=== PATIENT | female | born 1960 | race African-American/Black ===

== ENCOUNTER → 2016-06-22 | Day surgery (SDC) | payer MEDICARE, OTHER ==
[~2016-06-22] MED LIST: AMLO5TAB4 PO; ASPI-482 PO; ATOR40TA59 PO; CALC667C6 PO; CARV25TA PO; ESMOLOL 100 MG/10 ML VIAL. IV ONE; FURO-68 PO; HYDR-2868 PO; INSU100V13 SQ; IV NORMAL SALINE 1000ML BAG 1,000 ML IV ONE; IV RINGERS,LACTATED 1000ML 1,000 ML IV ONE; LOSA100T6 PO; METO10TA81 PO; OXYC5CAP3 PO; PANT40TA5 PO; PREG150C PO; PROPOFOL 20 ML IV ONE; SERT100T8 PO; hydrALAZINE 20 MG/ML VIAL. ONE
--- NOTE | 2016-06-22 10:18 | PDOC1 ---
HISTORY & PHYSICAL H&P Raven Ruiz [id number] 1960 06/19/2016 12:10 PM 06/07 [facility], [facility] OUR PATIENTS COM[facility] FIRST [address] [place], [place] [id number] Ph. [phone] Patient: Raven Ruiz Date of : 1960 Date: 06/19/2016 12:10 PM Historian: daughter Visit Type: Consult This 55 year old female presents for Abdominal pain, vomiting, diarrhea and other. History of Present Illness: 1. Abdominal pain Duration is 4 Months. Location is epigastric. The patient describes it as bloating, gnawing and sharp. Context: no pattern noted. Denies aggravating factors. Denies relieving factors. Additional information: Patient had abd pain since January. Was admitted to [facility] had abd sono, Hida scan and had very ejection fraction. Also had cholecystectomy and normal operative cholangiogram. 2. vomiting The patient's daughter describes it as clear fluid and mucus. Associated symptoms include abdominal pain and bloating. Pertinent negatives include blood in stool, vomiting and weight loss. Additional information: Has frequent episodes of vomiting. Has diabetes and has been on dialysis.. 3. diarrhea The patient's daughter describes it as loose and watery. It occurs randomly. Associated symptoms include abdominal pain, bloating and change in appetite. Pertinent negatives include blood in stool, vomiting and weight loss. Additional information: Has episodes of diarrhea periodically. 4. other Was in [facility] ER for abdominal pain and had unremarkable lab work and was advised to follow up with PCP and to see a pharmacy technician inpatient. No ct or sonogram done at [facility]. INTAKE COMMENTS: Intake Comments: Nurses Notes: Pt states she is here today with complaints of abdominal pains pt says she has had this issue now since after Thanksgiving, pt goes on to say she has vomiting/ diarrhea symptoms as well pt says the symptoms all started around the same time pt has had a Colonoscopy procedure Performed pt is uncertain of the date and year. 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, with long-term current use of insulin 02/17/2016 Essential hypertension 02/17/2016 Hypertensive kidney disease, stage 5 chronic kidney disease or end stage renal disease 02/17/2016 PAST MEDICAL/SURGICAL HISTORY (Detailed) Disease/disorder Onset Date Management Date Comments Cholecystectomy Asthma, mild persistent Cataract removal 2012 (both eyes) Coronary artery disease Diabetes type 2 with ESRD on insulin Due to ESRD/Fe deficency ESRD fistula LUE September 2015 GERD Hyperlipidemia Hypertension hypertensive renal disease with ESRD Dialysis since October 2015 partial hyst with ovaries remaining Stroke L sided weakness at 53 yo Medications (Active): Started Medication Directions Instruction Stopped 02/19/2016 Aspir-81 81 mg tablet,delayed release take 1 tablet by oral route every day 02/19/2016 atorvastatin 40 mg tablet take 1 tablet by oral route every day 05/14/2016 Coreg 25 mg tablet take 1 tablet by oral route 2 times every day with food 05/18/2016 hydralazine 50 mg tablet take 1 tablet by oral route 2 times every day with food 05/18/2016 Levemir FlexTouch 100 unit/mL (3 mL) subcutaneous insulin pen inject 10 by subcutaneous route at HS 05/14/2016 losartan 100 mg tablet take 1 tablet by oral route every day 06/12/2016 Lyrica 50 mg capsule take 1 capsule by oral route 2 times every day 02/19/2016 Nitrostat 0.[address] 1 tablet by sublingual route at the 1st sign of attack; may repeat every 5 min until relief; if pain persists after 3 tablets in 15 min, prompt medical attention is recommended 02/19/2016 Norvasc 5 mg tablet take 1 tablet by oral route every day 02/19/2016 Novolog Flexpen 100 unit/mL subcutaneous inject 10 by subcutaneous route as per insulin sliding scale protocol 06/19/2016 oxycodone 5 mg tablet take 1 tablet by oral route every 4 - 6 hours as needed 02/19/2016 pantoprazole 40 mg tablet,delayed release take 1 tablet by oral route every day 02/19/2016 sertraline 100 mg tablet take 1 tablet by oral route every day Allergies: Ingredient Reaction Medication Name Comment METFORMIN LISINOPRIL HYDROMORPHONE HCL Dilaudid AMITRIPTYLINE REVIEW OF SYSTEMS System Neg/Pos Details Constitutional Negative Chills, fever, malaise and weight loss. ENMT Negative Sore throat. Eyes Negative Double vision. Respiratory Negative Dyspnea and wheezing. Cardio Negative Chest pain and irregular heartbeat/palpitations. GI Positive Abdominal pain, Bloating, Change in appetite, See HPI. GI Negative Blood in stool, see HPI and vomiting. Negative Dysuria and hematuria. Endocrine Negative Cold intolerance and heat intolerance. Psych Negative Anxiety. Integumentary Negative Hives and rash. MS Negative Joint pain. Ced/Lymph Negative Easy bleeding and easy bruising. Allergic/Immuno Negative Food allergies. VITAL SIGNS Time BP mm/Hg Pulse /min Resp /min Temp F Ht ft Ht in Ht cm Wt lb Wt kg BMI kg/ m2 BSA m2 O2 Sat% 12:11 PM 82 16 5.0 2.50 158.75 176.40 80.014 31.75 98 MEASURED BY Time Measured by 12:11 PM Deloris Pierceman PHYSICAL EXAM: Exam Findings Details Constitutional Normal Well developed. Eyes Normal Conjunctiva - Right: Normal, Left: Normal. Sclera - Right: Normal, Left: Normal. Nasopharynx Normal Lips/teeth/gums - Normal. Neck Exam Normal Inspection - Normal. Thyroid gland - Normal. Respiratory Normal Inspection - Normal. Auscultation - Normal. Cardiovascular Normal Regular rate and rhythm. No murmurs, gallops, or rubs. Vascular Normal Pulses - Carotids: Normal, Femoral: Normal, Dorsalis pedis: Normal. Abdomen Normal Inspection - Normal. Anterior palpation - No guarding. No abdominal tenderness. No hepatic enlargement. No splenic enlargement. No hernia. No Ascites. Skin Normal Inspection - Normal. Extremity Normal No edema. Psychiatric Normal Oriented to time, place, person, and situation. Appropriate mood and effect. Assessment/Plan # Detail Type Description 1. Assessment Pain of upper abdomen (R10.10). Impression Possible causes includes PUD, Gastroparesis or CBD stone.. Patient Plan schedule EGD at [facility]. If not conclusive will give a trial of prokinetics. Plan Orders Further diagnostic evaluations ordered today include(s) EGD to be performed today. She is to schedule a follow-up visit with Ulises Ng MD upon completion of work-up 2. Assessment Common bile duct stone (K80.50). Patient Plan Schedule MRCP Plan Orders Further diagnostic evaluations ordered today include(s) Magnetic resonance cholangiopancreatography (MRCP) to be performed today. Electronically signed by: Ulises Ng MD 06/19/2016 01:21 PM Document generated by: Ulises Ng 06/19/2016 01:21 PM Yazmin Man MD, Family Practice; Margarito Arthur MD Internal Medicine; Ibis Lynn MD, Internal Medicine; Saravanan Ng MD Internal Medicine; Ulises Ng MD, Gastroenterology; Amilcar Perea MD, Rheumatology, S. Trae Brunner, Physical Medicine/[place] Audrey Damon APRN ------ 06/22/2016 Patient seen and examined. No change in history and physical. ULISES NG MD Jun 22, 2016 10:18
--- NOTE | 2016-06-22 10:46 | PDOC4 ---
GI OP Report - Dr. Dang Date/Time DATE: 06/22/16 TIME: 10:45 Attending Physician Ulises Dang MD Referring Physician Indications Epigastric abdominal pain Pre-Op See the Anesthesia note for documentation of the administered medications Procedures Upper GI endoscopy Findings - Normal esophagus. - Normal stomach. - Normal examined duodenum. - No specimens collected Plan - Discharge patient to home. - Patient has a contact number available for emergencies. The signs and symptoms of potential delayed complications were discussed with the patient. Return to normal activities tomorrow. Written discharge instructions were provided to the patient. - Resume regular diet. - Continue present medications. - Use metoclopramide 5 mg PO TID; 30 min AC. - Return to my office after studies are complete. ULISES DANG MD Jun 22, 2016 10:46
[2016-06-22 11:20] VITALS: BP 175/82
== END | disposition home or self-care (01) ==
LOC: SURG 09:11
PROVIDERS: ATTEND Internal Medicine Gastroenterology
DX: R10.13 Epigastric pain (principal); I63.9 Cerebral infarction, unspecified; G45.9 Transient cerebral ischemic attack, unspecified; I50.9 Heart failure, unspecified; I25.10 Atherosclerotic heart disease of native coronary artery without angina pectoris; I10 Essential (primary) hypertension; J45.909 Unspecified asthma, uncomplicated; Z90.49 Acquired absence of other specified parts of digestive tract; K21.9 Gastro-esophageal reflux disease without esophagitis; E11.9 Type 2 diabetes mellitus without complications; F41.9 Anxiety disorder, unspecified; F32.9 Major depressive disorder, single episode, unspecified; F10.99 Alcohol use, unspecified with unspecified alcohol-induced disorder; D64.9 Anemia, unspecified; R34 Anuria and oliguria; Z99.2 Dependence on renal dialysis; N28.9 Disorder of kidney and ureter, unspecified
CPT/HCPCS: 43235; J0360; J2704; J3490

== ENCOUNTER → 2016-06-23 | Outpatient (CLI) | payer MEDICARE, OTHER ==
[2016-06-22 11:20] VITALS: BP 175/82
[~2016-06-23] MED LIST changes: -ESMOLOL 100 MG/10 ML VIAL. IV ONE; -IV NORMAL SALINE 1000ML BAG 1,000 ML IV ONE; -IV RINGERS,LACTATED 1000ML 1,000 ML IV ONE; -PROPOFOL 20 ML IV ONE; -hydrALAZINE 20 MG/ML VIAL. ONE
--- NOTE | 2016-06-23 13:49 | RAD ---
MRCP, 06/23/2016: History: Abdominal pain, prior cholecystectomy Imaging was performed in axial and coronal planes arising a variety of imaging sequences including T2 weighted, fat-suppressed T2 weighted and opposed phase gradient echo sequences. 2-D and 3-D MRCP sequences were performed with and without respiratory gating with 3-D reconstructions produced. Many of the MRCP sequences are compromised due to patient motion artifact. The patient was unable to tolerate repeat scanning due to nausea and claustrophobia. The bile ducts are not dilated. No biliary ductal filling defect is seen. The pancreatic duct is of normal caliber. No abnormal perihepatic fluid collection is seen. The visualized portions of the liver, spleen, pancreas and both kidneys are unremarkable. IMPRESSION: 1. Status post cholecystectomy. 2. Suboptimal exam revealing no biliary tract abnormality.
== END | disposition home or self-care (01) ==
LOC: MRI 15:35
PROVIDERS: ATTEND Internal Medicine Gastroenterology
DX: R10.9 Unspecified abdominal pain (principal); Z90.49 Acquired absence of other specified parts of digestive tract
CPT/HCPCS: 74181

== ENCOUNTER 2016-07-16 15:43 | Inpatient (IN) | payer MEDICARE, OTHER ==
[~2016-07-16] VITALS: Ht 157.5 cm; Wt 84.0 kg
[~2016-07-16 15:43] MED LIST changes: +AMLO10TA2 PO; +CLON0.2T PO; +DIPH25CA58 PO; +FOLI0.8T3 PO; +HYDR100T24 PO; +ONDA4TAB12 PO; +POLY17PO5 PO; +SERT100T PO
--- NOTE | 2016-07-16 18:48 | EKG ---
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
[2016-07-16 18:57] LABS: BASO # 0.1 x10^3/uL (0.0-0.2); BASO % 1 % (0-3); EOS % 2 % (0-3); HEMATOCRIT 32.1 % (36.0-47.0); HEMOGLOBIN 10.7 g/dL (12.0-15.5); LYMPH # 1.1 x10^3/uL (1.0-4.8); LYMPH % 22 % (24-48); MEAN CORPUSCULAR HEMOGLOBIN 29 pg (25-35); MEAN CORPUSCULAR HGB CONC 33 g/dL (31-37); MEAN CORPUSCULAR VOLUME 88 fL (79-100); MONO % 8 % (0-9); NEUT % 67 % (31-73); PLATELET COUNT 304 x10^3/uL (140-400); RED BLOOD COUNT 3.65 x10^6/uL (3.50-5.40)
[2016-07-16] MEDS ORDERED: FENTANYL PF 100 MCG/2 ML VIAL. IV ONE (19:00)
[2016-07-16] MEDS ORDERED: ONDANSETRON PF 4 MG/2 ML VIAL. IV ONE (19:00)
[2016-07-16] MEDS ORDERED: IV NORMAL SALINE 500ML BAG 250 ML IV ONE (19:00)
[2016-07-16] MEDS ORDERED: IV NORMAL SALINE 250ML 250 ML IV ONE (19:00)
[2016-07-16 19:12] LABS: ALBUMIN 3.4 g/dL (3.4-5.0); ALBUMIN/GLOBULIN RATIO 1.1 (1.0-1.7); CALCIUM 9.3 mg/dL (8.5-10.1); GFR 31.4; TOTAL BILIRUBIN 0.4 mg/dL (0.2-1.0); TOTAL PROTEIN 6.5 g/dL (6.4-8.2)
[2016-07-16] MEDS ORDERED: ONDANSETRON PF 4 MG/2 ML VIAL. IV PRN (21:15)
[2016-07-16] MEDS ORDERED: IV NORMAL SALINE 1000ML BAG 1,000 ML IV SCH (21:15)
[2016-07-16] MEDS ORDERED: FENTANYL PF 100 MCG/2 ML VIAL. IV PRN (21:15)
--- NOTE | 2016-07-16 21:18 | PHYS DOC ---
Past Medical History Past Medical History: Alcoholism, Anemia, Asthma, CHF, Diabetes-Type II, High Cholesterol, Renal Disease Additional Past Medical Histor: HEPATITIS C Past Surgical History: Hysterectomy, Other Additional Past Surgical Histo: LEFT ARM A/V FISTULA Alcohol Use: None Drug Use: None Adult General Chief Complaint Chief Complaint: ABDOMINAL PAIN HPI HPI This is a 56-year-old female who presents with ongoing right upper quadrant pain that she has had before. Patient had her gallbladder removed back in January but is still having persisting pain since that time. Patient was recently admitted for malignant hypertension and right upper quadrant abdominal pain. Today her blood pressure is again elevated at 220/90 and she is still having continued right upper quadrant pain despite taking her pain medications at home. Patient has been told to follow-up with a pain specialist for her symptoms but has yet to do this. She has also had a full GI workup. She reports her pain right now is localized to her right upper quadrant primarily and rated an 8 out of 10. She reports her last bowel movement was yesterday and essentially normal. Review of Systems Review of Systems Constitutional: Denies fever or chills [] Eyes: Denies change in visual acuity, redness, or eye pain [] HENT: Denies nasal congestion or sore throat [] Respiratory: Denies cough or shortness of breath [] Cardiovascular: No additional information not addressed in HPI [] GI: Has abdominal pain, has nausea, denies vomiting, denies bloody stools or diarrhea [] : Denies dysuria or hematuria [] Musculoskeletal: Denies back pain or joint pain [] Integument: Denies rash or skin lesions [] Neurologic: Denies headache, focal weakness or sensory changes [] Endocrine: Denies polyuria or polydipsia [] Current Medications Current Medications Current Medications Medications (Trade) Dose Ordered Sig/Srinath Start Time Stop Time Status Last Admin Dose Admin Fentanyl Citrate 50 mcg 50 mcg 1X ONCE 07/16/16 19:00 07/16/16 19:01 DC 07/16/16 19:16 50 MCG Ondansetron HCl 4 mg 4 mg 1X ONCE 07/16/16 19:00 07/16/16 19:01 DC 07/16/16 19:09 4 MG Sodium Chloride (Iv Sodium Chloride 0.9% 250ml) 250 ml @ 250 mls/hr 1X ONCE 07/16/16 19:00 07/16/16 19:00 DC Sodium Chloride (Iv Sodium Chloride 0.9% 500ml Bag) 250 ml @ 250 mls/hr 1X ONCE 07/16/16 19:00 07/16/16 19:59 DC 07/16/16 19:08 250 MLS/HR Allergies Allergies Allergies Coded Allergies Type Severity Reaction Last Updated Verified amitriptyline Allergy Intermediate 06/22/16 Yes hydromorphone Allergy Intermediate 06/22/16 Yes lisinopril Allergy Intermediate 06/22/16 Yes metformin Allergy Intermediate 06/22/16 Yes I S O L A T I O N *CONTACT* Allergy Unknown 07/03/16 Yes Physical Exam Physical Exam Constitutional: Well developed, well nourished, no acute distress, non-toxic appearance. [] HENT: Normocephalic, atraumatic, bilateral external ears normal, oropharynx moist, no oral exudates, nose normal. [] Eyes: PERRLA, EOMI, conjunctiva normal, no discharge. [] Neck: Normal range of motion, no tenderness, supple, no stridor. [] Cardiovascular:Heart rate regular rhythm, no murmur [] Lungs & Thorax: Bilateral breath sounds clear to auscultation [] Abdomen: Bowel sounds normal, soft, moderate tenderness to the RUQ but also generalized, no masses, no pulsatile masses. [] Skin: Warm, dry, no erythema, no rash. [] Back: No tenderness, no CVA tenderness. [] Extremities: No tenderness, no cyanosis, no clubbing, ROM intact, no edema. [] Neurologic: Alert and oriented X 3, normal motor function, normal sensory function, no focal deficits noted. [] Psychologic: Affect normal, judgement normal, mood normal. [] Current Patient Data Vital Signs Vital Signs Date Time Temp Pulse Resp B/P Pulse Ox O2 Delivery O2 Flow Rate FiO2 07/16/16 19:16 18 99 Room Air 07/16/16 17:09 98.6 64 218/94 98.6 Lab Values Laboratory Tests Test 07/16/16 18:45 White Blood Count 5.0x10^3/uL (4.0-11.0) Red Blood Count 3.65x10^6/uL (3.50-5.40) Hemoglobin 10.7g/dL (12.0-15.5) L Hematocrit 32.1% (36.0-47.0) L Mean Corpuscular Volume 88fL (79-100) Mean Corpuscular Hemoglobin 29pg (25-35) Mean Corpuscular Hemoglobin Concent 33g/dL (31-37) Red Cell Distribution Width 15.0% (11.5-14.5) H Platelet Count 304x10^3/uL (140-400) Neutrophils (%) (Auto) 67% (31-73) Lymphocytes (%) (Auto) 22% (24-48) L Monocytes (%) (Auto) 8% (0-9) Eosinophils (%) (Auto) 2% (0-3) Basophils (%) (Auto) 1% (0-3) Neutrophils # (Auto) 3.4x10^3uL (1.8-7.7) Lymphocytes # (Auto) 1.1x10^3/uL (1.0-4.8) Monocytes # (Auto) 0.4x10^3/uL (0.0-1.1) Eosinophils # (Auto) 0.1x10^3/uL (0.0-0.7) Basophils # (Auto) 0.1x10^3/uL (0.0-0.2) Sodium Level 138mmol/L (136-145) Potassium Level 3.0mmol/L (3.5-5.1) L Chloride Level 99mmol/L (98-107) Carbon Dioxide Level 32mmol/L (21-32) Anion Gap 7 (6-14) Blood Urea Nitrogen 13mg/dL (7-20) Creatinine 2.0mg/dL (0.6-1.0) H Estimated GFR (Cockcroft-Gault) 31.4 BUN/Creatinine Ratio 7 (6-20) Glucose Level 131mg/dL (70-99) H Calcium Level 9.3mg/dL (8.5-10.1) Total Bilirubin 0.4mg/dL (0.2-1.0) Aspartate Amino Transferase (AST) 19U/L (15-37) Alanine Aminotransferase (ALT) 16U/L (14-59) Alkaline Phosphatase 104U/L (46-116) Total Protein 6.5g/dL (6.4-8.2) Albumin 3.4g/dL (3.4-5.0) Albumin/Globulin Ratio 1.1 (1.0-1.7) Lipase 64U/L (73-393) L Laboratory Tests 07/16/16 18:45 Laboratory Tests 07/16/16 18:45 EKG EKG EKG as interpreted by me shows sinus rhythm with a rate of 62 bpm. There are no acute ischemic findings on this EKG. Radiology/Procedures Radiology/Procedures [] Course & Med Decision Making Course & Med Decision Making Pertinent Labs and Imaging studies reviewed. (See chart for details) This 66-year-old female presents with ongoing abdominal pain will be admitted to the hospital for further evaluation and treatment. Multiple attempts to place an IV were made but were unsuccessful and the patient stated she would rather have a PICC line placed. In light of the fact that she had a PICC line placed on the last hospital admission this will be ordered and she'll be admitted to the hospital for pain control and better control of her blood pressure. Her case is discussed with the hospitalist, Dr. Dang, who agreed to admit the patient with renal consult. Patient does states she finished her entire dialysis appointment earlier today prior to arrival. Her labwork is unrevealing at this time. An order for a PICC line replaced upon admission was made. Upon my final reassessment, she is in no acute distress and her evening doses of blood pressure medications were ordered. Because this pain is similar to previous right upper quadrant pain she's had I do not see an indication at this time to perform any imaging Dragon Disclaimer Dragon Disclaimer This electronic medical record was generated, in whole or in part, using a voice recognition dictation system. Departure Departure Impression: Primary Impression: Malignant hypertension Additional Impression: RUQ abdominal pain Disposition: ADMITTED INPATIENT Admitting Physician: Saravanan Dang Condition: STABLE Referrals: ZAKI DANG MD (PCP) Problem Qualifiers MARTA CORRAL DO Jul 16, 2016 21:19
[2016-07-16 23:00] VITALS: BP 200/74
[2016-07-17] VITALS (8 sets, daily range): BP systolic 136–213; BP diastolic 48–74
[2016-07-17] MEDS ORDERED: CLONIDINE HCL 0.1 MG TABLET PO ONE (01:15)
[2016-07-17] MEDS: HYDROCODONE/APAP 5/325MG TABLET. PO PRN ×3 (01:20→22:57)
[2016-07-17 05:35] LABS: BASO % 1 % (0-3); EOS % 3 % (0-3); HEMATOCRIT 29.2 % (36.0-47.0); HEMOGLOBIN 9.6 g/dL (12.0-15.5); LYMPH % 24 % (24-48); MEAN CORPUSCULAR HEMOGLOBIN 30 pg (25-35); MEAN CORPUSCULAR HGB CONC 33 g/dL (31-37); MEAN CORPUSCULAR VOLUME 90 fL (79-100); MONO % 11 % (0-9); NEUT % 62 % (31-73); PLATELET COUNT 274 x10^3/uL (140-400); RED BLOOD COUNT 3.26 x10^6/uL (3.50-5.40); WHITE BLOOD COUNT 4.4 x10^3/uL (4.0-11.0)
[2016-07-17 05:45] LABS: CALCIUM 8.9 mg/dL (8.5-10.1); CREATININE 2.8 mg/dL (0.6-1.0); GFR 21.3
[2016-07-17 05:48] LABS: POTASSIUM 2.9 mmol/L (3.5-5.1)
[2016-07-17] MEDS ORDERED: POTASSIUM CHLORIDE 20 MEQ TABLET.ER. PO ONE (06:00)
[2016-07-17] MEDS: CARVEDILOL 12.5 MG TABLET PO SCH ×2 (08:35→18:02)
[2016-07-17] MEDS: CLONIDINE HCL 0.1 MG TABLET PO PRN ×2 (08:36→21:07)
[2016-07-17] MEDS ORDERED: AMLODIPINE BESYLATE 5 MG TABLET PO SCH (09:00)
[2016-07-17] MEDS ORDERED: POLYETHYLENE GLYCOL 3350 17 GM PACKET. PO SCH (09:30)
--- NOTE | 2016-07-17 10:06 | PDOC ---
Subjective: Subjective: Known to GI w/ chronic RUQ pain, readmitted w/ same and HTN. Objective: Vital Signs: Vital Signs Date Time Temp Pulse Resp B/P Pulse Ox O2 Delivery O2 Flow Rate FiO2 07/17/16 08:36 61 206/74 07/17/16 08:35 98 Room Air 07/17/16 07:00 98.2 18 98.2 Labs: Laboratory Tests Test 07/16/16 18:45 07/17/16 04:15 07/17/16 07:17 White Blood Count 5.0x10^3/uL 4.4x10^3/uL Red Blood Count 3.65x10^6/uL 3.26x10^6/uL Hemoglobin 10.7g/dL 9.6g/dL Hematocrit 32.1% 29.2% Mean Corpuscular Volume 88fL 90fL Mean Corpuscular Hemoglobin 29pg 30pg Mean Corpuscular Hemoglobin Concent 33g/dL 33g/dL Red Cell Distribution Width 15.0% 15.0% Platelet Count 304x10^3/uL 274x10^3/uL Neutrophils (%) (Auto) 67% 62% Lymphocytes (%) (Auto) 22% 24% Monocytes (%) (Auto) 8% 11% Eosinophils (%) (Auto) 2% 3% Basophils (%) (Auto) 1% 1% Neutrophils # (Auto) 3.4x10^3uL 2.7x10^3uL Lymphocytes # (Auto) 1.1x10^3/uL 1.0x10^3/uL Monocytes # (Auto) 0.4x10^3/uL 0.5x10^3/uL Eosinophils # (Auto) 0.1x10^3/uL 0.1x10^3/uL Basophils # (Auto) 0.1x10^3/uL 0.0x10^3/uL Sodium Level 138mmol/L 139mmol/L Potassium Level 3.0mmol/L 2.9mmol/L Chloride Level 99mmol/L 101mmol/L Carbon Dioxide Level 32mmol/L 31mmol/L Anion Gap 7 7 Blood Urea Nitrogen 13mg/dL 18mg/dL Creatinine 2.0mg/dL 2.8mg/dL Estimated GFR (Cockcroft-Gault) 31.4 21.3 BUN/Creatinine Ratio 7 Glucose Level 131mg/dL 111mg/dL Calcium Level 9.3mg/dL 8.9mg/dL Total Bilirubin 0.4mg/dL Aspartate Amino Transf (AST/SGOT) 19U/L Alanine Aminotransferase (ALT/SGPT) 16U/L Alkaline Phosphatase 104U/L Total Protein 6.5g/dL Albumin 3.4g/dL Albumin/Globulin Ratio 1.1 Lipase 64U/L Glucose (Fingerstick) 110mg/dL PE: GEN: NAD LUNGS: CTAB HEART: RRR ABD: NABS, S/ND, RUQ tenderness NEURO/PSYCH: A & O 3 A/P: RUQ pain, n/v -s/p cholecystectomy 01/2016, normal EGD 06/2016, unrevealing MRCP 06/2016, reports normal colonoscopy <10 years ago -h/o gastroparesis, on Reglan -abnormal CTA 07/03 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 Discussed possibility of feeding tube if she is unable to tolerate PO - she will consider. ALL GONZALEZ Jul 17, 2016 10:05
--- NOTE | 2016-07-17 10:53 | PDOC ---
Provider Note Provider Note Patient seen. History and Physical dictated. See dictation# [id number]. GAURAV DANG MD Jul 17, 2016 10:53
[2016-07-17] MEDS: LOSARTAN POTASSIUM 50 MG TABLET. PO SCH (12:08)
[2016-07-17] MEDS: SERTRALINE 50 MG TABLET. PO SCH (12:08)
[2016-07-17] MEDS: PANTOPRAZOLE 40 MG TABLET. PO SCH (12:08)
[2016-07-17] MEDS: HYDRALAZINE 50 MG TABLET PO SCH ×3 (12:09→21:07)
[2016-07-17] MEDS: METOCLOPRAMIDE 5 MG TABLET PO SCH ×2 (12:09→18:02)
[2016-07-17] MEDS: ASPIRIN ENTERIC COATED 81 MG TABLET.DR. PO SCH (12:09)
[2016-07-17] MEDS: CALCIUM ACETATE 667 MG CAPSULE PO SCH ×2 (12:09→18:01)
[2016-07-17] MEDS: OXYCODONE IR 5 MG TABLET. PO PRN ×3 (12:09→21:20)
[2016-07-17] MEDS: FOLIC/VIT B COMP W-C (RENAL) TABLET. PO SCH (12:09)
[2016-07-17] MEDS: LIDOCAINE (700MG/PATCH) PATCH. TD SCH (12:10)
--- NOTE | 2016-07-17 12:57 | RAD ---
3 views of the thoracic spine without comparison for pain in the lower back on and off for the past 2 years. Findings: There is no fracture or acute osseous or alignment abnormality of the thoracic spine. Mild degenerative changes are seen at T11-12. Intervertebral disc spaces appear well-maintained at all levels. Anterior osteophytes and posterior osteophytes are seen at the cervicothoracic junction. Impression: 1. No fracture or acute osseous or alignment abnormality of the thoracic spine. Mild degenerative changes are seen in the cervical thoracic junction as well as at T11-12.
--- NOTE | 2016-07-17 13:00 | RAD ---
3 views lumbar spine without comparison for low back pain on and off for 2 years. Findings: There are postsurgical changes of cholecystectomy. There is straightening of the normal lumbar lordosis. No fracture or acute osseous or alignment abnormality is identified. There is mild degenerative disc disease at T11-12, with anterior osteophytes and endplate sclerosis at T11. There is also mild narrowing of the L5-S1 intervertebral disc space, and there is likely moderate facet arthrosis at this level. Remaining intervertebral disc spaces appear well-maintained. Impression: 1. No fracture or acute osseous or alignment abnormality lumbar spine. 2. Multilevel degenerative changes as described. 3. Straightening of the normal lordosis.
--- NOTE | 2016-07-17 14:25 | PDOC2 ---
CONSULT Date of Consult Date of Consult DATE: 07/17/16 TIME: 14:21 Reason for Consult Reason for Consult: Renal Fialure Referring Physician Referring Physician: Dr Ng Identification/Chief Complaint Chief Complaint Abd Pain and malignant HTN Problems: Source Source: Chart review, Patient History of Present Illness Reason for Visit: as dictated Past Medical History Cardiovascular: CAD, CHF, HTN, Hyperlipidemia Pulmonary: Asthma CENTRAL NERVOUS SYSTEM: CVA GI: GERD, Other Heme/Onc: Anemia NOS Hepatobiliary: Hep A/B/C Psych: Anxiety, Depression Musculoskeletal: Osteoarthritis Renal/: Chronic renal failure Endocrine: Diabetes, Hyperparathyroidism Past Surgical History Past Surgical History: Cholecystectomy, Cataract Removal, Hysterectomy Family History Family History: Alcohol Abuse, Diabetes Social History ALCOHOL: none Drugs: None Lives: with Family Current Problem List Problem List Problems Medical Problems: (1) Hypertensive urgency Status: Acute (2) Malignant hypertension Status: Acute (3) RUQ abdominal pain Status: Acute Current Medications Current Medications Current Medications Fentanyl Citrate 50 mcg 50 mcg 1X ONCE IV Last administered on 07/16/16 19:16 ; Start 07/16/16 at 19:00; Stop 07/16/16 at 19:01; Status DC Sodium Chloride (Iv Sodium Chloride 0.9% 250ml) 250 ml @ 250 mls/hr 1X ONCE IV ; Start 07/16/16 at 19:00; Stop 07/16/16 at 19:00; Status DC Ondansetron HCl 4 mg 4 mg 1X ONCE IV Last administered on 07/16/16 19:09; Start 07/16/16 at 19:00; Stop 07/16/16 at 19:01; Status DC Sodium Chloride (Iv Sodium Chloride 0.9% 500ml Bag) 250 ml @ 250 mls/hr 1X ONCE IV Last administered on 07/16/16 19:08; Start 07/16/16 at 19:00; Stop at 19:59; Status DC Ondansetron HCl (Zofran) 4 mg PRN Q8HRS PRN IV NAUSEA/VOMITING; Start 07/16/16 at 21:15; Stop 07/17/16 at 21:14 Fentanyl Citrate 50 mcg 50 mcg PRN Q2HR PRN IV PAIN; Start 07/16/16 at 21:15; Stop 07/17/16 at 21:14 Sodium Chloride (Iv Sodium Chloride 0.9% 1000ml Bag) 1,000 ml @ 75 mls/hr [id number] IV ; Start 07/16/16 at 21:15; Stop 07/17/16 at 09:07; Status DC Carvedilol (Coreg) 25 mg BIDWMEALS PO Last administered on 07/17/16 08:35; Start 07/17/16 at 08:00 Amlodipine Besylate (Norvasc) 5 mg DAILY PO Last administered on 07/17/16 08: 36; Start 07/17/16 at 09:00; Stop 07/17/16 at 09:14; Status DC Clonidine HCl (Catapres) 0.2 mg 1X ONCE PO Last administered on 07/17/16 01: 20; Start 07/17/16 at 01:15; Stop 07/17/16 at 01:16; Status DC Clonidine HCl (Catapres) 0.1 mg PRN Q6HRS PRN PO SEE PARAMETERS Last administered on 07/17/16 08:36; Start 07/17/16 at 01:00 Acetaminophen/ Hydrocodone Bitart (Lortab 5/325) 1 tab PRN Q6HRS PRN PO PAIN Last administered on 07/17/16 08:35; Start 07/17/16 at 01:00 Potassium Chloride (Klor-Con) 40 meq 1X ONCE PO Last administered on 06:20; Start 07/17/16 at 06:00; Stop 07/17/16 at 06:01; Status DC Amlodipine Besylate (Norvasc) 10 mg DAILY PO ; Start 07/18/16 at 09:00 Aspirin (Ecotrin) 81 mg DAILY PO Last administered on 07/17/16 12:09; Start at 09:30 Atorvastatin Calcium (Lipitor) 40 mg HS PO ; Start 07/17/16 at 21:00 Calcium Acetate (Phoslo) 1,334 mg TIDWMEALS PO Last administered on 07/17/16 12:09; Start 07/17/16 at 12:00 Clonidine HCl (Catapres) 0.2 mg Q8HRS PO ; Start 07/17/16 at 14:00 Diphenhydramine HCl (Benadryl) 25 mg PRN Q6HRS PRN PO ITCHING; Start 07/17/16 at 09:00 Folic Acid/ Multivitamins/Vit B12 (Nephro-Donny) 1 tab DAILY PO Last administered on 07/17/16 12:09; Start 07/17/16 at 09:30 Metoclopramide HCl (Reglan) 5 mg TIDAC PO Last administered on 07/17/16 12:09 ; Start 07/17/16 at 11:30 Ondansetron HCl (Zofran Odt) 4 mg PRN Q8HRS PRN PO NAUSEA/VOMITING; Start 07/17 at 09:00 Pantoprazole Sodium (Protonix) 40 mg DAILYAC PO Last administered on 07/17/16 12:08; Start 07/17/16 at 09:30 Polyethylene Glycol (miraLAX PACKET) 17 gm BID PO ; Start 07/17/16 at 09:30; Stop 07/17/16 at 10:32; Status DC Non-Formulary Medication 25 mg BIDWMEALS PO ; Start 07/17/16 at 17:00; Status UNV Hydralazine HCl (Apresoline) 100 mg TID PO Last administered on 07/17/16 12:09 ; Start 07/17/16 at 09:30 Insulin Detemir (Levemir) 10 units QHS SQ ; Start 07/17/16 at 21:00 Losartan Potassium (Cozaar) 100 mg DAILY PO Last administered on 07/17/16 12: 08; Start 07/17/16 at 09:30 Oxycodone HCl (Roxicodone) 5 mg PRN QID PRN PO PAIN Last administered on 12:09; Start 07/17/16 at 09:30 Sertraline HCl (Zoloft) 100 mg DAILY PO Last administered on 07/17/16 12:08; Start 07/17/16 at 09:30 Lidocaine (Lidoderm) 1 patch DAILY TD Last administered on 07/17/16 12:10; Start 07/17/16 at 09:30 Gabapentin (Neurontin) 100 mg QHS PO ; Start 07/17/16 at 21:00 Active Scripts Active Miralax (Polyethylene Glycol 3350) 17 Gm Powd.pack 17 Gm PO BID Ondansetron Odt (Ondansetron) 4 Mg Tab.rapdis 4 Mg PO PRN Q8HRS PRN Hydralazine Hcl 100 Mg Tablet 1 Tab PO TID Nephro-Donny Tablet (Folic Acid/Vitamin B Comp W-C) 0.8 Mg Tablet 1 Tab PO DAILY Benadryl (Diphenhydramine Hcl) 25 Mg Capsule 25 Mg PO PRN Q6HRS PRN Clonidine Hcl 0.2 Mg Tablet 0.2 Mg PO Q8HRS Amlodipine Besylate 10 Mg Tablet 10 Mg PO DAILY Reported Zoloft (Sertraline Hcl) 100 Mg Tablet 1 Tab PO DAILY Pantoprazole Sodium 40 Mg Tablet.dr 1 Tab PO DAILY Reglan (Metoclopramide Hcl) 10 Mg Tablet 5 Mg PO TIDAC Oxycodone Hcl 5 Mg Capsule 1 Cap PO QID PRN Phoslo (Calcium Acetate) 667 Mg Capsule 1,334 Mg PO TIDWMEALS Losartan Potassium 100 Mg Tablet 100 Mg PO DAILY Levemir (Insulin Detemir) 100 Unit/1 Ml Vial 10 Unit SQ HS Coreg (Carvedilol) 25 Mg Tablet 25 Mg PO BIDWMEALS Atorvastatin Calcium 40 Mg Tablet 40 Mg PO HS Aspir 81 (Aspirin) 81 Mg Tablet.dr 81 Mg PO DAILY Allergies Allergies: Coded Allergies: amitriptyline (Verified Allergy, Intermediate, 06/22/16) hydromorphone (Verified Allergy, Intermediate, 06/22/16) lisinopril (Verified Allergy, Intermediate, 06/22/16) metformin (Verified Allergy, Intermediate, 06/22/16) I S O L A T I O N *CONTACT* (Verified Allergy, Unknown, 07/03/16) mrsa ROS Review of System GEN: no Fevers no Chills EYES: no new Visual Complaints ENT: no EN Drainage no Hearing deficiets CVS: no Orthopnea no CP RESP: no SOB no DAWSON GI: min Nausea + Vomiting + Abd Pain - RUQ : no Dysuria no Urgency HEME: no easy bruising no Palp Ly Nodes NEURO no Focal Weakness no Sz PSYCH: no Suicidal Ideation no Depression SKIN: no Rashes ENDO: no Polyuria or Polydipsia no Hot/Cold Intolerance MU SK: ch Arthraigia no Myalgia Physical Exam Physical Exam General Appearance: Awake Alert Oriented x 3 In no Distress Eyes: VIsion Unchanged Conjunctiva Normal EN: No EN Drainage Mucous Memb. moist Neck: no JVD no JVP Supple no Thyromegaly CVS: S1 S2 osft Murmur No Gallop No Rub no Edema Resp: no Rales no Rhonchi no Acc. Muscle use GI: BAS +ve NO Bruit Min RUQ Tender Non Distended : no CVA tenderness; no Suprapubic Tenderness SKIN: no Rashes Breast Exam deferred Mu.Sk: Adequate ROM no Muscle Atrophy Heme: Unable to palpate Obvious LAD no palp Splenomegaly NEURO: Good Strength and Tone Cranial Nerves II - XII grossly intact Psych: not Depressed no Active hallucination Vital Signs Vital Signs Date Time Temp Pulse Resp B/P Pulse Ox O2 Delivery O2 Flow Rate FiO2 07/17/16 13:59 97 Room Air 07/17/16 12:09 60 213/48 07/17/16 11:00 98.4 18 98.4 Assessment & Plan ESRD Current FLuid and E-lyte status does not necessitate emergent need for Dialysis. Will re-evaluate for Dialysis in am and continue on TTSat schedule. Anemia: Epogen ocne BP are better controlled Transfuse with next HD as needed. Malignant HTN: Current BP meds reviewed. See orders for changes. NIKHIL/ Bone & Mineral: follow phos and reval Low K - Repalce Abd pain - RUQ Us and KUB - ? due to Hepalomegaly from Hep C vs Celiac stenosis as noted on previous Angio Discussed Plan of Care and prognosis etc. at length with pt Labs Labs Laboratory Tests Test 07/16/16 18:45 07/17/16 04:15 07/17/16 07:17 07/17/16 11:42 White Blood Count 5.0x10^3/uL (4.0-11.0) 4.4x10^3/uL (4.0-11.0) Red Blood Count 3.65x10^6/uL (3.50-5.40) 3.26x10^6/uL (3.50-5.40) Hemoglobin 10.7g/dL (12.0-15.5) 9.6g/dL (12.0-15.5) Hematocrit 32.1% (36.0-47.0) 29.2% (36.0-47.0) Mean Corpuscular Volume 88fL (79-100) 90fL (79-100) Mean Corpuscular Hemoglobin 29pg (25-35) 30pg (25-35) Mean Corpuscular Hemoglobin Concent 33g/dL (31-37) 33g/dL (31-37) Red Cell Distribution Width 15.0% (11.5-14.5) 15.0% (11.5-14.5) Platelet Count 304x10^3/uL (140-400) 274x10^3/uL (140-400) Neutrophils (%) (Auto) 67% (31-73) 62% (31-73) Lymphocytes (%) (Auto) 22% (24-48) 24% (24-48) Monocytes (%) (Auto) 8% (0-9) 11% (0-9) Eosinophils (%) (Auto) 2% (0-3) 3% (0-3) Basophils (%) (Auto) 1% (0-3) 1% (0-3) Neutrophils # (Auto) 3.4x10^3uL (1.8-7.7) 2.7x10^3uL (1.8-7.7) Lymphocytes # (Auto) 1.1x10^3/uL (1.0-4.8) 1.0x10^3/uL (1.0-4.8) Monocytes # (Auto) 0.4x10^3/uL (0.0-1.1) 0.5x10^3/uL (0.0-1.1) Eosinophils # (Auto) 0.1x10^3/uL (0.0-0.7) 0.1x10^3/uL (0.0-0.7) Basophils # (Auto) 0.1x10^3/uL (0.0-0.2) 0.0x10^3/uL (0.0-0.2) Sodium Level 138mmol/L (136-145) 139mmol/L (136-145) Potassium Level 3.0mmol/L (3.5-5.1) 2.9mmol/L (3.5-5.1) Chloride Level 99mmol/L (98-107) 101mmol/L (98-107) Carbon Dioxide Level 32mmol/L (21-32) 31mmol/L (21-32) Anion Gap 7 (6-14) 7 (6-14) Blood Urea Nitrogen 13mg/dL (7-20) 18mg/dL (7-20) Creatinine 2.0mg/dL (0.6-1.0) 2.8mg/dL (0.6-1.0) Estimated GFR (Cockcroft-Gault) 31.4 21.3 BUN/Creatinine Ratio 7 (6-20) Glucose Level 131mg/dL (70-99) 111mg/dL (70-99) Calcium Level 9.3mg/dL (8.5-10.1) 8.9mg/dL (8.5-10.1) Total Bilirubin 0.4mg/dL (0.2-1.0) Aspartate Amino Transf (AST/SGOT) 19U/L (15-37) Alanine Aminotransferase (ALT/SGPT) 16U/L (14-59) Alkaline Phosphatase 104U/L (46-116) Total Protein 6.5g/dL (6.4-8.2) Albumin 3.4g/dL (3.4-5.0) Albumin/Globulin Ratio 1.1 (1.0-1.7) Lipase 64U/L (73-393) Glucose (Fingerstick) 110mg/dL (70-99) 140mg/dL (70-99) Laboratory Tests Test 07/16/16 18:45 07/17/16 04:15 07/17/16 07:17 07/17/16 11:42 White Blood Count 5.0x10^3/uL (4.0-11.0) 4.4x10^3/uL (4.0-11.0) Red Blood Count 3.65x10^6/uL (3.50-5.40) 3.26x10^6/uL (3.50-5.40) Hemoglobin 10.7g/dL (12.0-15.5) 9.6g/dL (12.0-15.5) Hematocrit 32.1% (36.0-47.0) 29.2% (36.0-47.0) Mean Corpuscular Volume 88fL (79-100) 90fL (79-100) Mean Corpuscular Hemoglobin 29pg (25-35) 30pg (25-35) Mean Corpuscular Hemoglobin Concent 33g/dL (31-37) 33g/dL (31-37) Red Cell Distribution Width 15.0% (11.5-14.5) 15.0% (11.5-14.5) Platelet Count 304x10^3/uL (140-400) 274x10^3/uL (140-400) Neutrophils (%) (Auto) 67% (31-73) 62% (31-73) Lymphocytes (%) (Auto) 22% (24-48) 24% (24-48) Monocytes (%) (Auto) 8% (0-9) 11% (0-9) Eosinophils (%) (Auto) 2% (0-3) 3% (0-3) Basophils (%) (Auto) 1% (0-3) 1% (0-3) Neutrophils # (Auto) 3.4x10^3uL (1.8-7.7) 2.7x10^3uL (1.8-7.7) Lymphocytes # (Auto) 1.1x10^3/uL (1.0-4.8) 1.0x10^3/uL (1.0-4.8) Monocytes # (Auto) 0.4x10^3/uL (0.0-1.1) 0.5x10^3/uL (0.0-1.1) Eosinophils # (Auto) 0.1x10^3/uL (0.0-0.7) 0.1x10^3/uL (0.0-0.7) Basophils # (Auto) 0.1x10^3/uL (0.0-0.2) 0.0x10^3/uL (0.0-0.2) Sodium Level 138mmol/L (136-145) 139mmol/L (136-145) Potassium Level 3.0mmol/L (3.5-5.1) 2.9mmol/L (3.5-5.1) Chloride Level 99mmol/L (98-107) 101mmol/L (98-107) Carbon Dioxide Level 32mmol/L (21-32) 31mmol/L (21-32) Anion Gap 7 (6-14) 7 (6-14) Blood Urea Nitrogen 13mg/dL (7-20) 18mg/dL (7-20) Creatinine 2.0mg/dL (0.6-1.0) 2.8mg/dL (0.6-1.0) Estimated GFR (Cockcroft-Gault) 31.4 21.3 BUN/Creatinine Ratio 7 (6-20) Glucose Level 131mg/dL (70-99) 111mg/dL (70-99) Calcium Level 9.3mg/dL (8.5-10.1) 8.9mg/dL (8.5-10.1) Total Bilirubin 0.4mg/dL (0.2-1.0) Aspartate Amino Transf (AST/SGOT) 19U/L (15-37) Alanine Aminotransferase (ALT/SGPT) 16U/L (14-59) Alkaline Phosphatase 104U/L (46-116) Total Protein 6.5g/dL (6.4-8.2) Albumin 3.4g/dL (3.4-5.0) Albumin/Globulin Ratio 1.1 (1.0-1.7) Lipase 64U/L (73-393) Glucose (Fingerstick) 110mg/dL (70-99) 140mg/dL (70-99) Images Images Previous Visceral Angio 1. Proximal segment of celiac trunk is critically narrowed, and demonstrates a "fish-hook" configuration, raising the question of underlying median arcuate ligament syndrome. 2. Widely patent SMA provides brisk, well-developed collateral perfusion to celiac distribution, suggesting that the proximal celiac occlusive disease may well be chronic. 3. Attempted recanalization of the critically narrowed proximal celiac trunk proved unsuccessful, despite utilization of a variety of catheters, coaxial microcatheters, and microguidewires, as described. 4. If the patient's right upper quadrant abdominal pain persists, vascular surgery consultation could be considered. ELISEO BA MD Jul 17, 2016 14:25
[2016-07-17] MEDS ORDERED: MAGNESIUM SULFATE 2GM 50 ML IV PRN (14:30)
--- NOTE | 2016-07-17 14:38 | PDOC ---
SUBJECTIVE Subjective Abdominal pain OBJECTIVE Objective This is a 56-year-old female who presents with ongoing right upper quadrant pain that she has had before. Patient had her gallbladder removed back in January but is still having persisting pain since that time. Patient was recently admitted for malignant hypertension and right upper quadrant abdominal pain. She is still having continued right upper quadrant pain despite taking her pain medications at home. Vital Signs Vital Signs Date Time Temp Pulse Resp B/P Pulse Ox O2 Delivery O2 Flow Rate FiO2 07/17/16 13:59 97 Room Air 07/17/16 12:09 97 Room Air 07/17/16 12:09 60 213/48 07/17/16 12:08 60 213/48 07/17/16 11:00 98.4 60 18 213/48 97 98.4 07/17/16 08:36 61 206/74 07/17/16 08:36 61 206/74 07/17/16 08:35 98 Room Air 07/17/16 08:35 61 206/74 07/17/16 08:00 Room Air 07/17/16 07:00 98.2 61 18 206/74 98 Room Air 98.2 07/17/16 03:00 97.7 53 18 165/48 96 Room Air 97.7 07/17/16 03:00 97.7 53 18 165/48 96 Room Air 97.7 07/17/16 01:57 Room Air 07/17/16 01:20 Room Air 07/17/16 01:20 57 200/74 07/16/16 23:00 98.6 57 20 200/74 100 Room Air 98.6 07/16/16 23:00 98.6 57 20 200/74 100 Room Air 98.6 07/16/16 21:30 56 14 227/99 97 Room Air 07/16/16 21:00 60 16 222/92 98 07/16/16 20:30 58 18 222/92 99 07/16/16 20:00 56 16 211/85 99 07/16/16 19:16 18 99 Room Air 07/16/16 19:00 60 16 230/95 99 07/16/16 18:30 70 24 222/112 100 07/16/16 18:00 58 17 235/102 100 Room Air 07/16/16 17:09 98.6 64 14 218/94 100 Room Air 98.6 I & O Intake and Output 07/17/16 07:00 Intake Total 25 ml Balance 25 ml Intake IV Total 25 ml # Voids 2 ASSESSMENT/PLAN Assessment/Plan REC:GI workup in progress- Maintain p.o. oxycodone as at home. Consider addition of Duragesic patch 25mcg q 72 hrs Problems: COMMENT Lab Laboratory Tests Test 07/16/16 18:45 07/17/16 04:15 07/17/16 07:17 07/17/16 11:42 White Blood Count 5.0x10^3/uL (4.0-11.0) 4.4x10^3/uL (4.0-11.0) Red Blood Count 3.65x10^6/uL (3.50-5.40) 3.26x10^6/uL (3.50-5.40) Hemoglobin 10.7g/dL (12.0-15.5) 9.6g/dL (12.0-15.5) Hematocrit 32.1% (36.0-47.0) 29.2% (36.0-47.0) Mean Corpuscular Volume 88fL (79-100) 90fL (79-100) Mean Corpuscular Hemoglobin 29pg (25-35) 30pg (25-35) Mean Corpuscular Hemoglobin Concent 33g/dL (31-37) 33g/dL (31-37) Red Cell Distribution Width 15.0% (11.5-14.5) 15.0% (11.5-14.5) Platelet Count 304x10^3/uL (140-400) 274x10^3/uL (140-400) Neutrophils (%) (Auto) 67% (31-73) 62% (31-73) Lymphocytes (%) (Auto) 22% (24-48) 24% (24-48) Monocytes (%) (Auto) 8% (0-9) 11% (0-9) Eosinophils (%) (Auto) 2% (0-3) 3% (0-3) Basophils (%) (Auto) 1% (0-3) 1% (0-3) Neutrophils # (Auto) 3.4x10^3uL (1.8-7.7) 2.7x10^3uL (1.8-7.7) Lymphocytes # (Auto) 1.1x10^3/uL (1.0-4.8) 1.0x10^3/uL (1.0-4.8) Monocytes # (Auto) 0.4x10^3/uL (0.0-1.1) 0.5x10^3/uL (0.0-1.1) Eosinophils # (Auto) 0.1x10^3/uL (0.0-0.7) 0.1x10^3/uL (0.0-0.7) Basophils # (Auto) 0.1x10^3/uL (0.0-0.2) 0.0x10^3/uL (0.0-0.2) Sodium Level 138mmol/L (136-145) 139mmol/L (136-145) Potassium Level 3.0mmol/L (3.5-5.1) 2.9mmol/L (3.5-5.1) Chloride Level 99mmol/L (98-107) 101mmol/L (98-107) Carbon Dioxide Level 32mmol/L (21-32) 31mmol/L (21-32) Anion Gap 7 (6-14) 7 (6-14) Blood Urea Nitrogen 13mg/dL (7-20) 18mg/dL (7-20) Creatinine 2.0mg/dL (0.6-1.0) 2.8mg/dL (0.6-1.0) Estimated GFR (Cockcroft-Gault) 31.4 21.3 BUN/Creatinine Ratio 7 (6-20) Glucose Level 131mg/dL (70-99) 111mg/dL (70-99) Calcium Level 9.3mg/dL (8.5-10.1) 8.9mg/dL (8.5-10.1) Total Bilirubin 0.4mg/dL (0.2-1.0) Aspartate Amino Transf (AST/SGOT) 19U/L (15-37) Alanine Aminotransferase (ALT/SGPT) 16U/L (14-59) Alkaline Phosphatase 104U/L (46-116) Total Protein 6.5g/dL (6.4-8.2) Albumin 3.4g/dL (3.4-5.0) Albumin/Globulin Ratio 1.1 (1.0-1.7) Lipase 64U/L (73-393) Glucose (Fingerstick) 110mg/dL (70-99) 140mg/dL (70-99) QUINCY YARBROUGH MD Jul 17, 2016 14:38
[2016-07-17] MEDS: CLONIDINE HCL 0.2 MG TABLET PO SCH ×2 (15:22→21:06)
--- NOTE | 2016-07-17 16:12 | RAD ---
Indication right upper quadrant abdominal pain. A single KUB was obtained. No recent plain film imaging is available. Note is made of recent CT and MR examinations. Abdominal gas pattern is normal. No organomegaly or abnormal calculi are seen. Clips are noted in the gallbladder fossa IMPRESSION: No acute or significant finding seen on KUB
[2016-07-17] MEDS ORDERED: NON FORMULARY ITEM (Carvedilol (Coreg) 25 MG) PO SCH (17:00)
--- NOTE | 2016-07-17 17:53 | PDOC ---
Provider Note Provider Note Vascular Consult dictated Imp: Chronic abd. pain Essentially occluded celiac artery , due to median arrcuate ligament syndrome and or scar tissue within vessel from the chronic compression, definately not atherosclerosis Likely the cause of the chronic pain Plan:Discussed and recommended release of compression and or bypass to improve blood flow to stomach and liver OK to discharge , will try to schedule for PATRICIA CHAVEZ MD Jul 17, 2016 17:53
[2016-07-17] MEDS: ONDANSETRON ODT 4 MG TAB.RAPDIS PO PRN ×2 (18:02→18:12)
[2016-07-17] MEDS ORDERED: CALCIUM CARBONATE 500 MG TAB.CHEW PO PRN (18:15)
[2016-07-17] MEDS ORDERED: GABAPENTIN 100 MG CAPSULE. PO SCH (21:00)
[2016-07-17] MEDS: ATORVASTATIN CALCIUM 40 MG TABLET. PO SCH (21:06)
[2016-07-17] MEDS: INSULIN DETEMIR 300 UNITS/3 ML INSULN.PEN. SQ SCH (21:21)
[2016-07-17] MEDS: DIPHENHYDRAMINE HCL 25 MG CAPSULE PO PRN (22:56)
--- NOTE | 2016-07-18 02:56 | HP ---
ADMIT DATE: 07/16/2016 HISTORY OF PRESENT ILLNESS: This is 56 years old -[place] female with chronic right-sided upper abdominal pain who has had cholecystectomy that did not relieve her pain and who was recently admitted for malignant hypertension and abdominal pain, came back to the Emergency Room with same complaints. She was again noted to have very high blood pressure of 220/90 and because of the abdominal pain and the uncontrolled malignant hypertension, the patient was admitted for further evaluation and management. The patient has also been complaining of diarrhea for a few weeks and her potassium was noted to be 2.9 and was given potassium supplement. REVIEW OF SYSTEMS: At present time, the patient is complaining of diarrhea, continues to have chronic right-sided abdominal pain that is located in one area only and it does not radiate. During the previous admission, the patient had a prolonged gastric emptying time and the patient was given metoclopramide. The patient also had been getting MiraLax for constipation, but now she has diarrhea. She has had episodic high blood pressure. She also has some anxiety. Previously, she had a CT scan of abdomen and pelvis. She also had a CT angiogram of the abdomen and pelvis and it revealed celiac artery stenosis. However, Dr. Cole could not open the stenosis or stent it, but it was noted that she had excellent collateral circulation and it was not needed to open it and it did not appear to be the cause of her abdominal pain. I also tried a Lidoderm patch, but the patient could not get it on a regular basis because of the insurance restrictions. Because of her multiple problems, the patient has been admitted for further evaluation and management. PAST MEDICAL HISTORY: 1. As noted earlier, patient had extensive workup for the ongoing right upper quadrant pain, both inpatient as well as outpatient. 2. 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 3. Malignant hypertension. 4. Diabetes mellitus type 2, well controlled. 5. End-stage renal disease secondary to hypertensive kidney disease. 6. Asthma. 7. Coronary artery disease. 8. Hyperlipidemia. 9. Gastroesophageal reflux disease. 10. Hyperlipidemia. 11. 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 12. Moderate chronic protein-calorie malnutrition. She has a history of secondary hyperparathyroidism, end-stage renal disease, on hemodialysis, anemia due to renal insufficiency and iron deficiency, gastroesophageal reflux disease and asthma. PAST SURGICAL HISTORY: The patient had left upper extremity fistula, cataract removal, 2012, left upper extremity fistula was placed in September 2015, hysterectomy, partial, she still has ovaries. FAMILY HISTORY: Father having alcohol abuse and mother has diabetes. SOCIAL HISTORY: No history of smoking, alcoholism or drug abuse. MEDICATIONS: Reviewed. ALLERGIES: The patient is ALLERGIC TO AMITRIPTYLINE, HYDROMORPHONE, LISINOPRIL AND METFORMIN. PHYSICAL EXAMINATION: VITAL SIGNS: On admission, temperature 98.6, pulse 57 per minute, blood pressure initially was 222/92 mmHg, this morning was 206/74 mmHg. EYES: Pupils reacting to light. Conjunctivae pale. Sclerae white. GENERAL: The patient is not in any acute distress. She is somewhat anxious. HENT: Unremarkable. NECK: Supple. JVP normal. No thyromegaly. Trachea midline. LUNGS: Clear. CARDIOVASCULAR SYSTEM: S1, S2 regular. ABDOMEN: Soft. The patient has one area in the right upper quadrant, which is nontender, but she has chronic pain in this area. There is no guarding, no rigidity. Bowel sounds present. EXTREMITIES: No edema. CENTRAL NERVOUS SYSTEM: Anxious, somewhat depressed. No acute changes noted. LABORATORY FINDINGS: WBC count 5, hemoglobin 10.7. Potassium 3, BUN 13, creatinine 2. This morning, BUN is 18, creatinine 2.8, potassium was 2.9, lipase 64, albumin 3.4. IMPRESSION: 1. Malignant hypertension. Continue present treatment and p.r.n. clonidine. 2. Hypokalemia. This is due to diarrhea. Replace potassium. The patient is going to get dialysis tomorrow. 3. End-stage renal disease, on hemodialysis. 4. Right upper quadrant abdominal pain, etiology not clear. The patient had extensive workup including MRCP, CT scan of abdomen and pelvis, CT angiography, gastric emptying time, hepatobiliary scan, ultrasound, etc. There is a possibility that it could be a neuropathic pain. I have reordered a Lidoderm patch and I also started gabapentin at bedtime. 5. Diarrhea. I will discontinue MiraLax at this time and hold metoclopramide, if she continues to have persistent diarrhea. 6. Gastric motility disorder. 7. Coronary artery disease. 8. Congestive heart failure. 9. Hyperlipidemia. 10. Asthma. 11. Anxiety. 12. Cerebrovascular accident with left-sided weakness at age 53. 13. Gastroesophageal reflux disease. 14. Anemia, due to both chronic renal insufficiency and iron deficiency. 15. Depression. 16. Osteoarthritis. 17. Diabetes mellitus. 18. Secondary hyperparathyroidism. PLAN: As noted above, potassium replacements, discontinue MiraLax, hold metoclopramide if needed, start gabapentin and Lidoderm patch. Monitor blood pressure closely. Consult Dr. Hernandez for nephrology evaluation and management and Dr. Pennington for GI evaluation and management. I will also consult Dr. 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 The patient is supposed to see him as outpatient. I will try to see if he can come and see her while she is here. For details, please review the orders. GAURAV DANG MD DR: FARZAD/faraz JOB#: [id number] / [id number]
[2016-07-18 03:15] VITALS: BP 155/53
[2016-07-18 05:56] LABS: BASO % 1 % (0-3); EOS % 2 % (0-3); HEMATOCRIT 27.4 % (36.0-47.0); HEMOGLOBIN 9.2 g/dL (12.0-15.5); LYMPH # 1.4 x10^3/uL (1.0-4.8); LYMPH % 34 % (24-48); MEAN CORPUSCULAR HEMOGLOBIN 30 pg (25-35); MEAN CORPUSCULAR HGB CONC 34 g/dL (31-37); MEAN CORPUSCULAR VOLUME 89 fL (79-100); MONO % 9 % (0-9); NEUT % 54 % (31-73); PLATELET COUNT 253 x10^3/uL (140-400); RED BLOOD COUNT 3.07 x10^6/uL (3.50-5.40); RED CELL DISTRIBUTION WIDTH 14.6 % (11.5-14.5)
[2016-07-18] MEDS: OXYCODONE IR 5 MG TABLET. PO PRN ×2 (06:17→12:48)
[2016-07-18] MEDS: CLONIDINE HCL 0.2 MG TABLET PO SCH ×3 (06:18→20:46)
[2016-07-18] MEDS: CLONIDINE HCL 0.1 MG TABLET PO PRN (06:18)
[2016-07-18 06:26] LABS: ALBUMIN 2.5 g/dL (3.4-5.0); ALBUMIN/GLOBULIN RATIO 0.9 (1.0-1.7); CALCIUM 9.5 mg/dL (8.5-10.1); CREATININE 4.1 mg/dL (0.6-1.0); GFR 13.7; PHOSPHORUS 2.5 mg/dL (2.6-4.7); TOTAL BILIRUBIN 0.3 mg/dL (0.2-1.0); TOTAL PROTEIN 5.4 g/dL (6.4-8.2)
[2016-07-18 06:31] LABS: POTASSIUM 2.9 mmol/L (3.5-5.1)
[2016-07-18] MEDS ORDERED: POTASSIUM CHLORIDE 20 MEQ TABLET.ER. PO ONE ×2 (07:15→12:00)
[2016-07-18] MEDS: METOCLOPRAMIDE 5 MG TABLET PO SCH ×3 (07:30→18:40)
[2016-07-18] MEDS ORDERED: LIDOCAINE 1% PF 2 ML VIAL. ONE (07:46)
[2016-07-18] MEDS ORDERED: IV NORMAL SALINE 1000ML BAG 1,000 ML IV PRN ×2 (07:49)
[2016-07-18] MEDS ORDERED: DIPHENHYDRAMINE 50 MG/ML VIAL IV PRN ×2 (08:00)
[2016-07-18] MEDS ORDERED: LIDOCAINE 1% PF 2 ML VIAL. ID ONE (08:00)
[2016-07-18] MEDS ORDERED: CLONIDINE HCL 0.1 MG TABLET PO PRN (08:00)
[2016-07-18] MEDS ORDERED: DIALYSIS PATIENT. MC PRN (08:00)
[2016-07-18] MEDS ORDERED: LABETALOL 20 MG/4 ML DISP.SYRIN. IVP PRN (08:00)
[2016-07-18] MEDS: CARVEDILOL 12.5 MG TABLET PO SCH ×2 (08:00→18:41)
[2016-07-18] MEDS: CALCIUM ACETATE 667 MG CAPSULE PO SCH ×3 (08:00→18:40)
[2016-07-18] MEDS: HYDRALAZINE 50 MG TABLET PO SCH ×3 (09:00→20:45)
--- NOTE | 2016-07-18 09:26 | RAD ---
ABDOMEN LTD History:Right upper quadrant pain, recent gallbladder surgery, question hepatomegaly Comparison: 01/26/2016 Findings:Multiple sonographic images of the abdomen are submitted. Pancreas is not well visualized due to bowel gas, no obvious fluid collection in this area. There is segmental visualization of the inferior vena cava. Hepatic echotexture is within normal limits, no focal hepatic mass demonstrated. Right lobe of the liver is within normal limits at 12.1 cm longitudinal. Common bile duct is within normal limits 0.4 cm. There has been interval cholecystectomy. Right kidney measured 4.7 x 9.3 x 4.6 cm, no hydronephrosis, questionably slightly echogenic. No significant free fluid is demonstrated. Impression: 1.There has been cholecystectomy. Pancreas is not well visualized. Liver is not enlarged.
[2016-07-18] MEDS: FOLIC/VIT B COMP W-C (RENAL) TABLET. PO SCH (12:29)
[2016-07-18] MEDS: AMLODIPINE BESYLATE 10 MG TABLET PO SCH (12:30)
[2016-07-18] MEDS: ASPIRIN ENTERIC COATED 81 MG TABLET.DR. PO SCH (12:30)
[2016-07-18] MEDS: LOSARTAN POTASSIUM 50 MG TABLET. PO SCH (12:30)
[2016-07-18] MEDS: SERTRALINE 50 MG TABLET. PO SCH (12:32)
[2016-07-18] MEDS: PANTOPRAZOLE 40 MG TABLET. PO SCH (12:32)
[2016-07-18] MEDS: LIDOCAINE (700MG/PATCH) PATCH. TD SCH (12:49)
--- NOTE | 2016-07-18 13:13 | PDOC ---
IM PROGRESS NOTES- Subjective Subjective Has abdominal pain.Diarrhea is improving. Objective Vitals Vital Signs Date Time Temp Pulse Resp B/P Pulse Ox O2 Delivery O2 Flow Rate FiO2 07/18/16 12:48 100 Room Air 07/18/16 12:30 58 155/53 07/18/16 03:15 98.1 16 98.1 Input & Output Intake and Output 07/18/16 07:00 Intake Total 458 ml Balance 458 ml Intake Oral 458 ml # Voids 2 Physical Exam Physical Exam General appearance - alert,well appearing, and in no distress and oriented to person, place, and time Mental Status - alert, oriented to person, place, and time, affect appropriate to mood Head - normal Chest - clear to auscultation, no wheezes, rales or rhonchi, symmetric air entry Heart - S1 and S2 normal Abdomen - soft, nontender, nondistended, no masses or organomegaly Neurological - alert and oriented Musculoskeletal - no muscular tenderness noted Extremities - no pedal edema Skin - warm and dry Labs Laboratory Tests Test 07/16/16 18:45 07/16/16 22:57 07/17/16 04:15 07/17/16 07:17 White Blood Count 5.0x10^3/uL (4.0-11.0) 4.4x10^3/uL (4.0-11.0) Red Blood Count 3.65x10^6/uL (3.50-5.40) 3.26x10^6/uL (3.50-5.40) Hemoglobin 10.7g/dL (12.0-15.5) 9.6g/dL (12.0-15.5) Hematocrit 32.1% (36.0-47.0) 29.2% (36.0-47.0) Mean Corpuscular Volume 88fL (79-100) 90fL (79-100) Mean Corpuscular Hemoglobin 29pg (25-35) 30pg (25-35) Mean Corpuscular Hemoglobin Concent 33g/dL (31-37) 33g/dL (31-37) Red Cell Distribution Width 15.0% (11.5-14.5) 15.0% (11.5-14.5) Platelet Count 304x10^3/uL (140-400) 274x10^3/uL (140-400) Neutrophils (%) (Auto) 67% (31-73) 62% (31-73) Lymphocytes (%) (Auto) 22% (24-48) 24% (24-48) Monocytes (%) (Auto) 8% (0-9) 11% (0-9) Eosinophils (%) (Auto) 2% (0-3) 3% (0-3) Basophils (%) (Auto) 1% (0-3) 1% (0-3) Neutrophils # (Auto) 3.4x10^3uL (1.8-7.7) 2.7x10^3uL (1.8-7.7) Lymphocytes # (Auto) 1.1x10^3/uL (1.0-4.8) 1.0x10^3/uL (1.0-4.8) Monocytes # (Auto) 0.4x10^3/uL (0.0-1.1) 0.5x10^3/uL (0.0-1.1) Eosinophils # (Auto) 0.1x10^3/uL (0.0-0.7) 0.1x10^3/uL (0.0-0.7) Basophils # (Auto) 0.1x10^3/uL (0.0-0.2) 0.0x10^3/uL (0.0-0.2) Sodium Level 138mmol/L (136-145) 139mmol/L (136-145) Potassium Level 3.0mmol/L (3.5-5.1) 2.9mmol/L (3.5-5.1) Chloride Level 99mmol/L (98-107) 101mmol/L (98-107) Carbon Dioxide Level 32mmol/L (21-32) 31mmol/L (21-32) Anion Gap 7 (6-14) 7 (6-14) Blood Urea Nitrogen 13mg/dL (7-20) 18mg/dL (7-20) Creatinine 2.0mg/dL (0.6-1.0) 2.8mg/dL (0.6-1.0) Estimated GFR (Cockcroft-Gault) 31.4 21.3 BUN/Creatinine Ratio 7 (6-20) Glucose Level 131mg/dL (70-99) 111mg/dL (70-99) Calcium Level 9.3mg/dL (8.5-10.1) 8.9mg/dL (8.5-10.1) Total Bilirubin 0.4mg/dL (0.2-1.0) Aspartate Amino Transf (AST/SGOT) 19U/L (15-37) Alanine Aminotransferase (ALT/SGPT) 16U/L (14-59) Alkaline Phosphatase 104U/L (46-116) Total Protein 6.5g/dL (6.4-8.2) Albumin 3.4g/dL (3.4-5.0) Albumin/Globulin Ratio 1.1 (1.0-1.7) Lipase 64U/L (73-393) Nasal Screen MRSA (PCR) Positive (Negative) Glucose (Fingerstick) 110mg/dL (70-99) Test 07/17/16 11:42 07/17/16 16:52 07/17/16 20:35 07/18/16 04:32 Glucose (Fingerstick) 140mg/dL (70-99) 152mg/dL (70-99) 156mg/dL (70-99) White Blood Count 4.0x10^3/uL (4.0-11.0) Red Blood Count 3.07x10^6/uL (3.50-5.40) Hemoglobin 9.2g/dL (12.0-15.5) Hematocrit 27.4% (36.0-47.0) Mean Corpuscular Volume 89fL (79-100) Mean Corpuscular Hemoglobin 30pg (25-35) Mean Corpuscular Hemoglobin Concent 34g/dL (31-37) Red Cell Distribution Width 14.6% (11.5-14.5) Platelet Count 253x10^3/uL (140-400) Neutrophils (%) (Auto) 54% (31-73) Lymphocytes (%) (Auto) 34% (24-48) Monocytes (%) (Auto) 9% (0-9) Eosinophils (%) (Auto) 2% (0-3) Basophils (%) (Auto) 1% (0-3) Neutrophils # (Auto) 2.2x10^3uL (1.8-7.7) Lymphocytes # (Auto) 1.4x10^3/uL (1.0-4.8) Monocytes # (Auto) 0.3x10^3/uL (0.0-1.1) Eosinophils # (Auto) 0.1x10^3/uL (0.0-0.7) Basophils # (Auto) 0.0x10^3/uL (0.0-0.2) Test 07/18/16 05:30 Sodium Level 136mmol/L (136-145) Potassium Level 2.9mmol/L (3.5-5.1) Chloride Level 101mmol/L (98-107) Carbon Dioxide Level 32mmol/L (21-32) Anion Gap 3 (6-14) Blood Urea Nitrogen 30mg/dL (7-20) Creatinine 4.1mg/dL (0.6-1.0) Estimated GFR (Cockcroft-Gault) 13.7 BUN/Creatinine Ratio 7 (6-20) Glucose Level 48mg/dL (70-99) Calcium Level 9.5mg/dL (8.5-10.1) Phosphorus Level 2.5mg/dL (2.6-4.7) Magnesium Level 2.0mg/dL (1.8-2.4) Total Bilirubin 0.3mg/dL (0.2-1.0) Aspartate Amino Transf (AST/SGOT) 16U/L (15-37) Alanine Aminotransferase (ALT/SGPT) 14U/L (14-59) Alkaline Phosphatase 78U/L (46-116) Total Protein 5.4g/dL (6.4-8.2) Albumin 2.5g/dL (3.4-5.0) Albumin/Globulin Ratio 0.9 (1.0-1.7) Laboratory Tests Test 07/17/16 16:52 07/17/16 20:35 07/18/16 04:32 07/18/16 05:30 Glucose (Fingerstick) 152mg/dL (70-99) 156mg/dL (70-99) White Blood Count 4.0x10^3/uL (4.0-11.0) Red Blood Count 3.07x10^6/uL (3.50-5.40) Hemoglobin 9.2g/dL (12.0-15.5) Hematocrit 27.4% (36.0-47.0) Mean Corpuscular Volume 89fL (79-100) Mean Corpuscular Hemoglobin 30pg (25-35) Mean Corpuscular Hemoglobin Concent 34g/dL (31-37) Red Cell Distribution Width 14.6% (11.5-14.5) Platelet Count 253x10^3/uL (140-400) Neutrophils (%) (Auto) 54% (31-73) Lymphocytes (%) (Auto) 34% (24-48) Monocytes (%) (Auto) 9% (0-9) Eosinophils (%) (Auto) 2% (0-3) Basophils (%) (Auto) 1% (0-3) Neutrophils # (Auto) 2.2x10^3uL (1.8-7.7) Lymphocytes # (Auto) 1.4x10^3/uL (1.0-4.8) Monocytes # (Auto) 0.3x10^3/uL (0.0-1.1) Eosinophils # (Auto) 0.1x10^3/uL (0.0-0.7) Basophils # (Auto) 0.0x10^3/uL (0.0-0.2) Sodium Level 136mmol/L (136-145) Potassium Level 2.9mmol/L (3.5-5.1) Chloride Level 101mmol/L (98-107) Carbon Dioxide Level 32mmol/L (21-32) Anion Gap 3 (6-14) Blood Urea Nitrogen 30mg/dL (7-20) Creatinine 4.1mg/dL (0.6-1.0) Estimated GFR (Cockcroft-Gault) 13.7 BUN/Creatinine Ratio 7 (6-20) Glucose Level 48mg/dL (70-99) Calcium Level 9.5mg/dL (8.5-10.1) Phosphorus Level 2.5mg/dL (2.6-4.7) Magnesium Level 2.0mg/dL (1.8-2.4) Total Bilirubin 0.3mg/dL (0.2-1.0) Aspartate Amino Transf (AST/SGOT) 16U/L (15-37) Alanine Aminotransferase (ALT/SGPT) 14U/L (14-59) Alkaline Phosphatase 78U/L (46-116) Total Protein 5.4g/dL (6.4-8.2) Albumin 2.5g/dL (3.4-5.0) Albumin/Globulin Ratio 0.9 (1.0-1.7) Meds Current Medications Amlodipine Besylate (Norvasc) 10 mg DAILY PO Last administered on 07/18/16 12: 30; Start 07/18/16 at 09:00 Atorvastatin Calcium (Lipitor) 40 mg HS PO Last administered on 07/17/16 21:06 ; Start 07/17/16 at 21:00 Calcium Carbonate/ Glycine (Tums) 1,000 mg PRN AFTMEALHC PRN PO INDIGESTION Last administered on 07/17/16 18:11; Start 07/17/16 at 18:15 Clonidine HCl (Catapres) 0.2 mg Q8HRS PO Last administered on 07/18/16 06:18; Start 07/17/16 at 14:00 Clonidine HCl 0.1 mg 0.1 mg 1X PRN PRN PO SBP > 180; Start 07/18/16 at 08:00; Stop 07/19/16 at 07:59 Diphenhydramine HCl (Benadryl) 25 mg 1X PRN PRN IV ITCHING; Start 07/18/16 at 08:00; Stop 07/19/16 at 07:59 Diphenhydramine HCl (Benadryl) 25 mg 1X PRN PRN IV ITCHING; Start 07/18/16 at 08:00; Stop 07/19/16 at 07:59 Gabapentin 100 mg 100 mg QHS PO Last administered on 07/17/16 21:06; Start 03/23 at 21:00 Info (PHARMACY MONITORING -- do not chart) 1 each PRN DAILY PRN MC SEE COMMENTS ; Start 07/18/16 at 08:00 Insulin Detemir (Levemir) 10 units QHS SQ Last administered on 07/17/16 21:21 ; Start 07/17/16 at 21:00 Labetalol HCl (Normodyne) 10 mg PRN Q1HR PRN IVP SBP > 180; Start 07/18/16 at 08:00; Stop 07/19/16 at 07:59 Lidocaine HCl (Xylocaine-Mpf 1% Vial) 2 ml 1X ONCE ID Last administered on 07:50; Start 07/18/16 at 08:00; Stop 07/18/16 at 08:01; Status DC Lidocaine HCl 2 ml 2 ml STK-MED ONCE .ROUTE ; Start 07/18/16 at 07:46; Stop 04/23 at 07:47; Status DC Magnesium Sulfate/ Dextrose (Magnesium Sulfate PREMIX 2GM) 50 ml @ 25 mls/hr PRN DAILY PRN IV for Mag < 1.7 on am labs; Start 07/17/16 at 14:30 Non-Formulary Medication 25 mg BIDWMEALS PO ; Start 07/17/16 at 17:00; Status UNV Potassium Chloride (Klor-Con) 40 meq 1X ONCE PO Last administered on 12:32; Start 07/18/16 at 07:15; Stop 07/18/16 at 07:16; Status DC Potassium Chloride (Klor-Con) 40 meq 1X ONCE PO Last administered on 12:49; Start 07/18/16 at 12:00; Stop 07/18/16 at 12:01; Status DC Sodium Chloride (Iv Sodium Chloride 0.9% 1000ml Bag) 1,000 ml @ 400 mls/hr Q2H30M PRN IV PATENCY; Start 07/18/16 at 07:49; Stop 07/18/16 at 19:48 Sodium Chloride (Iv Sodium Chloride 0.9% 1000ml Bag) 1,000 ml @ 1,000 mls/hr Q1H PRN IV hypotension; Start 07/18/16 at 07:49; Stop 07/18/16 at 13:48 Assessment Assessment 1. Malignant hypertension. Continue present treatment and p.r.n. clonidine. 2. Hypokalemia. This is due to diarrhea. Replace potassium. The patient is going to get dialysis tomorrow. 3. End-stage renal disease, on hemodialysis. 4. Right upper quadrant abdominal pain, etiology not clear. The patient had extensive workup including MRCP, CT scan of abdomen and pelvis, CT angiography, gastric emptying time, hepatobiliary scan, ultrasound, etc. There is a possibility that it could be a neuropathic pain. I have reordered a Lidoderm patch and I also started gabapentin at bedtime. 5. Diarrhea. I will discontinue MiraLax at this time and hold metoclopramide, if she continues to have persistent diarrhea. 6. Gastric motility disorder. 7. Coronary artery disease. 8. Congestive heart failure. 9. Hyperlipidemia. 10. Asthma. 11. Anxiety. 12. Cerebrovascular accident with left-sided weakness at age 53. 13. Gastroesophageal reflux disease. 14. Anemia, due to both chronic renal insufficiency and iron deficiency. 15. Depression. 16. Osteoarthritis. 17. Diabetes mellitus. 18. Secondary hyperparathyroidism. PLAN: As noted above, potassium replacements, discontinue MiraLax, hold metoclopramide if needed, start gabapentin and Lidoderm patch. Monitor blood pressure closely. Consult Dr. Hernandez for nephrology evaluation and management and Dr. Pennington for GI evaluation and management. Duragesic patch for pain per . Per - Essentially occluded celiac artery , due to median arrcuate ligament syndrome and or scar tissue within vessel from the chronic compression , definately not atherosclerosis Likely the cause of the chronic pain. Surgery planned for Wednesday. Severe hypokalemia- diarrhea improving. Replace K. HD with 4 K. Discharge tomorrow. Plan Plan For more details regarding further plans, please refer to the orders. GAURAV DANG MD Jul 18, 2016 13:13
--- NOTE | 2016-07-18 13:38 | PDOC ---
G I PROGRESS NOTE Reason for Follow-up abd pain Subjective no new complaints Physical Exam Lungs clear CV S1 S2 ABD +BS, soft, nontender Review of Relevant I have reviewed the following items richard (where applicable) has been applied. Labs Laboratory Tests Test 07/16/16 18:45 07/16/16 22:57 07/17/16 04:15 07/17/16 07:17 White Blood Count 5.0x10^3/uL (4.0-11.0) 4.4x10^3/uL (4.0-11.0) Red Blood Count 3.65x10^6/uL (3.50-5.40) 3.26x10^6/uL (3.50-5.40) Hemoglobin 10.7g/dL (12.0-15.5) 9.6g/dL (12.0-15.5) Hematocrit 32.1% (36.0-47.0) 29.2% (36.0-47.0) Mean Corpuscular Volume 88fL (79-100) 90fL (79-100) Mean Corpuscular Hemoglobin 29pg (25-35) 30pg (25-35) Mean Corpuscular Hemoglobin Concent 33g/dL (31-37) 33g/dL (31-37) Red Cell Distribution Width 15.0% (11.5-14.5) 15.0% (11.5-14.5) Platelet Count 304x10^3/uL (140-400) 274x10^3/uL (140-400) Neutrophils (%) (Auto) 67% (31-73) 62% (31-73) Lymphocytes (%) (Auto) 22% (24-48) 24% (24-48) Monocytes (%) (Auto) 8% (0-9) 11% (0-9) Eosinophils (%) (Auto) 2% (0-3) 3% (0-3) Basophils (%) (Auto) 1% (0-3) 1% (0-3) Neutrophils # (Auto) 3.4x10^3uL (1.8-7.7) 2.7x10^3uL (1.8-7.7) Lymphocytes # (Auto) 1.1x10^3/uL (1.0-4.8) 1.0x10^3/uL (1.0-4.8) Monocytes # (Auto) 0.4x10^3/uL (0.0-1.1) 0.5x10^3/uL (0.0-1.1) Eosinophils # (Auto) 0.1x10^3/uL (0.0-0.7) 0.1x10^3/uL (0.0-0.7) Basophils # (Auto) 0.1x10^3/uL (0.0-0.2) 0.0x10^3/uL (0.0-0.2) Sodium Level 138mmol/L (136-145) 139mmol/L (136-145) Potassium Level 3.0mmol/L (3.5-5.1) 2.9mmol/L (3.5-5.1) Chloride Level 99mmol/L (98-107) 101mmol/L (98-107) Carbon Dioxide Level 32mmol/L (21-32) 31mmol/L (21-32) Anion Gap 7 (6-14) 7 (6-14) Blood Urea Nitrogen 13mg/dL (7-20) 18mg/dL (7-20) Creatinine 2.0mg/dL (0.6-1.0) 2.8mg/dL (0.6-1.0) Estimated GFR (Cockcroft-Gault) 31.4 21.3 BUN/Creatinine Ratio 7 (6-20) Glucose Level 131mg/dL (70-99) 111mg/dL (70-99) Calcium Level 9.3mg/dL (8.5-10.1) 8.9mg/dL (8.5-10.1) Total Bilirubin 0.4mg/dL (0.2-1.0) Aspartate Amino Transf (AST/SGOT) 19U/L (15-37) Alanine Aminotransferase (ALT/SGPT) 16U/L (14-59) Alkaline Phosphatase 104U/L (46-116) Total Protein 6.5g/dL (6.4-8.2) Albumin 3.4g/dL (3.4-5.0) Albumin/Globulin Ratio 1.1 (1.0-1.7) Lipase 64U/L (73-393) Nasal Screen MRSA (PCR) Positive (Negative) Glucose (Fingerstick) 110mg/dL (70-99) Test 07/17/16 11:42 07/17/16 16:52 07/17/16 20:35 07/18/16 04:32 Glucose (Fingerstick) 140mg/dL (70-99) 152mg/dL (70-99) 156mg/dL (70-99) White Blood Count 4.0x10^3/uL (4.0-11.0) Red Blood Count 3.07x10^6/uL (3.50-5.40) Hemoglobin 9.2g/dL (12.0-15.5) Hematocrit 27.4% (36.0-47.0) Mean Corpuscular Volume 89fL (79-100) Mean Corpuscular Hemoglobin 30pg (25-35) Mean Corpuscular Hemoglobin Concent 34g/dL (31-37) Red Cell Distribution Width 14.6% (11.5-14.5) Platelet Count 253x10^3/uL (140-400) Neutrophils (%) (Auto) 54% (31-73) Lymphocytes (%) (Auto) 34% (24-48) Monocytes (%) (Auto) 9% (0-9) Eosinophils (%) (Auto) 2% (0-3) Basophils (%) (Auto) 1% (0-3) Neutrophils # (Auto) 2.2x10^3uL (1.8-7.7) Lymphocytes # (Auto) 1.4x10^3/uL (1.0-4.8) Monocytes # (Auto) 0.3x10^3/uL (0.0-1.1) Eosinophils # (Auto) 0.1x10^3/uL (0.0-0.7) Basophils # (Auto) 0.0x10^3/uL (0.0-0.2) Test 07/18/16 05:30 Sodium Level 136mmol/L (136-145) Potassium Level 2.9mmol/L (3.5-5.1) Chloride Level 101mmol/L (98-107) Carbon Dioxide Level 32mmol/L (21-32) Anion Gap 3 (6-14) Blood Urea Nitrogen 30mg/dL (7-20) Creatinine 4.1mg/dL (0.6-1.0) Estimated GFR (Cockcroft-Gault) 13.7 BUN/Creatinine Ratio 7 (6-20) Glucose Level 48mg/dL (70-99) Calcium Level 9.5mg/dL (8.5-10.1) Phosphorus Level 2.5mg/dL (2.6-4.7) Magnesium Level 2.0mg/dL (1.8-2.4) Total Bilirubin 0.3mg/dL (0.2-1.0) Aspartate Amino Transf (AST/SGOT) 16U/L (15-37) Alanine Aminotransferase (ALT/SGPT) 14U/L (14-59) Alkaline Phosphatase 78U/L (46-116) Total Protein 5.4g/dL (6.4-8.2) Albumin 2.5g/dL (3.4-5.0) Albumin/Globulin Ratio 0.9 (1.0-1.7) Laboratory Tests Test 07/17/16 16:52 07/17/16 20:35 07/18/16 04:32 07/18/16 05:30 Glucose (Fingerstick) 152mg/dL (70-99) 156mg/dL (70-99) White Blood Count 4.0x10^3/uL (4.0-11.0) Red Blood Count 3.07x10^6/uL (3.50-5.40) Hemoglobin 9.2g/dL (12.0-15.5) Hematocrit 27.4% (36.0-47.0) Mean Corpuscular Volume 89fL (79-100) Mean Corpuscular Hemoglobin 30pg (25-35) Mean Corpuscular Hemoglobin Concent 34g/dL (31-37) Red Cell Distribution Width 14.6% (11.5-14.5) Platelet Count 253x10^3/uL (140-400) Neutrophils (%) (Auto) 54% (31-73) Lymphocytes (%) (Auto) 34% (24-48) Monocytes (%) (Auto) 9% (0-9) Eosinophils (%) (Auto) 2% (0-3) Basophils (%) (Auto) 1% (0-3) Neutrophils # (Auto) 2.2x10^3uL (1.8-7.7) Lymphocytes # (Auto) 1.4x10^3/uL (1.0-4.8) Monocytes # (Auto) 0.3x10^3/uL (0.0-1.1) Eosinophils # (Auto) 0.1x10^3/uL (0.0-0.7) Basophils # (Auto) 0.0x10^3/uL (0.0-0.2) Sodium Level 136mmol/L (136-145) Potassium Level 2.9mmol/L (3.5-5.1) Chloride Level 101mmol/L (98-107) Carbon Dioxide Level 32mmol/L (21-32) Anion Gap 3 (6-14) Blood Urea Nitrogen 30mg/dL (7-20) Creatinine 4.1mg/dL (0.6-1.0) Estimated GFR (Cockcroft-Gault) 13.7 BUN/Creatinine Ratio 7 (6-20) Glucose Level 48mg/dL (70-99) Calcium Level 9.5mg/dL (8.5-10.1) Phosphorus Level 2.5mg/dL (2.6-4.7) Magnesium Level 2.0mg/dL (1.8-2.4) Total Bilirubin 0.3mg/dL (0.2-1.0) Aspartate Amino Transf (AST/SGOT) 16U/L (15-37) Alanine Aminotransferase (ALT/SGPT) 14U/L (14-59) Alkaline Phosphatase 78U/L (46-116) Total Protein 5.4g/dL (6.4-8.2) Albumin 2.5g/dL (3.4-5.0) Albumin/Globulin Ratio 0.9 (1.0-1.7) Medications Current Medications Fentanyl Citrate 50 mcg 50 mcg 1X ONCE IV Last administered on 07/16/16t 19:16 ; Start 07/16/16 at 19:00; Stop 07/16/16 at 19:01; Status DC Sodium Chloride (Iv Sodium Chloride 0.9% 250ml) 250 ml @ 250 mls/hr 1X ONCE IV ; Start 07/16/16 at 19:00; Stop 07/16/16 at 19:00; Status DC Ondansetron HCl 4 mg 4 mg 1X ONCE IV Last administered on 07/16/16 19:09; Start 07/16/16 at 19:00; Stop 07/16/16 at 19:01; Status DC Sodium Chloride (Iv Sodium Chloride 0.9% 500ml Bag) 250 ml @ 250 mls/hr 1X ONCE IV Last administered on 07/16/16 19:08; Start 07/16/16 at 19:00; Stop at 19:59; Status DC Ondansetron HCl (Zofran) 4 mg PRN Q8HRS PRN IV NAUSEA/VOMITING; Start 07/16/16 at 21:15; Stop 07/17/16 at 21:14; Status DC Fentanyl Citrate 50 mcg 50 mcg PRN Q2HR PRN IV PAIN; Start 07/16/16 at 21:15; Stop 07/17/16 at 21:14; Status DC Sodium Chloride (Iv Sodium Chloride 0.9% 1000ml Bag) 1,000 ml @ 75 mls/hr [id number] IV ; Start 07/16/16 at 21:15; Stop 07/17/16 at 09:07; Status DC Carvedilol (Coreg) 25 mg BIDWMEALS PO Last administered on 07/17/16 18:02; Start 07/17/16 at 08:00 Amlodipine Besylate (Norvasc) 5 mg DAILY PO Last administered on 07/17/16 08: 36; Start 07/17/16 at 09:00; Stop 07/17/16 at 09:14; Status DC Clonidine HCl (Catapres) 0.2 mg 1X ONCE PO Last administered on 07/17/16 01: 20; Start 07/17/16 at 01:15; Stop 07/17/16 at 01:16; Status DC Clonidine HCl (Catapres) 0.1 mg PRN Q6HRS PRN PO SEE PARAMETERS Last administered on 07/18/16 06:18; Start 07/17/16 at 01:00 Acetaminophen/ Hydrocodone Bitart (Lortab 5/325) 1 tab PRN Q6HRS PRN PO PAIN Last administered on 07/17/16 22:57; Start 07/17/16 at 01:00 Potassium Chloride (Klor-Con) 40 meq 1X ONCE PO Last administered on 06:20; Start 07/17/16 at 06:00; Stop 07/17/16 at 06:01; Status DC Amlodipine Besylate (Norvasc) 10 mg DAILY PO Last administered on 07/18/16 12: 30; Start 07/18/16 at 09:00 Aspirin (Ecotrin) 81 mg DAILY PO Last administered on 07/18/16 12:30; Start at 09:30 Atorvastatin Calcium (Lipitor) 40 mg HS PO Last administered on 07/17/16 21:06 ; Start 07/17/16 at 21:00 Calcium Acetate (Phoslo) 1,334 mg TIDWMEALS PO Last administered on 07/18/16 12:32; Start 07/17/16 at 12:00 Clonidine HCl (Catapres) 0.2 mg Q8HRS PO Last administered on 07/18/16 06:18; Start 07/17/16 at 14:00 Diphenhydramine HCl (Benadryl) 25 mg PRN Q6HRS PRN PO ITCHING Last administered on 07/17/16 22:56; Start 07/17/16 at 09:00 Folic Acid/ Multivitamins/Vit B12 (Nephro-Donny) 1 tab DAILY PO Last administered on 07/18/16 12:29; Start 07/17/16 at 09:30 Metoclopramide HCl (Reglan) 5 mg TIDAC PO Last administered on 07/18/16 12:29 ; Start 07/17/16 at 11:30 Ondansetron HCl (Zofran Odt) 4 mg PRN Q8HRS PRN PO NAUSEA/VOMITING Last administered on 07/17/16 18:12; Start 07/17/16 at 09:00 Pantoprazole Sodium (Protonix) 40 mg DAILYAC PO Last administered on 07/18/16 12:32; Start 07/17/16 at 09:30 Polyethylene Glycol (miraLAX PACKET) 17 gm BID PO ; Start 07/17/16 at 09:30; Stop 07/17/16 at 10:32; Status DC Non-Formulary Medication 25 mg BIDWMEALS PO ; Start 07/17/16 at 17:00; Status UNV Hydralazine HCl (Apresoline) 100 mg TID PO Last administered on 07/17/16 21:07 ; Start 07/17/16 at 09:30 Insulin Detemir (Levemir) 10 units QHS SQ Last administered on 07/17/16 21:21 ; Start 07/17/16 at 21:00 Losartan Potassium (Cozaar) 100 mg DAILY PO Last administered on 07/18/16 12: 30; Start 07/17/16 at 09:30 Oxycodone HCl (Roxicodone) 5 mg PRN QID PRN PO PAIN Last administered on 12:48; Start 07/17/16 at 09:30 Sertraline HCl (Zoloft) 100 mg DAILY PO Last administered on 07/18/16 12:32; Start 07/17/16 at 09:30 Lidocaine (Lidoderm) 1 patch DAILY TD Last administered on 07/18/16 12:49; Start 07/17/16 at 09:30 Gabapentin 100 mg 100 mg QHS PO Last administered on 07/17/16 21:06; Start 03/23 at 21:00; Stop 07/18/16 at 13:14; Status DC Magnesium Sulfate/ Dextrose (Magnesium Sulfate PREMIX 2GM) 50 ml @ 25 mls/hr PRN DAILY PRN IV for Mag < 1.7 on am labs; Start 07/17/16 at 14:30 Calcium Carbonate/ Glycine (Tums) 1,000 mg PRN AFTMEALHC PRN PO INDIGESTION Last administered on 07/17/16 18:11; Start 07/17/16 at 18:15 Potassium Chloride (Klor-Con) 40 meq 1X ONCE PO Last administered on 12:32; Start 07/18/16 at 07:15; Stop 07/18/16 at 07:16; Status DC Potassium Chloride (Klor-Con) 40 meq 1X ONCE PO Last administered on 12:49; Start 07/18/16 at 12:00; Stop 07/18/16 at 12:01; Status DC Lidocaine HCl 2 ml 2 ml STK-MED ONCE .ROUTE ; Start 07/18/16 at 07:46; Stop 04/23 at 07:47; Status DC Sodium Chloride (Iv Sodium Chloride 0.9% 1000ml Bag) 1,000 ml @ 1,000 mls/hr Q1H PRN IV hypotension; Start 07/18/16 at 07:49; Stop 07/18/16 at 13:48 Diphenhydramine HCl (Benadryl) 25 mg 1X PRN PRN IV ITCHING; Start 07/18/16 at 08:00; Stop 07/19/16 at 07:59 Diphenhydramine HCl (Benadryl) 25 mg 1X PRN PRN IV ITCHING; Start 07/18/16 at 08:00; Stop 07/19/16 at 07:59 Labetalol HCl (Normodyne) 10 mg PRN Q1HR PRN IVP SBP > 180; Start 07/18/16 at 08:00; Stop 07/19/16 at 07:59 Clonidine HCl 0.1 mg 0.1 mg 1X PRN PRN PO SBP > 180; Start 07/18/16 at 08:00; Stop 07/19/16 at 07:59 Sodium Chloride (Iv Sodium Chloride 0.9% 1000ml Bag) 1,000 ml @ 400 mls/hr Q2H30M PRN IV PATENCY; Start 07/18/16 at 07:49; Stop 07/18/16 at 19:48 Info (PHARMACY MONITORING -- do not chart) 1 each PRN DAILY PRN MC SEE COMMENTS ; Start 07/18/16 at 08:00 Lidocaine HCl (Xylocaine-Mpf 1% Vial) 2 ml 1X ONCE ID Last administered on t 07:50; Start 07/18/16 at 08:00; Stop 07/18/16 at 08:01; Status DC Fentanyl (Duragesic 25mcg/ Hr Patch) 1 patch Q3DAYS TD ; Start 07/18/16 at 14:00 Active Scripts Active Miralax (Polyethylene Glycol 3350) 17 Gm Powd.pack 17 Gm PO BID Ondansetron Odt (Ondansetron) 4 Mg Tab.rapdis 4 Mg PO PRN Q8HRS PRN Hydralazine Hcl 100 Mg Tablet 1 Tab PO TID Nephro-Donny Tablet (Folic Acid/Vitamin B Comp W-C) 0.8 Mg Tablet 1 Tab PO DAILY Benadryl (Diphenhydramine Hcl) 25 Mg Capsule 25 Mg PO PRN Q6HRS PRN Clonidine Hcl 0.2 Mg Tablet 0.2 Mg PO Q8HRS Amlodipine Besylate 10 Mg Tablet 10 Mg PO DAILY Reported Zoloft (Sertraline Hcl) 100 Mg Tablet 1 Tab PO DAILY Pantoprazole Sodium 40 Mg Tablet. 1 Tab PO DAILY Reglan (Metoclopramide Hcl) 10 Mg Tablet 5 Mg PO TIDAC Oxycodone Hcl 5 Mg Capsule 1 Cap PO QID PRN Phoslo (Calcium Acetate) 667 Mg Capsule 1,334 Mg PO TIDWMEALS Losartan Potassium 100 Mg Tablet 100 Mg PO DAILY Levemir (Insulin Detemir) 100 Unit/1 Ml Vial 10 Unit SQ HS Coreg (Carvedilol) 25 Mg Tablet 25 Mg PO BIDWMEALS Atorvastatin Calcium 40 Mg Tablet 40 Mg PO HS Aspir 81 (Aspirin) 81 Mg Tablet.dr 81 Mg PO DAILY Vitals/I & O Vital Sign - Last 24 Hours 07/17/16 07/17/16 07/17/16 07/17/16 13:59 14:59 15:22 15:23 Temp 98.4 98.4 Pulse 58 58 58 Resp 18 B/P 201/63 201/63 201/63 Pulse Ox 97 97 07/17/16 07/17/16 07/17/16 07/17/16 15:50 15:51 18:02 18:02 Pulse 70 61 61 B/P 136/65 191/68 191/68 Pulse Ox 97 O2 Delivery Room Air 07/17/16 07/17/16 07/17/16 07/17/16 19:10 20:00 21:06 21:07 Temp 97.7 97.7 Pulse 57 57 57 Resp 16 B/P 203/62 203/62 203/62 Pulse Ox 98 O2 Delivery Room Air Room Air 07/17/16 07/17/16 07/17/16 07/17/16 21:07 21:20 22:57 23:12 Temp 98.4 98.4 Pulse 57 63 Resp 16 B/P 203/62 185/69 Pulse Ox 98 O2 Delivery Room Air Room Air Room Air 07/18/16 07/18/16 07/18/16 07/18/16 01:11 03:15 06:17 06:18 Temp 98.1 98.1 Pulse 58 58 Resp 16 B/P 155/53 155/53 Pulse Ox 100 O2 Delivery Room Air Room Air Room Air 2/04/2307/18/16 07/18/16 07/18/16 06:18 07:30 08:00 12:30 Pulse 58 58 B/P 155/53 155/53 O2 Delivery Room Air Room Air 07/18/16 07/18/16 12:30 12:48 Pulse 58 B/P 155/53 Pulse Ox 100 O2 Delivery Room Air Intake and Output 07/17/16 07/17/16 07/18/16 15:00 23:00 07:00 Intake Total 118 ml 340 ml Balance 118 ml 340 ml Problem List Problems Medical Problems: (1) Hypertensive urgency Status: Acute (2) Malignant hypertension Status: Acute (3) RUQ abdominal pain Status: Acute Assessment 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
[2016-07-18] MEDS ORDERED: FENTANYL 25MCG/HR PATCH. TD SCH (14:00)
--- NOTE | 2016-07-18 14:39 | PDOC ---
PROGRESS NOTES Subjective Subjective SEEN IN FOLLOW UP OF ESRD Objective Objective Vital Signs Date Time Temp Pulse Resp B/P Pulse Ox O2 Delivery O2 Flow Rate FiO2 07/18/16 12:48 100 Room Air 07/18/16 12:30 58 155/53 07/18/16 03:15 98.1 16 98.1 Intake and Output 07/18/16 07:00 Intake Total 458 ml Balance 458 ml Intake Oral 458 ml # Voids 2 Physical Exam Abdomen: Normal bowel sounds, Soft, No tenderness, No hepatosplenomegaly, No masses Heart: Regular rate, Normal S1, Normal S2, No murmurs, Gallops Extremities: No clubbing, No cyanosis, No edema, Normal pulses, No tenderness/ swelling General: Alert Lungs: Clear to auscultation, Normal air movement Diagnosis RENAL FAILURE: ESRD Assessment Assessment Problems Medical Problems: (1) Hypertensive urgency Status: Acute (2) Malignant hypertension Status: Acute (3) RUQ abdominal pain Status: Acute Plan Plan of Care DIALYSIS TODAY AND TOLERATED WELL Comment Review of Relevant I have reviewed the following items richard (where applicable) has been applied. Labs Laboratory Tests Test 07/16/16 18:45 07/16/16 22:57 07/17/16 04:15 07/17/16 07:17 White Blood Count 5.0x10^3/uL (4.0-11.0) 4.4x10^3/uL (4.0-11.0) Red Blood Count 3.65x10^6/uL (3.50-5.40) 3.26x10^6/uL (3.50-5.40) Hemoglobin 10.7g/dL (12.0-15.5) 9.6g/dL (12.0-15.5) Hematocrit 32.1% (36.0-47.0) 29.2% (36.0-47.0) Mean Corpuscular Volume 88fL (79-100) 90fL (79-100) Mean Corpuscular Hemoglobin 29pg (25-35) 30pg (25-35) Mean Corpuscular Hemoglobin Concent 33g/dL (31-37) 33g/dL (31-37) Red Cell Distribution Width 15.0% (11.5-14.5) 15.0% (11.5-14.5) Platelet Count 304x10^3/uL (140-400) 274x10^3/uL (140-400) Neutrophils (%) (Auto) 67% (31-73) 62% (31-73) Lymphocytes (%) (Auto) 22% (24-48) 24% (24-48) Monocytes (%) (Auto) 8% (0-9) 11% (0-9) Eosinophils (%) (Auto) 2% (0-3) 3% (0-3) Basophils (%) (Auto) 1% (0-3) 1% (0-3) Neutrophils # (Auto) 3.4x10^3uL (1.8-7.7) 2.7x10^3uL (1.8-7.7) Lymphocytes # (Auto) 1.1x10^3/uL (1.0-4.8) 1.0x10^3/uL (1.0-4.8) Monocytes # (Auto) 0.4x10^3/uL (0.0-1.1) 0.5x10^3/uL (0.0-1.1) Eosinophils # (Auto) 0.1x10^3/uL (0.0-0.7) 0.1x10^3/uL (0.0-0.7) Basophils # (Auto) 0.1x10^3/uL (0.0-0.2) 0.0x10^3/uL (0.0-0.2) Sodium Level 138mmol/L (136-145) 139mmol/L (136-145) Potassium Level 3.0mmol/L (3.5-5.1) 2.9mmol/L (3.5-5.1) Chloride Level 99mmol/L (98-107) 101mmol/L (98-107) Carbon Dioxide Level 32mmol/L (21-32) 31mmol/L (21-32) Anion Gap 7 (6-14) 7 (6-14) Blood Urea Nitrogen 13mg/dL (7-20) 18mg/dL (7-20) Creatinine 2.0mg/dL (0.6-1.0) 2.8mg/dL (0.6-1.0) Estimated GFR (Cockcroft-Gault) 31.4 21.3 BUN/Creatinine Ratio 7 (6-20) Glucose Level 131mg/dL (70-99) 111mg/dL (70-99) Calcium Level 9.3mg/dL (8.5-10.1) 8.9mg/dL (8.5-10.1) Total Bilirubin 0.4mg/dL (0.2-1.0) Aspartate Amino Transf (AST/SGOT) 19U/L (15-37) Alanine Aminotransferase (ALT/SGPT) 16U/L (14-59) Alkaline Phosphatase 104U/L (46-116) Total Protein 6.5g/dL (6.4-8.2) Albumin 3.4g/dL (3.4-5.0) Albumin/Globulin Ratio 1.1 (1.0-1.7) Lipase 64U/L (73-393) Nasal Screen MRSA (PCR) Positive (Negative) Glucose (Fingerstick) 110mg/dL (70-99) Test 07/17/16 11:42 07/17/16 16:52 07/17/16 20:35 07/18/16 04:32 Glucose (Fingerstick) 140mg/dL (70-99) 152mg/dL (70-99) 156mg/dL (70-99) White Blood Count 4.0x10^3/uL (4.0-11.0) Red Blood Count 3.07x10^6/uL (3.50-5.40) Hemoglobin 9.2g/dL (12.0-15.5) Hematocrit 27.4% (36.0-47.0) Mean Corpuscular Volume 89fL (79-100) Mean Corpuscular Hemoglobin 30pg (25-35) Mean Corpuscular Hemoglobin Concent 34g/dL (31-37) Red Cell Distribution Width 14.6% (11.5-14.5) Platelet Count 253x10^3/uL (140-400) Neutrophils (%) (Auto) 54% (31-73) Lymphocytes (%) (Auto) 34% (24-48) Monocytes (%) (Auto) 9% (0-9) Eosinophils (%) (Auto) 2% (0-3) Basophils (%) (Auto) 1% (0-3) Neutrophils # (Auto) 2.2x10^3uL (1.8-7.7) Lymphocytes # (Auto) 1.4x10^3/uL (1.0-4.8) Monocytes # (Auto) 0.3x10^3/uL (0.0-1.1) Eosinophils # (Auto) 0.1x10^3/uL (0.0-0.7) Basophils # (Auto) 0.0x10^3/uL (0.0-0.2) Test 07/18/16 05:30 Sodium Level 136mmol/L (136-145) Potassium Level 2.9mmol/L (3.5-5.1) Chloride Level 101mmol/L (98-107) Carbon Dioxide Level 32mmol/L (21-32) Anion Gap 3 (6-14) Blood Urea Nitrogen 30mg/dL (7-20) Creatinine 4.1mg/dL (0.6-1.0) Estimated GFR (Cockcroft-Gault) 13.7 BUN/Creatinine Ratio 7 (6-20) Glucose Level 48mg/dL (70-99) Calcium Level 9.5mg/dL (8.5-10.1) Phosphorus Level 2.5mg/dL (2.6-4.7) Magnesium Level 2.0mg/dL (1.8-2.4) Total Bilirubin 0.3mg/dL (0.2-1.0) Aspartate Amino Transf (AST/SGOT) 16U/L (15-37) Alanine Aminotransferase (ALT/SGPT) 14U/L (14-59) Alkaline Phosphatase 78U/L (46-116) Total Protein 5.4g/dL (6.4-8.2) Albumin 2.5g/dL (3.4-5.0) Albumin/Globulin Ratio 0.9 (1.0-1.7) Laboratory Tests Test 07/17/16 16:52 07/17/16 20:35 07/18/16 04:32 07/18/16 05:30 Glucose (Fingerstick) 152mg/dL (70-99) 156mg/dL (70-99) White Blood Count 4.0x10^3/uL (4.0-11.0) Red Blood Count 3.07x10^6/uL (3.50-5.40) Hemoglobin 9.2g/dL (12.0-15.5) Hematocrit 27.4% (36.0-47.0) Mean Corpuscular Volume 89fL (79-100) Mean Corpuscular Hemoglobin 30pg (25-35) Mean Corpuscular Hemoglobin Concent 34g/dL (31-37) Red Cell Distribution Width 14.6% (11.5-14.5) Platelet Count 253x10^3/uL (140-400) Neutrophils (%) (Auto) 54% (31-73) Lymphocytes (%) (Auto) 34% (24-48) Monocytes (%) (Auto) 9% (0-9) Eosinophils (%) (Auto) 2% (0-3) Basophils (%) (Auto) 1% (0-3) Neutrophils # (Auto) 2.2x10^3uL (1.8-7.7) Lymphocytes # (Auto) 1.4x10^3/uL (1.0-4.8) Monocytes # (Auto) 0.3x10^3/uL (0.0-1.1) Eosinophils # (Auto) 0.1x10^3/uL (0.0-0.7) Basophils # (Auto) 0.0x10^3/uL (0.0-0.2) Sodium Level 136mmol/L (136-145) Potassium Level 2.9mmol/L (3.5-5.1) Chloride Level 101mmol/L (98-107) Carbon Dioxide Level 32mmol/L (21-32) Anion Gap 3 (6-14) Blood Urea Nitrogen 30mg/dL (7-20) Creatinine 4.1mg/dL (0.6-1.0) Estimated GFR (Cockcroft-Gault) 13.7 BUN/Creatinine Ratio 7 (6-20) Glucose Level 48mg/dL (70-99) Calcium Level 9.5mg/dL (8.5-10.1) Phosphorus Level 2.5mg/dL (2.6-4.7) Magnesium Level 2.0mg/dL (1.8-2.4) Total Bilirubin 0.3mg/dL (0.2-1.0) Aspartate Amino Transf (AST/SGOT) 16U/L (15-37) Alanine Aminotransferase (ALT/SGPT) 14U/L (14-59) Alkaline Phosphatase 78U/L (46-116) Total Protein 5.4g/dL (6.4-8.2) Albumin 2.5g/dL (3.4-5.0) Albumin/Globulin Ratio 0.9 (1.0-1.7) Medications Current Medications Fentanyl Citrate 50 mcg 50 mcg 1X ONCE IV Last administered on 07/16/16 19:16 ; Start 07/16/16 at 19:00; Stop 07/16/16 at 19:01; Status DC Sodium Chloride (Iv Sodium Chloride 0.9% 250ml) 250 ml @ 250 mls/hr 1X ONCE IV ; Start 07/16/16 at 19:00; Stop 07/16/16 at 19:00; Status DC Ondansetron HCl 4 mg 4 mg 1X ONCE IV Last administered on 07/16/16 19:09; Start 07/16/16 at 19:00; Stop 07/16/16 at 19:01; Status DC Sodium Chloride (Iv Sodium Chloride 0.9% 500ml Bag) 250 ml @ 250 mls/hr 1X ONCE IV Last administered on 07/16/16 19:08; Start 07/16/16 at 19:00; Stop at 19:59; Status DC Ondansetron HCl (Zofran) 4 mg PRN Q8HRS PRN IV NAUSEA/VOMITING; Start 07/16/16 at 21:15; Stop 07/17/16 at 21:14; Status DC Fentanyl Citrate 50 mcg 50 mcg PRN Q2HR PRN IV PAIN; Start 07/16/16 at 21:15; Stop 07/17/16 at 21:14; Status DC Sodium Chloride (Iv Sodium Chloride 0.9% 1000ml Bag) 1,000 ml @ 75 mls/hr [id number] IV ; Start 07/16/16 at 21:15; Stop 07/17/16 at 09:07; Status DC Carvedilol (Coreg) 25 mg BIDWMEALS PO Last administered on 07/17/16 18:02; Start 07/17/16 at 08:00 Amlodipine Besylate (Norvasc) 5 mg DAILY PO Last administered on 07/17/16 08: 36; Start 07/17/16 at 09:00; Stop 07/17/16 at 09:14; Status DC Clonidine HCl (Catapres) 0.2 mg 1X ONCE PO Last administered on 07/17/16 01: 20; Start 07/17/16 at 01:15; Stop 07/17/16 at 01:16; Status DC Clonidine HCl (Catapres) 0.1 mg PRN Q6HRS PRN PO SEE PARAMETERS Last administered on 07/18/16 06:18; Start 07/17/16 at 01:00 Acetaminophen/ Hydrocodone Bitart (Lortab 5/325) 1 tab PRN Q6HRS PRN PO PAIN Last administered on 07/17/16 22:57; Start 07/17/16 at 01:00 Potassium Chloride (Klor-Con) 40 meq 1X ONCE PO Last administered on 06:20; Start 07/17/16 at 06:00; Stop 07/17/16 at 06:01; Status DC Amlodipine Besylate (Norvasc) 10 mg DAILY PO Last administered on 07/18/16 12: 30; Start 07/18/16 at 09:00 Aspirin (Ecotrin) 81 mg DAILY PO Last administered on 07/18/16 12:30; Start at 09:30 Atorvastatin Calcium (Lipitor) 40 mg HS PO Last administered on 07/17/16 21:06 ; Start 07/17/16 at 21:00 Calcium Acetate (Phoslo) 1,334 mg TIDWMEALS PO Last administered on 07/18/16 12:32; Start 07/17/16 at 12:00 Clonidine HCl (Catapres) 0.2 mg Q8HRS PO Last administered on 07/18/16 06:18; Start 07/17/16 at 14:00 Diphenhydramine HCl (Benadryl) 25 mg PRN Q6HRS PRN PO ITCHING Last administered on 07/17/16 22:56; Start 07/17/16 at 09:00 Folic Acid/ Multivitamins/Vit B12 (Nephro-Donny) 1 tab DAILY PO Last administered on 07/18/16 12:29; Start 07/17/16 at 09:30 Metoclopramide HCl (Reglan) 5 mg TIDAC PO Last administered on 07/18/16 12:29 ; Start 07/17/16 at 11:30 Ondansetron HCl (Zofran Odt) 4 mg PRN Q8HRS PRN PO NAUSEA/VOMITING Last administered on 07/17/16 18:12; Start 07/17/16 at 09:00 Pantoprazole Sodium (Protonix) 40 mg DAILYAC PO Last administered on 07/18/16 12:32; Start 07/17/16 at 09:30 Polyethylene Glycol (miraLAX PACKET) 17 gm BID PO ; Start 07/17/16 at 09:30; Stop 07/17/16 at 10:32; Status DC Non-Formulary Medication 25 mg BIDWMEALS PO ; Start 07/17/16 at 17:00; Status UNV Hydralazine HCl (Apresoline) 100 mg TID PO Last administered on 07/17/16 21:07 ; Start 07/17/16 at 09:30 Insulin Detemir (Levemir) 10 units QHS SQ Last administered on 07/17/16 21:21 ; Start 07/17/16 at 21:00 Losartan Potassium (Cozaar) 100 mg DAILY PO Last administered on 07/18/16 12: 30; Start 07/17/16 at 09:30 Oxycodone HCl (Roxicodone) 5 mg PRN QID PRN PO PAIN Last administered on 12:48; Start 07/17/16 at 09:30 Sertraline HCl (Zoloft) 100 mg DAILY PO Last administered on 07/18/16 12:32; Start 07/17/16 at 09:30 Lidocaine (Lidoderm) 1 patch DAILY TD Last administered on 07/18/16 12:49; Start 07/17/16 at 09:30 Gabapentin 100 mg 100 mg QHS PO Last administered on 07/17/16 21:06; Start 03/23 at 21:00; Stop 07/18/16 at 13:14; Status DC Magnesium Sulfate/ Dextrose (Magnesium Sulfate PREMIX 2GM) 50 ml @ 25 mls/hr PRN DAILY PRN IV for Mag < 1.7 on am labs; Start 07/17/16 at 14:30 Calcium Carbonate/ Glycine (Tums) 1,000 mg PRN AFTMEALHC PRN PO INDIGESTION Last administered on 07/17/16 18:11; Start 07/17/16 at 18:15 Potassium Chloride (Klor-Con) 40 meq 1X ONCE PO Last administered on 12:32; Start 07/18/16 at 07:15; Stop 07/18/16 at 07:16; Status DC Potassium Chloride (Klor-Con) 40 meq 1X ONCE PO Last administered on 12:49; Start 07/18/16 at 12:00; Stop 07/18/16 at 12:01; Status DC Lidocaine HCl 2 ml 2 ml STK-MED ONCE .ROUTE ; Start 07/18/16 at 07:46; Stop 04/23 at 07:47; Status DC Sodium Chloride (Iv Sodium Chloride 0.9% 1000ml Bag) 1,000 ml @ 1,000 mls/hr Q1H PRN IV hypotension; Start 07/18/16 at 07:49; Stop 07/18/16 at 13:48; Status DC Diphenhydramine HCl (Benadryl) 25 mg 1X PRN PRN IV ITCHING; Start 07/18/16 at 08:00; Stop 07/19/16 at 07:59 Diphenhydramine HCl (Benadryl) 25 mg 1X PRN PRN IV ITCHING; Start 07/18/16 at 08:00; Stop 07/19/16 at 07:59 Labetalol HCl (Normodyne) 10 mg PRN Q1HR PRN IVP SBP > 180; Start 07/18/16 at 08:00; Stop 07/19/16 at 07:59 Clonidine HCl 0.1 mg 0.1 mg 1X PRN PRN PO SBP > 180; Start 07/18/16 at 08:00; Stop 07/19/16 at 07:59 Sodium Chloride (Iv Sodium Chloride 0.9% 1000ml Bag) 1,000 ml @ 400 mls/hr Q2H30M PRN IV PATENCY; Start 07/18/16 at 07:49; Stop 07/18/16 at 19:48 Info (PHARMACY MONITORING -- do not chart) 1 each PRN DAILY PRN MC SEE COMMENTS ; Start 07/18/16 at 08:00 Lidocaine HCl (Xylocaine-Mpf 1% Vial) 2 ml 1X ONCE ID Last administered on 2/ 11/17at 07:50; Start 07/18/16 at 08:00; Stop 07/18/16 at 08:01; Status DC Fentanyl (Duragesic 25mcg/ Hr Patch) 1 patch Q3DAYS TD ; Start 07/18/16 at 14:00 Active Scripts Active Miralax (Polyethylene Glycol 3350) 17 Gm Powd.pack 17 Gm PO BID Ondansetron Odt (Ondansetron) 4 Mg Tab.rapdis 4 Mg PO PRN Q8HRS PRN Hydralazine Hcl 100 Mg Tablet 1 Tab PO TID Nephro-Donny Tablet (Folic Acid/Vitamin B Comp W-C) 0.8 Mg Tablet 1 Tab PO DAILY Benadryl (Diphenhydramine Hcl) 25 Mg Capsule 25 Mg PO PRN Q6HRS PRN Clonidine Hcl 0.2 Mg Tablet 0.2 Mg PO Q8HRS Amlodipine Besylate 10 Mg Tablet 10 Mg PO DAILY Reported Zoloft (Sertraline Hcl) 100 Mg Tablet 1 Tab PO DAILY Pantoprazole Sodium 40 Mg Tablet.dr 1 Tab PO DAILY Reglan (Metoclopramide Hcl) 10 Mg Tablet 5 Mg PO TIDAC Oxycodone Hcl 5 Mg Capsule 1 Cap PO QID PRN Phoslo (Calcium Acetate) 667 Mg Capsule 1,334 Mg PO TIDWMEALS Losartan Potassium 100 Mg Tablet 100 Mg PO DAILY Levemir (Insulin Detemir) 100 Unit/1 Ml Vial 10 Unit SQ HS Coreg (Carvedilol) 25 Mg Tablet 25 Mg PO BIDWMEALS Atorvastatin Calcium 40 Mg Tablet 40 Mg PO HS Aspir 81 (Aspirin) 81 Mg Tablet.dr 81 Mg PO DAILY Vitals/I & O Vital Sign - Last 24 Hours 07/17/16 07/17/16 07/17/16 07/17/16 14:59 15:22 15:23 15:50 Temp 98.4 98.4 Pulse 58 58 58 70 Resp 18 B/P 201/63 201/63 201/63 136/65 Pulse Ox 97 07/17/16 07/17/16 07/17/16 07/17/16 15:51 18:02 18:02 19:10 Temp 97.7 97.7 Pulse 61 61 57 Resp 16 B/P 191/68 191/68 203/62 Pulse Ox 97 98 O2 Delivery Room Air Room Air 07/17/16 07/17/16 07/17/16 07/17/16 20:00 21:06 21:07 21:07 Pulse 57 57 57 B/P 203/62 203/62 203/62 O2 Delivery Room Air 07/17/16 07/17/16 07/17/16 07/18/16 21:20 22:57 23:12 01:11 Temp 98.4 98.4 Pulse 63 Resp 16 B/P 185/69 Pulse Ox 98 O2 Delivery Room Air Room Air Room Air Room Air 07/18/16 07/18/16 07/18/16 07/18/16 03:15 06:17 06:18 06:18 Temp 98.1 98.1 Pulse 58 58 58 Resp 16 B/P 155/53 155/53 155/53 Pulse Ox 100 O2 Delivery Room Air Room Air 07/18/16 07/18/16 07/18/16 07/18/16 07:30 08:00 12:30 12:30 Pulse 58 58 B/P 155/53 155/53 O2 Delivery Room Air Room Air 07/18/16 12:48 Pulse Ox 100 O2 Delivery Room Air Intake and Output 07/17/16 07/17/16 07/18/16 15:00 23:00 07:00 Intake Total 118 ml 340 ml Balance 118 ml 340 ml PATRICIA BANKS MD Jul 18, 2016 14:39
[2016-07-18 15:00] VITALS: BP 149/59
[2016-07-18] MEDS: HYDROCODONE/APAP 5/325MG TABLET. PO PRN (18:44)
[2016-07-18 19:05] VITALS: BP 140/60
--- NOTE | 2016-07-18 19:28 | CONS ---
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 HISTORY OF PRESENT ILLNESS: A 56-year-old male admitted with chronic abdominal pain. She has had gallbladder removed without relief. She has had multiple other therapies, upper endoscopies, etc., without a known cause for the pain. She had a recent arteriogram by Dr. 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 He was not able to get that vessel opened up percutaneously. PAST MEDICAL HISTORY: She has chronic diabetes, chronic and malignant hypertension, chronic renal failure on dialysis through the left upper arm fistula done by Dr. Mo at [facility]. She does also have a history of asthma. SOCIAL HISTORY: Nonsmoker, nondrinker. ALLERGIES: AMITRIPTYLINE, HYDROMORPHONE, LISINOPRIL AND METFORMIN. PAST SURGICAL HISTORY: No major vascular operations other than the left upper arm fistula, which seems to be working well. MEDICATIONS: See reconciliation list for her medications. She is on multiple medications including 81 mg of aspirin daily. REVIEW OF SYSTEMS: No history of stroke. No history of coronary artery disease. No claudication. PHYSICAL EXAMINATION: Pleasant, overweight female, in no acute distress. 2+ carotids, 2+ radial pulse on the right. She has got a functioning left upper arm fistula that is working nicely. Regular heart rate, nonlabored respirations. Abdomen is obese, is soft. She has got a pain patch in the epigastric area. She has got strong popliteal pulses and she is neurologically intact. The arteriogram was reviewed. 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 This is most likely the cause of her pain, but it is not definite for sure. PLAN: Discussed and recommended a celiac artery decompression, lysis of the muscle fibers around that vessel and if that does not open up, then a bypass to the common hepatic artery past the obstruction. The nature of that procedure and the risk of bleeding, infection, not relief of her symptoms, probably 80% chance that it would relieve her symptoms, length of stay in the hospital, time of the operation, recovery were all discussed and she is agreeable to proceed. I will try to get her scheduled for [facility] afternoon. It is okay to discharge her and we can readmit her on Wednesday if she wants to go ahead and have the surgery then and if we can get it scheduled for them. Thanks for allowing us to see her. PATRICIA CHAVEZ MD DR: KARIN/faraz JOB#: [id number] / [id number]
[2016-07-18] MEDS: ATORVASTATIN CALCIUM 40 MG TABLET. PO SCH (20:45)
[2016-07-18] MEDS: DIPHENHYDRAMINE HCL 25 MG CAPSULE PO PRN (20:46)
[2016-07-18] MEDS: INSULIN DETEMIR 300 UNITS/3 ML INSULN.PEN. SQ SCH (20:50)
[2016-07-18 23:48] VITALS: BP 163/46
[2016-07-19 05:51] LABS: ALBUMIN 2.5 g/dL (3.4-5.0); CALCIUM 9.4 mg/dL (8.5-10.1); CREATININE 3.8 mg/dL (0.6-1.0); PHOSPHORUS 1.8 mg/dL (2.6-4.7); POTASSIUM 4.7 mmol/L (3.5-5.1)
[2016-07-19] MEDS: HYDROCODONE/APAP 5/325MG TABLET. PO PRN (06:37)
[2016-07-19] MEDS: CLONIDINE HCL 0.2 MG TABLET PO SCH (06:38)
[2016-07-19] MEDS: METOCLOPRAMIDE 5 MG TABLET PO SCH (06:38)
[2016-07-19] MEDS: PANTOPRAZOLE 40 MG TABLET. PO SCH (06:38)
[2016-07-19] MEDS: DIPHENHYDRAMINE HCL 25 MG CAPSULE PO PRN (06:38)
[2016-07-19 07:00] VITALS: BP 136/50
[2016-07-19] MEDS: FOLIC/VIT B COMP W-C (RENAL) TABLET. PO SCH (08:04)
[2016-07-19] MEDS: CALCIUM ACETATE 667 MG CAPSULE PO SCH (08:04)
[2016-07-19] MEDS: HYDRALAZINE 50 MG TABLET PO SCH (08:06)
[2016-07-19] MEDS: ASPIRIN ENTERIC COATED 81 MG TABLET.DR. PO SCH (08:08)
[2016-07-19] MEDS: CARVEDILOL 12.5 MG TABLET PO SCH (08:08)
[2016-07-19] MEDS: LOSARTAN POTASSIUM 50 MG TABLET. PO SCH (08:08)
[2016-07-19] MEDS: AMLODIPINE BESYLATE 10 MG TABLET PO SCH (08:09)
[2016-07-19] MEDS: SERTRALINE 50 MG TABLET. PO SCH (08:09)
[2016-07-19] MEDS: OXYCODONE IR 5 MG TABLET. PO PRN (08:12)
[2016-07-19] MEDS: LIDOCAINE (700MG/PATCH) PATCH. TD SCH (08:15)
--- NOTE | 2016-07-19 09:55 | DISCH ---
DISCHARGE INSTRUCTIONS Condition on Discharge Condition on Discharge: Stable Activity After Discharge Activity Instructions for Disc: Activity as tolerated Diet after Discharge Diet after Discharge: Renal Dialysis, Diabetic No Calorie Level Contacting the [facility] after DC Call your doctor for: Concerns you may have Follow-Up Follow up with: Dr.Pratip Dang in 5 days GAURAV DANG MD Jul 19, 2016 09:55
[2016-07-19 11:00] VITALS: BP 133/54
--- NOTE | 2016-07-19 11:41 | PDOC ---
IM PROGRESS NOTES- Subjective Subjective Has abdominal pain.No Diarrhea. Objective Vitals Vital Signs Date Time Temp Pulse Resp B/P Pulse Ox O2 Delivery O2 Flow Rate FiO2 07/19/16 09:17 96 Room Air 07/19/16 08:09 58 163/46 07/19/16 07:00 97.7 16 97.7 Input & Output Intake and Output 07/19/16 07:00 Intake Total 540 ml Balance 540 ml Intake Oral 540 ml # Voids 2 Physical Exam Physical Exam General appearance - alert,well appearing, and in no distress and oriented to person, place, and time Mental Status - alert, oriented to person, place, and time, affect appropriate to mood Head - normal Chest - clear to auscultation, no wheezes, rales or rhonchi, symmetric air entry Heart - S1 and S2 normal Abdomen - soft, nontender, nondistended, no masses or organomegaly Neurological - alert and oriented Musculoskeletal - no muscular tenderness noted Extremities - no pedal edema Skin - warm and dry Labs Laboratory Tests Test 07/17/16 11:42 07/17/16 16:52 07/17/16 20:35 07/18/16 04:32 Glucose (Fingerstick) 140mg/dL (70-99) 152mg/dL (70-99) 156mg/dL (70-99) White Blood Count 4.0x10^3/uL (4.0-11.0) Red Blood Count 3.07x10^6/uL (3.50-5.40) Hemoglobin 9.2g/dL (12.0-15.5) Hematocrit 27.4% (36.0-47.0) Mean Corpuscular Volume 89fL (79-100) Mean Corpuscular Hemoglobin 30pg (25-35) Mean Corpuscular Hemoglobin Concent 34g/dL (31-37) Red Cell Distribution Width 14.6% (11.5-14.5) Platelet Count 253x10^3/uL (140-400) Neutrophils (%) (Auto) 54% (31-73) Lymphocytes (%) (Auto) 34% (24-48) Monocytes (%) (Auto) 9% (0-9) Eosinophils (%) (Auto) 2% (0-3) Basophils (%) (Auto) 1% (0-3) Neutrophils # (Auto) 2.2x10^3uL (1.8-7.7) Lymphocytes # (Auto) 1.4x10^3/uL (1.0-4.8) Monocytes # (Auto) 0.3x10^3/uL (0.0-1.1) Eosinophils # (Auto) 0.1x10^3/uL (0.0-0.7) Basophils # (Auto) 0.0x10^3/uL (0.0-0.2) Test 07/18/16 05:30 07/18/16 16:36 07/18/16 17:00 07/18/16 20:33 Sodium Level 136mmol/L (136-145) Potassium Level 2.9mmol/L (3.5-5.1) 4.3mmol/L (3.5-5.1) Chloride Level 101mmol/L (98-107) Carbon Dioxide Level 32mmol/L (21-32) Anion Gap 3 (6-14) Blood Urea Nitrogen 30mg/dL (7-20) Creatinine 4.1mg/dL (0.6-1.0) Estimated GFR (Cockcroft-Gault) 13.7 BUN/Creatinine Ratio 7 (6-20) Glucose Level 48mg/dL (70-99) Calcium Level 9.5mg/dL (8.5-10.1) Phosphorus Level 2.5mg/dL (2.6-4.7) Magnesium Level 2.0mg/dL (1.8-2.4) Total Bilirubin 0.3mg/dL (0.2-1.0) Aspartate Amino Transf (AST/SGOT) 16U/L (15-37) Alanine Aminotransferase (ALT/SGPT) 14U/L (14-59) Alkaline Phosphatase 78U/L (46-116) Total Protein 5.4g/dL (6.4-8.2) Albumin 2.5g/dL (3.4-5.0) Albumin/Globulin Ratio 0.9 (1.0-1.7) Glucose (Fingerstick) 153mg/dL (70-99) 190mg/dL (70-99) Test 07/19/16 04:52 Sodium Level 135mmol/L (136-145) Potassium Level 4.7mmol/L (3.5-5.1) Chloride Level 104mmol/L (98-107) Carbon Dioxide Level 29mmol/L (21-32) Anion Gap 2 (6-14) Blood Urea Nitrogen 23mg/dL (7-20) Creatinine 3.8mg/dL (0.6-1.0) Estimated GFR (Cockcroft-Gault) 15.0 Glucose Level 95mg/dL (70-99) Calcium Level 9.4mg/dL (8.5-10.1) Phosphorus Level 1.8mg/dL (2.6-4.7) Magnesium Level 1.9mg/dL (1.8-2.4) Albumin 2.5g/dL (3.4-5.0) Laboratory Tests Test 07/18/16 16:36 07/18/16 17:00 07/18/16 20:33 07/19/16 04:52 Glucose (Fingerstick) 153mg/dL (70-99) 190mg/dL (70-99) Potassium Level 4.3mmol/L (3.5-5.1) 4.7mmol/L (3.5-5.1) Sodium Level 135mmol/L (136-145) Chloride Level 104mmol/L (98-107) Carbon Dioxide Level 29mmol/L (21-32) Anion Gap 2 (6-14) Blood Urea Nitrogen 23mg/dL (7-20) Creatinine 3.8mg/dL (0.6-1.0) Estimated GFR (Cockcroft-Gault) 15.0 Glucose Level 95mg/dL (70-99) Calcium Level 9.4mg/dL (8.5-10.1) Phosphorus Level 1.8mg/dL (2.6-4.7) Magnesium Level 1.9mg/dL (1.8-2.4) Albumin 2.5g/dL (3.4-5.0) Meds Current Medications Fentanyl (Duragesic 25mcg/ Hr Patch) 1 patch Q3DAYS TD Last administered on 15:53; Start 07/18/16 at 14:00 Potassium Chloride (Klor-Con) 40 meq 1X ONCE PO Last administered on 12:49; Start 07/18/16 at 12:00; Stop 07/18/16 at 12:01; Status DC Assessment Assessment 1. Malignant hypertension. Continue present treatment and p.r.n. clonidine. 2. Hypokalemia. This is due to diarrhea. Replace potassium. The patient is going to get dialysis tomorrow. 3. End-stage renal disease, on hemodialysis. 4. Right upper quadrant abdominal pain, etiology not clear. The patient had extensive workup including MRCP, CT scan of abdomen and pelvis, CT angiography, gastric emptying time, hepatobiliary scan, ultrasound, etc. There is a possibility that it could be a neuropathic pain. I have reordered a Lidoderm patch and I also started gabapentin at bedtime. 5. Diarrhea. I will discontinue MiraLax at this time and hold metoclopramide, if she continues to have persistent diarrhea. 6. Gastric motility disorder. 7. Coronary artery disease. 8. Congestive heart failure. 9. Hyperlipidemia. 10. Asthma. 11. Anxiety. 12. Cerebrovascular accident with left-sided weakness at age 53. 13. Gastroesophageal reflux disease. 14. Anemia, due to both chronic renal insufficiency and iron deficiency. 15. Depression. 16. Osteoarthritis. 17. Diabetes mellitus. 18. Secondary hyperparathyroidism. PLAN: As noted above, potassium replacements, discontinue MiraLax, hold metoclopramide if needed, start gabapentin and Lidoderm patch. Monitor blood pressure closely. Consult Dr. Hernandez for nephrology evaluation and management and Dr. Pennington for GI evaluation and management. Duragesic patch for pain per .Continue till 07/21 AM- started yesterday- no new script. Per - Essentially occluded celiac artery , due to median arrcuate ligament syndrome and or scar tissue within vessel from the chronic compression , definately not atherosclerosis Likely the cause of the chronic pain. Surgery planned for Wednesday. Severe hypokalemia- diarrhea resolved.K 4.7. Discharge Management - 35 minutes. Readmit on 07/21 for surgery- staff,pt advised to coordinate with and as she also gets HD on 07/21. RENAL FAILURE: ESRD Plan Plan For more details regarding further plans, please refer to the orders. GAURAV DANG MD Jul 19, 2016 11:41
[2016-07-19 16:11] LABS: HEP B SURFACE ABDY Reactive (.)
[2016-07-20] MEDS ORDERED: INSU100C4 SQ (12:37)
--- NOTE | 2016-07-21 14:00 | PDOC3 ---
IM DISCHARGE SUMMARY Date of Admission Date of Admission Date of Admission: Jul 16, 2016 at 21:13 Date of Discharge Date of Discharge 07/19/16 Primary Diagnosis Primary Diagnosis 1. Malignant hypertension. 2. Hypokalemia acute secondary to diarrhea. 3. End-stage renal disease, on hemodialysis. HD 3x weekly 4. Right upper quadrant abdominal pain, etiology not clear. 5. Diarrhea. 6. Gastric motility disorder. 7. Coronary artery disease. 8. Congestive heart failure. 9. Hyperlipidemia. 10. Asthma. 11. Anxiety. 12. Cerebrovascular accident with left-sided weakness at age 53. 13. Gastroesophageal reflux disease. 14. Anemia, due to both ESRD and iron deficiency. 15. Depression. 16. Osteoarthritis. 17. Diabetes mellitus type II insulin controlled 18. Secondary hyperparathyroidism. Problems: Consults Consults Dr. Erica Youngblood Procedures Procedures None Labs Labs Laboratory Tests Test 07/18/16 16:36 07/18/16 17:00 07/18/16 20:33 07/19/16 04:52 Glucose (Fingerstick) 153mg/dL (70-99) 190mg/dL (70-99) Potassium Level 4.3mmol/L (3.5-5.1) 4.7mmol/L (3.5-5.1) Sodium Level 135mmol/L (136-145) Chloride Level 104mmol/L (98-107) Carbon Dioxide Level 29mmol/L (21-32) Anion Gap 2 (6-14) Blood Urea Nitrogen 23mg/dL (7-20) Creatinine 3.8mg/dL (0.6-1.0) Estimated GFR (Cockcroft-Gault) 15.0 Glucose Level 95mg/dL (70-99) Calcium Level 9.4mg/dL (8.5-10.1) Phosphorus Level 1.8mg/dL (2.6-4.7) Magnesium Level 1.9mg/dL (1.8-2.4) Albumin 2.5g/dL (3.4-5.0) Hepatitis B Surface Antigen Negative (Negative) Hepatitis B Surface Antibody Reactive (.) Test 07/19/16 11:34 Glucose (Fingerstick) 67mg/dL (70-99) Brief hospital course Brief hospital course This 56 year old female who presented with acute RUQ abdominal pain was admitted. She was recently discharged from [facility] after work up for the RUQ abdominal pain that is chronic daily and intractable. She was diagnosed with celiac stenosis but good collateral flow. Vascular surgery consulted this admission and now the source of the chronic pain may be the stenosed celiac vein. She is discharged home to be readmitted on Wednesday for surgery. Dr[facility] was [facility] and Raven was continued on fentanyl patch with oral med for breakthrough pain. For more details regarding the past history, family history, social history, surgical history and other details, please refer to History and Physical. Please see the discharge orders and medications reconciled at the time of discharge. Medications Medications reviewed and reconciled for discharge. Allergy Allergies Coded Allergies Type Severity Reaction Last Updated Verified amitriptyline Allergy Intermediate 07/21/16 Yes hydromorphone Allergy Intermediate 07/21/16 Yes lisinopril Allergy Intermediate 07/21/16 Yes metformin Allergy Intermediate 07/21/16 Yes I S O L A T I O N *CONTACT* Allergy Unknown 07/21/16 Yes Follow up Readmit Wednesday under Dr. Ng service. DISPOSITION: Home Comments Discharge Management - 35 minutes. For other details please refer to discharge instructions RUT EDWARDS APRN Jul 21, 2016 14:00
== END 2016-07-19 13:00 | disposition home or self-care (01) | DRG 291 ==
LOC: ER 15:43 → 6 SOUTH 21:13
PROVIDERS: ADMIT Internal Medicine; ATTEND Internal Medicine
PROC: 5A1D00Z (ICD-10-PCS; principal; 2016-07-18)
DX: I13.2 Hypertensive heart and chronic kidney disease with heart failure and with stage 5 chronic kidney disease, or end stage renal disease (principal); N18.6 End stage renal disease; I74.8 Embolism and thrombosis of other arteries; E44.0 Moderate protein-calorie malnutrition; I77.4 Celiac artery compression syndrome; N25.81 Secondary hyperparathyroidism of renal origin; I69.354 Hemiplegia and hemiparesis following cerebral infarction affecting left non-dominant side; I16.0 Hypertensive urgency; K31.84 Gastroparesis; E11.43 Type 2 diabetes mellitus with diabetic autonomic (poly)neuropathy; R10.11 Right upper quadrant pain; E11.22 Type 2 diabetes mellitus with diabetic chronic kidney disease; J45.909 Unspecified asthma, uncomplicated; I25.10 Atherosclerotic heart disease of native coronary artery without angina pectoris; E78.5 Hyperlipidemia, unspecified; I50.9 Heart failure, unspecified; K21.9 Gastro-esophageal reflux disease without esophagitis; D50.9 Iron deficiency anemia, unspecified; E78.00 Pure hypercholesterolemia, unspecified; E87.6 Hypokalemia; F32.9 Major depressive disorder, single episode, unspecified; F41.9 Anxiety disorder, unspecified; G89.29 Other chronic pain; M19.90 Unspecified osteoarthritis, unspecified site; Z68.33 Body mass index [BMI] 33.0-33.9, adult; Z88.5 Allergy status to narcotic agent; Z88.8 Allergy status to other drugs, medicaments and biological substances; Z90.710 Acquired absence of both cervix and uterus; Z83.3 Family history of diabetes mellitus; Z90.49 Acquired absence of other specified parts of digestive tract; Z99.2 Dependence on renal dialysis
CPT/HCPCS: 36415; 72072; 72100; 74000; 76705; 80048; 80053; 80069; 82947; 83690; 83735; 84100; 84132; 85027; 86706; 87340; 87341; 87641; 93005; 96374; 96375; J1815; J2405; J3010; J7040; J8597; Q0162; Q0163; 99285-25

== ENCOUNTER 2016-07-21 11:41 | Inpatient (IN) | payer MEDICARE, OTHER ==
[~2016-07-21] VITALS: Ht 157.5 cm; Wt 82.6 kg
[2016-07-21] VITALS (19 sets, daily range): BP systolic 129–241; BP diastolic 54–78
[~2016-07-21 11:41] MED LIST changes: +CEFAZOLIN 2GM PREMIX 50 ML IV ONE; +CEFAZOLIN SODIUM 1 GM in IV NORMAL SALINE 500ML BAG 500 ML IRR ONE; +FENTANYL PF 100 MCG/2 ML VIAL. IV PRN; +HEPARIN S0DIUM 5,000 UNIT in IV NORMAL SALINE 500ML BAG 500 ML IRR ONE; +INSU100C4 SQ; +IV RINGERS,LACTATED 1000ML 1,000 ML IV SCH; +LIDOCAINE 1% 1 ML SYRINGE. ID PRN; +MORPHINE SULFATE 2 MG/ML DISP.SYRIN. IV PRN; +ONDANSETRON PF 4 MG/2 ML VIAL. IV PRN; +PROCHLORPERAZINE 10 MG/2 ML VIAL. IV PRN
[2016-07-21] MEDS ORDERED: IV NORMAL SALINE 1000ML BAG 1,000 ML IV ONE (12:15)
[2016-07-21 12:37] LABS: BASO % 1 % (0-3); EOS % 2 % (0-3); HEMOGLOBIN 9.6 g/dL (12.0-15.5); LYMPH # 0.6 x10^3/uL (1.0-4.8); LYMPH % 10 % (24-48); MEAN CORPUSCULAR HEMOGLOBIN 29 pg (25-35); MEAN CORPUSCULAR HGB CONC 32 g/dL (31-37); MEAN CORPUSCULAR VOLUME 92 fL (79-100); MONO % 4 % (0-9); NEUT % 84 % (31-73); PLATELET COUNT 224 x10^3/uL (140-400); RED BLOOD COUNT 3.28 x10^6/uL (3.50-5.40); RED CELL DISTRIBUTION WIDTH 14.9 % (11.5-14.5); WHITE BLOOD COUNT 5.5 x10^3/uL (4.0-11.0)
[2016-07-21 12:43] LABS: CALCIUM 10.4 mg/dL (8.5-10.1); CREATININE 7.1 mg/dL (0.6-1.0); GFR 7.3; POTASSIUM 5.7 mmol/L (3.5-5.1)
[2016-07-21] MEDS ORDERED: HEPARIN for IV BOLUS 10,000 UNIT/10 ML VIAL. ONE (12:48)
[2016-07-21 12:50] LABS: INR 1.1 (0.8-1.1); PROTHROMBIN TIME PATIENT 13.5 SEC (11.7-14.0)
[2016-07-21] MEDS ORDERED: ROCURONIUM 50 MG/5 ML VIAL. ONE ×2 (12:51→14:36)
[2016-07-21] MEDS ORDERED: PROPOFOL 20 ML IV ONE (12:51)
[2016-07-21] MEDS ORDERED: FENTANYL PF 100 MCG/2 ML VIAL. ONE ×2 (12:51→14:09)
[2016-07-21] MEDS ORDERED: LIDOCAINE 2% 100 MG/5 ML DISP.SYRIN. ONE (12:51)
[2016-07-21] MEDS ORDERED: SURGICEL FIBRILLAR 1X2 EACH. ONE ×2 (12:54)
[2016-07-21] MEDS ORDERED: PHENYLEPHRINE 10 MG/ML VIAL. ONE (12:54)
[2016-07-21] MEDS ORDERED: DIPHENHYDRAMINE HCL 25 MG CAPSULE PO PRN (13:15)
[2016-07-21] MEDS ORDERED: CALCIUM CARBONATE 500 MG TAB.CHEW PO PRN (13:15)
[2016-07-21] MEDS ORDERED: DIPHENHYDRAMINE 50 MG/ML VIAL IV PRN (13:15)
[2016-07-21] MEDS ORDERED: MAG HYDROX/ALUMINUM HYD/SIMETH 30 ML ORAL.SUSP PO PRN (13:15)
[2016-07-21] MEDS ORDERED: PROCHLORPERAZINE 10 MG/2 ML VIAL. IV PRN (13:15)
[2016-07-21] MEDS ORDERED: ONDANSETRON PF 4 MG/2 ML VIAL. IV PRN (13:15)
[2016-07-21] MEDS ORDERED: NALOXONE 0.4 MG/ML VIAL. IV PRN (13:15)
[2016-07-21] MEDS ORDERED: 0.9 % SODIUM CHLORIDE 10 ML DISP.SYRIN. IV PRN (13:15)
[2016-07-21] MEDS ORDERED: HEPARIN 30,000 UNIT/30 ML VIAL. ONE (14:14)
[2016-07-21] MEDS ORDERED: PROTAMINE 250 MG/25 ML VIAL IV ONE (15:59)
[2016-07-21] MEDS ORDERED: NEOSTIGMINE METHYLSULFATE 5 MG/5 ML SYRINGE. ONE (16:04)
[2016-07-21] MEDS ORDERED: GLYCOPYRROLATE 1 MG/5 ML VIAL. ONE (16:04)
--- NOTE | 2016-07-21 16:12 | PDOC ---
BRIEF OPERATIVE NOTE Date: Jul 21, 2016 Pre-Op Diagnosis Celiac compression syndrome Post-Op Diagnosis same Procedure Performed Celiac artery decompression, lysis of the muscle fibers, aortic to common hepatic artery bypass with 7mm gortex graft Surgeon Dr Maldonado [place] Dr. Funmilayo Funez, SONALI Anesthesia Type: General Blood Loss 100cc Specimens Obtained none Findings celiac artery stenosis Complications none BREANNE FUNEZ APRN Jul 21, 2016 16:12
[2016-07-21] MEDS: FENTANYL PF 100 MCG/2 ML VIAL. IV PRN ×12 (16:43→23:34)
[2016-07-21] MEDS ORDERED: hydrALAZINE 20 MG/ML VIAL. ONE (17:24)
[2016-07-21] MEDS: hydrALAZINE 20 MG/ML VIAL. IVP PRN ×4 (17:31→22:34)
[2016-07-21] MEDS ORDERED: hydrALAZINE 20 MG/ML VIAL. IVP PRN (18:45)
[2016-07-21] MEDS ORDERED: METOPROLOL TARTRATE 5 MG/5 ML VIAL. IVP PRN (18:45)
[2016-07-21] MEDS ORDERED: FENTANYL PF 100 MCG/2 ML VIAL. IV PRN (18:45)
[2016-07-21] MEDS: NICARDIPINE HCL 50 MG in IV NORMAL SALINE 250ML 250 ML IV PRN (19:45)
[2016-07-21] MEDS: DOCUSATE SODIUM 100 MG CAPSULE PO SCH (20:39)
[2016-07-21] MEDS: CEFAZOLIN 2GM PREMIX 50 ML IV SCH (21:43)
[2016-07-22] VITALS (20 sets, daily range): BP systolic 121–181; BP diastolic 43–86
[2016-07-22] MEDS: NICARDIPINE HCL 50 MG in IV NORMAL SALINE 250ML 250 ML IV PRN ×3 (00:23→08:09)
[2016-07-22] MEDS: FENTANYL PF 100 MCG/2 ML VIAL. IV PRN ×3 (02:05→08:06)
[2016-07-22] MEDS: CEFAZOLIN 2GM PREMIX 50 ML IV SCH ×2 (02:14→08:17)
[2016-07-22] MEDS: hydrALAZINE 20 MG/ML VIAL. IVP PRN (02:17)
--- NOTE | 2016-07-22 06:11 | OP ---
DATE OF SURGERY: 07/21/2016 PREOPERATIVE DIAGNOSIS: Celiac compression syndrome with abdominal pain. POSTOPERATIVE DIAGNOSIS: Celiac compression syndrome with abdominal pain. PROCEDURE PERFORMED: Exploration of celiac artery, division of all the tara fibers and the scar tissue and tight fibers and muscle fibers around the celiac trunk, and a ____ celiac artery bypass using a 7 mm [place]-Brad. SURGEON: Dr. Margarito Chavez. TELEVISION NEWSCAST DIRECTOR: Dr. Mauro and Marce Kelley. ANESTHETIC: General. INDICATIONS: This is a 56-year-old female with chronic pain, gallbladder removal did no good. She had an arteriogram last week that showed essentially an occlusion of the celiac trunk. DESCRIPTION OF PROCEDURE: After general endotracheal anesthetic, prepping and draping, a midline abdominal incision was made to the umbilicus. Subcutaneous tissue divided with cautery, bleeding controlled with cautery, and the fascia was divided, retractors were placed. The space below the left lobe of the liver medial to the esophagus was opened up, and we were able to dissect down to the aorta dividing some of the tara muscles and the adventitia over the aorta. Once the aorta was clearly identified, it was nice and soft, we dissected more distally dividing all the tara muscles and eventually got to the celiac trunk which was very small. The 3 branches of the splenic artery, the mid left gastric, and the common hepatic were all dissected out and encircled with vessel loops. The celiac trunk was circumferentially dissected out. The patient was then given 7000 units of heparin IV. Because the celiac artery was occluded and terribly small, it was ligated at the aortic area with a silk tie. Vessel loops were tightened on these 3 branches and then the celiac artery was divided. It was then spatulated upon to the main confluence of those 3 vessels with Dykes scissors and an 11-blade knife. The stump of the celiac was oversewn with a 5-0 Prolene. Side biting clamps were then placed across the aorta, arteriotomy made. A 7 mm [place]-Brad graft was then anastomosed to the side of the aorta using an HS 6 Prolene stitch. The clamps were then released. There was good pulsatile flow through the graft. The graft was irrigated with heparin, clamped, the graft was then trimmed appropriately and anastomosed to the upper part of that celiac trunk onto the main body there of those 3 vessels using an HS 7 Prolene stitch. Just prior to complete closure, forward bleeding was checked, backbleeding was checked from each of the vessels, and the closure was completed. Clamps were released, and there was good pulsatile flow in all 3 of those vessels, checked with a Doppler, and it was triphasic. The patient was then given 30 mg of protamine, some Fibrillar and Surgicel packed around the suture line, and after irrigations, peritoneum was sewn over the graft with a running 2-0 Vicryl. All retractors, sponge, and instruments were removed. The omentum was then placed back over the small bowel. The incision in the abdomen closed with running #1 PDS, hafsa for the skin. Sterile dressings were applied. She tolerated the procedure well and left the operating room in stable condition. ESTIMATED BLOOD LOSS: About 150 mL. MARGARITO CHAVEZ MD DR: KARIN/faraz JOB#: [id number] / [id number]
[2016-07-22] MEDS ORDERED: MAGNESIUM SULFATE 2GM 50 ML IV PRN (07:00)
[2016-07-22 08:33] LABS: BASO % 0 % (0-3); EOS % 0 % (0-3); HEMOGLOBIN 8.1 g/dL (12.0-15.5); LYMPH # 0.5 x10^3/uL (1.0-4.8); LYMPH % 3 % (24-48); MEAN CORPUSCULAR HEMOGLOBIN 29 pg (25-35); MEAN CORPUSCULAR HGB CONC 32 g/dL (31-37); MEAN CORPUSCULAR VOLUME 90 fL (79-100); MONO % 3 % (0-9); NEUT % 94 % (31-73); PLATELET COUNT 198 x10^3/uL (140-400); RED BLOOD COUNT 2.78 x10^6/uL (3.50-5.40); RED CELL DISTRIBUTION WIDTH 15.5 % (11.5-14.5); WHITE BLOOD COUNT 16.5 x10^3/uL (4.0-11.0)
[2016-07-22 08:41] LABS: CALCIUM 9.2 mg/dL (8.5-10.1); CREATININE 7.7 mg/dL (0.6-1.0); GFR 6.6; MAGNESIUM 2.2 mg/dL (1.8-2.4)
[2016-07-22 08:44] LABS: POTASSIUM 6.2 mmol/L (3.5-5.1)
--- NOTE | 2016-07-22 08:48 | PDOC1 ---
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 She has a h/ o RUQ abdominal pain chronic since cholecystectomy January 2016. An extensive work up has been done with MRA of the abdomen revealing occluded celiac artery. IR attempted stent placement was unsuccessful. Initially it was thought the occluded celiac artery was not the source of the pain as there were adequate collaterals. After the last admission vascular surgery was consulted and it was decided surgical repair was warranted. She was admitted yesterday and underwent exploration of celiac artery, division of all the tara fibers and the scar tissue and tight fibers and muscle fibers around the celiac trunk, and a celiac artery bypass using a 7 mm [place]-Brad by Dr. Montiel. Currently she is admitted to the ICU post operatively for malignant HTN. Currently she is on Cardene infusion. Problem List Problems Medical Problems: (1) Abdominal pain Status: Acute Past Medical History Cardiovascular: CAD, CHF (diastolic, EF normal ECHO 01/2016), HTN (hypertensive heart disease ), Hyperlipidemia, Valve insufficiency (mild AR MR), Pulmonary hypertension Pulmonary: Asthma CENTRAL NERVOUS SYSTEM: CVA (old with L sided weakness persisting ) GI: GERD, Other Heme/Onc: Anemia NOS (ESRD/Fe) Psych: Anxiety, Depression Musculoskeletal: Osteoarthritis Renal/: Chronic renal failure (ESRD HD 3x weekly ) Endocrine: Diabetes (Type II ), Hyperparathyroidism (secondary ) Past Surgical History PSH Fistula LUE Sep 2015 Past Surgical History: Cholecystectomy, Cataract Removal (2012), Hysterectomy ( partial ) Past Family History Family History: Alcohol Abuse (Father ), Diabetes (Mother) Past Social History PSH no h/o tobacco, ETOH, or illicit drug Review of Symptoms Review of Symptoms A 14 point ROS was completed with the following noted as positive: anxious, surgical pain, narcotic encephalopathy Other systems reviewed and negative. Medications Medications reviewed and reconciled Allergy Allergies Coded Allergies Type Severity Reaction Last Updated Verified amitriptyline Allergy Intermediate 07/21/16 Yes hydromorphone Allergy Intermediate 07/21/16 Yes lisinopril Allergy Intermediate 07/21/16 Yes metformin Allergy Intermediate 07/21/16 Yes I S O L A T I O N *CONTACT* Allergy Unknown 07/21/16 Yes Physical Exam Physical Exam General appearance - alert, ill appearing, and in mild distress Mental Status - awake, oriented to person, place, and time, anxious, narcotic encephalopathy-poor memory recall Head - normal Chest - clear to auscultation, no wheezes, rales or rhonchi, symmetric air entry Heart - S1 and S2 normal Abdomen - soft, + tender, nondistended, NG R nare-intermittent suction light gastric green return. Neurological - no acute focal neurological deficit noted. Musculoskeletal - no muscular tenderness noted Extremities - no pedal edema Skin - warm and dry VTE Prophylaxis Ordered VTE Prophylaxis Devices: Yes VTE Pharmacological Prophylaxi: No Assessment Labs Laboratory Tests Test 07/21/16 12:20 07/21/16 16:47 07/21/16 20:36 White Blood Count 5.5x10^3/uL (4.0-11.0) Red Blood Count 3.28x10^6/uL (3.50-5.40) Hemoglobin 9.6g/dL (12.0-15.5) Hematocrit 30.0% (36.0-47.0) Mean Corpuscular Volume 92fL (79-100) Mean Corpuscular Hemoglobin 29pg (25-35) Mean Corpuscular Hemoglobin Concent 32g/dL (31-37) Red Cell Distribution Width 14.9% (11.5-14.5) Platelet Count 224x10^3/uL (140-400) Neutrophils (%) (Auto) 84% (31-73) Lymphocytes (%) (Auto) 10% (24-48) Monocytes (%) (Auto) 4% (0-9) Eosinophils (%) (Auto) 2% (0-3) Basophils (%) (Auto) 1% (0-3) Neutrophils # (Auto) 4.6x10^3uL (1.8-7.7) Lymphocytes # (Auto) 0.6x10^3/uL (1.0-4.8) Monocytes # (Auto) 0.2x10^3/uL (0.0-1.1) Eosinophils # (Auto) 0.1x10^3/uL (0.0-0.7) Basophils # (Auto) 0.0x10^3/uL (0.0-0.2) Prothrombin Time 13.5SEC (11.7-14.0) Prothromb Time International Ratio 1.1 (0.8-1.1) Activated Partial Thromboplast Time 28SEC (24-38) Sodium Level 139mmol/L (136-145) Potassium Level 5.7mmol/L (3.5-5.1) Chloride Level 104mmol/L (98-107) Carbon Dioxide Level 27mmol/L (21-32) Anion Gap 8 (6-14) Blood Urea Nitrogen 43mg/dL (7-20) Creatinine 7.1mg/dL (0.6-1.0) Estimated GFR (Cockcroft-Gault) 7.3 Glucose Level 122mg/dL (70-99) Calcium Level 10.4mg/dL (8.5-10.1) Glucose (Fingerstick) 156mg/dL (70-99) 150mg/dL (70-99) Laboratory Tests Test 07/21/16 12:20 07/21/16 16:47 07/21/16 20:36 White Blood Count 5.5x10^3/uL (4.0-11.0) Red Blood Count 3.28x10^6/uL (3.50-5.40) Hemoglobin 9.6g/dL (12.0-15.5) Hematocrit 30.0% (36.0-47.0) Mean Corpuscular Volume 92fL (79-100) Mean Corpuscular Hemoglobin 29pg (25-35) Mean Corpuscular Hemoglobin Concent 32g/dL (31-37) Red Cell Distribution Width 14.9% (11.5-14.5) Platelet Count 224x10^3/uL (140-400) Neutrophils (%) (Auto) 84% (31-73) Lymphocytes (%) (Auto) 10% (24-48) Monocytes (%) (Auto) 4% (0-9) Eosinophils (%) (Auto) 2% (0-3) Basophils (%) (Auto) 1% (0-3) Neutrophils # (Auto) 4.6x10^3uL (1.8-7.7) Lymphocytes # (Auto) 0.6x10^3/uL (1.0-4.8) Monocytes # (Auto) 0.2x10^3/uL (0.0-1.1) Eosinophils # (Auto) 0.1x10^3/uL (0.0-0.7) Basophils # (Auto) 0.0x10^3/uL (0.0-0.2) Prothrombin Time 13.5SEC (11.7-14.0) Prothromb Time International Ratio 1.1 (0.8-1.1) Activated Partial Thromboplast Time 28SEC (24-38) Sodium Level 139mmol/L (136-145) Potassium Level 5.7mmol/L (3.5-5.1) Chloride Level 104mmol/L (98-107) Carbon Dioxide Level 27mmol/L (21-32) Anion Gap 8 (6-14) Blood Urea Nitrogen 43mg/dL (7-20) Creatinine 7.1mg/dL (0.6-1.0) Estimated GFR (Cockcroft-Gault) 7.3 Glucose Level 122mg/dL (70-99) Calcium Level 10.4mg/dL (8.5-10.1) Glucose (Fingerstick) 156mg/dL (70-99) 150mg/dL (70-99) PNEUMONIA DUE TO: Anaerobic Bacteria Plan Plan 1. 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 malignant HTN 3. DM II insulin 4. ESRD secondary to hypertensive kidney disease 5. asthma 6. CAD 7. hyperlipidemia 8. GERD 9. hyperlipidemia 10. 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 severe chronic PCL malnutrition 12. pulmonary HTN 13. tr AR, MR 14. CHF diastolic normal EF not acute PLAN: abdominal pain/occluded celiac artery vascular surgery consulted s/p revascularization 07/21 ESRD renal consulted dialysis TTS malignant HTN Currently on Cardene Home meds: norvasc 10mg daily clonidine 0.2mg tid coreg 25mg bid hydralazine 100mg tid cozaar 100mg daily Begin IV: hydralazine 50mg q8h and prn 10mg IV q2h lopressor 5mg IV q6h catapress 0.2mg topical-takes 3 days to onset lisinopril allergy: pt cannot recall SE, no memory of facial or tongue swelling. May be able to start vasotec 2.5mg IV o1qm--ulyig decision to Dr. Dang. DM II FSBS/SSI Levemir 10u hs BS 122-156 DVT/GI prophylaxis SCD/JEN PPI For more details regarding further plans, please refer to the orders. GAURAV DANG MD 07/22/16 1023: HISTORY AND PHYSICAL Plan Plan Patient is confused.Acute metabolic encephalopathy. Getting dialysis. D/w .Celiac artery decompressed and bypassed. BP improving control. No need for Vasotec. The patient was seen and examined by me. Chart reviewed and plan of care formulated. Discussed with, reviewed and agree with RETREAD OPERATOR's notes, plan of care and orders with modifications as necessary. For more details regarding further plans, please refer to the orders. RUT EDWARDS APRN Jul 22, 2016 08:48 GAURAV DANG MD Jul 22, 2016 10:23
[2016-07-22] MEDS: DOCUSATE SODIUM 100 MG CAPSULE PO SCH ×2 (09:00→21:50)
[2016-07-22] MEDS ORDERED: hydrALAZINE 20 MG/ML VIAL. IVP SCH (09:00)
[2016-07-22] MEDS ORDERED: METOPROLOL TARTRATE 5 MG/5 ML VIAL. IVP SCH (09:00)
[2016-07-22] MEDS ORDERED: CLONIDINE TTS-2 PATCH TD SCH (09:00)
[2016-07-22] MEDS ORDERED: IV NORMAL SALINE 1000ML BAG 1,000 ML IV PRN ×2 (09:50)
[2016-07-22] MEDS ORDERED: DIALYSIS PATIENT. MC PRN ×2 (10:00)
--- NOTE | 2016-07-22 10:08 | PDOC ---
Provider Note Provider Note 1 Post op celiac decompression and aorto to celiac bypass with 7 mm [place] Brad graft Fairly comfortable, On Cardene drip to control BP, has not taken AM meds, On dialysis now Non labored respirations Abd. soft, non distended, dressing intact 2+ popliteal pulses, calves soft no edema Lab: H/H 8.07/01, K 6.2, Mag 2.2 Imp : Stable post op HTN High potassium Plan: DC ng, done Clear lig. diet and advance as cassie. Restart meds orally for HTN and taper off cardene Chair TID Transfer to tele SCOTT,PATRICIA Lvie MD Jul 22, 2016 10:08
[2016-07-22 10:27] LABS: PLT ESTIMATE ADEQUATE (ADEQUATE)
[2016-07-22 10:32] LABS: ANISOCYTOSIS SLIGHT; BURR CELLS FEW; HELMET CELLS OCC; OVALOCYTES FEW; POIKILOCYTOSIS PRESENT; SCHISTOCYTES OCC; TEAR DROP CELLS OCC
[2016-07-22] MEDS ORDERED: METOCLOPRAMIDE HCL 10 MG/2 ML VIAL. IV PRN (10:45)
--- NOTE | 2016-07-22 11:06 | PDOC2 ---
CONSULT Date of Consult Date of Consult DATE: 07/22/16 TIME: 11:00 Reason for Consult Reason for Consult: ESRD Referring Physician Referring Physician: ALTON Identification/Chief Complaint Chief Complaint ABD PAIN Source Source: Chart review History of Present Illness Reason for Visit: THIS IS A 56 YR OLD ADMITTED WITH ABD PAIN. SHEHAS UNDERGONE A CELIAC ARTERY BYPASS SURGERY. SHE HAS ESRD AND IS ON HD MWF. LABS ARE C/W THIS. SHE IS SLIGHTLY CONFUSED DUE TO HER ANALGESICS Past Medical History Cardiovascular: CAD, CHF (diastolic, EF normal ECHO 01/2016), HTN (hypertensive heart disease ), Hyperlipidemia, Valve insufficiency (mild AR MR), Pulmonary hypertension Pulmonary: Asthma CENTRAL NERVOUS SYSTEM: CVA (old with L sided weakness persisting ) GI: GERD, Other Heme/Onc: Anemia NOS (ESRD/Fe) Psych: Anxiety, Depression Musculoskeletal: Osteoarthritis Renal/: Chronic renal failure (ESRD HD 3x weekly ) Endocrine: Diabetes (Type II ), Hyperparathyroidism (secondary ) Past Surgical History Past Surgical History: Cholecystectomy, Cataract Removal (2012), Hysterectomy ( partial ) Family History Family History: Alcohol Abuse (Father ), Diabetes (Mother) Social History ALCOHOL: none Drugs: None Lives: with Family Current Problem List Problem List Problems Medical Problems: (1) Abdominal pain Status: Acute Current Medications Current Medications Current Medications Heparin Sodium (Porcine) 5000 unit/Sodium Chloride 505 ml @ 505 mls/hr 1X PERIOP ONCE IRR Last administered on 07/21/16 14:06; Start 07/21/16 at 06:00 ; Stop 07/21/16 at 06:59; Status DC Cefazolin Sodium/ Sodium Chloride (Ancef/Iv Sodium Chloride 0.9% 500ml Bag) 500 ml @ 500 mls/hr 1X PERIOP ONCE IRR Last administered on 07/21/16 14:06; Start 07/21/16 at 06:00; Stop 07/21/16 at 06:59; Status DC Ondansetron HCl (Zofran) 4 mg PRN Q6HRS PRN IV Nausea; Start 07/21/16 at 07:00 ; Stop 07/21/16 at 18:00; Status DC Fentanyl Citrate (Fentanyl 2ml Vial) 25 mcg PRN Q5MIN PRN IV MILD PAIN Last administered on 07/21/16 17:19; Start 07/21/16 at 07:00; Stop 07/21/16 at 18:00 ; Status DC Fentanyl Citrate (Fentanyl 2ml Vial) 50 mcg PRN Q5MIN PRN IV MODERATE PAIN; Start 07/21/16 at 07:00; Stop 07/21/16 at 16:00; Status DC Morphine Sulfate 1 mg 1 mg PRN Q10MIN PRN IV SEVERE PAIN; Start 07/21/16 at 07: 00; Stop 07/21/16 at 07:00; Status DC Lactated Ringer's (Iv Lactated Ringers) 1,000 ml @ 30 mls/hr Q24H IV ; Start at 07:00; Stop 07/21/16 at 19:00; Status DC Lidocaine HCl 2 ml 1X PRN PRN ID IV START; Start 07/21/16 at 07:00; Stop at 18:00; Status DC Prochlorperazine Edisylate 5 mg 5 mg PACU PRN PRN IV NAUSEA Last administered on 07/21/16t 17:26; Start 07/21/16 at 07:00; Stop 07/21/16 at 18:00; Status DC Cefazolin Sodium/ Dextrose 50 ml @ 100 mls/hr 1X ONCE IV Last administered on 07/21/16t 14:00; Start 07/21/16 at 08:00; Stop 07/21/16 at 08:29; Status DC Sodium Chloride (Iv Sodium Chloride 0.9% 1000ml Bag) 1,000 ml @ 0 mls/hr 1X ONCE IV ; Start 07/21/16 at 12:15; Stop 07/21/16 at 12:16; Status DC Heparin Sodium (Porcine) 86734 unit 10,000 unit STK-MED ONCE .ROUTE ; Start at 12:48; Stop 07/21/16 at 12:49; Status DC Propofol (Diprivan) 20 ml @ As Directed STK-MED ONCE IV ; Start 07/21/16 at 12: 51; Stop 07/21/16 at 12:52; Status DC Lidocaine HCl 100 mg STK-MED ONCE .ROUTE ; Start 07/21/16 at 12:51; Stop at 12:52; Status DC Fentanyl Citrate (Fentanyl 2ml Vial) 100 mcg STK-MED ONCE .ROUTE ; Start at 12:51; Stop 07/21/16 at 12:52; Status DC Rocuronium O'Neals (Zemuron) 50 mg STK-MED ONCE .ROUTE ; Start 07/21/16 at 12:51 ; Stop 07/21/16 at 12:52; Status DC Cellulose 1 each STK-MED ONCE .ROUTE Last administered on 07/21/16 15:44; Start 07/21/16 at 12:54; Stop 07/21/16 at 12:55; Status DC Cellulose 1 each STK-MED ONCE .ROUTE ; Start 07/21/16 at 12:54; Stop 07/21/16 at 12:55; Status DC Phenylephrine HCl 10 mg 10 mg STK-MED ONCE .ROUTE ; Start 07/21/16 at 12:54; Stop 07/21/16 at 12:55; Status DC Cefazolin Sodium/ Dextrose (Ancef 2gm Premix) 50 ml @ 100 mls/hr Q6H IV Last administered on 07/22/16 08:17; Start 07/21/16 at 20:00; Stop 07/22/16 at 08:29 ; Status DC Aspirin (Ecotrin) 81 mg DAILYWBKFT PO ; Start 07/22/16 at 08:00 Clopidogrel Bisulfate (Plavix) 75 mg DAILYWBKFT PO ; Start 07/22/16 at 08:00 Al Hydroxide/Mg Hydroxide (Mylanta Plus Xs) 30 ml PRN Q3HRS PRN PO HEARTBURN / GAS; Start 07/21/16 at 13:15 Calcium Carbonate/ Glycine (Tums) 500 mg PRN Q3HRS PRN PO INDIGESTION; Start at 13:15 Diphenhydramine HCl (Benadryl) 25 mg PRN Q6HRS PRN PO ITCHING; Start 07/21/16 at 13:15 Diphenhydramine HCl (Benadryl) 25 mg PRN Q6HRS PRN IV ITCHING; Start 07/21/16 at 13:15 Naloxone HCl (Narcan) 0.1 mg PRN Q2MIN PRN IV ADMIN; Start 07/21/16 at 13:15 Sodium Chloride (Normal Saline Flush) 3 ml QSHIFT PRN IV AFTER MEDS AND BLOOD DRAWS; Start 07/21/16 at 13:15 Oxycodone/ Acetaminophen (Percocet 5/325) 1 tab PRN Q4HRS PRN PO MILD PAIN, 1ST CHOICE; Start 07/21/16 at 13:15 Docusate Sodium (Colace) 100 mg BID PO ; Start 07/21/16 at 21:00 Ondansetron HCl (Zofran) 4 mg PRN Q6HRS PRN IV NAUESA, 1ST CHOICE; Start at 13:15 Prochlorperazine Edisylate (Compazine) 5 mg PRN Q6HRS PRN IV N/V, 2nd Choice, MR X1; Start 07/21/16 at 13:15 Fentanyl Citrate (Fentanyl 2ml Vial) 100 mcg STK-MED ONCE .ROUTE ; Start at 14:09; Stop 07/21/16 at 14:10; Status DC Heparin Sodium (Porcine) 30,000 unit STK-MED ONCE .ROUTE ; Start 07/21/16 at 14: 14; Stop 07/21/16 at 14:15; Status DC Rocuronium O'Neals (Zemuron) 50 mg STK-MED ONCE .ROUTE ; Start 07/21/16 at 14:36 ; Stop 07/21/16 at 14:37; Status DC Protamine Sulfate 250 mg STK-MED ONCE IV ; Start 07/21/16 at 15:59; Stop at 16:00; Status DC Glycopyrrolate (Robinul) 1 mg STK-MED ONCE .ROUTE ; Start 07/21/16 at 16:04; Stop 07/21/16 at 16:05; Status DC Neostigmine Methylsulfate 5 mg STK-MED ONCE .ROUTE ; Start 07/21/16 at 16:04; Stop 07/21/16 at 16:05; Status DC Fentanyl Citrate (Fentanyl 2ml Vial) 50 mcg PRN Q5MIN PRN IV Acute Pain Last administered on 07/21/16t 18:47; Start 07/21/16 at 17:30; Stop 07/22/16 at 08:43 ; Status DC Hydralazine HCl (Apresoline) 10 mg PRN Q15MIN PRN IVP SBP Greater Than 180 Last administered on 07/21/16 18:46; Start 07/21/16 at 17:30; Stop 07/22/16 at 08:43; Status DC Hydralazine HCl (Apresoline) 20 mg STK-MED ONCE .ROUTE ; Start 07/21/16 at 17:24 ; Stop 07/21/16 at 17:29; Status DC Fentanyl Citrate (Fentanyl 2ml Vial) 25 mcg PRN Q2HR PRN IV PAIN; Start at 18:45 Fentanyl Citrate (Fentanyl 2ml Vial) 50 mcg PRN Q2HR PRN IV PAIN SEV Last administered on 07/22/16 08:06; Start 07/21/16 at 18:45 Hydralazine HCl (Apresoline) 10 mg PRN Q2HR PRN IVP ELEVATED BP, SEE COMMENTS; Start 07/21/16 at 18:45 Hydralazine HCl (Apresoline) 20 mg PRN Q2HR PRN IVP ELEVATED BP, SEE COMMENTS Last administered on 07/22/16 02:17; Start 07/21/16 at 18:45; Stop 07/22/16 at 08:43; Status DC Metoprolol Tartrate 10 mg 10 mg PRN Q6HRS PRN IVP ELEVATED BP, SEE COMMENTS; Start 07/21/16 at 18:45; Stop 07/22/16 at 12:00 Nicardipine HCl 50 mg/Sodium Chloride 270 ml @ 0 mls/hr CONT PRN IV SEE I/O RECORD Last administered on 07/22/16 08:09; Start 07/21/16 at 19:30 Magnesium Sulfate/ Dextrose (Magnesium Sulfate PREMIX 2GM) 50 ml @ 25 mls/hr PRN DAILY PRN IV for Mag < 1.7 on am labs; Start 07/22/16 at 07:00 Metoprolol Tartrate (Lopressor) 5 mg Q6HRS IVP ; Start 07/22/16 at 09:00 Hydralazine HCl (Apresoline) 50 mg Q8HRS IVP ; Start 07/22/16 at 09:00 Clonidine HCl 1 patch 1 patch WEEKLY TD ; Start 07/22/16 at 09:00 Sodium Chloride 1,000 ml @ 1,000 mls/hr Q1H PRN IV hypotension; Start 07/22/16 at 09:50; Stop 07/22/16 at 10:13; Status DC Sodium Chloride (Iv Sodium Chloride 0.9% 1000ml Bag) 1,000 ml @ 400 mls/hr Q2H30M PRN IV PATENCY; Start 07/22/16 at 09:50; Stop 07/22/16 at 10:13; Status DC Info (PHARMACY MONITORING -- do not chart) 1 each PRN DAILY PRN MC SEE COMMENTS ; Start 07/22/16 at 10:00 Info (PHARMACY MONITORING -- do not chart) 1 each PRN DAILY PRN MC SEE COMMENTS ; Start 07/22/16 at 10:00; Status UNV Metoclopramide HCl (Reglan) 5 mg TIDAC PRN IV NAUSEA/VOMITING; Start 07/22/16 at 10:45; Stop 07/22/16 at 10:49; Status DC Metoclopramide HCl (Reglan) 5 mg TIDAC IV ; Start 07/22/16 at 11:30 Active Scripts Active Ondansetron Odt (Ondansetron) 4 Mg Tab.rapdis 4 Mg PO PRN Q8HRS PRN Hydralazine Hcl 100 Mg Tablet 1 Tab PO TID Nephro-Donny Tablet (Folic Acid/Vitamin B Comp W-C) 0.8 Mg Tablet 1 Tab PO DAILY Benadryl (Diphenhydramine Hcl) 25 Mg Capsule 25 Mg PO PRN Q6HRS PRN Clonidine Hcl 0.2 Mg Tablet 0.2 Mg PO Q8HRS Amlodipine Besylate 10 Mg Tablet 10 Mg PO DAILY Reported Novolog (Insulin Aspart) 100 Unit/1 Ml Cartridge 100 Unit SQ TIDAC per sliding scale Zoloft (Sertraline Hcl) 100 Mg Tablet 1 Tab PO DAILY Pantoprazole Sodium 40 Mg Tablet.dr 1 Tab PO DAILY Reglan (Metoclopramide Hcl) 10 Mg Tablet 5 Mg PO TIDAC Oxycodone Hcl 5 Mg Capsule 1 Cap PO QID PRN Phoslo (Calcium Acetate) 667 Mg Capsule 1,334 Mg PO TIDWMEALS Losartan Potassium 100 Mg Tablet 100 Mg PO DAILY Levemir (Insulin Detemir) 100 Unit/1 Ml Vial 8 Unit SQ HS Coreg (Carvedilol) 25 Mg Tablet 25 Mg PO BIDWMEALS Atorvastatin Calcium 40 Mg Tablet 40 Mg PO HS Aspir 81 (Aspirin) 81 Mg Tablet.dr 81 Mg PO DAILY Allergies Allergies: Coded Allergies: amitriptyline (Verified Allergy, Intermediate, 07/21/16) hydromorphone (Verified Allergy, Intermediate, 07/21/16) lisinopril (Verified Allergy, Intermediate, 07/21/16) metformin (Verified Allergy, Intermediate, 07/21/16) I S O L A T I O N *CONTACT* (Verified Allergy, Unknown, 07/21/16) mrsa ROS Review of System UNABLE TO OBTAIN Physical Exam General: Alert, Cooperative HEENT: Atraumatic, PERRLA Lungs: Clear to auscultation Heart: Regular rate, Normal S1, Normal S2 Abdomen: Normal bowel sounds Extremities: No clubbing Neuro: Other (CONFUSED) Psych/Mental Status: Other (CONFUSED) MUSCULOSKELETAL: No deformity, No swelling Vitals VITALS Vital Signs Date Time Temp Pulse Resp B/P Pulse Ox O2 Delivery O2 Flow Rate FiO2 07/22/16 08:00 Room Air 07/22/16 07:00 62 20 152/58 100 07/22/16 04:00 98.3 98.3 07/21/16 17:12 10.0 Labs Labs Laboratory Tests Test 07/21/16 12:20 07/21/16 16:47 07/21/16 20:36 07/22/16 08:10 White Blood Count 5.5x10^3/uL (4.0-11.0) 16.5x10^3/uL (4.0-11.0) Red Blood Count 3.28x10^6/uL (3.50-5.40) 2.78x10^6/uL (3.50-5.40) Hemoglobin 9.6g/dL (12.0-15.5) 8.1g/dL (12.0-15.5) Hematocrit 30.0% (36.0-47.0) 25.0% (36.0-47.0) Mean Corpuscular Volume 92fL (79-100) 90fL (79-100) Mean Corpuscular Hemoglobin 29pg (25-35) 29pg (25-35) Mean Corpuscular Hemoglobin Concent 32g/dL (31-37) 32g/dL (31-37) Red Cell Distribution Width 14.9% (11.5-14.5) 15.5% (11.5-14.5) Platelet Count 224x10^3/uL (140-400) 198x10^3/uL (140-400) Neutrophils (%) (Auto) 84% (31-73) 94% (31-73) Lymphocytes (%) (Auto) 10% (24-48) 3% (24-48) Monocytes (%) (Auto) 4% (0-9) 3% (0-9) Eosinophils (%) (Auto) 2% (0-3) 0% (0-3) Basophils (%) (Auto) 1% (0-3) 0% (0-3) Neutrophils # (Auto) 4.6x10^3uL (1.8-7.7) 15.5x10^3uL (1.8-7.7) Lymphocytes # (Auto) 0.6x10^3/uL (1.0-4.8) 0.5x10^3/uL (1.0-4.8) Monocytes # (Auto) 0.2x10^3/uL (0.0-1.1) 0.5x10^3/uL (0.0-1.1) Eosinophils # (Auto) 0.1x10^3/uL (0.0-0.7) 0.0x10^3/uL (0.0-0.7) Basophils # (Auto) 0.0x10^3/uL (0.0-0.2) 0.0x10^3/uL (0.0-0.2) Prothrombin Time 13.5SEC (11.7-14.0) Prothromb Time International Ratio 1.1 (0.8-1.1) Activated Partial Thromboplast Time 28SEC (24-38) Sodium Level 139mmol/L (136-145) 137mmol/L (136-145) Potassium Level 5.7mmol/L (3.5-5.1) 6.2mmol/L (3.5-5.1) Chloride Level 104mmol/L (98-107) 102mmol/L (98-107) Carbon Dioxide Level 27mmol/L (21-32) 20mmol/L (21-32) Anion Gap 8 (6-14) 15 (6-14) Blood Urea Nitrogen 43mg/dL (7-20) 55mg/dL (7-20) Creatinine 7.1mg/dL (0.6-1.0) 7.7mg/dL (0.6-1.0) Estimated GFR (Cockcroft-Gault) 7.3 6.6 Glucose Level 122mg/dL (70-99) 199mg/dL (70-99) Calcium Level 10.4mg/dL (8.5-10.1) 9.2mg/dL (8.5-10.1) Glucose (Fingerstick) 156mg/dL (70-99) 150mg/dL (70-99) Segmented Neutrophils % 84% (35-66) Band Neutrophils % 12% (0-9) Lymphocytes % 2% (24-48) Monocytes % 2% (0-10) Platelet Estimate Adequate (ADEQUATE) Poikilocytosis Present Anisocytosis Slight Tear Drop Cells Occ Ovalocytes Few Helmet Cells Occ James Cells Few Schistocytes Occ Magnesium Level 2.2mg/dL (1.8-2.4) Test 07/22/16 10:39 Glucose (Fingerstick) 114mg/dL (70-99) Laboratory Tests Test 07/21/16 12:20 07/21/16 16:47 07/21/16 20:36 07/22/16 08:10 White Blood Count 5.5x10^3/uL (4.0-11.0) 16.5x10^3/uL (4.0-11.0) Red Blood Count 3.28x10^6/uL (3.50-5.40) 2.78x10^6/uL (3.50-5.40) Hemoglobin 9.6g/dL (12.0-15.5) 8.1g/dL (12.0-15.5) Hematocrit 30.0% (36.0-47.0) 25.0% (36.0-47.0) Mean Corpuscular Volume 92fL (79-100) 90fL (79-100) Mean Corpuscular Hemoglobin 29pg (25-35) 29pg (25-35) Mean Corpuscular Hemoglobin Concent 32g/dL (31-37) 32g/dL (31-37) Red Cell Distribution Width 14.9% (11.5-14.5) 15.5% (11.5-14.5) Platelet Count 224x10^3/uL (140-400) 198x10^3/uL (140-400) Neutrophils (%) (Auto) 84% (31-73) 94% (31-73) Lymphocytes (%) (Auto) 10% (24-48) 3% (24-48) Monocytes (%) (Auto) 4% (0-9) 3% (0-9) Eosinophils (%) (Auto) 2% (0-3) 0% (0-3) Basophils (%) (Auto) 1% (0-3) 0% (0-3) Neutrophils # (Auto) 4.6x10^3uL (1.8-7.7) 15.5x10^3uL (1.8-7.7) Lymphocytes # (Auto) 0.6x10^3/uL (1.0-4.8) 0.5x10^3/uL (1.0-4.8) Monocytes # (Auto) 0.2x10^3/uL (0.0-1.1) 0.5x10^3/uL (0.0-1.1) Eosinophils # (Auto) 0.1x10^3/uL (0.0-0.7) 0.0x10^3/uL (0.0-0.7) Basophils # (Auto) 0.0x10^3/uL (0.0-0.2) 0.0x10^3/uL (0.0-0.2) Prothrombin Time 13.5SEC (11.7-14.0) Prothromb Time International Ratio 1.1 (0.8-1.1) Activated Partial Thromboplast Time 28SEC (24-38) Sodium Level 139mmol/L (136-145) 137mmol/L (136-145) Potassium Level 5.7mmol/L (3.5-5.1) 6.2mmol/L (3.5-5.1) Chloride Level 104mmol/L (98-107) 102mmol/L (98-107) Carbon Dioxide Level 27mmol/L (21-32) 20mmol/L (21-32) Anion Gap 8 (6-14) 15 (6-14) Blood Urea Nitrogen 43mg/dL (7-20) 55mg/dL (7-20) Creatinine 7.1mg/dL (0.6-1.0) 7.7mg/dL (0.6-1.0) Estimated GFR (Cockcroft-Gault) 7.3 6.6 Glucose Level 122mg/dL (70-99) 199mg/dL (70-99) Calcium Level 10.4mg/dL (8.5-10.1) 9.2mg/dL (8.5-10.1) Glucose (Fingerstick) 156mg/dL (70-99) 150mg/dL (70-99) Segmented Neutrophils % 84% (35-66) Band Neutrophils % 12% (0-9) Lymphocytes % 2% (24-48) Monocytes % 2% (0-10) Platelet Estimate Adequate (ADEQUATE) Poikilocytosis Present Anisocytosis Slight Tear Drop Cells Occ Ovalocytes Few Helmet Cells Occ James Cells Few Schistocytes Occ Magnesium Level 2.2mg/dL (1.8-2.4) Test 07/22/16 10:39 Glucose (Fingerstick) 114mg/dL (70-99) Assessment/Plan Assessment/Plan IMP S/P CELIAC ARTERY BYPASS ANEMIA ESRD HTN PLAN ARANESP PO WHEN FEASIBLE HD TODAY UF TO DW WILL FOLLOW TING REYNA MD Jul 22, 2016 11:06
[2016-07-22] MEDS: OXYCODONE/APAP 5/325 TABLET. PO PRN ×3 (11:12→22:12)
[2016-07-22] MEDS ORDERED: METOCLOPRAMIDE HCL 10 MG/2 ML VIAL. IV SCH ×2 (11:30→13:30)
[2016-07-22] MEDS: ASPIRIN ENTERIC COATED 81 MG TABLET.DR. PO SCH (13:01)
[2016-07-22] MEDS: CLOPIDOGREL BISULFATE 75 MG TABLET PO SCH (13:02)
[2016-07-22] MEDS: SERTRALINE 50 MG TABLET. PO SCH (13:34)
[2016-07-22] MEDS: AMLODIPINE BESYLATE 10 MG TABLET PO SCH (16:30)
[2016-07-22] MEDS: METOCLOPRAMIDE 10 MG TABLET PO SCH (16:58)
[2016-07-22] MEDS: CLONIDINE HCL 0.2 MG TABLET PO SCH ×2 (16:58→22:11)
[2016-07-22] MEDS: CALCIUM ACETATE 667 MG CAPSULE PO SCH (16:58)
[2016-07-22] MEDS: LOSARTAN POTASSIUM 50 MG TABLET. PO SCH (17:00)
[2016-07-22] MEDS: CARVEDILOL 12.5 MG TABLET PO SCH (17:00)
[2016-07-22] MEDS: FOLIC/VIT B COMP W-C (RENAL) TABLET. PO SCH (17:01)
[2016-07-22] MEDS ORDERED: DARBEPOETIN ALFA 60 MCG/0.3 ML DISP.SYRIN. SQ SCH (21:00)
[2016-07-22] MEDS: HYDRALAZINE 50 MG TABLET PO SCH (21:51)
[2016-07-22] MEDS: ATORVASTATIN CALCIUM 40 MG TABLET. PO SCH (21:51)
[2016-07-23] VITALS: BP 138/60
[2016-07-23 07:00] LABS: BASO % 0 % (0-3); EOS % 0 % (0-3); HEMATOCRIT 23.9 % (36.0-47.0); HEMOGLOBIN 7.8 g/dL (12.0-15.5); LYMPH # 0.7 x10^3/uL (1.0-4.8); LYMPH % 5 % (24-48); MEAN CORPUSCULAR HEMOGLOBIN 30 pg (25-35); MEAN CORPUSCULAR HGB CONC 33 g/dL (31-37); MEAN CORPUSCULAR VOLUME 91 fL (79-100); MONO % 6 % (0-9); NEUT % 89 % (31-73); PLATELET COUNT 166 x10^3/uL (140-400); RED BLOOD COUNT 2.64 x10^6/uL (3.50-5.40); RED CELL DISTRIBUTION WIDTH 15.2 % (11.5-14.5); WHITE BLOOD COUNT 13.6 x10^3/uL (4.0-11.0)
[2016-07-23 07:17] LABS: ALBUMIN 2.8 g/dL (3.4-5.0); CALCIUM 8.5 mg/dL (8.5-10.1); CREATININE 4.7 mg/dL (0.6-1.0); GFR 11.7; PHOSPHORUS 3.5 mg/dL (2.6-4.7)
--- NOTE | 2016-07-23 07:50 | PDOC ---
[facility] [facility] [employer] 07/23/16 0750: IM PROGRESS NOTES- Subjective Subjective feels urge to void but cannot urinate Objective Objective alert, no distress Vitals Vital Signs Date Time Temp Pulse Resp B/P Pulse Ox O2 Delivery O2 Flow Rate FiO2 07/23/16 04:00 98.1 76 14 98 Room Air 98.1 07/23/16 00:00 138/60 Input & Output Intake and Output 07/23/16 07:00 Intake Total 1449 ml Output Total 100 ml Balance 1349 ml Intake Oral 1130 ml IV Total 319 ml Output Urine Total 0 ml Gastric Drainage Total 100 ml Physical Exam Physical Exam General appearance - alert ill appearing, and in no distress Mental Status - alert, oriented to person, place, and time, affect appropriate to mood Head - normal Chest - clear to auscultation, no wheezes, rales or rhonchi, symmetric air entry Heart - S1 and S2 normal Abdomen - soft, + tender, nondistended, BS +, midline abd dressing in situ Neurological - no acute focal neurological deficit noted Musculoskeletal - no muscular tenderness noted Extremities - no pedal edema Skin - warm and dry Labs Laboratory Tests Test 07/21/16 12:20 07/21/16 16:47 07/21/16 19:00 07/21/16 20:36 White Blood Count 5.5x10^3/uL (4.0-11.0) Red Blood Count 3.28x10^6/uL (3.50-5.40) Hemoglobin 9.6g/dL (12.0-15.5) Hematocrit 30.0% (36.0-47.0) Mean Corpuscular Volume 92fL (79-100) Mean Corpuscular Hemoglobin 29pg (25-35) Mean Corpuscular Hemoglobin Concent 32g/dL (31-37) Red Cell Distribution Width 14.9% (11.5-14.5) Platelet Count 224x10^3/uL (140-400) Neutrophils (%) (Auto) 84% (31-73) Lymphocytes (%) (Auto) 10% (24-48) Monocytes (%) (Auto) 4% (0-9) Eosinophils (%) (Auto) 2% (0-3) Basophils (%) (Auto) 1% (0-3) Neutrophils # (Auto) 4.6x10^3uL (1.8-7.7) Lymphocytes # (Auto) 0.6x10^3/uL (1.0-4.8) Monocytes # (Auto) 0.2x10^3/uL (0.0-1.1) Eosinophils # (Auto) 0.1x10^3/uL (0.0-0.7) Basophils # (Auto) 0.0x10^3/uL (0.0-0.2) Prothrombin Time 13.5SEC (11.7-14.0) Prothromb Time International Ratio 1.1 (0.8-1.1) Activated Partial Thromboplast Time 28SEC (24-38) Sodium Level 139mmol/L (136-145) Potassium Level 5.7mmol/L (3.5-5.1) Chloride Level 104mmol/L (98-107) Carbon Dioxide Level 27mmol/L (21-32) Anion Gap 8 (6-14) Blood Urea Nitrogen 43mg/dL (7-20) Creatinine 7.1mg/dL (0.6-1.0) Estimated GFR (Cockcroft-Gault) 7.3 Glucose Level 122mg/dL (70-99) Calcium Level 10.4mg/dL (8.5-10.1) Glucose (Fingerstick) 156mg/dL (70-99) 150mg/dL (70-99) Nasal Screen MRSA (PCR) Positive (Negative) Test 07/22/16 08:10 07/22/16 10:39 07/22/16 17:23 07/22/16 22:13 White Blood Count 16.5x10^3/uL (4.0-11.0) Red Blood Count 2.78x10^6/uL (3.50-5.40) Hemoglobin 8.1g/dL (12.0-15.5) Hematocrit 25.0% (36.0-47.0) Mean Corpuscular Volume 90fL (79-100) Mean Corpuscular Hemoglobin 29pg (25-35) Mean Corpuscular Hemoglobin Concent 32g/dL (31-37) Red Cell Distribution Width 15.5% (11.5-14.5) Platelet Count 198x10^3/uL (140-400) Neutrophils (%) (Auto) 94% (31-73) Lymphocytes (%) (Auto) 3% (24-48) Monocytes (%) (Auto) 3% (0-9) Eosinophils (%) (Auto) 0% (0-3) Basophils (%) (Auto) 0% (0-3) Neutrophils # (Auto) 15.5x10^3uL (1.8-7.7) Lymphocytes # (Auto) 0.5x10^3/uL (1.0-4.8) Monocytes # (Auto) 0.5x10^3/uL (0.0-1.1) Eosinophils # (Auto) 0.0x10^3/uL (0.0-0.7) Basophils # (Auto) 0.0x10^3/uL (0.0-0.2) Segmented Neutrophils % 84% (35-66) Band Neutrophils % 12% (0-9) Lymphocytes % 2% (24-48) Monocytes % 2% (0-10) Platelet Estimate Adequate (ADEQUATE) Poikilocytosis Present Anisocytosis Slight Tear Drop Cells Occ Ovalocytes Few Helmet Cells Occ James Cells Few Schistocytes Occ Sodium Level 137mmol/L (136-145) Potassium Level 6.2mmol/L (3.5-5.1) Chloride Level 102mmol/L (98-107) Carbon Dioxide Level 20mmol/L (21-32) Anion Gap 15 (6-14) Blood Urea Nitrogen 55mg/dL (7-20) Creatinine 7.7mg/dL (0.6-1.0) Estimated GFR (Cockcroft-Gault) 6.6 Glucose Level 199mg/dL (70-99) Calcium Level 9.2mg/dL (8.5-10.1) Magnesium Level 2.2mg/dL (1.8-2.4) Glucose (Fingerstick) 114mg/dL (70-99) 111mg/dL (70-99) 135mg/dL (70-99) Test 07/23/16 05:50 White Blood Count 13.6x10^3/uL (4.0-11.0) Red Blood Count 2.64x10^6/uL (3.50-5.40) Hemoglobin 7.8g/dL (12.0-15.5) Hematocrit 23.9% (36.0-47.0) Mean Corpuscular Volume 91fL (79-100) Mean Corpuscular Hemoglobin 30pg (25-35) Mean Corpuscular Hemoglobin Concent 33g/dL (31-37) Red Cell Distribution Width 15.2% (11.5-14.5) Platelet Count 166x10^3/uL (140-400) Neutrophils (%) (Auto) 89% (31-73) Lymphocytes (%) (Auto) 5% (24-48) Monocytes (%) (Auto) 6% (0-9) Eosinophils (%) (Auto) 0% (0-3) Basophils (%) (Auto) 0% (0-3) Neutrophils # (Auto) 12.1x10^3uL (1.8-7.7) Lymphocytes # (Auto) 0.7x10^3/uL (1.0-4.8) Monocytes # (Auto) 0.8x10^3/uL (0.0-1.1) Eosinophils # (Auto) 0.0x10^3/uL (0.0-0.7) Basophils # (Auto) 0.0x10^3/uL (0.0-0.2) Sodium Level 139mmol/L (136-145) Potassium Level 4.0mmol/L (3.5-5.1) Chloride Level 100mmol/L (98-107) Carbon Dioxide Level 32mmol/L (21-32) Anion Gap 7 (6-14) Blood Urea Nitrogen 26mg/dL (7-20) Creatinine 4.7mg/dL (0.6-1.0) Estimated GFR (Cockcroft-Gault) 11.7 Glucose Level 107mg/dL (70-99) Calcium Level 8.5mg/dL (8.5-10.1) Phosphorus Level 3.5mg/dL (2.6-4.7) Magnesium Level 1.9mg/dL (1.8-2.4) Albumin 2.8g/dL (3.4-5.0) Laboratory Tests Test 07/22/16 08:10 07/22/16 10:39 07/22/16 17:23 07/22/16 22:13 White Blood Count 16.5x10^3/uL (4.0-11.0) Red Blood Count 2.78x10^6/uL (3.50-5.40) Hemoglobin 8.1g/dL (12.0-15.5) Hematocrit 25.0% (36.0-47.0) Mean Corpuscular Volume 90fL (79-100) Mean Corpuscular Hemoglobin 29pg (25-35) Mean Corpuscular Hemoglobin Concent 32g/dL (31-37) Red Cell Distribution Width 15.5% (11.5-14.5) Platelet Count 198x10^3/uL (140-400) Neutrophils (%) (Auto) 94% (31-73) Lymphocytes (%) (Auto) 3% (24-48) Monocytes (%) (Auto) 3% (0-9) Eosinophils (%) (Auto) 0% (0-3) Basophils (%) (Auto) 0% (0-3) Neutrophils # (Auto) 15.5x10^3uL (1.8-7.7) Lymphocytes # (Auto) 0.5x10^3/uL (1.0-4.8) Monocytes # (Auto) 0.5x10^3/uL (0.0-1.1) Eosinophils # (Auto) 0.0x10^3/uL (0.0-0.7) Basophils # (Auto) 0.0x10^3/uL (0.0-0.2) Segmented Neutrophils % 84% (35-66) Band Neutrophils % 12% (0-9) Lymphocytes % 2% (24-48) Monocytes % 2% (0-10) Platelet Estimate Adequate (ADEQUATE) Poikilocytosis Present Anisocytosis Slight Tear Drop Cells Occ Ovalocytes Few Helmet Cells Occ [place] Cells Few Schistocytes Occ Sodium Level 137mmol/L (136-145) Potassium Level 6.2mmol/L (3.5-5.1) Chloride Level 102mmol/L (98-107) Carbon Dioxide Level 20mmol/L (21-32) Anion Gap 15 (6-14) Blood Urea Nitrogen 55mg/dL (7-20) Creatinine 7.7mg/dL (0.6-1.0) Estimated GFR (Cockcroft-Gault) 6.6 Glucose Level 199mg/dL (70-99) Calcium Level 9.2mg/dL (8.5-10.1) Magnesium Level 2.2mg/dL (1.8-2.4) Glucose (Fingerstick) 114mg/dL (70-99) 111mg/dL (70-99) 135mg/dL (70-99) Test 07/23/16 05:50 White Blood Count 13.6x10^3/uL (4.0-11.0) Red Blood Count 2.64x10^6/uL (3.50-5.40) Hemoglobin 7.8g/dL (12.0-15.5) Hematocrit 23.9% (36.0-47.0) Mean Corpuscular Volume 91fL (79-100) Mean Corpuscular Hemoglobin 30pg (25-35) Mean Corpuscular Hemoglobin Concent 33g/dL (31-37) Red Cell Distribution Width 15.2% (11.5-14.5) Platelet Count 166x10^3/uL (140-400) Neutrophils (%) (Auto) 89% (31-73) Lymphocytes (%) (Auto) 5% (24-48) Monocytes (%) (Auto) 6% (0-9) Eosinophils (%) (Auto) 0% (0-3) Basophils (%) (Auto) 0% (0-3) Neutrophils # (Auto) 12.1x10^3uL (1.8-7.7) Lymphocytes # (Auto) 0.7x10^3/uL (1.0-4.8) Monocytes # (Auto) 0.8x10^3/uL (0.0-1.1) Eosinophils # (Auto) 0.0x10^3/uL (0.0-0.7) Basophils # (Auto) 0.0x10^3/uL (0.0-0.2) Sodium Level 139mmol/L (136-145) Potassium Level 4.0mmol/L (3.5-5.1) Chloride Level 100mmol/L (98-107) Carbon Dioxide Level 32mmol/L (21-32) Anion Gap 7 (6-14) Blood Urea Nitrogen 26mg/dL (7-20) Creatinine 4.7mg/dL (0.6-1.0) Estimated GFR (Cockcroft-Gault) 11.7 Glucose Level 107mg/dL (70-99) Calcium Level 8.5mg/dL (8.5-10.1) Phosphorus Level 3.5mg/dL (2.6-4.7) Magnesium Level 1.9mg/dL (1.8-2.4) Albumin 2.8g/dL (3.4-5.0) Meds Current Medications Amlodipine Besylate (Norvasc) 10 mg DAILY PO Last administered on 07/22/16 16: 30; Start 07/22/16 at 16:30 Aspirin (Ecotrin) 81 mg DAILY PO ; Start 07/23/16 at 09:00; Status UNV Aspirin (Ecotrin) 81 mg DAILYWBKFT PO Last administered on 07/22/16 13:01; Start 07/22/16 at 08:00 Atorvastatin Calcium (Lipitor) 40 mg HS PO Last administered on 07/22/16 21:51 ; Start 07/22/16 at 21:00 Calcium Acetate (Phoslo) 1,334 mg TIDWMEALS PO Last administered on 07/22/16 16:58; Start 07/22/16 at 17:00 Carvedilol (Coreg) 25 mg BIDWMEALS PO Last administered on 07/22/16 17:00; Start 07/22/16 at 17:00 Clonidine HCl (Catapres) 0.2 mg Q8HRS PO Last administered on 07/22/16 22:11; Start 07/22/16 at 16:30 Clonidine HCl 1 patch 1 patch WEEKLY TD ; Start 07/22/16 at 09:00; Stop at 15:59; Status DC Clopidogrel Bisulfate (Plavix) 75 mg DAILYWBKFT PO Last administered on 13:02; Start 07/22/16 at 08:00 Darbepoetin Ty (Aranesp) 60 mcg WEEKLYHS SQ Last administered on 07/22/16 21 :51; Start 07/22/16 at 21:00 Hydralazine HCl (Apresoline) 50 mg Q8HRS IVP Last administered on 07/22/16 11: 33; Start 07/22/16 at 09:00; Stop 07/22/16 at 15:59; Status DC Hydralazine HCl (Apresoline) 100 mg TID PO Last administered on 07/22/16 21:51 ; Start 07/22/16 at 21:00 Info (PHARMACY MONITORING -- do not chart) 1 each PRN DAILY PRN MC SEE COMMENTS ; Start 07/22/16 at 10:00 Info (PHARMACY MONITORING -- do not chart) 1 each PRN DAILY PRN MC SEE COMMENTS ; Start 07/22/16 at 10:00; Status UNV Losartan Potassium (Cozaar) 100 mg DAILY PO Last administered on 07/22/16 17: 00; Start 07/22/16 at 16:30 Metoclopramide HCl (Reglan) 2.5 mg TIDAC IV ; Start 07/22/16 at 13:30; Stop at 15:59; Status DC Metoclopramide HCl (Reglan) 5 mg TIDAC IV ; Start 07/22/16 at 11:30; Stop at 13:01; Status DC Metoclopramide HCl (Reglan) 5 mg TIDAC PO Last administered on 07/22/16 16:58 ; Start 07/22/16 at 16:30 Metoclopramide HCl (Reglan) 5 mg TIDAC PRN IV NAUSEA/VOMITING; Start 07/22/16 at 10:45; Stop 07/22/16 at 10:49; Status DC Metoprolol Tartrate (Lopressor) 5 mg Q6HRS IVP Last administered on 07/22/16 12:50; Start 07/22/16 at 09:00; Stop 07/22/16 at 15:59; Status DC Pantoprazole Sodium (Protonix) 40 mg DAILYAC PO ; Start 07/23/16 at 07:30 Sertraline HCl (Zoloft) 100 mg DAILY PO Last administered on 07/22/16 13:34; Start 07/22/16 at 12:00 Sodium Chloride 1,000 ml @ 1,000 mls/hr Q1H PRN IV hypotension; Start 07/22/16 at 09:50; Stop 07/22/16 at 10:13; Status DC Sodium Chloride (Iv Sodium Chloride 0.9% 1000ml Bag) 1,000 ml @ 400 mls/hr Q2H30M PRN IV PATENCY; Start 07/22/16 at 09:50; Stop 07/22/16 at 10:13; Status DC Assessment Assessment Plan 1. 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 malignant HTN 3. DM II insulin 4. ESRD secondary to hypertensive kidney disease 5. asthma 6. CAD 7. hyperlipidemia 8. GERD 9. hyperlipidemia 10. 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 severe chronic PCL malnutrition 12. pulmonary HTN 13. tr AR, MR 14. CHF diastolic normal EF not acute 15. acute metabolic encephalopathy not POA PLAN: abdominal pain/occluded celiac artery s/p celiac decompression and aorto to celiac bypass with 7 mm [place] Brad graft vascular surgery consulted ESRD renal consulted dialysis TTS malignant HTN Currently on Cardene Home meds: norvasc 10mg daily clonidine 0.2mg tid coreg 25mg bid hydralazine 100mg tid cozaar 100mg daily Begin IV: hydralazine 50mg q8h and prn 10mg IV q2h lopressor 5mg IV q6h catapress 0.2mg topical-takes 3 days to onset IV medications stopped 07/21-oral meds restarted HTN controlled lisinopril allergy: pt cannot recall SE, no memory of facial or tongue swelling. May be able to start vasotec 2.5mg IV [id number]--tdreb decision to Dr. Dang. DM II FSBS/SSI Levemir 10u hs BS 107-135 DVT/GI prophylaxis SCD/JEN PPI Anemia Admit 9.6 07/23 7.8 monitor leukocytosis w/o fever Admite 5.5 07/23 13.6 (decreased from 07/22) urge to void will bladder scan per daughter, UOP minimal prior to surgery For more details regarding further plans, please refer to the orders. PNEUMONIA DUE TO: Anaerobic Bacteria Plan Plan For more details regarding further plans, please refer to the orders. GAURAV DANG MD 07/23/16 1010: IM PROGRESS NOTES- Assessment Assessment The patient was seen and examined by me. Chart reviewed and plan of care formulated. Discussed with, reviewed and agree with PLANE CAPTAIN's notes, plan of care and orders with modifications as necessary. For more details regarding further plans, please refer to the orders. RUT EDWARDS APRN Jul 23, 2016 07:50 GAURAV DANG MD Jul 23, 2016 10:10
--- NOTE | 2016-07-23 07:54 | DISCH ---
DISCHARGE FINAL DIAGNOSIS Problems Medical Problems: (1) Abdominal pain Status: Acute CONDITION ON DISCHARGE: Stable POST DISCHARGE ORDERS ACTIVITY ORDERS: Activity as tolerated WEIGHT BEARING STATUS: As tolerated BATHING ORDERS: Shower-keep dressing dry DIET AFTER DISCHARGE: Cardiac (no concentrated sweets renal ) WOUND/INCISION CARE: Change dressing (per Dr. Maldonado instructions) CHECKS AFTER DISCHARGE COMMENTS: Check blood sugar in am and at supper FOLLOW-UP PHYSICIAN FOLLOW-UP: Dr. Ng in 3-5 days ADDITIONAL FOLLOW-UP: Dr. Maldonado instructions RUT EDWARDS APRN Jul 23, 2016 07:54
[2016-07-23 08:00] VITALS: BP 133/52
[2016-07-23] MEDS ORDERED: OXYC5TAB PO (08:02)
[2016-07-23] MEDS: CLONIDINE HCL 0.2 MG TABLET PO SCH ×3 (08:16→23:08)
[2016-07-23] MEDS: PANTOPRAZOLE 40 MG TABLET. PO SCH (08:16)
[2016-07-23] MEDS: METOCLOPRAMIDE 10 MG TABLET PO SCH ×3 (08:16→16:46)
[2016-07-23] MEDS: CARVEDILOL 12.5 MG TABLET PO SCH ×2 (08:18→16:46)
[2016-07-23] MEDS: ASPIRIN ENTERIC COATED 81 MG TABLET.DR. PO SCH (08:18)
[2016-07-23] MEDS: HYDRALAZINE 50 MG TABLET PO SCH ×3 (08:19→20:35)
[2016-07-23] MEDS: CALCIUM ACETATE 667 MG CAPSULE PO SCH ×3 (08:19→16:46)
[2016-07-23] MEDS: CLOPIDOGREL BISULFATE 75 MG TABLET PO SCH (08:19)
[2016-07-23] MEDS: FOLIC/VIT B COMP W-C (RENAL) TABLET. PO SCH (08:20)
[2016-07-23] MEDS: SERTRALINE 50 MG TABLET. PO SCH (08:21)
[2016-07-23] MEDS: AMLODIPINE BESYLATE 10 MG TABLET PO SCH (08:21)
[2016-07-23] MEDS: OXYCODONE/APAP 5/325 TABLET. PO PRN ×2 (08:22→23:11)
[2016-07-23] MEDS: LOSARTAN POTASSIUM 50 MG TABLET. PO SCH (08:22)
[2016-07-23] MEDS: DOCUSATE SODIUM 100 MG CAPSULE PO SCH ×2 (08:23→20:32)
[2016-07-23] MEDS ORDERED: ASPIRIN ENTERIC COATED 81 MG TABLET.DR. PO SCH (09:00)
--- NOTE | 2016-07-23 11:11 | PDOC ---
Renal-Progress Notes Subjective Notes Notes LESS CONFUSED History of Present Illness Hx of present illness BETTER Vitals Vitals Vital Signs Date Time Temp Pulse Resp B/P Pulse Ox O2 Delivery O2 Flow Rate FiO2 07/23/16 08:22 133/52 07/23/16 08:19 72 07/23/16 04:00 98.1 14 98 Room Air 98.1 Weight Weight [ ] I.O. Intake and Output Intake and Output 07/23/16 07:00 Intake Total 1449 ml Output Total 100 ml Balance 1349 ml Intake Oral 1130 ml IV Total 319 ml Output Urine Total 0 ml Gastric Drainage Total 100 ml Labs Labs Laboratory Tests Test 07/22/16 17:23 07/22/16 22:13 07/23/16 05:50 07/23/16 08:45 Glucose (Fingerstick) 111mg/dL (70-99) 135mg/dL (70-99) 105mg/dL (70-99) White Blood Count 13.6x10^3/uL (4.0-11.0) Red Blood Count 2.64x10^6/uL (3.50-5.40) Hemoglobin 7.8g/dL (12.0-15.5) Hematocrit 23.9% (36.0-47.0) Mean Corpuscular Volume 91fL (79-100) Mean Corpuscular Hemoglobin 30pg (25-35) Mean Corpuscular Hemoglobin Concent 33g/dL (31-37) Red Cell Distribution Width 15.2% (11.5-14.5) Platelet Count 166x10^3/uL (140-400) Neutrophils (%) (Auto) 89% (31-73) Lymphocytes (%) (Auto) 5% (24-48) Monocytes (%) (Auto) 6% (0-9) Eosinophils (%) (Auto) 0% (0-3) Basophils (%) (Auto) 0% (0-3) Neutrophils # (Auto) 12.1x10^3uL (1.8-7.7) Lymphocytes # (Auto) 0.7x10^3/uL (1.0-4.8) Monocytes # (Auto) 0.8x10^3/uL (0.0-1.1) Eosinophils # (Auto) 0.0x10^3/uL (0.0-0.7) Basophils # (Auto) 0.0x10^3/uL (0.0-0.2) Sodium Level 139mmol/L (136-145) Potassium Level 4.0mmol/L (3.5-5.1) Chloride Level 100mmol/L (98-107) Carbon Dioxide Level 32mmol/L (21-32) Anion Gap 7 (6-14) Blood Urea Nitrogen 26mg/dL (7-20) Creatinine 4.7mg/dL (0.6-1.0) Estimated GFR (Cockcroft-Gault) 11.7 Glucose Level 107mg/dL (70-99) Calcium Level 8.5mg/dL (8.5-10.1) Phosphorus Level 3.5mg/dL (2.6-4.7) Magnesium Level 1.9mg/dL (1.8-2.4) Albumin 2.8g/dL (3.4-5.0) Review of Systems Constitutional: yes: no symptom reported Physical Exam General Appearance: no apparent distress Skin: warm Respiratory: decreased breath sounds Heart: S1S2, RRR Abdomen: soft, bowel sounds present Genitourinary: bladder flat Extremities: pulses present, atrophy Neurology: alert Musculoskeletal: Osteoarthritis Assessment Assessment IMP ESRD ANEMIA HTN-IMPROVED S/P CELIAC ARTERY BYPASS PLAN HD TOMORROW ENC PO WHEN TOLERATED WILL FOLLOW TING REYNA MD Jul 23, 2016 11:10
--- NOTE | 2016-07-23 11:41 | PDOC ---
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 Oriented and no longer confused and anxious. Remains in ICU due to full bed status on floors. CV: RRR. BP controlled now with restarting home antihypertensive meds. Pulm: Faint left lung crackles. Unlabored. On RA. Abd: Soft. Hypoactive bowel sounds. +flatus. Started regular diet this a.m. and has tolerated well. Incision: Midline abd intact with surgical dressing. Assessment/Plan: 1. 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 Abd pain resolved, other than incisional pain. Continue antiplatelet therapy ASA/Plavix upon discharge. 2. Tolerating diet progression. 3. HTN - controlled now on home antihypertensive meds. 4. Transfer out of ICU to surgical tele bed when available. Needs to ambulate. 5. CKD - dialysis MWF 6. Anticipate possible d/c to home tomorrow if remains stable. Vital Signs Date Time Temp Pulse Resp B/P Pulse Ox O2 Delivery O2 Flow Rate FiO2 2 08:22 133/52 217 08:19 72 07/23/16 04:00 98.1 14 98 Room Air 98.1 07/21/16 17:12 10.0 Intake and Output 07/23/16 07:00 Intake Total 1449 ml Output Total 100 ml Balance 1349 ml Intake Oral 1130 ml IV Total 319 ml Output Urine Total 0 ml Gastric Drainage Total 100 ml Assessment Assessment Problems Medical Problems: (1) Abdominal pain Status: Acute Comment Review of Relevant I have reviewed the following items richard (where applicable) has been applied. Labs Laboratory Tests Test 07/21/16 12:20 07/21/16 16:47 07/21/16 19:00 07/21/16 20:36 White Blood Count 5.5x10^3/uL (4.0-11.0) Red Blood Count 3.28x10^6/uL (3.50-5.40) Hemoglobin 9.6g/dL (12.0-15.5) Hematocrit 30.0% (36.0-47.0) Mean Corpuscular Volume 92fL (79-100) Mean Corpuscular Hemoglobin 29pg (25-35) Mean Corpuscular Hemoglobin Concent 32g/dL (31-37) Red Cell Distribution Width 14.9% (11.5-14.5) Platelet Count 224x10^3/uL (140-400) Neutrophils (%) (Auto) 84% (31-73) Lymphocytes (%) (Auto) 10% (24-48) Monocytes (%) (Auto) 4% (0-9) Eosinophils (%) (Auto) 2% (0-3) Basophils (%) (Auto) 1% (0-3) Neutrophils # (Auto) 4.6x10^3uL (1.8-7.7) Lymphocytes # (Auto) 0.6x10^3/uL (1.0-4.8) Monocytes # (Auto) 0.2x10^3/uL (0.0-1.1) Eosinophils # (Auto) 0.1x10^3/uL (0.0-0.7) Basophils # (Auto) 0.0x10^3/uL (0.0-0.2) Prothrombin Time 13.5SEC (11.7-14.0) Prothromb Time International Ratio 1.1 (0.8-1.1) Activated Partial Thromboplast Time 28SEC (24-38) Sodium Level 139mmol/L (136-145) Potassium Level 5.7mmol/L (3.5-5.1) Chloride Level 104mmol/L (98-107) Carbon Dioxide Level 27mmol/L (21-32) Anion Gap 8 (6-14) Blood Urea Nitrogen 43mg/dL (7-20) Creatinine 7.1mg/dL (0.6-1.0) Estimated GFR (Cockcroft-Gault) 7.3 Glucose Level 122mg/dL (70-99) Calcium Level 10.4mg/dL (8.5-10.1) Glucose (Fingerstick) 156mg/dL (70-99) 150mg/dL (70-99) Nasal Screen MRSA (PCR) Positive (Negative) Test 07/22/16 08:10 07/22/16 10:39 07/22/16 17:23 07/22/16 22:13 White Blood Count 16.5x10^3/uL (4.0-11.0) Red Blood Count 2.78x10^6/uL (3.50-5.40) Hemoglobin 8.1g/dL (12.0-15.5) Hematocrit 25.0% (36.0-47.0) Mean Corpuscular Volume 90fL (79-100) Mean Corpuscular Hemoglobin 29pg (25-35) Mean Corpuscular Hemoglobin Concent 32g/dL (31-37) Red Cell Distribution Width 15.5% (11.5-14.5) Platelet Count 198x10^3/uL (140-400) Neutrophils (%) (Auto) 94% (31-73) Lymphocytes (%) (Auto) 3% (24-48) Monocytes (%) (Auto) 3% (0-9) Eosinophils (%) (Auto) 0% (0-3) Basophils (%) (Auto) 0% (0-3) Neutrophils # (Auto) 15.5x10^3uL (1.8-7.7) Lymphocytes # (Auto) 0.5x10^3/uL (1.0-4.8) Monocytes # (Auto) 0.5x10^3/uL (0.0-1.1) Eosinophils # (Auto) 0.0x10^3/uL (0.0-0.7) Basophils # (Auto) 0.0x10^3/uL (0.0-0.2) Segmented Neutrophils % 84% (35-66) Band Neutrophils % 12% (0-9) Lymphocytes % 2% (24-48) Monocytes % 2% (0-10) Platelet Estimate Adequate (ADEQUATE) Poikilocytosis Present Anisocytosis Slight Tear Drop Cells Occ Ovalocytes Few Helmet Cells Occ [place] Cells Few Schistocytes Occ Sodium Level 137mmol/L (136-145) Potassium Level 6.2mmol/L (3.5-5.1) Chloride Level 102mmol/L (98-107) Carbon Dioxide Level 20mmol/L (21-32) Anion Gap 15 (6-14) Blood Urea Nitrogen 55mg/dL (7-20) Creatinine 7.7mg/dL (0.6-1.0) Estimated GFR (Cockcroft-Gault) 6.6 Glucose Level 199mg/dL (70-99) Calcium Level 9.2mg/dL (8.5-10.1) Magnesium Level 2.2mg/dL (1.8-2.4) Glucose (Fingerstick) 114mg/dL (70-99) 111mg/dL (70-99) 135mg/dL (70-99) Test 07/23/16 05:50 07/23/16 08:45 White Blood Count 13.6x10^3/uL (4.0-11.0) Red Blood Count 2.64x10^6/uL (3.50-5.40) Hemoglobin 7.8g/dL (12.0-15.5) Hematocrit 23.9% (36.0-47.0) Mean Corpuscular Volume 91fL (79-100) Mean Corpuscular Hemoglobin 30pg (25-35) Mean Corpuscular Hemoglobin Concent 33g/dL (31-37) Red Cell Distribution Width 15.2% (11.5-14.5) Platelet Count 166x10^3/uL (140-400) Neutrophils (%) (Auto) 89% (31-73) Lymphocytes (%) (Auto) 5% (24-48) Monocytes (%) (Auto) 6% (0-9) Eosinophils (%) (Auto) 0% (0-3) Basophils (%) (Auto) 0% (0-3) Neutrophils # (Auto) 12.1x10^3uL (1.8-7.7) Lymphocytes # (Auto) 0.7x10^3/uL (1.0-4.8) Monocytes # (Auto) 0.8x10^3/uL (0.0-1.1) Eosinophils # (Auto) 0.0x10^3/uL (0.0-0.7) Basophils # (Auto) 0.0x10^3/uL (0.0-0.2) Sodium Level 139mmol/L (136-145) Potassium Level 4.0mmol/L (3.5-5.1) Chloride Level 100mmol/L (98-107) Carbon Dioxide Level 32mmol/L (21-32) Anion Gap 7 (6-14) Blood Urea Nitrogen 26mg/dL (7-20) Creatinine 4.7mg/dL (0.6-1.0) Estimated GFR (Cockcroft-Gault) 11.7 Glucose Level 107mg/dL (70-99) Calcium Level 8.5mg/dL (8.5-10.1) Phosphorus Level 3.5mg/dL (2.6-4.7) Magnesium Level 1.9mg/dL (1.8-2.4) Albumin 2.8g/dL (3.4-5.0) Glucose (Fingerstick) 105mg/dL (70-99) Laboratory Tests Test 07/22/16 17:23 07/22/16 22:13 07/23/16 05:50 07/23/16 08:45 Glucose (Fingerstick) 111mg/dL (70-99) 135mg/dL (70-99) 105mg/dL (70-99) White Blood Count 13.6x10^3/uL (4.0-11.0) Red Blood Count 2.64x10^6/uL (3.50-5.40) Hemoglobin 7.8g/dL (12.0-15.5) Hematocrit 23.9% (36.0-47.0) Mean Corpuscular Volume 91fL (79-100) Mean Corpuscular Hemoglobin 30pg (25-35) Mean Corpuscular Hemoglobin Concent 33g/dL (31-37) Red Cell Distribution Width 15.2% (11.5-14.5) Platelet Count 166x10^3/uL (140-400) Neutrophils (%) (Auto) 89% (31-73) Lymphocytes (%) (Auto) 5% (24-48) Monocytes (%) (Auto) 6% (0-9) Eosinophils (%) (Auto) 0% (0-3) Basophils (%) (Auto) 0% (0-3) Neutrophils # (Auto) 12.1x10^3uL (1.8-7.7) Lymphocytes # (Auto) 0.7x10^3/uL (1.0-4.8) Monocytes # (Auto) 0.8x10^3/uL (0.0-1.1) Eosinophils # (Auto) 0.0x10^3/uL (0.0-0.7) Basophils # (Auto) 0.0x10^3/uL (0.0-0.2) Sodium Level 139mmol/L (136-145) Potassium Level 4.0mmol/L (3.5-5.1) Chloride Level 100mmol/L (98-107) Carbon Dioxide Level 32mmol/L (21-32) Anion Gap 7 (6-14) Blood Urea Nitrogen 26mg/dL (7-20) Creatinine 4.7mg/dL (0.6-1.0) Estimated GFR (Cockcroft-Gault) 11.7 Glucose Level 107mg/dL (70-99) Calcium Level 8.5mg/dL (8.5-10.1) Phosphorus Level 3.5mg/dL (2.6-4.7) Magnesium Level 1.9mg/dL (1.8-2.4) Albumin 2.8g/dL (3.4-5.0) Medications Current Medications Heparin Sodium (Porcine) 5000 unit/Sodium Chloride 505 ml @ 505 mls/hr 1X PERIOP ONCE IRR Last administered on 07/21/16 14:06; Start 07/21/16 at 06:00 ; Stop 07/21/16 at 06:59; Status DC Cefazolin Sodium/ Sodium Chloride (Ancef/Iv Sodium Chloride 0.9% 500ml Bag) 500 ml @ 500 mls/hr 1X PERIOP ONCE IRR Last administered on 07/21/16 14:06; Start 07/21/16 at 06:00; Stop 07/21/16 at 06:59; Status DC Ondansetron HCl (Zofran) 4 mg PRN Q6HRS PRN IV Nausea; Start 07/21/16 at 07:00 ; Stop 07/21/16 at 18:00; Status DC Fentanyl Citrate (Fentanyl 2ml Vial) 25 mcg PRN Q5MIN PRN IV MILD PAIN Last administered on 07/21/16 17:19; Start 07/21/16 at 07:00; Stop 07/21/16 at 18:00 ; Status DC Fentanyl Citrate (Fentanyl 2ml Vial) 50 mcg PRN Q5MIN PRN IV MODERATE PAIN; Start 07/21/16 at 07:00; Stop 07/21/16 at 16:00; Status DC Morphine Sulfate 1 mg 1 mg PRN Q10MIN PRN IV SEVERE PAIN; Start 07/21/16 at 07: 00; Stop 07/21/16 at 07:00; Status DC Lactated Ringer's (Iv Lactated Ringers) 1,000 ml @ 30 mls/hr Q24H IV ; Start at 07:00; Stop 07/21/16 at 19:00; Status DC Lidocaine HCl 2 ml 1X PRN PRN ID IV START; Start 07/21/16 at 07:00; Stop at 18:00; Status DC Prochlorperazine Edisylate 5 mg 5 mg PACU PRN PRN IV NAUSEA Last administered on 07/21/16 17:26; Start 07/21/16 at 07:00; Stop 07/21/16 at 18:00; Status DC Cefazolin Sodium/ Dextrose 50 ml @ 100 mls/hr 1X ONCE IV Last administered on 07/21/16 14:00; Start 07/21/16 at 08:00; Stop 07/21/16 at 08:29; Status DC Sodium Chloride (Iv Sodium Chloride 0.9% 1000ml Bag) 1,000 ml @ 0 mls/hr 1X ONCE IV ; Start 07/21/16 at 12:15; Stop 07/21/16 at 12:16; Status DC Heparin Sodium (Porcine) 52738 unit 10,000 unit STK-MED ONCE .ROUTE ; Start at 12:48; Stop 07/21/16 at 12:49; Status DC Propofol (Diprivan) 20 ml @ As Directed STK-MED ONCE IV ; Start 07/21/16 at 12: 51; Stop 07/21/16 at 12:52; Status DC Lidocaine HCl 100 mg STK-MED ONCE .ROUTE ; Start 07/21/16 at 12:51; Stop at 12:52; Status DC Fentanyl Citrate (Fentanyl 2ml Vial) 100 mcg STK-MED ONCE .ROUTE ; Start at 12:51; Stop 07/21/16 at 12:52; Status DC Rocuronium [place] (Zemuron) 50 mg STK-MED ONCE .ROUTE ; Start 07/21/16 at 12:51 ; Stop 07/21/16 at 12:52; Status DC Cellulose 1 each STK-MED ONCE .ROUTE Last administered on 07/21/16 15:44; Start 07/21/16 at 12:54; Stop 07/21/16 at 12:55; Status DC Cellulose 1 each STK-MED ONCE .ROUTE ; Start 07/21/16 at 12:54; Stop 07/21/16 at 12:55; Status DC Phenylephrine HCl 10 mg 10 mg STK-MED ONCE .ROUTE ; Start 07/21/16 at 12:54; Stop 07/21/16 at 12:55; Status DC Cefazolin Sodium/ Dextrose (Ancef 2gm Premix) 50 ml @ 100 mls/hr Q6H IV Last administered on 07/22/16 08:17; Start 07/21/16 at 20:00; Stop 07/22/16 at 08:29 ; Status DC Aspirin (Ecotrin) 81 mg DAILYWBKFT PO Last administered on 07/23/16 08:18; Start 07/22/16 at 08:00 Clopidogrel Bisulfate (Plavix) 75 mg DAILYWBKFT PO Last administered on 08:19; Start 07/22/16 at 08:00 Al Hydroxide/Mg Hydroxide (Mylanta Plus Xs) 30 ml PRN Q3HRS PRN PO HEARTBURN / GAS; Start 07/21/16 at 13:15 Calcium Carbonate/ Glycine (Tums) 500 mg PRN Q3HRS PRN PO INDIGESTION; Start at 13:15 Diphenhydramine HCl (Benadryl) 25 mg PRN Q6HRS PRN PO ITCHING; Start 07/21/16 at 13:15 Diphenhydramine HCl (Benadryl) 25 mg PRN Q6HRS PRN IV ITCHING; Start 07/21/16 at 13:15 Naloxone HCl (Narcan) 0.1 mg PRN Q2MIN PRN IV ADMIN; Start 07/21/16 at 13:15 Sodium Chloride (Normal Saline Flush) 3 ml QSHIFT PRN IV AFTER MEDS AND BLOOD DRAWS; Start 07/21/16 at 13:15 Oxycodone/ Acetaminophen (Percocet 5/325) 1 tab PRN Q4HRS PRN PO MILD PAIN, 1ST CHOICE Last administered on 07/23/16 08:22; Start 07/21/16 at 13:15 Docusate Sodium (Colace) 100 mg BID PO Last administered on 07/23/16 08:23; Start 07/21/16 at 21:00 Ondansetron HCl (Zofran) 4 mg PRN Q6HRS PRN IV NAUESA, 1ST CHOICE; Start at 13:15 Prochlorperazine Edisylate (Compazine) 5 mg PRN Q6HRS PRN IV N/V, 2nd Choice, MR X1 Last administered on 07/22/16 13:34; Start 07/21/16 at 13:15 Fentanyl Citrate (Fentanyl 2ml Vial) 100 mcg STK-MED ONCE .ROUTE ; Start at 14:09; Stop 07/21/16 at 14:10; Status DC Heparin Sodium (Porcine) 30,000 unit STK-MED ONCE .ROUTE ; Start 07/21/16 at 14: 14; Stop 07/21/16 at 14:15; Status DC Rocuronium [place] (Zemuron) 50 mg STK-MED ONCE .ROUTE ; Start 07/21/16 at 14:36 ; Stop 07/21/16 at 14:37; Status DC Protamine Sulfate 250 mg STK-MED ONCE IV ; Start 07/21/16 at 15:59; Stop at 16:00; Status DC Glycopyrrolate (Robinul) 1 mg STK-MED ONCE .ROUTE ; Start 07/21/16 at 16:04; Stop 07/21/16 at 16:05; Status DC Neostigmine Methylsulfate 5 mg STK-MED ONCE .ROUTE ; Start 07/21/16 at 16:04; Stop 07/21/16 at 16:05; Status DC Fentanyl Citrate (Fentanyl 2ml Vial) 50 mcg PRN Q5MIN PRN IV Acute Pain Last administered on 07/21/16 18:47; Start 07/21/16 at 17:30; Stop 07/22/16 at 08:43 ; Status DC Hydralazine HCl (Apresoline) 10 mg PRN Q15MIN PRN IVP SBP Greater Than 180 Last administered on 07/21/16 18:46; Start 07/21/16 at 17:30; Stop 07/22/16 at 08:43; Status DC Hydralazine HCl (Apresoline) 20 mg STK-MED ONCE .ROUTE ; Start 07/21/16 at 17:24 ; Stop 07/21/16 at 17:29; Status DC Fentanyl Citrate (Fentanyl 2ml Vial) 25 mcg PRN Q2HR PRN IV MILD-MOD PAIN; Start 07/21/16 at 18:45 Fentanyl Citrate (Fentanyl 2ml Vial) 50 mcg PRN Q2HR PRN IV PAIN SEV Last administered on 07/22/16 08:06; Start 07/21/16 at 18:45 Hydralazine HCl (Apresoline) 10 mg PRN Q2HR PRN IVP ELEVATED BP, SEE COMMENTS; Start 07/21/16 at 18:45; Stop 07/22/16 at 15:59; Status DC Hydralazine HCl (Apresoline) 20 mg PRN Q2HR PRN IVP ELEVATED BP, SEE COMMENTS Last administered on 07/22/16 02:17; Start 07/21/16 at 18:45; Stop 07/22/16 at 08:43; Status DC Metoprolol Tartrate 10 mg 10 mg PRN Q6HRS PRN IVP ELEVATED BP, SEE COMMENTS; Start 07/21/16 at 18:45; Stop 07/22/16 at 12:00; Status DC Nicardipine HCl 50 mg/Sodium Chloride 270 ml @ 0 mls/hr CONT PRN IV SEE I/O RECORD Last administered on 07/22/16 08:09; Start 07/21/16 at 19:30 Magnesium Sulfate/ Dextrose (Magnesium Sulfate PREMIX 2GM) 50 ml @ 25 mls/hr PRN DAILY PRN IV for Mag < 1.7 on am labs; Start 07/22/16 at 07:00 Metoprolol Tartrate (Lopressor) 5 mg Q6HRS IVP Last administered on 07/22/16 12:50; Start 07/22/16 at 09:00; Stop 07/22/16 at 15:59; Status DC Hydralazine HCl (Apresoline) 50 mg Q8HRS IVP Last administered on 07/22/16 11: 33; Start 07/22/16 at 09:00; Stop 07/22/16 at 15:59; Status DC Clonidine HCl 1 patch 1 patch WEEKLY TD ; Start 07/22/16 at 09:00; Stop at 15:59; Status DC Sodium Chloride 1,000 ml @ 1,000 mls/hr Q1H PRN IV hypotension; Start 07/22/16 at 09:50; Stop 07/22/16 at 10:13; Status DC Sodium Chloride (Iv Sodium Chloride 0.9% 1000ml Bag) 1,000 ml @ 400 mls/hr Q2H30M PRN IV PATENCY; Start 07/22/16 at 09:50; Stop 07/22/16 at 10:13; Status DC Info (PHARMACY MONITORING -- do not chart) 1 each PRN DAILY PRN MC SEE COMMENTS ; Start 07/22/16 at 10:00 Info (PHARMACY MONITORING -- do not chart) 1 each PRN DAILY PRN MC SEE COMMENTS ; Start 07/22/16 at 10:00; Status UNV Metoclopramide HCl (Reglan) 5 mg TIDAC PRN IV NAUSEA/VOMITING; Start 07/22/16 at 10:45; Stop 07/22/16 at 10:49; Status DC Metoclopramide HCl (Reglan) 5 mg TIDAC IV ; Start 07/22/16 at 11:30; Stop at 13:01; Status DC Darbepoetin Ty (Aranesp) 60 mcg WEEKLYHS SQ Last administered on 07/22/16 21 :51; Start 07/22/16 at 21:00 Sertraline HCl (Zoloft) 100 mg DAILY PO Last administered on 07/23/16 08:21; Start 07/22/16 at 12:00 Metoclopramide HCl (Reglan) 2.5 mg TIDAC IV ; Start 07/22/16 at 13:30; Stop at 15:59; Status DC Amlodipine Besylate (Norvasc) 10 mg DAILY PO Last administered on 07/23/16 08: 21; Start 07/22/16 at 16:30 Aspirin (Ecotrin) 81 mg DAILY PO ; Start 07/23/16 at 09:00; Status UNV Atorvastatin Calcium (Lipitor) 40 mg HS PO Last administered on 07/22/16 21:51 ; Start 07/22/16 at 21:00 Calcium Acetate (Phoslo) 1,334 mg TIDWMEALS PO Last administered on 07/23/16 08:19; Start 07/22/16 at 17:00 Clonidine HCl (Catapres) 0.2 mg Q8HRS PO Last administered on 07/23/16 08:16; Start 07/22/16 at 16:30 Metoclopramide HCl (Reglan) 5 mg TIDAC PO Last administered on 07/23/16 08:16 ; Start 07/22/16 at 16:30 Pantoprazole Sodium (Protonix) 40 mg DAILYAC PO Last administered on 07/23/16 08:16; Start 07/23/16 at 07:30 Carvedilol (Coreg) 25 mg BIDWMEALS PO Last administered on 07/23/16 08:18; Start 07/22/16 at 17:00 Hydralazine HCl (Apresoline) 100 mg TID PO Last administered on 07/23/16 08:19 ; Start 07/22/16 at 21:00 Losartan Potassium (Cozaar) 100 mg DAILY PO Last administered on 07/23/16 08: 22; Start 07/22/16 at 16:30 Active Scripts Active Ondansetron Odt (Ondansetron) 4 Mg Tab.rapdis 4 Mg PO PRN Q8HRS PRN Hydralazine Hcl 100 Mg Tablet 1 Tab PO TID Nephro-Donny Tablet (Folic Acid/Vitamin B Comp W-C) 0.8 Mg Tablet 1 Tab PO DAILY Benadryl (Diphenhydramine Hcl) 25 Mg Capsule 25 Mg PO PRN Q6HRS PRN Clonidine Hcl 0.2 Mg Tablet 0.2 Mg PO Q8HRS Amlodipine Besylate 10 Mg Tablet 10 Mg PO DAILY Oxycodone Hcl 5 Mg Tablet 1-2 Tab PO PRN Q6HRS PRN Reported Novolog (Insulin Aspart) 100 Unit/1 Ml Cartridge 100 Unit SQ TIDAC per sliding scale Zoloft (Sertraline Hcl) 100 Mg Tablet 1 Tab PO DAILY Pantoprazole Sodium 40 Mg Tablet.dr 1 Tab PO DAILY Reglan (Metoclopramide Hcl) 10 Mg Tablet 5 Mg PO TIDAC Phoslo (Calcium Acetate) 667 Mg Capsule 1,334 Mg PO TIDWMEALS Losartan Potassium 100 Mg Tablet 100 Mg PO DAILY Levemir (Insulin Detemir) 100 Unit/1 Ml Vial 8 Unit SQ HS Coreg (Carvedilol) 25 Mg Tablet 25 Mg PO BIDWMEALS Atorvastatin Calcium 40 Mg Tablet 40 Mg PO HS Aspir 81 (Aspirin) 81 Mg Tablet.dr 81 Mg PO DAILY Vitals/I & O Vital Sign - Last 24 Hours 07/22/16 07/22/16 07/22/16 07/22/16 11:33 12:00 12:00 12:50 Temp 98.2 98.2 Pulse 80 Resp 21 B/P 171/76 162/60 185/59 Pulse Ox 100 O2 Delivery Room Air Room Air 07/22/16 07/22/16 07/22/16 07/22/16 14:00 16:00 16:00 16:30 Temp 98.4 98.4 Pulse 70 80 Resp 19 22 B/P 144/73 121/75 159/86 Pulse Ox 100 100 O2 Delivery Room Air Room Air Room Air 07/22/16 07/22/16 07/22/16 07/22/16 16:58 17:00 17:00 17:00 Pulse 76 Resp 20 B/P 156/74 156/54 156/54 159/86 Pulse Ox 100 O2 Delivery Room Air 07/22/16 07/22/16 07/22/16 07/22/16 20:00 20:00 21:51 22:11 Temp 97.9 97.9 Pulse 68 68 82 Resp 12 B/P 121/43 121/43 136/57 Pulse Ox 100 O2 Delivery Room Air Room Air 07/22/16 07/22/16 07/23/16 07/23/16 22:12 23:12 00:00 04:00 Temp 98.2 98.1 98.2 98.1 Pulse 70 76 Resp 20 12 12 14 B/P 138/60 Pulse Ox 95 100 100 98 O2 Delivery Room Air Room Air Room Air Room Air 07/23/16 07/23/16 07/23/16 07/23/16 08:16 08:18 08:19 08:21 Pulse 69 65 72 B/P 133/52 133/52 133/52 133/52 07/23/16 08:22 B/P 133/52 Intake and Output 07/22/16 07/22/16 07/23/16 15:00 23:00 07:00 Intake Total 319 ml 770 ml 360 ml Output Total 100 ml 0 ml Balance 319 ml 670 ml 360 ml HERI CHAVEZ APRN Jul 23, 2016 11:41
[2016-07-23 12:00] VITALS: BP 124/59
[2016-07-23 16:15] VITALS: BP 137/99
[2016-07-23 19:00] VITALS: BP 132/70
[2016-07-23] MEDS: ATORVASTATIN CALCIUM 40 MG TABLET. PO SCH (20:32)
[2016-07-23 23:00] VITALS: BP 144/58
[2016-07-24 03:00] VITALS: BP 145/47
[2016-07-24] MEDS: CLONIDINE HCL 0.2 MG TABLET PO SCH ×2 (06:26→14:00)
[2016-07-24 07:00] VITALS: BP 144/56
--- NOTE | 2016-07-24 08:07 | PDOC3 ---
RUT EDWARDS [employer] 07/24/16 0807: IM DISCHARGE & PROGRESS NOTES Date of Admission Date of Admission Date of Admission: Jul 21, 2016 at 11:41 Date of Discharge Date of Discharge 07/24/16 Primary Diagnosis Primary Diagnosis Plan 1. Abdominal pain RUQ secondary to occluded celiac artery s/p celiac decompression and aorto to celiac bypass with 7 mm [place] Brad graft on 07/21/15 2. malignant HTN 3. DM II insulin 4. ESRD secondary to hypertensive kidney disease 5. asthma 6. CAD 7. hyperlipidemia 8. GERD 9. hyperlipidemia 10. 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 severe chronic PCL malnutrition 12. pulmonary HTN 13. tr AR, MR 14. CHF diastolic normal EF not acute 15. acute metabolic encephalopathy not POA 16. urinary retention Consults Consults Margarito Chavez MD Procedures Procedures DATE OF SURGERY: 07/21/2016 PREOPERATIVE DIAGNOSIS: Celiac compression syndrome with abdominal pain. POSTOPERATIVE DIAGNOSIS: Celiac compression syndrome with abdominal pain. PROCEDURE PERFORMED: Exploration of celiac artery, division of all the tara fibers and the scar tissue and tight fibers and muscle fibers around the celiac trunk, and a ____ celiac artery bypass using a 7 mm [place]. SURGEON: Dr. Margarito Chavez. PREPAROLE COUNSELING AIDE: Dr. Mauro and Marce Kelley. ANESTHETIC: General. INDICATIONS: This is a 56-year-old female with chronic pain, gallbladder removal did no good. She had an arteriogram last week that showed essentially an occlusion of the celiac trunk. DESCRIPTION OF PROCEDURE: After general endotracheal anesthetic, prepping and draping, a midline abdominal incision was made to the umbilicus. Subcutaneous tissue divided with cautery, bleeding controlled with cautery, and the fascia was divided, retractors were placed. The space below the left lobe of the liver medial to the esophagus was opened up, and we were able to dissect down to the aorta dividing some of the tara muscles and the adventitia over the aorta. Once the aorta was clearly identified, it was nice and soft, we dissected more distally dividing all the tara muscles and eventually got to the celiac trunk which was very small. The 3 branches of the splenic artery, the mid left gastric, and the common hepatic were all dissected out and encircled with vessel loops. The celiac trunk was circumferentially dissected out. The patient was then given 7000 units of heparin IV. Because the celiac artery was occluded and terribly small, it was ligated at the aortic area with a silk tie. Vessel loops were tightened on these 3 branches and then the celiac artery was divided. It was then spatulated upon to the main confluence of those 3 vessels with Dykes scissors and an 11-blade knife. The stump of the celiac was oversewn with a 5-0 Prolene. Side biting clamps were then placed across the aorta, arteriotomy made. A 7 mm [place] graft was then anastomosed to the side of the aorta using an HS 6 Prolene stitch. The clamps were then released. There was good pulsatile flow through the graft. The graft was irrigated with heparin, clamped, the graft was then trimmed appropriately and anastomosed to the upper part of that celiac trunk onto the main body there of those 3 vessels using an HS 7 Prolene stitch. Just prior to complete closure, forward bleeding was checked, backbleeding was checked from each of the vessels, and the closure was completed. Clamps were released, and there was good pulsatile flow in all 3 of those vessels, checked with a Doppler, and it was triphasic. The patient was then given 30 mg of protamine, some Fibrillar and Surgicel packed around the suture line, and after irrigations, peritoneum was sewn over the graft with a running 2-0 Vicryl. All retractors, sponge, and instruments were removed. The omentum was then placed back over the small bowel. The incision in the abdomen closed with running #1 PDS, hafsa for the skin. Sterile dressings were applied. She tolerated the procedure well and left the operating room in stable condition. ESTIMATED BLOOD LOSS: About 150 mL. MARGARITO CHAVEZ MD DR: KARIN/faraz JOB#: [id number] / [id number] Labs Labs Laboratory Tests Test 07/21/16 12:20 07/21/16 16:47 07/21/16 19:00 07/21/16 20:36 White Blood Count 5.5x10^3/uL (4.0-11.0) Red Blood Count 3.28x10^6/uL (3.50-5.40) Hemoglobin 9.6g/dL (12.0-15.5) Hematocrit 30.0% (36.0-47.0) Mean Corpuscular Volume 92fL (79-100) Mean Corpuscular Hemoglobin 29pg (25-35) Mean Corpuscular Hemoglobin Concent 32g/dL (31-37) Red Cell Distribution Width 14.9% (11.5-14.5) Platelet Count 224x10^3/uL (140-400) Neutrophils (%) (Auto) 84% (31-73) Lymphocytes (%) (Auto) 10% (24-48) Monocytes (%) (Auto) 4% (0-9) Eosinophils (%) (Auto) 2% (0-3) Basophils (%) (Auto) 1% (0-3) Neutrophils # (Auto) 4.6x10^3uL (1.8-7.7) Lymphocytes # (Auto) 0.6x10^3/uL (1.0-4.8) Monocytes # (Auto) 0.2x10^3/uL (0.0-1.1) Eosinophils # (Auto) 0.1x10^3/uL (0.0-0.7) Basophils # (Auto) 0.0x10^3/uL (0.0-0.2) Prothrombin Time 13.5SEC (11.7-14.0) Prothromb Time International Ratio 1.1 (0.8-1.1) Activated Partial Thromboplast Time 28SEC (24-38) Sodium Level 139mmol/L (136-145) Potassium Level 5.7mmol/L (3.5-5.1) Chloride Level 104mmol/L (98-107) Carbon Dioxide Level 27mmol/L (21-32) Anion Gap 8 (6-14) Blood Urea Nitrogen 43mg/dL (7-20) Creatinine 7.1mg/dL (0.6-1.0) Estimated GFR (Cockcroft-Gault) 7.3 Glucose Level 122mg/dL (70-99) Calcium Level 10.4mg/dL (8.5-10.1) Glucose (Fingerstick) 156mg/dL (70-99) 150mg/dL (70-99) Nasal Screen MRSA (PCR) Positive (Negative) Test 07/22/16 08:10 07/22/16 10:39 07/22/16 17:23 07/22/16 22:13 White Blood Count 16.5x10^3/uL (4.0-11.0) Red Blood Count 2.78x10^6/uL (3.50-5.40) Hemoglobin 8.1g/dL (12.0-15.5) Hematocrit 25.0% (36.0-47.0) Mean Corpuscular Volume 90fL (79-100) Mean Corpuscular Hemoglobin 29pg (25-35) Mean Corpuscular Hemoglobin Concent 32g/dL (31-37) Red Cell Distribution Width 15.5% (11.5-14.5) Platelet Count 198x10^3/uL (140-400) Neutrophils (%) (Auto) 94% (31-73) Lymphocytes (%) (Auto) 3% (24-48) Monocytes (%) (Auto) 3% (0-9) Eosinophils (%) (Auto) 0% (0-3) Basophils (%) (Auto) 0% (0-3) Neutrophils # (Auto) 15.5x10^3uL (1.8-7.7) Lymphocytes # (Auto) 0.5x10^3/uL (1.0-4.8) Monocytes # (Auto) 0.5x10^3/uL (0.0-1.1) Eosinophils # (Auto) 0.0x10^3/uL (0.0-0.7) Basophils # (Auto) 0.0x10^3/uL (0.0-0.2) Segmented Neutrophils % 84% (35-66) Band Neutrophils % 12% (0-9) Lymphocytes % 2% (24-48) Monocytes % 2% (0-10) Platelet Estimate Adequate (ADEQUATE) Poikilocytosis Present Anisocytosis Slight Tear Drop Cells Occ Ovalocytes Few Helmet Cells Occ Frederick Cells Few Schistocytes Occ Sodium Level 137mmol/L (136-145) Potassium Level 6.2mmol/L (3.5-5.1) Chloride Level 102mmol/L (98-107) Carbon Dioxide Level 20mmol/L (21-32) Anion Gap 15 (6-14) Blood Urea Nitrogen 55mg/dL (7-20) Creatinine 7.7mg/dL (0.6-1.0) Estimated GFR (Cockcroft-Gault) 6.6 Glucose Level 199mg/dL (70-99) Calcium Level 9.2mg/dL (8.5-10.1) Magnesium Level 2.2mg/dL (1.8-2.4) Glucose (Fingerstick) 114mg/dL (70-99) 111mg/dL (70-99) 135mg/dL (70-99) Test 07/23/16 05:50 07/23/16 08:45 07/23/16 16:21 07/23/16 19:39 White Blood Count 13.6x10^3/uL (4.0-11.0) Red Blood Count 2.64x10^6/uL (3.50-5.40) Hemoglobin 7.8g/dL (12.0-15.5) Hematocrit 23.9% (36.0-47.0) Mean Corpuscular Volume 91fL (79-100) Mean Corpuscular Hemoglobin 30pg (25-35) Mean Corpuscular Hemoglobin Concent 33g/dL (31-37) Red Cell Distribution Width 15.2% (11.5-14.5) Platelet Count 166x10^3/uL (140-400) Neutrophils (%) (Auto) 89% (31-73) Lymphocytes (%) (Auto) 5% (24-48) Monocytes (%) (Auto) 6% (0-9) Eosinophils (%) (Auto) 0% (0-3) Basophils (%) (Auto) 0% (0-3) Neutrophils # (Auto) 12.1x10^3uL (1.8-7.7) Lymphocytes # (Auto) 0.7x10^3/uL (1.0-4.8) Monocytes # (Auto) 0.8x10^3/uL (0.0-1.1) Eosinophils # (Auto) 0.0x10^3/uL (0.0-0.7) Basophils # (Auto) 0.0x10^3/uL (0.0-0.2) Sodium Level 139mmol/L (136-145) Potassium Level 4.0mmol/L (3.5-5.1) Chloride Level 100mmol/L (98-107) Carbon Dioxide Level 32mmol/L (21-32) Anion Gap 7 (6-14) Blood Urea Nitrogen 26mg/dL (7-20) Creatinine 4.7mg/dL (0.6-1.0) Estimated GFR (Cockcroft-Gault) 11.7 Glucose Level 107mg/dL (70-99) Calcium Level 8.5mg/dL (8.5-10.1) Phosphorus Level 3.5mg/dL (2.6-4.7) Magnesium Level 1.9mg/dL (1.8-2.4) Albumin 2.8g/dL (3.4-5.0) Glucose (Fingerstick) 105mg/dL (70-99) 141mg/dL (70-99) 148mg/dL (70-99) Medications Medications Medications reviewed and reconciled for discharge. Brief hospital course Brief hospital course This 56 year old female who presented with RUQ abdominal pain secondary to occluded celiac artery was admitted. The following is a summary of her treatment: abdominal pain/occluded celiac artery s/p celiac decompression and aorto to celiac bypass with 7 mm [place] graft vascular surgery consulted POD 3 progressing post op RUQ resolved, now pain r/t surgery ESRD renal consulted dialysis TTS malignant HTN Currently on Cardene Home meds: norvasc 10mg daily clonidine 0.2mg tid coreg 25mg bid hydralazine 100mg tid cozaar 100mg daily Begin IV: hydralazine 50mg q8h and prn 10mg IV q2h lopressor 5mg IV q6h catapress 0.2mg topical-takes 3 days to onset IV medications stopped 07/21-oral meds restarted HTN controlled lisinopril allergy: pt cannot recall SE, no memory of facial or tongue swelling. May be able to start vasotec 2.5mg IV v4cu--gzion decision to Dr. Ng. DM II FSBS/SSI Levemir 10u hs BS 105-148 DVT/GI prophylaxis SCD/JEN PPI Anemia Admit 9.6 07/23 7.8 monitor leukocytosis Admite 5.5 07/23 13.6 (decreased from 07/22) low grade T 99.2F urge to void will bladder scan per daughter, UOP minimal prior to surgery Bladder scan last evening 393ml, str cath 350ml returned 07/24 lab pending For more details regarding the past history, family history, social history, surgical history and other details, please refer to History and Physical. The RUQ pain has resolved and surgical pain is controlled. Will anticipate discharge home today and f/u in the office on Wednesday. Please see DC orders and medications. Subjective feels urge to void but cannot urinate Objective alert, no distress Vitals Vital Signs Date Time Temp Pulse Resp B/P Pulse Ox O2 Delivery O2 Flow Rate FiO2 07/24/16 06:26 72 145/47 07/24/16 03:00 99.2 18 92 Room Air 99.2 Physical Exam General appearance - alert well appearing, and in no distress Mental Status - alert, oriented to person, place, and time, affect appropriate to mood Head - normal Chest - clear to auscultation, no wheezes, rales or rhonchi, symmetric air entry Heart - S1 and S2 normal Abdomen - soft, + tender, nondistended, BS +, midline abd dressing in situ Neurological - no acute focal neurological deficit noted Musculoskeletal - no muscular tenderness noted Extremities - no pedal edema Skin - warm and dry Medications Medications reviewed. Allergy Allergies Coded Allergies Type Severity Reaction Last Updated Verified amitriptyline Allergy Intermediate 07/21/16 Yes hydromorphone Allergy Intermediate 07/21/16 Yes lisinopril Allergy Intermediate 07/21/16 Yes metformin Allergy Intermediate 07/21/16 Yes I S O L A T I O N *CONTACT* Allergy Unknown 07/21/16 Yes Follow up Wednesday Disposition: Home Comments Discharge Management - 35 minutes. For other details please refer to discharge instructions GAURAV NG MD 07/24/16 0959: IM DISCHARGE & PROGRESS NOTES Brief hospital course Brief hospital course Doing better. Discharge after HD today. see in office on wed- in 5 days. The patient was seen and examined by me. Chart reviewed and plan of care formulated. Discussed with, reviewed and agree with FRACTIONATING STILL OPERATOR's notes, plan of care and orders with modifications as necessary. Discharge Management - 35 minutes. RUT EDWARDS APRN Jul 24, 2016 08:07 GAURAV NG MD Jul 24, 2016 09:59
[2016-07-24 08:47] LABS: BASO % 0 % (0-3); EOS % 0 % (0-3); HEMATOCRIT 25.4 % (36.0-47.0); HEMOGLOBIN 8.4 g/dL (12.0-15.5); LYMPH # 0.9 x10^3/uL (1.0-4.8); LYMPH % 10 % (24-48); MEAN CORPUSCULAR HEMOGLOBIN 30 pg (25-35); MEAN CORPUSCULAR HGB CONC 33 g/dL (31-37); MEAN CORPUSCULAR VOLUME 90 fL (79-100); MONO % 7 % (0-9); NEUT % 83 % (31-73); PLATELET COUNT 179 x10^3/uL (140-400); RED BLOOD COUNT 2.83 x10^6/uL (3.50-5.40); RED CELL DISTRIBUTION WIDTH 14.9 % (11.5-14.5); WHITE BLOOD COUNT 9.2 x10^3/uL (4.0-11.0)
[2016-07-24 09:05] LABS: CALCIUM 8.8 mg/dL (8.5-10.1); CREATININE 6.1 mg/dL (0.6-1.0); GFR 8.7; POTASSIUM 3.9 mmol/L (3.5-5.1)
[2016-07-24 09:09] LABS: ALBUMIN 2.9 g/dL (3.4-5.0); CALCIUM 9.1 mg/dL (8.5-10.1); CREATININE 6.2 mg/dL (0.6-1.0); GFR 8.5; PHOSPHORUS 2.9 mg/dL (2.6-4.7); POTASSIUM 3.8 mmol/L (3.5-5.1)
[2016-07-24] MEDS: CALCIUM ACETATE 667 MG CAPSULE PO SCH ×3 (09:29→17:00)
[2016-07-24] MEDS: HYDRALAZINE 50 MG TABLET PO SCH ×2 (09:29→14:00)
--- NOTE | 2016-07-24 09:29 | PDOC ---
PROGRESS NOTES Subjective Subjective "I want to go home. When will that be?" Objective Objective Vascular Surgery - POD#1 Aorto to celiac bypass O: Sitting up in chair. Ate full breakfast. CV: RRR. Stable vital signs Pulm: Posteriorly clear. Unlabored Abd: Hypoactive bowel sounds. Denies nausea. Abd soft' Incision: Surgical dressing removed. Incision intact with hafsa. No drainage. Assessment/Plan: 1. Abd pain with celiac artery compression - POD#3 celiac decompression with aorto to celiac bypass. Abd pain resolved now. 2. Continue antiplatelet therapy upon discharge. 3. Ok to discharge today from a vascular surgery perspective. 4. F/U with Dr. Maldonado in 2-3 weeks. Appt on chart to give to patient. 5. Instructed to shower daily and wash incision directly and pat dry. Call for any drainage noted once home. 6. No lifting >10 pounds until cleared by Dr. Maldonado Vital Signs Date Time Temp Pulse Resp B/P Pulse Ox O2 Delivery O2 Flow Rate FiO2 07/24/16 07:00 98.1 70 16 144/56 98 Room Air 98.1 07/21/16 17:12 10.0 Intake and Output 07/24/16 07:00 Intake Total 570 ml Balance 570 ml Intake Oral 570 ml # Voids 2 Assessment Assessment Problems Medical Problems: (1) Abdominal pain Status: Acute Comment Review of Relevant I have reviewed the following items richard (where applicable) has been applied. Labs Laboratory Tests Test 07/22/16 10:39 07/22/16 17:23 07/22/16 22:13 07/23/16 05:50 Glucose (Fingerstick) 114mg/dL (70-99) 111mg/dL (70-99) 135mg/dL (70-99) White Blood Count 13.6x10^3/uL (4.0-11.0) Red Blood Count 2.64x10^6/uL (3.50-5.40) Hemoglobin 7.8g/dL (12.0-15.5) Hematocrit 23.9% (36.0-47.0) Mean Corpuscular Volume 91fL (79-100) Mean Corpuscular Hemoglobin 30pg (25-35) Mean Corpuscular Hemoglobin Concent 33g/dL (31-37) Red Cell Distribution Width 15.2% (11.5-14.5) Platelet Count 166x10^3/uL (140-400) Neutrophils (%) (Auto) 89% (31-73) Lymphocytes (%) (Auto) 5% (24-48) Monocytes (%) (Auto) 6% (0-9) Eosinophils (%) (Auto) 0% (0-3) Basophils (%) (Auto) 0% (0-3) Neutrophils # (Auto) 12.1x10^3uL (1.8-7.7) Lymphocytes # (Auto) 0.7x10^3/uL (1.0-4.8) Monocytes # (Auto) 0.8x10^3/uL (0.0-1.1) Eosinophils # (Auto) 0.0x10^3/uL (0.0-0.7) Basophils # (Auto) 0.0x10^3/uL (0.0-0.2) Sodium Level 139mmol/L (136-145) Potassium Level 4.0mmol/L (3.5-5.1) Chloride Level 100mmol/L (98-107) Carbon Dioxide Level 32mmol/L (21-32) Anion Gap 7 (6-14) Blood Urea Nitrogen 26mg/dL (7-20) Creatinine 4.7mg/dL (0.6-1.0) Estimated GFR (Cockcroft-Gault) 11.7 Glucose Level 107mg/dL (70-99) Calcium Level 8.5mg/dL (8.5-10.1) Phosphorus Level 3.5mg/dL (2.6-4.7) Magnesium Level 1.9mg/dL (1.8-2.4) Albumin 2.8g/dL (3.4-5.0) Test 07/23/16 08:45 07/23/16 16:21 07/23/16 19:39 07/24/16 08:01 Glucose (Fingerstick) 105mg/dL (70-99) 141mg/dL (70-99) 148mg/dL (70-99) 94mg/dL (70-99) Test 07/24/16 08:15 White Blood Count 9.2x10^3/uL (4.0-11.0) Red Blood Count 2.83x10^6/uL (3.50-5.40) Hemoglobin 8.4g/dL (12.0-15.5) Hematocrit 25.4% (36.0-47.0) Mean Corpuscular Volume 90fL (79-100) Mean Corpuscular Hemoglobin 30pg (25-35) Mean Corpuscular Hemoglobin Concent 33g/dL (31-37) Red Cell Distribution Width 14.9% (11.5-14.5) Platelet Count 179x10^3/uL (140-400) Neutrophils (%) (Auto) 83% (31-73) Lymphocytes (%) (Auto) 10% (24-48) Monocytes (%) (Auto) 7% (0-9) Eosinophils (%) (Auto) 0% (0-3) Basophils (%) (Auto) 0% (0-3) Neutrophils # (Auto) 7.6x10^3uL (1.8-7.7) Lymphocytes # (Auto) 0.9x10^3/uL (1.0-4.8) Monocytes # (Auto) 0.6x10^3/uL (0.0-1.1) Eosinophils # (Auto) 0.0x10^3/uL (0.0-0.7) Basophils # (Auto) 0.0x10^3/uL (0.0-0.2) Sodium Level 133mmol/L (136-145) Potassium Level 3.9mmol/L (3.5-5.1) Chloride Level 95mmol/L (98-107) Carbon Dioxide Level 29mmol/L (21-32) Anion Gap 9 (6-14) Blood Urea Nitrogen 34mg/dL (7-20) Creatinine 6.1mg/dL (0.6-1.0) Estimated GFR (Cockcroft-Gault) 8.7 Glucose Level 89mg/dL (70-99) Calcium Level 8.8mg/dL (8.5-10.1) Phosphorus Level 2.9mg/dL (2.6-4.7) Albumin 2.9g/dL (3.4-5.0) Laboratory Tests Test 07/23/16 16:21 07/23/16 19:39 07/24/16 08:01 07/24/16 08:15 Glucose (Fingerstick) 141mg/dL (70-99) 148mg/dL (70-99) 94mg/dL (70-99) White Blood Count 9.2x10^3/uL (4.0-11.0) Red Blood Count 2.83x10^6/uL (3.50-5.40) Hemoglobin 8.4g/dL (12.0-15.5) Hematocrit 25.4% (36.0-47.0) Mean Corpuscular Volume 90fL (79-100) Mean Corpuscular Hemoglobin 30pg (25-35) Mean Corpuscular Hemoglobin Concent 33g/dL (31-37) Red Cell Distribution Width 14.9% (11.5-14.5) Platelet Count 179x10^3/uL (140-400) Neutrophils (%) (Auto) 83% (31-73) Lymphocytes (%) (Auto) 10% (24-48) Monocytes (%) (Auto) 7% (0-9) Eosinophils (%) (Auto) 0% (0-3) Basophils (%) (Auto) 0% (0-3) Neutrophils # (Auto) 7.6x10^3uL (1.8-7.7) Lymphocytes # (Auto) 0.9x10^3/uL (1.0-4.8) Monocytes # (Auto) 0.6x10^3/uL (0.0-1.1) Eosinophils # (Auto) 0.0x10^3/uL (0.0-0.7) Basophils # (Auto) 0.0x10^3/uL (0.0-0.2) Sodium Level 133mmol/L (136-145) Potassium Level 3.9mmol/L (3.5-5.1) Chloride Level 95mmol/L (98-107) Carbon Dioxide Level 29mmol/L (21-32) Anion Gap 9 (6-14) Blood Urea Nitrogen 34mg/dL (7-20) Creatinine 6.1mg/dL (0.6-1.0) Estimated GFR (Cockcroft-Gault) 8.7 Glucose Level 89mg/dL (70-99) Calcium Level 8.8mg/dL (8.5-10.1) Phosphorus Level 2.9mg/dL (2.6-4.7) Albumin 2.9g/dL (3.4-5.0) Medications Current Medications Heparin Sodium (Porcine) 5000 unit/Sodium Chloride 505 ml @ 505 mls/hr 1X PERIOP ONCE IRR Last administered on 07/21/16 14:06; Start 07/21/16 at 06:00 ; Stop 07/21/16 at 06:59; Status DC Cefazolin Sodium/ Sodium Chloride (Ancef/Iv Sodium Chloride 0.9% 500ml Bag) 500 ml @ 500 mls/hr 1X PERIOP ONCE IRR Last administered on 07/21/16 14:06; Start 07/21/16 at 06:00; Stop 07/21/16 at 06:59; Status DC Ondansetron HCl (Zofran) 4 mg PRN Q6HRS PRN IV Nausea; Start 07/21/16 at 07:00 ; Stop 07/21/16 at 18:00; Status DC Fentanyl Citrate (Fentanyl 2ml Vial) 25 mcg PRN Q5MIN PRN IV MILD PAIN Last administered on 07/21/16 17:19; Start 07/21/16 at 07:00; Stop 07/21/16 at 18:00 ; Status DC Fentanyl Citrate (Fentanyl 2ml Vial) 50 mcg PRN Q5MIN PRN IV MODERATE PAIN; Start 07/21/16 at 07:00; Stop 07/21/16 at 16:00; Status DC Morphine Sulfate 1 mg 1 mg PRN Q10MIN PRN IV SEVERE PAIN; Start 07/21/16 at 07: 00; Stop 07/21/16 at 07:00; Status DC Lactated Ringer's (Iv Lactated Ringers) 1,000 ml @ 30 mls/hr Q24H IV ; Start at 07:00; Stop 07/21/16 at 19:00; Status DC Lidocaine HCl 2 ml 1X PRN PRN ID IV START; Start 07/21/16 at 07:00; Stop at 18:00; Status DC Prochlorperazine Edisylate 5 mg 5 mg PACU PRN PRN IV NAUSEA Last administered on 07/21/16 17:26; Start 07/21/16 at 07:00; Stop 07/21/16 at 18:00; Status DC Cefazolin Sodium/ Dextrose 50 ml @ 100 mls/hr 1X ONCE IV Last administered on 07/21/16 14:00; Start 07/21/16 at 08:00; Stop 07/21/16 at 08:29; Status DC Sodium Chloride (Iv Sodium Chloride 0.9% 1000ml Bag) 1,000 ml @ 0 mls/hr 1X ONCE IV ; Start 07/21/16 at 12:15; Stop 07/21/16 at 12:16; Status DC Heparin Sodium (Porcine) 18531 unit 10,000 unit STK-MED ONCE .ROUTE ; Start at 12:48; Stop 07/21/16 at 12:49; Status DC Propofol (Diprivan) 20 ml @ As Directed STK-MED ONCE IV ; Start 07/21/16 at 12: 51; Stop 07/21/16 at 12:52; Status DC Lidocaine HCl 100 mg STK-MED ONCE .ROUTE ; Start 07/21/16 at 12:51; Stop at 12:52; Status DC Fentanyl Citrate (Fentanyl 2ml Vial) 100 mcg STK-MED ONCE .ROUTE ; Start at 12:51; Stop 07/21/16 at 12:52; Status DC Rocuronium [place] (Zemuron) 50 mg STK-MED ONCE .ROUTE ; Start 07/21/16 at 12:51 ; Stop 07/21/16 at 12:52; Status DC Cellulose 1 each STK-MED ONCE .ROUTE Last administered on 07/21/16 15:44; Start 07/21/16 at 12:54; Stop 07/21/16 at 12:55; Status DC Cellulose 1 each STK-MED ONCE .ROUTE ; Start 07/21/16 at 12:54; Stop 07/21/16 at 12:55; Status DC Phenylephrine HCl 10 mg 10 mg STK-MED ONCE .ROUTE ; Start 07/21/16 at 12:54; Stop 07/21/16 at 12:55; Status DC Cefazolin Sodium/ Dextrose (Ancef 2gm Premix) 50 ml @ 100 mls/hr Q6H IV Last administered on 07/22/16 08:17; Start 07/21/16 at 20:00; Stop 07/22/16 at 08:29 ; Status DC Aspirin (Ecotrin) 81 mg DAILYWBKFT PO Last administered on 07/23/16 08:18; Start 07/22/16 at 08:00 Clopidogrel Bisulfate (Plavix) 75 mg DAILYWBKFT PO Last administered on 08:19; Start 07/22/16 at 08:00 Al Hydroxide/Mg Hydroxide (Mylanta Plus Xs) 30 ml PRN Q3HRS PRN PO HEARTBURN / GAS; Start 07/21/16 at 13:15 Calcium Carbonate/ Glycine (Tums) 500 mg PRN Q3HRS PRN PO INDIGESTION; Start at 13:15 Diphenhydramine HCl (Benadryl) 25 mg PRN Q6HRS PRN PO ITCHING Last administered on 07/23/16 23:20; Start 07/21/16 at 13:15 Diphenhydramine HCl (Benadryl) 25 mg PRN Q6HRS PRN IV ITCHING; Start 07/21/16 at 13:15 Naloxone HCl (Narcan) 0.1 mg PRN Q2MIN PRN IV ADMIN; Start 07/21/16 at 13:15 Sodium Chloride (Normal Saline Flush) 3 ml QSHIFT PRN IV AFTER MEDS AND BLOOD DRAWS; Start 07/21/16 at 13:15 Oxycodone/ Acetaminophen (Percocet 5/325) 1 tab PRN Q4HRS PRN PO MILD PAIN, 1ST CHOICE Last administered on 07/23/16 23:11; Start 07/21/16 at 13:15 Docusate Sodium (Colace) 100 mg BID PO Last administered on 07/23/16 20:32; Start 07/21/16 at 21:00 Ondansetron HCl (Zofran) 4 mg PRN Q6HRS PRN IV NAUESA, 1ST CHOICE; Start at 13:15 Prochlorperazine Edisylate (Compazine) 5 mg PRN Q6HRS PRN IV N/V, 2nd Choice, MR X1 Last administered on 07/22/16 13:34; Start 07/21/16 at 13:15 Fentanyl Citrate (Fentanyl 2ml Vial) 100 mcg STK-MED ONCE .ROUTE ; Start at 14:09; Stop 07/21/16 at 14:10; Status DC Heparin Sodium (Porcine) 30,000 unit STK-MED ONCE .ROUTE ; Start 07/21/16 at 14: 14; Stop 07/21/16 at 14:15; Status DC Rocuronium [place] (Zemuron) 50 mg STK-MED ONCE .ROUTE ; Start 07/21/16 at 14:36 ; Stop 07/21/16 at 14:37; Status DC Protamine Sulfate 250 mg STK-MED ONCE IV ; Start 07/21/16 at 15:59; Stop at 16:00; Status DC Glycopyrrolate (Robinul) 1 mg STK-MED ONCE .ROUTE ; Start 07/21/16 at 16:04; Stop 07/21/16 at 16:05; Status DC Neostigmine Methylsulfate 5 mg STK-MED ONCE .ROUTE ; Start 07/21/16 at 16:04; Stop 07/21/16 at 16:05; Status DC Fentanyl Citrate (Fentanyl 2ml Vial) 50 mcg PRN Q5MIN PRN IV Acute Pain Last administered on 07/21/16t 18:47; Start 07/21/16 at 17:30; Stop 07/22/16 at 08:43 ; Status DC Hydralazine HCl (Apresoline) 10 mg PRN Q15MIN PRN IVP SBP Greater Than 180 Last administered on 07/21/16t 18:46; Start 07/21/16 at 17:30; Stop 07/22/16 at 08:43; Status DC Hydralazine HCl (Apresoline) 20 mg STK-MED ONCE .ROUTE ; Start 07/21/16 at 17:24 ; Stop 07/21/16 at 17:29; Status DC Fentanyl Citrate (Fentanyl 2ml Vial) 25 mcg PRN Q2HR PRN IV MILD-MOD PAIN; Start 07/21/16 at 18:45 Fentanyl Citrate (Fentanyl 2ml Vial) 50 mcg PRN Q2HR PRN IV PAIN SEV Last administered on 07/22/16t 08:06; Start 07/21/16 at 18:45 Hydralazine HCl (Apresoline) 10 mg PRN Q2HR PRN IVP ELEVATED BP, SEE COMMENTS; Start 07/21/16 at 18:45; Stop 07/22/16 at 15:59; Status DC Hydralazine HCl (Apresoline) 20 mg PRN Q2HR PRN IVP ELEVATED BP, SEE COMMENTS Last administered on 07/22/16 02:17; Start 07/21/16 at 18:45; Stop 07/22/16 at 08:43; Status DC Metoprolol Tartrate 10 mg 10 mg PRN Q6HRS PRN IVP ELEVATED BP, SEE COMMENTS; Start 07/21/16 at 18:45; Stop 07/22/16 at 12:00; Status DC Nicardipine HCl 50 mg/Sodium Chloride 270 ml @ 0 mls/hr CONT PRN IV SEE I/O RECORD Last administered on 07/22/16 08:09; Start 07/21/16 at 19:30 Magnesium Sulfate/ Dextrose (Magnesium Sulfate PREMIX 2GM) 50 ml @ 25 mls/hr PRN DAILY PRN IV for Mag < 1.7 on am labs; Start 07/22/16 at 07:00 Metoprolol Tartrate (Lopressor) 5 mg Q6HRS IVP Last administered on 07/22/16 12:50; Start 07/22/16 at 09:00; Stop 07/22/16 at 15:59; Status DC Hydralazine HCl (Apresoline) 50 mg Q8HRS IVP Last administered on 07/22/16 11: 33; Start 07/22/16 at 09:00; Stop 07/22/16 at 15:59; Status DC Clonidine HCl 1 patch 1 patch WEEKLY TD ; Start 07/22/16 at 09:00; Stop at 15:59; Status DC Sodium Chloride 1,000 ml @ 1,000 mls/hr Q1H PRN IV hypotension; Start 07/22/16 at 09:50; Stop 07/22/16 at 10:13; Status DC Sodium Chloride (Iv Sodium Chloride 0.9% 1000ml Bag) 1,000 ml @ 400 mls/hr Q2H30M PRN IV PATENCY; Start 07/22/16 at 09:50; Stop 07/22/16 at 10:13; Status DC Info (PHARMACY MONITORING -- do not chart) 1 each PRN DAILY PRN MC SEE COMMENTS ; Start 07/22/16 at 10:00 Info (PHARMACY MONITORING -- do not chart) 1 each PRN DAILY PRN MC SEE COMMENTS ; Start 07/22/16 at 10:00; Status UNV Metoclopramide HCl (Reglan) 5 mg TIDAC PRN IV NAUSEA/VOMITING; Start 07/22/16 at 10:45; Stop 07/22/16 at 10:49; Status DC Metoclopramide HCl (Reglan) 5 mg TIDAC IV ; Start 07/22/16 at 11:30; Stop at 13:01; Status DC Darbepoetin Ty (Aranesp) 60 mcg WEEKLYHS SQ Last administered on 07/22/16 21 :51; Start 07/22/16 at 21:00 Sertraline HCl (Zoloft) 100 mg DAILY PO Last administered on 07/23/16 08:21; Start 07/22/16 at 12:00 Metoclopramide HCl (Reglan) 2.5 mg TIDAC IV ; Start 07/22/16 at 13:30; Stop at 15:59; Status DC Amlodipine Besylate (Norvasc) 10 mg DAILY PO Last administered on 07/23/16 08: 21; Start 07/22/16 at 16:30 Aspirin (Ecotrin) 81 mg DAILY PO ; Start 07/23/16 at 09:00; Status UNV Atorvastatin Calcium (Lipitor) 40 mg HS PO Last administered on 07/23/16 20:32 ; Start 07/22/16 at 21:00 Calcium Acetate (Phoslo) 1,334 mg TIDWMEALS PO Last administered on 07/23/16 16:46; Start 07/22/16 at 17:00 Clonidine HCl (Catapres) 0.2 mg Q8HRS PO Last administered on 07/24/16 06:26; Start 07/22/16 at 16:30 Vitamin B Complex/ Vitamin C (Nephro-Donny) 1 tab DAILY PO ; Start 07/22/16 at 16 :30 Metoclopramide HCl (Reglan) 5 mg TIDAC PO Last administered on 07/23/16 16:46 ; Start 07/22/16 at 16:30 Pantoprazole Sodium (Protonix) 40 mg DAILYAC PO Last administered on 07/23/16 08:16; Start 07/23/16 at 07:30 Carvedilol (Coreg) 25 mg BIDWMEALS PO Last administered on 07/23/16 16:46; Start 07/22/16 at 17:00 Hydralazine HCl (Apresoline) 100 mg TID PO Last administered on 07/23/16 20:35 ; Start 07/22/16 at 21:00 Losartan Potassium (Cozaar) 100 mg DAILY PO Last administered on 07/23/16 08: 22; Start 07/22/16 at 16:30 Active Scripts Active Ondansetron Odt (Ondansetron) 4 Mg Tab.rapdis 4 Mg PO PRN Q8HRS PRN Hydralazine Hcl 100 Mg Tablet 1 Tab PO TID Nephro-Donny Tablet (Folic Acid/Vitamin B Comp W-C) 0.8 Mg Tablet 1 Tab PO DAILY Benadryl (Diphenhydramine Hcl) 25 Mg Capsule 25 Mg PO PRN Q6HRS PRN Clonidine Hcl 0.2 Mg Tablet 0.2 Mg PO Q8HRS Amlodipine Besylate 10 Mg Tablet 10 Mg PO DAILY Oxycodone Hcl 5 Mg Tablet 1-2 Tab PO PRN Q6HRS PRN Reported Novolog (Insulin Aspart) 100 Unit/1 Ml Cartridge 100 Unit SQ TIDAC per sliding scale Zoloft (Sertraline Hcl) 100 Mg Tablet 1 Tab PO DAILY Pantoprazole Sodium 40 Mg Tablet. 1 Tab PO DAILY Reglan (Metoclopramide Hcl) 10 Mg Tablet 5 Mg PO TIDAC Phoslo (Calcium Acetate) 667 Mg Capsule 1,334 Mg PO TIDWMEALS Losartan Potassium 100 Mg Tablet 100 Mg PO DAILY Levemir (Insulin Detemir) 100 Unit/1 Ml Vial 8 Unit SQ HS Coreg (Carvedilol) 25 Mg Tablet 25 Mg PO BIDWMEALS Atorvastatin Calcium 40 Mg Tablet 40 Mg PO HS Aspir 81 (Aspirin) 81 Mg Tablet.dr 81 Mg PO DAILY Vitals/I & O Vital Sign - Last 24 Hours 07/23/16 07/23/16 07/23/16 07/23/16 12:00 14:44 14:44 16:15 Temp 98.1 98.3 98.1 98.3 Pulse 68 63 Resp 14 16 B/P 124/59 110/50 110/50 137/99 Pulse Ox 100 98 O2 Delivery Room Air Room Air 207/23/16 07/23/16 07/23/16 16:46 19:00 20:00 20:35 Temp 97.8 97.8 Pulse 66 66 66 Resp 18 B/P 137/99 132/70 137/99 Pulse Ox 96 O2 Delivery Room Air Room Air 07/23/16 07/23/16 07/23/16 07/24/16 23:00 23:08 23:11 00:11 Temp 99.0 99.0 Pulse 71 71 Resp 18 20 20 B/P 144/58 144/58 Pulse Ox 94 96 96 O2 Delivery Room Air Room Air Room Air 07/24/16 07/24/16 07/24/16 03:00 06:26 07:00 Temp 99.2 98.1 99.2 98.1 Pulse 72 72 70 Resp 18 16 B/P 145/47 145/47 144/56 Pulse Ox 92 98 O2 Delivery Room Air Room Air Intake and Output 07/23/16 07/23/16 07/24/16 15:00 23:00 07:00 Intake Total 450 ml 120 ml 0 ml Balance 450 ml 120 ml 0 ml HERI MALDONADO APRN Jul 24, 2016 09:29
[2016-07-24] MEDS ORDERED: POLYETHYLENE GLYCOL 3350 17 GM PACKET. PO SCH (09:30)
[2016-07-24] MEDS: LOSARTAN POTASSIUM 50 MG TABLET. PO SCH (09:30)
[2016-07-24] MEDS: CARVEDILOL 12.5 MG TABLET PO SCH ×2 (09:30→17:00)
[2016-07-24] MEDS ORDERED: SENNOSIDES/DOCUSATE 8.6/50MG TABLET. PO SCH (09:30)
[2016-07-24] MEDS: PANTOPRAZOLE 40 MG TABLET. PO SCH (09:30)
[2016-07-24] MEDS: DOCUSATE SODIUM 100 MG CAPSULE PO SCH (09:30)
[2016-07-24] MEDS: SERTRALINE 50 MG TABLET. PO SCH (09:30)
[2016-07-24] MEDS: METOCLOPRAMIDE 10 MG TABLET PO SCH ×3 (09:31→16:30)
[2016-07-24] MEDS: CLOPIDOGREL BISULFATE 75 MG TABLET PO SCH (09:31)
[2016-07-24] MEDS: AMLODIPINE BESYLATE 10 MG TABLET PO SCH (09:31)
[2016-07-24] MEDS: ASPIRIN ENTERIC COATED 81 MG TABLET.DR. PO SCH (09:31)
[2016-07-24] MEDS: FOLIC/VIT B COMP W-C (RENAL) TABLET. PO SCH (09:31)
[2016-07-24] MEDS: OXYCODONE/APAP 5/325 TABLET. PO PRN ×2 (09:36→16:50)
[2016-07-24] MEDS ORDERED: CLOP75TA PO (10:06)
--- NOTE | 2016-07-24 10:55 | PDOC ---
Renal-Progress Notes Subjective Notes Notes ABD PAIN IS BETTER History of Present Illness Hx of present illness IMPROVED Vitals Vitals Vital Signs Date Time Temp Pulse Resp B/P Pulse Ox O2 Delivery O2 Flow Rate FiO2 07/24/16 09:36 16 Room Air 07/24/16 09:31 70 144/56 07/24/16 07:00 98.1 98 98.1 Weight Weight [ ] I.O. Intake and Output Intake and Output 07/24/16 07:00 Intake Total 570 ml Balance 570 ml Intake Oral 570 ml # Voids 2 Labs Labs Laboratory Tests Test 07/23/16 16:21 07/23/16 19:39 07/24/16 08:01 07/24/16 08:15 Glucose (Fingerstick) 141mg/dL (70-99) 148mg/dL (70-99) 94mg/dL (70-99) White Blood Count 9.2x10^3/uL (4.0-11.0) Red Blood Count 2.83x10^6/uL (3.50-5.40) Hemoglobin 8.4g/dL (12.0-15.5) Hematocrit 25.4% (36.0-47.0) Mean Corpuscular Volume 90fL (79-100) Mean Corpuscular Hemoglobin 30pg (25-35) Mean Corpuscular Hemoglobin Concent 33g/dL (31-37) Red Cell Distribution Width 14.9% (11.5-14.5) Platelet Count 179x10^3/uL (140-400) Neutrophils (%) (Auto) 83% (31-73) Lymphocytes (%) (Auto) 10% (24-48) Monocytes (%) (Auto) 7% (0-9) Eosinophils (%) (Auto) 0% (0-3) Basophils (%) (Auto) 0% (0-3) Neutrophils # (Auto) 7.6x10^3uL (1.8-7.7) Lymphocytes # (Auto) 0.9x10^3/uL (1.0-4.8) Monocytes # (Auto) 0.6x10^3/uL (0.0-1.1) Eosinophils # (Auto) 0.0x10^3/uL (0.0-0.7) Basophils # (Auto) 0.0x10^3/uL (0.0-0.2) Sodium Level 133mmol/L (136-145) Potassium Level 3.9mmol/L (3.5-5.1) Chloride Level 95mmol/L (98-107) Carbon Dioxide Level 29mmol/L (21-32) Anion Gap 9 (6-14) Blood Urea Nitrogen 34mg/dL (7-20) Creatinine 6.1mg/dL (0.6-1.0) Estimated GFR (Cockcroft-Gault) 8.7 Glucose Level 89mg/dL (70-99) Calcium Level 8.8mg/dL (8.5-10.1) Phosphorus Level 2.9mg/dL (2.6-4.7) Albumin 2.9g/dL (3.4-5.0) Review of Systems Constitutional: yes: no symptom reported Physical Exam General Appearance: no apparent distress Skin: warm Respiratory: decreased breath sounds Heart: S1S2, RRR Abdomen: soft, bowel sounds present Genitourinary: bladder flat Extremities: pulses present, atrophy Neurology: alert Musculoskeletal: Osteoarthritis Assessment Assessment IMP ESRD ANEMIA HTN-IMPROVED S/P CELIAC ARTERY BYPASS PLAN HD TODAY UF TO DW WILL FOLLOW TING REYNA MD Jul 24, 2016 10:55
[2016-07-24 11:23] VITALS: BP 144/58
[2016-07-24] MEDS ORDERED: LIDOCAINE 1% PF 2 ML VIAL. ID STA (14:29)
[2016-07-24] MEDS ORDERED: LABETALOL 20 MG/4 ML DISP.SYRIN. IVP PRN (14:30)
[2016-07-24] MEDS ORDERED: DIALYSIS PATIENT. MC PRN (14:30)
[2016-07-24] MEDS ORDERED: DIPHENHYDRAMINE 50 MG/ML VIAL IV PRN ×2 (14:30)
[2016-07-24] MEDS ORDERED: ACETAMINOPHEN 500 MG TABLET PO PRN (14:30)
[2016-07-24] MEDS ORDERED: IV NORMAL SALINE 1000ML BAG 1,000 ML IV PRN ×2 (14:30)
== END 2016-07-24 20:10 | disposition home or self-care (01) | DRG 356 ==
LOC: OPSVCIP 11:41 → 1 WEST ICU 18:22 → 4 NORTH 07-23 15:57
PROVIDERS: ADMIT Internal Medicine; ATTEND Internal Medicine
PROC: 041 Lower Arteries, Bypass (ICD-10-PCS; principal; 2016-07-21 13:00)
DX: I77.4 Celiac artery compression syndrome (principal); N18.6 End stage renal disease; G92 Toxic encephalopathy; I13.2 Hypertensive heart and chronic kidney disease with heart failure and with stage 5 chronic kidney disease, or end stage renal disease; I50.32 Chronic diastolic (congestive) heart failure; D64.9 Anemia, unspecified; D72.829 Elevated white blood cell count, unspecified; E11.22 Type 2 diabetes mellitus with diabetic chronic kidney disease; E78.5 Hyperlipidemia, unspecified; G89.29 Other chronic pain; M19.90 Unspecified osteoarthritis, unspecified site; I25.10 Atherosclerotic heart disease of native coronary artery without angina pectoris; I27.2 Other secondary pulmonary hypertension; J45.909 Unspecified asthma, uncomplicated; K21.9 Gastro-esophageal reflux disease without esophagitis; T40.605A Adverse effect of unspecified narcotics, initial encounter; Z79.899 Other long term (current) drug therapy; Z81.1 Family history of alcohol abuse and dependence; Z83.3 Family history of diabetes mellitus; Z88.8 Allergy status to other drugs, medicaments and biological substances; Z86.73 Personal history of transient ischemic attack (TIA), and cerebral infarction without residual deficits
CPT/HCPCS: 36415; 80048; 80069; 82947; 83735; 85007; 85027; 85610; 85730; 86850; 86900; 86901; 87641; C1768; J0360; J0690; J0780; J0881; J1644; J2704; J2710; J3010; J3490; J7030; J7040; J7050; J7120; J8597; Q0163

== ENCOUNTER → 2016-11-09 | Day surgery (SDC) | payer MEDICARE, OTHER ==
[~2016-11-09] MED LIST changes: -CEFAZOLIN 2GM PREMIX 50 ML IV ONE; -CEFAZOLIN SODIUM 1 GM in IV NORMAL SALINE 500ML BAG 500 ML IRR ONE; +CLOP75TA PO; -FENTANYL PF 100 MCG/2 ML VIAL. IV PRN; -HEPARIN S0DIUM 5,000 UNIT in IV NORMAL SALINE 500ML BAG 500 ML IRR ONE; +IV NORMAL SALINE 1000ML BAG 1,000 ML IV SCH; -IV RINGERS,LACTATED 1000ML 1,000 ML IV SCH; -LIDOCAINE 1% 1 ML SYRINGE. ID PRN; -MORPHINE SULFATE 2 MG/ML DISP.SYRIN. IV PRN; -ONDANSETRON PF 4 MG/2 ML VIAL. IV PRN; +OXYC5TAB PO; +POLY17PO29 PO; -POLY17PO5 PO; -PROCHLORPERAZINE 10 MG/2 ML VIAL. IV PRN; +PROPOFOL 20 ML IV ONE
--- NOTE | 2016-11-09 09:05 | PDOC1 ---
HISTORY & PHYSICAL H&P Raven Ruiz [id number] 1960 10/07/2016 02:20 PM 06/07 [place] [facility], [place] [facility] [address] [place] [address] Ph. [phone] Patient: Raven Ruiz Date of : 1960 Date: 10/07/2016 2:20 PM Historian: self Visit Type: Office Visit This 56 year old female presents for Abdominal pain and Nausea. History of Present Illness: 1. Abdominal pain Location is epigastric, midline. The patient describes it as aching and bloating. Context: no pattern noted. Denies aggravating factors. Denies relieving factors. Additional information: Patient has gurgling. Has some nausea. Had vascular bypass for celiac artery narrowing. Has significant improvement in her symptoms. Had gastroparesis and is on Reglan 5 mg bid. Not helping much. 2. Nausea Additional information: Has periodic nausea and vomiting. Has gastroparesis and on Reglan 5 mg tid.. INTAKE COMMENTS: Intake Comments: Nurses Notes: Pt is here today to follow up on abdominal pains , Pt says abdominal pains are improving but now suffers with Nausea. 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 Coronary artery disease Diabetes type 2 with ESRD on insulin Due to ESRD/Fe deficency ESRD fistula LUE September 2015 GERD Hyperlipidemia Hypertension hypertensive renal disease with ESRD Dialysis since October 2015 partial hyst with ovaries remaining Stroke L sided weakness at 53 yo DIAGNOSTICS HISTORY: Test Ordered Interpretation Result completed Magnetic resonance cholangiopancreatography (MRCP) 06/19/2016 normal Imp: Status post cholecystectomy. Suboptimal exam revealing no biliary tract abnormality. 06/23/2016 EGD 06/19/2016 normal 06/22/2016 Test Ordered Ordering Comments Modifier Magnetic resonance cholangiopancreatography (MRCP) 06/19/2016 EGD 06/19/2016 Medications (Active): Started Medication Directions Instruction Stopped 08/05/2016 Amlodipine Besylate 10 Mg Tablet 10 MG PO DAILY 02/19/2016 Aspir-81 81 mg tablet,delayed release take 1 tablet by oral route every day 10/01/2016 atorvastatin 40 mg tablet take 1 tablet by oral route every day 07/10/2016 Benadryl 25 mg capsule take 1 capsule by oral route every 6 hours as needed 07/10/2016 calcium acetate 667 mg capsule take 1 capsule by ORAL route 3 times every day with meals 08/13/2016 Clonidine Hcl 0.2 Mg Tablet 0.2 MG PO Q8HRS 07/10/2016 Coreg 25 mg tablet take 1 tablet by oral route 2 times every day with food 10/07/2016 erythromycin 250 mg tablet 1/2 tab half hr before meal tid. 07/10/2016 hydralazine 100 mg tablet take 1 tablet by oral route 3 times every day with food 05/18/2016 Levemir FlexTouch 100 unit/mL (3 mL) subcutaneous insulin pen inject 10 by subcutaneous route at HS 07/10/2016 Lidoderm 5 % topical patch apply 1 by Transdermal route once for 12 hours to affected area 07/10/2016 losartan 100 mg tablet take 1 tablet by oral route every day 07/10/2016 Nephro-Donny 0.8 mg tablet take 1 tab daily 02/19/2016 Nitrostat 0.[address] 1 tablet by sublingual route at the 1st sign of attack; may repeat every 5 min until relief; if pain persists after 3 tablets in 15 min, prompt medical attention is recommended 02/19/2016 Novolog Flexpen 100 unit/mL subcutaneous inject 10 by subcutaneous route as per insulin sliding scale protocol 08/13/2016 Ondansetron (Ondansetron Odt) 4 Mg Tab.rapdis 4 MG PO PRN Q8HRS PRN 10/01/2016 pantoprazole 40 mg tablet,delayed release take 1 tablet by oral route every day 07/24/2016 Plavix 75 mg tablet take 1 tablet by oral route every day 09/30/2016 REGLAN 5 MG TABLET TAKE 1 TABLET BY MOUTH 3 TIMES A DAY. 07/10/2016 sertraline 100 mg tablet take 1 tablet by oral route every day Allergies: Ingredient Reaction Medication Name Comment METFORMIN LISINOPRIL HYDROMORPHONE HCL Dilaudid AMITRIPTYLINE REVIEW OF SYSTEMS System Neg/Pos Details Constitutional Negative Chills, fever, malaise and weight loss. ENMT Negative Sore throat. Eyes Negative Double vision. Respiratory Negative Dyspnea and wheezing. Cardio Negative Chest pain and irregular heartbeat/palpitations. GI Positive See HPI. GI Negative See HPI. Negative Dysuria and hematuria. Endocrine Negative Cold intolerance and heat intolerance. Psych Negative Anxiety. Integumentary Negative Hives and rash. MS Negative Joint pain. Ced/Lymph Negative Easy bleeding and easy bruising. Allergic/Immuno Negative Food allergies. VITAL SIGNS Time BP mm/Hg Pulse /min Resp /min Temp F Ht ft Ht in Ht cm Wt lb Wt kg BMI kg/ m2 BSA m2 O2 Sat% 2:30 PM 122/76 84 97.9 5.0 2.50 158.75 168.00 76.204 30.24 99 Time Measured by 2:30 PM Jaimie Montesinos PHYSICAL EXAM: Exam Findings Details Constitutional Normal Well developed. Eyes Normal Conjunctiva - Right: Normal, Left: Normal. Sclera - Right: Normal, Left: Normal. Nasopharynx Normal Lips/teeth/gums - Normal. Neck Exam Normal Inspection - Normal. Thyroid gland - Normal. Respiratory Normal Inspection - Normal. Auscultation - Normal. Cardiovascular Normal Regular rate and rhythm. No murmurs, gallops, or rubs. Vascular Normal Pulses - Carotids: Normal, Femoral: Normal, Dorsalis pedis: Normal. Abdomen Normal Inspection - Normal. Anterior palpation - No guarding. No abdominal tenderness. No hepatic enlargement. No splenic enlargement. No hernia. No Ascites. Skin Normal Inspection - Normal. Extremity Normal No edema. Psychiatric Normal Oriented to time, place, person, and situation. Appropriate mood and effect. The patient was checked out at 2:30 PM by Jaimie Montesinos. Assessment/Plan # Detail Type Description 1. Assessment Gastroparesis (K31.84). Patient Plan Add Erythromycin 125 mg tid. 2. Assessment Gastroparesis diabeticorum (E11.43). Patient Plan Continue tight control of DM. 3. Assesment Patient Plan Screening colonoscopy Colonoscopy Electronically signed by: Zaki Ng MD 10/07/2016 02:32 PM Document generated by: Zaki Ng 10/07/2016 02:32 PM Yazmin Man MD, Family Practice; Margarito Arthur MD Internal Medicine; Ibis Lynn MD, Internal Medicine; Saravanan Ng MD Internal Medicine; Zaki Ng MD, Gastroenterology; Amilcar Perea MD, Rheumatology, S. Trae Brunner, Physical Medicine/Rehab JSonia Damon APRN ------ 11/09/16 Patient is here for screening colonoscopy. Had been seen before in office for other issue. Patient examined. No change in H&P. ZAKI NG MD Nov 09, 2016 09:05
--- NOTE | 2016-11-09 09:31 | PDOC4 ---
GI OP Report - Dr. Dang Date/Time DATE: 11/09/16 TIME: 09:25 Attending Physician Ulises Dang MD Referring Physician Indications Screening for colorectal malignant neoplasm Pre-Op See the Anesthesia note for documentation of the administered medications Procedures Colonoscopy Findings - The entire examined colon is normal on direct and retroflexion views. - No specimens collected. Plan - Discharge patient to home. - Patient has a contact number available for emergencies. The signs and symptoms of potential delayed complications were discussed with the patient. Return to normal activities tomorrow. Written discharge instructions were provided to the patient. - Resume regular diet. - Continue present medications. - Repeat colonoscopy in 10 years for surveillance. - Return to my office as needed. ULISES DANG MD Nov 09, 2016 09:31
[2016-11-09 09:55] VITALS: BP 200/90
== END | disposition home or self-care (01) ==
LOC: ENDOS 07:58
PROVIDERS: ATTEND Internal Medicine Gastroenterology
DX: Z12.11 Encounter for screening for malignant neoplasm of colon (principal); I13.2 Hypertensive heart and chronic kidney disease with heart failure and with stage 5 chronic kidney disease, or end stage renal disease; E11.22 Type 2 diabetes mellitus with diabetic chronic kidney disease; N18.6 End stage renal disease; I50.30 Unspecified diastolic (congestive) heart failure; F41.9 Anxiety disorder, unspecified; F32.9 Major depressive disorder, single episode, unspecified; Z98.41 Cataract extraction status, right eye; Z98.42 Cataract extraction status, left eye; Z86.73 Personal history of transient ischemic attack (TIA), and cerebral infarction without residual deficits; Z90.710 Acquired absence of both cervix and uterus; Z98.51 Tubal ligation status
CPT/HCPCS: G0121; J2704

== ENCOUNTER 2016-12-29 08:39 | Emergency (ER) | payer OTHER ==
[~2016-12-29] VITALS: Ht 158.8 cm; Wt 77.1 kg
[~2016-12-29 08:39] MED LIST changes: +CEFP200T PO; +HYDR-2869 PO; +INSU100I17 SQ; -IV NORMAL SALINE 1000ML BAG 1,000 ML IV SCH; +LIPA1CAP12 PO; +OXYC5CAP PO; -OXYC5CAP3 PO; -PROPOFOL 20 ML IV ONE
[2016-12-29] MEDS ORDERED: IPRATRPIUM/ALBUTEROL 0.5/2.5MG 3 ML NEBU. NEB ONE (09:00)
--- NOTE | 2016-12-29 09:03 | RAD ---
Portable chest, 12/29/2016: History: Shortness of breath Comparison is made to a study from 11/25/2016. The heart is mildly enlarged. There is minimal left basilar scarring. No pulmonary infiltrates are seen. There is no evidence of pleural fluid. IMPRESSION: 1. Mild cardiomegaly. 2. No acute abnormality is detected.
--- NOTE | 2016-12-29 09:07 | EKG ---
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
--- NOTE | 2016-12-29 09:19 | PHYS DOC ---
Past Medical History Past Medical History: Alcoholism, Anemia, Asthma, CHF, Diabetes-Type II, High Cholesterol, Hypertension, Renal Disease Additional Past Medical Histor: HEPATITIS C, dialysis T,, Sat Past Surgical History: Hysterectomy, Other Additional Past Surgical Histo: LEFT ARM A/V FISTULA Alcohol Use: None Drug Use: None Adult General Chief Complaint Chief Complaint: SHORTNESS OF BREATH [facility] HPI Patient is a 56 year old female who presents with shortness of breath and cough that developed this morning when she woke up. Reports sharp chest pain, constant since yesterday. Takes daily aspirin but hasn't yet taken todays. H/ o ESRD and last dialyzed last Wednesday, scheduled for 10:30 am this morning. Denies known fevers, cough is nonproductive. has not taken anything for her symptoms. Review of Systems Review of Systems Constitutional: Denies fever or chills [] Eyes: Denies change in visual acuity, redness, or eye pain [] HENT: Denies nasal congestion or sore throat [] Respiratory: per hpi Cardiovascular: No additional information not addressed in HPI [] GI: Denies abdominal pain, nausea, vomiting, bloody stools or diarrhea [] : Denies dysuria or hematuria [] Musculoskeletal: Denies back pain or joint pain [] Integument: Denies rash or skin lesions [] Neurologic: Denies headache, focal weakness or sensory changes [] Endocrine: Denies polyuria or polydipsia [] Current Medications Current Medications Current Medications Medications (Trade) Dose Ordered Sig/Srinath Start Time Stop Time Status Last Admin Dose Admin Albuterol/ Ipratropium (Duoneb) 3 ml 1X ONCE 12/29/16 09:00 12/29/16 09:01 DC 12/29/16 09:12 3 ML Allergies Allergies Allergies Coded Allergies Type Severity Reaction Last Updated Verified amitriptyline Allergy Intermediate 11/09/16 Yes hydromorphone Allergy Intermediate 11/09/16 Yes lisinopril Allergy Intermediate 11/09/16 Yes metformin Allergy Intermediate 11/09/16 Yes I S O L A T I O N *CONTACT* Allergy Unknown 11/09/16 Yes Physical Exam Physical Exam Constitutional: Well developed, well nourished, no acute distress, non-toxic appearance, intermittently dry coughing HENT: Normocephalic, atraumatic, bilateral external ears normal, oropharynx moist, no oral exudates, nose normal. [] Eyes: PERRLA, EOMI, conjunctiva normal, no discharge. [] Neck: Normal range of motion, no tenderness, supple, no stridor. [] Cardiovascular:Heart rate regular with regular rhythm, no murmur [] Lungs & Thorax: Bilateral breath sounds, moderate air movement, faint bilateral lower lobe crackles, no significant wheeze. Abdomen: Bowel sounds normal, soft, no tenderness, no masses Skin: Warm, dry, no erythema, no rash. [] Back: No tenderness, no CVA tenderness. [] Extremities: No tenderness, no cyanosis, no clubbing, ROM intact, no edema.negative homen's bilaterally Neurologic: Alert and oriented X 3, normal motor function, normal sensory function, no focal deficits noted. [] Current Patient Data Vital Signs Vital Signs Date Time Temp Pulse Resp B/P (MAP) Pulse Ox O2 Delivery O2 Flow Rate FiO2 12/29/16 09:52 95 24 208/97 (134) 90 Room Air 12/29/16 08:39 98.4 98.4 EKG EKG 97 bpm, sinus, normal axis, QTC of 477, no ST elevation or depression, T-wave inversion in aVL, V6, compared with EKG from 11/2016 and there is improvement in T waves today in comparison and otherwise no acute change. Radiology/Procedures Radiology/Procedures CXR: Portable chest, 12/29/2016: History: Shortness of breath Comparison is made to a study from 11/25/2016. The heart is mildly enlarged. There is minimal left basilar scarring. No pulmonary infiltrates are seen. There is no evidence of pleural fluid. IMPRESSION: 1. Mild cardiomegaly. 2. No acute abnormality is detected. [] Course & Med Decision Making Course & Med Decision Making Pertinent Labs and Imaging studies reviewed. (See chart for details) istat trop negative, CXR reviewed, Pt has stable vital signs and most likely wound benefit most from getting dialysis. As she or he has a scheduled at 10:30 , I would be best to send her dialysis. I confirmed with her primary care physician, Dr. Dang, who agrees with this discharge plan. Patient was instructed to return if she has worsening symptoms or feels no improvement after dialysis. Nurse arranged transport directly to her dialysis center. Dragon Disclaimer Dragon Disclaimer This electronic medical record was generated, in whole or in part, using a voice recognition dictation system. Departure Departure Impression: Primary Impression: Shortness of breath Additional Impression: Cough Disposition: 01 HOME, SELF-CARE Condition: STABLE Referrals: GAURAV DANG MD (PCP) Problem Qualifiers KARTHIK LI MD Dec 29, 2016 09:19
[2016-12-29 09:52] VITALS: BP 208/97
[2016-12-30] MEDS ORDERED: CLOP75TA57 PO (00:59)
[2016-12-30] MEDS ORDERED: PhosLo PO (00:59)
[2016-12-30] MEDS ORDERED: CLON0.2T PO (00:59)
[2016-12-30] MEDS ORDERED: CARV25TA PO (00:59)
[2016-12-30] MEDS ORDERED: NITR0.4T SL (00:59)
[2016-12-30] MEDS ORDERED: CYAN1TAB2 PO (00:59)
== END 2016-12-29 10:13 | disposition home or self-care (01) ==
LOC: ER 08:39
DX: R06.02 Shortness of breath (principal); R05 Cough; I13.2 Hypertensive heart and chronic kidney disease with heart failure and with stage 5 chronic kidney disease, or end stage renal disease; I50.9 Heart failure, unspecified; N18.6 End stage renal disease; E11.22 Type 2 diabetes mellitus with diabetic chronic kidney disease; E78.00 Pure hypercholesterolemia, unspecified; J45.909 Unspecified asthma, uncomplicated; F10.20 Alcohol dependence, uncomplicated; Z86.2 Personal history of diseases of the blood and blood-forming organs and certain disorders involving the immune mechanism; Z99.2 Dependence on renal dialysis; Z86.19 Personal history of other infectious and parasitic diseases; Z88.5 Allergy status to narcotic agent; Z88.8 Allergy status to other drugs, medicaments and biological substances; Z91.041 Radiographic dye allergy status
CPT/HCPCS: 71010; 84484; 93005; 94250; 94640; 99284; J7620

== ENCOUNTER 2017-02-14 09:44 | Emergency (ER) | payer OTHER ==
[~2017-02-14] VITALS: Ht 158.8 cm; Wt 74.8 kg
[~2017-02-14 09:44] MED LIST changes: +CLOP75TA57 PO; +CYAN1TAB2 PO; +NITR0.4T SL; -OXYC5TAB PO; +OXYC5TAB95 PO; +PhosLo PO
[2017-02-14] MEDS ORDERED: cloNIDine HCL 0.2 MG TABLET PO STA (09:57)
[2017-02-14] MEDS ORDERED: amLODIPine BESYLATE 10 MG TABLET PO STA (09:57)
--- NOTE | 2017-02-14 10:19 | PHYS DOC ---
Past Medical History Past Medical History: Alcoholism, Anemia, Asthma, CHF, Diabetes-Type II, High Cholesterol, Hypertension, Hepatitis, Renal Disease Additional Past Medical Histor: HEPATITIS C, Past Surgical History: Hysterectomy, Other Additional Past Surgical Histo: LEFT ARM A/V FISTULA Alcohol Use: None Drug Use: None Adult General Chief Complaint Chief Complaint: UPPER EXTREMITY PAIN HPI HPI Patient is a 56 year old female who presents with complaint of left elbow pain. Patient states that she awoke with pain this morning. Patient denies any pain associated with the elbow last night before bedtime. Patient has history of end-stage renal disease and has a left upper arm fistula. Patient underwent dialysis yesterday with no complications. The patient states that the pain is most severe along the posterior aspect of the elbow as well as along the distal aspect of the triceps muscle. Patient does not recall lifting anything heavy or any overuse of the arm yesterday at onset of symptoms. Patient denies any associated chest pain, shortness of breath. Patient was noted to have high blood pressure in the emergency department. Patient states that she has not taken her medications for blood pressure this morning. Patient rates her pain as 10 out of 10 currently. Review of Systems Review of Systems Constitutional: Denies fever or chills [] Eyes: Denies change in visual acuity, redness, or eye pain [] HENT: Denies nasal congestion or sore throat [] Respiratory: Denies cough or shortness of breath [] Cardiovascular: Denies chest pain or edema[] GI: Denies abdominal pain, nausea, vomiting, bloody stools or diarrhea [] : Denies dysuria or hematuria [] Musculoskeletal: Left elbow pain[] Integument: Denies rash or skin lesions [] Neurologic: Denies headache, focal weakness or sensory changes [] Current Medications Current Medications Current Medications Medications (Trade) Dose Ordered Sig/Srinath Start Time Stop Time Status Last Admin Dose Admin Acetaminophen/ Hydrocodone Bitart (Lortab 5/325) 1 tab 1X ONCE 02/14/17 11:30 02/14/17 11:33 DC 02/14/17 11:45 1 TAB Amlodipine Besylate (Norvasc) 10 mg 1X STAT 02/14/17 09:57 02/14/17 10:02 DC 02/14/17 10:12 10 MG Clonidine HCl (Catapres) 0.2 mg 1X STAT 02/14/17 09:57 02/14/17 10:02 DC 02/14/17 10:13 0.2 MG Allergies Allergies Allergies Coded Allergies Type Severity Reaction Last Updated Verified amitriptyline Allergy Intermediate 11/09/16 Yes hydromorphone Allergy Intermediate 11/09/16 Yes lisinopril Allergy Intermediate 11/09/16 Yes metformin Allergy Intermediate 11/09/16 Yes I S O L A T I O N *CONTACT* Allergy Unknown 11/09/16 Yes Physical Exam Physical Exam Constitutional: Alert, afebrile, hypertensive, appears in moderate discomfort. [ ] HENT: Normocephalic, atraumatic, bilateral external ears normal, oropharynx moist, no oral exudates, nose normal. [] Eyes: PERRLA, EOMI, conjunctiva normal, no discharge. [] Neck: Normal range of motion, no tenderness, supple, no stridor. [] Cardiovascular:Heart rate regular rhythm, no murmur [] Lungs & Thorax: Bilateral breath sounds clear to auscultation [] Abdomen: Bowel sounds normal, soft, no tenderness, no masses, no pulsatile masses. [] Skin: Warm, dry, no erythema, no rash. [] Back: No tenderness, no CVA tenderness. [] Extremities: Left upper arm fistula with palpable thrill, tenderness to palpation along posterior aspect of left elbow proximal to the olecranon overlying the triceps tendon, pain with extension at elbow, no soft tissue swelling, warmth, or erythema present, pulses 2+ distal to elbow, normal sensation and normal capillary refill in all 5 digits of left hand. [] Neurologic: Alert and oriented X 3, normal motor function, normal sensory function, no focal deficits noted. [] Current Patient Data Vital Signs Vital Signs Date Time Temp Pulse Resp B/P (MAP) Pulse Ox O2 Delivery O2 Flow Rate FiO2 02/14/17 11:45 22 02/14/17 11:38 64 215/88 (130) 99 Room Air 02/14/17 09:44 98.4 98.4 EKG EKG Not performed[] Radiology/Procedures Radiology/Procedures [facility] [address] [place], [place] [id number] IMAGING REPORT Signed PATIENT: BRIANNA NICHOLSON ACCOUNT: [id number] : 1960 LOCATION: ER AGE: 56 SEX: F EXAM STATUS: REG ER ORD. PHYSICIAN: KALE IRVING MD REASON: left elbow pain PROCEDURE: ELBOW LEFT 3V Left elbow, 3 views, 02/14/2017: History: Elbow pain No fracture or dislocation is identified. No joint effusion is evident. Surgical clips are present in the antecubital fossa. There is subcutaneous edema posteriorly at the elbow. IMPRESSION: No acute bony abnormality is detected. DICTATED and SIGNED BY: SIM SIDDIQUI MD DATE: 02/14/17 1043 CC: KALE IRVING MD; GAURAV DANG MD ~ [] Course & Med Decision Making Course & Med Decision Making Pertinent Labs and Imaging studies reviewed. (See chart for details) Patient's x-rays were negative for acute injury. Patient was treated with [place] for pain. The patient's symptoms do not appear consistent with an acute joint infection and patient's fistula appears to be normal on the exam. The patient may have inflammation to the elbow secondary to possible overuse injury. The patient will be discharged with [place] for pain with recommended follow-up in 2- 3 days for reevaluation. The patient was given oral doses of her blood pressure medication in the emergency department. The patient's blood pressure did remain elevated, however patient denies any symptoms of headache, vision changes, shortness of breath, or chest pain. The patient states that she feels comfortable leaving and will continue on her oral hypertensive medications at home. Advised return emergency department for any worsening symptoms. Patient voiced understanding and in agreement with treatment plan. Dragon Disclaimer Dragon Disclaimer This electronic medical record was generated, in whole or in part, using a voice recognition dictation system. Departure Departure Impression: Primary Impression: Left elbow pain Additional Impressions: Accelerated hypertension End stage renal disease Disposition: HOME, SELF-CARE Condition: IMPROVED Referrals: GAURAV DANG MD (PCP) Patient Instructions: Arterial Hypertension, Joint Sprain Additional Instructions: Follow-up he primary doctor in 2-3 days for reevaluation. Return to emergency department for any worsening symptoms. Scripts Hydrocodone/Apap 5-325 (NORCO 5-325 TABLET) 1 Each Tablet 1 TAB PO Q4-6HRS Y for PAIN, #20 TAB 0 Refills Prov: KALE IRVING MD 02/14/17 Problem Qualifiers KALE IRVING MD Feb 14, 2017 10:19
--- NOTE | 2017-02-14 10:47 | RAD ---
Left elbow, 3 views, 02/14/2017: History: Elbow pain No fracture or dislocation is identified. No joint effusion is evident. Surgical clips are present in the antecubital fossa. There is subcutaneous edema posteriorly at the elbow. IMPRESSION: No acute bony abnormality is detected.
[2017-02-14] MEDS ORDERED: HYDROcodone/APAP 5/325MG 1 TAB TABLET PO ONE (11:30)
[2017-02-14] MEDS ORDERED: HYDR-971 PO (11:35)
[2017-02-14 11:38] VITALS: BP 215/88
== END 2017-02-14 12:03 | disposition home or self-care (01) ==
LOC: ER 09:44
DX: M25.522 Pain in left elbow (principal); I13.2 Hypertensive heart and chronic kidney disease with heart failure and with stage 5 chronic kidney disease, or end stage renal disease; E11.22 Type 2 diabetes mellitus with diabetic chronic kidney disease; N18.6 End stage renal disease; I50.9 Heart failure, unspecified; Z99.2 Dependence on renal dialysis; J45.909 Unspecified asthma, uncomplicated; F10.20 Alcohol dependence, uncomplicated; Z90.710 Acquired absence of both cervix and uterus; Z88.5 Allergy status to narcotic agent; Z88.8 Allergy status to other drugs, medicaments and biological substances; Z91.041 Radiographic dye allergy status
CPT/HCPCS: 73080; 99284

== ENCOUNTER 2017-07-11 04:33 | Inpatient (IN) | payer OTHER ==
[2017-07-11 05:21] LABS: BASO # 0.1 x10^3/uL (0.0-0.2); BASO % 1 % (0-3); EOS % 0 % (0-3); HEMATOCRIT 38.2 % (36.0-47.0); HEMOGLOBIN 12.4 g/dL (12.0-15.5); LYMPH # 0.6 x10^3/uL (1.0-4.8); LYMPH % 5 % (24-48); MEAN CORPUSCULAR HEMOGLOBIN 29 pg (25-35); MEAN CORPUSCULAR HGB CONC 32 g/dL (31-37); MEAN CORPUSCULAR VOLUME 89 fL (79-100); MONO # 0.5 x10^3/uL (0.0-1.1); MONO % 4 % (0-9); NEUT # 11.1 x10^3uL (1.8-7.7); NEUT % 89 % (31-73); PLATELET COUNT 312 x10^3/uL (140-400); RED BLOOD COUNT 4.28 x10^6/uL (3.50-5.40); RED CELL DISTRIBUTION WIDTH 16.3 % (11.5-14.5); WHITE BLOOD COUNT 12.5 x10^3/uL (4.0-11.0)
[2017-07-11 05:34] LABS: ADD MAN DIFF? YES
[2017-07-11 05:40] LABS: ANION GAP 15 (6-14); BLOOD UREA NITROGEN 58 mg/dL (7-20); CALCIUM 9.9 mg/dL (8.5-10.1); CARBON DIOXIDE 24 mmol/L (21-32); CHLORIDE 100 mmol/L (98-107); CREATININE 7.3 mg/dL (0.6-1.0); GLUCOSE 166 mg/dL (70-99); POTASSIUM 5.1 mmol/L (3.5-5.1); SODIUM 139 mmol/L (136-145)
[2017-07-11 05:51] LABS: TROPONINI 0.527 ng/mL (0.000-0.055)
[2017-07-11] MEDS ORDERED: ACETAMINOPHEN 325 MG TABLET. PO (06:15)
[2017-07-11] MEDS: ASPIRIN CHEWABLE 81 MG TABLET. PO (06:22)
[2017-07-11] MEDS: cloNIDine HCL 0.1 MG TABLET PO ×2 (06:30→07:30)
[2017-07-11 06:58] LABS: INFLUENZA A PATIENT NEGATIVE (NEGATIVE); INFLUENZA B PATIENT NEGATIVE (NEGATIVE); OBC FLU VALID
[2017-07-11 07:23] LABS: % LYMPHS 7 % (24-48); % MONOS 9 % (0-10); % SEGS 84 % (35-66); ANISOCYTOSIS SLIGHT; PLT ESTIMATE ADEQUATE (ADEQUATE)
[2017-07-11] MEDS: HYDROcodone/APAP 7.5/325MG 1 TAB TABLET PO ×2 (07:29→16:46)
[2017-07-11 08:00] LABS: POC GLUCOSE 136 mg/dL (70-99)
[2017-07-11] MEDS ORDERED: NITROGLYCERIN SUBLINGUAL 0.4 MG BOTTLE OF 25. SL (08:00)
[2017-07-11] MEDS: LIPASE/PROTEAS/AMYLAS 10/34/55 CAPSULE.DR. PO ×3 (08:00→16:46)
[2017-07-11] MEDS ORDERED: diphenhydrAMINE HCL 25 MG CAPSULE PO (08:00)
[2017-07-11] MEDS: ASPIRIN ENTERIC COATED 81 MG TABLET.DR. PO (09:00)
[2017-07-11] MEDS: amLODIPine BESYLATE 10 MG TABLET PO (09:00)
[2017-07-11] MEDS: cloNIDine HCL 0.3 MG TABLET PO ×3 (09:00→22:31)
[2017-07-11] MEDS: FOLIC/VIT B COMP W-C (RENAL) TABLET. PO ×2 (09:00→09:28)
[2017-07-11] MEDS: ERGOCALCIFEROL (VITAMIN D2) 50,000 UNIT CAPSULE. PO (09:00)
[2017-07-11] MEDS: CALCIUM ACETATE 667 MG CAPSULE PO ×3 (09:28→16:46)
[2017-07-11] MEDS: POLYETHYLENE GLYCOL 3350 17 GM PACKET. PO (09:28)
[2017-07-11] MEDS: SERTRALINE 50 MG TABLET. PO (09:28)
[2017-07-11] MEDS: PANTOPRAZOLE 40 MG TABLET.DR. PO (09:28)
[2017-07-11] MEDS: CLOPIDOGREL BISULFATE 75 MG TABLET PO (09:28)
[2017-07-11] MEDS: ISOSORBIDE MONONITRATE ER 30 MG TAB.ER.24H PO (09:29)
[2017-07-11] MEDS: LOSARTAN POTASSIUM 50 MG TABLET. PO (09:33)
[2017-07-11] MEDS ORDERED: DEXTROSE 50% 25 GM / 50ML DISP.SYRIN. IV (09:45)
[2017-07-11] MEDS ORDERED: INSULIN ASPART 300 UNITS/3 ML INSULN.PEN SQ (11:30)
[2017-07-11 11:47] LABS: POC GLUCOSE 115 mg/dL (70-99)
[2017-07-11] MEDS: IPRATRPIUM/ALBUTEROL 0.5/2.5MG 3 ML NEBU. NEB ×4 (11:54→20:20)
[2017-07-11] MEDS: INSULIN ASPART 300 UNITS/3 ML INSULN.PEN SQ ×2 (12:00→17:00)
[2017-07-11] MEDS ORDERED: cefTRIAXone IV Push 1 GM VIAL. IVP (12:00)
[2017-07-11] MEDS: AZITHROMYCIN 500 MG in IV NORMAL SALINE 500ML BAG 500 ML IV (12:00)
[2017-07-11] MEDS: VANCOMYCIN 2 GM in IV DEXTROSE 5% 500 ML IV (13:53)
[2017-07-11] MEDS: PIPERACILLIN/TAZOBACTAM 2.25 GM in IV NORMAL SALINE 50ML 50 ML IV ×2 (13:53→22:29)
[2017-07-11] MEDS: VANCOMYCIN PER PHARMACY MC (14:41)
[2017-07-11] MEDS: ONDANSETRON PF 4 MG/2 ML VIAL. IV (14:53)
[2017-07-11] MEDS: HEPARIN for IV BOLUS 10,000 UNIT/10 ML VIAL. IV (15:04)
[2017-07-11] MEDS: HEPARIN 25,000UTS/500ML PREMIX 500 ML IV (15:06)
[2017-07-11 15:28] LABS: POC GLUCOSE 188 mg/dL (70-99)
[2017-07-11] MEDS: CARVEDILOL 12.5 MG TABLET. PO (16:46)
[2017-07-11 18:52] LABS: TROPONINI 8.951 ng/mL (0.000-0.055)
[2017-07-11] MEDS: INSULIN DETEMIR 300 UNITS/3 ML INSULN.PEN. SQ (21:00)
[2017-07-11 21:22] LABS: POC GLUCOSE 139 mg/dL (70-99)
[2017-07-11 21:44] LABS: UNFRACTIONATED HEPARIN TESTING 0.34 IU/mL (0.30-0.70)
[2017-07-11] MEDS: MONTELUKAST SODIUM 10 MG TABLET. PO (22:31)
[2017-07-11] MEDS: LACTOBACILLUS RHAMNOSUS GG 1 CAPSULE. PO (22:32)
[2017-07-11] MEDS: ATORVASTATIN CALCIUM 40 MG TABLET. PO (22:32)
[2017-07-11 23:08] LABS: MRSA BY PCR Positive (Negative)
[2017-07-12] MEDS: VANCOMYCIN RANDOM LEVEL. MC (05:30)
[2017-07-12 05:54] LABS: UNFRACTIONATED HEPARIN TESTING 0.63 IU/mL (0.30-0.70)
[2017-07-12] MEDS ORDERED: cefTRIAXone IV Push 1 GM VIAL. IVP (06:00)
[2017-07-12 06:05] LABS: ADD MAN DIFF? NO
[2017-07-12 06:18] LABS: BASO % 0 % (0-3); EOS # 0.5 x10^3/uL (0.0-0.7); EOS % 3 % (0-3); HEMATOCRIT 32.2 % (36.0-47.0); HEMOGLOBIN 10.3 g/dL (12.0-15.5); LYMPH # 0.6 x10^3/uL (1.0-4.8); LYMPH % 4 % (24-48); MEAN CORPUSCULAR HEMOGLOBIN 29 pg (25-35); MEAN CORPUSCULAR HGB CONC 32 g/dL (31-37); MEAN CORPUSCULAR VOLUME 90 fL (79-100); MONO # 0.6 x10^3/uL (0.0-1.1); MONO % 4 % (0-9); NEUT # 13.8 x10^3uL (1.8-7.7); NEUT % 89 % (31-73); PLATELET COUNT 215 x10^3/uL (140-400); RED BLOOD COUNT 3.58 x10^6/uL (3.50-5.40); RED CELL DISTRIBUTION WIDTH 16.8 % (11.5-14.5); WHITE BLOOD COUNT 15.5 x10^3/uL (4.0-11.0)
[2017-07-12] MEDS: PIPERACILLIN/TAZOBACTAM 2.25 GM in IV NORMAL SALINE 50ML 50 ML IV ×3 (06:19→21:43)
[2017-07-12 06:30] LABS: ALBUMIN 2.7 g/dL (3.4-5.0); ALBUMIN/GLOBULIN RATIO 0.8 (1.0-1.7); ALK PHOS 115 U/L (46-116); ALT (SGPT) 37 U/L (14-59); ANION GAP 14 (6-14); AST (SGOT) 52 U/L (15-37); BLOOD UREA NITROGEN 73 mg/dL (7-20); BUN/CREATININE RATIO 8 (6-20); CALCIUM 8.7 mg/dL (8.5-10.1); CARBON DIOXIDE 24 mmol/L (21-32); CHLORIDE 100 mmol/L (98-107); CREATININE 9.5 mg/dL (0.6-1.0); GFR 5.2; GLUCOSE 131 mg/dL (70-99); SODIUM 138 mmol/L (136-145); TOTAL BILIRUBIN 0.5 mg/dL (0.2-1.0); TOTAL PROTEIN 6.1 g/dL (6.4-8.2)
[2017-07-12 06:33] LABS: POTASSIUM 6.2 mmol/L (3.5-5.1)
[2017-07-12 07:27] LABS: POC GLUCOSE 112 mg/dL (70-99)
[2017-07-12] MEDS: IPRATRPIUM/ALBUTEROL 0.5/2.5MG 3 ML NEBU. NEB ×4 (07:34→19:35)
[2017-07-12] MEDS ORDERED: IV NORMAL SALINE 1000ML BAG 1,000 ML IV ×2 (07:53)
[2017-07-12] MEDS ORDERED: DIALYSIS PATIENT. MC (08:00)
[2017-07-12] MEDS: INSULIN ASPART 300 UNITS/3 ML INSULN.PEN SQ ×3 (08:00→17:00)
[2017-07-12] MEDS ORDERED: ALBUMIN HUMAN 25% 200 ML IV (08:00)
[2017-07-12] MEDS ORDERED: ACETAMINOPHEN 500 MG TABLET PO (08:00)
[2017-07-12] MEDS: LIPASE/PROTEAS/AMYLAS 10/34/55 CAPSULE.DR. PO ×3 (08:00→17:30)
[2017-07-12] MEDS ORDERED: diphenhydrAMINE 50 MG/ML VIAL IV ×2 (08:00)
[2017-07-12] MEDS ORDERED: ALBUTEROL SULFATE 2.5 MG/3 ML NEBU. NEB (08:30)
[2017-07-12] MEDS ORDERED: LIDOCAINE 1% PF 2 ML VIAL. ×2 (09:00→09:01)
[2017-07-12] MEDS: cloNIDine HCL 0.3 MG TABLET PO ×3 (09:00→21:31)
[2017-07-12] MEDS: ANTI-COAG MONITOR BY PHARMACY. MC (09:58)
[2017-07-12] MEDS: ACETAMINOPHEN 500 MG TABLET PO (10:29)
[2017-07-12] MEDS: CALCIUM ACETATE 667 MG CAPSULE PO ×3 (12:00→17:30)
[2017-07-12 12:53] LABS: TROPONINI 8.181 ng/mL (0.000-0.055)
[2017-07-12] MEDS: PANTOPRAZOLE 40 MG TABLET.DR. PO (14:45)
[2017-07-12] MEDS: FOLIC/VIT B COMP W-C (RENAL) TABLET. PO (14:46)
[2017-07-12] MEDS: SERTRALINE 50 MG TABLET. PO (14:46)
[2017-07-12] MEDS: CLOPIDOGREL BISULFATE 75 MG TABLET PO (14:48)
[2017-07-12] MEDS: LOSARTAN POTASSIUM 50 MG TABLET. PO (14:48)
[2017-07-12] MEDS: CARVEDILOL 12.5 MG TABLET. PO ×2 (14:49→17:00)
[2017-07-12] MEDS: ISOSORBIDE MONONITRATE ER 30 MG TAB.ER.24H PO (14:49)
[2017-07-12] MEDS: HYDROcodone/APAP 7.5/325MG 1 TAB TABLET PO ×2 (14:50→21:32)
[2017-07-12] MEDS: LACTOBACILLUS RHAMNOSUS GG 1 CAPSULE. PO ×2 (14:50→21:31)
[2017-07-12] MEDS: ASPIRIN ENTERIC COATED 81 MG TABLET.DR. PO (14:50)
[2017-07-12] MEDS: POLYETHYLENE GLYCOL 3350 17 GM PACKET. PO (14:52)
[2017-07-12 15:12] LABS: UNFRACTIONATED HEPARIN TESTING 0.63 IU/mL (0.30-0.70)
[2017-07-12] MEDS: VANCOMYCIN PER PHARMACY MC (15:33)
[2017-07-12 17:43] LABS: POC GLUCOSE 163 mg/dL (70-99)
[2017-07-12] MEDS: HEPARIN 25,000UTS/500ML PREMIX 500 ML IV (20:57)
[2017-07-12] MEDS: INSULIN DETEMIR 300 UNITS/3 ML INSULN.PEN. SQ (21:00)
[2017-07-12 21:14] LABS: POC GLUCOSE 132 mg/dL (70-99)
[2017-07-12 21:24] LABS: UNFRACTIONATED HEPARIN TESTING 0.34 IU/mL (0.30-0.70)
[2017-07-12] MEDS: MONTELUKAST SODIUM 10 MG TABLET. PO (21:31)
[2017-07-12] MEDS: ATORVASTATIN CALCIUM 40 MG TABLET. PO (21:31)
[2017-07-12] MEDS: ONDANSETRON ODT 4 MG TAB.RAPDIS. PO (21:43)
[2017-07-13 03:52] LABS: ADD MAN DIFF? NO
[2017-07-13 03:57] LABS: BASO % 0 % (0-3); EOS # 0.5 x10^3/uL (0.0-0.7); EOS % 7 % (0-3); HEMATOCRIT 29.5 % (36.0-47.0); HEMOGLOBIN 9.7 g/dL (12.0-15.5); LYMPH % 13 % (24-48); MEAN CORPUSCULAR HEMOGLOBIN 29 pg (25-35); MEAN CORPUSCULAR HGB CONC 33 g/dL (31-37); MEAN CORPUSCULAR VOLUME 89 fL (79-100); MONO # 0.4 x10^3/uL (0.0-1.1); MONO % 5 % (0-9); NEUT # 5.6 x10^3uL (1.8-7.7); NEUT % 75 % (31-73); PLATELET COUNT 169 x10^3/uL (140-400); RED BLOOD COUNT 3.31 x10^6/uL (3.50-5.40); RED CELL DISTRIBUTION WIDTH 16.7 % (11.5-14.5); WHITE BLOOD COUNT 7.5 x10^3/uL (4.0-11.0)
[2017-07-13 04:10] LABS: UNFRACTIONATED HEPARIN TESTING 0.26 IU/mL (0.30-0.70)
[2017-07-13 04:15] LABS: ANION GAP 8 (6-14); BLOOD UREA NITROGEN 44 mg/dL (7-20); CALCIUM 8.5 mg/dL (8.5-10.1); CARBON DIOXIDE 29 mmol/L (21-32); CHLORIDE 96 mmol/L (98-107); CHOLESTEROL 169 mg/dL (0-200); CREATININE 6.7 mg/dL (0.6-1.0); GFR 7.8; GLUCOSE 116 mg/dL (70-99); HDLC 86 mg/dL (40-60); LDLC 74 mg/dL (0-100); NON-HDL CHOLESTEROL 83 mg/dL (0-129); POTASSIUM 4.5 mmol/L (3.5-5.1); SODIUM 133 mmol/L (136-145); TRIGLYCERIDES 45 mg/dL (0-150); VLDLC 9 mg/dL (0-40)
[2017-07-13] MEDS: PIPERACILLIN/TAZOBACTAM 2.25 GM in IV NORMAL SALINE 50ML 50 ML IV ×3 (05:08→22:00)
[2017-07-13 07:33] LABS: POC GLUCOSE 101 mg/dL (70-99)
[2017-07-13] MEDS: IPRATRPIUM/ALBUTEROL 0.5/2.5MG 3 ML NEBU. NEB ×4 (07:40→19:47)
[2017-07-13] MEDS: INSULIN ASPART 300 UNITS/3 ML INSULN.PEN SQ ×3 (08:00→17:00)
[2017-07-13] MEDS: LIPASE/PROTEAS/AMYLAS 10/34/55 CAPSULE.DR. PO ×3 (08:00→18:09)
[2017-07-13] MEDS: CALCIUM ACETATE 667 MG CAPSULE PO ×3 (08:00→18:12)
[2017-07-13] MEDS: CARVEDILOL 12.5 MG TABLET. PO ×2 (08:46→18:09)
[2017-07-13] MEDS: LOSARTAN POTASSIUM 50 MG TABLET. PO (08:47)
[2017-07-13] MEDS: ASPIRIN ENTERIC COATED 81 MG TABLET.DR. PO (08:47)
[2017-07-13] MEDS: SERTRALINE 50 MG TABLET. PO (08:47)
[2017-07-13] MEDS: ISOSORBIDE MONONITRATE ER 30 MG TAB.ER.24H PO (08:47)
[2017-07-13] MEDS: cloNIDine HCL 0.3 MG TABLET PO ×3 (08:48→20:08)
[2017-07-13] MEDS ORDERED: fentaNYL PF VIAL 100 MCG/2 ML VIAL (09:40)
[2017-07-13] MEDS ORDERED: NITROGLYCERIN 200 MCG/2 ML SYRINGE FOR CATH/VASC LAB. (09:41)
[2017-07-13] MEDS ORDERED: MIDAZOLAM HCL/PF 2 MG/2 ML VIAL. (09:41)
[2017-07-13] MEDS ORDERED: HEPARIN for IV BOLUS 10,000 UNIT/10 ML VIAL. (09:41)
[2017-07-13] MEDS ORDERED: VERAPAMIL 5 MG/2 ML VIAL. (09:41)
[2017-07-13] MEDS ORDERED: IODIXANOL 320 MG/ML 100 ML VIAL. (10:02)
[2017-07-13] MEDS ORDERED: LIDOCAINE 2% 20 ML VIAL. (10:02)
[2017-07-13] MEDS: NITROGLYCERIN 200 MCG/2 ML SYRINGE FOR CATH/VASC LAB. IART (10:16)
[2017-07-13] MEDS: fentaNYL PF VIAL 100 MCG/2 ML VIAL IV (10:16)
[2017-07-13] MEDS: VERAPAMIL 5 MG/2 ML VIAL. IART (10:16)
[2017-07-13] MEDS: MIDAZOLAM HCL/PF 2 MG/2 ML VIAL. IV (10:16)
[2017-07-13] MEDS: LIDOCAINE 2% 20 ML VIAL. IJ (10:16)
[2017-07-13] MEDS: HEPARIN for IV BOLUS 10,000 UNIT/10 ML VIAL. IART (10:17)
[2017-07-13] MEDS: IODIXANOL 320 MG/ML 100 ML VIAL. IART (10:28)
[2017-07-13] MEDS: cloNIDine HCL 0.2 MG TABLET PO (11:24)
[2017-07-13] MEDS: PANTOPRAZOLE 40 MG TABLET.DR. PO (11:25)
[2017-07-13] MEDS: FOLIC/VIT B COMP W-C (RENAL) TABLET. PO (11:25)
[2017-07-13] MEDS: POLYETHYLENE GLYCOL 3350 17 GM PACKET. PO (11:25)
[2017-07-13] MEDS: LACTOBACILLUS RHAMNOSUS GG 1 CAPSULE. PO ×2 (11:25→20:07)
[2017-07-13] MEDS: HYDROcodone/APAP 7.5/325MG 1 TAB TABLET PO ×2 (11:26→19:29)
[2017-07-13] MEDS: IV 1/2 NORMAL SALINE 1,000 ML IV (11:28)
[2017-07-13] MEDS: CLOPIDOGREL BISULFATE 75 MG TABLET PO (12:37)
[2017-07-13 12:41] LABS: POC GLUCOSE 107 mg/dL (70-99)
[2017-07-13] MEDS: VANCOMYCIN PER PHARMACY MC (13:09)
[2017-07-13] MEDS ORDERED: IV NORMAL SALINE 1000ML BAG 1,000 ML IV (14:14)
[2017-07-13] MEDS ORDERED: ALBUMIN HUMAN 25% 200 ML IV (14:15)
[2017-07-13] MEDS ORDERED: DIALYSIS PATIENT. MC (14:15)
[2017-07-13 18:06] LABS: POC GLUCOSE 112 mg/dL (70-99)
[2017-07-13] MEDS: ATORVASTATIN CALCIUM 40 MG TABLET. PO (20:07)
[2017-07-13] MEDS: MONTELUKAST SODIUM 10 MG TABLET. PO (20:07)
[2017-07-13 20:16] LABS: POC GLUCOSE 138 mg/dL (70-99)
[2017-07-13] MEDS: INSULIN DETEMIR 300 UNITS/3 ML INSULN.PEN. SQ (20:18)
[2017-07-14 00:07] LABS: POC GLUCOSE 117 mg/dL (70-99)
[2017-07-14] MEDS: ACETAMINOPHEN 500 MG TABLET PO (00:08)
[2017-07-14] MEDS: IV 1/2 NORMAL SALINE 1,000 ML IV ×2 (03:22→20:02)
[2017-07-14 05:15] LABS: ADD MAN DIFF? NO
[2017-07-14 05:58] LABS: ANION GAP 9 (6-14); BLOOD UREA NITROGEN 33 mg/dL (7-20); CALCIUM 8.5 mg/dL (8.5-10.1); CARBON DIOXIDE 30 mmol/L (21-32); CHLORIDE 98 mmol/L (98-107); CREATININE 5.5 mg/dL (0.6-1.0); GFR 9.7; GLUCOSE 118 mg/dL (70-99); POTASSIUM 4.3 mmol/L (3.5-5.1); SODIUM 137 mmol/L (136-145)
[2017-07-14 06:09] LABS: BASO % 0 % (0-3); EOS # 0.3 x10^3/uL (0.0-0.7); EOS % 4 % (0-3); HEMATOCRIT 29.9 % (36.0-47.0); HEMOGLOBIN 9.6 g/dL (12.0-15.5); LYMPH # 0.4 x10^3/uL (1.0-4.8); LYMPH % 6 % (24-48); MEAN CORPUSCULAR HEMOGLOBIN 29 pg (25-35); MEAN CORPUSCULAR HGB CONC 32 g/dL (31-37); MEAN CORPUSCULAR VOLUME 89 fL (79-100); MONO # 0.4 x10^3/uL (0.0-1.1); MONO % 5 % (0-9); NEUT # 6.1 x10^3uL (1.8-7.7); NEUT % 86 % (31-73); PLATELET COUNT 151 x10^3/uL (140-400); RED BLOOD COUNT 3.35 x10^6/uL (3.50-5.40); RED CELL DISTRIBUTION WIDTH 16.2 % (11.5-14.5); WHITE BLOOD COUNT 7.1 x10^3/uL (4.0-11.0)
[2017-07-14] MEDS: PIPERACILLIN/TAZOBACTAM 2.25 GM in IV NORMAL SALINE 50ML 50 ML IV ×3 (06:18→21:10)
[2017-07-14] MEDS: HYDROcodone/APAP 7.5/325MG 1 TAB TABLET PO (06:20)
[2017-07-14] MEDS: ONDANSETRON ODT 4 MG TAB.RAPDIS. PO (06:39)
[2017-07-14] MEDS: hydrALAZINE 20 MG/ML VIAL. IVP ×2 (07:05→23:55)
[2017-07-14] MEDS: PANTOPRAZOLE 40 MG TABLET.DR. PO (07:30)
[2017-07-14] MEDS: POLYETHYLENE GLYCOL 3350 17 GM PACKET. PO (07:41)
[2017-07-14] MEDS: INSULIN ASPART 300 UNITS/3 ML INSULN.PEN SQ ×3 (08:00→17:00)
[2017-07-14] MEDS: CALCIUM ACETATE 667 MG CAPSULE PO ×3 (08:00→17:43)
[2017-07-14] MEDS: LIPASE/PROTEAS/AMYLAS 10/34/55 CAPSULE.DR. PO ×3 (08:00→17:43)
[2017-07-14] MEDS: CARVEDILOL 12.5 MG TABLET. PO ×2 (08:00→17:44)
[2017-07-14] MEDS: FOLIC/VIT B COMP W-C (RENAL) TABLET. PO (09:00)
[2017-07-14] MEDS: LACTOBACILLUS RHAMNOSUS GG 1 CAPSULE. PO ×2 (09:00→21:04)
[2017-07-14] MEDS: cloNIDine HCL 0.3 MG TABLET PO (09:00)
[2017-07-14] MEDS: SERTRALINE 50 MG TABLET. PO (09:00)
[2017-07-14] MEDS: ERGOCALCIFEROL (VITAMIN D2) 50,000 UNIT CAPSULE. PO (09:00)
[2017-07-14] MEDS: LOSARTAN POTASSIUM 50 MG TABLET. PO (09:00)
[2017-07-14] MEDS: ASPIRIN ENTERIC COATED 81 MG TABLET.DR. PO (09:00)
[2017-07-14] MEDS: ISOSORBIDE MONONITRATE ER 30 MG TAB.ER.24H PO (09:00)
[2017-07-14] MEDS: IPRATRPIUM/ALBUTEROL 0.5/2.5MG 3 ML NEBU. NEB ×4 (09:31→20:05)
[2017-07-14] MEDS: fentaNYL PF VIAL 100 MCG/2 ML VIAL IV (09:40)
[2017-07-14] MEDS: PANTOPRAZOLE IV PUSH 40 MG VIAL. IVP (09:40)
[2017-07-14] MEDS: CLOPIDOGREL BISULFATE 75 MG TABLET PO (09:41)
[2017-07-14] MEDS: cloNIDine TTS-3 1 PATCH PATCH.TDWK TD (10:20)
[2017-07-14] MEDS ORDERED: LIDOCAINE WITH 8.4% SOD BICARB 3 ML DISP.SYRIN. ×2 (11:14→13:39)
[2017-07-14] MEDS: LIDOCAINE WITH 8.4% SOD BICARB 3 ML DISP.SYRIN. INJ (11:15)
[2017-07-14 13:31] LABS: POC GLUCOSE 118 mg/dL (70-99)
[2017-07-14] MEDS: VANCOMYCIN PER PHARMACY MC (15:13)
[2017-07-14 17:52] LABS: POC GLUCOSE 127 mg/dL (70-99)
[2017-07-14] MEDS: INSULIN DETEMIR 300 UNITS/3 ML INSULN.PEN. SQ (21:00)
[2017-07-14] MEDS: MONTELUKAST SODIUM 10 MG TABLET. PO (21:04)
[2017-07-14] MEDS: ATORVASTATIN CALCIUM 40 MG TABLET. PO (21:04)
[2017-07-14 21:15] LABS: POC GLUCOSE 140 mg/dL (70-99)
[2017-07-15] MEDS: ACETAMINOPHEN 325 MG TABLET. PO ×2 (02:17→02:25)
[2017-07-15] MEDS: ONDANSETRON PF 4 MG/2 ML VIAL. IV ×2 (02:25→09:15)
[2017-07-15] MEDS: PROCHLORPERAZINE 10 MG/2 ML VIAL. IV ×3 (04:07→20:56)
[2017-07-15] MEDS: hydrALAZINE 20 MG/ML VIAL. IVP (04:08)
[2017-07-15] MEDS: VANCOMYCIN RANDOM LEVEL. MC (05:00)
[2017-07-15] MEDS: PIPERACILLIN/TAZOBACTAM 2.25 GM in IV NORMAL SALINE 50ML 50 ML IV (05:17)
[2017-07-15 05:29] LABS: ADD MAN DIFF? NO
[2017-07-15 05:46] LABS: BASO % 0 % (0-3); EOS # 0.1 x10^3/uL (0.0-0.7); EOS % 2 % (0-3); HEMATOCRIT 29.5 % (36.0-47.0); HEMOGLOBIN 9.6 g/dL (12.0-15.5); LYMPH # 0.3 x10^3/uL (1.0-4.8); LYMPH % 4 % (24-48); MEAN CORPUSCULAR HEMOGLOBIN 29 pg (25-35); MEAN CORPUSCULAR HGB CONC 33 g/dL (31-37); MEAN CORPUSCULAR VOLUME 89 fL (79-100); MONO # 0.5 x10^3/uL (0.0-1.1); MONO % 6 % (0-9); NEUT # 6.8 x10^3uL (1.8-7.7); NEUT % 88 % (31-73); PLATELET COUNT 147 x10^3/uL (140-400); RED BLOOD COUNT 3.32 x10^6/uL (3.50-5.40); RED CELL DISTRIBUTION WIDTH 16.2 % (11.5-14.5); WHITE BLOOD COUNT 7.7 x10^3/uL (4.0-11.0)
[2017-07-15] MEDS ORDERED: VANCOMYCIN PER PHARMACY MC (06:00)
[2017-07-15 06:06] LABS: ANION GAP 15 (6-14); BLOOD UREA NITROGEN 48 mg/dL (7-20); CALCIUM 8.3 mg/dL (8.5-10.1); CARBON DIOXIDE 25 mmol/L (21-32); CHLORIDE 95 mmol/L (98-107); CREATININE 7.6 mg/dL (0.6-1.0); GFR 6.7; GLUCOSE 120 mg/dL (70-99); SODIUM 135 mmol/L (136-145)
[2017-07-15] MEDS ORDERED: IV NORMAL SALINE 1000ML BAG 1,000 ML IV ×2 (07:52)
[2017-07-15] MEDS ORDERED: DIALYSIS PATIENT. MC (08:00)
[2017-07-15] MEDS ORDERED: diphenhydrAMINE 50 MG/ML VIAL IV ×2 (08:00)
[2017-07-15] MEDS: IPRATRPIUM/ALBUTEROL 0.5/2.5MG 3 ML NEBU. NEB ×4 (08:00→19:41)
[2017-07-15] MEDS ORDERED: ACETAMINOPHEN 500 MG TABLET PO (08:00)
[2017-07-15] MEDS: LIPASE/PROTEAS/AMYLAS 10/34/55 CAPSULE.DR. PO ×3 (08:00→16:17)
[2017-07-15] MEDS: CALCIUM ACETATE 667 MG CAPSULE PO ×3 (08:00→16:18)
[2017-07-15] MEDS: INSULIN ASPART 300 UNITS/3 ML INSULN.PEN SQ ×3 (08:00→16:23)
[2017-07-15] MEDS: POLYETHYLENE GLYCOL 3350 17 GM PACKET. PO (09:00)
[2017-07-15] MEDS: LACTOBACILLUS RHAMNOSUS GG 1 CAPSULE. PO ×2 (09:00→20:52)
[2017-07-15] MEDS: FOLIC/VIT B COMP W-C (RENAL) TABLET. PO (09:00)
[2017-07-15] MEDS: LIDOCAINE 1% PF 2 ML VIAL. ID (09:06)
[2017-07-15] MEDS: cloNIDine TTS-3 1 PATCH PATCH.TDWK TD (09:38)
[2017-07-15] MEDS: LOSARTAN POTASSIUM 50 MG TABLET. PO (09:53)
[2017-07-15] MEDS: ISOSORBIDE MONONITRATE ER 30 MG TAB.ER.24H PO ×2 (09:53→16:18)
[2017-07-15 10:02] LABS: LIPASE 53 U/L (73-393)
[2017-07-15 10:12] LABS: TROPONINI 2.605 ng/mL (0.000-0.055)
[2017-07-15 11:18] LABS: POC GLUCOSE 87 mg/dL (70-99)
[2017-07-15] MEDS: IV 1/2 NORMAL SALINE 1,000 ML IV (11:21)
[2017-07-15] MEDS: CLOPIDOGREL BISULFATE 75 MG TABLET PO (13:21)
[2017-07-15] MEDS: SERTRALINE 50 MG TABLET. PO (13:22)
[2017-07-15] MEDS: PANTOPRAZOLE 40 MG TABLET.DR. PO (13:22)
[2017-07-15] MEDS: ASPIRIN ENTERIC COATED 81 MG TABLET.DR. PO (13:22)
[2017-07-15] MEDS: CARVEDILOL 12.5 MG TABLET. PO ×2 (13:23→18:51)
[2017-07-15] MEDS ORDERED: LIDOCAINE WITH 8.4% SOD BICARB 3 ML DISP.SYRIN. (13:49)
[2017-07-15] MEDS: LIDOCAINE WITH 8.4% SOD BICARB 3 ML DISP.SYRIN. INJ (14:02)
[2017-07-15] MEDS: METOCLOPRAMIDE HCL 10 MG/2 ML VIAL. IV (16:18)
[2017-07-15 16:26] LABS: POC GLUCOSE 100 mg/dL (70-99)
[2017-07-15] MEDS: MONTELUKAST SODIUM 10 MG TABLET. PO (20:52)
[2017-07-15] MEDS: ATORVASTATIN CALCIUM 40 MG TABLET. PO (20:54)
[2017-07-15] MEDS: INSULIN DETEMIR 300 UNITS/3 ML INSULN.PEN. SQ (21:00)
[2017-07-15 21:05] LABS: POC GLUCOSE 89 mg/dL (70-99)
[2017-07-15 22:16] LABS: HCV ANTIBODY <0.1 s/co ratio (0.0-0.9); HEP A IGM ABDY Negative (Negative); HEP B SURFACE AG Negative (Negative)
[2017-07-16] MEDS: hydrALAZINE 20 MG/ML VIAL. IVP ×4 (00:07→19:56)
[2017-07-16] MEDS: METOCLOPRAMIDE HCL 10 MG/2 ML VIAL. IV ×2 (03:33→15:22)
[2017-07-16 05:51] LABS: ADD MAN DIFF? NO
[2017-07-16 06:03] LABS: BASO % 1 % (0-3); EOS # 0.1 x10^3/uL (0.0-0.7); EOS % 1 % (0-3); HEMATOCRIT 27.9 % (36.0-47.0); HEMOGLOBIN 9.3 g/dL (12.0-15.5); LYMPH # 0.4 x10^3/uL (1.0-4.8); LYMPH % 7 % (24-48); MEAN CORPUSCULAR HEMOGLOBIN 30 pg (25-35); MEAN CORPUSCULAR HGB CONC 33 g/dL (31-37); MEAN CORPUSCULAR VOLUME 89 fL (79-100); MONO # 0.5 x10^3/uL (0.0-1.1); MONO % 8 % (0-9); NEUT # 5.3 x10^3uL (1.8-7.7); NEUT % 84 % (31-73); PLATELET COUNT 158 x10^3/uL (140-400); RED BLOOD COUNT 3.14 x10^6/uL (3.50-5.40); RED CELL DISTRIBUTION WIDTH 16.3 % (11.5-14.5); WHITE BLOOD COUNT 6.3 x10^3/uL (4.0-11.0)
[2017-07-16 06:21] LABS: ANION GAP 13 (6-14); BLOOD UREA NITROGEN 24 mg/dL (7-20); CALCIUM 8.5 mg/dL (8.5-10.1); CARBON DIOXIDE 28 mmol/L (21-32); CHLORIDE 99 mmol/L (98-107); CREATININE 5.3 mg/dL (0.6-1.0); GFR 10.2; GLUCOSE 84 mg/dL (70-99); POTASSIUM 3.8 mmol/L (3.5-5.1); SODIUM 140 mmol/L (136-145)
[2017-07-16 06:50] LABS: POC GLUCOSE 76 mg/dL (70-99)
[2017-07-16] MEDS: IPRATRPIUM/ALBUTEROL 0.5/2.5MG 3 ML NEBU. NEB ×4 (07:35→20:00)
[2017-07-16] MEDS: INSULIN ASPART 300 UNITS/3 ML INSULN.PEN SQ ×3 (08:00→17:00)
[2017-07-16] MEDS: CALCIUM ACETATE 667 MG CAPSULE PO ×3 (08:34→16:24)
[2017-07-16] MEDS: CLOPIDOGREL BISULFATE 75 MG TABLET PO (08:34)
[2017-07-16] MEDS: CARVEDILOL 12.5 MG TABLET. PO ×2 (08:34→16:25)
[2017-07-16] MEDS: LOSARTAN POTASSIUM 50 MG TABLET. PO (08:35)
[2017-07-16] MEDS: LACTOBACILLUS RHAMNOSUS GG 1 CAPSULE. PO ×2 (08:35→20:32)
[2017-07-16] MEDS: ASPIRIN ENTERIC COATED 81 MG TABLET.DR. PO (08:35)
[2017-07-16] MEDS: LIPASE/PROTEAS/AMYLAS 10/34/55 CAPSULE.DR. PO ×3 (08:35→16:24)
[2017-07-16] MEDS: FOLIC/VIT B COMP W-C (RENAL) TABLET. PO (08:36)
[2017-07-16] MEDS: SERTRALINE 50 MG TABLET. PO (08:36)
[2017-07-16] MEDS: ISOSORBIDE MONONITRATE ER 30 MG TAB.ER.24H PO (08:36)
[2017-07-16 08:44] LABS: POC GLUCOSE 117 mg/dL (70-99)
[2017-07-16] MEDS: PANTOPRAZOLE 40 MG TABLET.DR. PO (08:45)
[2017-07-16] MEDS: POLYETHYLENE GLYCOL 3350 17 GM PACKET. PO (08:45)
[2017-07-16] MEDS: LABETALOL 20 MG/4 ML DISP.SYRIN. IVP (12:21)
[2017-07-16 12:28] LABS: POC GLUCOSE 140 mg/dL (70-99)
[2017-07-16] MEDS ORDERED: amLODIPine BESYLATE 10 MG TABLET PO (16:00)
[2017-07-16] MEDS: amLODIPine BESYLATE 10 MG TABLET PO (16:22)
[2017-07-16 17:39] LABS: POC GLUCOSE 120 mg/dL (70-99)
[2017-07-16] MEDS: ATORVASTATIN CALCIUM 40 MG TABLET. PO (20:32)
[2017-07-16] MEDS: MONTELUKAST SODIUM 10 MG TABLET. PO (20:32)
[2017-07-16] MEDS: ONDANSETRON PF 4 MG/2 ML VIAL. IV (20:33)
[2017-07-16] MEDS: PROCHLORPERAZINE 10 MG/2 ML VIAL. IV (21:16)
[2017-07-16] MEDS: INSULIN DETEMIR 300 UNITS/3 ML INSULN.PEN. SQ (21:19)
[2017-07-17] MEDS: hydrALAZINE 20 MG/ML VIAL. IVP ×3 (00:03→18:17)
[2017-07-17] MEDS: METOCLOPRAMIDE HCL 10 MG/2 ML VIAL. IV ×2 (00:05→08:26)
[2017-07-17] MEDS: PROCHLORPERAZINE 10 MG/2 ML VIAL. IV ×2 (04:30→19:32)
[2017-07-17] MEDS: PANTOPRAZOLE 40 MG TABLET.DR. PO (07:30)
[2017-07-17] MEDS: INSULIN ASPART 300 UNITS/3 ML INSULN.PEN SQ ×3 (08:00→17:00)
[2017-07-17] MEDS: IPRATRPIUM/ALBUTEROL 0.5/2.5MG 3 ML NEBU. NEB ×4 (08:04→19:21)
[2017-07-17] MEDS: CLOPIDOGREL BISULFATE 75 MG TABLET PO (08:16)
[2017-07-17] MEDS: CALCIUM ACETATE 667 MG CAPSULE PO ×3 (08:16→17:00)
[2017-07-17] MEDS: LACTOBACILLUS RHAMNOSUS GG 1 CAPSULE. PO ×2 (08:16→20:27)
[2017-07-17] MEDS: LIPASE/PROTEAS/AMYLAS 10/34/55 CAPSULE.DR. PO ×3 (08:16→17:00)
[2017-07-17] MEDS: CARVEDILOL 12.5 MG TABLET. PO ×2 (08:17→17:00)
[2017-07-17] MEDS: LOSARTAN POTASSIUM 50 MG TABLET. PO (08:18)
[2017-07-17] MEDS: SERTRALINE 50 MG TABLET. PO (08:19)
[2017-07-17] MEDS: ASPIRIN ENTERIC COATED 81 MG TABLET.DR. PO (08:19)
[2017-07-17] MEDS: ISOSORBIDE MONONITRATE ER 30 MG TAB.ER.24H PO (08:20)
[2017-07-17] MEDS: POLYETHYLENE GLYCOL 3350 17 GM PACKET. PO (08:20)
[2017-07-17] MEDS: amLODIPine BESYLATE 10 MG TABLET PO (08:21)
[2017-07-17] MEDS: PANTOPRAZOLE IV PUSH 40 MG VIAL. IVP ×2 (08:22→08:26)
[2017-07-17] MEDS: FOLIC/VIT B COMP W-C (RENAL) TABLET. PO (09:00)
[2017-07-17] MEDS: MINOXIDIL 2.5 MG TABLET PO (14:04)
[2017-07-17] MEDS ORDERED: LABETALOL 20 MG/4 ML DISP.SYRIN. IVP (16:45)
[2017-07-17] MEDS ORDERED: cloNIDine HCL 0.1 MG TABLET PO (16:45)
[2017-07-17] MEDS ORDERED: DIALYSIS PATIENT. MC (16:45)
[2017-07-17] MEDS ORDERED: ACETAMINOPHEN 500 MG TABLET PO (16:45)
[2017-07-17] MEDS ORDERED: ALBUMIN HUMAN 25% 200 ML IV (16:45)
[2017-07-17] MEDS ORDERED: diphenhydrAMINE 50 MG/ML VIAL IV ×2 (16:45)
[2017-07-17] MEDS ORDERED: IV NORMAL SALINE 1000ML BAG 1,000 ML IV ×2 (17:00)
[2017-07-17 18:20] LABS: POC GLUCOSE 95 mg/dL (70-99)
[2017-07-17] MEDS: fentaNYL PF VIAL 100 MCG/2 ML VIAL IV (19:33)
[2017-07-17] MEDS: HYDROcodone/APAP 7.5/325MG 1 TAB TABLET PO (20:28)
[2017-07-17] MEDS: MONTELUKAST SODIUM 10 MG TABLET. PO (20:28)
[2017-07-17] MEDS: ATORVASTATIN CALCIUM 40 MG TABLET. PO (20:29)
[2017-07-17] MEDS: INSULIN DETEMIR 300 UNITS/3 ML INSULN.PEN. SQ (21:00)
[2017-07-17 22:14] LABS: POC GLUCOSE 127 mg/dL (70-99)
[2017-07-18] MEDS: hydrALAZINE 20 MG/ML VIAL. IVP (02:47)
[2017-07-18] MEDS: IPRATRPIUM/ALBUTEROL 0.5/2.5MG 3 ML NEBU. NEB (08:00)
[2017-07-18] MEDS: INSULIN ASPART 300 UNITS/3 ML INSULN.PEN SQ ×3 (08:00→17:34)
[2017-07-18 08:59] LABS: POC GLUCOSE 119 mg/dL (70-99)
[2017-07-18] MEDS: LIPASE/PROTEAS/AMYLAS 10/34/55 CAPSULE.DR. PO ×3 (09:25→17:28)
[2017-07-18] MEDS: CLOPIDOGREL BISULFATE 75 MG TABLET PO (09:26)
[2017-07-18] MEDS: ISOSORBIDE MONONITRATE ER 30 MG TAB.ER.24H PO (09:26)
[2017-07-18] MEDS: POLYETHYLENE GLYCOL 3350 17 GM PACKET. PO (09:26)
[2017-07-18] MEDS: MINOXIDIL 2.5 MG TABLET PO ×2 (09:26→21:05)
[2017-07-18] MEDS: amLODIPine BESYLATE 10 MG TABLET PO (09:27)
[2017-07-18] MEDS: ASPIRIN ENTERIC COATED 81 MG TABLET.DR. PO (09:27)
[2017-07-18] MEDS: CALCIUM ACETATE 667 MG CAPSULE PO ×3 (09:27→17:29)
[2017-07-18] MEDS: LACTOBACILLUS RHAMNOSUS GG 1 CAPSULE. PO ×2 (09:27→21:04)
[2017-07-18] MEDS: SERTRALINE 50 MG TABLET. PO (09:27)
[2017-07-18] MEDS: LOSARTAN POTASSIUM 50 MG TABLET. PO (09:27)
[2017-07-18] MEDS: FOLIC/VIT B COMP W-C (RENAL) TABLET. PO (09:27)
[2017-07-18] MEDS: PANTOPRAZOLE 40 MG TABLET.DR. PO (09:27)
[2017-07-18] MEDS: MONTELUKAST SODIUM 10 MG TABLET. PO ×2 (09:28→21:04)
[2017-07-18] MEDS: CARVEDILOL 12.5 MG TABLET. PO ×2 (09:28→17:29)
[2017-07-18 09:31] LABS: POC GLUCOSE 170 mg/dL (70-99)
[2017-07-18 11:48] LABS: POC GLUCOSE 178 mg/dL (70-99)
[2017-07-18] MEDS: cloNIDine HCL 0.1 MG TABLET PO (12:55)
[2017-07-18] MEDS: ONDANSETRON PF 4 MG/2 ML VIAL. IV (12:55)
[2017-07-18 17:14] LABS: POC GLUCOSE 185 mg/dL (70-99)
[2017-07-18] MEDS: METOCLOPRAMIDE HCL 10 MG/2 ML VIAL. IV (20:03)
[2017-07-18 20:27] LABS: POC GLUCOSE 172 mg/dL (70-99)
[2017-07-18] MEDS: ATORVASTATIN CALCIUM 40 MG TABLET. PO (21:04)
[2017-07-18] MEDS: cloNIDine HCL 0.2 MG TABLET PO (21:04)
[2017-07-18] MEDS: INSULIN DETEMIR 300 UNITS/3 ML INSULN.PEN. SQ (21:06)
[2017-07-18] MEDS: HYDROcodone/APAP 7.5/325MG 1 TAB TABLET PO (21:07)
[2017-07-19] MEDS: HYDROcodone/APAP 7.5/325MG 1 TAB TABLET PO (05:10)
[2017-07-19 07:58] LABS: POC GLUCOSE 105 mg/dL (70-99)
[2017-07-19] MEDS: INSULIN ASPART 300 UNITS/3 ML INSULN.PEN SQ (08:00)
[2017-07-19] MEDS: LACTOBACILLUS RHAMNOSUS GG 1 CAPSULE. PO (08:58)
[2017-07-19] MEDS: CARVEDILOL 12.5 MG TABLET. PO (08:58)
[2017-07-19] MEDS: CLOPIDOGREL BISULFATE 75 MG TABLET PO (08:58)
[2017-07-19] MEDS: FOLIC/VIT B COMP W-C (RENAL) TABLET. PO (08:58)
[2017-07-19] MEDS: CALCIUM ACETATE 667 MG CAPSULE PO (08:59)
[2017-07-19] MEDS: ISOSORBIDE MONONITRATE ER 30 MG TAB.ER.24H PO (08:59)
[2017-07-19] MEDS: LIPASE/PROTEAS/AMYLAS 10/34/55 CAPSULE.DR. PO (08:59)
[2017-07-19] MEDS: POLYETHYLENE GLYCOL 3350 17 GM PACKET. PO (09:00)
[2017-07-19] MEDS: LOSARTAN POTASSIUM 50 MG TABLET. PO (09:00)
[2017-07-19] MEDS: SERTRALINE 50 MG TABLET. PO (09:00)
[2017-07-19] MEDS: PANTOPRAZOLE 40 MG TABLET.DR. PO (09:00)
[2017-07-19] MEDS: ASPIRIN ENTERIC COATED 81 MG TABLET.DR. PO (09:01)
[2017-07-19] MEDS: MINOXIDIL 2.5 MG TABLET PO (09:01)
[2017-07-19] MEDS: amLODIPine BESYLATE 10 MG TABLET PO (10:26)
[2017-07-19] MEDS: cloNIDine HCL 0.2 MG TABLET PO (10:27)
[2017-07-20 04:58] LABS: POC GLUCOSE 149 mg/dL (70-99)
== END 2017-07-19 11:45 | disposition home or self-care (01) | DRG 871 ==
LOC: 2 SOUTH 07-17 21:30 → 1 WEST ICU 07-13 17:21 → ER 04:33 → 2 NORTH 06:09
PROC: 5A1D70Z Performance of Urinary Filtration, Intermittent, Less than 6 Hours Per Day (ICD-10-PCS; 2017-07-12)
PROC: 4A023N7 Measurement of Cardiac Sampling and Pressure, Left Heart, Percutaneous Approach (ICD-10-PCS; 2017-07-13)
PROC: B2151ZZ Fluoroscopy of Left Heart using Low Osmolar Contrast (ICD-10-PCS; 2017-07-13)
PROC: B2111ZZ Fluoroscopy of Multiple Coronary Arteries using Low Osmolar Contrast (ICD-10-PCS; 2017-07-13)
PROC: 5A1D70Z Performance of Urinary Filtration, Intermittent, Less than 6 Hours Per Day (ICD-10-PCS; 2017-07-13)
PROC: 02HV33Z Insertion of Infusion Device into Superior Vena Cava, Percutaneous Approach (ICD-10-PCS; principal; 2017-07-15)
PROC: B548ZZA Ultrasonography of Superior Vena Cava, Guidance (ICD-10-PCS; 2017-07-15)
PROC: 5A1D70Z Performance of Urinary Filtration, Intermittent, Less than 6 Hours Per Day (ICD-10-PCS; 2017-07-15)
PROC: 5A1D70Z Performance of Urinary Filtration, Intermittent, Less than 6 Hours Per Day (ICD-10-PCS; 2017-07-17)
DX: A41.89 Other specified sepsis (principal); J18.9 Pneumonia, unspecified organism; I21.4 Non-ST elevation (NSTEMI) myocardial infarction; J96.01 Acute respiratory failure with hypoxia; I13.2 Hypertensive heart and chronic kidney disease with heart failure and with stage 5 chronic kidney disease, or end stage renal disease; K31.84 Gastroparesis; E11.43 Type 2 diabetes mellitus with diabetic autonomic (poly)neuropathy; E87.5 Hyperkalemia; E11.22 Type 2 diabetes mellitus with diabetic chronic kidney disease; N18.6 End stage renal disease; I50.33 Acute on chronic diastolic (congestive) heart failure; I69.354 Hemiplegia and hemiparesis following cerebral infarction affecting left non-dominant side; J44.0 Chronic obstructive pulmonary disease with (acute) lower respiratory infection; N25.81 Secondary hyperparathyroidism of renal origin; D63.1 Anemia in chronic kidney disease; E03.9 Hypothyroidism, unspecified; E66.9 Obesity, unspecified; Z88.8 Allergy status to other drugs, medicaments and biological substances; E78.5 Hyperlipidemia, unspecified; F32.9 Major depressive disorder, single episode, unspecified; I16.0 Hypertensive urgency; I25.10 Atherosclerotic heart disease of native coronary artery without angina pectoris; I27.29 Other secondary pulmonary hypertension; K21.9 Gastro-esophageal reflux disease without esophagitis; K76.0 Fatty (change of) liver, not elsewhere classified; Y95 Nosocomial condition; Z82.49 Family history of ischemic heart disease and other diseases of the circulatory system; Z83.3 Family history of diabetes mellitus; Z86.14 Personal history of Methicillin resistant Staphylococcus aureus infection; Z87.891 Personal history of nicotine dependence; Z90.49 Acquired absence of other specified parts of digestive tract; Z90.710 Acquired absence of both cervix and uterus; Z99.2 Dependence on renal dialysis
CPT/HCPCS: 36415; 36556; 70450; 71045; 71046; 74018; 76937; 78582; 80048; 80053; 80061; 80074; 80202; 82962; 83690; 84484; 85007; 85025; 85520; 87641; 87804; 87804-59; 93005; 93306; 93458; 94640; 94760; 96374; 99152; 99153; 99285; 99285-25; A9540; A9558; C1769; C1892; C1894; C9113; J0360; J0690; J0780; J1644; J1815; J2250; J2405; J2543; J2765; J3010; J3370; J3490; J7050; J7620; Q0162

== ENCOUNTER 2017-09-07 11:40 | Emergency (ER) | payer OTHER ==
[2017-09-07] MEDS: fentaNYL PF VIAL 100 MCG/2 ML VIAL IV (12:30)
[2017-09-07 12:38] LABS: ADD MAN DIFF? NO
[2017-09-07 12:42] LABS: BASO % 1 % (0-3); EOS # 0.1 x10^3/uL (0.0-0.7); EOS % 2 % (0-3); HEMATOCRIT 33.1 % (36.0-47.0); HEMOGLOBIN 10.7 g/dL (12.0-15.5); LYMPH # 0.5 x10^3/uL (1.0-4.8); LYMPH % 10 % (24-48); MEAN CORPUSCULAR HEMOGLOBIN 29 pg (25-35); MEAN CORPUSCULAR HGB CONC 32 g/dL (31-37); MEAN CORPUSCULAR VOLUME 90 fL (79-100); MONO # 0.4 x10^3/uL (0.0-1.1); MONO % 8 % (0-9); NEUT # 3.6 x10^3uL (1.8-7.7); NEUT % 79 % (31-73); PLATELET COUNT 207 x10^3/uL (140-400); RED BLOOD COUNT 3.67 x10^6/uL (3.50-5.40); RED CELL DISTRIBUTION WIDTH 18.7 % (11.5-14.5); WHITE BLOOD COUNT 4.6 x10^3/uL (4.0-11.0)
[2017-09-07 12:50] LABS: ANION GAP 15 (6-14); BLOOD UREA NITROGEN 51 mg/dL (7-20); BUN/CREATININE RATIO 5 (6-20); CALCIUM 8.5 mg/dL (8.5-10.1); CARBON DIOXIDE 27 mmol/L (21-32); CHLORIDE 95 mmol/L (98-107); CREATININE 10.2 mg/dL (0.6-1.0); GFR 4.8; GLUCOSE 226 mg/dL (70-99); POTASSIUM 4.4 mmol/L (3.5-5.1); SODIUM 137 mmol/L (136-145)
[2017-09-07 12:54] LABS: ALBUMIN 4.1 g/dL (3.4-5.0); ALBUMIN/GLOBULIN RATIO 1.2 (1.0-1.7); ALK PHOS 192 U/L (46-116); ALT (SGPT) 346 U/L (14-59); AST (SGOT) 93 U/L (15-37); LIPASE 67 U/L (73-393); TOTAL BILIRUBIN 0.7 mg/dL (0.2-1.0); TOTAL PROTEIN 7.6 g/dL (6.4-8.2)
[2017-09-07] MEDS: HYOSCYAMINE 0.125 MG TAB.RAPDIS PO (12:56)
[2017-09-07 13:04] LABS: BILIRUBIN,URINE SMALL (NEG); CLARITY,URINE CLOUDY; COLOR,URINE AMBER; GLUCOSE,URINE NEGATIVE (NEG); NITRITE,URINE NEGATIVE (NEG); PH,URINE 5.5; PROTEIN,URINE >=300 mg/dL (NEG-TRACE)
[2017-09-07 13:11] LABS: AMORPHOUS SEDIMENT,UR PRESENT /HPF; HYALINE CASTS, URINE FEW /HPF
[2017-09-07 13:12] LABS: BACTERIA,URINE FEW /HPF (0-FEW); RBC,URINE 0 /HPF (0-2)
== END 2017-09-07 14:35 | disposition home or self-care (01) ==
LOC: ER 11:40
DX: N39.0 Urinary tract infection, site not specified (principal); I12.0 Hypertensive chronic kidney disease with stage 5 chronic kidney disease or end stage renal disease; E11.22 Type 2 diabetes mellitus with diabetic chronic kidney disease; N18.6 End stage renal disease; Z88.5 Allergy status to narcotic agent; Z99.2 Dependence on renal dialysis; Z90.710 Acquired absence of both cervix and uterus; Z88.8 Allergy status to other drugs, medicaments and biological substances; Z91.041 Radiographic dye allergy status
CPT/HCPCS: 36415; 51701; 80053; 81001; 83690; 85025; 87086; 99284-25

== ENCOUNTER 2017-09-08 18:17 | Emergency (ER) | payer OTHER ==
[2017-09-08 18:59] LABS: BILIRUBIN,URINE SMALL (NEG); CLARITY,URINE CLOUDY; COLOR,URINE YELLOW; GLUCOSE,URINE NEGATIVE (NEG); NITRITE,URINE NEGATIVE (NEG); PROTEIN,URINE >=300 mg/dL (NEG-TRACE); UROBILINOGEN,URINE 0.2 mg/dL (0.2 mg/dL)
[2017-09-08] MEDS: PHENAZOPYRIDINE 200 MG TABLET. PO (19:18)
[2017-09-08] MEDS: fentaNYL PF VIAL 100 MCG/2 ML VIAL IV (19:18)
[2017-09-08 19:27] LABS: ADD MAN DIFF? NO
[2017-09-08 19:43] LABS: AMORPHOUS SEDIMENT,UR PRESENT /HPF; BACTERIA,URINE FEW /HPF (0-FEW); SQUAMOUS EPITHELIAL CELL,UR MOD /LPF
[2017-09-08 19:46] LABS: BASO # 0.1 x10^3/uL (0.0-0.2); BASO % 1 % (0-3); EOS # 0.2 x10^3/uL (0.0-0.7); EOS % 4 % (0-3); HEMATOCRIT 34.8 % (36.0-47.0); HEMOGLOBIN 11.2 g/dL (12.0-15.5); LYMPH # 0.8 x10^3/uL (1.0-4.8); LYMPH % 17 % (24-48); MEAN CORPUSCULAR HEMOGLOBIN 29 pg (25-35); MEAN CORPUSCULAR HGB CONC 32 g/dL (31-37); MEAN CORPUSCULAR VOLUME 90 fL (79-100); MONO # 0.4 x10^3/uL (0.0-1.1); MONO % 9 % (0-9); NEUT # 3.1 x10^3uL (1.8-7.7); NEUT % 69 % (31-73); PLATELET COUNT 229 x10^3/uL (140-400); RED BLOOD COUNT 3.89 x10^6/uL (3.50-5.40); RED CELL DISTRIBUTION WIDTH 18.1 % (11.5-14.5); WHITE BLOOD COUNT 4.5 x10^3/uL (4.0-11.0)
[2017-09-08 20:25] LABS: ANION GAP 11 (6-14); BLOOD UREA NITROGEN 61 mg/dL (7-20); BUN/CREATININE RATIO 5 (6-20); CALCIUM 7.9 mg/dL (8.5-10.1); CARBON DIOXIDE 28 mmol/L (21-32); CHLORIDE 96 mmol/L (98-107); CREATININE 12.7 mg/dL (0.6-1.0); GFR 3.7; GLUCOSE 162 mg/dL (70-99); POTASSIUM 4.2 mmol/L (3.5-5.1); SODIUM 135 mmol/L (136-145)
[2017-09-08 20:30] LABS: ALBUMIN 3.6 g/dL (3.4-5.0); ALBUMIN/GLOBULIN RATIO 1.1 (1.0-1.7); ALK PHOS 189 U/L (46-116); ALT (SGPT) 227 U/L (14-59); AST (SGOT) 42 U/L (15-37); TOTAL BILIRUBIN 0.7 mg/dL (0.2-1.0); TOTAL PROTEIN 6.8 g/dL (6.4-8.2)
[2017-09-08] MEDS: cefTRIAXone IM 1 GM VIAL IM (21:30)
[2017-09-08] MEDS: HYDROcodone/APAP 5/325MG 1 TAB TABLET PO (21:33)
== END 2017-09-08 21:45 | disposition home or self-care (01) ==
LOC: ER 18:17
DX: N39.0 Urinary tract infection, site not specified (principal); I12.0 Hypertensive chronic kidney disease with stage 5 chronic kidney disease or end stage renal disease; E11.22 Type 2 diabetes mellitus with diabetic chronic kidney disease; N18.6 End stage renal disease; Z99.2 Dependence on renal dialysis; Z90.710 Acquired absence of both cervix and uterus; Z88.5 Allergy status to narcotic agent; Z88.8 Allergy status to other drugs, medicaments and biological substances; Z91.041 Radiographic dye allergy status
CPT/HCPCS: 36415; 51702; 74176; 80053; 81001; 83735; 85025; 87086; 96365; 96372; 96374; 96375; 99285-25; J0690; J0696; J3010

== ENCOUNTER 2017-12-17 20:36 | Emergency (ER) | payer OTHER ==
[2017-12-17] MEDS: fentaNYL PF VIAL 100 MCG/2 ML VIAL IV (21:32)
[2017-12-17] MEDS: ONDANSETRON PF 4 MG/2 ML VIAL. IV (21:33)
[2017-12-17 21:43] LABS: BASO # 0.1 x10^3/uL (0.0-0.2); BASO % 1 % (0-3); EOS # 0.1 x10^3/uL (0.0-0.7); EOS % 1 % (0-3); HEMATOCRIT 25.4 % (36.0-47.0); HEMOGLOBIN 8.4 g/dL (12.0-15.5); LYMPH # 0.3 x10^3/uL (1.0-4.8); LYMPH % 3 % (24-48); MEAN CORPUSCULAR HEMOGLOBIN 29 pg (25-35); MEAN CORPUSCULAR HGB CONC 33 g/dL (31-37); MEAN CORPUSCULAR VOLUME 87 fL (79-100); MONO # 0.6 x10^3/uL (0.0-1.1); MONO % 6 % (0-9); NEUT # 8.3 x10^3uL (1.8-7.7); NEUT % 89 % (31-73); PLATELET COUNT 215 x10^3/uL (140-400); RED BLOOD COUNT 2.93 x10^6/uL (3.50-5.40); RED CELL DISTRIBUTION WIDTH 18.6 % (11.5-14.5); WHITE BLOOD COUNT 9.3 x10^3/uL (4.0-11.0)
[2017-12-17 21:44] LABS: ADD MAN DIFF? YES
[2017-12-17 21:52] LABS: ANION GAP 12 (6-14); BLOOD UREA NITROGEN 34 mg/dL (7-20); BUN/CREATININE RATIO 7 (6-20); CALCIUM 8.4 mg/dL (8.5-10.1); CARBON DIOXIDE 28 mmol/L (21-32); CHLORIDE 97 mmol/L (98-107); GFR 10.9; GLUCOSE 177 mg/dL (70-99); POTASSIUM 4.3 mmol/L (3.5-5.1); SODIUM 137 mmol/L (136-145)
[2017-12-17 21:57] LABS: ALBUMIN 2.9 g/dL (3.4-5.0); ALBUMIN/GLOBULIN RATIO 0.8 (1.0-1.7); ALK PHOS 276 U/L (46-116); ALT (SGPT) 15 U/L (14-59); AST (SGOT) 30 U/L (15-37); TOTAL BILIRUBIN 0.8 mg/dL (0.2-1.0); TOTAL PROTEIN 6.4 g/dL (6.4-8.2)
[2017-12-17] MEDS: ONDANSETRON ODT 4 MG TAB.RAPDIS. PO (21:59)
[2017-12-17] MEDS: fentaNYL PF VIAL 100 MCG/2 ML VIAL IM (22:00)
[2017-12-17 22:03] LABS: TROPONINI 0.098 ng/mL (0.000-0.055)
[2017-12-17 22:11] LABS: % BANDS 1 % (0-9); % EOS 1 % (0-5); % LYMPHS 3 % (24-48); % MONOS 3 % (0-10); % SEGS 92 % (35-66)
[2017-12-17 22:15] LABS: ANISOCYTOSIS SLIGHT; PLT ESTIMATE ADEQUATE (ADEQUATE); POLYCHROMASIA SLIGHT
[2017-12-18 00:09] LABS: TROPONINI 0.085 ng/mL (0.000-0.055)
[2017-12-18 13:05] LABS: TROPONIN BY ISTAT 0.08 ng/ml (<0.08)
== END 2017-12-18 03:50 | disposition home or self-care (01) ==
LOC: ER 12-18 03:50
DX: G89.18 Other acute postprocedural pain (principal); R07.89 Other chest pain; Z95.5 Presence of coronary angioplasty implant and graft; I12.0 Hypertensive chronic kidney disease with stage 5 chronic kidney disease or end stage renal disease; E11.22 Type 2 diabetes mellitus with diabetic chronic kidney disease; N18.6 End stage renal disease; Z99.2 Dependence on renal dialysis; Z88.5 Allergy status to narcotic agent; Z88.8 Allergy status to other drugs, medicaments and biological substances; Z91.041 Radiographic dye allergy status
CPT/HCPCS: 36415; 71045; 80053; 84484; 85007; 85025; 93005; 96372; 99285-25; J3010; Q0162

== ENCOUNTER 2018-01-01 02:09 | Emergency (ER) | payer OTHER ==
[2018-01-01] MEDS: oxyCODONE/APAP 10/325 1 TAB TABLET PO (02:41)
[2018-01-01 02:50] LABS: ADD MAN DIFF? NO
[2018-01-01 02:55] LABS: BASO % 0 % (0-3); EOS # 0.1 x10^3/uL (0.0-0.7); EOS % 1 % (0-3); HEMATOCRIT 23.3 % (36.0-47.0); LYMPH # 0.6 x10^3/uL (1.0-4.8); LYMPH % 8 % (24-48); MEAN CORPUSCULAR HEMOGLOBIN 30 pg (25-35); MEAN CORPUSCULAR HGB CONC 34 g/dL (31-37); MEAN CORPUSCULAR VOLUME 86 fL (79-100); MONO # 0.7 x10^3/uL (0.0-1.1); MONO % 9 % (0-9); NEUT # 6.4 x10^3uL (1.8-7.7); NEUT % 82 % (31-73); PLATELET COUNT 221 x10^3/uL (140-400); WHITE BLOOD COUNT 7.9 x10^3/uL (4.0-11.0)
[2018-01-01 03:00] LABS: ANION GAP 7 (6-14); BLOOD UREA NITROGEN 36 mg/dL (7-20); BUN/CREATININE RATIO 7 (6-20); CALCIUM 9.9 mg/dL (8.5-10.1); CARBON DIOXIDE 31 mmol/L (21-32); CHLORIDE 95 mmol/L (98-107); CREATININE 5.4 mg/dL (0.6-1.0); GFR 9.9; GLUCOSE 155 mg/dL (70-99); SODIUM 133 mmol/L (136-145)
[2018-01-01 03:06] LABS: ALBUMIN 3.1 g/dL (3.4-5.0); ALK PHOS 240 U/L (46-116); ALT (SGPT) 33 U/L (14-59); AST (SGOT) 37 U/L (15-37); TOTAL BILIRUBIN 0.5 mg/dL (0.2-1.0); TOTAL PROTEIN 6.2 g/dL (6.4-8.2)
[2018-01-01 03:08] LABS: TROPONINI < 0.017 ng/mL (0.000-0.055)
[2018-01-01] MEDS: MORPHINE SULFATE 2 MG/ML DISP.SYRIN. IM (04:13)
== END 2018-01-01 06:32 | disposition home or self-care (01) ==
LOC: ER 02:09
DX: R07.89 Other chest pain (principal); G89.18 Other acute postprocedural pain; E11.22 Type 2 diabetes mellitus with diabetic chronic kidney disease; I25.2 Old myocardial infarction; Z95.5 Presence of coronary angioplasty implant and graft; Z88.5 Allergy status to narcotic agent; Z88.8 Allergy status to other drugs, medicaments and biological substances; Z91.041 Radiographic dye allergy status
CPT/HCPCS: 36415; 71045; 80053; 84484; 85025; 93005; 96372; 99285-25; J2270

== ENCOUNTER 2018-01-08 11:59 | Inpatient (IN) | payer OTHER ==
[~2018-01-08] VITALS: Ht 157.5 cm; Wt 80.9 kg
[~2018-01-08 11:59] MED LIST changes: +ACET500T55 PO; +CARV12.52 PO; +CEPH-264 PO; +CHOL10003 PO; +CLON0.2T10 PO; +CLON0.3T4 PO; +Calcium Acetate PO; +ERGO500027 PO; +GUAI600T47 PO; +HYDR-971 PO; +ISOS30TA4 PO; +LACT1CAP19 PO; +MINO2.5T12 PO; +MONT10TA9 PO; +PHEN100T82 PO; +POLY2500 PO
--- NOTE | 2018-01-08 12:49 | EKG ---
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
[2018-01-08 12:57] LABS: BASO # 0.1 x10^3/uL (0.0-0.2); BASO % 1 % (0-3); EOS % 0 % (0-3); HEMATOCRIT 22.3 % (36.0-47.0); HEMOGLOBIN 7.3 g/dL (12.0-15.5); LYMPH # 0.5 x10^3/uL (1.0-4.8); LYMPH % 2 % (24-48); MEAN CORPUSCULAR HEMOGLOBIN 28 pg (25-35); MEAN CORPUSCULAR HGB CONC 33 g/dL (31-37); MEAN CORPUSCULAR VOLUME 86 fL (79-100); MONO # 0.7 x10^3/uL (0.0-1.1); MONO % 3 % (0-9); NEUT # 20.3 x10^3uL (1.8-7.7); NEUT % 94 % (31-73); PLATELET COUNT 215 x10^3/uL (140-400); RED BLOOD COUNT 2.58 x10^6/uL (3.50-5.40); RED CELL DISTRIBUTION WIDTH 18.6 % (11.5-14.5); WHITE BLOOD COUNT 21.7 x10^3/uL (4.0-11.0)
--- NOTE | 2018-01-08 12:57 | PHYS DOC ---
Past Medical History Past Medical History: Diabetes-Type II, [place], Renal Failure Additional Past Medical Histor: CELIAC Past Surgical History: Cholecystectomy, Coronary Bypass Surgery, Hysterectomy Additional Past Surgical Histo: FISTULA Alcohol Use: None Drug Use: None Adult General Chief Complaint Chief Complaint: CHEST PAIN [facility] HPI Patient is a 57 year old female who presents with chest pain. The patient complains of incisional chest pain. She had a recent sternotomy done when she underwent coronary artery bypass graft surgery at [facility]. She is known to have end-stage renal disease. She was at dialysis today. She complained of chest pain 2 staff members and was immediately sent to the emergency department. The patient has multiple visits for similar pain since her surgery. Her pain is immediately over the incision. She has not missed any dialysis before today. She currently resides in an acute rehabilitation facility. She states there is no pain medication there for her. She does not feel short of breath. She has had no cough or fever. The patient has otherwise been at baseline health which is poor. Review of Systems Review of Systems Constitutional: Denies fever or chills Eyes: Denies change in visual acuity, redness HENT: Denies nasal congestion or sore throat Respiratory: Denies cough or shortness of breath Cardiovascular: No additional information not addressed in HPI GI: Denies abdominal pain, nausea : Denies dysuria or hematuria Musculoskeletal: Denies back pain or joint pain Integument: Denies rash or skin lesions Neurologic: Denies headache Endocrine: Denies polyuria All other systems were reviewed and found to be within normal limits, except as documented in this note. Current Medications Current Medications Current Medications Medications (Trade) Dose Ordered Sig/[facility] Start Time Stop Time Status Last Admin Dose Admin Morphine Sulfate (Morphine Sulfate) 2 mg PRN Q2HR PRN 01/08/18 16:00 01/09/18 15:59 UNV Ondansetron HCl (Zofran) 4 mg PRN Q8HRS PRN 01/08/18 16:00 01/09/18 15:59 UNV Vancomycin HCl (Vanco Per Pharmacy) 1 each PRN DAILY PRN 01/08/18 15:30 UNV Vancomycin HCl 1.75 gm/Sodium Chloride 500 ml @ 250 mls/hr 1X ONCE 01/08/18 15:30 01/08/18 17:29 01/08/18 15:39 250 MLS/HR Allergies Allergies Allergies Coded Allergies Type Severity Reaction Last Updated Verified amitriptyline Allergy Intermediate 11/09/16 Yes hydromorphone Allergy Intermediate LORTAB OK AT HOME 05/05/17 Yes lisinopril Allergy Intermediate 11/09/16 Yes metformin Allergy Intermediate 11/09/16 Yes I S O L A T I O N *CONTACT* Allergy Unknown 11/09/16 Yes Physical Exam Physical Exam Constitutional: Well developed, well nourished, no acute distress, non-toxic appearance HENT: Normocephalic, atraumatic Eyes: PERRLA, EOMI, conjunctiva normal Neck: Normal range of motion Cardiovascular:Heart rate regular rhythm, no murmur Lungs & Thorax: Bilateral breath sounds clear to auscultation, healing sternotomy incision. There is no local erythema or purulence. Abdomen: Bowel sounds normal, soft Skin: Warm, dry, no erythema Extremities: 2+ pitting edema bilateral lower extremities which the patient states is baseline and not worse compared to normal Neurologic: Alert and oriented X 3 Psychologic: Affect normal Current Patient Data Vital Signs Vital Signs Date Time Temp Pulse Resp B/P (MAP) Pulse Ox O2 Delivery O2 Flow Rate FiO2 01/08/18 14:40 70 16 116/58 (77) 97 Room Air 01/08/18 11:59 98.8 98.8 Lab Values Laboratory Tests Test 01/08/18 12:35 01/08/18 14:32 01/08/18 15:30 White Blood Count 21.7 x10^3/uL (4.0-11.0) H Red Blood Count 2.58 x10^6/uL (3.50-5.40) L Hemoglobin 7.3 g/dL (12.0-15.5) L Hematocrit 22.3 % (36.0-47.0) L Mean Corpuscular Volume 86 fL (79-100) Mean Corpuscular Hemoglobin 28 pg (25-35) Mean Corpuscular Hemoglobin Concent 33 g/dL (31-37) Red Cell Distribution Width 18.6 % (11.5-14.5) H Platelet Count 215 x10^3/uL (140-400) Neutrophils (%) (Auto) 94 % (31-73) H Lymphocytes (%) (Auto) 2 % (24-48) L Monocytes (%) (Auto) 3 % (0-9) Eosinophils (%) (Auto) 0 % (0-3) Basophils (%) (Auto) 1 % (0-3) Neutrophils # (Auto) 20.3 x10^3uL (1.8-7.7) H Lymphocytes # (Auto) 0.5 x10^3/uL (1.0-4.8) L Monocytes # (Auto) 0.7 x10^3/uL (0.0-1.1) Eosinophils # (Auto) 0.0 x10^3/uL (0.0-0.7) Basophils # (Auto) 0.1 x10^3/uL (0.0-0.2) Segmented Neutrophils % 86 % (35-66) H Band Neutrophils % 8 % (0-9) Lymphocytes % 2 % (24-48) L Monocytes % 4 % (0-10) Platelet Estimate Adequate (ADEQUATE) Polychromasia Present Poikilocytosis Slight Anisocytosis Slight Tear Drop Cells Occ James Cells Few Acanthocytes (Spur Cells) Few Schistocytes Few Prothrombin Time 17.2 SEC (11.7-14.0) H Prothrombin Time INR 1.5 (0.8-1.1) H Sodium Level 131 mmol/L (136-145) L Potassium Level 4.7 mmol/L (3.5-5.1) Chloride Level 96 mmol/L (98-107) L Carbon Dioxide Level 24 mmol/L (21-32) Anion Gap 11 (6-14) Blood Urea Nitrogen 36 mg/dL (7-20) H Creatinine 5.6 mg/dL (0.6-1.0) H Estimated GFR (Cockcroft-Gault) 9.5 Glucose Level 93 mg/dL (70-99) Calcium Level 9.3 mg/dL (8.5-10.1) Troponin I Quantitative 0.046 ng/mL (0.000-0.055) C-Reactive Protein, Quantitative 173.6 mg/L (0-3.3) H Lactic Acid Level 0.8 mmol/L (0.4-2.0) Laboratory Tests 01/08/18 12:35 Laboratory Tests 01/08/18 14:32 EKG EKG No STEMI Interpretation Time: 12:20 Radiology/Procedures Radiology/Procedures FINDINGS: Mild cardiomegaly. Median sternotomy wires identified. Low lung volumes and technique accentuates heart size and pulmonary vascularity. Interval decrease in left lung base airspace opacities likely atelectasis or infiltrate. IMPRESSION: Mild decrease in left lung base airspace opacities likely atelectasis or infiltrate. Follow-up to resolution. Course & Med Decision Making Course & Med Decision Making Pertinent Labs and Imaging studies reviewed. (See chart for details) Patient is evaluated on arrival to the ER. This patient is well-known to me as I have seen her previously. She is complaining of sternotomy incisional pain. She has been evaluated for this several times since her surgery. She has not had any elevated troponins. Today, however, we will recheck troponin and basic cardiac workup including chest x-ray. Medications are ordered for pain control. 16:00: Patient was given 1 dose of morphine in the emergency room. This did significantly improve her pain symptoms. Her workup was positive for significant leukocytosis compared to the most recent results. Chest x-ray had some opacities in the bilateral bases although he is reported to be improved. Her troponin was not elevated. Her EKG was baseline. The cause for her leukocytosis is on clear. She is placed empirically on antibiotics in the ER. I discussed this patient for admission with Dr. Thomas who will admit. Infectious diseases consultation and nephrology for ongoing dialysis. The patient does not have symptoms of fluid overload today. Her potassium level is stable. Dragon Disclaimer Dragon Disclaimer This electronic medical record was generated, in whole or in part, using a voice recognition dictation system. Departure Departure Referrals: GAURAV DANG MD (PCP) QUINCY WILL DO Jan 08, 2018 12:57
[2018-01-08] MEDS ORDERED: MORPHINE SULFATE 4 MG/ML VIAL. IV ONE (13:00)
[2018-01-08 13:06] LABS: PROTHROMBIN TIME PATIENT 17.2 SEC (11.7-14.0)
[2018-01-08 13:22] LABS: % BANDS 8 % (0-9); % LYMPHS 2 % (24-48); % MONOS 4 % (0-10); % SEGS 86 % (35-66); PLT ESTIMATE ADEQUATE (ADEQUATE); POLYCHROMASIA PRESENT
[2018-01-08 13:23] LABS: ANISOCYTOSIS SLIGHT; POIKILOCYTOSIS SLIGHT
[2018-01-08 13:24] LABS: BURR CELLS FEW; SCHISTOCYTES FEW; TEAR DROP CELLS OCC
[2018-01-08 13:25] LABS: ACANTHOCYTES FEW
--- NOTE | 2018-01-08 14:17 | RAD ---
EXAM: CHEST 1 VIEW History: Chest pain COMPARISON: 01/01/2018 TECHNIQUE: Single portable radiograph of the chest FINDINGS: Mild cardiomegaly. Median sternotomy wires identified. Low lung volumes and technique accentuates heart size and pulmonary vascularity. Interval decrease in left lung base airspace opacities likely atelectasis or infiltrate. IMPRESSION: Mild decrease in left lung base airspace opacities likely atelectasis or infiltrate. Follow-up to resolution. Electronically signed by: Bao Martinez MD (01/08/2018 2:13 PM) [facility]
[2018-01-08 15:04] LABS: CALCIUM 9.3 mg/dL (8.5-10.1); CREATININE 5.6 mg/dL (0.6-1.0); GFR 9.5; POTASSIUM 4.7 mmol/L (3.5-5.1)
[2018-01-08] MEDS ORDERED: VANCOMYCIN 1.75 GM in IV NORMAL SALINE 500ML BAG 500 ML IV ONE (15:30)
[2018-01-08] MEDS ORDERED: MORPHINE SULFATE 2 MG/ML VIAL. IV PRN (16:00)
[2018-01-08] MEDS ORDERED: ONDANSETRON PF 4 MG/2 ML VIAL. IV PRN (16:00)
[2018-01-08] MEDS: VANCOMYCIN PER PHARMACY MC PRN (16:16)
--- NOTE | 2018-01-08 16:44 | HP ---
ADMIT DATE: 01/08/2018 CHIEF COMPLAINT: Chest pain. HISTORY OF PRESENT ILLNESS: The patient is a pleasant 57-year-old female who had bypass surgery at [facility] just recently. She is also on dialysis. Today, she presents with chest pain. She actually went to dialysis today, but they were concerned about her chest pain and sent her straight to the ER. On the ER, we did some imaging. She does have possible left-sided pneumonia. Interestingly, her white count is also above 20,000, it was just 8000 not too long ago. I discussed the case with the ER physician. We are going to admit the patient and place her on IV antibiotics and consult ID. PAST MEDICAL HISTORY: Diabetes, myocardial infarction, renal failure, celiac disease, cholecystectomy, coronary artery bypass surgery, hysterectomy, left arm fistula. ALLERGIES: AMITRIPTYLINE, HYDROMORPHONE, LISINOPRIL, AND METFORMIN. FAMILY HISTORY: Diabetes. SOCIAL HISTORY: She does not drink, smoke or take drugs. MEDICATIONS: Reviewed, please refer to the MRAD. REVIEW OF SYSTEMS: GENERAL: No history of weight change, weakness or fevers. SKIN: No bruising, hair changes or rashes. EYES: No blurred, double or loss of vision. NOSE AND THROAT: No history of nosebleeds, hoarseness or sore throat. HEART: She complains of chest pain. LUNGS: Denies cough, hemoptysis, wheezing or shortness of breath. GASTROINTESTINAL: Denies changes in appetite, nausea, vomiting, diarrhea or constipation. GENITOURINARY: No history of frequency, urgency, hesitancy or nocturia. NEUROLOGIC: Denies history of numbness, tingling, tremor or weakness. PSYCHIATRIC: No history of panic, anxiety or depression. ENDOCRINE: No history of heat or cold intolerance, polyuria or polydipsia. EXTREMITIES: Denies muscle weakness, joint pain, pain on walking or stiffness. PHYSICAL EXAMINATION: VITAL SIGNS: Temperature is afebrile, pulse 76, respirations 18, blood pressure 117/59. GENERAL: She is awake, but semi-sedated. She just got some morphine, being examined here in the ER with her nurse present. HEART: Normal S1, S2. LUNGS: Clear. ABDOMEN: Soft. HEMATOPOIETIC: No organomegaly. EXTREMITIES: No edema. MUSCULOSKELETAL: Chest wall is painful to touch, it is a little bit firm. SKIN: She has no rashes, but the sternal wound has a few little areas that have opened up a little bit, although they are scabbed over. Again, it is kind of firm around there. I suspect this could possibly be induration with some underlying infection. LABORATORY DATA: White count 22, hemoglobin 7.3, platelets 215. Electrolytes: Sodium 131, potassium 4.7, chloride 96, bicarbonate 24, BUN 36, creatinine 5.6, glucose 93. INR is 1.5. ASSESSMENT AND PLAN: Chest pain with leukocytosis in a middle-aged female who had a recent bypass surgery who is also on dialysis. The patient is being admitted. We are consulting Infectious Disease and her cullet trucker, Dr. Hernandez. Start IV antibiotics. Continue her home meds, frequent labs, PT, OT, wound care. PROGNOSIS: Guarded. CHIRAGL Nadine SHAW DO DR: EDWIN/faraz JOB#: [id number] / [id number]
[2018-01-08] MEDS ORDERED: ACETAMINOPHEN 325 MG TABLET. PO PRN (18:00)
[2018-01-08] MEDS ORDERED: IOHEXOL 300 MG/ML 100ML VIAL. IV ONE (18:15)
[2018-01-08 19:05] VITALS: BP 139/47
--- NOTE | 2018-01-08 20:14 | RAD ---
CT abdomen and pelvis with contrast. HISTORY: Leukocytosis CT scan of the abdomen and pelvis was done using 75 mL Omnipaque 300 contrast. There is a moderate left pleural effusion with left basilar atelectasis or infiltrate. There is diffuse edema in the soft tissues suggesting anasarca. A focal liver lesion is not identified. The patient's had a cholecystectomy. Spleen is not enlarged. Adrenal glands and pancreas are unremarkable. There is no mass or hydronephrosis in the kidneys. There is mild ascites. There is no bowel obstruction. The bladder is very distended. Patient's had a hysterectomy. There is moderate stool in the colon. Appendix is normal. IMPRESSION: 1. Diffuse edema in the soft tissues. 2. Distended bladder. 3. Moderate stool throughout the colon. 4. Mild ascites etiology is not determined. 5. Moderate left pleural effusion with left base atelectasis or infiltrate. PQRS Compliance Statement: One or more of the following individualized dose reduction techniques were utilized for this examination: 1. Automated exposure control 2. Adjustment of the mA and/or kV according to patient size 3. Use of iterative reconstruction technique Electronically signed by: Foster Haney MD (01/08/2018 8:11 PM) [id number]
[2018-01-08 23:44] VITALS: BP 138/51
[2018-01-09] VITALS (10 sets, daily range): BP systolic 101–133; BP diastolic 43–78
[2018-01-09 05:01] LABS: BASO % 0 % (0-3); EOS % 0 % (0-3); LYMPH # 0.4 x10^3/uL (1.0-4.8); LYMPH % 2 % (24-48); MEAN CORPUSCULAR HEMOGLOBIN 29 pg (25-35); MEAN CORPUSCULAR HGB CONC 34 g/dL (31-37); MEAN CORPUSCULAR VOLUME 86 fL (79-100); MONO % 5 % (0-9); NEUT # 20.3 x10^3uL (1.8-7.7); NEUT % 94 % (31-73); PLATELET COUNT 138 x10^3/uL (140-400); RED BLOOD COUNT 2.19 x10^6/uL (3.50-5.40); RED CELL DISTRIBUTION WIDTH 18.8 % (11.5-14.5); WHITE BLOOD COUNT 21.7 x10^3/uL (4.0-11.0)
[2018-01-09 05:05] LABS: HEMATOCRIT 18.8 % (36.0-47.0); HEMOGLOBIN 6.4 g/dL (12.0-15.5)
[2018-01-09 05:30] LABS: CALCIUM 9.2 mg/dL (8.5-10.1); CREATININE 6.1 mg/dL (0.6-1.0); GFR 8.6; POTASSIUM 5.1 mmol/L (3.5-5.1)
[2018-01-09] MEDS ORDERED: NITROGLYCERIN SUBLINGUAL 0.4 MG BOTTLE OF 25. SL PRN (08:45)
[2018-01-09] MEDS: LOSARTAN POTASSIUM 50 MG TABLET. PO SCH (09:00)
[2018-01-09] MEDS: POLYETHYLENE GLYCOL 3350 17 GM PACKET. PO SCH (09:00)
[2018-01-09] MEDS ORDERED: IV NORMAL SALINE 1000ML BAG 1,000 ML IV SCH (09:00)
[2018-01-09] MEDS: CARVEDILOL 12.5 MG TABLET. PO SCH ×2 (09:00→18:08)
[2018-01-09] MEDS: ONDANSETRON PF 4 MG/2 ML VIAL. IV PRN ×2 (09:02→21:30)
[2018-01-09] MEDS ORDERED: MAGNESIUM SULFATE 2GM 50 ML IV PRN (10:15)
--- NOTE | 2018-01-09 10:21 | PDOC2 ---
CONSULT Date of Consult Date of Consult DATE: 01/09/18 TIME: 10:15 Reason for Consult Reason for Consult: ESRD needs dialysis Referring Physician Referring Physician: Dr Brunner Identification/Chief Complaint Chief Complaint CP Source Source: Chart review, Patient History of Present Illness Reason for Visit: as dicatted Past Medical History Cardiovascular: CAD, CHF, HTN, Hyperlipidemia, Pulmonary hypertension Pulmonary: Asthma CENTRAL NERVOUS SYSTEM: CVA GI: GERD Heme/Onc: Anemia NOS Hepatobiliary: Hep A/B/C Psych: Addictions, Depression Musculoskeletal: Osteoarthritis Renal/: Chronic renal failure Endocrine: Diabetes Past Surgical History Past Surgical History: Cholecystectomy, CABG, Hysterectomy, Other Family History Family History: Heart Disease, Kidney Disease Social History ALCOHOL: none Drugs: None Lives: Intermediate Current Problem List Problem List Problems Medical Problems: (1) End stage renal disease Status: Acute Current Medications Current Medications Current Medications Morphine Sulfate (Morphine Sulfate) 6 mg 1X ONCE IV Last administered on at 13:35; Start 01/08/18 at 13:00; Stop 01/08/18 at 13:01; Status DC Vancomycin HCl (Vanco Per Pharmacy) 1 each PRN DAILY PRN MC SEE COMMENTS Last administered on 01/08/18at 16:16; Start 01/08/18 at 15:30 Vancomycin HCl 1.75 gm/Sodium Chloride 500 ml @ 250 mls/hr 1X ONCE IV Last administered on 01/08/18at 15:39; Start 01/08/18 at 15:30; Stop 01/08/18 at 17:29; Status DC Ondansetron HCl (Zofran) 4 mg PRN Q8HRS PRN IV NAUSEA/VOMITING Last administered on 01/08/18at 21:44; Start 01/08/18 at 16:00; Stop 01/09/18 at 08:45; Status DC Morphine Sulfate (Morphine Sulfate) 2 mg PRN Q2HR PRN IV PAIN Last administered on 01/08/18at 17:06; Start 01/08/18 at 16:00; Stop 01/09/18 at 15:59 Vancomycin HCl (Vancomycin Random Level) 1 each 1X ONCE MC ; Start 01/10/18 at 05:00; Stop 01/10/18 at 05:01 Lorazepam (Ativan) 1 mg PRN Q4HRS PRN IV ANXIETY / AGITATION Last administered on 01/08/18at 18:09; Start 01/08/18 at 18:00 Acetaminophen (Tylenol) 650 mg PRN Q6HRS PRN PO FEVER; Start 01/08/18 at 18:00 Iohexol (Omnipaque 300 Mg/ml) 75 ml 1X ONCE IV Last administered on 01/08/18at 19:35; Start 01/08/18 at 18:15; Stop 01/08/18 at 18:16; Status DC Ondansetron HCl (Zofran) 4 mg PRN Q6HRS PRN IV NAUSEA/VOMITING Last administered on 01/09/18at 09:02; Start 01/09/18 at 08:45 Sodium Chloride 1,000 ml @ 100 mls/hr Q10H IV ; Start 01/09/18 at 09:00 Acetaminophen (Tylenol) 1,000 mg TID PO ; Start 01/09/18 at 09:00 Carvedilol (Coreg) 12.5 mg BIDWMEALS PO ; Start 01/09/18 at 09:00 Vitamin D (Vitamin D3) 1,000 unit DAILY PO ; Start 01/09/18 at 09:00 Diphenhydramine HCl (Benadryl) 25 mg PRN Q6HRS PRN PO ITCHING; Start 01/09/18 at 08:45 Vitamin B Complex/ Vitamin C (Anneliese-Donny) 1 tab DAILY PO ; Start 01/09/18 at 09:00 Isosorbide Mononitrate (Imdur) 120 mg DAILY PO ; Start 01/09/18 at 09:00 Amylase/Lipase/ Protease (Zenpep 10,000) 2 cap TIDWMEALS PO ; Start 01/09/18 at 09:00 Nitroglycerin (Nitrostat) 0.4 mg PRN Q5MIN PRN SL CHEST PAIN; Start 01/09/18 at 08:45 Pantoprazole Sodium (Protonix) 40 mg DAILYAC PO ; Start 01/09/18 at 09:00 Non-Formulary Medication (Insulin Aspart (Novolog Flexpen)) TIDAC SQ ; Start at 11:30; Status UNV Losartan Potassium (Cozaar) 100 mg DAILY PO ; Start 01/09/18 at 09:00 Minoxidil (Loniten) 2.5 mg BID PO ; Start 01/09/18 at 09:00 Montelukast Sodium (Singulair) 10 mg QHS PO ; Start 01/09/18 at 21:00 Polyethylene Glycol (miraLAX PACKET) 17 gm DAILY PO ; Start 01/09/18 at 09:00 Sertraline HCl (Zoloft) 100 mg DAILY PO ; Start 01/09/18 at 09:00 Calcium Acetate (Phoslo) 1,334 mg TIDWMEALS PO ; Start 01/09/18 at 09:00 Insulin Human Lispro (HumaLOG) 0-5 UNITS TIDAC SQ ; Start 01/09/18 at 11:30 Active Scripts Active Vitamin D3 (Cholecalciferol (Vitamin D3)) 1,000 Unit Tablet 1 Tab PO DAILY [Calcium Acetate] 667 MG Capsule 1,334 Mg PO TIDWMEALS Mapap (Acetaminophen) 500 Mg Tablet 1,000 Mg PO TID Carvedilol 12.5 Mg Tablet 12.5 Mg PO BIDWMEALS Minoxidil 2.5 Mg Tablet 2.5 Mg PO BID Isosorbide Mononitrate Er (Isosorbide Mononitrate) 30 Mg Tab.er.24h 120 Mg PO DAILY Montelukast Sodium Tablet (Montelukast Sodium) 10 Mg Tablet 10 Mg PO QHS Polyethylene Glycol 3350 2,500 Gm Powder 17 Gm PO DAILY Novolog Flexpen (Insulin Aspart) 100 Unit/1 Ml Insuln.pen 0 Units SQ TIDAC Take sub q tid ac: BS 151-200=2 unit, 201-250=3 unit, [id number], BS 301-350=6 unit, BS 351-400 =8 unit. BS>401 call MD Renetta Busch 10,000 Units Capsule (Lipase/Protease/Amylase) 1 Each Capsule. 2 Cap PO TIDWMEALS TAke 2 cap tid with meals Nephro-Donny Tablet (Folic Acid/Vitamin B Comp W-C) 0.8 Mg Tablet 1 Tab PO DAILY Benadryl (Diphenhydramine Hcl) 25 Mg Capsule 25 Mg PO PRN Q6HRS PRN Reported Nitrostat (Nitroglycerin) 0.4 Mg Tab.subl 0.4 Mg SL PRN Q5MIN PRN Plavix (Clopidogrel Bisulfate) 75 Mg Tablet 1 Tab PO DAILY Zoloft (Sertraline Hcl) 100 Mg Tablet 1 Tab PO DAILY Pantoprazole Sodium 40 Mg Tablet. 1 Tab PO DAILY Losartan Potassium 100 Mg Tablet 100 Mg PO DAILY Aspir 81 (Aspirin) 81 Mg Tablet. 81 Mg PO DAILY Allergies Allergies: Coded Allergies: amitriptyline (Verified Allergy, Intermediate, 11/09/16) hydromorphone (Verified Allergy, Intermediate, LORTAB OK AT HOME, 05/05/17 ) lisinopril (Verified Allergy, Intermediate, 11/09/16) metformin (Verified Allergy, Intermediate, 11/09/16) I S O L A T I O N *CONTACT* (Verified Allergy, Unknown, 11/09/16) mrsa ROS Review of System Pt is not very co-operative with ROS. had CP earlier, no NVD that she admits too. Physical Exam Physical Exam General Appearance: Awake, sandra not appear fully Alert Oriented x 1 In no obvious resp Distress Eyes: VIsion Unchanged Conjunctiva Normal EN: No EN Drainage Mucous Memb. moist Neck: no JVD no JVP Supple no Thyromegaly CVS: S1 S2 Soft Murmur No Gallop No Rub no Edema Resp: no Rales no Rhonchi no Acc. Muscle use GI: BAS +ve NO Bruit Non Tender Non Distended : no CVA tenderness; no Suprapubic Tenderness SKIN: no visible Rashes Breast Exam deferred Mu.Sk: No co-operative with ROS eval novisible Muscle Atrophy Heme: Unable to palpate Obvious LAD no palp Splenomegaly NEURO: adequate Strength in upper ext. Cranial Nerves II - XII grossly intact as best assessable without much coperation from the pt. no asterixis Psych: ? Depressed no Active hallucination Vital Signs Vital Signs Date Time Temp Pulse Resp B/P (MAP) Pulse Ox O2 Delivery O2 Flow Rate FiO2 01/09/18 07:30 Room Air 01/09/18 07:00 99.5 73 22 101/43 (62 95 99.5 Assessment & Plan ESRD: Current FLuid and E-lyte status does not necessitate emergent need for Dialysis. Will re-evaluate for Dialysis in am and continue on TTSAT schedule. Anemia: Epogen Transfuse with next HD as needed. HTN: Current BP meds reviewed. See orders for changes. Bone & Mineral: follow phos and alter binder regimen prn CP - defer to Cardiology ^ed WBCs - ID consulted ? AMS - not sure if this is her baseline after CABG Discussed Plan of Care and prognosis etc. at length with pt Labs Labs Laboratory Tests Test 01/08/18 12:35 01/08/18 14:32 01/08/18 15:30 01/08/18 18:06 White Blood Count 21.7 x10^3/uL (4.0-11.0) Red Blood Count 2.58 x10^6/uL (3.50-5.40) Hemoglobin 7.3 g/dL (12.0-15.5) Hematocrit 22.3 % (36.0-47.0) Mean Corpuscular Volume 86 fL (79-100) Mean Corpuscular Hemoglobin 28 pg (25-35) Mean Corpuscular Hemoglobin Concent 33 g/dL (31-37) Red Cell Distribution Width 18.6 % (11.5-14.5) Platelet Count 215 x10^3/uL (140-400) Neutrophils (%) (Auto) 94 % (31-73) Lymphocytes (%) (Auto) 2 % (24-48) Monocytes (%) (Auto) 3 % (0-9) Eosinophils (%) (Auto) 0 % (0-3) Basophils (%) (Auto) 1 % (0-3) Neutrophils # (Auto) 20.3 x10^3uL (1.8-7.7) Lymphocytes # (Auto) 0.5 x10^3/uL (1.0-4.8) Monocytes # (Auto) 0.7 x10^3/uL (0.0-1.1) Eosinophils # (Auto) 0.0 x10^3/uL (0.0-0.7) Basophils # (Auto) 0.1 x10^3/uL (0.0-0.2) Segmented Neutrophils % 86 % (35-66) Band Neutrophils % 8 % (0-9) Lymphocytes % 2 % (24-48) Monocytes % 4 % (0-10) Platelet Estimate Adequate (ADEQUATE) Polychromasia Present Poikilocytosis Slight Anisocytosis Slight Tear Drop Cells Occ [place] Cells Few Acanthocytes Few Schistocytes Few Erythrocyte Sedimentation Rate 35 (0-25) Prothrombin Time 17.2 SEC (11.7-14.0) Prothromb Time International Ratio 1.5 (0.8-1.1) Sodium Level 131 mmol/L (136-145) Potassium Level 4.7 mmol/L (3.5-5.1) Chloride Level 96 mmol/L (98-107) Carbon Dioxide Level 24 mmol/L (21-32) Anion Gap 11 (6-14) Blood Urea Nitrogen 36 mg/dL (7-20) Creatinine 5.6 mg/dL (0.6-1.0) Estimated GFR (Cockcroft-Gault) 9.5 Glucose Level 93 mg/dL (70-99) Calcium Level 9.3 mg/dL (8.5-10.1) Troponin I Quantitative 0.046 ng/mL (0.000-0.055) C-Reactive Protein, Quantitative 173.6 mg/L (0-3.3) Procalcitonin 2.05 ng/mL (0.00-0.10) Lactic Acid Level 0.8 mmol/L (0.4-2.0) Glucose (Fingerstick) 84 mg/dL (70-99) Test 01/08/18 21:01 01/09/18 04:00 01/09/18 04:30 01/09/18 06:56 Glucose (Fingerstick) 87 mg/dL (70-99) 74 mg/dL (70-99) Sodium Level 133 mmol/L (136-145) Potassium Level 5.1 mmol/L (3.5-5.1) Chloride Level 97 mmol/L (98-107) Carbon Dioxide Level 25 mmol/L (21-32) Anion Gap 11 (6-14) Blood Urea Nitrogen 39 mg/dL (7-20) Creatinine 6.1 mg/dL (0.6-1.0) Estimated GFR (Cockcroft-Gault) 8.6 Glucose Level 77 mg/dL (70-99) Calcium Level 9.2 mg/dL (8.5-10.1) White Blood Count 21.7 x10^3/uL (4.0-11.0) Red Blood Count 2.19 x10^6/uL (3.50-5.40) Hemoglobin 6.4 g/dL (12.0-15.5) Hematocrit 18.8 % (36.0-47.0) Mean Corpuscular Volume 86 fL (79-100) Mean Corpuscular Hemoglobin 29 pg (25-35) Mean Corpuscular Hemoglobin Concent 34 g/dL (31-37) Red Cell Distribution Width 18.8 % (11.5-14.5) Platelet Count 138 x10^3/uL (140-400) Neutrophils (%) (Auto) 94 % (31-73) Lymphocytes (%) (Auto) 2 % (24-48) Monocytes (%) (Auto) 5 % (0-9) Eosinophils (%) (Auto) 0 % (0-3) Basophils (%) (Auto) 0 % (0-3) Neutrophils # (Auto) 20.3 x10^3uL (1.8-7.7) Lymphocytes # (Auto) 0.4 x10^3/uL (1.0-4.8) Monocytes # (Auto) 1.0 x10^3/uL (0.0-1.1) Eosinophils # (Auto) 0.0 x10^3/uL (0.0-0.7) Basophils # (Auto) 0.0 x10^3/uL (0.0-0.2) Laboratory Tests Test 01/08/18 12:35 01/08/18 14:32 01/08/18 15:30 01/08/18 18:06 White Blood Count 21.7 x10^3/uL (4.0-11.0) Red Blood Count 2.58 x10^6/uL (3.50-5.40) Hemoglobin 7.3 g/dL (12.0-15.5) Hematocrit 22.3 % (36.0-47.0) Mean Corpuscular Volume 86 fL (79-100) Mean Corpuscular Hemoglobin 28 pg (25-35) Mean Corpuscular Hemoglobin Concent 33 g/dL (31-37) Red Cell Distribution Width 18.6 % (11.5-14.5) Platelet Count 215 x10^3/uL (140-400) Neutrophils (%) (Auto) 94 % (31-73) Lymphocytes (%) (Auto) 2 % (24-48) Monocytes (%) (Auto) 3 % (0-9) Eosinophils (%) (Auto) 0 % (0-3) Basophils (%) (Auto) 1 % (0-3) Neutrophils # (Auto) 20.3 x10^3uL (1.8-7.7) Lymphocytes # (Auto) 0.5 x10^3/uL (1.0-4.8) Monocytes # (Auto) 0.7 x10^3/uL (0.0-1.1) Eosinophils # (Auto) 0.0 x10^3/uL (0.0-0.7) Basophils # (Auto) 0.1 x10^3/uL (0.0-0.2) Segmented Neutrophils % 86 % (35-66) Band Neutrophils % 8 % (0-9) Lymphocytes % 2 % (24-48) Monocytes % 4 % (0-10) Platelet Estimate Adequate (ADEQUATE) Polychromasia Present Poikilocytosis Slight Anisocytosis Slight Tear Drop Cells Occ [place] Cells Few Acanthocytes Few Schistocytes Few Erythrocyte Sedimentation Rate 35 (0-25) Prothrombin Time 17.2 SEC (11.7-14.0) Prothromb Time International Ratio 1.5 (0.8-1.1) Sodium Level 131 mmol/L (136-145) Potassium Level 4.7 mmol/L (3.5-5.1) Chloride Level 96 mmol/L (98-107) Carbon Dioxide Level 24 mmol/L (21-32) Anion Gap 11 (6-14) Blood Urea Nitrogen 36 mg/dL (7-20) Creatinine 5.6 mg/dL (0.6-1.0) Estimated GFR (Cockcroft-Gault) 9.5 Glucose Level 93 mg/dL (70-99) Calcium Level 9.3 mg/dL (8.5-10.1) Troponin I Quantitative 0.046 ng/mL (0.000-0.055) C-Reactive Protein, Quantitative 173.6 mg/L (0-3.3) Procalcitonin 2.05 ng/mL (0.00-0.10) Lactic Acid Level 0.8 mmol/L (0.4-2.0) Glucose (Fingerstick) 84 mg/dL (70-99) Test 01/08/18 21:01 01/09/18 04:00 01/09/18 04:30 01/09/18 06:56 Glucose (Fingerstick) 87 mg/dL (70-99) 74 mg/dL (70-99) Sodium Level 133 mmol/L (136-145) Potassium Level 5.1 mmol/L (3.5-5.1) Chloride Level 97 mmol/L (98-107) Carbon Dioxide Level 25 mmol/L (21-32) Anion Gap 11 (6-14) Blood Urea Nitrogen 39 mg/dL (7-20) Creatinine 6.1 mg/dL (0.6-1.0) Estimated GFR (Cockcroft-Gault) 8.6 Glucose Level 77 mg/dL (70-99) Calcium Level 9.2 mg/dL (8.5-10.1) White Blood Count 21.7 x10^3/uL (4.0-11.0) Red Blood Count 2.19 x10^6/uL (3.50-5.40) Hemoglobin 6.4 g/dL (12.0-15.5) Hematocrit 18.8 % (36.0-47.0) Mean Corpuscular Volume 86 fL (79-100) Mean Corpuscular Hemoglobin 29 pg (25-35) Mean Corpuscular Hemoglobin Concent 34 g/dL (31-37) Red Cell Distribution Width 18.8 % (11.5-14.5) Platelet Count 138 x10^3/uL (140-400) Neutrophils (%) (Auto) 94 % (31-73) Lymphocytes (%) (Auto) 2 % (24-48) Monocytes (%) (Auto) 5 % (0-9) Eosinophils (%) (Auto) 0 % (0-3) Basophils (%) (Auto) 0 % (0-3) Neutrophils # (Auto) 20.3 x10^3uL (1.8-7.7) Lymphocytes # (Auto) 0.4 x10^3/uL (1.0-4.8) Monocytes # (Auto) 1.0 x10^3/uL (0.0-1.1) Eosinophils # (Auto) 0.0 x10^3/uL (0.0-0.7) Basophils # (Auto) 0.0 x10^3/uL (0.0-0.2) Review All relevant outside records, renal labs, imaging studies, telemetry/EKG's were reviewed. Images Images CT Scan:IMPRESSION: 1. Diffuse edema in the soft tissues. 2. Distended bladder. 3. Moderate stool throughout the colon. 4. Mild ascites etiology is not determined. 5. Moderate left pleural effusion with left base atelectasis or infiltrate. CXR: FINDINGS: Mild cardiomegaly. Median sternotomy wires identified. Low lung volumes and technique accentuates heart size and pulmonary vascularity. Interval decrease in left lung base airspace opacities likely atelectasis or infiltrate. IMPRESSION: Mild decrease in left lung base airspace opacities likely atelectasis or infiltrate. Follow-up to resolution. ELISEO BA MD Jan 09, 2018 10:21
--- NOTE | 2018-01-09 10:59 | PDOC ---
PROGRESS NOTES Chief Complaint Chief Complaint ESRD on dialysis TTHSAT Anemia of ESRD PNA with moderate diffusion S OA Hypoxic respiratory failure POA Moderate PCM History of CABG November or December 2017 Generalized weakness, chronic leg edema secondary to immobility History of Present Illness History of Present Illness Still feeling very weak, claims to me she hasn't walked since open heart surgery on discharge December 2017 Lives at home with daughter, wheelchair assistive device Called by RN today for hemoglobin of 6.4 Did not get dialyzed yesterday Wednesday No overt blood loss On aspirin and Plavix. Status post CABG-I held today because of the significant anemia Plan: transfuse one pack RBC Hemoglobin was 7 yesterday Check for Hemoccult Transfer service to -apparently his patient Discussed with patient and RN HAve difficulty consenting to blood, daughter gives consent, patient gave verbal consent to me, but is being quite difficult with other staff regarding giving consent for blood Vitals Vitals Vital Signs Date Time Temp Pulse Resp B/P (MAP) Pulse Ox O2 Delivery O2 Flow Rate FiO2 01/09/18 10:39 99.9 68 20 115/57 (76) 97 Room Air 99.9 Physical Exam General: Cooperative, No acute distress, Other (seems confused and slightly anxious) Heart: Regular rate, Normal S1, Normal S2, No murmurs Lungs: Crackles, Other (decreased breath sounds bases) Abdomen: Normal bowel sounds, Soft Extremities: No clubbing, No cyanosis Skin: No rashes, No breakdown Labs LABS Laboratory Tests Test 01/08/18 12:35 01/08/18 14:32 01/08/18 15:30 01/08/18 18:06 White Blood Count 21.7 x10^3/uL (4.0-11.0) Red Blood Count 2.58 x10^6/uL (3.50-5.40) Hemoglobin 7.3 g/dL (12.0-15.5) Hematocrit 22.3 % (36.0-47.0) Mean Corpuscular Volume 86 fL (79-100) Mean Corpuscular Hemoglobin 28 pg (25-35) Mean Corpuscular Hemoglobin Concent 33 g/dL (31-37) Red Cell Distribution Width 18.6 % (11.5-14.5) Platelet Count 215 x10^3/uL (140-400) Neutrophils (%) (Auto) 94 % (31-73) Lymphocytes (%) (Auto) 2 % (24-48) Monocytes (%) (Auto) 3 % (0-9) Eosinophils (%) (Auto) 0 % (0-3) Basophils (%) (Auto) 1 % (0-3) Neutrophils # (Auto) 20.3 x10^3uL (1.8-7.7) Lymphocytes # (Auto) 0.5 x10^3/uL (1.0-4.8) Monocytes # (Auto) 0.7 x10^3/uL (0.0-1.1) Eosinophils # (Auto) 0.0 x10^3/uL (0.0-0.7) Basophils # (Auto) 0.1 x10^3/uL (0.0-0.2) Segmented Neutrophils % 86 % (35-66) Band Neutrophils % 8 % (0-9) Lymphocytes % 2 % (24-48) Monocytes % 4 % (0-10) Platelet Estimate Adequate (ADEQUATE) Polychromasia Present Poikilocytosis Slight Anisocytosis Slight Tear Drop Cells Occ James Cells Few Acanthocytes Few Schistocytes Few Erythrocyte Sedimentation Rate 35 (0-25) Prothrombin Time 17.2 SEC (11.7-14.0) Prothromb Time International Ratio 1.5 (0.8-1.1) Sodium Level 131 mmol/L (136-145) Potassium Level 4.7 mmol/L (3.5-5.1) Chloride Level 96 mmol/L (98-107) Carbon Dioxide Level 24 mmol/L (21-32) Anion Gap 11 (6-14) Blood Urea Nitrogen 36 mg/dL (7-20) Creatinine 5.6 mg/dL (0.6-1.0) Estimated GFR (Cockcroft-Gault) 9.5 Glucose Level 93 mg/dL (70-99) Calcium Level 9.3 mg/dL (8.5-10.1) Troponin I Quantitative 0.046 ng/mL (0.000-0.055) C-Reactive Protein, Quantitative 173.6 mg/L (0-3.3) Procalcitonin 2.05 ng/mL (0.00-0.10) Lactic Acid Level 0.8 mmol/L (0.4-2.0) Glucose (Fingerstick) 84 mg/dL (70-99) Test 01/08/18 21:01 01/09/18 04:00 01/09/18 04:30 01/09/18 06:56 Glucose (Fingerstick) 87 mg/dL (70-99) 74 mg/dL (70-99) Sodium Level 133 mmol/L (136-145) Potassium Level 5.1 mmol/L (3.5-5.1) Chloride Level 97 mmol/L (98-107) Carbon Dioxide Level 25 mmol/L (21-32) Anion Gap 11 (6-14) Blood Urea Nitrogen 39 mg/dL (7-20) Creatinine 6.1 mg/dL (0.6-1.0) Estimated GFR (Cockcroft-Gault) 8.6 Glucose Level 77 mg/dL (70-99) Calcium Level 9.2 mg/dL (8.5-10.1) White Blood Count 21.7 x10^3/uL (4.0-11.0) Red Blood Count 2.19 x10^6/uL (3.50-5.40) Hemoglobin 6.4 g/dL (12.0-15.5) Hematocrit 18.8 % (36.0-47.0) Mean Corpuscular Volume 86 fL (79-100) Mean Corpuscular Hemoglobin 29 pg (25-35) Mean Corpuscular Hemoglobin Concent 34 g/dL (31-37) Red Cell Distribution Width 18.8 % (11.5-14.5) Platelet Count 138 x10^3/uL (140-400) Neutrophils (%) (Auto) 94 % (31-73) Lymphocytes (%) (Auto) 2 % (24-48) Monocytes (%) (Auto) 5 % (0-9) Eosinophils (%) (Auto) 0 % (0-3) Basophils (%) (Auto) 0 % (0-3) Neutrophils # (Auto) 20.3 x10^3uL (1.8-7.7) Lymphocytes # (Auto) 0.4 x10^3/uL (1.0-4.8) Monocytes # (Auto) 1.0 x10^3/uL (0.0-1.1) Eosinophils # (Auto) 0.0 x10^3/uL (0.0-0.7) Basophils # (Auto) 0.0 x10^3/uL (0.0-0.2) Review of Systems Review of Systems too Weak, anxious, seemingly confused to participate with full ROS Assessment and Plan Assessmemt and Plan Problems Medical Problems: (1) End stage renal disease Status: Acute Comment Review of Relevant I have reviewed the following items richard (where applicable) has been applied. Labs Laboratory Tests Test 01/08/18 12:35 01/08/18 14:32 01/08/18 15:30 01/08/18 18:06 White Blood Count 21.7 x10^3/uL (4.0-11.0) Red Blood Count 2.58 x10^6/uL (3.50-5.40) Hemoglobin 7.3 g/dL (12.0-15.5) Hematocrit 22.3 % (36.0-47.0) Mean Corpuscular Volume 86 fL (79-100) Mean Corpuscular Hemoglobin 28 pg (25-35) Mean Corpuscular Hemoglobin Concent 33 g/dL (31-37) Red Cell Distribution Width 18.6 % (11.5-14.5) Platelet Count 215 x10^3/uL (140-400) Neutrophils (%) (Auto) 94 % (31-73) Lymphocytes (%) (Auto) 2 % (24-48) Monocytes (%) (Auto) 3 % (0-9) Eosinophils (%) (Auto) 0 % (0-3) Basophils (%) (Auto) 1 % (0-3) Neutrophils # (Auto) 20.3 x10^3uL (1.8-7.7) Lymphocytes # (Auto) 0.5 x10^3/uL (1.0-4.8) Monocytes # (Auto) 0.7 x10^3/uL (0.0-1.1) Eosinophils # (Auto) 0.0 x10^3/uL (0.0-0.7) Basophils # (Auto) 0.1 x10^3/uL (0.0-0.2) Segmented Neutrophils % 86 % (35-66) Band Neutrophils % 8 % (0-9) Lymphocytes % 2 % (24-48) Monocytes % 4 % (0-10) Platelet Estimate Adequate (ADEQUATE) Polychromasia Present Poikilocytosis Slight Anisocytosis Slight Tear Drop Cells Occ James Cells Few Acanthocytes Few Schistocytes Few Erythrocyte Sedimentation Rate 35 (0-25) Prothrombin Time 17.2 SEC (11.7-14.0) Prothromb Time International Ratio 1.5 (0.8-1.1) Sodium Level 131 mmol/L (136-145) Potassium Level 4.7 mmol/L (3.5-5.1) Chloride Level 96 mmol/L (98-107) Carbon Dioxide Level 24 mmol/L (21-32) Anion Gap 11 (6-14) Blood Urea Nitrogen 36 mg/dL (7-20) Creatinine 5.6 mg/dL (0.6-1.0) Estimated GFR (Cockcroft-Gault) 9.5 Glucose Level 93 mg/dL (70-99) Calcium Level 9.3 mg/dL (8.5-10.1) Troponin I Quantitative 0.046 ng/mL (0.000-0.055) C-Reactive Protein, Quantitative 173.6 mg/L (0-3.3) Procalcitonin 2.05 ng/mL (0.00-0.10) Lactic Acid Level 0.8 mmol/L (0.4-2.0) Glucose (Fingerstick) 84 mg/dL (70-99) Test 01/08/18 21:01 01/09/18 04:00 01/09/18 04:30 01/09/18 06:56 Glucose (Fingerstick) 87 mg/dL (70-99) 74 mg/dL (70-99) Sodium Level 133 mmol/L (136-145) Potassium Level 5.1 mmol/L (3.5-5.1) Chloride Level 97 mmol/L (98-107) Carbon Dioxide Level 25 mmol/L (21-32) Anion Gap 11 (6-14) Blood Urea Nitrogen 39 mg/dL (7-20) Creatinine 6.1 mg/dL (0.6-1.0) Estimated GFR (Cockcroft-Gault) 8.6 Glucose Level 77 mg/dL (70-99) Calcium Level 9.2 mg/dL (8.5-10.1) White Blood Count 21.7 x10^3/uL (4.0-11.0) Red Blood Count 2.19 x10^6/uL (3.50-5.40) Hemoglobin 6.4 g/dL (12.0-15.5) Hematocrit 18.8 % (36.0-47.0) Mean Corpuscular Volume 86 fL (79-100) Mean Corpuscular Hemoglobin 29 pg (25-35) Mean Corpuscular Hemoglobin Concent 34 g/dL (31-37) Red Cell Distribution Width 18.8 % (11.5-14.5) Platelet Count 138 x10^3/uL (140-400) Neutrophils (%) (Auto) 94 % (31-73) Lymphocytes (%) (Auto) 2 % (24-48) Monocytes (%) (Auto) 5 % (0-9) Eosinophils (%) (Auto) 0 % (0-3) Basophils (%) (Auto) 0 % (0-3) Neutrophils # (Auto) 20.3 x10^3uL (1.8-7.7) Lymphocytes # (Auto) 0.4 x10^3/uL (1.0-4.8) Monocytes # (Auto) 1.0 x10^3/uL (0.0-1.1) Eosinophils # (Auto) 0.0 x10^3/uL (0.0-0.7) Basophils # (Auto) 0.0 x10^3/uL (0.0-0.2) Laboratory Tests Test 01/08/18 12:35 01/08/18 14:32 01/08/18 15:30 01/08/18 18:06 White Blood Count 21.7 x10^3/uL (4.0-11.0) Red Blood Count 2.58 x10^6/uL (3.50-5.40) Hemoglobin 7.3 g/dL (12.0-15.5) Hematocrit 22.3 % (36.0-47.0) Mean Corpuscular Volume 86 fL (79-100) Mean Corpuscular Hemoglobin 28 pg (25-35) Mean Corpuscular Hemoglobin Concent 33 g/dL (31-37) Red Cell Distribution Width 18.6 % (11.5-14.5) Platelet Count 215 x10^3/uL (140-400) Neutrophils (%) (Auto) 94 % (31-73) Lymphocytes (%) (Auto) 2 % (24-48) Monocytes (%) (Auto) 3 % (0-9) Eosinophils (%) (Auto) 0 % (0-3) Basophils (%) (Auto) 1 % (0-3) Neutrophils # (Auto) 20.3 x10^3uL (1.8-7.7) Lymphocytes # (Auto) 0.5 x10^3/uL (1.0-4.8) Monocytes # (Auto) 0.7 x10^3/uL (0.0-1.1) Eosinophils # (Auto) 0.0 x10^3/uL (0.0-0.7) Basophils # (Auto) 0.1 x10^3/uL (0.0-0.2) Segmented Neutrophils % 86 % (35-66) Band Neutrophils % 8 % (0-9) Lymphocytes % 2 % (24-48) Monocytes % 4 % (0-10) Platelet Estimate Adequate (ADEQUATE) Polychromasia Present Poikilocytosis Slight Anisocytosis Slight Tear Drop Cells Occ [place] Cells Few Acanthocytes Few Schistocytes Few Erythrocyte Sedimentation Rate 35 (0-25) Prothrombin Time 17.2 SEC (11.7-14.0) Prothromb Time International Ratio 1.5 (0.8-1.1) Sodium Level 131 mmol/L (136-145) Potassium Level 4.7 mmol/L (3.5-5.1) Chloride Level 96 mmol/L (98-107) Carbon Dioxide Level 24 mmol/L (21-32) Anion Gap 11 (6-14) Blood Urea Nitrogen 36 mg/dL (7-20) Creatinine 5.6 mg/dL (0.6-1.0) Estimated GFR (Cockcroft-Gault) 9.5 Glucose Level 93 mg/dL (70-99) Calcium Level 9.3 mg/dL (8.5-10.1) Troponin I Quantitative 0.046 ng/mL (0.000-0.055) C-Reactive Protein, Quantitative 173.6 mg/L (0-3.3) Procalcitonin 2.05 ng/mL (0.00-0.10) Lactic Acid Level 0.8 mmol/L (0.4-2.0) Glucose (Fingerstick) 84 mg/dL (70-99) Test 01/08/18 21:01 01/09/18 04:00 01/09/18 04:30 01/09/18 06:56 Glucose (Fingerstick) 87 mg/dL (70-99) 74 mg/dL (70-99) Sodium Level 133 mmol/L (136-145) Potassium Level 5.1 mmol/L (3.5-5.1) Chloride Level 97 mmol/L (98-107) Carbon Dioxide Level 25 mmol/L (21-32) Anion Gap 11 (6-14) Blood Urea Nitrogen 39 mg/dL (7-20) Creatinine 6.1 mg/dL (0.6-1.0) Estimated GFR (Cockcroft-Gault) 8.6 Glucose Level 77 mg/dL (70-99) Calcium Level 9.2 mg/dL (8.5-10.1) White Blood Count 21.7 x10^3/uL (4.0-11.0) Red Blood Count 2.19 x10^6/uL (3.50-5.40) Hemoglobin 6.4 g/dL (12.0-15.5) Hematocrit 18.8 % (36.0-47.0) Mean Corpuscular Volume 86 fL (79-100) Mean Corpuscular Hemoglobin 29 pg (25-35) Mean Corpuscular Hemoglobin Concent 34 g/dL (31-37) Red Cell Distribution Width 18.8 % (11.5-14.5) Platelet Count 138 x10^3/uL (140-400) Neutrophils (%) (Auto) 94 % (31-73) Lymphocytes (%) (Auto) 2 % (24-48) Monocytes (%) (Auto) 5 % (0-9) Eosinophils (%) (Auto) 0 % (0-3) Basophils (%) (Auto) 0 % (0-3) Neutrophils # (Auto) 20.3 x10^3uL (1.8-7.7) Lymphocytes # (Auto) 0.4 x10^3/uL (1.0-4.8) Monocytes # (Auto) 1.0 x10^3/uL (0.0-1.1) Eosinophils # (Auto) 0.0 x10^3/uL (0.0-0.7) Basophils # (Auto) 0.0 x10^3/uL (0.0-0.2) Medications Current Medications Morphine Sulfate (Morphine Sulfate) 6 mg 1X ONCE IV Last administered on 13:35; Start 01/08/18 at 13:00; Stop 01/08/18 at 13:01; Status DC Vancomycin HCl (Vanco Per Pharmacy) 1 each PRN DAILY PRN MC SEE COMMENTS Last administered on 01/08/18at 16:16; Start 01/08/18 at 15:30 Vancomycin HCl 1.75 gm/Sodium Chloride 500 ml @ 250 mls/hr 1X ONCE IV Last administered on 01/08/18at 15:39; Start 01/08/18 at 15:30; Stop 01/08/18 at 17:29; Status DC Ondansetron HCl (Zofran) 4 mg PRN Q8HRS PRN IV NAUSEA/VOMITING Last administered on 01/08/18 21:44; Start 01/08/18 at 16:00; Stop 01/09/18 at 08:45; Status DC Morphine Sulfate (Morphine Sulfate) 2 mg PRN Q2HR PRN IV PAIN Last administered on 01/08/18at 17:06; Start 01/08/18 at 16:00; Stop 01/09/18 at 15:59 Vancomycin HCl (Vancomycin Random Level) 1 each 1X ONCE MC ; Start 01/10/18 at 05:00; Stop 01/10/18 at 05:01 Lorazepam (Ativan) 1 mg PRN Q4HRS PRN IV ANXIETY / AGITATION Last administered on 01/08/18at 18:09; Start 01/08/18 at 18:00 Acetaminophen (Tylenol) 650 mg PRN Q6HRS PRN PO FEVER; Start 01/08/18 at 18:00 Iohexol (Omnipaque 300 Mg/ml) 75 ml 1X ONCE IV Last administered on 01/08/18at 19:35; Start 01/08/18 at 18:15; Stop 01/08/18 at 18:16; Status DC Ondansetron HCl (Zofran) 4 mg PRN Q6HRS PRN IV NAUSEA/VOMITING Last administered on 01/09/18at 09:02; Start 01/09/18 at 08:45 Sodium Chloride 1,000 ml @ 100 mls/hr Q10H IV ; Start 01/09/18 at 09:00 Acetaminophen (Tylenol) 1,000 mg TID PO ; Start 01/09/18 at 09:00 Carvedilol (Coreg) 12.5 mg BIDWMEALS PO ; Start 01/09/18 at 09:00 Vitamin D (Vitamin D3) 1,000 unit DAILY PO ; Start 01/09/18 at 09:00 Diphenhydramine HCl (Benadryl) 25 mg PRN Q6HRS PRN PO ITCHING; Start 01/09/18 at 08:45 Vitamin B Complex/ Vitamin C (Anneliese-Donny) 1 tab DAILY PO ; Start 01/09/18 at 09:00 Isosorbide Mononitrate (Imdur) 120 mg DAILY PO ; Start 01/09/18 at 09:00 Amylase/Lipase/ Protease (Zenpep 10,000) 2 cap TIDWMEALS PO ; Start 01/09/18 at 09:00 Nitroglycerin (Nitrostat) 0.4 mg PRN Q5MIN PRN SL CHEST PAIN; Start 01/09/18 at 08:45 Pantoprazole Sodium (Protonix) 40 mg DAILYAC PO ; Start 01/09/18 at 09:00 Non-Formulary Medication (Insulin Aspart (Novolog Flexpen)) TIDAC SQ ; Start at 11:30; Status UNV Losartan Potassium (Cozaar) 100 mg DAILY PO ; Start 01/09/18 at 09:00 Minoxidil (Loniten) 2.5 mg BID PO ; Start 01/09/18 at 09:00 Montelukast Sodium (Singulair) 10 mg QHS PO ; Start 01/09/18 at 21:00 Polyethylene Glycol (miraLAX PACKET) 17 gm DAILY PO ; Start 01/09/18 at 09:00 Sertraline HCl (Zoloft) 100 mg DAILY PO ; Start 01/09/18 at 09:00 Calcium Acetate (Phoslo) 1,334 mg TIDWMEALS PO ; Start 01/09/18 at 09:00 Insulin Human Lispro (HumaLOG) 0-5 UNITS TIDAC SQ ; Start 01/09/18 at 11:30 Magnesium Sulfate 50 ml @ 25 mls/hr PRN DAILY PRN IV for Mag < 1.7 on am labs; Start 01/09/18 at 10:15 Darbepoetin Ty (Aranesp) 60 mcg WEEKLYHS SQ ; Start 01/09/18 at 21:00 Active Scripts Active Vitamin D3 (Cholecalciferol (Vitamin D3)) 1,000 Unit Tablet 1 Tab PO DAILY [Calcium Acetate] 667 MG Capsule 1,334 Mg PO TIDWMEALS Mapap (Acetaminophen) 500 Mg Tablet 1,000 Mg PO TID Carvedilol 12.5 Mg Tablet 12.5 Mg PO BIDWMEALS Minoxidil 2.5 Mg Tablet 2.5 Mg PO BID Isosorbide Mononitrate Er (Isosorbide Mononitrate) 30 Mg Tab.er.24h 120 Mg PO DAILY Montelukast Sodium Tablet (Montelukast Sodium) 10 Mg Tablet 10 Mg PO QHS Polyethylene Glycol 3350 2,500 Gm Powder 17 Gm PO DAILY Novolog Flexpen (Insulin Aspart) 100 Unit/1 Ml Insuln.pen 0 Units SQ TIDAC Take sub q tid ac: BS 151-200=2 unit, 201-250=3 unit, [id number], BS 301-350=6 unit, BS 351-400 =8 unit. BS>401 call MD Renetta Busch 10,000 Units Capsule (Lipase/Protease/Amylase) 1 Each Capsule. 2 Cap PO TIDWMEALS TAke 2 cap tid with meals Nephro-Donny Tablet (Folic Acid/Vitamin B Comp W-C) 0.8 Mg Tablet 1 Tab PO DAILY Benadryl (Diphenhydramine Hcl) 25 Mg Capsule 25 Mg PO PRN Q6HRS PRN Reported Nitrostat (Nitroglycerin) 0.4 Mg Tab.subl 0.4 Mg SL PRN Q5MIN PRN Plavix (Clopidogrel Bisulfate) 75 Mg Tablet 1 Tab PO DAILY Zoloft (Sertraline Hcl) 100 Mg Tablet 1 Tab PO DAILY Pantoprazole Sodium 40 Mg Tablet. 1 Tab PO DAILY Losartan Potassium 100 Mg Tablet 100 Mg PO DAILY Aspir 81 (Aspirin) 81 Mg Tablet. 81 Mg PO DAILY Vitals/I & O Vital Sign - Last 24 Hours 01/08/18 01/08/18 01/08/18 01/08/18 11:59 12:10 12:21 12:40 Temp 98.8 98.8 Pulse 73 78 76 76 Resp 22 B/P (MAP) 146/70 (95) 186/77 (113) 176/77 (110) 181/79 (113) Pulse Ox 97 99 94 95 O2 Delivery Room Air Room Air Room Air Room Air 01/08/18 01/08/18 01/08/18 01/08/18 13:10 13:35 13:40 14:10 Pulse 74 72 72 Resp 23 18 20 19 B/P (MAP) 145/70 (95) 115/59 (77) 117/59 (78) Pulse Ox 98 97 96 96 O2 Delivery Room Air Room Air Room Air Room Air 01/08/18 01/08/18 01/08/18 01/08/18 14:40 15:40 16:10 17:06 Pulse 70 68 70 Resp 16 20 20 20 B/P (MAP) 116/58 (77) 144/88 (106) 130/63 (85) Pulse Ox 97 97 98 98 O2 Delivery Room Air Room Air Room Air Room Air 01/08/18 01/08/18 01/08/18 01/08/18 17:30 17:35 19:00 19:05 Temp 98.6 98.6 Pulse 70 Resp 19 B/P (MAP) 139/47 (77) Pulse Ox 98 98 O2 Delivery Room Air Room Air Room Air 01/08/18 01/08/18 01/09/18 01/09/18 20:00 23:44 03:30 07:00 Temp 98.7 100.2 99.5 98.7 100.2 99.5 Pulse 75 74 73 Resp 20 21 22 B/P (MAP) 138/51 (80) 102/52 (69) 101/43 (62) Pulse Ox 98 97 95 O2 Delivery Room Air Room Air Room Air Room Air 01/09/18 01/09/18 07:30 10:39 Temp 99.9 99.9 Pulse 68 Resp 20 B/P (MAP) 115/57 (76) Pulse Ox 97 O2 Delivery Room Air Room Air Intake and Output 01/08/18 01/08/18 01/09/18 15:00 23:00 07:00 Intake Total 0 ml Output Total 0 ml Balance 0 ml KATHERINE MORALEZ MD Jan 09, 2018 10:59
[2018-01-09] MEDS ORDERED: PIP/TAZO PER PHARMACY MC PRN (11:15)
[2018-01-09] MEDS: INSULIN LISPRO 300 UNITS/3 ML INSULN.PEN. SQ SCH ×2 (11:30→16:30)
[2018-01-09] MEDS ORDERED: NON FORMULARY ITEM (Insulin Aspart (Novolog Flexpen) 0 UNITS) SQ SCH (11:30)
--- NOTE | 2018-01-09 11:41 | PDOC ---
Infectious Disease Note Vital Sign Vital Signs Vital Signs Date Time Temp Pulse Resp B/P (MAP) Pulse Ox O2 Delivery O2 Flow Rate FiO2 01/09/18 10:39 99.9 68 20 115/57 (76) 97 Room Air 99.9 Labs Lab Laboratory Tests Test 01/08/18 12:35 01/08/18 14:32 01/08/18 15:30 01/08/18 18:06 White Blood Count 21.7 x10^3/uL (4.0-11.0) Red Blood Count 2.58 x10^6/uL (3.50-5.40) Hemoglobin 7.3 g/dL (12.0-15.5) Hematocrit 22.3 % (36.0-47.0) Mean Corpuscular Volume 86 fL (79-100) Mean Corpuscular Hemoglobin 28 pg (25-35) Mean Corpuscular Hemoglobin Concent 33 g/dL (31-37) Red Cell Distribution Width 18.6 % (11.5-14.5) Platelet Count 215 x10^3/uL (140-400) Neutrophils (%) (Auto) 94 % (31-73) Lymphocytes (%) (Auto) 2 % (24-48) Monocytes (%) (Auto) 3 % (0-9) Eosinophils (%) (Auto) 0 % (0-3) Basophils (%) (Auto) 1 % (0-3) Neutrophils # (Auto) 20.3 x10^3uL (1.8-7.7) Lymphocytes # (Auto) 0.5 x10^3/uL (1.0-4.8) Monocytes # (Auto) 0.7 x10^3/uL (0.0-1.1) Eosinophils # (Auto) 0.0 x10^3/uL (0.0-0.7) Basophils # (Auto) 0.1 x10^3/uL (0.0-0.2) Segmented Neutrophils % 86 % (35-66) Band Neutrophils % 8 % (0-9) Lymphocytes % 2 % (24-48) Monocytes % 4 % (0-10) Platelet Estimate Adequate (ADEQUATE) Polychromasia Present Poikilocytosis Slight Anisocytosis Slight Tear Drop Cells Occ [place] Cells Few Acanthocytes Few Schistocytes Few Erythrocyte Sedimentation Rate 35 (0-25) Prothrombin Time 17.2 SEC (11.7-14.0) Prothromb Time International Ratio 1.5 (0.8-1.1) Sodium Level 131 mmol/L (136-145) Potassium Level 4.7 mmol/L (3.5-5.1) Chloride Level 96 mmol/L (98-107) Carbon Dioxide Level 24 mmol/L (21-32) Anion Gap 11 (6-14) Blood Urea Nitrogen 36 mg/dL (7-20) Creatinine 5.6 mg/dL (0.6-1.0) Estimated GFR (Cockcroft-Gault) 9.5 Glucose Level 93 mg/dL (70-99) Calcium Level 9.3 mg/dL (8.5-10.1) Troponin I Quantitative 0.046 ng/mL (0.000-0.055) C-Reactive Protein, Quantitative 173.6 mg/L (0-3.3) Procalcitonin 2.05 ng/mL (0.00-0.10) Lactic Acid Level 0.8 mmol/L (0.4-2.0) Glucose (Fingerstick) 84 mg/dL (70-99) Test 01/08/18 21:01 01/09/18 04:00 01/09/18 04:30 01/09/18 06:56 Glucose (Fingerstick) 87 mg/dL (70-99) 74 mg/dL (70-99) Sodium Level 133 mmol/L (136-145) Potassium Level 5.1 mmol/L (3.5-5.1) Chloride Level 97 mmol/L (98-107) Carbon Dioxide Level 25 mmol/L (21-32) Anion Gap 11 (6-14) Blood Urea Nitrogen 39 mg/dL (7-20) Creatinine 6.1 mg/dL (0.6-1.0) Estimated GFR (Cockcroft-Gault) 8.6 Glucose Level 77 mg/dL (70-99) Calcium Level 9.2 mg/dL (8.5-10.1) White Blood Count 21.7 x10^3/uL (4.0-11.0) Red Blood Count 2.19 x10^6/uL (3.50-5.40) Hemoglobin 6.4 g/dL (12.0-15.5) Hematocrit 18.8 % (36.0-47.0) Mean Corpuscular Volume 86 fL (79-100) Mean Corpuscular Hemoglobin 29 pg (25-35) Mean Corpuscular Hemoglobin Concent 34 g/dL (31-37) Red Cell Distribution Width 18.8 % (11.5-14.5) Platelet Count 138 x10^3/uL (140-400) Neutrophils (%) (Auto) 94 % (31-73) Lymphocytes (%) (Auto) 2 % (24-48) Monocytes (%) (Auto) 5 % (0-9) Eosinophils (%) (Auto) 0 % (0-3) Basophils (%) (Auto) 0 % (0-3) Neutrophils # (Auto) 20.3 x10^3uL (1.8-7.7) Lymphocytes # (Auto) 0.4 x10^3/uL (1.0-4.8) Monocytes # (Auto) 1.0 x10^3/uL (0.0-1.1) Eosinophils # (Auto) 0.0 x10^3/uL (0.0-0.7) Basophils # (Auto) 0.0 x10^3/uL (0.0-0.2) Objective Assessment Leukocytosis - no recent steroids or abx reported per [facility] Fever Pressure wounds sacral and left ischial areas, POA Left pleural effusion -h/o thoracentesis on 12/23 w/ neg cultures Acute anemia CKD/HD via AV fistula s/p CABG December 01 at [facility] Chronic heart failure DM II h/o CVA w/ left-sided weakness - chair bound Plan Plan of Care continue vancomycin Add Zosyn f/u am labs and BC Consult wound care team Local wound care and offloading D/w RN Thank you [phone] Patient seen, examined, I agree with above. Assessment and plan was formulated with [employer] CONSULTANT. HUYEN ELIZONDO APRN Jan 09, 2018 11:41 HERMANN BA MD Jan 09, 2018 16:13
[2018-01-09] MEDS: LIPASE/PROTEAS/AMYLAS 10/32/42 CAPSULE.DR. PO SCH ×3 (12:00→18:08)
[2018-01-09] MEDS: PIPERACILLIN/TAZOBACTAM 2.25 GM in IV NORMAL SALINE 50ML 50 ML IV SCH ×2 (12:00→21:31)
[2018-01-09] MEDS: CALCIUM ACETATE 667 MG CAPSULE PO SCH ×3 (12:00→18:08)
[2018-01-09] MEDS: VANCOMYCIN PER PHARMACY MC PRN (12:22)
[2018-01-09] MEDS: SERTRALINE 50 MG TABLET. PO SCH (12:47)
[2018-01-09] MEDS: CHOLECALCIFEROL (VITAMIN D3) 1,000 UNIT TABLET PO SCH (12:47)
[2018-01-09] MEDS: MINOXIDIL 2.5 MG TABLET PO SCH ×2 (12:48→21:30)
[2018-01-09] MEDS: PANTOPRAZOLE 40 MG TABLET.DR. PO SCH (12:49)
[2018-01-09] MEDS: ISOSORBIDE MONONITRATE ER 30 MG TAB.ER.24H PO SCH (12:49)
[2018-01-09] MEDS: FOLIC/VIT B COMP W-C (RENAL) TABLET. PO SCH (12:49)
[2018-01-09] MEDS: ACETAMINOPHEN 500 MG TABLET PO SCH ×3 (12:56→21:29)
--- NOTE | 2018-01-09 14:09 | PDOC ---
PULMONARY PROGRESS NOTES Vitals Vital Signs Date Time Temp Pulse Resp B/P (MAP) Pulse Ox O2 Delivery O2 Flow Rate FiO2 01/09/18 13:59 98.9 70 22 126/78 98.9 01/09/18 10:39 97 Room Air General: No acute distress, Confused HEENT: Other Lungs: Crackles, Other (decreased breath sounds bases) Cardiovascular: S1, S2 Abdomen: Soft, Non-tender Extremities: No Edema Labs Laboratory Tests Test 01/08/18 12:35 01/08/18 14:32 01/08/18 15:30 01/08/18 18:06 White Blood Count 21.7 x10^3/uL (4.0-11.0) Red Blood Count 2.58 x10^6/uL (3.50-5.40) Hemoglobin 7.3 g/dL (12.0-15.5) Hematocrit 22.3 % (36.0-47.0) Mean Corpuscular Volume 86 fL (79-100) Mean Corpuscular Hemoglobin 28 pg (25-35) Mean Corpuscular Hemoglobin Concent 33 g/dL (31-37) Red Cell Distribution Width 18.6 % (11.5-14.5) Platelet Count 215 x10^3/uL (140-400) Neutrophils (%) (Auto) 94 % (31-73) Lymphocytes (%) (Auto) 2 % (24-48) Monocytes (%) (Auto) 3 % (0-9) Eosinophils (%) (Auto) 0 % (0-3) Basophils (%) (Auto) 1 % (0-3) Neutrophils # (Auto) 20.3 x10^3uL (1.8-7.7) Lymphocytes # (Auto) 0.5 x10^3/uL (1.0-4.8) Monocytes # (Auto) 0.7 x10^3/uL (0.0-1.1) Eosinophils # (Auto) 0.0 x10^3/uL (0.0-0.7) Basophils # (Auto) 0.1 x10^3/uL (0.0-0.2) Segmented Neutrophils % 86 % (35-66) Band Neutrophils % 8 % (0-9) Lymphocytes % 2 % (24-48) Monocytes % 4 % (0-10) Platelet Estimate Adequate (ADEQUATE) Polychromasia Present Poikilocytosis Slight Anisocytosis Slight Tear Drop Cells Occ [place] Cells Few Acanthocytes Few Schistocytes Few Erythrocyte Sedimentation Rate 35 (0-25) Prothrombin Time 17.2 SEC (11.7-14.0) Prothromb Time International Ratio 1.5 (0.8-1.1) Sodium Level 131 mmol/L (136-145) Potassium Level 4.7 mmol/L (3.5-5.1) Chloride Level 96 mmol/L (98-107) Carbon Dioxide Level 24 mmol/L (21-32) Anion Gap 11 (6-14) Blood Urea Nitrogen 36 mg/dL (7-20) Creatinine 5.6 mg/dL (0.6-1.0) Estimated GFR (Cockcroft-Gault) 9.5 Glucose Level 93 mg/dL (70-99) Calcium Level 9.3 mg/dL (8.5-10.1) Troponin I Quantitative 0.046 ng/mL (0.000-0.055) C-Reactive Protein, Quantitative 173.6 mg/L (0-3.3) Procalcitonin 2.05 ng/mL (0.00-0.10) Lactic Acid Level 0.8 mmol/L (0.4-2.0) Glucose (Fingerstick) 84 mg/dL (70-99) Test 01/08/18 21:01 01/09/18 04:00 01/09/18 04:30 01/09/18 06:56 Glucose (Fingerstick) 87 mg/dL (70-99) 74 mg/dL (70-99) Sodium Level 133 mmol/L (136-145) Potassium Level 5.1 mmol/L (3.5-5.1) Chloride Level 97 mmol/L (98-107) Carbon Dioxide Level 25 mmol/L (21-32) Anion Gap 11 (6-14) Blood Urea Nitrogen 39 mg/dL (7-20) Creatinine 6.1 mg/dL (0.6-1.0) Estimated GFR (Cockcroft-Gault) 8.6 Glucose Level 77 mg/dL (70-99) Calcium Level 9.2 mg/dL (8.5-10.1) White Blood Count 21.7 x10^3/uL (4.0-11.0) Red Blood Count 2.19 x10^6/uL (3.50-5.40) Hemoglobin 6.4 g/dL (12.0-15.5) Hematocrit 18.8 % (36.0-47.0) Mean Corpuscular Volume 86 fL (79-100) Mean Corpuscular Hemoglobin 29 pg (25-35) Mean Corpuscular Hemoglobin Concent 34 g/dL (31-37) Red Cell Distribution Width 18.8 % (11.5-14.5) Platelet Count 138 x10^3/uL (140-400) Neutrophils (%) (Auto) 94 % (31-73) Lymphocytes (%) (Auto) 2 % (24-48) Monocytes (%) (Auto) 5 % (0-9) Eosinophils (%) (Auto) 0 % (0-3) Basophils (%) (Auto) 0 % (0-3) Neutrophils # (Auto) 20.3 x10^3uL (1.8-7.7) Lymphocytes # (Auto) 0.4 x10^3/uL (1.0-4.8) Monocytes # (Auto) 1.0 x10^3/uL (0.0-1.1) Eosinophils # (Auto) 0.0 x10^3/uL (0.0-0.7) Basophils # (Auto) 0.0 x10^3/uL (0.0-0.2) Laboratory Tests Test 01/08/18 14:32 01/08/18 15:30 01/08/18 18:06 01/08/18 21:01 Sodium Level 131 mmol/L (136-145) Potassium Level 4.7 mmol/L (3.5-5.1) Chloride Level 96 mmol/L (98-107) Carbon Dioxide Level 24 mmol/L (21-32) Anion Gap 11 (6-14) Blood Urea Nitrogen 36 mg/dL (7-20) Creatinine 5.6 mg/dL (0.6-1.0) Estimated GFR (Cockcroft-Gault) 9.5 Glucose Level 93 mg/dL (70-99) Calcium Level 9.3 mg/dL (8.5-10.1) Troponin I Quantitative 0.046 ng/mL (0.000-0.055) C-Reactive Protein, Quantitative 173.6 mg/L (0-3.3) Procalcitonin 2.05 ng/mL (0.00-0.10) Lactic Acid Level 0.8 mmol/L (0.4-2.0) Glucose (Fingerstick) 84 mg/dL (70-99) 87 mg/dL (70-99) Test 01/09/18 04:00 01/09/18 04:30 01/09/18 06:56 Sodium Level 133 mmol/L (136-145) Potassium Level 5.1 mmol/L (3.5-5.1) Chloride Level 97 mmol/L (98-107) Carbon Dioxide Level 25 mmol/L (21-32) Anion Gap 11 (6-14) Blood Urea Nitrogen 39 mg/dL (7-20) Creatinine 6.1 mg/dL (0.6-1.0) Estimated GFR (Cockcroft-Gault) 8.6 Glucose Level 77 mg/dL (70-99) Calcium Level 9.2 mg/dL (8.5-10.1) White Blood Count 21.7 x10^3/uL (4.0-11.0) Red Blood Count 2.19 x10^6/uL (3.50-5.40) Hemoglobin 6.4 g/dL (12.0-15.5) Hematocrit 18.8 % (36.0-47.0) Mean Corpuscular Volume 86 fL (79-100) Mean Corpuscular Hemoglobin 29 pg (25-35) Mean Corpuscular Hemoglobin Concent 34 g/dL (31-37) Red Cell Distribution Width 18.8 % (11.5-14.5) Platelet Count 138 x10^3/uL (140-400) Neutrophils (%) (Auto) 94 % (31-73) Lymphocytes (%) (Auto) 2 % (24-48) Monocytes (%) (Auto) 5 % (0-9) Eosinophils (%) (Auto) 0 % (0-3) Basophils (%) (Auto) 0 % (0-3) Neutrophils # (Auto) 20.3 x10^3uL (1.8-7.7) Lymphocytes # (Auto) 0.4 x10^3/uL (1.0-4.8) Monocytes # (Auto) 1.0 x10^3/uL (0.0-1.1) Eosinophils # (Auto) 0.0 x10^3/uL (0.0-0.7) Basophils # (Auto) 0.0 x10^3/uL (0.0-0.2) Glucose (Fingerstick) 74 mg/dL (70-99) Medications Active Scripts Medications Dose Route/Sig Max Daily Dose Days Date Category Dose Instructions Vitamin D3 (Cholecalciferol (Vitamin D3)) 1,000 Unit Tablet 1 Tab PO DAILY 12/28/17 Rx [Calcium Acetate] 667 MG Capsule 1,334 Mg PO TIDWMEALS 12/28/17 Rx Mapap (Acetaminophen) 500 Mg Tablet 1,000 Mg PO TID 12/28/17 Rx Carvedilol 12.5 Mg Tablet 12.5 Mg PO BIDWMEALS 12/28/17 Rx Minoxidil 2.5 Mg Tablet 2.5 Mg PO BID 07/19/17 Rx Isosorbide Mononitrate Er (Isosorbide Mononitrate) 30 Mg Tab.er.24h 120 Mg PO DAILY 07/19/17 Rx Montelukast Sodium Tablet (Montelukast Sodium) 10 Mg Tablet 10 Mg PO QHS 05/07/17 Rx Polyethylene Glycol 3350 2,500 Gm Powder 17 Gm PO DAILY 04/09/17 Rx Nitrostat (Nitroglycerin) 0.4 Mg Tab.subl 0.4 Mg SL PRN Q5MIN PRN 12/30/16 Reported Plavix (Clopidogrel Bisulfate) 75 Mg Tablet 1 Tab PO DAILY 12/30/16 Reported Novolog Flexpen (Insulin Aspart) 100 Unit/1 Ml Insuln.pen 0 Units SQ TIDAC 11/26/16 Rx Take sub q tid ac: BS 151-200=2 unit, 201-250=3 unit, GO324-657, BS 301-350=6 unit, BS 351-400 =8 unit. BS>401 call MD Renetta Busch 10,000 Units Capsule (Lipase/Protease/Amylase) 1 Each Capsule. 2 Cap PO TIDWMEALS 11/26/16 Rx TAke 2 cap tid with meals Nephro-Donny Tablet (Folic Acid/Vitamin B Comp W-C) 0.8 Mg Tablet 1 Tab PO DAILY 07/07/16 Rx Benadryl (Diphenhydramine Hcl) 25 Mg Capsule 25 Mg PO PRN Q6HRS PRN 07/07/16 Rx Zoloft (Sertraline Hcl) 100 Mg Tablet 1 Tab PO DAILY 07/01/16 Reported Pantoprazole Sodium 40 Mg Tablet. 1 Tab PO DAILY 07/01/16 Reported Losartan Potassium 100 Mg Tablet 100 Mg PO DAILY 01/14/16 Reported Aspir 81 (Aspirin) 81 Mg Tablet.dr 81 Mg PO DAILY 01/14/16 Reported Impression . CHRONIC PLEURAL EFFUSION LEFT FEVER PER ID WILL FOLLOW NO NEED FOR THORACENTESIS AT THIS TIME UNLESS FEVER PERSIST SAM DURANT MD Jan 09, 2018 14:09
--- NOTE | 2018-01-09 14:44 | RAD ---
Examination: Lower Extremity Venous Doppler Ultrasound History: Bilateral leg pain, swelling Comparison: None Procedure: Warren scale, color flow 2D and spectal waveform analysis images are obtained with and without compression in the area of the common femoral vein, superficial femoral vein - femoral vein junction, main femoral vein (superficial femoral vein) and popliteal vein. Veins of the proximal calf are also imaged. Findings: There is normal duplex flow, color flow and compressibility of all visualized vein segments. No evidence of deep venous thrombus is present. Mild soft tissue edema identified in the bilateral lower legs. Impression: No evidence of DVT in the visualized bilateral lower extremity venous system. Electronically signed by: Bao Martinez MD (01/09/2018 2:41 PM) [facility]
[2018-01-09] MEDS: DARBEPOETIN ALFA 60 MCG/0.3 ML DISP.SYRIN. SQ SCH (21:29)
[2018-01-09] MEDS: MONTELUKAST SODIUM 10 MG TABLET. PO SCH (21:30)
--- NOTE | 2018-01-09 22:13 | CONS ---
DATE OF CONSULTATION: 01/09/2018 PRIMARY PHYSICIAN: Dr. Thomas. REASON FOR CONSULTATION: ESRD, dialysis. CONSULTING PHYSICIAN: Dr. Nirav Brunner from the ER. HISTORY OF PRESENT ILLNESS: The patient is a 57-year-old female who is followed by Dr. Hernandez. She dialyzes on Wednesday, , Wednesday at local dialysis unit. She has undergone a CABG at [facility] in the recent past. She has had incisional chest pain since and was at dialysis yesterday. Ten minutes of dialysis, she complained of chest pain and was sent to the ER for further evaluation. Her pain is felt to be incisional and overlying her recent surgery. The patient is not very cooperative with exam at this time. She cannot tell me when her last dialysis was, if she has missed any treatments, etc. Given the fact that it is Wednesday I am unable to verify that with the outpatient dialysis unit at this time either. A CT scan of her abdomen and pelvis was done, results of which are noted below. She does appear to have some amount of anasarca. She is not short of breath at this time and is not very keen on continuing her dialysis today. She is noted to have leukocytosis and was also noted to be severely hypertensive at presentation at 186/77. She did recently have a fever to 100.2 also. Infectious Disease specialists have been consulted and vancomycin has been administered in the ER. We were asked to see her for her dialysis, which I will set up tomorrow once her chest pain is adequately evaluated and cardiac etiology of the same has been ruled out. IMPRESSION, ASSESSMENT AND PLAN: As outlined in electronic renal consult note. ELISEO BA MD DR: LUBA/faraz JOB#: [id number] / [id number]
--- NOTE | 2018-01-09 23:26 | CONS ---
DATE OF CONSULTATION: 01/09/2018 REFERRING PHYSICIAN: Dr. Brunner. REASON FOR CONSULTATION: Leukocytosis. HISTORY OF PRESENT ILLNESS: This patient is a 57-year-old female with a past medical history of chronic kidney disease on hemodialysis, diabetes mellitus type 2 and coronary artery disease. She is currently residing at [facility] after undergoing a coronary artery bypass graft at [facility] in November 2017. While at [facility], she recalls acute onset of cough and chest pain. She was found to have elevated white blood cell count of 21,000 with a lactic acid of 0.8 and a procalcitonin level of 2.05. A chest x-ray showed mild decreased left lung base airspace opacities, likely atelectasis or infiltrate. She was also found to have a large sacral decubitus ulcer of sacrum. The CT abdomen/pelvis revealed diffuse soft tissue edema suggesting anasarca. No abscess noted. Sed rate 35, CRP 173.6. She was dosed empirically with vancomycin. The patient has had multiple hospitalizations and ER visits this year. Most recently, she was hospitalized last month with a large left-sided pleural effusion, status post thoracentesis on 12/23/2017 with negative culture growth. She has not been on any steroids or antibiotics recently per [facility]. She had a low grade fever of 100.2 this morning. The patient says she is feeling cold. She denies sweats or body aches. She has had several bowel movements since admission. She denies nausea, vomiting or diarrhea. She is anuric. She denies pain. She denies shortness of air. She denies chest pain or cough at the moment. Denies headache, nasal/sinus congestion or sore throat. She has a history of a CVA with left-sided weakness and is chair bound requiring assistance with ADLs and transfers. PAST MEDICAL HISTORY: Chronic kidney disease, on hemodialysis. History of myocardial infarction. Hepatitis C. Diabetes mellitus type 2. Cerebrovascular accident with left-sided weakness. Asthma, gastroesophageal reflux disease, chronic heart failure, hyperlipidemia, pulmonary hypertension, depression, chronic leg edema. History of MRSA colonization. PAST SURGICAL HISTORY: Coronary artery bypass graft in November 2017 at [facility]. Cholecystectomy, hysterectomy, AV fistula, aorto-celiac bypass. FAMILY HISTORY: Positive for heart disease and kidney disease. SOCIAL HISTORY: The patient says she lives alone. According to the medical record, she has been residing at a rehab facility since her surgery and prior to that, she was living with her daughter. She is a former smoker. ALLERGIES: AMITRIPTYLINE, HYDROMORPHONE, LISINOPRIL, METFORMIN. MEDICATIONS: Vancomycin. Other medications are available and have been reviewed on the MAR. REVIEW OF SYSTEMS: Per HPI, otherwise all other review of systems are negative. PHYSICAL EXAMINATION: GENERAL: The patient is propped up in bed, alert, calm, in no apparent distress. VITAL SIGNS: Temperature is 99.9, T-max 100.2, blood pressure 115/57, heart rate 68, respiratory rate 20, pulse oximetry is 97% on room air. BMI 34. HEENT: Normal conjunctivae. Oral mucosa is pink and dry. No thrush. NECK: Supple. LUNGS: Diminished aeration in the bases. Nonlabored. HEART: S1 and S2. ABDOMEN: Obese. Bowel sounds active. Soft, nontender. EXTREMITIES: 1-2+ edema in lower extremities bilaterally, greater on left. No cyanosis. SKIN: Warm without generalized rash. She has a stage 3 pressure wound, left ischial. She also has a large sacral wound with a dark discoloration and foul odor. Depth is indeterminate. LUE, AV fistula unremarkable. NEUROLOGIC: Alert, responds to questions appropriately and follows commands. LABORATORY DATA: Today's WBC 21.7 from 21.7 on admission, hemoglobin 6.4 from 7.3, platelet count 138,000. Sed rate 35. Segs 86%, bands 8%. Sodium 133, potassium 5.1, creatinine 6.1, BUN 39, glucose 77. Lactic acid 0.8. Troponin 0.046. CRP 173.6. Procalcitonin 2.05. Blood cultures from 01/08/2018 pending. Chest x-ray, per HPI. Abdominal/pelvis CT showed diffuse edema in the soft tissues; distended bladder; moderate stool throughout the colon; mild ascites; etiology is not determined; moderate left pleural effusion with left base atelectasis or infiltrate. IMPRESSION: 1. Leukocytosis. 2. Fever. 3. Pressure wounds of sacral and left ischial areas, present on admission. 4. Left pleural effusion. 5. Acute anemia. 6. Chronic kidney disease, on hemodialysis via arteriovenous fistula. 7. Status post coronary artery bypass grafting in November 2017 at [facility]. 8. Chronic heart failure. 9. Diabetes mellitus, type 2. 10. History of cerebrovascular accident with left-sided weakness and is chair bound. PLAN: Continue the vancomycin and add Zosyn. We will follow up on morning laboratory values and blood culture results. Consult wound care team. Local wound care and offloading. Discussed supportive care. Thank you, Dr. Brunner for asking us to participate in this patient's care. Should you have further questions or concerns, please call. HERMANN BA MD DR: TANK/faraz JOB#: [id number] / [id number]
--- NOTE | 2018-01-10 01:36 | CONS ---
DATE OF CONSULTATION: 01/09/2018 ATTENDING PHYSICIAN: Dr. Thomas. REASON FOR CONSULTATION: The patient seen in pulmonary consultation at the request of Dr. Thomas for abnormal x-ray. HISTORY OF PRESENT ILLNESS: The patient is a 57-year-old, that was at dialysis, started to experience some chest pain. She was admitted. I was asked to see her in consultation for abnormal x-ray, which reveals left airspace opacities. The patient denies fever, chills. No productive cough. She was recently here back in July with abnormal x-ray. At that time, she underwent thoracentesis. The pleural fluid was compatible with transudative effusion. PAST MEDICAL HISTORY: Chronic heart failure, hypertension, hyperlipidemia, secondary pulmonary hypertension, obstructive lung disease, depression, previous addiction, chronic end-stage renal insufficiency, on hemodialysis, diabetes, hypothyroidism. PAST SURGICAL HISTORY: Status post cholecystectomy and hysterectomy. FAMILY HISTORY: Coronary artery disease. SOCIAL HISTORY: She is currently not smoking. ALLERGIES: AMITRIPTYLINE, HYDROMORPHONE, LISINOPRIL AND METFORMIN. REVIEW OF SYSTEMS: As indicated above, otherwise, a 10-point system was reviewed and negative. PHYSICAL EXAMINATION: GENERAL: The patient was in no respiratory distress. VITAL SIGNS: Stable. O2 saturation currently on room air 95%. HEENT: Eyes, the sclerae were nonicteric. NECK: Jugular venous distention was not elevated. No lymphadenopathy. CHEST: Full expansion. LUNGS: Diminished breath sounds in the left. No wheezes. CARDIOVASCULAR: Regular rate and rhythm with S1, S2, no S3. ABDOMEN: Soft, nontender, nondistended. EXTREMITIES: No clubbing, cyanosis. Minimal edema. LABORATORY DATA: Reviewed. White count was elevated. Hemoglobin and hematocrit noted. Electrolytes were deranged. BUN was elevated, creatinine was elevated. Chest x-ray as indicated above. IMPRESSION: 1. Abnormal chest x-ray revealed chronic left effusion. The patient is asymptomatic. No need for additional workup at this time. 2. End-stage renal disease, on hemodialysis. 3. Secondary pulmonary hypertension. 4. Gastroesophageal reflux, status post release of celiac artery and aorto-celiac bypass with graft. 5. Hepatitis C. 6. Type 2 diabetes. 7. Chronic heart failure. 8. Ascites. PLAN: 1. During the patient's last admission, she underwent thoracentesis. The pleural fluid was compatible with a transudative effusion. The patient is currently not severely short of air. I recommend no thoracentesis at this time. 2. Continue other meds per PCP. I do appreciate the privilege in sharing in the patient's care. SAM DURANT MD DR: RON/faraz JOB#: [id number] / [id number]
[2018-01-10 02:10] VITALS: BP 107/49
[2018-01-10] MEDS ORDERED: VANCOMYCIN RANDOM LEVEL. MC ONE (05:00)
[2018-01-10] MEDS: PIPERACILLIN/TAZOBACTAM 2.25 GM in IV NORMAL SALINE 50ML 50 ML IV SCH ×3 (05:25→21:11)
[2018-01-10 05:28] LABS: BASO # 0.1 x10^3/uL (0.0-0.2); BASO % 0 % (0-3); EOS % 0 % (0-3); HEMATOCRIT 21.8 % (36.0-47.0); HEMOGLOBIN 7.3 g/dL (12.0-15.5); LYMPH # 0.7 x10^3/uL (1.0-4.8); LYMPH % 3 % (24-48); MEAN CORPUSCULAR HEMOGLOBIN 29 pg (25-35); MEAN CORPUSCULAR HGB CONC 33 g/dL (31-37); MEAN CORPUSCULAR VOLUME 86 fL (79-100); MONO # 1.1 x10^3/uL (0.0-1.1); MONO % 5 % (0-9); NEUT % 91 % (31-73); PLATELET COUNT 123 x10^3/uL (140-400); RED BLOOD COUNT 2.53 x10^6/uL (3.50-5.40); RED CELL DISTRIBUTION WIDTH 18.2 % (11.5-14.5); WHITE BLOOD COUNT 20.9 x10^3/uL (4.0-11.0)
[2018-01-10 05:59] LABS: ALBUMIN 2.5 g/dL (3.4-5.0); ALBUMIN/GLOBULIN RATIO 0.7 (1.0-1.7); CALCIUM 9.2 mg/dL (8.5-10.1); CREATININE 7.3 mg/dL (0.6-1.0); MAGNESIUM 2.4 mg/dL (1.8-2.4); PHOSPHORUS 2.3 mg/dL (2.6-4.7); POTASSIUM 5.3 mmol/L (3.5-5.1); TOTAL BILIRUBIN 1.4 mg/dL (0.2-1.0); TOTAL PROTEIN 5.9 g/dL (6.4-8.2)
[2018-01-10 07:23] VITALS: BP 118/46
[2018-01-10] MEDS: INSULIN LISPRO 300 UNITS/3 ML INSULN.PEN. SQ SCH ×3 (07:30→16:30)
[2018-01-10] MEDS: CARVEDILOL 12.5 MG TABLET. PO SCH ×2 (08:00→17:00)
[2018-01-10] MEDS: CHOLECALCIFEROL (VITAMIN D3) 1,000 UNIT TABLET PO SCH (08:49)
[2018-01-10] MEDS: FOLIC/VIT B COMP W-C (RENAL) TABLET. PO SCH (08:49)
[2018-01-10] MEDS: LIPASE/PROTEAS/AMYLAS 10/32/42 CAPSULE.DR. PO SCH ×3 (08:51→17:00)
[2018-01-10] MEDS: CALCIUM ACETATE 667 MG CAPSULE PO SCH ×2 (08:51→12:24)
[2018-01-10] MEDS: ISOSORBIDE MONONITRATE ER 30 MG TAB.ER.24H PO SCH (08:51)
[2018-01-10] MEDS: PANTOPRAZOLE 40 MG TABLET.DR. PO SCH (08:52)
[2018-01-10] MEDS: MINOXIDIL 2.5 MG TABLET PO SCH ×2 (08:52→20:06)
[2018-01-10] MEDS: POLYETHYLENE GLYCOL 3350 17 GM PACKET. PO SCH (08:55)
[2018-01-10] MEDS: LOSARTAN POTASSIUM 50 MG TABLET. PO SCH (08:55)
[2018-01-10] MEDS: SERTRALINE 50 MG TABLET. PO SCH (08:55)
[2018-01-10] MEDS: ACETAMINOPHEN 500 MG TABLET PO SCH ×3 (09:00→20:06)
[2018-01-10] MEDS ORDERED: ACETAMINOPHEN 325 MG TABLET. PO PRN (09:15)
--- NOTE | 2018-01-10 09:25 | PDOC ---
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 + chest wall pain and pain with sternal incision. Cannot recall if chest pain like heart pain prior to admission,. Objective Objective sleepy NOTE: 01/03/18 morning at SN[facility] - awake and appropriate. Very depressed reporting has been so hard since CABG and not sure she can keep going. Celexa had been stopped and was restarted. She was continuing to call out and cry out during dialysis and at the SNU. She reported doing it because of pain and sadness. Labs [place] [id number] of the chest ordered w/o contrast. Straight cath UA ordered as well as BC ordered. No temperature and BP stable. Pressure wound sacral/buttocks with blackened eschar - [facility] wound clinic consultation ordered. Vitals Vital Signs Date Time Temp Pulse Resp B/P (MAP) Pulse Ox O2 Delivery O2 Flow Rate FiO2 01/10/18 07:23 99.9 60 18 118/46 (70) 97 Room Air 99.9 Input & Output Intake and Output 01/10/18 07:00 Intake Total 960 ml Balance 960 ml Intake Oral 950 ml Blood Product IV Normal Saline Flush 10 ml # Bowel Movements 7 Physical Exam Physical Exam General appearance - alert, ill appearing, and in no distress Mental Status - alert, oriented to person, place, and time, affect appropriate to mood Head - normal Chest - clear to auscultation, decreased bases, + chest wall tenderness Heart - S1 and S2 normal Abdomen - soft, nontender, nondistended,obese, BS + Neurological - no acute neurological deficit, wakens to name but falls asleep easily Musculoskeletal - no muscular tenderness noted Extremities - + edema Skin - warm and dry Labs Laboratory Tests Test 01/08/18 12:35 01/08/18 14:32 01/08/18 15:30 01/08/18 18:06 White Blood Count 21.7 x10^3/uL (4.0-11.0) Red Blood Count 2.58 x10^6/uL (3.50-5.40) Hemoglobin 7.3 g/dL (12.0-15.5) Hematocrit 22.3 % (36.0-47.0) Mean Corpuscular Volume 86 fL (79-100) Mean Corpuscular Hemoglobin 28 pg (25-35) Mean Corpuscular Hemoglobin Concent 33 g/dL (31-37) Red Cell Distribution Width 18.6 % (11.5-14.5) Platelet Count 215 x10^3/uL (140-400) Neutrophils (%) (Auto) 94 % (31-73) Lymphocytes (%) (Auto) 2 % (24-48) Monocytes (%) (Auto) 3 % (0-9) Eosinophils (%) (Auto) 0 % (0-3) Basophils (%) (Auto) 1 % (0-3) Neutrophils # (Auto) 20.3 x10^3uL (1.8-7.7) Lymphocytes # (Auto) 0.5 x10^3/uL (1.0-4.8) Monocytes # (Auto) 0.7 x10^3/uL (0.0-1.1) Eosinophils # (Auto) 0.0 x10^3/uL (0.0-0.7) Basophils # (Auto) 0.1 x10^3/uL (0.0-0.2) Segmented Neutrophils % 86 % (35-66) Band Neutrophils % 8 % (0-9) Lymphocytes % 2 % (24-48) Monocytes % 4 % (0-10) Platelet Estimate Adequate (ADEQUATE) Polychromasia Present Poikilocytosis Slight Anisocytosis Slight Tear Drop Cells Occ [place] Cells Few Acanthocytes Few Schistocytes Few Erythrocyte Sedimentation Rate 35 (0-25) Prothrombin Time 17.2 SEC (11.7-14.0) Prothromb Time International Ratio 1.5 (0.8-1.1) Sodium Level 131 mmol/L (136-145) Potassium Level 4.7 mmol/L (3.5-5.1) Chloride Level 96 mmol/L (98-107) Carbon Dioxide Level 24 mmol/L (21-32) Anion Gap 11 (6-14) Blood Urea Nitrogen 36 mg/dL (7-20) Creatinine 5.6 mg/dL (0.6-1.0) Estimated GFR (Cockcroft-Gault) 9.5 Glucose Level 93 mg/dL (70-99) Calcium Level 9.3 mg/dL (8.5-10.1) Troponin I Quantitative 0.046 ng/mL (0.000-0.055) C-Reactive Protein, Quantitative 173.6 mg/L (0-3.3) Procalcitonin 2.05 ng/mL (0.00-0.10) Lactic Acid Level 0.8 mmol/L (0.4-2.0) Glucose (Fingerstick) 84 mg/dL (70-99) Test 01/08/18 21:01 01/09/18 04:00 01/09/18 04:30 01/09/18 06:56 Glucose (Fingerstick) 87 mg/dL (70-99) 74 mg/dL (70-99) Sodium Level 133 mmol/L (136-145) Potassium Level 5.1 mmol/L (3.5-5.1) Chloride Level 97 mmol/L (98-107) Carbon Dioxide Level 25 mmol/L (21-32) Anion Gap 11 (6-14) Blood Urea Nitrogen 39 mg/dL (7-20) Creatinine 6.1 mg/dL (0.6-1.0) Estimated GFR (Cockcroft-Gault) 8.6 Glucose Level 77 mg/dL (70-99) Calcium Level 9.2 mg/dL (8.5-10.1) White Blood Count 21.7 x10^3/uL (4.0-11.0) Red Blood Count 2.19 x10^6/uL (3.50-5.40) Hemoglobin 6.4 g/dL (12.0-15.5) Hematocrit 18.8 % (36.0-47.0) Mean Corpuscular Volume 86 fL (79-100) Mean Corpuscular Hemoglobin 29 pg (25-35) Mean Corpuscular Hemoglobin Concent 34 g/dL (31-37) Red Cell Distribution Width 18.8 % (11.5-14.5) Platelet Count 138 x10^3/uL (140-400) Neutrophils (%) (Auto) 94 % (31-73) Lymphocytes (%) (Auto) 2 % (24-48) Monocytes (%) (Auto) 5 % (0-9) Eosinophils (%) (Auto) 0 % (0-3) Basophils (%) (Auto) 0 % (0-3) Neutrophils # (Auto) 20.3 x10^3uL (1.8-7.7) Lymphocytes # (Auto) 0.4 x10^3/uL (1.0-4.8) Monocytes # (Auto) 1.0 x10^3/uL (0.0-1.1) Eosinophils # (Auto) 0.0 x10^3/uL (0.0-0.7) Basophils # (Auto) 0.0 x10^3/uL (0.0-0.2) Test 01/09/18 16:31 01/09/18 20:40 01/10/18 05:10 01/10/18 07:54 Glucose (Fingerstick) 80 mg/dL (70-99) 75 mg/dL (70-99) 86 mg/dL (70-99) White Blood Count 20.9 x10^3/uL (4.0-11.0) Red Blood Count 2.53 x10^6/uL (3.50-5.40) Hemoglobin 7.3 g/dL (12.0-15.5) Hematocrit 21.8 % (36.0-47.0) Mean Corpuscular Volume 86 fL (79-100) Mean Corpuscular Hemoglobin 29 pg (25-35) Mean Corpuscular Hemoglobin Concent 33 g/dL (31-37) Red Cell Distribution Width 18.2 % (11.5-14.5) Platelet Count 123 x10^3/uL (140-400) Neutrophils (%) (Auto) 91 % (31-73) Lymphocytes (%) (Auto) 3 % (24-48) Monocytes (%) (Auto) 5 % (0-9) Eosinophils (%) (Auto) 0 % (0-3) Basophils (%) (Auto) 0 % (0-3) Neutrophils # (Auto) 19.0 x10^3uL (1.8-7.7) Lymphocytes # (Auto) 0.7 x10^3/uL (1.0-4.8) Monocytes # (Auto) 1.1 x10^3/uL (0.0-1.1) Eosinophils # (Auto) 0.0 x10^3/uL (0.0-0.7) Basophils # (Auto) 0.1 x10^3/uL (0.0-0.2) Sodium Level 131 mmol/L (136-145) Potassium Level 5.3 mmol/L (3.5-5.1) Chloride Level 96 mmol/L (98-107) Carbon Dioxide Level 25 mmol/L (21-32) Anion Gap 10 (6-14) Blood Urea Nitrogen 50 mg/dL (7-20) Creatinine 7.3 mg/dL (0.6-1.0) Estimated GFR (Cockcroft-Gault) 7.0 BUN/Creatinine Ratio 7 (6-20) Glucose Level 87 mg/dL (70-99) Calcium Level 9.2 mg/dL (8.5-10.1) Phosphorus Level 2.3 mg/dL (2.6-4.7) Magnesium Level 2.4 mg/dL (1.8-2.4) Total Bilirubin 1.4 mg/dL (0.2-1.0) Aspartate Amino Transf (AST/SGOT) 37 U/L (15-37) Alanine Aminotransferase (ALT/SGPT) 30 U/L (14-59) Alkaline Phosphatase 280 U/L (46-116) Total Protein 5.9 g/dL (6.4-8.2) Albumin 2.5 g/dL (3.4-5.0) Albumin/Globulin Ratio 0.7 (1.0-1.7) Random Vancomycin Level 22.4 mcg/mL Laboratory Tests Test 01/09/18 16:31 01/09/18 20:40 01/10/18 05:10 01/10/18 07:54 Glucose (Fingerstick) 80 mg/dL (70-99) 75 mg/dL (70-99) 86 mg/dL (70-99) White Blood Count 20.9 x10^3/uL (4.0-11.0) Red Blood Count 2.53 x10^6/uL (3.50-5.40) Hemoglobin 7.3 g/dL (12.0-15.5) Hematocrit 21.8 % (36.0-47.0) Mean Corpuscular Volume 86 fL (79-100) Mean Corpuscular Hemoglobin 29 pg (25-35) Mean Corpuscular Hemoglobin Concent 33 g/dL (31-37) Red Cell Distribution Width 18.2 % (11.5-14.5) Platelet Count 123 x10^3/uL (140-400) Neutrophils (%) (Auto) 91 % (31-73) Lymphocytes (%) (Auto) 3 % (24-48) Monocytes (%) (Auto) 5 % (0-9) Eosinophils (%) (Auto) 0 % (0-3) Basophils (%) (Auto) 0 % (0-3) Neutrophils # (Auto) 19.0 x10^3uL (1.8-7.7) Lymphocytes # (Auto) 0.7 x10^3/uL (1.0-4.8) Monocytes # (Auto) 1.1 x10^3/uL (0.0-1.1) Eosinophils # (Auto) 0.0 x10^3/uL (0.0-0.7) Basophils # (Auto) 0.1 x10^3/uL (0.0-0.2) Sodium Level 131 mmol/L (136-145) Potassium Level 5.3 mmol/L (3.5-5.1) Chloride Level 96 mmol/L (98-107) Carbon Dioxide Level 25 mmol/L (21-32) Anion Gap 10 (6-14) Blood Urea Nitrogen 50 mg/dL (7-20) Creatinine 7.3 mg/dL (0.6-1.0) Estimated GFR (Cockcroft-Gault) 7.0 BUN/Creatinine Ratio 7 (6-20) Glucose Level 87 mg/dL (70-99) Calcium Level 9.2 mg/dL (8.5-10.1) Phosphorus Level 2.3 mg/dL (2.6-4.7) Magnesium Level 2.4 mg/dL (1.8-2.4) Total Bilirubin 1.4 mg/dL (0.2-1.0) Aspartate Amino Transf (AST/SGOT) 37 U/L (15-37) Alanine Aminotransferase (ALT/SGPT) 30 U/L (14-59) Alkaline Phosphatase 280 U/L (46-116) Total Protein 5.9 g/dL (6.4-8.2) Albumin 2.5 g/dL (3.4-5.0) Albumin/Globulin Ratio 0.7 (1.0-1.7) Random Vancomycin Level 22.4 mcg/mL Meds Current Medications Acetaminophen (Tylenol) 1,000 mg TID PO Last administered on 01/09/18 21:29; Start 01/09/18 at 09:00 Amylase/Lipase/ Protease (Zenpep 10,000) 2 cap TIDWMEALS PO Last administered on 01/09/18 18:08; Start 01/09/18 at 09:00 Calcium Acetate (Phoslo) 1,334 mg TIDWMEALS PO Last administered on 01/09/18 18 :08; Start 01/09/18 at 09:00 Carvedilol (Coreg) 12.5 mg BIDWMEALS PO Last administered on 01/09/18 18:08; Start 01/09/18 at 09:00 Darbepoetin Ty (Aranesp) 60 mcg WEEKLYHS SQ Last administered on 01/09/18 21: 29; Start 01/09/18 at 21:00 Insulin Human Lispro (HumaLOG) 0-5 UNITS TIDAC SQ ; Start 01/09/18 at 11:30 Isosorbide Mononitrate (Imdur) 120 mg DAILY PO Last administered on 01/09/18at 12 :49; Start 01/09/18 at 09:00 Losartan Potassium (Cozaar) 100 mg DAILY PO ; Start 01/09/18 at 09:00 Magnesium Sulfate 50 ml @ 25 mls/hr PRN DAILY PRN IV for Mag < 1.7 on am labs; Start 01/09/18 at 10:15 Minoxidil (Loniten) 2.5 mg BID PO Last administered on 01/09/18 21:30; Start at 09:00 Montelukast Sodium (Singulair) 10 mg QHS PO Last administered on 01/09/18at 21:30 ; Start 01/09/18 at 21:00 Non-Formulary Medication (Insulin Aspart (Novolog Flexpen)) TIDAC SQ ; Start at 11:30; Status UNV Pantoprazole Sodium (Protonix) 40 mg DAILYAC PO Last administered on 01/09/18 12:49; Start 01/09/18 at 09:00 Piperacillin Sod/ Tazobactam Sod (Zosyn Per Pharmacy) 1 each PRN DAILY PRN MC SEE COMMENTS; Start 01/09/18 at 11:15 Piperacillin Sod/ Tazobactam Sod 2.25 gm/Sodium Chloride 50 ml @ 100 mls/hr Q8HRS IV Last administered on 01/10/18at 05:25; Start 01/09/18 at 12:00 Polyethylene Glycol (miraLAX PACKET) 17 gm DAILY PO ; Start 01/09/18 at 09:00 Sertraline HCl (Zoloft) 100 mg DAILY PO Last administered on 01/09/18at 12:47; Start 01/09/18 at 09:00 Sodium Chloride 1,000 ml @ 100 mls/hr Q10H IV ; Start 01/09/18 at 09:00; Stop at 11:32; Status DC Vancomycin HCl (Vancomycin Random Level) 1 each 1X ONCE MC Last administered on 01/10/18at 05:00; Start 01/10/18 at 05:00; Stop 01/10/18 at 05:01; Status DC Vitamin B Complex/ Vitamin C (Anneliese-Donny) 1 tab DAILY PO Last administered on 01/09/18at 12:49; Start 01/09/18 at 09:00 Vitamin D (Vitamin D3) 1,000 unit DAILY PO Last administered on 01/09/18at 12:47 ; Start 01/09/18 at 09:00 Assessment Assessment FINAL DIAGNOSIS: 1. Chest pain - chest wall MS pain not costochondritis- sternal incision pain 2. L atelectasis vs infiltrate with h/o 3. leukocytosis and fever 4. metabolic encephalopathy 5. acute on chronic anemia ESRD 6. Chest pain with h/o CABG 11/2017 8. Pressure wound coccyx sacrum with black eschar 9. abnormal troponin with h/o NSTEMI 10. End-stage renal disease, on hemodialysis TTS 11. 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 12. History of hyperparathyroidism secondary to end-stage renal disease. 13. Hyperlipidemia. 14. Severe pulmonary hypertension. 15. Asthma. 16. Gastroesophageal reflux disease. 17. CAD with PR unknown age and + small ischemia per [facility] medical management with recent CABG 18. Negative hepatitis C. 19. moderate severe depression recurrent 20. DM II insulin gastroparesis, ESRD 21. severe PCL malnutrition with decreased po intake 22. moderate weakness and debility 23, depression 24. secondary hyperparathyroidism 25. post op CABG L leg paralysis post op 26. Diastolic congestive heart failure with preserved ejection fraction not acute 27. severe PCL malnutrition with underlying moderate PCL malnutrition 28. h/o recent code blue PLAN: chest pain cardiology following Admit troponin 0.046 leukocytosis/ fever/ question infiltrate LLL Chronic LLL effusion pulmonary following - no further thoracentesis at this time CT chest w/o contrast pending fever/leukocytosis Admit WBC 21.7 today 20.9 ESR 35 CRP 20.9 Pre Calcitonin 2.05 ID following Vancomycin zosyn Prelim BC 1 or 7 + for gram + cocci Anemia/thrombocytopenia Admit Hgb 7.3 decreased to 6.4 and today 7.3 post 1U PRC thrombocytopenia Admit 215 today 123 - monitor - r/t infectious process/ antibiotics Severe depression Zoloft continues pysch consult had been ordered [facility] ESRD hemodialysis continued in patient DVT/GI prophylaxis SCD/JEN PPI Screen LTAC For further plan of care, please refer to the orders. Plan Plan For more details regarding further plans, please refer to the orders. GAURAV DANG MD 01/10/18 0959: IM PROGRESS NOTES- Assessment Assessment The patient was seen and examined by me. Chart reviewed and plan of care formulated. Discussed with, reviewed and agree with TECHNOLOGY AUDITOR's notes, plan of care and orders with modifications as necessary. For more details regarding further plans, please refer to the orders. RUT EDWARDS APRN Jan 10, 2018 09:25 GAURAV DANG MD Jan 10, 2018 09:59
[2018-01-10] MEDS: VANCOMYCIN PER PHARMACY MC PRN (09:47)
[2018-01-10 10:30] VITALS: BP 124/45
--- NOTE | 2018-01-10 10:33 | RAD ---
Examination: CT chest without contrast HISTORY: History of left lower lobe lung infiltrate COMPARISON: 12/21/2017 TECHNIQUE: Axial CT images of the chest were performed without IV contrast. Coronal and sagittal reformats are performed Exposure: One or more of the following individualized dose reduction techniques were utilized for this examination: 1. Automated exposure control 2. Adjustment of the mA and/or kV according to patient size 3. Use of iterative reconstruction technique FINDINGS: The central airways are patent. Moderate cardiomegaly. Diffuse coronary artery calcifications identified. Median sternotomy wires identified. Mild edema identified in the subcutaneous region of the chest similar to prior exam. Left lower lobe consolidation with air bronchograms identified. Mild to moderate left pleural effusion again identified which is mildly decreased compared to prior exam. Mild degenerative changes thoracic spine. The visualized noncontrasted liver, spleen, adrenals grossly appears unremarkable. IMPRESSION: 1. Left lower lobe lung consolidation with air bronchograms identified likely pneumonia or postobstructive atelectasis. Follow-up to resolution. Mild to moderate left pleural effusion has mildly decreased compared to prior exam. 2. Moderate cardiomegaly with coronary artery calcifications. Electronically signed by: Bao Martinez MD (01/10/2018 10:30 AM) [id number]
--- NOTE | 2018-01-10 10:53 | PDOC ---
Infectious Disease Note Subjective Subjective Awakened some but min responsive. Had some Ativan overnight Per nursing she did not eat much today and she told him she does not like the food Has been refusing to offload ROS ROS Difficult to ascertain Vital Sign Vital Signs Vital Signs Date Time Temp Pulse Resp B/P (MAP) Pulse Ox O2 Delivery O2 Flow Rate FiO2 01/10/18 10:30 98.5 61 22 124/45 (71) 94 Room Air 98.5 Physical Exam PHYSICAL EXAM GENERAL: NAD, awakens but min responses, calm HEENT: Normal conjunctivae. Oral mucosa is pink and dry. No thrush. NECK: No JVD LUNGS: Diminished aeration in the bases. Nonlabored. HEART: S1 and S2. ABDOMEN: Obese. Bowel sounds active. Soft, nontender. EXTREMITIES: 1-2+ edema in lower extremities bilaterally, greater on left. No cyanosis. SKIN: Warm without generalized rash. She has a stage 3 pressure wound, left ischial. She also has a large sacral wound with a dark discoloration and foul odor. Depth is indeterminate. LUE, AV fistula unremarkable. NEUROLOGIC: Awakens, responds to questions minimally. Labs Lab Laboratory Tests Test 01/09/18 16:31 01/09/18 20:40 01/10/18 05:10 01/10/18 07:54 Glucose (Fingerstick) 80 mg/dL (70-99) 75 mg/dL (70-99) 86 mg/dL (70-99) White Blood Count 20.9 x10^3/uL (4.0-11.0) Red Blood Count 2.53 x10^6/uL (3.50-5.40) Hemoglobin 7.3 g/dL (12.0-15.5) Hematocrit 21.8 % (36.0-47.0) Mean Corpuscular Volume 86 fL (79-100) Mean Corpuscular Hemoglobin 29 pg (25-35) Mean Corpuscular Hemoglobin Concent 33 g/dL (31-37) Red Cell Distribution Width 18.2 % (11.5-14.5) Platelet Count 123 x10^3/uL (140-400) Neutrophils (%) (Auto) 91 % (31-73) Lymphocytes (%) (Auto) 3 % (24-48) Monocytes (%) (Auto) 5 % (0-9) Eosinophils (%) (Auto) 0 % (0-3) Basophils (%) (Auto) 0 % (0-3) Neutrophils # (Auto) 19.0 x10^3uL (1.8-7.7) Lymphocytes # (Auto) 0.7 x10^3/uL (1.0-4.8) Monocytes # (Auto) 1.1 x10^3/uL (0.0-1.1) Eosinophils # (Auto) 0.0 x10^3/uL (0.0-0.7) Basophils # (Auto) 0.1 x10^3/uL (0.0-0.2) Sodium Level 131 mmol/L (136-145) Potassium Level 5.3 mmol/L (3.5-5.1) Chloride Level 96 mmol/L (98-107) Carbon Dioxide Level 25 mmol/L (21-32) Anion Gap 10 (6-14) Blood Urea Nitrogen 50 mg/dL (7-20) Creatinine 7.3 mg/dL (0.6-1.0) Estimated GFR (Cockcroft-Gault) 7.0 BUN/Creatinine Ratio 7 (6-20) Glucose Level 87 mg/dL (70-99) Calcium Level 9.2 mg/dL (8.5-10.1) Phosphorus Level 2.3 mg/dL (2.6-4.7) Magnesium Level 2.4 mg/dL (1.8-2.4) Total Bilirubin 1.4 mg/dL (0.2-1.0) Aspartate Amino Transf (AST/SGOT) 37 U/L (15-37) Alanine Aminotransferase (ALT/SGPT) 30 U/L (14-59) Alkaline Phosphatase 280 U/L (46-116) Total Protein 5.9 g/dL (6.4-8.2) Albumin 2.5 g/dL (3.4-5.0) Albumin/Globulin Ratio 0.7 (1.0-1.7) Random Vancomycin Level 22.4 mcg/mL Micro CT Chest 01/10 IMPRESSION: 1. Left lower lobe lung consolidation with air bronchograms identified likely pneumonia or postobstructive atelectasis. Follow-up to resolution. Mild to moderate left pleural effusion has mildly decreased compared to prior exam. 2. Moderate cardiomegaly with coronary artery calcifications. Microbiology 01/08/18 Blood Culture - Final, Complete Objective Assessment 1. Leukocytosis - stable but also s/p PRBCs. 2. Fever - improving but also post PRBCs. 3. Pressure wounds of sacral and left ischial areas, present on admission. 4. H/o Left pleural effusion now ? pneumonia on CT. 5. Acute anemia. 6. Chronic kidney disease, on hemodialysis via arteriovenous fistula. 7. Status post coronary artery bypass grafting in November 2017 at [facility]. 8. Chronic heart failure. 9. Diabetes mellitus, type 2. 10. History of cerebrovascular accident with left-sided weakness and is chair bound. Plan Plan of Care Continue vancomycin/Zosyn f/u am labs and BC Consult wound care team Local wound care and offloading but d/w nursing and after offloading position is established, she rolls back to previous position on her back. I expressed to her she needs to stay off the wound D/w RN GARFIELD CASTORENA MD Jan 10, 2018 10:53
--- NOTE | 2018-01-10 13:30 | PDOC ---
PULMONARY PROGRESS NOTES Subjective no soa Vitals Vital Signs Date Time Temp Pulse Resp B/P (MAP) Pulse Ox O2 Delivery O2 Flow Rate FiO2 01/10/18 10:30 98.5 61 22 124/45 (71) 94 Room Air 98.5 General: Alert, No acute distress HEENT: Other Lungs: Other (decreased breath sounds bases) Cardiovascular: S1, S2 Abdomen: Soft, Non-tender Neuro Exam: Alert Extremities: No Edema Skin: Warm Labs Laboratory Tests Test 01/08/18 14:32 01/08/18 15:30 01/08/18 18:06 01/08/18 21:01 Sodium Level 131 mmol/L (136-145) Potassium Level 4.7 mmol/L (3.5-5.1) Chloride Level 96 mmol/L (98-107) Carbon Dioxide Level 24 mmol/L (21-32) Anion Gap 11 (6-14) Blood Urea Nitrogen 36 mg/dL (7-20) Creatinine 5.6 mg/dL (0.6-1.0) Estimated GFR (Cockcroft-Gault) 9.5 Glucose Level 93 mg/dL (70-99) Calcium Level 9.3 mg/dL (8.5-10.1) Troponin I Quantitative 0.046 ng/mL (0.000-0.055) C-Reactive Protein, Quantitative 173.6 mg/L (0-3.3) Procalcitonin 2.05 ng/mL (0.00-0.10) Lactic Acid Level 0.8 mmol/L (0.4-2.0) Glucose (Fingerstick) 84 mg/dL (70-99) 87 mg/dL (70-99) Test 01/09/18 04:00 01/09/18 04:30 01/09/18 06:56 01/09/18 16:31 Sodium Level 133 mmol/L (136-145) Potassium Level 5.1 mmol/L (3.5-5.1) Chloride Level 97 mmol/L (98-107) Carbon Dioxide Level 25 mmol/L (21-32) Anion Gap 11 (6-14) Blood Urea Nitrogen 39 mg/dL (7-20) Creatinine 6.1 mg/dL (0.6-1.0) Estimated GFR (Cockcroft-Gault) 8.6 Glucose Level 77 mg/dL (70-99) Calcium Level 9.2 mg/dL (8.5-10.1) White Blood Count 21.7 x10^3/uL (4.0-11.0) Red Blood Count 2.19 x10^6/uL (3.50-5.40) Hemoglobin 6.4 g/dL (12.0-15.5) Hematocrit 18.8 % (36.0-47.0) Mean Corpuscular Volume 86 fL (79-100) Mean Corpuscular Hemoglobin 29 pg (25-35) Mean Corpuscular Hemoglobin Concent 34 g/dL (31-37) Red Cell Distribution Width 18.8 % (11.5-14.5) Platelet Count 138 x10^3/uL (140-400) Neutrophils (%) (Auto) 94 % (31-73) Lymphocytes (%) (Auto) 2 % (24-48) Monocytes (%) (Auto) 5 % (0-9) Eosinophils (%) (Auto) 0 % (0-3) Basophils (%) (Auto) 0 % (0-3) Neutrophils # (Auto) 20.3 x10^3uL (1.8-7.7) Lymphocytes # (Auto) 0.4 x10^3/uL (1.0-4.8) Monocytes # (Auto) 1.0 x10^3/uL (0.0-1.1) Eosinophils # (Auto) 0.0 x10^3/uL (0.0-0.7) Basophils # (Auto) 0.0 x10^3/uL (0.0-0.2) Glucose (Fingerstick) 74 mg/dL (70-99) 80 mg/dL (70-99) Test 01/09/18 20:40 01/10/18 05:10 01/10/18 07:54 01/10/18 12:02 Glucose (Fingerstick) 75 mg/dL (70-99) 86 mg/dL (70-99) 99 mg/dL (70-99) White Blood Count 20.9 x10^3/uL (4.0-11.0) Red Blood Count 2.53 x10^6/uL (3.50-5.40) Hemoglobin 7.3 g/dL (12.0-15.5) Hematocrit 21.8 % (36.0-47.0) Mean Corpuscular Volume 86 fL (79-100) Mean Corpuscular Hemoglobin 29 pg (25-35) Mean Corpuscular Hemoglobin Concent 33 g/dL (31-37) Red Cell Distribution Width 18.2 % (11.5-14.5) Platelet Count 123 x10^3/uL (140-400) Neutrophils (%) (Auto) 91 % (31-73) Lymphocytes (%) (Auto) 3 % (24-48) Monocytes (%) (Auto) 5 % (0-9) Eosinophils (%) (Auto) 0 % (0-3) Basophils (%) (Auto) 0 % (0-3) Neutrophils # (Auto) 19.0 x10^3uL (1.8-7.7) Lymphocytes # (Auto) 0.7 x10^3/uL (1.0-4.8) Monocytes # (Auto) 1.1 x10^3/uL (0.0-1.1) Eosinophils # (Auto) 0.0 x10^3/uL (0.0-0.7) Basophils # (Auto) 0.1 x10^3/uL (0.0-0.2) Sodium Level 131 mmol/L (136-145) Potassium Level 5.3 mmol/L (3.5-5.1) Chloride Level 96 mmol/L (98-107) Carbon Dioxide Level 25 mmol/L (21-32) Anion Gap 10 (6-14) Blood Urea Nitrogen 50 mg/dL (7-20) Creatinine 7.3 mg/dL (0.6-1.0) Estimated GFR (Cockcroft-Gault) 7.0 BUN/Creatinine Ratio 7 (6-20) Glucose Level 87 mg/dL (70-99) Calcium Level 9.2 mg/dL (8.5-10.1) Phosphorus Level 2.3 mg/dL (2.6-4.7) Magnesium Level 2.4 mg/dL (1.8-2.4) Total Bilirubin 1.4 mg/dL (0.2-1.0) Aspartate Amino Transf (AST/SGOT) 37 U/L (15-37) Alanine Aminotransferase (ALT/SGPT) 30 U/L (14-59) Alkaline Phosphatase 280 U/L (46-116) Total Protein 5.9 g/dL (6.4-8.2) Albumin 2.5 g/dL (3.4-5.0) Albumin/Globulin Ratio 0.7 (1.0-1.7) Random Vancomycin Level 22.4 mcg/mL Laboratory Tests Test 01/09/18 16:31 01/09/18 20:40 01/10/18 05:10 01/10/18 07:54 Glucose (Fingerstick) 80 mg/dL (70-99) 75 mg/dL (70-99) 86 mg/dL (70-99) White Blood Count 20.9 x10^3/uL (4.0-11.0) Red Blood Count 2.53 x10^6/uL (3.50-5.40) Hemoglobin 7.3 g/dL (12.0-15.5) Hematocrit 21.8 % (36.0-47.0) Mean Corpuscular Volume 86 fL (79-100) Mean Corpuscular Hemoglobin 29 pg (25-35) Mean Corpuscular Hemoglobin Concent 33 g/dL (31-37) Red Cell Distribution Width 18.2 % (11.5-14.5) Platelet Count 123 x10^3/uL (140-400) Neutrophils (%) (Auto) 91 % (31-73) Lymphocytes (%) (Auto) 3 % (24-48) Monocytes (%) (Auto) 5 % (0-9) Eosinophils (%) (Auto) 0 % (0-3) Basophils (%) (Auto) 0 % (0-3) Neutrophils # (Auto) 19.0 x10^3uL (1.8-7.7) Lymphocytes # (Auto) 0.7 x10^3/uL (1.0-4.8) Monocytes # (Auto) 1.1 x10^3/uL (0.0-1.1) Eosinophils # (Auto) 0.0 x10^3/uL (0.0-0.7) Basophils # (Auto) 0.1 x10^3/uL (0.0-0.2) Sodium Level 131 mmol/L (136-145) Potassium Level 5.3 mmol/L (3.5-5.1) Chloride Level 96 mmol/L (98-107) Carbon Dioxide Level 25 mmol/L (21-32) Anion Gap 10 (6-14) Blood Urea Nitrogen 50 mg/dL (7-20) Creatinine 7.3 mg/dL (0.6-1.0) Estimated GFR (Cockcroft-Gault) 7.0 BUN/Creatinine Ratio 7 (6-20) Glucose Level 87 mg/dL (70-99) Calcium Level 9.2 mg/dL (8.5-10.1) Phosphorus Level 2.3 mg/dL (2.6-4.7) Magnesium Level 2.4 mg/dL (1.8-2.4) Total Bilirubin 1.4 mg/dL (0.2-1.0) Aspartate Amino Transf (AST/SGOT) 37 U/L (15-37) Alanine Aminotransferase (ALT/SGPT) 30 U/L (14-59) Alkaline Phosphatase 280 U/L (46-116) Total Protein 5.9 g/dL (6.4-8.2) Albumin 2.5 g/dL (3.4-5.0) Albumin/Globulin Ratio 0.7 (1.0-1.7) Random Vancomycin Level 22.4 mcg/mL Test 01/10/18 12:02 Glucose (Fingerstick) 99 mg/dL (70-99) Medications Active Scripts Medications Dose Route/Sig Max Daily Dose Days Date Category Dose Instructions Vitamin D3 (Cholecalciferol (Vitamin D3)) 1,000 Unit Tablet 1 Tab PO DAILY 12/28/17 Rx [Calcium Acetate] 667 MG Capsule 1,334 Mg PO TIDWMEALS 12/28/17 Rx Mapap (Acetaminophen) 500 Mg Tablet 1,000 Mg PO TID 12/28/17 Rx Carvedilol 12.5 Mg Tablet 12.5 Mg PO BIDWMEALS 12/28/17 Rx Minoxidil 2.5 Mg Tablet 2.5 Mg PO BID 07/19/17 Rx Isosorbide Mononitrate Er (Isosorbide Mononitrate) 30 Mg Tab.er.24h 120 Mg PO DAILY 07/19/17 Rx Montelukast Sodium Tablet (Montelukast Sodium) 10 Mg Tablet 10 Mg PO QHS 05/07/17 Rx Polyethylene Glycol 3350 2,500 Gm Powder 17 Gm PO DAILY 04/09/17 Rx Nitrostat (Nitroglycerin) 0.4 Mg Tab.subl 0.4 Mg SL PRN Q5MIN PRN 12/30/16 Reported Plavix (Clopidogrel Bisulfate) 75 Mg Tablet 1 Tab PO DAILY 12/30/16 Reported Novolog Flexpen (Insulin Aspart) 100 Unit/1 Ml Insuln.pen 0 Units SQ TIDAC 11/26/16 Rx Take sub q tid ac: BS 151-200=2 unit, 201-250=3 unit, [id number], BS 301-350=6 unit, BS 351-400 =8 unit. BS>401 call MD Renetta Busch 10,000 Units Capsule (Lipase/Protease/Amylase) 1 Each Capsule. 2 Cap PO TIDWMEALS 11/26/16 Rx TAke 2 cap tid with meals Nephro-Donny Tablet (Folic Acid/Vitamin B Comp W-C) 0.8 Mg Tablet 1 Tab PO DAILY 07/07/16 Rx Benadryl (Diphenhydramine Hcl) 25 Mg Capsule 25 Mg PO PRN Q6HRS PRN 07/07/16 Rx Zoloft (Sertraline Hcl) 100 Mg Tablet 1 Tab PO DAILY 07/01/16 Reported Pantoprazole Sodium 40 Mg Tablet. 1 Tab PO DAILY 07/01/16 Reported Losartan Potassium 100 Mg Tablet 100 Mg PO DAILY 01/14/16 Reported Aspir 81 (Aspirin) 81 Mg Tablet.dr 81 Mg PO DAILY 01/14/16 Reported Impression . 1. Abnormal chest x-ray revealed chronic left effusion. The patient is asymptomatic. repeat ct chest 01/10 reviewed/ Improved left effusion/atelectasis. clinically less likely pneumonia 2. End-stage renal disease, on hemodialysis. 3. Secondary pulmonary hypertension. 4. Gastroesophageal reflux, status post release of celiac artery and aorto-celiac bypass with graft. 5. Hepatitis C. 6. Type 2 diabetes. 7. Chronic heart failure. 8. Ascites. 9. Fever improved Plan . 1. During the patient's last admission, she underwent thoracentesis. The pleural fluid was compatible with a transudative effusion. The patient is currently not symptomatic. effusion 01/10 is smaller then before. Will not need thoracentesis unless fever re-occurs. 2. Continue other meds per PCP. 3. Abx per RODRIGO GUEVARA MD Jan 10, 2018 13:30
[2018-01-10] MEDS: DICLOFENAC SODIUM 1% TOPICAL GEL 100GM TUBE. TP SCH ×2 (14:02→20:05)
[2018-01-10 14:24] VITALS: BP 116/49
[2018-01-10] MEDS ORDERED: IV NORMAL SALINE 1000ML BAG 1,000 ML IV PRN ×2 (14:25)
[2018-01-10] MEDS ORDERED: diphenhydrAMINE 50 MG/ML VIAL IV PRN ×2 (14:30)
[2018-01-10] MEDS ORDERED: DIALYSIS PATIENT. MC PRN (14:30)
--- NOTE | 2018-01-10 15:31 | PDOC ---
SUBJECTIVE ROS Moaning in pain(same at recent Hospitalization ), states Chest is Hurting- Chronic- recent admission for same Complaint- Post CABG OBJECTIVE Vital Signs Vital Signs Date Time Temp Pulse Resp B/P (MAP) Pulse Ox O2 Delivery O2 Flow Rate FiO2 01/10/18 14:24 99.5 66 18 116/49 (71) 95 Room Air 99.5 I & 0 Intake and Output 01/10/18 07:00 Intake Total 960 ml Balance 960 ml Intake Oral 950 ml Blood Product IV Normal Saline Flush 10 ml # Bowel Movements 7 PHYSICAL EXAM Physical Exam GENERAL: NAD HEENT: OM moist NECK: No JVD LUNGS: Diminished aeration in the bases. Nonlabored. HEART: S1 and S2. ABDOMEN: Obese. Bowel sounds active. Soft, nontender. EXTREMITIES: 1-2+ edema in lower extremities bilaterally,L>R SKIN: No rash. wound, left ischial and large sacral wound LUE, AV fistula unremarkable. NEUROLOGIC: responds to questions minimally. DIAGNOSIS/ASSESSMENT Assessment & Plan ESRD/- On HD TTS, Missed on Wednesday Dialysis Today as Ordered , Seen on HD tolerating well Status post coronary artery bypass grafting in November 2017 at [facility] [place] Hypophosphatemia- Hold Phos Lo , Monitor. Will restart if Phos above goal Anemia- Acute on chronic Post PRBC Diabetes mellitus, type 2. History of cerebrovascular accident with left-sided weakness and is chair bound. DW back sizer COMMENT/RELEVANT DATA Meds Current Medications Medications (Trade) Dose Ordered Sig/Srinath Start Time Stop Time Status Last Admin Dose Admin Acetaminophen (Tylenol) 325 mg PRN Q6HRS PRN 01/10/18 09:15 Acetaminophen/ Hydrocodone Bitart (Lortab 7.5/325) 1 tab PRN Q8HRS PRN 01/10/18 09:45 Amylase/Lipase/ Protease (Zenpep 10,000) 2 cap TIDWMEALS 01/09/18 09:00 01/10/18 12:24 2 CAP Calcium Acetate (Phoslo) 1,334 mg TIDWMEALS 01/09/18 09:00 01/10/18 12:24 1,334 MG Carvedilol (Coreg) 12.5 mg BIDWMEALS 01/09/18 09:00 01/09/18 18:08 12.5 MG Darbepoetin Ty (Aranesp) 60 mcg WEEKLYHS 01/09/18 21:00 01/09/18 21:29 60 MCG Diclofenac Sodium (Voltaren) 1 graciela TID 01/10/18 14:00 01/10/18 14:02 1 GRACIELA Diphenhydramine HCl (Benadryl) 25 mg 1X PRN PRN 01/10/18 14:30 01/11/18 14:29 Info (PHARMACY MONITORING -- do not chart) 1 each PRN DAILY PRN 01/10/18 14:30 Insulin Human Lispro (HumaLOG) 0-5 UNITS TIDAC 01/09/18 11:30 Iohexol (Omnipaque 300 Mg/ml) 75 ml 1X ONCE 01/08/18 18:15 01/08/18 18:16 DC 01/08/18 19:35 75 ML Isosorbide Mononitrate (Imdur) 120 mg DAILY 01/09/18 09:00 01/10/18 08:51 120 MG Lactobacillus Rhamnosus (Culturelle) 1 cap BID 01/10/18 21:00 Lorazepam (Ativan) 1 mg PRN Q4HRS PRN 01/08/18 18:00 01/10/18 09:24 DC 01/09/18 21:30 1 MG Losartan Potassium (Cozaar) 100 mg DAILY 01/09/18 09:00 Magnesium Sulfate 50 ml @ 25 mls/hr PRN DAILY PRN 01/09/18 10:15 Minoxidil (Loniten) 2.5 mg BID 01/09/18 09:00 01/10/18 08:52 2.5 MG Montelukast Sodium (Singulair) 10 mg QHS 01/09/18 21:00 01/09/18 21:30 10 MG Morphine Sulfate (Morphine Sulfate) 2 mg PRN Q2HR PRN 01/08/18 16:00 01/09/18 15:59 DC 01/08/18 17:06 2 MG Nitroglycerin (Nitrostat) 0.4 mg PRN Q5MIN PRN 01/09/18 08:45 Non-Formulary Medication (Insulin Aspart (Novolog Flexpen)) TIDAC 01/09/18 11:30 UNV Ondansetron HCl (Zofran) 4 mg PRN Q6HRS PRN 01/09/18 08:45 01/09/18 21:30 4 MG Pantoprazole Sodium (Protonix) 40 mg DAILYAC 01/09/18 09:00 01/10/18 08:52 40 MG Piperacillin Sod/ Tazobactam Sod (Zosyn Per Pharmacy) 1 each PRN DAILY PRN 01/09/18 11:15 Piperacillin Sod/ Tazobactam Sod 2.25 gm/Sodium Chloride 50 ml @ 100 mls/hr Q8HRS 01/09/18 12:00 01/10/18 12:24 100 MLS/HR Polyethylene Glycol (miraLAX PACKET) 17 gm DAILY 01/09/18 09:00 Sertraline HCl (Zoloft) 100 mg DAILY 01/09/18 09:00 01/10/18 08:55 100 MG Sodium Chloride 1,000 ml @ 400 mls/hr Q2H30M PRN 01/10/18 14:25 01/11/18 02:24 Vancomycin HCl (Vanco Per Pharmacy) 1 each PRN DAILY PRN 01/08/18 15:30 01/10/18 09:47 1 EACH Vancomycin HCl (Vancomycin Random Level) 1 each 1X ONCE 01/10/18 05:00 01/10/18 05:01 DC 01/10/18 05:00 1 EACH Vancomycin HCl 1.75 gm/Sodium Chloride 500 ml @ 250 mls/hr 1X ONCE 01/08/18 15:30 01/08/18 17:29 DC 01/08/18 15:39 250 MLS/HR Vancomycin HCl 500 mg/Sodium Chloride 100 ml @ 100 mls/hr ONCE ONCE 01/10/18 16:00 01/10/18 16:59 Vitamin B Complex/ Vitamin C (Anneliese-Donny) 1 tab DAILY 01/09/18 09:00 01/10/18 08:49 1 TAB Vitamin D (Vitamin D3) 1,000 unit DAILY 01/09/18 09:00 01/10/18 08:49 1,000 UNIT Lab Laboratory Tests Test 01/09/18 16:31 01/09/18 20:40 01/10/18 05:10 01/10/18 07:54 Glucose (Fingerstick) 80 mg/dL (70-99) 75 mg/dL (70-99) 86 mg/dL (70-99) White Blood Count 20.9 x10^3/uL (4.0-11.0) Red Blood Count 2.53 x10^6/uL (3.50-5.40) Hemoglobin 7.3 g/dL (12.0-15.5) Hematocrit 21.8 % (36.0-47.0) Mean Corpuscular Volume 86 fL (79-100) Mean Corpuscular Hemoglobin 29 pg (25-35) Mean Corpuscular Hemoglobin Concent 33 g/dL (31-37) Red Cell Distribution Width 18.2 % (11.5-14.5) Platelet Count 123 x10^3/uL (140-400) Neutrophils (%) (Auto) 91 % (31-73) Lymphocytes (%) (Auto) 3 % (24-48) Monocytes (%) (Auto) 5 % (0-9) Eosinophils (%) (Auto) 0 % (0-3) Basophils (%) (Auto) 0 % (0-3) Neutrophils # (Auto) 19.0 x10^3uL (1.8-7.7) Lymphocytes # (Auto) 0.7 x10^3/uL (1.0-4.8) Monocytes # (Auto) 1.1 x10^3/uL (0.0-1.1) Eosinophils # (Auto) 0.0 x10^3/uL (0.0-0.7) Basophils # (Auto) 0.1 x10^3/uL (0.0-0.2) Sodium Level 131 mmol/L (136-145) Potassium Level 5.3 mmol/L (3.5-5.1) Chloride Level 96 mmol/L (98-107) Carbon Dioxide Level 25 mmol/L (21-32) Anion Gap 10 (6-14) Blood Urea Nitrogen 50 mg/dL (7-20) Creatinine 7.3 mg/dL (0.6-1.0) Estimated GFR (Cockcroft-Gault) 7.0 BUN/Creatinine Ratio 7 (6-20) Glucose Level 87 mg/dL (70-99) Calcium Level 9.2 mg/dL (8.5-10.1) Phosphorus Level 2.3 mg/dL (2.6-4.7) Magnesium Level 2.4 mg/dL (1.8-2.4) Total Bilirubin 1.4 mg/dL (0.2-1.0) Aspartate Amino Transf (AST/SGOT) 37 U/L (15-37) Alanine Aminotransferase (ALT/SGPT) 30 U/L (14-59) Alkaline Phosphatase 280 U/L (46-116) Total Protein 5.9 g/dL (6.4-8.2) Albumin 2.5 g/dL (3.4-5.0) Albumin/Globulin Ratio 0.7 (1.0-1.7) Random Vancomycin Level 22.4 mcg/mL Test 01/10/18 12:02 Glucose (Fingerstick) 99 mg/dL (70-99) Results All relevant outside records, renal labs, imaging studies, telemetry/EKG's were reviewed Ct scan 1. Left lower lobe lung consolidation with air bronchograms identified likely pneumonia or postobstructive atelectasis. Follow-up to resolution. Mild to moderate left pleural effusion has mildly decreased compared to prior exam. 2. Moderate cardiomegaly with coronary artery calcifications. RY ESCOBAR MD Jan 10, 2018 15:31
[2018-01-10] MEDS ORDERED: VANCOMYCIN 500 MG in IV NORMAL SALINE 100ML 100 ML IV ONE (16:00)
[2018-01-10 19:10] VITALS: BP 127/43
[2018-01-10] MEDS: MONTELUKAST SODIUM 10 MG TABLET. PO SCH (20:05)
[2018-01-10] MEDS: LACTOBACILLUS RHAMNOSUS GG 1 CAPSULE. PO SCH (20:06)
[2018-01-10 23:00] VITALS: BP 107/47
[2018-01-11 03:00] VITALS: BP 131/46
[2018-01-11] MEDS: PIPERACILLIN/TAZOBACTAM 2.25 GM in IV NORMAL SALINE 50ML 50 ML IV SCH ×3 (06:00→22:00)
[2018-01-11 07:00] VITALS: BP 115/42
[2018-01-11] MEDS: INSULIN LISPRO 300 UNITS/3 ML INSULN.PEN. SQ SCH ×3 (07:30→16:30)
[2018-01-11] MEDS: CARVEDILOL 12.5 MG TABLET. PO SCH ×2 (08:00→16:39)
[2018-01-11] MEDS: LIPASE/PROTEAS/AMYLAS 10/32/42 CAPSULE.DR. PO SCH ×3 (08:00→17:48)
[2018-01-11] MEDS ORDERED: IV NORMAL SALINE 1000ML BAG 1,000 ML IV PRN (08:06)
--- NOTE | 2018-01-11 08:10 | PDOC ---
KENDELLDeeRUT LANDON CONE PICKER 01/11/18 0810: IM PROGRESS NOTES- Subjective Subjective wakens to name, chest wall pain improved, still with incisional pain sternum Objective Objective No distress Staff reports screaming and confused yesterday, better today. Vitals Vital Signs Date Time Temp Pulse Resp B/P (MAP) Pulse Ox O2 Delivery O2 Flow Rate FiO2 01/11/18 07:54 Room Air 01/11/18 07:00 98.7 66 22 115/42 (66) 96 98.7 Input & Output Intake and Output 01/11/18 07:00 Intake Total 390 ml Balance 390 ml Intake Oral 390 ml # Voids 1 # Bowel Movements 5 Physical Exam Physical Exam General appearance - alert, ill appearing, and in no distress Mental Status - alert, oriented to person, place, and time, affect appropriate to mood Head - normal Chest - clear to auscultation, decreased bases, + chest wall tenderness Heart - S1 and S2 normal Abdomen - soft, nontender, nondistended,obese, BS + Neurological - no acute neurological deficit, wakens to name but falls asleep easily Musculoskeletal - no muscular tenderness noted Extremities - + edema Skin - warm and dry, wound sacral buttocks dressing in situ Labs Laboratory Tests Test 01/09/18 16:31 01/09/18 20:40 01/10/18 05:10 01/10/18 07:54 Glucose (Fingerstick) 80 mg/dL (70-99) 75 mg/dL (70-99) 86 mg/dL (70-99) White Blood Count 20.9 x10^3/uL (4.0-11.0) Red Blood Count 2.53 x10^6/uL (3.50-5.40) Hemoglobin 7.3 g/dL (12.0-15.5) Hematocrit 21.8 % (36.0-47.0) Mean Corpuscular Volume 86 fL (79-100) Mean Corpuscular Hemoglobin 29 pg (25-35) Mean Corpuscular Hemoglobin Concent 33 g/dL (31-37) Red Cell Distribution Width 18.2 % (11.5-14.5) Platelet Count 123 x10^3/uL (140-400) Neutrophils (%) (Auto) 91 % (31-73) Lymphocytes (%) (Auto) 3 % (24-48) Monocytes (%) (Auto) 5 % (0-9) Eosinophils (%) (Auto) 0 % (0-3) Basophils (%) (Auto) 0 % (0-3) Neutrophils # (Auto) 19.0 x10^3uL (1.8-7.7) Lymphocytes # (Auto) 0.7 x10^3/uL (1.0-4.8) Monocytes # (Auto) 1.1 x10^3/uL (0.0-1.1) Eosinophils # (Auto) 0.0 x10^3/uL (0.0-0.7) Basophils # (Auto) 0.1 x10^3/uL (0.0-0.2) Sodium Level 131 mmol/L (136-145) Potassium Level 5.3 mmol/L (3.5-5.1) Chloride Level 96 mmol/L (98-107) Carbon Dioxide Level 25 mmol/L (21-32) Anion Gap 10 (6-14) Blood Urea Nitrogen 50 mg/dL (7-20) Creatinine 7.3 mg/dL (0.6-1.0) Estimated GFR (Cockcroft-Gault) 7.0 BUN/Creatinine Ratio 7 (6-20) Glucose Level 87 mg/dL (70-99) Calcium Level 9.2 mg/dL (8.5-10.1) Phosphorus Level 2.3 mg/dL (2.6-4.7) Magnesium Level 2.4 mg/dL (1.8-2.4) Total Bilirubin 1.4 mg/dL (0.2-1.0) Aspartate Amino Transf (AST/SGOT) 37 U/L (15-37) Alanine Aminotransferase (ALT/SGPT) 30 U/L (14-59) Alkaline Phosphatase 280 U/L (46-116) Total Protein 5.9 g/dL (6.4-8.2) Albumin 2.5 g/dL (3.4-5.0) Albumin/Globulin Ratio 0.7 (1.0-1.7) Random Vancomycin Level 22.4 mcg/mL Test 01/10/18 12:02 01/10/18 20:09 01/11/18 07:11 Glucose (Fingerstick) 99 mg/dL (70-99) 89 mg/dL (70-99) 81 mg/dL (70-99) Laboratory Tests Test 01/10/18 12:02 01/10/18 20:09 01/11/18 07:11 Glucose (Fingerstick) 99 mg/dL (70-99) 89 mg/dL (70-99) 81 mg/dL (70-99) Meds Current Medications Acetaminophen (Tylenol) 325 mg PRN Q6HRS PRN PO FEVER; Start 01/10/18 at 09:15 Acetaminophen/ Hydrocodone Bitart (Lortab 7.5/325) 1 tab PRN Q8HRS PRN PO PAIN MODERATE; Start 01/10/18 at 09:45 Diclofenac Sodium (Voltaren) 1 graciela TID TP Last administered on 01/10/18at 20:05; Start 01/10/18 at 14:00 Diphenhydramine HCl (Benadryl) 25 mg 1X PRN PRN IV ITCHING; Start 01/10/18 at 14 :30; Stop 01/11/18 at 14:29 Diphenhydramine HCl (Benadryl) 25 mg 1X PRN PRN IV ITCHING; Start 01/10/18 at 14 :30; Stop 01/11/18 at 14:29 Info (PHARMACY MONITORING -- do not chart) 1 each PRN DAILY PRN MC SEE COMMENTS ; Start 01/10/18 at 14:30 Lactobacillus Rhamnosus (Culturelle) 1 cap BID PO Last administered on at 20:06; Start 01/10/18 at 21:00 Sodium Chloride 1,000 ml @ 400 mls/hr Q2H30M PRN IV PATENCY; Start 01/10/18 at 14:25; Stop 01/11/18 at 02:24; Status DC Sodium Chloride 1,000 ml @ 1,000 mls/hr Q1H PRN IV hypotension; Start 01/10/18 at 14:25; Stop 01/10/18 at 20:24; Status DC Vancomycin HCl 500 mg/Sodium Chloride 100 ml @ 100 mls/hr ONCE ONCE IV Last administered on 01/10/18at 18:13; Start 01/10/18 at 16:00; Stop 01/10/18 at 16:59; Status DC Assessment Assessment FINAL DIAGNOSIS: 1. Chest pain - chest wall MS pain not costochondritis- sternal incision pain 2. L atelectasis vs infiltrate with h/o 3. leukocytosis and fever 4. metabolic encephalopathy 5. acute on chronic anemia ESRD 6. Chest pain with h/o CABG 11/2017 8. Pressure wound coccyx sacrum with black eschar 9. abnormal troponin with h/o NSTEMI 10. End-stage renal disease, on hemodialysis TTS 11. 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 12. History of hyperparathyroidism secondary to end-stage renal disease. 13. Hyperlipidemia. 14. Severe pulmonary hypertension. 15. Asthma. 16. Gastroesophageal reflux disease. 17. CAD with [place] unknown age and + small ischemia per MPI medical management with recent CABG 18. Negative hepatitis C. 19. moderate severe depression recurrent 20. DM II insulin gastroparesis, ESRD 21. severe PCL malnutrition with decreased po intake 22. moderate weakness and debility 23, depression 24. secondary hyperparathyroidism 25. post op CABG L leg paralysis post op 26. Diastolic congestive heart failure with preserved ejection fraction not acute 27. severe PCL malnutrition with underlying moderate PCL malnutrition 28. h/o recent code blue 29. Pneumonia LL POA with sepsis - HCFA - proable gram neg/gram positive PLAN: chest pain cardiology following Admit troponin 0.046 leukocytosis/ fever/ question infiltrate LLL Chronic LLL effusion pulmonary following - no further thoracentesis at this time CT chest w/o contrast pending fever/leukocytosis Admit WBC 21.7 today 20.9 ESR 35 CRP 20.9 Pre Calcitonin 2.05 ID following Vancomycin zosyn Prelim BC 1 or 7 + for gram + cocci Anemia/thrombocytopenia Admit Hgb 7.3 decreased to 6.4 and today 7.3 post 1U PRC thrombocytopenia Admit 215 today 123 - monitor - r/t infectious process/ antibiotics Severe depression Zoloft continues pysch consult had been ordered [facility] ESRD hemodialysis continued in patient DVT/GI prophylaxis SCD/JEN PPI Screen LTAC 01/11/18 chest wall pain - improved with Voltaren Gel - CT chest w/o noted mild edema identified in the subcutaneous region of the chest similar to prior exam. pressure wound - wound care note reviewed - will obtain surgical consult to eval for debridement - local wound care started sepsis pneumonia - lab pending - Tm 100.7F last 24 hours - ID following - on zosyn and Vanco abnormal CXR -CT chest 01/10- Left lower lobe lung consolidation with air bronchograms identified likely pneumonia or postobstructive atelectasis. ESRD - HD Admit wt 191# today 185.56# - DM II - BS 81-89 Await Select screen Labs pending For further plan of care, please refer to the orders. Plan Plan For more details regarding further plans, please refer to the orders. GAURAV DANG MD 01/11/18 1000: IM PROGRESS NOTES- Assessment Assessment The patient was seen and examined by me. Chart reviewed and plan of care formulated. Discussed with, reviewed and agree with [employer]'s notes, plan of care and orders with modifications as necessary. For more details regarding further plans, please refer to the orders. RUT EDWARDS APRN Jan 11, 2018 08:10 GAUARV DANG MD Jan 11, 2018 10:00
[2018-01-11] MEDS ORDERED: DIALYSIS PATIENT. MC PRN ×2 (08:15)
[2018-01-11] MEDS: LOSARTAN POTASSIUM 50 MG TABLET. PO SCH (08:44)
--- NOTE | 2018-01-11 08:55 | PDOC ---
Infectious Disease Note Subjective Subjective Feeling ok. Denies F/C/S/N/V/D/SOA/rash or pain No appetite Has been refusing to offload ROS ROS o/w neg Vital Sign Vital Signs Vital Signs Date Time Temp Pulse Resp B/P (MAP) Pulse Ox O2 Delivery O2 Flow Rate FiO2 01/11/18 07:54 Room Air 01/11/18 07:00 98.7 66 22 115/42 (66) 96 98.7 Physical Exam PHYSICAL EXAM GENERAL: NAD, alert and calm, in HD HEENT: Normal conjunctivae. Oral mucosa is pink and dry. No thrush. NECK: No JVD LUNGS: Diminished aeration in the bases. Nonlabored. HEART: S1 and S2. ABDOMEN: Obese. Bowel sounds active. Soft, nontender. EXTREMITIES: 1-2+ edema in lower extremities bilaterally. No cyanosis. SKIN: Warm without generalized rash. She has a stage 3 pressure wound, left ischial. She also has a large sacral wound with a dark discoloration and foul odor. Depth is indeterminate. LUE, AV fistula unremarkable. NEUROLOGIC: Alert and answering questions Labs Lab Laboratory Tests Test 01/10/18 12:02 01/10/18 20:09 01/11/18 07:11 Glucose (Fingerstick) 99 mg/dL (70-99) 89 mg/dL (70-99) 81 mg/dL (70-99) Micro CT Chest 01/10 IMPRESSION: 1. Left lower lobe lung consolidation with air bronchograms identified likely pneumonia or postobstructive atelectasis. Follow-up to resolution. Mild to moderate left pleural effusion has mildly decreased compared to prior exam. 2. Moderate cardiomegaly with coronary artery calcifications. Microbiology 01/08/18 Blood Culture - Final, Complete Objective Assessment 1. Leukocytosis - stable but also s/p PRBCs. Labs pending today 2. Fever - improving but also post PRBCs. 3. Pressure wounds of sacral and left ischial areas, present on admission. 4. H/o Left pleural effusion now ? pneumonia on CT. 5. Acute anemia. 6. Chronic kidney disease, on hemodialysis via arteriovenous fistula. 7. Status post coronary artery bypass grafting in November 2017 at [facility]. 8. Chronic heart failure. 9. Diabetes mellitus, type 2. 10. History of cerebrovascular accident with left-sided weakness and is chair bound. Plan Plan of Care Continue vancomycin/Zosyn Surgical eval for wound debridement f/u am labs and BC Local wound care and offloading but d/w nursing and after offloading position is established, she rolls back to previous position on her back. I expressed to her she needs to stay off the wound D/w RN GARFIELD CASTORENA MD Jan 11, 2018 08:55
[2018-01-11] MEDS: DICLOFENAC SODIUM 1% TOPICAL GEL 100GM TUBE. TP SCH ×3 (09:00→20:08)
[2018-01-11] MEDS: LACTOBACILLUS RHAMNOSUS GG 1 CAPSULE. PO SCH ×2 (09:00→20:05)
[2018-01-11] MEDS: ACETAMINOPHEN 500 MG TABLET PO SCH ×3 (09:00→20:06)
[2018-01-11] MEDS: MINOXIDIL 2.5 MG TABLET PO SCH ×2 (09:00→20:06)
[2018-01-11] MEDS: POLYETHYLENE GLYCOL 3350 17 GM PACKET. PO SCH (09:00)
--- NOTE | 2018-01-11 09:11 | PDOC ---
SUBJECTIVE ROS Seen on HD, tolerating well. calm , No complaints OBJECTIVE Vital Signs Vital Signs Date Time Temp Pulse Resp B/P (MAP) Pulse Ox O2 Delivery O2 Flow Rate FiO2 01/11/18 07:54 Room Air 01/11/18 07:00 98.7 66 22 115/42 (66) 96 98.7 I & 0 Intake and Output 01/11/18 07:00 Intake Total 390 ml Balance 390 ml Intake Oral 390 ml # Voids 1 # Bowel Movements 5 PHYSICAL EXAM Physical Exam GENERAL: NAD HEENT: OM moist NECK: No JVD LUNGS: Diminished aeration in the bases. Nonlabored. HEART: S1 and S2. ABDOMEN: Obese. Bowel sounds active. Soft, nontender. EXTREMITIES: 1-2+ edema in lower extremities bilaterally,L>R SKIN: No rash. wound, left ischial and large sacral wound LUE, AV fistula unremarkable. NEUROLOGIC: responds to questions minimally. DIAGNOSIS/ASSESSMENT Assessment & Plan ESRD/- On HD TTS, Missed on Wednesday Dialysis yesterday Again today to put her back on scheduule Seen on hD, tolerating well Continue as Ordered Status post coronary artery bypass grafting in November 2017 at [facility] [place], [place] Hypophosphatemia- Held Phos Lo , Monitor. Will restart if Phos above goal Anemia- Acute on chronic Post PRBC Diabetes mellitus, type 2. History of cerebrovascular accident with left-sided weakness and is chair bound. 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/RELEVANT DATA Meds Current Medications Medications (Trade) Dose Ordered Sig/Srinath Start Time Stop Time Status Last Admin Dose Admin Acetaminophen (Tylenol) 325 mg PRN Q6HRS PRN 01/10/18 09:15 Acetaminophen/ Hydrocodone Bitart (Lortab 7.5/325) 1 tab PRN Q8HRS PRN 01/10/18 09:45 Amylase/Lipase/ Protease (Zenpep 10,000) 2 cap TIDWMEALS 01/09/18 09:00 01/10/18 12:24 2 CAP Calcium Acetate (Phoslo) 1,334 mg TIDWMEALS 01/09/18 09:00 01/10/18 15:33 DC 01/10/18 12:24 1,334 MG Carvedilol (Coreg) 12.5 mg BIDWMEALS 01/09/18 09:00 01/09/18 18:08 12.5 MG Darbepoetin Ty (Aranesp) 60 mcg WEEKLYHS 01/09/18 21:00 01/09/18 21:29 60 MCG Diclofenac Sodium (Voltaren) 1 graciela TID 01/10/18 14:00 01/10/18 20:05 1 GRACIELA Diphenhydramine HCl (Benadryl) 25 mg 1X PRN PRN 01/10/18 14:30 01/11/18 14:29 Info (PHARMACY MONITORING -- do not chart) 1 each PRN DAILY PRN 01/11/18 08:15 01/11/18 08:15 DC Insulin Human Lispro (HumaLOG) 0-5 UNITS TIDAC 01/09/18 11:30 Iohexol (Omnipaque 300 Mg/ml) 75 ml 1X ONCE 01/08/18 18:15 01/08/18 18:16 DC 01/08/18 19:35 75 ML Isosorbide Mononitrate (Imdur) 120 mg DAILY 01/09/18 09:00 01/10/18 08:51 120 MG Lactobacillus Rhamnosus (Culturelle) 1 cap BID 01/10/18 21:00 01/10/18 20:06 1 CAP Lorazepam (Ativan) 1 mg PRN Q4HRS PRN 01/08/18 18:00 01/10/18 09:24 DC 01/09/18 21:30 1 MG Losartan Potassium (Cozaar) 100 mg DAILY 01/09/18 09:00 Magnesium Sulfate 50 ml @ 25 mls/hr PRN DAILY PRN 01/09/18 10:15 Minoxidil (Loniten) 2.5 mg BID 01/09/18 09:00 01/10/18 20:06 2.5 MG Montelukast Sodium (Singulair) 10 mg QHS 01/09/18 21:00 01/10/18 20:05 10 MG Morphine Sulfate (Morphine Sulfate) 2 mg PRN Q2HR PRN 01/08/18 16:00 01/09/18 15:59 DC 01/08/18 17:06 2 MG Nitroglycerin (Nitrostat) 0.4 mg PRN Q5MIN PRN 01/09/18 08:45 Non-Formulary Medication (Insulin Aspart (Novolog Flexpen)) TIDAC 01/09/18 11:30 UNV Ondansetron HCl (Zofran) 4 mg PRN Q6HRS PRN 01/09/18 08:45 01/09/18 21:30 4 MG Pantoprazole Sodium (Protonix) 40 mg DAILYAC 01/09/18 09:00 01/10/18 08:52 40 MG Piperacillin Sod/ Tazobactam Sod (Zosyn Per Pharmacy) 1 each PRN DAILY PRN 01/09/18 11:15 Piperacillin Sod/ Tazobactam Sod 2.25 gm/Sodium Chloride 50 ml @ 100 mls/hr Q8HRS 01/09/18 12:00 01/11/18 06:00 100 MLS/HR Polyethylene Glycol (miraLAX PACKET) 17 gm DAILY 01/09/18 09:00 Sertraline HCl (Zoloft) 100 mg DAILY 01/09/18 09:00 01/10/18 08:55 100 MG Sodium Chloride 1,000 ml @ 1,000 mls/hr Q1H PRN 01/11/18 08:06 01/11/18 14:05 Vancomycin HCl (Vanco Per Pharmacy) 1 each PRN DAILY PRN 01/08/18 15:30 01/10/18 09:47 1 EACH Vancomycin HCl (Vancomycin Random Level) 1 each 1X ONCE 01/10/18 05:00 01/10/18 05:01 DC 01/10/18 05:00 1 EACH Vancomycin HCl 1.75 gm/Sodium Chloride 500 ml @ 250 mls/hr 1X ONCE 01/08/18 15:30 01/08/18 17:29 DC 01/08/18 15:39 250 MLS/HR Vancomycin HCl 500 mg/Sodium Chloride 100 ml @ 100 mls/hr ONCE ONCE 01/10/18 16:00 01/10/18 16:59 DC 01/10/18 18:13 100 MLS/HR Vitamin B Complex/ Vitamin C (Anneliese-Donny) 1 tab DAILY 01/09/18 09:00 01/10/18 08:49 1 TAB Vitamin D (Vitamin D3) 1,000 unit DAILY 01/09/18 09:00 01/10/18 08:49 1,000 UNIT Lab Laboratory Tests Test 01/10/18 12:02 01/10/18 20:09 01/11/18 07:11 Glucose (Fingerstick) 99 mg/dL (70-99) 89 mg/dL (70-99) 81 mg/dL (70-99) Results All relevant outside records, renal labs, imaging studies, telemetry/EKG's were reviewed. RY ESCOBAR MD Jan 11, 2018 09:11
[2018-01-11 09:57] LABS: BASO % 0 % (0-3); EOS % 0 % (0-3); HEMATOCRIT 21.7 % (36.0-47.0); HEMOGLOBIN 7.3 g/dL (12.0-15.5); LYMPH # 0.9 x10^3/uL (1.0-4.8); LYMPH % 4 % (24-48); MEAN CORPUSCULAR HEMOGLOBIN 29 pg (25-35); MEAN CORPUSCULAR HGB CONC 33 g/dL (31-37); MEAN CORPUSCULAR VOLUME 87 fL (79-100); MONO # 1.1 x10^3/uL (0.0-1.1); MONO % 5 % (0-9); NEUT # 22.6 x10^3uL (1.8-7.7); NEUT % 92 % (31-73); PLATELET COUNT 129 x10^3/uL (140-400); RED BLOOD COUNT 2.51 x10^6/uL (3.50-5.40); RED CELL DISTRIBUTION WIDTH 18.6 % (11.5-14.5); WHITE BLOOD COUNT 24.7 x10^3/uL (4.0-11.0)
[2018-01-11 10:14] LABS: ALBUMIN 2.4 g/dL (3.4-5.0); CALCIUM 9.5 mg/dL (8.5-10.1); CREATININE 4.3 mg/dL (0.6-1.0); GFR 12.9; MAGNESIUM 2.2 mg/dL (1.8-2.4); PHOSPHORUS 1.9 mg/dL (2.6-4.7)
[2018-01-11] MEDS: PANTOPRAZOLE 40 MG TABLET.DR. PO SCH (12:12)
[2018-01-11] MEDS: SERTRALINE 50 MG TABLET. PO SCH (12:15)
[2018-01-11] MEDS: CHOLECALCIFEROL (VITAMIN D3) 1,000 UNIT TABLET PO SCH (12:15)
[2018-01-11] MEDS: ISOSORBIDE MONONITRATE ER 30 MG TAB.ER.24H PO SCH (12:15)
[2018-01-11] MEDS: FOLIC/VIT B COMP W-C (RENAL) TABLET. PO SCH (12:15)
[2018-01-11] MEDS: VANCOMYCIN PER PHARMACY MC PRN (13:32)
[2018-01-11 15:00] VITALS: BP 100/65
[2018-01-11] MEDS ORDERED: VANCOMYCIN 500 MG in IV NORMAL SALINE 100ML 100 ML IV SCH (16:00)
--- NOTE | 2018-01-11 16:15 | PDOC2 ---
CONSULT Date of Consult Date of Consult DATE: 01/11/18 TIME: 16:11 Reason for Consult Reason for Consult: Sacral decub ulcer Referring Physician Referring Physician: Hernandez Identification/Chief Complaint Chief Complaint sacral pain Source Source: Chart review, Patient History of Present Illness Reason for Visit: 57 yo F with multiple medical problems. Noted to have developed large sacral ulcer, necrotic in nature. Not responding to other treatments. Pt is currently upset secondary to pain. Past Medical History Cardiovascular: CAD, CHF, HTN, Hyperlipidemia, Pulmonary hypertension Pulmonary: Asthma CENTRAL NERVOUS SYSTEM: CVA GI: GERD Heme/Onc: Anemia NOS Hepatobiliary: Hep A/B/C Psych: Addictions, Depression Musculoskeletal: Osteoarthritis Renal/: Chronic renal failure Endocrine: Diabetes Past Surgical History Past Surgical History: Cholecystectomy, CABG, Hysterectomy, Other Family History Family History: Heart Disease, Kidney Disease Social History ALCOHOL: none Drugs: None Lives: Prison Current Problem List Problem List Problems Medical Problems: (1) End stage renal disease Status: Acute Current Medications Current Medications Current Medications Morphine Sulfate (Morphine Sulfate) 6 mg 1X ONCE IV Last administered on at 13:35; Start 01/08/18 at 13:00; Stop 01/08/18 at 13:01; Status DC Vancomycin HCl (Vanco Per Pharmacy) 1 each PRN DAILY PRN MC SEE COMMENTS Last administered on 01/11/18at 13:32; Start 01/08/18 at 15:30 Vancomycin HCl 1.75 gm/Sodium Chloride 500 ml @ 250 mls/hr 1X ONCE IV Last administered on 01/08/18at 15:39; Start 01/08/18 at 15:30; Stop 01/08/18 at 17:29; Status DC Ondansetron HCl (Zofran) 4 mg PRN Q8HRS PRN IV NAUSEA/VOMITING Last administered on 01/08/18at 21:44; Start 01/08/18 at 16:00; Stop 01/09/18 at 08:45; Status DC Morphine Sulfate (Morphine Sulfate) 2 mg PRN Q2HR PRN IV PAIN Last administered on 01/08/18at 17:06; Start 01/08/18 at 16:00; Stop 01/09/18 at 15:59; Status DC Vancomycin HCl (Vancomycin Random Level) 1 each 1X ONCE MC Last administered on 01/10/18at 05:00; Start 01/10/18 at 05:00; Stop 01/10/18 at 05:01; Status DC Lorazepam (Ativan) 1 mg PRN Q4HRS PRN IV ANXIETY / AGITATION Last administered on 01/09/18 21:30; Start 01/08/18 at 18:00; Stop 01/10/18 at 09:24; Status DC Acetaminophen (Tylenol) 650 mg PRN Q6HRS PRN PO FEVER; Start 01/08/18 at 18:00; Stop 01/10/18 at 09:24; Status DC Iohexol (Omnipaque 300 Mg/ml) 75 ml 1X ONCE IV Last administered on 01/08/18at 19:35; Start 01/08/18 at 18:15; Stop 01/08/18 at 18:16; Status DC Ondansetron HCl (Zofran) 4 mg PRN Q6HRS PRN IV NAUSEA/VOMITING Last administered on 01/09/18 21:30; Start 01/09/18 at 08:45 Sodium Chloride 1,000 ml @ 100 mls/hr Q10H IV ; Start 01/09/18 at 09:00; Stop at 11:32; Status DC Acetaminophen (Tylenol) 1,000 mg TID PO Last administered on 01/11/18 12:12; Start 01/09/18 at 09:00 Carvedilol (Coreg) 12.5 mg BIDWMEALS PO Last administered on 01/09/18 18:08; Start 01/09/18 at 09:00 Vitamin D (Vitamin D3) 1,000 unit DAILY PO Last administered on 01/11/18 12:15 ; Start 01/09/18 at 09:00 Diphenhydramine HCl (Benadryl) 25 mg PRN Q6HRS PRN PO ITCHING; Start 01/09/18 at 08:45 Vitamin B Complex/ Vitamin C (Anneliese-Donny) 1 tab DAILY PO Last administered on 12:15; Start 01/09/18 at 09:00 Isosorbide Mononitrate (Imdur) 120 mg DAILY PO Last administered on 01/11/18 12 :15; Start 01/09/18 at 09:00 Amylase/Lipase/ Protease (Zenpep 10,000) 2 cap TIDWMEALS PO Last administered on 01/11/18at 12:19; Start 01/09/18 at 09:00 Nitroglycerin (Nitrostat) 0.4 mg PRN Q5MIN PRN SL CHEST PAIN; Start 01/09/18 at 08:45 Pantoprazole Sodium (Protonix) 40 mg DAILYAC PO Last administered on 01/11/18at 12:12; Start 01/09/18 at 09:00 Non-Formulary Medication (Insulin Aspart (Novolog Flexpen)) TIDAC SQ ; Start at 11:30; Status UNV Losartan Potassium (Cozaar) 100 mg DAILY PO ; Start 01/09/18 at 09:00 Minoxidil (Loniten) 2.5 mg BID PO Last administered on 01/10/18at 20:06; Start at 09:00 Montelukast Sodium (Singulair) 10 mg QHS PO Last administered on 01/10/18at 20:05 ; Start 01/09/18 at 21:00 Polyethylene Glycol (miraLAX PACKET) 17 gm DAILY PO ; Start 01/09/18 at 09:00 Sertraline HCl (Zoloft) 100 mg DAILY PO Last administered on 01/11/18at 12:15; Start 01/09/18 at 09:00 Calcium Acetate (Phoslo) 1,334 mg TIDWMEALS PO Last administered on 01/10/18at 12 :24; Start 01/09/18 at 09:00; Stop 01/10/18 at 15:33; Status DC Insulin Human Lispro (HumaLOG) 0-5 UNITS TIDAC SQ ; Start 01/09/18 at 11:30 Magnesium Sulfate 50 ml @ 25 mls/hr PRN DAILY PRN IV for Mag < 1.7 on am labs; Start 01/09/18 at 10:15 Darbepoetin Ty (Aranesp) 60 mcg WEEKLYHS SQ Last administered on 01/09/18at 21: 29; Start 01/09/18 at 21:00 Piperacillin Sod/ Tazobactam Sod (Zosyn Per Pharmacy) 1 each PRN DAILY PRN MC SEE COMMENTS; Start 01/09/18 at 11:15 Piperacillin Sod/ Tazobactam Sod 2.25 gm/Sodium Chloride 50 ml @ 100 mls/hr Q8HRS IV Last administered on 01/11/18at 06:00; Start 01/09/18 at 12:00 Acetaminophen (Tylenol) 325 mg PRN Q6HRS PRN PO FEVER; Start 01/10/18 at 09:15 Lactobacillus Rhamnosus (Culturelle) 1 cap BID PO Last administered on at 20:06; Start 01/10/18 at 21:00 Acetaminophen/ Hydrocodone Bitart (Lortab 7.5/325) 1 tab PRN Q8HRS PRN PO PAIN MODERATE; Start 01/10/18 at 09:45 Diclofenac Sodium (Voltaren) 1 graciela TID TP Last administered on 01/11/18at 12:19; Start 01/10/18 at 14:00 Vancomycin HCl 500 mg/Sodium Chloride 100 ml @ 100 mls/hr ONCE ONCE IV Last administered on 01/10/18at 18:13; Start 01/10/18 at 16:00; Stop 01/10/18 at 16:59; Status DC Sodium Chloride 1,000 ml @ 1,000 mls/hr Q1H PRN IV hypotension; Start 01/10/18 at 14:25; Stop 01/10/18 at 20:24; Status DC Diphenhydramine HCl (Benadryl) 25 mg 1X PRN PRN IV ITCHING; Start 01/10/18 at 14 :30; Stop 01/11/18 at 14:29; Status DC Diphenhydramine HCl (Benadryl) 25 mg 1X PRN PRN IV ITCHING; Start 01/10/18 at 14 :30; Stop 01/11/18 at 14:29; Status DC Sodium Chloride 1,000 ml @ 400 mls/hr Q2H30M PRN IV PATENCY; Start 01/10/18 at 14:25; Stop 01/11/18 at 02:24; Status DC Info (PHARMACY MONITORING -- do not chart) 1 each PRN DAILY PRN MC SEE COMMENTS ; Start 01/10/18 at 14:30 Sodium Chloride 1,000 ml @ 1,000 mls/hr Q1H PRN IV hypotension; Start 01/11/18 at 08:06; Stop 01/11/18 at 14:05; Status DC Info (PHARMACY MONITORING -- do not chart) 1 each PRN DAILY PRN MC SEE COMMENTS ; Start 01/11/18 at 08:15; Stop 01/11/18 at 08:15; Status DC Info (PHARMACY MONITORING -- do not chart) 1 each PRN DAILY PRN MC SEE COMMENTS ; Start 01/11/18 at 08:15; Stop 01/11/18 at 08:15; Status DC Vancomycin HCl 500 mg/Sodium Chloride 100 ml @ 100 mls/hr QTUTHSA IV ; Start at 16:00 Active Scripts Active Vitamin D3 (Cholecalciferol (Vitamin D3)) 1,000 Unit Tablet 1 Tab PO DAILY [Calcium Acetate] 667 MG Capsule 1,334 Mg PO TIDWMEALS Mapap (Acetaminophen) 500 Mg Tablet 1,000 Mg PO TID Carvedilol 12.5 Mg Tablet 12.5 Mg PO BIDWMEALS Minoxidil 2.5 Mg Tablet 2.5 Mg PO BID Isosorbide Mononitrate Er (Isosorbide Mononitrate) 30 Mg Tab.er.24h 120 Mg PO DAILY Montelukast Sodium Tablet (Montelukast Sodium) 10 Mg Tablet 10 Mg PO QHS Polyethylene Glycol 3350 2,500 Gm Powder 17 Gm PO DAILY Novolog Flexpen (Insulin Aspart) 100 Unit/1 Ml Insuln.pen 0 Units SQ TIDAC Take sub q tid ac: BS 151-200=2 unit, 201-250=3 unit, [id number], BS 301-350=6 unit, BS 351-400 =8 unit. BS>401 call MD Renetta Busch 10,000 Units Capsule (Lipase/Protease/Amylase) 1 Each Capsule. 2 Cap PO TIDWMEALS TAke 2 cap tid with meals Nephro-Donny Tablet (Folic Acid/Vitamin B Comp W-C) 0.8 Mg Tablet 1 Tab PO DAILY Benadryl (Diphenhydramine Hcl) 25 Mg Capsule 25 Mg PO PRN Q6HRS PRN Reported Nitrostat (Nitroglycerin) 0.4 Mg Tab.subl 0.4 Mg SL PRN Q5MIN PRN Plavix (Clopidogrel Bisulfate) 75 Mg Tablet 1 Tab PO DAILY Zoloft (Sertraline Hcl) 100 Mg Tablet 1 Tab PO DAILY Pantoprazole Sodium 40 Mg Tablet. 1 Tab PO DAILY Losartan Potassium 100 Mg Tablet 100 Mg PO DAILY Aspir 81 (Aspirin) 81 Mg Tablet. 81 Mg PO DAILY Allergies Allergies: Coded Allergies: amitriptyline (Verified Allergy, Intermediate, 11/09/16) hydromorphone (Verified Allergy, Intermediate, LORTAB OK AT HOME, 05/05/17 ) lisinopril (Verified Allergy, Intermediate, 11/09/16) metformin (Verified Allergy, Intermediate, 11/09/16) I S O L A T I O N *CONTACT* (Verified Allergy, Unknown, 11/09/16) mrsa ROS Review of System unobtainable Physical Exam General: Alert, Cooperative, moderate distress HEENT: Atraumatic Lungs: Normal air movement Abdomen: Soft, No tenderness Skin: Other (reviewed wound care pictures of ulcer) Neuro: Normal speech Vitals VITALS Vital Signs Date Time Temp Pulse Resp B/P (MAP) Pulse Ox O2 Delivery O2 Flow Rate FiO2 01/11/18 12:15 64 137/61 01/11/18 07:54 Room Air 01/11/18 07:00 98.7 22 96 98.7 Labs Labs Laboratory Tests Test 01/09/18 16:31 01/09/18 20:40 01/10/18 05:10 01/10/18 07:54 Glucose (Fingerstick) 80 mg/dL (70-99) 75 mg/dL (70-99) 86 mg/dL (70-99) White Blood Count 20.9 x10^3/uL (4.0-11.0) Red Blood Count 2.53 x10^6/uL (3.50-5.40) Hemoglobin 7.3 g/dL (12.0-15.5) Hematocrit 21.8 % (36.0-47.0) Mean Corpuscular Volume 86 fL (79-100) Mean Corpuscular Hemoglobin 29 pg (25-35) Mean Corpuscular Hemoglobin Concent 33 g/dL (31-37) Red Cell Distribution Width 18.2 % (11.5-14.5) Platelet Count 123 x10^3/uL (140-400) Neutrophils (%) (Auto) 91 % (31-73) Lymphocytes (%) (Auto) 3 % (24-48) Monocytes (%) (Auto) 5 % (0-9) Eosinophils (%) (Auto) 0 % (0-3) Basophils (%) (Auto) 0 % (0-3) Neutrophils # (Auto) 19.0 x10^3uL (1.8-7.7) Lymphocytes # (Auto) 0.7 x10^3/uL (1.0-4.8) Monocytes # (Auto) 1.1 x10^3/uL (0.0-1.1) Eosinophils # (Auto) 0.0 x10^3/uL (0.0-0.7) Basophils # (Auto) 0.1 x10^3/uL (0.0-0.2) Sodium Level 131 mmol/L (136-145) Potassium Level 5.3 mmol/L (3.5-5.1) Chloride Level 96 mmol/L (98-107) Carbon Dioxide Level 25 mmol/L (21-32) Anion Gap 10 (6-14) Blood Urea Nitrogen 50 mg/dL (7-20) Creatinine 7.3 mg/dL (0.6-1.0) Estimated GFR (Cockcroft-Gault) 7.0 BUN/Creatinine Ratio 7 (6-20) Glucose Level 87 mg/dL (70-99) Calcium Level 9.2 mg/dL (8.5-10.1) Phosphorus Level 2.3 mg/dL (2.6-4.7) Magnesium Level 2.4 mg/dL (1.8-2.4) Total Bilirubin 1.4 mg/dL (0.2-1.0) Aspartate Amino Transf (AST/SGOT) 37 U/L (15-37) Alanine Aminotransferase (ALT/SGPT) 30 U/L (14-59) Alkaline Phosphatase 280 U/L (46-116) Total Protein 5.9 g/dL (6.4-8.2) Albumin 2.5 g/dL (3.4-5.0) Albumin/Globulin Ratio 0.7 (1.0-1.7) Random Vancomycin Level 22.4 mcg/mL Test 01/10/18 12:02 01/10/18 20:09 01/11/18 07:11 01/11/18 08:00 Glucose (Fingerstick) 99 mg/dL (70-99) 89 mg/dL (70-99) 81 mg/dL (70-99) Sodium Level 137 mmol/L (136-145) Potassium Level 4.0 mmol/L (3.5-5.1) Chloride Level 99 mmol/L (98-107) Carbon Dioxide Level 27 mmol/L (21-32) Anion Gap 11 (6-14) Blood Urea Nitrogen 23 mg/dL (7-20) Creatinine 4.3 mg/dL (0.6-1.0) Estimated GFR (Cockcroft-Gault) 12.9 Glucose Level 76 mg/dL (70-99) Calcium Level 9.5 mg/dL (8.5-10.1) Phosphorus Level 1.9 mg/dL (2.6-4.7) Magnesium Level 2.2 mg/dL (1.8-2.4) Albumin 2.4 g/dL (3.4-5.0) Test 01/11/18 09:17 01/11/18 12:11 White Blood Count 24.7 x10^3/uL (4.0-11.0) Red Blood Count 2.51 x10^6/uL (3.50-5.40) Hemoglobin 7.3 g/dL (12.0-15.5) Hematocrit 21.7 % (36.0-47.0) Mean Corpuscular Volume 87 fL (79-100) Mean Corpuscular Hemoglobin 29 pg (25-35) Mean Corpuscular Hemoglobin Concent 33 g/dL (31-37) Red Cell Distribution Width 18.6 % (11.5-14.5) Platelet Count 129 x10^3/uL (140-400) Neutrophils (%) (Auto) 92 % (31-73) Lymphocytes (%) (Auto) 4 % (24-48) Monocytes (%) (Auto) 5 % (0-9) Eosinophils (%) (Auto) 0 % (0-3) Basophils (%) (Auto) 0 % (0-3) Neutrophils # (Auto) 22.6 x10^3uL (1.8-7.7) Lymphocytes # (Auto) 0.9 x10^3/uL (1.0-4.8) Monocytes # (Auto) 1.1 x10^3/uL (0.0-1.1) Eosinophils # (Auto) 0.0 x10^3/uL (0.0-0.7) Basophils # (Auto) 0.0 x10^3/uL (0.0-0.2) Glucose (Fingerstick) 80 mg/dL (70-99) Laboratory Tests Test 01/10/18 20:09 01/11/18 07:11 01/11/18 08:00 01/11/18 09:17 Glucose (Fingerstick) 89 mg/dL (70-99) 81 mg/dL (70-99) Sodium Level 137 mmol/L (136-145) Potassium Level 4.0 mmol/L (3.5-5.1) Chloride Level 99 mmol/L (98-107) Carbon Dioxide Level 27 mmol/L (21-32) Anion Gap 11 (6-14) Blood Urea Nitrogen 23 mg/dL (7-20) Creatinine 4.3 mg/dL (0.6-1.0) Estimated GFR (Cockcroft-Gault) 12.9 Glucose Level 76 mg/dL (70-99) Calcium Level 9.5 mg/dL (8.5-10.1) Phosphorus Level 1.9 mg/dL (2.6-4.7) Magnesium Level 2.2 mg/dL (1.8-2.4) Albumin 2.4 g/dL (3.4-5.0) White Blood Count 24.7 x10^3/uL (4.0-11.0) Red Blood Count 2.51 x10^6/uL (3.50-5.40) Hemoglobin 7.3 g/dL (12.0-15.5) Hematocrit 21.7 % (36.0-47.0) Mean Corpuscular Volume 87 fL (79-100) Mean Corpuscular Hemoglobin 29 pg (25-35) Mean Corpuscular Hemoglobin Concent 33 g/dL (31-37) Red Cell Distribution Width 18.6 % (11.5-14.5) Platelet Count 129 x10^3/uL (140-400) Neutrophils (%) (Auto) 92 % (31-73) Lymphocytes (%) (Auto) 4 % (24-48) Monocytes (%) (Auto) 5 % (0-9) Eosinophils (%) (Auto) 0 % (0-3) Basophils (%) (Auto) 0 % (0-3) Neutrophils # (Auto) 22.6 x10^3uL (1.8-7.7) Lymphocytes # (Auto) 0.9 x10^3/uL (1.0-4.8) Monocytes # (Auto) 1.1 x10^3/uL (0.0-1.1) Eosinophils # (Auto) 0.0 x10^3/uL (0.0-0.7) Basophils # (Auto) 0.0 x10^3/uL (0.0-0.2) Test 01/11/18 12:11 Glucose (Fingerstick) 80 mg/dL (70-99) Assessment/Plan Assessment/Plan Sacral ulcer TO OR for debridement in AM R/R/B/A d/w pt and pt's family. Risks, including, but not limited to: bleeding , infection, damage to surrounding structures. They appear to understand, their questions are answered and they elect to proceed. Thanks for consult! BRIT CHANEY MD Jan 11, 2018 16:15
[2018-01-11 19:15] VITALS: BP 122/72
[2018-01-11] MEDS: MONTELUKAST SODIUM 10 MG TABLET. PO SCH (20:05)
[2018-01-11] MEDS: HYDROcodone/APAP 7.5/325MG 1 TAB TABLET PO PRN (21:25)
[2018-01-11 22:45] VITALS: BP 124/51
[2018-01-12 02:45] VITALS: BP 130/48
[2018-01-12] MEDS: PIPERACILLIN/TAZOBACTAM 2.25 GM in IV NORMAL SALINE 50ML 50 ML IV SCH ×3 (05:04→21:42)
[2018-01-12 07:00] VITALS: BP 119/52
[2018-01-12] MEDS: INSULIN LISPRO 300 UNITS/3 ML INSULN.PEN. SQ SCH ×3 (07:30→16:30)
[2018-01-12] MEDS: ONDANSETRON PF 4 MG/2 ML VIAL. IV PRN (07:53)
[2018-01-12] MEDS: LIPASE/PROTEAS/AMYLAS 10/32/42 CAPSULE.DR. PO SCH ×3 (08:00→17:00)
--- NOTE | 2018-01-12 08:16 | PDOC ---
Infectious Disease Note Subjective Subjective Had some N/V this am. Tearful as labs about to be drawn on RUE Denies F/C/S/D/SOA/rash some backside pain today but currently sitting up Has been refusing to offload ROS ROS o/w neg Vital Sign Vital Signs Vital Signs Date Time Temp Pulse Resp B/P (MAP) Pulse Ox O2 Delivery O2 Flow Rate FiO2 01/12/18 07:00 98.3 68 20 119/52 (74) 96 Room Air 98.3 Physical Exam PHYSICAL EXAM GENERAL: NAD, alert and tearful and a little anxious HEENT: Normal conjunctivae. Oral mucosa is pink and dry. No thrush. NECK: No JVD LUNGS: Diminished aeration in the bases. Nonlabored. HEART: S1 and S2. ABDOMEN: Obese. Bowel sounds active. Soft, nontender. EXTREMITIES: 1-2+ edema in lower extremities bilaterally. No cyanosis. SKIN: Warm without generalized rash. LUE, AV fistula unremarkable. NEUROLOGIC: Alert and answering questions Labs Lab Laboratory Tests Test 01/11/18 09:17 01/11/18 12:11 01/11/18 16:38 01/11/18 20:32 White Blood Count 24.7 x10^3/uL (4.0-11.0) Red Blood Count 2.51 x10^6/uL (3.50-5.40) Hemoglobin 7.3 g/dL (12.0-15.5) Hematocrit 21.7 % (36.0-47.0) Mean Corpuscular Volume 87 fL (79-100) Mean Corpuscular Hemoglobin 29 pg (25-35) Mean Corpuscular Hemoglobin Concent 33 g/dL (31-37) Red Cell Distribution Width 18.6 % (11.5-14.5) Platelet Count 129 x10^3/uL (140-400) Neutrophils (%) (Auto) 92 % (31-73) Lymphocytes (%) (Auto) 4 % (24-48) Monocytes (%) (Auto) 5 % (0-9) Eosinophils (%) (Auto) 0 % (0-3) Basophils (%) (Auto) 0 % (0-3) Neutrophils # (Auto) 22.6 x10^3uL (1.8-7.7) Lymphocytes # (Auto) 0.9 x10^3/uL (1.0-4.8) Monocytes # (Auto) 1.1 x10^3/uL (0.0-1.1) Eosinophils # (Auto) 0.0 x10^3/uL (0.0-0.7) Basophils # (Auto) 0.0 x10^3/uL (0.0-0.2) Glucose (Fingerstick) 80 mg/dL (70-99) 147 mg/dL (70-99) 169 mg/dL (70-99) Test 01/12/18 07:16 Glucose (Fingerstick) 126 mg/dL (70-99) Micro CT Chest 01/10 IMPRESSION: 1. Left lower lobe lung consolidation with air bronchograms identified likely pneumonia or postobstructive atelectasis. Follow-up to resolution. Mild to moderate left pleural effusion has mildly decreased compared to prior exam. 2. Moderate cardiomegaly with coronary artery calcifications. Microbiology 01/08/18 Blood Culture - Final, Complete Objective Assessment 1. Leukocytosis - stable but also s/p PRBCs. Labs pending today but up yesterday 2. Fever - improved. 3. Pressure wounds of sacral and left ischial areas, present on admission. 4. H/o Left pleural effusion now ? pneumonia on CT. 5. Acute anemia. 6. Chronic kidney disease, on hemodialysis via arteriovenous fistula. 7. Status post coronary artery bypass grafting in November 2017 at [facility]. 8. Chronic heart failure. 9. Diabetes mellitus, type 2. 10. History of cerebrovascular accident with left-sided weakness and is chair bound. Plan Plan of Care Continue vancomycin/Zosyn Add micafungin today Surgical wound debridement today f/u am labs and BC Local wound care and offloading but d/w nursing and after offloading position is established, she rolls back to previous position on her back. I expressed to her she needs to stay off the wound D/w Rafael FLORES D/w family friend GARFIELD CASTORENA MD Jan 12, 2018 08:16
--- NOTE | 2018-01-12 08:29 | PDOC ---
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 Nausea Vitals Vital Signs Date Time Temp Pulse Resp B/P (MAP) Pulse Ox O2 Delivery O2 Flow Rate FiO2 01/12/18 07:00 98.3 68 20 119/52 (74) 96 Room Air 98.3 Input & Output Intake and Output 01/12/18 07:00 Intake Total 765 ml Balance 765 ml Intake Oral 565 ml IV Total 200 ml Physical Exam Physical Exam General appearance - alert, ill appearing, and in moderate distress distress Mental Status - alert, oriented to person, place, and time, moaning Head - normal Chest - clear to auscultation, decreased bases, + chest wall tenderness Heart - S1 and S2 normal Abdomen - soft, nontender, nondistended,obese, BS + Neurological - no acute neurological deficit, wakens to name but falls asleep easily Musculoskeletal - no muscular tenderness noted Extremities - + edema Skin - warm and dry, wound sacral buttocks dressing in situ Labs Laboratory Tests Test 01/10/18 12:02 01/10/18 20:09 01/11/18 07:11 01/11/18 08:00 Glucose (Fingerstick) 99 mg/dL (70-99) 89 mg/dL (70-99) 81 mg/dL (70-99) Sodium Level 137 mmol/L (136-145) Potassium Level 4.0 mmol/L (3.5-5.1) Chloride Level 99 mmol/L (98-107) Carbon Dioxide Level 27 mmol/L (21-32) Anion Gap 11 (6-14) Blood Urea Nitrogen 23 mg/dL (7-20) Creatinine 4.3 mg/dL (0.6-1.0) Estimated GFR (Cockcroft-Gault) 12.9 Glucose Level 76 mg/dL (70-99) Calcium Level 9.5 mg/dL (8.5-10.1) Phosphorus Level 1.9 mg/dL (2.6-4.7) Magnesium Level 2.2 mg/dL (1.8-2.4) Albumin 2.4 g/dL (3.4-5.0) Test 01/11/18 09:17 01/11/18 12:11 01/11/18 16:38 01/11/18 20:32 White Blood Count 24.7 x10^3/uL (4.0-11.0) Red Blood Count 2.51 x10^6/uL (3.50-5.40) Hemoglobin 7.3 g/dL (12.0-15.5) Hematocrit 21.7 % (36.0-47.0) Mean Corpuscular Volume 87 fL (79-100) Mean Corpuscular Hemoglobin 29 pg (25-35) Mean Corpuscular Hemoglobin Concent 33 g/dL (31-37) Red Cell Distribution Width 18.6 % (11.5-14.5) Platelet Count 129 x10^3/uL (140-400) Neutrophils (%) (Auto) 92 % (31-73) Lymphocytes (%) (Auto) 4 % (24-48) Monocytes (%) (Auto) 5 % (0-9) Eosinophils (%) (Auto) 0 % (0-3) Basophils (%) (Auto) 0 % (0-3) Neutrophils # (Auto) 22.6 x10^3uL (1.8-7.7) Lymphocytes # (Auto) 0.9 x10^3/uL (1.0-4.8) Monocytes # (Auto) 1.1 x10^3/uL (0.0-1.1) Eosinophils # (Auto) 0.0 x10^3/uL (0.0-0.7) Basophils # (Auto) 0.0 x10^3/uL (0.0-0.2) Glucose (Fingerstick) 80 mg/dL (70-99) 147 mg/dL (70-99) 169 mg/dL (70-99) Test 01/12/18 07:16 Glucose (Fingerstick) 126 mg/dL (70-99) Laboratory Tests Test 01/11/18 09:17 01/11/18 12:11 01/11/18 16:38 01/11/18 20:32 White Blood Count 24.7 x10^3/uL (4.0-11.0) Red Blood Count 2.51 x10^6/uL (3.50-5.40) Hemoglobin 7.3 g/dL (12.0-15.5) Hematocrit 21.7 % (36.0-47.0) Mean Corpuscular Volume 87 fL (79-100) Mean Corpuscular Hemoglobin 29 pg (25-35) Mean Corpuscular Hemoglobin Concent 33 g/dL (31-37) Red Cell Distribution Width 18.6 % (11.5-14.5) Platelet Count 129 x10^3/uL (140-400) Neutrophils (%) (Auto) 92 % (31-73) Lymphocytes (%) (Auto) 4 % (24-48) Monocytes (%) (Auto) 5 % (0-9) Eosinophils (%) (Auto) 0 % (0-3) Basophils (%) (Auto) 0 % (0-3) Neutrophils # (Auto) 22.6 x10^3uL (1.8-7.7) Lymphocytes # (Auto) 0.9 x10^3/uL (1.0-4.8) Monocytes # (Auto) 1.1 x10^3/uL (0.0-1.1) Eosinophils # (Auto) 0.0 x10^3/uL (0.0-0.7) Basophils # (Auto) 0.0 x10^3/uL (0.0-0.2) Glucose (Fingerstick) 80 mg/dL (70-99) 147 mg/dL (70-99) 169 mg/dL (70-99) Test 01/12/18 07:16 Glucose (Fingerstick) 126 mg/dL (70-99) Meds Current Medications Fentanyl Citrate (Fentanyl 2ml Vial) 50 mcg PRN Q4HRS PRN IV PAIN; Start at 08:15; Status UNV Vancomycin HCl 500 mg/Sodium Chloride 100 ml @ 100 mls/hr QTUTHSA IV Last administered on 01/11/18at 20:41; Start 01/11/18 at 16:00 Assessment Assessment FINAL DIAGNOSIS: 1. Chest pain - chest wall MS pain not costochondritis- sternal incision pain 2. LLL pneumonia HCFA gram - gram + with sepsis POA 3. sepsis - LLL pneumonia/ probable infected pressure wound sacral/buttocks 4. metabolic encephalopathy 5. acute on chronic anemia ESRD 6. Chest pain with h/o CABG 11/2017 8. Pressure wound coccyx sacrum with black eschar 9. abnormal troponin with h/o NSTEMI 10. End-stage renal disease, on hemodialysis TTS 11. 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 12. History of hyperparathyroidism secondary to end-stage renal disease. 13. Hyperlipidemia. 14. Severe pulmonary hypertension. 15. Asthma. 16. Gastroesophageal reflux disease. 17. CAD with [place] unknown age and + small ischemia per [facility] medical management with recent CABG 18. Negative hepatitis C. 19. moderate severe depression recurrent 20. DM II insulin gastroparesis, ESRD 21. severe PCL malnutrition with decreased po intake 22. moderate weakness and debility 23, depression 24. secondary hyperparathyroidism 25. post op CABG L leg paralysis post op 26. Diastolic congestive heart failure with preserved ejection fraction not acute 27. severe PCL malnutrition with underlying moderate PCL malnutrition 28. h/o recent code blue PLAN: chest pain cardiology following Admit troponin 0.046 leukocytosis/ fever/ question infiltrate LLL Chronic LLL effusion pulmonary following - no further thoracentesis at this time CT chest w/o contrast pending fever/leukocytosis Admit WBC 21.7 today 20.9 ESR 35 CRP 20.9 Pre Calcitonin 2.05 ID following Vancomycin zosyn Prelim BC 1 or 7 + for gram + cocci Anemia/thrombocytopenia Admit Hgb 7.3 decreased to 6.4 and today 7.3 post 1U PRC thrombocytopenia Admit 215 today 123 - monitor - r/t infectious process/ antibiotics Severe depression Zoloft continues pysch consult had been ordered [facility] ESRD hemodialysis continued in patient DVT/GI prophylaxis SCD/JEN PPI Screen LTAC 01/11/18 chest wall pain - improved with Voltaren Gel - CT chest w/o noted mild edema identified in the subcutaneous region of the chest similar to prior exam. pressure wound - wound care note reviewed - will obtain surgical consult to eval for debridement - local wound care started sepsis pneumonia - lab pending - Tm 100.7F last 24 hours - ID following - on zosyn and Vanco abnormal CXR -CT chest 01/10- Left lower lobe lung consolidation with air bronchograms identified likely pneumonia or postobstructive atelectasis. ESRD - HD Admit wt 191# today 185.56# - DM II - BS 81-89 Await [facility] screen Labs pending For further plan of care, please refer to the orders. 01/12/18 wound - to OR today for debridement. continue IV antibiotics sepsis - pneumonia/probable infected pressure wound - Zosyn Vanco continue - fever improved. DM - BS 80-169 encephalopathy - improving slowly Pain control - will begin fentanyl 50mcg q4hr prn pain and continue lortab q8hr prn ESRD - dialysis continues wt. today 179.56 PICC ordered 01/11- nephrology concerned regarding length of need - ID contacted by staff - change order to central line - anesthesia contacted - will insert in surgery. For more details regarding further plans, please refer to the orders. Plan Plan For more details regarding further plans, please refer to the orders. Nutrition Consultation Dietary Evaluation: Recommendations by RD: Protein supplementation Comments: REC Glucerna TID Will add ADA diet restriction to current renal diet per pmhx Continue w/tiffani-kapil Expected Outcomes/Goals: PO intake to meet >75% est needs Malnutrition Findings: Food and Nutrition Intake (Mod: <75% est energy req 7days Weight Status: Overweight GAURAV DANG MD 01/12/18 1029: IM PROGRESS NOTES- Assessment Assessment The patient was seen and examined by me. Chart reviewed and plan of care formulated. Discussed with, reviewed and agree with [facility] DELEGATE's notes, plan of care and orders with modifications as necessary. For more details regarding further plans, please refer to the orders. RUT EDWARDS APRN Jan 12, 2018 08:28 GAURAV DANG MD Jan 12, 2018 10:29
[2018-01-12] MEDS: SERTRALINE 50 MG TABLET. PO SCH (08:45)
[2018-01-12] MEDS: fentaNYL PF VIAL 100 MCG/2 ML VIAL IV PRN ×4 (08:45→22:29)
[2018-01-12] MEDS: ISOSORBIDE MONONITRATE ER 30 MG TAB.ER.24H PO SCH (08:46)
[2018-01-12] MEDS: PANTOPRAZOLE 40 MG TABLET.DR. PO SCH (08:46)
[2018-01-12] MEDS: CARVEDILOL 12.5 MG TABLET. PO SCH ×2 (08:47→17:00)
[2018-01-12 08:48] LABS: BASO % 0 % (0-3); EOS % 0 % (0-3); HEMATOCRIT 21.9 % (36.0-47.0); HEMOGLOBIN 7.3 g/dL (12.0-15.5); LYMPH # 0.6 x10^3/uL (1.0-4.8); LYMPH % 2 % (24-48); MEAN CORPUSCULAR HEMOGLOBIN 29 pg (25-35); MEAN CORPUSCULAR HGB CONC 33 g/dL (31-37); MEAN CORPUSCULAR VOLUME 86 fL (79-100); MONO # 1.3 x10^3/uL (0.0-1.1); MONO % 5 % (0-9); NEUT # 25.9 x10^3uL (1.8-7.7); NEUT % 93 % (31-73); PLATELET COUNT 126 x10^3/uL (140-400); RED BLOOD COUNT 2.54 x10^6/uL (3.50-5.40); RED CELL DISTRIBUTION WIDTH 17.9 % (11.5-14.5); WHITE BLOOD COUNT 27.9 x10^3/uL (4.0-11.0)
[2018-01-12] MEDS: LOSARTAN POTASSIUM 50 MG TABLET. PO SCH (09:00)
[2018-01-12] MEDS: DICLOFENAC SODIUM 1% TOPICAL GEL 100GM TUBE. TP SCH ×3 (09:00→20:43)
[2018-01-12] MEDS: CHOLECALCIFEROL (VITAMIN D3) 1,000 UNIT TABLET PO SCH (09:00)
[2018-01-12] MEDS: POLYETHYLENE GLYCOL 3350 17 GM PACKET. PO SCH (09:00)
[2018-01-12] MEDS: LACTOBACILLUS RHAMNOSUS GG 1 CAPSULE. PO SCH ×2 (09:00→20:41)
[2018-01-12] MEDS: FOLIC/VIT B COMP W-C (RENAL) TABLET. PO SCH (09:00)
[2018-01-12] MEDS: MINOXIDIL 2.5 MG TABLET PO SCH ×2 (09:00→20:41)
[2018-01-12 09:11] LABS: ALBUMIN 2.3 g/dL (3.4-5.0); CALCIUM 9.3 mg/dL (8.5-10.1); CREATININE 3.4 mg/dL (0.6-1.0); PHOSPHORUS 1.4 mg/dL (2.6-4.7); POTASSIUM 3.8 mmol/L (3.5-5.1)
[2018-01-12] MEDS ORDERED: fentaNYL PF VIAL 100 MCG/2 ML VIAL IV PRN ×2 (09:15)
[2018-01-12] MEDS ORDERED: PROCHLORPERAZINE 10 MG/2 ML VIAL. IV PRN (09:15)
[2018-01-12] MEDS ORDERED: ONDANSETRON PF 4 MG/2 ML VIAL. IV PRN (09:15)
[2018-01-12] MEDS ORDERED: LIDOCAINE 1% PF 2 ML VIAL. ID PRN (09:15)
[2018-01-12] MEDS: VANCOMYCIN PER PHARMACY MC PRN (09:16)
[2018-01-12] MEDS: MICAFUNGIN 100 MG in IV DEXTROSE 5% 100ML 100 ML IV SCH (09:23)
--- NOTE | 2018-01-12 10:39 | PDOC ---
SUBJECTIVE ROS no new concerns OBJECTIVE Vital Signs Vital Signs Date Time Temp Pulse Resp B/P (MAP) Pulse Ox O2 Delivery O2 Flow Rate FiO2 01/12/18 08:47 68 119/52 01/12/18 08:45 18 Room Air 01/12/18 07:00 98.3 96 98.3 I & 0 Intake and Output 01/12/18 07:00 Intake Total 765 ml Balance 765 ml Intake Oral 565 ml IV Total 200 ml PHYSICAL EXAM Physical Exam GENERAL: NAD HEENT: OM moist NECK: No JVD LUNGS: Diminished aeration in the bases. Nonlabored. HEART: S1 and S2. ABDOMEN: Obese. Bowel sounds active. Soft, nontender. EXTREMITIES: 1-2+ edema in lower extremities bilaterally,L>R SKIN: No rash. wound, left ischial and large sacral wound LUE, AV fistula unremarkable. NEUROLOGIC: responds to questions minimally. DIAGNOSIS/ASSESSMENT Assessment & Plan ESRD/- On HD TTS Dialysis yesterday Currently No emergent indication for dialysis today Status post coronary artery bypass grafting in November 2017 at [facility] [place] Hypophosphatemia- Held Phos Lo , Monitor. Will restart if Phos above goal Anemia- Acute on chronic Post PRBC Diabetes mellitus, type 2. History of cerebrovascular accident with left-sided weakness and is chair bound Sacral Wounds- on ABX as per ID COMMENT/RELEVANT DATA Meds Current Medications Medications (Trade) Dose Ordered Sig/Srinath Start Time Stop Time Status Last Admin Dose Admin Acetaminophen (Tylenol) 325 mg PRN Q6HRS PRN 01/10/18 09:15 Acetaminophen/ Hydrocodone Bitart (Lortab 7.5/325) 1 tab PRN Q8HRS PRN 01/10/18 09:45 01/11/18 21:25 1 TAB Amylase/Lipase/ Protease (Zenpep 10,000) 2 cap TIDWMEALS 01/09/18 09:00 01/11/18 17:48 2 CAP Calcium Acetate (Phoslo) 1,334 mg TIDWMEALS 01/09/18 09:00 01/10/18 15:33 DC 01/10/18 12:24 1,334 MG Carvedilol (Coreg) 12.5 mg BIDWMEALS 01/09/18 09:00 01/12/18 08:47 12.5 MG Darbepoetin Ty (Aranesp) 60 mcg WEEKLYHS 01/09/18 21:00 01/09/18 21:29 60 MCG Diclofenac Sodium (Voltaren) 1 graciela TID 01/10/18 14:00 01/11/18 20:08 1 GRACIELA Diphenhydramine HCl (Benadryl) 25 mg 1X PRN PRN 01/10/18 14:30 01/11/18 14:29 DC Fentanyl Citrate (Fentanyl 2ml Vial) 50 mcg PRN Q5MIN PRN 01/12/18 09:15 01/13/18 09:14 Info (PHARMACY MONITORING -- do not chart) 1 each PRN DAILY PRN 01/11/18 08:15 01/11/18 08:15 DC Insulin Human Lispro (HumaLOG) 0-5 UNITS TIDAC 01/09/18 11:30 Iohexol (Omnipaque 300 Mg/ml) 75 ml 1X ONCE 01/08/18 18:15 01/08/18 18:16 DC 01/08/18 19:35 75 ML Isosorbide Mononitrate (Imdur) 120 mg DAILY 01/09/18 09:00 01/12/18 08:46 120 MG Lactobacillus Rhamnosus (Culturelle) 1 cap BID 01/10/18 21:00 01/11/18 20:05 1 CAP Lidocaine HCl (Xylocaine-Mpf 1% Vial) 2 ml PRN 1X PRN 01/12/18 09:15 01/13/18 09:14 Lorazepam (Ativan) 1 mg PRN Q4HRS PRN 01/08/18 18:00 01/10/18 09:24 DC 01/09/18 21:30 1 MG Losartan Potassium (Cozaar) 100 mg DAILY 01/09/18 09:00 Magnesium Sulfate 50 ml @ 25 mls/hr PRN DAILY PRN 01/09/18 10:15 Micafungin Sodium 100 mg/Dextrose 100 ml @ 100 mls/hr Q24H 01/12/18 09:00 01/12/18 09:23 100 MLS/HR Minoxidil (Loniten) 2.5 mg BID 01/09/18 09:00 01/11/18 20:06 2.5 MG Montelukast Sodium (Singulair) 10 mg QHS 01/09/18 21:00 01/11/18 20:05 10 MG Morphine Sulfate (Morphine Sulfate) 2 mg PRN Q2HR PRN 01/08/18 16:00 01/09/18 15:59 DC 01/08/18 17:06 2 MG Nitroglycerin (Nitrostat) 0.4 mg PRN Q5MIN PRN 01/09/18 08:45 Non-Formulary Medication (Insulin Aspart (Novolog Flexpen)) TIDAC 01/09/18 11:30 UNV Ondansetron HCl (Zofran) 4 mg PRN Q6HRS PRN 01/12/18 09:15 01/13/18 09:14 Pantoprazole Sodium (Protonix) 40 mg DAILYAC 01/09/18 09:00 01/12/18 08:46 40 MG Piperacillin Sod/ Tazobactam Sod (Zosyn Per Pharmacy) 1 each PRN DAILY PRN 01/09/18 11:15 Piperacillin Sod/ Tazobactam Sod 2.25 gm/Sodium Chloride 50 ml @ 100 mls/hr Q8HRS 01/09/18 12:00 01/12/18 05:04 100 MLS/HR Polyethylene Glycol (miraLAX PACKET) 17 gm DAILY 01/09/18 09:00 Prochlorperazine Edisylate (Compazine) 5 mg PACU PRN PRN 01/12/18 09:15 01/13/18 09:14 Sertraline HCl (Zoloft) 100 mg DAILY 01/09/18 09:00 01/12/18 08:45 100 MG Sodium Chloride 1,000 ml @ 0 mls/hr Q0M 01/12/18 14:15 Vancomycin HCl (Vanco Per Pharmacy) 1 each PRN DAILY PRN 01/08/18 15:30 01/12/18 09:16 1 EACH Vancomycin HCl (Vancomycin Random Level) 1 each 1X ONCE 01/10/18 05:00 01/10/18 05:01 DC 01/10/18 05:00 1 EACH Vancomycin HCl 1.75 gm/Sodium Chloride 500 ml @ 250 mls/hr 1X ONCE 01/08/18 15:30 01/08/18 17:29 DC 01/08/18 15:39 250 MLS/HR Vancomycin HCl 500 mg/Sodium Chloride 100 ml @ 100 mls/hr QTUTHSA 01/11/18 16:00 01/11/18 20:41 100 MLS/HR Vitamin B Complex/ Vitamin C (Anneliese-Donny) 1 tab DAILY 01/09/18 09:00 01/11/18 12:15 1 TAB Vitamin D (Vitamin D3) 1,000 unit DAILY 01/09/18 09:00 01/11/18 12:15 1,000 UNIT Lab Laboratory Tests Test 01/11/18 12:11 01/11/18 16:38 01/11/18 20:32 01/12/18 07:16 Glucose (Fingerstick) 80 mg/dL (70-99) 147 mg/dL (70-99) 169 mg/dL (70-99) 126 mg/dL (70-99) Test 01/12/18 08:25 White Blood Count 27.9 x10^3/uL (4.0-11.0) Red Blood Count 2.54 x10^6/uL (3.50-5.40) Hemoglobin 7.3 g/dL (12.0-15.5) Hematocrit 21.9 % (36.0-47.0) Mean Corpuscular Volume 86 fL (79-100) Mean Corpuscular Hemoglobin 29 pg (25-35) Mean Corpuscular Hemoglobin Concent 33 g/dL (31-37) Red Cell Distribution Width 17.9 % (11.5-14.5) Platelet Count 126 x10^3/uL (140-400) Neutrophils (%) (Auto) 93 % (31-73) Lymphocytes (%) (Auto) 2 % (24-48) Monocytes (%) (Auto) 5 % (0-9) Eosinophils (%) (Auto) 0 % (0-3) Basophils (%) (Auto) 0 % (0-3) Neutrophils # (Auto) 25.9 x10^3uL (1.8-7.7) Lymphocytes # (Auto) 0.6 x10^3/uL (1.0-4.8) Monocytes # (Auto) 1.3 x10^3/uL (0.0-1.1) Eosinophils # (Auto) 0.0 x10^3/uL (0.0-0.7) Basophils # (Auto) 0.0 x10^3/uL (0.0-0.2) Sodium Level 137 mmol/L (136-145) Potassium Level 3.8 mmol/L (3.5-5.1) Chloride Level 98 mmol/L (98-107) Carbon Dioxide Level 30 mmol/L (21-32) Anion Gap 9 (6-14) Blood Urea Nitrogen 19 mg/dL (7-20) Creatinine 3.4 mg/dL (0.6-1.0) Estimated GFR (Cockcroft-Gault) 17.0 Glucose Level 126 mg/dL (70-99) Calcium Level 9.3 mg/dL (8.5-10.1) Phosphorus Level 1.4 mg/dL (2.6-4.7) Magnesium Level 2.0 mg/dL (1.8-2.4) Albumin 2.3 g/dL (3.4-5.0) Results All relevant outside records, renal labs, imaging studies, telemetry/EKG's were reviewed. RY ESCOBAR MD Jan 12, 2018 10:39
[2018-01-12 11:00] VITALS: BP 104/49
--- NOTE | 2018-01-12 11:02 | PDOC ---
PULMONARY PROGRESS NOTES Subjective no soa Vitals Vital Signs Date Time Temp Pulse Resp B/P (MAP) Pulse Ox O2 Delivery O2 Flow Rate FiO2 01/12/18 08:47 68 119/52 01/12/18 08:45 18 Room Air 01/12/18 07:00 98.3 96 98.3 General: Alert, No acute distress HEENT: Other Lungs: Other (decreased breath sounds bases) Cardiovascular: S1, S2 Abdomen: Soft, Non-tender Neuro Exam: Alert Extremities: No Edema Skin: Warm Labs Laboratory Tests Test 01/10/18 12:02 01/10/18 20:09 01/11/18 07:11 01/11/18 08:00 Glucose (Fingerstick) 99 mg/dL (70-99) 89 mg/dL (70-99) 81 mg/dL (70-99) Sodium Level 137 mmol/L (136-145) Potassium Level 4.0 mmol/L (3.5-5.1) Chloride Level 99 mmol/L (98-107) Carbon Dioxide Level 27 mmol/L (21-32) Anion Gap 11 (6-14) Blood Urea Nitrogen 23 mg/dL (7-20) Creatinine 4.3 mg/dL (0.6-1.0) Estimated GFR (Cockcroft-Gault) 12.9 Glucose Level 76 mg/dL (70-99) Calcium Level 9.5 mg/dL (8.5-10.1) Phosphorus Level 1.9 mg/dL (2.6-4.7) Magnesium Level 2.2 mg/dL (1.8-2.4) Albumin 2.4 g/dL (3.4-5.0) Test 01/11/18 09:17 01/11/18 12:11 01/11/18 16:38 01/11/18 20:32 White Blood Count 24.7 x10^3/uL (4.0-11.0) Red Blood Count 2.51 x10^6/uL (3.50-5.40) Hemoglobin 7.3 g/dL (12.0-15.5) Hematocrit 21.7 % (36.0-47.0) Mean Corpuscular Volume 87 fL (79-100) Mean Corpuscular Hemoglobin 29 pg (25-35) Mean Corpuscular Hemoglobin Concent 33 g/dL (31-37) Red Cell Distribution Width 18.6 % (11.5-14.5) Platelet Count 129 x10^3/uL (140-400) Neutrophils (%) (Auto) 92 % (31-73) Lymphocytes (%) (Auto) 4 % (24-48) Monocytes (%) (Auto) 5 % (0-9) Eosinophils (%) (Auto) 0 % (0-3) Basophils (%) (Auto) 0 % (0-3) Neutrophils # (Auto) 22.6 x10^3uL (1.8-7.7) Lymphocytes # (Auto) 0.9 x10^3/uL (1.0-4.8) Monocytes # (Auto) 1.1 x10^3/uL (0.0-1.1) Eosinophils # (Auto) 0.0 x10^3/uL (0.0-0.7) Basophils # (Auto) 0.0 x10^3/uL (0.0-0.2) Glucose (Fingerstick) 80 mg/dL (70-99) 147 mg/dL (70-99) 169 mg/dL (70-99) Test 01/12/18 07:16 01/12/18 08:25 Glucose (Fingerstick) 126 mg/dL (70-99) White Blood Count 27.9 x10^3/uL (4.0-11.0) Red Blood Count 2.54 x10^6/uL (3.50-5.40) Hemoglobin 7.3 g/dL (12.0-15.5) Hematocrit 21.9 % (36.0-47.0) Mean Corpuscular Volume 86 fL (79-100) Mean Corpuscular Hemoglobin 29 pg (25-35) Mean Corpuscular Hemoglobin Concent 33 g/dL (31-37) Red Cell Distribution Width 17.9 % (11.5-14.5) Platelet Count 126 x10^3/uL (140-400) Neutrophils (%) (Auto) 93 % (31-73) Lymphocytes (%) (Auto) 2 % (24-48) Monocytes (%) (Auto) 5 % (0-9) Eosinophils (%) (Auto) 0 % (0-3) Basophils (%) (Auto) 0 % (0-3) Neutrophils # (Auto) 25.9 x10^3uL (1.8-7.7) Lymphocytes # (Auto) 0.6 x10^3/uL (1.0-4.8) Monocytes # (Auto) 1.3 x10^3/uL (0.0-1.1) Eosinophils # (Auto) 0.0 x10^3/uL (0.0-0.7) Basophils # (Auto) 0.0 x10^3/uL (0.0-0.2) Sodium Level 137 mmol/L (136-145) Potassium Level 3.8 mmol/L (3.5-5.1) Chloride Level 98 mmol/L (98-107) Carbon Dioxide Level 30 mmol/L (21-32) Anion Gap 9 (6-14) Blood Urea Nitrogen 19 mg/dL (7-20) Creatinine 3.4 mg/dL (0.6-1.0) Estimated GFR (Cockcroft-Gault) 17.0 Glucose Level 126 mg/dL (70-99) Calcium Level 9.3 mg/dL (8.5-10.1) Phosphorus Level 1.4 mg/dL (2.6-4.7) Magnesium Level 2.0 mg/dL (1.8-2.4) Albumin 2.3 g/dL (3.4-5.0) Laboratory Tests Test 01/11/18 12:11 01/11/18 16:38 01/11/18 20:32 01/12/18 07:16 Glucose (Fingerstick) 80 mg/dL (70-99) 147 mg/dL (70-99) 169 mg/dL (70-99) 126 mg/dL (70-99) Test 01/12/18 08:25 White Blood Count 27.9 x10^3/uL (4.0-11.0) Red Blood Count 2.54 x10^6/uL (3.50-5.40) Hemoglobin 7.3 g/dL (12.0-15.5) Hematocrit 21.9 % (36.0-47.0) Mean Corpuscular Volume 86 fL (79-100) Mean Corpuscular Hemoglobin 29 pg (25-35) Mean Corpuscular Hemoglobin Concent 33 g/dL (31-37) Red Cell Distribution Width 17.9 % (11.5-14.5) Platelet Count 126 x10^3/uL (140-400) Neutrophils (%) (Auto) 93 % (31-73) Lymphocytes (%) (Auto) 2 % (24-48) Monocytes (%) (Auto) 5 % (0-9) Eosinophils (%) (Auto) 0 % (0-3) Basophils (%) (Auto) 0 % (0-3) Neutrophils # (Auto) 25.9 x10^3uL (1.8-7.7) Lymphocytes # (Auto) 0.6 x10^3/uL (1.0-4.8) Monocytes # (Auto) 1.3 x10^3/uL (0.0-1.1) Eosinophils # (Auto) 0.0 x10^3/uL (0.0-0.7) Basophils # (Auto) 0.0 x10^3/uL (0.0-0.2) Sodium Level 137 mmol/L (136-145) Potassium Level 3.8 mmol/L (3.5-5.1) Chloride Level 98 mmol/L (98-107) Carbon Dioxide Level 30 mmol/L (21-32) Anion Gap 9 (6-14) Blood Urea Nitrogen 19 mg/dL (7-20) Creatinine 3.4 mg/dL (0.6-1.0) Estimated GFR (Cockcroft-Gault) 17.0 Glucose Level 126 mg/dL (70-99) Calcium Level 9.3 mg/dL (8.5-10.1) Phosphorus Level 1.4 mg/dL (2.6-4.7) Magnesium Level 2.0 mg/dL (1.8-2.4) Albumin 2.3 g/dL (3.4-5.0) Medications Active Scripts Medications Dose Route/Sig Max Daily Dose Days Date Category Dose Instructions Vitamin D3 (Cholecalciferol (Vitamin D3)) 1,000 Unit Tablet 1 Tab PO DAILY 12/28/17 Rx [Calcium Acetate] 667 MG Capsule 1,334 Mg PO TIDWMEALS 12/28/17 Rx Mapap (Acetaminophen) 500 Mg Tablet 1,000 Mg PO TID 12/28/17 Rx Carvedilol 12.5 Mg Tablet 12.5 Mg PO BIDWMEALS 12/28/17 Rx Minoxidil 2.5 Mg Tablet 2.5 Mg PO BID 07/19/17 Rx Isosorbide Mononitrate Er (Isosorbide Mononitrate) 30 Mg Tab.er.24h 120 Mg PO DAILY 07/19/17 Rx Montelukast Sodium Tablet (Montelukast Sodium) 10 Mg Tablet 10 Mg PO QHS 05/07/17 Rx Polyethylene Glycol 3350 2,500 Gm Powder 17 Gm PO DAILY 04/09/17 Rx Nitrostat (Nitroglycerin) 0.4 Mg Tab.subl 0.4 Mg SL PRN Q5MIN PRN 12/30/16 Reported Plavix (Clopidogrel Bisulfate) 75 Mg Tablet 1 Tab PO DAILY 12/30/16 Reported Novolog Flexpen (Insulin Aspart) 100 Unit/1 Ml Insuln.pen 0 Units SQ TIDAC 11/26/16 Rx Take sub q tid ac: BS 151-200=2 unit, 201-250=3 unit, [id number], BS 301-350=6 unit, BS 351-400 =8 unit. BS>401 call MD Renetta Busch 10,000 Units Capsule (Lipase/Protease/Amylase) 1 Each Capsule. 2 Cap PO TIDWMEALS 11/26/16 Rx TAke 2 cap tid with meals Nephro-Donny Tablet (Folic Acid/Vitamin B Comp W-C) 0.8 Mg Tablet 1 Tab PO DAILY 07/07/16 Rx Benadryl (Diphenhydramine Hcl) 25 Mg Capsule 25 Mg PO PRN Q6HRS PRN 07/07/16 Rx Zoloft (Sertraline Hcl) 100 Mg Tablet 1 Tab PO DAILY 07/01/16 Reported Pantoprazole Sodium 40 Mg Tablet. 1 Tab PO DAILY 07/01/16 Reported Losartan Potassium 100 Mg Tablet 100 Mg PO DAILY 01/14/16 Reported Aspir 81 (Aspirin) 81 Mg Tablet. 81 Mg PO DAILY 01/14/16 Reported Impression . 1. Abnormal chest x-ray revealed chronic left effusion. The patient is asymptomatic. repeat ct chest 01/10 reviewed/ Improved left effusion/atelectasis. clinically less likely pneumonia 2. End-stage renal disease, on hemodialysis. 3. Secondary pulmonary hypertension. 4. Gastroesophageal reflux, status post release of celiac artery and aorto-celiac bypass with graft. 5. Hepatitis C. 6. Type 2 diabetes. 7. Chronic heart failure. 8. Ascites. 9. Fever improved Plan . 1. During the patient's last admission, she underwent thoracentesis. The pleural fluid was compatible with a transudative effusion. The patient is currently not symptomatic. effusion 8/6 is smaller then before. Will not need thoracentesis unless fever re-occurs. 2. Continue other meds per PCP. 3. Abx per RODRIGO GUEVARA MD Jan 12, 2018 11:02
[2018-01-12] MEDS: ACETAMINOPHEN 500 MG TABLET PO SCH ×3 (14:00→20:42)
[2018-01-12] MEDS ORDERED: IV NORMAL SALINE 1000ML BAG 1,000 ML IV SCH (14:15)
[2018-01-12] MEDS ORDERED: PROCHLORPERAZINE 10 MG/2 ML VIAL. ONE (14:40)
[2018-01-12] MEDS ORDERED: fentaNYL PF VIAL 100 MCG/2 ML VIAL ONE ×2 (15:17→15:18)
[2018-01-12] MEDS ORDERED: SUCCINYLCHOLINE 200 MG/10 ML VIAL. ONE (15:19)
[2018-01-12] MEDS ORDERED: BUPIVACAINE-EPI 0.25%-1:200000 50 ML VIAL. ONE (15:19)
[2018-01-12] MEDS ORDERED: PHENYLEPHRINE in 0.9% NACL PF 1 MG/10 ML SYRINGE. IV ONE (15:44)
[2018-01-12] MEDS ORDERED: DEXAMETHASONE SOD PHOS 20 MG/5 ML VIAL. ONE (15:54)
--- NOTE | 2018-01-12 16:40 | PDOC ---
Date and Time Asked to place central line while in OR for poor venous access. Unable to have PIC line per nephrology. Chlorasept prep. Cap,Gown,Mask,gloves and large drape used. Strict sterile technique. R IJ id with sono. Wire and 3 lumen cath placed with ease. Sutured in at 16cm. Biopatch and sterile dressing. All ports with free blood return. Capped and flushed. CXR re position pending. Current Medications Current Medications Morphine Sulfate (Morphine Sulfate) 6 mg 1X ONCE IV Last administered on at 13:35; Start 01/08/18 at 13:00; Stop 01/08/18 at 13:01; Status DC Vancomycin HCl (Vanco Per Pharmacy) 1 each PRN DAILY PRN MC SEE COMMENTS Last administered on 01/12/18 09:16; Start 01/08/18 at 15:30 Vancomycin HCl 1.75 gm/Sodium Chloride 500 ml @ 250 mls/hr 1X ONCE IV Last administered on 01/08/18at 15:39; Start 01/08/18 at 15:30; Stop 01/08/18 at 17:29; Status DC Ondansetron HCl (Zofran) 4 mg PRN Q8HRS PRN IV NAUSEA/VOMITING Last administered on 01/08/18 21:44; Start 01/08/18 at 16:00; Stop 01/09/18 at 08:45; Status DC Morphine Sulfate (Morphine Sulfate) 2 mg PRN Q2HR PRN IV PAIN Last administered on 01/08/18 17:06; Start 01/08/18 at 16:00; Stop 01/09/18 at 15:59; Status DC Vancomycin HCl (Vancomycin Random Level) 1 each 1X ONCE MC Last administered on 01/10/18at 05:00; Start 01/10/18 at 05:00; Stop 01/10/18 at 05:01; Status DC Lorazepam (Ativan) 1 mg PRN Q4HRS PRN IV ANXIETY / AGITATION Last administered on 01/09/18at 21:30; Start 01/08/18 at 18:00; Stop 01/10/18 at 09:24; Status DC Acetaminophen (Tylenol) 650 mg PRN Q6HRS PRN PO FEVER; Start 01/08/18 at 18:00; Stop 01/10/18 at 09:24; Status DC Iohexol (Omnipaque 300 Mg/ml) 75 ml 1X ONCE IV Last administered on 01/08/18 19:35; Start 01/08/18 at 18:15; Stop 01/08/18 at 18:16; Status DC Ondansetron HCl (Zofran) 4 mg PRN Q6HRS PRN IV NAUSEA/VOMITING Last administered on 01/12/18 07:53; Start 01/09/18 at 08:45 Sodium Chloride 1,000 ml @ 100 mls/hr Q10H IV ; Start 01/09/18 at 09:00; Stop at 11:32; Status DC Acetaminophen (Tylenol) 1,000 mg TID PO Last administered on 01/11/18 20:06; Start 01/09/18 at 09:00 Carvedilol (Coreg) 12.5 mg BIDWMEALS PO Last administered on 01/12/18 08:47; Start 01/09/18 at 09:00 Vitamin D (Vitamin D3) 1,000 unit DAILY PO Last administered on 01/11/18 12:15 ; Start 01/09/18 at 09:00 Diphenhydramine HCl (Benadryl) 25 mg PRN Q6HRS PRN PO ITCHING; Start 01/09/18 at 08:45 Vitamin B Complex/ Vitamin C (Anneliese-Donny) 1 tab DAILY PO Last administered on 12:15; Start 01/09/18 at 09:00 Isosorbide Mononitrate (Imdur) 120 mg DAILY PO Last administered on 01/12/18 08 :46; Start 01/09/18 at 09:00 Amylase/Lipase/ Protease (Zenpep 10,000) 2 cap TIDWMEALS PO Last administered on 01/11/18 17:48; Start 01/09/18 at 09:00 Nitroglycerin (Nitrostat) 0.4 mg PRN Q5MIN PRN SL CHEST PAIN; Start 01/09/18 at 08:45 Pantoprazole Sodium (Protonix) 40 mg DAILYAC PO Last administered on 01/12/18 08:46; Start 01/09/18 at 09:00 Non-Formulary Medication (Insulin Aspart (Novolog Flexpen)) TIDAC SQ ; Start at 11:30; Status UNV Losartan Potassium (Cozaar) 100 mg DAILY PO ; Start 01/09/18 at 09:00 Minoxidil (Loniten) 2.5 mg BID PO Last administered on 01/11/18at 20:06; Start at 09:00 Montelukast Sodium (Singulair) 10 mg QHS PO Last administered on 01/11/18at 20:05 ; Start 01/09/18 at 21:00 Polyethylene Glycol (miraLAX PACKET) 17 gm DAILY PO ; Start 01/09/18 at 09:00 Sertraline HCl (Zoloft) 100 mg DAILY PO Last administered on 01/12/18at 08:45; Start 01/09/18 at 09:00 Calcium Acetate (Phoslo) 1,334 mg TIDWMEALS PO Last administered on 01/10/18at 12 :24; Start 01/09/18 at 09:00; Stop 01/10/18 at 15:33; Status DC Insulin Human Lispro (HumaLOG) 0-5 UNITS TIDAC SQ ; Start 01/09/18 at 11:30 Magnesium Sulfate 50 ml @ 25 mls/hr PRN DAILY PRN IV for Mag < 1.7 on am labs; Start 01/09/18 at 10:15 Darbepoetin Ty (Aranesp) 60 mcg WEEKLYHS SQ Last administered on 01/09/18at 21: 29; Start 01/09/18 at 21:00 Piperacillin Sod/ Tazobactam Sod (Zosyn Per Pharmacy) 1 each PRN DAILY PRN MC SEE COMMENTS; Start 01/09/18 at 11:15 Piperacillin Sod/ Tazobactam Sod 2.25 gm/Sodium Chloride 50 ml @ 100 mls/hr Q8HRS IV Last administered on 01/12/18at 05:04; Start 01/09/18 at 12:00 Acetaminophen (Tylenol) 325 mg PRN Q6HRS PRN PO FEVER; Start 01/10/18 at 09:15 Lactobacillus Rhamnosus (Culturelle) 1 cap BID PO Last administered on at 20:05; Start 01/10/18 at 21:00 Acetaminophen/ Hydrocodone Bitart (Lortab 7.5/325) 1 tab PRN Q8HRS PRN PO PAIN MODERATE Last administered on 01/11/18at 21:25; Start 01/10/18 at 09:45 Diclofenac Sodium (Voltaren) 1 graciela TID TP Last administered on 01/11/18at 20:08; Start 01/10/18 at 14:00 Vancomycin HCl 500 mg/Sodium Chloride 100 ml @ 100 mls/hr ONCE ONCE IV Last administered on 01/10/18at 18:13; Start 01/10/18 at 16:00; Stop 01/10/18 at 16:59; Status DC Sodium Chloride 1,000 ml @ 1,000 mls/hr Q1H PRN IV hypotension; Start 01/10/18 at 14:25; Stop 01/10/18 at 20:24; Status DC Diphenhydramine HCl (Benadryl) 25 mg 1X PRN PRN IV ITCHING; Start 01/10/18 at 14 :30; Stop 01/11/18 at 14:29; Status DC Diphenhydramine HCl (Benadryl) 25 mg 1X PRN PRN IV ITCHING; Start 01/10/18 at 14 :30; Stop 01/11/18 at 14:29; Status DC Sodium Chloride 1,000 ml @ 400 mls/hr Q2H30M PRN IV PATENCY; Start 01/10/18 at 14:25; Stop 01/11/18 at 02:24; Status DC Info (PHARMACY MONITORING -- do not chart) 1 each PRN DAILY PRN MC SEE COMMENTS ; Start 01/10/18 at 14:30 Sodium Chloride 1,000 ml @ 1,000 mls/hr Q1H PRN IV hypotension; Start 01/11/18 at 08:06; Stop 01/11/18 at 14:05; Status DC Info (PHARMACY MONITORING -- do not chart) 1 each PRN DAILY PRN MC SEE COMMENTS ; Start 01/11/18 at 08:15; Stop 01/11/18 at 08:15; Status DC Info (PHARMACY MONITORING -- do not chart) 1 each PRN DAILY PRN MC SEE COMMENTS ; Start 01/11/18 at 08:15; Stop 01/11/18 at 08:15; Status DC Vancomycin HCl 500 mg/Sodium Chloride 100 ml @ 100 mls/hr QTUTHSA IV Last administered on 01/11/18at 20:41; Start 01/11/18 at 16:00 Fentanyl Citrate (Fentanyl 2ml Vial) 50 mcg PRN Q4HRS PRN IV PAIN Last administered on 01/12/18at 11:20; Start 01/12/18 at 08:15 Micafungin Sodium 100 mg/Dextrose 100 ml @ 100 mls/hr Q24H IV Last administered on 01/12/18at 09:23; Start 01/12/18 at 09:00 Ondansetron HCl (Zofran) 4 mg PRN Q6HRS PRN IV NAUSEA/VOMITING; Start 01/12/18 at 09:15; Stop 01/13/18 at 09:14 Fentanyl Citrate (Fentanyl 2ml Vial) 25 mcg PRN Q5MIN PRN IV MILD PAIN; Start 01/12/18 at 09:15; Stop 01/13/18 at 09:14 Fentanyl Citrate (Fentanyl 2ml Vial) 50 mcg PRN Q5MIN PRN IV MODERATE TO SEVERE PAIN; Start 01/12/18 at 09:15; Stop 01/13/18 at 09:14 Lidocaine HCl (Xylocaine-Mpf 1% Vial) 2 ml PRN 1X PRN ID PRIOR TO IV START; Start 01/12/18 at 09:15; Stop 01/13/18 at 09:14 Prochlorperazine Edisylate (Compazine) 5 mg PACU PRN PRN IV NAUSEA, MRX1 Last administered on 01/12/18at 14:43; Start 01/12/18 at 09:15; Stop 01/13/18 at 09:14 Sodium Chloride 1,000 ml @ 0 mls/hr Q0M IV Last administered on 01/12/18at 14:27 ; Start 01/12/18 at 14:15 Prochlorperazine Edisylate (Compazine) 10 mg STK-MED ONCE .ROUTE ; Start at 14:40; Stop 01/12/18 at 14:41; Status DC Fentanyl Citrate (Fentanyl 2ml Vial) 100 mcg STK-MED ONCE .ROUTE ; Start at 15:17; Stop 01/12/18 at 15:18; Status DC Fentanyl Citrate (Fentanyl 2ml Vial) 100 mcg STK-MED ONCE .ROUTE ; Start at 15:18; Stop 01/12/18 at 15:20; Status DC Succinylcholine Chloride (Anectine) 200 mg STK-MED ONCE .ROUTE ; Start 01/12/18 at 15:19; Stop 01/12/18 at 15:20; Status DC Phenylephrine HCl (PHENYLEPHRINE in 0.9% NACL PF) 1 mg STK-MED ONCE IV ; Start 01/12/18 at 15:44; Stop 01/12/18 at 15:46; Status DC Ephedrine Sulfate (Akovaz) 50 mg STK-MED ONCE .ROUTE ; Start 01/12/18 at 15:49; Stop 01/12/18 at 15:50; Status DC Dexamethasone Sodium Phosphate (Decadron) 20 mg STK-MED ONCE .ROUTE ; Start 01/12 at 15:54; Stop 01/12/18 at 15:55; Status DC Bupivacaine HCl/ Epinephrine Bitart (Marcaine-Epi 0.25%-1:416177) 50 ml STK-MED ONCE .ROUTE ; Start 01/12/18 at 15:19; Stop 01/12/18 at 16:20; Status DC Active Scripts Active Vitamin D3 (Cholecalciferol (Vitamin D3)) 1,000 Unit Tablet 1 Tab PO DAILY [Calcium Acetate] 667 MG Capsule 1,334 Mg PO TIDWMEALS Mapap (Acetaminophen) 500 Mg Tablet 1,000 Mg PO TID Carvedilol 12.5 Mg Tablet 12.5 Mg PO BIDWMEALS Minoxidil 2.5 Mg Tablet 2.5 Mg PO BID Isosorbide Mononitrate Er (Isosorbide Mononitrate) 30 Mg Tab.er.24h 120 Mg PO DAILY Montelukast Sodium Tablet (Montelukast Sodium) 10 Mg Tablet 10 Mg PO QHS Polyethylene Glycol 3350 2,500 Gm Powder 17 Gm PO DAILY Novolog Flexpen (Insulin Aspart) 100 Unit/1 Ml Insuln.pen 0 Units SQ TIDAC Take sub q tid ac: BS 151-200=2 unit, 201-250=3 unit, TC010-942, BS 301-350=6 unit, BS 351-400 =8 unit. BS>401 call MD Renetta Busch 10,000 Units Capsule (Lipase/Protease/Amylase) 1 Each Capsule. 2 Cap PO TIDWMEALS TAke 2 cap tid with meals Nephro-Donny Tablet (Folic Acid/Vitamin B Comp W-C) 0.8 Mg Tablet 1 Tab PO DAILY Benadryl (Diphenhydramine Hcl) 25 Mg Capsule 25 Mg PO PRN Q6HRS PRN Reported Nitrostat (Nitroglycerin) 0.4 Mg Tab.subl 0.4 Mg SL PRN Q5MIN PRN Plavix (Clopidogrel Bisulfate) 75 Mg Tablet 1 Tab PO DAILY Zoloft (Sertraline Hcl) 100 Mg Tablet 1 Tab PO DAILY Pantoprazole Sodium 40 Mg Tablet.dr 1 Tab PO DAILY Losartan Potassium 100 Mg Tablet 100 Mg PO DAILY Aspir 81 (Aspirin) 81 Mg Tablet.dr 81 Mg PO DAILY Pertinent Labs/Test Laboratory Tests Test 01/10/18 20:09 01/11/18 07:11 01/11/18 08:00 01/11/18 09:17 Glucose (Fingerstick) 89 mg/dL (70-99) 81 mg/dL (70-99) Sodium Level 137 mmol/L (136-145) Potassium Level 4.0 mmol/L (3.5-5.1) Chloride Level 99 mmol/L (98-107) Carbon Dioxide Level 27 mmol/L (21-32) Anion Gap 11 (6-14) Blood Urea Nitrogen 23 mg/dL (7-20) Creatinine 4.3 mg/dL (0.6-1.0) Estimated GFR (Cockcroft-Gault) 12.9 Glucose Level 76 mg/dL (70-99) Calcium Level 9.5 mg/dL (8.5-10.1) Phosphorus Level 1.9 mg/dL (2.6-4.7) Magnesium Level 2.2 mg/dL (1.8-2.4) Albumin 2.4 g/dL (3.4-5.0) White Blood Count 24.7 x10^3/uL (4.0-11.0) Red Blood Count 2.51 x10^6/uL (3.50-5.40) Hemoglobin 7.3 g/dL (12.0-15.5) Hematocrit 21.7 % (36.0-47.0) Mean Corpuscular Volume 87 fL (79-100) Mean Corpuscular Hemoglobin 29 pg (25-35) Mean Corpuscular Hemoglobin Concent 33 g/dL (31-37) Red Cell Distribution Width 18.6 % (11.5-14.5) Platelet Count 129 x10^3/uL (140-400) Neutrophils (%) (Auto) 92 % (31-73) Lymphocytes (%) (Auto) 4 % (24-48) Monocytes (%) (Auto) 5 % (0-9) Eosinophils (%) (Auto) 0 % (0-3) Basophils (%) (Auto) 0 % (0-3) Neutrophils # (Auto) 22.6 x10^3uL (1.8-7.7) Lymphocytes # (Auto) 0.9 x10^3/uL (1.0-4.8) Monocytes # (Auto) 1.1 x10^3/uL (0.0-1.1) Eosinophils # (Auto) 0.0 x10^3/uL (0.0-0.7) Basophils # (Auto) 0.0 x10^3/uL (0.0-0.2) Test 01/11/18 12:11 01/11/18 16:38 01/11/18 20:32 01/12/18 07:16 Glucose (Fingerstick) 80 mg/dL (70-99) 147 mg/dL (70-99) 169 mg/dL (70-99) 126 mg/dL (70-99) Test 01/12/18 08:25 01/12/18 11:24 White Blood Count 27.9 x10^3/uL (4.0-11.0) Red Blood Count 2.54 x10^6/uL (3.50-5.40) Hemoglobin 7.3 g/dL (12.0-15.5) Hematocrit 21.9 % (36.0-47.0) Mean Corpuscular Volume 86 fL (79-100) Mean Corpuscular Hemoglobin 29 pg (25-35) Mean Corpuscular Hemoglobin Concent 33 g/dL (31-37) Red Cell Distribution Width 17.9 % (11.5-14.5) Platelet Count 126 x10^3/uL (140-400) Neutrophils (%) (Auto) 93 % (31-73) Lymphocytes (%) (Auto) 2 % (24-48) Monocytes (%) (Auto) 5 % (0-9) Eosinophils (%) (Auto) 0 % (0-3) Basophils (%) (Auto) 0 % (0-3) Neutrophils # (Auto) 25.9 x10^3uL (1.8-7.7) Lymphocytes # (Auto) 0.6 x10^3/uL (1.0-4.8) Monocytes # (Auto) 1.3 x10^3/uL (0.0-1.1) Eosinophils # (Auto) 0.0 x10^3/uL (0.0-0.7) Basophils # (Auto) 0.0 x10^3/uL (0.0-0.2) Sodium Level 137 mmol/L (136-145) Potassium Level 3.8 mmol/L (3.5-5.1) Chloride Level 98 mmol/L (98-107) Carbon Dioxide Level 30 mmol/L (21-32) Anion Gap 9 (6-14) Blood Urea Nitrogen 19 mg/dL (7-20) Creatinine 3.4 mg/dL (0.6-1.0) Estimated GFR (Cockcroft-Gault) 17.0 Glucose Level 126 mg/dL (70-99) Calcium Level 9.3 mg/dL (8.5-10.1) Phosphorus Level 1.4 mg/dL (2.6-4.7) Magnesium Level 2.0 mg/dL (1.8-2.4) Albumin 2.3 g/dL (3.4-5.0) Glucose (Fingerstick) 129 mg/dL (70-99) Laboratory Tests Test 01/11/18 16:38 01/11/18 20:32 01/12/18 07:16 01/12/18 08:25 Glucose (Fingerstick) 147 mg/dL (70-99) 169 mg/dL (70-99) 126 mg/dL (70-99) White Blood Count 27.9 x10^3/uL (4.0-11.0) Red Blood Count 2.54 x10^6/uL (3.50-5.40) Hemoglobin 7.3 g/dL (12.0-15.5) Hematocrit 21.9 % (36.0-47.0) Mean Corpuscular Volume 86 fL (79-100) Mean Corpuscular Hemoglobin 29 pg (25-35) Mean Corpuscular Hemoglobin Concent 33 g/dL (31-37) Red Cell Distribution Width 17.9 % (11.5-14.5) Platelet Count 126 x10^3/uL (140-400) Neutrophils (%) (Auto) 93 % (31-73) Lymphocytes (%) (Auto) 2 % (24-48) Monocytes (%) (Auto) 5 % (0-9) Eosinophils (%) (Auto) 0 % (0-3) Basophils (%) (Auto) 0 % (0-3) Neutrophils # (Auto) 25.9 x10^3uL (1.8-7.7) Lymphocytes # (Auto) 0.6 x10^3/uL (1.0-4.8) Monocytes # (Auto) 1.3 x10^3/uL (0.0-1.1) Eosinophils # (Auto) 0.0 x10^3/uL (0.0-0.7) Basophils # (Auto) 0.0 x10^3/uL (0.0-0.2) Sodium Level 137 mmol/L (136-145) Potassium Level 3.8 mmol/L (3.5-5.1) Chloride Level 98 mmol/L (98-107) Carbon Dioxide Level 30 mmol/L (21-32) Anion Gap 9 (6-14) Blood Urea Nitrogen 19 mg/dL (7-20) Creatinine 3.4 mg/dL (0.6-1.0) Estimated GFR (Cockcroft-Gault) 17.0 Glucose Level 126 mg/dL (70-99) Calcium Level 9.3 mg/dL (8.5-10.1) Phosphorus Level 1.4 mg/dL (2.6-4.7) Magnesium Level 2.0 mg/dL (1.8-2.4) Albumin 2.3 g/dL (3.4-5.0) Test 01/12/18 11:24 Glucose (Fingerstick) 129 mg/dL (70-99) LAST VITALS Vital Signs Date Time Temp Pulse Resp B/P (MAP) Pulse Ox O2 Delivery O2 Flow Rate FiO2 01/12/18 14:25 98.6 66 15 119/59 97 Room Air 98.6 ROXIE PAIGE MD Jan 12, 2018 16:40
[2018-01-12] MEDS ORDERED: 0.9 % SODIUM CHLORIDE 10 ML DISP.SYRIN. IV PRN (16:45)
--- NOTE | 2018-01-12 16:49 | PDOC4 ---
OPERATIVE NOTE Date: Date: Jan 12, 2018 Pre-Op Diagnosis: Sacral decub ulcer Post-Op Diagnosis: same Procedure Performed: Excisional debridement of skin, subcutaneous tissue, muscle Surgeon: Tanvir Chaney Anesthesia Type: GETA plus local Blood Loss: minimal Specimans Obtained: Sacral ulcer debridement Findings: 5 cm sacral ulcer with necrotic tissue extending down through skin, subcutaneous tissue to muscle, no bony involvement Complications: none Operative Note: Patient was taken to OR, induced under GETA and prepped in the usual fashion with the patient in left side down decubitus and over the sacral ulcer. Cautery was used to excise the necrotic ulcer down through skin and subcutaneous tissue outside the ulcer margin. Specimen sent to pathology. Hemostasis obtained with cautery. Wound packed with iodoform gauze. Sterile dressing placed over this. Patient tolerated procedure well and sent to PACU in stable condition. All counts correct. No immediate complications. BRIT CHANEY MD Jan 12, 2018 16:49
--- NOTE | 2018-01-12 17:01 | RAD ---
Portable chest, 01/12/2018: HISTORY: Check central line placement Comparison is made to a study from 01/08/2018. A right jugular central venous catheter has been inserted extending to the level of the atriocaval junction. The heart is moderately enlarged. The pulmonary vascularity as visualized on the right is normal. There are worsening left chest opacities compatible with a combination of infiltrate and pleural fluid. Pleural fluid extends superolaterally on the left. The right lung is clear. No right-sided pleural fluid or pneumothorax is seen. IMPRESSION: 1. The right jugular central venous catheter extends to the level of the atriocaval junction. 2. Unchanged cardiomegaly. 3. Worsening left lung infiltrate and pleural fluid. Pneumonia is suspected. Electronically signed by: Alexy Petersen MD (01/12/2018 4:58 PM) [facility]
[2018-01-12 19:14] VITALS: BP 148/64
[2018-01-12] MEDS: HYDROcodone/APAP 7.5/325MG 1 TAB TABLET PO PRN (20:42)
[2018-01-12] MEDS: MONTELUKAST SODIUM 10 MG TABLET. PO SCH (20:42)
[2018-01-12 23:48] VITALS: BP 96/51
[2018-01-13 03:30] VITALS: BP 129/44
[2018-01-13] MEDS: PIPERACILLIN/TAZOBACTAM 2.25 GM in IV NORMAL SALINE 50ML 50 ML IV SCH (05:07)
[2018-01-13 06:18] LABS: BASO % 0 % (0-3); EOS % 0 % (0-3); HEMATOCRIT 22.3 % (36.0-47.0); HEMOGLOBIN 7.3 g/dL (12.0-15.5); LYMPH # 1.1 x10^3/uL (1.0-4.8); LYMPH % 4 % (24-48); MEAN CORPUSCULAR HEMOGLOBIN 29 pg (25-35); MEAN CORPUSCULAR HGB CONC 33 g/dL (31-37); MEAN CORPUSCULAR VOLUME 87 fL (79-100); MONO # 0.8 x10^3/uL (0.0-1.1); MONO % 3 % (0-9); NEUT # 27.8 x10^3uL (1.8-7.7); NEUT % 93 % (31-73); PLATELET COUNT 141 x10^3/uL (140-400); RED BLOOD COUNT 2.57 x10^6/uL (3.50-5.40); RED CELL DISTRIBUTION WIDTH 18.6 % (11.5-14.5); WHITE BLOOD COUNT 29.8 x10^3/uL (4.0-11.0)
[2018-01-13] MEDS ORDERED: IV NORMAL SALINE 1000ML BAG 1,000 ML IV PRN ×2 (06:54)
[2018-01-13 06:58] LABS: ALBUMIN 2.4 g/dL (3.4-5.0); CALCIUM 9.9 mg/dL (8.5-10.1); CREATININE 4.6 mg/dL (0.6-1.0); MAGNESIUM 2.2 mg/dL (1.8-2.4); PHOSPHORUS 2.3 mg/dL (2.6-4.7); POTASSIUM 4.6 mmol/L (3.5-5.1)
[2018-01-13 07:00] VITALS: BP 150/53
[2018-01-13] MEDS ORDERED: DIALYSIS PATIENT. MC PRN ×2 (07:00)
[2018-01-13] MEDS ORDERED: ALBUMIN HUMAN 25% 200 ML IV PRN (07:00)
[2018-01-13] MEDS: INSULIN LISPRO 300 UNITS/3 ML INSULN.PEN. SQ SCH ×3 (07:30→19:45)
[2018-01-13] MEDS: PANTOPRAZOLE 40 MG TABLET.DR. PO SCH (07:30)
[2018-01-13] MEDS: LIPASE/PROTEAS/AMYLAS 10/32/42 CAPSULE.DR. PO SCH ×3 (08:00→19:35)
[2018-01-13] MEDS: CARVEDILOL 12.5 MG TABLET. PO SCH ×2 (08:00→19:35)
--- NOTE | 2018-01-13 08:56 | PDOC ---
RUT EDWARDS CASHIER GENERAL 01/13/18 0856: IM PROGRESS NOTES- Subjective Subjective awake, confused conversation Objective Objective no distress Vitals Vital Signs Date Time Temp Pulse Resp B/P (MAP) Pulse Ox O2 Delivery O2 Flow Rate FiO2 01/13/18 07:00 97.1 64 16 150/53 (85) 95 Room Air 97.1 01/12/18 16:40 10 Input & Output Intake and Output 01/13/18 07:00 Intake Total 200 ml Output Total 10 ml Balance 190 ml Intake Oral 50 ml IV Total 150 ml Estimated Blood Loss 10 ml # Voids 2 # Bowel Movements 2 Physical Exam Physical Exam General appearance - alert, ill appearing, and in no distress distress Mental Status - alert, oriented person, place mildly confused Head - normal Chest - clear to auscultation, decreased bases, + chest wall tenderness Heart - S1 and S2 normal Abdomen - soft, nontender, nondistended,obese, BS + Neurological - no acute neurological deficit, wakens to name but falls asleep easily Musculoskeletal - no muscular tenderness noted Extremities - + edema Skin - warm and dry, wound sacral buttocks dressing in situ Labs Laboratory Tests Test 01/11/18 09:17 01/11/18 12:11 01/11/18 16:38 01/11/18 20:32 White Blood Count 24.7 x10^3/uL (4.0-11.0) Red Blood Count 2.51 x10^6/uL (3.50-5.40) Hemoglobin 7.3 g/dL (12.0-15.5) Hematocrit 21.7 % (36.0-47.0) Mean Corpuscular Volume 87 fL (79-100) Mean Corpuscular Hemoglobin 29 pg (25-35) Mean Corpuscular Hemoglobin Concent 33 g/dL (31-37) Red Cell Distribution Width 18.6 % (11.5-14.5) Platelet Count 129 x10^3/uL (140-400) Neutrophils (%) (Auto) 92 % (31-73) Lymphocytes (%) (Auto) 4 % (24-48) Monocytes (%) (Auto) 5 % (0-9) Eosinophils (%) (Auto) 0 % (0-3) Basophils (%) (Auto) 0 % (0-3) Neutrophils # (Auto) 22.6 x10^3uL (1.8-7.7) Lymphocytes # (Auto) 0.9 x10^3/uL (1.0-4.8) Monocytes # (Auto) 1.1 x10^3/uL (0.0-1.1) Eosinophils # (Auto) 0.0 x10^3/uL (0.0-0.7) Basophils # (Auto) 0.0 x10^3/uL (0.0-0.2) Glucose (Fingerstick) 80 mg/dL (70-99) 147 mg/dL (70-99) 169 mg/dL (70-99) Test 01/12/18 07:16 01/12/18 08:25 01/12/18 11:24 01/12/18 17:21 Glucose (Fingerstick) 126 mg/dL (70-99) 129 mg/dL (70-99) 115 mg/dL (70-99) White Blood Count 27.9 x10^3/uL (4.0-11.0) Red Blood Count 2.54 x10^6/uL (3.50-5.40) Hemoglobin 7.3 g/dL (12.0-15.5) Hematocrit 21.9 % (36.0-47.0) Mean Corpuscular Volume 86 fL (79-100) Mean Corpuscular Hemoglobin 29 pg (25-35) Mean Corpuscular Hemoglobin Concent 33 g/dL (31-37) Red Cell Distribution Width 17.9 % (11.5-14.5) Platelet Count 126 x10^3/uL (140-400) Neutrophils (%) (Auto) 93 % (31-73) Lymphocytes (%) (Auto) 2 % (24-48) Monocytes (%) (Auto) 5 % (0-9) Eosinophils (%) (Auto) 0 % (0-3) Basophils (%) (Auto) 0 % (0-3) Neutrophils # (Auto) 25.9 x10^3uL (1.8-7.7) Lymphocytes # (Auto) 0.6 x10^3/uL (1.0-4.8) Monocytes # (Auto) 1.3 x10^3/uL (0.0-1.1) Eosinophils # (Auto) 0.0 x10^3/uL (0.0-0.7) Basophils # (Auto) 0.0 x10^3/uL (0.0-0.2) Sodium Level 137 mmol/L (136-145) Potassium Level 3.8 mmol/L (3.5-5.1) Chloride Level 98 mmol/L (98-107) Carbon Dioxide Level 30 mmol/L (21-32) Anion Gap 9 (6-14) Blood Urea Nitrogen 19 mg/dL (7-20) Creatinine 3.4 mg/dL (0.6-1.0) Estimated GFR (Cockcroft-Gault) 17.0 Glucose Level 126 mg/dL (70-99) Calcium Level 9.3 mg/dL (8.5-10.1) Phosphorus Level 1.4 mg/dL (2.6-4.7) Magnesium Level 2.0 mg/dL (1.8-2.4) Albumin 2.3 g/dL (3.4-5.0) Test 01/12/18 17:52 01/12/18 20:43 01/13/18 05:45 01/13/18 07:52 Glucose (Fingerstick) 134 mg/dL (70-99) 152 mg/dL (70-99) 205 mg/dL (70-99) White Blood Count 29.8 x10^3/uL (4.0-11.0) Red Blood Count 2.57 x10^6/uL (3.50-5.40) Hemoglobin 7.3 g/dL (12.0-15.5) Hematocrit 22.3 % (36.0-47.0) Mean Corpuscular Volume 87 fL (79-100) Mean Corpuscular Hemoglobin 29 pg (25-35) Mean Corpuscular Hemoglobin Concent 33 g/dL (31-37) Red Cell Distribution Width 18.6 % (11.5-14.5) Platelet Count 141 x10^3/uL (140-400) Neutrophils (%) (Auto) 93 % (31-73) Lymphocytes (%) (Auto) 4 % (24-48) Monocytes (%) (Auto) 3 % (0-9) Eosinophils (%) (Auto) 0 % (0-3) Basophils (%) (Auto) 0 % (0-3) Neutrophils # (Auto) 27.8 x10^3uL (1.8-7.7) Lymphocytes # (Auto) 1.1 x10^3/uL (1.0-4.8) Monocytes # (Auto) 0.8 x10^3/uL (0.0-1.1) Eosinophils # (Auto) 0.0 x10^3/uL (0.0-0.7) Basophils # (Auto) 0.0 x10^3/uL (0.0-0.2) Sodium Level 136 mmol/L (136-145) Potassium Level 4.6 mmol/L (3.5-5.1) Chloride Level 98 mmol/L (98-107) Carbon Dioxide Level 27 mmol/L (21-32) Anion Gap 11 (6-14) Blood Urea Nitrogen 35 mg/dL (7-20) Creatinine 4.6 mg/dL (0.6-1.0) Estimated GFR (Cockcroft-Gault) 12.0 Glucose Level 188 mg/dL (70-99) Calcium Level 9.9 mg/dL (8.5-10.1) Phosphorus Level 2.3 mg/dL (2.6-4.7) Magnesium Level 2.2 mg/dL (1.8-2.4) Albumin 2.4 g/dL (3.4-5.0) Laboratory Tests Test 01/12/18 11:24 01/12/18 17:21 01/12/18 17:52 01/12/18 20:43 Glucose (Fingerstick) 129 mg/dL (70-99) 115 mg/dL (70-99) 134 mg/dL (70-99) 152 mg/dL (70-99) Test 01/13/18 05:45 01/13/18 07:52 White Blood Count 29.8 x10^3/uL (4.0-11.0) Red Blood Count 2.57 x10^6/uL (3.50-5.40) Hemoglobin 7.3 g/dL (12.0-15.5) Hematocrit 22.3 % (36.0-47.0) Mean Corpuscular Volume 87 fL (79-100) Mean Corpuscular Hemoglobin 29 pg (25-35) Mean Corpuscular Hemoglobin Concent 33 g/dL (31-37) Red Cell Distribution Width 18.6 % (11.5-14.5) Platelet Count 141 x10^3/uL (140-400) Neutrophils (%) (Auto) 93 % (31-73) Lymphocytes (%) (Auto) 4 % (24-48) Monocytes (%) (Auto) 3 % (0-9) Eosinophils (%) (Auto) 0 % (0-3) Basophils (%) (Auto) 0 % (0-3) Neutrophils # (Auto) 27.8 x10^3uL (1.8-7.7) Lymphocytes # (Auto) 1.1 x10^3/uL (1.0-4.8) Monocytes # (Auto) 0.8 x10^3/uL (0.0-1.1) Eosinophils # (Auto) 0.0 x10^3/uL (0.0-0.7) Basophils # (Auto) 0.0 x10^3/uL (0.0-0.2) Sodium Level 136 mmol/L (136-145) Potassium Level 4.6 mmol/L (3.5-5.1) Chloride Level 98 mmol/L (98-107) Carbon Dioxide Level 27 mmol/L (21-32) Anion Gap 11 (6-14) Blood Urea Nitrogen 35 mg/dL (7-20) Creatinine 4.6 mg/dL (0.6-1.0) Estimated GFR (Cockcroft-Gault) 12.0 Glucose Level 188 mg/dL (70-99) Calcium Level 9.9 mg/dL (8.5-10.1) Phosphorus Level 2.3 mg/dL (2.6-4.7) Magnesium Level 2.2 mg/dL (1.8-2.4) Albumin 2.4 g/dL (3.4-5.0) Glucose (Fingerstick) 205 mg/dL (70-99) Meds Current Medications Albumin Human 200 ml @ 200 mls/hr 1X PRN PRN IV Hypotension; Start 01/13/18 at 07:00; Stop 01/13/18 at 12:59 Bupivacaine HCl/ Epinephrine Bitart (Marcaine-Epi 0.25%-1:[id number]) 50 ml STK-MED ONCE .ROUTE Last administered on 01/12/18at 16:35; Start 01/12/18 at 15:19; Stop 01/12/18 at 16:20; Status DC Dexamethasone Sodium Phosphate (Decadron) 20 mg STK-MED ONCE .ROUTE ; Start 01/12 at 15:54; Stop 01/12/18 at 15:55; Status DC Ephedrine Sulfate (Akovaz) 50 mg STK-MED ONCE .ROUTE ; Start 01/12/18 at 15:49; Stop 01/12/18 at 15:50; Status DC Fentanyl Citrate (Fentanyl 2ml Vial) 25 mcg PRN Q5MIN PRN IV MILD PAIN Last administered on 01/12/18at 17:21; Start 01/12/18 at 09:15; Stop 01/13/18 at 09:14 Fentanyl Citrate (Fentanyl 2ml Vial) 50 mcg PRN Q5MIN PRN IV MODERATE TO SEVERE PAIN; Start 01/12/18 at 09:15; Stop 01/13/18 at 09:14 Fentanyl Citrate (Fentanyl 2ml Vial) 100 mcg STK-MED ONCE .ROUTE ; Start at 15:17; Stop 01/12/18 at 15:18; Status DC Fentanyl Citrate (Fentanyl 2ml Vial) 100 mcg STK-MED ONCE .ROUTE ; Start at 15:18; Stop 01/12/18 at 15:20; Status DC Info (PHARMACY MONITORING -- do not chart) 1 each PRN DAILY PRN MC SEE COMMENTS ; Start 01/13/18 at 07:00 Info (PHARMACY MONITORING -- do not chart) 1 each PRN DAILY PRN MC SEE COMMENTS ; Start 01/13/18 at 07:00; Status UNV Lidocaine HCl (Xylocaine-Mpf 1% Vial) 2 ml PRN 1X PRN ID PRIOR TO IV START; Start 01/12/18 at 09:15; Stop 01/13/18 at 09:14 Micafungin Sodium 100 mg/Dextrose 100 ml @ 100 mls/hr Q24H IV Last administered on 01/12/18at 09:23; Start 01/12/18 at 09:00 Ondansetron HCl (Zofran) 4 mg PRN Q6HRS PRN IV NAUSEA/VOMITING; Start 01/12/18 at 09:15; Stop 01/13/18 at 09:14 Phenylephrine HCl (PHENYLEPHRINE in 0.9% NACL PF) 1 mg STK-MED ONCE IV ; Start 01/12/18 at 15:44; Stop 01/12/18 at 15:46; Status DC Prochlorperazine Edisylate (Compazine) 5 mg PACU PRN PRN IV NAUSEA, MRX1 Last administered on 01/12/18at 14:43; Start 01/12/18 at 09:15; Stop 01/13/18 at 09:14 Prochlorperazine Edisylate (Compazine) 10 mg STK-MED ONCE .ROUTE ; Start at 14:40; Stop 01/12/18 at 14:41; Status DC Sodium Chloride 1,000 ml @ 0 mls/hr Q0M IV Last administered on 01/12/18at 14:27 ; Start 01/12/18 at 14:15 Sodium Chloride 1,000 ml @ 400 mls/hr Q2H30M PRN IV PATENCY; Start 01/13/18 at 06:54; Stop 01/13/18 at 18:53 Sodium Chloride 1,000 ml @ 1,000 mls/hr Q1H PRN IV hypotension; Start 01/13/18 at 06:54; Stop 01/13/18 at 12:53 Sodium Chloride (Normal Saline Flush) 3 ml QSHIFT PRN IV AFTER MEDS AND BLOOD DRAWS; Start 01/12/18 at 16:45 Succinylcholine Chloride (Anectine) 200 mg STK-MED ONCE .ROUTE ; Start 01/12/18 at 15:19; Stop 01/12/18 at 15:20; Status DC Assessment Assessment FINAL DIAGNOSIS: 1. Chest pain - chest wall MS pain not costochondritis- sternal incision pain 2. LLL pneumonia HCFA gram - gram + with sepsis POA 3. sepsis - LLL pneumonia/ probable infected pressure wound sacral/buttocks 4. metabolic encephalopathy 5. acute on chronic anemia ESRD 6. Chest pain with h/o CABG 11/2017 8. Pressure wound coccyx sacrum with black eschar 9. abnormal troponin with h/o NSTEMI 10. End-stage renal disease, on hemodialysis TTS 11. 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 12. History of hyperparathyroidism secondary to end-stage renal disease. 13. Hyperlipidemia. 14. Severe pulmonary hypertension. 15. Asthma. 16. Gastroesophageal reflux disease. 17. CAD with ND unknown age and + small ischemia per MPI medical management with recent CABG 18. Negative hepatitis C. 19. moderate severe depression recurrent 20. DM II insulin gastroparesis, ESRD 21. severe PCL malnutrition with decreased po intake 22. moderate weakness and debility 23, depression 24. secondary hyperparathyroidism 25. post op CABG L leg paralysis post op 26. Diastolic congestive heart failure with preserved ejection fraction not acute 27. severe PCL malnutrition with underlying moderate PCL malnutrition 28. h/o recent code blue 29. infected sacral ulcer POA s/p debridement to muscle 01/12/18 PLAN: chest pain cardiology following Admit troponin 0.046 leukocytosis/ fever/ question infiltrate LLL Chronic LLL effusion pulmonary following - no further thoracentesis at this time CT chest w/o contrast pending fever/leukocytosis Admit WBC 21.7 today 20.9 ESR 35 CRP 20.9 Pre Calcitonin 2.05 ID following Vancomycin zosyn Prelim BC 1 or 7 + for gram + cocci Anemia/thrombocytopenia Admit Hgb 7.3 decreased to 6.4 and today 7.3 post 1U PRC thrombocytopenia Admit 215 today 123 - monitor - r/t infectious process/ antibiotics Severe depression Zoloft continues pysch consult had been ordered [facility] ESRD hemodialysis continued in patient DVT/GI prophylaxis SCD/JEN PPI Screen LTAC 01/11/18 chest wall pain - improved with Voltaren Gel - CT chest w/o noted mild edema identified in the subcutaneous region of the chest similar to prior exam. pressure wound - wound care note reviewed - will obtain surgical consult to eval for debridement - local wound care started sepsis pneumonia - lab pending - Tm 100.7F last 24 hours - ID following - on zosyn and Vanco abnormal CXR -CT chest 01/10- Left lower lobe lung consolidation with air bronchograms identified likely pneumonia or postobstructive atelectasis. ESRD - HD Admit wt 191# today 185.56# - DM II - BS 81-89 Await [facility] screen Labs pending For further plan of care, please refer to the orders. 01/12/18 wound - to OR today for debridement. continue IV antibiotics sepsis - pneumonia/probable infected pressure wound - Zosyn Vanco continue - fever improved. DM - BS 80-169 encephalopathy - improving slowly Pain control - will begin fentanyl 50mcg q4hr prn pain and continue lortab q8hr prn ESRD - dialysis continues wt. today 179.56 PICC ordered 01/11- nephrology concerned regarding length of need - ID contacted by staff - change order to central line - anesthesia contacted - will insert in surgery. For more details regarding further plans, please refer to the orders. 01/13/18 wound - IV antibiotics zosyn/vanc and micafungin added 01/12. Procedure 01/13/[address] Coulter: Excisional debridement of skin, subcutaneous tissue, muscle 5 cm sacral ulcer with necrotic tissue extending down through skin, subcutaneous tissue to muscle, no bony involvement sepsis - pneumonia/probable infected pressure wound - Zosyn Vanco continue - micafungin added 01/12 DM - 115-205 Anemia - Hgb 7.3 thrombocytopenia r/t med/infection - Admit Plt 215 -lowest 01/12 126 and today improved to 161 encephalopathy - improving slowly Pain control - will begin fentanyl 50mcg q4hr prn pain and continue lortab q8hr prn - less moaning ESRD - dialysis continues wt. today 185.06 [facility] Screen in process. For more details regarding further plans, please refer to the orders. Plan Plan For more details regarding further plans, please refer to the orders. Nutrition Consultation Dietary Evaluation: Recommendations by RD: Protein supplementation Comments: REC Glucerna TID Will add ADA diet restriction to current renal diet per pmhx Continue w/tiffani-kapil Expected Outcomes/Goals: PO intake to meet >75% est needs Malnutrition Findings: Food and Nutrition Intake (Mod: <75% est energy req 7days Weight Status: Overweight GAURAV DANG MD 01/13/18 0933: IM PROGRESS NOTES- Assessment Assessment The patient was seen and examined by me. Chart reviewed and plan of care formulated. Discussed with, reviewed and agree with BRICK OFFBEARER's notes, plan of care and orders with modifications as necessary. For more details regarding further plans, please refer to the orders. RUT EDWARDS APRN Jan 13, 2018 08:56 GAURAV DANG MD Jan 13, 2018 09:33
[2018-01-13] MEDS: FOLIC/VIT B COMP W-C (RENAL) TABLET. PO SCH (09:00)
[2018-01-13] MEDS: ACETAMINOPHEN 500 MG TABLET PO SCH ×3 (09:00→19:36)
[2018-01-13] MEDS: CHOLECALCIFEROL (VITAMIN D3) 1,000 UNIT TABLET PO SCH (09:00)
[2018-01-13] MEDS: DICLOFENAC SODIUM 1% TOPICAL GEL 100GM TUBE. TP SCH ×3 (09:00→19:37)
[2018-01-13] MEDS: MINOXIDIL 2.5 MG TABLET PO SCH ×2 (09:00→15:39)
--- NOTE | 2018-01-13 09:20 | PDOC ---
SUBJECTIVE ROS no new concerns OBJECTIVE Vital Signs Vital Signs Date Time Temp Pulse Resp B/P (MAP) Pulse Ox O2 Delivery O2 Flow Rate FiO2 01/13/18 07:00 97.1 64 16 150/53 (85) 95 Room Air 97.1 01/12/18 16:40 10 I & 0 Intake and Output 01/13/18 07:00 Intake Total 200 ml Output Total 10 ml Balance 190 ml Intake Oral 50 ml IV Total 150 ml Estimated Blood Loss 10 ml # Voids 2 # Bowel Movements 2 PHYSICAL EXAM Physical Exam GENERAL: NAD HEENT: OM moist NECK: No JVD LUNGS: Diminished aeration in the bases. Nonlabored. HEART: S1 and S2. ABDOMEN: Obese. Bowel sounds active. Soft, nontender. EXTREMITIES: 1-2+ edema in lower extremities bilaterally,L>R SKIN: No rash. wound, left ischial and large sacral wound LUE, AV fistula unremarkable. NEUROLOGIC: responds to questions minimally. DIAGNOSIS/ASSESSMENT Assessment & Plan ESRD/- On HD TTS Seen on hD, tolerating well Continue as Ordered Status [place] coronary artery [place] [facility] [place] Hypophosphatemia- Held Phos Lo , Monitor. Will restart if Phos above goal Anemia- Acute on chronic Post PRBC Diabetes mellitus, type 2. History of cerebrovascular accident with left-sided weakness and is chair bound. 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 COMMENT/RELEVANT DATA Meds Current Medications Medications (Trade) Dose Ordered Sig/Srinath Start Time Stop Time Status Last Admin Dose Admin Acetaminophen (Tylenol) 325 mg PRN Q6HRS PRN 01/10/18 09:15 Acetaminophen/ Hydrocodone Bitart (Lortab 7.5/325) 1 tab PRN Q8HRS PRN 01/10/18 09:45 01/12/18 20:42 1 TAB Albumin Human 200 ml @ 200 mls/hr 1X PRN PRN 01/13/18 07:00 01/13/18 12:59 Amylase/Lipase/ Protease (Zenpep 10,000) 2 cap TIDWMEALS 01/09/18 09:00 01/11/18 17:48 2 CAP Bupivacaine HCl/ Epinephrine Bitart (Marcaine-Epi 0.25%-1:145620) 50 ml STK-MED ONCE 01/12/18 15:19 01/12/18 16:20 DC 01/12/18 16:35 5 ML Calcium Acetate (Phoslo) 1,334 mg TIDWMEALS 01/09/18 09:00 01/10/18 15:33 DC 01/10/18 12:24 1,334 MG Carvedilol (Coreg) 12.5 mg BIDWMEALS 01/09/18 09:00 01/12/18 08:47 12.5 MG Darbepoetin Ty (Aranesp) 60 mcg WEEKLYHS 01/09/18 21:00 01/09/18 21:29 60 MCG Dexamethasone Sodium Phosphate (Decadron) 20 mg STK-MED ONCE 01/12/18 15:54 01/12/18 15:55 DC Diclofenac Sodium (Voltaren) 1 graciela TID 01/10/18 14:00 01/12/18 20:43 1 GRACIELA Diphenhydramine HCl (Benadryl) 25 mg 1X PRN PRN 01/10/18 14:30 01/11/18 14:29 DC Ephedrine Sulfate (Akovaz) 50 mg STK-MED ONCE 01/12/18 15:49 01/12/18 15:50 DC Fentanyl Citrate (Fentanyl 2ml Vial) 100 mcg STK-MED ONCE 01/12/18 15:18 01/12/18 15:20 DC Info (PHARMACY MONITORING -- do not chart) 1 each PRN DAILY PRN 01/13/18 07:00 UNV Insulin Human Lispro (HumaLOG) 0-5 UNITS TIDAC 01/09/18 11:30 Iohexol (Omnipaque 300 Mg/ml) 75 ml 1X ONCE 01/08/18 18:15 01/08/18 18:16 DC 01/08/18 19:35 75 ML Isosorbide Mononitrate (Imdur) 120 mg DAILY 01/09/18 09:00 01/12/18 08:46 120 MG Lactobacillus Rhamnosus (Culturelle) 1 cap BID 01/10/18 21:00 01/12/18 20:41 1 CAP Lidocaine HCl (Xylocaine-Mpf 1% Vial) 2 ml PRN 1X PRN 01/12/18 09:15 01/13/18 09:14 DC Lorazepam (Ativan) 1 mg PRN Q4HRS PRN 01/08/18 18:00 8/6/18 09:24 DC 01/09/18 21:30 1 MG Losartan Potassium (Cozaar) 100 mg DAILY 01/09/18 09:00 Magnesium Sulfate 50 ml @ 25 mls/hr PRN DAILY PRN 01/09/18 10:15 Micafungin Sodium 100 mg/Dextrose 100 ml @ 100 mls/hr Q24H 01/12/18 09:00 01/12/18 09:23 100 MLS/HR Minoxidil (Loniten) 2.5 mg BID 01/09/18 09:00 01/12/18 20:41 2.5 MG Montelukast Sodium (Singulair) 10 mg QHS 01/09/18 21:00 01/12/18 20:42 10 MG Morphine Sulfate (Morphine Sulfate) 2 mg PRN Q2HR PRN 01/08/18 16:00 01/09/18 15:59 DC 01/08/18 17:06 2 MG Nitroglycerin (Nitrostat) 0.4 mg PRN Q5MIN PRN 01/09/18 08:45 Non-Formulary Medication (Insulin Aspart (Novolog Flexpen)) TIDAC 01/09/18 11:30 UNV Ondansetron HCl (Zofran) 4 mg PRN Q6HRS PRN 01/12/18 09:15 01/13/18 09:14 DC Pantoprazole Sodium (Protonix) 40 mg DAILYAC 01/09/18 09:00 01/12/18 08:46 40 MG Phenylephrine HCl (PHENYLEPHRINE in 0.9% NACL PF) 1 mg STK-MED ONCE 01/12/18 15:44 01/12/18 15:46 DC Piperacillin Sod/ Tazobactam Sod (Zosyn Per Pharmacy) 1 each PRN DAILY PRN 01/09/18 11:15 Piperacillin Sod/ Tazobactam Sod 2.25 gm/Sodium Chloride 50 ml @ 100 mls/hr Q8HRS 01/09/18 12:00 01/13/18 05:07 100 MLS/HR Polyethylene Glycol (miraLAX PACKET) 17 gm DAILY 01/09/18 09:00 Prochlorperazine Edisylate (Compazine) 10 mg STK-MED ONCE 01/12/18 14:40 01/12/18 14:41 DC Sertraline HCl (Zoloft) 100 mg DAILY 01/09/18 09:00 01/12/18 08:45 100 MG Sodium Chloride 1,000 ml @ 400 mls/hr Q2H30M PRN 01/13/18 06:54 01/13/18 18:53 Sodium Chloride (Normal Saline Flush) 3 ml QSHIFT PRN 01/12/18 16:45 Succinylcholine Chloride (Anectine) 200 mg STK-MED ONCE 01/12/18 15:19 01/12/18 15:20 DC Vancomycin HCl (Vanco Per Pharmacy) 1 each PRN DAILY PRN 01/08/18 15:30 01/12/18 09:16 1 EACH Vancomycin HCl (Vancomycin Random Level) 1 each 1X ONCE 01/10/18 05:00 01/10/18 05:01 DC 01/10/18 05:00 1 EACH Vancomycin HCl 1.75 gm/Sodium Chloride 500 ml @ 250 mls/hr 1X ONCE 01/08/18 15:30 01/08/18 17:29 DC 01/08/18 15:39 250 MLS/HR Vancomycin HCl 500 mg/Sodium Chloride 100 ml @ 100 mls/hr QTUTHSA 01/11/18 16:00 01/11/18 20:41 100 MLS/HR Vitamin B Complex/ Vitamin C (Anneliese-Donny) 1 tab DAILY 01/09/18 09:00 01/11/18 12:15 1 TAB Vitamin D (Vitamin D3) 1,000 unit DAILY 01/09/18 09:00 01/11/18 12:15 1,000 UNIT Lab Laboratory Tests Test 01/12/18 11:24 01/12/18 17:21 01/12/18 17:52 01/12/18 20:43 Glucose (Fingerstick) 129 mg/dL (70-99) 115 mg/dL (70-99) 134 mg/dL (70-99) 152 mg/dL (70-99) Test 01/13/18 05:45 01/13/18 07:52 White Blood Count 29.8 x10^3/uL (4.0-11.0) Red Blood Count 2.57 x10^6/uL (3.50-5.40) Hemoglobin 7.3 g/dL (12.0-15.5) Hematocrit 22.3 % (36.0-47.0) Mean Corpuscular Volume 87 fL (79-100) Mean Corpuscular Hemoglobin 29 pg (25-35) Mean Corpuscular Hemoglobin Concent 33 g/dL (31-37) Red Cell Distribution Width 18.6 % (11.5-14.5) Platelet Count 141 x10^3/uL (140-400) Neutrophils (%) (Auto) 93 % (31-73) Lymphocytes (%) (Auto) 4 % (24-48) Monocytes (%) (Auto) 3 % (0-9) Eosinophils (%) (Auto) 0 % (0-3) Basophils (%) (Auto) 0 % (0-3) Neutrophils # (Auto) 27.8 x10^3uL (1.8-7.7) Lymphocytes # (Auto) 1.1 x10^3/uL (1.0-4.8) Monocytes # (Auto) 0.8 x10^3/uL (0.0-1.1) Eosinophils # (Auto) 0.0 x10^3/uL (0.0-0.7) Basophils # (Auto) 0.0 x10^3/uL (0.0-0.2) Sodium Level 136 mmol/L (136-145) Potassium Level 4.6 mmol/L (3.5-5.1) Chloride Level 98 mmol/L (98-107) Carbon Dioxide Level 27 mmol/L (21-32) Anion Gap 11 (6-14) Blood Urea Nitrogen 35 mg/dL (7-20) Creatinine 4.6 mg/dL (0.6-1.0) Estimated GFR (Cockcroft-Gault) 12.0 Glucose Level 188 mg/dL (70-99) Calcium Level 9.9 mg/dL (8.5-10.1) Phosphorus Level 2.3 mg/dL (2.6-4.7) Magnesium Level 2.2 mg/dL (1.8-2.4) Albumin 2.4 g/dL (3.4-5.0) Glucose (Fingerstick) 205 mg/dL (70-99) Results All relevant outside records, renal labs, imaging studies, telemetry/EKG's were reviewed. RY ESCOBAR MD Jan 13, 2018 09:20
[2018-01-13] MEDS: fentaNYL PF VIAL 100 MCG/2 ML VIAL IV PRN ×4 (09:36→23:48)
--- NOTE | 2018-01-13 10:07 | PDOC ---
Infectious Disease Note Subjective Subjective Has some pain this am and a little nausea Denies F/C/S/D/SOA/rash some backside pain today - laying on wound in HD Has been refusing to offload ROS ROS o/w neg Vital Sign Vital Signs Vital Signs Date Time Temp Pulse Resp B/P (MAP) Pulse Ox O2 Delivery O2 Flow Rate FiO2 01/13/18 07:00 97.1 64 16 150/53 (85) 95 Room Air 97.1 01/12/18 16:40 10 Physical Exam PHYSICAL EXAM GENERAL: NAD, alert and a little anxious but coop HEENT: Normal conjunctivae. Oral mucosa is pink and dry. No thrush. NECK: No JVD LUNGS: Diminished aeration in the bases. Nonlabored. HEART: S1 and S2. ABDOMEN: Obese. Bowel sounds active. Soft, nontender. EXTREMITIES: 1-2+ edema in lower extremities bilaterally. No cyanosis. SKIN: Warm without generalized rash. LUE, AV fistula unremarkable. RIJ - clean NEUROLOGIC: Alert and answering questions Labs Lab Laboratory Tests Test 01/12/18 11:24 01/12/18 17:21 01/12/18 17:52 01/12/18 20:43 Glucose (Fingerstick) 129 mg/dL (70-99) 115 mg/dL (70-99) 134 mg/dL (70-99) 152 mg/dL (70-99) Test 01/13/18 05:45 01/13/18 07:52 White Blood Count 29.8 x10^3/uL (4.0-11.0) Red Blood Count 2.57 x10^6/uL (3.50-5.40) Hemoglobin 7.3 g/dL (12.0-15.5) Hematocrit 22.3 % (36.0-47.0) Mean Corpuscular Volume 87 fL (79-100) Mean Corpuscular Hemoglobin 29 pg (25-35) Mean Corpuscular Hemoglobin Concent 33 g/dL (31-37) Red Cell Distribution Width 18.6 % (11.5-14.5) Platelet Count 141 x10^3/uL (140-400) Neutrophils (%) (Auto) 93 % (31-73) Lymphocytes (%) (Auto) 4 % (24-48) Monocytes (%) (Auto) 3 % (0-9) Eosinophils (%) (Auto) 0 % (0-3) Basophils (%) (Auto) 0 % (0-3) Neutrophils # (Auto) 27.8 x10^3uL (1.8-7.7) Lymphocytes # (Auto) 1.1 x10^3/uL (1.0-4.8) Monocytes # (Auto) 0.8 x10^3/uL (0.0-1.1) Eosinophils # (Auto) 0.0 x10^3/uL (0.0-0.7) Basophils # (Auto) 0.0 x10^3/uL (0.0-0.2) Sodium Level 136 mmol/L (136-145) Potassium Level 4.6 mmol/L (3.5-5.1) Chloride Level 98 mmol/L (98-107) Carbon Dioxide Level 27 mmol/L (21-32) Anion Gap 11 (6-14) Blood Urea Nitrogen 35 mg/dL (7-20) Creatinine 4.6 mg/dL (0.6-1.0) Estimated GFR (Cockcroft-Gault) 12.0 Glucose Level 188 mg/dL (70-99) Calcium Level 9.9 mg/dL (8.5-10.1) Phosphorus Level 2.3 mg/dL (2.6-4.7) Magnesium Level 2.2 mg/dL (1.8-2.4) Albumin 2.4 g/dL (3.4-5.0) Glucose (Fingerstick) 205 mg/dL (70-99) Micro CT Chest 01/10 IMPRESSION: 1. Left lower lobe lung consolidation with air bronchograms identified likely pneumonia or postobstructive atelectasis. Follow-up to resolution. Mild to moderate left pleural effusion has mildly decreased compared to prior exam. 2. Moderate cardiomegaly with coronary artery calcifications. Microbiology 01/08/18 Blood Culture - Final, Complete Objective Assessment 1. Leukocytosis - stable but also s/p PRBCs. Now post op and s/p dexamethasone 01/12 2. Fever - improved. 3. Pressure wounds of sacral and left ischial areas, present on admission - s/ p I and D 01/12 - no bone 4. H/o Left pleural effusion now ? pneumonia on CT. 5. Acute anemia. 6. Chronic kidney disease, on hemodialysis via arteriovenous fistula. 7. Status post coronary artery bypass grafting in November 2017 at [facility]. 8. Chronic heart failure. 9. Diabetes mellitus, type 2. 10. History of cerebrovascular accident with left-sided weakness and is chair bound. 11. 06/13 bottles + 01/08 Plan Plan of Care Discontinue vancomycin/Zosyn as WBC increased again prior to surgery Begin Meropenem/Zyvox Cont micafungin today f/u am labs and Local wound care and offloading but d/w nursing and after offloading position is established, she rolls back to previous position on her back. I expressed to her she needs to stay off the wound GARFIELD CASTORENA MD Jan 13, 2018 10:07
--- NOTE | 2018-01-13 12:32 | PDOC ---
SURGICAL PROGRESS NOTE Subjective in dialysis d/w nursing wound packed today, no bleeding, some fluid drainage Vital Signs Vital Signs Date Time Temp Pulse Resp B/P (MAP) Pulse Ox O2 Delivery O2 Flow Rate FiO2 01/13/18 07:00 97.1 64 16 150/53 (85) 95 Room Air 97.1 01/12/18 16:40 10 I&O Intake and Output 01/13/18 07:00 Intake Total 200 ml Output Total 10 ml Balance 190 ml Intake Oral 50 ml IV Total 150 ml Estimated Blood Loss 10 ml # Voids 2 # Bowel Movements 2 Labs Laboratory Tests Test 01/11/18 16:38 01/11/18 20:32 01/12/18 07:16 01/12/18 08:25 Glucose (Fingerstick) 147 mg/dL (70-99) 169 mg/dL (70-99) 126 mg/dL (70-99) White Blood Count 27.9 x10^3/uL (4.0-11.0) Red Blood Count 2.54 x10^6/uL (3.50-5.40) Hemoglobin 7.3 g/dL (12.0-15.5) Hematocrit 21.9 % (36.0-47.0) Mean Corpuscular Volume 86 fL (79-100) Mean Corpuscular Hemoglobin 29 pg (25-35) Mean Corpuscular Hemoglobin Concent 33 g/dL (31-37) Red Cell Distribution Width 17.9 % (11.5-14.5) Platelet Count 126 x10^3/uL (140-400) Neutrophils (%) (Auto) 93 % (31-73) Lymphocytes (%) (Auto) 2 % (24-48) Monocytes (%) (Auto) 5 % (0-9) Eosinophils (%) (Auto) 0 % (0-3) Basophils (%) (Auto) 0 % (0-3) Neutrophils # (Auto) 25.9 x10^3uL (1.8-7.7) Lymphocytes # (Auto) 0.6 x10^3/uL (1.0-4.8) Monocytes # (Auto) 1.3 x10^3/uL (0.0-1.1) Eosinophils # (Auto) 0.0 x10^3/uL (0.0-0.7) Basophils # (Auto) 0.0 x10^3/uL (0.0-0.2) Sodium Level 137 mmol/L (136-145) Potassium Level 3.8 mmol/L (3.5-5.1) Chloride Level 98 mmol/L (98-107) Carbon Dioxide Level 30 mmol/L (21-32) Anion Gap 9 (6-14) Blood Urea Nitrogen 19 mg/dL (7-20) Creatinine 3.4 mg/dL (0.6-1.0) Estimated GFR (Cockcroft-Gault) 17.0 Glucose Level 126 mg/dL (70-99) Calcium Level 9.3 mg/dL (8.5-10.1) Phosphorus Level 1.4 mg/dL (2.6-4.7) Magnesium Level 2.0 mg/dL (1.8-2.4) Albumin 2.3 g/dL (3.4-5.0) Test 01/12/18 11:24 01/12/18 17:21 01/12/18 17:52 01/12/18 20:43 Glucose (Fingerstick) 129 mg/dL (70-99) 115 mg/dL (70-99) 134 mg/dL (70-99) 152 mg/dL (70-99) Test 01/13/18 05:45 01/13/18 07:52 White Blood Count 29.8 x10^3/uL (4.0-11.0) Red Blood Count 2.57 x10^6/uL (3.50-5.40) Hemoglobin 7.3 g/dL (12.0-15.5) Hematocrit 22.3 % (36.0-47.0) Mean Corpuscular Volume 87 fL (79-100) Mean Corpuscular Hemoglobin 29 pg (25-35) Mean Corpuscular Hemoglobin Concent 33 g/dL (31-37) Red Cell Distribution Width 18.6 % (11.5-14.5) Platelet Count 141 x10^3/uL (140-400) Neutrophils (%) (Auto) 93 % (31-73) Lymphocytes (%) (Auto) 4 % (24-48) Monocytes (%) (Auto) 3 % (0-9) Eosinophils (%) (Auto) 0 % (0-3) Basophils (%) (Auto) 0 % (0-3) Neutrophils # (Auto) 27.8 x10^3uL (1.8-7.7) Lymphocytes # (Auto) 1.1 x10^3/uL (1.0-4.8) Monocytes # (Auto) 0.8 x10^3/uL (0.0-1.1) Eosinophils # (Auto) 0.0 x10^3/uL (0.0-0.7) Basophils # (Auto) 0.0 x10^3/uL (0.0-0.2) Sodium Level 136 mmol/L (136-145) Potassium Level 4.6 mmol/L (3.5-5.1) Chloride Level 98 mmol/L (98-107) Carbon Dioxide Level 27 mmol/L (21-32) Anion Gap 11 (6-14) Blood Urea Nitrogen 35 mg/dL (7-20) Creatinine 4.6 mg/dL (0.6-1.0) Estimated GFR (Cockcroft-Gault) 12.0 Glucose Level 188 mg/dL (70-99) Calcium Level 9.9 mg/dL (8.5-10.1) Phosphorus Level 2.3 mg/dL (2.6-4.7) Magnesium Level 2.2 mg/dL (1.8-2.4) Albumin 2.4 g/dL (3.4-5.0) Glucose (Fingerstick) 205 mg/dL (70-99) Laboratory Tests Test 01/12/18 17:21 01/12/18 17:52 01/12/18 20:43 01/13/18 05:45 Glucose (Fingerstick) 115 mg/dL (70-99) 134 mg/dL (70-99) 152 mg/dL (70-99) White Blood Count 29.8 x10^3/uL (4.0-11.0) Red Blood Count 2.57 x10^6/uL (3.50-5.40) Hemoglobin 7.3 g/dL (12.0-15.5) Hematocrit 22.3 % (36.0-47.0) Mean Corpuscular Volume 87 fL (79-100) Mean Corpuscular Hemoglobin 29 pg (25-35) Mean Corpuscular Hemoglobin Concent 33 g/dL (31-37) Red Cell Distribution Width 18.6 % (11.5-14.5) Platelet Count 141 x10^3/uL (140-400) Neutrophils (%) (Auto) 93 % (31-73) Lymphocytes (%) (Auto) 4 % (24-48) Monocytes (%) (Auto) 3 % (0-9) Eosinophils (%) (Auto) 0 % (0-3) Basophils (%) (Auto) 0 % (0-3) Neutrophils # (Auto) 27.8 x10^3uL (1.8-7.7) Lymphocytes # (Auto) 1.1 x10^3/uL (1.0-4.8) Monocytes # (Auto) 0.8 x10^3/uL (0.0-1.1) Eosinophils # (Auto) 0.0 x10^3/uL (0.0-0.7) Basophils # (Auto) 0.0 x10^3/uL (0.0-0.2) Sodium Level 136 mmol/L (136-145) Potassium Level 4.6 mmol/L (3.5-5.1) Chloride Level 98 mmol/L (98-107) Carbon Dioxide Level 27 mmol/L (21-32) Anion Gap 11 (6-14) Blood Urea Nitrogen 35 mg/dL (7-20) Creatinine 4.6 mg/dL (0.6-1.0) Estimated GFR (Cockcroft-Gault) 12.0 Glucose Level 188 mg/dL (70-99) Calcium Level 9.9 mg/dL (8.5-10.1) Phosphorus Level 2.3 mg/dL (2.6-4.7) Magnesium Level 2.2 mg/dL (1.8-2.4) Albumin 2.4 g/dL (3.4-5.0) Test 01/13/18 07:52 Glucose (Fingerstick) 205 mg/dL (70-99) Problem List Problems Medical Problems: (1) End stage renal disease Status: Acute Assessment/Plan wound care consult ROJELIO CRUMP APRN Jan 13, 2018 12:32
[2018-01-13] MEDS: LOSARTAN POTASSIUM 50 MG TABLET. PO SCH (13:00)
[2018-01-13] MEDS: ISOSORBIDE MONONITRATE ER 30 MG TAB.ER.24H PO SCH (13:30)
[2018-01-13] MEDS: POLYETHYLENE GLYCOL 3350 17 GM PACKET. PO SCH (13:30)
[2018-01-13 15:00] VITALS: BP 163/64
[2018-01-13] MEDS: MEROPENEM 500 MG in IV NORMAL SALINE 50ML 50 ML IV SCH (15:10)
[2018-01-13] MEDS: MICAFUNGIN 100 MG in IV DEXTROSE 5% 100ML 100 ML IV SCH (15:10)
[2018-01-13] MEDS: LINEZOLID 600 MG TABLET PO SCH ×2 (15:38→19:36)
[2018-01-13] MEDS: LACTOBACILLUS RHAMNOSUS GG 1 CAPSULE. PO SCH ×2 (15:39→19:35)
[2018-01-13] MEDS: SERTRALINE 50 MG TABLET. PO SCH (15:41)
[2018-01-13] MEDS: HYDROcodone/APAP 7.5/325MG 1 TAB TABLET PO PRN (16:48)
[2018-01-13 19:00] VITALS: BP 139/62
[2018-01-13] MEDS: MONTELUKAST SODIUM 10 MG TABLET. PO SCH (19:35)
[2018-01-13 23:00] VITALS: BP 167/72
[2018-01-14 03:44] VITALS: BP 125/64
[2018-01-14] MEDS: HYDROcodone/APAP 7.5/325MG 1 TAB TABLET PO PRN ×2 (04:23→15:00)
[2018-01-14] MEDS: fentaNYL PF VIAL 100 MCG/2 ML VIAL IV PRN ×3 (05:37→19:47)
[2018-01-14 06:21] LABS: BASO % 0 % (0-3); EOS % 0 % (0-3); HEMATOCRIT 21.4 % (36.0-47.0); HEMOGLOBIN 7.2 g/dL (12.0-15.5); LYMPH # 1.5 x10^3/uL (1.0-4.8); LYMPH % 7 % (24-48); MEAN CORPUSCULAR HEMOGLOBIN 29 pg (25-35); MEAN CORPUSCULAR HGB CONC 33 g/dL (31-37); MEAN CORPUSCULAR VOLUME 85 fL (79-100); MONO # 0.7 x10^3/uL (0.0-1.1); MONO % 3 % (0-9); NEUT # 20.1 x10^3uL (1.8-7.7); NEUT % 90 % (31-73); PLATELET COUNT 151 x10^3/uL (140-400); RED BLOOD COUNT 2.51 x10^6/uL (3.50-5.40); RED CELL DISTRIBUTION WIDTH 18.8 % (11.5-14.5); WHITE BLOOD COUNT 22.3 x10^3/uL (4.0-11.0)
[2018-01-14 06:22] LABS: ALBUMIN 2.4 g/dL (3.4-5.0); CALCIUM 9.3 mg/dL (8.5-10.1); GFR 19.6; PHOSPHORUS 1.6 mg/dL (2.6-4.7); POTASSIUM 3.6 mmol/L (3.5-5.1)
[2018-01-14 07:00] VITALS: BP 122/47
[2018-01-14] MEDS: INSULIN LISPRO 300 UNITS/3 ML INSULN.PEN. SQ SCH ×3 (07:30→16:30)
[2018-01-14] MEDS: LIPASE/PROTEAS/AMYLAS 10/32/42 CAPSULE.DR. PO SCH ×3 (08:00→17:00)
--- NOTE | 2018-01-14 08:24 | PDOC ---
RUT EDWARDS [employer] 01/14/18 0823: IM PROGRESS NOTES- Subjective Subjective awake, confused conversation Objective Objective no distress Vitals Vital Signs Date Time Temp Pulse Resp B/P (MAP) Pulse Ox O2 Delivery O2 Flow Rate FiO2 01/14/18 07:00 98.4 64 16 122/47 (72) 97 Room Air 98.4 Input & Output Intake and Output 01/14/18 07:00 Intake Total 270 ml Balance 270 ml Intake Oral 270 ml Physical Exam Physical Exam General appearance - alert, ill appearing, and in no distress distress Mental Status - alert, oriented person, place mildly confused Head - normal Chest - clear to auscultation, decreased bases, + chest wall tenderness Heart - S1 and S2 normal Abdomen - soft, nontender, nondistended,obese, BS + Neurological - no acute neurological deficit, wakens to name but falls asleep easily Musculoskeletal - no muscular tenderness noted Extremities - + edema Skin - warm and dry, wound sacral buttocks dressing in situ Labs Laboratory Tests Test 01/12/18 08:25 01/12/18 11:24 01/12/18 17:21 01/12/18 17:52 White Blood Count 27.9 x10^3/uL (4.0-11.0) Red Blood Count 2.54 x10^6/uL (3.50-5.40) Hemoglobin 7.3 g/dL (12.0-15.5) Hematocrit 21.9 % (36.0-47.0) Mean Corpuscular Volume 86 fL (79-100) Mean Corpuscular Hemoglobin 29 pg (25-35) Mean Corpuscular Hemoglobin Concent 33 g/dL (31-37) Red Cell Distribution Width 17.9 % (11.5-14.5) Platelet Count 126 x10^3/uL (140-400) Neutrophils (%) (Auto) 93 % (31-73) Lymphocytes (%) (Auto) 2 % (24-48) Monocytes (%) (Auto) 5 % (0-9) Eosinophils (%) (Auto) 0 % (0-3) Basophils (%) (Auto) 0 % (0-3) Neutrophils # (Auto) 25.9 x10^3uL (1.8-7.7) Lymphocytes # (Auto) 0.6 x10^3/uL (1.0-4.8) Monocytes # (Auto) 1.3 x10^3/uL (0.0-1.1) Eosinophils # (Auto) 0.0 x10^3/uL (0.0-0.7) Basophils # (Auto) 0.0 x10^3/uL (0.0-0.2) Sodium Level 137 mmol/L (136-145) Potassium Level 3.8 mmol/L (3.5-5.1) Chloride Level 98 mmol/L (98-107) Carbon Dioxide Level 30 mmol/L (21-32) Anion Gap 9 (6-14) Blood Urea Nitrogen 19 mg/dL (7-20) Creatinine 3.4 mg/dL (0.6-1.0) Estimated GFR (Cockcroft-Gault) 17.0 Glucose Level 126 mg/dL (70-99) Calcium Level 9.3 mg/dL (8.5-10.1) Phosphorus Level 1.4 mg/dL (2.6-4.7) Magnesium Level 2.0 mg/dL (1.8-2.4) Albumin 2.3 g/dL (3.4-5.0) Glucose (Fingerstick) 129 mg/dL (70-99) 115 mg/dL (70-99) 134 mg/dL (70-99) Test 01/12/18 20:43 01/13/18 05:45 01/13/18 07:52 01/13/18 14:17 Glucose (Fingerstick) 152 mg/dL (70-99) 205 mg/dL (70-99) 151 mg/dL (70-99) White Blood Count 29.8 x10^3/uL (4.0-11.0) Red Blood Count 2.57 x10^6/uL (3.50-5.40) Hemoglobin 7.3 g/dL (12.0-15.5) Hematocrit 22.3 % (36.0-47.0) Mean Corpuscular Volume 87 fL (79-100) Mean Corpuscular Hemoglobin 29 pg (25-35) Mean Corpuscular Hemoglobin Concent 33 g/dL (31-37) Red Cell Distribution Width 18.6 % (11.5-14.5) Platelet Count 141 x10^3/uL (140-400) Neutrophils (%) (Auto) 93 % (31-73) Lymphocytes (%) (Auto) 4 % (24-48) Monocytes (%) (Auto) 3 % (0-9) Eosinophils (%) (Auto) 0 % (0-3) Basophils (%) (Auto) 0 % (0-3) Neutrophils # (Auto) 27.8 x10^3uL (1.8-7.7) Lymphocytes # (Auto) 1.1 x10^3/uL (1.0-4.8) Monocytes # (Auto) 0.8 x10^3/uL (0.0-1.1) Eosinophils # (Auto) 0.0 x10^3/uL (0.0-0.7) Basophils # (Auto) 0.0 x10^3/uL (0.0-0.2) Sodium Level 136 mmol/L (136-145) Potassium Level 4.6 mmol/L (3.5-5.1) Chloride Level 98 mmol/L (98-107) Carbon Dioxide Level 27 mmol/L (21-32) Anion Gap 11 (6-14) Blood Urea Nitrogen 35 mg/dL (7-20) Creatinine 4.6 mg/dL (0.6-1.0) Estimated GFR (Cockcroft-Gault) 12.0 Glucose Level 188 mg/dL (70-99) Calcium Level 9.9 mg/dL (8.5-10.1) Phosphorus Level 2.3 mg/dL (2.6-4.7) Magnesium Level 2.2 mg/dL (1.8-2.4) Albumin 2.4 g/dL (3.4-5.0) Test 01/13/18 17:24 01/13/18 21:48 01/14/18 05:45 Glucose (Fingerstick) 208 mg/dL (70-99) 196 mg/dL (70-99) White Blood Count 22.3 x10^3/uL (4.0-11.0) Red Blood Count 2.51 x10^6/uL (3.50-5.40) Hemoglobin 7.2 g/dL (12.0-15.5) Hematocrit 21.4 % (36.0-47.0) Mean Corpuscular Volume 85 fL (79-100) Mean Corpuscular Hemoglobin 29 pg (25-35) Mean Corpuscular Hemoglobin Concent 33 g/dL (31-37) Red Cell Distribution Width 18.8 % (11.5-14.5) Platelet Count 151 x10^3/uL (140-400) Neutrophils (%) (Auto) 90 % (31-73) Lymphocytes (%) (Auto) 7 % (24-48) Monocytes (%) (Auto) 3 % (0-9) Eosinophils (%) (Auto) 0 % (0-3) Basophils (%) (Auto) 0 % (0-3) Neutrophils # (Auto) 20.1 x10^3uL (1.8-7.7) Lymphocytes # (Auto) 1.5 x10^3/uL (1.0-4.8) Monocytes # (Auto) 0.7 x10^3/uL (0.0-1.1) Eosinophils # (Auto) 0.0 x10^3/uL (0.0-0.7) Basophils # (Auto) 0.0 x10^3/uL (0.0-0.2) Sodium Level 136 mmol/L (136-145) Potassium Level 3.6 mmol/L (3.5-5.1) Chloride Level 97 mmol/L (98-107) Carbon Dioxide Level 31 mmol/L (21-32) Anion Gap 8 (6-14) Blood Urea Nitrogen 25 mg/dL (7-20) Creatinine 3.0 mg/dL (0.6-1.0) Estimated GFR (Cockcroft-Gault) 19.6 Glucose Level 183 mg/dL (70-99) Calcium Level 9.3 mg/dL (8.5-10.1) Phosphorus Level 1.6 mg/dL (2.6-4.7) Magnesium Level 2.1 mg/dL (1.8-2.4) Albumin 2.4 g/dL (3.4-5.0) Laboratory Tests Test 01/13/18 14:17 01/13/18 17:24 01/13/18 21:48 01/14/18 05:45 Glucose (Fingerstick) 151 mg/dL (70-99) 208 mg/dL (70-99) 196 mg/dL (70-99) White Blood Count 22.3 x10^3/uL (4.0-11.0) Red Blood Count 2.51 x10^6/uL (3.50-5.40) Hemoglobin 7.2 g/dL (12.0-15.5) Hematocrit 21.4 % (36.0-47.0) Mean Corpuscular Volume 85 fL (79-100) Mean Corpuscular Hemoglobin 29 pg (25-35) Mean Corpuscular Hemoglobin Concent 33 g/dL (31-37) Red Cell Distribution Width 18.8 % (11.5-14.5) Platelet Count 151 x10^3/uL (140-400) Neutrophils (%) (Auto) 90 % (31-73) Lymphocytes (%) (Auto) 7 % (24-48) Monocytes (%) (Auto) 3 % (0-9) Eosinophils (%) (Auto) 0 % (0-3) Basophils (%) (Auto) 0 % (0-3) Neutrophils # (Auto) 20.1 x10^3uL (1.8-7.7) Lymphocytes # (Auto) 1.5 x10^3/uL (1.0-4.8) Monocytes # (Auto) 0.7 x10^3/uL (0.0-1.1) Eosinophils # (Auto) 0.0 x10^3/uL (0.0-0.7) Basophils # (Auto) 0.0 x10^3/uL (0.0-0.2) Sodium Level 136 mmol/L (136-145) Potassium Level 3.6 mmol/L (3.5-5.1) Chloride Level 97 mmol/L (98-107) Carbon Dioxide Level 31 mmol/L (21-32) Anion Gap 8 (6-14) Blood Urea Nitrogen 25 mg/dL (7-20) Creatinine 3.0 mg/dL (0.6-1.0) Estimated GFR (Cockcroft-Gault) 19.6 Glucose Level 183 mg/dL (70-99) Calcium Level 9.3 mg/dL (8.5-10.1) Phosphorus Level 1.6 mg/dL (2.6-4.7) Magnesium Level 2.1 mg/dL (1.8-2.4) Albumin 2.4 g/dL (3.4-5.0) Meds Current Medications Linezolid (Zyvox) 600 mg BID PO Last administered on 01/13/18at 19:36; Start 01/13 at 10:30 Meropenem 500 mg/ Sodium Chloride 50 ml @ 100 mls/hr DAILY IV Last administered on 01/13/18at 15:10; Start 01/13/18 at 10:30 Assessment Assessment FINAL DIAGNOSIS: 1. Chest pain - chest wall MS pain not costochondritis- sternal incision pain 2. LLL pneumonia HCFA gram - gram + with sepsis POA 3. sepsis - LLL pneumonia/ probable infected pressure wound sacral/buttocks 4. metabolic encephalopathy 5. acute on chronic anemia ESRD 6. Chest pain with h/o CABG 11/2017 8. Pressure wound coccyx sacrum with black eschar 9. abnormal troponin with h/o NSTEMI 10. End-stage renal disease, on hemodialysis TTS 11. 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 12. History of hyperparathyroidism secondary to end-stage renal disease. 13. Hyperlipidemia. 14. Severe pulmonary hypertension. 15. Asthma. 16. Gastroesophageal reflux disease. 17. CAD with NE unknown age and + small ischemia per MPI medical management with recent CABG 18. Negative hepatitis C. 19. moderate severe depression recurrent 20. DM II insulin gastroparesis, ESRD 21. severe PCL malnutrition with decreased po intake 22. moderate weakness and debility 23, depression 24. secondary hyperparathyroidism 25. post op CABG L leg paralysis post op 26. Diastolic congestive heart failure with preserved ejection fraction not acute 27. severe PCL malnutrition with underlying moderate PCL malnutrition 28. h/o recent code blue 29. infected sacral ulcer POA s/p debridement to muscle 01/12/18 PLAN: chest pain cardiology following Admit troponin 0.046 leukocytosis/ fever/ question infiltrate LLL Chronic LLL effusion pulmonary following - no further thoracentesis at this time CT chest w/o contrast pending fever/leukocytosis Admit WBC 21.7 today 20.9 ESR 35 CRP 20.9 Pre Calcitonin 2.05 ID following Vancomycin zosyn Prelim BC 1 or 7 + for gram + cocci Anemia/thrombocytopenia Admit Hgb 7.3 decreased to 6.4 and today 7.3 post 1U PRC thrombocytopenia Admit 215 today 123 - monitor - r/t infectious process/ antibiotics Severe depression Zoloft continues pysch consult had been ordered [facility] ESRD hemodialysis continued in patient DVT/GI prophylaxis SCD/JEN PPI Screen LTAC 01/11/18 chest wall pain - improved with Voltaren Gel - CT chest w/o noted mild edema identified in the subcutaneous region of the chest similar to prior exam. pressure wound - wound care note reviewed - will obtain surgical consult to eval for debridement - local wound care started sepsis pneumonia - lab pending - Tm 100.7F last 24 hours - ID following - on zosyn and Vanco abnormal CXR -CT chest 01/10- Left lower lobe lung consolidation with air bronchograms identified likely pneumonia or postobstructive atelectasis. ESRD - HD Admit wt 191# today 185.56# - DM II - BS 81-89 Await [facility] screen Labs pending For further plan of care, please refer to the orders. 01/12/18 wound - to OR today for debridement. continue IV antibiotics sepsis - pneumonia/probable infected pressure wound - Zosyn Vanco continue - fever improved. DM - BS 80-169 encephalopathy - improving slowly Pain control - will begin fentanyl 50mcg q4hr prn pain and continue lortab q8hr prn ESRD - dialysis continues wt. today 179.56 PICC ordered 01/11- nephrology concerned regarding length of need - ID contacted by staff - change order to central line - anesthesia contacted - will insert in surgery. For more details regarding further plans, please refer to the orders. 01/13/18 wound - IV antibiotics zosyn/vanc and micafungin added 01/12. Procedure 01/13/[address] Coulter: Excisional debridement of skin, subcutaneous tissue, muscle 5 cm sacral ulcer with necrotic tissue extending down through skin, subcutaneous tissue to muscle, no bony involvement sepsis - pneumonia/probable infected pressure wound - Zosyn Vanco continue - micafungin added 01/12 DM - 115-205 Anemia - Hgb 7.3 thrombocytopenia r/t med/infection - Admit Plt 215 -lowest 01/12 126 and today improved to 161 encephalopathy - improving slowly Pain control - will begin fentanyl 50mcg q4hr prn pain and continue lortab q8hr prn - less moaning ESRD - dialysis continues wt. today 185.06 [facility] Screen in process. For more details regarding further plans, please refer to the orders. 01/13 LLL pneumonia/pleural effusion - CXR 01/12-worsening infiltrate, effusion wounds - wound care, now with wound vac sepsis - IV Zosyn/Vanco changed to meropenem/zyvox and micafungin continued. leukocytosis - WBC 22.3 ( steroid during surgery) anemia - Hgb 7.2 DM - 151-208 metabolic encephalopathy with underlying severe depression severe depression - currently Zoloft which has been given chronically - consider changing to Wellbutrin - defer to Dr. Ng [facility] denied admission to LTAC - SW requesting peer to peer between [facility] MD and Dr. Ng Refer to Dr. Bright recommendations For more details regarding further plans, please refer to the orders. Plan Plan For more details regarding further plans, please refer to the orders. Nutrition Consultation Dietary Evaluation: Recommendations by RD: Protein supplementation Comments: REC Glucerna TID Will add ADA diet restriction to current renal diet per pmhx Continue w/tiffani-kapil Expected Outcomes/Goals: PO intake to meet >75% est needs Malnutrition Findings: Food and Nutrition Intake (Mod: <75% est energy req 7days Weight Status: Overweight GAURAV NG MD 01/14/18 0954: IM PROGRESS NOTES- Assessment Assessment continues moaning and remains anxious.Add Buspar. Prognosis is very poor. The patient was seen and examined by me. Chart reviewed and plan of care formulated. Discussed with, reviewed and agree with NEEDLE MOLDER's notes, plan of care and orders with modifications as necessary. For more details regarding further plans, please refer to the orders. RUT EDWARDS APRN Jan 14, 2018 08:23 GAURAV NG MD Jan 14, 2018 09:54
--- NOTE | 2018-01-14 08:32 | PDOC ---
Infectious Disease Note Subjective Subjective Tearful today Denies F/C/S/D/SOA/rash some backside pain today ROS ROS o/w neg Vital Sign Vital Signs Vital Signs Date Time Temp Pulse Resp B/P (MAP) Pulse Ox O2 Delivery O2 Flow Rate FiO2 01/14/18 07:00 98.4 64 16 122/47 (72) 97 Room Air 98.4 Physical Exam PHYSICAL EXAM GENERAL: NAD, alert and tearful HEENT: Normal conjunctivae. Oral mucosa is pink and dry. No thrush. NECK: No JVD LUNGS: Diminished aeration in the bases. Nonlabored. HEART: S1 and S2. ABDOMEN: Obese. Bowel sounds active. Soft, nontender. EXTREMITIES: 1-2+ edema in lower extremities bilaterally. No cyanosis. SKIN: Warm without generalized rash. Vac in place. Slightly on her right side. Chest wound with scab and open but clean area at superior aspect LUE, AV fistula unremarkable. RIJ - clean NEUROLOGIC: Alert and answering questions Labs Lab Laboratory Tests Test 01/13/18 14:17 01/13/18 17:24 01/13/18 21:48 01/14/18 05:45 Glucose (Fingerstick) 151 mg/dL (70-99) 208 mg/dL (70-99) 196 mg/dL (70-99) White Blood Count 22.3 x10^3/uL (4.0-11.0) Red Blood Count 2.51 x10^6/uL (3.50-5.40) Hemoglobin 7.2 g/dL (12.0-15.5) Hematocrit 21.4 % (36.0-47.0) Mean Corpuscular Volume 85 fL (79-100) Mean Corpuscular Hemoglobin 29 pg (25-35) Mean Corpuscular Hemoglobin Concent 33 g/dL (31-37) Red Cell Distribution Width 18.8 % (11.5-14.5) Platelet Count 151 x10^3/uL (140-400) Neutrophils (%) (Auto) 90 % (31-73) Lymphocytes (%) (Auto) 7 % (24-48) Monocytes (%) (Auto) 3 % (0-9) Eosinophils (%) (Auto) 0 % (0-3) Basophils (%) (Auto) 0 % (0-3) Neutrophils # (Auto) 20.1 x10^3uL (1.8-7.7) Lymphocytes # (Auto) 1.5 x10^3/uL (1.0-4.8) Monocytes # (Auto) 0.7 x10^3/uL (0.0-1.1) Eosinophils # (Auto) 0.0 x10^3/uL (0.0-0.7) Basophils # (Auto) 0.0 x10^3/uL (0.0-0.2) Sodium Level 136 mmol/L (136-145) Potassium Level 3.6 mmol/L (3.5-5.1) Chloride Level 97 mmol/L (98-107) Carbon Dioxide Level 31 mmol/L (21-32) Anion Gap 8 (6-14) Blood Urea Nitrogen 25 mg/dL (7-20) Creatinine 3.0 mg/dL (0.6-1.0) Estimated GFR (Cockcroft-Gault) 19.6 Glucose Level 183 mg/dL (70-99) Calcium Level 9.3 mg/dL (8.5-10.1) Phosphorus Level 1.6 mg/dL (2.6-4.7) Magnesium Level 2.1 mg/dL (1.8-2.4) Albumin 2.4 g/dL (3.4-5.0) Micro CT Chest 01/10 IMPRESSION: 1. Left lower lobe lung consolidation with air bronchograms identified likely pneumonia or postobstructive atelectasis. Follow-up to resolution. Mild to moderate left pleural effusion has mildly decreased compared to prior exam. 2. Moderate cardiomegaly with coronary artery calcifications. Microbiology 01/08/18 Blood Culture - Final, Complete Objective Assessment 1. Leukocytosis - stable but also s/p PRBCs. Now post op and s/p dexamethasone 01/12 - better 2. Fever - improved. 3. Pressure wounds of sacral and left ischial areas, present on admission - s/ p I and D 01/12 - no bone 4. H/o Left pleural effusion now ? pneumonia on CT. 5. Acute anemia. 6. Chronic kidney disease, on hemodialysis via arteriovenous fistula. 7. Status post coronary artery bypass grafting in November [address] [facility]. 8. Chronic heart failure. 9. Diabetes mellitus, type 2. 10. History of cerebrovascular accident with left-sided weakness and is chair bound. 11. 06/13 bottles + 8/ Severe depression Plan Plan of Care Cont Meropenem/Zyvox/ micafungin today f/u am labs and BC with 06/13 positive Wound care eval of sternal wound Local wound care and offloading Would benefit from LTAC ability to care for wounds/administer IV abx but also Psych availability given her severe depression D/w nursing. D/w Dr. Coulter and GARFIELD Rincon MD Jan 14, 2018 08:32
--- NOTE | 2018-01-14 08:38 | PDOC ---
SURGICAL PROGRESS NOTE Subjective Pt awake, but moans, which appears to be baseline Vital Signs Vital Signs Date Time Temp Pulse Resp B/P (MAP) Pulse Ox O2 Delivery O2 Flow Rate FiO2 01/14/18 07:00 98.4 64 16 122/47 (72) 97 Room Air 98.4 I&O Intake and Output 01/14/18 07:00 Intake Total 270 ml Balance 270 ml Intake Oral 270 ml General: Alert Skin: Other (wound vac in place) Labs Laboratory Tests Test 01/12/18 11:24 01/12/18 17:21 01/12/18 17:52 01/12/18 20:43 Glucose (Fingerstick) 129 mg/dL (70-99) 115 mg/dL (70-99) 134 mg/dL (70-99) 152 mg/dL (70-99) Test 01/13/18 05:45 01/13/18 07:52 01/13/18 14:17 01/13/18 17:24 White Blood Count 29.8 x10^3/uL (4.0-11.0) Red Blood Count 2.57 x10^6/uL (3.50-5.40) Hemoglobin 7.3 g/dL (12.0-15.5) Hematocrit 22.3 % (36.0-47.0) Mean Corpuscular Volume 87 fL (79-100) Mean Corpuscular Hemoglobin 29 pg (25-35) Mean Corpuscular Hemoglobin Concent 33 g/dL (31-37) Red Cell Distribution Width 18.6 % (11.5-14.5) Platelet Count 141 x10^3/uL (140-400) Neutrophils (%) (Auto) 93 % (31-73) Lymphocytes (%) (Auto) 4 % (24-48) Monocytes (%) (Auto) 3 % (0-9) Eosinophils (%) (Auto) 0 % (0-3) Basophils (%) (Auto) 0 % (0-3) Neutrophils # (Auto) 27.8 x10^3uL (1.8-7.7) Lymphocytes # (Auto) 1.1 x10^3/uL (1.0-4.8) Monocytes # (Auto) 0.8 x10^3/uL (0.0-1.1) Eosinophils # (Auto) 0.0 x10^3/uL (0.0-0.7) Basophils # (Auto) 0.0 x10^3/uL (0.0-0.2) Sodium Level 136 mmol/L (136-145) Potassium Level 4.6 mmol/L (3.5-5.1) Chloride Level 98 mmol/L (98-107) Carbon Dioxide Level 27 mmol/L (21-32) Anion Gap 11 (6-14) Blood Urea Nitrogen 35 mg/dL (7-20) Creatinine 4.6 mg/dL (0.6-1.0) Estimated GFR (Cockcroft-Gault) 12.0 Glucose Level 188 mg/dL (70-99) Calcium Level 9.9 mg/dL (8.5-10.1) Phosphorus Level 2.3 mg/dL (2.6-4.7) Magnesium Level 2.2 mg/dL (1.8-2.4) Albumin 2.4 g/dL (3.4-5.0) Glucose (Fingerstick) 205 mg/dL (70-99) 151 mg/dL (70-99) 208 mg/dL (70-99) Test 01/13/18 21:48 01/14/18 05:45 Glucose (Fingerstick) 196 mg/dL (70-99) White Blood Count 22.3 x10^3/uL (4.0-11.0) Red Blood Count 2.51 x10^6/uL (3.50-5.40) Hemoglobin 7.2 g/dL (12.0-15.5) Hematocrit 21.4 % (36.0-47.0) Mean Corpuscular Volume 85 fL (79-100) Mean Corpuscular Hemoglobin 29 pg (25-35) Mean Corpuscular Hemoglobin Concent 33 g/dL (31-37) Red Cell Distribution Width 18.8 % (11.5-14.5) Platelet Count 151 x10^3/uL (140-400) Neutrophils (%) (Auto) 90 % (31-73) Lymphocytes (%) (Auto) 7 % (24-48) Monocytes (%) (Auto) 3 % (0-9) Eosinophils (%) (Auto) 0 % (0-3) Basophils (%) (Auto) 0 % (0-3) Neutrophils # (Auto) 20.1 x10^3uL (1.8-7.7) Lymphocytes # (Auto) 1.5 x10^3/uL (1.0-4.8) Monocytes # (Auto) 0.7 x10^3/uL (0.0-1.1) Eosinophils # (Auto) 0.0 x10^3/uL (0.0-0.7) Basophils # (Auto) 0.0 x10^3/uL (0.0-0.2) Sodium Level 136 mmol/L (136-145) Potassium Level 3.6 mmol/L (3.5-5.1) Chloride Level 97 mmol/L (98-107) Carbon Dioxide Level 31 mmol/L (21-32) Anion Gap 8 (6-14) Blood Urea Nitrogen 25 mg/dL (7-20) Creatinine 3.0 mg/dL (0.6-1.0) Estimated GFR (Cockcroft-Gault) 19.6 Glucose Level 183 mg/dL (70-99) Calcium Level 9.3 mg/dL (8.5-10.1) Phosphorus Level 1.6 mg/dL (2.6-4.7) Magnesium Level 2.1 mg/dL (1.8-2.4) Albumin 2.4 g/dL (3.4-5.0) Laboratory Tests Test 01/13/18 14:17 01/13/18 17:24 01/13/18 21:48 01/14/18 05:45 Glucose (Fingerstick) 151 mg/dL (70-99) 208 mg/dL (70-99) 196 mg/dL (70-99) White Blood Count 22.3 x10^3/uL (4.0-11.0) Red Blood Count 2.51 x10^6/uL (3.50-5.40) Hemoglobin 7.2 g/dL (12.0-15.5) Hematocrit 21.4 % (36.0-47.0) Mean Corpuscular Volume 85 fL (79-100) Mean Corpuscular Hemoglobin 29 pg (25-35) Mean Corpuscular Hemoglobin Concent 33 g/dL (31-37) Red Cell Distribution Width 18.8 % (11.5-14.5) Platelet Count 151 x10^3/uL (140-400) Neutrophils (%) (Auto) 90 % (31-73) Lymphocytes (%) (Auto) 7 % (24-48) Monocytes (%) (Auto) 3 % (0-9) Eosinophils (%) (Auto) 0 % (0-3) Basophils (%) (Auto) 0 % (0-3) Neutrophils # (Auto) 20.1 x10^3uL (1.8-7.7) Lymphocytes # (Auto) 1.5 x10^3/uL (1.0-4.8) Monocytes # (Auto) 0.7 x10^3/uL (0.0-1.1) Eosinophils # (Auto) 0.0 x10^3/uL (0.0-0.7) Basophils # (Auto) 0.0 x10^3/uL (0.0-0.2) Sodium Level 136 mmol/L (136-145) Potassium Level 3.6 mmol/L (3.5-5.1) Chloride Level 97 mmol/L (98-107) Carbon Dioxide Level 31 mmol/L (21-32) Anion Gap 8 (6-14) Blood Urea Nitrogen 25 mg/dL (7-20) Creatinine 3.0 mg/dL (0.6-1.0) Estimated GFR (Cockcroft-Gault) 19.6 Glucose Level 183 mg/dL (70-99) Calcium Level 9.3 mg/dL (8.5-10.1) Phosphorus Level 1.6 mg/dL (2.6-4.7) Magnesium Level 2.1 mg/dL (1.8-2.4) Albumin 2.4 g/dL (3.4-5.0) Problem List Problems Medical Problems: (1) End stage renal disease Status: Acute Assessment/Plan s/p debridement cont wound care with vac will sign off, but please call for questions BRIT CHANEY MD Jan 14, 2018 08:38
[2018-01-14] MEDS: LOSARTAN POTASSIUM 50 MG TABLET. PO SCH (09:00)
[2018-01-14] MEDS: POLYETHYLENE GLYCOL 3350 17 GM PACKET. PO SCH (09:00)
[2018-01-14] MEDS: DICLOFENAC SODIUM 1% TOPICAL GEL 100GM TUBE. TP SCH ×3 (09:00→20:38)
[2018-01-14] MEDS: FOLIC/VIT B COMP W-C (RENAL) TABLET. PO SCH (09:00)
[2018-01-14] MEDS: CHOLECALCIFEROL (VITAMIN D3) 1,000 UNIT TABLET PO SCH (09:00)
[2018-01-14] MEDS: MEROPENEM 500 MG in IV NORMAL SALINE 50ML 50 ML IV SCH (09:12)
[2018-01-14] MEDS: MICAFUNGIN 100 MG in IV DEXTROSE 5% 100ML 100 ML IV SCH (09:14)
[2018-01-14] MEDS: SERTRALINE 50 MG TABLET. PO SCH (09:36)
[2018-01-14] MEDS: LACTOBACILLUS RHAMNOSUS GG 1 CAPSULE. PO SCH ×2 (09:36→20:32)
[2018-01-14] MEDS: LINEZOLID 600 MG TABLET PO SCH ×2 (09:37→20:32)
[2018-01-14] MEDS: CARVEDILOL 12.5 MG TABLET. PO SCH ×2 (09:37→17:55)
[2018-01-14] MEDS: ACETAMINOPHEN 500 MG TABLET PO SCH ×3 (09:37→20:32)
[2018-01-14] MEDS: PANTOPRAZOLE 40 MG TABLET.DR. PO SCH (09:37)
[2018-01-14] MEDS: MINOXIDIL 2.5 MG TABLET PO SCH ×2 (09:38→20:33)
[2018-01-14] MEDS: ISOSORBIDE MONONITRATE ER 30 MG TAB.ER.24H PO SCH (09:39)
--- NOTE | 2018-01-14 10:08 | PDOC ---
PULMONARY PROGRESS NOTES Subjective no soa Vitals Vital Signs Date Time Temp Pulse Resp B/P (MAP) Pulse Ox O2 Delivery O2 Flow Rate FiO2 01/14/18 09:39 64 122/47 01/14/18 07:00 98.4 16 97 Room Air 98.4 General: Alert, No acute distress HEENT: Other Lungs: Other (decreased breath sounds bases) Cardiovascular: S1, S2 Abdomen: Soft, Non-tender Neuro Exam: Alert Extremities: No Edema Skin: Warm Labs Laboratory Tests Test 01/12/18 11:24 01/12/18 17:21 01/12/18 17:52 01/12/18 20:43 Glucose (Fingerstick) 129 mg/dL (70-99) 115 mg/dL (70-99) 134 mg/dL (70-99) 152 mg/dL (70-99) Test 01/13/18 05:45 01/13/18 07:52 01/13/18 14:17 01/13/18 17:24 White Blood Count 29.8 x10^3/uL (4.0-11.0) Red Blood Count 2.57 x10^6/uL (3.50-5.40) Hemoglobin 7.3 g/dL (12.0-15.5) Hematocrit 22.3 % (36.0-47.0) Mean Corpuscular Volume 87 fL (79-100) Mean Corpuscular Hemoglobin 29 pg (25-35) Mean Corpuscular Hemoglobin Concent 33 g/dL (31-37) Red Cell Distribution Width 18.6 % (11.5-14.5) Platelet Count 141 x10^3/uL (140-400) Neutrophils (%) (Auto) 93 % (31-73) Lymphocytes (%) (Auto) 4 % (24-48) Monocytes (%) (Auto) 3 % (0-9) Eosinophils (%) (Auto) 0 % (0-3) Basophils (%) (Auto) 0 % (0-3) Neutrophils # (Auto) 27.8 x10^3uL (1.8-7.7) Lymphocytes # (Auto) 1.1 x10^3/uL (1.0-4.8) Monocytes # (Auto) 0.8 x10^3/uL (0.0-1.1) Eosinophils # (Auto) 0.0 x10^3/uL (0.0-0.7) Basophils # (Auto) 0.0 x10^3/uL (0.0-0.2) Sodium Level 136 mmol/L (136-145) Potassium Level 4.6 mmol/L (3.5-5.1) Chloride Level 98 mmol/L (98-107) Carbon Dioxide Level 27 mmol/L (21-32) Anion Gap 11 (6-14) Blood Urea Nitrogen 35 mg/dL (7-20) Creatinine 4.6 mg/dL (0.6-1.0) Estimated GFR (Cockcroft-Gault) 12.0 Glucose Level 188 mg/dL (70-99) Calcium Level 9.9 mg/dL (8.5-10.1) Phosphorus Level 2.3 mg/dL (2.6-4.7) Magnesium Level 2.2 mg/dL (1.8-2.4) Albumin 2.4 g/dL (3.4-5.0) Glucose (Fingerstick) 205 mg/dL (70-99) 151 mg/dL (70-99) 208 mg/dL (70-99) Test 01/13/18 21:48 01/14/18 05:45 01/14/18 08:45 Glucose (Fingerstick) 196 mg/dL (70-99) 164 mg/dL (70-99) White Blood Count 22.3 x10^3/uL (4.0-11.0) Red Blood Count 2.51 x10^6/uL (3.50-5.40) Hemoglobin 7.2 g/dL (12.0-15.5) Hematocrit 21.4 % (36.0-47.0) Mean Corpuscular Volume 85 fL (79-100) Mean Corpuscular Hemoglobin 29 pg (25-35) Mean Corpuscular Hemoglobin Concent 33 g/dL (31-37) Red Cell Distribution Width 18.8 % (11.5-14.5) Platelet Count 151 x10^3/uL (140-400) Neutrophils (%) (Auto) 90 % (31-73) Lymphocytes (%) (Auto) 7 % (24-48) Monocytes (%) (Auto) 3 % (0-9) Eosinophils (%) (Auto) 0 % (0-3) Basophils (%) (Auto) 0 % (0-3) Neutrophils # (Auto) 20.1 x10^3uL (1.8-7.7) Lymphocytes # (Auto) 1.5 x10^3/uL (1.0-4.8) Monocytes # (Auto) 0.7 x10^3/uL (0.0-1.1) Eosinophils # (Auto) 0.0 x10^3/uL (0.0-0.7) Basophils # (Auto) 0.0 x10^3/uL (0.0-0.2) Sodium Level 136 mmol/L (136-145) Potassium Level 3.6 mmol/L (3.5-5.1) Chloride Level 97 mmol/L (98-107) Carbon Dioxide Level 31 mmol/L (21-32) Anion Gap 8 (6-14) Blood Urea Nitrogen 25 mg/dL (7-20) Creatinine 3.0 mg/dL (0.6-1.0) Estimated GFR (Cockcroft-Gault) 19.6 Glucose Level 183 mg/dL (70-99) Calcium Level 9.3 mg/dL (8.5-10.1) Phosphorus Level 1.6 mg/dL (2.6-4.7) Magnesium Level 2.1 mg/dL (1.8-2.4) Albumin 2.4 g/dL (3.4-5.0) Laboratory Tests Test 01/13/18 14:17 01/13/18 17:24 01/13/18 21:48 01/14/18 05:45 Glucose (Fingerstick) 151 mg/dL (70-99) 208 mg/dL (70-99) 196 mg/dL (70-99) White Blood Count 22.3 x10^3/uL (4.0-11.0) Red Blood Count 2.51 x10^6/uL (3.50-5.40) Hemoglobin 7.2 g/dL (12.0-15.5) Hematocrit 21.4 % (36.0-47.0) Mean Corpuscular Volume 85 fL (79-100) Mean Corpuscular Hemoglobin 29 pg (25-35) Mean Corpuscular Hemoglobin Concent 33 g/dL (31-37) Red Cell Distribution Width 18.8 % (11.5-14.5) Platelet Count 151 x10^3/uL (140-400) Neutrophils (%) (Auto) 90 % (31-73) Lymphocytes (%) (Auto) 7 % (24-48) Monocytes (%) (Auto) 3 % (0-9) Eosinophils (%) (Auto) 0 % (0-3) Basophils (%) (Auto) 0 % (0-3) Neutrophils # (Auto) 20.1 x10^3uL (1.8-7.7) Lymphocytes # (Auto) 1.5 x10^3/uL (1.0-4.8) Monocytes # (Auto) 0.7 x10^3/uL (0.0-1.1) Eosinophils # (Auto) 0.0 x10^3/uL (0.0-0.7) Basophils # (Auto) 0.0 x10^3/uL (0.0-0.2) Sodium Level 136 mmol/L (136-145) Potassium Level 3.6 mmol/L (3.5-5.1) Chloride Level 97 mmol/L (98-107) Carbon Dioxide Level 31 mmol/L (21-32) Anion Gap 8 (6-14) Blood Urea Nitrogen 25 mg/dL (7-20) Creatinine 3.0 mg/dL (0.6-1.0) Estimated GFR (Cockcroft-Gault) 19.6 Glucose Level 183 mg/dL (70-99) Calcium Level 9.3 mg/dL (8.5-10.1) Phosphorus Level 1.6 mg/dL (2.6-4.7) Magnesium Level 2.1 mg/dL (1.8-2.4) Albumin 2.4 g/dL (3.4-5.0) Test 01/14/18 08:45 Glucose (Fingerstick) 164 mg/dL (70-99) Medications Active Scripts Medications Dose Route/Sig Max Daily Dose Days Date Category Dose Instructions Vitamin D3 (Cholecalciferol (Vitamin D3)) 1,000 Unit Tablet 1 Tab PO DAILY 12/28/17 Rx [Calcium Acetate] 667 MG Capsule 1,334 Mg PO TIDWMEALS 12/28/17 Rx Mapap (Acetaminophen) 500 Mg Tablet 1,000 Mg PO TID 12/28/17 Rx Carvedilol 12.5 Mg Tablet 12.5 Mg PO BIDWMEALS 12/28/17 Rx Minoxidil 2.5 Mg Tablet 2.5 Mg PO BID 07/19/17 Rx Isosorbide Mononitrate Er (Isosorbide Mononitrate) 30 Mg Tab.er.24h 120 Mg PO DAILY 07/19/17 Rx Montelukast Sodium Tablet (Montelukast Sodium) 10 Mg Tablet 10 Mg PO QHS 05/07/17 Rx Polyethylene Glycol 3350 2,500 Gm Powder 17 Gm PO DAILY 04/09/17 Rx Nitrostat (Nitroglycerin) 0.4 Mg Tab.subl 0.4 Mg SL PRN Q5MIN PRN 12/30/16 Reported Plavix (Clopidogrel Bisulfate) 75 Mg Tablet 1 Tab PO DAILY 12/30/16 Reported Novolog Flexpen (Insulin Aspart) 100 Unit/1 Ml Insuln.pen 0 Units SQ TIDAC 11/26/16 Rx Take sub q tid ac: BS 151-200=2 unit, 201-250=3 unit, [id number], BS 301-350=6 unit, BS 351-400 =8 unit. BS>401 call MD Renetta Busch 10,000 Units Capsule (Lipase/Protease/Amylase) 1 Each Capsule. 2 Cap PO TIDWMEALS 11/26/16 Rx TAke 2 cap tid with meals Nephro-Donny Tablet (Folic Acid/Vitamin B Comp W-C) 0.8 Mg Tablet 1 Tab PO DAILY 07/07/16 Rx Benadryl (Diphenhydramine Hcl) 25 Mg Capsule 25 Mg PO PRN Q6HRS PRN 07/07/16 Rx Zoloft (Sertraline Hcl) 100 Mg Tablet 1 Tab PO DAILY 07/01/16 Reported Pantoprazole Sodium 40 Mg Tablet. 1 Tab PO DAILY 07/01/16 Reported Losartan Potassium 100 Mg Tablet 100 Mg PO DAILY 01/14/16 Reported Aspir 81 (Aspirin) 81 Mg Tablet. 81 Mg PO DAILY 01/14/16 Reported Impression . 1. Abnormal chest x-ray revealed chronic left effusion. The patient is asymptomatic. repeat ct chest 01/10 reviewed/ Improved left effusion/atelectasis. clinically less likely pneumonia 2. End-stage renal disease, on hemodialysis. 3. Secondary pulmonary hypertension. 4. Gastroesophageal reflux, status post release of celiac artery and aorto-celiac bypass with graft. 5. Hepatitis C. 6. Type 2 diabetes. 7. Chronic heart failure. 8. Ascites. 9. Fever improved Plan . 1. During the patient's last admission, she underwent thoracentesis. The pleural fluid was compatible with a transudative effusion. The patient is currently not symptomatic. effusion 8/6 is smaller then before. Will not need thoracentesis unless fever re-occurs. 2. Continue other meds per PCP. 3. Abx per ID 4. No further pulmonary rec. will sign off RODRIGO PENN MD Jan 14, 2018 10:08
[2018-01-14 11:00] VITALS: BP 116/47
--- NOTE | 2018-01-14 12:23 | PDOC ---
SUBJECTIVE ROS no new concerns OBJECTIVE Vital Signs Vital Signs Date Time Temp Pulse Resp B/P (MAP) Pulse Ox O2 Delivery O2 Flow Rate FiO2 01/14/18 11:00 98.4 69 18 116/47 (70) 97 Room Air 98.4 I & 0 Intake and Output 01/14/18 07:00 Intake Total 270 ml Balance 270 ml Intake Oral 270 ml PHYSICAL EXAM Physical Exam GENERAL: NAD HEENT: OM moist NECK: No JVD LUNGS: Diminished aeration in the bases. Nonlabored. HEART: S1 and S2. ABDOMEN: Obese. Bowel sounds active. Soft, nontender. EXTREMITIES: 1-2+ edema in lower extremities bilaterally,L>R SKIN: No rash. wound, left ischial and large sacral wound LUE, AV fistula unremarkable. NEUROLOGIC: responds to questions minimally. DIAGNOSIS/ASSESSMENT Assessment & Plan ESRD/- On HD TTS Tomorrow as per schedule Status post coronary artery bypass grafting in November 2017 at [facility] [place] Hypophosphatemia- Held Phos Lo , Monitor. Will restart if Phos above goal Anemia- Acute on chronic Post PRBC On Aranesp Diabetes mellitus, type 2. History of cerebrovascular accident with left-sided weakness and is chair bound. 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 Meds Current Medications Medications (Trade) Dose Ordered Sig/Srinath Start Time Stop Time Status Last Admin Dose Admin Acetaminophen (Tylenol) 325 mg PRN Q6HRS PRN 01/10/18 09:15 Acetaminophen/ Hydrocodone Bitart (Lortab 7.5/325) 1 tab PRN Q8HRS PRN 01/10/18 09:45 01/14/18 04:23 1 TAB Albumin Human 200 ml @ 200 mls/hr 1X PRN PRN 01/13/18 07:00 01/13/18 12:59 DC Amylase/Lipase/ Protease (Zenpep 10,000) 2 cap TIDWMEALS 01/09/18 09:00 01/13/18 19:35 2 CAP Bupivacaine HCl/ Epinephrine Bitart (Marcaine-Epi 0.25%-1:[id number]) 50 ml STK-MED ONCE 01/12/18 15:19 01/12/18 16:20 DC 01/12/18 16:35 5 ML Buspirone HCl (Buspar) 5 mg TID 01/14/18 14:00 Calcium Acetate (Phoslo) 1,334 mg TIDWMEALS 01/09/18 09:00 01/10/18 15:33 DC 01/10/18 12:24 1,334 MG Carvedilol (Coreg) 12.5 mg BIDWMEALS 01/09/18 09:00 01/14/18 09:37 12.5 MG Darbepoetin Ty (Aranesp) 60 mcg WEEKLYHS 01/09/18 21:00 01/09/18 21:29 60 MCG Dexamethasone Sodium Phosphate (Decadron) 20 mg STK-MED ONCE 01/12/18 15:54 01/12/18 15:55 DC Diclofenac Sodium (Voltaren) 1 graciela TID 01/10/18 14:00 01/13/18 19:37 1 GRACIELA Diphenhydramine HCl (Benadryl) 25 mg 1X PRN PRN 01/10/18 14:30 01/11/18 14:29 DC Ephedrine Sulfate (Akovaz) 50 mg STK-MED ONCE 01/12/18 15:49 01/12/18 15:50 DC Fentanyl Citrate (Fentanyl 2ml Vial) 100 mcg STK-MED ONCE 01/12/18 15:18 01/12/18 15:20 DC Info (PHARMACY MONITORING -- do not chart) 1 each PRN DAILY PRN 01/13/18 07:00 UNV Insulin Human Lispro (HumaLOG) 0-5 UNITS TIDAC 01/09/18 11:30 01/13/18 19:45 3 UNITS Iohexol (Omnipaque 300 Mg/ml) 75 ml 1X ONCE 01/08/18 18:15 01/08/18 18:16 DC 01/08/18 19:35 75 ML Isosorbide Mononitrate (Imdur) 120 mg DAILY 01/09/18 09:00 01/14/18 09:39 120 MG Lactobacillus Rhamnosus (Culturelle) 1 cap BID 01/10/18 21:00 01/14/18 09:36 1 CAP Lidocaine HCl (Xylocaine-Mpf 1% Vial) 2 ml PRN 1X PRN 01/12/18 09:15 01/13/18 09:14 DC Linezolid (Zyvox) 600 mg BID 01/13/18 10:30 01/14/18 09:37 600 MG Lorazepam (Ativan) 1 mg PRN Q4HRS PRN 01/08/18 18:00 01/10/18 09:24 DC 01/09/18 21:30 1 MG Losartan Potassium (Cozaar) 100 mg DAILY 01/09/18 09:00 01/13/18 13:00 100 MG Magnesium Sulfate 50 ml @ 25 mls/hr PRN DAILY PRN 01/09/18 10:15 Meropenem 500 mg/ Sodium Chloride 50 ml @ 100 mls/hr DAILY 01/13/18 10:30 01/14/18 09:12 100 MLS/HR Micafungin Sodium 100 mg/Dextrose 100 ml @ 100 mls/hr Q24H 01/12/18 09:00 01/14/18 09:14 100 MLS/HR Minoxidil (Loniten) 2.5 mg BID 01/09/18 09:00 01/14/18 09:38 2.5 MG Montelukast Sodium (Singulair) 10 mg QHS 01/09/18 21:00 01/13/18 19:35 10 MG Morphine Sulfate (Morphine Sulfate) 2 mg PRN Q2HR PRN 01/08/18 16:00 01/09/18 15:59 DC 01/08/18 17:06 2 MG Nitroglycerin (Nitrostat) 0.4 mg PRN Q5MIN PRN 01/09/18 08:45 Non-Formulary Medication (Insulin Aspart (Novolog Flexpen)) TIDAC 01/09/18 11:30 UNV Ondansetron HCl (Zofran) 4 mg PRN Q6HRS PRN 01/12/18 09:15 01/13/18 09:14 DC Pantoprazole Sodium (Protonix) 40 mg DAILYAC 01/09/18 09:00 01/14/18 09:37 40 MG Phenylephrine HCl (PHENYLEPHRINE in 0.9% NACL PF) 1 mg STK-MED ONCE 01/12/18 15:44 01/12/18 15:46 DC Piperacillin Sod/ Tazobactam Sod (Zosyn Per Pharmacy) 1 each PRN DAILY PRN 01/09/18 11:15 Cancel Piperacillin Sod/ Tazobactam Sod 2.25 gm/Sodium Chloride 50 ml @ 100 mls/hr Q8HRS 01/09/18 12:00 01/13/18 10:06 DC 01/13/18 05:07 100 MLS/HR Polyethylene Glycol (miraLAX PACKET) 17 gm DAILY 01/09/18 09:00 01/13/18 13:30 17 GM Prochlorperazine Edisylate (Compazine) 10 mg STK-MED ONCE 01/12/18 14:40 01/12/18 14:41 DC Sertraline HCl (Zoloft) 100 mg DAILY 01/09/18 09:00 01/14/18 09:36 100 MG Sodium Chloride 1,000 ml @ 400 mls/hr Q2H30M PRN 01/13/18 06:54 01/13/18 18:53 DC Sodium Chloride (Normal Saline Flush) 3 ml QSHIFT PRN 01/12/18 16:45 Succinylcholine Chloride (Anectine) 200 mg STK-MED ONCE 01/12/18 15:19 01/12/18 15:20 DC Vancomycin HCl (Vanco Per Pharmacy) 1 each PRN DAILY PRN 01/08/18 15:30 01/13/18 10:06 DC 01/12/18 09:16 1 EACH Vancomycin HCl (Vancomycin Random Level) 1 each 1X ONCE 01/10/18 05:00 01/10/18 05:01 DC 01/10/18 05:00 1 EACH Vancomycin HCl 1.75 gm/Sodium Chloride 500 ml @ 250 mls/hr 1X ONCE 01/08/18 15:30 01/08/18 17:29 DC 01/08/18 15:39 250 MLS/HR Vancomycin HCl 500 mg/Sodium Chloride 100 ml @ 100 mls/hr QTUTHSA 01/11/18 16:00 01/13/18 10:06 DC 01/11/18 20:41 100 MLS/HR Vitamin B Complex/ Vitamin C (Anneliese-Donny) 1 tab DAILY 01/09/18 09:00 01/11/18 12:15 1 TAB Vitamin D (Vitamin D3) 1,000 unit DAILY 01/09/18 09:00 01/11/18 12:15 1,000 UNIT Lab Laboratory Tests Test 01/13/18 14:17 01/13/18 17:24 01/13/18 21:48 01/14/18 05:45 Glucose (Fingerstick) 151 mg/dL (70-99) 208 mg/dL (70-99) 196 mg/dL (70-99) White Blood Count 22.3 x10^3/uL (4.0-11.0) Red Blood Count 2.51 x10^6/uL (3.50-5.40) Hemoglobin 7.2 g/dL (12.0-15.5) Hematocrit 21.4 % (36.0-47.0) Mean Corpuscular Volume 85 fL (79-100) Mean Corpuscular Hemoglobin 29 pg (25-35) Mean Corpuscular Hemoglobin Concent 33 g/dL (31-37) Red Cell Distribution Width 18.8 % (11.5-14.5) Platelet Count 151 x10^3/uL (140-400) Neutrophils (%) (Auto) 90 % (31-73) Lymphocytes (%) (Auto) 7 % (24-48) Monocytes (%) (Auto) 3 % (0-9) Eosinophils (%) (Auto) 0 % (0-3) Basophils (%) (Auto) 0 % (0-3) Neutrophils # (Auto) 20.1 x10^3uL (1.8-7.7) Lymphocytes # (Auto) 1.5 x10^3/uL (1.0-4.8) Monocytes # (Auto) 0.7 x10^3/uL (0.0-1.1) Eosinophils # (Auto) 0.0 x10^3/uL (0.0-0.7) Basophils # (Auto) 0.0 x10^3/uL (0.0-0.2) Sodium Level 136 mmol/L (136-145) Potassium Level 3.6 mmol/L (3.5-5.1) Chloride Level 97 mmol/L (98-107) Carbon Dioxide Level 31 mmol/L (21-32) Anion Gap 8 (6-14) Blood Urea Nitrogen 25 mg/dL (7-20) Creatinine 3.0 mg/dL (0.6-1.0) Estimated GFR (Cockcroft-Gault) 19.6 Glucose Level 183 mg/dL (70-99) Calcium Level 9.3 mg/dL (8.5-10.1) Phosphorus Level 1.6 mg/dL (2.6-4.7) Magnesium Level 2.1 mg/dL (1.8-2.4) Albumin 2.4 g/dL (3.4-5.0) Test 01/14/18 08:45 01/14/18 12:01 Glucose (Fingerstick) 164 mg/dL (70-99) 175 mg/dL (70-99) Results All relevant outside records, renal labs, imaging studies, telemetry/EKG's were reviewed. RY ESCOBAR MD Jan 14, 2018 12:23
[2018-01-14] MEDS: busPIRone 5 MG TABLET. PO SCH ×2 (14:45→20:32)
[2018-01-14 15:00] VITALS: BP 130/62
[2018-01-14 19:10] VITALS: BP 132/62
[2018-01-14] MEDS: MONTELUKAST SODIUM 10 MG TABLET. PO SCH (20:32)
[2018-01-14] MEDS: ONDANSETRON PF 4 MG/2 ML VIAL. IV PRN (23:27)
[2018-01-14 23:37] VITALS: BP 187/80
[2018-01-15 03:30] VITALS: BP 184/74
[2018-01-15] MEDS: fentaNYL PF VIAL 100 MCG/2 ML VIAL IV PRN ×2 (05:58→19:39)
[2018-01-15 06:16] LABS: ALBUMIN 2.4 g/dL (3.4-5.0); CALCIUM 9.6 mg/dL (8.5-10.1); CREATININE 4.1 mg/dL (0.6-1.0); GFR 13.7; PHOSPHORUS 2.3 mg/dL (2.6-4.7)
[2018-01-15 06:24] LABS: BASO # 0.1 x10^3/uL (0.0-0.2); BASO % 0 % (0-3); EOS % 0 % (0-3); HEMATOCRIT 22.4 % (36.0-47.0); HEMOGLOBIN 7.5 g/dL (12.0-15.5); LYMPH # 0.5 x10^3/uL (1.0-4.8); LYMPH % 3 % (24-48); MEAN CORPUSCULAR HEMOGLOBIN 29 pg (25-35); MEAN CORPUSCULAR HGB CONC 33 g/dL (31-37); MEAN CORPUSCULAR VOLUME 86 fL (79-100); MONO # 0.4 x10^3/uL (0.0-1.1); MONO % 2 % (0-9); NEUT # 17.5 x10^3uL (1.8-7.7); NEUT % 94 % (31-73); PLATELET COUNT 150 x10^3/uL (140-400); RED BLOOD COUNT 2.62 x10^6/uL (3.50-5.40); WHITE BLOOD COUNT 18.6 x10^3/uL (4.0-11.0)
[2018-01-15 07:00] VITALS: BP 170/75
[2018-01-15] MEDS: INSULIN LISPRO 300 UNITS/3 ML INSULN.PEN. SQ SCH ×3 (07:30→16:30)
[2018-01-15] MEDS: ACETAMINOPHEN 500 MG TABLET PO SCH (08:16)
[2018-01-15] MEDS: HYDROcodone/APAP 7.5/325MG 1 TAB TABLET PO PRN (08:17)
[2018-01-15] MEDS: FOLIC/VIT B COMP W-C (RENAL) TABLET. PO SCH (08:17)
[2018-01-15] MEDS: PANTOPRAZOLE 40 MG TABLET.DR. PO SCH (08:17)
[2018-01-15] MEDS: LINEZOLID 600 MG TABLET PO SCH ×2 (08:18→21:03)
[2018-01-15] MEDS: LIPASE/PROTEAS/AMYLAS 10/32/42 CAPSULE.DR. PO SCH ×3 (08:19→17:11)
[2018-01-15] MEDS: MEROPENEM 500 MG in IV NORMAL SALINE 50ML 50 ML IV SCH (08:19)
[2018-01-15] MEDS: busPIRone 5 MG TABLET. PO SCH ×3 (08:19→21:03)
[2018-01-15] MEDS: MICAFUNGIN 100 MG in IV DEXTROSE 5% 100ML 100 ML IV SCH (08:19)
--- NOTE | 2018-01-15 08:27 | PDOC ---
Infectious Disease Note Subjective Subjective moaning and c/o Buttock pain Denies F/C/S/D/SOA/rash ROS ROS o/w neg Vital Sign Vital Signs Vital Signs Date Time Temp Pulse Resp B/P (MAP) Pulse Ox O2 Delivery O2 Flow Rate FiO2 01/15/18 08:17 98 Room Air 01/15/18 06:31 16 01/15/18 03:30 97.9 61 184/74 (110) 97.9 Physical Exam PHYSICAL EXAM GENERAL: NAD, alert and moaning but actually looks better HEENT: Normal conjunctivae. Oral mucosa is pink and dry. No thrush. NECK: No JVD LUNGS: Diminished aeration in the bases. Nonlabored. HEART: S1 and S2. ABDOMEN: Obese. Bowel sounds active. Soft, nontender. EXTREMITIES: 1-2+ edema in lower extremities bilaterally. No cyanosis. SKIN: Warm without generalized rash. Vac in place. Slightly on her right side. Chest wound with scab and open but clean area at superior aspect LUE, AV fistula unremarkable. RIJ - clean NEUROLOGIC: Alert and answering questions Labs Lab Laboratory Tests Test 01/14/18 08:45 01/14/18 12:01 01/14/18 17:26 01/14/18 20:39 Glucose (Fingerstick) 164 mg/dL (70-99) 175 mg/dL (70-99) 167 mg/dL (70-99) 165 mg/dL (70-99) Test 01/15/18 05:30 White Blood Count 18.6 x10^3/uL (4.0-11.0) Red Blood Count 2.62 x10^6/uL (3.50-5.40) Hemoglobin 7.5 g/dL (12.0-15.5) Hematocrit 22.4 % (36.0-47.0) Mean Corpuscular Volume 86 fL (79-100) Mean Corpuscular Hemoglobin 29 pg (25-35) Mean Corpuscular Hemoglobin Concent 33 g/dL (31-37) Red Cell Distribution Width 19.0 % (11.5-14.5) Platelet Count 150 x10^3/uL (140-400) Neutrophils (%) (Auto) 94 % (31-73) Lymphocytes (%) (Auto) 3 % (24-48) Monocytes (%) (Auto) 2 % (0-9) Eosinophils (%) (Auto) 0 % (0-3) Basophils (%) (Auto) 0 % (0-3) Neutrophils # (Auto) 17.5 x10^3uL (1.8-7.7) Lymphocytes # (Auto) 0.5 x10^3/uL (1.0-4.8) Monocytes # (Auto) 0.4 x10^3/uL (0.0-1.1) Eosinophils # (Auto) 0.0 x10^3/uL (0.0-0.7) Basophils # (Auto) 0.1 x10^3/uL (0.0-0.2) Sodium Level 135 mmol/L (136-145) Potassium Level 4.0 mmol/L (3.5-5.1) Chloride Level 98 mmol/L (98-107) Carbon Dioxide Level 29 mmol/L (21-32) Anion Gap 8 (6-14) Blood Urea Nitrogen 37 mg/dL (7-20) Creatinine 4.1 mg/dL (0.6-1.0) Estimated GFR (Cockcroft-Gault) 13.7 Glucose Level 188 mg/dL (70-99) Calcium Level 9.6 mg/dL (8.5-10.1) Phosphorus Level 2.3 mg/dL (2.6-4.7) Albumin 2.4 g/dL (3.4-5.0) Micro CT Chest 01/10 IMPRESSION: 1. Left lower lobe lung consolidation with air bronchograms identified likely pneumonia or postobstructive atelectasis. Follow-up to resolution. Mild to moderate left pleural effusion has mildly decreased compared to prior exam. 2. Moderate cardiomegaly with coronary artery calcifications. Microbiology 01/08/18 Blood Culture - Final, Complete Objective Assessment 1. Leukocytosis - stable but also s/p PRBCs. Now post op and s/p dexamethasone 01/12 - better 2. Fever - improved. 3. Pressure wounds of sacral and left ischial areas, present on admission - s/ p I and D 01/12 - no bone 4. H/o Left pleural effusion now ? pneumonia on CT. 5. Acute anemia. 6. Chronic kidney disease, on hemodialysis via arteriovenous fistula. 7. Status post coronary artery bypass grafting in November 2017 at [facility]. 8. Chronic heart failure. 9. Diabetes mellitus, type 2. 10. History of cerebrovascular accident with left-sided weakness and is chair bound. 11. 06/13 bottles + 8/4 Severe depression Plan Plan of Care Cont Meropenem/Zyvox/ micafungin today f/u am labs and BC with 06/13 positive Wound care eval of sternal wound Local wound care and offloading Would benefit from LTAC ability to care for wounds/administer IV abx but also Psych availability given her severe depression D/w nursing. GARFIELD CASTORENA MD Jan 15, 2018 08:27
[2018-01-15] MEDS ORDERED: IV NORMAL SALINE 1000ML BAG 1,000 ML IV PRN ×2 (08:34)
[2018-01-15] MEDS: ONDANSETRON PF 4 MG/2 ML VIAL. IV PRN ×2 (08:40→17:06)
[2018-01-15] MEDS ORDERED: DIALYSIS PATIENT. MC PRN ×2 (08:45)
[2018-01-15] MEDS ORDERED: LABETALOL 20 MG/4 ML DISP.SYRIN. IVP PRN (08:45)
[2018-01-15] MEDS: CHOLECALCIFEROL (VITAMIN D3) 1,000 UNIT TABLET PO SCH (09:00)
[2018-01-15] MEDS: LACTOBACILLUS RHAMNOSUS GG 1 CAPSULE. PO SCH ×2 (09:00→21:03)
[2018-01-15] MEDS: DICLOFENAC SODIUM 1% TOPICAL GEL 100GM TUBE. TP SCH ×3 (09:00→21:04)
[2018-01-15] MEDS: POLYETHYLENE GLYCOL 3350 17 GM PACKET. PO SCH (09:00)
[2018-01-15] MEDS: SERTRALINE 50 MG TABLET. PO SCH (09:00)
--- NOTE | 2018-01-15 09:49 | PDOC ---
IM PROGRESS NOTES- Subjective Subjective Patient vomited this morning and at that time she was in distress and blood pressure was high. Patient is slow to respond this morning and denies any abdominal pain or nausea. Patient continued to yell last night. Objective Objective no distress Vitals Vital Signs Date Time Temp Pulse Resp B/P (MAP) Pulse Ox O2 Delivery O2 Flow Rate FiO2 01/15/18 08:17 98 Room Air 01/15/18 07:00 97.4 60 16 170/75 (106) 97.4 Input & Output Intake and Output 01/15/18 07:00 Intake Total 500 ml Balance 500 ml Intake Oral 500 ml # Bowel Movements 4 Physical Exam Physical Exam General appearance - alert, ill appearing, and in no distress Mental Status - alert, oriented person, place mildly confused, depressed Head - normal Chest - clear to auscultation, decreased bases, + chest wall tenderness Heart - S1 and S2 normal Abdomen - soft, nontender, nondistended,obese, BS + Neurological - no acute neurological deficit, wakens to name but falls asleep easily Extremities - + edema Skin - warm and dry, wound sacral buttocks dressing in situ Labs Laboratory Tests Test 01/13/18 14:17 01/13/18 17:24 01/13/18 21:48 01/14/18 05:45 Glucose (Fingerstick) 151 mg/dL (70-99) 208 mg/dL (70-99) 196 mg/dL (70-99) White Blood Count 22.3 x10^3/uL (4.0-11.0) Red Blood Count 2.51 x10^6/uL (3.50-5.40) Hemoglobin 7.2 g/dL (12.0-15.5) Hematocrit 21.4 % (36.0-47.0) Mean Corpuscular Volume 85 fL (79-100) Mean Corpuscular Hemoglobin 29 pg (25-35) Mean Corpuscular Hemoglobin Concent 33 g/dL (31-37) Red Cell Distribution Width 18.8 % (11.5-14.5) Platelet Count 151 x10^3/uL (140-400) Neutrophils (%) (Auto) 90 % (31-73) Lymphocytes (%) (Auto) 7 % (24-48) Monocytes (%) (Auto) 3 % (0-9) Eosinophils (%) (Auto) 0 % (0-3) Basophils (%) (Auto) 0 % (0-3) Neutrophils # (Auto) 20.1 x10^3uL (1.8-7.7) Lymphocytes # (Auto) 1.5 x10^3/uL (1.0-4.8) Monocytes # (Auto) 0.7 x10^3/uL (0.0-1.1) Eosinophils # (Auto) 0.0 x10^3/uL (0.0-0.7) Basophils # (Auto) 0.0 x10^3/uL (0.0-0.2) Sodium Level 136 mmol/L (136-145) Potassium Level 3.6 mmol/L (3.5-5.1) Chloride Level 97 mmol/L (98-107) Carbon Dioxide Level 31 mmol/L (21-32) Anion Gap 8 (6-14) Blood Urea Nitrogen 25 mg/dL (7-20) Creatinine 3.0 mg/dL (0.6-1.0) Estimated GFR (Cockcroft-Gault) 19.6 Glucose Level 183 mg/dL (70-99) Calcium Level 9.3 mg/dL (8.5-10.1) Phosphorus Level 1.6 mg/dL (2.6-4.7) Magnesium Level 2.1 mg/dL (1.8-2.4) Albumin 2.4 g/dL (3.4-5.0) Test 01/14/18 08:45 01/14/18 12:01 01/14/18 17:26 01/14/18 20:39 Glucose (Fingerstick) 164 mg/dL (70-99) 175 mg/dL (70-99) 167 mg/dL (70-99) 165 mg/dL (70-99) Test 01/15/18 05:30 01/15/18 08:49 White Blood Count 18.6 x10^3/uL (4.0-11.0) Red Blood Count 2.62 x10^6/uL (3.50-5.40) Hemoglobin 7.5 g/dL (12.0-15.5) Hematocrit 22.4 % (36.0-47.0) Mean Corpuscular Volume 86 fL (79-100) Mean Corpuscular Hemoglobin 29 pg (25-35) Mean Corpuscular Hemoglobin Concent 33 g/dL (31-37) Red Cell Distribution Width 19.0 % (11.5-14.5) Platelet Count 150 x10^3/uL (140-400) Neutrophils (%) (Auto) 94 % (31-73) Lymphocytes (%) (Auto) 3 % (24-48) Monocytes (%) (Auto) 2 % (0-9) Eosinophils (%) (Auto) 0 % (0-3) Basophils (%) (Auto) 0 % (0-3) Neutrophils # (Auto) 17.5 x10^3uL (1.8-7.7) Lymphocytes # (Auto) 0.5 x10^3/uL (1.0-4.8) Monocytes # (Auto) 0.4 x10^3/uL (0.0-1.1) Eosinophils # (Auto) 0.0 x10^3/uL (0.0-0.7) Basophils # (Auto) 0.1 x10^3/uL (0.0-0.2) Sodium Level 135 mmol/L (136-145) Potassium Level 4.0 mmol/L (3.5-5.1) Chloride Level 98 mmol/L (98-107) Carbon Dioxide Level 29 mmol/L (21-32) Anion Gap 8 (6-14) Blood Urea Nitrogen 37 mg/dL (7-20) Creatinine 4.1 mg/dL (0.6-1.0) Estimated GFR (Cockcroft-Gault) 13.7 Glucose Level 188 mg/dL (70-99) Calcium Level 9.6 mg/dL (8.5-10.1) Phosphorus Level 2.3 mg/dL (2.6-4.7) Albumin 2.4 g/dL (3.4-5.0) Glucose (Fingerstick) 172 mg/dL (70-99) Laboratory Tests Test 01/14/18 12:01 01/14/18 17:26 01/14/18 20:39 01/15/18 05:30 Glucose (Fingerstick) 175 mg/dL (70-99) 167 mg/dL (70-99) 165 mg/dL (70-99) White Blood Count 18.6 x10^3/uL (4.0-11.0) Red Blood Count 2.62 x10^6/uL (3.50-5.40) Hemoglobin 7.5 g/dL (12.0-15.5) Hematocrit 22.4 % (36.0-47.0) Mean Corpuscular Volume 86 fL (79-100) Mean Corpuscular Hemoglobin 29 pg (25-35) Mean Corpuscular Hemoglobin Concent 33 g/dL (31-37) Red Cell Distribution Width 19.0 % (11.5-14.5) Platelet Count 150 x10^3/uL (140-400) Neutrophils (%) (Auto) 94 % (31-73) Lymphocytes (%) (Auto) 3 % (24-48) Monocytes (%) (Auto) 2 % (0-9) Eosinophils (%) (Auto) 0 % (0-3) Basophils (%) (Auto) 0 % (0-3) Neutrophils # (Auto) 17.5 x10^3uL (1.8-7.7) Lymphocytes # (Auto) 0.5 x10^3/uL (1.0-4.8) Monocytes # (Auto) 0.4 x10^3/uL (0.0-1.1) Eosinophils # (Auto) 0.0 x10^3/uL (0.0-0.7) Basophils # (Auto) 0.1 x10^3/uL (0.0-0.2) Sodium Level 135 mmol/L (136-145) Potassium Level 4.0 mmol/L (3.5-5.1) Chloride Level 98 mmol/L (98-107) Carbon Dioxide Level 29 mmol/L (21-32) Anion Gap 8 (6-14) Blood Urea Nitrogen 37 mg/dL (7-20) Creatinine 4.1 mg/dL (0.6-1.0) Estimated GFR (Cockcroft-Gault) 13.7 Glucose Level 188 mg/dL (70-99) Calcium Level 9.6 mg/dL (8.5-10.1) Phosphorus Level 2.3 mg/dL (2.6-4.7) Albumin 2.4 g/dL (3.4-5.0) Test 01/15/18 08:49 Glucose (Fingerstick) 172 mg/dL (70-99) Meds Current Medications Buspirone HCl (Buspar) 5 mg TID PO Last administered on 01/15/18at 08:19; Start 01/14/18 at 14:00 Info (PHARMACY MONITORING -- do not chart) 1 each PRN DAILY PRN MC SEE COMMENTS ; Start 01/15/18 at 08:45 Info (PHARMACY MONITORING -- do not chart) 1 each PRN DAILY PRN MC SEE COMMENTS ; Start 01/15/18 at 08:45; Status UNV Labetalol HCl (Normodyne) 10 mg PRN Q1HR PRN IVP SBP > 180; Start 01/15/18 at 08:45; Stop 01/16/18 at 08:44 Sodium Chloride 1,000 ml @ 400 mls/hr Q2H30M PRN IV PATENCY; Start 01/15/18 at 08:34; Stop 01/15/18 at 20:33 Sodium Chloride 1,000 ml @ 1,000 mls/hr Q1H PRN IV hypotension; Start 01/15/18 at 08:34; Stop 01/15/18 at 14:33 Assessment Assessment Assessment FINAL DIAGNOSIS: 1. Chest pain - chest wall MS pain not costochondritis- sternal incision pain 2. LLL pneumonia HCFA gram - gram + with sepsis POA 3. sepsis - LLL pneumonia/ probable infected pressure wound sacral/buttocks 4. metabolic encephalopathy 5. acute on chronic anemia ESRD 6. Chest pain with h/o CABG 11/2017 8. Pressure wound coccyx sacrum with black eschar 9. abnormal troponin with h/o NSTEMI 10. End-stage renal disease, on hemodialysis TTS 11. 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 12. History of hyperparathyroidism secondary to end-stage renal disease. 13. Hyperlipidemia. 14. Severe pulmonary hypertension. 15. Asthma. 16. Gastroesophageal reflux disease. 17. CAD with MD unknown age and + small ischemia per [facility] medical management with recent CABG 18. Negative hepatitis C. 19. moderate severe depression recurrent 20. DM II insulin gastroparesis, ESRD 21. severe PCL malnutrition with decreased po intake 22. moderate weakness and debility 23, depression 24. secondary hyperparathyroidism 25. post op CABG L leg paralysis post op 26. Diastolic congestive heart failure with preserved ejection fraction not acute 27. severe PCL malnutrition with underlying moderate PCL malnutrition 28. h/o recent code blue 29. infected sacral ulcer POA s/p debridement to muscle 01/12/18 PLAN: chest pain cardiology following Admit troponin 0.046 leukocytosis/ fever/ question infiltrate LLL Chronic LLL effusion pulmonary following - no further thoracentesis at this time CT chest w/o contrast pending fever/leukocytosis Admit WBC 21.7 today 20.9 ESR 35 CRP 20.9 Pre Calcitonin 2.05 ID following Vancomycin zosyn Prelim BC 1 or 7 + for gram + cocci Anemia/thrombocytopenia Admit Hgb 7.3 decreased to 6.4 and today 7.3 post 1U PRC thrombocytopenia Admit 215 today 123 - monitor - r/t infectious process/ antibiotics Severe depression Zoloft continues pysch consult had been ordered [facility] ESRD hemodialysis continued in patient DVT/GI prophylaxis SCD/JEN PPI Screen LTAC 01/11/18 chest wall pain - improved with Voltaren Gel - CT chest w/o noted mild edema identified in the subcutaneous region of the chest similar to prior exam. pressure wound - wound care note reviewed - will obtain surgical consult to eval for debridement - local wound care started sepsis pneumonia - lab pending - Tm 100.7F last 24 hours - ID following - on zosyn and Vanco abnormal CXR -CT chest 01/10- Left lower lobe lung consolidation with air bronchograms identified likely pneumonia or postobstructive atelectasis. ESRD - HD Admit wt 191# today 185.56# - DM II - BS 81-89 Await [facility] screen Labs pending For further plan of care, please refer to the orders. 01/12/18 wound - to OR today for debridement. continue IV antibiotics sepsis - pneumonia/probable infected pressure wound - Zosyn Vanco continue - fever improved. DM - BS 80-169 encephalopathy - improving slowly Pain control - will begin fentanyl 50mcg q4hr prn pain and continue lortab q8hr prn ESRD - dialysis continues wt. today 179.56 PICC ordered 01/11- nephrology concerned regarding length of need - ID contacted by staff - change order to central line - anesthesia contacted - will insert in surgery. For more details regarding further plans, please refer to the orders. 01/13/18 wound - IV antibiotics zosyn/vanc and micafungin added 01/12. Procedure 01/13/[address] Coulter: Excisional debridement of skin, subcutaneous tissue, muscle 5 cm sacral ulcer with necrotic tissue extending down through skin, subcutaneous tissue to muscle, no bony involvement sepsis - pneumonia/probable infected pressure wound - Zosyn Vanco continue - micafungin added 01/12 DM - 115-205 Anemia - Hgb 7.3 thrombocytopenia r/t med/infection - Admit Plt 215 -lowest 01/12 126 and today improved to 161 encephalopathy - improving slowly Pain control - will begin fentanyl 50mcg q4hr prn pain and continue lortab q8hr prn - less moaning ESRD - dialysis continues wt. today 185.06 [facility] Screen in process. For more details regarding further plans, please refer to the orders. 01/13 LLL pneumonia/pleural effusion - CXR 01/12-worsening infiltrate, effusion wounds - wound care, now with wound vac sepsis - IV Zosyn/Vanco changed to meropenem/zyvox and micafungin continued. leukocytosis - WBC 22.3 ( steroid during surgery) anemia - Hgb 7.2 DM - 151-208 metabolic encephalopathy with underlying severe depression severe depression - currently Zoloft which has been given chronically - consider changing to Wellbutrin - defer to Dr. Dang [facility] denied admission to LTAC - SW requesting peer to peer between [facility] MD and Dr. Dang Refer to Dr. Bright recommendations 01/15/18 Patient vomited this morning. Vomiting is multifactorial. Medications reviewed. Blood pressure is high when she was in distress. Patient was yelling last night. She remains depressed. Leukocytosis is improving. Continue wound care. Decreased her scheduled dose of Tylenol because she is also getting hydrocodone with acetaminophen. Prognosis remains poor. Continue wound care. For more details regarding further plans, please refer to the orders. For more details regarding further plans, please refer to the orders. Plan Plan For more details regarding further plans, please refer to the orders. Nutrition Consultation Dietary Evaluation: Recommendations by RD: Protein supplementation Comments: REC Glucerna TID Will add ADA diet restriction to current renal diet per pmhx Continue w/tiffani-kapil Expected Outcomes/Goals: PO intake to meet >75% est needs Malnutrition Findings: Food and Nutrition Intake (Mod: <75% est energy req 7days Weight Status: Overweight Plan Plan For more details regarding further plans, please refer to the orders. Nutrition Consultation Dietary Evaluation: Recommendations by RD: Protein supplementation, PPN/TPN Comments: Continue Glucerna TID Will liberalize diet to regular to promote po intake/provide more food options Continue w/tiffani-kapil REC PPN to supplement poor PO intake Expected Outcomes/Goals: PO intake to meet >75% est needs - not met, goal ongoing Malnutrition Findings: Food and Nutrition Intake (Mod: <75% est energy req 7days Weight Status: Overweight GAURAV DANG MD Jan 15, 2018 09:49
--- NOTE | 2018-01-15 12:06 | PDOC ---
Renal-Progress Notes Subjective Notes Notes STABLE History of Present Illness Hx of present illness STABLE Vitals Vitals Vital Signs Date Time Temp Pulse Resp B/P (MAP) Pulse Ox O2 Delivery O2 Flow Rate FiO2 01/15/18 08:17 98 Room Air 01/15/18 07:00 97.4 60 16 170/75 (106) 97.4 Weight Weight [ ] I.O. Intake and Output Intake and Output 01/15/18 07:00 Intake Total 500 ml Balance 500 ml Intake Oral 500 ml # Bowel Movements 4 Labs Labs Laboratory Tests Test 01/14/18 17:26 01/14/18 20:39 01/15/18 05:30 01/15/18 08:49 Glucose (Fingerstick) 167 mg/dL (70-99) 165 mg/dL (70-99) 172 mg/dL (70-99) White Blood Count 18.6 x10^3/uL (4.0-11.0) Red Blood Count 2.62 x10^6/uL (3.50-5.40) Hemoglobin 7.5 g/dL (12.0-15.5) Hematocrit 22.4 % (36.0-47.0) Mean Corpuscular Volume 86 fL (79-100) Mean Corpuscular Hemoglobin 29 pg (25-35) Mean Corpuscular Hemoglobin Concent 33 g/dL (31-37) Red Cell Distribution Width 19.0 % (11.5-14.5) Platelet Count 150 x10^3/uL (140-400) Neutrophils (%) (Auto) 94 % (31-73) Lymphocytes (%) (Auto) 3 % (24-48) Monocytes (%) (Auto) 2 % (0-9) Eosinophils (%) (Auto) 0 % (0-3) Basophils (%) (Auto) 0 % (0-3) Neutrophils # (Auto) 17.5 x10^3uL (1.8-7.7) Lymphocytes # (Auto) 0.5 x10^3/uL (1.0-4.8) Monocytes # (Auto) 0.4 x10^3/uL (0.0-1.1) Eosinophils # (Auto) 0.0 x10^3/uL (0.0-0.7) Basophils # (Auto) 0.1 x10^3/uL (0.0-0.2) Sodium Level 135 mmol/L (136-145) Potassium Level 4.0 mmol/L (3.5-5.1) Chloride Level 98 mmol/L (98-107) Carbon Dioxide Level 29 mmol/L (21-32) Anion Gap 8 (6-14) Blood Urea Nitrogen 37 mg/dL (7-20) Creatinine 4.1 mg/dL (0.6-1.0) Estimated GFR (Cockcroft-Gault) 13.7 Glucose Level 188 mg/dL (70-99) Calcium Level 9.6 mg/dL (8.5-10.1) Phosphorus Level 2.3 mg/dL (2.6-4.7) Albumin 2.4 g/dL (3.4-5.0) Micro Micro Microbiology 01/08/18 Blood Culture - Final, Complete Review of Systems Constitutional: yes: malaise, alert Ears/Nose/Throat: Yes: no symptom reported Eyes: Yes: no symptom reported Pulmonary: Yes no symptom reported Cardiovascular: Yes no symptom reported Gastrointestional: Yes: no symptom reported Genitourinary: Yes: no symptom reported Musculoskeletal: Yes: no symptom reported Skin: Yes no symptom reported Psychiatric/Neurological: Yes: no symptom reported Endocrine: Yes: no symptom reported Physical Exam General Appearance: no apparent distress Skin: warm Heart: S1S2 Abdomen: soft, bowel sounds present Genitourinary: bladder flat Extremities: pulses present Neurology: alert, oriented Musculoskeletal: Osteoarthritis Assessment Assessment IMP LEUCOCYTOSIS SEPSIS ANEMIA ESRD PLAN ANTIBIOTICS HD TODAY UF TO TING ROJAS MD Jan 15, 2018 12:06
[2018-01-15] MEDS: ISOSORBIDE MONONITRATE ER 30 MG TAB.ER.24H PO SCH (14:44)
[2018-01-15] MEDS: LOSARTAN POTASSIUM 50 MG TABLET. PO SCH (14:45)
[2018-01-15] MEDS: CARVEDILOL 12.5 MG TABLET. PO SCH ×2 (14:45→17:11)
[2018-01-15] MEDS: ACETAMINOPHEN 325 MG TABLET. PO SCH ×2 (14:46→21:00)
[2018-01-15] MEDS: MINOXIDIL 2.5 MG TABLET PO SCH ×2 (14:46→21:04)
[2018-01-15 15:00] VITALS: BP 181/71
--- NOTE | 2018-01-15 16:37 | PDOC2 ---
CONSULT Date of Consult Date of Consult DATE: 01/15/18 TIME: 16:25 Reason for Consult Reason for Consult: vomited this AM- nausea History of Present Illness Reason for Visit: 57 yo female with ESRD on dialysis, sacral wound with recent debridement, pneumonia (per CT chest), severe depression and chronic nausea- seemingly worse since admission- vomiting this AM after taking pills, not food but has not felt like eating for a few days. Review of old chart reveals abnormal gastric emptying study in past, prior negative colonoscopy but I do not see prior EGD. She had cholecystectomy in 2016 and no clear history for pancreatitis is reported but she is on Zenpep. She is difficult historian- with flat affect. Denies hematemesis, melena, but does have hsitory fo mild constipation- but is having several BM here in hospital. Past Medical History Cardiovascular: CAD, CHF, HTN, Hyperlipidemia, Pulmonary hypertension Pulmonary: Asthma CENTRAL NERVOUS SYSTEM: CVA GI: GERD, Other (delayed gastric emptying) Heme/Onc: Anemia NOS Hepatobiliary: Hep A/B/C Psych: Addictions, Depression Musculoskeletal: Osteoarthritis Renal/: Chronic renal failure Endocrine: Diabetes Past Surgical History Past Surgical History: Cholecystectomy, CABG, Hysterectomy, Other Family History Family History: Heart Disease, Kidney Disease Social History ALCOHOL: none Drugs: None Lives: Senior Care Current Problem List Problem List Problems Medical Problems: (1) End stage renal disease Status: Acute Current Medications Current Medications Current Medications Morphine Sulfate (Morphine Sulfate) 6 mg 1X ONCE IV Last administered on at 13:35; Start 01/08/18 at 13:00; Stop 01/08/18 at 13:01; Status DC Vancomycin HCl (Vanco Per Pharmacy) 1 each PRN DAILY PRN MC SEE COMMENTS Last administered on 01/12/18at 09:16; Start 01/08/18 at 15:30; Stop 01/13/18 at 10:06; Status DC Vancomycin HCl 1.75 gm/Sodium Chloride 500 ml @ 250 mls/hr 1X ONCE IV Last administered on 01/08/18at 15:39; Start 01/08/18 at 15:30; Stop 01/08/18 at 17:29; Status DC Ondansetron HCl (Zofran) 4 mg PRN Q8HRS PRN IV NAUSEA/VOMITING Last administered on 01/08/18at 21:44; Start 01/08/18 at 16:00; Stop 01/09/18 at 08:45; Status DC Morphine Sulfate (Morphine Sulfate) 2 mg PRN Q2HR PRN IV PAIN Last administered on 01/08/18at 17:06; Start 01/08/18 at 16:00; Stop 01/09/18 at 15:59; Status DC Vancomycin HCl (Vancomycin Random Level) 1 each 1X ONCE MC Last administered on 01/10/18at 05:00; Start 01/10/18 at 05:00; Stop 01/10/18 at 05:01; Status DC Lorazepam (Ativan) 1 mg PRN Q4HRS PRN IV ANXIETY / AGITATION Last administered on 01/09/18at 21:30; Start 01/08/18 at 18:00; Stop 01/10/18 at 09:24; Status DC Acetaminophen (Tylenol) 650 mg PRN Q6HRS PRN PO FEVER; Start 01/08/18 at 18:00; Stop 01/10/18 at 09:24; Status DC Iohexol (Omnipaque 300 Mg/ml) 75 ml 1X ONCE IV Last administered on 01/08/18at 19:35; Start 01/08/18 at 18:15; Stop 01/08/18 at 18:16; Status DC Ondansetron HCl (Zofran) 4 mg PRN Q6HRS PRN IV NAUSEA/VOMITING Last administered on 01/15/18at 08:40; Start 01/09/18 at 08:45 Sodium Chloride 1,000 ml @ 100 mls/hr Q10H IV ; Start 01/09/18 at 09:00; Stop at 11:32; Status DC Acetaminophen (Tylenol) 1,000 mg TID PO Last administered on 01/15/18at 08:16; Start 01/09/18 at 09:00; Stop 01/15/18 at 09:48; Status DC Carvedilol (Coreg) 12.5 mg BIDWMEALS PO Last administered on 01/15/18at 14:45; Start 01/09/18 at 09:00 Vitamin D (Vitamin D3) 1,000 unit DAILY PO Last administered on 01/11/18at 12:15 ; Start 01/09/18 at 09:00 Diphenhydramine HCl (Benadryl) 25 mg PRN Q6HRS PRN PO ITCHING; Start 01/09/18 at 08:45 Vitamin B Complex/ Vitamin C (Anneliese-Donny) 1 tab DAILY PO Last administered on 08:17; Start 01/09/18 at 09:00 Isosorbide Mononitrate (Imdur) 120 mg DAILY PO Last administered on 01/15/18at 14:44; Start 01/09/18 at 09:00 Amylase/Lipase/ Protease (Zenpep 10,000) 2 cap TIDWMEALS PO Last administered on 01/15/18 08:19; Start 01/09/18 at 09:00 Nitroglycerin (Nitrostat) 0.4 mg PRN Q5MIN PRN SL CHEST PAIN; Start 01/09/18 at 08:45 Pantoprazole Sodium (Protonix) 40 mg DAILYAC PO Last administered on 01/15/18 08:17; Start 01/09/18 at 09:00 Non-Formulary Medication (Insulin Aspart (Novolog Flexpen)) TIDAC SQ ; Start at 11:30; Status UNV Losartan Potassium (Cozaar) 100 mg DAILY PO Last administered on 01/15/18 14: 45; Start 01/09/18 at 09:00 Minoxidil (Loniten) 2.5 mg BID PO Last administered on 01/15/18at 14:46; Start 01/09/18 at 09:00 Montelukast Sodium (Singulair) 10 mg QHS PO Last administered on 01/14/18at 20: 32; Start 01/09/18 at 21:00 Polyethylene Glycol (miraLAX PACKET) 17 gm DAILY PO Last administered on at 13:30; Start 01/09/18 at 09:00 Sertraline HCl (Zoloft) 100 mg DAILY PO Last administered on 01/14/18 09:36; Start 01/09/18 at 09:00 Calcium Acetate (Phoslo) 1,334 mg TIDWMEALS PO Last administered on 01/10/18at 12 :24; Start 01/09/18 at 09:00; Stop 01/10/18 at 15:33; Status DC Insulin Human Lispro (HumaLOG) 0-5 UNITS TIDAC SQ Last administered on at 19:45; Start 01/09/18 at 11:30 Magnesium Sulfate 50 ml @ 25 mls/hr PRN DAILY PRN IV for Mag < 1.7 on am labs; Start 01/09/18 at 10:15 Darbepoetin Ty (Aranesp) 60 mcg WEEKLYHS SQ Last administered on 01/09/18at 21: 29; Start 01/09/18 at 21:00 Piperacillin Sod/ Tazobactam Sod (Zosyn Per Pharmacy) 1 each PRN DAILY PRN MC SEE COMMENTS; Start 01/09/18 at 11:15; Status Cancel Piperacillin Sod/ Tazobactam Sod 2.25 gm/Sodium Chloride 50 ml @ 100 mls/hr Q8HRS IV Last administered on 01/13/18at 05:07; Start 01/09/18 at 12:00; Stop 01/13 at 10:06; Status DC Acetaminophen (Tylenol) 325 mg PRN Q6HRS PRN PO FEVER; Start 01/10/18 at 09:15 Lactobacillus Rhamnosus (Culturelle) 1 cap BID PO Last administered on at 20:32; Start 01/10/18 at 21:00 Acetaminophen/ Hydrocodone Bitart (Lortab 7.5/325) 1 tab PRN Q8HRS PRN PO PAIN Last administered on 01/15/18at 08:17; Start 01/10/18 at 09:45 Diclofenac Sodium (Voltaren) 1 graciela TID TP Last administered on 01/15/18at 14:46 ; Start 01/10/18 at 14:00 Vancomycin HCl 500 mg/Sodium Chloride 100 ml @ 100 mls/hr ONCE ONCE IV Last administered on 01/10/18at 18:13; Start 01/10/18 at 16:00; Stop 01/10/18 at 16:59; Status DC Sodium Chloride 1,000 ml @ 1,000 mls/hr Q1H PRN IV hypotension; Start 01/10/18 at 14:25; Stop 01/10/18 at 20:24; Status DC Diphenhydramine HCl (Benadryl) 25 mg 1X PRN PRN IV ITCHING; Start 01/10/18 at 14 :30; Stop 01/11/18 at 14:29; Status DC Diphenhydramine HCl (Benadryl) 25 mg 1X PRN PRN IV ITCHING; Start 01/10/18 at 14 :30; Stop 01/11/18 at 14:29; Status DC Sodium Chloride 1,000 ml @ 400 mls/hr Q2H30M PRN IV PATENCY; Start 01/10/18 at 14:25; Stop 01/11/18 at 02:24; Status DC Info (PHARMACY MONITORING -- do not chart) 1 each PRN DAILY PRN MC SEE COMMENTS ; Start 01/10/18 at 14:30; Status Cancel Sodium Chloride 1,000 ml @ 1,000 mls/hr Q1H PRN IV hypotension; Start 01/11/18 at 08:06; Stop 01/11/18 at 14:05; Status DC Info (PHARMACY MONITORING -- do not chart) 1 each PRN DAILY PRN MC SEE COMMENTS ; Start 01/11/18 at 08:15; Stop 01/11/18 at 08:15; Status DC Info (PHARMACY MONITORING -- do not chart) 1 each PRN DAILY PRN MC SEE COMMENTS ; Start 01/11/18 at 08:15; Stop 01/11/18 at 08:15; Status DC Vancomycin HCl 500 mg/Sodium Chloride 100 ml @ 100 mls/hr QTUTHSA IV Last administered on 01/11/18at 20:41; Start 01/11/18 at 16:00; Stop 01/13/18 at 10:06; Status DC Fentanyl Citrate (Fentanyl 2ml Vial) 50 mcg PRN Q4HRS PRN IV PAIN Last administered on 01/15/18at 05:58; Start 01/12/18 at 08:15 Micafungin Sodium 100 mg/Dextrose 100 ml @ 100 mls/hr Q24H IV Last administered on 01/15/18at 08:19; Start 01/12/18 at 09:00 Ondansetron HCl (Zofran) 4 mg PRN Q6HRS PRN IV NAUSEA/VOMITING; Start 01/12/18 at 09:15; Stop 01/13/18 at 09:14; Status DC Fentanyl Citrate (Fentanyl 2ml Vial) 25 mcg PRN Q5MIN PRN IV MILD PAIN Last administered on 01/12/18at 17:21; Start 01/12/18 at 09:15; Stop 01/13/18 at 09:14; Status DC Fentanyl Citrate (Fentanyl 2ml Vial) 50 mcg PRN Q5MIN PRN IV MODERATE TO SEVERE PAIN; Start 01/12/18 at 09:15; Stop 01/13/18 at 09:14; Status DC Lidocaine HCl (Xylocaine-Mpf 1% Vial) 2 ml PRN 1X PRN ID PRIOR TO IV START; Start 01/12/18 at 09:15; Stop 01/13/18 at 09:14; Status DC Prochlorperazine Edisylate (Compazine) 5 mg PACU PRN PRN IV NAUSEA, MRX1 Last administered on 01/12/18at 14:43; Start 01/12/18 at 09:15; Stop 01/13/18 at 09:14; Status DC Sodium Chloride 1,000 ml @ 0 mls/hr Q0M IV Last administered on 01/12/18at 14:27 ; Start 01/12/18 at 14:15 Prochlorperazine Edisylate (Compazine) 10 mg STK-MED ONCE .ROUTE ; Start at 14:40; Stop 01/12/18 at 14:41; Status DC Fentanyl Citrate (Fentanyl 2ml Vial) 100 mcg STK-MED ONCE .ROUTE ; Start at 15:17; Stop 01/12/18 at 15:18; Status DC Fentanyl Citrate (Fentanyl 2ml Vial) 100 mcg STK-MED ONCE .ROUTE ; Start at 15:18; Stop 01/12/18 at 15:20; Status DC Succinylcholine Chloride (Anectine) 200 mg STK-MED ONCE .ROUTE ; Start 01/12/18 at 15:19; Stop 01/12/18 at 15:20; Status DC Phenylephrine HCl (PHENYLEPHRINE in 0.9% NACL PF) 1 mg STK-MED ONCE IV ; Start 01/12/18 at 15:44; Stop 01/12/18 at 15:46; Status DC Ephedrine Sulfate (Akovaz) 50 mg STK-MED ONCE .ROUTE ; Start 01/12/18 at 15:49; Stop 01/12/18 at 15:50; Status DC Dexamethasone Sodium Phosphate (Decadron) 20 mg STK-MED ONCE .ROUTE ; Start 01/12 at 15:54; Stop 01/12/18 at 15:55; Status DC Bupivacaine HCl/ Epinephrine Bitart (Marcaine-Epi 0.25%-1:[id number]) 50 ml STK-MED ONCE .ROUTE Last administered on 01/12/18at 16:35; Start 01/12/18 at 15:19; Stop 01/12/18 at 16:20; Status DC Sodium Chloride (Normal Saline Flush) 3 ml QSHIFT PRN IV AFTER MEDS AND BLOOD DRAWS; Start 01/12/18 at 16:45 Sodium Chloride 1,000 ml @ 1,000 mls/hr Q1H PRN IV hypotension; Start 01/13/18 at 06:54; Stop 01/13/18 at 12:53; Status DC Albumin Human 200 ml @ 200 mls/hr 1X PRN PRN IV Hypotension; Start 01/13/18 at 07:00; Stop 01/13/18 at 12:59; Status DC Sodium Chloride 1,000 ml @ 400 mls/hr Q2H30M PRN IV PATENCY; Start 01/13/18 at 06:54; Stop 01/13/18 at 18:53; Status DC Info (PHARMACY MONITORING -- do not chart) 1 each PRN DAILY PRN MC SEE COMMENTS ; Start 01/13/18 at 07:00; Status Cancel Info (PHARMACY MONITORING -- do not chart) 1 each PRN DAILY PRN MC SEE COMMENTS ; Start 01/13/18 at 07:00; Status UNV Meropenem 500 mg/ Sodium Chloride 50 ml @ 100 mls/hr DAILY IV Last administered on 01/15/18at 08:19; Start 01/13/18 at 10:30 Linezolid (Zyvox) 600 mg BID PO Last administered on 01/15/18at 08:18; Start 01/13/18 at 10:30 Buspirone HCl (Buspar) 5 mg TID PO Last administered on 01/15/18at 14:44; Start 01/14/18 at 14:00 Sodium Chloride 1,000 ml @ 1,000 mls/hr Q1H PRN IV hypotension; Start 01/15/18 at 08:34; Stop 01/15/18 at 14:33; Status DC Labetalol HCl (Normodyne) 10 mg PRN Q1HR PRN IVP SBP > 180; Start 01/15/18 at 08:45; Stop 01/16/18 at 08:44 Sodium Chloride 1,000 ml @ 400 mls/hr Q2H30M PRN IV PATENCY; Start 01/15/18 at 08:34; Stop 01/15/18 at 20:33 Info (PHARMACY MONITORING -- do not chart) 1 each PRN DAILY PRN MC SEE COMMENTS ; Start 01/15/18 at 08:45 Info (PHARMACY MONITORING -- do not chart) 1 each PRN DAILY PRN MC SEE COMMENTS ; Start 01/15/18 at 08:45; Status UNV Acetaminophen (Tylenol) 650 mg TID PO Last administered on 01/15/18at 14:46; Start 01/15/18 at 14:00 Active Scripts Active Vitamin D3 (Cholecalciferol (Vitamin D3)) 1,000 Unit Tablet 1 Tab PO DAILY [Calcium Acetate] 667 MG Capsule 1,334 Mg PO TIDWMEALS Mapap (Acetaminophen) 500 Mg Tablet 1,000 Mg PO TID Carvedilol 12.5 Mg Tablet 12.5 Mg PO BIDWMEALS Minoxidil 2.5 Mg Tablet 2.5 Mg PO BID Isosorbide Mononitrate Er (Isosorbide Mononitrate) 30 Mg Tab.er.24h 120 Mg PO DAILY Montelukast Sodium Tablet (Montelukast Sodium) 10 Mg Tablet 10 Mg PO QHS Polyethylene Glycol 3350 2,500 Gm Powder 17 Gm PO DAILY Novolog Flexpen (Insulin Aspart) 100 Unit/1 Ml Insuln.pen 0 Units SQ TIDAC Take sub q tid ac: BS 151-200=2 unit, 201-250=3 unit, [id number], BS 301-350=6 unit, BS 351-400 =8 unit. BS>401 call MD Renetta Busch 10,000 Units Capsule (Lipase/Protease/Amylase) 1 Each Capsule. 2 Cap PO TIDWMEALS TAke 2 cap tid with meals Nephro-Donny Tablet (Folic Acid/Vitamin B Comp W-C) 0.8 Mg Tablet 1 Tab PO DAILY Benadryl (Diphenhydramine Hcl) 25 Mg Capsule 25 Mg PO PRN Q6HRS PRN Reported Nitrostat (Nitroglycerin) 0.4 Mg Tab.subl 0.4 Mg SL PRN Q5MIN PRN Plavix (Clopidogrel Bisulfate) 75 Mg Tablet 1 Tab PO DAILY Zoloft (Sertraline Hcl) 100 Mg Tablet 1 Tab PO DAILY Pantoprazole Sodium 40 Mg Tablet.dr 1 Tab PO DAILY Losartan Potassium 100 Mg Tablet 100 Mg PO DAILY Aspir 81 (Aspirin) 81 Mg Tablet.dr 81 Mg PO DAILY Allergies Allergies: Coded Allergies: amitriptyline (Verified Allergy, Intermediate, 11/09/16) hydromorphone (Verified Allergy, Intermediate, LORTAB OK AT HOME, 05/05/17 ) lisinopril (Verified Allergy, Intermediate, 11/09/16) metformin (Verified Allergy, Intermediate, 11/09/16) I S O L A T I O N *CONTACT* (Verified Allergy, Unknown, 11/09/16) mrsa ROS PSYCHOLOGICAL ROS: YES: Depression Gastrointestinal: Yes Nausea, Yes Constipation Physical Exam General: Alert, Other (flat affect) HEENT: PERRLA Lungs: Clear to auscultation Heart: Regular rate, Normal S1 Abdomen: Normal bowel sounds, Soft, No tenderness, No hepatosplenomegaly Extremities: No clubbing Skin: No rashes Psych/Mental Status: Other (flat affect) Vitals VITALS Vital Signs Date Time Temp Pulse Resp B/P (MAP) Pulse Ox O2 Delivery O2 Flow Rate FiO2 01/15/18 14:46 60 193/81 01/15/18 09:15 98 Room Air 01/15/18 07:00 97.4 16 97.4 Labs Labs Laboratory Tests Test 01/13/18 17:24 01/13/18 21:48 01/14/18 05:45 01/14/18 08:45 Glucose (Fingerstick) 208 mg/dL (70-99) 196 mg/dL (70-99) 164 mg/dL (70-99) White Blood Count 22.3 x10^3/uL (4.0-11.0) Red Blood Count 2.51 x10^6/uL (3.50-5.40) Hemoglobin 7.2 g/dL (12.0-15.5) Hematocrit 21.4 % (36.0-47.0) Mean Corpuscular Volume 85 fL (79-100) Mean Corpuscular Hemoglobin 29 pg (25-35) Mean Corpuscular Hemoglobin Concent 33 g/dL (31-37) Red Cell Distribution Width 18.8 % (11.5-14.5) Platelet Count 151 x10^3/uL (140-400) Neutrophils (%) (Auto) 90 % (31-73) Lymphocytes (%) (Auto) 7 % (24-48) Monocytes (%) (Auto) 3 % (0-9) Eosinophils (%) (Auto) 0 % (0-3) Basophils (%) (Auto) 0 % (0-3) Neutrophils # (Auto) 20.1 x10^3uL (1.8-7.7) Lymphocytes # (Auto) 1.5 x10^3/uL (1.0-4.8) Monocytes # (Auto) 0.7 x10^3/uL (0.0-1.1) Eosinophils # (Auto) 0.0 x10^3/uL (0.0-0.7) Basophils # (Auto) 0.0 x10^3/uL (0.0-0.2) Sodium Level 136 mmol/L (136-145) Potassium Level 3.6 mmol/L (3.5-5.1) Chloride Level 97 mmol/L (98-107) Carbon Dioxide Level 31 mmol/L (21-32) Anion Gap 8 (6-14) Blood Urea Nitrogen 25 mg/dL (7-20) Creatinine 3.0 mg/dL (0.6-1.0) Estimated GFR (Cockcroft-Gault) 19.6 Glucose Level 183 mg/dL (70-99) Calcium Level 9.3 mg/dL (8.5-10.1) Phosphorus Level 1.6 mg/dL (2.6-4.7) Magnesium Level 2.1 mg/dL (1.8-2.4) Albumin 2.4 g/dL (3.4-5.0) Test 01/14/18 12:01 01/14/18 17:26 01/14/18 20:39 01/15/18 05:30 Glucose (Fingerstick) 175 mg/dL (70-99) 167 mg/dL (70-99) 165 mg/dL (70-99) White Blood Count 18.6 x10^3/uL (4.0-11.0) Red Blood Count 2.62 x10^6/uL (3.50-5.40) Hemoglobin 7.5 g/dL (12.0-15.5) Hematocrit 22.4 % (36.0-47.0) Mean Corpuscular Volume 86 fL (79-100) Mean Corpuscular Hemoglobin 29 pg (25-35) Mean Corpuscular Hemoglobin Concent 33 g/dL (31-37) Red Cell Distribution Width 19.0 % (11.5-14.5) Platelet Count 150 x10^3/uL (140-400) Neutrophils (%) (Auto) 94 % (31-73) Lymphocytes (%) (Auto) 3 % (24-48) Monocytes (%) (Auto) 2 % (0-9) Eosinophils (%) (Auto) 0 % (0-3) Basophils (%) (Auto) 0 % (0-3) Neutrophils # (Auto) 17.5 x10^3uL (1.8-7.7) Lymphocytes # (Auto) 0.5 x10^3/uL (1.0-4.8) Monocytes # (Auto) 0.4 x10^3/uL (0.0-1.1) Eosinophils # (Auto) 0.0 x10^3/uL (0.0-0.7) Basophils # (Auto) 0.1 x10^3/uL (0.0-0.2) Sodium Level 135 mmol/L (136-145) Potassium Level 4.0 mmol/L (3.5-5.1) Chloride Level 98 mmol/L (98-107) Carbon Dioxide Level 29 mmol/L (21-32) Anion Gap 8 (6-14) Blood Urea Nitrogen 37 mg/dL (7-20) Creatinine 4.1 mg/dL (0.6-1.0) Estimated GFR (Cockcroft-Gault) 13.7 Glucose Level 188 mg/dL (70-99) Calcium Level 9.6 mg/dL (8.5-10.1) Phosphorus Level 2.3 mg/dL (2.6-4.7) Albumin 2.4 g/dL (3.4-5.0) Test 01/15/18 08:49 Glucose (Fingerstick) 172 mg/dL (70-99) Laboratory Tests Test 01/14/18 17:26 01/14/18 20:39 01/15/18 05:30 01/15/18 08:49 Glucose (Fingerstick) 167 mg/dL (70-99) 165 mg/dL (70-99) 172 mg/dL (70-99) White Blood Count 18.6 x10^3/uL (4.0-11.0) Red Blood Count 2.62 x10^6/uL (3.50-5.40) Hemoglobin 7.5 g/dL (12.0-15.5) Hematocrit 22.4 % (36.0-47.0) Mean Corpuscular Volume 86 fL (79-100) Mean Corpuscular Hemoglobin 29 pg (25-35) Mean Corpuscular Hemoglobin Concent 33 g/dL (31-37) Red Cell Distribution Width 19.0 % (11.5-14.5) Platelet Count 150 x10^3/uL (140-400) Neutrophils (%) (Auto) 94 % (31-73) Lymphocytes (%) (Auto) 3 % (24-48) Monocytes (%) (Auto) 2 % (0-9) Eosinophils (%) (Auto) 0 % (0-3) Basophils (%) (Auto) 0 % (0-3) Neutrophils # (Auto) 17.5 x10^3uL (1.8-7.7) Lymphocytes # (Auto) 0.5 x10^3/uL (1.0-4.8) Monocytes # (Auto) 0.4 x10^3/uL (0.0-1.1) Eosinophils # (Auto) 0.0 x10^3/uL (0.0-0.7) Basophils # (Auto) 0.1 x10^3/uL (0.0-0.2) Sodium Level 135 mmol/L (136-145) Potassium Level 4.0 mmol/L (3.5-5.1) Chloride Level 98 mmol/L (98-107) Carbon Dioxide Level 29 mmol/L (21-32) Anion Gap 8 (6-14) Blood Urea Nitrogen 37 mg/dL (7-20) Creatinine 4.1 mg/dL (0.6-1.0) Estimated GFR (Cockcroft-Gault) 13.7 Glucose Level 188 mg/dL (70-99) Calcium Level 9.6 mg/dL (8.5-10.1) Phosphorus Level 2.3 mg/dL (2.6-4.7) Albumin 2.4 g/dL (3.4-5.0) Assessment/Plan Assessment/Plan Chronic nausea with recent vomiting of pills- poor PO intake - numerous medical issues which are likely contributing- history of delayed gastric emptying, recent pneumonia, multiple meds, dialysis. Must consider gastritis, PUD, delayed emptying contributing as well to other medical issues. Plan- PPI trial of low dose reglan as tolerated consider EGD and gastric emptying next week- will defer to Dr. Youngblood who will assume GI care on Wednesday CITLALI HUDSON MD Jan 15, 2018 16:37
[2018-01-15] MEDS ORDERED: METOCLOPRAMIDE HCL 10 MG/2 ML VIAL. IV PRN (16:45)
[2018-01-15 19:15] VITALS: BP 171/73
[2018-01-15] MEDS: MONTELUKAST SODIUM 10 MG TABLET. PO SCH (21:03)
[2018-01-15 23:49] VITALS: BP 164/72
[2018-01-16] MEDS: ONDANSETRON PF 4 MG/2 ML VIAL. IV PRN (01:49)
[2018-01-16 03:00] VITALS: BP 169/69
[2018-01-16] MEDS: fentaNYL PF VIAL 100 MCG/2 ML VIAL IV PRN (04:59)
[2018-01-16 06:51] LABS: BASO # 0.1 x10^3/uL (0.0-0.2); BASO % 0 % (0-3); EOS # 0.1 x10^3/uL (0.0-0.7); EOS % 0 % (0-3); HEMOGLOBIN 7.7 g/dL (12.0-15.5); LYMPH # 0.6 x10^3/uL (1.0-4.8); LYMPH % 4 % (24-48); MEAN CORPUSCULAR HEMOGLOBIN 29 pg (25-35); MEAN CORPUSCULAR HGB CONC 33 g/dL (31-37); MEAN CORPUSCULAR VOLUME 86 fL (79-100); MONO # 0.2 x10^3/uL (0.0-1.1); MONO % 1 % (0-9); NEUT # 16.5 x10^3uL (1.8-7.7); NEUT % 95 % (31-73); PLATELET COUNT 168 x10^3/uL (140-400); RED BLOOD COUNT 2.68 x10^6/uL (3.50-5.40); WHITE BLOOD COUNT 17.5 x10^3/uL (4.0-11.0)
[2018-01-16 07:00] VITALS: BP 168/68
[2018-01-16 07:11] LABS: ALBUMIN 2.1 g/dL (3.4-5.0); CALCIUM 9.4 mg/dL (8.5-10.1); GFR 19.6; POTASSIUM 3.8 mmol/L (3.5-5.1)
[2018-01-16] MEDS: INSULIN LISPRO 300 UNITS/3 ML INSULN.PEN. SQ SCH ×3 (07:30→16:30)
[2018-01-16] MEDS: DICLOFENAC SODIUM 1% TOPICAL GEL 100GM TUBE. TP SCH ×3 (08:44→21:00)
[2018-01-16] MEDS: MEROPENEM 500 MG in IV NORMAL SALINE 50ML 50 ML IV SCH (08:44)
[2018-01-16] MEDS: FOLIC/VIT B COMP W-C (RENAL) TABLET. PO SCH (08:45)
[2018-01-16] MEDS ORDERED: QUEtiapine 25 MG TABLET. PO PRN (08:45)
[2018-01-16] MEDS: busPIRone 5 MG TABLET. PO SCH ×3 (08:46→22:08)
[2018-01-16] MEDS: CHOLECALCIFEROL (VITAMIN D3) 1,000 UNIT TABLET PO SCH (08:46)
[2018-01-16] MEDS: CARVEDILOL 12.5 MG TABLET. PO SCH ×2 (08:46→17:53)
[2018-01-16] MEDS: MINOXIDIL 2.5 MG TABLET PO SCH ×2 (08:46→22:08)
[2018-01-16] MEDS: PANTOPRAZOLE 40 MG TABLET.DR. PO SCH (08:46)
[2018-01-16] MEDS: LINEZOLID 600 MG TABLET PO SCH ×2 (08:47→22:08)
[2018-01-16] MEDS: SERTRALINE 50 MG TABLET. PO SCH ×2 (08:47→09:00)
[2018-01-16] MEDS: ACETAMINOPHEN 325 MG TABLET. PO SCH ×3 (08:47→22:09)
[2018-01-16] MEDS: LIPASE/PROTEAS/AMYLAS 10/32/42 CAPSULE.DR. PO SCH ×3 (08:47→17:52)
[2018-01-16] MEDS: LOSARTAN POTASSIUM 50 MG TABLET. PO SCH (08:47)
[2018-01-16] MEDS: ISOSORBIDE MONONITRATE ER 30 MG TAB.ER.24H PO SCH (08:48)
[2018-01-16] MEDS: POLYETHYLENE GLYCOL 3350 17 GM PACKET. PO SCH (08:48)
[2018-01-16] MEDS: LACTOBACILLUS RHAMNOSUS GG 1 CAPSULE. PO SCH ×2 (08:48→22:08)
--- NOTE | 2018-01-16 08:55 | PDOC ---
IM PROGRESS NOTES- Subjective Subjective Patient vomited again this morning and at that time she was in distress and blood pressure was high. Patient had a large bowel movement yesterday followed by a small bowel movement later on. Patient has been refusing medications. Objective Objective no distress Vitals Vital Signs Date Time Temp Pulse Resp B/P (MAP) Pulse Ox O2 Delivery O2 Flow Rate FiO2 01/16/18 08:48 67 168/68 01/16/18 07:00 98.8 16 98 Room Air 98.8 Input & Output Intake and Output 01/16/18 07:00 Intake Total 60 ml Balance 60 ml Intake Oral 60 ml # Bowel Movements 2 Physical Exam Physical Exam General appearance - alert, chronically ill appearing, and in no distress Mental Status - alert, oriented person, place mildly confused, depressed Head - normal Chest - clear to auscultation, decreased bases, + chest wall tenderness Heart - S1 and S2 normal Abdomen - soft, nontender, nondistended,obese, BS +, no guarding no rigidity Neurological - no acute neurological deficit, wakens to name but falls asleep easily Extremities - + edema Skin - warm and dry, wound sacral buttocks dressing in situ Labs Laboratory Tests Test 01/14/18 12:01 01/14/18 17:26 01/14/18 20:39 01/15/18 05:30 Glucose (Fingerstick) 175 mg/dL (70-99) 167 mg/dL (70-99) 165 mg/dL (70-99) White Blood Count 18.6 x10^3/uL (4.0-11.0) Red Blood Count 2.62 x10^6/uL (3.50-5.40) Hemoglobin 7.5 g/dL (12.0-15.5) Hematocrit 22.4 % (36.0-47.0) Mean Corpuscular Volume 86 fL (79-100) Mean Corpuscular Hemoglobin 29 pg (25-35) Mean Corpuscular Hemoglobin Concent 33 g/dL (31-37) Red Cell Distribution Width 19.0 % (11.5-14.5) Platelet Count 150 x10^3/uL (140-400) Neutrophils (%) (Auto) 94 % (31-73) Lymphocytes (%) (Auto) 3 % (24-48) Monocytes (%) (Auto) 2 % (0-9) Eosinophils (%) (Auto) 0 % (0-3) Basophils (%) (Auto) 0 % (0-3) Neutrophils # (Auto) 17.5 x10^3uL (1.8-7.7) Lymphocytes # (Auto) 0.5 x10^3/uL (1.0-4.8) Monocytes # (Auto) 0.4 x10^3/uL (0.0-1.1) Eosinophils # (Auto) 0.0 x10^3/uL (0.0-0.7) Basophils # (Auto) 0.1 x10^3/uL (0.0-0.2) Sodium Level 135 mmol/L (136-145) Potassium Level 4.0 mmol/L (3.5-5.1) Chloride Level 98 mmol/L (98-107) Carbon Dioxide Level 29 mmol/L (21-32) Anion Gap 8 (6-14) Blood Urea Nitrogen 37 mg/dL (7-20) Creatinine 4.1 mg/dL (0.6-1.0) Estimated GFR (Cockcroft-Gault) 13.7 Glucose Level 188 mg/dL (70-99) Calcium Level 9.6 mg/dL (8.5-10.1) Phosphorus Level 2.3 mg/dL (2.6-4.7) Albumin 2.4 g/dL (3.4-5.0) Test 01/15/18 08:49 01/15/18 14:37 01/15/18 17:19 01/15/18 21:29 Glucose (Fingerstick) 172 mg/dL (70-99) 109 mg/dL (70-99) 107 mg/dL (70-99) 107 mg/dL (70-99) Test 01/16/18 06:40 01/16/18 08:13 White Blood Count 17.5 x10^3/uL (4.0-11.0) Red Blood Count 2.68 x10^6/uL (3.50-5.40) Hemoglobin 7.7 g/dL (12.0-15.5) Hematocrit 23.0 % (36.0-47.0) Mean Corpuscular Volume 86 fL (79-100) Mean Corpuscular Hemoglobin 29 pg (25-35) Mean Corpuscular Hemoglobin Concent 33 g/dL (31-37) Red Cell Distribution Width 19.0 % (11.5-14.5) Platelet Count 168 x10^3/uL (140-400) Neutrophils (%) (Auto) 95 % (31-73) Lymphocytes (%) (Auto) 4 % (24-48) Monocytes (%) (Auto) 1 % (0-9) Eosinophils (%) (Auto) 0 % (0-3) Basophils (%) (Auto) 0 % (0-3) Neutrophils # (Auto) 16.5 x10^3uL (1.8-7.7) Lymphocytes # (Auto) 0.6 x10^3/uL (1.0-4.8) Monocytes # (Auto) 0.2 x10^3/uL (0.0-1.1) Eosinophils # (Auto) 0.1 x10^3/uL (0.0-0.7) Basophils # (Auto) 0.1 x10^3/uL (0.0-0.2) Sodium Level 135 mmol/L (136-145) Potassium Level 3.8 mmol/L (3.5-5.1) Chloride Level 99 mmol/L (98-107) Carbon Dioxide Level 30 mmol/L (21-32) Anion Gap 6 (6-14) Blood Urea Nitrogen 21 mg/dL (7-20) Creatinine 3.0 mg/dL (0.6-1.0) Estimated GFR (Cockcroft-Gault) 19.6 Glucose Level 110 mg/dL (70-99) Calcium Level 9.4 mg/dL (8.5-10.1) Phosphorus Level 2.0 mg/dL (2.6-4.7) Albumin 2.1 g/dL (3.4-5.0) Glucose (Fingerstick) 92 mg/dL (70-99) Laboratory Tests Test 01/15/18 14:37 01/15/18 17:19 01/15/18 21:29 01/16/18 06:40 Glucose (Fingerstick) 109 mg/dL (70-99) 107 mg/dL (70-99) 107 mg/dL (70-99) White Blood Count 17.5 x10^3/uL (4.0-11.0) Red Blood Count 2.68 x10^6/uL (3.50-5.40) Hemoglobin 7.7 g/dL (12.0-15.5) Hematocrit 23.0 % (36.0-47.0) Mean Corpuscular Volume 86 fL (79-100) Mean Corpuscular Hemoglobin 29 pg (25-35) Mean Corpuscular Hemoglobin Concent 33 g/dL (31-37) Red Cell Distribution Width 19.0 % (11.5-14.5) Platelet Count 168 x10^3/uL (140-400) Neutrophils (%) (Auto) 95 % (31-73) Lymphocytes (%) (Auto) 4 % (24-48) Monocytes (%) (Auto) 1 % (0-9) Eosinophils (%) (Auto) 0 % (0-3) Basophils (%) (Auto) 0 % (0-3) Neutrophils # (Auto) 16.5 x10^3uL (1.8-7.7) Lymphocytes # (Auto) 0.6 x10^3/uL (1.0-4.8) Monocytes # (Auto) 0.2 x10^3/uL (0.0-1.1) Eosinophils # (Auto) 0.1 x10^3/uL (0.0-0.7) Basophils # (Auto) 0.1 x10^3/uL (0.0-0.2) Sodium Level 135 mmol/L (136-145) Potassium Level 3.8 mmol/L (3.5-5.1) Chloride Level 99 mmol/L (98-107) Carbon Dioxide Level 30 mmol/L (21-32) Anion Gap 6 (6-14) Blood Urea Nitrogen 21 mg/dL (7-20) Creatinine 3.0 mg/dL (0.6-1.0) Estimated GFR (Cockcroft-Gault) 19.6 Glucose Level 110 mg/dL (70-99) Calcium Level 9.4 mg/dL (8.5-10.1) Phosphorus Level 2.0 mg/dL (2.6-4.7) Albumin 2.1 g/dL (3.4-5.0) Test 01/16/18 08:13 Glucose (Fingerstick) 92 mg/dL (70-99) Meds Current Medications Acetaminophen (Tylenol) 650 mg TID PO Last administered on 01/16/18at 08:47; Start 01/15/18 at 14:00 Metoclopramide HCl (Reglan Vial) 5 mg PRN Q6HRS PRN IV NAUSEA/VOMITING; Start 01/15/18 at 16:45 Assessment Assessment Assessment FINAL DIAGNOSIS: 1. Chest pain - chest wall MS pain not costochondritis- sternal incision pain 2. LLL pneumonia HCFA gram - gram + with sepsis POA 3. sepsis - LLL pneumonia/ probable infected pressure wound sacral/buttocks 4. metabolic encephalopathy 5. acute on chronic anemia ESRD 6. Chest pain with h/o CABG 11/2017 8. Pressure wound coccyx sacrum with black eschar 9. abnormal troponin with h/o NSTEMI 10. End-stage renal disease, on hemodialysis TTS 11. 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 12. History of hyperparathyroidism secondary to end-stage renal disease. 13. Hyperlipidemia. 14. Severe pulmonary hypertension. 15. Asthma. 16. Gastroesophageal reflux disease. 17. CAD with [place] unknown age and + small ischemia per [facility] medical management with recent CABG 18. Negative hepatitis C. 19. moderate severe depression recurrent 20. DM II insulin gastroparesis, ESRD 21. severe PCL malnutrition with decreased po intake 22. moderate weakness and debility 23, depression 24. secondary hyperparathyroidism 25. post op CABG L leg paralysis post op 26. Diastolic congestive heart failure with preserved ejection fraction not acute 27. severe PCL malnutrition with underlying moderate PCL malnutrition 28. h/o recent code blue 29. infected sacral ulcer POA s/p debridement to muscle 01/12/18 PLAN: chest pain cardiology following Admit troponin 0.046 leukocytosis/ fever/ question infiltrate LLL Chronic LLL effusion pulmonary following - no further thoracentesis at this time CT chest w/o contrast pending fever/leukocytosis Admit WBC 21.7 today 20.9 ESR 35 CRP 20.9 Pre Calcitonin 2.05 ID following Vancomycin zosyn Prelim BC 1 or 7 + for gram + cocci Anemia/thrombocytopenia Admit Hgb 7.3 decreased to 6.4 and today 7.3 post 1U PRC thrombocytopenia Admit 215 today 123 - monitor - r/t infectious process/ antibiotics Severe depression Zoloft continues pysch consult had been ordered [facility] ESRD hemodialysis continued in patient DVT/GI prophylaxis SCD/JEN PPI Screen LTAC 01/11/18 chest wall pain - improved with Voltaren Gel - CT chest w/o noted mild edema identified in the subcutaneous region of the chest similar to prior exam. pressure wound - wound care note reviewed - will obtain surgical consult to eval for debridement - local wound care started sepsis pneumonia - lab pending - Tm 100.7F last 24 hours - ID following - on zosyn and Vanco abnormal CXR -CT chest 01/10- Left lower lobe lung consolidation with air bronchograms identified likely pneumonia or postobstructive atelectasis. ESRD - HD Admit wt 191# today 185.56# - DM II - BS 81-89 Await [facility] screen Labs pending For further plan of care, please refer to the orders. 01/12/18 wound - to OR today for debridement. continue IV antibiotics sepsis - pneumonia/probable infected pressure wound - Zosyn Vanco continue - fever improved. DM - BS 80-169 encephalopathy - improving slowly Pain control - will begin fentanyl 50mcg q4hr prn pain and continue lortab q8hr prn ESRD - dialysis continues wt. today 179.56 PICC ordered 01/11- nephrology concerned regarding length of need - ID contacted by staff - change order to central line - anesthesia contacted - will insert in surgery. For more details regarding further plans, please refer to the orders. 01/13/18 wound - IV antibiotics zosyn/vanc and micafungin added 01/12. Procedure 01/13/[address] Coulter: Excisional debridement of skin, subcutaneous tissue, muscle 5 cm sacral ulcer with necrotic tissue extending down through skin, subcutaneous tissue to muscle, no bony involvement sepsis - pneumonia/probable infected pressure wound - Zosyn Vanco continue - micafungin added 01/12 DM - 115-205 Anemia - Hgb 7.3 thrombocytopenia r/t med/infection - Admit Plt 215 -lowest 01/12 126 and today improved to 161 encephalopathy - improving slowly Pain control - will begin fentanyl 50mcg q4hr prn pain and continue lortab q8hr prn - less moaning ESRD - dialysis continues wt. today 185.06 [facility] Screen in process. For more details regarding further plans, please refer to the orders. 01/13 LLL pneumonia/pleural effusion - CXR 01/12-worsening infiltrate, effusion wounds - wound care, now with wound vac sepsis - IV Zosyn/Vanco changed to meropenem/zyvox and micafungin continued. leukocytosis - WBC 22.3 ( steroid during surgery) anemia - Hgb 7.2 DM - 151-208 metabolic encephalopathy with underlying severe depression severe depression - currently Zoloft which has been given chronically - consider changing to Wellbutrin - defer to Dr. Dang [facility] denied admission to LTAC - SW requesting peer to peer between [facility] MD and Dr. Dang Refer to Dr. Bright recommendations 01/15/18 Patient vomited this morning. Vomiting is multifactorial. Medications reviewed. Blood pressure is high when she was in distress. Patient was yelling last night. She remains depressed. Leukocytosis is improving. Continue wound care. Decreased her scheduled dose of Tylenol because she is also getting hydrocodone with acetaminophen. Prognosis remains poor. Continue wound care. January 16, 2018 Recurrent vomiting obtain x-rays of the abdomen. Abdomen clinically is benign. This may be due to medications and multifactorial. AgitationI will use a very small dose of Seroquel at bedtime and when necessary Seroquel. DepressionZoloft is not effective and may be also adding to issues such as anxiety and vomiting. I will decrease the dose of Zoloft to 50 mg daily. Leukocytosis is slowly improving. Continue wound care. For more details regarding further plans, please refer to the orders. For more details regarding further plans, please refer to the orders. Plan Plan For more details regarding further plans, please refer to the orders. Nutrition Consultation Dietary Evaluation: Recommendations by RD: Protein supplementation Comments: REC Glucerna TID Will add ADA diet restriction to current renal diet per pmhx Continue w/tiffani-kapil Expected Outcomes/Goals: PO intake to meet >75% est needs Malnutrition Findings: Food and Nutrition Intake (Mod: <75% est energy req 7days Weight Status: Overweight Plan Plan For more details regarding further plans, please refer to the orders. Nutrition Consultation Dietary Evaluation: Recommendations by RD: Protein supplementation, PPN/TPN Comments: Continue Glucerna TID Will liberalize diet to regular to promote po intake/provide more food options Continue w/tiffani-kapil REC PPN to supplement poor PO intake Expected Outcomes/Goals: PO intake to meet >75% est needs - not met, goal ongoing Malnutrition Findings: Food and Nutrition Intake (Mod: <75% est energy req 7days Weight Status: Overweight GAURAV DANG MD Jan 16, 2018 08:55
--- NOTE | 2018-01-16 10:19 | RAD ---
KUB, 01/16/2018: HISTORY: Nausea and vomiting, abdominal pain Comparison is made to a study from 07/15/2017. The abdominal gas pattern is unremarkable. Surgical clips are present in the right upper quadrant. Scattered vascular calcifications are present. A midline pelvic density probably represents a mildly distended urinary bladder. IMPRESSION: 1. Probable mild bladder distention. 2. Otherwise no acute abnormality is detected. Electronically signed by: Alexy Petersen MD (01/16/2018 10:15 AM) [facility]
[2018-01-16] MEDS: MICAFUNGIN 100 MG in IV DEXTROSE 5% 100ML 100 ML IV SCH (10:26)
[2018-01-16 10:40] LABS: % BANDS 2 % (0-9); % LYMPHS 4 % (24-48); % MONOS 3 % (0-10); % SEGS 91 % (35-66); ANISOCYTOSIS SLIGHT; PLT ESTIMATE ADEQUATE (ADEQUATE)
[2018-01-16 11:00] VITALS: BP 146/63
--- NOTE | 2018-01-16 11:05 | PDOC ---
Renal-Progress Notes Subjective Notes Notes NONE History of Present Illness Hx of present illness NO CHANGE Vitals Vitals Vital Signs Date Time Temp Pulse Resp B/P (MAP) Pulse Ox O2 Delivery O2 Flow Rate FiO2 01/16/18 08:48 67 168/68 01/16/18 08:10 Room Air 01/16/18 07:00 98.8 16 98 98.8 Weight Weight [ ] I.O. Intake and Output Intake and Output 01/16/18 07:00 Intake Total 60 ml Balance 60 ml Intake Oral 60 ml # Bowel Movements 2 Labs Labs Laboratory Tests Test 01/15/18 14:37 01/15/18 17:19 01/15/18 21:29 01/16/18 06:40 Glucose (Fingerstick) 109 mg/dL (70-99) 107 mg/dL (70-99) 107 mg/dL (70-99) White Blood Count 17.5 x10^3/uL (4.0-11.0) Red Blood Count 2.68 x10^6/uL (3.50-5.40) Hemoglobin 7.7 g/dL (12.0-15.5) Hematocrit 23.0 % (36.0-47.0) Mean Corpuscular Volume 86 fL (79-100) Mean Corpuscular Hemoglobin 29 pg (25-35) Mean Corpuscular Hemoglobin Concent 33 g/dL (31-37) Red Cell Distribution Width 19.0 % (11.5-14.5) Platelet Count 168 x10^3/uL (140-400) Neutrophils (%) (Auto) 95 % (31-73) Lymphocytes (%) (Auto) 4 % (24-48) Monocytes (%) (Auto) 1 % (0-9) Eosinophils (%) (Auto) 0 % (0-3) Basophils (%) (Auto) 0 % (0-3) Neutrophils # (Auto) 16.5 x10^3uL (1.8-7.7) Lymphocytes # (Auto) 0.6 x10^3/uL (1.0-4.8) Monocytes # (Auto) 0.2 x10^3/uL (0.0-1.1) Eosinophils # (Auto) 0.1 x10^3/uL (0.0-0.7) Basophils # (Auto) 0.1 x10^3/uL (0.0-0.2) Segmented Neutrophils % 91 % (35-66) Band Neutrophils % 2 % (0-9) Lymphocytes % 4 % (24-48) Monocytes % 3 % (0-10) Platelet Estimate Adequate (ADEQUATE) Anisocytosis Slight Sodium Level 135 mmol/L (136-145) Potassium Level 3.8 mmol/L (3.5-5.1) Chloride Level 99 mmol/L (98-107) Carbon Dioxide Level 30 mmol/L (21-32) Anion Gap 6 (6-14) Blood Urea Nitrogen 21 mg/dL (7-20) Creatinine 3.0 mg/dL (0.6-1.0) Estimated GFR (Cockcroft-Gault) 19.6 Glucose Level 110 mg/dL (70-99) Calcium Level 9.4 mg/dL (8.5-10.1) Phosphorus Level 2.0 mg/dL (2.6-4.7) Albumin 2.1 g/dL (3.4-5.0) Test 01/16/18 08:13 Glucose (Fingerstick) 92 mg/dL (70-99) Micro Micro Microbiology 01/08/18 Blood Culture - Final, Complete Review of Systems Constitutional: yes: malaise, alert Ears/Nose/Throat: Yes: no symptom reported Eyes: Yes: no symptom reported Pulmonary: Yes no symptom reported Cardiovascular: Yes no symptom reported Gastrointestional: Yes: no symptom reported Genitourinary: Yes: no symptom reported Musculoskeletal: Yes: no symptom reported Skin: Yes no symptom reported Psychiatric/Neurological: Yes: no symptom reported Endocrine: Yes: no symptom reported Physical Exam General Appearance: no apparent distress Skin: warm Heart: S1S2 Abdomen: soft, bowel sounds present Genitourinary: bladder flat Extremities: pulses present Neurology: alert, oriented Musculoskeletal: Osteoarthritis Assessment Assessment IMP LEUCOCYTOSIS SEPSIS ANEMIA ESRD PLAN ANTIBIOTICS HD WEDNESDAY TING REYNA MD Jan 16, 2018 11:05
--- NOTE | 2018-01-16 12:33 | PDOC ---
GI PROGRESS NOTES Date Date/Time DATE: 01/16/18 TIME: 12:29 Subjective Subjective reports emesis with pill this am and poor appetite- not eating anything and barely taking any Glucerna either Objective Vitals Vital Signs Date Time Temp Pulse Resp B/P (MAP) Pulse Ox O2 Delivery O2 Flow Rate FiO2 01/16/18 08:48 67 168/68 01/16/18 08:47 67 168/68 01/16/18 08:46 67 168/68 01/16/18 08:46 67 168/01/16/18 08:10 Room Air 01/16/18 07:00 98.8 67 16 168/68 (101) 98 Room Air 98.8 01/16/18 04:59 18 Room Air 01/16/18 03:00 98.1 64 20 169/69 (102) 98 Room Air 98.1 01/15/18 23:49 98.9 64 22 164/72 (102) 97 Room Air 98.9 01/15/18 21:04 63 171/73 01/15/18 20:10 18 Room Air 01/15/18 19:39 20 01/15/18 19:34 Room Air 01/15/18 19:15 98.5 69 22 171/73 (105) 98 Room Air 98.5 01/15/18 17:11 62 181/71 01/15/18 15:00 98.0 62 16 181/71 (107) 99 Room Air 98.0 01/15/18 14:46 60 193/81 01/15/18 14:45 60 193/81 01/15/18 14:45 60 193/81 01/15/18 14:44 60 193/81 Labs Labs Laboratory Tests Test 01/15/18 14:37 01/15/18 17:19 01/15/18 21:29 01/16/18 06:40 Glucose (Fingerstick) 109 mg/dL (70-99) 107 mg/dL (70-99) 107 mg/dL (70-99) White Blood Count 17.5 x10^3/uL (4.0-11.0) Red Blood Count 2.68 x10^6/uL (3.50-5.40) Hemoglobin 7.7 g/dL (12.0-15.5) Hematocrit 23.0 % (36.0-47.0) Mean Corpuscular Volume 86 fL (79-100) Mean Corpuscular Hemoglobin 29 pg (25-35) Mean Corpuscular Hemoglobin Concent 33 g/dL (31-37) Red Cell Distribution Width 19.0 % (11.5-14.5) Platelet Count 168 x10^3/uL (140-400) Neutrophils (%) (Auto) 95 % (31-73) Lymphocytes (%) (Auto) 4 % (24-48) Monocytes (%) (Auto) 1 % (0-9) Eosinophils (%) (Auto) 0 % (0-3) Basophils (%) (Auto) 0 % (0-3) Neutrophils # (Auto) 16.5 x10^3uL (1.8-7.7) Lymphocytes # (Auto) 0.6 x10^3/uL (1.0-4.8) Monocytes # (Auto) 0.2 x10^3/uL (0.0-1.1) Eosinophils # (Auto) 0.1 x10^3/uL (0.0-0.7) Basophils # (Auto) 0.1 x10^3/uL (0.0-0.2) Segmented Neutrophils % 91 % (35-66) Band Neutrophils % 2 % (0-9) Lymphocytes % 4 % (24-48) Monocytes % 3 % (0-10) Platelet Estimate Adequate (ADEQUATE) Anisocytosis Slight Sodium Level 135 mmol/L (136-145) Potassium Level 3.8 mmol/L (3.5-5.1) Chloride Level 99 mmol/L (98-107) Carbon Dioxide Level 30 mmol/L (21-32) Anion Gap 6 (6-14) Blood Urea Nitrogen 21 mg/dL (7-20) Creatinine 3.0 mg/dL (0.6-1.0) Estimated GFR (Cockcroft-Gault) 19.6 Glucose Level 110 mg/dL (70-99) Calcium Level 9.4 mg/dL (8.5-10.1) Phosphorus Level 2.0 mg/dL (2.6-4.7) Albumin 2.1 g/dL (3.4-5.0) Test 01/16/18 08:13 Glucose (Fingerstick) 92 mg/dL (70-99) Imaging Imaging KUB- negative for ileus Physical Exam Physical Exam chest- clear abd- soft non tender Assessment Assessment Vomitng- likely multifactorial- meds, ESRD, meds, DM, delayed gastric emptying but must consider gastris, PUD etc Plan Plan ordered reglan prn yesterday but not yet given- will now give scheduled low dose - 5 mg BID- based on ESRD and other meds- monitor response Dr. Youngblood will assume her GI care tomorrow CITLALI HUDSON MD Jan 16, 2018 12:33
[2018-01-16 15:00] VITALS: BP 144/67
[2018-01-16] MEDS: METOCLOPRAMIDE HCL 10 MG/2 ML VIAL. IV SCH (17:54)
[2018-01-16 19:35] VITALS: BP 168/66
[2018-01-16] MEDS: DARBEPOETIN ALFA 60 MCG/0.3 ML DISP.SYRIN. SQ SCH (22:08)
[2018-01-16] MEDS: MONTELUKAST SODIUM 10 MG TABLET. PO SCH (22:08)
[2018-01-16] MEDS: QUEtiapine 25 MG TABLET. PO SCH (22:09)
[2018-01-16 23:15] VITALS: BP 87/48
[2018-01-17 02:35] VITALS: BP 147/65
[2018-01-17] MEDS: METOCLOPRAMIDE HCL 10 MG/2 ML VIAL. IV SCH ×2 (06:09→17:26)
[2018-01-17 07:00] VITALS: BP 147/66
--- NOTE | 2018-01-17 08:20 | PDOC ---
RUT EDWARDS DIRECTOR OF DEVELOPMENT AND MARKETING 01/17/18 0820: IM PROGRESS NOTES- Subjective Subjective weak, pain controlled Objective Objective no distress Vitals Vital Signs Date Time Temp Pulse Resp B/P (MAP) Pulse Ox O2 Delivery O2 Flow Rate FiO2 01/17/18 02:35 99.9 72 18 147/65 (92) 96 Room Air 99.9 Input & Output Intake and Output 01/17/18 07:00 Intake Total 200 ml Balance 200 ml Intake Oral 200 ml # Bowel Movements 1 Physical Exam Physical Exam General appearance - alert, ill appearing, and in no distress Mental Status - alert, oriented person, place mildly confused, depressed Head - normal Chest - clear to auscultation, decreased bases, + chest wall tenderness Heart - S1 and S2 normal Abdomen - soft, nontender, nondistended,obese, BS +, no guarding no rigidity Neurological - no acute neurological deficit, wakens to name but falls asleep easily Extremities - + edema Skin - warm and dry, wound sacral buttocks dressing in situ Labs Laboratory Tests Test 01/15/18 08:49 01/15/18 14:37 01/15/18 17:19 01/15/18 21:29 Glucose (Fingerstick) 172 mg/dL (70-99) 109 mg/dL (70-99) 107 mg/dL (70-99) 107 mg/dL (70-99) Test 01/16/18 06:40 01/16/18 08:13 01/16/18 12:26 01/16/18 17:36 White Blood Count 17.5 x10^3/uL (4.0-11.0) Red Blood Count 2.68 x10^6/uL (3.50-5.40) Hemoglobin 7.7 g/dL (12.0-15.5) Hematocrit 23.0 % (36.0-47.0) Mean Corpuscular Volume 86 fL (79-100) Mean Corpuscular Hemoglobin 29 pg (25-35) Mean Corpuscular Hemoglobin Concent 33 g/dL (31-37) Red Cell Distribution Width 19.0 % (11.5-14.5) Platelet Count 168 x10^3/uL (140-400) Neutrophils (%) (Auto) 95 % (31-73) Lymphocytes (%) (Auto) 4 % (24-48) Monocytes (%) (Auto) 1 % (0-9) Eosinophils (%) (Auto) 0 % (0-3) Basophils (%) (Auto) 0 % (0-3) Neutrophils # (Auto) 16.5 x10^3uL (1.8-7.7) Lymphocytes # (Auto) 0.6 x10^3/uL (1.0-4.8) Monocytes # (Auto) 0.2 x10^3/uL (0.0-1.1) Eosinophils # (Auto) 0.1 x10^3/uL (0.0-0.7) Basophils # (Auto) 0.1 x10^3/uL (0.0-0.2) Segmented Neutrophils % 91 % (35-66) Band Neutrophils % 2 % (0-9) Lymphocytes % 4 % (24-48) Monocytes % 3 % (0-10) Platelet Estimate Adequate (ADEQUATE) Anisocytosis Slight Sodium Level 135 mmol/L (136-145) Potassium Level 3.8 mmol/L (3.5-5.1) Chloride Level 99 mmol/L (98-107) Carbon Dioxide Level 30 mmol/L (21-32) Anion Gap 6 (6-14) Blood Urea Nitrogen 21 mg/dL (7-20) Creatinine 3.0 mg/dL (0.6-1.0) Estimated GFR (Cockcroft-Gault) 19.6 Glucose Level 110 mg/dL (70-99) Calcium Level 9.4 mg/dL (8.5-10.1) Phosphorus Level 2.0 mg/dL (2.6-4.7) Albumin 2.1 g/dL (3.4-5.0) Glucose (Fingerstick) 92 mg/dL (70-99) 111 mg/dL (70-99) 97 mg/dL (70-99) Test 01/16/18 20:54 Glucose (Fingerstick) 97 mg/dL (70-99) Laboratory Tests Test 01/16/18 08:13 01/16/18 12:26 01/16/18 17:36 01/16/18 20:54 Glucose (Fingerstick) 92 mg/dL (70-99) 111 mg/dL (70-99) 97 mg/dL (70-99) 97 mg/dL (70-99) Meds Current Medications Metoclopramide HCl (Reglan Vial) 5 mg [id number] IV Last administered on 01/17/18at 06:09; Start 01/16/18 at 18:00 Quetiapine Fumarate (SEROquel) 12.5 mg PRN Q6HRS PRN PO AGITATION; Start at 08:45 Quetiapine Fumarate (SEROquel) 12.5 mg QHS PO Last administered on 01/16/18at 22 :09; Start 01/16/18 at 21:00 Sertraline HCl (Zoloft) 50 mg DAILY PO ; Start 01/16/18 at 09:00 Assessment Assessment Assessment FINAL DIAGNOSIS: 1. Chest pain - chest wall MS pain not costochondritis- sternal incision pain 2. LLL pneumonia HCFA gram - gram + with sepsis POA 3. sepsis - LLL pneumonia/ probable infected pressure wound sacral/buttocks 4. metabolic encephalopathy 5. acute on chronic anemia ESRD 6. Chest pain with h/o CABG 11/2017 8. Pressure wound coccyx sacrum with black eschar 9. abnormal troponin with h/o NSTEMI 10. End-stage renal disease, on hemodialysis TTS 11. 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 12. History of hyperparathyroidism secondary to end-stage renal disease. 13. Hyperlipidemia. 14. Severe pulmonary hypertension. 15. Asthma. 16. Gastroesophageal reflux disease. 17. CAD with [place] unknown age and + small ischemia per [facility] medical management with recent CABG 18. Negative hepatitis C. 19. moderate severe depression recurrent 20. DM II insulin gastroparesis, ESRD 21. severe PCL malnutrition with decreased po intake 22. moderate weakness and debility 23, depression 24. secondary hyperparathyroidism 25. post op CABG L leg paralysis post op 26. Diastolic congestive heart failure with preserved ejection fraction not acute 27. severe PCL malnutrition with underlying moderate PCL malnutrition 28. h/o recent code blue 29. infected sacral ulcer POA s/p debridement to muscle 01/12/18 PLAN: chest pain cardiology following Admit troponin 0.046 leukocytosis/ fever/ question infiltrate LLL Chronic LLL effusion pulmonary following - no further thoracentesis at this time CT chest w/o contrast pending fever/leukocytosis Admit WBC 21.7 today 20.9 ESR 35 CRP 20.9 Pre Calcitonin 2.05 ID following Vancomycin zosyn Prelim BC 1 or 7 + for gram + cocci Anemia/thrombocytopenia Admit Hgb 7.3 decreased to 6.4 and today 7.3 post 1U PRC thrombocytopenia Admit 215 today 123 - monitor - r/t infectious process/ antibiotics Severe depression Zoloft continues pysch consult had been ordered [facility] ESRD hemodialysis continued in patient DVT/GI prophylaxis SCD/JEN PPI Screen LTAC 01/11/18 chest wall pain - improved with Voltaren Gel - CT chest w/o noted mild edema identified in the subcutaneous region of the chest similar to prior exam. pressure wound - wound care note reviewed - will obtain surgical consult to eval for debridement - local wound care started sepsis pneumonia - lab pending - Tm 100.7F last 24 hours - ID following - on zosyn and Vanco abnormal CXR -CT chest 01/10- Left lower lobe lung consolidation with air bronchograms identified likely pneumonia or postobstructive atelectasis. ESRD - HD Admit wt 191# today 185.56# - DM II - BS 81-89 Await [facility] screen Labs pending For further plan of care, please refer to the orders. 01/12/18 wound - to OR today for debridement. continue IV antibiotics sepsis - pneumonia/probable infected pressure wound - Zosyn Vanco continue - fever improved. DM - BS 80-169 encephalopathy - improving slowly Pain control - will begin fentanyl 50mcg q4hr prn pain and continue lortab q8hr prn ESRD - dialysis continues wt. today 179.56 PICC ordered 01/11- nephrology concerned regarding length of need - ID contacted by staff - change order to central line - anesthesia contacted - will insert in surgery. For more details regarding further plans, please refer to the orders. 01/13/18 wound - IV antibiotics zosyn/vanc and micafungin added 01/12. Procedure 01/13/[address] Coulter: Excisional debridement of skin, subcutaneous tissue, muscle 5 cm sacral ulcer with necrotic tissue extending down through skin, subcutaneous tissue to muscle, no bony involvement sepsis - pneumonia/probable infected pressure wound - Zosyn Vanco continue - micafungin added 01/12 DM - 115-205 Anemia - Hgb 7.3 thrombocytopenia r/t med/infection - Admit Plt 215 -lowest 01/12 126 and today improved to 161 encephalopathy - improving slowly Pain control - will begin fentanyl 50mcg q4hr prn pain and continue lortab q8hr prn - less moaning ESRD - dialysis continues wt. today 185.06 [facility] Screen in process. For more details regarding further plans, please refer to the orders. 01/14 LLL pneumonia/pleural effusion - CXR 01/12-worsening infiltrate, effusion wounds - wound care, now with wound vac sepsis - IV Zosyn/Vanco changed to meropenem/zyvox and micafungin continued. leukocytosis - WBC 22.3 ( steroid during surgery) anemia - Hgb 7.2 DM - 151-208 metabolic encephalopathy with underlying severe depression severe depression - currently Zoloft which has been given chronically - consider changing to Wellbutrin - defer to Dr. Ng [facility] denied admission to LTAC - requesting peer to peer between [facility] MD and Dr. Ng Refer to Dr. Bright recommendations 01/15/18 Patient vomited this morning. Vomiting is multifactorial. Medications reviewed. Blood pressure is high when she was in distress. Patient was yelling last night. She remains depressed. Leukocytosis is improving. Continue wound care. Decreased her scheduled dose of Tylenol because she is also getting hydrocodone with acetaminophen. Prognosis remains poor. Continue wound care. January 16, 2018 Recurrent vomiting obtain x-rays of the abdomen. Abdomen clinically is benign. This may be due to medications and multifactorial. AgitationI will use a very small dose of Seroquel at bedtime and when necessary Seroquel. DepressionZoloft is not effective and may be also adding to issues such as anxiety and vomiting. I will decrease the dose of Zoloft to 50 mg daily. Leukocytosis is slowly improving. Continue wound care. For more details regarding further plans, please refer to the orders. For more details regarding further plans, please refer to the orders. 01/17/18 severe malnutrition - minimal appetite, continues with nausea, Reglan 5mg bid with q6hr prn n/v - may ETF per dobhoff if continues refusing food, meds - wound healing/weakness severe depression - Zoloft decreased to 50mg daily per Dr. Ng note 01/16 encephalopathy - Seroquel 12.5mg at hs and q6hr prn leukocytosis - CBC pending ESRD - BMP pending. sepsis - zyvox, meropenem and micafungin continues. pneumonia - CXR in AM severe weakness and debility - PT OT ordered. For further plan of care,please refer to the orders. Plan Plan For more details regarding further plans, please refer to the orders. Nutrition Consultation Dietary Evaluation: Recommendations by RD: Protein supplementation, PPN/TPN Comments: Continue Glucerna TID Will liberalize diet to regular to promote po intake/provide more food options Continue w/tiffani-kapil REC PPN to supplement poor PO intake Expected Outcomes/Goals: PO intake to meet >75% est needs - not met, goal ongoing Malnutrition Findings: Food and Nutrition Intake (Mod: <75% est energy req 7days Weight Status: Overweight GAURAV NG MD 01/17/18 0922: IM PROGRESS NOTES- Assessment Assessment Patient is refusing to eat. She did not have any further vomiting. Discussed with staff. Consider adding Wellbutrin tomorrow. Encouraged patient to eat and take medications. I will hold off on Dobbhoff tube feeding as she may get more agitated and tried to pull it out. Use when necessary Seroquel. Prognosis is very poor. Today's labs are pending. The patient was seen and examined by me. Chart reviewed and plan of care formulated. Discussed with, reviewed and agree with [facility]'s notes, plan of care and orders with modifications as necessary. For more details regarding further plans, please refer to the orders. RUT EDWARDS APRN Jan 17, 2018 08:20 GAURAV NG MD Jan 17, 2018 09:22
--- NOTE | 2018-01-17 08:27 | PDOC ---
Infectious Disease Note Subjective Subjective pt says she is ok ROS ROS no n/v/d/sob Vital Sign Vital Signs Vital Signs Date Time Temp Pulse Resp B/P (MAP) Pulse Ox O2 Delivery O2 Flow Rate FiO2 01/17/18 02:35 99.9 72 18 147/65 (92) 96 Room Air 99.9 Physical Exam PHYSICAL EXAM GENERAL: NAD, alert and moaning but actually looks better HEENT: Normal conjunctivae. Oral mucosa is pink and dry. No thrush. NECK: No JVD LUNGS: Diminished aeration in the bases. Nonlabored. HEART: S1 and S2. ABDOMEN: Obese. Bowel sounds active. Soft, nontender. EXTREMITIES: 1-2+ edema in lower extremities bilaterally. No cyanosis. SKIN: Warm without generalized rash. Vac in place. Slightly on her right side. Chest wound with scab and open but clean area at superior aspect LUE, AV fistula unremarkable. RIJ - clean NEUROLOGIC: Alert and answering questions Labs Lab Laboratory Tests Test 01/16/18 12:26 01/16/18 17:36 01/16/18 20:54 01/17/18 08:04 Glucose (Fingerstick) 111 mg/dL (70-99) 97 mg/dL (70-99) 97 mg/dL (70-99) 94 mg/dL (70-99) Micro Microbiology 01/08/18 Blood Culture - Final, Complete Objective Assessment 1. Leukocytosis - stable but also s/p PRBCs. Now post op and s/p dexamethasone 01/12 - better 2. Fever - improved. 3. Pressure wounds of sacral and left ischial areas, present on admission - s/ p I and D 01/12 - no bone 4. H/o Left pleural effusion now ? pneumonia on CT. 5. Acute anemia. 6. Chronic kidney disease, on hemodialysis via arteriovenous fistula. 7. Status post coronary artery bypass grafting in November 2017 at [facility]. 8. Chronic heart failure. 9. Diabetes mellitus, type 2. 10. History of cerebrovascular accident with left-sided weakness and is chair bound. 11. 7 bottles + 01/08 Severe depression Plan Plan of Care Cont Meropenem/Zyvox/ micafungin today f/u am labs and BC with 06/13 positive Wound care eval of sternal wound Local wound care and offloading Would benefit from LTAC ability to care for wounds/administer IV abx but also Psych availability given her severe depression D/w nursing. ILIANA BA MD Jan 17, 2018 08:26
[2018-01-17] MEDS: PANTOPRAZOLE 40 MG TABLET.DR. PO SCH (08:43)
[2018-01-17] MEDS: FOLIC/VIT B COMP W-C (RENAL) TABLET. PO SCH (08:43)
[2018-01-17] MEDS: LINEZOLID 600 MG TABLET PO SCH ×2 (08:43→22:10)
[2018-01-17] MEDS: ACETAMINOPHEN 325 MG TABLET. PO SCH ×3 (08:43→22:10)
[2018-01-17] MEDS: LIPASE/PROTEAS/AMYLAS 10/32/42 CAPSULE.DR. PO SCH ×3 (08:43→17:00)
[2018-01-17] MEDS: SERTRALINE 50 MG TABLET. PO SCH (08:44)
[2018-01-17] MEDS: LACTOBACILLUS RHAMNOSUS GG 1 CAPSULE. PO SCH ×2 (08:44→22:08)
[2018-01-17] MEDS: CHOLECALCIFEROL (VITAMIN D3) 1,000 UNIT TABLET PO SCH (08:44)
[2018-01-17] MEDS: busPIRone 5 MG TABLET. PO SCH ×3 (08:44→22:08)
[2018-01-17] MEDS: MINOXIDIL 2.5 MG TABLET PO SCH ×2 (08:45→22:09)
[2018-01-17] MEDS: LOSARTAN POTASSIUM 50 MG TABLET. PO SCH (08:46)
[2018-01-17] MEDS: ISOSORBIDE MONONITRATE ER 30 MG TAB.ER.24H PO SCH (08:47)
[2018-01-17] MEDS: MEROPENEM 500 MG in IV NORMAL SALINE 50ML 50 ML IV SCH (08:53)
[2018-01-17] MEDS: CARVEDILOL 12.5 MG TABLET. PO SCH ×2 (08:53→17:25)
[2018-01-17] MEDS: MICAFUNGIN 100 MG in IV DEXTROSE 5% 100ML 100 ML IV SCH (08:53)
[2018-01-17] MEDS: POLYETHYLENE GLYCOL 3350 17 GM PACKET. PO SCH (09:00)
[2018-01-17] MEDS: DICLOFENAC SODIUM 1% TOPICAL GEL 100GM TUBE. TP SCH ×3 (09:00→21:00)
--- NOTE | 2018-01-17 09:07 | PATHOLOGY ---
[facility] Accession Number: [id number] . 01 Material submitted: . SACRAL ULCER WOUND TISSUE . 01 Clinical history: . Sacral ulcer. . 02 Diagnosis: Skin and subcutaneous tissue, sacral ulcer debridement: - Ulcer with coagulative necrosis and acute cellulitis. . . Comment: There is no evidence of malignancy. (JPM:brad; 01/14/2018) QMS/01/17/2018 . 02 Electronically signed: . Rivre Delarosa MD, Pathologist NPI- [id number] . 01 Gross description: . Received in formalin labeled "Raven Ruiz, sacral ulcer wound tissue" is a 10.0 x 6.8 x 2.6 cm portion of dark brown skin and underlying yellow-oliver lobulated fibroadipose tissue. The skin has an 8.3 x 5.7 cm area of chou-green discoloration, and the underlying fibroadipose tissue in this area also displays chou-green discoloration. A customer sales representative section of the specimen is submitted in cassette A1. ([facility] [place]; 01/13/2018) SY/SYC . 02 Pathologist provided ICD-10: L89.159, L03.90 . 02 CPT . 240698 Performed at: 01 [facility] [address], [place] [id number] MD Gumaro Mcclelland MD Phone: [phone] Performed at: 02 [facility] [address] [place], [place] [id number] MD River Delarosa MD Phone: [phone]
[2018-01-17 09:59] LABS: BASO % 0 % (0-3); EOS # 0.1 x10^3/uL (0.0-0.7); EOS % 1 % (0-3); HEMOGLOBIN 7.5 g/dL (12.0-15.5); LYMPH % 7 % (24-48); MEAN CORPUSCULAR HEMOGLOBIN 28 pg (25-35); MEAN CORPUSCULAR HGB CONC 33 g/dL (31-37); MEAN CORPUSCULAR VOLUME 86 fL (79-100); MONO # 0.5 x10^3/uL (0.0-1.1); MONO % 4 % (0-9); NEUT # 12.8 x10^3uL (1.8-7.7); NEUT % 89 % (31-73); PLATELET COUNT 191 x10^3/uL (140-400); RED BLOOD COUNT 2.67 x10^6/uL (3.50-5.40); RED CELL DISTRIBUTION WIDTH 18.8 % (11.5-14.5); WHITE BLOOD COUNT 14.4 x10^3/uL (4.0-11.0)
--- NOTE | 2018-01-17 10:06 | PDOC ---
Subjective: Subjective: She doesn't offer much - abdomen hurts. Per RN - going to try eating much breakfast, primary has mentioned possibility of Dobhoff. Last BM 01/12? Objective: Objective: Has PO PPI, Zenpep, IV Reglan BID + PRN. Vital Signs: Vital Signs Date Time Temp Pulse Resp B/P (MAP) Pulse Ox O2 Delivery O2 Flow Rate FiO2 01/17/18 08:53 72 147/66 01/17/18 07:00 98.3 24 98 Room Air 98.3 Labs: Laboratory Tests Test 01/16/18 12:26 01/16/18 17:36 01/16/18 20:54 01/17/18 08:04 Glucose (Fingerstick) 111 mg/dL 97 mg/dL 97 mg/dL 94 mg/dL PE: GEN: NAD LUNGS: CTAB HEART: RRR ABD: NABS, does not seem too tender NEURO/PSYCH: A & O 3, flat A/P: Decreased appetite, n/v, hypoalbuminemia Depression, debility Chronic abd pain, GERD and gastroparesis -- Extensive workup ('scopes, imaging, etc.) per GI consult note in 08/2017. Continue PPI and Reglan - will review dosing/timing w/ Dr. Youngblood. Encouraged PO. ALL GONZALEZ Jan 17, 2018 10:06
[2018-01-17 10:17] LABS: CREATININE 4.3 mg/dL (0.6-1.0); GFR 12.9; POTASSIUM 3.9 mmol/L (3.5-5.1)
[2018-01-17 11:00] VITALS: BP 181/75
--- NOTE | 2018-01-17 12:54 | PDOC ---
Renal-Progress Notes Subjective Notes Notes VERY TIRED History of Present Illness Hx of present illness STABLE Vitals Vitals Vital Signs Date Time Temp Pulse Resp B/P (MAP) Pulse Ox O2 Delivery O2 Flow Rate FiO2 01/17/18 11:00 98.3 70 20 181/75 (110) 96 Room Air 98.3 Weight Weight [ ] I.O. Intake and Output Intake and Output 01/17/18 07:00 Intake Total 200 ml Balance 200 ml Intake Oral 200 ml # Bowel Movements 1 Labs Labs Laboratory Tests Test 01/16/18 17:36 01/16/18 20:54 01/17/18 08:04 01/17/18 08:40 Glucose (Fingerstick) 97 mg/dL (70-99) 97 mg/dL (70-99) 94 mg/dL (70-99) White Blood Count 14.4 x10^3/uL (4.0-11.0) Red Blood Count 2.67 x10^6/uL (3.50-5.40) Hemoglobin 7.5 g/dL (12.0-15.5) Hematocrit 23.0 % (36.0-47.0) Mean Corpuscular Volume 86 fL (79-100) Mean Corpuscular Hemoglobin 28 pg (25-35) Mean Corpuscular Hemoglobin Concent 33 g/dL (31-37) Red Cell Distribution Width 18.8 % (11.5-14.5) Platelet Count 191 x10^3/uL (140-400) Neutrophils (%) (Auto) 89 % (31-73) Lymphocytes (%) (Auto) 7 % (24-48) Monocytes (%) (Auto) 4 % (0-9) Eosinophils (%) (Auto) 1 % (0-3) Basophils (%) (Auto) 0 % (0-3) Neutrophils # (Auto) 12.8 x10^3uL (1.8-7.7) Lymphocytes # (Auto) 1.0 x10^3/uL (1.0-4.8) Monocytes # (Auto) 0.5 x10^3/uL (0.0-1.1) Eosinophils # (Auto) 0.1 x10^3/uL (0.0-0.7) Basophils # (Auto) 0.0 x10^3/uL (0.0-0.2) Sodium Level 135 mmol/L (136-145) Potassium Level 3.9 mmol/L (3.5-5.1) Chloride Level 98 mmol/L (98-107) Carbon Dioxide Level 29 mmol/L (21-32) Anion Gap 8 (6-14) Blood Urea Nitrogen 32 mg/dL (7-20) Creatinine 4.3 mg/dL (0.6-1.0) Estimated GFR (Cockcroft-Gault) 12.9 Glucose Level 92 mg/dL (70-99) Calcium Level 9.0 mg/dL (8.5-10.1) Test 01/17/18 11:52 Glucose (Fingerstick) 102 mg/dL (70-99) Micro Micro Microbiology 01/08/18 Blood Culture - Final, Complete Review of Systems Constitutional: yes: malaise, alert Ears/Nose/Throat: Yes: no symptom reported Eyes: Yes: no symptom reported Pulmonary: Yes no symptom reported Cardiovascular: Yes no symptom reported Gastrointestional: Yes: no symptom reported Genitourinary: Yes: no symptom reported Musculoskeletal: Yes: no symptom reported Skin: Yes no symptom reported Psychiatric/Neurological: Yes: no symptom reported Endocrine: Yes: no symptom reported Physical Exam General Appearance: no apparent distress Skin: warm Heart: S1S2 Abdomen: soft, bowel sounds present Genitourinary: bladder flat Extremities: pulses present Neurology: alert, oriented Musculoskeletal: Osteoarthritis Assessment Assessment IMP LEUCOCYTOSIS SEPSIS ANEMIA ESRD DM II HTN SACRAL AND ISCHIAL WOUNDS LEUCOCYTOSIS-BETTER PLAN ANTIBIOTICS HD TOMORROW TING STERN MD Jan 17, 2018 12:54
[2018-01-17 15:00] VITALS: BP 140/65
[2018-01-17 19:30] VITALS: BP 132/57
[2018-01-17] MEDS: MONTELUKAST SODIUM 10 MG TABLET. PO SCH (22:10)
[2018-01-17] MEDS: QUEtiapine 25 MG TABLET. PO SCH (22:11)
[2018-01-17 23:00] VITALS: BP 120/59
[2018-01-18 02:45] VITALS: BP 142/90
[2018-01-18] MEDS: METOCLOPRAMIDE HCL 10 MG/2 ML VIAL. IV SCH ×2 (06:24→18:05)
[2018-01-18] MEDS: HYDROcodone/APAP 7.5/325MG 1 TAB TABLET PO PRN ×2 (06:39→14:07)
[2018-01-18 06:48] LABS: BASO % 0 % (0-3); EOS # 0.1 x10^3/uL (0.0-0.7); EOS % 1 % (0-3); HEMATOCRIT 22.5 % (36.0-47.0); HEMOGLOBIN 7.5 g/dL (12.0-15.5); LYMPH # 0.9 x10^3/uL (1.0-4.8); LYMPH % 7 % (24-48); MEAN CORPUSCULAR HEMOGLOBIN 28 pg (25-35); MEAN CORPUSCULAR HGB CONC 33 g/dL (31-37); MEAN CORPUSCULAR VOLUME 85 fL (79-100); MONO # 0.5 x10^3/uL (0.0-1.1); MONO % 4 % (0-9); NEUT % 88 % (31-73); PLATELET COUNT 184 x10^3/uL (140-400); RED BLOOD COUNT 2.64 x10^6/uL (3.50-5.40); RED CELL DISTRIBUTION WIDTH 18.9 % (11.5-14.5); WHITE BLOOD COUNT 12.6 x10^3/uL (4.0-11.0)
[2018-01-18 07:00] VITALS: BP 162/69
[2018-01-18 07:01] LABS: ALBUMIN 2.1 g/dL (3.4-5.0); ALBUMIN/GLOBULIN RATIO 0.6 (1.0-1.7); CALCIUM 9.1 mg/dL (8.5-10.1); CREATININE 5.4 mg/dL (0.6-1.0); GFR 9.9; POTASSIUM 4.1 mmol/L (3.5-5.1); TOTAL BILIRUBIN 0.7 mg/dL (0.2-1.0); TOTAL PROTEIN 5.5 g/dL (6.4-8.2)
[2018-01-18] MEDS: PANTOPRAZOLE 40 MG TABLET.DR. PO SCH (07:30)
--- NOTE | 2018-01-18 07:51 | PDOC ---
Infectious Disease Note Subjective Subjective pt says she is ok ROS ROS no n/v/d/sob Vital Sign Vital Signs Vital Signs Date Time Temp Pulse Resp B/P (MAP) Pulse Ox O2 Delivery O2 Flow Rate FiO2 01/18/18 06:39 Room Air 01/18/18 02:45 98.8 71 20 142/90 (107) 98 98.8 Physical Exam PHYSICAL EXAM GENERAL: NAD, alert and moaning but actually looks better HEENT: Normal conjunctivae. Oral mucosa is pink and dry. No thrush. NECK: No JVD LUNGS: Diminished aeration in the bases. Nonlabored. HEART: S1 and S2. ABDOMEN: Obese. Bowel sounds active. Soft, nontender. EXTREMITIES: 1-2+ edema in lower extremities bilaterally. No cyanosis. SKIN: Warm without generalized rash. Vac in place. Slightly on her right side. Chest wound with scab and open but clean area at superior aspect LUE, AV fistula unremarkable. RIJ - clean NEUROLOGIC: Alert and answering questions Labs Lab Laboratory Tests Test 01/17/18 08:04 01/17/18 08:40 01/17/18 11:52 01/17/18 18:28 Glucose (Fingerstick) 94 mg/dL (70-99) 102 mg/dL (70-99) 92 mg/dL (70-99) White Blood Count 14.4 x10^3/uL (4.0-11.0) Red Blood Count 2.67 x10^6/uL (3.50-5.40) Hemoglobin 7.5 g/dL (12.0-15.5) Hematocrit 23.0 % (36.0-47.0) Mean Corpuscular Volume 86 fL (79-100) Mean Corpuscular Hemoglobin 28 pg (25-35) Mean Corpuscular Hemoglobin Concent 33 g/dL (31-37) Red Cell Distribution Width 18.8 % (11.5-14.5) Platelet Count 191 x10^3/uL (140-400) Neutrophils (%) (Auto) 89 % (31-73) Lymphocytes (%) (Auto) 7 % (24-48) Monocytes (%) (Auto) 4 % (0-9) Eosinophils (%) (Auto) 1 % (0-3) Basophils (%) (Auto) 0 % (0-3) Neutrophils # (Auto) 12.8 x10^3uL (1.8-7.7) Lymphocytes # (Auto) 1.0 x10^3/uL (1.0-4.8) Monocytes # (Auto) 0.5 x10^3/uL (0.0-1.1) Eosinophils # (Auto) 0.1 x10^3/uL (0.0-0.7) Basophils # (Auto) 0.0 x10^3/uL (0.0-0.2) Sodium Level 135 mmol/L (136-145) Potassium Level 3.9 mmol/L (3.5-5.1) Chloride Level 98 mmol/L (98-107) Carbon Dioxide Level 29 mmol/L (21-32) Anion Gap 8 (6-14) Blood Urea Nitrogen 32 mg/dL (7-20) Creatinine 4.3 mg/dL (0.6-1.0) Estimated GFR (Cockcroft-Gault) 12.9 Glucose Level 92 mg/dL (70-99) Calcium Level 9.0 mg/dL (8.5-10.1) Test 01/17/18 21:03 01/18/18 06:30 01/18/18 07:39 Glucose (Fingerstick) 85 mg/dL (70-99) 75 mg/dL (70-99) White Blood Count 12.6 x10^3/uL (4.0-11.0) Red Blood Count 2.64 x10^6/uL (3.50-5.40) Hemoglobin 7.5 g/dL (12.0-15.5) Hematocrit 22.5 % (36.0-47.0) Mean Corpuscular Volume 85 fL (79-100) Mean Corpuscular Hemoglobin 28 pg (25-35) Mean Corpuscular Hemoglobin Concent 33 g/dL (31-37) Red Cell Distribution Width 18.9 % (11.5-14.5) Platelet Count 184 x10^3/uL (140-400) Neutrophils (%) (Auto) 88 % (31-73) Lymphocytes (%) (Auto) 7 % (24-48) Monocytes (%) (Auto) 4 % (0-9) Eosinophils (%) (Auto) 1 % (0-3) Basophils (%) (Auto) 0 % (0-3) Neutrophils # (Auto) 11.0 x10^3uL (1.8-7.7) Lymphocytes # (Auto) 0.9 x10^3/uL (1.0-4.8) Monocytes # (Auto) 0.5 x10^3/uL (0.0-1.1) Eosinophils # (Auto) 0.1 x10^3/uL (0.0-0.7) Basophils # (Auto) 0.0 x10^3/uL (0.0-0.2) Sodium Level 133 mmol/L (136-145) Potassium Level 4.1 mmol/L (3.5-5.1) Chloride Level 97 mmol/L (98-107) Carbon Dioxide Level 28 mmol/L (21-32) Anion Gap 8 (6-14) Blood Urea Nitrogen 39 mg/dL (7-20) Creatinine 5.4 mg/dL (0.6-1.0) Estimated GFR (Cockcroft-Gault) 9.9 BUN/Creatinine Ratio 7 (6-20) Glucose Level 84 mg/dL (70-99) Calcium Level 9.1 mg/dL (8.5-10.1) Total Bilirubin 0.7 mg/dL (0.2-1.0) Aspartate Amino Transf (AST/SGOT) 39 U/L (15-37) Alanine Aminotransferase (ALT/SGPT) 44 U/L (14-59) Alkaline Phosphatase 424 U/L (46-116) Total Protein 5.5 g/dL (6.4-8.2) Albumin 2.1 g/dL (3.4-5.0) Albumin/Globulin Ratio 0.6 (1.0-1.7) Micro Microbiology 01/08/18 Blood Culture - Final, Complete Objective Assessment 1. Leukocytosis - stable but also s/p PRBCs. Now post op and s/p dexamethasone 01/12 - better 2. Fever - improved. 3. Pressure wounds of sacral and left ischial areas, present on admission - s/ p I and D 01/12 - no bone involvement 4. H/o Left pleural effusion now ? pneumonia on CT. 5. Acute anemia. 6. Chronic kidney disease, on hemodialysis via arteriovenous fistula. 7. Status post coronary artery bypass grafting in November 2017 at [facility]. 8. Chronic heart failure. 9. Diabetes mellitus, type 2. 10. History of cerebrovascular accident with left-sided weakness and is chair bound. 11. 06/13 bottles + 8/4 Severe depression Plan Plan of Care Cont Meropenem/Zyvox/ micafungin today f/u am labs and BC with 06/13 positive Wound care eval of sternal wound Local wound care and offloading Would benefit from LTAC ability to care for wounds/administer IV abx but also Psych availability given her severe depression change to po soon if wound cont to look good, will look at it tomorrow at vac change D/w nursing. ILIANA BA MD Jan 18, 2018 07:51
--- NOTE | 2018-01-18 08:28 | PDOC ---
[employer] 01/18/18 0828: IM PROGRESS NOTES- Subjective Subjective weak, pain controlled Objective Objective no distress Vitals Vital Signs Date Time Temp Pulse Resp B/P (MAP) Pulse Ox O2 Delivery O2 Flow Rate FiO2 01/18/18 07:00 98.2 69 18 162/69 (100) 98 Room Air 98.2 Input & Output Intake and Output 01/18/18 07:00 Intake Total 420 ml Balance 420 ml Intake Oral 420 ml Physical Exam Physical Exam General appearance - alert, ill appearing, and in no distress Mental Status - alert, oriented person, place mildly confused, depressed Head - normal Chest - clear to auscultation, decreased bases, + chest wall tenderness Heart - S1 and S2 normal Abdomen - soft, nontender, nondistended,obese, BS +, no guarding no rigidity Neurological - no acute neurological deficit, wakens to name but falls asleep easily Extremities - + edema Skin - warm and dry, wound sacral buttocks dressing in situ Labs Laboratory Tests Test 01/16/18 12:26 01/16/18 17:36 01/16/18 20:54 01/17/18 08:04 Glucose (Fingerstick) 111 mg/dL (70-99) 97 mg/dL (70-99) 97 mg/dL (70-99) 94 mg/dL (70-99) Test 01/17/18 08:40 01/17/18 11:52 01/17/18 18:28 01/17/18 21:03 White Blood Count 14.4 x10^3/uL (4.0-11.0) Red Blood Count 2.67 x10^6/uL (3.50-5.40) Hemoglobin 7.5 g/dL (12.0-15.5) Hematocrit 23.0 % (36.0-47.0) Mean Corpuscular Volume 86 fL (79-100) Mean Corpuscular Hemoglobin 28 pg (25-35) Mean Corpuscular Hemoglobin Concent 33 g/dL (31-37) Red Cell Distribution Width 18.8 % (11.5-14.5) Platelet Count 191 x10^3/uL (140-400) Neutrophils (%) (Auto) 89 % (31-73) Lymphocytes (%) (Auto) 7 % (24-48) Monocytes (%) (Auto) 4 % (0-9) Eosinophils (%) (Auto) 1 % (0-3) Basophils (%) (Auto) 0 % (0-3) Neutrophils # (Auto) 12.8 x10^3uL (1.8-7.7) Lymphocytes # (Auto) 1.0 x10^3/uL (1.0-4.8) Monocytes # (Auto) 0.5 x10^3/uL (0.0-1.1) Eosinophils # (Auto) 0.1 x10^3/uL (0.0-0.7) Basophils # (Auto) 0.0 x10^3/uL (0.0-0.2) Sodium Level 135 mmol/L (136-145) Potassium Level 3.9 mmol/L (3.5-5.1) Chloride Level 98 mmol/L (98-107) Carbon Dioxide Level 29 mmol/L (21-32) Anion Gap 8 (6-14) Blood Urea Nitrogen 32 mg/dL (7-20) Creatinine 4.3 mg/dL (0.6-1.0) Estimated GFR (Cockcroft-Gault) 12.9 Glucose Level 92 mg/dL (70-99) Calcium Level 9.0 mg/dL (8.5-10.1) Glucose (Fingerstick) 102 mg/dL (70-99) 92 mg/dL (70-99) 85 mg/dL (70-99) Test 01/18/18 06:30 01/18/18 07:39 White Blood Count 12.6 x10^3/uL (4.0-11.0) Red Blood Count 2.64 x10^6/uL (3.50-5.40) Hemoglobin 7.5 g/dL (12.0-15.5) Hematocrit 22.5 % (36.0-47.0) Mean Corpuscular Volume 85 fL (79-100) Mean Corpuscular Hemoglobin 28 pg (25-35) Mean Corpuscular Hemoglobin Concent 33 g/dL (31-37) Red Cell Distribution Width 18.9 % (11.5-14.5) Platelet Count 184 x10^3/uL (140-400) Neutrophils (%) (Auto) 88 % (31-73) Lymphocytes (%) (Auto) 7 % (24-48) Monocytes (%) (Auto) 4 % (0-9) Eosinophils (%) (Auto) 1 % (0-3) Basophils (%) (Auto) 0 % (0-3) Neutrophils # (Auto) 11.0 x10^3uL (1.8-7.7) Lymphocytes # (Auto) 0.9 x10^3/uL (1.0-4.8) Monocytes # (Auto) 0.5 x10^3/uL (0.0-1.1) Eosinophils # (Auto) 0.1 x10^3/uL (0.0-0.7) Basophils # (Auto) 0.0 x10^3/uL (0.0-0.2) Sodium Level 133 mmol/L (136-145) Potassium Level 4.1 mmol/L (3.5-5.1) Chloride Level 97 mmol/L (98-107) Carbon Dioxide Level 28 mmol/L (21-32) Anion Gap 8 (6-14) Blood Urea Nitrogen 39 mg/dL (7-20) Creatinine 5.4 mg/dL (0.6-1.0) Estimated GFR (Cockcroft-Gault) 9.9 BUN/Creatinine Ratio 7 (6-20) Glucose Level 84 mg/dL (70-99) Calcium Level 9.1 mg/dL (8.5-10.1) Total Bilirubin 0.7 mg/dL (0.2-1.0) Aspartate Amino Transf (AST/SGOT) 39 U/L (15-37) Alanine Aminotransferase (ALT/SGPT) 44 U/L (14-59) Alkaline Phosphatase 424 U/L (46-116) Total Protein 5.5 g/dL (6.4-8.2) Albumin 2.1 g/dL (3.4-5.0) Albumin/Globulin Ratio 0.6 (1.0-1.7) Glucose (Fingerstick) 75 mg/dL (70-99) Laboratory Tests Test 01/17/18 08:40 01/17/18 11:52 01/17/18 18:28 01/17/18 21:03 White Blood Count 14.4 x10^3/uL (4.0-11.0) Red Blood Count 2.67 x10^6/uL (3.50-5.40) Hemoglobin 7.5 g/dL (12.0-15.5) Hematocrit 23.0 % (36.0-47.0) Mean Corpuscular Volume 86 fL (79-100) Mean Corpuscular Hemoglobin 28 pg (25-35) Mean Corpuscular Hemoglobin Concent 33 g/dL (31-37) Red Cell Distribution Width 18.8 % (11.5-14.5) Platelet Count 191 x10^3/uL (140-400) Neutrophils (%) (Auto) 89 % (31-73) Lymphocytes (%) (Auto) 7 % (24-48) Monocytes (%) (Auto) 4 % (0-9) Eosinophils (%) (Auto) 1 % (0-3) Basophils (%) (Auto) 0 % (0-3) Neutrophils # (Auto) 12.8 x10^3uL (1.8-7.7) Lymphocytes # (Auto) 1.0 x10^3/uL (1.0-4.8) Monocytes # (Auto) 0.5 x10^3/uL (0.0-1.1) Eosinophils # (Auto) 0.1 x10^3/uL (0.0-0.7) Basophils # (Auto) 0.0 x10^3/uL (0.0-0.2) Sodium Level 135 mmol/L (136-145) Potassium Level 3.9 mmol/L (3.5-5.1) Chloride Level 98 mmol/L (98-107) Carbon Dioxide Level 29 mmol/L (21-32) Anion Gap 8 (6-14) Blood Urea Nitrogen 32 mg/dL (7-20) Creatinine 4.3 mg/dL (0.6-1.0) Estimated GFR (Cockcroft-Gault) 12.9 Glucose Level 92 mg/dL (70-99) Calcium Level 9.0 mg/dL (8.5-10.1) Glucose (Fingerstick) 102 mg/dL (70-99) 92 mg/dL (70-99) 85 mg/dL (70-99) Test 01/18/18 06:30 01/18/18 07:39 White Blood Count 12.6 x10^3/uL (4.0-11.0) Red Blood Count 2.64 x10^6/uL (3.50-5.40) Hemoglobin 7.5 g/dL (12.0-15.5) Hematocrit 22.5 % (36.0-47.0) Mean Corpuscular Volume 85 fL (79-100) Mean Corpuscular Hemoglobin 28 pg (25-35) Mean Corpuscular Hemoglobin Concent 33 g/dL (31-37) Red Cell Distribution Width 18.9 % (11.5-14.5) Platelet Count 184 x10^3/uL (140-400) Neutrophils (%) (Auto) 88 % (31-73) Lymphocytes (%) (Auto) 7 % (24-48) Monocytes (%) (Auto) 4 % (0-9) Eosinophils (%) (Auto) 1 % (0-3) Basophils (%) (Auto) 0 % (0-3) Neutrophils # (Auto) 11.0 x10^3uL (1.8-7.7) Lymphocytes # (Auto) 0.9 x10^3/uL (1.0-4.8) Monocytes # (Auto) 0.5 x10^3/uL (0.0-1.1) Eosinophils # (Auto) 0.1 x10^3/uL (0.0-0.7) Basophils # (Auto) 0.0 x10^3/uL (0.0-0.2) Sodium Level 133 mmol/L (136-145) Potassium Level 4.1 mmol/L (3.5-5.1) Chloride Level 97 mmol/L (98-107) Carbon Dioxide Level 28 mmol/L (21-32) Anion Gap 8 (6-14) Blood Urea Nitrogen 39 mg/dL (7-20) Creatinine 5.4 mg/dL (0.6-1.0) Estimated GFR (Cockcroft-Gault) 9.9 BUN/Creatinine Ratio 7 (6-20) Glucose Level 84 mg/dL (70-99) Calcium Level 9.1 mg/dL (8.5-10.1) Total Bilirubin 0.7 mg/dL (0.2-1.0) Aspartate Amino Transf (AST/SGOT) 39 U/L (15-37) Alanine Aminotransferase (ALT/SGPT) 44 U/L (14-59) Alkaline Phosphatase 424 U/L (46-116) Total Protein 5.5 g/dL (6.4-8.2) Albumin 2.1 g/dL (3.4-5.0) Albumin/Globulin Ratio 0.6 (1.0-1.7) Glucose (Fingerstick) 75 mg/dL (70-99) Assessment Assessment FINAL DIAGNOSIS: 1. Chest pain - chest wall MS pain not costochondritis- sternal incision pain 2. LLL pneumonia HCFA gram - gram + with sepsis POA 3. sepsis - LLL pneumonia/ probable infected pressure wound sacral/buttocks 4. metabolic encephalopathy 5. acute on chronic anemia ESRD 6. Chest pain with h/o CABG 11/2017 8. Pressure wound coccyx sacrum with black eschar 9. abnormal troponin with h/o NSTEMI 10. End-stage renal disease, on hemodialysis TTS 11. 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 12. History of hyperparathyroidism secondary to end-stage renal disease. 13. Hyperlipidemia. 14. Severe pulmonary hypertension. 15. Asthma. 16. Gastroesophageal reflux disease. 17. CAD with OH unknown age and + small ischemia per [facility] medical management with recent CABG 18. Negative hepatitis C. 19. moderate severe depression recurrent 20. DM II insulin gastroparesis, ESRD 21. severe PCL malnutrition with decreased po intake 22. moderate weakness and debility 23, depression 24. secondary hyperparathyroidism 25. post op CABG L leg paralysis post op 26. Diastolic congestive heart failure with preserved ejection fraction not acute 27. severe PCL malnutrition with underlying moderate PCL malnutrition 28. h/o recent code blue 29. infected sacral ulcer POA s/p debridement to muscle 01/12/18 PLAN: chest pain cardiology following Admit troponin 0.046 leukocytosis/ fever/ question infiltrate LLL Chronic LLL effusion pulmonary following - no further thoracentesis at this time CT chest w/o contrast pending fever/leukocytosis Admit WBC 21.7 today 20.9 ESR 35 CRP 20.9 Pre Calcitonin 2.05 ID following Vancomycin zosyn Prelim BC 1 or 7 + for gram + cocci Anemia/thrombocytopenia Admit Hgb 7.3 decreased to 6.4 and today 7.3 post 1U PRC thrombocytopenia Admit 215 today 123 - monitor - r/t infectious process/ antibiotics Severe depression Zoloft continues pysch consult had been ordered [facility] ESRD hemodialysis continued in patient DVT/GI prophylaxis SCD/JEN PPI Screen LTAC 01/11/18 chest wall pain - improved with Voltaren Gel - CT chest w/o noted mild edema identified in the subcutaneous region of the chest similar to prior exam. pressure wound - wound care note reviewed - will obtain surgical consult to eval for debridement - local wound care started sepsis pneumonia - lab pending - Tm 100.7F last 24 hours - ID following - on zosyn and Vanco abnormal CXR -CT chest 01/10- Left lower lobe lung consolidation with air bronchograms identified likely pneumonia or postobstructive atelectasis. ESRD - HD Admit wt 191# today 185.56# - DM II - BS 81-89 Await [facility] screen Labs pending For further plan of care, please refer to the orders. 01/12/18 wound - to OR today for debridement. continue IV antibiotics sepsis - pneumonia/probable infected pressure wound - Zosyn Vanco continue - fever improved. DM - BS 80-169 encephalopathy - improving slowly Pain control - will begin fentanyl 50mcg q4hr prn pain and continue lortab q8hr prn ESRD - dialysis continues wt. today 179.56 PICC ordered 01/11- nephrology concerned regarding length of need - ID contacted by staff - change order to central line - anesthesia contacted - will insert in surgery. For more details regarding further plans, please refer to the orders. 01/13/18 wound - IV antibiotics zosyn/vanc and micafungin added 01/12. Procedure 01/13/[address] Coulter: Excisional debridement of skin, subcutaneous tissue, muscle 5 cm sacral ulcer with necrotic tissue extending down through skin, subcutaneous tissue to muscle, no bony involvement sepsis - pneumonia/probable infected pressure wound - Zosyn Vanco continue - micafungin added 01/12 DM - 115-205 Anemia - Hgb 7.3 thrombocytopenia r/t med/infection - Admit Plt 215 -lowest 01/12 126 and today improved to 161 encephalopathy - improving slowly Pain control - will begin fentanyl 50mcg q4hr prn pain and continue lortab q8hr prn - less moaning ESRD - dialysis continues wt. today 185.06 [facility] Screen in process. For more details regarding further plans, please refer to the orders. 01/14 LLL pneumonia/pleural effusion - CXR 01/12-worsening infiltrate, effusion wounds - wound care, now with wound vac sepsis - IV Zosyn/Vanco changed to meropenem/zyvox and micafungin continued. leukocytosis - WBC 22.3 ( steroid during surgery) anemia - Hgb 7.2 DM - 151-208 metabolic encephalopathy with underlying severe depression severe depression - currently Zoloft which has been given chronically - consider changing to Wellbutrin - defer to Dr. Ng [facility] denied admission to LTAC - requesting peer to peer between [facility] MD and Dr. Ng Refer to Dr. Bright recommendations 01/15/18 Patient vomited this morning. Vomiting is multifactorial. Medications reviewed. Blood pressure is high when she was in distress. Patient was yelling last night. She remains depressed. Leukocytosis is improving. Continue wound care. Decreased her scheduled dose of Tylenol because she is also getting hydrocodone with acetaminophen. Prognosis remains poor. Continue wound care. January 16, 2018 Recurrent vomiting obtain x-rays of the abdomen. Abdomen clinically is benign. This may be due to medications and multifactorial. AgitationI will use a very small dose of Seroquel at bedtime and when necessary Seroquel. DepressionZoloft is not effective and may be also adding to issues such as anxiety and vomiting. I will decrease the dose of Zoloft to 50 mg daily. Leukocytosis is slowly improving. Continue wound care. For more details regarding further plans, please refer to the orders. For more details regarding further plans, please refer to the orders. 01/17/18 severe malnutrition - minimal appetite, continues with nausea, Reglan 5mg bid with q6hr prn n/v - may ETF per dobhoff if continues refusing food, meds - wound healing/weakness severe depression - Zoloft decreased to 50mg daily per Dr. Ng note 01/16 encephalopathy - Seroquel 12.5mg at hs and q6hr prn leukocytosis - CBC pending ESRD - BMP pending. sepsis - zyvox, meropenem and micafungin continues. pneumonia - CXR in AM severe weakness and debility - PT OT ordered. For further plan of care,please refer to the orders. Patient is refusing to eat. She did not have any further vomiting. Discussed with staff. Consider adding Wellbutrin tomorrow. Encouraged patient to eat and take medications. I will hold off on Dobbhoff tube feeding as she may get more agitated and tried to pull it out. Use when necessary Seroquel. Prognosis is very poor. Today's labs are pending. 01/18/18 depression - slight increase in animation - smile at times - reports slightly less depressed - will try to eat infected wound - path= coagulated necrosis with acute cellulitis - remains on meropenem Zyvox and micafungin - WBC decreased to 12.6 anemia - Hgb 7.5 stable DM II - off ssi BS 75-92 malnutrition - Alb 2.1 liver enzyme - AST 39 AP 424 ALT 44 n/v - slight improvement - KUB 09/16 mildly distended bladder pneumonia - CXR pending For further plan of care, please refer to the orders. Plan Plan For more details regarding further plans, please refer to the orders. Nutrition Consultation Dietary Evaluation: Recommendations by RD: Protein supplementation, PPN/TPN Comments: Continue Glucerna TID and encourage PO intake Continue w/tiffani-kapil REC TF via Dobhoff if placed for nutrition needs, doubt PO intake will imrpove to meet needs REC TF per following when able: Nepro@goal rate 40 ml/hr w/150 ml water flushes q4 hrs or flushes per MD Expected Outcomes/Goals: PO intake to meet >75% est needs - not met, goal ongoing Malnutrition Findings: Food and Nutrition Intake (Mod: <75% est energy req 7days Weight Status: Overweight GAURAV NG MD 01/18/18 1000: IM PROGRESS NOTES- Assessment Assessment Mood and affect are improving today per staff.still refuses some meds. Increase HS Seroquel to 25 mg. The patient was seen and examined by me. Chart reviewed and plan of care formulated. Discussed with, reviewed and agree with [employer]'s notes, plan of care and orders with modifications as necessary. For more details regarding further plans, please refer to the orders. RUT EDWARDS APRN Jan 18, 2018 08:28 GAURAV NG MD Jan 18, 2018 10:00
[2018-01-18] MEDS: DICLOFENAC SODIUM 1% TOPICAL GEL 100GM TUBE. TP SCH ×3 (09:00→22:53)
[2018-01-18] MEDS: POLYETHYLENE GLYCOL 3350 17 GM PACKET. PO SCH (09:00)
[2018-01-18] MEDS ORDERED: IV NORMAL SALINE 1000ML BAG 1,000 ML IV PRN (09:04)
[2018-01-18] MEDS ORDERED: DIALYSIS PATIENT. MC PRN ×2 (09:15)
--- NOTE | 2018-01-18 11:22 | PDOC ---
Subjective: Subjective: Doing better. Objective: Objective: D/w RN earlier - seems in better spirits today, says going to try eating. Vital Signs: Vital Signs Date Time Temp Pulse Resp B/P (MAP) Pulse Ox O2 Delivery O2 Flow Rate FiO2 01/18/18 07:40 Room Air 01/18/18 07:00 98.2 69 18 162/69 (100) 98 98.2 Labs: Laboratory Tests Test 01/17/18 11:52 01/17/18 18:28 01/17/18 21:03 01/18/18 06:30 Glucose (Fingerstick) 102 mg/dL 92 mg/dL 85 mg/dL White Blood Count 12.6 x10^3/uL Red Blood Count 2.64 x10^6/uL Hemoglobin 7.5 g/dL Hematocrit 22.5 % Mean Corpuscular Volume 85 fL Mean Corpuscular Hemoglobin 28 pg Mean Corpuscular Hemoglobin Concent 33 g/dL Red Cell Distribution Width 18.9 % Platelet Count 184 x10^3/uL Neutrophils (%) (Auto) 88 % Lymphocytes (%) (Auto) 7 % Monocytes (%) (Auto) 4 % Eosinophils (%) (Auto) 1 % Basophils (%) (Auto) 0 % Neutrophils # (Auto) 11.0 x10^3uL Lymphocytes # (Auto) 0.9 x10^3/uL Monocytes # (Auto) 0.5 x10^3/uL Eosinophils # (Auto) 0.1 x10^3/uL Basophils # (Auto) 0.0 x10^3/uL Sodium Level 133 mmol/L Potassium Level 4.1 mmol/L Chloride Level 97 mmol/L Carbon Dioxide Level 28 mmol/L Anion Gap 8 Blood Urea Nitrogen 39 mg/dL Creatinine 5.4 mg/dL Estimated GFR (Cockcroft-Gault) 9.9 BUN/Creatinine Ratio 7 Glucose Level 84 mg/dL Calcium Level 9.1 mg/dL Total Bilirubin 0.7 mg/dL Aspartate Amino Transf (AST/SGOT) 39 U/L Alanine Aminotransferase (ALT/SGPT) 44 U/L Alkaline Phosphatase 424 U/L Total Protein 5.5 g/dL Albumin 2.1 g/dL Albumin/Globulin Ratio 0.6 Test 01/18/18 07:39 Glucose (Fingerstick) 75 mg/dL PE: GEN: asleep, dialyzing LUNGS: CTAB HEART: RRR ABD: soft, non-tender NEURO/PSYCH: awakens briefly, quiet A/P: Decreased appetite, n/v - better Depression -- Continue PPI and Reglan, encouraged PO. ALL GONZALEZ Jan 18, 2018 11:22
--- NOTE | 2018-01-18 11:46 | PDOC ---
Renal-Progress Notes Subjective Notes Notes NONE History of Present Illness Hx of present illness STABLE Vitals Vitals Vital Signs Date Time Temp Pulse Resp B/P (MAP) Pulse Ox O2 Delivery O2 Flow Rate FiO2 01/18/18 11:00 Room Air 01/18/18 07:00 98.2 69 18 162/69 (100) 98 98.2 Weight Weight [ ] I.O. Intake and Output Intake and Output 01/18/18 07:00 Intake Total 420 ml Balance 420 ml Intake Oral 420 ml Labs Labs Laboratory Tests Test 01/17/18 11:52 01/17/18 18:28 01/17/18 21:03 01/18/18 06:30 Glucose (Fingerstick) 102 mg/dL (70-99) 92 mg/dL (70-99) 85 mg/dL (70-99) White Blood Count 12.6 x10^3/uL (4.0-11.0) Red Blood Count 2.64 x10^6/uL (3.50-5.40) Hemoglobin 7.5 g/dL (12.0-15.5) Hematocrit 22.5 % (36.0-47.0) Mean Corpuscular Volume 85 fL (79-100) Mean Corpuscular Hemoglobin 28 pg (25-35) Mean Corpuscular Hemoglobin Concent 33 g/dL (31-37) Red Cell Distribution Width 18.9 % (11.5-14.5) Platelet Count 184 x10^3/uL (140-400) Neutrophils (%) (Auto) 88 % (31-73) Lymphocytes (%) (Auto) 7 % (24-48) Monocytes (%) (Auto) 4 % (0-9) Eosinophils (%) (Auto) 1 % (0-3) Basophils (%) (Auto) 0 % (0-3) Neutrophils # (Auto) 11.0 x10^3uL (1.8-7.7) Lymphocytes # (Auto) 0.9 x10^3/uL (1.0-4.8) Monocytes # (Auto) 0.5 x10^3/uL (0.0-1.1) Eosinophils # (Auto) 0.1 x10^3/uL (0.0-0.7) Basophils # (Auto) 0.0 x10^3/uL (0.0-0.2) Sodium Level 133 mmol/L (136-145) Potassium Level 4.1 mmol/L (3.5-5.1) Chloride Level 97 mmol/L (98-107) Carbon Dioxide Level 28 mmol/L (21-32) Anion Gap 8 (6-14) Blood Urea Nitrogen 39 mg/dL (7-20) Creatinine 5.4 mg/dL (0.6-1.0) Estimated GFR (Cockcroft-Gault) 9.9 BUN/Creatinine Ratio 7 (6-20) Glucose Level 84 mg/dL (70-99) Calcium Level 9.1 mg/dL (8.5-10.1) Total Bilirubin 0.7 mg/dL (0.2-1.0) Aspartate Amino Transf (AST/SGOT) 39 U/L (15-37) Alanine Aminotransferase (ALT/SGPT) 44 U/L (14-59) Alkaline Phosphatase 424 U/L (46-116) Total Protein 5.5 g/dL (6.4-8.2) Albumin 2.1 g/dL (3.4-5.0) Albumin/Globulin Ratio 0.6 (1.0-1.7) Test 01/18/18 07:39 Glucose (Fingerstick) 75 mg/dL (70-99) Micro Micro Microbiology 01/08/18 Blood Culture - Final, Complete Review of Systems Constitutional: yes: malaise, alert Ears/Nose/Throat: Yes: no symptom reported Eyes: Yes: no symptom reported Pulmonary: Yes no symptom reported Cardiovascular: Yes no symptom reported Gastrointestional: Yes: no symptom reported Genitourinary: Yes: no symptom reported Musculoskeletal: Yes: no symptom reported Skin: Yes no symptom reported Psychiatric/Neurological: Yes: no symptom reported Endocrine: Yes: no symptom reported Physical Exam General Appearance: no apparent distress Skin: warm Heart: S1S2 Abdomen: soft, bowel sounds present Genitourinary: bladder flat Extremities: pulses present Neurology: alert, oriented Musculoskeletal: Osteoarthritis Assessment Assessment IMP LEUCOCYTOSIS SEPSIS ANEMIA ESRD DM II HTN SACRAL AND ISCHIAL WOUNDS LEUCOCYTOSIS-BETTER PLAN ANTIBIOTICS HD TODAY UF TO TING BARKSDALE MD Jan 18, 2018 11:46
[2018-01-18 12:29] VITALS: BP 171/70
[2018-01-18] MEDS: MICAFUNGIN 100 MG in IV DEXTROSE 5% 100ML 100 ML IV SCH (12:34)
[2018-01-18] MEDS: MEROPENEM 500 MG in IV NORMAL SALINE 50ML 50 ML IV SCH (12:34)
[2018-01-18] MEDS: SERTRALINE 50 MG TABLET. PO SCH (12:53)
[2018-01-18] MEDS: CHOLECALCIFEROL (VITAMIN D3) 1,000 UNIT TABLET PO SCH (12:54)
[2018-01-18] MEDS: ACETAMINOPHEN 325 MG TABLET. PO SCH ×3 (12:54→20:47)
[2018-01-18] MEDS: ISOSORBIDE MONONITRATE ER 30 MG TAB.ER.24H PO SCH (12:54)
[2018-01-18] MEDS: FOLIC/VIT B COMP W-C (RENAL) TABLET. PO SCH (12:55)
[2018-01-18] MEDS: CARVEDILOL 12.5 MG TABLET. PO SCH ×2 (12:55→18:04)
[2018-01-18] MEDS: MINOXIDIL 2.5 MG TABLET PO SCH ×2 (12:56→20:38)
[2018-01-18] MEDS: busPIRone 5 MG TABLET. PO SCH ×3 (12:56→20:37)
[2018-01-18] MEDS: LACTOBACILLUS RHAMNOSUS GG 1 CAPSULE. PO SCH ×2 (12:57→20:36)
[2018-01-18] MEDS: LINEZOLID 600 MG TABLET PO SCH ×2 (12:57→20:36)
[2018-01-18] MEDS: LOSARTAN POTASSIUM 50 MG TABLET. PO SCH (12:57)
[2018-01-18] MEDS: LIPASE/PROTEAS/AMYLAS 10/32/42 CAPSULE.DR. PO SCH ×3 (12:57→18:04)
[2018-01-18 15:00] VITALS: BP 142/65
--- NOTE | 2018-01-18 17:02 | RAD ---
Exam: AP portable chest History: Evaluate pneumonia. Postdialysis. Comparison: January 12, 2018. Findings: Cardiac silhouette appears within normal limits for size. Median sternotomy wires are present. Right internal jugular central venous catheter does not appear appreciably changed. Right lung appears relatively clear. Retrocardiac density is seen, similar to previous study. There is improved aeration of the left upper lung field. Impression: 1. Improved aeration of left upper lung field. 2. Retrocardiac density, could represent pleural effusion and residual atelectasis versus pneumonia. 3. Right lung appears clear. Electronically signed by: Margarito Rojas MD (01/18/2018 4:58 PM) [facility]
[2018-01-18 19:25] VITALS: BP 134/60
[2018-01-18] MEDS: MONTELUKAST SODIUM 10 MG TABLET. PO SCH (20:36)
[2018-01-18] MEDS: QUEtiapine 25 MG TABLET. PO SCH (20:37)
[2018-01-18 22:50] VITALS: BP 163/74
[2018-01-19 02:45] VITALS: BP 153/68
[2018-01-19] MEDS: METOCLOPRAMIDE HCL 10 MG/2 ML VIAL. IV SCH ×2 (05:35→17:58)
[2018-01-19 07:00] VITALS: BP 148/47
--- NOTE | 2018-01-19 07:41 | PDOC ---
Infectious Disease Note Subjective Subjective pt says she is ok ROS ROS no n/v/d/sob Vital Sign Vital Signs Vital Signs Date Time Temp Pulse Resp B/P (MAP) Pulse Ox O2 Delivery O2 Flow Rate FiO2 01/19/18 02:45 98.4 70 18 153/68 (96) 97 Room Air 98.4 01/18/18 14:07 10.0 Physical Exam PHYSICAL EXAM GENERAL: NAD, alert and moaning but actually looks better HEENT: Normal conjunctivae. Oral mucosa is pink and dry. No thrush. NECK: No JVD LUNGS: Diminished aeration in the bases. Nonlabored. HEART: S1 and S2. ABDOMEN: Obese. Bowel sounds active. Soft, nontender. EXTREMITIES: 1-2+ edema in lower extremities bilaterally. No cyanosis. SKIN: Warm without generalized rash. Vac in place. wound seen, necrotic large wound very close to bone, no exposed bone, LUE, AV fistula unremarkable. RIJ - clean NEUROLOGIC: Alert and answering questions Labs Lab Laboratory Tests Test 01/18/18 12:24 01/18/18 16:58 01/18/18 20:30 Glucose (Fingerstick) 78 mg/dL (70-99) 109 mg/dL (70-99) 110 mg/dL (70-99) Micro Microbiology 01/08/18 Blood Culture - Final, Complete Objective Assessment 1. Leukocytosis - stable but also s/p PRBCs. Now post op and s/p dexamethasone 01/12 - better 2. Fever - improved. 3. Pressure wounds of sacral and left ischial areas, present on admission - s/ p I and D 01/12 - no bone involvement 4. H/o Left pleural effusion now ? pneumonia on CT. 5. Acute anemia. 6. Chronic kidney disease, on hemodialysis via arteriovenous fistula. 7. Status post coronary artery bypass grafting in November 2017 at [facility]. 8. Chronic heart failure. 9. Diabetes mellitus, type 2. 10. History of cerebrovascular accident with left-sided weakness and is chair bound. 11. /7 bottles + 01/08 Severe depression Plan Plan of Care Cont Meropenem/Zyvox/ micafungin ,, prognosis poor f/u am labs and BC with 06/13 positive Wound care eval of sternal wound Local wound care and offloading Would benefit from LTAC ability to care for wounds/administer IV abx but also Psych availability given her severe depression change to po soon if wound cont to look good, will look at it tomorrow at vac change D/w nursing. ILIANA BA MD Jan 19, 2018 07:41
[2018-01-19] MEDS: LIPASE/PROTEAS/AMYLAS 10/32/42 CAPSULE.DR. PO SCH ×3 (08:00→17:56)
--- NOTE | 2018-01-19 08:19 | PDOC ---
KENDELLDeeRUT LANDON LAPEL PADDER 01/19/18 0819: IM PROGRESS NOTES- Subjective Subjective awake, pain controlled Objective Objective no distress Vitals Vital Signs Date Time Temp Pulse Resp B/P (MAP) Pulse Ox O2 Delivery O2 Flow Rate FiO2 01/19/18 02:45 98.4 70 18 153/68 (96) 97 Room Air 98.4 01/18/18 14:07 10.0 Input & Output Intake and Output 01/19/18 07:00 Intake Total 620 ml Balance 620 ml Intake Oral 470 ml IV Total 150 ml Physical Exam Physical Exam General appearance - alert, ill appearing, and in no distress Mental Status - alert, oriented person, place mildly confused, mood affect improving Head - normal Chest - clear to auscultation, decreased bases, + chest wall tenderness Heart - S1 and S2 normal Abdomen - soft, nontender, nondistended,obese, BS +, no guarding no rigidity Neurological - no acute neurological deficit, wakens to name but falls asleep easily Extremities - + edema Skin - warm and dry, wound sacral buttocks dressing in situ Labs Laboratory Tests Test 01/17/18 08:40 01/17/18 11:52 01/17/18 18:28 01/17/18 21:03 White Blood Count 14.4 x10^3/uL (4.0-11.0) Red Blood Count 2.67 x10^6/uL (3.50-5.40) Hemoglobin 7.5 g/dL (12.0-15.5) Hematocrit 23.0 % (36.0-47.0) Mean Corpuscular Volume 86 fL (79-100) Mean Corpuscular Hemoglobin 28 pg (25-35) Mean Corpuscular Hemoglobin Concent 33 g/dL (31-37) Red Cell Distribution Width 18.8 % (11.5-14.5) Platelet Count 191 x10^3/uL (140-400) Neutrophils (%) (Auto) 89 % (31-73) Lymphocytes (%) (Auto) 7 % (24-48) Monocytes (%) (Auto) 4 % (0-9) Eosinophils (%) (Auto) 1 % (0-3) Basophils (%) (Auto) 0 % (0-3) Neutrophils # (Auto) 12.8 x10^3uL (1.8-7.7) Lymphocytes # (Auto) 1.0 x10^3/uL (1.0-4.8) Monocytes # (Auto) 0.5 x10^3/uL (0.0-1.1) Eosinophils # (Auto) 0.1 x10^3/uL (0.0-0.7) Basophils # (Auto) 0.0 x10^3/uL (0.0-0.2) Sodium Level 135 mmol/L (136-145) Potassium Level 3.9 mmol/L (3.5-5.1) Chloride Level 98 mmol/L (98-107) Carbon Dioxide Level 29 mmol/L (21-32) Anion Gap 8 (6-14) Blood Urea Nitrogen 32 mg/dL (7-20) Creatinine 4.3 mg/dL (0.6-1.0) Estimated GFR (Cockcroft-Gault) 12.9 Glucose Level 92 mg/dL (70-99) Calcium Level 9.0 mg/dL (8.5-10.1) Glucose (Fingerstick) 102 mg/dL (70-99) 92 mg/dL (70-99) 85 mg/dL (70-99) Test 01/18/18 06:30 01/18/18 07:39 01/18/18 12:24 01/18/18 16:58 White Blood Count 12.6 x10^3/uL (4.0-11.0) Red Blood Count 2.64 x10^6/uL (3.50-5.40) Hemoglobin 7.5 g/dL (12.0-15.5) Hematocrit 22.5 % (36.0-47.0) Mean Corpuscular Volume 85 fL (79-100) Mean Corpuscular Hemoglobin 28 pg (25-35) Mean Corpuscular Hemoglobin Concent 33 g/dL (31-37) Red Cell Distribution Width 18.9 % (11.5-14.5) Platelet Count 184 x10^3/uL (140-400) Neutrophils (%) (Auto) 88 % (31-73) Lymphocytes (%) (Auto) 7 % (24-48) Monocytes (%) (Auto) 4 % (0-9) Eosinophils (%) (Auto) 1 % (0-3) Basophils (%) (Auto) 0 % (0-3) Neutrophils # (Auto) 11.0 x10^3uL (1.8-7.7) Lymphocytes # (Auto) 0.9 x10^3/uL (1.0-4.8) Monocytes # (Auto) 0.5 x10^3/uL (0.0-1.1) Eosinophils # (Auto) 0.1 x10^3/uL (0.0-0.7) Basophils # (Auto) 0.0 x10^3/uL (0.0-0.2) Sodium Level 133 mmol/L (136-145) Potassium Level 4.1 mmol/L (3.5-5.1) Chloride Level 97 mmol/L (98-107) Carbon Dioxide Level 28 mmol/L (21-32) Anion Gap 8 (6-14) Blood Urea Nitrogen 39 mg/dL (7-20) Creatinine 5.4 mg/dL (0.6-1.0) Estimated GFR (Cockcroft-Gault) 9.9 BUN/Creatinine Ratio 7 (6-20) Glucose Level 84 mg/dL (70-99) Calcium Level 9.1 mg/dL (8.5-10.1) Total Bilirubin 0.7 mg/dL (0.2-1.0) Aspartate Amino Transf (AST/SGOT) 39 U/L (15-37) Alanine Aminotransferase (ALT/SGPT) 44 U/L (14-59) Alkaline Phosphatase 424 U/L (46-116) Total Protein 5.5 g/dL (6.4-8.2) Albumin 2.1 g/dL (3.4-5.0) Albumin/Globulin Ratio 0.6 (1.0-1.7) Glucose (Fingerstick) 75 mg/dL (70-99) 78 mg/dL (70-99) 109 mg/dL (70-99) Test 01/18/18 20:30 01/19/18 07:22 Glucose (Fingerstick) 110 mg/dL (70-99) 92 mg/dL (70-99) Laboratory Tests Test 01/18/18 12:24 01/18/18 16:58 01/18/18 20:30 01/19/18 07:22 Glucose (Fingerstick) 78 mg/dL (70-99) 109 mg/dL (70-99) 110 mg/dL (70-99) 92 mg/dL (70-99) Meds Current Medications Info (PHARMACY MONITORING -- do not chart) 1 each PRN DAILY PRN MC SEE COMMENTS ; Start 01/18/18 at 09:15 Info (PHARMACY MONITORING -- do not chart) 1 each PRN DAILY PRN MC SEE COMMENTS ; Start 01/18/18 at 09:15; Status UNV Quetiapine Fumarate (SEROquel) 25 mg QHS PO Last administered on 01/18/18at 20: 37; Start 01/18/18 at 21:00 Sodium Chloride 1,000 ml @ 1,000 mls/hr Q1H PRN IV hypotension; Start 01/18/18 at 09:04; Stop 01/18/18 at 15:03; Status DC Assessment Assessment FINAL DIAGNOSIS: 1. Chest pain - chest wall MS pain not costochondritis- sternal incision pain 2. LLL pneumonia HCFA gram - gram + with sepsis POA 3. sepsis - LLL pneumonia/ probable infected pressure wound sacral/buttocks 4. metabolic encephalopathy 5. acute on chronic anemia ESRD 6. Chest pain with h/o CABG 11/2017 8. Pressure wound coccyx sacrum with black eschar 9. abnormal troponin with h/o NSTEMI 10. End-stage renal disease, on hemodialysis TTS 11. 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 12. History of hyperparathyroidism secondary to end-stage renal disease. 13. Hyperlipidemia. 14. Severe pulmonary hypertension. 15. Asthma. 16. Gastroesophageal reflux disease. 17. CAD with [place] unknown age and + small ischemia per [facility] medical management with recent CABG 18. Negative hepatitis C. 19. moderate severe depression recurrent 20. DM II insulin gastroparesis, ESRD 21. severe PCL malnutrition with decreased po intake 22. moderate weakness and debility 23, depression 24. secondary hyperparathyroidism 25. post op CABG L leg paralysis post op 26. Diastolic congestive heart failure with preserved ejection fraction not acute 27. severe PCL malnutrition with underlying moderate PCL malnutrition 28. h/o recent code blue 29. infected sacral ulcer POA s/p debridement to muscle 01/12/18 PLAN: chest pain cardiology following Admit troponin 0.046 leukocytosis/ fever/ question infiltrate LLL Chronic LLL effusion pulmonary following - no further thoracentesis at this time CT chest w/o contrast pending fever/leukocytosis Admit WBC 21.7 today 20.9 ESR 35 CRP 20.9 Pre Calcitonin 2.05 ID following Vancomycin zosyn Prelim BC 1 or 7 + for gram + cocci Anemia/thrombocytopenia Admit Hgb 7.3 decreased to 6.4 and today 7.3 post 1U PRC thrombocytopenia Admit 215 today 123 - monitor - r/t infectious process/ antibiotics Severe depression Zoloft continues pysch consult had been ordered [facility] ESRD hemodialysis continued in patient DVT/GI prophylaxis SCD/JEN PPI Screen LTAC 01/11/18 chest wall pain - improved with Voltaren Gel - CT chest w/o noted mild edema identified in the subcutaneous region of the chest similar to prior exam. pressure wound - wound care note reviewed - will obtain surgical consult to eval for debridement - local wound care started sepsis pneumonia - lab pending - Tm 100.7F last 24 hours - ID following - on zosyn and Vanco abnormal CXR -CT chest 01/10- Left lower lobe lung consolidation with air bronchograms identified likely pneumonia or postobstructive atelectasis. ESRD - HD Admit wt 191# today 185.56# - DM II - BS 81-89 Await [facility] screen Labs pending For further plan of care, please refer to the orders. 01/12/18 wound - to OR today for debridement. continue IV antibiotics sepsis - pneumonia/probable infected pressure wound - Zosyn Vanco continue - fever improved. DM - BS 80-169 encephalopathy - improving slowly Pain control - will begin fentanyl 50mcg q4hr prn pain and continue lortab q8hr prn ESRD - dialysis continues wt. today 179.56 PICC ordered 01/11- nephrology concerned regarding length of need - ID contacted by staff - change order to central line - anesthesia contacted - will insert in surgery. For more details regarding further plans, please refer to the orders. 01/13/18 wound - IV antibiotics zosyn/vanc and micafungin added 01/12. Procedure 01/13/[address] Coulter: Excisional debridement of skin, subcutaneous tissue, muscle 5 cm sacral ulcer with necrotic tissue extending down through skin, subcutaneous tissue to muscle, no bony involvement sepsis - pneumonia/probable infected pressure wound - Zosyn Vanco continue - micafungin added 01/12 DM - 115-205 Anemia - Hgb 7.3 thrombocytopenia r/t med/infection - Admit Plt 215 -lowest 01/12 126 and today improved to 161 encephalopathy - improving slowly Pain control - will begin fentanyl 50mcg q4hr prn pain and continue lortab q8hr prn - less moaning ESRD - dialysis continues wt. today 185.06 [facility] Screen in process. For more details regarding further plans, please refer to the orders. 01/14 LLL pneumonia/pleural effusion - CXR 01/12-worsening infiltrate, effusion wounds - wound care, now with wound vac sepsis - IV Zosyn/Vanco changed to meropenem/zyvox and micafungin continued. leukocytosis - WBC 22.3 ( steroid during surgery) anemia - Hgb 7.2 DM - 151-208 metabolic encephalopathy with underlying severe depression severe depression - currently Zoloft which has been given chronically - consider changing to Wellbutrin - defer to Dr. Ng [facility] denied admission to LTAC - SW requesting peer to peer between [facility] MD and Dr. Ng Refer to Dr. Bright recommendations 01/15/18 Patient vomited this morning. Vomiting is multifactorial. Medications reviewed. Blood pressure is high when she was in distress. Patient was yelling last night. She remains depressed. Leukocytosis is improving. Continue wound care. Decreased her scheduled dose of Tylenol because she is also getting hydrocodone with acetaminophen. Prognosis remains poor. Continue wound care. January 16, 2018 Recurrent vomiting obtain x-rays of the abdomen. Abdomen clinically is benign. This may be due to medications and multifactorial. AgitationI will use a very small dose of Seroquel at bedtime and when necessary Seroquel. DepressionZoloft is not effective and may be also adding to issues such as anxiety and vomiting. I will decrease the dose of Zoloft to 50 mg daily. Leukocytosis is slowly improving. Continue wound care. For more details regarding further plans, please refer to the orders. For more details regarding further plans, please refer to the orders. 01/17/18 severe malnutrition - minimal appetite, continues with nausea, Reglan 5mg bid with q6hr prn n/v - may ETF per dobhoff if continues refusing food, meds - wound healing/weakness severe depression - Zoloft decreased to 50mg daily per Dr. Ng note 01/16 encephalopathy - Seroquel 12.5mg at hs and q6hr prn leukocytosis - CBC pending ESRD - BMP pending. sepsis - zyvox, meropenem and micafungin continues. pneumonia - CXR in AM severe weakness and debility - PT OT ordered. For further plan of care,please refer to the orders. Dr. Ng note: Patient is refusing to eat. She did not have any further vomiting. Discussed with staff. Consider adding Wellbutrin tomorrow. Encouraged patient to eat and take medications. I will hold off on Dobbhoff tube feeding as she may get more agitated and tried to pull it out. Use when necessary Seroquel. Prognosis is very poor. Today's labs are pending. 01/18/18 depression - slight increase in animation - smile at times - reports slightly less depressed - will try to eat infected wound - path= coagulated necrosis with acute cellulitis - remains on meropenem Zyvox and micafungin - WBC decreased to 12.6 anemia - Hgb 7.5 stable DM II - off ssi BS 75-92 malnutrition - Alb 2.1 liver enzyme - AST 39 AP 424 ALT 44 n/v - slight improvement - KUB 04/12 mildly distended bladder pneumonia - CXR pending For further plan of care, please refer to the orders. Dr. Ng note: Mood and affect are improving today per staff.still refuses some meds. Increase HS Seroquel to 25 mg. 01/19/18 depression - continues calm this morning - responding verbally at times infected wound - per staff - wound care reported wound vac not working effectively - wound with slough and may need additional debriding - Dr. Nino to view wound later today anemia - Hgb 7.5 stable DM II - off ssi BS 75-110 malnutrition - slight increase in appetite - approximately 15% intake with meals yesterday liver enzyme - AST 39 AP 424 ALT 44 n/v - slight improvement - KUB 04/12 mildly distended bladder pneumonia -CXR 01/18 -retrocardiac density unchanged: pleural effusion vs atelectasis vs pneumonia Lab pending [facility] contacting insurance to obtain approval for admission. Continue current plan of care. Plan Plan For more details regarding further plans, please refer to the orders. Nutrition Consultation Dietary Evaluation: Recommendations by RD: Protein supplementation, PPN/TPN Comments: Continue Glucerna TID and encourage PO intake Continue w/tiffani-kapil REC TF via Dobhoff if placed for nutrition needs, doubt PO intake will imrpove to meet needs REC TF per following when able: Nepro@goal rate 40 ml/hr w/150 ml water flushes q4 hrs or flushes per MD Expected Outcomes/Goals: PO intake to meet >75% est needs - not met, goal ongoing Malnutrition Findings: Food and Nutrition Intake (Mod: <75% est energy req 7days Weight Status: Overweight GAURAV NG MD 01/19/18 1005: IM PROGRESS NOTES- Assessment Assessment The patient was seen and examined by me. Chart reviewed and plan of care formulated. Discussed with, reviewed and agree with PIANO TEACHER's notes, plan of care and orders with modifications as necessary. For more details regarding further plans, please refer to the orders. She is not eating much.Encouraged to eat more. RUT EDWARDS APRN Jan 19, 2018 08:19 GAURAV NG MD Jan 19, 2018 10:05
--- NOTE | 2018-01-19 08:23 | DISCH ---
DISCHARGE FINAL DIAGNOSIS Problems Medical Problems: (1) End stage renal disease Status: Acute CONDITION ON DISCHARGE: Stable ADMIT TO LTAC: Yes POST DISCHARGE ORDERS ACTIVITY ORDERS: Activity as tolerated WEIGHT BEARING STATUS: As tolerated DIET AFTER DISCHARGE: Cardiac (renal hemodialysis ) WOUND/INCISION CARE: May get incision wet OTHER WOUND INSTRUCTIONS: see wound care instructions CHECKS AFTER DISCHARGE CHECKS AFTER DISCHARGE: Weigh Yourself Daily COMMENTS: VS per routine - BS check bid - call > 401 FOLLOW-UP PHYSICIAN FOLLOW-UP: Admit to Dr. Ng ADDITIONAL FOLLOW-UP: consult Dr. Ray Nino, Dr. Hernandez, Dr. Headley, Dr. Sewell LAB ORDERS FOR FOLLOW-UP: CBC w/diff CMP Pre Alb in AM TREATMENT/EQUIPMENT ORDERS ADAPTIVE EQUIPMENT NEEDED: Wheelchair INFUSION EQUIPMENT NEEDED: IV Line (Central line with dressing changes per protocol ) RESPIRATORY EQUIPMENT NEEDED: Oxygen (prn to maintain Sat >90% or 2L if short of breath ), Nebulizer (QID ) Physical Therapy For: Evalulation/Treatment Occupational Therapy For: Evaluation/Treatment RUT EDWARDS APRN Jan 19, 2018 08:23
[2018-01-19] MEDS ORDERED: QUET25TA PO ×2 (08:31)
[2018-01-19] MEDS ORDERED: SERT50TA8 PO (08:31)
[2018-01-19] MEDS ORDERED: FENT50VI IV (08:31)
[2018-01-19] MEDS ORDERED: BUSP5TAB PO (08:31)
[2018-01-19] MEDS ORDERED: LACT1CAP19 PO (08:31)
[2018-01-19] MEDS ORDERED: METO5VIA4 IV ×2 (08:31)
[2018-01-19] MEDS ORDERED: DARBEPOETIN ALFA IN POLYSORBAT SQ (08:31)
[2018-01-19] MEDS ORDERED: LINE600T PO (08:31)
[2018-01-19] MEDS ORDERED: ONDA4VIA4 IV (08:31)
[2018-01-19] MEDS ORDERED: HYDR-2762 PO (08:31)
[2018-01-19] MEDS: DICLOFENAC SODIUM 1% TOPICAL GEL 100GM TUBE. TP SCH ×3 (09:00→20:00)
[2018-01-19] MEDS: POLYETHYLENE GLYCOL 3350 17 GM PACKET. PO SCH (09:00)
[2018-01-19] MEDS: MICAFUNGIN 100 MG in IV DEXTROSE 5% 100ML 100 ML IV SCH (09:45)
[2018-01-19] MEDS: MEROPENEM 500 MG in IV NORMAL SALINE 50ML 50 ML IV SCH (09:45)
[2018-01-19] MEDS: CHOLECALCIFEROL (VITAMIN D3) 1,000 UNIT TABLET PO SCH (09:47)
[2018-01-19] MEDS: ISOSORBIDE MONONITRATE ER 30 MG TAB.ER.24H PO SCH (09:47)
[2018-01-19] MEDS: PANTOPRAZOLE 40 MG TABLET.DR. PO SCH (09:48)
[2018-01-19] MEDS: ACETAMINOPHEN 325 MG TABLET. PO SCH ×3 (09:48→19:47)
[2018-01-19] MEDS: FOLIC/VIT B COMP W-C (RENAL) TABLET. PO SCH (09:48)
[2018-01-19] MEDS: busPIRone 5 MG TABLET. PO SCH ×3 (09:48→19:47)
[2018-01-19] MEDS: LINEZOLID 600 MG TABLET PO SCH ×2 (09:49→19:47)
[2018-01-19] MEDS: SERTRALINE 50 MG TABLET. PO SCH (09:49)
[2018-01-19] MEDS: MINOXIDIL 2.5 MG TABLET PO SCH ×2 (09:49→19:47)
[2018-01-19] MEDS: CARVEDILOL 12.5 MG TABLET. PO SCH ×2 (09:51→17:55)
[2018-01-19] MEDS: LOSARTAN POTASSIUM 50 MG TABLET. PO SCH (09:52)
[2018-01-19] MEDS: LACTOBACILLUS RHAMNOSUS GG 1 CAPSULE. PO SCH ×2 (09:52→19:46)
[2018-01-19 10:17] LABS: BASO % 0 % (0-3); EOS # 0.2 x10^3/uL (0.0-0.7); EOS % 1 % (0-3); HEMOGLOBIN 8.7 g/dL (12.0-15.5); LYMPH # 0.6 x10^3/uL (1.0-4.8); LYMPH % 6 % (24-48); MEAN CORPUSCULAR HEMOGLOBIN 30 pg (25-35); MEAN CORPUSCULAR HGB CONC 35 g/dL (31-37); MEAN CORPUSCULAR VOLUME 85 fL (79-100); MONO # 0.3 x10^3/uL (0.0-1.1); MONO % 3 % (0-9); NEUT # 9.9 x10^3uL (1.8-7.7); NEUT % 90 % (31-73); PLATELET COUNT 181 x10^3/uL (140-400); RED BLOOD COUNT 2.93 x10^6/uL (3.50-5.40)
[2018-01-19 10:46] LABS: CALCIUM 9.2 mg/dL (8.5-10.1); CREATININE 3.7 mg/dL (0.6-1.0); GFR 15.4
[2018-01-19 10:55] VITALS: BP 139/50
--- NOTE | 2018-01-19 11:09 | PDOC ---
G I PROGRESS NOTE Subjective Asleep. Did not awaken. Objective Others' notes reviewed. Still poor po intake. Physical Exam No PE. Review of Relevant I have reviewed the following items richard (where applicable) has been applied. Labs Laboratory Tests Test 01/17/18 11:52 01/17/18 18:28 01/17/18 21:03 01/18/18 06:30 Glucose (Fingerstick) 102 mg/dL (70-99) 92 mg/dL (70-99) 85 mg/dL (70-99) White Blood Count 12.6 x10^3/uL (4.0-11.0) Red Blood Count 2.64 x10^6/uL (3.50-5.40) Hemoglobin 7.5 g/dL (12.0-15.5) Hematocrit 22.5 % (36.0-47.0) Mean Corpuscular Volume 85 fL (79-100) Mean Corpuscular Hemoglobin 28 pg (25-35) Mean Corpuscular Hemoglobin Concent 33 g/dL (31-37) Red Cell Distribution Width 18.9 % (11.5-14.5) Platelet Count 184 x10^3/uL (140-400) Neutrophils (%) (Auto) 88 % (31-73) Lymphocytes (%) (Auto) 7 % (24-48) Monocytes (%) (Auto) 4 % (0-9) Eosinophils (%) (Auto) 1 % (0-3) Basophils (%) (Auto) 0 % (0-3) Neutrophils # (Auto) 11.0 x10^3uL (1.8-7.7) Lymphocytes # (Auto) 0.9 x10^3/uL (1.0-4.8) Monocytes # (Auto) 0.5 x10^3/uL (0.0-1.1) Eosinophils # (Auto) 0.1 x10^3/uL (0.0-0.7) Basophils # (Auto) 0.0 x10^3/uL (0.0-0.2) Sodium Level 133 mmol/L (136-145) Potassium Level 4.1 mmol/L (3.5-5.1) Chloride Level 97 mmol/L (98-107) Carbon Dioxide Level 28 mmol/L (21-32) Anion Gap 8 (6-14) Blood Urea Nitrogen 39 mg/dL (7-20) Creatinine 5.4 mg/dL (0.6-1.0) Estimated GFR (Cockcroft-Gault) 9.9 BUN/Creatinine Ratio 7 (6-20) Glucose Level 84 mg/dL (70-99) Calcium Level 9.1 mg/dL (8.5-10.1) Total Bilirubin 0.7 mg/dL (0.2-1.0) Aspartate Amino Transf (AST/SGOT) 39 U/L (15-37) Alanine Aminotransferase (ALT/SGPT) 44 U/L (14-59) Alkaline Phosphatase 424 U/L (46-116) Total Protein 5.5 g/dL (6.4-8.2) Albumin 2.1 g/dL (3.4-5.0) Albumin/Globulin Ratio 0.6 (1.0-1.7) Test 01/18/18 07:39 01/18/18 12:24 01/18/18 16:58 01/18/18 20:30 Glucose (Fingerstick) 75 mg/dL (70-99) 78 mg/dL (70-99) 109 mg/dL (70-99) 110 mg/dL (70-99) Test 01/19/18 07:22 01/19/18 09:30 Glucose (Fingerstick) 92 mg/dL (70-99) White Blood Count 11.0 x10^3/uL (4.0-11.0) Red Blood Count 2.93 x10^6/uL (3.50-5.40) Hemoglobin 8.7 g/dL (12.0-15.5) Hematocrit 25.0 % (36.0-47.0) Mean Corpuscular Volume 85 fL (79-100) Mean Corpuscular Hemoglobin 30 pg (25-35) Mean Corpuscular Hemoglobin Concent 35 g/dL (31-37) Red Cell Distribution Width 19.0 % (11.5-14.5) Platelet Count 181 x10^3/uL (140-400) Neutrophils (%) (Auto) 90 % (31-73) Lymphocytes (%) (Auto) 6 % (24-48) Monocytes (%) (Auto) 3 % (0-9) Eosinophils (%) (Auto) 1 % (0-3) Basophils (%) (Auto) 0 % (0-3) Neutrophils # (Auto) 9.9 x10^3uL (1.8-7.7) Lymphocytes # (Auto) 0.6 x10^3/uL (1.0-4.8) Monocytes # (Auto) 0.3 x10^3/uL (0.0-1.1) Eosinophils # (Auto) 0.2 x10^3/uL (0.0-0.7) Basophils # (Auto) 0.0 x10^3/uL (0.0-0.2) Sodium Level 135 mmol/L (136-145) Potassium Level 4.0 mmol/L (3.5-5.1) Chloride Level 98 mmol/L (98-107) Carbon Dioxide Level 27 mmol/L (21-32) Anion Gap 10 (6-14) Blood Urea Nitrogen 21 mg/dL (7-20) Creatinine 3.7 mg/dL (0.6-1.0) Estimated GFR (Cockcroft-Gault) 15.4 Glucose Level 97 mg/dL (70-99) Calcium Level 9.2 mg/dL (8.5-10.1) Laboratory Tests Test 01/18/18 12:24 01/18/18 16:58 01/18/18 20:30 01/19/18 07:22 Glucose (Fingerstick) 78 mg/dL (70-99) 109 mg/dL (70-99) 110 mg/dL (70-99) 92 mg/dL (70-99) Test 01/19/18 09:30 White Blood Count 11.0 x10^3/uL (4.0-11.0) Red Blood Count 2.93 x10^6/uL (3.50-5.40) Hemoglobin 8.7 g/dL (12.0-15.5) Hematocrit 25.0 % (36.0-47.0) Mean Corpuscular Volume 85 fL (79-100) Mean Corpuscular Hemoglobin 30 pg (25-35) Mean Corpuscular Hemoglobin Concent 35 g/dL (31-37) Red Cell Distribution Width 19.0 % (11.5-14.5) Platelet Count 181 x10^3/uL (140-400) Neutrophils (%) (Auto) 90 % (31-73) Lymphocytes (%) (Auto) 6 % (24-48) Monocytes (%) (Auto) 3 % (0-9) Eosinophils (%) (Auto) 1 % (0-3) Basophils (%) (Auto) 0 % (0-3) Neutrophils # (Auto) 9.9 x10^3uL (1.8-7.7) Lymphocytes # (Auto) 0.6 x10^3/uL (1.0-4.8) Monocytes # (Auto) 0.3 x10^3/uL (0.0-1.1) Eosinophils # (Auto) 0.2 x10^3/uL (0.0-0.7) Basophils # (Auto) 0.0 x10^3/uL (0.0-0.2) Sodium Level 135 mmol/L (136-145) Potassium Level 4.0 mmol/L (3.5-5.1) Chloride Level 98 mmol/L (98-107) Carbon Dioxide Level 27 mmol/L (21-32) Anion Gap 10 (6-14) Blood Urea Nitrogen 21 mg/dL (7-20) Creatinine 3.7 mg/dL (0.6-1.0) Estimated GFR (Cockcroft-Gault) 15.4 Glucose Level 97 mg/dL (70-99) Calcium Level 9.2 mg/dL (8.5-10.1) Microbiology 01/08/18 Blood Culture - Final, Complete Medications Current Medications Morphine Sulfate (Morphine Sulfate) 6 mg 1X ONCE IV Last administered on at 13:35; Start 01/08/18 at 13:00; Stop 01/08/18 at 13:01; Status DC Vancomycin HCl (Vanco Per Pharmacy) 1 each PRN DAILY PRN MC SEE COMMENTS Last administered on 01/12/18at 09:16; Start 01/08/18 at 15:30; Stop 01/13/18 at 10:06; Status DC Vancomycin HCl 1.75 gm/Sodium Chloride 500 ml @ 250 mls/hr 1X ONCE IV Last administered on 01/08/18at 15:39; Start 01/08/18 at 15:30; Stop 01/08/18 at 17:29; Status DC Ondansetron HCl (Zofran) 4 mg PRN Q8HRS PRN IV NAUSEA/VOMITING Last administered on 01/08/18 21:44; Start 01/08/18 at 16:00; Stop 01/09/18 at 08:45; Status DC Morphine Sulfate (Morphine Sulfate) 2 mg PRN Q2HR PRN IV PAIN Last administered on 01/08/18 17:06; Start 01/08/18 at 16:00; Stop 01/09/18 at 15:59; Status DC Vancomycin HCl (Vancomycin Random Level) 1 each 1X ONCE MC Last administered on 01/10/18 05:00; Start 01/10/18 at 05:00; Stop 01/10/18 at 05:01; Status DC Lorazepam (Ativan) 1 mg PRN Q4HRS PRN IV ANXIETY / AGITATION Last administered on 01/09/18 21:30; Start 01/08/18 at 18:00; Stop 01/10/18 at 09:24; Status DC Acetaminophen (Tylenol) 650 mg PRN Q6HRS PRN PO FEVER; Start 01/08/18 at 18:00; Stop 01/10/18 at 09:24; Status DC Iohexol (Omnipaque 300 Mg/ml) 75 ml 1X ONCE IV Last administered on 01/08/18at 19:35; Start 01/08/18 at 18:15; Stop 01/08/18 at 18:16; Status DC Ondansetron HCl (Zofran) 4 mg PRN Q6HRS PRN IV NAUSEA/VOMITING 1st Choice Last administered on 01/16/18at 01:49; Start 01/09/18 at 08:45 Sodium Chloride 1,000 ml @ 100 mls/hr Q10H IV ; Start 01/09/18 at 09:00; Stop at 11:32; Status DC Acetaminophen (Tylenol) 1,000 mg TID PO Last administered on 01/15/18 08:16; Start 01/09/18 at 09:00; Stop 01/15/18 at 09:48; Status DC Carvedilol (Coreg) 12.5 mg BIDWMEALS PO Last administered on 01/19/18 09:51; Start 01/09/18 at 09:00 Vitamin D (Vitamin D3) 1,000 unit DAILY PO Last administered on 01/19/18 09:47 ; Start 01/09/18 at 09:00 Diphenhydramine HCl (Benadryl) 25 mg PRN Q6HRS PRN PO ITCHING; Start 01/09/18 at 08:45 Vitamin B Complex/ Vitamin C (Anneliese-Donny) 1 tab DAILY PO Last administered on 09:48; Start 01/09/18 at 09:00 Isosorbide Mononitrate (Imdur) 120 mg DAILY PO Last administered on 01/19/18 09:47; Start 01/09/18 at 09:00 Amylase/Lipase/ Protease (Zenpep 10,000) 2 cap TIDWMEALS PO Last administered on 01/18/18 18:04; Start 01/09/18 at 09:00 Nitroglycerin (Nitrostat) 0.4 mg PRN Q5MIN PRN SL CHEST PAIN; Start 01/09/18 at 08:45 Pantoprazole Sodium (Protonix) 40 mg DAILYAC PO Last administered on 01/19/18 09:48; Start 01/09/18 at 09:00 Non-Formulary Medication (Insulin Aspart (Novolog Flexpen)) TIDAC SQ ; Start at 11:30; Status UNV Losartan Potassium (Cozaar) 100 mg DAILY PO Last administered on 01/19/18 09: 52; Start 01/09/18 at 09:00 Minoxidil (Loniten) 2.5 mg BID PO Last administered on 01/19/18 09:49; Start 01/09/18 at 09:00 Montelukast Sodium (Singulair) 10 mg QHS PO Last administered on 01/18/18 20: 36; Start 01/09/18 at 21:00 Polyethylene Glycol (miraLAX PACKET) 17 gm DAILY PO Last administered on 13:30; Start 01/09/18 at 09:00 Sertraline HCl (Zoloft) 100 mg DAILY PO Last administered on 01/16/18 08:47; Start 01/09/18 at 09:00; Stop 01/16/18 at 08:52; Status DC Calcium Acetate (Phoslo) 1,334 mg TIDWMEALS PO Last administered on 01/10/18 12 :24; Start 01/09/18 at 09:00; Stop 01/10/18 at 15:33; Status DC Insulin Human Lispro (HumaLOG) 0-5 UNITS TIDAC SQ Last administered on at 19:45; Start 01/09/18 at 11:30; Stop 01/17/18 at 08:40; Status DC Magnesium Sulfate 50 ml @ 25 mls/hr PRN DAILY PRN IV for Mag < 1.7 on am labs; Start 01/09/18 at 10:15 Darbepoetin Ty (Aranesp) 60 mcg WEEKLYHS SQ Last administered on 01/16/18at 22 :08; Start 01/09/18 at 21:00 Piperacillin Sod/ Tazobactam Sod (Zosyn Per Pharmacy) 1 each PRN DAILY PRN MC SEE COMMENTS; Start 01/09/18 at 11:15; Status Cancel Piperacillin Sod/ Tazobactam Sod 2.25 gm/Sodium Chloride 50 ml @ 100 mls/hr Q8HRS IV Last administered on 01/13/18at 05:07; Start 01/09/18 at 12:00; Stop 01/13 at 10:06; Status DC Acetaminophen (Tylenol) 325 mg PRN Q6HRS PRN PO FEVER; Start 01/10/18 at 09:15 Lactobacillus Rhamnosus (Culturelle) 1 cap BID PO Last administered on at 09:52; Start 01/10/18 at 21:00 Acetaminophen/ Hydrocodone Bitart (Lortab 7.5/325) 1 tab PRN Q8HRS PRN PO PAIN Last administered on 01/18/18at 14:07; Start 01/10/18 at 09:45 Diclofenac Sodium (Voltaren) 1 graciela TID TP Last administered on 01/18/18at 22:53 ; Start 01/10/18 at 14:00 Vancomycin HCl 500 mg/Sodium Chloride 100 ml @ 100 mls/hr ONCE ONCE IV Last administered on 01/10/18at 18:13; Start 01/10/18 at 16:00; Stop 01/10/18 at 16:59; Status DC Sodium Chloride 1,000 ml @ 1,000 mls/hr Q1H PRN IV hypotension; Start 01/10/18 at 14:25; Stop 01/10/18 at 20:24; Status DC Diphenhydramine HCl (Benadryl) 25 mg 1X PRN PRN IV ITCHING; Start 01/10/18 at 14 :30; Stop 01/11/18 at 14:29; Status DC Diphenhydramine HCl (Benadryl) 25 mg 1X PRN PRN IV ITCHING; Start 01/10/18 at 14 :30; Stop 01/11/18 at 14:29; Status DC Sodium Chloride 1,000 ml @ 400 mls/hr Q2H30M PRN IV PATENCY; Start 01/10/18 at 14:25; Stop 01/11/18 at 02:24; Status DC Info (PHARMACY MONITORING -- do not chart) 1 each PRN DAILY PRN MC SEE COMMENTS ; Start 01/10/18 at 14:30; Status Cancel Sodium Chloride 1,000 ml @ 1,000 mls/hr Q1H PRN IV hypotension; Start 01/11/18 at 08:06; Stop 01/11/18 at 14:05; Status DC Info (PHARMACY MONITORING -- do not chart) 1 each PRN DAILY PRN MC SEE COMMENTS ; Start 01/11/18 at 08:15; Stop 01/11/18 at 08:15; Status DC Info (PHARMACY MONITORING -- do not chart) 1 each PRN DAILY PRN MC SEE COMMENTS ; Start 01/11/18 at 08:15; Stop 01/11/18 at 08:15; Status DC Vancomycin HCl 500 mg/Sodium Chloride 100 ml @ 100 mls/hr QTUTHSA IV Last administered on 01/11/18at 20:41; Start 01/11/18 at 16:00; Stop 01/13/18 at 10:06; Status DC Fentanyl Citrate (Fentanyl 2ml Vial) 50 mcg PRN Q4HRS PRN IV PAIN Last administered on 01/16/18at 04:59; Start 01/12/18 at 08:15 Micafungin Sodium 100 mg/Dextrose 100 ml @ 100 mls/hr Q24H IV Last administered on 01/19/18at 09:45; Start 01/12/18 at 09:00 Ondansetron HCl (Zofran) 4 mg PRN Q6HRS PRN IV NAUSEA/VOMITING; Start 01/12/18 at 09:15; Stop 8/9/18 at 09:14; Status DC Fentanyl Citrate (Fentanyl 2ml Vial) 25 mcg PRN Q5MIN PRN IV MILD PAIN Last administered on 01/12/18at 17:21; Start 01/12/18 at 09:15; Stop 01/13/18 at 09:14; Status DC Fentanyl Citrate (Fentanyl 2ml Vial) 50 mcg PRN Q5MIN PRN IV MODERATE TO SEVERE PAIN; Start 01/12/18 at 09:15; Stop 01/13/18 at 09:14; Status DC Lidocaine HCl (Xylocaine-Mpf 1% Vial) 2 ml PRN 1X PRN ID PRIOR TO IV START; Start 01/12/18 at 09:15; Stop 01/13/18 at 09:14; Status DC Prochlorperazine Edisylate (Compazine) 5 mg PACU PRN PRN IV NAUSEA, MRX1 Last administered on 01/12/18at 14:43; Start 01/12/18 at 09:15; Stop 01/13/18 at 09:14; Status DC Sodium Chloride 1,000 ml @ 0 mls/hr Q0M IV Last administered on 01/12/18at 14:27 ; Start 01/12/18 at 14:15 Prochlorperazine Edisylate (Compazine) 10 mg STK-MED ONCE .ROUTE ; Start at 14:40; Stop 01/12/18 at 14:41; Status DC Fentanyl Citrate (Fentanyl 2ml Vial) 100 mcg STK-MED ONCE .ROUTE ; Start at 15:17; Stop 01/12/18 at 15:18; Status DC Fentanyl Citrate (Fentanyl 2ml Vial) 100 mcg STK-MED ONCE .ROUTE ; Start at 15:18; Stop 01/12/18 at 15:20; Status DC Succinylcholine Chloride (Anectine) 200 mg STK-MED ONCE .ROUTE ; Start 01/12/18 at 15:19; Stop 01/12/18 at 15:20; Status DC Phenylephrine HCl (PHENYLEPHRINE in 0.9% NACL PF) 1 mg STK-MED ONCE IV ; Start 01/12/18 at 15:44; Stop 01/12/18 at 15:46; Status DC Ephedrine Sulfate (Akovaz) 50 mg STK-MED ONCE .ROUTE ; Start 01/12/18 at 15:49; Stop 01/12/18 at 15:50; Status DC Dexamethasone Sodium Phosphate (Decadron) 20 mg STK-MED ONCE .ROUTE ; Start 01/12 at 15:54; Stop 01/12/18 at 15:55; Status DC Bupivacaine HCl/ Epinephrine Bitart (Marcaine-Epi 0.25%-1:236602) 50 ml STK-MED ONCE .ROUTE Last administered on 01/12/18at 16:35; Start 01/12/18 at 15:19; Stop 01/12/18 at 16:20; Status DC Sodium Chloride (Normal Saline Flush) 3 ml QSHIFT PRN IV AFTER MEDS AND BLOOD DRAWS; Start 01/12/18 at 16:45 Sodium Chloride 1,000 ml @ 1,000 mls/hr Q1H PRN IV hypotension; Start 01/13/18 at 06:54; Stop 01/13/18 at 12:53; Status DC Albumin Human 200 ml @ 200 mls/hr 1X PRN PRN IV Hypotension; Start 01/13/18 at 07:00; Stop 01/13/18 at 12:59; Status DC Sodium Chloride 1,000 ml @ 400 mls/hr Q2H30M PRN IV PATENCY; Start 01/13/18 at 06:54; Stop 01/13/18 at 18:53; Status DC Info (PHARMACY MONITORING -- do not chart) 1 each PRN DAILY PRN MC SEE COMMENTS ; Start 01/13/18 at 07:00; Status Cancel Info (PHARMACY MONITORING -- do not chart) 1 each PRN DAILY PRN MC SEE COMMENTS ; Start 01/13/18 at 07:00; Status UNV Meropenem 500 mg/ Sodium Chloride 50 ml @ 100 mls/hr DAILY IV Last administered on 01/19/18at 09:45; Start 01/13/18 at 10:30 Linezolid (Zyvox) 600 mg BID PO Last administered on 01/19/18at 09:49; Start 01/13/18 at 10:30 Buspirone HCl (Buspar) 5 mg TID PO Last administered on 01/19/18at 09:48; Start 01/14/18 at 14:00 Sodium Chloride 1,000 ml @ 1,000 mls/hr Q1H PRN IV hypotension; Start 01/15/18 at 08:34; Stop 01/15/18 at 14:33; Status DC Labetalol HCl (Normodyne) 10 mg PRN Q1HR PRN IVP SBP > 180; Start 01/15/18 at 08:45; Stop 01/16/18 at 08:44; Status DC Sodium Chloride 1,000 ml @ 400 mls/hr Q2H30M PRN IV PATENCY; Start 01/15/18 at 08:34; Stop 01/15/18 at 20:33; Status DC Info (PHARMACY MONITORING -- do not chart) 1 each PRN DAILY PRN MC SEE COMMENTS ; Start 01/15/18 at 08:45; Stop 01/18/18 at 09:11; Status DC Info (PHARMACY MONITORING -- do not chart) 1 each PRN DAILY PRN MC SEE COMMENTS ; Start 01/15/18 at 08:45; Status UNV Acetaminophen (Tylenol) 650 mg TID PO Last administered on 01/19/18at 09:48; Start 01/15/18 at 14:00 Metoclopramide HCl (Reglan Vial) 5 mg PRN Q6HRS PRN IV NAUSEA/VOMITING 2nd CHOICE; Start 01/15/18 at 16:45 Sertraline HCl (Zoloft) 50 mg DAILY PO Last administered on 01/19/18at 09:49; Start 01/16/18 at 09:00 Quetiapine Fumarate (SEROquel) 12.5 mg PRN Q6HRS PRN PO AGITATION Last administered on 01/17/18at 11:59; Start 01/16/18 at 08:45 Quetiapine Fumarate (SEROquel) 12.5 mg QHS PO Last administered on 01/17/18at 22 :11; Start 01/16/18 at 21:00; Stop 01/18/18 at 09:55; Status DC Metoclopramide HCl (Reglan Vial) 5 mg [id number] IV Last administered on 01/19/18at 05:35; Start 01/16/18 at 18:00 Sodium Chloride 1,000 ml @ 1,000 mls/hr Q1H PRN IV hypotension; Start 01/18/18 at 09:04; Stop 01/18/18 at 15:03; Status DC Info (PHARMACY MONITORING -- do not chart) 1 each PRN DAILY PRN MC SEE COMMENTS ; Start 01/18/18 at 09:15 Info (PHARMACY MONITORING -- do not chart) 1 each PRN DAILY PRN MC SEE COMMENTS ; Start 01/18/18 at 09:15; Status UNV Quetiapine Fumarate (SEROquel) 25 mg QHS PO Last administered on 01/18/18at 20: 37; Start 01/18/18 at 21:00 Active Scripts Active Culturelle (Lactobacillus Rhamnosus Gg) 1 Each Cap.sprink 1 Cap PO BID Metoclopramide Hcl 5 Mg/1 Ml Vial 5 Mg IV PRN Q6HRS PRN Metoclopramide Hcl 5 Mg/1 Ml Vial 5 Mg IV [id number] Ondansetron Hcl 4 Mg/2 Ml Vial (Ondansetron Hcl/Pf) 4 Mg/2 Ml Vial 4 Mg IV PRN Q6HRS PRN Buspirone Hcl 5 Mg Tablet 5 Mg PO TID Quetiapine Fumarate 25 Mg Tablet 12.5 Mg PO PRN Q6HRS PRN Quetiapine Fumarate 25 Mg Tablet 25 Mg PO QHS Sertraline Hcl 50 Mg Tablet 50 Mg PO DAILY Hydrocodone-Apap 7.5-325 (Hydrocodone Bit/Acetaminophen) 1 Each Tablet 1 Tab PO PRN Q8HRS PRN Fentanyl 0.05 Mg/Ml Vial (Fentanyl Citrate/Pf) 50 Mcg/1 Ml Vial 50 Mcg IV PRN Q4HRS PRN [Darbepoetin Ty In Polysorbat] 60 MCG/0.3 ML Disp.syrin 60 Mcg SQ WEEKLYHS Zyvox (Linezolid) 600 Mg Tablet 600 Mg PO BID Vitamin D3 (Cholecalciferol (Vitamin D3)) 1,000 Unit Tablet 1 Tab PO DAILY [Calcium Acetate] 667 MG Capsule 1,334 Mg PO TIDWMEALS Mapap (Acetaminophen) 500 Mg Tablet 1,000 Mg PO TID Carvedilol 12.5 Mg Tablet 12.5 Mg PO BIDWMEALS Minoxidil 2.5 Mg Tablet 2.5 Mg PO BID Isosorbide Mononitrate Er (Isosorbide Mononitrate) 30 Mg Tab.er.24h 120 Mg PO DAILY Montelukast Sodium Tablet (Montelukast Sodium) 10 Mg Tablet 10 Mg PO QHS Polyethylene Glycol 3350 2,500 Gm Powder 17 Gm PO DAILY Novolog Flexpen (Insulin Aspart) 100 Unit/1 Ml Insuln.pen 0 Units SQ TIDAC Take sub q tid ac: BS 151-200=2 unit, 201-250=3 unit, LD512-000, BS 301-350=6 unit, BS 351-400 =8 unit. BS>401 call MD Renetta Busch 10,000 Units Capsule (Lipase/Protease/Amylase) 1 Each Capsule. 2 Cap PO TIDWMEALS TAke 2 cap tid with meals Nephro-Donny Tablet (Folic Acid/Vitamin B Comp W-C) 0.8 Mg Tablet 1 Tab PO DAILY Benadryl (Diphenhydramine Hcl) 25 Mg Capsule 25 Mg PO PRN Q6HRS PRN Reported Nitrostat (Nitroglycerin) 0.4 Mg Tab.subl 0.4 Mg SL PRN Q5MIN PRN Plavix (Clopidogrel Bisulfate) 75 Mg Tablet 1 Tab PO DAILY Zoloft (Sertraline Hcl) 100 Mg Tablet 1 Tab PO DAILY Pantoprazole Sodium 40 Mg Tablet. 1 Tab PO DAILY Losartan Potassium 100 Mg Tablet 100 Mg PO DAILY Aspir 81 (Aspirin) 81 Mg Tablet. 81 Mg PO DAILY Vitals/I & O Vital Sign - Last 24 Hours 01/18/18 01/18/18 01/18/18 01/18/18 12:29 12:54 12:55 12:56 Temp 98.2 98.2 Pulse 81 81 81 81 Resp 18 B/P (MAP) 171/70 (103) 171/70 171/70 171/70 Pulse Ox 98 O2 Delivery Room Air 01/18/18 01/18/18 01/18/18 01/18/18 12:57 14:07 15:00 15:30 Temp 97.4 97.4 Pulse 81 80 Resp 19 18 B/P (MAP) 171/70 142/65 (90) Pulse Ox 98 98 O2 Delivery Room Air Room Air Room Air O2 Flow Rate 10.0 01/18/18 01/18/18 01/18/18 01/18/18 18:04 19:25 19:35 20:38 Temp 98.2 98.2 Pulse 80 80 72 Resp 18 B/P (MAP) 142/65 134/60 (84) 134/60 Pulse Ox 99 O2 Delivery Room Air Room Air 8/14/18 01/19/18 01/19/18 01/19/18 22:50 02:45 07:00 08:00 Temp 98.2 98.4 98.2 98.2 98.4 98.2 Pulse 71 70 74 Resp 18 18 16 B/P (MAP) 163/74 (103) 153/68 (96) 148/47 (80) Pulse Ox 98 97 97 O2 Delivery Room Air Room Air Room Air Room Air 01/19/18 01/19/18 01/19/18 01/19/18 09:47 09:49 09:51 09:52 Pulse 74 74 74 74 B/P (MAP) 148/47 148/47 148/47 148/47 01/19/18 10:55 Temp 97.7 97.7 Pulse 77 Resp 18 B/P (MAP) 139/50 (79) Pulse Ox 97 O2 Delivery Room Air Intake and Output 01/18/18 01/18/18 01/19/18 15:00 23:00 07:00 Intake Total 400 ml 220 ml Balance 400 ml 220 ml Problem List Problems Medical Problems: (1) End stage renal disease Status: Acute Assessment Abdominal complaints seem to be better, though still not eating. Plan of Care: Continue current Tx, PATRICIA Javed MD Jan 19, 2018 11:09
--- NOTE | 2018-01-19 11:59 | PDOC ---
Renal-Progress Notes Subjective Notes Notes NONE History of Present Illness Hx of present illness FLAT AFFECT Vitals Vitals Vital Signs Date Time Temp Pulse Resp B/P (MAP) Pulse Ox O2 Delivery O2 Flow Rate FiO2 01/19/18 10:55 97.7 77 18 139/50 (79) 97 Room Air 97.7 01/18/18 14:07 10.0 Weight Weight [ ] I.O. Intake and Output Intake and Output 01/19/18 07:00 Intake Total 620 ml Balance 620 ml Intake Oral 470 ml IV Total 150 ml Labs Labs Laboratory Tests Test 01/18/18 12:24 01/18/18 16:58 01/18/18 20:30 01/19/18 07:22 Glucose (Fingerstick) 78 mg/dL (70-99) 109 mg/dL (70-99) 110 mg/dL (70-99) 92 mg/dL (70-99) Test 01/19/18 09:30 01/19/18 11:38 White Blood Count 11.0 x10^3/uL (4.0-11.0) Red Blood Count 2.93 x10^6/uL (3.50-5.40) Hemoglobin 8.7 g/dL (12.0-15.5) Hematocrit 25.0 % (36.0-47.0) Mean Corpuscular Volume 85 fL (79-100) Mean Corpuscular Hemoglobin 30 pg (25-35) Mean Corpuscular Hemoglobin Concent 35 g/dL (31-37) Red Cell Distribution Width 19.0 % (11.5-14.5) Platelet Count 181 x10^3/uL (140-400) Neutrophils (%) (Auto) 90 % (31-73) Lymphocytes (%) (Auto) 6 % (24-48) Monocytes (%) (Auto) 3 % (0-9) Eosinophils (%) (Auto) 1 % (0-3) Basophils (%) (Auto) 0 % (0-3) Neutrophils # (Auto) 9.9 x10^3uL (1.8-7.7) Lymphocytes # (Auto) 0.6 x10^3/uL (1.0-4.8) Monocytes # (Auto) 0.3 x10^3/uL (0.0-1.1) Eosinophils # (Auto) 0.2 x10^3/uL (0.0-0.7) Basophils # (Auto) 0.0 x10^3/uL (0.0-0.2) Sodium Level 135 mmol/L (136-145) Potassium Level 4.0 mmol/L (3.5-5.1) Chloride Level 98 mmol/L (98-107) Carbon Dioxide Level 27 mmol/L (21-32) Anion Gap 10 (6-14) Blood Urea Nitrogen 21 mg/dL (7-20) Creatinine 3.7 mg/dL (0.6-1.0) Estimated GFR (Cockcroft-Gault) 15.4 Glucose Level 97 mg/dL (70-99) Calcium Level 9.2 mg/dL (8.5-10.1) Glucose (Fingerstick) 115 mg/dL (70-99) Micro Micro Microbiology 01/08/18 Blood Culture - Final, Complete Review of Systems Constitutional: yes: malaise, alert Ears/Nose/Throat: Yes: no symptom reported Eyes: Yes: no symptom reported Pulmonary: Yes no symptom reported Cardiovascular: Yes no symptom reported Gastrointestional: Yes: no symptom reported Genitourinary: Yes: no symptom reported Musculoskeletal: Yes: no symptom reported Skin: Yes no symptom reported Psychiatric/Neurological: Yes: no symptom reported Endocrine: Yes: no symptom reported Physical Exam General Appearance: no apparent distress Skin: warm Heart: S1S2 Abdomen: soft, bowel sounds present Genitourinary: bladder flat Extremities: pulses present Neurology: alert, oriented Musculoskeletal: Osteoarthritis Assessment Assessment IMP LEUCOCYTOSIS SEPSIS ANEMIA ESRD DM II HTN SACRAL AND ISCHIAL WOUNDS LEUCOCYTOSIS-BETTER PLAN ANTIBIOTICS HD TOMORROW JUAN AGREE WITH TING TATUM MD Jan 19, 2018 11:59
[2018-01-19 15:26] VITALS: BP 127/58
[2018-01-19] MEDS: fentaNYL PF VIAL 100 MCG/2 ML VIAL IV PRN (16:00)
[2018-01-19 19:40] VITALS: BP 106/58
[2018-01-19] MEDS: QUEtiapine 25 MG TABLET. PO SCH (19:46)
[2018-01-19] MEDS: MONTELUKAST SODIUM 10 MG TABLET. PO SCH (19:47)
[2018-01-19] MEDS: diphenhydrAMINE HCL 25 MG CAPSULE PO PRN (23:05)
[2018-01-19] MEDS: HYDROcodone/APAP 7.5/325MG 1 TAB TABLET PO PRN (23:06)
[2018-01-19 23:29] VITALS: BP 137/65
[2018-01-20 03:30] VITALS: BP 136/63
[2018-01-20] MEDS: PANTOPRAZOLE 40 MG TABLET.DR. PO SCH (06:26)
[2018-01-20] MEDS: METOCLOPRAMIDE HCL 10 MG/2 ML VIAL. IV SCH ×2 (06:31→18:08)
[2018-01-20 07:00] VITALS: BP 127/58
[2018-01-20 07:04] LABS: BASO # 0.1 x10^3/uL (0.0-0.2); BASO % 1 % (0-3); EOS # 0.1 x10^3/uL (0.0-0.7); EOS % 1 % (0-3); HEMATOCRIT 23.7 % (36.0-47.0); HEMOGLOBIN 8.1 g/dL (12.0-15.5); LYMPH % 10 % (24-48); MEAN CORPUSCULAR HEMOGLOBIN 29 pg (25-35); MEAN CORPUSCULAR HGB CONC 34 g/dL (31-37); MEAN CORPUSCULAR VOLUME 85 fL (79-100); MONO # 0.5 x10^3/uL (0.0-1.1); MONO % 5 % (0-9); NEUT # 9.1 x10^3uL (1.8-7.7); NEUT % 84 % (31-73); PLATELET COUNT 169 x10^3/uL (140-400); RED BLOOD COUNT 2.79 x10^6/uL (3.50-5.40); RED CELL DISTRIBUTION WIDTH 18.8 % (11.5-14.5); WHITE BLOOD COUNT 10.9 x10^3/uL (4.0-11.0)
[2018-01-20 07:06] LABS: CALCIUM 8.8 mg/dL (8.5-10.1); GFR 10.9; POTASSIUM 4.3 mmol/L (3.5-5.1)
--- NOTE | 2018-01-20 08:27 | PDOC ---
IM PROGRESS NOTES- Subjective Subjective sleepy appropriate Objective Objective no distress Vitals Vital Signs Date Time Temp Pulse Resp B/P (MAP) Pulse Ox O2 Delivery O2 Flow Rate FiO2 01/20/18 07:00 98.6 86 16 127/58 (81) 96 Room Air 98.6 Input & Output Intake and Output 01/20/18 07:00 Intake Total 1150 ml Output Total 0 ml Balance 1150 ml Intake Oral 1000 ml IV Total 150 ml Output Urine Total 0 ml # Bowel Movements 1 Physical Exam Physical Exam General appearance - alert, ill appearing, and in no distress Mental Status - alert, oriented person, place mildly confused, mood affect improving Head - normal Chest - clear to auscultation, decreased bases, + chest wall tenderness Heart - S1 and S2 normal Abdomen - soft, nontender, nondistended,obese, BS +, no guarding no rigidity Neurological - no acute neurological deficit, wakens to name but falls asleep easily Extremities - + edema Skin - warm and dry, wound sacral buttocks dressing in situ Labs Laboratory Tests Test 01/18/18 12:24 01/18/18 16:58 01/18/18 20:30 01/19/18 07:22 Glucose (Fingerstick) 78 mg/dL (70-99) 109 mg/dL (70-99) 110 mg/dL (70-99) 92 mg/dL (70-99) Test 01/19/18 09:30 01/19/18 11:38 01/19/18 16:42 01/19/18 21:11 White Blood Count 11.0 x10^3/uL (4.0-11.0) Red Blood Count 2.93 x10^6/uL (3.50-5.40) Hemoglobin 8.7 g/dL (12.0-15.5) Hematocrit 25.0 % (36.0-47.0) Mean Corpuscular Volume 85 fL (79-100) Mean Corpuscular Hemoglobin 30 pg (25-35) Mean Corpuscular Hemoglobin Concent 35 g/dL (31-37) Red Cell Distribution Width 19.0 % (11.5-14.5) Platelet Count 181 x10^3/uL (140-400) Neutrophils (%) (Auto) 90 % (31-73) Lymphocytes (%) (Auto) 6 % (24-48) Monocytes (%) (Auto) 3 % (0-9) Eosinophils (%) (Auto) 1 % (0-3) Basophils (%) (Auto) 0 % (0-3) Neutrophils # (Auto) 9.9 x10^3uL (1.8-7.7) Lymphocytes # (Auto) 0.6 x10^3/uL (1.0-4.8) Monocytes # (Auto) 0.3 x10^3/uL (0.0-1.1) Eosinophils # (Auto) 0.2 x10^3/uL (0.0-0.7) Basophils # (Auto) 0.0 x10^3/uL (0.0-0.2) Sodium Level 135 mmol/L (136-145) Potassium Level 4.0 mmol/L (3.5-5.1) Chloride Level 98 mmol/L (98-107) Carbon Dioxide Level 27 mmol/L (21-32) Anion Gap 10 (6-14) Blood Urea Nitrogen 21 mg/dL (7-20) Creatinine 3.7 mg/dL (0.6-1.0) Estimated GFR (Cockcroft-Gault) 15.4 Glucose Level 97 mg/dL (70-99) Calcium Level 9.2 mg/dL (8.5-10.1) Glucose (Fingerstick) 115 mg/dL (70-99) 109 mg/dL (70-99) 101 mg/dL (70-99) Test 01/20/18 06:45 01/20/18 07:10 White Blood Count 10.9 x10^3/uL (4.0-11.0) Red Blood Count 2.79 x10^6/uL (3.50-5.40) Hemoglobin 8.1 g/dL (12.0-15.5) Hematocrit 23.7 % (36.0-47.0) Mean Corpuscular Volume 85 fL (79-100) Mean Corpuscular Hemoglobin 29 pg (25-35) Mean Corpuscular Hemoglobin Concent 34 g/dL (31-37) Red Cell Distribution Width 18.8 % (11.5-14.5) Platelet Count 169 x10^3/uL (140-400) Neutrophils (%) (Auto) 84 % (31-73) Lymphocytes (%) (Auto) 10 % (24-48) Monocytes (%) (Auto) 5 % (0-9) Eosinophils (%) (Auto) 1 % (0-3) Basophils (%) (Auto) 1 % (0-3) Neutrophils # (Auto) 9.1 x10^3uL (1.8-7.7) Lymphocytes # (Auto) 1.0 x10^3/uL (1.0-4.8) Monocytes # (Auto) 0.5 x10^3/uL (0.0-1.1) Eosinophils # (Auto) 0.1 x10^3/uL (0.0-0.7) Basophils # (Auto) 0.1 x10^3/uL (0.0-0.2) Sodium Level 134 mmol/L (136-145) Potassium Level 4.3 mmol/L (3.5-5.1) Chloride Level 99 mmol/L (98-107) Carbon Dioxide Level 29 mmol/L (21-32) Anion Gap 6 (6-14) Blood Urea Nitrogen 28 mg/dL (7-20) Creatinine 5.0 mg/dL (0.6-1.0) Estimated GFR (Cockcroft-Gault) 10.9 Glucose Level 85 mg/dL (70-99) Calcium Level 8.8 mg/dL (8.5-10.1) Glucose (Fingerstick) 83 mg/dL (70-99) Laboratory Tests Test 01/19/18 09:30 01/19/18 11:38 01/19/18 16:42 01/19/18 21:11 White Blood Count 11.0 x10^3/uL (4.0-11.0) Red Blood Count 2.93 x10^6/uL (3.50-5.40) Hemoglobin 8.7 g/dL (12.0-15.5) Hematocrit 25.0 % (36.0-47.0) Mean Corpuscular Volume 85 fL (79-100) Mean Corpuscular Hemoglobin 30 pg (25-35) Mean Corpuscular Hemoglobin Concent 35 g/dL (31-37) Red Cell Distribution Width 19.0 % (11.5-14.5) Platelet Count 181 x10^3/uL (140-400) Neutrophils (%) (Auto) 90 % (31-73) Lymphocytes (%) (Auto) 6 % (24-48) Monocytes (%) (Auto) 3 % (0-9) Eosinophils (%) (Auto) 1 % (0-3) Basophils (%) (Auto) 0 % (0-3) Neutrophils # (Auto) 9.9 x10^3uL (1.8-7.7) Lymphocytes # (Auto) 0.6 x10^3/uL (1.0-4.8) Monocytes # (Auto) 0.3 x10^3/uL (0.0-1.1) Eosinophils # (Auto) 0.2 x10^3/uL (0.0-0.7) Basophils # (Auto) 0.0 x10^3/uL (0.0-0.2) Sodium Level 135 mmol/L (136-145) Potassium Level 4.0 mmol/L (3.5-5.1) Chloride Level 98 mmol/L (98-107) Carbon Dioxide Level 27 mmol/L (21-32) Anion Gap 10 (6-14) Blood Urea Nitrogen 21 mg/dL (7-20) Creatinine 3.7 mg/dL (0.6-1.0) Estimated GFR (Cockcroft-Gault) 15.4 Glucose Level 97 mg/dL (70-99) Calcium Level 9.2 mg/dL (8.5-10.1) Glucose (Fingerstick) 115 mg/dL (70-99) 109 mg/dL (70-99) 101 mg/dL (70-99) Test 01/20/18 06:45 01/20/18 07:10 White Blood Count 10.9 x10^3/uL (4.0-11.0) Red Blood Count 2.79 x10^6/uL (3.50-5.40) Hemoglobin 8.1 g/dL (12.0-15.5) Hematocrit 23.7 % (36.0-47.0) Mean Corpuscular Volume 85 fL (79-100) Mean Corpuscular Hemoglobin 29 pg (25-35) Mean Corpuscular Hemoglobin Concent 34 g/dL (31-37) Red Cell Distribution Width 18.8 % (11.5-14.5) Platelet Count 169 x10^3/uL (140-400) Neutrophils (%) (Auto) 84 % (31-73) Lymphocytes (%) (Auto) 10 % (24-48) Monocytes (%) (Auto) 5 % (0-9) Eosinophils (%) (Auto) 1 % (0-3) Basophils (%) (Auto) 1 % (0-3) Neutrophils # (Auto) 9.1 x10^3uL (1.8-7.7) Lymphocytes # (Auto) 1.0 x10^3/uL (1.0-4.8) Monocytes # (Auto) 0.5 x10^3/uL (0.0-1.1) Eosinophils # (Auto) 0.1 x10^3/uL (0.0-0.7) Basophils # (Auto) 0.1 x10^3/uL (0.0-0.2) Sodium Level 134 mmol/L (136-145) Potassium Level 4.3 mmol/L (3.5-5.1) Chloride Level 99 mmol/L (98-107) Carbon Dioxide Level 29 mmol/L (21-32) Anion Gap 6 (6-14) Blood Urea Nitrogen 28 mg/dL (7-20) Creatinine 5.0 mg/dL (0.6-1.0) Estimated GFR (Cockcroft-Gault) 10.9 Glucose Level 85 mg/dL (70-99) Calcium Level 8.8 mg/dL (8.5-10.1) Glucose (Fingerstick) 83 mg/dL (70-99) Assessment Assessment Assessment FINAL DIAGNOSIS: 1. Chest pain - chest wall MS pain not costochondritis- sternal incision pain 2. LLL pneumonia HCFA gram - gram + with sepsis POA 3. sepsis - LLL pneumonia/ probable infected pressure wound sacral/buttocks 4. metabolic encephalopathy 5. acute on chronic anemia ESRD 6. Chest pain with h/o CABG 11/2017 8. Pressure wound coccyx sacrum with black eschar 9. abnormal troponin with h/o NSTEMI 10. End-stage renal disease, on hemodialysis TTS 11. 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 12. History of hyperparathyroidism secondary to end-stage renal disease. 13. Hyperlipidemia. 14. Severe pulmonary hypertension. 15. Asthma. 16. Gastroesophageal reflux disease. 17. CAD with IA unknown age and + small ischemia per [facility] medical management with recent CABG 18. Negative hepatitis C. 19. moderate severe depression recurrent 20. DM II insulin gastroparesis, ESRD 21. severe PCL malnutrition with decreased po intake 22. moderate weakness and debility 23, depression 24. secondary hyperparathyroidism 25. post op CABG L leg paralysis post op 26. Diastolic congestive heart failure with preserved ejection fraction not acute 27. severe PCL malnutrition with underlying moderate PCL malnutrition 28. h/o recent code blue 29. infected sacral ulcer POA s/p debridement to muscle 01/12/18 PLAN: chest pain cardiology following Admit troponin 0.046 leukocytosis/ fever/ question infiltrate LLL Chronic LLL effusion pulmonary following - no further thoracentesis at this time CT chest w/o contrast pending fever/leukocytosis Admit WBC 21.7 today 20.9 ESR 35 CRP 20.9 Pre Calcitonin 2.05 ID following Vancomycin zosyn Prelim BC 1 or 7 + for gram + cocci Anemia/thrombocytopenia Admit Hgb 7.3 decreased to 6.4 and today 7.3 post 1U PRC thrombocytopenia Admit 215 today 123 - monitor - r/t infectious process/ antibiotics Severe depression Zoloft continues pysch consult had been ordered [facility] ESRD hemodialysis continued in patient DVT/GI prophylaxis SCD/JEN PPI Screen LTAC 01/11/18 chest wall pain - improved with Voltaren Gel - CT chest w/o noted mild edema identified in the subcutaneous region of the chest similar to prior exam. pressure wound - wound care note reviewed - will obtain surgical consult to eval for debridement - local wound care started sepsis pneumonia - lab pending - Tm 100.7F last 24 hours - ID following - on zosyn and Vanco abnormal CXR -CT chest 01/10- Left lower lobe lung consolidation with air bronchograms identified likely pneumonia or postobstructive atelectasis. ESRD - HD Admit wt 191# today 185.56# - DM II - BS 81-89 Await [facility] screen Labs pending For further plan of care, please refer to the orders. 01/12/18 wound - to OR today for debridement. continue IV antibiotics sepsis - pneumonia/probable infected pressure wound - Zosyn Vanco continue - fever improved. DM - BS 80-169 encephalopathy - improving slowly Pain control - will begin fentanyl 50mcg q4hr prn pain and continue lortab q8hr prn ESRD - dialysis continues wt. today 179.56 PICC ordered 01/11- nephrology concerned regarding length of need - ID contacted by staff - change order to central line - anesthesia contacted - will insert in surgery. For more details regarding further plans, please refer to the orders. 01/13/18 wound - IV antibiotics zosyn/vanc and micafungin added 01/12. Procedure 01/13/[address] Coulter: Excisional debridement of skin, subcutaneous tissue, muscle 5 cm sacral ulcer with necrotic tissue extending down through skin, subcutaneous tissue to muscle, no bony involvement sepsis - pneumonia/probable infected pressure wound - Zosyn Vanco continue - micafungin added 01/12 DM - 115-205 Anemia - Hgb 7.3 thrombocytopenia r/t med/infection - Admit Plt 215 -lowest 01/12 126 and today improved to 161 encephalopathy - improving slowly Pain control - will begin fentanyl 50mcg q4hr prn pain and continue lortab q8hr prn - less moaning ESRD - dialysis continues wt. today 185.06 [facility] Screen in process. For more details regarding further plans, please refer to the orders. 01/14 LLL pneumonia/pleural effusion - CXR 01/12-worsening infiltrate, effusion wounds - wound care, now with wound vac sepsis - IV Zosyn/Vanco changed to meropenem/zyvox and micafungin continued. leukocytosis - WBC 22.3 ( steroid during surgery) anemia - Hgb 7.2 DM - 151-208 metabolic encephalopathy with underlying severe depression severe depression - currently Zoloft which has been given chronically - consider changing to Wellbutrin - defer to Dr. Ng [facility] denied admission to LTAC - SW requesting peer to peer between [facility] MD and Dr. Ng Refer to Dr. Bright recommendations 01/15/18 Patient vomited this morning. Vomiting is multifactorial. Medications reviewed. Blood pressure is high when she was in distress. Patient was yelling last night. She remains depressed. Leukocytosis is improving. Continue wound care. Decreased her scheduled dose of Tylenol because she is also getting hydrocodone with acetaminophen. Prognosis remains poor. Continue wound care. January 16, 2018 Recurrent vomiting obtain x-rays of the abdomen. Abdomen clinically is benign. This may be due to medications and multifactorial. AgitationI will use a very small dose of Seroquel at bedtime and when necessary Seroquel. DepressionZoloft is not effective and may be also adding to issues such as anxiety and vomiting. I will decrease the dose of Zoloft to 50 mg daily. Leukocytosis is slowly improving. Continue wound care. For more details regarding further plans, please refer to the orders. For more details regarding further plans, please refer to the orders. 01/17/18 severe malnutrition - minimal appetite, continues with nausea, Reglan 5mg bid with q6hr prn n/v - may ETF per dobhoff if continues refusing food, meds - wound healing/weakness severe depression - Zoloft decreased to 50mg daily per Dr. Ng note 01/16 encephalopathy - Seroquel 12.5mg at hs and q6hr prn leukocytosis - CBC pending ESRD - BMP pending. sepsis - zyvox, meropenem and micafungin continues. pneumonia - CXR in AM severe weakness and debility - PT OT ordered. For further plan of care,please refer to the orders. Dr. Ng note: Patient is refusing to eat. She did not have any further vomiting. Discussed with staff. Consider adding Wellbutrin tomorrow. Encouraged patient to eat and take medications. I will hold off on Dobbhoff tube feeding as she may get more agitated and tried to pull it out. Use when necessary Seroquel. Prognosis is very poor. Today's labs are pending. 01/18/18 depression - slight increase in animation - smile at times - reports slightly less depressed - will try to eat infected wound - path= coagulated necrosis with acute cellulitis - remains on meropenem Zyvox and micafungin - WBC decreased to 12.6 anemia - Hgb 7.5 stable DM II - off ssi BS 75-92 malnutrition - Alb 2.1 liver enzyme - AST 39 AP 424 ALT 44 n/v - slight improvement - KUB 09/16 mildly distended bladder pneumonia - CXR pending For further plan of care, please refer to the orders. Dr. Ng note: Mood and affect are improving today per staff.still refuses some meds. Increase HS Seroquel to 25 mg. 01/19/18 depression - continues calm this morning - responding verbally at times infected wound - per staff - wound care reported wound vac not working effectively - wound with slough and may need additional debriding - Dr. Nino to view wound later today anemia - Hgb 7.5 stable DM II - off ssi BS 75-110 malnutrition - slight increase in appetite - approximately 15% intake with meals yesterday liver enzyme - AST 39 AP 424 ALT 44 n/v - slight improvement - KUB 04/12 mildly distended bladder pneumonia -CXR 01/18 -retrocardiac density unchanged: pleural effusion vs atelectasis vs pneumonia Lab pending [facility] contacting insurance to obtain approval for admission. Continue current plan of care. 01/20/18 depression -sleepy, simple answers infected wound - per staff - wound care reported wound vac not working effectively - wound with slough and may need additional debriding - Dr. Nino to view wound later today anemia - Hgb 7.5 stable DM II - off ssi BS 101-115 malnutrition - slight increase in appetite - approximately 15% intake with meals 01/18 liver enzyme - AST 39 AP 424 ALT 44 n/v - slight improvement - KUB /12 mildly distended bladder pneumonia -CXR 01/18 -retrocardiac density unchanged: pleural effusion vs atelectasis vs pneumonia Await decision regarding LTAC, if denied, will need SNU discharge back to [facility]. Oral antibiotics per ID will need added to discharge meds. For more details regarding further plans, please refer to the order. Plan Plan For more details regarding further plans, please refer to the orders. 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
--- NOTE | 2018-01-20 08:35 | PDOC ---
Infectious Disease Note Subjective Subjective pt says she is ok ROS ROS no n/v/d/sob Vital Sign Vital Signs Vital Signs Date Time Temp Pulse Resp B/P (MAP) Pulse Ox O2 Delivery O2 Flow Rate FiO2 01/20/18 07:00 98.6 86 16 127/58 (81) 96 Room Air 98.6 Physical Exam PHYSICAL EXAM GENERAL: NAD, alert and moaning but actually looks better HEENT: Normal conjunctivae. Oral mucosa is pink and dry. No thrush. NECK: No JVD LUNGS: Diminished aeration in the bases. Nonlabored. HEART: S1 and S2. ABDOMEN: Obese. Bowel sounds active. Soft, nontender. EXTREMITIES: 1-2+ edema in lower extremities bilaterally. No cyanosis. SKIN: Warm without generalized rash. Vac in place. wound seen, necrotic large wound very close to bone, no exposed bone, LUE, AV fistula unremarkable. RIJ - clean NEUROLOGIC: Alert and answering questions Labs Lab Laboratory Tests Test 01/19/18 09:30 01/19/18 11:38 01/19/18 16:42 01/19/18 21:11 White Blood Count 11.0 x10^3/uL (4.0-11.0) Red Blood Count 2.93 x10^6/uL (3.50-5.40) Hemoglobin 8.7 g/dL (12.0-15.5) Hematocrit 25.0 % (36.0-47.0) Mean Corpuscular Volume 85 fL (79-100) Mean Corpuscular Hemoglobin 30 pg (25-35) Mean Corpuscular Hemoglobin Concent 35 g/dL (31-37) Red Cell Distribution Width 19.0 % (11.5-14.5) Platelet Count 181 x10^3/uL (140-400) Neutrophils (%) (Auto) 90 % (31-73) Lymphocytes (%) (Auto) 6 % (24-48) Monocytes (%) (Auto) 3 % (0-9) Eosinophils (%) (Auto) 1 % (0-3) Basophils (%) (Auto) 0 % (0-3) Neutrophils # (Auto) 9.9 x10^3uL (1.8-7.7) Lymphocytes # (Auto) 0.6 x10^3/uL (1.0-4.8) Monocytes # (Auto) 0.3 x10^3/uL (0.0-1.1) Eosinophils # (Auto) 0.2 x10^3/uL (0.0-0.7) Basophils # (Auto) 0.0 x10^3/uL (0.0-0.2) Sodium Level 135 mmol/L (136-145) Potassium Level 4.0 mmol/L (3.5-5.1) Chloride Level 98 mmol/L (98-107) Carbon Dioxide Level 27 mmol/L (21-32) Anion Gap 10 (6-14) Blood Urea Nitrogen 21 mg/dL (7-20) Creatinine 3.7 mg/dL (0.6-1.0) Estimated GFR (Cockcroft-Gault) 15.4 Glucose Level 97 mg/dL (70-99) Calcium Level 9.2 mg/dL (8.5-10.1) Glucose (Fingerstick) 115 mg/dL (70-99) 109 mg/dL (70-99) 101 mg/dL (70-99) Test 01/20/18 06:45 01/20/18 07:10 White Blood Count 10.9 x10^3/uL (4.0-11.0) Red Blood Count 2.79 x10^6/uL (3.50-5.40) Hemoglobin 8.1 g/dL (12.0-15.5) Hematocrit 23.7 % (36.0-47.0) Mean Corpuscular Volume 85 fL (79-100) Mean Corpuscular Hemoglobin 29 pg (25-35) Mean Corpuscular Hemoglobin Concent 34 g/dL (31-37) Red Cell Distribution Width 18.8 % (11.5-14.5) Platelet Count 169 x10^3/uL (140-400) Neutrophils (%) (Auto) 84 % (31-73) Lymphocytes (%) (Auto) 10 % (24-48) Monocytes (%) (Auto) 5 % (0-9) Eosinophils (%) (Auto) 1 % (0-3) Basophils (%) (Auto) 1 % (0-3) Neutrophils # (Auto) 9.1 x10^3uL (1.8-7.7) Lymphocytes # (Auto) 1.0 x10^3/uL (1.0-4.8) Monocytes # (Auto) 0.5 x10^3/uL (0.0-1.1) Eosinophils # (Auto) 0.1 x10^3/uL (0.0-0.7) Basophils # (Auto) 0.1 x10^3/uL (0.0-0.2) Sodium Level 134 mmol/L (136-145) Potassium Level 4.3 mmol/L (3.5-5.1) Chloride Level 99 mmol/L (98-107) Carbon Dioxide Level 29 mmol/L (21-32) Anion Gap 6 (6-14) Blood Urea Nitrogen 28 mg/dL (7-20) Creatinine 5.0 mg/dL (0.6-1.0) Estimated GFR (Cockcroft-Gault) 10.9 Glucose Level 85 mg/dL (70-99) Calcium Level 8.8 mg/dL (8.5-10.1) Glucose (Fingerstick) 83 mg/dL (70-99) Micro Microbiology 01/08/18 Blood Culture - Final, Complete Objective Assessment 1. Leukocytosis - stable but also s/p PRBCs. Now post op and s/p dexamethasone 01/12 - better 2. Fever - improved. 3. Pressure wounds of sacral and left ischial areas, present on admission - s/ p I and D 01/12 - no bone involvement 4. H/o Left pleural effusion now ? pneumonia on CT. 5. Acute anemia. 6. Chronic kidney disease, on hemodialysis via arteriovenous fistula. 7. Status post coronary artery bypass grafting in November 2017 at [facility]. 8. Chronic heart failure. 9. Diabetes mellitus, type 2. 10. History of cerebrovascular accident with left-sided weakness and is chair bound. 11. 06/13 bottles + 01/08 Severe depression Plan Plan of Care Cont Meropenem/d/c Zyvox/ micafungin ,, prognosis poor f/u am labs and BC with 06/13 positive,,, ? no ID, likely contaminant Wound care eval of sternal wound Local wound care and offloading Would benefit from LTAC ability to care for wounds/administer IV abx but also Psych availability given her severe depression Insurance company denied pt to go to SNF D/w nursing. f/u with us in 2 wks ILIANA BA MD Jan 20, 2018 08:35
[2018-01-20] MEDS: busPIRone 5 MG TABLET. PO SCH ×3 (08:50→19:48)
[2018-01-20] MEDS: CHOLECALCIFEROL (VITAMIN D3) 1,000 UNIT TABLET PO SCH (08:50)
[2018-01-20] MEDS: LIPASE/PROTEAS/AMYLAS 10/32/42 CAPSULE.DR. PO SCH ×3 (08:50→18:08)
[2018-01-20] MEDS: SERTRALINE 50 MG TABLET. PO SCH (08:50)
[2018-01-20] MEDS: FOLIC/VIT B COMP W-C (RENAL) TABLET. PO SCH (08:50)
[2018-01-20] MEDS: ACETAMINOPHEN 325 MG TABLET. PO SCH ×3 (08:50→19:48)
[2018-01-20] MEDS: LACTOBACILLUS RHAMNOSUS GG 1 CAPSULE. PO SCH ×2 (08:50→19:50)
[2018-01-20] MEDS: MINOXIDIL 2.5 MG TABLET PO SCH ×2 (08:51→19:49)
[2018-01-20] MEDS: LOSARTAN POTASSIUM 50 MG TABLET. PO SCH (08:51)
[2018-01-20] MEDS: CARVEDILOL 12.5 MG TABLET. PO SCH ×2 (08:51→18:08)
[2018-01-20] MEDS: MEROPENEM 500 MG in IV NORMAL SALINE 50ML 50 ML IV SCH (08:52)
[2018-01-20] MEDS: ISOSORBIDE MONONITRATE ER 30 MG TAB.ER.24H PO SCH (08:59)
[2018-01-20] MEDS: DICLOFENAC SODIUM 1% TOPICAL GEL 100GM TUBE. TP SCH ×3 (09:00→19:48)
[2018-01-20] MEDS: POLYETHYLENE GLYCOL 3350 17 GM PACKET. PO SCH (09:00)
[2018-01-20] MEDS ORDERED: IV NORMAL SALINE 1000ML BAG 1,000 ML IV PRN ×2 (09:51)
[2018-01-20] MEDS ORDERED: diphenhydrAMINE 50 MG/ML VIAL IV PRN ×2 (10:00)
[2018-01-20] MEDS ORDERED: DIALYSIS PATIENT. MC PRN (10:00)
[2018-01-20] MEDS ORDERED: 0.9 % SODIUM CHLORIDE 10 ML DISP.SYRIN. IV PRN ×2 (10:00)
--- NOTE | 2018-01-20 10:51 | PDOC ---
Objective: Objective: D/w RN - refusing to eat today, doesn't talk much. No complaints of nausea or abd pain. DC discussed to [facility] or [facility] - pending acceptance. Dialysis nurse thinks she's better today than she has been. Sleeping now. Vital Signs: Vital Signs Date Time Temp Pulse Resp B/P (MAP) Pulse Ox O2 Delivery O2 Flow Rate FiO2 01/20/18 08:59 86 127/58 01/20/18 08:00 Room Air 01/20/18 07:00 98.6 16 96 98.6 Labs: Laboratory Tests Test 01/19/18 11:38 01/19/18 16:42 01/19/18 21:11 01/20/18 06:45 Glucose (Fingerstick) 115 mg/dL 109 mg/dL 101 mg/dL White Blood Count 10.9 x10^3/uL Red Blood Count 2.79 x10^6/uL Hemoglobin 8.1 g/dL Hematocrit 23.7 % Mean Corpuscular Volume 85 fL Mean Corpuscular Hemoglobin 29 pg Mean Corpuscular Hemoglobin Concent 34 g/dL Red Cell Distribution Width 18.8 % Platelet Count 169 x10^3/uL Neutrophils (%) (Auto) 84 % Lymphocytes (%) (Auto) 10 % Monocytes (%) (Auto) 5 % Eosinophils (%) (Auto) 1 % Basophils (%) (Auto) 1 % Neutrophils # (Auto) 9.1 x10^3uL Lymphocytes # (Auto) 1.0 x10^3/uL Monocytes # (Auto) 0.5 x10^3/uL Eosinophils # (Auto) 0.1 x10^3/uL Basophils # (Auto) 0.1 x10^3/uL Sodium Level 134 mmol/L Potassium Level 4.3 mmol/L Chloride Level 99 mmol/L Carbon Dioxide Level 29 mmol/L Anion Gap 6 Blood Urea Nitrogen 28 mg/dL Creatinine 5.0 mg/dL Estimated GFR (Cockcroft-Gault) 10.9 Glucose Level 85 mg/dL Calcium Level 8.8 mg/dL Test 01/20/18 07:10 Glucose (Fingerstick) 83 mg/dL PE: GEN: dialyzing NEURO/PSYCH: sleeping, not awakened A/P: Chronic abd complaints -- Refusing to eat. Supportive care and encouragement, await DC. ALL GONZALEZ Jan 20, 2018 10:51
--- NOTE | 2018-01-20 11:51 | PDOC ---
Renal-Progress Notes Subjective Notes Notes NONE History of Present Illness Hx of present illness NO CHANGE Vitals Vitals Vital Signs Date Time Temp Pulse Resp B/P (MAP) Pulse Ox O2 Delivery O2 Flow Rate FiO2 01/20/18 08:59 86 127/58 01/20/18 08:00 Room Air 01/20/18 07:00 98.6 16 96 98.6 Weight Weight [ ] I.O. Intake and Output Intake and Output 01/20/18 07:00 Intake Total 1150 ml Output Total 0 ml Balance 1150 ml Intake Oral 1000 ml IV Total 150 ml Output Urine Total 0 ml # Bowel Movements 1 Labs Labs Laboratory Tests Test 01/19/18 16:42 01/19/18 21:11 01/20/18 06:45 01/20/18 07:10 Glucose (Fingerstick) 109 mg/dL (70-99) 101 mg/dL (70-99) 83 mg/dL (70-99) White Blood Count 10.9 x10^3/uL (4.0-11.0) Red Blood Count 2.79 x10^6/uL (3.50-5.40) Hemoglobin 8.1 g/dL (12.0-15.5) Hematocrit 23.7 % (36.0-47.0) Mean Corpuscular Volume 85 fL (79-100) Mean Corpuscular Hemoglobin 29 pg (25-35) Mean Corpuscular Hemoglobin Concent 34 g/dL (31-37) Red Cell Distribution Width 18.8 % (11.5-14.5) Platelet Count 169 x10^3/uL (140-400) Neutrophils (%) (Auto) 84 % (31-73) Lymphocytes (%) (Auto) 10 % (24-48) Monocytes (%) (Auto) 5 % (0-9) Eosinophils (%) (Auto) 1 % (0-3) Basophils (%) (Auto) 1 % (0-3) Neutrophils # (Auto) 9.1 x10^3uL (1.8-7.7) Lymphocytes # (Auto) 1.0 x10^3/uL (1.0-4.8) Monocytes # (Auto) 0.5 x10^3/uL (0.0-1.1) Eosinophils # (Auto) 0.1 x10^3/uL (0.0-0.7) Basophils # (Auto) 0.1 x10^3/uL (0.0-0.2) Sodium Level 134 mmol/L (136-145) Potassium Level 4.3 mmol/L (3.5-5.1) Chloride Level 99 mmol/L (98-107) Carbon Dioxide Level 29 mmol/L (21-32) Anion Gap 6 (6-14) Blood Urea Nitrogen 28 mg/dL (7-20) Creatinine 5.0 mg/dL (0.6-1.0) Estimated GFR (Cockcroft-Gault) 10.9 Glucose Level 85 mg/dL (70-99) Calcium Level 8.8 mg/dL (8.5-10.1) Micro Micro Microbiology 01/08/18 Blood Culture - Final, Complete 01/08/18 Blood Culture Result 1 (MEENU) - Final, Complete 01/08/18 Antimicrobic Susceptibility - Final, Complete Review of Systems Constitutional: yes: malaise, alert Ears/Nose/Throat: Yes: no symptom reported Eyes: Yes: no symptom reported Pulmonary: Yes no symptom reported Cardiovascular: Yes no symptom reported Gastrointestional: Yes: no symptom reported Genitourinary: Yes: no symptom reported Musculoskeletal: Yes: no symptom reported Skin: Yes no symptom reported Psychiatric/Neurological: Yes: no symptom reported Endocrine: Yes: no symptom reported Physical Exam General Appearance: no apparent distress Skin: warm Heart: S1S2 Abdomen: soft, bowel sounds present Genitourinary: bladder flat Extremities: pulses present Neurology: alert, oriented Musculoskeletal: Osteoarthritis Assessment Assessment IMP LEUCOCYTOSIS SEPSIS ANEMIA ESRD DM II HTN SACRAL AND ISCHIAL WOUNDS LEUCOCYTOSIS-BETTER PLAN ANTIBIOTICS HD TODAY UF TO TING BARKSDALE MD Jan 20, 2018 11:51
[2018-01-20 15:00] VITALS: BP 123/68
[2018-01-20] MEDS: HYDROcodone/APAP 7.5/325MG 1 TAB TABLET PO PRN (15:05)
[2018-01-20 19:00] VITALS: BP 146/67
[2018-01-20] MEDS: MONTELUKAST SODIUM 10 MG TABLET. PO SCH (19:48)
[2018-01-20] MEDS: QUEtiapine 25 MG TABLET. PO SCH (19:49)
[2018-01-20] MEDS: diphenhydrAMINE HCL 25 MG CAPSULE PO PRN (19:49)
[2018-01-20 23:23] VITALS: BP 161/72
[2018-01-21 03:00] VITALS: BP 104/51
[2018-01-21] MEDS: PANTOPRAZOLE 40 MG TABLET.DR. PO SCH (05:41)
[2018-01-21] MEDS: METOCLOPRAMIDE HCL 10 MG/2 ML VIAL. IV SCH (05:41)
[2018-01-21 05:53] LABS: BASO % 0 % (0-3); EOS # 0.1 x10^3/uL (0.0-0.7); EOS % 1 % (0-3); HEMATOCRIT 23.7 % (36.0-47.0); HEMOGLOBIN 8.1 g/dL (12.0-15.5); LYMPH # 0.9 x10^3/uL (1.0-4.8); LYMPH % 9 % (24-48); MEAN CORPUSCULAR HEMOGLOBIN 29 pg (25-35); MEAN CORPUSCULAR HGB CONC 34 g/dL (31-37); MEAN CORPUSCULAR VOLUME 85 fL (79-100); MONO # 0.5 x10^3/uL (0.0-1.1); MONO % 5 % (0-9); NEUT # 8.5 x10^3uL (1.8-7.7); NEUT % 85 % (31-73); PLATELET COUNT 150 x10^3/uL (140-400); RED BLOOD COUNT 2.81 x10^6/uL (3.50-5.40); RED CELL DISTRIBUTION WIDTH 18.6 % (11.5-14.5)
[2018-01-21 06:02] LABS: CALCIUM 8.8 mg/dL (8.5-10.1); CREATININE 3.5 mg/dL (0.6-1.0); GFR 16.4; POTASSIUM 3.9 mmol/L (3.5-5.1)
[2018-01-21 07:45] VITALS: BP 147/67
--- NOTE | 2018-01-21 08:15 | PDOC ---
KENDELLDeeRUT LANDON BREWERY REPRESENTATIVE 01/21/18 0815: IM PROGRESS NOTES- Subjective Subjective sleepy appropriate Objective Objective no distress Vitals Vital Signs Date Time Temp Pulse Resp B/P (MAP) Pulse Ox O2 Delivery O2 Flow Rate FiO2 01/21/18 03:00 98.4 72 12 104/51 (68) 96 Room Air 98.4 01/20/18 20:00 10.0 Input & Output Intake and Output 01/21/18 07:00 Intake Total 320 ml Output Total 0 ml Balance 320 ml Intake Oral 320 ml Output Urine Total 0 ml Physical Exam Physical Exam General appearance - alert, ill appearing, and in no distress Mental Status - alert, oriented person, place mildly confused, mood affect improving Head - normal Chest - clear to auscultation, decreased bases, + chest wall tenderness Heart - S1 and S2 normal Abdomen - soft, nontender, nondistended,obese, BS +, no guarding no rigidity Neurological - no acute neurological deficit, wakens to name but falls asleep easily Extremities - + edema Skin - warm and dry, wound sacral buttocks dressing in situ Labs Laboratory Tests Test 01/19/18 09:30 01/19/18 11:38 01/19/18 16:42 01/19/18 21:11 White Blood Count 11.0 x10^3/uL (4.0-11.0) Red Blood Count 2.93 x10^6/uL (3.50-5.40) Hemoglobin 8.7 g/dL (12.0-15.5) Hematocrit 25.0 % (36.0-47.0) Mean Corpuscular Volume 85 fL (79-100) Mean Corpuscular Hemoglobin 30 pg (25-35) Mean Corpuscular Hemoglobin Concent 35 g/dL (31-37) Red Cell Distribution Width 19.0 % (11.5-14.5) Platelet Count 181 x10^3/uL (140-400) Neutrophils (%) (Auto) 90 % (31-73) Lymphocytes (%) (Auto) 6 % (24-48) Monocytes (%) (Auto) 3 % (0-9) Eosinophils (%) (Auto) 1 % (0-3) Basophils (%) (Auto) 0 % (0-3) Neutrophils # (Auto) 9.9 x10^3uL (1.8-7.7) Lymphocytes # (Auto) 0.6 x10^3/uL (1.0-4.8) Monocytes # (Auto) 0.3 x10^3/uL (0.0-1.1) Eosinophils # (Auto) 0.2 x10^3/uL (0.0-0.7) Basophils # (Auto) 0.0 x10^3/uL (0.0-0.2) Sodium Level 135 mmol/L (136-145) Potassium Level 4.0 mmol/L (3.5-5.1) Chloride Level 98 mmol/L (98-107) Carbon Dioxide Level 27 mmol/L (21-32) Anion Gap 10 (6-14) Blood Urea Nitrogen 21 mg/dL (7-20) Creatinine 3.7 mg/dL (0.6-1.0) Estimated GFR (Cockcroft-Gault) 15.4 Glucose Level 97 mg/dL (70-99) Calcium Level 9.2 mg/dL (8.5-10.1) Glucose (Fingerstick) 115 mg/dL (70-99) 109 mg/dL (70-99) 101 mg/dL (70-99) Test 01/20/18 06:45 01/20/18 07:10 01/20/18 17:06 01/20/18 20:43 White Blood Count 10.9 x10^3/uL (4.0-11.0) Red Blood Count 2.79 x10^6/uL (3.50-5.40) Hemoglobin 8.1 g/dL (12.0-15.5) Hematocrit 23.7 % (36.0-47.0) Mean Corpuscular Volume 85 fL (79-100) Mean Corpuscular Hemoglobin 29 pg (25-35) Mean Corpuscular Hemoglobin Concent 34 g/dL (31-37) Red Cell Distribution Width 18.8 % (11.5-14.5) Platelet Count 169 x10^3/uL (140-400) Neutrophils (%) (Auto) 84 % (31-73) Lymphocytes (%) (Auto) 10 % (24-48) Monocytes (%) (Auto) 5 % (0-9) Eosinophils (%) (Auto) 1 % (0-3) Basophils (%) (Auto) 1 % (0-3) Neutrophils # (Auto) 9.1 x10^3uL (1.8-7.7) Lymphocytes # (Auto) 1.0 x10^3/uL (1.0-4.8) Monocytes # (Auto) 0.5 x10^3/uL (0.0-1.1) Eosinophils # (Auto) 0.1 x10^3/uL (0.0-0.7) Basophils # (Auto) 0.1 x10^3/uL (0.0-0.2) Sodium Level 134 mmol/L (136-145) Potassium Level 4.3 mmol/L (3.5-5.1) Chloride Level 99 mmol/L (98-107) Carbon Dioxide Level 29 mmol/L (21-32) Anion Gap 6 (6-14) Blood Urea Nitrogen 28 mg/dL (7-20) Creatinine 5.0 mg/dL (0.6-1.0) Estimated GFR (Cockcroft-Gault) 10.9 Glucose Level 85 mg/dL (70-99) Calcium Level 8.8 mg/dL (8.5-10.1) Glucose (Fingerstick) 83 mg/dL (70-99) 97 mg/dL (70-99) 106 mg/dL (70-99) Test 01/21/18 05:45 White Blood Count 10.0 x10^3/uL (4.0-11.0) Red Blood Count 2.81 x10^6/uL (3.50-5.40) Hemoglobin 8.1 g/dL (12.0-15.5) Hematocrit 23.7 % (36.0-47.0) Mean Corpuscular Volume 85 fL (79-100) Mean Corpuscular Hemoglobin 29 pg (25-35) Mean Corpuscular Hemoglobin Concent 34 g/dL (31-37) Red Cell Distribution Width 18.6 % (11.5-14.5) Platelet Count 150 x10^3/uL (140-400) Neutrophils (%) (Auto) 85 % (31-73) Lymphocytes (%) (Auto) 9 % (24-48) Monocytes (%) (Auto) 5 % (0-9) Eosinophils (%) (Auto) 1 % (0-3) Basophils (%) (Auto) 0 % (0-3) Neutrophils # (Auto) 8.5 x10^3uL (1.8-7.7) Lymphocytes # (Auto) 0.9 x10^3/uL (1.0-4.8) Monocytes # (Auto) 0.5 x10^3/uL (0.0-1.1) Eosinophils # (Auto) 0.1 x10^3/uL (0.0-0.7) Basophils # (Auto) 0.0 x10^3/uL (0.0-0.2) Sodium Level 133 mmol/L (136-145) Potassium Level 3.9 mmol/L (3.5-5.1) Chloride Level 98 mmol/L (98-107) Carbon Dioxide Level 30 mmol/L (21-32) Anion Gap 5 (6-14) Blood Urea Nitrogen 17 mg/dL (7-20) Creatinine 3.5 mg/dL (0.6-1.0) Estimated GFR (Cockcroft-Gault) 16.4 Glucose Level 79 mg/dL (70-99) Calcium Level 8.8 mg/dL (8.5-10.1) Laboratory Tests Test 01/20/18 17:06 01/20/18 20:43 01/21/18 05:45 Glucose (Fingerstick) 97 mg/dL (70-99) 106 mg/dL (70-99) White Blood Count 10.0 x10^3/uL (4.0-11.0) Red Blood Count 2.81 x10^6/uL (3.50-5.40) Hemoglobin 8.1 g/dL (12.0-15.5) Hematocrit 23.7 % (36.0-47.0) Mean Corpuscular Volume 85 fL (79-100) Mean Corpuscular Hemoglobin 29 pg (25-35) Mean Corpuscular Hemoglobin Concent 34 g/dL (31-37) Red Cell Distribution Width 18.6 % (11.5-14.5) Platelet Count 150 x10^3/uL (140-400) Neutrophils (%) (Auto) 85 % (31-73) Lymphocytes (%) (Auto) 9 % (24-48) Monocytes (%) (Auto) 5 % (0-9) Eosinophils (%) (Auto) 1 % (0-3) Basophils (%) (Auto) 0 % (0-3) Neutrophils # (Auto) 8.5 x10^3uL (1.8-7.7) Lymphocytes # (Auto) 0.9 x10^3/uL (1.0-4.8) Monocytes # (Auto) 0.5 x10^3/uL (0.0-1.1) Eosinophils # (Auto) 0.1 x10^3/uL (0.0-0.7) Basophils # (Auto) 0.0 x10^3/uL (0.0-0.2) Sodium Level 133 mmol/L (136-145) Potassium Level 3.9 mmol/L (3.5-5.1) Chloride Level 98 mmol/L (98-107) Carbon Dioxide Level 30 mmol/L (21-32) Anion Gap 5 (6-14) Blood Urea Nitrogen 17 mg/dL (7-20) Creatinine 3.5 mg/dL (0.6-1.0) Estimated GFR (Cockcroft-Gault) 16.4 Glucose Level 79 mg/dL (70-99) Calcium Level 8.8 mg/dL (8.5-10.1) Meds Current Medications Diphenhydramine HCl (Benadryl) 25 mg 1X PRN PRN IV ITCHING; Start 01/20/18 at 10:00; Stop 01/21/18 at 09:59 Diphenhydramine HCl (Benadryl) 25 mg 1X PRN PRN IV ITCHING; Start 01/20/18 at 10:00; Stop 01/21/18 at 09:59; Status UNV Info (PHARMACY MONITORING -- do not chart) 1 each PRN DAILY PRN MC SEE COMMENTS ; Start 01/20/18 at 10:00 Sodium Chloride 1,000 ml @ 400 mls/hr Q2H30M PRN IV PATENCY; Start 01/20/18 at 09:51; Stop 01/20/18 at 21:50; Status DC Sodium Chloride 1,000 ml @ 1,000 mls/hr Q1H PRN IV hypotension; Start 01/20/18 at 09:51; Stop 01/20/18 at 15:50; Status DC Sodium Chloride (Normal Saline Flush) 10 ml 1X PRN PRN IV DIRECTOR SURFACE TRANSPORTATION catheter pack; Start 01/20/18 at 10:00; Stop 01/21/18 at 09:59 Sodium Chloride (Normal Saline Flush) 10 ml 1X PRN PRN IV AP catheter pack; Start 01/20/18 at 10:00; Stop 01/21/18 at 09:59; Status UNV Assessment Assessment Assessment FINAL DIAGNOSIS: 1. Chest pain - chest wall MS pain not costochondritis- sternal incision pain 2. LLL pneumonia HCFA gram - gram + with sepsis POA 3. sepsis - LLL pneumonia/ probable infected pressure wound sacral/buttocks 4. metabolic encephalopathy 5. acute on chronic anemia ESRD 6. Chest pain with h/o CABG 11/2017 8. Pressure wound coccyx sacrum with black eschar 9. abnormal troponin with h/o NSTEMI 10. End-stage renal disease, on hemodialysis TTS 11. 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 12. History of hyperparathyroidism secondary to end-stage renal disease. 13. Hyperlipidemia. 14. Severe pulmonary hypertension. 15. Asthma. 16. Gastroesophageal reflux disease. 17. CAD with ME unknown age and + small ischemia per [facility] medical management with recent CABG 18. Negative hepatitis C. 19. moderate severe depression recurrent 20. DM II insulin gastroparesis, ESRD 21. severe PCL malnutrition with decreased po intake 22. moderate weakness and debility 23, depression 24. secondary hyperparathyroidism 25. post op CABG L leg paralysis post op 26. Diastolic congestive heart failure with preserved ejection fraction not acute 27. severe PCL malnutrition with underlying moderate PCL malnutrition 28. h/o recent code blue 29. infected sacral ulcer POA s/p debridement to muscle 01/12/18 PLAN: chest pain cardiology following Admit troponin 0.046 leukocytosis/ fever/ question infiltrate LLL Chronic LLL effusion pulmonary following - no further thoracentesis at this time CT chest w/o contrast pending fever/leukocytosis Admit WBC 21.7 today 20.9 ESR 35 CRP 20.9 Pre Calcitonin 2.05 ID following Vancomycin zosyn Prelim BC 1 or 7 + for gram + cocci Anemia/thrombocytopenia Admit Hgb 7.3 decreased to 6.4 and today 7.3 post 1U PRC thrombocytopenia Admit 215 today 123 - monitor - r/t infectious process/ antibiotics Severe depression Zoloft continues pysch consult had been ordered [facility] ESRD hemodialysis continued in patient DVT/GI prophylaxis SCD/JEN PPI Screen LTAC 01/11/18 chest wall pain - improved with Voltaren Gel - CT chest w/o noted mild edema identified in the subcutaneous region of the chest similar to prior exam. pressure wound - wound care note reviewed - will obtain surgical consult to eval for debridement - local wound care started sepsis pneumonia - lab pending - Tm 100.7F last 24 hours - ID following - on zosyn and Vanco abnormal CXR -CT chest 01/10- Left lower lobe lung consolidation with air bronchograms identified likely pneumonia or postobstructive atelectasis. ESRD - HD Admit wt 191# today 185.56# - DM II - BS 81-89 Await [facility] screen Labs pending For further plan of care, please refer to the orders. 01/12/18 wound - to OR today for debridement. continue IV antibiotics sepsis - pneumonia/probable infected pressure wound - Zosyn Vanco continue - fever improved. DM - BS 80-169 encephalopathy - improving slowly Pain control - will begin fentanyl 50mcg q4hr prn pain and continue lortab q8hr prn ESRD - dialysis continues wt. today 179.56 PICC ordered 01/11- nephrology concerned regarding length of need - ID contacted by staff - change order to central line - anesthesia contacted - will insert in surgery. For more details regarding further plans, please refer to the orders. 01/13/18 wound - IV antibiotics zosyn/vanc and micafungin added 01/12. Procedure 01/13/[address] Coulter: Excisional debridement of skin, subcutaneous tissue, muscle 5 cm sacral ulcer with necrotic tissue extending down through skin, subcutaneous tissue to muscle, no bony involvement sepsis - pneumonia/probable infected pressure wound - Zosyn Vanco continue - micafungin added 01/12 DM - 115-205 Anemia - Hgb 7.3 thrombocytopenia r/t med/infection - Admit Plt 215 -lowest 01/12 126 and today improved to 161 encephalopathy - improving slowly Pain control - will begin fentanyl 50mcg q4hr prn pain and continue lortab q8hr prn - less moaning ESRD - dialysis continues wt. today 185.06 [facility] Screen in process. For more details regarding further plans, please refer to the orders. 01/14 LLL pneumonia/pleural effusion - CXR 01/12-worsening infiltrate, effusion wounds - wound care, now with wound vac sepsis - IV Zosyn/Vanco changed to meropenem/zyvox and micafungin continued. leukocytosis - WBC 22.3 ( steroid during surgery) anemia - Hgb 7.2 DM - 151-208 metabolic encephalopathy with underlying severe depression severe depression - currently Zoloft which has been given chronically - consider changing to Wellbutrin - defer to Dr. Ng [facility] denied admission to LTAC - requesting peer to peer between [facility] MD and Dr. Ng Refer to Dr. Bright recommendations 01/15/18 Patient vomited this morning. Vomiting is multifactorial. Medications reviewed. Blood pressure is high when she was in distress. Patient was yelling last night. She remains depressed. Leukocytosis is improving. Continue wound care. Decreased her scheduled dose of Tylenol because she is also getting hydrocodone with acetaminophen. Prognosis remains poor. Continue wound care. January 16, 2018 Recurrent vomiting obtain x-rays of the abdomen. Abdomen clinically is benign. This may be due to medications and multifactorial. AgitationI will use a very small dose of Seroquel at bedtime and when necessary Seroquel. DepressionZoloft is not effective and may be also adding to issues such as anxiety and vomiting. I will decrease the dose of Zoloft to 50 mg daily. Leukocytosis is slowly improving. Continue wound care. For more details regarding further plans, please refer to the orders. For more details regarding further plans, please refer to the orders. 01/17/18 severe malnutrition - minimal appetite, continues with nausea, Reglan 5mg bid with q6hr prn n/v - october ETF per dobhoff if continues refusing food, meds - wound healing/weakness severe depression - Zoloft decreased to 50mg daily per Dr. Ng note 01/16 encephalopathy - Seroquel 12.5mg at hs and q6hr prn leukocytosis - CBC pending ESRD - BMP pending. sepsis - zyvox, meropenem and micafungin continues. pneumonia - CXR in AM severe weakness and debility - PT OT ordered. For further plan of care,please refer to the orders. Dr. Ng note: Patient is refusing to eat. She did not have any further vomiting. Discussed with staff. Consider adding Wellbutrin tomorrow. Encouraged patient to eat and take medications. I will hold off on Dobbhoff tube feeding as she may get more agitated and tried to pull it out. Use when necessary Seroquel. Prognosis is very poor. Today's labs are pending. 01/18/18 depression - slight increase in animation - smile at times - reports slightly less depressed - will try to eat infected wound - path= coagulated necrosis with acute cellulitis - remains on meropenem Zyvox and micafungin - WBC decreased to 12.6 anemia - Hgb 7.5 stable DM II - off ssi BS 75-92 malnutrition - Alb 2.1 liver enzyme - AST 39 AP 424 ALT 44 n/v - slight improvement - KUB 04/12 mildly distended bladder pneumonia - CXR pending For further plan of care, please refer to the orders. Dr. Ng note: Mood and affect are improving today per staff.still refuses some meds. Increase HS Seroquel to 25 mg. 01/19/18 depression - continues calm this morning - responding verbally at times infected wound - per staff - wound care reported wound vac not working effectively - wound with slough and may need additional debriding - Dr. Nino to view wound later today anemia - Hgb 7.5 stable DM II - off ssi BS 75-110 malnutrition - slight increase in appetite - approximately 15% intake with meals yesterday liver enzyme - AST 39 AP 424 ALT 44 n/v - slight improvement - KUB 04/12 mildly distended bladder pneumonia -CXR 01/18 -retrocardiac density unchanged: pleural effusion vs atelectasis vs pneumonia Lab pending [facility] contacting insurance to obtain approval for admission. Continue current plan of care. 01/20/18 depression -sleepy, simple answers infected wound - per staff - wound care reported wound vac not working effectively - wound with slough and may need additional debriding - Dr. Nino to view wound later today anemia - Hgb 7.5 stable DM II - off ssi BS 101-115 malnutrition - slight increase in appetite - approximately 15% intake with meals 01/18 liver enzyme - AST 39 AP 424 ALT 44 n/v - slight improvement - KUB 04/12 mildly distended bladder pneumonia -CXR 01/18 -retrocardiac density unchanged: pleural effusion vs atelectasis vs pneumonia Await decision regarding LTAC, if denied, will need SNU discharge back to [facility]. Oral antibiotics per ID will need added to discharge meds. 01/21/18 depression -sleepy, simple answers - continue depression with minimal improvement affect/animation - further orders per Dr. Ng infected wound - per ID< will need IV antibiotic, has decreased to Meropenem daily, will need wound flap when infection cleared anemia - Hgb 7.5 stable DM II - off ssi BS 101-115 malnutrition - not eating, will insert dobhoff and mitten restraints if need to keep it in, begin TF, triage technician consult for optimal rate of infusion. liver enzyme - AST 39 AP 424 ALT 44 pneumonia -CXR 01/18 -retrocardiac density unchanged: pleural effusion vs atelectasis vs pneumonia For more details regarding further plans, please refer to the order. Plan Plan For more details regarding further plans, please refer to the orders. Nutrition Consultation Dietary Evaluation: Recommendations by RD: Protein supplementation, PPN/TPN Comments: Continue Glucerna TID and encourage PO intake Continue w/tiffani-kapil REC PPN to supplement poor PO intake Expected Outcomes/Goals: PO intake to meet >75% est needs - not met, goal ongoing Malnutrition Findings: Food and Nutrition Intake (Mod: <75% est energy req 7days Weight Status: Overweight GAURAV NG MD 01/21/18 0824: IM PROGRESS NOTES- Assessment Assessment D/w patient.Agrees with feeding tube.refusing to eat.Not a good candidate for TPN. D/w staff.Increase Seroquel. The patient was seen and examined by me. Chart reviewed and plan of care formulated. Discussed with, reviewed and agree with MANAGER SUMMER's notes, plan of care and orders with modifications as necessary. For more details regarding further plans, please refer to the orders. RUT EDWARDS APRN Jan 21, 2018 08:15 GAURAV NG MD Jan 21, 2018 08:24
--- NOTE | 2018-01-21 08:39 | PDOC ---
Infectious Disease Note Subjective Subjective pt says she is ok ROS ROS no n/v/d/ poor intake Vital Sign Vital Signs Vital Signs Date Time Temp Pulse Resp B/P (MAP) Pulse Ox O2 Delivery O2 Flow Rate FiO2 01/21/18 07:45 98.6 76 12 147/67 (93) 98 Room Air 98.6 01/20/18 20:00 10.0 Physical Exam PHYSICAL EXAM GENERAL: NAD, alert and moaning but actually looks better HEENT: Normal conjunctivae. Oral mucosa is pink and dry. No thrush. NECK: No JVD LUNGS: Diminished aeration in the bases. Nonlabored. HEART: S1 and S2. ABDOMEN: Obese. Bowel sounds active. Soft, nontender. EXTREMITIES: 1-2+ edema in lower extremities bilaterally. No cyanosis. SKIN: Warm without generalized rash. Vac in place. wound seen, necrotic large wound very close to bone, no exposed bone, LUE, AV fistula unremarkable. RIJ - clean NEUROLOGIC: Alert and answering questions Labs Lab Laboratory Tests Test 01/20/18 17:06 01/20/18 20:43 01/21/18 05:45 01/21/18 08:09 Glucose (Fingerstick) 97 mg/dL (70-99) 106 mg/dL (70-99) 64 mg/dL (70-99) White Blood Count 10.0 x10^3/uL (4.0-11.0) Red Blood Count 2.81 x10^6/uL (3.50-5.40) Hemoglobin 8.1 g/dL (12.0-15.5) Hematocrit 23.7 % (36.0-47.0) Mean Corpuscular Volume 85 fL (79-100) Mean Corpuscular Hemoglobin 29 pg (25-35) Mean Corpuscular Hemoglobin Concent 34 g/dL (31-37) Red Cell Distribution Width 18.6 % (11.5-14.5) Platelet Count 150 x10^3/uL (140-400) Neutrophils (%) (Auto) 85 % (31-73) Lymphocytes (%) (Auto) 9 % (24-48) Monocytes (%) (Auto) 5 % (0-9) Eosinophils (%) (Auto) 1 % (0-3) Basophils (%) (Auto) 0 % (0-3) Neutrophils # (Auto) 8.5 x10^3uL (1.8-7.7) Lymphocytes # (Auto) 0.9 x10^3/uL (1.0-4.8) Monocytes # (Auto) 0.5 x10^3/uL (0.0-1.1) Eosinophils # (Auto) 0.1 x10^3/uL (0.0-0.7) Basophils # (Auto) 0.0 x10^3/uL (0.0-0.2) Sodium Level 133 mmol/L (136-145) Potassium Level 3.9 mmol/L (3.5-5.1) Chloride Level 98 mmol/L (98-107) Carbon Dioxide Level 30 mmol/L (21-32) Anion Gap 5 (6-14) Blood Urea Nitrogen 17 mg/dL (7-20) Creatinine 3.5 mg/dL (0.6-1.0) Estimated GFR (Cockcroft-Gault) 16.4 Glucose Level 79 mg/dL (70-99) Calcium Level 8.8 mg/dL (8.5-10.1) Micro Microbiology 01/08/18 Blood Culture - Final, Complete Objective Assessment 1. Leukocytosis - stable but also s/p PRBCs. Now post op and s/p dexamethasone 01/12 - better 2. Fever - improved. 3. Pressure wounds of sacral and left ischial areas, present on admission - s/ p I and D 01/12 - no bone involvement 4. H/o Left pleural effusion now ? pneumonia on CT. 5. Acute anemia. 6. Chronic kidney disease, on hemodialysis via arteriovenous fistula. 7. Status post coronary artery bypass grafting in November 2017 at [facility]. 8. Chronic heart failure. 9. Diabetes mellitus, type 2. 10. History of cerebrovascular accident with left-sided weakness and is chair bound. 11. 06/13 bottles + 01/08 Severe depression Plan Plan of Care Cont Meropenem,, prognosis poor f/u am labs and BC with 06/13 positive,,, coag neg staph, contaminant Local wound care and offloading Would benefit from LTAC ability to care for wounds/administer IV abx but also Psych availability given her severe depression Insurance company denied pt to go to SNF D/w nursing. wkly cbc, bun/cr, sed rate f/u with us in 2 wks ILIANA BA MD Jan 21, 2018 08:39
[2018-01-21] MEDS: busPIRone 5 MG TABLET. PO SCH ×2 (09:32→13:39)
[2018-01-21] MEDS: ACETAMINOPHEN 325 MG TABLET. PO SCH ×2 (09:33→13:39)
[2018-01-21] MEDS: CHOLECALCIFEROL (VITAMIN D3) 1,000 UNIT TABLET PO SCH (09:33)
[2018-01-21] MEDS: FOLIC/VIT B COMP W-C (RENAL) TABLET. PO SCH (09:33)
[2018-01-21] MEDS: MINOXIDIL 2.5 MG TABLET PO SCH (09:33)
[2018-01-21] MEDS: LIPASE/PROTEAS/AMYLAS 10/32/42 CAPSULE.DR. PO SCH ×2 (09:33→13:39)
[2018-01-21] MEDS: LACTOBACILLUS RHAMNOSUS GG 1 CAPSULE. PO SCH (09:33)
[2018-01-21] MEDS: POLYETHYLENE GLYCOL 3350 17 GM PACKET. PO SCH (09:34)
[2018-01-21] MEDS: SERTRALINE 50 MG TABLET. PO SCH (09:34)
[2018-01-21] MEDS: CARVEDILOL 12.5 MG TABLET. PO SCH (09:35)
[2018-01-21] MEDS: MEROPENEM 500 MG in IV NORMAL SALINE 50ML 50 ML IV SCH (09:35)
[2018-01-21] MEDS: ISOSORBIDE MONONITRATE ER 30 MG TAB.ER.24H PO SCH (09:35)
[2018-01-21] MEDS: LOSARTAN POTASSIUM 50 MG TABLET. PO SCH (09:36)
[2018-01-21] MEDS: DICLOFENAC SODIUM 1% TOPICAL GEL 100GM TUBE. TP SCH ×2 (09:36→13:40)
--- NOTE | 2018-01-21 10:37 | PDOC ---
Renal-Progress Notes Subjective Notes Notes NONE History of Present Illness Hx of present illness STABLE Vitals Vitals Vital Signs Date Time Temp Pulse Resp B/P (MAP) Pulse Ox O2 Delivery O2 Flow Rate FiO2 01/21/18 09:36 147/67 01/21/18 09:35 80 01/21/18 07:45 98.6 12 98 Room Air 98.6 01/20/18 20:00 10.0 Weight Weight [ ] I.O. Intake and Output Intake and Output 01/21/18 07:00 Intake Total 320 ml Output Total 0 ml Balance 320 ml Intake Oral 320 ml Output Urine Total 0 ml Labs Labs Laboratory Tests Test 01/20/18 17:06 01/20/18 20:43 01/21/18 05:45 01/21/18 08:09 Glucose (Fingerstick) 97 mg/dL (70-99) 106 mg/dL (70-99) 64 mg/dL (70-99) White Blood Count 10.0 x10^3/uL (4.0-11.0) Red Blood Count 2.81 x10^6/uL (3.50-5.40) Hemoglobin 8.1 g/dL (12.0-15.5) Hematocrit 23.7 % (36.0-47.0) Mean Corpuscular Volume 85 fL (79-100) Mean Corpuscular Hemoglobin 29 pg (25-35) Mean Corpuscular Hemoglobin Concent 34 g/dL (31-37) Red Cell Distribution Width 18.6 % (11.5-14.5) Platelet Count 150 x10^3/uL (140-400) Neutrophils (%) (Auto) 85 % (31-73) Lymphocytes (%) (Auto) 9 % (24-48) Monocytes (%) (Auto) 5 % (0-9) Eosinophils (%) (Auto) 1 % (0-3) Basophils (%) (Auto) 0 % (0-3) Neutrophils # (Auto) 8.5 x10^3uL (1.8-7.7) Lymphocytes # (Auto) 0.9 x10^3/uL (1.0-4.8) Monocytes # (Auto) 0.5 x10^3/uL (0.0-1.1) Eosinophils # (Auto) 0.1 x10^3/uL (0.0-0.7) Basophils # (Auto) 0.0 x10^3/uL (0.0-0.2) Sodium Level 133 mmol/L (136-145) Potassium Level 3.9 mmol/L (3.5-5.1) Chloride Level 98 mmol/L (98-107) Carbon Dioxide Level 30 mmol/L (21-32) Anion Gap 5 (6-14) Blood Urea Nitrogen 17 mg/dL (7-20) Creatinine 3.5 mg/dL (0.6-1.0) Estimated GFR (Cockcroft-Gault) 16.4 Glucose Level 79 mg/dL (70-99) Calcium Level 8.8 mg/dL (8.5-10.1) Micro Micro Microbiology 01/08/18 Blood Culture - Final, Complete 01/08/18 Blood Culture Result 1 (MEENU) - Final, Complete 01/08/18 Antimicrobic Susceptibility - Final, Complete Review of Systems Constitutional: yes: malaise, alert Ears/Nose/Throat: Yes: no symptom reported Eyes: Yes: no symptom reported Pulmonary: Yes no symptom reported Cardiovascular: Yes no symptom reported Gastrointestional: Yes: no symptom reported Genitourinary: Yes: no symptom reported Musculoskeletal: Yes: no symptom reported Skin: Yes no symptom reported Psychiatric/Neurological: Yes: no symptom reported Endocrine: Yes: no symptom reported Physical Exam General Appearance: no apparent distress Skin: warm Heart: S1S2 Abdomen: soft, bowel sounds present Genitourinary: bladder flat Extremities: pulses present Neurology: alert, oriented Musculoskeletal: Osteoarthritis Assessment Assessment IMP LEUCOCYTOSIS SEPSIS ANEMIA ESRD DM II HTN SACRAL AND ISCHIAL WOUNDS LEUCOCYTOSIS-BETTER PLAN ANTIBIOTICS HD TOMORROW ARANESP TRANSFER PLANS NOTED TING REYNA MD Jan 21, 2018 10:37
--- NOTE | 2018-01-21 11:03 | PDOC ---
Objective: Objective: Reviewed w/ RN - had plans for Dohboff but pt doesn't want it. Ate lang, toast , and a couple bites of eggs this morning. Doesn't like Glucerna. RN offered to get her whatever food sounds appetizing. Vital Signs: Vital Signs Date Time Temp Pulse Resp B/P (MAP) Pulse Ox O2 Delivery O2 Flow Rate FiO2 01/21/18 09:36 147/67 01/21/18 09:35 80 01/21/18 07:45 98.6 12 98 Room Air 98.6 01/20/18 20:00 10.0 Labs: Laboratory Tests Test 01/20/18 17:06 01/20/18 20:43 01/21/18 05:45 01/21/18 08:09 Glucose (Fingerstick) 97 mg/dL 106 mg/dL 64 mg/dL White Blood Count 10.0 x10^3/uL Red Blood Count 2.81 x10^6/uL Hemoglobin 8.1 g/dL Hematocrit 23.7 % Mean Corpuscular Volume 85 fL Mean Corpuscular Hemoglobin 29 pg Mean Corpuscular Hemoglobin Concent 34 g/dL Red Cell Distribution Width 18.6 % Platelet Count 150 x10^3/uL Neutrophils (%) (Auto) 85 % Lymphocytes (%) (Auto) 9 % Monocytes (%) (Auto) 5 % Eosinophils (%) (Auto) 1 % Basophils (%) (Auto) 0 % Neutrophils # (Auto) 8.5 x10^3uL Lymphocytes # (Auto) 0.9 x10^3/uL Monocytes # (Auto) 0.5 x10^3/uL Eosinophils # (Auto) 0.1 x10^3/uL Basophils # (Auto) 0.0 x10^3/uL Sodium Level 133 mmol/L Potassium Level 3.9 mmol/L Chloride Level 98 mmol/L Carbon Dioxide Level 30 mmol/L Anion Gap 5 Blood Urea Nitrogen 17 mg/dL Creatinine 3.5 mg/dL Estimated GFR (Cockcroft-Gault) 16.4 Glucose Level 79 mg/dL Calcium Level 8.8 mg/dL PE: GEN: NAD NEURO/PSYCH: sleeping, not awakened A/P: Chronic abd complaints Anorexia -- Ate today, doesn't want Dobhoff. Continue supportive care. ALL GONZALEZ Jan 21, 2018 11:03
[2018-01-21 11:10] VITALS: BP 129/58
[2018-01-21] MEDS: HYDROcodone/APAP 7.5/325MG 1 TAB TABLET PO PRN (13:39)
[2018-01-21 15:45] VITALS: BP 146/91
[2018-01-21] MEDS ORDERED: QUEtiapine 25 MG TABLET. PO SCH (21:00)
== END 2018-01-21 16:40 | DRG 853 ==
LOC: ER 11:59 → 2 SOUTH 15:30
PROVIDERS: ADMIT Internal Medicine; ATTEND Internal Medicine
PROC: 02HV33Z Insertion of Infusion Device into Superior Vena Cava, Percutaneous Approach (ICD-10-PCS; 2018-01-08)
PROC: B5181ZA Fluoroscopy of Superior Vena Cava using Low Osmolar Contrast, Guidance (ICD-10-PCS; 2018-01-08)
PROC: 30233N1 Transfusion of Nonautologous Red Blood Cells into Peripheral Vein, Percutaneous Approach (ICD-10-PCS; 2018-01-09)
PROC: 5A1D70Z Performance of Urinary Filtration, Intermittent, Less than 6 Hours Per Day (ICD-10-PCS; 2018-01-10)
PROC: 5A1D70Z Performance of Urinary Filtration, Intermittent, Less than 6 Hours Per Day (ICD-10-PCS; 2018-01-11)
PROC: 0KBN0ZZ Excision of Right Hip Muscle, Open Approach (ICD-10-PCS; 2018-01-12)
PROC: 0KBP0ZZ Excision of Left Hip Muscle, Open Approach (ICD-10-PCS; principal; 2018-01-12 15:30)
PROC: 5A1D70Z Performance of Urinary Filtration, Intermittent, Less than 6 Hours Per Day (ICD-10-PCS; 2018-01-13)
PROC: 5A1D70Z Performance of Urinary Filtration, Intermittent, Less than 6 Hours Per Day (ICD-10-PCS; 2018-01-15)
DX: A41.9 Sepsis, unspecified organism (principal); J96.91 Respiratory failure, unspecified with hypoxia; N18.6 End stage renal disease; E43 Unspecified severe protein-calorie malnutrition; G93.41 Metabolic encephalopathy; J15.6 Pneumonia due to other Gram-negative bacteria; I13.2 Hypertensive heart and chronic kidney disease with heart failure and with stage 5 chronic kidney disease, or end stage renal disease; I50.30 Unspecified diastolic (congestive) heart failure; J44.0 Chronic obstructive pulmonary disease with (acute) lower respiratory infection; J98.11 Atelectasis; N25.81 Secondary hyperparathyroidism of renal origin; R18.8 Other ascites; I69.354 Hemiplegia and hemiparesis following cerebral infarction affecting left non-dominant side; B19.20 Unspecified viral hepatitis C without hepatic coma; D63.1 Anemia in chronic kidney disease; E03.9 Hypothyroidism, unspecified; E11.22 Type 2 diabetes mellitus with diabetic chronic kidney disease; E11.43 Type 2 diabetes mellitus with diabetic autonomic (poly)neuropathy; E78.5 Hyperlipidemia, unspecified; F32.9 Major depressive disorder, single episode, unspecified; G89.29 Other chronic pain; I25.10 Atherosclerotic heart disease of native coronary artery without angina pectoris; I27.29 Other secondary pulmonary hypertension; K21.9 Gastro-esophageal reflux disease without esophagitis; K31.84 Gastroparesis; M19.90 Unspecified osteoarthritis, unspecified site; L89.159 Pressure ulcer of sacral region, unspecified stage; Z82.49 Family history of ischemic heart disease and other diseases of the circulatory system; I25.2 Old myocardial infarction; Z83.3 Family history of diabetes mellitus; Z86.14 Personal history of Methicillin resistant Staphylococcus aureus infection; Z87.891 Personal history of nicotine dependence; Z90.49 Acquired absence of other specified parts of digestive tract; Z90.710 Acquired absence of both cervix and uterus; Z95.1 Presence of aortocoronary bypass graft; Z99.2 Dependence on renal dialysis; Z88.8 Allergy status to other drugs, medicaments and biological substances; Z79.82 Long term (current) use of aspirin; Z79.02 Long term (current) use of antithrombotics/antiplatelets; Z79.899 Other long term (current) drug therapy; Z68.32 Body mass index [BMI] 32.0-32.9, adult
CPT/HCPCS: 36415; 71045; 71250; 74018; 74177; 80048; 80053; 80069; 80202; 82962; 83605; 83735; 84100; 84145; 84484; 85007; 85025; 85610; 85651; 86140; 86850; 86900; 86901; 86920; 87040; 87205; 88304; 93005; 93970; 96365; 96375; A7015; J0330; J0780; J0881; J1100; J1815; J2060; J2185; J2248; J2270; J2370; J2405; J2543; J2765; J3010; J3370; J7030; J7040; P9016; Q0163; Q9967; 97110; 97530; 97535; 99285-25; A4461

== ENCOUNTER 2018-03-16 18:44 | Emergency (ER) | payer OTHER ==
[~2018-03-16] VITALS: Ht 157.5 cm; Wt 65.8 kg
[~2018-03-16 18:44] MED LIST changes: -AMLO10TA2 PO; +AMLO10TA6 PO; +BUSP5TAB PO; +DARBEPOETIN ALFA IN POLYSORBAT SQ; +FENT50VI IV; +HYDR-2762 PO; +LINE600T PO; -LOSA100T6 PO; +LOSA100T7 PO; +METO5VIA4 IV; +ONDA4VIA7 IV; +QUET25TA PO; +SERT50TA8 PO
--- NOTE | 2018-03-16 19:05 | PHYS DOC ---
Past Medical History Past Medical History: Diabetes-Type II, [place], Pneumonia, Renal Failure Additional Past Medical Histor: CELIAC Past Surgical History: Cholecystectomy, Coronary Bypass Surgery, Hysterectomy Additional Past Surgical Histo: FISTULA Alcohol Use: None Drug Use: None Additional Procedures Progress Right forearm IV placement with ultrasound guidance Right forearm site was prepped with chlorhexidine. Right forearm pain was located with ultrasound. Metformin was catheterized with a 20-gauge IV catheter chronic Medications. Bloods were drawn line was flushed without difficulty patient tolerated procedure well. Adult General Chief Complaint Chief Complaint: OTHER COMPLAINTS HPI HPI Patient is a 57 year old female who presents with fatigue Patient was sent from over a [facility] for drop in hematocrit. Her hemoglobin is 6.8. She has a history of anemia and renal failure she is a dialysis patient MWF. Last received dialysis today. She also notes that she's had progressive shortness of breath without any pain. She denies any pain or melena. Review of Systems Review of Systems Constitutional: Denies fever or chills Eyes: Denies change in visual acuity, redness, or eye pain HENT: Denies nasal congestion or sore throat Respiratory: Denies cough or shortness of breath Cardiovascular: Denies chest pain or palpitations GI: With abdominal pain and constipations, no nausea, vomiting, bloody stools or diarrhea : Denies dysuria or hematuria Musculoskeletal: Denies back pain or joint pain Integument: Denies rash or skin lesions Neurologic: Denies headache, focal weakness or sensory changes Endocrine: Denies polyuria or polydipsia All other systems were reviewed and found to be within normal limits, except as documented in this note. Current Medications Current Medications Current Medications Medications (Trade) Dose Ordered Sig/Srinath Start Time Stop Time Status Last Admin Dose Admin Bacitracin 1 graciela 1X ONCE 03/17/18 00:30 03/17/18 00:31 DC Fentanyl Citrate (Fentanyl 2ml Vial) 50 mcg 1X ONCE 03/16/18 21:00 03/16/18 21:01 DC 03/16/18 21:34 50 MCG Lactulose (Lactulose) 20 gm 1X ONCE 03/17/18 00:30 03/17/18 00:31 DC 03/17/18 01:22 20 GM Lidocaine HCl (Xylocaine 2% Topical 30gm Tube) 1 graciela 1X ONCE 03/16/18 23:45 03/16/18 23:46 DC 03/16/18 23:53 1 GRACIELA Neomycin/ Polymyxin/ Bacitracin (Triple Antibiotic Ointment) 1 pkt STK-MED ONCE 03/17/18 00:01 03/17/18 00:02 DC Allergies Allergies Allergies Coded Allergies Type Severity Reaction Last Updated Verified amitriptyline Allergy Intermediate 11/09/16 Yes hydromorphone Allergy Intermediate LORTAB OK AT HOME 05/05/17 Yes lisinopril Allergy Intermediate 11/09/16 Yes metformin Allergy Intermediate 11/09/16 Yes I S O L A T I O N *CONTACT* Allergy Unknown 11/09/16 Yes Physical Exam Physical Exam Constitutional: Well developed, well nourished, no acute distress, non-toxic appearance. HENT: Normocephalic, atraumatic, bilateral external ears normal, oropharynx moist, no oral exudates, nose normal. Eyes: PERRLA, EOMI, conjunctiva normal, no discharge. Neck: Normal range of motion, no tenderness, supple, no stridor. Cardiovascular:Heart rate regular rhythm, no murmur Lungs & Thorax: Bilateral breath sounds clear to auscultation Abdomen: Bowel sounds normal, soft, with LLQ tenderness, no masses, no pulsatile masses. Rectal: normal tone with hard stool in vault Skin: Warm, dry, no erythema, no rash. Large stage 3 sacral decubitus Back: No tenderness, no CVA tenderness. Extremities: No tenderness, no cyanosis, no clubbing, ROM intact, no edema. Neurologic: Alert and oriented X 3, normal motor function, normal sensory function, no focal deficits noted. Psychologic: Affect normal, judgement normal, mood normal. Current Patient Data Vital Signs Vital Signs Date Time Temp Pulse Resp B/P (MAP) Pulse Ox O2 Delivery O2 Flow Rate FiO2 03/17/18 01:15 83 20 115/56 (75) 98 Room Air 03/16/18 18:57 98.5 98.5 Lab Values Laboratory Tests Test 03/16/18 19:25 03/16/18 19:30 03/16/18 20:20 03/16/18 21:20 Stool Occult Blood Positive (NEG) Sodium Level 140 mmol/L (136-145) Potassium Level 4.3 mmol/L (3.5-5.1) Chloride Level 100 mmol/L (98-107) Carbon Dioxide Level 32 mmol/L (21-32) Anion Gap 8 (6-14) Blood Urea Nitrogen 17 mg/dL (7-20) Creatinine 3.2 mg/dL (0.6-1.0) H Estimated GFR (Cockcroft-Gault) 18.2 BUN/Creatinine Ratio 5 (6-20) L Glucose Level 83 mg/dL (70-99) Calcium Level 9.8 mg/dL (8.5-10.1) Total Bilirubin 0.5 mg/dL (0.2-1.0) Aspartate Amino Transferase (AST) 18 U/L (15-37) Alanine Aminotransferase (ALT) 7 U/L (14-59) L Alkaline Phosphatase 170 U/L (46-116) H Troponin I Quantitative < 0.017 ng/mL (0.000-0.055) Total Protein 6.4 g/dL (6.4-8.2) Albumin 2.3 g/dL (3.4-5.0) L Albumin/Globulin Ratio 0.6 (1.0-1.7) L Glucose (Fingerstick) 90 mg/dL (70-99) White Blood Count 8.3 x10^3/uL (4.0-11.0) Red Blood Count 2.24 x10^6/uL (3.50-5.40) L Hemoglobin 7.0 g/dL (12.0-15.5) *L Hematocrit 20.4 % (36.0-47.0) *L Mean Corpuscular Volume 91 fL (79-100) Mean Corpuscular Hemoglobin 31 pg (25-35) Mean Corpuscular Hemoglobin Concent 34 g/dL (31-37) Red Cell Distribution Width 19.3 % (11.5-14.5) H Platelet Count 333 x10^3/uL (140-400) Neutrophils (%) (Auto) 62 % (31-73) Lymphocytes (%) (Auto) 20 % (24-48) L Monocytes (%) (Auto) 8 % (0-9) Eosinophils (%) (Auto) 9 % (0-3) H Basophils (%) (Auto) 2 % (0-3) Neutrophils # (Auto) 5.1 x10^3uL (1.8-7.7) Lymphocytes # (Auto) 1.7 x10^3/uL (1.0-4.8) Monocytes # (Auto) 0.6 x10^3/uL (0.0-1.1) Eosinophils # (Auto) 0.8 x10^3/uL (0.0-0.7) H Basophils # (Auto) 0.1 x10^3/uL (0.0-0.2) Prothrombin Time 13.0 SEC (11.7-14.0) Prothrombin Time INR 1.0 (0.8-1.1) Laboratory Tests 03/16/18 21:20 Laboratory Tests 03/16/18 19:30 EKG EKG ECG 19:15 NSR @ 82 with poor baseline, poor R wave progression and non specific ST-T wave changes Radiology/Procedures Radiology/Procedures [facility] [address] [place] [address] IMAGING REPORT Signed PATIENT: BRIANNA NICHOLSON ACCOUNT: [id number] : 1960 LOCATION: ER AGE: 57 SEX: F EXAM STATUS: REG ER ORD. PHYSICIAN: HERNAN ALFONSO MD REASON: LLQ pain PROCEDURE: CT ABDOMEN PELVIS WO CONTRAST EXAM: CT ABDOMEN/PELVIS WITHOUT CONTRAST. HISTORY: Anemia, left lower quadrant pain. TECHNIQUE: Computed tomography of the abdomen and pelvis was performed without intravenous contrast. COMPARISON: 01/08/2018. FINDINGS: Lung windows through the visualized portions of the bases reveal a small to moderate left pleural effusion with associated atelectasis. There are median sternotomy changes. Bone windows reveal no suspicious lesions. The gallbladder is surgically absent. The kidneys at least mildly atrophic. The spleen, liver and pancreas are unremarkable without contrast. There are no pathologically enlarged lymph nodes. Suggested mild wall thickening of the proximal jejunum may be from peristalsis. The rectum is distended to 6.6 cm. There is only mild constipation more proximally. There is contrast within the distal colon from a prior procedure. The uterus is surgically absent. There is no small bowel obstruction. The appendix is not inflamed. IMPRESSION: 1. Findings suggesting fecal impaction. There is only mild constipation more proximally. 2. Mild wall thickening of the jejunum most likely indicates only peristalsis. Correlate clinically to exclude enteritis. 3. Moderate left pleural effusion with left basilar atelectasis. Body wall edema. 4. At least mild renal atrophy. *One or more of the following individualized dose reduction techniques were utilized for this examination: 1. Automated exposure control. 2. Adjustment of the mA and/or kV according to patient size. 3. Use of iterative reconstruction technique. Electronically signed by: Ruiz Garcia MD (03/16/2018 9:03 PM) [facility] DICTATED and SIGNED BY: PROSPER GARCIA MD DATE: 03/16/182053 Course & Med Decision Making Course & Med Decision Making Pertinent Labs and Imaging studies reviewed. (See chart for details) Emergency department course Presents with complaints of low hemoglobin DDx-chronic anemia from ESRD, GI bleeding, anemia of chronic disease Patient was stable emergency department without evidence of active GI bleeding. Hb was 7. Prior records reviewed and Hb was 7.3 (01/27/2018) Anemia likely secondary to ESRD. CT abdomen and pelvis showed no acute pathology with fecal impaction. Patient was impacted and was disimpacted digitally by myself with good result. Patient has large stage 3 decubitus ulcer without evidence of infection-dressing applied. Spoke with Dr. Thomas who felt no need for admission. Patient sent back to alf. Dragon Disclaimer Dragon Disclaimer This electronic medical record was generated, in whole or in part, using a voice recognition dictation system. Additional Procedures Progress Digitally disimpacted with RN at the bedside for assistance. The patient tolerated the procedure well. Some lidocaine gel was used for topical anesthesia prior to procedure. Departure Departure Impression: Primary Impression: Chronic anemia Additional Impressions: Chronic kidney disease with end stage renal failure on dialysis Sacral decubitus ulcer, stage III Fecal impaction in rectum Heme positive stool Chronic back pain Opiate dependence Disposition: 01 HOME, SELF-CARE Condition: STABLE Referrals: GAURAV DANG MD (PCP) Follow-up tomorrow for further evaluation Patient Instructions: Anemia, Nonspecific-Brief, Constipation, Adult, Kidney Failure, Pressure Ulcer Additional Instructions: If you develop worse pain, fevers, shortness of breath, drainage, return to the Emergency Department Scripts Lactulose (LACTULOSE) 20 Gm/30 Ml Solution 20 GM PO BID for 5 Days, #300 ML Prov: HERNAN ALFONSO MD 10/11/18 Problem Qualifiers Additional Impressions: Chronic back pain Back pain location: low back pain Back pain laterality: bilateral Sciatica presence: without sciatica Qualified Codes: M54.5 - Low back pain; G89.29 - Other chronic pain Opiate dependence Substance use status: uncomplicated Qualified Codes: F11.20 - Opioid dependence, uncomplicated HERNAN ALFONSO MD Mar 16, 2018 19:05
[2018-03-16 19:58] LABS: CALCIUM 9.8 mg/dL (8.5-10.1); CREATININE 3.2 mg/dL (0.6-1.0); GFR 18.2; POTASSIUM 4.3 mmol/L (3.5-5.1)
[2018-03-16 20:04] LABS: ALBUMIN 2.3 g/dL (3.4-5.0); ALBUMIN/GLOBULIN RATIO 0.6 (1.0-1.7); TOTAL BILIRUBIN 0.5 mg/dL (0.2-1.0); TOTAL PROTEIN 6.4 g/dL (6.4-8.2)
[2018-03-16] MEDS ORDERED: fentaNYL PF VIAL 100 MCG/2 ML VIAL IV ONE ×2 (20:30→21:00)
--- NOTE | 2018-03-16 20:49 | EKG ---
[facility] [address] [place] [address] Test Date: 2018-03-16 Test Time: 19:15:31 Pat Name: BRIANNA NICHOLSON Department: Room: Gender: F Coding Tech: : 1960 Requested By: HERNAN ALFONSO Order Number: [id number] Reading MD: Delbert Leahy MD Measurements Intervals [place] Rate: 82 P: 63 [place]: 148 QRS: 55 QRSD: 80 T: -159 QT: 398 QTc: 468 Interpretive Statements SINUS RHYTHM NON-SPECIFIC ST/T CHANGES Electronically Signed On 03-21-2018 8:27:31 CDT by Delbert Leahy MD
--- NOTE | 2018-03-16 21:05 | RAD ---
EXAM: CT ABDOMEN/PELVIS WITHOUT CONTRAST. HISTORY: Anemia, left lower quadrant pain. TECHNIQUE: Computed tomography of the abdomen and pelvis was performed without intravenous contrast. COMPARISON: 01/08/2018. FINDINGS: Lung windows through the visualized portions of the bases reveal a small to moderate left pleural effusion with associated atelectasis. There are median sternotomy changes. Bone windows reveal no suspicious lesions. The gallbladder is surgically absent. The kidneys at least mildly atrophic. The spleen, liver and pancreas are unremarkable without contrast. There are no pathologically enlarged lymph nodes. Suggested mild wall thickening of the proximal jejunum may be from peristalsis. The rectum is distended to 6.6 cm. There is only mild constipation more proximally. There is contrast within the distal colon from a prior procedure. The uterus is surgically absent. There is no small bowel obstruction. The appendix is not inflamed. IMPRESSION: 1. Findings suggesting fecal impaction. There is only mild constipation more proximally. 2. Mild wall thickening of the jejunum most likely indicates only peristalsis. Correlate clinically to exclude enteritis. 3. Moderate left pleural effusion with left basilar atelectasis. Body wall edema. 4. At least mild renal atrophy. *One or more of the following individualized dose reduction techniques were utilized for this examination: 1. Automated exposure control. 2. Adjustment of the mA and/or kV according to patient size. 3. Use of iterative reconstruction technique. Electronically signed by: Ruiz Garcia MD (03/16/2018 9:03 PM) [facility]
[2018-03-16 21:33] LABS: BASO # 0.1 x10^3/uL (0.0-0.2); BASO % 2 % (0-3); EOS # 0.8 x10^3/uL (0.0-0.7); EOS % 9 % (0-3); LYMPH # 1.7 x10^3/uL (1.0-4.8); LYMPH % 20 % (24-48); MEAN CORPUSCULAR HEMOGLOBIN 31 pg (25-35); MEAN CORPUSCULAR HGB CONC 34 g/dL (31-37); MEAN CORPUSCULAR VOLUME 91 fL (79-100); MONO # 0.6 x10^3/uL (0.0-1.1); MONO % 8 % (0-9); NEUT # 5.1 x10^3uL (1.8-7.7); NEUT % 62 % (31-73); PLATELET COUNT 333 x10^3/uL (140-400); RED BLOOD COUNT 2.24 x10^6/uL (3.50-5.40); RED CELL DISTRIBUTION WIDTH 19.3 % (11.5-14.5); WHITE BLOOD COUNT 8.3 x10^3/uL (4.0-11.0)
[2018-03-16 21:37] LABS: HEMATOCRIT 20.4 % (36.0-47.0)
[2018-03-16 22:43] LABS: FECAL OB PT POSITIVE (NEG)
[2018-03-16] MEDS ORDERED: LIDOCAINE 2% TOPICAL JELLY 30GM TUBE. TP ONE (23:45)
[2018-03-17] MEDS ORDERED: NEOMY/BACITR/POLYMYXIN OINT PACKET. TP ONE (00:01)
[2018-03-17] MEDS ORDERED: LACT20SO PO (00:10)
[2018-03-17] MEDS ORDERED: LACTULOSE 20 GM/30 ML SOLUTION. PO ONE (00:30)
[2018-03-17] MEDS ORDERED: BACITRACIN TOPICAL OINT 14GM TUBE. TP ONE (00:30)
[2018-03-17 01:15] VITALS: BP 115/56
== END 2018-03-17 01:49 | disposition home or self-care (01) ==
LOC: ER 18:44
DX: D64.89 Other specified anemias (principal); E11.22 Type 2 diabetes mellitus with diabetic chronic kidney disease; N18.6 End stage renal disease; L89.153 Pressure ulcer of sacral region, stage 3; K56.41 Fecal impaction; G89.29 Other chronic pain; M54.5 Low back pain; F11.20 Opioid dependence, uncomplicated; R19.5 Other fecal abnormalities; N26.1 Atrophy of kidney (terminal); J90 Pleural effusion, not elsewhere classified; J98.11 Atelectasis; I25.2 Old myocardial infarction; Z99.2 Dependence on renal dialysis; Z90.49 Acquired absence of other specified parts of digestive tract; Z95.1 Presence of aortocoronary bypass graft; Z90.710 Acquired absence of both cervix and uterus; Z88.8 Allergy status to other drugs, medicaments and biological substances; Z88.5 Allergy status to narcotic agent; Z91.041 Radiographic dye allergy status
CPT/HCPCS: 36415; 45915; 74176; 80053; 82274; 82962; 84484; 85025; 85610; 93005; 96374; 99285; J3010

== ENCOUNTER → 2018-11-14 | Outpatient (CLI) | payer OTHER ==
[~2018-11-14] MED LIST changes: -AMLO10TA6 PO; +AMLO10TA8 PO; +CARV12.511 PO; -CARV12.52 PO; -HYDR-2762 PO; +HYDR-2765 PO; +HYDR-3164 PO; -HYDR-971 PO; +LACT20SO PO; +LOSA100T14 PO; -LOSA100T7 PO; +OXYC5TAB4 PO; -OXYC5TAB95 PO
--- NOTE | 2018-11-15 13:37 | RAD ---
DATE: 11/14/2018 EXAM: DIGITAL SCREEN BILAT W/CAD HISTORY: Routine screening COMPARISON: 12/25/2016 This study was interpreted with the benefit of Computerized Aided Detection (CAD). Breast Density: SCATTERED The breast parenchyma shows scattered fibroglandular densities. Breast parenchyma level B. FINDINGS: No new or enlarging breast densities are seen. Benign type calcifications are present. No suspicious microcalcifications have developed. IMPRESSION: There is no mammographic evidence of malignancy in either breast. BI-RADS CATEGORY: 2 BENIGN FINDING(S) RECOMMENDED FOLLOW-UP: 12M 12 MONTH FOLLOW-UP PQRS compliance statement: Patient information was entered into a reminder system with a target due date for the next mammogram. Mammography is a sensitive method for finding small breast cancers, but it does not detect them all and is not a substitute for careful clinical examination. A negative mammogram does not negate a clinically suspicious finding and should not result in delay in biopsying a clinically suspicious abnormality. "Our facility is accredited by the [employer] Mammography Program."
== END | disposition home or self-care (01) ==
LOC: MAMMO 12:20
PROVIDERS: ATTEND Internal Medicine
DX: Z12.31 Encounter for screening mammogram for malignant neoplasm of breast (principal); N64.89 Other specified disorders of breast
CPT/HCPCS: 77067

== ENCOUNTER 2021-01-16 07:49 | Inpatient (IN) | payer OTHER, MEDICAID ==
[~2021-01-16] VITALS: Ht 157.5 cm; Wt 69.0 kg
[~2021-01-16 07:49] MED LIST changes: -ACET500T55 PO; +ACET500T56 PO; +AMLO-187 PO; -AMLO10TA8 PO; -ISOS30TA4 PO; +ISOS30TA68 PO; -LINE600T PO; +LINE600T12 PO; -LIPA1CAP12 PO; +LIPA1CAP31 PO; +MONT10TA49 PO; -MONT10TA9 PO; -NITR0.4T SL; +NITR0.4T24 SL; -PANT40TA5 PO; +PANT40TA77 PO; -QUET25TA PO; +QUET25TA3 PO; +SERT-267 PO; +SERT-268 PO; -SERT100T8 PO; -SERT50TA8 PO
[2021-01-16] MEDS ORDERED: ZIPRASIDONE IM 20 MG VIAL. IM ONE (08:00)
[2021-01-16] MEDS ORDERED: fentaNYL PF VIAL 100 MCG/2 ML VIAL IVP ONE (08:00)
--- NOTE | 2021-01-16 08:13 | PHYS DOC ---
Past Medical History Past Medical History: Diabetes-Type II, SC, Pneumonia, Renal Failure Additional Past Medical Histor: CELIAC Past Medical History Limited secondary to altered mental status Past Surgical History: Cholecystectomy, Coronary Bypass Surgery, Hysterectomy Additional Past Surgical Histo: FISTULA Past Surgical History Limited secondary to altered mental status Smoking Status: Never Smoker Alcohol Use: None Drug Use: None Social History Limited secondary to altered mental status General Adult EDM: Chief Complaint: Altered Mental Status HPI: HPI: Patient is a 60 year old female who presents via EMS with altered mental status. Per EMS the patient began screaming and became combative during her dialysis treatment this morning. On arrival fingerstick glucose was 91. Further information obtained from dialysis nurse says patient began screaming and thrashing around 1.5 hours after treatment began. Nurse adds that systolic BP sharply gloria to 240. While thrashing about the patients dialysis access site became disconnected and there was significant bleeding from the site when EMS arrived. EMS reports placing a tourniquet on arm to control bleeding. She is screaming, "help me" but has not elaborated. Patient is minimally responsive to questioning but complains of low back pain and buttock pain. History of present illness limited secondary to altered mental status. Review of Systems: Review of Systems: Review of systems limited secondary to altered mental status Heart Score: C/O Chest Pain: N/A Allergies: Allergies: Allergies Coded Allergies Type Severity Reaction Last Updated Verified amitriptyline Allergy Intermediate 11/09/16 Yes hydromorphone Allergy Intermediate LORTAB OK AT HOME 05/05/17 Yes lisinopril Allergy Intermediate 11/09/16 Yes metformin Allergy Intermediate 11/09/16 Yes I S O L A T I O N *CONTACT* Allergy Unknown 11/09/16 Yes Physical Exam: PE: Constitutional: Well developed, well nourished, yelling "help me", agitated HENT: Normocephalic, atraumatic Eyes: PERRL, conjunctiva normal, no discharge Neck: Normal range of motion, supple Lungs & Thorax: No respiratory distress, equal chest rise and fall Abdomen: Soft, no tenderness Skin: Warm, dry, no erythema, no rash Extremities: ROM intact, no edema, left UE cyanosis, tourniquet placed pre- hospital removed upon arrival with interval improvement of cyanosis, no active bleeding for AV fistula Neurologic: Alert and oriented X name only, confused, moving all extremities Psychologic: Agitated, judgment abnormal EKG: EK BPM, Sinus bradycardia, diffuse Q waves noted likely from previous SC, inverted T wave noted in lead V6, QRS 98ms, QTc 517ms Radiology/Procedures: Radiology/Procedures: CT HEAD/BRAIN WO History: Reason: altered mental status / Spl. Instructions: / History: Comparison: December 25, 2017 Technique: Noncontrast CT imaging was performed of the head. Exposure: One or more of the following individualized dose reduction techniques were utilized for this examination: 1. Automated exposure control 2. Adjustment of the mA and/or kV according to patient size 3. Use of iterative reconstruction technique. Findings: No intracranial hemorrhage. No mass effect. No hydrocephalus. Moderate multifocal foci of decreased attenuation within the hemispheric white matter, progressed compared to prior. Chronic right basal ganglia and bilateral thalamic lacunar infarcts. Imaged orbits are unremarkable. Imaged paranasal sinuses and mastoid air cells are clear. No acute calvarial fracture. Impression: 1. No acute intracranial hemorrhage. 2. Moderate nonspecific white matter changes, most often due to chronic microvascular ischemia. Differential considerations include demyelinating disease or vasculitis. Overall findings are progressed compared to 2018. If pe rsistent clinical concern for acute ischemia, MRI can better evaluate. 3. Chronic right basal ganglia and bilateral thalamic lacunar infarcts. Electronically signed by: Kyrie Crawford DO (01/16/2021 9:10 AM) [id number] EXAM: XR CHEST 1V 01/16/2021 8:56 AM CLINICAL INDICATION: Altered mental status COMPARISON: Chest radiograph 01/08/2018 TECHNIQUE: AP view of the chest FINDINGS: The patient is rotated to the right. The right IJ catheter has been removed. There are changes median sternotomy. Mild cardiomegaly. There is indistinct pulmonary vascularity suspicious for congestion. No consolidation, pleural effusion or pneumothorax. No acute osseous abnormality. IMPRESSION: Cardiomegaly and mild pulmonary vascular congestion. Electronically signed by: Karine Hubbard MD (01/16/2021 9:24 AM) [id number] Course & Med Decision Making: Course & Med Decision Making Pertinent Labs and Imaging studies reviewed. (See chart for details) Patient presents from HD with altered mental status. Patient pulled out dialysis ports due to "thrashing about" with significant hemorrhage upon EMS arrival. EMS placed tourniquet on limb. Upon arrival concern for cyanosis of limb. Tourniquet immediately removed with interval improvement. NO active bleeding from AV fistula. CT head without acute process. Labs obtained and posted to chart. Troponin elevated likely secondary to ESRD. EKG stable. CXR without acute finding. Hypertension addressed. Patient requiring admission for further evaluation and treatment. Discussed with Dr. Ng (PCP) who is in agreement with admission. Dragon Disclaimer: Dragon Disclaimer: This electronic medical record was generated, in whole or in part, using a voice recognition dictation system. Departure Departure Impression: Primary Impression: Altered mental status Qualified Codes: R41.82 - Altered mental status, unspecified Additional Impressions: Hypertensive urgency Elevated troponin ESRD (end stage renal disease) on dialysis Disposition: ADMITTED INPATIENT Admitting Physician: Saravanan Ng Condition: GUARDED Referrals: SARAVANAN NG MD (PCP) Critical Care Time Critical care time was 30 minutes which includes time at bedside, spent in discussion of patient's care with specialists and/or family members, with interpretation of laboratory and/or radiological studies and is exclusive of procedures. PATRICIA WHYTE DO Jan 16, 2021 08:13
[2021-01-16 08:19] LABS: BASO % 1 % (0-3); EOS # 0.2 x10^3/uL (0.0-0.7); EOS % 5 % (0-3); HEMATOCRIT 33.9 % (36.0-47.0); HEMOGLOBIN 11.2 g/dL (12.0-15.5); LYMPH # 0.7 x10^3/uL (1.0-4.8); LYMPH % 16 % (24-48); MEAN CORPUSCULAR HEMOGLOBIN 31 pg (25-35); MEAN CORPUSCULAR HGB CONC 33 g/dL (31-37); MEAN CORPUSCULAR VOLUME 94 fL (79-100); MONO # 0.3 x10^3/uL (0.0-1.1); MONO % 7 % (0-9); NEUT # 3.4 x10^3/uL (1.8-7.7); NEUT % 72 % (31-73); PLATELET COUNT 170 x10^3/uL (140-400); RED BLOOD COUNT 3.59 x10^6/uL (3.50-5.40); RED CELL DISTRIBUTION WIDTH 16.9 % (11.5-14.5); WHITE BLOOD COUNT 4.7 x10^3/uL (4.0-11.0)
[2021-01-16 08:47] LABS: CALCIUM 8.4 mg/dL (8.5-10.1); GFR 8.7; POTASSIUM 3.8 mmol/L (3.5-5.1)
[2021-01-16 08:50] LABS: PROTHROMBIN TIME PATIENT 14.3 SEC (11.7-14.0)
[2021-01-16 08:59] LABS: ALBUMIN 3.5 g/dL (3.4-5.0); ALBUMIN/GLOBULIN RATIO 1.4 (1.0-1.7); MAGNESIUM 2.4 mg/dL (1.8-2.4); TOTAL BILIRUBIN 0.6 mg/dL (0.2-1.0)
[2021-01-16] MEDS ORDERED: hydrALAZINE 20 MG/ML VIAL. IVP ONE (09:00)
[2021-01-16 09:05] LABS: BILIRUBIN,URINE NEGATIVE (NEG); CLARITY,URINE CLEAR; COLOR,URINE YELLOW; NITRITE,URINE NEGATIVE (NEG); PH,URINE 7.5 (<5.0-8.0); PROTEIN,URINE >=300 mg/dL (NEG-TRACE); UROBILINOGEN,URINE 0.2 mg/dL (0.2 mg/dL)
--- NOTE | 2021-01-16 09:12 | RAD ---
CT HEAD/BRAIN WO History: Reason: altered mental status / Spl. Instructions: / History: Comparison: December 25, 2017 Technique: Noncontrast CT imaging was performed of the head. Exposure: One or more of the following individualized dose reduction techniques were utilized for thi s examination: 1. Automated exposure control 2. Adjustment of the mA and/or kV according to patient size 3. Use of iterative reconstruction technique. Findings: No intracranial hemorrhage. No mass effect. No hydrocephalus. Moderate multifocal foci of decreased attenuation within the hemispheric white matter, progressed compared to prior. Chronic right basal ganglia and bilateral thalamic lacunar infarcts. Imaged orbits are unremarkable. Imaged paranasal sinuses and mastoid air cells are clear. No acute ca lvarial fracture. Impression: 1. No acute intracranial hemorrhage. 2. Moderate nonspecific white matter changes, most often due to chronic microvascular ischemia. Diff erential considerations include demyelinating disease or vasculitis. Overall findings are progressed compared to 2018. If persistent clinical concern for acute ischemia, MRI can better evaluate. 3. Chronic right basal ganglia and bilateral thalamic lacunar infarcts. Electronically signed by: Kyrie Crawford DO (01/16/2021 9:10 AM) [id number]
[2021-01-16 09:26] LABS: AMPHETAMINE/METHAMPHETAMINE NEG (NEG); BARBITURATES NEG (NEG); BENZODIAZEPINES NEG (NEG); CANNABINOIDS POS (NEG); COCAINE NEG (NEG); METHADONE NEG (NEG); OPIATES NEG (NEG); PHENCYCLIDINE NEG (NEG)
--- NOTE | 2021-01-16 09:27 | RAD ---
EXAM: XR CHEST 1V 01/16/2021 8:56 AM CLINICAL INDICATION: Altered mental status COMPARISON: Chest radiograph 01/08/2018 TECHNIQUE: AP view of the chest FINDINGS: The patient is rotated to the right. The right IJ catheter has been removed. There are gunter ges median sternotomy. Mild cardiomegaly. There is indistinct pulmonary vascularity suspicious for co ngestion. No consolidation, pleural effusion or pneumothorax. No acute osseous abnormality. IMPRESSION: Cardiomegaly and mild pulmonary vascular congestion. Electronically signed by: Karine Hubbard MD (01/16/2021 9:24 AM) [id number]
[2021-01-16 09:47] LABS: RBC,URINE OCC /HPF (0-2)
[2021-01-16 09:47] LABS: ACETAMIN < 2 mcg/ml (10-30); SALIC < 2.8 mg/dL (2.8-20.0)
[2021-01-16 09:48] LABS: ETHANOL < 10 mg/dL (0-10)
[2021-01-16 09:48] LABS: BACTERIA,URINE 0 /HPF (0-FEW)
--- NOTE | 2021-01-16 10:30 | EKG ---
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
[2021-01-16] MEDS ORDERED: LABETALOL 20 MG/4 ML DISP.SYRIN. IVP ONE (11:00)
[2021-01-16] MEDS ORDERED: ASPIRIN RECTAL 300 MG SUPP. PR ONE (11:15)
[2021-01-16] MEDS ORDERED: ONDANSETRON PF 4 MG/2 ML VIAL. IVP PRN (11:30)
[2021-01-16] MEDS: INSULIN LISPRO 300 UNITS/3 ML VIAL. SQ SCH ×2 (12:00→17:00)
[2021-01-16] MEDS ORDERED: hydrALAZINE 20 MG/ML VIAL. IVP PRN (13:00)
--- NOTE | 2021-01-16 18:19 | PDOC ---
Provider Note Date of Service: DATE: 01/16/21 TIME: 18:17 Provider Note H&P dictated #[id number] Discussed with the emergency room nurse. She feels that the temperature of 103 degrees was an error. Will not consult infectious disease at this time. WBC count is also normal. Lactic acid level is normal. Chest x-ray and urinalysis are negative. Continue to monitor. She also was very agitated at that time. We will continue to monitor closely and admit to ICU. Justifications for Admission Other Justification GAURAV DANG MD Jan 16, 2021 18:18
[2021-01-16] MEDS ORDERED: ACET325T21 PO (18:35)
[2021-01-16] MEDS ORDERED: zenpep PO (18:35)
[2021-01-16] MEDS ORDERED: ISOS60TA55 PO (18:35)
[2021-01-16] MEDS ORDERED: LIDO700A21 TP (18:35)
[2021-01-16] MEDS ORDERED: SENN1TAB62 PO (18:35)
[2021-01-16] MEDS ORDERED: HYDR-2869 PO (18:35)
[2021-01-16] MEDS ORDERED: GLUC1KIT IM (18:35)
[2021-01-16] MEDS ORDERED: MINO2.5T12 PO (18:35)
[2021-01-16] MEDS ORDERED: LIDO15CR9 TP (18:35)
[2021-01-16] MEDS ORDERED: CINA30TA24 PO (18:35)
[2021-01-16] MEDS ORDERED: creon PO (18:35)
[2021-01-16] MEDS ORDERED: CLON0.2T PO (18:35)
[2021-01-16] MEDS ORDERED: LACT10PA3 PO (18:35)
[2021-01-16] MEDS ORDERED: SEVE800T9 PO (18:35)
[2021-01-16] MEDS ORDERED: OXYC5TAB2 PO (18:35)
[2021-01-16] MEDS ORDERED: HYDR-2769 PO (18:35)
[2021-01-16] MEDS ORDERED: DEXT38GE2 PO (18:35)
[2021-01-16] MEDS ORDERED: SERT-268 PO (18:35)
[2021-01-16] MEDS ORDERED: EZET10TA20 PO (18:35)
[2021-01-16] MEDS ORDERED: ALBU2.5V8 INH (18:35)
[2021-01-16] MEDS ORDERED: ATOR40TA59 PO (18:35)
[2021-01-16] MEDS ORDERED: PREG50CA91 PO (18:35)
[2021-01-16] MEDS ORDERED: VITA80003 PO (18:35)
[2021-01-16] MEDS ORDERED: ESCITALOPRAM OX10 MG PO (18:35)
[2021-01-16] MEDS ORDERED: AMLO-187 PO (18:35)
[2021-01-16] MEDS ORDERED: TRAM-48 PO (18:35)
[2021-01-16] MEDS ORDERED: MIRT-7 PO (18:35)
[2021-01-16] MEDS ORDERED: ONDA4TAB7 PO (18:35)
--- NOTE | 2021-01-16 19:48 | HP ---
ADMIT DATE: 01/16/2021 HISTORY OF PRESENT ILLNESS: This 60-year-old female who is known to have end-stage renal disease on hemodialysis and hypertension and coronary artery disease, was getting dialysis treatment this morning and she suddenly started screaming and became very combative. She started thrashing around 1-1/2 hours after dialysis treatment was started. Her systolic blood pressures sharply gloria to 240 and during this time, the patient's dialysis access site became disconnected as she was thrashing and there was significant bleeding from the site when EMS arrived. She was brought to the Emergency Room. Bleeding had stopped. Her blood pressure remained very high and her initial blood pressure was 232/118 mmHg. The patient was given IV hydralazine and IV lorazepam, IV labetalol, intramuscular Geodon to help her blood pressure come down and also to calm her down. She was eventually started on Cardene drip and this is helping her blood pressure to stay under control. She finally fell asleep before I came to the Emergency Room. She does open her eyes and wakes up, but unable to cooperate and remains confused. Because of the acute hypertensive crisis, acute metabolic encephalopathy with CT scan of head not showing any acute changes and showing only moderate nonspecific white matter changes and chronic right basal ganglia and bilateral thalamic lacunar infarcts and no evidence of leukocytosis and significant lab abnormalities. The patient was admitted for further evaluation and management. SYSTEMS REVIEW: The patient is very sleepy and occasionally opens her eyes. She is nonverbal, not following any commands and she is wrapped up in multiple blankets. Unable to obtain any information from her. PAST MEDICAL HISTORY: The patient has a history of end-stage renal disease on hemodialysis, history of moderate pericardial effusion, pleural effusion, coronary artery disease, had cardiac cath in 07/2017. 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 PAST SURGICAL HISTORY: Includes cholecystectomy, hysterectomy, partial ovary remaining, history of iliac stenosis with aortoceliac bypass 2017, history of celiac artery decompression. FAMILY HISTORY: Positive for coronary artery disease, kidney disease. SOCIAL HISTORY: Remote history of smoking. No history of alcoholism or drug abuse. Once in the past, the patient was taking narcotics, but none recently. ALLERGIES: THE PATIENT IS ALLERGIC TO AMITRIPTYLINE, HYDROMORPHONE, LISINOPRIL, METFORMIN. The patient has been able to take hydrocodone. MEDICATIONS: Reviewed and reconciled, need to review some more medications. PHYSICAL EXAMINATION: VITAL SIGNS: Blood pressure 232/118 mmHg, temperature 103 degrees Fahrenheit, blood pressure dropped to 92/42 now, currently blood pressure is 135/57 mmHg. GENERAL: The patient is very sleepy and not very responsive and not in any acute distress. She is not following commands and is confused. EYES: Partial exam unremarkable. SKIN: Warm and dry. No cyanosis. NECK: JVP normal. HENT: Unable to examine. LUNGS: Clear anteriorly, decreased breath sounds bilaterally. CARDIOVASCULAR SYSTEM: S1, S2 regular. ABDOMEN: Soft, nontender. EXTREMITIES: No edema. CENTRAL NERVOUS SYSTEM: Confused, very sleepy, unable to cooperate due to sleep, partial sedation. Unable to do full exam at this time. LABORATORY DATA: WBC count 4.7, hemoglobin 11.2, glucose 116. Ammonia less than 10. Sodium 142, potassium 3.8, BUN 43, creatinine 6. Lactic acid 1.9. Creatinine kinase 142. Troponin 0.058 and 0.091, albumin 3.5, lipase 650. SARS-CoV-2 negative. Urinalysis: Trace blood, 0 bacteria, nitrite negative. Chest x-ray shows cardiomegaly and mild pulmonary vascular congestion. CT scan of the head as noted earlier shows moderate nonspecific white matter changes and chronic right basal ganglia and bilateral thalamic lacunar infarcts, no acute intracranial hemorrhage. IMPRESSION: 1. Acute metabolic encephalopathy, etiology not clear. The patient has had similar episodes in the past. 2. Acute hypertensive crisis. This may be also contributing to the acute metabolic encephalopathy. 3. End-stage renal disease on hemodialysis. 4. Anemia. 5. Coronary artery disease. 6. Diastolic congestive heart failure. 7. Fever: The patient had fever of 103. This may be due to her agitation, but sepsis needs to be ruled out. Lactic acid level is normal. 8. 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 9. 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 10. Physical deconditioning. 11. Status post coronary artery bypass grafting. 12. Peripheral artery disease. PLAN: 1. Acute metabolic encephalopathy. Continue to give her lorazepam as needed. Monitor closely in the Intensive Care Unit. Consult Dr. Martinez for neurology evaluation and management. 2. Acute hypertensive crisis. The patient is responding to Cardene drip. Consult Dr. Leahy for cardiology evaluation and management. 3. Elevated troponin. This may be due to demand ischemia and also end-stage renal disease may be contributing. 4. End-stage renal disease, on hemodialysis. 5. Coronary artery disease. 6. Diastolic congestive heart failure. 7. Physical deconditioning. 8. Asthma. 9. Gastroesophageal reflux disease. 10. Hyperlipidemia. 11. Severe pulmonary hypertension. 12. 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 13. History of depression. 14. 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 15. History of secondary hyperparathyroidism. Consult Dr. Hernandez for management of end-stage renal disease and hemodialysis. Condition treatment discussed with the patient's brother at bedside in the Emergency Room. Prognosis of this patient is extremely poor due to her multiple medical problems. I will also consult Dr. Ray Nino for Infectious Disease evaluation and management because of her fever of 103 degrees Fahrenheit. Her chest x-ray, urinalysis as well as SARS-CoV-2 test is negative. We will admit her to intensive care unit. For details, please refer to the orders. PBP/PRA DR: FARZAD/faraz TID: [id number]
[2021-01-17] VITALS (21 sets, daily range): BP systolic 110–153; BP diastolic 47–70
[2021-01-17 04:45] LABS: BASO % 1 % (0-3); EOS # 0.1 x10^3/uL (0.0-0.7); EOS % 1 % (0-3); HEMATOCRIT 28.4 % (36.0-47.0); HEMOGLOBIN 9.5 g/dL (12.0-15.5); LYMPH # 0.8 x10^3/uL (1.0-4.8); LYMPH % 15 % (24-48); MEAN CORPUSCULAR HEMOGLOBIN 32 pg (25-35); MEAN CORPUSCULAR HGB CONC 33 g/dL (31-37); MEAN CORPUSCULAR VOLUME 95 fL (79-100); MONO # 0.3 x10^3/uL (0.0-1.1); MONO % 7 % (0-9); NEUT # 3.9 x10^3/uL (1.8-7.7); NEUT % 76 % (31-73); PLATELET COUNT 155 x10^3/uL (140-400); RED CELL DISTRIBUTION WIDTH 16.6 % (11.5-14.5); WHITE BLOOD COUNT 5.1 x10^3/uL (4.0-11.0)
[2021-01-17 05:54] LABS: ALBUMIN 3.2 g/dL (3.4-5.0); ALBUMIN/GLOBULIN RATIO 1.5 (1.0-1.7); CALCIUM 7.8 mg/dL (8.5-10.1); CREATININE 7.6 mg/dL (0.6-1.0); GFR 6.6; PHOSPHORUS 7.4 mg/dL (2.6-4.7); POTASSIUM 4.8 mmol/L (3.5-5.1); TOTAL BILIRUBIN 0.4 mg/dL (0.2-1.0); TOTAL PROTEIN 5.4 g/dL (6.4-8.2)
[2021-01-17] MEDS: INSULIN LISPRO 300 UNITS/3 ML VIAL. SQ SCH ×3 (08:00→17:00)
--- NOTE | 2021-01-17 08:54 | PDOC ---
IM PROGRESS NOTES- Subjective Subjective No complaints of pain or dyspnea. Objective Vitals/I&O Vital Signs Date Time Temp Pulse Resp B/P (MAP) Pulse Ox O2 Delivery O2 Flow Rate FiO2 01/17/21 07:47 66 133/58 (83) 01/17/21 06:39 98.0 19 99 Nasal Cannula 2.0 98.0 I & O 01/16/21 01/16/21 01/17/21 15:00 23:00 07:00 Intake Total 250 ml Balance 250 ml Physical Exam Physical Exam General Appearance -alert and in no distress Chest - decreased breath sounds at bases Heart - S1 and S2 normal Abdomen - soft, non tender Neurological - alert, oriented Musculoskeletal - generalized weakness Extremities -1+ edema Labs Laboratory Tests Test 01/16/21 09:18 01/16/21 14:35 01/17/21 04:30 01/17/21 07:44 SARS-CoV-2 Antigen (Rapid) Negative (NEGATIVE) Troponin I Quantitative 0.091 ng/mL (0.000-0.055) 1.017 ng/mL (0.000-0.055) White Blood Count 5.1 x10^3/uL (4.0-11.0) Red Blood Count 3.00 x10^6/uL (3.50-5.40) L Hemoglobin 9.5 g/dL (12.0-15.5) L Hematocrit 28.4 % (36.0-47.0) L Mean Corpuscular Volume 95 fL (79-100) Mean Corpuscular Hemoglobin 32 pg (25-35) Mean Corpuscular Hemoglobin Concent 33 g/dL (31-37) Red Cell Distribution Width 16.6 % (11.5-14.5) H Platelet Count 155 x10^3/uL (140-400) Neutrophils (%) (Auto) 76 % (31-73) H Lymphocytes (%) (Auto) 15 % (24-48) L Monocytes (%) (Auto) 7 % (0-9) Eosinophils (%) (Auto) 1 % (0-3) Basophils (%) (Auto) 1 % (0-3) Neutrophils # (Auto) 3.9 x10^3/uL (1.8-7.7) Lymphocytes # (Auto) 0.8 x10^3/uL (1.0-4.8) L Monocytes # (Auto) 0.3 x10^3/uL (0.0-1.1) Eosinophils # (Auto) 0.1 x10^3/uL (0.0-0.7) Basophils # (Auto) 0.0 x10^3/uL (0.0-0.2) Sodium Level 141 mmol/L (136-145) Potassium Level 4.8 mmol/L (3.5-5.1) # Chloride Level 103 mmol/L (98-107) Carbon Dioxide Level 29 mmol/L (21-32) Anion Gap 9 (6-14) Blood Urea Nitrogen 54 mg/dL (7-20) H Creatinine 7.6 mg/dL (0.6-1.0) H Estimated GFR (Cockcroft-Gault) 6.6 BUN/Creatinine Ratio 7 (6-20) Glucose Level 72 mg/dL (70-99) Calcium Level 7.8 mg/dL (8.5-10.1) L Phosphorus Level 7.4 mg/dL (2.6-4.7) H Total Bilirubin 0.4 mg/dL (0.2-1.0) Aspartate Amino Transferase (AST) 22 U/L (15-37) Alanine Aminotransferase (ALT) 22 U/L (14-59) Alkaline Phosphatase 68 U/L (46-116) Total Protein 5.4 g/dL (6.4-8.2) L Albumin 3.2 g/dL (3.4-5.0) L Albumin/Globulin Ratio 1.5 (1.0-1.7) Glucose (Fingerstick) 75 mg/dL (70-99) Laboratory Tests 01/17/21 04:30 Laboratory Tests 01/17/21 04:30 Meds Current Medications Medications (Trade) Dose Ordered Sig/Srinath Route PRN Reason Start Time Stop Time Status Last Admin Dose Admin Hydralazine HCl (Apresoline Inj) 20 mg 1X ONCE IVP 01/16/21 09:00 01/16/21 09:02 DC 01/16/21 09:04 Lorazepam (Ativan Inj) 2 mg 1X ONCE IVP 01/16/21 09:30 01/16/21 09:31 DC 01/16/21 09:40 Labetalol HCl (Normodyne Iv Push) 10 mg 1X ONCE IVP 01/16/21 11:00 01/16/21 11:01 DC 01/16/21 12:03 Aspirin (Aspirin Rectal Supp) 300 mg 1X ONCE WI 01/16/21 11:15 01/16/21 11:16 DC 01/16/21 12:05 Lorazepam (Ativan Inj) 1 mg PRN Q4HRS PRN IVP ANXIETY / AGITATION 01/16/21 12:45 01/16/21 12:42 Hydralazine HCl (Apresoline Inj) 20 mg PRN Q4HRS PRN IVP ELEVATED BP, SEE COMMENTS 01/16/21 13:00 01/16/21 13:30 Nicardipine HCl 50 mg/Sodium Chloride 250 ml @ 25 mls/hr CONT PRN IV SEE I/O RECORD 01/16/21 14:00 01/17/21 04:25 Assessment Assessment 1. Acute metabolic encephalopathy, etiology not clear. The patient has had similar episodes in the past. 2. Acute hypertensive crisis. This may be also contributing to the acute metabolic encephalopathy. 3. End-stage renal disease on hemodialysis. 4. Anemia. 5. Coronary artery disease. 6. Diastolic congestive heart failure. 7. Fever: The patient had fever of 103. This may be due to her agitation, but sepsis needs to be ruled out. Lactic acid level is normal. 8. 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 9. 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 10. Physical deconditioning. 11. Status post coronary artery bypass grafting. 12. Peripheral artery disease. PLAN: 1. Acute metabolic encephalopathy. Continue to give her lorazepam as needed. Monitor closely in the Intensive Care Unit. Consult Dr. Martinez for neurology evaluation and management. Likely due to hypertensive crisis.Mental status is improving. 2. Acute hypertensive crisis. The patient is responding to Cardene drip. Consult Dr. Leahy for cardiology evaluation and management. 3. Elevated troponin. This may be due to demand ischemia and also end-stage renal disease may be contributing. 4. End-stage renal disease, on hemodialysis. 5. Coronary artery disease. 6. Diastolic congestive heart failure. 7. Physical deconditioning. 8. Asthma. 9. Gastroesophageal reflux disease. 10. Hyperlipidemia. 11. Severe pulmonary hypertension. 12. 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 13. History of depression. 14. 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 Monitor blood sugar. 15. History of secondary hyperparathyroidism. Consult Dr. Hernandez for management of end-stage renal disease and hemodialysis. Condition treatment discussed with the patient's brother at bedside in the Emergency Room. Prognosis of this patient is extremely poor due to her multiple medical problems. I will also consult Dr. Ray Nino for Infectious Disease evaluation and management because of her fever of 103 degrees Fahrenheit. Her chest x-ray, urinalysis as well as SARS-CoV-2 test is negative. As patient remained stable patient was admitted to CVC unit. Blood pressure is well controlled. Patient remains afebrile. Labs reviewed. D/w . Plan Plan For more details regarding further plans, please refer to the orders. Justifications for Admission Other Justification GAURAV DANG MD Jan 17, 2021 08:54
--- NOTE | 2021-01-17 10:56 | PDOC2 ---
NEUROLOGY CONSULT Date of Service DOS: DATE: 01/17/21 TIME: 10:46 Reason for Consult Reason for Consult: Altered mental status Referring Physician Referring Physician: Dr. Ng Source Source: Caregiver (daughter), Chart review, Patient History of Present Illness History of Present Illness The patient is a 60-year-old right-handed female who at dialysis yesterday morning started screaming, became combative, thrashed around, dislodged her catheter with resultant bleeding. She had hypertension, glucose was normal. The patient was given IV hydralazine, IV lorazepam, IV labetalol, and intramuscular Geodon. She then calm down and slept through the day. This morning she is back to normal but has no memory for yesterday. Neurology has seen her several times in the past, most recently in 2018. As I recall, she got confused and combative at dialysis when I saw her in 2017. She has had EEG studies and numerous brain imaging studies, all negative. She has had blurred vision ever since bilateral cataract surgery. She has had several strokes leaving her with mild left hemiparesis Past Medical History Cardiovascular: CAD, CHF, HTN, Hyperlipidemia Pulmonary: Asthma, Pneumonia CENTRAL NERVOUS SYSTEM: CVA, Other (Headaches) GI: Constipation (And diarrhea), GERD, Peptic Ulcer disease Heme/Onc: Anemia NOS Psych: Anxiety Renal/: Chronic renal failure (Dialysis) Endocrine: Diabetes Past Surgical History Past Surgical History: Cholecystectomy, CABG, Cataract Removal, Tubal Ligation, Hysterectomy, Other (Dialysis catheter) Family History Family History: DM Social History Social History Quit using tobacco, alcohol, street drugs several years ago. Current Medications Current Medications Current Medications Fentanyl Citrate (Fentanyl 2ml Vial) 75 mcg 1X ONCE IVP Last administered on 01/16/21at 08:31; Start 01/16/21 at 08:00; Stop 01/16/21 at 08:05; Status DC Ziprasidone (Geodon Im) 20 mg 1X ONCE IM Last administered on 01/16/21at 08:08; Start 01/16/21 at 08:00; Stop 01/16/21 at 08:05; Status DC Lorazepam (Ativan Inj) 2 mg 1X ONCE IVP Last administered on 01/16/21at 08:45; Start 01/16/21 at 08:45; Stop 01/16/21 at 08:46; Status DC Hydralazine HCl (Apresoline Inj) 20 mg 1X ONCE IVP Last administered on 01/16/21at 09:04; Start 01/16/21 at 09:00; Stop 01/16/21 at 09:02; Status DC Lorazepam (Ativan Inj) 2 mg 1X ONCE IVP Last administered on 01/16/21at 09:40; Start 01/16/21 at 09:30; Stop 01/16/21 at 09:31; Status DC Labetalol HCl (Normodyne Iv Push) 10 mg 1X ONCE IVP Last administered on 01/16/21at 12:03; Start 01/16/21 at 11:00; Stop 01/16/21 at 11:01; Status DC Aspirin (Aspirin Rectal Supp) 300 mg 1X ONCE MI Last administered on 01/16/21at 12:05; Start 01/16/21 at 11:15; Stop 01/16/21 at 11:16; Status DC Ondansetron HCl (Zofran) 4 mg PRN Q8HRS PRN IVP NAUSEA/VOMITING; Start 01/16/21 at 11:30; Stop 01/17/21 at 11:29 Insulin Human Lispro (HumaLOG) 0-5 UNITS TIDWMEALS SQ ; Start 01/16/21 at 12:00 Dextrose (Dextrose 50%-Water Syringe) 12.5 gm PRN Q15MIN PRN IV SEE COMMENTS; Start 01/16/21 at 11:30 Lorazepam (Ativan Inj) 1 mg PRN Q4HRS PRN IVP ANXIETY / AGITATION Last administered on 01/16/21at 12:42; Start 01/16/21 at 12:45 Hydralazine HCl (Apresoline Inj) 20 mg PRN Q4HRS PRN IVP ELEVATED BP, SEE COMMENTS Last administered on 01/16/21at 13:30; Start 01/16/21 at 13:00 Nicardipine HCl 50 mg/Sodium Chloride 250 ml @ 25 mls/hr CONT PRN IV SEE I/O RECORD Last administered on 01/17/21at 04:25; Start 01/16/21 at 14:00 Active Scripts Active Lactulose 20 Gm/30 Ml Solution 20 Gm PO BID 5 Days Culturelle (Lactobacillus Rhamnosus Gg) 1 Each Cap.sprink 1 Cap PO BID Metoclopramide Hcl 5 Mg/1 Ml Vial 5 Mg IV PRN Q6HRS PRN Metoclopramide Hcl 5 Mg/1 Ml Vial 5 Mg IV [id number] Ondansetron Hcl 4 Mg/2 Ml Vial (Ondansetron Hcl/Pf) 4 Mg/2 Ml Vial 4 Mg IV PRN Q6HRS PRN Buspirone Hcl 5 Mg Tablet 5 Mg PO TID Quetiapine Fumarate 25 Mg Tablet 12.5 Mg PO PRN Q6HRS PRN Quetiapine Fumarate 25 Mg Tablet 25 Mg PO QHS Sertraline Hcl 50 Mg Tablet 50 Mg PO DAILY Hydrocodone-Apap 7.5-325 (Hydrocodone Bit/Acetaminophen) 1 Each Tablet 1 Tab PO PRN Q8HRS PRN Fentanyl 0.05 Mg/Ml Vial (Fentanyl Citrate/Pf) 50 Mcg/1 Ml Vial 50 Mcg IV PRN Q4HRS PRN [Darbepoetin Ty In Polysorbat] 60 MCG/0.3 ML Disp.syrin 60 Mcg SQ WEEKLYHS Zyvox (Linezolid) 600 Mg Tablet 600 Mg PO BID Vitamin D3 (Cholecalciferol (Vitamin D3)) 1,000 Unit Tablet 1 Tab PO DAILY [Calcium Acetate] 667 MG Capsule 1,334 Mg PO TIDWMEALS Mapap (Acetaminophen) 500 Mg Tablet 1,000 Mg PO TID Carvedilol (Carvedilol) 12.5 Mg Tablet 12.5 Mg PO BIDWMEALS Minoxidil 2.5 Mg Tablet 2.5 Mg PO BID Isosorbide Mononitrate Er (Isosorbide Mononitrate) 30 Mg Tab.er.24h 120 Mg PO DAILY Montelukast Sodium Tablet (Montelukast Sodium) 10 Mg Tablet 10 Mg PO QHS Polyethylene Glycol 3350 2,500 Gm Powder 17 Gm PO DAILY Novolog Flexpen (Insulin Aspart) 100 Unit/1 Ml Insuln.pen 0 Units SQ TIDAC Take sub q tid ac: BS 151-200=2 unit, 201-250=3 unit, [id number], BS 301-350=6 unit, BS 351-400 =8 unit. BS>401 call MD Renetta Busch 10,000 Units Capsule (Lipase/Protease/Amylase) 1 Each Capsule. 2 Cap PO TIDWMEALS TAke 2 cap tid with meals Nephro-Donny Tablet (Folic Acid/Vitamin B Comp W-C) 0.8 Mg Tablet 1 Tab PO DAILY Benadryl (Diphenhydramine Hcl) 25 Mg Capsule 25 Mg PO PRN Q6HRS PRN Reported Lactulose 10 Gm Packet 10 Gm PO Q6HRS Lidocaine 15 Gm Cream..g. 1 Karma TP TID PRN 30 Days Isosorbide Mononitrate Er (Isosorbide Mononitrate) 60 Mg Tab.er.24h 1 Tab PO DAILY Vitamin A 2,400 Mcg Capsule 1,250 Mcg PO WEEKLY Hydrocodone-Apap 10-325 (Hydrocodone Bit/Acetaminophen) 1 Tab Tablet 1 Tab PO PRN Q6HRS PRN Ultram (Tramadol Hcl) 50 Mg Tablet 1 Tab PO BID MDD 2 Tablet(s) 30 Days Hydralazine Hcl 50 Mg Tablet 1 Tab PO TID Acetaminophen 325 Mg Tablet 2 Tab PO Q6HRS PRN 30 Days Glucose Gel (Dextrose) 38 Gm Gel..gram. 15 Gm PO PRN Sertraline Hcl 100 Mg Tablet 100 Mg PO DAILY Glucagon Emergency Kit (Glucagon,Human Recombinant) 1 Mg Kit 1 Mg IM PRN Senna Plus Tablet (Sennosides/Docusate Sodium) 1 Each Tablet 2 Tab PO QHS 14 Days Zetia (Ezetimibe) 10 Mg Tablet 1 Tab PO DAILY 30 Days Renvela (Sevelamer Carbonate) 800 Mg Tablet 800 Mg PO TIDWMEALS Escitalopram Oxalate 10 Mg Tablet 1 Tab PO DAILY Lyrica (Pregabalin) 50 Mg Capsule 25 Mg PO QHS [creon] 1 Cap PO TIDAC Oxycodone HCl 5 Mg Tablet 5 Mg PO Q8HRS PRN [zenpep] 10 Mg PO TIDAC Clonidine Hcl 0.2 Mg Tablet 0.2 Mg PO BID Zofran (Ondansetron Hcl) 4 Mg Tablet 1 Tab PO Q4HRS PRN Sensipar (Cinacalcet Hcl) 30 Mg Tablet 1 Tab PO DAILY 30 Days Mirtazapine 15 Mg Tablet 1 Tab PO QHS Atorvastatin Calcium 40 Mg Tablet 80 Mg PO HS Minoxidil 2.5 Mg Tablet 2.5 Mg PO DAILY Amlodipine Besylate 10 Mg Tablet 10 Mg PO DAILY Lidocaine PATCH (Lidocaine) 1 Each Adh..patch 1 Each TP DAILY REMOVE AFTER 12 HOURS Proair Hfa Inhaler (Albuterol Sulfate) 8.5 Gm Hfa.aer.ad 2 Puff INH PRN Q6HRS PRN Nitrostat (Nitroglycerin) 0.4 Mg Tab.subl 0.4 Mg SL PRN Q5MIN PRN Plavix (Clopidogrel Bisulfate) 75 Mg Tablet 1 Tab PO DAILY Zoloft (Sertraline Hcl) 100 Mg Tablet 1 Tab PO DAILY Pantoprazole Sodium (Pantoprazole Sodium) 40 Mg Tablet.dr 1 Tab PO DAILY Losartan Potassium 100 Mg Tablet 100 Mg PO DAILY Aspir 81 (Aspirin) 81 Mg Tablet.dr 81 Mg PO DAILY Allergies Allergies: Coded Allergies: amitriptyline (Verified Allergy, Intermediate, 11/09/16) hydromorphone (Verified Allergy, Intermediate, LORTAB OK AT HOME, 05/05/17) lisinopril (Verified Allergy, Intermediate, 11/09/16) metformin (Verified Allergy, Intermediate, 11/09/16) I S O L A T I O N *CONTACT* (Verified Allergy, Unknown, 11/09/16) mrsa ROS Review of System Negative for fever, chills, weight loss, shortness of breath, chest pain, ind igestion, hematochezia, melena, and dysuria. Full 14-point review of systems is negative. Physical Exam Physical Examination General: Well-developed, well-nourished black female in no acute distress HEENT: Normocephalic andatraumatic.Temporal arteriespulsatile and nontender. Neck: Supple without bruit, no meningismus Musculoskeletal: Stability:see neurologic. Gait exam:see neurologic. Tone:see neurologic.Strength:see neurologic. Neurological: Mental Status:intact, orientation, memory, attention span/concentration, language, fund of knowledge normal. Cranial Nerves:Pupils equal and reactive to light, extraocular movements areintact, visual cancino are full to confrontation. Facial sensation is normal. There is no facial asymmetry. Vestibulo-ocular reflex is intact. Palate elevates and tongue protrudes in midline. All other cranial related problems are negative except as mentioned before.Reflexes:0-1+ and symmetric with flexor plantar responses. Motor:4/5, weaker on the left, with normal tone and bulk. Coordination:Finger-nose finger and wyep-yl-cawj testing are normal. Rapid alternating movements and fine finger movements are intact. Gait: not tested. Sensory:stocking loss. Vitals VITALS Vital Signs Date Time Temp Pulse Resp B/P (MAP) Pulse Ox O2 Delivery O2 Flow Rate FiO2 01/17/21 07:47 66 133/58 (83) 01/17/21 06:39 98.0 19 99 Nasal Cannula 2.0 98.0 Labs Labs Laboratory Tests Test 01/16/21 08:05 01/16/21 08:18 01/16/21 08:25 01/16/21 08:40 White Blood Count 4.7 x10^3/uL (4.0-11.0) Red Blood Count 3.59 x10^6/uL (3.50-5.40) Hemoglobin 11.2 g/dL (12.0-15.5) Hematocrit 33.9 % (36.0-47.0) Mean Corpuscular Volume 94 fL (79-100) Mean Corpuscular Hemoglobin 31 pg (25-35) Mean Corpuscular Hemoglobin Concent 33 g/dL (31-37) Red Cell Distribution Width 16.9 % (11.5-14.5) Platelet Count 170 x10^3/uL (140-400) Neutrophils (%) (Auto) 72 % (31-73) Lymphocytes (%) (Auto) 16 % (24-48) Monocytes (%) (Auto) 7 % (0-9) Eosinophils (%) (Auto) 5 % (0-3) Basophils (%) (Auto) 1 % (0-3) Neutrophils # (Auto) 3.4 x10^3/uL (1.8-7.7) Lymphocytes # (Auto) 0.7 x10^3/uL (1.0-4.8) Monocytes # (Auto) 0.3 x10^3/uL (0.0-1.1) Eosinophils # (Auto) 0.2 x10^3/uL (0.0-0.7) Basophils # (Auto) 0.0 x10^3/uL (0.0-0.2) Glucose (Fingerstick) 116 mg/dL (70-99) Prothrombin Time 14.3 SEC (11.7-14.0) Prothromb Time International Ratio 1.1 (0.8-1.1) Activated Partial Thromboplast Time 29 SEC (24-38) Sodium Level 142 mmol/L (136-145) Potassium Level 3.8 mmol/L (3.5-5.1) Chloride Level 101 mmol/L (98-107) Carbon Dioxide Level 29 mmol/L (21-32) Anion Gap 12 (6-14) Blood Urea Nitrogen 43 mg/dL (7-20) Creatinine 6.0 mg/dL (0.6-1.0) Estimated GFR (Cockcroft-Gault) 8.7 BUN/Creatinine Ratio 7 (6-20) Glucose Level 125 mg/dL (70-99) Lactic Acid Level 1.9 mmol/L (0.4-2.0) Calcium Level 8.4 mg/dL (8.5-10.1) Magnesium Level 2.4 mg/dL (1.8-2.4) Total Bilirubin 0.6 mg/dL (0.2-1.0) Aspartate Amino Transf (AST/SGOT) 21 U/L (15-37) Alanine Aminotransferase (ALT/SGPT) 26 U/L (14-59) Alkaline Phosphatase 76 U/L (46-116) Ammonia < 10 mcmol/L (11-34) Creatine Kinase 142 U/L (26-192) Creatine Kinase MB (Mass) 3.9 ng/mL (0.0-3.6) Creatine Kinase MB Relative Index 2.7 % (0-4) Troponin I Quantitative 0.058 ng/mL (0.000-0.055) Total Protein 6.0 g/dL (6.4-8.2) Albumin 3.5 g/dL (3.4-5.0) Albumin/Globulin Ratio 1.4 (1.0-1.7) Lipase 650 U/L (73-393) Salicylates Level < 2.8 mg/dL (2.8-20.0) Salicylate Last Dose Date Unknown Salicylate Last Dose Time Unknown Acetaminophen Level < 2 mcg/ml (10-30) Acetaminophen Last Dose Date Unknown Acetaminophen Last Dose Time Unknown Ethyl Alcohol Level < 10 mg/dL (0-10) Urine Collection Type U cath Urine Color Yellow Urine Clarity Clear Urine pH 7.5 (<5.0-8.0) Urine Specific [place] 1.015 (1.000-1.030) Urine Protein >=300 mg/dL (NEG-TRACE) Urine Glucose (UA) 100 mg/dL (NEG) Urine Ketones (Stick) Negative mg/dL (NEG) Urine Blood Trace (NEG) Urine Nitrite Negative (NEG) Urine Bilirubin Negative (NEG) Urine Urobilinogen Dipstick 0.2 mg/dL (0.2 mg/dL) Urine Leukocyte Esterase Negative (NEG) Urine RBC Occ /HPF (0-2) Urine WBC 1-4 /HPF (0-4) Urine Squamous Epithelial Cells Mod /LPF Urine Transitional Epithelial Cells Few /LPF Urine Renal Epithelial Cells Few /LPF Urine Bacteria 0 /HPF (0-FEW) Urine Mucus Slight /LPF Urine Opiates Screen Neg (NEG) Urine Methadone Screen Neg (NEG) Urine Barbiturates Neg (NEG) Urine Phencyclidine Screen Neg (NEG) Urine Amphetamine/Methamphetamine Neg (NEG) Urine Benzodiazepines Screen Neg (NEG) Urine Cocaine Screen Neg (NEG) Urine Cannabinoids Screen Pos (NEG) Urine Ethyl Alcohol Neg (NEG) Test 01/16/21 09:18 01/16/21 14:35 01/17/21 04:30 01/17/21 07:44 SARS-CoV-2 RNA (MICHAEL) Positive (Negative) SARS-CoV-2 Antigen (Rapid) Negative (NEGATIVE) Troponin I Quantitative 0.091 ng/mL (0.000-0.055) 1.017 ng/mL (0.000-0.055) White Blood Count 5.1 x10^3/uL (4.0-11.0) Red Blood Count 3.00 x10^6/uL (3.50-5.40) Hemoglobin 9.5 g/dL (12.0-15.5) Hematocrit 28.4 % (36.0-47.0) Mean Corpuscular Volume 95 fL (79-100) Mean Corpuscular Hemoglobin 32 pg (25-35) Mean Corpuscular Hemoglobin Concent 33 g/dL (31-37) Red Cell Distribution Width 16.6 % (11.5-14.5) Platelet Count 155 x10^3/uL (140-400) Neutrophils (%) (Auto) 76 % (31-73) Lymphocytes (%) (Auto) 15 % (24-48) Monocytes (%) (Auto) 7 % (0-9) Eosinophils (%) (Auto) 1 % (0-3) Basophils (%) (Auto) 1 % (0-3) Neutrophils # (Auto) 3.9 x10^3/uL (1.8-7.7) Lymphocytes # (Auto) 0.8 x10^3/uL (1.0-4.8) Monocytes # (Auto) 0.3 x10^3/uL (0.0-1.1) Eosinophils # (Auto) 0.1 x10^3/uL (0.0-0.7) Basophils # (Auto) 0.0 x10^3/uL (0.0-0.2) Sodium Level 141 mmol/L (136-145) Potassium Level 4.8 mmol/L (3.5-5.1) Chloride Level 103 mmol/L (98-107) Carbon Dioxide Level 29 mmol/L (21-32) Anion Gap 9 (6-14) Blood Urea Nitrogen 54 mg/dL (7-20) Creatinine 7.6 mg/dL (0.6-1.0) Estimated GFR (Cockcroft-Gault) 6.6 BUN/Creatinine Ratio 7 (6-20) Glucose Level 72 mg/dL (70-99) Calcium Level 7.8 mg/dL (8.5-10.1) Phosphorus Level 7.4 mg/dL (2.6-4.7) Total Bilirubin 0.4 mg/dL (0.2-1.0) Aspartate Amino Transf (AST/SGOT) 22 U/L (15-37) Alanine Aminotransferase (ALT/SGPT) 22 U/L (14-59) Alkaline Phosphatase 68 U/L (46-116) Total Protein 5.4 g/dL (6.4-8.2) Albumin 3.2 g/dL (3.4-5.0) Albumin/Globulin Ratio 1.5 (1.0-1.7) Glucose (Fingerstick) 75 mg/dL (70-99) Laboratory Tests Test 01/16/21 14:35 01/17/21 04:30 01/17/21 07:44 Troponin I Quantitative 0.091 ng/mL (0.000-0.055) 1.017 ng/mL (0.000-0.055) White Blood Count 5.1 x10^3/uL (4.0-11.0) Red Blood Count 3.00 x10^6/uL (3.50-5.40) Hemoglobin 9.5 g/dL (12.0-15.5) Hematocrit 28.4 % (36.0-47.0) Mean Corpuscular Volume 95 fL (79-100) Mean Corpuscular Hemoglobin 32 pg (25-35) Mean Corpuscular Hemoglobin Concent 33 g/dL (31-37) Red Cell Distribution Width 16.6 % (11.5-14.5) Platelet Count 155 x10^3/uL (140-400) Neutrophils (%) (Auto) 76 % (31-73) Lymphocytes (%) (Auto) 15 % (24-48) Monocytes (%) (Auto) 7 % (0-9) Eosinophils (%) (Auto) 1 % (0-3) Basophils (%) (Auto) 1 % (0-3) Neutrophils # (Auto) 3.9 x10^3/uL (1.8-7.7) Lymphocytes # (Auto) 0.8 x10^3/uL (1.0-4.8) Monocytes # (Auto) 0.3 x10^3/uL (0.0-1.1) Eosinophils # (Auto) 0.1 x10^3/uL (0.0-0.7) Basophils # (Auto) 0.0 x10^3/uL (0.0-0.2) Sodium Level 141 mmol/L (136-145) Potassium Level 4.8 mmol/L (3.5-5.1) Chloride Level 103 mmol/L (98-107) Carbon Dioxide Level 29 mmol/L (21-32) Anion Gap 9 (6-14) Blood Urea Nitrogen 54 mg/dL (7-20) Creatinine 7.6 mg/dL (0.6-1.0) Estimated GFR (Cockcroft-Gault) 6.6 BUN/Creatinine Ratio 7 (6-20) Glucose Level 72 mg/dL (70-99) Calcium Level 7.8 mg/dL (8.5-10.1) Phosphorus Level 7.4 mg/dL (2.6-4.7) Total Bilirubin 0.4 mg/dL (0.2-1.0) Aspartate Amino Transf (AST/SGOT) 22 U/L (15-37) Alanine Aminotransferase (ALT/SGPT) 22 U/L (14-59) Alkaline Phosphatase 68 U/L (46-116) Total Protein 5.4 g/dL (6.4-8.2) Albumin 3.2 g/dL (3.4-5.0) Albumin/Globulin Ratio 1.5 (1.0-1.7) Glucose (Fingerstick) 75 mg/dL (70-99) Images Images CT HEAD/BRAIN WO History: Reason: altered mental status / Spl. Instructions: / History: Comparison: December 25, 2017 Technique: Noncontrast CT imaging was performed of the head. Exposure: One or more of the following individualized dose reduction techniques were utilized for this examination: 1. Automated exposure control 2. Adjustment of the mA and/or kV according to patient size 3. Use of iterative reconstruction technique. Findings: No intracranial hemorrhage. No mass effect. No hydrocephalus. Moderate mul tifocal foci of decreased attenuation within the hemispheric white matter, progressed compared to prior. Chronic right basal ganglia and bilateral thalamic lacunar infarcts. Imaged orbits are unremarkable. Imaged paranasal sinuses and mastoid air cells a re clear. No acute calvarial fracture. Impression: 1. No acute intracranial hemorrhage. 2. Moderate nonspecific white matter changes, most often due to chronic microvascular ischemia. Differential considerations include demyelinating disease or vasculitis. Overall findings are progressed compared to 2018. If persistent clinical concern for acute ischemia, MRI can better evaluate. 3. Chronic right basal ganglia and bilateral thalamic lacunar infarcts. Assessment/Plan Assessment/Plan Impression: Encephalopathy, which she has had before, she was hypertensive which may have been the cause, but the cause-effect arrow may be bidirectional. In any event, she is back to normal now. She has had numerous evaluations in the past. History of strokes including chronic right basal ganglia and bilateral thalamic lacunar infarcts on the CT. CT also shows white matter disease consistent with hypertension and diabetes, I doubt that she also has demyelinating disease. Elevated troponin, renal failure Recommendations: No need for additional neurological studies, she has had numerous ones in the past. Treat medical issues Discussed with patient and her daughter. Thank you for letting me help with the patient's care. MARINA REYNOSO MD Jan 17, 2021 10:56
--- NOTE | 2021-01-17 10:59 | PDOC2 ---
CONSULT Date of Consult Date of Consult DATE: 01/17/21 TIME: 10:47 Reason for Consult Reason for Consult: ESRD Referring Physician Referring Physician: ALTON Identification/Chief Complaint Chief Complaint CONFUSION Source Source: Chart review History of Present Illness Reason for Visit: THIS IS A 60 YR WITH ESRD. SHE HAS OP HD ON TTS. USES A LEFT ARM AVF FOR HER HD. WENT TO HD YESTERDAY AND REPORTED NAUSEA. STATED THAT SHE DID NOT TAKE HER BP MEDS IN THE AM. WHILE ON HD SHE BECAME AGITATED AND CONFUSED. REPORTED SBP THERE OVER 240. UNABLE TO COMFORT HER SHE WAS THRASHING AROUND PER DIALYSIS UNIT STAFF AND SHE ALSO DEVELOPED INFILTRATION AND BLEEDING FROM HER ACCESS SITE. EMS WAS CALLED A [facility] WAS PLACED AND SHE WAS TRANSPORTED HERE TO THE ER. NOW ADMITTED WITH CONFUSION AND VERY HIGH BP. HAD A FEVER OF 103 HERE BUT HAS ABATED. REMAINS CONFUSED. IMAGING OF THE BRAIN WAS UNREMARKABLE FOR ACUTE CHANGES PAST MEDICAL HISTORY: The patient has a history of end-stage renal disease on hemodialysis, history of moderate pericardial effusion, pleural effusion, coronary artery disease, had cardiac cath in 07/2017. 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 Past Medical History Cardiovascular: CAD, CHF, HTN, Hyperlipidemia, Pulmonary hypertension Pulmonary: Asthma, Other (PULM HTN) CENTRAL NERVOUS SYSTEM: CVA GI: Constipation, GERD, Other Heme/Onc: Anemia NOS Hepatobiliary: Hep A/B/C Psych: Addictions, Depression Musculoskeletal: Osteoarthritis Renal/: Chronic renal failure Endocrine: Diabetes, Hyperparathyroidism Past Surgical History Past Surgical History SACRAL WOUND HX AND SUBSEQUENT HEALING AFTER I&D Past Surgical History: Cholecystectomy, CABG, Hysterectomy, Other Family History Family History: Heart Disease, Kidney Disease Social History ALCOHOL: none Drugs: None Lives: with Family Current Problem List Problem List Problems Medical Problems: (1) Altered mental status Status: Acute (2) ESRD (end stage renal disease) on dialysis Status: Acute (3) Hypertensive urgency Status: Acute Current Medications Current Medications Current Medications Fentanyl Citrate (Fentanyl 2ml Vial) 75 mcg 1X ONCE IVP Last administered on 01/16/21at 08:31; Start 01/16/21 at 08:00; Stop 01/16/21 at 08:05; Status DC Ziprasidone (Geodon Im) 20 mg 1X ONCE IM Last administered on 01/16/21at 08:08; Start 01/16/21 at 08:00; Stop 01/16/21 at 08:05; Status DC Lorazepam (Ativan Inj) 2 mg 1X ONCE IVP Last administered on 01/16/21at 08:45; Start 01/16/21 at 08:45; Stop 01/16/21 at 08:46; Status DC Hydralazine HCl (Apresoline Inj) 20 mg 1X ONCE IVP Last administered on 01/16/21at 09:04; Start 01/16/21 at 09:00; Stop 01/16/21 at 09:02; Status DC Lorazepam (Ativan Inj) 2 mg 1X ONCE IVP Last administered on 01/16/21at 09:40; Start 01/16/21 at 09:30; Stop 01/16/21 at 09:31; Status DC Labetalol HCl (Normodyne Iv Push) 10 mg 1X ONCE IVP Last administered on 01/05 07/28at 12:03; Start 01/16/21 at 11:00; Stop 01/16/21 at 11:01; Status DC Aspirin (Aspirin Rectal Supp) 300 mg 1X ONCE KS Last administered on 01/16/21at 12:05; Start 01/16/21 at 11:15; Stop 01/16/21 at 11:16; Status DC Ondansetron HCl (Zofran) 4 mg PRN Q8HRS PRN IVP NAUSEA/VOMITING; Start 01/16/21 at 11:30; Stop 01/17/21 at 11:29 Insulin Human Lispro (HumaLOG) 0-5 UNITS TIDWMEALS SQ ; Start 01/16/21 at 12:00 Dextrose (Dextrose 50%-Water Syringe) 12.5 gm PRN Q15MIN PRN IV SEE COMMENTS; Start 01/16/21 at 11:30 Lorazepam (Ativan Inj) 1 mg PRN Q4HRS PRN IVP ANXIETY / AGITATION Last administered on 01/16/21at 12:42; Start 01/16/21 at 12:45 Hydralazine HCl (Apresoline Inj) 20 mg PRN Q4HRS PRN IVP ELEVATED BP, SEE COMMENTS Last administered on 01/16/21at 13:30; Start 01/16/21 at 13:00 Nicardipine HCl 50 mg/Sodium Chloride 250 ml @ 25 mls/hr CONT PRN IV SEE I/O RECORD Last administered on 01/17/21at 04:25; Start 01/16/21 at 14:00 Active Scripts Active Lactulose 20 Gm/30 Ml Solution 20 Gm PO BID 5 Days Culturelle (Lactobacillus Rhamnosus Gg) 1 Each Cap.sprink 1 Cap PO BID Metoclopramide Hcl 5 Mg/1 Ml Vial 5 Mg IV PRN Q6HRS PRN Metoclopramide Hcl 5 Mg/1 Ml Vial 5 Mg IV [id number] Ondansetron Hcl 4 Mg/2 Ml Vial (Ondansetron Hcl/Pf) 4 Mg/2 Ml Vial 4 Mg IV PRN Q6HRS PRN Buspirone Hcl 5 Mg Tablet 5 Mg PO TID Quetiapine Fumarate 25 Mg Tablet 12.5 Mg PO PRN Q6HRS PRN Quetiapine Fumarate 25 Mg Tablet 25 Mg PO QHS Sertraline Hcl 50 Mg Tablet 50 Mg PO DAILY Hydrocodone-Apap 7.5-325 (Hydrocodone Bit/Acetaminophen) 1 Each Tablet 1 Tab PO PRN Q8HRS PRN Fentanyl 0.05 Mg/Ml Vial (Fentanyl Citrate/Pf) 50 Mcg/1 Ml Vial 50 Mcg IV PRN Q4HRS PRN [Darbepoetin Ty In Polysorbat] 60 MCG/0.3 ML Disp.syrin 60 Mcg SQ WEEKLYHS Zyvox (Linezolid) 600 Mg Tablet 600 Mg PO BID Vitamin D3 (Cholecalciferol (Vitamin D3)) 1,000 Unit Tablet 1 Tab PO DAILY [Calcium Acetate] 667 MG Capsule 1,334 Mg PO TIDWMEALS Mapap (Acetaminophen) 500 Mg Tablet 1,000 Mg PO TID Carvedilol (Carvedilol) 12.5 Mg Tablet 12.5 Mg PO BIDWMEALS Minoxidil 2.5 Mg Tablet 2.5 Mg PO BID Isosorbide Mononitrate Er (Isosorbide Mononitrate) 30 Mg Tab.er.24h 120 Mg PO DAILY Montelukast Sodium Tablet (Montelukast Sodium) 10 Mg Tablet 10 Mg PO QHS Polyethylene Glycol 3350 2,500 Gm Powder 17 Gm PO DAILY Novolog Flexpen (Insulin Aspart) 100 Unit/1 Ml Insuln.pen 0 Units SQ TIDAC Take sub q tid ac: BS 151-200=2 unit, 201-250=3 unit, TS352-184, BS 301-350=6 unit, BS 351-400 =8 unit. BS>401 call MD Renetta Busch 10,000 Units Capsule (Lipase/Protease/Amylase) 1 Each Capsule.dr 2 Cap PO TIDWMEALS TAke 2 cap tid with meals Nephro-Donny Tablet (Folic Acid/Vitamin B Comp W-C) 0.8 Mg Tablet 1 Tab PO DAILY Benadryl (Diphenhydramine Hcl) 25 Mg Capsule 25 Mg PO PRN Q6HRS PRN Reported Lactulose 10 Gm Packet 10 Gm PO Q6HRS Lidocaine 15 Gm Cream..g. 1 Karma TP TID PRN 30 Days Isosorbide Mononitrate Er (Isosorbide Mononitrate) 60 Mg Tab.er.24h 1 Tab PO DAILY Vitamin A 2,400 Mcg Capsule 1,250 Mcg PO WEEKLY Hydrocodone-Apap 10-325 (Hydrocodone Bit/Acetaminophen) 1 Tab Tablet 1 Tab PO PRN Q6HRS PRN Ultram (Tramadol Hcl) 50 Mg Tablet 1 Tab PO BID MDD 2 Tablet(s) 30 Days Hydralazine Hcl 50 Mg Tablet 1 Tab PO TID Acetaminophen 325 Mg Tablet 2 Tab PO Q6HRS PRN 30 Days Glucose Gel (Dextrose) 38 Gm Gel..gram. 15 Gm PO PRN Sertraline Hcl 100 Mg Tablet 100 Mg PO DAILY Glucagon Emergency Kit (Glucagon,Human Recombinant) 1 Mg Kit 1 Mg IM PRN Senna Plus Tablet (Sennosides/Docusate Sodium) 1 Each Tablet 2 Tab PO QHS 14 Days Zetia (Ezetimibe) 10 Mg Tablet 1 Tab PO DAILY 30 Days Renvela (Sevelamer Carbonate) 800 Mg Tablet 800 Mg PO TIDWMEALS Escitalopram Oxalate 10 Mg Tablet 1 Tab PO DAILY Lyrica (Pregabalin) 50 Mg Capsule 25 Mg PO QHS [creon] 1 Cap PO TIDAC Oxycodone HCl 5 Mg Tablet 5 Mg PO Q8HRS PRN [zenpep] 10 Mg PO TIDAC Clonidine Hcl 0.2 Mg Tablet 0.2 Mg PO BID Zofran (Ondansetron Hcl) 4 Mg Tablet 1 Tab PO Q4HRS PRN Sensipar (Cinacalcet Hcl) 30 Mg Tablet 1 Tab PO DAILY 30 Days Mirtazapine 15 Mg Tablet 1 Tab PO QHS Atorvastatin Calcium 40 Mg Tablet 80 Mg PO HS Minoxidil 2.5 Mg Tablet 2.5 Mg PO DAILY Amlodipine Besylate 10 Mg Tablet 10 Mg PO DAILY Lidocaine PATCH (Lidocaine) 1 Each Adh..patch 1 Each TP DAILY REMOVE AFTER 12 HOURS Proair Hfa Inhaler (Albuterol Sulfate) 8.5 Gm Hfa.aer.ad 2 Puff INH PRN Q6HRS PRN Nitrostat (Nitroglycerin) 0.4 Mg Tab.subl 0.4 Mg SL PRN Q5MIN PRN Plavix (Clopidogrel Bisulfate) 75 Mg Tablet 1 Tab PO DAILY Zoloft (Sertraline Hcl) 100 Mg Tablet 1 Tab PO DAILY Pantoprazole Sodium (Pantoprazole Sodium) 40 Mg Tablet. 1 Tab PO DAILY Losartan Potassium 100 Mg Tablet 100 Mg PO DAILY Aspir 81 (Aspirin) 81 Mg Tablet.dr 81 Mg PO DAILY Allergies Allergies: Coded Allergies: amitriptyline (Verified Allergy, Intermediate, 11/09/16) hydromorphone (Verified Allergy, Intermediate, LORTAB OK AT HOME, 05/05/17) lisinopril (Verified Allergy, Intermediate, 11/09/16) metformin (Verified Allergy, Intermediate, 11/09/16) I S O L A T I O N *CONTACT* (Verified Allergy, Unknown, 11/09/16) mrsa ROS Review of System UNABLE TO OBTAIN Physical Exam Physical Exam LEFT ARM BC AVF WITH A GOOD THRILL AND BRUIT General: Cooperative, mild distress HEENT: Atraumatic, PERRLA, Mucous membr. moist/pink Lungs: Clear to auscultation Heart: Regular rate Abdomen: Normal bowel sounds, Soft, No tenderness Extremities: No clubbing, No cyanosis, No edema, Normal pulses Skin: No rashes, No breakdown Neuro: Other (CONFUSED) Psych/Mental Status: Other (CLEARLY CONFUSED, BUT NO ASYMMETRY) MUSCULOSKELETAL: No deformity, No swelling Vitals VITALS Vital Signs Date Time Temp Pulse Resp B/P (MAP) Pulse Ox O2 Delivery O2 Flow Rate FiO2 01/17/21 07:47 66 133/58 (83) 01/17/21 06:39 98.0 19 99 Nasal Cannula 2.0 98.0 Labs Labs Laboratory Tests Test 01/16/21 08:05 01/16/21 08:18 01/16/21 08:25 01/16/21 08:40 White Blood Count 4.7 x10^3/uL (4.0-11.0) Red Blood Count 3.59 x10^6/uL (3.50-5.40) Hemoglobin 11.2 g/dL (12.0-15.5) Hematocrit 33.9 % (36.0-47.0) Mean Corpuscular Volume 94 fL (79-100) Mean Corpuscular Hemoglobin 31 pg (25-35) Mean Corpuscular Hemoglobin Concent 33 g/dL (31-37) Red Cell Distribution Width 16.9 % (11.5-14.5) Platelet Count 170 x10^3/uL (140-400) Neutrophils (%) (Auto) 72 % (31-73) Lymphocytes (%) (Auto) 16 % (24-48) Monocytes (%) (Auto) 7 % (0-9) Eosinophils (%) (Auto) 5 % (0-3) Basophils (%) (Auto) 1 % (0-3) Neutrophils # (Auto) 3.4 x10^3/uL (1.8-7.7) Lymphocytes # (Auto) 0.7 x10^3/uL (1.0-4.8) Monocytes # (Auto) 0.3 x10^3/uL (0.0-1.1) Eosinophils # (Auto) 0.2 x10^3/uL (0.0-0.7) Basophils # (Auto) 0.0 x10^3/uL (0.0-0.2) Glucose (Fingerstick) 116 mg/dL (70-99) Prothrombin Time 14.3 SEC (11.7-14.0) Prothromb Time International Ratio 1.1 (0.8-1.1) Activated Partial Thromboplast Time 29 SEC (24-38) Sodium Level 142 mmol/L (136-145) Potassium Level 3.8 mmol/L (3.5-5.1) Chloride Level 101 mmol/L (98-107) Carbon Dioxide Level 29 mmol/L (21-32) Anion Gap 12 (6-14) Blood Urea Nitrogen 43 mg/dL (7-20) Creatinine 6.0 mg/dL (0.6-1.0) Estimated GFR (Cockcroft-Gault) 8.7 BUN/Creatinine Ratio 7 (6-20) Glucose Level 125 mg/dL (70-99) Lactic Acid Level 1.9 mmol/L (0.4-2.0) Calcium Level 8.4 mg/dL (8.5-10.1) Magnesium Level 2.4 mg/dL (1.8-2.4) Total Bilirubin 0.6 mg/dL (0.2-1.0) Aspartate Amino Transf (AST/SGOT) 21 U/L (15-37) Alanine Aminotransferase (ALT/SGPT) 26 U/L (14-59) Alkaline Phosphatase 76 U/L (46-116) Ammonia < 10 mcmol/L (11-34) Creatine Kinase 142 U/L (26-192) Creatine Kinase MB (Mass) 3.9 ng/mL (0.0-3.6) Creatine Kinase MB Relative Index 2.7 % (0-4) Troponin I Quantitative 0.058 ng/mL (0.000-0.055) Total Protein 6.0 g/dL (6.4-8.2) Albumin 3.5 g/dL (3.4-5.0) Albumin/Globulin Ratio 1.4 (1.0-1.7) Lipase 650 U/L (73-393) Salicylates Level < 2.8 mg/dL (2.8-20.0) Salicylate Last Dose Date Unknown Salicylate Last Dose Time Unknown Acetaminophen Level < 2 mcg/ml (10-30) Acetaminophen Last Dose Date Unknown Acetaminophen Last Dose Time Unknown Ethyl Alcohol Level < 10 mg/dL (0-10) Urine Collection Type U cath Urine Color Yellow Urine Clarity Clear Urine pH 7.5 (<5.0-8.0) Urine Specific [place] 1.015 (1.000-1.030) Urine Protein >=300 mg/dL (NEG-TRACE) Urine Glucose (UA) 100 mg/dL (NEG) Urine Ketones (Stick) Negative mg/dL (NEG) Urine Blood Trace (NEG) Urine Nitrite Negative (NEG) Urine Bilirubin Negative (NEG) Urine Urobilinogen Dipstick 0.2 mg/dL (0.2 mg/dL) Urine Leukocyte Esterase Negative (NEG) Urine RBC Occ /HPF (0-2) Urine WBC 1-4 /HPF (0-4) Urine Squamous Epithelial Cells Mod /LPF Urine Transitional Epithelial Cells Few /LPF Urine Renal Epithelial Cells Few /LPF Urine Bacteria 0 /HPF (0-FEW) Urine Mucus Slight /LPF Urine Opiates Screen Neg (NEG) Urine Methadone Screen Neg (NEG) Urine Barbiturates Neg (NEG) Urine Phencyclidine Screen Neg (NEG) Urine Amphetamine/Methamphetamine Neg (NEG) Urine Benzodiazepines Screen Neg (NEG) Urine Cocaine Screen Neg (NEG) Urine Cannabinoids Screen Pos (NEG) Urine Ethyl Alcohol Neg (NEG) Test 01/16/21 09:18 01/16/21 14:35 01/17/21 04:30 01/17/21 07:44 SARS-CoV-2 RNA (MICHAEL) Positive (Negative) SARS-CoV-2 Antigen (Rapid) Negative (NEGATIVE) Troponin I Quantitative 0.091 ng/mL (0.000-0.055) 1.017 ng/mL (0.000-0.055) White Blood Count 5.1 x10^3/uL (4.0-11.0) Red Blood Count 3.00 x10^6/uL (3.50-5.40) Hemoglobin 9.5 g/dL (12.0-15.5) Hematocrit 28.4 % (36.0-47.0) Mean Corpuscular Volume 95 fL (79-100) Mean Corpuscular Hemoglobin 32 pg (25-35) Mean Corpuscular Hemoglobin Concent 33 g/dL (31-37) Red Cell Distribution Width 16.6 % (11.5-14.5) Platelet Count 155 x10^3/uL (140-400) Neutrophils (%) (Auto) 76 % (31-73) Lymphocytes (%) (Auto) 15 % (24-48) Monocytes (%) (Auto) 7 % (0-9) Eosinophils (%) (Auto) 1 % (0-3) Basophils (%) (Auto) 1 % (0-3) Neutrophils # (Auto) 3.9 x10^3/uL (1.8-7.7) Lymphocytes # (Auto) 0.8 x10^3/uL (1.0-4.8) Monocytes # (Auto) 0.3 x10^3/uL (0.0-1.1) Eosinophils # (Auto) 0.1 x10^3/uL (0.0-0.7) Basophils # (Auto) 0.0 x10^3/uL (0.0-0.2) Sodium Level 141 mmol/L (136-145) Potassium Level 4.8 mmol/L (3.5-5.1) Chloride Level 103 mmol/L (98-107) Carbon Dioxide Level 29 mmol/L (21-32) Anion Gap 9 (6-14) Blood Urea Nitrogen 54 mg/dL (7-20) Creatinine 7.6 mg/dL (0.6-1.0) Estimated GFR (Cockcroft-Gault) 6.6 BUN/Creatinine Ratio 7 (6-20) Glucose Level 72 mg/dL (70-99) Calcium Level 7.8 mg/dL (8.5-10.1) Phosphorus Level 7.4 mg/dL (2.6-4.7) Total Bilirubin 0.4 mg/dL (0.2-1.0) Aspartate Amino Transf (AST/SGOT) 22 U/L (15-37) Alanine Aminotransferase (ALT/SGPT) 22 U/L (14-59) Alkaline Phosphatase 68 U/L (46-116) Total Protein 5.4 g/dL (6.4-8.2) Albumin 3.2 g/dL (3.4-5.0) Albumin/Globulin Ratio 1.5 (1.0-1.7) Glucose (Fingerstick) 75 mg/dL (70-99) Laboratory Tests Test 01/16/21 14:35 01/17/21 04:30 01/17/21 07:44 Troponin I Quantitative 0.091 ng/mL (0.000-0.055) 1.017 ng/mL (0.000-0.055) White Blood Count 5.1 x10^3/uL (4.0-11.0) Red Blood Count 3.00 x10^6/uL (3.50-5.40) Hemoglobin 9.5 g/dL (12.0-15.5) Hematocrit 28.4 % (36.0-47.0) Mean Corpuscular Volume 95 fL (79-100) Mean Corpuscular Hemoglobin 32 pg (25-35) Mean Corpuscular Hemoglobin Concent 33 g/dL (31-37) Red Cell Distribution Width 16.6 % (11.5-14.5) Platelet Count 155 x10^3/uL (140-400) Neutrophils (%) (Auto) 76 % (31-73) Lymphocytes (%) (Auto) 15 % (24-48) Monocytes (%) (Auto) 7 % (0-9) Eosinophils (%) (Auto) 1 % (0-3) Basophils (%) (Auto) 1 % (0-3) Neutrophils # (Auto) 3.9 x10^3/uL (1.8-7.7) Lymphocytes # (Auto) 0.8 x10^3/uL (1.0-4.8) Monocytes # (Auto) 0.3 x10^3/uL (0.0-1.1) Eosinophils # (Auto) 0.1 x10^3/uL (0.0-0.7) Basophils # (Auto) 0.0 x10^3/uL (0.0-0.2) Sodium Level 141 mmol/L (136-145) Potassium Level 4.8 mmol/L (3.5-5.1) Chloride Level 103 mmol/L (98-107) Carbon Dioxide Level 29 mmol/L (21-32) Anion Gap 9 (6-14) Blood Urea Nitrogen 54 mg/dL (7-20) Creatinine 7.6 mg/dL (0.6-1.0) Estimated GFR (Cockcroft-Gault) 6.6 BUN/Creatinine Ratio 7 (6-20) Glucose Level 72 mg/dL (70-99) Calcium Level 7.8 mg/dL (8.5-10.1) Phosphorus Level 7.4 mg/dL (2.6-4.7) Total Bilirubin 0.4 mg/dL (0.2-1.0) Aspartate Amino Transf (AST/SGOT) 22 U/L (15-37) Alanine Aminotransferase (ALT/SGPT) 22 U/L (14-59) Alkaline Phosphatase 68 U/L (46-116) Total Protein 5.4 g/dL (6.4-8.2) Albumin 3.2 g/dL (3.4-5.0) Albumin/Globulin Ratio 1.5 (1.0-1.7) Glucose (Fingerstick) 75 mg/dL (70-99) Images Images EXAM: XR CHEST 1V 01/16/2021 8:56 AM CLINICAL INDICATION: Altered mental status COMPARISON: Chest radiograph 01/08/2018 TECHNIQUE: AP view of the chest FINDINGS: The patient is rotated to the right. The right IJ catheter has been removed. There are changes median sternotomy. Mild cardiomegaly. There is indistinct pulmonary vascularity suspicious for congestion. No consolidation, pleural effusion or pneumothorax. No acute osseous abnormality. IMPRESSION: Cardiomegaly and mild pulmonary vascular congestion. CT HEAD/BRAIN WO History: Reason: altered mental status / Spl. Instructions: / History: Comparison: December 25, 2017 Technique: Noncontrast CT imaging was performed of the head. Exposure: One or more of the following individualized dose reduction techniques were utilized for this examination: 1. Automated exposure control 2. Adjustment of the mA and/or kV according to patient size 3. Use of iterative reconstruction technique. Findings: No intracranial hemorrhage. No mass effect. No hydrocephalus. Moderate multifocal foci of decreased attenuation within the hemispheric white matter, progressed compared to prior. Chronic right basal ganglia and bilateral thalamic lacunar infarcts. Imaged orbits are unremarkable. Imaged paranasal sinuses and mastoid air cells are clear. No acute calvarial fracture. Impression: 1. No acute intracranial hemorrhage. 2. Moderate nonspecific white matter changes, most often due to chronic microvascular ischemia. Differential considerations include demyelinating disease or vasculitis. Overall findings are progressed compared to 2018. If persistent clinical concern for acute ischemia, MRI can better evaluate. 3. Chronic right basal ganglia and bilateral thalamic lacunar infarcts. Assessment/Plan Assessment/Plan IMP ESRD HTN EMERGENCY ENCEPHALOPATHY DUE TO ABOVE ANEMIA FLUID OVERLOAD ACUTE ON CHRONIC DIASTOLIC CHF FEVER CAD WITH CABG AVF-BLEEDING - MOST LIKELY DUE TO LACERATION WITH NEEDLE DUE TO MOVEMENT-OUTFLOW STENOSIS POSSIBLE-HEMOSTASIS ACHIEVED PROB NON COMPLIANCE PLAN CARDENE GTT HD MWF EDGAR WHEN APPROPRIATE RESUME HOME MEDS RENAL DIET ENC COMPLIANCE WILL NEED AVF ANGIOGRAM AT SOMEPOINT - CAN BE DONE OP MAY NEED NEURO EVAL IF CONFUSION NOT BETTER WITH BP CONTROL NO OBVIOUS SIGNS OF INFECTION-FEVER HAS RESOLVED AT THIS POINT HAVE DISCUSSED CASE WITH DR DANG WILL FOLLOW TING REYNA MD Jan 17, 2021 10:59
--- NOTE | 2021-01-17 12:55 | PDOC2 ---
DAVID DELGADO GEOPHYSICAL PROSPECTING SURVEYOR 01/17/21 1255: CARDIAC CONSULT DATE OF CONSULT Date of Consult DATE: 01/17/21 TIME: 12:24 REASON FOR CONSULT Reason for Consult: HTN crisis REFERRING PHYSICIAN Referring Physician: Hernandez SOURCE Source: Chart review, Patient HISTORY OF PRESENT ILLNESS HISTORY OF PRESENT ILLNESS This is a 60 yo female admitted for altered mental status. Apparently she was confuse and was agitated caught screaming. She was at the dialysis center when this happened. Her SBP was also noted at 240. No noted complains of chest pain but with back pain. She was also noted with fever of 103. Further testing noted that she has covid-19 and was vaccinated in August. Denies any chest pain or SOA. Could not really remember how she ended up to hospital but currently AOX3. Denies any palpitations. Presently not in any distress and no coughing. PAST MEDICAL HISTORY Past Medical History Cardiovascular: CAD, CHF, HTN, Hyperlipidemia, pulmonary HTN Pulmonary: Asthma, Pneumonia CENTRAL NERVOUS SYSTEM: CVA, Other (Headaches) GI: Constipation,, GERD, PUD Heme/Onc: Anemia NOS Psych: Anxiety Renal/: Chronic renal failure (Dialysis) Endocrine: Diabetes PAST SURGICAL HISTORY Past Surgical History Cholecystectomy, CABG @ [facility] , Hysterectomy, Other (aortoceliac bypass), LAV dialysis shunt FAMILY HISTORY Family History: Heart Disease SOCIAL HISTORY Smoke: Quit ALCOHOL: none Drugs: None CURRENT MEDICATIONS CURRENT MEDICATIONS Current Medications Medications (Trade) Dose Ordered Sig/Srinath Route PRN Reason Start Time Stop Time Status Last Admin Dose Admin Lorazepam (Ativan Inj) 1 mg PRN Q4HRS PRN IVP ANXIETY / AGITATION 01/16/21 12:45 01/16/21 12:42 Hydralazine HCl (Apresoline Inj) 20 mg PRN Q4HRS PRN IVP ELEVATED BP, SEE COMMENTS 01/16/21 13:00 01/16/21 13:30 Nicardipine HCl 50 mg/Sodium Chloride 250 ml @ 25 mls/hr CONT PRN IV SEE I/O RECORD 01/16/21 14:00 01/17/21 04:25 ALLERGIES ALLERGIES: Coded Allergies: amitriptyline (Verified Allergy, Intermediate, 11/09/16) hydromorphone (Verified Allergy, Intermediate, LORTAB OK AT HOME, 05/05/17) lisinopril (Verified Allergy, Intermediate, 11/09/16) metformin (Verified Allergy, Intermediate, 11/09/16) I S O L A T I O N *CONTACT* (Verified Allergy, Unknown, 11/09/16) mrsa ROS Review of System 14 point ROS evaluated with pertinent positives noted per HPI PHYSICAL EXAM General: Alert, Oriented X3, Cooperative, No acute distress HEENT: Atraumatic, Mucous membr. moist/pink Lungs: Other (diminished bases) Heart: Regular rate (SR), Normal S1, Normal S2, Other (3/6 systolic murmur to RAYMOND border) Abdomen: Soft, No tenderness Extremities: No cyanosis, No edema Skin: No breakdown, No significant lesion Neuro: Normal speech, Sensation intact Psych/Mental Status: Mood NL MUSCULOSKELETAL: Osteoarthritic changes both hands VITALS/I&O VITALS/I&O: Vital Signs Date Time Temp Pulse Resp B/P (MAP) Pulse Ox O2 Delivery O2 Flow Rate FiO2 01/17/21 07:47 66 133/58 (83) 01/17/21 06:39 98.0 19 99 Nasal Cannula 2.0 98.0 I & O 01/16/21 01/16/21 01/17/21 15:00 23:00 07:00 Intake Total 250 ml Balance 250 ml LABS Lab: Laboratory Tests Test 01/16/21 14:35 01/17/21 04:30 01/17/21 07:44 01/17/21 11:54 Troponin I Quantitative 0.091 ng/mL (0.000-0.055) 1.017 ng/mL (0.000-0.055) White Blood Count 5.1 x10^3/uL (4.0-11.0) Red Blood Count 3.00 x10^6/uL (3.50-5.40) L Hemoglobin 9.5 g/dL (12.0-15.5) L Hematocrit 28.4 % (36.0-47.0) L Mean Corpuscular Volume 95 fL (79-100) Mean Corpuscular Hemoglobin 32 pg (25-35) Mean Corpuscular Hemoglobin Concent 33 g/dL (31-37) Red Cell Distribution Width 16.6 % (11.5-14.5) H Platelet Count 155 x10^3/uL (140-400) Neutrophils (%) (Auto) 76 % (31-73) H Lymphocytes (%) (Auto) 15 % (24-48) L Monocytes (%) (Auto) 7 % (0-9) Eosinophils (%) (Auto) 1 % (0-3) Basophils (%) (Auto) 1 % (0-3) Neutrophils # (Auto) 3.9 x10^3/uL (1.8-7.7) Lymphocytes # (Auto) 0.8 x10^3/uL (1.0-4.8) L Monocytes # (Auto) 0.3 x10^3/uL (0.0-1.1) Eosinophils # (Auto) 0.1 x10^3/uL (0.0-0.7) Basophils # (Auto) 0.0 x10^3/uL (0.0-0.2) Sodium Level 141 mmol/L (136-145) Potassium Level 4.8 mmol/L (3.5-5.1) # Chloride Level 103 mmol/L (98-107) Carbon Dioxide Level 29 mmol/L (21-32) Anion Gap 9 (6-14) Blood Urea Nitrogen 54 mg/dL (7-20) H Creatinine 7.6 mg/dL (0.6-1.0) H Estimated GFR (Cockcroft-Gault) 6.6 BUN/Creatinine Ratio 7 (6-20) Glucose Level 72 mg/dL (70-99) Calcium Level 7.8 mg/dL (8.5-10.1) L Phosphorus Level 7.4 mg/dL (2.6-4.7) H Total Bilirubin 0.4 mg/dL (0.2-1.0) Aspartate Amino Transferase (AST) 22 U/L (15-37) Alanine Aminotransferase (ALT) 22 U/L (14-59) Alkaline Phosphatase 68 U/L (46-116) Total Protein 5.4 g/dL (6.4-8.2) L Albumin 3.2 g/dL (3.4-5.0) L Albumin/Globulin Ratio 1.5 (1.0-1.7) Glucose (Fingerstick) 75 mg/dL (70-99) 90 mg/dL (70-99) Laboratory Tests 01/17/21 04:30 Laboratory Tests 01/17/21 04:30 STRESS TEST STRESS TEST Conclusion 1. Regadenoson cardioisotope stress test showed [id number] inferolateral wall infarction with small amount of rehana-infarct ischemia. 2. Normal left ventricular systolic function with ejection fraction calculated at 56%. 3. Low risk for cardiac events. DATE: 09/03/17 1244 HEART CATH HEART CATH Conclusion 1. Chronic total occlusion involving the right coronary artery with distal reconstitution from left to right collaterals. Nonobstructive disease in other coronary arteries as described above. 2. Diaphragmatic wall hypokinesis with ejection fraction estimated at 50-55%. Recommendations Optimization of medical therapy If patient is symptomatic and significant ischemia can be demonstrated on stress test, we will consider PCI to CHANGE LEAD RCA. DATE: 07/13/17 1057 ASSESSMENT/PLAN ASSESSMENT/PLAN 1. Accelerated HTN: better controlled with cardene 2. Hypertensive encephalopathy: mentation back to baseline 3. +Covid-19 with fever: T max 103. Vaccinated in 08/2020 4. NSTEMI: Peaked at 1, no acute EKG changes and no cardiac symptoms. suspect demand mediated with culprits above 5. Prolonged QTc: 517 6. Acute on chronic diastolic CHF: clinically compensated 7. CAD with previous CABG 12/01/2017-AWAN to LAD; SVG to OM2; SVG to RPDA; EVH 8. ESRD with HD 9. DM, II 10. Pulmonary HTN Recommendations 1. DC cardene and start home BP regimen. Will add norvasc if needed 2. ASA/plavix. Secondary prevention measures 3. fluid off loading per HD 4. I tried to contact family member via phone but no answer, will need to verify follows with any wealth management director. she was seen in our office in [address] Parmar. Will consider for outpt TTE and MPI LOLA RAJPUT MD 01/17/21 1342: CARDIAC CONSULT ASSESSMENT/PLAN ASSESSMENT/PLAN Pt. seen and examined. Agree with above OPHTHALMIC AIDE note. Supportive care. DAVID DELGADO GEOPHYSICAL PROSPECTING SURVEYOR Jan 17, 2021 12:55 LOLA RAJPUT MD Jan 17, 2021 13:42
[2021-01-17] MEDS: ISOSORBIDE MONONITRATE ER 30 MG TAB.ER.24H PO SCH (13:38)
[2021-01-17] MEDS: EZETIMIBE 10 MG TABLET. PO SCH (13:38)
[2021-01-17] MEDS: CLOPIDOGREL BISULFATE 75 MG TABLET PO SCH (13:38)
[2021-01-17] MEDS: ASPIRIN ENTERIC COATED 81 MG TABLET.DR. PO SCH (13:39)
--- NOTE | 2021-01-17 14:50 | NUR ---
SS following for discharge planning. SS reviewed pt chart and discussed with pt RN. Pt is from home and is currently on room air. Cardiology, Nephrology, and Neurology consulted. COVID19 negative. SS will continue to follow for discharge planning. Addendum: 01/17/21 at 1500 by TORREY MCKEON SS CORRECTION to Previous Note: Pt rapid test was negative for COVID19. Pt PCR positive for COVID19. Pt had COVID19 in August of 2019 per dialysis clinic. Pt had been vaccinated with Pfizer vaccines at [facility], ; fax [phone], on 09/12/2020 and 10/03/2020. Pt has outpatient hemodialysis on Wednesday, , and Wednesday at [facility]. Per dialysis clinic pt would need to transfer to [facility] due to positive COVID test. Carol, , at [facility] will arrange transfer. Pt can return for services at [facility] 01/28/2021.
[2021-01-17] MEDS: CARVEDILOL 12.5 MG TABLET. PO SCH (19:42)
[2021-01-17] MEDS: cloNIDine HCL 0.2 MG TABLET PO SCH (21:08)
[2021-01-17] MEDS: ATORVASTATIN CALCIUM 40 MG TABLET. PO SCH (21:09)
[2021-01-17] MEDS: MINOXIDIL 2.5 MG TABLET PO SCH (21:09)
[2021-01-17] MEDS: ACETAMINOPHEN 325 MG TABLET. PO PRN (21:10)
[2021-01-18] MEDS: HYDROcodone/APAP 7.5/325MG 1 TAB TABLET PO PRN ×3 (03:22→20:46)
[2021-01-18 03:45] VITALS: BP 149/72
[2021-01-18 06:41] LABS: BASO % 1 % (0-3); EOS # 0.2 x10^3/uL (0.0-0.7); EOS % 2 % (0-3); HEMATOCRIT 27.9 % (36.0-47.0); HEMOGLOBIN 9.2 g/dL (12.0-15.5); LYMPH # 0.6 x10^3/uL (1.0-4.8); LYMPH % 9 % (24-48); MEAN CORPUSCULAR HEMOGLOBIN 32 pg (25-35); MEAN CORPUSCULAR HGB CONC 33 g/dL (31-37); MEAN CORPUSCULAR VOLUME 96 fL (79-100); MONO # 0.5 x10^3/uL (0.0-1.1); MONO % 7 % (0-9); NEUT # 5.6 x10^3/uL (1.8-7.7); NEUT % 81 % (31-73); PLATELET COUNT 160 x10^3/uL (140-400); RED BLOOD COUNT 2.91 x10^6/uL (3.50-5.40); RED CELL DISTRIBUTION WIDTH 17.3 % (11.5-14.5); WHITE BLOOD COUNT 6.9 x10^3/uL (4.0-11.0)
[2021-01-18 06:45] LABS: CALCIUM 8.3 mg/dL (8.5-10.1); CREATININE 9.7 mg/dL (0.6-1.0); POTASSIUM 5.5 mmol/L (3.5-5.1)
[2021-01-18 07:18] VITALS: BP 184/79
[2021-01-18] MEDS: INSULIN LISPRO 300 UNITS/3 ML VIAL. SQ SCH ×3 (07:55→17:00)
[2021-01-18] MEDS: ACETAMINOPHEN 325 MG TABLET. PO PRN ×2 (08:35→17:34)
[2021-01-18] MEDS: CARVEDILOL 12.5 MG TABLET. PO SCH ×2 (08:36→17:34)
[2021-01-18] MEDS: ASPIRIN ENTERIC COATED 81 MG TABLET.DR. PO SCH (08:36)
[2021-01-18] MEDS: CLOPIDOGREL BISULFATE 75 MG TABLET PO SCH (08:36)
[2021-01-18] MEDS: ISOSORBIDE MONONITRATE ER 30 MG TAB.ER.24H PO SCH (08:36)
[2021-01-18] MEDS: EZETIMIBE 10 MG TABLET. PO SCH (08:36)
[2021-01-18] MEDS: cloNIDine HCL 0.2 MG TABLET PO SCH ×2 (08:36→20:45)
[2021-01-18] MEDS: MINOXIDIL 2.5 MG TABLET PO SCH ×2 (08:37→20:44)
--- NOTE | 2021-01-18 09:41 | PDOC ---
IM PROGRESS NOTES- Subjective Subjective No complaints of pain or dyspnea. Objective Vitals/I&O Vital Signs Date Time Temp Pulse Resp B/P (MAP) Pulse Ox O2 Delivery O2 Flow Rate FiO2 01/18/21 08:37 73 184/79 01/18/21 07:18 98.0 17 100 Room Air 98.0 I & O 01/17/21 01/17/21 01/18/21 15:00 23:00 07:00 Intake Total 50 ml Output Total 0 ml Balance 50 ml 0 ml Physical Exam Physical Exam General Appearance - alert and in no distress Chest - decreased breath sounds at bases Heart - S1 and S2 normal Abdomen - soft, non tender Neurological - alert and oriented Musculoskeletal - generalized weakness Extremities - no edema Labs Laboratory Tests Test 01/17/21 11:54 01/17/21 20:00 01/18/21 03:50 01/18/21 07:39 Glucose (Fingerstick) 90 mg/dL (70-99) 105 mg/dL (70-99) H 127 mg/dL (70-99) H White Blood Count 6.9 x10^3/uL (4.0-11.0) Red Blood Count 2.91 x10^6/uL (3.50-5.40) L Hemoglobin 9.2 g/dL (12.0-15.5) L Hematocrit 27.9 % (36.0-47.0) L Mean Corpuscular Volume 96 fL (79-100) Mean Corpuscular Hemoglobin 32 pg (25-35) Mean Corpuscular Hemoglobin Concent 33 g/dL (31-37) Red Cell Distribution Width 17.3 % (11.5-14.5) H Platelet Count 160 x10^3/uL (140-400) Neutrophils (%) (Auto) 81 % (31-73) H Lymphocytes (%) (Auto) 9 % (24-48) L Monocytes (%) (Auto) 7 % (0-9) Eosinophils (%) (Auto) 2 % (0-3) Basophils (%) (Auto) 1 % (0-3) Neutrophils # (Auto) 5.6 x10^3/uL (1.8-7.7) Lymphocytes # (Auto) 0.6 x10^3/uL (1.0-4.8) L Monocytes # (Auto) 0.5 x10^3/uL (0.0-1.1) Eosinophils # (Auto) 0.2 x10^3/uL (0.0-0.7) Basophils # (Auto) 0.0 x10^3/uL (0.0-0.2) Sodium Level 138 mmol/L (136-145) Potassium Level 5.5 mmol/L (3.5-5.1) H Chloride Level 101 mmol/L (98-107) Carbon Dioxide Level 26 mmol/L (21-32) Anion Gap 11 (6-14) Blood Urea Nitrogen 79 mg/dL (7-20) H Creatinine 9.7 mg/dL (0.6-1.0) H Estimated GFR (Cockcroft-Gault) 5.0 Glucose Level 104 mg/dL (70-99) H Calcium Level 8.3 mg/dL (8.5-10.1) L Laboratory Tests 01/18/21 03:50 Laboratory Tests 01/18/21 03:50 Meds Current Medications Medications (Trade) Dose Ordered Sig/Srinath Route PRN Reason Start Time Stop Time Status Last Admin Dose Admin Aspirin (Ecotrin) 81 mg DAILY PO 01/17/21 13:00 01/18/21 08:36 Atorvastatin Calcium (Lipitor) 80 mg HS PO 01/17/21 21:00 01/17/21 21:09 Carvedilol (Coreg) 12.5 mg BIDWMEALS PO 01/17/21 17:00 01/18/21 08:36 Clonidine HCl (Catapres) 0.2 mg BID PO 01/17/21 21:00 01/18/21 08:36 Clopidogrel Bisulfate (Plavix) 75 mg DAILY PO 01/17/21 13:00 01/18/21 08:36 EZETIMIBE (Zetia) 10 mg DAILY PO 01/17/21 13:00 01/18/21 08:36 Hydralazine HCl (Apresoline) 50 mg TID PO 01/17/21 14:00 01/18/21 08:35 Isosorbide Mononitrate (Imdur) 120 mg DAILY PO 01/17/21 13:00 01/18/21 08:36 Minoxidil (Loniten) 2.5 mg BID PO 01/17/21 21:00 01/18/21 08:37 Acetaminophen (Tylenol) 650 mg PRN Q6HRS PRN PO MILD PAIN / TEMP > 100.3'F 01/17/21 20:45 01/18/21 08:35 Acetaminophen/ Hydrocodone Bitart (Lortab 7.5/325) 1 tab PRN Q6HRS PRN PO MODERATE-SEVERE PAIN 01/17/21 20:45 01/18/21 03:22 Assessment Assessment 1. Acute metabolic encephalopathy, etiology not clear. The patient has had similar episodes in the past. This may be due to acute hypertensive crisis. 2. Acute hypertensive crisis. This may be also contributing to the acute metabolic encephalopathy. 3. End-stage renal disease on hemodialysis. 4. Anemia. 5. Coronary artery disease. 6. Diastolic congestive heart failure. 7. Fever: The patient had fever of 103. This may be due to her agitation, but sepsis needs to be ruled out. Lactic acid level is normal. 8. 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 9. 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 10. Physical deconditioning. 11. Status post coronary artery bypass grafting. 12. Peripheral artery disease. 13. COVID-19 infection. Rapid antigen test was negative but PCR is positive. Patient spiked fever once. PLAN: 1. Acute metabolic encephalopathy. Continue to give her lorazepam as needed. Monitor closely in the Intensive Care Unit. Consult Dr. Martinez for neurology evaluation and management. Likely due to hypertensive crisis.Mental status is improving. 2. Acute hypertensive crisis. The patient is responding to Cardene drip. Consult Dr. Leahy for cardiology evaluation and management. 3. Elevated troponin. This may be due to demand ischemia and also end-stage renal disease may be contributing. 4. End-stage renal disease, on hemodialysis. 5. Coronary artery disease. 6. Diastolic congestive heart failure. 7. Physical deconditioning. 8. Asthma. 9. Gastroesophageal reflux disease. 10. Hyperlipidemia. 11. Severe pulmonary hypertension. 12. 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 13. History of depression. 14. 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 Monitor blood sugar. 15. History of secondary hyperparathyroidism. Consult Dr. Hernandez for management of end-stage renal disease and hemodialysis. Condition treatment discussed with the patient's brother at bedside in the Emergency Room. Prognosis of this patient is extremely poor due to her multiple medical problems. I will also consult Dr. Ray Nino for Infectious Disease evaluation and management because of her fever of 103 degrees Fahrenheit. Her chest x-ray, urinalysis as well as SARS-CoV-2 antigen test is negative. As patient remained stable patient was admitted to CVC unit. Blood pressure is elevated. Patient is off Cardene drip.. Patient remains afebrile. Labs reviewed. As needed IV hydralazine. Patient is also going to have dialysis today. COVID-19 infection. SARS-CoV-2 PCR test is positive. Consult Dr. Nino for infectious disease evaluation and management. Plan Plan For more details regarding further plans, please refer to the orders. Justifications for Admission Other Justification GAURAV DANG MD Jan 18, 2021 09:41
--- NOTE | 2021-01-18 10:49 | PDOC ---
Renal-Progress Notes Subjective Notes Notes STILL CONFUSED History of Present Illness Hx of present illness NO ACUTE CHANGES Vitals Vitals Vital Signs Date Time Temp Pulse Resp B/P (MAP) Pulse Ox O2 Delivery O2 Flow Rate FiO2 01/18/21 08:37 73 184/79 01/18/21 08:00 Room Air 01/18/21 07:18 98.0 17 100 98.0 Weight Weight [ ] I.O. Intake and Output Intake and Output 01/18/21 07:00 Intake Total 50 ml Output Total 0 ml Balance 50 ml Intake Oral 50 ml Output Urine Total 0 ml # Voids 4 Labs Labs Laboratory Tests Test 01/17/21 11:54 01/17/21 20:00 01/18/21 03:50 01/18/21 07:39 Glucose (Fingerstick) 90 mg/dL (70-99) 105 mg/dL (70-99) 127 mg/dL (70-99) White Blood Count 6.9 x10^3/uL (4.0-11.0) Red Blood Count 2.91 x10^6/uL (3.50-5.40) Hemoglobin 9.2 g/dL (12.0-15.5) Hematocrit 27.9 % (36.0-47.0) Mean Corpuscular Volume 96 fL (79-100) Mean Corpuscular Hemoglobin 32 pg (25-35) Mean Corpuscular Hemoglobin Concent 33 g/dL (31-37) Red Cell Distribution Width 17.3 % (11.5-14.5) Platelet Count 160 x10^3/uL (140-400) Neutrophils (%) (Auto) 81 % (31-73) Lymphocytes (%) (Auto) 9 % (24-48) Monocytes (%) (Auto) 7 % (0-9) Eosinophils (%) (Auto) 2 % (0-3) Basophils (%) (Auto) 1 % (0-3) Neutrophils # (Auto) 5.6 x10^3/uL (1.8-7.7) Lymphocytes # (Auto) 0.6 x10^3/uL (1.0-4.8) Monocytes # (Auto) 0.5 x10^3/uL (0.0-1.1) Eosinophils # (Auto) 0.2 x10^3/uL (0.0-0.7) Basophils # (Auto) 0.0 x10^3/uL (0.0-0.2) Sodium Level 138 mmol/L (136-145) Potassium Level 5.5 mmol/L (3.5-5.1) Chloride Level 101 mmol/L (98-107) Carbon Dioxide Level 26 mmol/L (21-32) Anion Gap 11 (6-14) Blood Urea Nitrogen 79 mg/dL (7-20) Creatinine 9.7 mg/dL (0.6-1.0) Estimated GFR (Cockcroft-Gault) 5.0 Glucose Level 104 mg/dL (70-99) Calcium Level 8.3 mg/dL (8.5-10.1) Review of Systems Constitutional: yes: other (CONFUSED) Physical Exam General Appearance: no apparent distress Skin: warm Respiratory: bilateral CTA Heart: S1S2 Abdomen: soft, bowel sounds present Genitourinary: bladder flat Extremities: pulses present Musculoskeletal: Osteoarthritis Assessment Assessment IMP COVID 19 POS [id number] ARM BC AVF HTN EMERGENCY-BETTER ENCEPHALOPATHY DUE TO ABOVE ANEMIA FLUID OVERLOAD ACUTE ON CHRONIC DIASTOLIC CHF FEVER CAD WITH CABG AVF-BLEEDING - MOST LIKELY DUE TO LACERATION WITH NEEDLE DUE TO MOVEMENT-OUTFLOW STENOSIS POSSIBLE-HEMOSTASIS ACHIEVED PROB NON COMPLIANCE PLAN CARDENE GTT EDGAR WHEN APPROPRIATE CONT HOME MEDS RENAL DIET ENC COMPLIANCE WILL NEED AVF ANGIOGRAM AT SOMEPOINT - CAN BE DONE OP MAY NEED NEURO EVAL IF CONFUSION NOT BETTER WITH BP CONTROL ID EVAL AND TX HD TODAY UF TO TW EXPECT BP TO IMPROVE WITH UF HAVE DISCUSSED CASE WITH DR DANG WILL FOLLOW TING REYNA MD Jan 18, 2021 10:49
[2021-01-18 11:00] VITALS: BP 115/52
[2021-01-18] MEDS ORDERED: ALBUMIN HUMAN 25% 200 ML IV PRN (11:30)
[2021-01-18] MEDS ORDERED: DIALYSIS PATIENT. MC PRN ×2 (11:30)
[2021-01-18] MEDS ORDERED: IV NORMAL SALINE 1000ML BAG 1,000 ML IV PRN ×2 (11:30)
--- NOTE | 2021-01-18 12:01 | PDOC ---
Infectious Disease Note Vital Sign Vital Signs Vital Signs Date Time Temp Pulse Resp B/P (MAP) Pulse Ox O2 Delivery O2 Flow Rate FiO2 01/18/21 11:00 98.2 59 18 115/52 (73) 96 Room Air 98.2 Labs Lab Laboratory Tests Test 01/17/21 20:00 01/18/21 03:50 01/18/21 07:39 01/18/21 11:03 Glucose (Fingerstick) 105 mg/dL (70-99) 127 mg/dL (70-99) 128 mg/dL (70-99) White Blood Count 6.9 x10^3/uL (4.0-11.0) Red Blood Count 2.91 x10^6/uL (3.50-5.40) Hemoglobin 9.2 g/dL (12.0-15.5) Hematocrit 27.9 % (36.0-47.0) Mean Corpuscular Volume 96 fL (79-100) Mean Corpuscular Hemoglobin 32 pg (25-35) Mean Corpuscular Hemoglobin Concent 33 g/dL (31-37) Red Cell Distribution Width 17.3 % (11.5-14.5) Platelet Count 160 x10^3/uL (140-400) Neutrophils (%) (Auto) 81 % (31-73) Lymphocytes (%) (Auto) 9 % (24-48) Monocytes (%) (Auto) 7 % (0-9) Eosinophils (%) (Auto) 2 % (0-3) Basophils (%) (Auto) 1 % (0-3) Neutrophils # (Auto) 5.6 x10^3/uL (1.8-7.7) Lymphocytes # (Auto) 0.6 x10^3/uL (1.0-4.8) Monocytes # (Auto) 0.5 x10^3/uL (0.0-1.1) Eosinophils # (Auto) 0.2 x10^3/uL (0.0-0.7) Basophils # (Auto) 0.0 x10^3/uL (0.0-0.2) Sodium Level 138 mmol/L (136-145) Potassium Level 5.5 mmol/L (3.5-5.1) Chloride Level 101 mmol/L (98-107) Carbon Dioxide Level 26 mmol/L (21-32) Anion Gap 11 (6-14) Blood Urea Nitrogen 79 mg/dL (7-20) Creatinine 9.7 mg/dL (0.6-1.0) Estimated GFR (Cockcroft-Gault) 5.0 Glucose Level 104 mg/dL (70-99) Calcium Level 8.3 mg/dL (8.5-10.1) Objective Assessment pt seen, consult dictated Plan Plan of Care / ILIANA BA MD Jan 18, 2021 12:01
--- NOTE | 2021-01-18 13:14 | CONS ---
DATE OF CONSULTATION: 01/18/2021 REFERRING PHYSICIAN: Dr. Saravanan Ng. REASON FOR CONSULTATION: COVID-19 positive. HISTORY OF PRESENT ILLNESS: This is a 60-year-old -[place] female with a history of end-stage renal disease, who apparently on dialysis, started having change in mental status. The patient suddenly started screaming and become more combative with thrashing. Blood pressure went up to 240 systolic. Dialysis access came out. She had a lot of bleeding. Ambulance was called. Bleeding was controlled and the patient was transferred. The patient did receive hydralazine, lorazepam, labetalol, etc. The patient was somnolent, later on this morning, she is back to normal. She is alert, awake, in dialysis, getting hemodialysis. She says she is feeling fine. She denies any nausea, vomiting, diarrhea. Denies any chest pain, shortness of breath, abdominal pain, urinary symptoms or bowel symptoms. She is back to her baseline. The patient was found to have COVID-19 positive too. PAST MEDICAL HISTORY: Positive for end-stage renal disease, on hemodialysis, coronary artery disease, hypertension, hyperlipidemia, pulmonary hypertension, asthma, CVA, gastroesophageal reflux disease, gastroparesis, diabetes mellitus, anemia, hep C, neuropathy. PAST SURGICAL HISTORY: He has had cholecystectomy, hysterectomy, ovarian resection and iliac stenosis, aortoiliac bypass and celiac artery decompression. MEDICATIONS: All medications were reviewed. The patient is not on any antibiotics. SOCIAL HISTORY: Negative for smoking, alcohol, drug use. ALLERGIES: LISTED ALLERGIC TO AMITRIPTYLINE, HYDROMORPHONE, LISINOPRIL AND METFORMIN. REVIEW OF SYSTEMS: As per HPI. All other systems reviewed are negative. PHYSICAL EXAMINATION: GENERAL: Alert, oriented female, on dialysis, not in distress. VITAL SIGNS: Stable. Temperature 98.2, pulse 59, respirations 18, blood pressure 115/52. HEENT: Both pupils are round and reacting. No conjunctival lesion, no lesion in the mouth. NECK: Supple, no JVP, no lymphadenopathy. LUNGS: Clear. HEART: S1, S2 regular. ABDOMEN: Soft, nontender, no organomegaly. EXTREMITIES: No edema or cyanosis. SKIN: Unremarkable. NEUROLOGIC: The patient is alert, awake, and appropriate. No focal neurologic deficit. LABORATORY DATA: White count is normal. BUN and creatinine is 79 and 9.7. Her troponin had been 1.01. Lipase 650. CT head unremarkable. Chest x-ray showed pulmonary vascular congestion. COVID-19 is positive. IMPRESSION: 1. COVID-19 positive. The patient is on room air. 2. Encephalopathy with accelerated hypertension, may have been the reason for the encephalopathy. The patient is back to her normal baseline. 3. End-stage renal disease, on hemodialysis. 4. Coronary artery disease. 5. Hypertension. 6. Coronary artery disease. 7. Cerebrovascular accident in the past. RECOMMENDATIONS: Do not see the need for any antibiotics or any antiviral for COVID. The patient is on room air and there is no other fever or any other signs and symptoms of active COVID. The patient needs observation and the patient can be discharged from the infectious disease standpoint of view soon. Thank you very much, Dr. Ng, for giving me opportunity to participate in this patient's care. LESLIE DR: Jay Jay TID: [id number]
[2021-01-18] MEDS: fentaNYL PF VIAL 100 MCG/2 ML VIAL IV PRN ×2 (14:13→14:34)
[2021-01-18 15:00] VITALS: BP 182/88
[2021-01-18 19:30] VITALS: BP 141/54
[2021-01-18] MEDS: ATORVASTATIN CALCIUM 40 MG TABLET. PO SCH (20:45)
[2021-01-18 23:20] VITALS: BP 145/67
[2021-01-19] MEDS: HYDROcodone/APAP 7.5/325MG 1 TAB TABLET PO PRN ×2 (02:19→14:24)
[2021-01-19 03:40] VITALS: BP 156/75
[2021-01-19 07:45] VITALS: BP 141/52
[2021-01-19] MEDS: INSULIN LISPRO 300 UNITS/3 ML VIAL. SQ SCH ×3 (08:00→17:00)
[2021-01-19] MEDS: EZETIMIBE 10 MG TABLET. PO SCH (09:06)
[2021-01-19] MEDS: CARVEDILOL 12.5 MG TABLET. PO SCH ×2 (09:06→17:51)
--- NOTE | 2021-01-19 09:06 | PDOC ---
IM PROGRESS NOTES- Subjective Subjective No complaints of pain or dyspnea. Complaints of nausea. Did not eat breakfast this morning. Discussed with Dr. Hernandez. Patient was quite confused and agitated yesterday during dialysis and she received dialysis for only 1 and half hours as she started getting agitated and thrashing. Objective Vitals/I&O Vital Signs Date Time Temp Pulse Resp B/P (MAP) Pulse Ox O2 Delivery O2 Flow Rate FiO2 01/19/21 07:45 97.4 67 17 141/52 (81) 94 Room Air 97.4 I & O 01/18/21 01/18/21 01/19/21 15:00 23:00 07:00 Intake Total 25 ml Output Total 0 ml 0 ml Balance 25 ml 0 ml 0 ml Physical Exam Physical Exam General Appearance - alert and in no distress Chest - decreased breath sounds at bases Heart - S1 and S2 normal Abdomen - soft, non tender Neurological - alert and forgetful Musculoskeletal - generalized weakness Extremities - no edema Labs Laboratory Tests Test 01/18/21 11:03 01/18/21 16:31 01/18/21 20:53 01/19/21 07:58 Glucose (Fingerstick) 128 mg/dL (70-99) H 100 mg/dL (70-99) H 102 mg/dL (70-99) H 92 mg/dL (70-99) Assessment Assessment 1. Acute metabolic encephalopathy, etiology not clear. The patient has had similar episodes in the past. This may be due to acute hypertensive crisis. 2. Acute hypertensive crisis. This may be also contributing to the acute metabolic encephalopathy. 3. End-stage renal disease on hemodialysis. 4. Anemia. 5. Coronary artery disease. 6. Diastolic congestive heart failure. 7. Fever: The patient had fever of 103. This may be due to her agitation, but sepsis needs to be ruled out. Lactic acid level is normal. 8. 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 9. 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 10. Physical deconditioning. 11. Status post coronary artery bypass grafting. 12. Peripheral artery disease. 13. COVID-19 infection. Rapid antigen test was negative but PCR is positive. Patient spiked fever once. PLAN: 1. Acute metabolic encephalopathy. Continue to give her lorazepam as needed. Monitor closely in the Intensive Care Unit. Consult Dr. Martinez for neurology evaluation and management. Likely due to hypertensive crisis.Mental status is improving. 2. Acute hypertensive crisis. The patient is responding to Cardene drip. Consult Dr. Leahy for cardiology evaluation and management. 3. Elevated troponin. This may be due to demand ischemia and also end-stage renal disease may be contributing. 4. End-stage renal disease, on hemodialysis. 5. Coronary artery disease. 6. Diastolic congestive heart failure. 7. Physical deconditioning. 8. Asthma. 9. Gastroesophageal reflux disease. 10. Hyperlipidemia. 11. Severe pulmonary hypertension. 12. 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 13. History of depression. 14. 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 Monitor blood sugar. 15. History of secondary hyperparathyroidism. Consult Dr. Hernandez for management of end-stage renal disease and hemodialysis. Condition treatment discussed with the patient's brother at bedside in the Emergency Room. Prognosis of this patient is extremely poor due to her multiple medical problems. I will also consult Dr. Ray Nino for Infectious Disease evaluation and management because of her fever of 103 degrees Fahrenheit. Her chest x-ray, urinalysis as well as SARS-CoV-2 antigen test is negative. As patient remained stable patient was admitted to CVC unit. Blood pressure is elevated. Patient is off Cardene drip.. Patient remains afebrile. Blood pressure max was 182/88 yesterday. Labs reviewed. As needed IV hydralazine. The patient received dialysis only for 1-1/2 hours yesterday because she got very agitated, confused and started thrashing. COVID-19 infection. SARS-CoV-2 PCR test is positive. Consult Dr. Nino for infectious disease evaluation and management. No need for antibiotics at this time. Patient is not on oxygen. Discussed with Dr. Hernandez. Continue treatment for acute metabolic encephalopathy. Start Zofran for nausea. Patient is not ready yet but whenever she is ready s he will need to go to a special dialysis unit because she has COVID-19 infection. Plan Plan For more details regarding further plans, please refer to the orders. Justifications for Admission Other Justification GAURAV DANG MD Jan 19, 2021 09:05
[2021-01-19] MEDS: MINOXIDIL 2.5 MG TABLET PO SCH ×2 (09:07→20:31)
[2021-01-19] MEDS: ASPIRIN ENTERIC COATED 81 MG TABLET.DR. PO SCH (09:08)
[2021-01-19] MEDS: cloNIDine HCL 0.2 MG TABLET PO SCH ×2 (09:08→20:32)
[2021-01-19] MEDS: ISOSORBIDE MONONITRATE ER 30 MG TAB.ER.24H PO SCH (09:08)
[2021-01-19] MEDS: CLOPIDOGREL BISULFATE 75 MG TABLET PO SCH (09:09)
[2021-01-19] MEDS: ONDANSETRON ODT 4 MG TAB.RAPDIS. PO PRN ×2 (10:14→16:17)
--- NOTE | 2021-01-19 10:48 | PDOC ---
Renal-Progress Notes Subjective Notes Notes NO NEW COMPLAINTS, STILL CONFUSED History of Present Illness Hx of present illness STABLE Vitals Vitals Vital Signs Date Time Temp Pulse Resp B/P (MAP) Pulse Ox O2 Delivery O2 Flow Rate FiO2 01/19/21 09:08 67 141/52 01/19/21 08:00 Room Air 2.0 01/19/21 07:45 97.4 17 94 97.4 Weight Weight [ ] I.O. Intake and Output Intake and Output 01/19/21 07:00 Intake Total 25 ml Output Total 0 ml Balance 25 ml Intake Oral 25 ml Output Urine Total 0 ml Labs Labs Laboratory Tests Test 01/18/21 11:03 01/18/21 16:31 01/18/21 20:53 01/19/21 07:58 Glucose (Fingerstick) 128 mg/dL (70-99) 100 mg/dL (70-99) 102 mg/dL (70-99) 92 mg/dL (70-99) Review of Systems Constitutional: yes: other (CONFUSED) Physical Exam General Appearance: no apparent distress Skin: warm Respiratory: bilateral CTA Heart: S1S2 Abdomen: soft, bowel sounds present Genitourinary: bladder flat Extremities: pulses present Musculoskeletal: Osteoarthritis Assessment Assessment IMP COVID 19 POS [id number] ARM BC AVF HTN EMERGENCY-BETTER ENCEPHALOPATHY DUE TO ABOVE ANEMIA FLUID OVERLOAD ACUTE ON CHRONIC DIASTOLIC CHF FEVER CAD WITH CABG AVF-BLEEDING - MOST LIKELY DUE TO LACERATION WITH NEEDLE DUE TO MOVEMENT-OUTFLOW STENOSIS POSSIBLE-HEMOSTASIS ACHIEVED PROB NON COMPLIANCE PLAN EDGAR ON HOLD CONT HOME MEDS RENAL DIET ENC COMPLIANCE WILL NEED AVF ANGIOGRAM AT SOMEPOINT - CAN BE DONE OP MAY NEED NEURO EVAL IF CONFUSION NOT BETTER WITH BP CONTROL ID EVAL AND TX HD TTS HAVE DISCUSSED CASE WITH DR DANG SW WILL NEED TO COORDINATE WITH [employer] ABOUT COHORTING HER WILL FOLLOW TING REYNA MD Jan 19, 2021 10:48
[2021-01-19 11:00] VITALS: BP 107/46
[2021-01-19 13:00] LABS: BASO % 1 % (0-3); EOS # 0.1 x10^3/uL (0.0-0.7); EOS % 2 % (0-3); HEMATOCRIT 27.9 % (36.0-47.0); HEMOGLOBIN 9.3 g/dL (12.0-15.5); LYMPH # 0.6 x10^3/uL (1.0-4.8); LYMPH % 14 % (24-48); MEAN CORPUSCULAR HEMOGLOBIN 32 pg (25-35); MEAN CORPUSCULAR HGB CONC 33 g/dL (31-37); MEAN CORPUSCULAR VOLUME 95 fL (79-100); MONO # 0.3 x10^3/uL (0.0-1.1); MONO % 7 % (0-9); NEUT # 3.1 x10^3/uL (1.8-7.7); NEUT % 76 % (31-73); PLATELET COUNT 138 x10^3/uL (140-400); RED BLOOD COUNT 2.94 x10^6/uL (3.50-5.40); RED CELL DISTRIBUTION WIDTH 17.2 % (11.5-14.5); WHITE BLOOD COUNT 4.1 x10^3/uL (4.0-11.0)
[2021-01-19 13:15] LABS: CALCIUM 8.8 mg/dL (8.5-10.1); CREATININE 8.6 mg/dL (0.6-1.0); GFR 5.8; POTASSIUM 4.6 mmol/L (3.5-5.1)
--- NOTE | 2021-01-19 14:41 | PDOC ---
Infectious Disease Note Subjective: Subjective Pt denies any complaints, still remains intermittently confused Vital Signs: Vital Signs Vital Signs Date Time Temp Pulse Resp B/P (MAP) Pulse Ox O2 Delivery O2 Flow Rate FiO2 01/19/21 14:24 20 97 Room Air 2.0 01/19/21 14:24 65 107/46 01/19/21 11:00 97.3 97.3 Physical Exam: PHYSICAL EXAM GEN: Alert, awake,in nad HEENT: Both pupils are round and reacting. No conjunctival lesion, no lesion in the mouth. NECK: Supple, no JVP, no lymphadenopathy. LUNGS: Clear. HEART: S1, S2 regular. ABDOMEN: Soft, nontender, no organomegaly. EXTREMITIES: No edema or cyanosis. SKIN: Unremarkable. NEUROLOGIC: The patient is alert, awake, and appropriate. No focal neurologic deficit. Medications: Inpatient Meds: Medications reviewed. Labs: Lab Laboratory Tests Test 01/18/21 16:31 01/18/21 20:53 01/19/21 07:58 01/19/21 12:12 Glucose (Fingerstick) 100 mg/dL (70-99) 102 mg/dL (70-99) 92 mg/dL (70-99) 88 mg/dL (70-99) Test 01/19/21 12:40 White Blood Count 4.1 x10^3/uL (4.0-11.0) Red Blood Count 2.94 x10^6/uL (3.50-5.40) Hemoglobin 9.3 g/dL (12.0-15.5) Hematocrit 27.9 % (36.0-47.0) Mean Corpuscular Volume 95 fL (79-100) Mean Corpuscular Hemoglobin 32 pg (25-35) Mean Corpuscular Hemoglobin Concent 33 g/dL (31-37) Red Cell Distribution Width 17.2 % (11.5-14.5) Platelet Count 138 x10^3/uL (140-400) Neutrophils (%) (Auto) 76 % (31-73) Lymphocytes (%) (Auto) 14 % (24-48) Monocytes (%) (Auto) 7 % (0-9) Eosinophils (%) (Auto) 2 % (0-3) Basophils (%) (Auto) 1 % (0-3) Neutrophils # (Auto) 3.1 x10^3/uL (1.8-7.7) Lymphocytes # (Auto) 0.6 x10^3/uL (1.0-4.8) Monocytes # (Auto) 0.3 x10^3/uL (0.0-1.1) Eosinophils # (Auto) 0.1 x10^3/uL (0.0-0.7) Basophils # (Auto) 0.0 x10^3/uL (0.0-0.2) Sodium Level 134 mmol/L (136-145) Potassium Level 4.6 mmol/L (3.5-5.1) Chloride Level 99 mmol/L (98-107) Carbon Dioxide Level 26 mmol/L (21-32) Anion Gap 9 (6-14) Blood Urea Nitrogen 60 mg/dL (7-20) Creatinine 8.6 mg/dL (0.6-1.0) Estimated GFR (Cockcroft-Gault) 5.8 Glucose Level 91 mg/dL (70-99) Calcium Level 8.8 mg/dL (8.5-10.1) Objective: Assessment: 1. COVID-19 positive. ] 2. Encephalopathy with accelerated hypertension, may have been the reason for the encephalopathy. The patient is back to her normal baseline. 3. End-stage renal disease, on hemodialysis. 4. Coronary artery disease. 5. Hypertension. 6. Coronary artery disease. 7. Cerebrovascular accident in the past. Plan: Plan of Care cont supportive care monitor labs Will sign off,call if any questions d/w HERMANN NICHOLSON MD Jan 19, 2021 14:41
[2021-01-19 15:00] VITALS: BP 189/61
[2021-01-19] MEDS: oxyCODONE IR 5 MG TABLET PO PRN (17:53)
[2021-01-19 19:00] VITALS: BP 148/83
[2021-01-19] MEDS: ATORVASTATIN CALCIUM 40 MG TABLET. PO SCH (20:31)
[2021-01-19 23:32] VITALS: BP 113/46
[2021-01-19] MEDS: LORazepam 0.5 MG TABLET PO PRN (23:54)
[2021-01-19] MEDS: SIMETHICONE 80 MG TAB.CHEW PO PRN (23:54)
[2021-01-20] MEDS: oxyCODONE IR 5 MG TABLET PO PRN (01:00)
[2021-01-20 02:42] VITALS: BP 143/47
[2021-01-20 07:00] VITALS: BP 134/56
[2021-01-20] MEDS: INSULIN LISPRO 300 UNITS/3 ML VIAL. SQ SCH ×3 (08:00→17:00)
[2021-01-20 08:28] LABS: ALBUMIN 3.5 g/dL (3.4-5.0); ALBUMIN/GLOBULIN RATIO 1.3 (1.0-1.7); CALCIUM 8.8 mg/dL (8.5-10.1); CREATININE 10.1 mg/dL (0.6-1.0); GFR 4.8; POTASSIUM 5.2 mmol/L (3.5-5.1); TOTAL BILIRUBIN 0.4 mg/dL (0.2-1.0); TOTAL PROTEIN 6.2 g/dL (6.4-8.2)
[2021-01-20 08:52] LABS: BASO % 0 % (0-3); EOS % 0 % (0-3); HEMATOCRIT 27.4 % (36.0-47.0); LYMPH # 0.4 x10^3/uL (1.0-4.8); LYMPH % 6 % (24-48); MEAN CORPUSCULAR HEMOGLOBIN 31 pg (25-35); MEAN CORPUSCULAR HGB CONC 33 g/dL (31-37); MEAN CORPUSCULAR VOLUME 95 fL (79-100); MONO # 0.4 x10^3/uL (0.0-1.1); MONO % 8 % (0-9); NEUT # 5.2 x10^3/uL (1.8-7.7); NEUT % 86 % (31-73); PLATELET COUNT 155 x10^3/uL (140-400); RED BLOOD COUNT 2.89 x10^6/uL (3.50-5.40)
[2021-01-20] MEDS: ASPIRIN ENTERIC COATED 81 MG TABLET.DR. PO SCH (09:05)
[2021-01-20] MEDS: CARVEDILOL 12.5 MG TABLET. PO SCH ×2 (09:06→17:23)
[2021-01-20] MEDS: LORazepam 0.5 MG TABLET PO PRN ×3 (09:06→21:07)
[2021-01-20] MEDS: EZETIMIBE 10 MG TABLET. PO SCH (09:06)
[2021-01-20] MEDS: MINOXIDIL 2.5 MG TABLET PO SCH ×2 (09:06→21:06)
[2021-01-20] MEDS: CLOPIDOGREL BISULFATE 75 MG TABLET PO SCH (09:06)
[2021-01-20] MEDS: HYDROcodone/APAP 7.5/325MG 1 TAB TABLET PO PRN ×3 (09:07→21:07)
[2021-01-20] MEDS: cloNIDine HCL 0.2 MG TABLET PO SCH ×2 (09:07→21:06)
[2021-01-20] MEDS: ISOSORBIDE MONONITRATE ER 30 MG TAB.ER.24H PO SCH (09:08)
--- NOTE | 2021-01-20 09:10 | PDOC ---
IM PROGRESS NOTES- Subjective Subjective complaints of pain,headaches,abdominal pain. Complaints of nausea. Vomits occasionally. Discussed with Dr. Hernandez. Patient was quite confused and agitated yesterday and today. Objective Vitals/I&O Vital Signs Date Time Temp Pulse Resp B/P (MAP) Pulse Ox O2 Delivery O2 Flow Rate FiO2 01/20/21 07:00 96.4 69 20 134/56 (82) 96 Room Air 96.4 01/19/21 18:20 2.0 I & O 01/19/21 01/19/21 01/20/21 15:00 23:00 07:00 Intake Total 200 ml 150 ml 0 ml Balance 200 ml 150 ml 0 ml Physical Exam Physical Exam General Appearance - alert and in no distress Chest - decreased breath sounds at bases Heart - S1 and S2 normal Abdomen - soft, non tender Neurological - alert and oriented Musculoskeletal - generalized weakness Extremities - no edema Labs Laboratory Tests Test 01/19/21 12:12 01/19/21 12:40 01/19/21 17:04 01/19/21 21:05 Glucose (Fingerstick) 88 mg/dL (70-99) 92 mg/dL (70-99) 80 mg/dL (70-99) White Blood Count 4.1 x10^3/uL (4.0-11.0) Red Blood Count 2.94 x10^6/uL (3.50-5.40) L Hemoglobin 9.3 g/dL (12.0-15.5) L Hematocrit 27.9 % (36.0-47.0) L Mean Corpuscular Volume 95 fL (79-100) Mean Corpuscular Hemoglobin 32 pg (25-35) Mean Corpuscular Hemoglobin Concent 33 g/dL (31-37) Red Cell Distribution Width 17.2 % (11.5-14.5) H Platelet Count 138 x10^3/uL (140-400) L Neutrophils (%) (Auto) 76 % (31-73) H Lymphocytes (%) (Auto) 14 % (24-48) L Monocytes (%) (Auto) 7 % (0-9) Eosinophils (%) (Auto) 2 % (0-3) Basophils (%) (Auto) 1 % (0-3) Neutrophils # (Auto) 3.1 x10^3/uL (1.8-7.7) Lymphocytes # (Auto) 0.6 x10^3/uL (1.0-4.8) L Monocytes # (Auto) 0.3 x10^3/uL (0.0-1.1) Eosinophils # (Auto) 0.1 x10^3/uL (0.0-0.7) Basophils # (Auto) 0.0 x10^3/uL (0.0-0.2) Sodium Level 134 mmol/L (136-145) L Potassium Level 4.6 mmol/L (3.5-5.1) Chloride Level 99 mmol/L (98-107) Carbon Dioxide Level 26 mmol/L (21-32) Anion Gap 9 (6-14) Blood Urea Nitrogen 60 mg/dL (7-20) H Creatinine 8.6 mg/dL (0.6-1.0) H Estimated GFR (Cockcroft-Gault) 5.8 Glucose Level 91 mg/dL (70-99) Calcium Level 8.8 mg/dL (8.5-10.1) Test 01/20/21 07:20 01/20/21 07:30 White Blood Count 6.0 x10^3/uL (4.0-11.0) Red Blood Count 2.89 x10^6/uL (3.50-5.40) L Hemoglobin 9.0 g/dL (12.0-15.5) L Hematocrit 27.4 % (36.0-47.0) L Mean Corpuscular Volume 95 fL (79-100) Mean Corpuscular Hemoglobin 31 pg (25-35) Mean Corpuscular Hemoglobin Concent 33 g/dL (31-37) Red Cell Distribution Width 17.0 % (11.5-14.5) H Platelet Count 155 x10^3/uL (140-400) Neutrophils (%) (Auto) 86 % (31-73) H Lymphocytes (%) (Auto) 6 % (24-48) L Monocytes (%) (Auto) 8 % (0-9) Eosinophils (%) (Auto) 0 % (0-3) Basophils (%) (Auto) 0 % (0-3) Neutrophils # (Auto) 5.2 x10^3/uL (1.8-7.7) Lymphocytes # (Auto) 0.4 x10^3/uL (1.0-4.8) L Monocytes # (Auto) 0.4 x10^3/uL (0.0-1.1) Eosinophils # (Auto) 0.0 x10^3/uL (0.0-0.7) Basophils # (Auto) 0.0 x10^3/uL (0.0-0.2) Platelet Estimate Pending Sodium Level 137 mmol/L (136-145) Potassium Level 5.2 mmol/L (3.5-5.1) H Chloride Level 96 mmol/L (98-107) L Carbon Dioxide Level 27 mmol/L (21-32) Anion Gap 14 (6-14) Blood Urea Nitrogen 66 mg/dL (7-20) H Creatinine 10.1 mg/dL (0.6-1.0) H Estimated GFR (Cockcroft-Gault) 4.8 BUN/Creatinine Ratio 7 (6-20) Glucose Level 79 mg/dL (70-99) Calcium Level 8.8 mg/dL (8.5-10.1) Total Bilirubin 0.4 mg/dL (0.2-1.0) Aspartate Amino Transferase (AST) 21 U/L (15-37) Alanine Aminotransferase (ALT) 23 U/L (14-59) Alkaline Phosphatase 74 U/L (46-116) Total Protein 6.2 g/dL (6.4-8.2) L Albumin 3.5 g/dL (3.4-5.0) Albumin/Globulin Ratio 1.3 (1.0-1.7) Glucose (Fingerstick) 79 mg/dL (70-99) Laboratory Tests 01/19/21 12:40 01/20/21 07:20 Laboratory Tests 01/19/21 12:40 01/20/21 07:20 Meds Current Medications Medications (Trade) Dose Ordered Sig/Srinath Route PRN Reason Start Time Stop Time Status Last Admin Dose Admin Ondansetron HCl (Zofran Odt) 4 mg PRN Q6HRS PRN PO NAUSEA/VOMITING 01/19/21 09:30 01/19/21 16:17 Oxycodone HCl (Roxicodone) 10 mg PRN Q4HRS PRN PO PAIN 01/19/21 17:30 01/20/21 01:00 Simethicone (Gas-X) 80 mg PRN TID PRN PO GAS / BLOATING 01/19/21 21:15 01/19/21 23:54 Lorazepam (Ativan) 0.5 mg PRN Q6HRS PRN PO ANXIETY / AGITATION 01/19/21 21:15 01/19/21 23:54 Assessment Assessment 1. Acute metabolic encephalopathy, etiology not clear. The patient has had similar episodes in the past. This may be due to acute hypertensive crisis. 2. Acute hypertensive crisis. This may be also contributing to the acute metabolic encephalopathy. 3. End-stage renal disease on hemodialysis. 4. Anemia. 5. Coronary artery disease. 6. Diastolic congestive heart failure. 7. Fever: The patient had fever of 103. This may be due to her agitation, but sepsis needs to be ruled out. Lactic acid level is normal. 8. 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 9. 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 10. Physical deconditioning. 11. Status post coronary artery bypass grafting. 12. Peripheral artery disease. 13. COVID-19 infection. Rapid antigen test was negative but PCR is positive. Patient spiked fever once. PLAN: 1. Acute metabolic encephalopathy. Continue to give her lorazepam as needed. Monitor closely in the Intensive Care Unit. Consult Dr. Martinez for neurology evaluation and management. Likely due to hypertensive crisis.Mental status is improving. 2. Acute hypertensive crisis. The patient is responding to Cardene drip. Consult Dr. Leahy for cardiology evaluation and management. 3. Elevated troponin. This may be due to demand ischemia and also end-stage renal disease may be contributing. 4. End-stage renal disease, on hemodialysis. 5. Coronary artery disease. 6. Diastolic congestive heart failure. 7. Physical deconditioning. 8. Asthma. 9. Gastroesophageal reflux disease. 10. Hyperlipidemia. 11. Severe pulmonary hypertension. 12. 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 13. History of depression. 14. 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 Monitor blood sugar. 15. History of secondary hyperparathyroidism. 16. Marijuana abuse Plan: Consult Dr. Hernandez for management of end-stage renal disease and hemodialysis. Condition treatment discussed with the patient's brother at bedside in the Emergency Room. Prognosis of this patient is extremely poor due to her multiple medical problems. I will also consult Dr. Ray Nino for Infectious Disease evaluation and management because of her fever of 103 degrees Fahrenheit. Her chest x-ray, urinalysis as well as SARS-CoV-2 antigen test is negative. As patient remained stable patient was admitted to CVC unit. Blood pressure is better controlled. Patient is off Cardene drip. Labs reviewed. As needed IV hydralazine. The patient received dialysis only for 1-1/2 hours yesterday because she got very agitated, confused and started thrashing. COVID-19 infection. SARS-CoV-2 PCR test is positive. Consult Dr. Nino for infectious disease evaluation and management. No need for antibiotics at this time. Patient is not on oxygen. Continue treatment for acute metabolic encephalopathy. Start Zofran for nausea. Patient is not ready yet but whenever she is ready she will need to go to a special dialysis unit because she has COVID-19 infection. Prognosis is poor.s/s likely due to Covid-19 infection. D/w . Plan Plan For more details regarding further plans, please refer to the orders. Justifications for Admission Other Justification GAURAV DANG MD Jan 20, 2021 09:10
--- NOTE | 2021-01-20 09:55 | PDOC ---
PROGRESS NOTES Date of Service DATE: 01/20/21 TIME: 09:49 Assessment Problems Medical Problems: (1) Altered mental status Status: Acute (2) ESRD (end stage renal disease) on dialysis Status: Acute (3) Hypertensive urgency Status: Acute Encephalopathy, which she has had before, she was hypertensive which may have been the cause, but the cause-effect arrow may be bidirectional. She has had numerous evaluations in the past. Worse over weekend COVID 19 History of strokes including chronic right basal ganglia and bilateral thalamic lacunar infarcts on the CT. CT also shows white matter disease consistent with hypertension and diabetes, I doubt that she also has demyelinating disease. Elevated troponin, renal failure, anemia, coronary artery disease, diastolic congestive heart failure, fever. 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 PERRL. EOMI. CN: no focal findings. Muscle tone: normal. Muscle strength: 4/5, weaker on the left DTR: 0-1+ Plantar reflex: Dr. Gait: not examined in bed. Sensory exam: Stocking loss. No cerebellar signs elicited. Review of Relevant I have reviewed the following items richard (where applicable) has been applied. Labs Laboratory Tests Test 01/18/21 11:03 01/18/21 16:31 01/18/21 20:53 01/19/21 07:58 Glucose (Fingerstick) 128 mg/dL (70-99) 100 mg/dL (70-99) 102 mg/dL (70-99) 92 mg/dL (70-99) Test 01/19/21 12:12 01/19/21 12:40 01/19/21 17:04 01/19/21 21:05 Glucose (Fingerstick) 88 mg/dL (70-99) 92 mg/dL (70-99) 80 mg/dL (70-99) White Blood Count 4.1 x10^3/uL (4.0-11.0) Red Blood Count 2.94 x10^6/uL (3.50-5.40) Hemoglobin 9.3 g/dL (12.0-15.5) Hematocrit 27.9 % (36.0-47.0) Mean Corpuscular Volume 95 fL (79-100) Mean Corpuscular Hemoglobin 32 pg (25-35) Mean Corpuscular Hemoglobin Concent 33 g/dL (31-37) Red Cell Distribution Width 17.2 % (11.5-14.5) Platelet Count 138 x10^3/uL (140-400) Neutrophils (%) (Auto) 76 % (31-73) Lymphocytes (%) (Auto) 14 % (24-48) Monocytes (%) (Auto) 7 % (0-9) Eosinophils (%) (Auto) 2 % (0-3) Basophils (%) (Auto) 1 % (0-3) Neutrophils # (Auto) 3.1 x10^3/uL (1.8-7.7) Lymphocytes # (Auto) 0.6 x10^3/uL (1.0-4.8) Monocytes # (Auto) 0.3 x10^3/uL (0.0-1.1) Eosinophils # (Auto) 0.1 x10^3/uL (0.0-0.7) Basophils # (Auto) 0.0 x10^3/uL (0.0-0.2) Sodium Level 134 mmol/L (136-145) Potassium Level 4.6 mmol/L (3.5-5.1) Chloride Level 99 mmol/L (98-107) Carbon Dioxide Level 26 mmol/L (21-32) Anion Gap 9 (6-14) Blood Urea Nitrogen 60 mg/dL (7-20) Creatinine 8.6 mg/dL (0.6-1.0) Estimated GFR (Cockcroft-Gault) 5.8 Glucose Level 91 mg/dL (70-99) Calcium Level 8.8 mg/dL (8.5-10.1) Test 01/20/21 07:20 01/20/21 07:30 White Blood Count 6.0 x10^3/uL (4.0-11.0) Red Blood Count 2.89 x10^6/uL (3.50-5.40) Hemoglobin 9.0 g/dL (12.0-15.5) Hematocrit 27.4 % (36.0-47.0) Mean Corpuscular Volume 95 fL (79-100) Mean Corpuscular Hemoglobin 31 pg (25-35) Mean Corpuscular Hemoglobin Concent 33 g/dL (31-37) Red Cell Distribution Width 17.0 % (11.5-14.5) Platelet Count 155 x10^3/uL (140-400) Neutrophils (%) (Auto) 86 % (31-73) Lymphocytes (%) (Auto) 6 % (24-48) Monocytes (%) (Auto) 8 % (0-9) Eosinophils (%) (Auto) 0 % (0-3) Basophils (%) (Auto) 0 % (0-3) Neutrophils # (Auto) 5.2 x10^3/uL (1.8-7.7) Lymphocytes # (Auto) 0.4 x10^3/uL (1.0-4.8) Monocytes # (Auto) 0.4 x10^3/uL (0.0-1.1) Eosinophils # (Auto) 0.0 x10^3/uL (0.0-0.7) Basophils # (Auto) 0.0 x10^3/uL (0.0-0.2) Sodium Level 137 mmol/L (136-145) Potassium Level 5.2 mmol/L (3.5-5.1) Chloride Level 96 mmol/L (98-107) Carbon Dioxide Level 27 mmol/L (21-32) Anion Gap 14 (6-14) Blood Urea Nitrogen 66 mg/dL (7-20) Creatinine 10.1 mg/dL (0.6-1.0) Estimated GFR (Cockcroft-Gault) 4.8 BUN/Creatinine Ratio 7 (6-20) Glucose Level 79 mg/dL (70-99) Calcium Level 8.8 mg/dL (8.5-10.1) Total Bilirubin 0.4 mg/dL (0.2-1.0) Aspartate Amino Transf (AST/SGOT) 21 U/L (15-37) Alanine Aminotransferase (ALT/SGPT) 23 U/L (14-59) Alkaline Phosphatase 74 U/L (46-116) Total Protein 6.2 g/dL (6.4-8.2) Albumin 3.5 g/dL (3.4-5.0) Albumin/Globulin Ratio 1.3 (1.0-1.7) Glucose (Fingerstick) 79 mg/dL (70-99) Laboratory Tests Test 01/19/21 12:12 01/19/21 12:40 01/19/21 17:04 01/19/21 21:05 Glucose (Fingerstick) 88 mg/dL (70-99) 92 mg/dL (70-99) 80 mg/dL (70-99) White Blood Count 4.1 x10^3/uL (4.0-11.0) Red Blood Count 2.94 x10^6/uL (3.50-5.40) Hemoglobin 9.3 g/dL (12.0-15.5) Hematocrit 27.9 % (36.0-47.0) Mean Corpuscular Volume 95 fL (79-100) Mean Corpuscular Hemoglobin 32 pg (25-35) Mean Corpuscular Hemoglobin Concent 33 g/dL (31-37) Red Cell Distribution Width 17.2 % (11.5-14.5) Platelet Count 138 x10^3/uL (140-400) Neutrophils (%) (Auto) 76 % (31-73) Lymphocytes (%) (Auto) 14 % (24-48) Monocytes (%) (Auto) 7 % (0-9) Eosinophils (%) (Auto) 2 % (0-3) Basophils (%) (Auto) 1 % (0-3) Neutrophils # (Auto) 3.1 x10^3/uL (1.8-7.7) Lymphocytes # (Auto) 0.6 x10^3/uL (1.0-4.8) Monocytes # (Auto) 0.3 x10^3/uL (0.0-1.1) Eosinophils # (Auto) 0.1 x10^3/uL (0.0-0.7) Basophils # (Auto) 0.0 x10^3/uL (0.0-0.2) Sodium Level 134 mmol/L (136-145) Potassium Level 4.6 mmol/L (3.5-5.1) Chloride Level 99 mmol/L (98-107) Carbon Dioxide Level 26 mmol/L (21-32) Anion Gap 9 (6-14) Blood Urea Nitrogen 60 mg/dL (7-20) Creatinine 8.6 mg/dL (0.6-1.0) Estimated GFR (Cockcroft-Gault) 5.8 Glucose Level 91 mg/dL (70-99) Calcium Level 8.8 mg/dL (8.5-10.1) Test 01/20/21 07:20 01/20/21 07:30 White Blood Count 6.0 x10^3/uL (4.0-11.0) Red Blood Count 2.89 x10^6/uL (3.50-5.40) Hemoglobin 9.0 g/dL (12.0-15.5) Hematocrit 27.4 % (36.0-47.0) Mean Corpuscular Volume 95 fL (79-100) Mean Corpuscular Hemoglobin 31 pg (25-35) Mean Corpuscular Hemoglobin Concent 33 g/dL (31-37) Red Cell Distribution Width 17.0 % (11.5-14.5) Platelet Count 155 x10^3/uL (140-400) Neutrophils (%) (Auto) 86 % (31-73) Lymphocytes (%) (Auto) 6 % (24-48) Monocytes (%) (Auto) 8 % (0-9) Eosinophils (%) (Auto) 0 % (0-3) Basophils (%) (Auto) 0 % (0-3) Neutrophils # (Auto) 5.2 x10^3/uL (1.8-7.7) Lymphocytes # (Auto) 0.4 x10^3/uL (1.0-4.8) Monocytes # (Auto) 0.4 x10^3/uL (0.0-1.1) Eosinophils # (Auto) 0.0 x10^3/uL (0.0-0.7) Basophils # (Auto) 0.0 x10^3/uL (0.0-0.2) Sodium Level 137 mmol/L (136-145) Potassium Level 5.2 mmol/L (3.5-5.1) Chloride Level 96 mmol/L (98-107) Carbon Dioxide Level 27 mmol/L (21-32) Anion Gap 14 (6-14) Blood Urea Nitrogen 66 mg/dL (7-20) Creatinine 10.1 mg/dL (0.6-1.0) Estimated GFR (Cockcroft-Gault) 4.8 BUN/Creatinine Ratio 7 (6-20) Glucose Level 79 mg/dL (70-99) Calcium Level 8.8 mg/dL (8.5-10.1) Total Bilirubin 0.4 mg/dL (0.2-1.0) Aspartate Amino Transf (AST/SGOT) 21 U/L (15-37) Alanine Aminotransferase (ALT/SGPT) 23 U/L (14-59) Alkaline Phosphatase 74 U/L (46-116) Total Protein 6.2 g/dL (6.4-8.2) Albumin 3.5 g/dL (3.4-5.0) Albumin/Globulin Ratio 1.3 (1.0-1.7) Glucose (Fingerstick) 79 mg/dL (70-99) Medications Current Medications Fentanyl Citrate (Fentanyl 2ml Vial) 75 mcg 1X ONCE IVP Last administered on 01/16/21at 08:31; Start 01/16/21 at 08:00; Stop 01/16/21 at 08:05; Status DC Ziprasidone (Geodon Im) 20 mg 1X ONCE IM Last administered on 01/16/21at 08:08; Start 01/16/21 at 08:00; Stop 01/16/21 at 08:05; Status DC Lorazepam (Ativan Inj) 2 mg 1X ONCE IVP Last administered on 01/16/21at 08:45; Start 01/16/21 at 08:45; Stop 01/16/21 at 08:46; Status DC Hydralazine HCl (Apresoline Inj) 20 mg 1X ONCE IVP Last administered on 01/16/21at 09:04; Start 01/16/21 at 09:00; Stop 01/16/21 at 09:02; Status DC Lorazepam (Ativan Inj) 2 mg 1X ONCE IVP Last administered on 01/16/21at 09:40; Start 01/16/21 at 09:30; Stop 01/16/21 at 09:31; Status DC Labetalol HCl (Normodyne Iv Push) 10 mg 1X ONCE IVP Last administered on 01/16/21at 12:03; Start 01/16/21 at 11:00; Stop 01/16/21 at 11:01; Status DC Aspirin (Aspirin Rectal Supp) 300 mg 1X ONCE AK Last administered on 01/16/21at 12:05; Start 01/16/21 at 11:15; Stop 01/16/21 at 11:16; Status DC Ondansetron HCl (Zofran) 4 mg PRN Q8HRS PRN IVP NAUSEA/VOMITING; Start 01/16/21 at 11:30; Stop 01/17/21 at 11:29; Status DC Insulin Human Lispro (HumaLOG) 0-5 UNITS TIDWMEALS SQ ; Start 01/16/21 at 12:00 Dextrose (Dextrose 50%-Water Syringe) 12.5 gm PRN Q15MIN PRN IV SEE COMMENTS; Start 01/16/21 at 11:30 Lorazepam (Ativan Inj) 1 mg PRN Q4HRS PRN IVP ANXIETY / AGITATION Last administered on 01/18/21at 04:18; Start 01/16/21 at 12:45 Hydralazine HCl (Apresoline Inj) 20 mg PRN Q4HRS PRN IVP ELEVATED BP, SEE COMMENTS Last administered on 01/16/21at 13:30; Start 01/16/21 at 13:00 Nicardipine HCl 50 mg/Sodium Chloride 250 ml @ 25 mls/hr CONT PRN IV SEE I/O RECORD Last administered on 01/17/21at 04:25; Start 01/16/21 at 14:00; Stop 01/17/21 at 16:08; Status DC Aspirin (Ecotrin) 81 mg DAILY PO Last administered on 01/20/21at 09:05; Start 01/17/21 at 13:00 Atorvastatin Calcium (Lipitor) 80 mg HS PO Last administered on 01/19/21at 20:31; Start 01/17/21 at 21:00 Carvedilol (Coreg) 12.5 mg BIDWMEALS PO Last administered on 01/20/21at 09:06; Start 01/17/21 at 17:00 Clonidine HCl (Catapres) 0.2 mg BID PO Last administered on 01/20/21at 09:07; Start 01/17/21 at 21:00 Clopidogrel Bisulfate (Plavix) 75 mg DAILY PO Last administered on 01/20/21 09:06; Start 01/17/21 at 13:00 EZETIMIBE (Zetia) 10 mg DAILY PO Last administered on 01/20/21 09:06; Start 01/17/21 at 13:00 Hydralazine HCl (Apresoline) 50 mg TID PO Last administered on 01/20/21 09:06; Start 01/17/21 at 14:00 Isosorbide Mononitrate (Imdur) 120 mg DAILY PO Last administered on 01/20/21 09:08; Start 01/17/21 at 13:00 Minoxidil (Loniten) 2.5 mg BID PO Last administered on 01/20/21 09:06; Start 01/17/21 at 21:00 Acetaminophen (Tylenol) 650 mg PRN Q6HRS PRN PO MILD PAIN / TEMP > 100.3'F Last administered on 01/18/21at 17:34; Start 01/17/21 at 20:45 Acetaminophen/ Hydrocodone Bitart (Lortab 7.5/325) 1 tab PRN Q6HRS PRN PO MO DERATE-SEVERE PAIN Last administered on 01/20/21at 09:07; Start 01/17/21 at 20:45 Sodium Chloride 1,000 ml @ 1,000 mls/hr Q1H PRN IV hypotension; Start 01/18/21 at 11:30; Stop 01/18/21 at 17:29; Status DC Albumin Human 200 ml @ 200 mls/hr 1X PRN PRN IV Hypotension; Start 01/18/21 at 11:30; Stop 01/18/21 at 17:29; Status DC Sodium Chloride 1,000 ml @ 400 mls/hr Q2H30M PRN IV PATENCY; Start 01/18/21 at 11:30; Stop 01/18/21 at 23:29; Status DC Info (PHARMACY MONITORING -- do not chart) 1 each PRN DAILY PRN MC SEE COMMENTS; Start 01/18/21 at 11:30; Status UNV Info (PHARMACY MONITORING -- do not chart) 1 each PRN DAILY PRN MC SEE COMMENTS; Start 01/18/21 at 11:30 Fentanyl Citrate (Fentanyl 2ml Vial) 25 mcg PRN Q3HRS PRN IV PAIN; Start 01/18/21 at 14:00 Ondansetron HCl (Zofran Odt) 4 mg PRN Q6HRS PRN PO NAUSEA/VOMITING Last administered on 01/19/21at 16:17; Start 01/19/21 at 09:30 Oxycodone HCl (Roxicodone) 10 mg PRN Q4HRS PRN PO PAIN Last administered on 01/20/21at 01:00; Start 01/19/21 at 17:30 Simethicone (Gas-X) 80 mg PRN TID PRN PO GAS / BLOATING Last administered on 01/19/21at 23:54; Start 01/19/21 at 21:15 Lorazepam (Ativan) 0.5 mg PRN Q6HRS PRN PO ANXIETY / AGITATION Last administered on 01/20/21at 09:06; Start 01/19/21 at 21:15 Active Scripts Active Lactulose 20 Gm/30 Ml Solution 20 Gm PO BID 5 Days Culturelle (Lactobacillus Rhamnosus Gg) 1 Each Cap.sprink 1 Cap PO BID Metoclopramide Hcl 5 Mg/1 Ml Vial 5 Mg IV PRN Q6HRS PRN Metoclopramide Hcl 5 Mg/1 Ml Vial 5 Mg IV [id number] Ondansetron Hcl 4 Mg/2 Ml Vial (Ondansetron Hcl/Pf) 4 Mg/2 Ml Vial 4 Mg IV PRN Q6HRS PRN Buspirone Hcl 5 Mg Tablet 5 Mg PO TID Quetiapine Fumarate 25 Mg Tablet 12.5 Mg PO PRN Q6HRS PRN Quetiapine Fumarate 25 Mg Tablet 25 Mg PO QHS Sertraline Hcl 50 Mg Tablet 50 Mg PO DAILY Hydrocodone-Apap 7.5-325 (Hydrocodone Bit/Acetaminophen) 1 Each Tablet 1 Tab PO PRN Q8HRS PRN Fentanyl 0.05 Mg/Ml Vial (Fentanyl Citrate/Pf) 50 Mcg/1 Ml Vial 50 Mcg IV PRN Q4HRS PRN [Darbepoetin Ty In Polysorbat] 60 MCG/0.3 ML Disp.syrin 60 Mcg SQ WEEKLYHS Zyvox (Linezolid) 600 Mg Tablet 600 Mg PO BID Vitamin D3 (Cholecalciferol (Vitamin D3)) 1,000 Unit Tablet 1 Tab PO DAILY [Calcium Acetate] 667 MG Capsule 1,334 Mg PO TIDWMEALS Mapap (Acetaminophen) 500 Mg Tablet 1,000 Mg PO TID Carvedilol (Carvedilol) 12.5 Mg Tablet 12.5 Mg PO BIDWMEALS Minoxidil 2.5 Mg Tablet 2.5 Mg PO BID Isosorbide Mononitrate Er (Isosorbide Mononitrate) 30 Mg Tab.er.24h 120 Mg PO DAILY Montelukast Sodium Tablet (Montelukast Sodium) 10 Mg Tablet 10 Mg PO QHS Polyethylene Glycol 3350 2,500 Gm Powder 17 Gm PO DAILY Novolog Flexpen (Insulin Aspart) 100 Unit/1 Ml Insuln.pen 0 Units SQ TIDAC Take sub q tid ac: BS 151-200=2 unit, 201-250=3 unit, OI925-600, BS 301-350=6 unit, BS 351-400 =8 unit. BS>401 call MD Renetta Busch 10,000 Units Capsule (Lipase/Protease/Amylase) 1 Each Capsule.dr 2 Cap PO TIDWMEALS TAke 2 cap tid with meals Nephro-Donny Tablet (Folic Acid/Vitamin B Comp W-C) 0.8 Mg Tablet 1 Tab PO DAILY Benadryl (Diphenhydramine Hcl) 25 Mg Capsule 25 Mg PO PRN Q6HRS PRN Reported Lactulose 10 Gm Packet 10 Gm PO Q6HRS Lidocaine 15 Gm Cream..g. 1 Karma TP TID PRN 30 Days Isosorbide Mononitrate Er (Isosorbide Mononitrate) 60 Mg Tab.er.24h 1 Tab PO DAILY Vitamin A 2,400 Mcg Capsule 1,250 Mcg PO WEEKLY Hydrocodone-Apap 10-325 (Hydrocodone Bit/Acetaminophen) 1 Tab Tablet 1 Tab PO PRN Q6HRS PRN Ultram (Tramadol Hcl) 50 Mg Tablet 1 Tab PO BID MDD 2 Tablet(s) 30 Days Hydralazine Hcl 50 Mg Tablet 1 Tab PO TID Acetaminophen 325 Mg Tablet 2 Tab PO Q6HRS PRN 30 Days Glucose Gel (Dextrose) 38 Gm Gel..gram. 15 Gm PO PRN Sertraline Hcl 100 Mg Tablet 100 Mg PO DAILY Glucagon Emergency Kit (Glucagon,Human Recombinant) 1 Mg Kit 1 Mg IM PRN Senna Plus Tablet (Sennosides/Docusate Sodium) 1 Each Tablet 2 Tab PO QHS 14 Days Zetia (Ezetimibe) 10 Mg Tablet 1 Tab PO DAILY 30 Days Renvela (Sevelamer Carbonate) 800 Mg Tablet 800 Mg PO TIDWMEALS Escitalopram Oxalate 10 Mg Tablet 1 Tab PO DAILY Lyrica (Pregabalin) 50 Mg Capsule 25 Mg PO QHS [creon] 1 Cap PO TIDAC Oxycodone HCl 5 Mg Tablet 5 Mg PO Q8HRS PRN [zenpep] 10 Mg PO TIDAC Clonidine Hcl 0.2 Mg Tablet 0.2 Mg PO BID Zofran (Ondansetron Hcl) 4 Mg Tablet 1 Tab PO Q4HRS PRN Sensipar (Cinacalcet Hcl) 30 Mg Tablet 1 Tab PO DAILY 30 Days Mirtazapine 15 Mg Tablet 1 Tab PO QHS Atorvastatin Calcium 40 Mg Tablet 80 Mg PO HS Minoxidil 2.5 Mg Tablet 2.5 Mg PO DAILY Amlodipine Besylate 10 Mg Tablet 10 Mg PO DAILY Lidocaine PATCH (Lidocaine) 1 Each Adh..patch 1 Each TP DAILY REMOVE AFTER 12 HOURS Proair Hfa Inhaler (Albuterol Sulfate) 8.5 Gm Hfa.aer.ad 2 Puff INH PRN Q6HRS PRN Nitrostat (Nitroglycerin) 0.4 Mg Tab.subl 0.4 Mg SL PRN Q5MIN PRN Plavix (Clopidogrel Bisulfate) 75 Mg Tablet 1 Tab PO DAILY Zoloft (Sertraline Hcl) 100 Mg Tablet 1 Tab PO DAILY Pantoprazole Sodium (Pantoprazole Sodium) 40 Mg Tablet. 1 Tab PO DAILY Losartan Potassium 100 Mg Tablet 100 Mg PO DAILY Aspir 81 (Aspirin) 81 Mg Tablet.dr 81 Mg PO DAILY Vitals/I & O Vital Sign - Last 24 Hours 01/19/21 01/19/21 01/19/21 01/19/21 11:00 14:24 14:24 14:50 Temp 97.3 97.3 Pulse 65 65 Resp 18 20 18 B/P (MAP) 107/46 (66) 107/46 Pulse Ox 97 97 96 O2 Delivery Room Air Room Air Room Air O2 Flow Rate 2.0 01/19/21 01/19/21 01/19/21 01/19/21 15:00 17:51 17:53 18:20 Temp 98.2 98.2 Pulse 61 61 Resp 20 20 18 B/P (MAP) 189/61 (103) 189/61 Pulse Ox 96 96 96 O2 Delivery Room Air Room Air Room Air O2 Flow Rate 2.0 2.0 01/19/21 01/19/21 01/19/21 01/19/21 19:00 20:00 20:31 20:32 Temp 98.0 98.0 Pulse 60 Resp 19 B/P (MAP) 148/83 (104) 148/83 148/83 Pulse Ox 98 O2 Delivery Room Air Room Air 01/19/21 01/19/21 01/20/21 01/20/21 20:32 23:32 02:42 07:00 Temp 98.1 98.0 96.4 98.1 98.0 96.4 Pulse 65 60 69 Resp 19 19 20 B/P (MAP) 148/83 113/46 (68) 143/47 (79) 134/56 (82) Pulse Ox 98 97 96 O2 Delivery Room Air Room Air Room Air 01/20/21 01/20/21 01/20/21 01/20/21 09:06 09:06 09:06 09:07 Pulse 69 69 69 69 B/P (MAP) 134/56 134/56 134/56 134/56 01/20/21 01/20/21 09:07 09:08 Pulse 69 Resp 20 B/P (MAP) 134/56 Pulse Ox 96 O2 Delivery Room Air O2 Flow Rate 2.0 Intake and Output 01/19/21 01/19/21 01/20/21 15:00 23:00 07:00 Intake Total 200 ml 150 ml 0 ml Balance 200 ml 150 ml 0 ml Justicifation of Admission Dx: Justifications for Admission: Justification of Admission Dx: N/A MARINA REYNOSO MD Jan 20, 2021 09:55
[2021-01-20 10:35] LABS: % LYMPHS 9 % (24-48); % MONOS 6 % (0-10); % SEGS 85 % (35-66)
[2021-01-20 10:36] LABS: PLT ESTIMATE ADEQUATE (ADEQUATE)
--- NOTE | 2021-01-20 10:42 | PDOC ---
Renal-Progress Notes Subjective Notes Notes REMAINS CONFUSED History of Present Illness Hx of present illness STABLE Vitals Vitals Vital Signs Date Time Temp Pulse Resp B/P (MAP) Pulse Ox O2 Delivery O2 Flow Rate FiO2 01/20/21 09:08 69 134/56 01/20/21 09:07 20 96 Room Air 2.0 01/20/21 07:00 96.4 96.4 Weight Weight [ ] I.O. Intake and Output Intake and Output 01/20/21 07:00 Intake Total 350 ml Balance 350 ml Intake Oral 350 ml # Voids 1 Labs Labs Laboratory Tests Test 01/19/21 12:12 01/19/21 12:40 01/19/21 17:04 01/19/21 21:05 Glucose (Fingerstick) 88 mg/dL (70-99) 92 mg/dL (70-99) 80 mg/dL (70-99) White Blood Count 4.1 x10^3/uL (4.0-11.0) Red Blood Count 2.94 x10^6/uL (3.50-5.40) Hemoglobin 9.3 g/dL (12.0-15.5) Hematocrit 27.9 % (36.0-47.0) Mean Corpuscular Volume 95 fL (79-100) Mean Corpuscular Hemoglobin 32 pg (25-35) Mean Corpuscular Hemoglobin Concent 33 g/dL (31-37) Red Cell Distribution Width 17.2 % (11.5-14.5) Platelet Count 138 x10^3/uL (140-400) Neutrophils (%) (Auto) 76 % (31-73) Lymphocytes (%) (Auto) 14 % (24-48) Monocytes (%) (Auto) 7 % (0-9) Eosinophils (%) (Auto) 2 % (0-3) Basophils (%) (Auto) 1 % (0-3) Neutrophils # (Auto) 3.1 x10^3/uL (1.8-7.7) Lymphocytes # (Auto) 0.6 x10^3/uL (1.0-4.8) Monocytes # (Auto) 0.3 x10^3/uL (0.0-1.1) Eosinophils # (Auto) 0.1 x10^3/uL (0.0-0.7) Basophils # (Auto) 0.0 x10^3/uL (0.0-0.2) Sodium Level 134 mmol/L (136-145) Potassium Level 4.6 mmol/L (3.5-5.1) Chloride Level 99 mmol/L (98-107) Carbon Dioxide Level 26 mmol/L (21-32) Anion Gap 9 (6-14) Blood Urea Nitrogen 60 mg/dL (7-20) Creatinine 8.6 mg/dL (0.6-1.0) Estimated GFR (Cockcroft-Gault) 5.8 Glucose Level 91 mg/dL (70-99) Calcium Level 8.8 mg/dL (8.5-10.1) Test 01/20/21 07:20 01/20/21 07:30 White Blood Count 6.0 x10^3/uL (4.0-11.0) Red Blood Count 2.89 x10^6/uL (3.50-5.40) Hemoglobin 9.0 g/dL (12.0-15.5) Hematocrit 27.4 % (36.0-47.0) Mean Corpuscular Volume 95 fL (79-100) Mean Corpuscular Hemoglobin 31 pg (25-35) Mean Corpuscular Hemoglobin Concent 33 g/dL (31-37) Red Cell Distribution Width 17.0 % (11.5-14.5) Platelet Count 155 x10^3/uL (140-400) Neutrophils (%) (Auto) 86 % (31-73) Lymphocytes (%) (Auto) 6 % (24-48) Monocytes (%) (Auto) 8 % (0-9) Eosinophils (%) (Auto) 0 % (0-3) Basophils (%) (Auto) 0 % (0-3) Neutrophils # (Auto) 5.2 x10^3/uL (1.8-7.7) Lymphocytes # (Auto) 0.4 x10^3/uL (1.0-4.8) Monocytes # (Auto) 0.4 x10^3/uL (0.0-1.1) Eosinophils # (Auto) 0.0 x10^3/uL (0.0-0.7) Basophils # (Auto) 0.0 x10^3/uL (0.0-0.2) Segmented Neutrophils % 85 % (35-66) Lymphocytes % 9 % (24-48) Monocytes % 6 % (0-10) Platelet Estimate Adequate (ADEQUATE) Sodium Level 137 mmol/L (136-145) Potassium Level 5.2 mmol/L (3.5-5.1) Chloride Level 96 mmol/L (98-107) Carbon Dioxide Level 27 mmol/L (21-32) Anion Gap 14 (6-14) Blood Urea Nitrogen 66 mg/dL (7-20) Creatinine 10.1 mg/dL (0.6-1.0) Estimated GFR (Cockcroft-Gault) 4.8 BUN/Creatinine Ratio 7 (6-20) Glucose Level 79 mg/dL (70-99) Calcium Level 8.8 mg/dL (8.5-10.1) Total Bilirubin 0.4 mg/dL (0.2-1.0) Aspartate Amino Transf (AST/SGOT) 21 U/L (15-37) Alanine Aminotransferase (ALT/SGPT) 23 U/L (14-59) Alkaline Phosphatase 74 U/L (46-116) Total Protein 6.2 g/dL (6.4-8.2) Albumin 3.5 g/dL (3.4-5.0) Albumin/Globulin Ratio 1.3 (1.0-1.7) Glucose (Fingerstick) 79 mg/dL (70-99) Review of Systems Constitutional: yes: other (CONFUSED) Physical Exam General Appearance: no apparent distress Skin: warm Respiratory: bilateral CTA Heart: S1S2 Abdomen: soft, bowel sounds present Genitourinary: bladder flat Extremities: pulses present Musculoskeletal: Osteoarthritis Assessment Assessment IMP COVID 19 POS [id number] ARM BC AVF HTN EMERGENCY-BETTER ENCEPHALOPATHY DUE TO ABOVE ANEMIA FLUID OVERLOAD ACUTE ON CHRONIC DIASTOLIC CHF FEVER CAD WITH CABG PLAN EDGAR ON HOLD CONT HOME MEDS RENAL DIET ENC COMPLIANCE ID EVAL AND TX HD TOMORROW HAVE DISCUSSED CASE WITH DR DANG SW WILL NEED TO COORDINATE WITH [employer] ABOUT COHORTING HER WILL FOLLOW TING REYNA MD Jan 20, 2021 10:42
[2021-01-20 11:00] VITALS: BP 129/48
--- NOTE | 2021-01-20 14:57 | NUR ---
SS following up with discharge planning. SS reviewed pt chart and discussed with pt RN. Pt is currently on room air. COVID19 positive. PT/OT ordered. Pt has outpatient dialysis at [facility], ; fax [phone]. SS will continue to follow for discharge planning.
[2021-01-20 15:00] VITALS: BP 136/48
[2021-01-20 19:00] VITALS: BP 147/62
[2021-01-20] MEDS: ONDANSETRON ODT 4 MG TAB.RAPDIS. PO PRN (21:06)
[2021-01-20] MEDS: SIMETHICONE 80 MG TAB.CHEW PO PRN (21:06)
[2021-01-20] MEDS: ATORVASTATIN CALCIUM 40 MG TABLET. PO SCH (21:07)
[2021-01-20 23:00] VITALS: BP 110/48
[2021-01-21 03:00] VITALS: BP 154/72
[2021-01-21] MEDS: ONDANSETRON ODT 4 MG TAB.RAPDIS. PO PRN (06:04)
[2021-01-21] MEDS: LORazepam 0.5 MG TABLET PO PRN ×2 (06:04→20:05)
[2021-01-21] MEDS: SIMETHICONE 80 MG TAB.CHEW PO PRN (06:04)
[2021-01-21] MEDS: HYDROcodone/APAP 7.5/325MG 1 TAB TABLET PO PRN (06:05)
[2021-01-21 06:09] LABS: CALCIUM 8.8 mg/dL (8.5-10.1); CREATININE 11.1 mg/dL (0.6-1.0); GFR 4.3; POTASSIUM 5.2 mmol/L (3.5-5.1)
[2021-01-21 06:53] VITALS: BP 146/54
[2021-01-21] MEDS: INSULIN LISPRO 300 UNITS/3 ML VIAL. SQ SCH ×3 (08:00→17:00)
--- NOTE | 2021-01-21 09:22 | PDOC ---
IM PROGRESS NOTES- Subjective Subjective complaints of pain,headaches,abdominal pain. Complaints of nausea. Vomits occasionally. Patient was quite confused and agitated yesterday and today. Objective Vitals/I&O Vital Signs Date Time Temp Pulse Resp B/P (MAP) Pulse Ox O2 Delivery O2 Flow Rate FiO2 01/21/21 06:53 97.5 64 19 146/54 (84) 92 Room Air 97.5 01/20/21 21:07 2.0 I & O 01/20/21 01/20/21 01/21/21 15:00 23:00 07:00 Intake Total 250 ml 200 ml 0 ml Balance 250 ml 200 ml 0 ml Physical Exam Physical Exam General Appearance - alert and in no distress Chest - decreased breath sounds at bases Heart - S1 and S2 normal Abdomen - soft, non tender Neurological - alert and confused Musculoskeletal - generalized weakness Extremities - no edema Labs Laboratory Tests Test 01/20/21 11:37 01/20/21 17:01 01/20/21 21:26 01/21/21 04:45 Glucose (Fingerstick) 83 mg/dL (70-99) 83 mg/dL (70-99) 86 mg/dL (70-99) Sodium Level 132 mmol/L (136-145) L Potassium Level 5.2 mmol/L (3.5-5.1) H Chloride Level 91 mmol/L (98-107) L Carbon Dioxide Level 23 mmol/L (21-32) Anion Gap 18 (6-14) H Blood Urea Nitrogen 76 mg/dL (7-20) H Creatinine 11.1 mg/dL (0.6-1.0) H Estimated GFR (Cockcroft-Gault) 4.3 Glucose Level 91 mg/dL (70-99) Calcium Level 8.8 mg/dL (8.5-10.1) Test 01/21/21 08:01 Glucose (Fingerstick) 80 mg/dL (70-99) Laboratory Tests 01/21/21 04:45 Assessment Assessment 1. Acute metabolic encephalopathy, etiology not clear. The patient has had similar episodes in the past. This may be due to acute hypertensive crisis. 2. Acute hypertensive crisis. This may be also contributing to the acute metabolic encephalopathy. 3. End-stage renal disease on hemodialysis. 4. Anemia. 5. Coronary artery disease. 6. Diastolic congestive heart failure. 7. Fever: The patient had fever of 103. This may be due to her agitation, but sepsis needs to be ruled out. Lactic acid level is normal. 8. 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 9. 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 10. Physical deconditioning. 11. Status post coronary artery bypass grafting. 12. Peripheral artery disease. 13. COVID-19 infection. Rapid antigen test was negative but PCR is positive. Patient spiked fever once. PLAN: 1. Acute metabolic encephalopathy. Continue to give her lorazepam as needed. Monitor closely in the Intensive Care Unit. Consult Dr. Martinez for neurology evaluation and management. Likely due to hypertensive crisis.Mental status is improving. 2. Acute hypertensive crisis. The patient is responding to Cardene drip. Consult Dr. Leahy for cardiology evaluation and management. 3. Elevated troponin. This may be due to demand ischemia and also end-stage renal disease may be contributing. 4. End-stage renal disease, on hemodialysis. 5. Coronary artery disease. 6. Diastolic congestive heart failure. 7. Physical deconditioning. 8. Asthma. 9. Gastroesophageal reflux disease. 10. Hyperlipidemia. 11. Severe pulmonary hypertension. 12. 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 13. History of depression. 14. 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 Monitor blood sugar. 15. History of secondary hyperparathyroidism. 16. Marijuana abuse Plan: End-stage renal disease on hemodialysis - consult Dr. Hernandez for management of end-stage renal disease and hemodialysis. Condition treatment discussed with the patient's brother at bedside in the Emergency Room. Prognosis of this patient is extremely poor due to her multiple medical problems. As patient remained stable patient was admitted to CVC unit. Blood pressure is better controlled. Patient is off Cardene drip. Labs reviewed. As needed IV hydralazine. The patient received dialysis only for 1-1/2 hours yesterday because she got very agitated, confused and started thrashing. COVID-19 infection. SARS-CoV-2 PCR test is positive. This may be also contributing to patient's poor appetite, body aches and confusion.I will also consult Dr. Ray Nino for Infectious Disease evaluation and management because of her fever of 103 degrees Fahrenheit. Her chest x-ray, urinalysis as well as SARS-CoV-2 antigen test is negative. Consult Dr. Nino for infectious disease evaluation and management. No need for antibiotics at this time. Patient is not on oxygen Acute hypertensive crisis-patient responded to Cardene drip ,now she is stable on oral medications. Acute metabolic encephalopathy-this may be multifactorial including due to acute hypertensive crisis, COVID-19 infection and other factors. Continue treatment for acute metabolic encephalopathy. Start Zofran for nausea. Patient is not ready yet but whenever she is ready she will need to go to a special dialysis unit because she has COVID-19 infection. Prognosis is poor.s/s likely due to Covid-[address] Nino Vomiting-start pantoprazole. Encourage oral intake. Discussed with staff they also offered Nepro for her to drink but she is not drinking. Detailed message left for patient's daughter Kerri Sweeney on phone about patient's condition treatment and options. Plan Plan For more details regarding further plans, please refer to the orders. Justifications for Admission Other Justification GAURAV DANG MD Jan 21, 2021 09:22
[2021-01-21] MEDS: MINOXIDIL 2.5 MG TABLET PO SCH ×2 (09:49→23:27)
[2021-01-21] MEDS: CLOPIDOGREL BISULFATE 75 MG TABLET PO SCH (09:50)
[2021-01-21] MEDS: cloNIDine HCL 0.2 MG TABLET PO SCH ×2 (09:50→23:27)
[2021-01-21] MEDS: CARVEDILOL 12.5 MG TABLET. PO SCH ×2 (09:50→23:26)
[2021-01-21] MEDS: ISOSORBIDE MONONITRATE ER 30 MG TAB.ER.24H PO SCH (09:50)
[2021-01-21] MEDS: EZETIMIBE 10 MG TABLET. PO SCH (09:51)
[2021-01-21] MEDS: ASPIRIN ENTERIC COATED 81 MG TABLET.DR. PO SCH (09:51)
[2021-01-21] MEDS: PANTOPRAZOLE 40 MG TABLET.DR. PO SCH (10:00)
--- NOTE | 2021-01-21 10:20 | PDOC ---
PROGRESS NOTES Date of Service DATE: 01/21/21 TIME: 10:18 Assessment Problems Medical Problems: (1) Altered mental status Status: Acute (2) ESRD (end stage renal disease) on dialysis Status: Acute (3) Hypertensive urgency Status: Acute Encephalopathy, which she has had before, she was hypertensive which may have been the cause, but the cause-effect arrow may be bidirectional. She has had numerous evaluations in the past. Worse over weekend COVID 19 History of strokes including chronic right basal ganglia and bilateral thalamic lacunar infarcts on the CT. CT also shows white matter disease consistent with hypertension and diabetes, I doubt that she also has demyelinating disease. Elevated troponin, renal failure, anemia, coronary artery disease, diastolic congestive heart failure, fever. 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 PERRL. EOMI. CN: no focal findings. Muscle tone: normal. Muscle strength: 4/5, weaker on the left DTR: 0-1+ Plantar reflex: flexor Gait: not examined in bed. Sensory exam: Stocking loss. No cerebellar signs elicited. Review of Relevant I have reviewed the following items richard (where applicable) has been applied. Labs Laboratory Tests Test 01/19/21 12:12 01/19/21 12:40 01/19/21 17:04 01/19/21 21:05 Glucose (Fingerstick) 88 mg/dL (70-99) 92 mg/dL (70-99) 80 mg/dL (70-99) White Blood Count 4.1 x10^3/uL (4.0-11.0) Red Blood Count 2.94 x10^6/uL (3.50-5.40) Hemoglobin 9.3 g/dL (12.0-15.5) Hematocrit 27.9 % (36.0-47.0) Mean Corpuscular Volume 95 fL (79-100) Mean Corpuscular Hemoglobin 32 pg (25-35) Mean Corpuscular Hemoglobin Concent 33 g/dL (31-37) Red Cell Distribution Width 17.2 % (11.5-14.5) Platelet Count 138 x10^3/uL (140-400) Neutrophils (%) (Auto) 76 % (31-73) Lymphocytes (%) (Auto) 14 % (24-48) Monocytes (%) (Auto) 7 % (0-9) Eosinophils (%) (Auto) 2 % (0-3) Basophils (%) (Auto) 1 % (0-3) Neutrophils # (Auto) 3.1 x10^3/uL (1.8-7.7) Lymphocytes # (Auto) 0.6 x10^3/uL (1.0-4.8) Monocytes # (Auto) 0.3 x10^3/uL (0.0-1.1) Eosinophils # (Auto) 0.1 x10^3/uL (0.0-0.7) Basophils # (Auto) 0.0 x10^3/uL (0.0-0.2) Sodium Level 134 mmol/L (136-145) Potassium Level 4.6 mmol/L (3.5-5.1) Chloride Level 99 mmol/L (98-107) Carbon Dioxide Level 26 mmol/L (21-32) Anion Gap 9 (6-14) Blood Urea Nitrogen 60 mg/dL (7-20) Creatinine 8.6 mg/dL (0.6-1.0) Estimated GFR (Cockcroft-Gault) 5.8 Glucose Level 91 mg/dL (70-99) Calcium Level 8.8 mg/dL (8.5-10.1) Test 01/20/21 07:20 01/20/21 07:30 01/20/21 11:37 01/20/21 17:01 White Blood Count 6.0 x10^3/uL (4.0-11.0) Red Blood Count 2.89 x10^6/uL (3.50-5.40) Hemoglobin 9.0 g/dL (12.0-15.5) Hematocrit 27.4 % (36.0-47.0) Mean Corpuscular Volume 95 fL (79-100) Mean Corpuscular Hemoglobin 31 pg (25-35) Mean Corpuscular Hemoglobin Concent 33 g/dL (31-37) Red Cell Distribution Width 17.0 % (11.5-14.5) Platelet Count 155 x10^3/uL (140-400) Neutrophils (%) (Auto) 86 % (31-73) Lymphocytes (%) (Auto) 6 % (24-48) Monocytes (%) (Auto) 8 % (0-9) Eosinophils (%) (Auto) 0 % (0-3) Basophils (%) (Auto) 0 % (0-3) Neutrophils # (Auto) 5.2 x10^3/uL (1.8-7.7) Lymphocytes # (Auto) 0.4 x10^3/uL (1.0-4.8) Monocytes # (Auto) 0.4 x10^3/uL (0.0-1.1) Eosinophils # (Auto) 0.0 x10^3/uL (0.0-0.7) Basophils # (Auto) 0.0 x10^3/uL (0.0-0.2) Segmented Neutrophils % 85 % (35-66) Lymphocytes % 9 % (24-48) Monocytes % 6 % (0-10) Platelet Estimate Adequate (ADEQUATE) Sodium Level 137 mmol/L (136-145) Potassium Level 5.2 mmol/L (3.5-5.1) Chloride Level 96 mmol/L (98-107) Carbon Dioxide Level 27 mmol/L (21-32) Anion Gap 14 (6-14) Blood Urea Nitrogen 66 mg/dL (7-20) Creatinine 10.1 mg/dL (0.6-1.0) Estimated GFR (Cockcroft-Gault) 4.8 BUN/Creatinine Ratio 7 (6-20) Glucose Level 79 mg/dL (70-99) Calcium Level 8.8 mg/dL (8.5-10.1) Total Bilirubin 0.4 mg/dL (0.2-1.0) Aspartate Amino Transf (AST/SGOT) 21 U/L (15-37) Alanine Aminotransferase (ALT/SGPT) 23 U/L (14-59) Alkaline Phosphatase 74 U/L (46-116) Total Protein 6.2 g/dL (6.4-8.2) Albumin 3.5 g/dL (3.4-5.0) Albumin/Globulin Ratio 1.3 (1.0-1.7) Glucose (Fingerstick) 79 mg/dL (70-99) 83 mg/dL (70-99) 83 mg/dL (70-99) Test 01/20/21 21:26 01/21/21 04:45 01/21/21 08:01 Glucose (Fingerstick) 86 mg/dL (70-99) 80 mg/dL (70-99) Sodium Level 132 mmol/L (136-145) Potassium Level 5.2 mmol/L (3.5-5.1) Chloride Level 91 mmol/L (98-107) Carbon Dioxide Level 23 mmol/L (21-32) Anion Gap 18 (6-14) Blood Urea Nitrogen 76 mg/dL (7-20) Creatinine 11.1 mg/dL (0.6-1.0) Estimated GFR (Cockcroft-Gault) 4.3 Glucose Level 91 mg/dL (70-99) Calcium Level 8.8 mg/dL (8.5-10.1) Laboratory Tests Test 01/20/21 11:37 01/20/21 17:01 01/20/21 21:26 01/21/21 04:45 Glucose (Fingerstick) 83 mg/dL (70-99) 83 mg/dL (70-99) 86 mg/dL (70-99) Sodium Level 132 mmol/L (136-145) Potassium Level 5.2 mmol/L (3.5-5.1) Chloride Level 91 mmol/L (98-107) Carbon Dioxide Level 23 mmol/L (21-32) Anion Gap 18 (6-14) Blood Urea Nitrogen 76 mg/dL (7-20) Creatinine 11.1 mg/dL (0.6-1.0) Estimated GFR (Cockcroft-Gault) 4.3 Glucose Level 91 mg/dL (70-99) Calcium Level 8.8 mg/dL (8.5-10.1) Test 01/21/21 08:01 Glucose (Fingerstick) 80 mg/dL (70-99) Medications Current Medications Fentanyl Citrate (Fentanyl 2ml Vial) 75 mcg 1X ONCE IVP Last administered on 01/16/21at 08:31; Start 01/16/21 at 08:00; Stop 01/16/21 at 08:05; Status DC Ziprasidone (Geodon Im) 20 mg 1X ONCE IM Last administered on 01/16/21at 08:08; Start 01/16/21 at 08:00; Stop 01/16/21 at 08:05; Status DC Lorazepam (Ativan Inj) 2 mg 1X ONCE IVP Last administered on 01/16/21at 08:45; Start 01/16/21 at 08:45; Stop 01/16/21 at 08:46; Status DC Hydralazine HCl (Apresoline Inj) 20 mg 1X ONCE IVP Last administered on 01/16/21at 09:04; Start 01/16/21 at 09:00; Stop 01/16/21 at 09:02; Status DC Lorazepam (Ativan Inj) 2 mg 1X ONCE IVP Last administered on 01/16/21at 09:40; Start 01/16/21 at 09:30; Stop 01/16/21 at 09:31; Status DC Labetalol HCl (Normodyne Iv Push) 10 mg 1X ONCE IVP Last administered on 01/16/21at 12:03; Start 01/16/21 at 11:00; Stop 01/16/21 at 11:01; Status DC Aspirin (Aspirin Rectal Supp) 300 mg 1X ONCE MS Last administered on 01/16/21at 12:05; Start 01/16/21 at 11:15; Stop 01/16/21 at 11:16; Status DC Ondansetron HCl (Zofran) 4 mg PRN Q8HRS PRN IVP NAUSEA/VOMITING; Start 01/16/21 at 11:30; Stop 01/17/21 at 11:29; Status DC Insulin Human Lispro (HumaLOG) 0-5 UNITS TIDWMEALS SQ ; Start 01/16/21 at 12:00 Dextrose (Dextrose 50%-Water Syringe) 12.5 gm PRN Q15MIN PRN IV SEE COMMENTS; Start 01/16/21 at 11:30 Lorazepam (Ativan Inj) 1 mg PRN Q4HRS PRN IVP ANXIETY / AGITATION Last administered on 01/18/21at 04:18; Start 01/16/21 at 12:45 Hydralazine HCl (Apresoline Inj) 20 mg PRN Q4HRS PRN IVP ELEVATED BP, SEE COMMENTS Last administered on 01/16/21at 13:30; Start 01/16/21 at 13:00 Nicardipine HCl 50 mg/Sodium Chloride 250 ml @ 25 mls/hr CONT PRN IV SEE I/O RECORD Last administered on 01/17/21at 04:25; Start 01/16/21 at 14:00; Stop 01/17/21 at 16:08; Status DC Aspirin (Ecotrin) 81 mg DAILY PO Last administered on 01/21/21 09:51; Start 01/17/21 at 13:00 Atorvastatin Calcium (Lipitor) 80 mg HS PO Last administered on 01/20/21at 21:07; Start 01/17/21 at 21:00 Carvedilol (Coreg) 12.5 mg BIDWMEALS PO Last administered on 01/21/21 09:50; Start 01/17/21 at 17:00 Clonidine HCl (Catapres) 0.2 mg BID PO Last administered on 01/21/21 09:50; Start 01/17/21 at 21:00 Clopidogrel Bisulfate (Plavix) 75 mg DAILY PO Last administered on 01/21/21 09:50; Start 01/17/21 at 13:00 EZETIMIBE (Zetia) 10 mg DAILY PO Last administered on 01/21/21 09:51; Start 01/17/21 at 13:00 Hydralazine HCl (Apresoline) 50 mg TID PO Last administered on 01/21/21 09:49; Start 01/17/21 at 14:00 Isosorbide Mononitrate (Imdur) 120 mg DAILY PO Last administered on 01/21/21 09:50; Start 01/17/21 at 13:00 Minoxidil (Loniten) 2.5 mg BID PO Last administered on 01/21/21 09:49; Start 01/17/21 at 21:00 Acetaminophen (Tylenol) 650 mg PRN Q6HRS PRN PO MILD PAIN / TEMP > 100.3'F Last administered on 01/18/21at 17:34; Start 01/17/21 at 20:45 Acetaminophen/ Hydrocodone Bitart (Lortab 7.5/325) 1 tab PRN Q6HRS PRN PO MODERATE-SEVERE PAIN Last administered on 01/21/21at 06:05; Start 01/17/21 at 20:45 Sodium Chloride 1,000 ml @ 1,000 mls/hr Q1H PRN IV hypotension; Start 01/18/21 at 11:30; Stop 01/18/21 at 17:29; Status DC Albumin Human 200 ml @ 200 mls/hr 1X PRN PRN IV Hypotension; Start 01/18/21 at 11:30; Stop 01/18/21 at 17:29; Status DC Sodium Chloride 1,000 ml @ 400 mls/hr Q2H30M PRN IV PATENCY; Start 01/18/21 at 11:30; Stop 01/18/21 at 23:29; Status DC Info (PHARMACY MONITORING -- do not chart) 1 each PRN DAILY PRN MC SEE COMMENTS; Start 01/18/21 at 11:30; Status UNV Info (PHARMACY MONITORING -- do not chart) 1 each PRN DAILY PRN MC SEE COMMENTS; Start 01/18/21 at 11:30 Fentanyl Citrate (Fentanyl 2ml Vial) 25 mcg PRN Q3HRS PRN IV PAIN; Start 01/18/21 at 14:00 Ondansetron HCl (Zofran Odt) 4 mg PRN Q6HRS PRN PO NAUSEA/VOMITING Last administered on 01/21/21at 06:04; Start 01/19/21 at 09:30 Oxycodone HCl (Roxicodone) 10 mg PRN Q4HRS PRN PO PAIN Last administered on 01/20/21at 01:00; Start 01/19/21 at 17:30 Simethicone (Gas-X) 80 mg PRN TID PRN PO GAS / BLOATING Last administered on 01/21/21at 06:04; Start 01/19/21 at 21:15 Lorazepam (Ativan) 0.5 mg PRN Q6HRS PRN PO ANXIETY / AGITATION Last administered on 01/21/21at 06:04; Start 01/19/21 at 21:15 Pantoprazole Sodium (Protonix) 40 mg DAILYAC PO ; Start 01/21/21 at 10:00; Stop 01/28/21 at 09:59 Active Scripts Active Lactulose 20 Gm/30 Ml Solution 20 Gm PO BID 5 Days Culturelle (Lactobacillus Rhamnosus Gg) 1 Each Cap.sprink 1 Cap PO BID Metoclopramide Hcl 5 Mg/1 Ml Vial 5 Mg IV PRN Q6HRS PRN Metoclopramide Hcl 5 Mg/1 Ml Vial 5 Mg IV [id number] Ondansetron Hcl 4 Mg/2 Ml Vial (Ondansetron Hcl/Pf) 4 Mg/2 Ml Vial 4 Mg IV PRN Q6HRS PRN Buspirone Hcl 5 Mg Tablet 5 Mg PO TID Quetiapine Fumarate 25 Mg Tablet 12.5 Mg PO PRN Q6HRS PRN Quetiapine Fumarate 25 Mg Tablet 25 Mg PO QHS Sertraline Hcl 50 Mg Tablet 50 Mg PO DAILY Hydrocodone-Apap 7.5-325 (Hydrocodone Bit/Acetaminophen) 1 Each Tablet 1 Tab PO PRN Q8HRS PRN Fentanyl 0.05 Mg/Ml Vial (Fentanyl Citrate/Pf) 50 Mcg/1 Ml Vial 50 Mcg IV PRN Q4HRS PRN [Darbepoetin Ty In Polysorbat] 60 MCG/0.3 ML Disp.syrin 60 Mcg SQ WEEKLYHS Zyvox (Linezolid) 600 Mg Tablet 600 Mg PO BID Vitamin D3 (Cholecalciferol (Vitamin D3)) 1,000 Unit Tablet 1 Tab PO DAILY [Calcium Acetate] 667 MG Capsule 1,334 Mg PO TIDWMEALS Mapap (Acetaminophen) 500 Mg Tablet 1,000 Mg PO TID Carvedilol (Carvedilol) 12.5 Mg Tablet 12.5 Mg PO BIDWMEALS Minoxidil 2.5 Mg Tablet 2.5 Mg PO BID Isosorbide Mononitrate Er (Isosorbide Mononitrate) 30 Mg Tab.er.24h 120 Mg PO DAILY Montelukast Sodium Tablet (Montelukast Sodium) 10 Mg Tablet 10 Mg PO QHS Polyethylene Glycol 3350 2,500 Gm Powder 17 Gm PO DAILY Novolog Flexpen (Insulin Aspart) 100 Unit/1 Ml Insuln.pen 0 Units SQ TIDAC Take sub q tid ac: BS 151-200=2 unit, 201-250=3 unit, [id number], BS 301-350=6 unit, BS 351-400 =8 unit. BS>401 call MD Renetta Bsuch 10,000 Units Capsule (Lipase/Protease/Amylase) 1 Each Capsule. 2 Cap PO TIDWMEALS TAke 2 cap tid with meals Nephro-Donny Tablet (Folic Acid/Vitamin B Comp W-C) 0.8 Mg Tablet 1 Tab PO DAILY Benadryl (Diphenhydramine Hcl) 25 Mg Capsule 25 Mg PO PRN Q6HRS PRN Reported Lactulose 10 Gm Packet 10 Gm PO Q6HRS Lidocaine 15 Gm Cream..g. 1 Karma TP TID PRN 30 Days Isosorbide Mononitrate Er (Isosorbide Mononitrate) 60 Mg Tab.er.24h 1 Tab PO DAILY Vitamin A 2,400 Mcg Capsule 1,250 Mcg PO WEEKLY Hydrocodone-Apap 10-325 (Hydrocodone Bit/Acetaminophen) 1 Tab Tablet 1 Tab PO PRN Q6HRS PRN Ultram (Tramadol Hcl) 50 Mg Tablet 1 Tab PO BID MDD 2 Tablet(s) 30 Days Hydralazine Hcl 50 Mg Tablet 1 Tab PO TID Acetaminophen 325 Mg Tablet 2 Tab PO Q6HRS PRN 30 Days Glucose Gel (Dextrose) 38 Gm Gel..gram. 15 Gm PO PRN Sertraline Hcl 100 Mg Tablet 100 Mg PO DAILY Glucagon Emergency Kit (Glucagon,Human Recombinant) 1 Mg Kit 1 Mg IM PRN Senna Plus Tablet (Sennosides/Docusate Sodium) 1 Each Tablet 2 Tab PO QHS 14 Days Zetia (Ezetimibe) 10 Mg Tablet 1 Tab PO DAILY 30 Days Renvela (Sevelamer Carbonate) 800 Mg Tablet 800 Mg PO TIDWMEALS Escitalopram Oxalate 10 Mg Tablet 1 Tab PO DAILY Lyrica (Pregabalin) 50 Mg Capsule 25 Mg PO QHS [creon] 1 Cap PO TIDAC Oxycodone HCl 5 Mg Tablet 5 Mg PO Q8HRS PRN [zenpep] 10 Mg PO TIDAC Clonidine Hcl 0.2 Mg Tablet 0.2 Mg PO BID Zofran (Ondansetron Hcl) 4 Mg Tablet 1 Tab PO Q4HRS PRN Sensipar (Cinacalcet Hcl) 30 Mg Tablet 1 Tab PO DAILY 30 Days Mirtazapine 15 Mg Tablet 1 Tab PO QHS Atorvastatin Calcium 40 Mg Tablet 80 Mg PO HS Minoxidil 2.5 Mg Tablet 2.5 Mg PO DAILY Amlodipine Besylate 10 Mg Tablet 10 Mg PO DAILY Lidocaine PATCH (Lidocaine) 1 Each Adh..patch 1 Each TP DAILY REMOVE AFTER 12 HOURS Proair Hfa Inhaler (Albuterol Sulfate) 8.5 Gm Hfa.aer.ad 2 Puff INH PRN Q6HRS PRN Nitrostat (Nitroglycerin) 0.4 Mg Tab.subl 0.4 Mg SL PRN Q5MIN PRN Plavix (Clopidogrel Bisulfate) 75 Mg Tablet 1 Tab PO DAILY Zoloft (Sertraline Hcl) 100 Mg Tablet 1 Tab PO DAILY Pantoprazole Sodium (Pantoprazole Sodium) 40 Mg Tablet. 1 Tab PO DAILY Losartan Potassium 100 Mg Tablet 100 Mg PO DAILY Aspir 81 (Aspirin) 81 Mg Tablet.dr 81 Mg PO DAILY Vitals/I & O Vital Sign - Last 24 Hours 01/20/21 01/20/21 01/20/21 01/20/21 11:00 13:41 13:42 15:00 Temp 95.7 95.7 Pulse 64 64 61 Resp 20 20 20 B/P (MAP) 129/48 (75) 129/48 136/48 (77) Pulse Ox 97 97 96 O2 Delivery Room Air Room Air Room Air O2 Flow Rate 2.0 01/20/21 01/20/21 01/20/21 01/20/21 15:03 17:23 19:00 20:00 Temp 98.7 98.7 Pulse 61 64 Resp 20 18 B/P (MAP) 136/48 147/62 (90) Pulse Ox 97 94 O2 Delivery Room Air Room Air Room Air O2 Flow Rate 2.0 01/20/21 01/20/21 01/20/21 01/20/21 21:06 21:06 21:07 21:09 Pulse 64 64 64 Resp 18 B/P (MAP) 147/62 147/62 147/62 Pulse Ox 94 O2 Delivery Room Air O2 Flow Rate 2.0 01/20/21 01/21/21 01/21/21 01/21/21 23:00 03:00 06:53 09:49 Temp 98.5 98.0 97.5 98.5 98.0 97.5 Pulse 58 59 64 64 Resp 19 18 19 B/P (MAP) 110/48 (68) 154/72 (99) 146/54 (84) 146/54 Pulse Ox 93 95 92 O2 Delivery Room Air Room Air Room Air 01/21/21 01/21/21 01/21/21 01/21/21 09:49 09:50 09:50 09:50 Pulse 64 64 64 64 B/P (MAP) 146/54 146/54 146/54 146/54 Intake and Output 01/20/21 01/20/21 01/21/21 15:00 23:00 07:00 Intake Total 250 ml 200 ml 0 ml Balance 250 ml 200 ml 0 ml Justicifation of Admission Dx: Justifications for Admission: Justification of Admission Dx: N/A MARINA REYNOSO MD Jan 21, 2021 10:20
[2021-01-21 11:00] VITALS: BP 171/71
--- NOTE | 2021-01-21 11:29 | NUR ---
SS following up with discharge planning. SS reviewed pt chart and discussed with pt RN. Pt is currently on room air. COVID19 positive. PT/OT ordered. Probable need for assisted unit pending PT/OT evaluations. SS spoke with Carol at [facility]. Carol reported that pt can return to [facility] for treatment on 01/28/2021. Carol reported that if pt is discharged prior to that time she will be temporarily treated at [facility]. Pt having hemodialysis today. SS contacted pt's daughter, Maria Esther, , and pt's brother, Ronnie, , and [facility] return call to discuss discharge planning and assisted unit. SS will continue to follow for discharge planning.
--- NOTE | 2021-01-21 11:56 | PDOC ---
Renal-Progress Notes Subjective Notes Notes NO NEW COMPLAINTS History of Present Illness Hx of present illness IMPROVING BUT STILL CONFUSED Vitals Vitals Vital Signs Date Time Temp Pulse Resp B/P (MAP) Pulse Ox O2 Delivery O2 Flow Rate FiO2 01/21/21 11:00 97.5 70 18 171/71 (104) 96 Room Air 97.5 01/21/21 07:00 2.0 Weight Weight [ ] I.O. Intake and Output Intake and Output 01/21/21 07:00 Intake Total 450 ml Balance 450 ml Intake Oral 450 ml Labs Labs Laboratory Tests Test 01/20/21 17:01 01/20/21 21:26 01/21/21 04:45 01/21/21 08:01 Glucose (Fingerstick) 83 mg/dL (70-99) 86 mg/dL (70-99) 80 mg/dL (70-99) Sodium Level 132 mmol/L (136-145) Potassium Level 5.2 mmol/L (3.5-5.1) Chloride Level 91 mmol/L (98-107) Carbon Dioxide Level 23 mmol/L (21-32) Anion Gap 18 (6-14) Blood Urea Nitrogen 76 mg/dL (7-20) Creatinine 11.1 mg/dL (0.6-1.0) Estimated GFR (Cockcroft-Gault) 4.3 Glucose Level 91 mg/dL (70-99) Calcium Level 8.8 mg/dL (8.5-10.1) Review of Systems Constitutional: yes: other (CONFUSED) Physical Exam General Appearance: no apparent distress Skin: warm Respiratory: bilateral CTA Heart: S1S2 Abdomen: soft, bowel sounds present Genitourinary: bladder flat Extremities: pulses present Musculoskeletal: Osteoarthritis Assessment Assessment IMP COVID 19 POS [id number] ARM BC AVF HTN EMERGENCY-BETTER ENCEPHALOPATHY DUE TO ABOVE ANEMIA FLUID OVERLOAD ACUTE ON CHRONIC DIASTOLIC CHF FEVER CAD WITH CABG PLAN EDGAR ON HOLD CONT HOME MEDS RENAL DIET ENC COMPLIANCE ID EVAL AND TX HD TODAY UF TO TW HAVE DISCUSSED CASE WITH DR DANG SW WILL NEED TO COORDINATE WITH [employer] ABOUT COHORTING HER WILL FOLLOW TING REYNA MD Jan 21, 2021 11:56
[2021-01-21] MEDS ORDERED: DIALYSIS PATIENT. MC PRN ×2 (12:45)
[2021-01-21] MEDS ORDERED: ACETAMINOPHEN 500 MG TABLET PO PRN (12:45)
[2021-01-21] MEDS ORDERED: diphenhydrAMINE 50 MG/ML VIAL IV PRN ×2 (12:45)
[2021-01-21] MEDS ORDERED: ALBUMIN HUMAN 25% 200 ML IV PRN (12:45)
[2021-01-21] MEDS ORDERED: IV NORMAL SALINE 1000ML BAG 1,000 ML IV PRN ×2 (12:45)
[2021-01-21] MEDS ORDERED: LIDOCAINE 1% PF 2 ML VIAL. INJ PRN (12:45)
[2021-01-21] MEDS: fentaNYL PF VIAL 100 MCG/2 ML VIAL IV PRN (16:15)
[2021-01-21 19:00] VITALS: BP 156/62
[2021-01-21] MEDS ORDERED: BISACODYL 10 MG SUPP.RECT. PR PRN (19:30)
[2021-01-21] MEDS ORDERED: SENNOSIDES/DOCUSATE 8.6/50MG TABLET. PO PRN (19:30)
[2021-01-21] MEDS: oxyCODONE IR 5 MG TABLET PO PRN (20:06)
--- NOTE | 2021-01-21 20:37 | RAD ---
Abdomen AP portable at 2001: Reason for examination: Covid positive. Abdominal pain. C. difficile. Confusion. There is no gross organomegaly. Psoas muscles are symmetric. The bowel gas pattern is nonspecific and nonobstructive. Postoperative changes are present seen from previous cholecystectomy. There are vasc ular calcification seen in the pelvis. No calcifications are seen along the course of the kidneys or ureters. No acute bony abnormalities are seen. IMPRESSION: Nonspecific nonobstructive bowel gas pattern. Vascular calcifications in the pelvis. Electronically signed by: Rosanne Sorensen MD (01/21/2021 8:34 PM) MICHAEL
[2021-01-21 23:00] VITALS: BP 129/47
[2021-01-21] MEDS: ATORVASTATIN CALCIUM 40 MG TABLET. PO SCH (23:26)
[2021-01-22 03:00] VITALS: BP 179/62
[2021-01-22] MEDS: CALCIUM CARBONATE 500 MG TAB.CHEW PO PRN ×2 (03:14→09:31)
[2021-01-22] MEDS: oxyCODONE IR 5 MG TABLET PO PRN ×2 (03:14→22:55)
[2021-01-22] MEDS: LORazepam 0.5 MG TABLET PO PRN ×3 (03:14→22:55)
[2021-01-22 06:39] VITALS: BP 194/66
[2021-01-22] MEDS: INSULIN LISPRO 300 UNITS/3 ML VIAL. SQ SCH ×3 (08:00→17:00)
[2021-01-22 08:02] LABS: BASO % 0 % (0-3); EOS % 0 % (0-3); LYMPH # 0.2 x10^3/uL (1.0-4.8); LYMPH % 2 % (24-48); MEAN CORPUSCULAR HEMOGLOBIN 31 pg (25-35); MEAN CORPUSCULAR HGB CONC 33 g/dL (31-37); MEAN CORPUSCULAR VOLUME 94 fL (79-100); MONO # 0.6 x10^3/uL (0.0-1.1); MONO % 6 % (0-9); NEUT # 8.9 x10^3/uL (1.8-7.7); NEUT % 92 % (31-73); PLATELET COUNT 150 x10^3/uL (140-400); RED BLOOD COUNT 2.87 x10^6/uL (3.50-5.40); RED CELL DISTRIBUTION WIDTH 16.2 % (11.5-14.5); WHITE BLOOD COUNT 9.6 x10^3/uL (4.0-11.0)
[2021-01-22 08:33] LABS: ALBUMIN 3.5 g/dL (3.4-5.0); ALBUMIN/GLOBULIN RATIO 1.1 (1.0-1.7); CALCIUM 8.9 mg/dL (8.5-10.1); CREATININE 7.7 mg/dL (0.6-1.0); GFR 6.5; POTASSIUM 4.3 mmol/L (3.5-5.1); TOTAL BILIRUBIN 0.6 mg/dL (0.2-1.0); TOTAL PROTEIN 6.6 g/dL (6.4-8.2)
--- NOTE | 2021-01-22 09:23 | PDOC ---
IM PROGRESS NOTES- Subjective Subjective complaints of pain,headaches,abdominal pain. Complaints of nausea. Vomits occasionally. Continues to have problems with nausea, vomiting, poor oral intake and confusion and agitation. Pulled out IV and does not want telemetry monitoring. Objective Vitals/I&O Vital Signs Date Time Temp Pulse Resp B/P (MAP) Pulse Ox O2 Delivery O2 Flow Rate FiO2 01/22/21 06:39 98.8 76 19 194/66 (108) 98 Room Air 98.8 01/21/21 20:06 2.0 I & O 01/21/21 01/21/21 01/22/21 15:00 23:00 07:00 Intake Total 444 ml 50 ml 0 ml Balance 444 ml 50 ml 0 ml Physical Exam Physical Exam General Appearance - alert and in no distress Chest - decreased breath sounds at bases Heart - S1 and S2 normal Abdomen - soft, non tender Neurological - alert and oriented Musculoskeletal - generalized weakness Extremities - no edema Labs Laboratory Tests Test 01/21/21 12:14 01/21/21 20:36 01/22/21 07:25 01/22/21 08:05 Glucose (Fingerstick) 85 mg/dL (70-99) 75 mg/dL (70-99) 84 mg/dL (70-99) White Blood Count 9.6 x10^3/uL (4.0-11.0) Red Blood Count 2.87 x10^6/uL (3.50-5.40) L Hemoglobin 9.0 g/dL (12.0-15.5) L Hematocrit 27.0 % (36.0-47.0) L Mean Corpuscular Volume 94 fL (79-100) Mean Corpuscular Hemoglobin 31 pg (25-35) Mean Corpuscular Hemoglobin Concent 33 g/dL (31-37) Red Cell Distribution Width 16.2 % (11.5-14.5) H Platelet Count 150 x10^3/uL (140-400) Neutrophils (%) (Auto) 92 % (31-73) H Lymphocytes (%) (Auto) 2 % (24-48) L Monocytes (%) (Auto) 6 % (0-9) Eosinophils (%) (Auto) 0 % (0-3) Basophils (%) (Auto) 0 % (0-3) Neutrophils # (Auto) 8.9 x10^3/uL (1.8-7.7) H Lymphocytes # (Auto) 0.2 x10^3/uL (1.0-4.8) L Monocytes # (Auto) 0.6 x10^3/uL (0.0-1.1) Eosinophils # (Auto) 0.0 x10^3/uL (0.0-0.7) Basophils # (Auto) 0.0 x10^3/uL (0.0-0.2) Sodium Level 139 mmol/L (136-145) Potassium Level 4.3 mmol/L (3.5-5.1) Chloride Level 94 mmol/L (98-107) L Carbon Dioxide Level 26 mmol/L (21-32) Anion Gap 19 (6-14) H Blood Urea Nitrogen 45 mg/dL (7-20) H Creatinine 7.7 mg/dL (0.6-1.0) H Estimated GFR (Cockcroft-Gault) 6.5 BUN/Creatinine Ratio 6 (6-20) Glucose Level 84 mg/dL (70-99) Calcium Level 8.9 mg/dL (8.5-10.1) Phosphorus Level 8.0 mg/dL (2.6-4.7) H Total Bilirubin 0.6 mg/dL (0.2-1.0) Aspartate Amino Transferase (AST) 34 U/L (15-37) Alanine Aminotransferase (ALT) 22 U/L (14-59) Alkaline Phosphatase 75 U/L (46-116) Total Protein 6.6 g/dL (6.4-8.2) Albumin 3.5 g/dL (3.4-5.0) Albumin/Globulin Ratio 1.1 (1.0-1.7) Laboratory Tests 01/22/21 07:25 Laboratory Tests 01/22/21 07:25 Meds Current Medications Medications (Trade) Dose Ordered Sig/Srinath Route PRN Reason Start Time Stop Time Status Last Admin Dose Admin Calcium Carbonate/ Glycine (Tums) 500 mg PRN AFTMEALHC PRN PO INDIGESTION 01/22/21 03:15 01/22/21 03:14 Assessment Assessment 1. Acute metabolic encephalopathy, etiology not clear. The patient has had similar episodes in the past. This may be due to acute hypertensive crisis. 2. Acute hypertensive crisis. This may be also contributing to the acute metabolic encephalopathy. 3. End-stage renal disease on hemodialysis. 4. Anemia. 5. Coronary artery disease. 6. Diastolic congestive heart failure. 7. Fever: The patient had fever of 103. This may be due to her agitation, but sepsis needs to be ruled out. Lactic acid level is normal. 8. 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 9. 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 10. Physical deconditioning. 11. Status post coronary artery bypass grafting. 12. Peripheral artery disease. 13. COVID-19 infection. Rapid antigen test was negative but PCR is positive. Patient spiked fever once. PLAN: 1. Acute metabolic encephalopathy. Continue to give her lorazepam as needed. Monitor closely in the Intensive Care Unit. Consult Dr. Martinez for neurology evaluation and management. Likely due to hypertensive crisis.Mental status is improving. 2. Acute hypertensive crisis. Patient was initially treated with Cardene IV drip. Consult Dr. Leahy for cardiology evaluation and management. 3. Elevated troponin. This may be due to demand ischemia and also end-stage renal disease may be contributing. 4. End-stage renal disease, on hemodialysis. 5. Coronary artery disease. 6. Diastolic congestive heart failure. 7. Physical deconditioning. 8. Asthma. 9. Gastroesophageal reflux disease. 10. Hyperlipidemia. 11. Severe pulmonary hypertension. 12. 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 13. History of depression. 14. 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 Monitor blood sugar. 15. History of secondary hyperparathyroidism. 16. Marijuana abuse Plan: End-stage renal disease on hemodialysis - consult Dr. Hernandez for management of end-stage renal disease and hemodialysis. Condition treatment discussed with the patient's brother at bedside in the Emergency Room. Prognosis of this patient is extremely poor due to her multiple medical problems. As patient remained stable patient was admitted to CVC unit. Acute hypertensive crisis- patient is off Cardene drip. Labs reviewed. As needed IV hydralazine. Pressure has again increased to 194/66. The patient received dialysis only for 1-1/2 hours yesterday because she got very agitated, confused and started thrashing. COVID-19 infection. SARS-CoV-2 PCR test is positive. This may be also contributing to patient's poor appetite, body aches and confusion.I will also consult Dr. Ray Nino for Infectious Disease evaluation and management because of her fever of 103 degrees Fahrenheit. Her chest x-ray, urinalysis as well as SARS-CoV-2 antigen test is negative. Consult Dr. Nino for infectious disease evaluation and management. No need for antibiotics at this time. Patient is not on oxygen Acute hypertensive crisis-patient responded to Cardene drip ,now she is stable on oral medications. Acute metabolic encephalopathy-this may be multifactorial including due to acute hypertensive crisis, COVID-19 infection and other factors. She sitting up in bed naked. I will discontinue telemetry monitoring and IV at this time. Encouraged her to drink Nepro. She threw the tray this morning. Continue treatment for acute metabolic encephalopathy. Start Zofran for nausea. Patient is not ready yet but whenever she is ready she will need to go to a special dialysis unit because she has COVID-19 infection. Prognosis is poor due to her multiple medical problems.s/s likely due to Covid- [address] Nino Vomiting-start pantoprazole. Encourage oral intake. Discussed with staff they also offered Nepro for her to drink but she is not drinking. Discussed with Dr. Youngblood. GI consult. Detailed message left for patient's daughter Kerri Sweeney on phone on January 21, 2021 about patient's condition treatment and options. Discussed with social service director. She will eventually need to go to a skilled n ursing unit for further management. Plan Plan For more details regarding further plans, please refer to the orders. Justifications for Admission Other Justification GAURAV DANG MD Jan 22, 2021 09:23
[2021-01-22] MEDS: EZETIMIBE 10 MG TABLET. PO SCH (09:32)
[2021-01-22] MEDS: ISOSORBIDE MONONITRATE ER 30 MG TAB.ER.24H PO SCH (09:32)
[2021-01-22] MEDS: CARVEDILOL 12.5 MG TABLET. PO SCH ×2 (09:34→18:34)
[2021-01-22] MEDS: ASPIRIN ENTERIC COATED 81 MG TABLET.DR. PO SCH (09:34)
[2021-01-22] MEDS: MINOXIDIL 2.5 MG TABLET PO SCH ×2 (09:35→22:54)
[2021-01-22] MEDS: CLOPIDOGREL BISULFATE 75 MG TABLET PO SCH (09:35)
[2021-01-22] MEDS: PANTOPRAZOLE 40 MG TABLET.DR. PO SCH (09:37)
[2021-01-22] MEDS: cloNIDine HCL 0.2 MG TABLET PO SCH ×2 (09:37→22:55)
--- NOTE | 2021-01-22 09:51 | PDOC2 ---
GI CONSULT Date of Service: DATE: 01/22/21 TIME: 09:51 Reason For Consult: abd pain, emesis HPI: HPI: 60 y/o female who we've seen in the past. Admitted w/ COVID and encephalopathy. Poor historian - appears calm, then thrashes in bed w/ abdominal pain, yelling, then calms down. Reports normal stool last night and bilious emesis this morning. Denies bleeding. Says she takes hydrocodone and Zofran for GI symptoms at home. Breakfast tray thrown on floor. H/o GERD and chronic abd pain. EGD 2017: visually normal w/o biopsies. Colonoscopy 2017: normal. GES 2017: delayed emptying w/ T 1/2 215 min. MRCP 2017: unrevealing. S/p cholecystectomy. Occluded celiac artery s/p release/bypass. ?H/o Hep C - serologies neg 2017. Previously on PPI, Reglan, and Zenpep - unclear if still taking any/all of these. +marijuana PMH: PMH: CHF, HTN, HLD, STEMI, pulm HTN, asthma, pneumonia, CVA, ESRD no HD, anemia, depression, DM, hyperparathyroidism cholecystectomy, partial hysterectomy, tubal ligation, CABG, aortoceliac bypass, LUE AV shunt FH: Family History: CAD, DM Social History: Smoke: Quit ALCOHOL: none Drugs: Marijuana ROS: Difficult to obtain. Vitals: Vitals: Vital Signs Date Time Temp Pulse Resp B/P (MAP) Pulse Ox O2 Delivery O2 Flow Rate FiO2 01/22/21 09:37 76 194/66 01/22/21 06:39 98.8 19 98 Room Air 98.8 01/21/21 20:06 2.0 Labs: Labs: Laboratory Tests Test 01/21/21 12:14 01/21/21 20:36 01/22/21 07:25 01/22/21 08:05 Glucose (Fingerstick) 85 mg/dL (70-99) 75 mg/dL (70-99) 84 mg/dL (70-99) White Blood Count 9.6 x10^3/uL (4.0-11.0) Red Blood Count 2.87 x10^6/uL (3.50-5.40) Hemoglobin 9.0 g/dL (12.0-15.5) Hematocrit 27.0 % (36.0-47.0) Mean Corpuscular Volume 94 fL (79-100) Mean Corpuscular Hemoglobin 31 pg (25-35) Mean Corpuscular Hemoglobin Concent 33 g/dL (31-37) Red Cell Distribution Width 16.2 % (11.5-14.5) Platelet Count 150 x10^3/uL (140-400) Neutrophils (%) (Auto) 92 % (31-73) Lymphocytes (%) (Auto) 2 % (24-48) Monocytes (%) (Auto) 6 % (0-9) Eosinophils (%) (Auto) 0 % (0-3) Basophils (%) (Auto) 0 % (0-3) Neutrophils # (Auto) 8.9 x10^3/uL (1.8-7.7) Lymphocytes # (Auto) 0.2 x10^3/uL (1.0-4.8) Monocytes # (Auto) 0.6 x10^3/uL (0.0-1.1) Eosinophils # (Auto) 0.0 x10^3/uL (0.0-0.7) Basophils # (Auto) 0.0 x10^3/uL (0.0-0.2) Sodium Level 139 mmol/L (136-145) Potassium Level 4.3 mmol/L (3.5-5.1) Chloride Level 94 mmol/L (98-107) Carbon Dioxide Level 26 mmol/L (21-32) Anion Gap 19 (6-14) Blood Urea Nitrogen 45 mg/dL (7-20) Creatinine 7.7 mg/dL (0.6-1.0) Estimated GFR (Cockcroft-Gault) 6.5 BUN/Creatinine Ratio 6 (6-20) Glucose Level 84 mg/dL (70-99) Calcium Level 8.9 mg/dL (8.5-10.1) Phosphorus Level 8.0 mg/dL (2.6-4.7) Total Bilirubin 0.6 mg/dL (0.2-1.0) Aspartate Amino Transf (AST/SGOT) 34 U/L (15-37) Alanine Aminotransferase (ALT/SGPT) 22 U/L (14-59) Alkaline Phosphatase 75 U/L (46-116) Total Protein 6.6 g/dL (6.4-8.2) Albumin 3.5 g/dL (3.4-5.0) Albumin/Globulin Ratio 1.1 (1.0-1.7) Allergies: Coded Allergies: amitriptyline (Verified Allergy, Intermediate, 11/09/16) hydromorphone (Verified Allergy, Intermediate, LORTAB OK AT HOME, 05/05/17) lisinopril (Verified Allergy, Intermediate, 11/09/16) metformin (Verified Allergy, Intermediate, 11/09/16) I S O L A T I O N *CONTACT* (Verified Allergy, Unknown, 11/09/16) mrsa Medications: Current Medications Medications (Trade) Dose Ordered Sig/Srinath Route PRN Reason Start Time Stop Time Status Last Admin Dose Admin Pantoprazole Sodium (Protonix) 40 mg DAILYAC PO 01/21/21 10:00 01/28/21 09:59 01/22/21 09:37 Calcium Carbonate/ Glycine (Tums) 500 mg PRN AFTMEALHC PRN PO INDIGESTION 01/22/21 03:15 01/22/21 09:31 Imaging: Imaging: CXR IMPRESSION: Cardiomegaly and mild pulmonary vascular congestion. Head CT Impression: 1. No acute intracranial hemorrhage. 2. Moderate nonspecific white matter changes, most often due to chronic microvascular ischemia. Differential considerations include demyelinating disease or vasculitis. Overall findings are progressed compared to 2018. If persistent clinical concern for acute ischemia, MRI can better evaluate. 3. Chronic right basal ganglia and bilateral thalamic lacunar infarcts. KUB IMPRESSION: Nonspecific nonobstructive bowel gas pattern. Vascular calcifications in the pelvis. PE: GEN: restless HEENT: Atraumatic, PERRLA LUNGS: room air HEART: RRR ABD: non-distended, soft, difficult to listen to bowel sounds w/ yelling EXTREMITY: No edema SKIN: No rashes, no jaundice NEURO/PSYCH: awake and alert, anxious, thrashing around A/P: A/P: COVID, encephalopathy Chronic anemia - stable Chronic abd pain, GERD, gastroparesis CRC screen - UTD S/p cholecystectomy S?p aortoceliac bypass +marijuana CAD on Plavix and ASA, ESRD on HD, h/o CVAs, DM, HTN -- Continue PPI - change to IV for now. Try IV Reglan PRN. Diet as able. ALL GONZALEZ Jan 22, 2021 09:51
--- NOTE | 2021-01-22 11:14 | PDOC ---
Renal-Progress Notes Subjective Notes Notes LESS CONFUSED History of Present Illness Hx of present illness NO ACUTE CHANGES Vitals Vitals Vital Signs Date Time Temp Pulse Resp B/P (MAP) Pulse Ox O2 Delivery O2 Flow Rate FiO2 01/22/21 09:37 76 194/66 01/22/21 06:39 98.8 19 98 Room Air 98.8 01/21/21 20:06 2.0 Weight Weight [ ] I.O. Intake and Output Intake and Output 01/22/21 07:00 Intake Total 494 ml Balance 494 ml Intake Oral 494 ml Labs Labs Laboratory Tests Test 01/21/21 12:14 01/21/21 20:36 01/22/21 07:25 01/22/21 08:05 Glucose (Fingerstick) 85 mg/dL (70-99) 75 mg/dL (70-99) 84 mg/dL (70-99) White Blood Count 9.6 x10^3/uL (4.0-11.0) Red Blood Count 2.87 x10^6/uL (3.50-5.40) Hemoglobin 9.0 g/dL (12.0-15.5) Hematocrit 27.0 % (36.0-47.0) Mean Corpuscular Volume 94 fL (79-100) Mean Corpuscular Hemoglobin 31 pg (25-35) Mean Corpuscular Hemoglobin Concent 33 g/dL (31-37) Red Cell Distribution Width 16.2 % (11.5-14.5) Platelet Count 150 x10^3/uL (140-400) Neutrophils (%) (Auto) 92 % (31-73) Lymphocytes (%) (Auto) 2 % (24-48) Monocytes (%) (Auto) 6 % (0-9) Eosinophils (%) (Auto) 0 % (0-3) Basophils (%) (Auto) 0 % (0-3) Neutrophils # (Auto) 8.9 x10^3/uL (1.8-7.7) Lymphocytes # (Auto) 0.2 x10^3/uL (1.0-4.8) Monocytes # (Auto) 0.6 x10^3/uL (0.0-1.1) Eosinophils # (Auto) 0.0 x10^3/uL (0.0-0.7) Basophils # (Auto) 0.0 x10^3/uL (0.0-0.2) Sodium Level 139 mmol/L (136-145) Potassium Level 4.3 mmol/L (3.5-5.1) Chloride Level 94 mmol/L (98-107) Carbon Dioxide Level 26 mmol/L (21-32) Anion Gap 19 (6-14) Blood Urea Nitrogen 45 mg/dL (7-20) Creatinine 7.7 mg/dL (0.6-1.0) Estimated GFR (Cockcroft-Gault) 6.5 BUN/Creatinine Ratio 6 (6-20) Glucose Level 84 mg/dL (70-99) Calcium Level 8.9 mg/dL (8.5-10.1) Phosphorus Level 8.0 mg/dL (2.6-4.7) Total Bilirubin 0.6 mg/dL (0.2-1.0) Aspartate Amino Transf (AST/SGOT) 34 U/L (15-37) Alanine Aminotransferase (ALT/SGPT) 22 U/L (14-59) Alkaline Phosphatase 75 U/L (46-116) Total Protein 6.6 g/dL (6.4-8.2) Albumin 3.5 g/dL (3.4-5.0) Albumin/Globulin Ratio 1.1 (1.0-1.7) Review of Systems Constitutional: yes: other (CONFUSED) Physical Exam General Appearance: no apparent distress Skin: warm Respiratory: bilateral CTA Heart: S1S2 Abdomen: soft, bowel sounds present Genitourinary: bladder flat Extremities: pulses present Musculoskeletal: Osteoarthritis Assessment Assessment IMP COVID 19 POS [id number] ARM BC AVF HTN [id number] ENCEPHALOPATHY DUE TO ABOVE ANEMIA FLUID OVERLOAD ACUTE ON CHRONIC DIASTOLIC CHF FEVER CAD WITH CABG PLAN EDGAR ON HOLD CONT HOME MEDS RENAL DIET ENC COMPLIANCE ID EVAL AND TX HD TTS HAVE DISCUSSED CASE WITH DR DANG WILL FOLLOW TING REYNA MD Jan 22, 2021 11:14
--- NOTE | 2021-01-22 11:33 | PDOC ---
PROGRESS NOTES Date of Service DATE: 01/22/21 TIME: 11:32 Assessment Problems Medical Problems: (1) Altered mental status Status: Acute (2) ESRD (end stage renal disease) on dialysis Status: Acute (3) Hypertensive urgency Status: Acute Encephalopathy, hypertensive, also role of COVID 19 COVID 19 History of strokes including chronic right basal ganglia and bilateral thalamic lacunar infarcts on the CT. CT also shows white matter disease consistent with hypertension and diabetes, I doubt that she also has demyelinating disease. Elevated troponin, renal failure, anemia, coronary artery disease, diastolic congestive heart failure, fever. 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, deconditioning, status-post coronary artery bypass grafting, peripheral artery disease Heartburn, nausea, vomiting Plan Treat medical issues Holding on additional neurological studies such as MRI or lumbar puncture Subjective none Objective Vital Signs Date Time Temp Pulse Resp B/P (MAP) Pulse Ox O2 Delivery O2 Flow Rate FiO2 01/22/21 09:37 76 194/66 01/22/21 06:39 98.8 19 98 Room Air 98.8 01/21/21 20:06 2.0 Intake and Output 01/22/21 07:00 Intake Total 494 ml Balance 494 ml Intake Oral 494 ml PHYSICAL EXAM Alert, naked in bed, breakfast tray is on the floor, knows location but not date PERRL. EOMI. CN: no focal findings. Muscle tone: normal. Muscle strength: 4/5, weaker on the left DTR: 0-1+ Plantar reflex: flexor Gait: not examined in bed. Sensory exam: Stocking loss. No cerebellar signs elicited. Review of Relevant I have reviewed the following items richard (where applicable) has been applied. Labs Laboratory Tests Test 01/20/21 11:37 01/20/21 17:01 01/20/21 21:26 01/21/21 04:45 Glucose (Fingerstick) 83 mg/dL (70-99) 83 mg/dL (70-99) 86 mg/dL (70-99) Sodium Level 132 mmol/L (136-145) Potassium Level 5.2 mmol/L (3.5-5.1) Chloride Level 91 mmol/L (98-107) Carbon Dioxide Level 23 mmol/L (21-32) Anion Gap 18 (6-14) Blood Urea Nitrogen 76 mg/dL (7-20) Creatinine 11.1 mg/dL (0.6-1.0) Estimated GFR (Cockcroft-Gault) 4.3 Glucose Level 91 mg/dL (70-99) Calcium Level 8.8 mg/dL (8.5-10.1) Test 01/21/21 08:01 01/21/21 12:14 01/21/21 20:36 01/22/21 07:25 Glucose (Fingerstick) 80 mg/dL (70-99) 85 mg/dL (70-99) 75 mg/dL (70-99) White Blood Count 9.6 x10^3/uL (4.0-11.0) Red Blood Count 2.87 x10^6/uL (3.50-5.40) Hemoglobin 9.0 g/dL (12.0-15.5) Hematocrit 27.0 % (36.0-47.0) Mean Corpuscular Volume 94 fL (79-100) Mean Corpuscular Hemoglobin 31 pg (25-35) Mean Corpuscular Hemoglobin Concent 33 g/dL (31-37) Red Cell Distribution Width 16.2 % (11.5-14.5) Platelet Count 150 x10^3/uL (140-400) Neutrophils (%) (Auto) 92 % (31-73) Lymphocytes (%) (Auto) 2 % (24-48) Monocytes (%) (Auto) 6 % (0-9) Eosinophils (%) (Auto) 0 % (0-3) Basophils (%) (Auto) 0 % (0-3) Neutrophils # (Auto) 8.9 x10^3/uL (1.8-7.7) Lymphocytes # (Auto) 0.2 x10^3/uL (1.0-4.8) Monocytes # (Auto) 0.6 x10^3/uL (0.0-1.1) Eosinophils # (Auto) 0.0 x10^3/uL (0.0-0.7) Basophils # (Auto) 0.0 x10^3/uL (0.0-0.2) Sodium Level 139 mmol/L (136-145) Potassium Level 4.3 mmol/L (3.5-5.1) Chloride Level 94 mmol/L (98-107) Carbon Dioxide Level 26 mmol/L (21-32) Anion Gap 19 (6-14) Blood Urea Nitrogen 45 mg/dL (7-20) Creatinine 7.7 mg/dL (0.6-1.0) Estimated GFR (Cockcroft-Gault) 6.5 BUN/Creatinine Ratio 6 (6-20) Glucose Level 84 mg/dL (70-99) Calcium Level 8.9 mg/dL (8.5-10.1) Phosphorus Level 8.0 mg/dL (2.6-4.7) Total Bilirubin 0.6 mg/dL (0.2-1.0) Aspartate Amino Transf (AST/SGOT) 34 U/L (15-37) Alanine Aminotransferase (ALT/SGPT) 22 U/L (14-59) Alkaline Phosphatase 75 U/L (46-116) Total Protein 6.6 g/dL (6.4-8.2) Albumin 3.5 g/dL (3.4-5.0) Albumin/Globulin Ratio 1.1 (1.0-1.7) Test 01/22/21 08:05 Glucose (Fingerstick) 84 mg/dL (70-99) Laboratory Tests Test 01/21/21 12:14 01/21/21 20:36 01/22/21 07:25 01/22/21 08:05 Glucose (Fingerstick) 85 mg/dL (70-99) 75 mg/dL (70-99) 84 mg/dL (70-99) White Blood Count 9.6 x10^3/uL (4.0-11.0) Red Blood Count 2.87 x10^6/uL (3.50-5.40) Hemoglobin 9.0 g/dL (12.0-15.5) Hematocrit 27.0 % (36.0-47.0) Mean Corpuscular Volume 94 fL (79-100) Mean Corpuscular Hemoglobin 31 pg (25-35) Mean Corpuscular Hemoglobin Concent 33 g/dL (31-37) Red Cell Distribution Width 16.2 % (11.5-14.5) Platelet Count 150 x10^3/uL (140-400) Neutrophils (%) (Auto) 92 % (31-73) Lymphocytes (%) (Auto) 2 % (24-48) Monocytes (%) (Auto) 6 % (0-9) Eosinophils (%) (Auto) 0 % (0-3) Basophils (%) (Auto) 0 % (0-3) Neutrophils # (Auto) 8.9 x10^3/uL (1.8-7.7) Lymphocytes # (Auto) 0.2 x10^3/uL (1.0-4.8) Monocytes # (Auto) 0.6 x10^3/uL (0.0-1.1) Eosinophils # (Auto) 0.0 x10^3/uL (0.0-0.7) Basophils # (Auto) 0.0 x10^3/uL (0.0-0.2) Sodium Level 139 mmol/L (136-145) Potassium Level 4.3 mmol/L (3.5-5.1) Chloride Level 94 mmol/L (98-107) Carbon Dioxide Level 26 mmol/L (21-32) Anion Gap 19 (6-14) Blood Urea Nitrogen 45 mg/dL (7-20) Creatinine 7.7 mg/dL (0.6-1.0) Estimated GFR (Cockcroft-Gault) 6.5 BUN/Creatinine Ratio 6 (6-20) Glucose Level 84 mg/dL (70-99) Calcium Level 8.9 mg/dL (8.5-10.1) Phosphorus Level 8.0 mg/dL (2.6-4.7) Total Bilirubin 0.6 mg/dL (0.2-1.0) Aspartate Amino Transf (AST/SGOT) 34 U/L (15-37) Alanine Aminotransferase (ALT/SGPT) 22 U/L (14-59) Alkaline Phosphatase 75 U/L (46-116) Total Protein 6.6 g/dL (6.4-8.2) Albumin 3.5 g/dL (3.4-5.0) Albumin/Globulin Ratio 1.1 (1.0-1.7) Medications Current Medications Fentanyl Citrate (Fentanyl 2ml Vial) 75 mcg 1X ONCE IVP Last administered on 01/16/21at 08:31; Start 01/16/21 at 08:00; Stop 01/16/21 at 08:05; Status DC Ziprasidone (Geodon Im) 20 mg 1X ONCE IM Last administered on 01/16/21at 08:08; Start 01/16/21 at 08:00; Stop 01/16/21 at 08:05; Status DC Lorazepam (Ativan Inj) 2 mg 1X ONCE IVP Last administered on 01/16/21at 08:45; Start 01/16/21 at 08:45; Stop 01/16/21 at 08:46; Status DC Hydralazine HCl (Apresoline Inj) 20 mg 1X ONCE IVP Last administered on 01/16/21at 09:04; Start 01/16/21 at 09:00; Stop 01/16/21 at 09:02; Status DC Lorazepam (Ativan Inj) 2 mg 1X ONCE IVP Last administered on 01/16/21at 09:40; Start 01/16/21 at 09:30; Stop 01/16/21 at 09:31; Status DC Labetalol HCl (Normodyne Iv Push) 10 mg 1X ONCE IVP Last administered on 01/16/21at 12:03; Start 01/16/21 at 11:00; Stop 01/16/21 at 11:01; Status DC Aspirin (Aspirin Rectal Supp) 300 mg 1X ONCE VA Last administered on 01/16/21at 12:05; Start 01/16/21 at 11:15; Stop 01/16/21 at 11:16; Status DC Ondansetron HCl (Zofran) 4 mg PRN Q8HRS PRN IVP NAUSEA/VOMITING; Start 01/16/21 at 11:30; Stop 01/17/21 at 11:29; Status DC Insulin Human Lispro (HumaLOG) 0-5 UNITS TIDWMEALS SQ ; Start 01/16/21 at 12:00 Dextrose (Dextrose 50%-Water Syringe) 12.5 gm PRN Q15MIN PRN IV SEE COMMENTS; Start 01/16/21 at 11:30 Lorazepam (Ativan Inj) 1 mg PRN Q4HRS PRN IVP ANXIETY / AGITATION Last administered on 01/18/21at 04:18; Start 01/16/21 at 12:45 Hydralazine HCl (Apresoline Inj) 20 mg PRN Q4HRS PRN IVP ELEVATED BP, SEE COMMENTS Last administered on 01/16/21 13:30; Start 01/16/21 at 13:00 Nicardipine HCl 50 mg/Sodium Chloride 250 ml @ 25 mls/hr CONT PRN IV SEE I/O RECORD Last administered on 01/17/21 04:25; Start 01/16/21 at 14:00; Stop 01/17/21 at 16:08; Status DC Aspirin (Ecotrin) 81 mg DAILY PO Last administered on 01/22/21 09:34; Start 01/17/21 at 13:00 Atorvastatin Calcium (Lipitor) 80 mg HS PO Last administered on 01/21/21 23:26; Start 01/17/21 at 21:00 Carvedilol (Coreg) 12.5 mg BIDWMEALS PO Last administered on 01/22/21 09:34; Start 01/17/21 at 17:00 Clonidine HCl (Catapres) 0.2 mg BID PO Last administered on 01/22/21 09:37; Start 01/17/21 at 21:00 Clopidogrel Bisulfate (Plavix) 75 mg DAILY PO Last administered on 01/22/21 09:35; Start 01/17/21 at 13:00 EZETIMIBE (Zetia) 10 mg DAILY PO Last administered on 01/22/21 09:32; Start 01/17/21 at 13:00 Hydralazine HCl (Apresoline) 50 mg TID PO Last administered on 01/22/21 09:35; Start 01/17/21 at 14:00 Isosorbide Mononitrate (Imdur) 120 mg DAILY PO Last administered on 01/22/21 09:32; Start 01/17/21 at 13:00 Minoxidil (Loniten) 2.5 mg BID PO Last administered on 01/22/21 09:35; Start 01/17/21 at 21:00 Acetaminophen (Tylenol) 650 mg PRN Q6HRS PRN PO MILD PAIN / TEMP > 100.3'F Last administered on 01/18/21 17:34; Start 01/17/21 at 20:45 Acetaminophen/ Hydrocodone Bitart (Lortab 7.5/325) 1 tab PRN Q6HRS PRN PO MODERATE PAIN Last administered on 01/21/21 06:05; Start 01/17/21 at 20:45 Sodium Chloride 1,000 ml @ 1,000 mls/hr Q1H PRN IV hypotension; Start 01/18/21 at 11:30; Stop 01/18/21 at 17:29; Status DC Albumin Human 200 ml @ 200 mls/hr 1X PRN PRN IV Hypotension; Start 01/18/21 at 11:30; Stop 01/18/21 at 17:29; Status DC Sodium Chloride 1,000 ml @ 400 mls/hr Q2H30M PRN IV PATENCY; Start 01/18/21 at 11:30; Stop 01/18/21 at 23:29; Status DC Info (PHARMACY MONITORING -- do not chart) 1 each PRN DAILY PRN MC SEE COMMENTS; Start 01/18/21 at 11:30; Status UNV Info (PHARMACY MONITORING -- do not chart) 1 each PRN DAILY PRN MC SEE COM MENTS; Start 01/18/21 at 11:30; Status Cancel Fentanyl Citrate (Fentanyl 2ml Vial) 25 mcg PRN Q3HRS PRN IV PAIN Last administered on 01/21/21at 16:15; Start 01/18/21 at 14:00 Ondansetron HCl (Zofran Odt) 4 mg PRN Q6HRS PRN PO NAUSEA/VOMITING Last adminis tered on 01/21/21at 06:04; Start 01/19/21 at 09:30 Oxycodone HCl (Roxicodone) 10 mg PRN Q4HRS PRN PO SEVERE PAIN Last administered on 01/22/21at 03:14; Start 01/19/21 at 17:30 Simethicone (Gas-X) 80 mg PRN TID PRN PO GAS / BLOATING Last administered on 01/21/21at 06:04; Start 01/19/21 at 21:15 Lorazepam (Ativan) 0.5 mg PRN Q6HRS PRN PO ANXIETY / AGITATION Last administered on 01/22/21at 03:14; Start 01/19/21 at 21:15 Pantoprazole Sodium (Protonix) 40 mg DAILYAC PO Last administered on 01/22/21at 09:37; Start 01/21/21 at 10:00; Stop 01/28/21 at 09:59 Sodium Chloride 1,000 ml @ 1,000 mls/hr Q1H PRN IV hypotension; Start 01/21/21 at 12:45; Stop 01/21/21 at 18:44; Status DC Albumin Human 200 ml @ 200 mls/hr 1X PRN PRN IV Hypotension; Start 01/21/21 at 12:45; Stop 01/21/21 at 18:44; Status DC Acetaminophen (Tylenol) 500 mg 1X PRN PRN PO MILD PAIN / TEMP > 100.3'F; Start 01/21/21 at 12:45; Stop 01/22/21 at 12:44 Diphenhydramine HCl (Benadryl) 25 mg 1X PRN PRN IV ITCHING; Start 01/21/21 at 12:45; Stop 01/22/21 at 12:44 Diphenhydramine HCl (Benadryl) 25 mg 1X PRN PRN IV ITCHING; Start 01/21/21 at 12:45; Stop 01/22/21 at 12:44 Sodium Chloride 1,000 ml @ 400 mls/hr Q2H30M PRN IV PATENCY; Start 01/21/21 at 12:45; Stop 01/22/21 at 00:44; Status DC Lidocaine HCl (Xylocaine-Mpf 1% 2ml Vial) 2 ml 1X PRN PRN INJ FOR DIALYSIS; Start 01/21/21 at 12:45; Stop 01/22/21 at 12:44 Info (PHARMACY MONITORING -- do not chart) 1 each PRN DAILY PRN MC SEE COMMENTS; Start 01/21/21 at 12:45; Status UNV Info (PHARMACY MONITORING -- do not chart) 1 each PRN DAILY PRN MC SEE COMMENTS; Start 01/21/21 at 12:45 Bisacodyl (Dulcolax Supp) 10 mg PRN DAILY PRN [facility] CONSTIPATION; Start 01/21/21 at 19:30 Senna/Docusate Sodium (Senna Plus) 2 tab PRN BID PRN PO CONSTIPATION; Start 01/21/21 at 19:30 Calcium Carbonate/ Glycine (Tums) 500 mg PRN AFTMEALHC PRN PO INDIGESTION Last administered on 01/22/21at 09:31; Start 01/22/21 at 03:15 Active Scripts Active Lactulose 20 Gm/30 Ml Solution 20 Gm PO BID 5 Days Culturelle (Lactobacillus Rhamnosus Gg) 1 Each Cap.sprink 1 Cap PO BID Metoclopramide Hcl 5 Mg/1 Ml Vial 5 Mg IV PRN Q6HRS PRN Metoclopramide Hcl 5 Mg/1 Ml Vial 5 Mg IV [id number] Ondansetron Hcl 4 Mg/2 Ml Vial (Ondansetron Hcl/Pf) 4 Mg/2 Ml Vial 4 Mg IV PRN Q6HRS PRN Buspirone Hcl 5 Mg Tablet 5 Mg PO TID Quetiapine Fumarate 25 Mg Tablet 12.5 Mg PO PRN Q6HRS PRN Quetiapine Fumarate 25 Mg Tablet 25 Mg PO QHS Sertraline Hcl 50 Mg Tablet 50 Mg PO DAILY Hydrocodone-Apap 7.5-325 (Hydrocodone Bit/Acetaminophen) 1 Each Tablet 1 Tab PO PRN Q8HRS PRN Fentanyl 0.05 Mg/Ml Vial (Fentanyl Citrate/Pf) 50 Mcg/1 Ml Vial 50 Mcg IV PRN Q4HRS PRN [Darbepoetin Ty In Polysorbat] 60 MCG/0.3 ML Disp.syrin 60 Mcg SQ WEEKLYHS Zyvox (Linezolid) 600 Mg Tablet 600 Mg PO BID Vitamin D3 (Cholecalciferol (Vitamin D3)) 1,000 Unit Tablet 1 Tab PO DAILY [Calcium Acetate] 667 MG Capsule 1,334 Mg PO TIDWMEALS Mapap (Acetaminophen) 500 Mg Tablet 1,000 Mg PO TID Carvedilol (Carvedilol) 12.5 Mg Tablet 12.5 Mg PO BIDWMEALS Minoxidil 2.5 Mg Tablet 2.5 Mg PO BID Isosorbide Mononitrate Er (Isosorbide Mononitrate) 30 Mg Tab.er.24h 120 Mg PO DAILY Montelukast Sodium Tablet (Montelukast Sodium) 10 Mg Tablet 10 Mg PO QHS Polyethylene Glycol 3350 2,500 Gm Powder 17 Gm PO DAILY Novolog Flexpen (Insulin Aspart) 100 Unit/1 Ml Insuln.pen 0 Units SQ TIDAC Take sub q tid ac: BS 151-200=2 unit, 201-250=3 unit, HI113-962, BS 301-350=6 unit, BS 351-400 =8 unit. BS>401 call MD Renetta Busch 10,000 Units Capsule (Lipase/Protease/Amylase) 1 Each Capsule.dr 2 Cap PO TIDWMEALS TAke 2 cap tid with meals Nephro-Donny Tablet (Folic Acid/Vitamin B Comp W-C) 0.8 Mg Tablet 1 Tab PO DAILY Benadryl (Diphenhydramine Hcl) 25 Mg Capsule 25 Mg PO PRN Q6HRS PRN Reported Lactulose 10 Gm Packet 10 Gm PO Q6HRS Lidocaine 15 Gm Cream..g. 1 Karma TP TID PRN 30 Days Isosorbide Mononitrate Er (Isosorbide Mononitrate) 60 Mg Tab.er.24h 1 Tab PO DAILY Vitamin A 2,400 Mcg Capsule 1,250 Mcg PO WEEKLY Hydrocodone-Apap 10-325 (Hydrocodone Bit/Acetaminophen) 1 Tab Tablet 1 Tab PO PRN Q6HRS PRN Ultram (Tramadol Hcl) 50 Mg Tablet 1 Tab PO BID MDD 2 Tablet(s) 30 Days Hydralazine Hcl 50 Mg Tablet 1 Tab PO TID Acetaminophen 325 Mg Tablet 2 Tab PO Q6HRS PRN 30 Days Glucose Gel (Dextrose) 38 Gm Gel..gram. 15 Gm PO PRN Sertraline Hcl 100 Mg Tablet 100 Mg PO DAILY Glucagon Emergency Kit (Glucagon,Human Recombinant) 1 Mg Kit 1 Mg IM PRN Senna Plus Tablet (Sennosides/Docusate Sodium) 1 Each Tablet 2 Tab PO QHS 14 Days Zetia (Ezetimibe) 10 Mg Tablet 1 Tab PO DAILY 30 Days Renvela (Sevelamer Carbonate) 800 Mg Tablet 800 Mg PO TIDWMEALS Escitalopram Oxalate 10 Mg Tablet 1 Tab PO DAILY Lyrica (Pregabalin) 50 Mg Capsule 25 Mg PO QHS [creon] 1 Cap PO TIDAC Oxycodone HCl 5 Mg Tablet 5 Mg PO Q8HRS PRN [zenpep] 10 Mg PO TIDAC Clonidine Hcl 0.2 Mg Tablet 0.2 Mg PO BID Zofran (Ondansetron Hcl) 4 Mg Tablet 1 Tab PO Q4HRS PRN Sensipar (Cinacalcet Hcl) 30 Mg Tablet 1 Tab PO DAILY 30 Days Mirtazapine 15 Mg Tablet 1 Tab PO QHS Atorvastatin Calcium 40 Mg Tablet 80 Mg PO HS Minoxidil 2.5 Mg Tablet 2.5 Mg PO DAILY Amlodipine Besylate 10 Mg Tablet 10 Mg PO DAILY Lidocaine PATCH (Lidocaine) 1 Each Adh..patch 1 Each TP DAILY REMOVE AFTER 12 HOURS Proair Hfa Inhaler (Albuterol Sulfate) 8.5 Gm Hfa.aer.ad 2 Puff INH PRN Q6HRS PRN Nitrostat (Nitroglycerin) 0.4 Mg Tab.subl 0.4 Mg SL PRN Q5MIN PRN Plavix (Clopidogrel Bisulfate) 75 Mg Tablet 1 Tab PO DAILY Zoloft (Sertraline Hcl) 100 Mg Tablet 1 Tab PO DAILY Pantoprazole Sodium (Pantoprazole Sodium) 40 Mg Tablet. 1 Tab PO DAILY Losartan Potassium 100 Mg Tablet 100 Mg PO DAILY Aspir 81 (Aspirin) 81 Mg Tablet. 81 Mg PO DAILY Vitals/I & O Vital Sign - Last 24 Hours 01/21/21 01/21/21 01/21/21 01/21/21 16:15 19:00 20:00 20:06 Temp 97.6 97.6 Pulse 74 Resp 17 20 B/P (MAP) 156/62 (93) Pulse Ox 92 96 O2 Delivery Nasal Cannula Room Air Room Air Room Air O2 Flow Rate 2.0 01/21/21 01/21/21 01/21/21 01/21/21 20:36 23:00 23:26 23:27 Temp 97.7 97.7 Pulse 73 73 73 Resp 16 B/P (MAP) 129/47 (74) 129/47 129/47 Pulse Ox 96 98 O2 Delivery Room Air Room Air 01/21/21 01/21/21 01/22/21 01/22/21 23:27 23:27 03:00 03:14 Temp 98.0 98.0 Pulse 73 73 79 Resp 18 B/P (MAP) 129/47 129/47 179/62 (101) Pulse Ox 99 98 O2 Delivery Room Air Room Air 01/22/21 01/22/21 01/22/21 01/22/21 03:44 06:39 09:32 09:34 Temp 98.8 98.8 Pulse 76 76 76 Resp 19 B/P (MAP) 194/66 (108) 194/66 194/66 Pulse Ox 98 98 O2 Delivery Room Air Room Air 01/22/21 01/22/21 01/22/21 09:35 09:35 09:37 Pulse 76 76 76 B/P (MAP) 194/66 194/66 194/66 Intake and Output 01/21/21 01/21/21 01/22/21 15:00 23:00 07:00 Intake Total 444 ml 50 ml 0 ml Balance 444 ml 50 ml 0 ml Justicifation of Admission Dx: Justifications for Admission: Justification of Admission Dx: N/A MARINA REYNOSO MD Jan 22, 2021 11:33
[2021-01-22] MEDS ORDERED: METOCLOPRAMIDE HCL 10 MG/2 ML VIAL. IVP PRN (11:45)
[2021-01-22 11:46] VITALS: BP 184/104
--- NOTE | 2021-01-22 11:53 | NUR ---
SS following up with discharge planning. SS reviewed pt chart and discussed with pt RN. Pt is currently on room air. COVID19 positive. PT/OT ordered. SS currently awaiting PT/OT evaluations at this time. SS and physician have left voicemail's for pt's family requesting return calls to discuss discharge planning. SS currently awaiting return call from family at this time. SS will continue to follow for discharge planning.
[2021-01-22 16:00] VITALS: BP 190/60
[2021-01-22 19:00] VITALS: BP 181/101
--- NOTE | 2021-01-22 20:37 | NUR ---
Patient throwing food all over the bed/room for breakfast, lunch, and dinner. Patient throwing her drinks onto the floor. Patient very disoriented most the day. At approx 1525, the RN helper from surgery found the patient on the floor while doing hourly rounds. This RN went to assess the patient. Patient did not appear in any distress and there were no injuries from the fall. Patient was unsure how she got on the floor and very disoriented at this time. Pt stated "They told me to" while pointing to the wall. Dr. Ng was told at 1540 and at 1610 Nursing structural steel shop supervisor Rafaela called. Bed alarm on, bed locked and in low position, call light within reach. Patient's daughter (Kerri) notified of patient's fall.
[2021-01-22] MEDS: ATORVASTATIN CALCIUM 40 MG TABLET. PO SCH (22:53)
[2021-01-22 23:00] VITALS: BP 163/65
[2021-01-23 02:57] VITALS: BP 158/61
[2021-01-23] MEDS: oxyCODONE IR 5 MG TABLET PO PRN (06:28)
[2021-01-23 07:00] VITALS: BP 178/59
[2021-01-23] MEDS ORDERED: PANTOPRAZOLE IV PUSH 40 MG VIAL. IVP SCH (07:30)
[2021-01-23] MEDS: INSULIN LISPRO 300 UNITS/3 ML VIAL. SQ SCH ×3 (08:00→17:00)
[2021-01-23 08:15] VITALS: BP 178/59
[2021-01-23] MEDS: EZETIMIBE 10 MG TABLET. PO SCH (09:24)
[2021-01-23] MEDS: ASPIRIN ENTERIC COATED 81 MG TABLET.DR. PO SCH (09:26)
[2021-01-23] MEDS: cloNIDine HCL 0.2 MG TABLET PO SCH (09:26)
[2021-01-23] MEDS: CLOPIDOGREL BISULFATE 75 MG TABLET PO SCH (09:27)
[2021-01-23] MEDS: LORazepam 0.5 MG TABLET PO PRN ×2 (09:27→22:06)
[2021-01-23] MEDS ORDERED: ALBUMIN HUMAN 25% 200 ML IV PRN (09:30)
[2021-01-23] MEDS ORDERED: DIALYSIS PATIENT. MC PRN ×2 (09:30)
[2021-01-23] MEDS ORDERED: LIDOCAINE 1% PF 2 ML VIAL. INJ PRN (09:30)
[2021-01-23] MEDS ORDERED: IV NORMAL SALINE 1000ML BAG 1,000 ML IV PRN ×2 (09:30)
[2021-01-23 10:01] LABS: CALCIUM 9.4 mg/dL (8.5-10.1); CREATININE 9.2 mg/dL (0.6-1.0); GFR 5.3; POTASSIUM 4.6 mmol/L (3.5-5.1)
[2021-01-23 10:01] LABS: BASO % 0 % (0-3); EOS % 0 % (0-3); HEMATOCRIT 27.9 % (36.0-47.0); HEMOGLOBIN 9.1 g/dL (12.0-15.5); LYMPH # 0.2 x10^3/uL (1.0-4.8); LYMPH % 1 % (24-48); MEAN CORPUSCULAR HEMOGLOBIN 31 pg (25-35); MEAN CORPUSCULAR HGB CONC 33 g/dL (31-37); MEAN CORPUSCULAR VOLUME 93 fL (79-100); MONO # 1.2 x10^3/uL (0.0-1.1); MONO % 7 % (0-9); NEUT # 15.8 x10^3/uL (1.8-7.7); NEUT % 92 % (31-73); PLATELET COUNT 176 x10^3/uL (140-400); RED CELL DISTRIBUTION WIDTH 15.8 % (11.5-14.5); WHITE BLOOD COUNT 17.2 x10^3/uL (4.0-11.0)
--- NOTE | 2021-01-23 10:35 | PDOC ---
Renal-Progress Notes Subjective Notes Notes REMAINS VERY CONFUSED History of Present Illness Hx of present illness NO COMPLAINTS. NOT EATING, NOT ALLOWING IV MEDS ETC Vitals Vitals Vital Signs Date Time Temp Pulse Resp B/P (MAP) Pulse Ox O2 Delivery O2 Flow Rate FiO2 01/23/21 09:26 63 158/61 01/23/21 08:15 97.4 18 Room Air 97.4 01/23/21 06:58 100 01/23/21 06:28 2.0 Weight Weight [ ] I.O. Intake and Output Intake and Output 01/23/21 07:00 Intake Total 300 ml Balance 300 ml Intake Oral 300 ml Labs Labs Laboratory Tests Test 01/22/21 11:57 01/22/21 15:58 01/22/21 21:19 01/23/21 08:19 Glucose (Fingerstick) 97 mg/dL (70-99) 103 mg/dL (70-99) 152 mg/dL (70-99) 142 mg/dL (70-99) Test 01/23/21 09:00 01/23/21 09:15 Sodium Level 136 mmol/L (136-145) Potassium Level 4.6 mmol/L (3.5-5.1) Chloride Level 93 mmol/L (98-107) Carbon Dioxide Level 26 mmol/L (21-32) Anion Gap 17 (6-14) Blood Urea Nitrogen 61 mg/dL (7-20) Creatinine 9.2 mg/dL (0.6-1.0) Estimated GFR (Cockcroft-Gault) 5.3 Glucose Level 132 mg/dL (70-99) Calcium Level 9.4 mg/dL (8.5-10.1) White Blood Count 17.2 x10^3/uL (4.0-11.0) Red Blood Count 3.00 x10^6/uL (3.50-5.40) Hemoglobin 9.1 g/dL (12.0-15.5) Hematocrit 27.9 % (36.0-47.0) Mean Corpuscular Volume 93 fL (79-100) Mean Corpuscular Hemoglobin 31 pg (25-35) Mean Corpuscular Hemoglobin Concent 33 g/dL (31-37) Red Cell Distribution Width 15.8 % (11.5-14.5) Platelet Count 176 x10^3/uL (140-400) Neutrophils (%) (Auto) 92 % (31-73) Lymphocytes (%) (Auto) 1 % (24-48) Monocytes (%) (Auto) 7 % (0-9) Eosinophils (%) (Auto) 0 % (0-3) Basophils (%) (Auto) 0 % (0-3) Neutrophils # (Auto) 15.8 x10^3/uL (1.8-7.7) Lymphocytes # (Auto) 0.2 x10^3/uL (1.0-4.8) Monocytes # (Auto) 1.2 x10^3/uL (0.0-1.1) Eosinophils # (Auto) 0.0 x10^3/uL (0.0-0.7) Basophils # (Auto) 0.0 x10^3/uL (0.0-0.2) X-Ray X-Ray Abdomen AP portable at 2001: Reason for examination: Covid positive. Abdominal pain. C. difficile. Confusion. There is no gross organomegaly. Psoas muscles are symmetric. The bowel gas pattern is nonspecific and nonobstructive. Postoperative changes are present seen from previous cholecystectomy. There are vascular calcification seen in the pelvis. No calcifications are seen along the course of the kidneys or ureters. No acute bony abnormalities are seen. IMPRESSION: Nonspecific nonobstructive bowel gas pattern. Vascular calcifications in the pelvis. Electronically signed by: Rosanne Sorensen MD (01/21/2021 8:34 PM) [facility] Review of Systems Constitutional: yes: other (CONFUSED) Physical Exam General Appearance: mild distress Skin: warm Respiratory: bilateral CTA, decreased breath sounds Heart: S1S2 Abdomen: soft, bowel sounds present Genitourinary: bladder flat Extremities: pulses present Neurology: confused Musculoskeletal: Osteoarthritis Assessment Assessment IMP COVID 19 POS [id number] ARM BC AVF HTN [id number] ENCEPHALOPATHY DUE TO ABOVE-NOT ANY BETTER LEUCOCYTOSIS-NEW ANEMIA FLUID OVERLOAD-RESOLVED ACUTE ON CHRONIC DIASTOLIC CHF FEVER CAD WITH CABG PLAN EDGAR ON HOLD CONT HOME MEDS RENAL DIET ENC COMPLIANCE ID EVAL AND TX HD TODAY UF TO TW MAY NEED ANTIBIOTICS CATAPRESS TTS PATCH HAVE DISCUSSED CASE WITH DR DANG WILL FOLLOW TING REYNA MD Jan 23, 2021 10:34
--- NOTE | 2021-01-23 10:37 | PDOC ---
IM PROGRESS NOTES- Subjective Subjective Patient is not eating. She is not cooperative. She is hallucinating a lot. She remains confused. Objective Vitals/I&O Vital Signs Date Time Temp Pulse Resp B/P (MAP) Pulse Ox O2 Delivery O2 Flow Rate FiO2 01/23/21 09:26 63 158/61 01/23/21 08:15 97.4 18 Room Air 97.4 01/23/21 06:58 100 01/23/21 06:28 2.0 I & O 01/22/21 01/22/21 01/23/21 15:00 23:00 07:00 Intake Total 175 ml 125 ml 0 ml Balance 175 ml 125 ml 0 ml Physical Exam Physical Exam General Appearance -very sleepy, not responsive, not following commands, confused Chest - decreased breath sounds at bases Heart - S1 and S2 normal Abdomen - soft, non tender Neurological -sleepy and confused Musculoskeletal - generalized weakness Extremities - no edema Labs Laboratory Tests Test 01/22/21 11:57 01/22/21 15:58 01/22/21 21:19 01/23/21 08:19 Glucose (Fingerstick) 97 mg/dL (70-99) 103 mg/dL (70-99) H 152 mg/dL (70-99) H 142 mg/dL (70-99) H Test 01/23/21 09:00 01/23/21 09:15 Sodium Level 136 mmol/L (136-145) Potassium Level 4.6 mmol/L (3.5-5.1) Chloride Level 93 mmol/L (98-107) L Carbon Dioxide Level 26 mmol/L (21-32) Anion Gap 17 (6-14) H Blood Urea Nitrogen 61 mg/dL (7-20) H Creatinine 9.2 mg/dL (0.6-1.0) H Estimated GFR (Cockcroft-Gault) 5.3 Glucose Level 132 mg/dL (70-99) H Calcium Level 9.4 mg/dL (8.5-10.1) White Blood Count 17.2 x10^3/uL (4.0-11.0) H Red Blood Count 3.00 x10^6/uL (3.50-5.40) L Hemoglobin 9.1 g/dL (12.0-15.5) L Hematocrit 27.9 % (36.0-47.0) L Mean Corpuscular Volume 93 fL (79-100) Mean Corpuscular Hemoglobin 31 pg (25-35) Mean Corpuscular Hemoglobin Concent 33 g/dL (31-37) Red Cell Distribution Width 15.8 % (11.5-14.5) H Platelet Count 176 x10^3/uL (140-400) Neutrophils (%) (Auto) 92 % (31-73) H Lymphocytes (%) (Auto) 1 % (24-48) L Monocytes (%) (Auto) 7 % (0-9) Eosinophils (%) (Auto) 0 % (0-3) Basophils (%) (Auto) 0 % (0-3) Neutrophils # (Auto) 15.8 x10^3/uL (1.8-7.7) H Lymphocytes # (Auto) 0.2 x10^3/uL (1.0-4.8) L Monocytes # (Auto) 1.2 x10^3/uL (0.0-1.1) H Eosinophils # (Auto) 0.0 x10^3/uL (0.0-0.7) Basophils # (Auto) 0.0 x10^3/uL (0.0-0.2) Laboratory Tests 01/23/21 09:15 Laboratory Tests 01/23/21 09:00 Assessment Assessment 1. Acute metabolic encephalopathy, etiology not clear. The patient has had similar episodes in the past. This may be due to acute hypertensive crisis. 2. Acute hypertensive crisis. This may be also contributing to the acute metabolic encephalopathy. 3. End-stage renal disease on hemodialysis. 4. Anemia. 5. Coronary artery disease. 6. Diastolic congestive heart failure. 7. Fever: The patient had fever of 103. This may be due to her agitation, but sepsis needs to be ruled out. Lactic acid level is normal. 8. 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 9. 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 10. Physical deconditioning. 11. Status post coronary artery bypass grafting. 12. Peripheral artery disease. 13. COVID-19 infection. Rapid antigen test was negative but PCR is positive. Patient spiked fever once. PLAN: 1. Acute metabolic encephalopathy. Continue to give her lorazepam as needed. Monitor closely in the Intensive Care Unit. Consult Dr. Martinez for neurology evaluation and management. Likely due to hypertensive crisis.Mental status is improving. 2. Acute hypertensive crisis. Patient was initially treated with Cardene IV drip. Consult Dr. Leahy for cardiology evaluation and management. 3. Elevated troponin. This may be due to demand ischemia and also end-stage renal disease may be contributing. 4. End-stage renal disease, on hemodialysis. 5. Coronary artery disease. 6. Diastolic congestive heart failure. 7. Physical deconditioning. 8. Asthma. 9. Gastroesophageal reflux disease. 10. Hyperlipidemia. 11. Severe pulmonary hypertension. 12. 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 13. History of depression. 14. 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 Monitor blood sugar. 15. History of secondary hyperparathyroidism. 16. Marijuana abuse Plan: End-stage renal disease on hemodialysis - consult Dr. Hernandez for management of end-stage renal disease and hemodialysis. Condition treatment discussed with the patient's brother at bedside in the Emergency Room. Prognosis of this patient is extremely poor due to her multiple medical problems. As patient remained stable patient was admitted to CVC unit. Acute hypertensive crisis- patient is off Cardene drip. Labs reviewed. As needed IV hydralazine. Pressure has again increased to 194/66. Patient is ref using some medications. Discussed with Dr. Hernandez. Start Catapres TTS. The patient received dialysis only for 1-1/2 hours yesterday because she got very agitated, confused and started thrashing. COVID-19 infection. SARS-CoV-2 PCR test is positive. This may be also contributing to patient's poor appetite, body aches and confusion.I will also consult Dr. Ray Nino for Infectious Disease evaluation and management because of her fever of 103 degrees Fahrenheit. Her chest x-ray, urinalysis as well as SARS-CoV-2 antigen test is negative. Consult Dr. Nino for infectious disease evaluation and management. No need for antibiotics at this time. Patient is not on oxygen Acute hypertensive crisis-patient responded to Cardene drip ,now she is stable on oral medications. Acute metabolic encephalopathy-this may be multifactorial including due to acute hypertensive crisis, COVID-19 infection and other factors. She sitting up in bed naked. Encouraged her to drink Nepro. Hallucinations are getting worse. Discussed with Dr. Hernandez. Start her on low-dose Seroquel. Continue treatment for acute metabolic encephalopathy. On Zofran for nausea. Patient is not ready yet but whenever she is ready she will need to go to a special dialysis unit because she has COVID-19 infection. Leukocytosis-WBC count 17.2. Consult Dr. Nino. Order chest x-ray. Prognosis is poor due to her multiple medical problems.s/s likely due to Covid- [address] Nino Vomiting-start pantoprazole. Encourage oral intake. Discussed with staff they also offered Nepro for her to drink but she is not drinking. Discussed with Dr. Youngblood. GI consult. Detailed message left for patient's daughter Kerri Sweeney on phone today about patient's declining condition, treatment and options. Discussed with social work job titles. She will eventually need to go to a [facility] unit for further management. Plan Plan For more details regarding further plans, please refer to the orders. Justifications for Admission Other Justification GAURAV DANG MD Jan 23, 2021 10:37
--- NOTE | 2021-01-23 11:06 | PDOC ---
Date of Service: DATE: 01/23/21 TIME: 11:02 Subjective: Subjective: "I'M.... SLEEPY!" Objective: Objective: D/w nurse - confused, refusing IV, fell yesterday, throws food, etc. Vital Signs: Vital Signs Date Time Temp Pulse Resp B/P (MAP) Pulse Ox O2 Delivery O2 Flow Rate FiO2 01/23/21 09:26 63 158/61 01/23/21 08:15 97.4 18 Room Air 97.4 01/23/21 06:58 100 01/23/21 06:28 2.0 Labs: Laboratory Tests Test 01/22/21 11:57 01/22/21 15:58 01/22/21 21:19 01/23/21 08:19 Glucose (Fingerstick) 97 mg/dL (70-99) 103 mg/dL (70-99) 152 mg/dL (70-99) 142 mg/dL (70-99) PE: GEN: hunched over in bed - before entering her room I could hear her yelling from down the mane ABD: non-distended - pt not cooperative for exam NEURO/PSYCH: confused A/P: COVID, encephalopathy Chronic abd pain, GERD, gastroparesis CAD on Plavix and ASA, ESRD on HD, h/o CVAs, DM, HTN -- Mental status problematic. Refusing IV meds - could try PO PPI and PO Reglan suspension. Justicifation of Admission Dx: Justifications for Admission: Justification of Admission Dx: N/A ALL GONZALEZ Jan 23, 2021 11:06
--- NOTE | 2021-01-23 13:15 | NUR ---
SS following up with discharge planning. SS reviewed pt chart and discussed with pt RN. Pt is currently on room air. COVID19 positive. PT/OT ordered. ID consulted. Hemodialysis pt. Pt's daughter, Maria Esther Sweeney, , contacted SS and stated that if indicated she would like pt to go to [facility] in [facility], ; fax [phone]. SS needing PT/OT evaluations and recommendations. SS will continue to follow for discharge planning.
[2021-01-23] MEDS: ISOSORBIDE MONONITRATE ER 30 MG TAB.ER.24H PO SCH (14:50)
[2021-01-23] MEDS: QUEtiapine 25 MG TABLET. PO SCH ×2 (14:51→18:14)
[2021-01-23] MEDS: MINOXIDIL 2.5 MG TABLET PO SCH ×2 (14:51→22:07)
[2021-01-23] MEDS: CARVEDILOL 12.5 MG TABLET. PO SCH ×2 (14:53→18:14)
[2021-01-23 15:00] VITALS: BP 155/53
--- NOTE | 2021-01-23 17:24 | RAD ---
EXAM: AP View of the chest DATE: 01/23/2021 3:08 PM INDICATION: Reason: Leukocytosis / Spl. Instructions: / History: COMPARISON: 01/16/2021 01/18/2018 FINDINGS: The heart is mildly enlarged. Mediastinal and hilar contours are normal. Patchy bilateral perihilar and lung base airspace opacitie s. Trace pleural effusions or pleural thickening. No pneumothorax. IMPRESSION: 1. Patchy bilateral perihilar and lung base airspace opacities, concerning for multifocal infectious process such as pneumonia or pulmonary edema. 2. Cardiomegaly. 3. Trace pleural effusions or pleural thickening. Electronically signed by: Amrik Calix MD (01/23/2021 5:21 PM) [id number]
[2021-01-23] MEDS: cloNIDine TTS-3 1 PATCH PATCH.TDWK TD SCH (18:14)
[2021-01-23 19:00] VITALS: BP 140/51
[2021-01-23] MEDS: ATORVASTATIN CALCIUM 40 MG TABLET. PO SCH (22:06)
[2021-01-23 23:00] VITALS: BP 128/48
[2021-01-24] VITALS (7 sets, daily range): BP systolic 91–158; BP diastolic 39–89
[2021-01-24] MEDS: oxyCODONE IR 5 MG TABLET PO PRN (02:35)
[2021-01-24 04:55] LABS: BASO % 0 % (0-3); EOS % 0 % (0-3); HEMATOCRIT 27.1 % (36.0-47.0); HEMOGLOBIN 8.9 g/dL (12.0-15.5); LYMPH # 0.3 x10^3/uL (1.0-4.8); LYMPH % 2 % (24-48); MEAN CORPUSCULAR HEMOGLOBIN 31 pg (25-35); MEAN CORPUSCULAR HGB CONC 33 g/dL (31-37); MEAN CORPUSCULAR VOLUME 94 fL (79-100); MONO # 1.2 x10^3/uL (0.0-1.1); MONO % 7 % (0-9); NEUT # 14.5 x10^3/uL (1.8-7.7); NEUT % 91 % (31-73); PLATELET COUNT 165 x10^3/uL (140-400); RED BLOOD COUNT 2.88 x10^6/uL (3.50-5.40)
[2021-01-24 05:23] LABS: ALBUMIN 3.2 g/dL (3.4-5.0); CALCIUM 9.4 mg/dL (8.5-10.1); CREATININE 5.7 mg/dL (0.6-1.0); GFR 9.2; POTASSIUM 4.2 mmol/L (3.5-5.1); TOTAL BILIRUBIN 0.6 mg/dL (0.2-1.0); TOTAL PROTEIN 6.4 g/dL (6.4-8.2)
[2021-01-24] MEDS: INSULIN LISPRO 300 UNITS/3 ML VIAL. SQ SCH ×3 (08:00→17:00)
--- NOTE | 2021-01-24 08:49 | PDOC ---
IM PROGRESS NOTES- Subjective Subjective Patient is not eating. She is not cooperative. c/o abdominal pain. she has hallucinations. She is not eating. Objective Vitals/I&O Vital Signs Date Time Temp Pulse Resp B/P (MAP) Pulse Ox O2 Delivery O2 Flow Rate FiO2 01/24/21 07:00 98.0 78 16 158/51 (86) 99 Room Air 98.0 01/24/21 03:05 2.0 I & O 01/23/21 01/23/21 01/24/21 15:00 23:00 07:00 Intake Total 275 ml 100 ml 0 ml Output Total 0 ml Balance 275 ml 100 ml 0 ml Physical Exam Physical Exam General Appearance - alert and in no distress Chest - decreased breath sounds at bases Heart - S1 and S2 normal Abdomen - soft, non tender Neurological - alert and oriented Musculoskeletal - generalized weakness Extremities - no edema Labs Laboratory Tests Test 01/23/21 09:00 01/23/21 09:15 01/23/21 16:41 01/23/21 21:09 Sodium Level 136 mmol/L (136-145) Potassium Level 4.6 mmol/L (3.5-5.1) Chloride Level 93 mmol/L (98-107) L Carbon Dioxide Level 26 mmol/L (21-32) Anion Gap 17 (6-14) H Blood Urea Nitrogen 61 mg/dL (7-20) H Creatinine 9.2 mg/dL (0.6-1.0) H Estimated GFR (Cockcroft-Gault) 5.3 Glucose Level 132 mg/dL (70-99) H Calcium Level 9.4 mg/dL (8.5-10.1) White Blood Count 17.2 x10^3/uL (4.0-11.0) H Red Blood Count 3.00 x10^6/uL (3.50-5.40) L Hemoglobin 9.1 g/dL (12.0-15.5) L Hematocrit 27.9 % (36.0-47.0) L Mean Corpuscular Volume 93 fL (79-100) Mean Corpuscular Hemoglobin 31 pg (25-35) Mean Corpuscular Hemoglobin Concent 33 g/dL (31-37) Red Cell Distribution Width 15.8 % (11.5-14.5) H Platelet Count 176 x10^3/uL (140-400) Neutrophils (%) (Auto) 92 % (31-73) H Lymphocytes (%) (Auto) 1 % (24-48) L Monocytes (%) (Auto) 7 % (0-9) Eosinophils (%) (Auto) 0 % (0-3) Basophils (%) (Auto) 0 % (0-3) Neutrophils # (Auto) 15.8 x10^3/uL (1.8-7.7) H Lymphocytes # (Auto) 0.2 x10^3/uL (1.0-4.8) L Monocytes # (Auto) 1.2 x10^3/uL (0.0-1.1) H Eosinophils # (Auto) 0.0 x10^3/uL (0.0-0.7) Basophils # (Auto) 0.0 x10^3/uL (0.0-0.2) Glucose (Fingerstick) 95 mg/dL (70-99) 84 mg/dL (70-99) Test 01/24/21 04:00 01/24/21 08:12 White Blood Count 16.0 x10^3/uL (4.0-11.0) H Red Blood Count 2.88 x10^6/uL (3.50-5.40) L Hemoglobin 8.9 g/dL (12.0-15.5) L Hematocrit 27.1 % (36.0-47.0) L Mean Corpuscular Volume 94 fL (79-100) Mean Corpuscular Hemoglobin 31 pg (25-35) Mean Corpuscular Hemoglobin Concent 33 g/dL (31-37) Red Cell Distribution Width 16.0 % (11.5-14.5) H Platelet Count 165 x10^3/uL (140-400) Neutrophils (%) (Auto) 91 % (31-73) H Lymphocytes (%) (Auto) 2 % (24-48) L Monocytes (%) (Auto) 7 % (0-9) Eosinophils (%) (Auto) 0 % (0-3) Basophils (%) (Auto) 0 % (0-3) Neutrophils # (Auto) 14.5 x10^3/uL (1.8-7.7) H Lymphocytes # (Auto) 0.3 x10^3/uL (1.0-4.8) L Monocytes # (Auto) 1.2 x10^3/uL (0.0-1.1) H Eosinophils # (Auto) 0.0 x10^3/uL (0.0-0.7) Basophils # (Auto) 0.0 x10^3/uL (0.0-0.2) Sodium Level 139 mmol/L (136-145) Potassium Level 4.2 mmol/L (3.5-5.1) Chloride Level 99 mmol/L (98-107) Carbon Dioxide Level 27 mmol/L (21-32) Anion Gap 13 (6-14) Blood Urea Nitrogen 28 mg/dL (7-20) #H Creatinine 5.7 mg/dL (0.6-1.0) H Estimated GFR (Cockcroft-Gault) 9.2 BUN/Creatinine Ratio 5 (6-20) L Glucose Level 83 mg/dL (70-99) Calcium Level 9.4 mg/dL (8.5-10.1) Total Bilirubin 0.6 mg/dL (0.2-1.0) Aspartate Amino Transferase (AST) 29 U/L (15-37) Alanine Aminotransferase (ALT) 19 U/L (14-59) Alkaline Phosphatase 83 U/L (46-116) Total Protein 6.4 g/dL (6.4-8.2) Albumin 3.2 g/dL (3.4-5.0) L Albumin/Globulin Ratio 1.0 (1.0-1.7) Glucose (Fingerstick) 73 mg/dL (70-99) Laboratory Tests 01/23/21 09:15 01/24/21 04:00 Laboratory Tests 01/23/21 09:00 01/24/21 04:00 Meds Current Medications Medications (Trade) Dose Ordered Sig/Srinath Route PRN Reason Start Time Stop Time Status Last Admin Dose Admin Clonidine HCl (Catapres Tts-3) 1 patch WEEKLY TD 01/23/21 09:00 01/23/21 18:14 Quetiapine Fumarate (SEROquel) 12.5 mg [id number] PO 01/23/21 11:00 01/30/21 10:59 01/23/21 18:14 Assessment Assessment 1. Acute metabolic encephalopathy, etiology not clear. The patient has had similar episodes in the past. This may be due to acute hypertensive crisis. 2. Acute hypertensive crisis. This may be also contributing to the acute metabolic encephalopathy. 3. End-stage renal disease on hemodialysis. 4. Anemia. 5. Coronary artery disease. 6. Diastolic congestive heart failure. 7. Fever: The patient had fever of 103. This may be due to her agitation, but sepsis needs to be ruled out. Lactic acid level is normal. 8. 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 9. 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 10. Physical deconditioning. 11. Status post coronary artery bypass grafting. 12. Peripheral artery disease. 13. COVID-19 infection. Rapid antigen test was negative but PCR is positive. Patient spiked fever once. PLAN: 1. Acute metabolic encephalopathy. Continue to give her lorazepam as needed. Monitor closely in the Intensive Care Unit. Consult Dr. Martinez for neurology evaluation and management. Likely due to hypertensive crisis.Mental status is i mproving. 2. Acute hypertensive crisis. Patient was initially treated with Cardene IV drip. Consult Dr. Leahy for cardiology evaluation and management. 3. Elevated troponin. This may be due to demand ischemia and also end-stage renal disease may be contributing. 4. End-stage renal disease, on hemodialysis. 5. Coronary artery disease. 6. Diastolic congestive heart failure. 7. Physical deconditioning. 8. Asthma. 9. Gastroesophageal reflux disease. 10. Hyperlipidemia. 11. Severe pulmonary hypertension. 12. 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 13. History of depression. 14. 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 Monitor blood sugar. 15. History of secondary hyperparathyroidism. 16. Marijuana abuse Plan: End-stage renal disease on hemodialysis - consult Dr. Hernandez for management of end-stage renal disease and hemodialysis. Condition treatment discussed with the patient's brother at bedside in the Emergency Room. Prognosis of this patient is extremely poor due to her multiple medical problems. As patient remained stable patient was admitted to CVC unit. Acute hypertensive crisis- patient is off Cardene drip. Labs reviewed. As ne eded IV hydralazine. Pressure has again increased to 194/66. Patient is refusing some medications. Discussed with Dr. Hernandez. Start Catapres TTS. The patient received dialysis only for 1-1/2 hours yesterday because she got very agitated, confused and started thrashing. COVID-19 infection. SARS-CoV-2 PCR test is positive. This may be also contributing to patient's poor appetite, body aches and confusion.I will also consult Dr. Ray Nino for Infectious Disease evaluation and management because of her fever of 103 degrees Fahrenheit. Her chest x-ray, urinalysis as well as SARS-CoV-2 antigen test is negative. Consult Dr. Nino for infectious disease evaluation and management. No need for antibiotics at this time. Patient is not on oxygen Acute hypertensive crisis-patient responded to Cardene drip ,now she is stable on oral medications. Acute metabolic encephalopathy-this may be multifactorial including due to acute hypertensive crisis, COVID-19 infection and other factors. She sitting up in bed naked. Encouraged her to drink Nepro. Hallucinations unchanged. Discussed with Dr. Hernandez. D/w . Increase Seroquel. Continue treatment for acute metabolic encephalopathy. On Zofran for nausea. Patient is not ready yet but whenever she is ready she will need to go to a special dialysis unit because she has COVID-19 infection. Leukocytosis-WBC count 17.2. Consult Dr. Nino. Chest x-ray on January 23, 2021 shows bilateral patchy opacities. WBC count on January 24 is 16. Consult . Abdominal pain- change IV Reglan to PO liquid. Prognosis is poor due to her multiple medical problems.s/s likely due to Covid- 19 infection. Vomiting-start pantoprazole. Encourage oral intake. Discussed with staff they also offered Nepro for her to drink but she is not drinking. Discussed with Dr. Youngblood. GI consult. Discussed with patient's daughter Kerri on phone [phone] on January 24, 2021 about patient's declining condition, treatment and options. Plan Plan For more details regarding further plans, please refer to the orders. Justifications for Admission Other Justification GAURAV DANG MD Jan 24, 2021 08:49
--- NOTE | 2021-01-24 09:00 | PDOC ---
PROGRESS NOTES Date of Service DATE: 01/24/21 TIME: 08:58 Assessment Problems Medical Problems: (1) Altered mental status Status: Acute (2) ESRD (end stage renal disease) on dialysis Status: Acute (3) Hypertensive urgency Status: Acute Encephalopathy, hypertensive, also role of COVID 19 encephalopathy. She takes out her IVs and refuses to eat COVID 19 History of strokes including chronic right basal ganglia and bilateral thalamic lacunar infarcts on the CT. CT also shows white matter disease consistent with hypertension and diabetes, I doubt that she also has demyelinating disease. Elevated troponin, renal failure, anemia, coronary artery disease, diastolic congestive heart failure, fever. 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 Ng, he will titrate up her Seroquel dose Subjective Complains of back pain Objective Vital Signs Date Time Temp Pulse Resp B/P (MAP) Pulse Ox O2 Delivery O2 Flow Rate FiO2 01/24/21 07:00 98.0 78 16 158/51 (86) 99 Room Air 98.0 01/24/21 03:05 2.0 Intake and Output 01/24/21 07:00 Intake Total 375 ml Output Total 0 ml Balance 375 ml Intake Oral 375 ml Output Urine Total 0 ml # Voids 3 PHYSICAL EXAM Alert, askew in bed, knows location and date PERRL. EOMI. CN: no focal findings. Muscle tone: normal. Muscle strength: 4/5, weaker on the left DTR: 0-1+ Plantar reflex: flexor Gait: not examined in bed. Sensory exam: Stocking loss. No cerebellar signs elicited. Review of Relevant I have reviewed the following items richard (where applicable) has been applied. Labs Laboratory Tests Test 01/22/21 11:57 01/22/21 15:58 01/22/21 21:19 01/23/21 08:19 Glucose (Fingerstick) 97 mg/dL (70-99) 103 mg/dL (70-99) 152 mg/dL (70-99) 142 mg/dL (70-99) Test 01/23/21 09:00 01/23/21 09:15 01/23/21 16:41 01/23/21 21:09 Sodium Level 136 mmol/L (136-145) Potassium Level 4.6 mmol/L (3.5-5.1) Chloride Level 93 mmol/L (98-107) Carbon Dioxide Level 26 mmol/L (21-32) Anion Gap 17 (6-14) Blood Urea Nitrogen 61 mg/dL (7-20) Creatinine 9.2 mg/dL (0.6-1.0) Estimated GFR (Cockcroft-Gault) 5.3 Glucose Level 132 mg/dL (70-99) Calcium Level 9.4 mg/dL (8.5-10.1) White Blood Count 17.2 x10^3/uL (4.0-11.0) Red Blood Count 3.00 x10^6/uL (3.50-5.40) Hemoglobin 9.1 g/dL (12.0-15.5) Hematocrit 27.9 % (36.0-47.0) Mean Corpuscular Volume 93 fL (79-100) Mean Corpuscular Hemoglobin 31 pg (25-35) Mean Corpuscular Hemoglobin Concent 33 g/dL (31-37) Red Cell Distribution Width 15.8 % (11.5-14.5) Platelet Count 176 x10^3/uL (140-400) Neutrophils (%) (Auto) 92 % (31-73) Lymphocytes (%) (Auto) 1 % (24-48) Monocytes (%) (Auto) 7 % (0-9) Eosinophils (%) (Auto) 0 % (0-3) Basophils (%) (Auto) 0 % (0-3) Neutrophils # (Auto) 15.8 x10^3/uL (1.8-7.7) Lymphocytes # (Auto) 0.2 x10^3/uL (1.0-4.8) Monocytes # (Auto) 1.2 x10^3/uL (0.0-1.1) Eosinophils # (Auto) 0.0 x10^3/uL (0.0-0.7) Basophils # (Auto) 0.0 x10^3/uL (0.0-0.2) Glucose (Fingerstick) 95 mg/dL (70-99) 84 mg/dL (70-99) Test 01/24/21 04:00 01/24/21 08:12 White Blood Count 16.0 x10^3/uL (4.0-11.0) Red Blood Count 2.88 x10^6/uL (3.50-5.40) Hemoglobin 8.9 g/dL (12.0-15.5) Hematocrit 27.1 % (36.0-47.0) Mean Corpuscular Volume 94 fL (79-100) Mean Corpuscular Hemoglobin 31 pg (25-35) Mean Corpuscular Hemoglobin Concent 33 g/dL (31-37) Red Cell Distribution Width 16.0 % (11.5-14.5) Platelet Count 165 x10^3/uL (140-400) Neutrophils (%) (Auto) 91 % (31-73) Lymphocytes (%) (Auto) 2 % (24-48) Monocytes (%) (Auto) 7 % (0-9) Eosinophils (%) (Auto) 0 % (0-3) Basophils (%) (Auto) 0 % (0-3) Neutrophils # (Auto) 14.5 x10^3/uL (1.8-7.7) Lymphocytes # (Auto) 0.3 x10^3/uL (1.0-4.8) Monocytes # (Auto) 1.2 x10^3/uL (0.0-1.1) Eosinophils # (Auto) 0.0 x10^3/uL (0.0-0.7) Basophils # (Auto) 0.0 x10^3/uL (0.0-0.2) Sodium Level 139 mmol/L (136-145) Potassium Level 4.2 mmol/L (3.5-5.1) Chloride Level 99 mmol/L (98-107) Carbon Dioxide Level 27 mmol/L (21-32) Anion Gap 13 (6-14) Blood Urea Nitrogen 28 mg/dL (7-20) Creatinine 5.7 mg/dL (0.6-1.0) Estimated GFR (Cockcroft-Gault) 9.2 BUN/Creatinine Ratio 5 (6-20) Glucose Level 83 mg/dL (70-99) Calcium Level 9.4 mg/dL (8.5-10.1) Total Bilirubin 0.6 mg/dL (0.2-1.0) Aspartate Amino Transf (AST/SGOT) 29 U/L (15-37) Alanine Aminotransferase (ALT/SGPT) 19 U/L (14-59) Alkaline Phosphatase 83 U/L (46-116) Total Protein 6.4 g/dL (6.4-8.2) Albumin 3.2 g/dL (3.4-5.0) Albumin/Globulin Ratio 1.0 (1.0-1.7) Glucose (Fingerstick) 73 mg/dL (70-99) Laboratory Tests Test 01/23/21 09:00 01/23/21 09:15 01/23/21 16:41 01/23/21 21:09 Sodium Level 136 mmol/L (136-145) Potassium Level 4.6 mmol/L (3.5-5.1) Chloride Level 93 mmol/L (98-107) Carbon Dioxide Level 26 mmol/L (21-32) Anion Gap 17 (6-14) Blood Urea Nitrogen 61 mg/dL (7-20) Creatinine 9.2 mg/dL (0.6-1.0) Estimated GFR (Cockcroft-Gault) 5.3 Glucose Level 132 mg/dL (70-99) Calcium Level 9.4 mg/dL (8.5-10.1) White Blood Count 17.2 x10^3/uL (4.0-11.0) Red Blood Count 3.00 x10^6/uL (3.50-5.40) Hemoglobin 9.1 g/dL (12.0-15.5) Hematocrit 27.9 % (36.0-47.0) Mean Corpuscular Volume 93 fL (79-100) Mean Corpuscular Hemoglobin 31 pg (25-35) Mean Corpuscular Hemoglobin Concent 33 g/dL (31-37) Red Cell Distribution Width 15.8 % (11.5-14.5) Platelet Count 176 x10^3/uL (140-400) Neutrophils (%) (Auto) 92 % (31-73) Lymphocytes (%) (Auto) 1 % (24-48) Monocytes (%) (Auto) 7 % (0-9) Eosinophils (%) (Auto) 0 % (0-3) Basophils (%) (Auto) 0 % (0-3) Neutrophils # (Auto) 15.8 x10^3/uL (1.8-7.7) Lymphocytes # (Auto) 0.2 x10^3/uL (1.0-4.8) Monocytes # (Auto) 1.2 x10^3/uL (0.0-1.1) Eosinophils # (Auto) 0.0 x10^3/uL (0.0-0.7) Basophils # (Auto) 0.0 x10^3/uL (0.0-0.2) Glucose (Fingerstick) 95 mg/dL (70-99) 84 mg/dL (70-99) Test 01/24/21 04:00 01/24/21 08:12 White Blood Count 16.0 x10^3/uL (4.0-11.0) Red Blood Count 2.88 x10^6/uL (3.50-5.40) Hemoglobin 8.9 g/dL (12.0-15.5) Hematocrit 27.1 % (36.0-47.0) Mean Corpuscular Volume 94 fL (79-100) Mean Corpuscular Hemoglobin 31 pg (25-35) Mean Corpuscular Hemoglobin Concent 33 g/dL (31-37) Red Cell Distribution Width 16.0 % (11.5-14.5) Platelet Count 165 x10^3/uL (140-400) Neutrophils (%) (Auto) 91 % (31-73) Lymphocytes (%) (Auto) 2 % (24-48) Monocytes (%) (Auto) 7 % (0-9) Eosinophils (%) (Auto) 0 % (0-3) Basophils (%) (Auto) 0 % (0-3) Neutrophils # (Auto) 14.5 x10^3/uL (1.8-7.7) Lymphocytes # (Auto) 0.3 x10^3/uL (1.0-4.8) Monocytes # (Auto) 1.2 x10^3/uL (0.0-1.1) Eosinophils # (Auto) 0.0 x10^3/uL (0.0-0.7) Basophils # (Auto) 0.0 x10^3/uL (0.0-0.2) Sodium Level 139 mmol/L (136-145) Potassium Level 4.2 mmol/L (3.5-5.1) Chloride Level 99 mmol/L (98-107) Carbon Dioxide Level 27 mmol/L (21-32) Anion Gap 13 (6-14) Blood Urea Nitrogen 28 mg/dL (7-20) Creatinine 5.7 mg/dL (0.6-1.0) Estimated GFR (Cockcroft-Gault) 9.2 BUN/Creatinine Ratio 5 (6-20) Glucose Level 83 mg/dL (70-99) Calcium Level 9.4 mg/dL (8.5-10.1) Total Bilirubin 0.6 mg/dL (0.2-1.0) Aspartate Amino Transf (AST/SGOT) 29 U/L (15-37) Alanine Aminotransferase (ALT/SGPT) 19 U/L (14-59) Alkaline Phosphatase 83 U/L (46-116) Total Protein 6.4 g/dL (6.4-8.2) Albumin 3.2 g/dL (3.4-5.0) Albumin/Globulin Ratio 1.0 (1.0-1.7) Glucose (Fingerstick) 73 mg/dL (70-99) Medications Current Medications Fentanyl Citrate (Fentanyl 2ml Vial) 75 mcg 1X ONCE IVP Last administered on 01/16/21at 08:31; Start 01/16/21 at 08:00; Stop 01/16/21 at 08:05; Status DC Ziprasidone (Geodon Im) 20 mg 1X ONCE IM Last administered on 01/16/21at 08:08; Start 01/16/21 at 08:00; Stop 01/16/21 at 08:05; Status DC Lorazepam (Ativan Inj) 2 mg 1X ONCE IVP Last administered on 01/16/21at 08:45; Start 01/16/21 at 08:45; Stop 01/16/21 at 08:46; Status DC Hydralazine HCl (Apresoline Inj) 20 mg 1X ONCE IVP Last administered on 01/16/21at 09:04; Start 01/16/21 at 09:00; Stop 01/16/21 at 09:02; Status DC Lorazepam (Ativan Inj) 2 mg 1X ONCE IVP Last administered on 01/16/21at 09:40; Start 01/16/21 at 09:30; Stop 01/16/21 at 09:31; Status DC Labetalol HCl (Normodyne Iv Push) 10 mg 1X ONCE IVP Last administered on 01/16/21at 12:03; Start 01/16/21 at 11:00; Stop 01/16/21 at 11:01; Status DC Aspirin (Aspirin Rectal Supp) 300 mg 1X ONCE OH Last administered on 01/16/21at 12:05; Start 01/16/21 at 11:15; Stop 01/16/21 at 11:16; Status DC Ondansetron HCl (Zofran) 4 mg PRN Q8HRS PRN IVP NAUSEA/VOMITING; Start 01/16/21 at 11:30; Stop 01/17/21 at 11:29; Status DC Insulin Human Lispro (HumaLOG) 0-5 UNITS TIDWMEALS SQ ; Start 01/16/21 at 12:00 Dextrose (Dextrose 50%-Water Syringe) 12.5 gm PRN Q15MIN PRN IV SEE COMMENTS; Start 01/16/21 at 11:30 Lorazepam (Ativan Inj) 1 mg PRN Q4HRS PRN IVP ANXIETY / AGITATION Last administered on 01/18/21at 04:18; Start 01/16/21 at 12:45 Hydralazine HCl (Apresoline Inj) 20 mg PRN Q4HRS PRN IVP ELEVATED BP, SEE COMMENTS Last administered on 01/16/21at 13:30; Start 01/16/21 at 13:00 Nicardipine HCl 50 mg/Sodium Chloride 250 ml @ 25 mls/hr CONT PRN IV SEE I/O RECORD Last administered on 01/17/21at 04:25; Start 01/16/21 at 14:00; Stop 01/17/21 at 16:08; Status DC Aspirin (Ecotrin) 81 mg DAILY PO Last administered on 01/23/21at 09:26; Start 01/17/21 at 13:00 Atorvastatin Calcium (Lipitor) 80 mg HS PO Last administered on 01/23/21at 22:06; Start 01/17/21 at 21:00 Carvedilol (Coreg) 12.5 mg BIDWMEALS PO Last administered on 01/23/21at 18:14; Start 01/17/21 at 17:00 Clonidine HCl (Catapres) 0.2 mg BID PO Last administered on 01/23/21at 09:26; Start 01/17/21 at 21:00; Stop 01/23/21 at 10:30; Status DC Clopidogrel Bisulfate (Plavix) 75 mg DAILY PO Last administered on 01/23/21 09:27; Start 01/17/21 at 13:00 EZETIMIBE (Zetia) 10 mg DAILY PO Last administered on 01/23/21at 09:24; Start 01/17/21 at 13:00 Hydralazine HCl (Apresoline) 50 mg TID PO Last administered on 01/23/21at 22:06; Start 01/17/21 at 14:00 Isosorbide Mononitrate (Imdur) 120 mg DAILY PO Last administered on 01/23/21at 14:50; Start 01/17/21 at 13:00 Minoxidil (Loniten) 2.5 mg BID PO Last administered on 01/23/21at 22:07; Start 01/17/21 at 21:00 Acetaminophen (Tylenol) 650 mg PRN Q6HRS PRN PO MILD PAIN / TEMP > 100.3'F Last administered on 01/18/21at 17:34; Start 01/17/21 at 20:45 Acetaminophen/ Hydrocodone Bitart (Lortab 7.5/325) 1 tab PRN Q6HRS PRN PO MODERATE PAIN Last administered on 01/21/21at 06:05; Start 01/17/21 at 20:45 Sodium Chloride 1,000 ml @ 1,000 mls/hr Q1H PRN IV hypotension; Start 01/18/21 at 11:30; Stop 01/18/21 at 17:29; Status DC Albumin Human 200 ml @ 200 mls/hr 1X PRN PRN IV Hypotension; Start 01/18/21 at 11:30; Stop 01/18/21 at 17:29; Status DC Sodium Chloride 1,000 ml @ 400 mls/hr Q2H30M PRN IV PATENCY; Start 01/18/21 at 11:30; Stop 01/18/21 at 23:29; Status DC Info (PHARMACY MONITORING -- do not chart) 1 each PRN DAILY PRN MC SEE COMMENTS; Start 01/18/21 at 11:30; Status UNV Info (PHARMACY MONITORING -- do not chart) 1 each PRN DAILY PRN MC SEE COMMENTS; Start 01/18/21 at 11:30; Status Cancel Fentanyl Citrate (Fentanyl 2ml Vial) 25 mcg PRN Q3HRS PRN IV PAIN Last administered on 01/21/21at 16:15; Start 01/18/21 at 14:00 Ondansetron HCl (Zofran Odt) 4 mg PRN Q6HRS PRN PO NAUSEA/VOMITING Last administered on 01/21/21at 06:04; Start 01/19/21 at 09:30 Oxycodone HCl (Roxicodone) 10 mg PRN Q4HRS PRN PO SEVERE PAIN Last administered on 01/24/21at 02:35; Start 01/19/21 at 17:30 Simethicone (Gas-X) 80 mg PRN TID PRN PO GAS / BLOATING Last administered on 01/21/21at 06:04; Start 01/19/21 at 21:15 Lorazepam (Ativan) 0.5 mg PRN Q6HRS PRN PO ANXIETY / AGITATION Last administered on 01/23/21at 22:06; Start 01/19/21 at 21:15 Pantoprazole Sodium (Protonix) 40 mg DAILYAC PO Last administered on 01/22/21at 09:37; Start 01/21/21 at 10:00; Stop 01/22/21 at 11:38; Status DC Sodium Chloride 1,000 ml @ 1,000 mls/hr Q1H PRN IV hypotension; Start 01/21/21 at 12:45; Stop 01/21/21 at 18:44; Status DC Albumin Human 200 ml @ 200 mls/hr 1X PRN PRN IV Hypotension; Start 01/21/21 at 12:45; Stop 01/21/21 at 18:44; Status DC Acetaminophen (Tylenol) 500 mg 1X PRN PRN PO MILD PAIN / TEMP > 100.3'F; Start 01/21/21 at 12:45; Stop 01/22/21 at 12:44; Status DC Diphenhydramine HCl (Benadryl) 25 mg 1X PRN PRN IV ITCHING; Start 01/21/21 at 12:45; Stop 01/22/21 at 12:44; Status DC Diphenhydramine HCl (Benadryl) 25 mg 1X PRN PRN IV ITCHING; Start 01/21/21 at 12:45; Stop 01/22/21 at 12:44; Status DC Sodium Chloride 1,000 ml @ 400 mls/hr Q2H30M PRN IV PATENCY; Start 01/21/21 at 12:45; Stop 01/22/21 at 00:44; Status DC Lidocaine HCl (Xylocaine-Mpf 1% 2ml Vial) 2 ml 1X PRN PRN INJ FOR DIALYSIS; Start 01/21/21 at 12:45; Stop 01/22/21 at 12:44; Status DC Info (PHARMACY MONITORING -- do not chart) 1 each PRN DAILY PRN MC SEE COMMENTS; Start 01/21/21 at 12:45; Status UNV Info (PHARMACY MONITORING -- do not chart) 1 each PRN DAILY PRN MC SEE COMMENTS; Start 01/21/21 at 12:45 Bisacodyl (Dulcolax Supp) 10 mg PRN DAILY PRN [place] CONSTIPATION; Start 01/21/21 at 19:30 Senna/Docusate Sodium (Senna Plus) 2 tab PRN BID PRN PO CONSTIPATION; Start 01/21/21 at 19:30 Calcium Carbonate/ Glycine (Tums) 500 mg PRN AFTMEALHC PRN PO INDIGESTION Last administered on 01/22/21at 09:31; Start 01/22/21 at 03:15 Metoclopramide HCl (Reglan Vial) 5 mg PRN Q6HRS PRN IVP NAUSEA/VOMITING; Start 01/22/21 at 11:45 Pantoprazole Sodium (PROTONIX VIAL for IV PUSH) 40 mg DAILYAC IVP ; Start 01/23/21 at 07:30 Sodium Chloride 1,000 ml @ 1,000 mls/hr Q1H PRN IV hypotension; Start 01/23/21 at 09:30; Stop 01/23/21 at 15:29; Status DC Albumin Human 200 ml @ 200 mls/hr 1X PRN PRN IV Hypotension; Start 01/23/21 at 09:30; Stop 01/23/21 at 15:29; Status DC Sodium Chloride 1,000 ml @ 400 mls/hr Q2H30M PRN IV PATENCY; Start 01/23/21 at 09:30; Stop 01/23/21 at 21:29; Status DC Lidocaine HCl (Xylocaine-Mpf 1% 2ml Vial) 2 ml 1X PRN PRN INJ FOR DIALYSIS; Start 01/23/21 at 09:30; Stop 01/24/21 at 09:29 Info (PHARMACY MONITORING -- do not chart) 1 each PRN DAILY PRN MC SEE COMMENTS; Start 01/23/21 at 09:30; Status UNV Info (PHARMACY MONITORING -- do not chart) 1 each PRN DAILY PRN MC SEE COMMENTS; Start 01/23/21 at 09:30 Clonidine HCl (Catapres Tts-3) 1 patch WEEKLY TD Last administered on 01/23/21at 18:14; Start 01/23/21 at 09:00 Quetiapine Fumarate (SEROquel) 12.5 mg [id number] PO Last administered on 01/23/21at 18:14; Start 01/23/21 at 11:00; Stop 01/30/21 at 10:59 Active Scripts Active Lactulose 20 Gm/30 Ml Solution 20 Gm PO BID 5 Days Culturelle (Lactobacillus Rhamnosus Gg) 1 Each Cap.sprink 1 Cap PO BID Metoclopramide Hcl 5 Mg/1 Ml Vial 5 Mg IV PRN Q6HRS PRN Metoclopramide Hcl 5 Mg/1 Ml Vial 5 Mg IV [id number] Ondansetron Hcl 4 Mg/2 Ml Vial (Ondansetron Hcl/Pf) 4 Mg/2 Ml Vial 4 Mg IV PRN Q6HRS PRN Buspirone Hcl 5 Mg Tablet 5 Mg PO TID Quetiapine Fumarate 25 Mg Tablet 12.5 Mg PO PRN Q6HRS PRN Quetiapine Fumarate 25 Mg Tablet 25 Mg PO QHS Sertraline Hcl 50 Mg Tablet 50 Mg PO DAILY Hydrocodone-Apap 7.5-325 (Hydrocodone Bit/Acetaminophen) 1 Each Tablet 1 Tab PO PRN Q8HRS PRN Fentanyl 0.05 Mg/Ml Vial (Fentanyl Citrate/Pf) 50 Mcg/1 Ml Vial 50 Mcg IV PRN Q4HRS PRN [Darbepoetin Ty In Polysorbat] 60 MCG/0.3 ML Disp.syrin 60 Mcg SQ WEEKLYHS Zyvox (Linezolid) 600 Mg Tablet 600 Mg PO BID Vitamin D3 (Cholecalciferol (Vitamin D3)) 1,000 Unit Tablet 1 Tab PO DAILY [Calcium Acetate] 667 MG Capsule 1,334 Mg PO TIDWMEALS Mapap (Acetaminophen) 500 Mg Tablet 1,000 Mg PO TID Carvedilol (Carvedilol) 12.5 Mg Tablet 12.5 Mg PO BIDWMEALS Minoxidil 2.5 Mg Tablet 2.5 Mg PO BID Isosorbide Mononitrate Er (Isosorbide Mononitrate) 30 Mg Tab.er.24h 120 Mg PO DAILY Montelukast Sodium Tablet (Montelukast Sodium) 10 Mg Tablet 10 Mg PO QHS Polyethylene Glycol 3350 2,500 Gm Powder 17 Gm PO DAILY Novolog Flexpen (Insulin Aspart) 100 Unit/1 Ml Insuln.pen 0 Units SQ TIDAC Take sub q tid ac: BS 151-200=2 unit, 201-250=3 unit, [id number], BS 301-350=6 unit, BS 351-400 =8 unit. BS>401 call MD Renetta Busch 10,000 Units Capsule (Lipase/Protease/Amylase) 1 Each Capsule. 2 Cap PO TIDWMEALS TAke 2 cap tid with meals Nephro-Dnony Tablet (Folic Acid/Vitamin B Comp W-C) 0.8 Mg Tablet 1 Tab PO DAILY Benadryl (Diphenhydramine Hcl) 25 Mg Capsule 25 Mg PO PRN Q6HRS PRN Reported Lactulose 10 Gm Packet 10 Gm PO Q6HRS Lidocaine 15 Gm Cream..g. 1 Karma TP TID PRN 30 Days Isosorbide Mononitrate Er (Isosorbide Mononitrate) 60 Mg Tab.er.24h 1 Tab PO DAILY Vitamin A 2,400 Mcg Capsule 1,250 Mcg PO WEEKLY Hydrocodone-Apap 10-325 (Hydrocodone Bit/Acetaminophen) 1 Tab Tablet 1 Tab PO PRN Q6HRS PRN Ultram (Tramadol Hcl) 50 Mg Tablet 1 Tab PO BID MDD 2 Tablet(s) 30 Days Hydralazine Hcl 50 Mg Tablet 1 Tab PO TID Acetaminophen 325 Mg Tablet 2 Tab PO Q6HRS PRN 30 Days Glucose Gel (Dextrose) 38 Gm Gel..gram. 15 Gm PO PRN Sertraline Hcl 100 Mg Tablet 100 Mg PO DAILY Glucagon Emergency Kit (Glucagon,Human Recombinant) 1 Mg Kit 1 Mg IM PRN Senna Plus Tablet (Sennosides/Docusate Sodium) 1 Each Tablet 2 Tab PO QHS 14 Days Zetia (Ezetimibe) 10 Mg Tablet 1 Tab PO DAILY 30 Days Renvela (Sevelamer Carbonate) 800 Mg Tablet 800 Mg PO TIDWMEALS Escitalopram Oxalate 10 Mg Tablet 1 Tab PO DAILY Lyrica (Pregabalin) 50 Mg Capsule 25 Mg PO QHS [creon] 1 Cap PO TIDAC Oxycodone HCl 5 Mg Tablet 5 Mg PO Q8HRS PRN [zenpep] 10 Mg PO TIDAC Clonidine Hcl 0.2 Mg Tablet 0.2 Mg PO BID Zofran (Ondansetron Hcl) 4 Mg Tablet 1 Tab PO Q4HRS PRN Sensipar (Cinacalcet Hcl) 30 Mg Tablet 1 Tab PO DAILY 30 Days Mirtazapine 15 Mg Tablet 1 Tab PO QHS Atorvastatin Calcium 40 Mg Tablet 80 Mg PO HS Minoxidil 2.5 Mg Tablet 2.5 Mg PO DAILY Amlodipine Besylate 10 Mg Tablet 10 Mg PO DAILY Lidocaine PATCH (Lidocaine) 1 Each Adh..patch 1 Each TP DAILY REMOVE AFTER 12 HOURS Proair Hfa Inhaler (Albuterol Sulfate) 8.5 Gm Hfa.aer.ad 2 Puff INH PRN Q6HRS PRN Nitrostat (Nitroglycerin) 0.4 Mg Tab.subl 0.4 Mg SL PRN Q5MIN PRN Plavix (Clopidogrel Bisulfate) 75 Mg Tablet 1 Tab PO DAILY Zoloft (Sertraline Hcl) 100 Mg Tablet 1 Tab PO DAILY Pantoprazole Sodium (Pantoprazole Sodium) 40 Mg Tablet. 1 Tab PO DAILY Losartan Potassium 100 Mg Tablet 100 Mg PO DAILY Aspir 81 (Aspirin) 81 Mg Tablet.dr 81 Mg PO DAILY Vitals/I & O Vital Sign - Last 24 Hours 01/23/21 01/23/21 01/23/21 01/23/21 09:26 09:26 14:50 14:51 Pulse 63 63 65 65 B/P (MAP) 158/61 158/61 155/53 155/53 01/23/21 01/23/21 01/23/21 01/23/21 14:52 14:53 15:00 18:14 Temp 97.7 97.7 Pulse 65 65 75 75 Resp 16 B/P (MAP) 155/53 155/53 155/53 (87) 155/53 Pulse Ox 100 O2 Delivery Room Air 01/23/21 01/23/21 01/23/21 01/23/21 19:00 20:00 22:06 22:07 Temp 97.8 97.8 Pulse 74 74 74 Resp 20 B/P (MAP) 140/51 (80) 140/51 140/51 Pulse Ox 99 O2 Delivery Room Air Room Air O2 Flow Rate 2.0 01/23/21 01/24/21 01/24/21 01/24/21 23:00 02:35 02:45 03:05 Temp 98.2 98.0 98.2 98.0 Pulse 73 72 Resp 16 18 B/P (MAP) 128/48 (74) 127/89 (102) Pulse Ox 97 97 97 97 O2 Delivery Room Air Room Air Room Air Room Air O2 Flow Rate 2.0 2.0 01/24/21 07:00 Temp 98.0 98.0 Pulse 78 Resp 16 B/P (MAP) 158/51 (86) Pulse Ox 99 O2 Delivery Room Air Intake and Output 01/23/21 01/23/21 01/24/21 15:00 23:00 07:00 Intake Total 275 ml 100 ml 0 ml Output Total 0 ml Balance 275 ml 100 ml 0 ml Justicifation of Admission Dx: Justifications for Admission: Justification of Admission Dx: N/A MARINA REYNOSO MD Jan 24, 2021 09:00
--- NOTE | 2021-01-24 10:50 | PDOC ---
Date of Service: DATE: 01/24/21 TIME: 10:48 Subjective: Subjective: No meaningful information from pt. Objective: Objective: Reviewed w/ nurse - confused, won't eat, refuses IV. Vital Signs: Vital Signs Date Time Temp Pulse Resp B/P (MAP) Pulse Ox O2 Delivery O2 Flow Rate FiO2 01/24/21 07:00 98.0 78 16 158/51 (86) 99 Room Air 98.0 01/24/21 03:05 2.0 Labs: Laboratory Tests Test 01/23/21 16:41 01/23/21 21:09 01/24/21 08:12 Glucose (Fingerstick) 95 mg/dL (70-99) 84 mg/dL (70-99) 73 mg/dL (70-99) PE: GEN: in COVID isolation, sideways in bed, gown mostly off LUNGS: room air HEART: RR per chart ABD: non-distended NEURO/PSYCH: awake A/P: COVID, encephalopathy Chronic abd pain, GERD, gastroparesis -- Difficult situation. Continue support. Note Reglan changed to PO (solution) TIDAC. Justicifation of Admission Dx: Justifications for Admission: Justification of Admission Dx: N/A ALL GONZALEZ Jan 24, 2021 10:50
[2021-01-24] MEDS: CLOPIDOGREL BISULFATE 75 MG TABLET PO SCH (10:55)
[2021-01-24] MEDS: EZETIMIBE 10 MG TABLET. PO SCH (10:55)
[2021-01-24] MEDS: ISOSORBIDE MONONITRATE ER 30 MG TAB.ER.24H PO SCH (10:55)
[2021-01-24] MEDS: MINOXIDIL 2.5 MG TABLET PO SCH ×2 (10:56→21:00)
[2021-01-24] MEDS: CALCIUM CARBONATE 500 MG TAB.CHEW PO PRN (10:56)
[2021-01-24] MEDS: ASPIRIN ENTERIC COATED 81 MG TABLET.DR. PO SCH (10:56)
[2021-01-24] MEDS: CARVEDILOL 12.5 MG TABLET. PO SCH ×2 (10:57→17:00)
[2021-01-24] MEDS: HYDROcodone/APAP 7.5/325MG 1 TAB TABLET PO PRN (10:57)
[2021-01-24] MEDS: QUEtiapine 25 MG TABLET. PO SCH ×3 (10:57→21:00)
[2021-01-24] MEDS: METOCLOPRAMIDE ORAL SOLN 10 MG/10 ML SOLUTION. PO SCH ×4 (10:59→21:00)
--- NOTE | 2021-01-24 11:08 | PDOC ---
Infectious Disease Note Subjective: Subjective We have been asked to see pt again due to leucocytosis 16K today see last id consult for full details events noted Patient remains confused Pulls out her IV, refuses her medications Poor p.o. intake Currently talking to her daughter on phone Does not answer most of the questions Was able to tell me that she is at [facility] Has back pain D/W RN Remains afebrile No nausea, vomiting or diarrhea reported On room air Vital Signs: Vital Signs Vital Signs Date Time Temp Pulse Resp B/P (MAP) Pulse Ox O2 Delivery O2 Flow Rate FiO2 01/24/21 10:57 80 01/24/21 07:00 98.0 16 158/51 (86) 99 Room Air 98.0 01/24/21 03:05 2.0 Physical Exam: PHYSICAL EXAM GEN: Pt is confused, sitting upright in bed talking to her daughter on phone on room air HEENT: Normocephalic atraumatic, NECK: Supple, no meningismus LUNGS: Decreased breath sound at the bases no wheezing HEART: S1, S2 regular. ABDOMEN: Soft, nontender, no organomegaly. EXTREMITIES: No edema or cyanosis. SKIN: Unremarkable. NEUROLOGIC: confused, moves all 4 extremities no Rachel in place Back reveals normal curvature, no overlying skin changes or spine tenderness noted Medications: Inpatient Meds: Medications reviewed. Labs: Lab Laboratory Tests Test 01/23/21 16:41 01/23/21 21:09 01/24/21 04:00 01/24/21 08:12 Glucose (Fingerstick) 95 mg/dL (70-99) 84 mg/dL (70-99) 73 mg/dL (70-99) White Blood Count 16.0 x10^3/uL (4.0-11.0) Red Blood Count 2.88 x10^6/uL (3.50-5.40) Hemoglobin 8.9 g/dL (12.0-15.5) Hematocrit 27.1 % (36.0-47.0) Mean Corpuscular Volume 94 fL (79-100) Mean Corpuscular Hemoglobin 31 pg (25-35) Mean Corpuscular Hemoglobin Concent 33 g/dL (31-37) Red Cell Distribution Width 16.0 % (11.5-14.5) Platelet Count 165 x10^3/uL (140-400) Neutrophils (%) (Auto) 91 % (31-73) Lymphocytes (%) (Auto) 2 % (24-48) Monocytes (%) (Auto) 7 % (0-9) Eosinophils (%) (Auto) 0 % (0-3) Basophils (%) (Auto) 0 % (0-3) Neutrophils # (Auto) 14.5 x10^3/uL (1.8-7.7) Lymphocytes # (Auto) 0.3 x10^3/uL (1.0-4.8) Monocytes # (Auto) 1.2 x10^3/uL (0.0-1.1) Eosinophils # (Auto) 0.0 x10^3/uL (0.0-0.7) Basophils # (Auto) 0.0 x10^3/uL (0.0-0.2) Sodium Level 139 mmol/L (136-145) Potassium Level 4.2 mmol/L (3.5-5.1) Chloride Level 99 mmol/L (98-107) Carbon Dioxide Level 27 mmol/L (21-32) Anion Gap 13 (6-14) Blood Urea Nitrogen 28 mg/dL (7-20) Creatinine 5.7 mg/dL (0.6-1.0) Estimated GFR (Cockcroft-Gault) 9.2 BUN/Creatinine Ratio 5 (6-20) Glucose Level 83 mg/dL (70-99) Calcium Level 9.4 mg/dL (8.5-10.1) Total Bilirubin 0.6 mg/dL (0.2-1.0) Aspartate Amino Transf (AST/SGOT) 29 U/L (15-37) Alanine Aminotransferase (ALT/SGPT) 19 U/L (14-59) Alkaline Phosphatase 83 U/L (46-116) Total Protein 6.4 g/dL (6.4-8.2) Albumin 3.2 g/dL (3.4-5.0) Albumin/Globulin Ratio 1.0 (1.0-1.7) Objective: Assessment: 1. COVID-19 positive. 2. Encephalopathy , 3. End-stage renal disease, on hemodialysis. 4. Coronary artery disease. 5. Hypertension. 6. Coronary artery disease. 7. h/o Cerebrovascular accident in the past. 8.Gastroparesis, nausea and vomiting letter resolved 9. Leucocytosis afebrile this admission, UA neg on admission,on RA, could be reactive 10. Back pain appears musculoskeletal Plan: Plan of Care UA and urine culture Chest x-ray , thoracic spine x-ray Patient remains afebrile Monitor off antibiotics Trend WBC Neurology following, MRI and LP are on hold cont supportive care monitor labs and cultures Continue aspiration precaution d/w HERMANN NICHOLSON MD Jan 24, 2021 11:08
--- NOTE | 2021-01-24 11:38 | CONS ---
DATE OF CONSULTATION: 01/24/2021 PULMONARY CONSULTATION ATTENDING PHYSICIAN: Saravanan Ng MD REASON FOR CONSULTATION: COVID-19 pneumonia. HISTORY OF PRESENT ILLNESS: The patient is a 60-year-old female who has past medical history of end-stage renal disease, on hemodialysis; history of moderate pericardial effusion; pleural effusion; coronary artery disease and multiple other problems. She was hospitalized for COVID-19 pneumonia. The patient has encephalopathy. I am unable to obtain much history from the patient. She currently has been refusing IVs. She is refusing any treatment. She is currently on room air. Her oxygen saturation last reported on 2 liters was 97%. Her chest x-ray done yesterday showed patchy bilateral perihilar opacities consistent with viral pneumonia. She was COVID positive. PAST MEDICAL HISTORY: Extensive and is all listed in Dr. Saravanan Ng's note including pertinent positive for coronary artery disease; history of previous pericardial effusion; history of end-stage renal disease, on hemodialysis; history of asthma; CVA with left-sided weakness. SURGERIES: Including cholecystectomy, hysterectomy and others as discussed in Dr. Saravanan Ng's note. FAMILY HISTORY: Coronary artery disease. SOCIAL HISTORY: Remote history of tobacco use. ALLERGIES: All reviewed. MEDICATIONS: Reviewed as listed in the MRAD. PHYSICAL EXAMINATION: GENERAL: She is not communicating. She is on room air. VITAL SIGNS: Sats are 97%. NECK: Supple. LUNGS: Clear. CARDIOVASCULAR: With a regular rate. ABDOMEN: Soft. EXTREMITIES: With no pitting edema. LABORATORY DATA: Reviewed. BUN is 28, creatinine 5.7. White cell count is 16.0, it was 9.6 on the 18th. IMPRESSION: 1. Acute respiratory failure secondary to COVID-19 viral pneumonia. However, her oxygen requirement has improved and currently on room. 2. Abnormal chest x-ray with bilateral interstitial infiltrates consistent with viral pneumonia. improved and almost resolved 01/24 3. Leukocytosis without any fever. Likely reactive. Currently, being followed by Infectious Disease. She is currently not on any antibiotics. We will await further ID recommendations. RECOMMENDATIONS: 1. Discussed with RN. At this time, pulmonary status stable. She is currently on room air. 2. Follow chest x-ray as needed. 3. Follow white cell count. 4. Follow ID recommendations regarding initiation of any antibiotics. 5. At this point, the patient does not require remdesivir or steroids. She is currently on room air. We will be available for further recommendations. Please let us know if any further help is needed regarding her care NORMA DR: Vitaliy TID: [id number] MTDD
--- NOTE | 2021-01-24 11:51 | PDOC ---
Renal-Progress Notes Subjective Notes Notes STILL CONFUSED History of Present Illness Hx of present illness OVERALL IMPROVED Vitals Vitals Vital Signs Date Time Temp Pulse Resp B/P (MAP) Pulse Ox O2 Delivery O2 Flow Rate FiO2 01/24/21 10:57 80 01/24/21 07:00 98.0 16 158/51 (86) 99 Room Air 98.0 01/24/21 03:05 2.0 Weight Weight [ ] I.O. Intake and Output Intake and Output 01/24/21 07:00 Intake Total 375 ml Output Total 0 ml Balance 375 ml Intake Oral 375 ml Output Urine Total 0 ml # Voids 3 Labs Labs Laboratory Tests Test 01/23/21 16:41 01/23/21 21:09 01/24/21 04:00 01/24/21 08:12 Glucose (Fingerstick) 95 mg/dL (70-99) 84 mg/dL (70-99) 73 mg/dL (70-99) White Blood Count 16.0 x10^3/uL (4.0-11.0) Red Blood Count 2.88 x10^6/uL (3.50-5.40) Hemoglobin 8.9 g/dL (12.0-15.5) Hematocrit 27.1 % (36.0-47.0) Mean Corpuscular Volume 94 fL (79-100) Mean Corpuscular Hemoglobin 31 pg (25-35) Mean Corpuscular Hemoglobin Concent 33 g/dL (31-37) Red Cell Distribution Width 16.0 % (11.5-14.5) Platelet Count 165 x10^3/uL (140-400) Neutrophils (%) (Auto) 91 % (31-73) Lymphocytes (%) (Auto) 2 % (24-48) Monocytes (%) (Auto) 7 % (0-9) Eosinophils (%) (Auto) 0 % (0-3) Basophils (%) (Auto) 0 % (0-3) Neutrophils # (Auto) 14.5 x10^3/uL (1.8-7.7) Lymphocytes # (Auto) 0.3 x10^3/uL (1.0-4.8) Monocytes # (Auto) 1.2 x10^3/uL (0.0-1.1) Eosinophils # (Auto) 0.0 x10^3/uL (0.0-0.7) Basophils # (Auto) 0.0 x10^3/uL (0.0-0.2) Sodium Level 139 mmol/L (136-145) Potassium Level 4.2 mmol/L (3.5-5.1) Chloride Level 99 mmol/L (98-107) Carbon Dioxide Level 27 mmol/L (21-32) Anion Gap 13 (6-14) Blood Urea Nitrogen 28 mg/dL (7-20) Creatinine 5.7 mg/dL (0.6-1.0) Estimated GFR (Cockcroft-Gault) 9.2 BUN/Creatinine Ratio 5 (6-20) Glucose Level 83 mg/dL (70-99) Calcium Level 9.4 mg/dL (8.5-10.1) Total Bilirubin 0.6 mg/dL (0.2-1.0) Aspartate Amino Transf (AST/SGOT) 29 U/L (15-37) Alanine Aminotransferase (ALT/SGPT) 19 U/L (14-59) Alkaline Phosphatase 83 U/L (46-116) Total Protein 6.4 g/dL (6.4-8.2) Albumin 3.2 g/dL (3.4-5.0) Albumin/Globulin Ratio 1.0 (1.0-1.7) Review of Systems Constitutional: yes: other (CONFUSED) Physical Exam General Appearance: mild distress Skin: warm Respiratory: bilateral CTA, decreased breath sounds Heart: S1S2 Abdomen: soft, bowel sounds present Genitourinary: bladder flat Extremities: pulses present Neurology: confused Musculoskeletal: Osteoarthritis Assessment Assessment IMP COVID 19 POS [id number] ARM BC AVF HTN [id number] ENCEPHALOPATHY DUE TO ABOVE LEUCOCYTOSIS-NEW ANEMIA FLUID OVERLOAD-RESOLVED ACUTE ON CHRONIC DIASTOLIC CHF FEVER CAD WITH CABG PLAN EDGAR ON HOLD CONT HOME MEDS RENAL DIET ENC COMPLIANCE ID EVAL AND TX HD TTS ID EVAL AND TX CATAPRESS TTS PATCH HAVE DISCUSSED CASE WITH DR DANG WILL FOLLOW UPDATED DAUGHTER TING AMADO MD Jan 24, 2021 11:51
--- NOTE | 2021-01-24 14:24 | NUR ---
SS following up with discharge planning. SS reviewed pt chart and discussed with pt RN. Pt is currently on room air. COVID19 positive. PT/OT recommended fdc unit. ID reconsulted. Per RN, pt not medically ready for discharge at this time. SS phoned and faxed referrals to [facility], ; fax [phone], and [facility], ; fax [phone]. SS will continue to follow for discharge planning.
--- NOTE | 2021-01-24 15:05 | RAD ---
Single view of the chest. 01/24/2021 1:53 PM Indication: Reason: covid : Comparison: Chest radiograph, yesterday Findings: Prior median sternotomy again noted. The heart is mildly enlarged. Patchy bilateral infiltrates are a ppear improved in the interim. No pneumothorax or definitive effusion is seen. No acute osseous maldonado es are identified. IMPRESSION: Interval improvement in bilateral infiltrates. Electronically signed by: Blake Alfaro MD (01/24/2021 3:02 PM) [id number]
--- NOTE | 2021-01-24 16:44 | RAD ---
XR THORACIC SPINE 1 VIEW History: Pain. Comparison: Chest x-ray 01/24/2021. Technique: AP view of the thoracic spine. Findings: There are 12 rib-bearing lumbar vertebral segments. Mild dextroconvex curvature. Degenerative endplat e changes and mild disc height loss at T11-T12. Postsurgical changes of the mediastinum and sternotom y wires. Right upper quadrant cholecystectomy clips. Lower lung volumes, likely based upon technique. Impression: 1. Mild degenerative changes of lower thoracic spine. Limited evaluation due to single frontal view only. Electronically signed by: Fredrick Celis MD (01/24/2021 4:42 PM) [id number]
[2021-01-24] MEDS: ATORVASTATIN CALCIUM 40 MG TABLET. PO SCH (21:00)
[2021-01-25 03:30] VITALS: BP 122/41
[2021-01-25 04:48] LABS: BASO % 0 % (0-3); EOS % 0 % (0-3); HEMOGLOBIN 8.2 g/dL (12.0-15.5); LYMPH # 0.5 x10^3/uL (1.0-4.8); LYMPH % 3 % (24-48); MEAN CORPUSCULAR HEMOGLOBIN 31 pg (25-35); MEAN CORPUSCULAR HGB CONC 33 g/dL (31-37); MEAN CORPUSCULAR VOLUME 93 fL (79-100); MONO # 0.9 x10^3/uL (0.0-1.1); MONO % 6 % (0-9); NEUT # 15.2 x10^3/uL (1.8-7.7); NEUT % 91 % (31-73); PLATELET COUNT 176 x10^3/uL (140-400); RED BLOOD COUNT 2.68 x10^6/uL (3.50-5.40); RED CELL DISTRIBUTION WIDTH 15.8 % (11.5-14.5); WHITE BLOOD COUNT 16.6 x10^3/uL (4.0-11.0)
[2021-01-25 05:11] LABS: CREATININE 7.6 mg/dL (0.6-1.0); GFR 6.6; POTASSIUM 4.7 mmol/L (3.5-5.1)
[2021-01-25 07:00] VITALS: BP 123/45
[2021-01-25] MEDS: METOCLOPRAMIDE ORAL SOLN 10 MG/10 ML SOLUTION. PO SCH ×4 (07:30→20:41)
[2021-01-25] MEDS: PANTOPRAZOLE 40 MG TABLET.DR. PO SCH (07:30)
[2021-01-25] MEDS: CARVEDILOL 12.5 MG TABLET. PO SCH ×2 (08:00→17:00)
[2021-01-25] MEDS: INSULIN LISPRO 300 UNITS/3 ML VIAL. SQ SCH ×3 (08:00→17:00)
--- NOTE | 2021-01-25 08:49 | PDOC ---
Infectious Disease Note Subjective: Subjective Patient is sedated arousable but did not answer any questions D/W RN Poor p.o. intake Remains afebrile On room air No nausea, vomiting or diarrhea reported Vital Signs: Vital Signs Vital Signs Date Time Temp Pulse Resp B/P (MAP) Pulse Ox O2 Delivery O2 Flow Rate FiO2 01/25/21 07:00 98.1 64 18 123/45 (71) 96 Room Air 98.1 Physical Exam: PHYSICAL EXAM GEN: Pt resting quietly on ra HEENT: Normocephalic atraumatic, LUNGS: Decreased breath sound at the bases , no accessory muscle use HEART: S1, S2 regular. ABDOMEN: Soft, nontender, no organomegaly. no pereira EXTREMITIES: No edema or cyanosis. SKIN: Unremarkable. NEUROLOGIC: sleeping,but is moving all 4 ext;remains confused per staff Pscyh calm Medications: Inpatient Meds: Medications reviewed. Labs: Lab Laboratory Tests Test 01/24/21 13:04 01/24/21 20:58 01/25/21 04:00 01/25/21 07:31 Glucose (Fingerstick) 90 mg/dL (70-99) 101 mg/dL (70-99) 84 mg/dL (70-99) White Blood Count 16.6 x10^3/uL (4.0-11.0) Red Blood Count 2.68 x10^6/uL (3.50-5.40) Hemoglobin 8.2 g/dL (12.0-15.5) Hematocrit 25.0 % (36.0-47.0) Mean Corpuscular Volume 93 fL (79-100) Mean Corpuscular Hemoglobin 31 pg (25-35) Mean Corpuscular Hemoglobin Concent 33 g/dL (31-37) Red Cell Distribution Width 15.8 % (11.5-14.5) Platelet Count 176 x10^3/uL (140-400) Neutrophils (%) (Auto) 91 % (31-73) Lymphocytes (%) (Auto) 3 % (24-48) Monocytes (%) (Auto) 6 % (0-9) Eosinophils (%) (Auto) 0 % (0-3) Basophils (%) (Auto) 0 % (0-3) Neutrophils # (Auto) 15.2 x10^3/uL (1.8-7.7) Lymphocytes # (Auto) 0.5 x10^3/uL (1.0-4.8) Monocytes # (Auto) 0.9 x10^3/uL (0.0-1.1) Eosinophils # (Auto) 0.0 x10^3/uL (0.0-0.7) Basophils # (Auto) 0.0 x10^3/uL (0.0-0.2) Sodium Level 135 mmol/L (136-145) Potassium Level 4.7 mmol/L (3.5-5.1) Chloride Level 98 mmol/L (98-107) Carbon Dioxide Level 26 mmol/L (21-32) Anion Gap 11 (6-14) Blood Urea Nitrogen 41 mg/dL (7-20) Creatinine 7.6 mg/dL (0.6-1.0) Estimated GFR (Cockcroft-Gault) 6.6 Glucose Level 88 mg/dL (70-99) Calcium Level 9.0 mg/dL (8.5-10.1) Objective: Assessment: 1. COVID-19 positive. 2. Encephalopathy , 3. End-stage renal disease, on hemodialysis. 4. Coronary artery disease. 5. Hypertension. 6. Coronary artery disease. 7. h/o Cerebrovascular accident in the past. 8.Gastroparesis, nausea and vomiting letter resolved 9. Leucocytosis afebrile this admission, UA neg on admission,on RA, could be reactive, KUB shows nonspecific changes 10. Back pain appears musculoskeletal Plan: Plan of Care no ua and uc available as pt did not cooperate for straight cath Chest x-ray , thoracic spine x-ray reviewed no acute abnormality Obtain blood culture if temperature greater than 101 F May need further imaging depending on clinical status Patient remains afebrile at this time Monitor off antibiotics Trend WBC cont supportive care monitor labs and cultures Maintain aspiration precaution Prognosis poor d/w RN HERMANN BA MD Jan 25, 2021 08:49
[2021-01-25] MEDS: ISOSORBIDE MONONITRATE ER 30 MG TAB.ER.24H PO SCH (09:00)
[2021-01-25] MEDS: EZETIMIBE 10 MG TABLET. PO SCH (09:00)
[2021-01-25] MEDS: ASPIRIN ENTERIC COATED 81 MG TABLET.DR. PO SCH (09:00)
[2021-01-25] MEDS: MINOXIDIL 2.5 MG TABLET PO SCH ×2 (09:00→20:40)
[2021-01-25] MEDS: QUEtiapine 25 MG TABLET. PO SCH ×3 (09:00→20:41)
[2021-01-25] MEDS: CLOPIDOGREL BISULFATE 75 MG TABLET PO SCH (09:00)
[2021-01-25 11:00] VITALS: BP 142/52
--- NOTE | 2021-01-25 11:28 | PDOC ---
PROGRESS NOTES Date of Service: DATE: 01/25/21 TIME: 11:23 Subjective Subjective Pt sleepy today Objective Objective Vital Signs Date Time Temp Pulse Resp B/P (MAP) Pulse Ox O2 Delivery O2 Flow Rate FiO2 01/25/21 07:00 98.1 64 18 123/45 (71) 96 Room Air 98.1 Intake and Output 01/25/21 07:00 Intake Total 75 ml Balance 75 ml Intake Oral 75 ml Physical Exam Abdomen: Soft, No tenderness Heart: Regular rate (SR), Normal S1, Normal S2, Other (3/6 systolic murmur to RAYMOND border) Extremities: No edema General: No acute distress HEENT: Atraumatic, Mucous membr. moist/pink Lungs: Other (diminished bases) MUSCULOSKELETAL: Osteoarthritic changes both hands Neuro: Other (sleepy this morning) Skin: No breakdown, No significant lesion Diagnosis Problem List Problems Medical Problems: (1) Altered mental status Status: Acute (2) ESRD (end stage renal disease) on dialysis Status: Acute (3) Hypertensive urgency Status: Acute Assessment Assessment 1. Acute metabolic encephalopathy, improving. 2. Acute hypertensive crisis. improved. 3. End-stage renal disease on hemodialysis. 4. Anemia. 5. Coronary artery disease. 6. Diastolic congestive heart failure. 7. Fever: monitor 8. 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 9. COVID-19 infection. Rapid antigen test was negative but PCR is positive. Patient spiked fever once. PLAN:spoke with RN ,sleepy this morning , catching with sleep. wbc 16 same in last 3 days, monitor Dialysis later today. Plan Plan of Care Problems Medical Problems: (1) Altered mental status Status: Acute (2) ESRD (end stage renal disease) on dialysis Status: Acute (3) Hypertensive urgency Status: Acute Comment Review of Relevant I have reviewed the following items richard (where applicable) has been applied. Labs Laboratory Tests Test 01/24/21 13:04 01/24/21 20:58 01/25/21 04:00 01/25/21 07:31 Glucose (Fingerstick) 90 mg/dL (70-99) 101 mg/dL (70-99) 84 mg/dL (70-99) White Blood Count 16.6 x10^3/uL (4.0-11.0) Red Blood Count 2.68 x10^6/uL (3.50-5.40) Hemoglobin 8.2 g/dL (12.0-15.5) Hematocrit 25.0 % (36.0-47.0) Mean Corpuscular Volume 93 fL (79-100) Mean Corpuscular Hemoglobin 31 pg (25-35) Mean Corpuscular Hemoglobin Concent 33 g/dL (31-37) Red Cell Distribution Width 15.8 % (11.5-14.5) Platelet Count 176 x10^3/uL (140-400) Neutrophils (%) (Auto) 91 % (31-73) Lymphocytes (%) (Auto) 3 % (24-48) Monocytes (%) (Auto) 6 % (0-9) Eosinophils (%) (Auto) 0 % (0-3) Basophils (%) (Auto) 0 % (0-3) Neutrophils # (Auto) 15.2 x10^3/uL (1.8-7.7) Lymphocytes # (Auto) 0.5 x10^3/uL (1.0-4.8) Monocytes # (Auto) 0.9 x10^3/uL (0.0-1.1) Eosinophils # (Auto) 0.0 x10^3/uL (0.0-0.7) Basophils # (Auto) 0.0 x10^3/uL (0.0-0.2) Sodium Level 135 mmol/L (136-145) Potassium Level 4.7 mmol/L (3.5-5.1) Chloride Level 98 mmol/L (98-107) Carbon Dioxide Level 26 mmol/L (21-32) Anion Gap 11 (6-14) Blood Urea Nitrogen 41 mg/dL (7-20) Creatinine 7.6 mg/dL (0.6-1.0) Estimated GFR (Cockcroft-Gault) 6.6 Glucose Level 88 mg/dL (70-99) Calcium Level 9.0 mg/dL (8.5-10.1) Test 01/25/21 11:17 Glucose (Fingerstick) 89 mg/dL (70-99) Medications Current Medications Pantoprazole Sodium (Protonix) 40 mg DAILYAC PO ; Start 01/25/21 at 07:30 Quetiapine Fumarate (SEROquel) 25 mg QHS PO ; Start 01/24/21 at 21:00 Vitals/I & O Vital Sign - Last 24 Hours 01/24/21 01/24/21 01/24/21 01/24/21 14:53 18:22 19:05 20:00 Temp 95.5 98.2 95.5 98.2 Pulse 60 72 64 Resp 16 19 B/P (MAP) 91/40 (57) 152/81 (104) 96/39 (58) Pulse Ox 90 97 O2 Delivery Room Air Room Air Room Air 01/24/21 01/24/21 01/24/21 01/25/21 21:00 21:00 23:15 03:30 Temp 98.0 97.9 98.0 97.9 Pulse 64 64 67 65 Resp 19 17 B/P (MAP) 96/39 96/39 120/48 (72) 122/41 (68) Pulse Ox 97 96 O2 Delivery Room Air Room Air 01/25/21 07:00 Temp 98.1 98.1 Pulse 64 Resp 18 B/P (MAP) 123/45 (71) Pulse Ox 96 O2 Delivery Room Air Intake and Output 01/24/21 01/24/21 01/25/21 15:00 23:00 07:00 Intake Total 75 ml 0 ml 0 ml Balance 75 ml 0 ml 0 ml Justifications for Admission Other Justification KARL LUJAN MD Jan 25, 2021 11:28
--- NOTE | 2021-01-25 13:00 | PDOC ---
Dialysis Progress Note Date of Service: DATE: 01/25/21 TIME: 12:58 Dialysis Note Dialysis Note Patient scheduled for hemodialysis later today Reportedly doing okay overall but remains somewhat confused Full physical exam was unable to be performed due to COVID 19 isolation protocol F 180 NR 3.0 Hrs 3 K 2.5 Ca 140 Na 35 HC03 Qb 350 + Qd 500+ Heparin 0 Units Uf to dry weight are 1 kg below as tolerated May give 25-50 gms of 25% Albumin if needed to maintain Hemodynamic stability Treatment plan reviewed and discussed with field operations farm manager Vitals Vital Signs Vital Signs Date Time Temp Pulse Resp B/P (MAP) Pulse Ox O2 Delivery O2 Flow Rate FiO2 01/25/21 11:00 97.8 62 18 142/52 (82) 94 Room Air 97.8 01/24/21 03:05 2.0 Labs Last Labs Laboratory Tests Test 01/23/21 16:41 01/23/21 21:09 01/24/21 04:00 01/24/21 08:12 Glucose (Fingerstick) 95 mg/dL (70-99) 84 mg/dL (70-99) 73 mg/dL (70-99) White Blood Count 16.0 x10^3/uL (4.0-11.0) Red Blood Count 2.88 x10^6/uL (3.50-5.40) Hemoglobin 8.9 g/dL (12.0-15.5) Hematocrit 27.1 % (36.0-47.0) Mean Corpuscular Volume 94 fL (79-100) Mean Corpuscular Hemoglobin 31 pg (25-35) Mean Corpuscular Hemoglobin Concent 33 g/dL (31-37) Red Cell Distribution Width 16.0 % (11.5-14.5) Platelet Count 165 x10^3/uL (140-400) Neutrophils (%) (Auto) 91 % (31-73) Lymphocytes (%) (Auto) 2 % (24-48) Monocytes (%) (Auto) 7 % (0-9) Eosinophils (%) (Auto) 0 % (0-3) Basophils (%) (Auto) 0 % (0-3) Neutrophils # (Auto) 14.5 x10^3/uL (1.8-7.7) Lymphocytes # (Auto) 0.3 x10^3/uL (1.0-4.8) Monocytes # (Auto) 1.2 x10^3/uL (0.0-1.1) Eosinophils # (Auto) 0.0 x10^3/uL (0.0-0.7) Basophils # (Auto) 0.0 x10^3/uL (0.0-0.2) Sodium Level 139 mmol/L (136-145) Potassium Level 4.2 mmol/L (3.5-5.1) Chloride Level 99 mmol/L (98-107) Carbon Dioxide Level 27 mmol/L (21-32) Anion Gap 13 (6-14) Blood Urea Nitrogen 28 mg/dL (7-20) Creatinine 5.7 mg/dL (0.6-1.0) Estimated GFR (Cockcroft-Gault) 9.2 BUN/Creatinine Ratio 5 (6-20) Glucose Level 83 mg/dL (70-99) Calcium Level 9.4 mg/dL (8.5-10.1) Total Bilirubin 0.6 mg/dL (0.2-1.0) Aspartate Amino Transf (AST/SGOT) 29 U/L (15-37) Alanine Aminotransferase (ALT/SGPT) 19 U/L (14-59) Alkaline Phosphatase 83 U/L (46-116) Total Protein 6.4 g/dL (6.4-8.2) Albumin 3.2 g/dL (3.4-5.0) Albumin/Globulin Ratio 1.0 (1.0-1.7) Test 01/24/21 13:04 01/24/21 20:58 01/25/21 04:00 01/25/21 07:31 Glucose (Fingerstick) 90 mg/dL (70-99) 101 mg/dL (70-99) 84 mg/dL (70-99) White Blood Count 16.6 x10^3/uL (4.0-11.0) Red Blood Count 2.68 x10^6/uL (3.50-5.40) Hemoglobin 8.2 g/dL (12.0-15.5) Hematocrit 25.0 % (36.0-47.0) Mean Corpuscular Volume 93 fL (79-100) Mean Corpuscular Hemoglobin 31 pg (25-35) Mean Corpuscular Hemoglobin Concent 33 g/dL (31-37) Red Cell Distribution Width 15.8 % (11.5-14.5) Platelet Count 176 x10^3/uL (140-400) Neutrophils (%) (Auto) 91 % (31-73) Lymphocytes (%) (Auto) 3 % (24-48) Monocytes (%) (Auto) 6 % (0-9) Eosinophils (%) (Auto) 0 % (0-3) Basophils (%) (Auto) 0 % (0-3) Neutrophils # (Auto) 15.2 x10^3/uL (1.8-7.7) Lymphocytes # (Auto) 0.5 x10^3/uL (1.0-4.8) Monocytes # (Auto) 0.9 x10^3/uL (0.0-1.1) Eosinophils # (Auto) 0.0 x10^3/uL (0.0-0.7) Basophils # (Auto) 0.0 x10^3/uL (0.0-0.2) Sodium Level 135 mmol/L (136-145) Potassium Level 4.7 mmol/L (3.5-5.1) Chloride Level 98 mmol/L (98-107) Carbon Dioxide Level 26 mmol/L (21-32) Anion Gap 11 (6-14) Blood Urea Nitrogen 41 mg/dL (7-20) Creatinine 7.6 mg/dL (0.6-1.0) Estimated GFR (Cockcroft-Gault) 6.6 Glucose Level 88 mg/dL (70-99) Calcium Level 9.0 mg/dL (8.5-10.1) Test 01/25/21 11:17 Glucose (Fingerstick) 89 mg/dL (70-99) Laboratory Tests Test 01/24/21 13:04 01/24/21 20:58 01/25/21 04:00 01/25/21 07:31 Glucose (Fingerstick) 90 mg/dL (70-99) 101 mg/dL (70-99) 84 mg/dL (70-99) White Blood Count 16.6 x10^3/uL (4.0-11.0) Red Blood Count 2.68 x10^6/uL (3.50-5.40) Hemoglobin 8.2 g/dL (12.0-15.5) Hematocrit 25.0 % (36.0-47.0) Mean Corpuscular Volume 93 fL (79-100) Mean Corpuscular Hemoglobin 31 pg (25-35) Mean Corpuscular Hemoglobin Concent 33 g/dL (31-37) Red Cell Distribution Width 15.8 % (11.5-14.5) Platelet Count 176 x10^3/uL (140-400) Neutrophils (%) (Auto) 91 % (31-73) Lymphocytes (%) (Auto) 3 % (24-48) Monocytes (%) (Auto) 6 % (0-9) Eosinophils (%) (Auto) 0 % (0-3) Basophils (%) (Auto) 0 % (0-3) Neutrophils # (Auto) 15.2 x10^3/uL (1.8-7.7) Lymphocytes # (Auto) 0.5 x10^3/uL (1.0-4.8) Monocytes # (Auto) 0.9 x10^3/uL (0.0-1.1) Eosinophils # (Auto) 0.0 x10^3/uL (0.0-0.7) Basophils # (Auto) 0.0 x10^3/uL (0.0-0.2) Sodium Level 135 mmol/L (136-145) Potassium Level 4.7 mmol/L (3.5-5.1) Chloride Level 98 mmol/L (98-107) Carbon Dioxide Level 26 mmol/L (21-32) Anion Gap 11 (6-14) Blood Urea Nitrogen 41 mg/dL (7-20) Creatinine 7.6 mg/dL (0.6-1.0) Estimated GFR (Cockcroft-Gault) 6.6 Glucose Level 88 mg/dL (70-99) Calcium Level 9.0 mg/dL (8.5-10.1) Test 01/25/21 11:17 Glucose (Fingerstick) 89 mg/dL (70-99) Assessment Assessment Problems Medical Problems: (1) Altered mental status Status: Acute (2) ESRD (end stage renal disease) on dialysis Status: Acute (3) Hypertensive urgency Status: Acute Plan Plan of Care Problems Medical Problems: (1) Altered mental status Status: Acute (2) ESRD (end stage renal disease) on dialysis Status: Acute (3) Hypertensive urgency Status: Acute ELISEO BA MD Jan 25, 2021 13:00
[2021-01-25] MEDS ORDERED: ALBUMIN HUMAN 25% 200 ML IV PRN (14:15)
[2021-01-25] MEDS ORDERED: IV NORMAL SALINE 1000ML BAG 1,000 ML IV PRN ×2 (14:15)
[2021-01-25] MEDS ORDERED: DIALYSIS PATIENT. MC PRN ×2 (14:15)
[2021-01-25 17:44] VITALS: BP 167/61
--- NOTE | 2021-01-25 17:54 | NUR ---
Patient slept most of the day. Vitals assessed and stable. Patient drowsy and refused oral medication
[2021-01-25 19:22] VITALS: BP 166/65
[2021-01-25] MEDS: ATORVASTATIN CALCIUM 40 MG TABLET. PO SCH (20:40)
[2021-01-25 22:29] VITALS: BP 149/53
[2021-01-26 02:42] VITALS: BP 161/63
[2021-01-26 06:27] VITALS: BP 190/70
[2021-01-26] MEDS: PANTOPRAZOLE 40 MG TABLET.DR. PO SCH ×2 (07:30→10:05)
[2021-01-26] MEDS: INSULIN LISPRO 300 UNITS/3 ML VIAL. SQ SCH ×3 (08:00→17:00)
[2021-01-26] MEDS: CARVEDILOL 12.5 MG TABLET. PO SCH ×3 (08:00→17:00)
--- NOTE | 2021-01-26 08:06 | PDOC ---
Infectious Disease Note Subjective: Subjective Patient is sleepy arousable but remains confused afebrile no acute issues per d.w rn Vital Signs: Vital Signs Vital Signs Date Time Temp Pulse Resp B/P (MAP) Pulse Ox O2 Delivery O2 Flow Rate FiO2 01/26/21 06:27 98.5 74 16 190/70 (110) 95 Room Air 98.5 Physical Exam: PHYSICAL EXAM GEN: Pt resting quietly on ra HEENT: Normocephalic atraumatic, LUNGS: Decreased breath sound at the bases , no accessory muscle use HEART: S1, S2 regular. ABDOMEN: Soft, nontender, no organomegaly. no pereira EXTREMITIES: No edema or cyanosis. SKIN: Unremarkable. NEUROLOGIC: sleeping,but is moving all 4 ext;remains confused per staff Pscyh calm Medications: Inpatient Meds: Medications reviewed. Labs: Lab Laboratory Tests Test 01/25/21 11:17 01/25/21 17:41 01/25/21 20:50 01/26/21 07:05 Glucose (Fingerstick) 89 mg/dL (70-99) 80 mg/dL (70-99) 78 mg/dL (70-99) 73 mg/dL (70-99) Objective: Assessment: 1. COVID-19 positive. 2. Encephalopathy , not improving, appears multifactorial ,hypertensive and covid 3. End-stage renal disease, on hemodialysis. 4. Coronary artery disease. 5. Hypertension. 6. Coronary artery disease. 7. h/o Cerebrovascular accident in the past. 8.Gastroparesis, nausea and vomiting resolved 9. Leucocytosis afebrile this admission, UA neg on admission,on RA, could be reactive, KUB shows nonspecific changes 10. Back pain appears musculoskeletal, x ray with no acute findings Plan: Plan of Care no ua and uc available as pt did not cooperate for straight cath Chest x-ray , thoracic spine x-ray reviewed no acute abnormality Obtain blood culture if temperature greater than 101 F May need further imaging depending on clinical status Patient remains afebrile at this time Monitor off antibiotics Trend WBC cont supportive care monitor labs and cultures Maintain aspiration precaution Prognosis very poor labs for am ordered consider palliative care d/w HERMANN NICHOLSON MD Jan 26, 2021 08:05
[2021-01-26] MEDS: CLOPIDOGREL BISULFATE 75 MG TABLET PO SCH ×2 (09:00→10:04)
[2021-01-26] MEDS: MINOXIDIL 2.5 MG TABLET PO SCH ×3 (09:00→20:28)
[2021-01-26] MEDS: ASPIRIN ENTERIC COATED 81 MG TABLET.DR. PO SCH ×2 (09:00→10:06)
[2021-01-26] MEDS: ISOSORBIDE MONONITRATE ER 30 MG TAB.ER.24H PO SCH ×2 (09:00→10:06)
[2021-01-26] MEDS: EZETIMIBE 10 MG TABLET. PO SCH ×2 (09:00→10:07)
[2021-01-26] MEDS: QUEtiapine 25 MG TABLET. PO SCH ×4 (09:00→20:28)
[2021-01-26] MEDS: METOCLOPRAMIDE ORAL SOLN 10 MG/10 ML SOLUTION. PO SCH ×4 (10:05→20:29)
--- NOTE | 2021-01-26 10:49 | PDOC ---
PROGRESS NOTES Date of Service: DATE: 01/26/21 TIME: 10:47 Subjective Subjective Pt awake and talking today Objective Objective Vital Signs Date Time Temp Pulse Resp B/P (MAP) Pulse Ox O2 Delivery O2 Flow Rate FiO2 01/26/21 10:06 74 190/70 01/26/21 06:27 98.5 16 95 Room Air 98.5 Intake and Output 01/26/21 07:00 Intake Total 60 ml Balance 60 ml Intake Oral 60 ml # Voids 2 Physical Exam Abdomen: Soft, No tenderness Heart: Regular rate (SR), Normal S1, Normal S2, Other (3/6 systolic murmur to RAYMOND border) Extremities: No edema General: No acute distress HEENT: Atraumatic, Mucous membr. moist/pink Lungs: Other (diminished bases) MUSCULOSKELETAL: Osteoarthritic changes both hands Neuro: Other (sleepy this morning) Skin: No breakdown, No significant lesion Diagnosis Problem List Problems Medical Problems: (1) Altered mental status Status: Acute (2) ESRD (end stage renal disease) on dialysis Status: Acute (3) Hypertensive urgency Status: Acute Assessment Assessment 1. Acute metabolic encephalopathy, improving slowly. 2. Acute hypertensive crisis. improved. 3. End-stage renal disease on hemodialysis. 4. Anemia. 5. Coronary artery disease. 6. Diastolic congestive heart failure. 7. Fever: monitor 8. 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 9. COVID-19 infection. Rapid antigen test was negative but PCR is positive. Patient spiked fever once. PLAN:spoke with RN ,pt awake. BP high ,pt didinot take BP meds last night and this morning wbc 16 same in last 3 days, monitor , repeat labs in am Dialysis done yesterday. Plan Plan of Care Problems Medical Problems: (1) Altered mental status Status: Acute (2) ESRD (end stage renal disease) on dialysis Status: Acute (3) Hypertensive urgency Status: Acute Comment Review of Relevant I have reviewed the following items richard (where applicable) has been applied. Labs Laboratory Tests Test 01/25/21 11:17 01/25/21 17:41 01/25/21 20:50 01/26/21 07:05 Glucose (Fingerstick) 89 mg/dL (70-99) 80 mg/dL (70-99) 78 mg/dL (70-99) 73 mg/dL (70-99) Medications Current Medications Albumin Human 200 ml @ 200 mls/hr 1X PRN PRN IV Hypotension; Start 01/25/21 at 14:15; Stop 01/25/21 at 20:14; Status DC Info (PHARMACY MONITORING -- do not chart) 1 each PRN DAILY PRN MC SEE COMMENTS; Start 01/25/21 at 14:15 Info (PHARMACY MONITORING -- do not chart) 1 each PRN DAILY PRN MC SEE COMMENTS; Start 01/25/21 at 14:15 Sodium Chloride 1,000 ml @ 400 mls/hr Q2H30M PRN IV PATENCY; Start 01/25/21 at 14:15; Stop 01/26/21 at 02:14; Status DC Sodium Chloride 1,000 ml @ 1,000 mls/hr Q1H PRN IV hypotension; Start 01/25/21 at 14:15; Stop 01/25/21 at 20:14; Status DC Vitals/I & O Vital Sign - Last 24 Hours 01/25/21 01/25/21 01/25/21 01/25/21 11:00 17:44 19:22 19:38 Temp 97.8 98.6 98.4 97.8 98.6 98.4 Pulse 62 75 71 Resp 18 16 16 B/P (MAP) 142/52 (82) 167/61 (96) 166/65 (98) Pulse Ox 94 98 93 O2 Delivery Room Air Room Air Room Air Room Air 01/25/21 01/26/21 01/26/21 01/26/21 22:29 02:42 06:27 10:04 Temp 98.7 97.9 98.5 98.7 97.9 98.5 Pulse 76 70 74 74 Resp 18 18 16 B/P (MAP) 149/53 (85) 161/63 (95) 190/70 (110) 190/70 Pulse Ox 96 99 95 O2 Delivery Room Air Room Air Room Air 01/26/21 01/26/21 01/26/21 10:05 10:05 10:06 Pulse 74 74 74 B/P (MAP) 190/70 190/70 190/70 Intake and Output 01/25/21 01/25/21 01/26/21 15:00 23:00 07:00 Intake Total 60 ml 0 ml Balance 60 ml 0 ml Justifications for Admission Other Justification KARL LUJAN MD Jan 26, 2021 10:49
[2021-01-26 11:37] VITALS: BP 190/73
--- NOTE | 2021-01-26 11:39 | NUR ---
Pt very drowsy during assessment. Pt would keep her eyes open, but did not want to answer questions. She said her stomach hurt so I told her I have some reglan she could drink and she agreed to take it. I asked if she would take her other medications and she agreed. Came back into room with medications. Pt put 5 cc of reglan in her mouth, but would not swallow it. She let some of it just drip out of her mouth before finally swallowing. At that point she would not follow commands to swallow. paged awaiting call back. Pt resting comfortable in the bed at this time. Bed alarm set. Vitals stable. Will coontinue to monitor and follow plan of care.
[2021-01-26 15:00] VITALS: BP 193/73
[2021-01-26 19:31] VITALS: BP 194/77
[2021-01-26] MEDS: ATORVASTATIN CALCIUM 40 MG TABLET. PO SCH (20:28)
[2021-01-26 22:32] VITALS: BP 169/71
[2021-01-27 02:44] VITALS: BP 138/55
[2021-01-27 07:07] LABS: BASO % 0 % (0-3); EOS # 0.1 x10^3/uL (0.0-0.7); EOS % 0 % (0-3); HEMATOCRIT 29.5 % (36.0-47.0); HEMOGLOBIN 9.6 g/dL (12.0-15.5); LYMPH # 0.7 x10^3/uL (1.0-4.8); LYMPH % 4 % (24-48); MEAN CORPUSCULAR HEMOGLOBIN 30 pg (25-35); MEAN CORPUSCULAR HGB CONC 33 g/dL (31-37); MEAN CORPUSCULAR VOLUME 94 fL (79-100); MONO # 1.2 x10^3/uL (0.0-1.1); MONO % 7 % (0-9); NEUT # 14.3 x10^3/uL (1.8-7.7); NEUT % 88 % (31-73); PLATELET COUNT 213 x10^3/uL (140-400); RED BLOOD COUNT 3.15 x10^6/uL (3.50-5.40); RED CELL DISTRIBUTION WIDTH 15.5 % (11.5-14.5); WHITE BLOOD COUNT 16.2 x10^3/uL (4.0-11.0)
[2021-01-27 07:23] LABS: ALBUMIN 2.6 g/dL (3.4-5.0); ALBUMIN/GLOBULIN RATIO 0.7 (1.0-1.7); CALCIUM 9.1 mg/dL (8.5-10.1); CREATININE 7.7 mg/dL (0.6-1.0); GFR 6.5; POTASSIUM 4.5 mmol/L (3.5-5.1); TOTAL BILIRUBIN 0.6 mg/dL (0.2-1.0); TOTAL PROTEIN 6.1 g/dL (6.4-8.2)
[2021-01-27] MEDS: PANTOPRAZOLE 40 MG TABLET.DR. PO SCH (07:30)
[2021-01-27] MEDS: METOCLOPRAMIDE ORAL SOLN 10 MG/10 ML SOLUTION. PO SCH ×4 (07:30→20:47)
--- NOTE | 2021-01-27 07:33 | PDOC ---
Infectious Disease Note Subjective: Subjective Patient seen in dialysis unit remains confused Patient 99.6 No diarrhea reported Remains on room air Poor p.o. intake d/w RN Vital Signs: Vital Signs Vital Signs Date Time Temp Pulse Resp B/P (MAP) Pulse Ox O2 Delivery O2 Flow Rate FiO2 01/27/21 02:44 98.2 73 16 138/55 (82) 99 Room Air 98.2 Physical Exam: PHYSICAL EXAM GEN: Pt resting quietly on ra, confused HEENT: Normocephalic atraumatic, LUNGS: Decreased breath sound at the bases , no accessory muscle use HEART: S1, S2 regular. ABDOMEN: Soft, nontender, no organomegaly. no pereira EXTREMITIES: No edema or cyanosis. Fistula site clean SKIN: Unremarkable. NEUROLOGIC: confused, moves all 4 extremities Pscyh calm Medications: Inpatient Meds: Medications reviewed. Labs: Lab Laboratory Tests Test 01/26/21 11:49 01/26/21 16:46 01/26/21 20:42 01/27/21 06:40 Glucose (Fingerstick) 82 mg/dL (70-99) 81 mg/dL (70-99) 73 mg/dL (70-99) White Blood Count 16.2 x10^3/uL (4.0-11.0) Red Blood Count 3.15 x10^6/uL (3.50-5.40) Hemoglobin 9.6 g/dL (12.0-15.5) Hematocrit 29.5 % (36.0-47.0) Mean Corpuscular Volume 94 fL (79-100) Mean Corpuscular Hemoglobin 30 pg (25-35) Mean Corpuscular Hemoglobin Concent 33 g/dL (31-37) Red Cell Distribution Width 15.5 % (11.5-14.5) Platelet Count 213 x10^3/uL (140-400) Neutrophils (%) (Auto) 88 % (31-73) Lymphocytes (%) (Auto) 4 % (24-48) Monocytes (%) (Auto) 7 % (0-9) Eosinophils (%) (Auto) 0 % (0-3) Basophils (%) (Auto) 0 % (0-3) Neutrophils # (Auto) 14.3 x10^3/uL (1.8-7.7) Lymphocytes # (Auto) 0.7 x10^3/uL (1.0-4.8) Monocytes # (Auto) 1.2 x10^3/uL (0.0-1.1) Eosinophils # (Auto) 0.1 x10^3/uL (0.0-0.7) Basophils # (Auto) 0.0 x10^3/uL (0.0-0.2) Sodium Level 140 mmol/L (136-145) Potassium Level 4.5 mmol/L (3.5-5.1) Chloride Level 101 mmol/L (98-107) Carbon Dioxide Level 28 mmol/L (21-32) Anion Gap 11 (6-14) Blood Urea Nitrogen 47 mg/dL (7-20) Creatinine 7.7 mg/dL (0.6-1.0) Estimated GFR (Cockcroft-Gault) 6.5 BUN/Creatinine Ratio 6 (6-20) Glucose Level 79 mg/dL (70-99) Calcium Level 9.1 mg/dL (8.5-10.1) Total Bilirubin 0.6 mg/dL (0.2-1.0) Aspartate Amino Transf (AST/SGOT) 68 U/L (15-37) Alanine Aminotransferase (ALT/SGPT) 111 U/L (14-59) Alkaline Phosphatase 96 U/L (46-116) Total Protein 6.1 g/dL (6.4-8.2) Albumin 2.6 g/dL (3.4-5.0) Albumin/Globulin Ratio 0.7 (1.0-1.7) Objective: Assessment: 1. COVID-19 positive. 2. Encephalopathy , not improving, appears multifactorial ,hypertensive and covid 3. End-stage renal disease, on hemodialysis through left upper extremity fistula. 4. Coronary artery disease. 5. Hypertension. 6. Coronary artery disease. 7. h/o Cerebrovascular accident in the past. 8.Gastroparesis, nausea and vomiting resolved 9. Leucocytosis afebrile this admission, UA neg on admission,on RA, could be reactive, KUB shows nonspecific changes 10. Back pain appears musculoskeletal, x ray with no acute findings Plan: Plan of Care no ua and uc available as pt did not cooperate for straight cath Chest x-ray , thoracic spine x-ray reviewed no acute abnormality Obtain blood culture if temperature greater than 101 F May need further imaging depending on clinical status We'll start patient on empiric Zosyn and Vanco Obtain CT chest abdomen and pelvis Trend WBC Cont supportive care monitor labs and cultures Maintain aspiration precaution Prognosis very poor consider palliative care Discussed with Dr. Ng d/w HERMANN NICHOLSON MD Jan 27, 2021 07:33
[2021-01-27 07:50] VITALS: BP 147/59
[2021-01-27] MEDS: CARVEDILOL 12.5 MG TABLET. PO SCH ×2 (08:00→17:00)
[2021-01-27] MEDS: INSULIN LISPRO 300 UNITS/3 ML VIAL. SQ SCH ×3 (08:00→17:00)
[2021-01-27] MEDS: QUEtiapine 25 MG TABLET. PO SCH ×3 (09:00→20:47)
[2021-01-27] MEDS: CLOPIDOGREL BISULFATE 75 MG TABLET PO SCH (09:00)
[2021-01-27] MEDS: MINOXIDIL 2.5 MG TABLET PO SCH ×2 (09:00→20:47)
[2021-01-27] MEDS: EZETIMIBE 10 MG TABLET. PO SCH (09:00)
[2021-01-27] MEDS: ASPIRIN ENTERIC COATED 81 MG TABLET.DR. PO SCH (09:00)
[2021-01-27] MEDS: ISOSORBIDE MONONITRATE ER 30 MG TAB.ER.24H PO SCH (09:00)
--- NOTE | 2021-01-27 09:53 | PDOC ---
IM PROGRESS NOTES- Subjective Subjective Patient is not eating. She is not cooperative. c/o abdominal pain. She refuses to take medications. She has no other complaints. She denies any pain or dyspnea. Objective Vitals/I&O Vital Signs Date Time Temp Pulse Resp B/P (MAP) Pulse Ox O2 Delivery O2 Flow Rate FiO2 01/27/21 08:00 Room Air 01/27/21 07:50 99.6 74 16 147/59 (88) 98 99.6 I & O 01/26/21 01/26/21 01/27/21 15:00 23:00 07:00 Intake Total 0 ml 0 ml Balance 0 ml 0 ml Physical Exam Physical Exam General Appearance - alert and in no distress Chest - decreased breath sounds at bases Heart - S1 and S2 normal Abdomen - soft, non tender Neurological -patient has a lot of cognitive deficits. She is a poor historian. Musculoskeletal - generalized weakness Extremities - no edema Labs Laboratory Tests Test 01/26/21 11:49 01/26/21 16:46 01/26/21 20:42 01/27/21 06:40 Glucose (Fingerstick) 82 mg/dL (70-99) 81 mg/dL (70-99) 73 mg/dL (70-99) White Blood Count 16.2 x10^3/uL (4.0-11.0) H Red Blood Count 3.15 x10^6/uL (3.50-5.40) L Hemoglobin 9.6 g/dL (12.0-15.5) L Hematocrit 29.5 % (36.0-47.0) L Mean Corpuscular Volume 94 fL (79-100) Mean Corpuscular Hemoglobin 30 pg (25-35) Mean Corpuscular Hemoglobin Concent 33 g/dL (31-37) Red Cell Distribution Width 15.5 % (11.5-14.5) H Platelet Count 213 x10^3/uL (140-400) Neutrophils (%) (Auto) 88 % (31-73) H Lymphocytes (%) (Auto) 4 % (24-48) L Monocytes (%) (Auto) 7 % (0-9) Eosinophils (%) (Auto) 0 % (0-3) Basophils (%) (Auto) 0 % (0-3) Neutrophils # (Auto) 14.3 x10^3/uL (1.8-7.7) H Lymphocytes # (Auto) 0.7 x10^3/uL (1.0-4.8) L Monocytes # (Auto) 1.2 x10^3/uL (0.0-1.1) H Eosinophils # (Auto) 0.1 x10^3/uL (0.0-0.7) Basophils # (Auto) 0.0 x10^3/uL (0.0-0.2) Sodium Level 140 mmol/L (136-145) Potassium Level 4.5 mmol/L (3.5-5.1) Chloride Level 101 mmol/L (98-107) Carbon Dioxide Level 28 mmol/L (21-32) Anion Gap 11 (6-14) Blood Urea Nitrogen 47 mg/dL (7-20) H Creatinine 7.7 mg/dL (0.6-1.0) H Estimated GFR (Cockcroft-Gault) 6.5 BUN/Creatinine Ratio 6 (6-20) Glucose Level 79 mg/dL (70-99) Calcium Level 9.1 mg/dL (8.5-10.1) Total Bilirubin 0.6 mg/dL (0.2-1.0) Aspartate Amino Transferase (AST) 68 U/L (15-37) H Alanine Aminotransferase (ALT) 111 U/L (14-59) H Alkaline Phosphatase 96 U/L (46-116) Total Protein 6.1 g/dL (6.4-8.2) L Albumin 2.6 g/dL (3.4-5.0) L Albumin/Globulin Ratio 0.7 (1.0-1.7) L Test 01/27/21 07:56 Glucose (Fingerstick) 81 mg/dL (70-99) Laboratory Tests 01/27/21 06:40 Laboratory Tests 01/27/21 06:40 Assessment Assessment 1. Acute metabolic encephalopathy. Continue to give her lorazepam as needed. Monitor closely in the Intensive Care Unit. Consult Dr. Martinez for neurology evaluation and management. Likely due to hypertensive crisis.Mental status is improving. 2. Acute hypertensive crisis. Patient was initially treated with Cardene IV drip. Consult Dr. Leahy for cardiology evaluation and management. 3. Elevated troponin. This may be due to demand ischemia and also end-stage renal disease may be contributing. 4. End-stage renal disease, on hemodialysis. 5. Coronary artery disease. 6. Diastolic congestive heart failure. 7. Physical deconditioning. 8. Asthma. 9. Gastroesophageal reflux disease. 10. Hyperlipidemia. 11. Severe pulmonary hypertension. 12. 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 13. History of depression. 14. 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 Monitor blood sugar. 15. History of secondary hyperparathyroidism. 16. Marijuana abuse Plan: End-stage renal disease on hemodialysis - consult Dr. Hernandez for management of end-stage renal disease and hemodialysis. Condition treatment discussed with the patient's brother at bedside in the Emergency Room. Prognosis of this patient is extremely poor due to her multiple medical problems. As patient remained stable patient was admitted to CVC unit. Acute hypertensive crisis- patient is off Cardene drip. Labs reviewed. As needed IV hydralazine. Blood pressure is better controlled with [id number]. COVID-19 infection. SARS-CoV-2 PCR test is positive. This may be also contributing to patient's poor appetite, body aches and confusion.I will also consult Dr. Ray Nino for Infectious Disease evaluation and management because of her fever of 103 degrees Fahrenheit. Her chest x-ray, urinalysis as well as SARS-CoV-2 antigen test is negative. Consult Dr. Nino for infectious disease evaluation and management. Patient is running low-grade fever. WBC count is 16.2. Discussed with Dr. Nino. Dr. Nino will start her on antibiotics empirically. Order scans. Acute metabolic encephalopathy-most likely due to COVID-19 infection and may be multifactorial. Discussed with Dr. Martinez last week. Severe malnutrition-patient is not eating but also does not allow any IV fluids or IV access. I have encouraged her to drink Nepro. Prognosis of this patient is extremely poor due to her multiple medical problems. Message left for daughter Kerri -about patient's condition,treatment,options , Plan Plan For more details regarding further plans, please refer to the orders. Justifications for Admission Other Justification GAURAV DANG MD Jan 27, 2021 09:53
--- NOTE | 2021-01-27 10:19 | PDOC ---
PROGRESS NOTES Date of Service DATE: 01/27/21 TIME: 10:17 Assessment Problems Medical Problems: (1) Altered mental status Status: Acute (2) ESRD (end stage renal disease) on dialysis Status: Acute (3) Hypertensive urgency Status: Acute Encephalopathy, hypertensive, also role of COVID 19 encephalopathy. She takes out her IVs and refuses to eat COVID 19 History of strokes including chronic right basal ganglia and bilateral thalamic lacunar infarcts on the CT. CT also shows white matter disease consistent with hypertension and diabetes, I doubt that she also has demyelinating disease. Elevated troponin, renal failure, anemia, coronary artery disease, diastolic congestive heart failure, fever. 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 Ng has a message in with the patient's daughter Subjective Complains of poor appetite, nonlocalizing abdominal pain Objective Vital Signs Date Time Temp Pulse Resp B/P (MAP) Pulse Ox O2 Delivery O2 Flow Rate FiO2 01/27/21 08:00 Room Air 01/27/21 07:50 99.6 74 16 147/59 (88) 98 99.6 Intake and Output 01/27/21 07:00 Intake Total 0 ml Balance 0 ml Intake Oral 0 ml # Voids 2 PHYSICAL EXAM Eyes closed, opens easily to voice, knows location but not date PERRL. EOMI. CN: no focal findings. Muscle tone: normal. Muscle strength: 4/5, weaker on the left DTR: 0-1+ Plantar reflex: flexor Gait: not examined in bed. Sensory exam: Stocking loss. No cerebellar signs elicited. Review of Relevant I have reviewed the following items richard (where applicable) has been applied. Labs Laboratory Tests Test 01/25/21 11:17 01/25/21 17:41 01/25/21 20:50 01/26/21 07:05 Glucose (Fingerstick) 89 mg/dL (70-99) 80 mg/dL (70-99) 78 mg/dL (70-99) 73 mg/dL (70-99) Test 01/26/21 11:49 01/26/21 16:46 01/26/21 20:42 01/27/21 06:40 Glucose (Fingerstick) 82 mg/dL (70-99) 81 mg/dL (70-99) 73 mg/dL (70-99) White Blood Count 16.2 x10^3/uL (4.0-11.0) Red Blood Count 3.15 x10^6/uL (3.50-5.40) Hemoglobin 9.6 g/dL (12.0-15.5) Hematocrit 29.5 % (36.0-47.0) Mean Corpuscular Volume 94 fL (79-100) Mean Corpuscular Hemoglobin 30 pg (25-35) Mean Corpuscular Hemoglobin Concent 33 g/dL (31-37) Red Cell Distribution Width 15.5 % (11.5-14.5) Platelet Count 213 x10^3/uL (140-400) Neutrophils (%) (Auto) 88 % (31-73) Lymphocytes (%) (Auto) 4 % (24-48) Monocytes (%) (Auto) 7 % (0-9) Eosinophils (%) (Auto) 0 % (0-3) Basophils (%) (Auto) 0 % (0-3) Neutrophils # (Auto) 14.3 x10^3/uL (1.8-7.7) Lymphocytes # (Auto) 0.7 x10^3/uL (1.0-4.8) Monocytes # (Auto) 1.2 x10^3/uL (0.0-1.1) Eosinophils # (Auto) 0.1 x10^3/uL (0.0-0.7) Basophils # (Auto) 0.0 x10^3/uL (0.0-0.2) Sodium Level 140 mmol/L (136-145) Potassium Level 4.5 mmol/L (3.5-5.1) Chloride Level 101 mmol/L (98-107) Carbon Dioxide Level 28 mmol/L (21-32) Anion Gap 11 (6-14) Blood Urea Nitrogen 47 mg/dL (7-20) Creatinine 7.7 mg/dL (0.6-1.0) Estimated GFR (Cockcroft-Gault) 6.5 BUN/Creatinine Ratio 6 (6-20) Glucose Level 79 mg/dL (70-99) Calcium Level 9.1 mg/dL (8.5-10.1) Total Bilirubin 0.6 mg/dL (0.2-1.0) Aspartate Amino Transf (AST/SGOT) 68 U/L (15-37) Alanine Aminotransferase (ALT/SGPT) 111 U/L (14-59) Alkaline Phosphatase 96 U/L (46-116) Total Protein 6.1 g/dL (6.4-8.2) Albumin 2.6 g/dL (3.4-5.0) Albumin/Globulin Ratio 0.7 (1.0-1.7) Test 01/27/21 07:56 Glucose (Fingerstick) 81 mg/dL (70-99) Laboratory Tests Test 01/26/21 11:49 01/26/21 16:46 01/26/21 20:42 01/27/21 06:40 Glucose (Fingerstick) 82 mg/dL (70-99) 81 mg/dL (70-99) 73 mg/dL (70-99) White Blood Count 16.2 x10^3/uL (4.0-11.0) Red Blood Count 3.15 x10^6/uL (3.50-5.40) Hemoglobin 9.6 g/dL (12.0-15.5) Hematocrit 29.5 % (36.0-47.0) Mean Corpuscular Volume 94 fL (79-100) Mean Corpuscular Hemoglobin 30 pg (25-35) Mean Corpuscular Hemoglobin Concent 33 g/dL (31-37) Red Cell Distribution Width 15.5 % (11.5-14.5) Platelet Count 213 x10^3/uL (140-400) Neutrophils (%) (Auto) 88 % (31-73) Lymphocytes (%) (Auto) 4 % (24-48) Monocytes (%) (Auto) 7 % (0-9) Eosinophils (%) (Auto) 0 % (0-3) Basophils (%) (Auto) 0 % (0-3) Neutrophils # (Auto) 14.3 x10^3/uL (1.8-7.7) Lymphocytes # (Auto) 0.7 x10^3/uL (1.0-4.8) Monocytes # (Auto) 1.2 x10^3/uL (0.0-1.1) Eosinophils # (Auto) 0.1 x10^3/uL (0.0-0.7) Basophils # (Auto) 0.0 x10^3/uL (0.0-0.2) Sodium Level 140 mmol/L (136-145) Potassium Level 4.5 mmol/L (3.5-5.1) Chloride Level 101 mmol/L (98-107) Carbon Dioxide Level 28 mmol/L (21-32) Anion Gap 11 (6-14) Blood Urea Nitrogen 47 mg/dL (7-20) Creatinine 7.7 mg/dL (0.6-1.0) Estimated GFR (Cockcroft-Gault) 6.5 BUN/Creatinine Ratio 6 (6-20) Glucose Level 79 mg/dL (70-99) Calcium Level 9.1 mg/dL (8.5-10.1) Total Bilirubin 0.6 mg/dL (0.2-1.0) Aspartate Amino Transf (AST/SGOT) 68 U/L (15-37) Alanine Aminotransferase (ALT/SGPT) 111 U/L (14-59) Alkaline Phosphatase 96 U/L (46-116) Total Protein 6.1 g/dL (6.4-8.2) Albumin 2.6 g/dL (3.4-5.0) Albumin/Globulin Ratio 0.7 (1.0-1.7) Test 01/27/21 07:56 Glucose (Fingerstick) 81 mg/dL (70-99) Medications Current Medications Fentanyl Citrate (Fentanyl 2ml Vial) 75 mcg 1X ONCE IVP Last administered on 01/16/21at 08:31; Start 01/16/21 at 08:00; Stop 01/16/21 at 08:05; Status DC Ziprasidone (Geodon Im) 20 mg 1X ONCE IM Last administered on 01/16/21at 08:08; Start 01/16/21 at 08:00; Stop 01/16/21 at 08:05; Status DC Lorazepam (Ativan Inj) 2 mg 1X ONCE IVP Last administered on 01/16/21at 08:45; Start 01/16/21 at 08:45; Stop 01/16/21 at 08:46; Status DC Hydralazine HCl (Apresoline Inj) 20 mg 1X ONCE IVP Last administered on 01/16/21at 09:04; Start 01/16/21 at 09:00; Stop 01/16/21 at 09:02; Status DC Lorazepam (Ativan Inj) 2 mg 1X ONCE IVP Last administered on 01/16/21at 09:40; Start 01/16/21 at 09:30; Stop 01/16/21 at 09:31; Status DC Labetalol HCl (Normodyne Iv Push) 10 mg 1X ONCE IVP Last administered on 01/16/21at 12:03; Start 01/16/21 at 11:00; Stop 01/16/21 at 11:01; Status DC Aspirin (Aspirin Rectal Supp) 300 mg 1X ONCE NV Last administered on 01/16/21at 12:05; Start 01/16/21 at 11:15; Stop 01/16/21 at 11:16; Status DC Ondansetron HCl (Zofran) 4 mg PRN Q8HRS PRN IVP NAUSEA/VOMITING; Start 01/16/21 at 11:30; Stop 01/17/21 at 11:29; Status DC Insulin Human Lispro (HumaLOG) 0-5 UNITS TIDWMEALS SQ ; Start 01/16/21 at 12:00 Dextrose (Dextrose 50%-Water Syringe) 12.5 gm PRN Q15MIN PRN IV SEE COMMENTS; Start 01/16/21 at 11:30 Lorazepam (Ativan Inj) 1 mg PRN Q4HRS PRN IVP ANXIETY / AGITATION Last administered on 01/18/21at 04:18; Start 01/16/21 at 12:45 Hydralazine HCl (Apresoline Inj) 20 mg PRN Q4HRS PRN IVP ELEVATED BP, SEE COMMENTS Last administered on 01/16/21at 13:30; Start 01/16/21 at 13:00 Nicardipine HCl 50 mg/Sodium Chloride 250 ml @ 25 mls/hr CONT PRN IV SEE I/O RECORD Last administered on 01/17/21 04:25; Start 01/16/21 at 14:00; Stop 01/17/21 at 16:08; Status DC Aspirin (Ecotrin) 81 mg DAILY PO Last administered on 01/24/21 10:56; Start 01/17/21 at 13:00 Atorvastatin Calcium (Lipitor) 80 mg HS PO Last administered on 01/26/21 20:28; Start 01/17/21 at 21:00 Carvedilol (Coreg) 12.5 mg BIDWMEALS PO Last administered on 01/24/21 10:57; Start 01/17/21 at 17:00 Clonidine HCl (Catapres) 0.2 mg BID PO Last administered on 01/23/21 09:26; Start 01/17/21 at 21:00; Stop 01/23/21 at 10:30; Status DC Clopidogrel Bisulfate (Plavix) 75 mg DAILY PO Last administered on 01/24/21 10:55; Start 01/17/21 at 13:00 EZETIMIBE (Zetia) 10 mg DAILY PO Last administered on 01/24/21 10:55; Start 01/17/21 at 13:00 Hydralazine HCl (Apresoline) 50 mg TID PO Last administered on 01/26/21 20:28; Start 01/17/21 at 14:00 Isosorbide Mononitrate (Imdur) 120 mg DAILY PO Last administered on 01/24/21 10:55; Start 01/17/21 at 13:00 Minoxidil (Loniten) 2.5 mg BID PO Last administered on 01/26/21 20:28; Start 01/17/21 at 21:00 Acetaminophen (Tylenol) 650 mg PRN Q6HRS PRN PO MILD PAIN / TEMP > 100.3'F Last administered on 01/18/21 17:34; Start 01/17/21 at 20:45 Acetaminophen/ Hydrocodone Bitart (Lortab 7.5/325) 1 tab PRN Q6HRS PRN PO MODERATE PAIN Last administered on 01/24/21 10:57; Start 01/17/21 at 20:45 Sodium Chloride 1,000 ml @ 1,000 mls/hr Q1H PRN IV hypotension; Start 01/18/21 at 11:30; Stop 01/18/21 at 17:29; Status DC Albumin Human 200 ml @ 200 mls/hr 1X PRN PRN IV Hypotension; Start 01/18/21 at 11:30; Stop 01/18/21 at 17:29; Status DC Sodium Chloride 1,000 ml @ 400 mls/hr Q2H30M PRN IV PATENCY; Start 01/18/21 at 11:30; Stop 01/18/21 at 23:29; Status DC Info (PHARMACY MONITORING -- do not chart) 1 each PRN DAILY PRN MC SEE C OMMENTS; Start 01/18/21 at 11:30; Status UNV Info (PHARMACY MONITORING -- do not chart) 1 each PRN DAILY PRN MC SEE COMMENTS; Start 01/18/21 at 11:30; Status Cancel Fentanyl Citrate (Fentanyl 2ml Vial) 25 mcg PRN Q3HRS PRN IV PAIN Last administered on 01/21/21at 16:15; Start 01/18/21 at 14:00 Ondansetron HCl (Zofran Odt) 4 mg PRN Q6HRS PRN PO NAUSEA/VOMITING Last administered on 01/21/21at 06:04; Start 01/19/21 at 09:30 Oxycodone HCl (Roxicodone) 10 mg PRN Q4HRS PRN PO SEVERE PAIN Last administered on 01/24/21at 02:35; Start 01/19/21 at 17:30 Simethicone (Gas-X) 80 mg PRN TID PRN PO GAS / BLOATING Last administered on 01/21/21at 06:04; Start 01/19/21 at 21:15 Lorazepam (Ativan) 0.5 mg PRN Q6HRS PRN PO ANXIETY / AGITATION Last administered on 01/23/21at 22:06; Start 01/19/21 at 21:15 Pantoprazole Sodium (Protonix) 40 mg DAILYAC PO Last administered on 01/22/21at 09:37; Start 01/21/21 at 10:00; Stop 01/22/21 at 11:38; Status DC Sodium Chloride 1,000 ml @ 1,000 mls/hr Q1H PRN IV hypotension; Start 01/21/21 at 12:45; Stop 01/21/21 at 18:44; Status DC Albumin Human 200 ml @ 200 mls/hr 1X PRN PRN IV Hypotension; Start 01/21/21 at 12:45; Stop 01/21/21 at 18:44; Status DC Acetaminophen (Tylenol) 500 mg 1X PRN PRN PO MILD PAIN / TEMP > 100.3'F; Start 01/21/21 at 12:45; Stop 01/22/21 at 12:44; Status DC Diphenhydramine HCl (Benadryl) 25 mg 1X PRN PRN IV ITCHING; Start 01/21/21 at 12:45; Stop 01/22/21 at 12:44; Status DC Diphenhydramine HCl (Benadryl) 25 mg 1X PRN PRN IV ITCHING; Start 01/21/21 at 12:45; Stop 01/22/21 at 12:44; Status DC Sodium Chloride 1,000 ml @ 400 mls/hr Q2H30M PRN IV PATENCY; Start 01/21/21 at 12:45; Stop 01/22/21 at 00:44; Status DC Lidocaine HCl (Xylocaine-Mpf 1% 2ml Vial) 2 ml 1X PRN PRN INJ FOR DIALYSIS; Start 01/21/21 at 12:45; Stop 01/22/21 at 12:44; Status DC Info (PHARMACY MONITORING -- do not chart) 1 each PRN DAILY PRN MC SEE COMMENTS; Start 01/21/21 at 12:45; Status UNV Info (PHARMACY MONITORING -- do not chart) 1 each PRN DAILY PRN MC SEE COMMENTS; Start 01/21/21 at 12:45; Status Cancel Bisacodyl (Dulcolax Supp) 10 mg PRN DAILY PRN NV CONSTIPATION; Start 01/21/21 at 19:30 Senna/Docusate Sodium (Senna Plus) 2 tab PRN BID PRN PO CONSTIPATION; Start 01/21/21 at 19:30 Calcium Carbonate/ Glycine (Tums) 500 mg PRN AFTMEALHC PRN PO INDIGESTION Last administered on 01/24/21at 10:56; Start 01/22/21 at 03:15 Metoclopramide HCl (Reglan Vial) 5 mg PRN Q6HRS PRN IVP NAUSEA/VOMITING; Start 01/22/21 at 11:45; Stop 01/24/21 at 09:22; Status DC Pantoprazole Sodium (PROTONIX VIAL for IV PUSH) 40 mg DAILYAC IVP ; Start 01/23/21 at 07:30; Stop 01/24/21 at 10:51; Status DC Sodium Chloride 1,000 ml @ 1,000 mls/hr Q1H PRN IV hypotension; Start 01/23/21 at 09:30; Stop 01/23/21 at 15:29; Status DC Albumin Human 200 ml @ 200 mls/hr 1X PRN PRN IV Hypotension; Start 01/23/21 at 09:30; Stop 01/23/21 at 15:29; Status DC Sodium Chloride 1,000 ml @ 400 mls/hr Q2H30M PRN IV PATENCY; Start 01/23/21 at 09:30; Stop 01/23/21 at 21:29; Status DC Lidocaine HCl (Xylocaine-Mpf 1% 2ml Vial) 2 ml 1X PRN PRN INJ FOR DIALYSIS; Start 01/23/21 at 09:30; Stop 01/24/21 at 09:29; Status DC Info (PHARMACY MONITORING -- do not chart) 1 each PRN DAILY PRN MC SEE COMMENTS; Start 01/23/21 at 09:30; Status UNV Info (PHARMACY MONITORING -- do not chart) 1 each PRN DAILY PRN MC SEE COMMENTS; Start 01/23/21 at 09:30 Clonidine HCl (Catapres Tts-3) 1 patch WEEKLY TD Last administered on 01/23/21at 18:14; Start 01/23/21 at 09:00 Quetiapine Fumarate (SEROquel) 12.5 mg [id number] PO Last administered on 01/23/21at 18:14; Start 01/23/21 at 11:00; Stop 01/24/21 at 09:17; Status DC Quetiapine Fumarate (SEROquel) 25 mg QHS PO Last administered on 01/26/21at 20:28; Start 01/24/21 at 21:00 Quetiapine Fumarate (SEROquel) 12.5 mg [id number] PO Last administered on 01/24/21at 10:57; Start 01/24/21 at 09:30 Metoclopramide HCl (Reglan Oral Solution) 5 mg TIDACHC PO Last administered on 01/26/21at 20:29; Start 01/24/21 at 09:30 Pantoprazole Sodium (Protonix) 40 mg DAILYAC PO ; Start 01/25/21 at 07:30 Sodium Chloride 1,000 ml @ 1,000 mls/hr Q1H PRN IV hypotension; Start 01/25/21 at 14:15; Stop 01/25/21 at 20:14; Status DC Albumin Human 200 ml @ 200 mls/hr 1X PRN PRN IV Hypotension; Start 01/25/21 at 14:15; Stop 01/25/21 at 20:14; Status DC Sodium Chloride 1,000 ml @ 400 mls/hr Q2H30M PRN IV PATENCY; Start 01/25/21 at 14:15; Stop 01/26/21 at 02:14; Status DC Info (PHARMACY MONITORING -- do not chart) 1 each PRN DAILY PRN MC SEE COMMENTS; Start 01/25/21 at 14:15 Info (PHARMACY MONITORING -- do not chart) 1 each PRN DAILY PRN MC SEE FABIÁN TS; Start 01/25/21 at 14:15 Active Scripts Active Lactulose 20 Gm/30 Ml Solution 20 Gm PO BID 5 Days Culturelle (Lactobacillus Rhamnosus Gg) 1 Each Cap.sprink 1 Cap PO BID Metoclopramide Hcl 5 Mg/1 Ml Vial 5 Mg IV PRN Q6HRS PRN Metoclopramide Hcl 5 Mg/1 Ml Vial 5 Mg IV [id number] Ondansetron Hcl 4 Mg/2 Ml Vial (Ondansetron Hcl/Pf) 4 Mg/2 Ml Vial 4 Mg IV PRN Q6HRS PRN Buspirone Hcl 5 Mg Tablet 5 Mg PO TID Quetiapine Fumarate 25 Mg Tablet 12.5 Mg PO PRN Q6HRS PRN Quetiapine Fumarate 25 Mg Tablet 25 Mg PO QHS Sertraline Hcl 50 Mg Tablet 50 Mg PO DAILY Hydrocodone-Apap 7.5-325 (Hydrocodone Bit/Acetaminophen) 1 Each Tablet 1 Tab PO PRN Q8HRS PRN Fentanyl 0.05 Mg/Ml Vial (Fentanyl Citrate/Pf) 50 Mcg/1 Ml Vial 50 Mcg IV PRN Q4HRS PRN [Darbepoetin Ty In Polysorbat] 60 MCG/0.3 ML Disp.syrin 60 Mcg SQ WEEKLYHS Zyvox (Linezolid) 600 Mg Tablet 600 Mg PO BID Vitamin D3 (Cholecalciferol (Vitamin D3)) 1,000 Unit Tablet 1 Tab PO DAILY [Calcium Acetate] 667 MG Capsule 1,334 Mg PO TIDWMEALS Mapap (Acetaminophen) 500 Mg Tablet 1,000 Mg PO TID Carvedilol (Carvedilol) 12.5 Mg Tablet 12.5 Mg PO BIDWMEALS Minoxidil 2.5 Mg Tablet 2.5 Mg PO BID Isosorbide Mononitrate Er (Isosorbide Mononitrate) 30 Mg Tab.er.24h 120 Mg PO DAILY Montelukast Sodium Tablet (Montelukast Sodium) 10 Mg Tablet 10 Mg PO QHS Polyethylene Glycol 3350 2,500 Gm Powder 17 Gm PO DAILY Novolog Flexpen (Insulin Aspart) 100 Unit/1 Ml Insuln.pen 0 Units SQ TIDAC Take sub q tid ac: BS 151-200=2 unit, 201-250=3 unit, MT547-680, BS 301-350=6 unit, BS 351-400 =8 unit. BS>401 call MD Renetta Busch 10,000 Units Capsule (Lipase/Protease/Amylase) 1 Each Capsule. 2 Cap PO TIDWMEALS TAke 2 cap tid with meals Nephro-Donny Tablet (Folic Acid/Vitamin B Comp W-C) 0.8 Mg Tablet 1 Tab PO DAILY Benadryl (Diphenhydramine Hcl) 25 Mg Capsule 25 Mg PO PRN Q6HRS PRN Reported Lactulose 10 Gm Packet 10 Gm PO Q6HRS Lidocaine 15 Gm Cream..g. 1 Karma TP TID PRN 30 Days Isosorbide Mononitrate Er (Isosorbide Mononitrate) 60 Mg Tab.er.24h 1 Tab PO DAILY Vitamin A 2,400 Mcg Capsule 1,250 Mcg PO WEEKLY Hydrocodone-Apap 10-325 (Hydrocodone Bit/Acetaminophen) 1 Tab Tablet 1 Tab PO PRN Q6HRS PRN Ultram (Tramadol Hcl) 50 Mg Tablet 1 Tab PO BID MDD 2 Tablet(s) 30 Days Hydralazine Hcl 50 Mg Tablet 1 Tab PO TID Acetaminophen 325 Mg Tablet 2 Tab PO Q6HRS PRN 30 Days Glucose Gel (Dextrose) 38 Gm Gel..gram. 15 Gm PO PRN Sertraline Hcl 100 Mg Tablet 100 Mg PO DAILY Glucagon Emergency Kit (Glucagon,Human Recombinant) 1 Mg Kit 1 Mg IM PRN Senna Plus Tablet (Sennosides/Docusate Sodium) 1 Each Tablet 2 Tab PO QHS 14 Days Zetia (Ezetimibe) 10 Mg Tablet 1 Tab PO DAILY 30 Days Renvela (Sevelamer Carbonate) 800 Mg Tablet 800 Mg PO TIDWMEALS Escitalopram Oxalate 10 Mg Tablet 1 Tab PO DAILY Lyrica (Pregabalin) 50 Mg Capsule 25 Mg PO QHS [creon] 1 Cap PO TIDAC Oxycodone HCl 5 Mg Tablet 5 Mg PO Q8HRS PRN [zenpep] 10 Mg PO TIDAC Clonidine Hcl 0.2 Mg Tablet 0.2 Mg PO BID Zofran (Ondansetron Hcl) 4 Mg Tablet 1 Tab PO Q4HRS PRN Sensipar (Cinacalcet Hcl) 30 Mg Tablet 1 Tab PO DAILY 30 Days Mirtazapine 15 Mg Tablet 1 Tab PO QHS Atorvastatin Calcium 40 Mg Tablet 80 Mg PO HS Minoxidil 2.5 Mg Tablet 2.5 Mg PO DAILY Amlodipine Besylate 10 Mg Tablet 10 Mg PO DAILY Lidocaine PATCH (Lidocaine) 1 Each Adh..patch 1 Each TP DAILY REMOVE AFTER 12 HOURS Proair Hfa Inhaler (Albuterol Sulfate) 8.5 Gm Hfa.aer.ad 2 Puff INH PRN Q6HRS PRN Nitrostat (Nitroglycerin) 0.4 Mg Tab.subl 0.4 Mg SL PRN Q5MIN PRN Plavix (Clopidogrel Bisulfate) 75 Mg Tablet 1 Tab PO DAILY Zoloft (Sertraline Hcl) 100 Mg Tablet 1 Tab PO DAILY Pantoprazole Sodium (Pantoprazole Sodium) 40 Mg Tablet.dr 1 Tab PO DAILY Losartan Potassium 100 Mg Tablet 100 Mg PO DAILY Aspir 81 (Aspirin) 81 Mg Tablet.dr 81 Mg PO DAILY Vitals/I & O Vital Sign - Last 24 Hours 01/26/21 01/26/21 01/26/21 01/26/21 11:37 14:00 15:00 17:00 Temp 99.5 99.3 99.5 99.3 Pulse 70 70 68 68 Resp 18 18 B/P (MAP) 190/73 (112) 190/73 193/73 (113) 193/73 Pulse Ox 96 99 O2 Delivery Room Air Room Air 01/26/21 01/26/21 01/26/21 01/26/21 19:31 19:47 20:28 20:28 Temp 97.8 97.8 Pulse 79 79 79 Resp 20 B/P (MAP) 194/77 (116) 194/77 194/77 Pulse Ox 98 O2 Delivery Room Air Room Air 01/26/21 01/27/21 01/27/21 01/27/21 22:32 02:44 07:50 08:00 Temp 97.9 98.2 99.6 97.9 98.2 99.6 Pulse 71 73 74 Resp 16 16 16 B/P (MAP) 169/71 (103) 138/55 (82) 147/59 (88) Pulse Ox 94 99 98 O2 Delivery Room Air Room Air Room Air Room Air Intake and Output 01/26/21 01/26/21 01/27/21 15:00 23:00 07:00 Intake Total 0 ml 0 ml Balance 0 ml 0 ml Justicifation of Admission Dx: Justifications for Admission: Justification of Admission Dx: N/A MARINA REYNOSO MD Jan 27, 2021 10:19
[2021-01-27] MEDS ORDERED: DIALYSIS PATIENT. MC PRN (10:30)
[2021-01-27] MEDS ORDERED: VANCOMYCIN 1.5 GM in IV NORMAL SALINE 500ML BAG 500 ML IV ONE (11:00)
--- NOTE | 2021-01-27 11:18 | PDOC ---
Date of Service: DATE: 01/27/21 TIME: 11:13 Objective: Objective: Reviewed nursing notes - let Hamzah drip out of her mouth. D/w nurse - won't eat, c/o abd pain, refuses IV. Vital Signs: Vital Signs Date Time Temp Pulse Resp B/P (MAP) Pulse Ox O2 Delivery O2 Flow Rate FiO2 01/27/21 08:00 Room Air 01/27/21 07:50 99.6 74 16 147/59 (88) 98 99.6 Labs: Laboratory Tests Test 01/26/21 11:49 01/26/21 16:46 01/26/21 20:42 01/27/21 07:56 Glucose (Fingerstick) 82 mg/dL (70-99) 81 mg/dL (70-99) 73 mg/dL (70-99) 81 mg/dL (70-99) PE: GEN: dialyzing, in COVID isolation - exam deferred A/P: COVID, encephalopathy Leuckotyosis, ESRD, chronic anemia, elevated AST and ALT (new this admission - did have elevated LFTs in 2018) Chronic abd pain, GERD, gastroparesis - past workup per GI consult note -- Mental status still an issue, not eating, non-compliant. Justicifation of Admission Dx: Justifications for Admission: Justification of Admission Dx: N/A ALL GONZALEZ Jan 27, 2021 11:17
--- NOTE | 2021-01-27 12:06 | PDOC ---
Renal-Progress Notes Subjective Notes Notes STILL OCC CONFUSION History of Present Illness Hx of present illness STABLE AND SLOWLY IMPROVING Vitals Vitals Vital Signs Date Time Temp Pulse Resp B/P (MAP) Pulse Ox O2 Delivery O2 Flow Rate FiO2 01/27/21 08:00 Room Air 01/27/21 07:50 99.6 74 16 147/59 (88) 98 99.6 Weight Weight [ ] I.O. Intake and Output Intake and Output 01/27/21 07:00 Intake Total 0 ml Balance 0 ml Intake Oral 0 ml # Voids 2 Labs Labs Laboratory Tests Test 01/26/21 16:46 01/26/21 20:42 01/27/21 06:40 01/27/21 07:56 Glucose (Fingerstick) 81 mg/dL (70-99) 73 mg/dL (70-99) 81 mg/dL (70-99) White Blood Count 16.2 x10^3/uL (4.0-11.0) Red Blood Count 3.15 x10^6/uL (3.50-5.40) Hemoglobin 9.6 g/dL (12.0-15.5) Hematocrit 29.5 % (36.0-47.0) Mean Corpuscular Volume 94 fL (79-100) Mean Corpuscular Hemoglobin 30 pg (25-35) Mean Corpuscular Hemoglobin Concent 33 g/dL (31-37) Red Cell Distribution Width 15.5 % (11.5-14.5) Platelet Count 213 x10^3/uL (140-400) Neutrophils (%) (Auto) 88 % (31-73) Lymphocytes (%) (Auto) 4 % (24-48) Monocytes (%) (Auto) 7 % (0-9) Eosinophils (%) (Auto) 0 % (0-3) Basophils (%) (Auto) 0 % (0-3) Neutrophils # (Auto) 14.3 x10^3/uL (1.8-7.7) Lymphocytes # (Auto) 0.7 x10^3/uL (1.0-4.8) Monocytes # (Auto) 1.2 x10^3/uL (0.0-1.1) Eosinophils # (Auto) 0.1 x10^3/uL (0.0-0.7) Basophils # (Auto) 0.0 x10^3/uL (0.0-0.2) Sodium Level 140 mmol/L (136-145) Potassium Level 4.5 mmol/L (3.5-5.1) Chloride Level 101 mmol/L (98-107) Carbon Dioxide Level 28 mmol/L (21-32) Anion Gap 11 (6-14) Blood Urea Nitrogen 47 mg/dL (7-20) Creatinine 7.7 mg/dL (0.6-1.0) Estimated GFR (Cockcroft-Gault) 6.5 BUN/Creatinine Ratio 6 (6-20) Glucose Level 79 mg/dL (70-99) Calcium Level 9.1 mg/dL (8.5-10.1) Total Bilirubin 0.6 mg/dL (0.2-1.0) Aspartate Amino Transf (AST/SGOT) 68 U/L (15-37) Alanine Aminotransferase (ALT/SGPT) 111 U/L (14-59) Alkaline Phosphatase 96 U/L (46-116) Total Protein 6.1 g/dL (6.4-8.2) Albumin 2.6 g/dL (3.4-5.0) Albumin/Globulin Ratio 0.7 (1.0-1.7) Review of Systems Constitutional: yes: other (CONFUSED) Physical Exam General Appearance: mild distress Skin: warm Respiratory: bilateral CTA, decreased breath sounds Heart: S1S2 Abdomen: soft, bowel sounds present Genitourinary: bladder flat Extremities: pulses present Neurology: confused Musculoskeletal: Osteoarthritis Assessment Assessment IMP COVID 19 POS [id number] ARM BC AVF HTN [id number] ENCEPHALOPATHY DUE TO ABOVE LEUCOCYTOSIS-NEW ANEMIA FLUID OVERLOAD-RESOLVED ACUTE ON CHRONIC DIASTOLIC CHF FEVER CAD WITH CABG PLAN [facility] ON HOLD CONT HOME MEDS RENAL DIET ENC COMPLIANCE ID EVAL AND TX HD TODAY UF TO TW CATAPRESS TTS PATCH HAVE DISCUSSED CASE WITH DR DANG WILL FOLLOW TING REYNA MD Jan 27, 2021 12:06
--- NOTE | 2021-01-27 15:23 | NUR ---
SS following up with discharge planning. SS reviewed pt chart and discussed with pt RN. Pt is currently on room air. PT/OT recommended custodial unit. Pt has outpatient dialysis at [facility], Wednesday, , and Wednesday. COVID19 positive on 01/16/2021. PT/OT recommended custodial unit. SS re-faxed referral to [facility], ; fax [phone]. SS phoned and faxed referral to [facility], ; fax [phone]. SS will continue to follow for discharge planning.
[2021-01-27 15:30] VITALS: BP 159/79
[2021-01-27] MEDS: PIPERACILLIN/TAZOBACTAM 2.25 GM in IV NORMAL SALINE 50ML 50 ML IV SCH ×2 (16:55→23:22)
[2021-01-27 19:49] VITALS: BP 194/56
[2021-01-27] MEDS: ATORVASTATIN CALCIUM 40 MG TABLET. PO SCH (20:47)
[2021-01-27] MEDS: AA 4.25 %/CALCIUM/LYTES/D5W 1,000 ML IV SCH (20:47)
[2021-01-27 22:32] VITALS: BP_SYST 171; BP_SYST 204; BP_DIAS 59; BP_DIAS 68
[2021-01-28 02:40] VITALS: BP 169/93
[2021-01-28] MEDS: PIPERACILLIN/TAZOBACTAM 2.25 GM in IV NORMAL SALINE 50ML 50 ML IV SCH (05:59)
[2021-01-28] MEDS: METOCLOPRAMIDE ORAL SOLN 10 MG/10 ML SOLUTION. PO SCH ×4 (07:30→20:37)
[2021-01-28] MEDS: PANTOPRAZOLE 40 MG TABLET.DR. PO SCH (07:30)
[2021-01-28] MEDS ORDERED: IV NORMAL SALINE 1000ML BAG 1,000 ML IV PRN ×2 (07:30)
[2021-01-28] MEDS ORDERED: DIALYSIS PATIENT. MC PRN ×2 (07:30)
[2021-01-28] MEDS ORDERED: ALBUMIN HUMAN 25% 200 ML IV PRN (07:30)
[2021-01-28 07:50] VITALS: BP 191/67
[2021-01-28] MEDS: INSULIN LISPRO 300 UNITS/3 ML VIAL. SQ SCH ×3 (08:00→17:00)
--- NOTE | 2021-01-28 08:48 | PDOC ---
Infectious Disease Note Subjective: Subjective Patient little more alert today Remains on room air Afebrile Has swelling over the right upper extremity with piv d/w RN Vital Signs: Vital Signs Vital Signs Date Time Temp Pulse Resp B/P (MAP) Pulse Ox O2 Delivery O2 Flow Rate FiO2 01/28/21 07:50 97.3 16 191/67 (108) 97 Room Air 97.3 01/28/21 02:40 75 Physical Exam: PHYSICAL EXAM GEN: Pt opens eyes transiently, appears comfortable on room air HEENT: Normocephalic atraumatic, NECK supple no meningismus LUNGS: Decreased breath sound at the bases , no accessory muscle use HEART: S1, S2 regular. ABDOMEN: Soft, nontender, no organomegaly. no pereira EXTREMITIES: Right upper extremity mild edema present no cyanosis. Fistula site clean SKIN: Unremarkable. NEUROLOGIC: Little more alert, moves all 4 extremities Pscyh calm Medications: Inpatient Meds: Medications reviewed. Labs: Lab Laboratory Tests Test 01/27/21 20:56 01/28/21 08:15 Glucose (Fingerstick) 75 mg/dL (70-99) 138 mg/dL (70-99) Objective: Assessment: 1. COVID-19 positive. 2. Encephalopathy , not improving, appears multifactorial ,hypertensive and covid 3. End-stage renal disease, on hemodialysis through left upper extremity fistula. 4. Coronary artery disease. 5. Hypertension. 6. Coronary artery disease. 7. h/o Cerebrovascular accident in the past. 8.Gastroparesis, nausea and vomiting resolved 9. Leucocytosis afebrile this admission, UA neg on admission,on RA, could be reactive, KUB shows nonspecific changes 10. Back pain appears musculoskeletal, x ray with no acute findings Plan: Plan of Care no ua and uc available as pt did not cooperate for straight cath Chest x-ray , thoracic spine x-ray reviewed no acute abnormality Obtain blood culture if temperature greater than 101 F Patient has poor IV access Would like to avoid PICC line placement in this patient Will change Zosyn to empiric cefepime postdialysis dose f/u CT chest abdomen and pelvis pending Obtain ultrasound of right upper extremity Trend WBC Cont supportive care monitor labs and cultures Maintain aspiration precautions Prognosis very poor consider palliative care d/w RN HERMANN BA MD Jan 28, 2021 08:48
[2021-01-28] MEDS: MINOXIDIL 2.5 MG TABLET PO SCH ×2 (09:14→20:33)
[2021-01-28] MEDS: ASPIRIN ENTERIC COATED 81 MG TABLET.DR. PO SCH (09:14)
[2021-01-28] MEDS: CLOPIDOGREL BISULFATE 75 MG TABLET PO SCH (09:14)
[2021-01-28] MEDS: QUEtiapine 25 MG TABLET. PO SCH ×3 (09:14→20:37)
[2021-01-28] MEDS: EZETIMIBE 10 MG TABLET. PO SCH (09:14)
[2021-01-28] MEDS: CARVEDILOL 12.5 MG TABLET. PO SCH ×2 (09:15→16:07)
--- NOTE | 2021-01-28 09:45 | PDOC ---
IM PROGRESS NOTES- Subjective Subjective Patient is not eating. She is not cooperative. No c/o abdominal pain. She refuses to take medications. She has no other complaints. She denies any pain or dyspnea. Objective Vitals/I&O Vital Signs Date Time Temp Pulse Resp B/P (MAP) Pulse Ox O2 Delivery O2 Flow Rate FiO2 01/28/21 09:15 85 01/28/21 07:50 97.3 16 191/67 (108) 97 Room Air 97.3 I & O 01/27/21 01/27/21 01/28/21 15:00 23:00 07:00 Intake Total 0 ml 0 ml Balance 0 ml 0 ml Physical Exam Physical Exam General Appearance - alert and in no distress Chest - decreased breath sounds at bases Heart - S1 and S2 normal Abdomen - soft, non tender Neurological - alert,cognitive deficits Musculoskeletal - generalized weakness Extremities - no edema Labs Laboratory Tests Test 01/27/21 20:56 01/28/21 08:15 Glucose (Fingerstick) 75 mg/dL (70-99) 138 mg/dL (70-99) H Meds Current Medications Medications (Trade) Dose Ordered Sig/Srinath Route PRN Reason Start Time Stop Time Status Last Admin Dose Admin Piperacillin Sod/ Tazobactam Sod 2.25 gm/Sodium Chloride 50 ml @ 100 mls/hr Q8HRS IV 01/27/21 14:00 01/28/21 05:59 Vancomycin HCl 1.5 gm/Sodium Chloride 500 ml @ 250 mls/hr 1X ONCE IV 01/27/21 11:00 01/27/21 12:59 DC 01/27/21 17:47 Amino Acids/ Electrolytes/ Dextrose 1,000 ml @ 60 mls/hr [id number] IV 01/27/21 18:45 01/27/21 20:47 Assessment Assessment 1. Acute metabolic encephalopathy. Continue to give her lorazepam as needed. Monitor closely in the Intensive Care Unit. Consult Dr. Martinez for neurology evaluation and management. Likely due to hypertensive crisis.Mental status is improving. 2. Acute hypertensive crisis. Patient was initially treated with Cardene IV drip. Consult Dr. Leahy for cardiology evaluation and management. 3. Elevated troponin. This may be due to demand ischemia and also end-stage renal disease may be contributing. 4. End-stage renal disease, on hemodialysis. 5. Coronary artery disease. 6. Diastolic congestive heart failure. 7. Physical deconditioning. 8. Asthma. 9. Gastroesophageal reflux disease. 10. Hyperlipidemia. 11. Severe pulmonary hypertension. 12. 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 13. History of depression. 14. 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 Monitor blood sugar. 15. History of secondary hyperparathyroidism. 16. Marijuana abuse Plan: End-stage renal disease on hemodialysis - consult Dr. Hernandez for management of end-stage renal disease and hemodialysis. Condition treatment discussed with the patient's brother at bedside in the Emergency Room. Prognosis of this patient is extremely poor due to her multiple medical problems. As patient remained stable patient was admitted to CVC unit. Acute hypertensive crisis- patient is off Cardene drip. Labs reviewed. As needed IV hydralazine. Blood pressure is better controlled with Ca [id number]. COVID-19 infection. SARS-CoV-2 PCR test is positive. This may be also contributing to patient's poor appetite, body aches and confusion.I will also consult Dr. Ray Nino for Infectious Disease evaluation and management because of her fever of 103 degrees Fahrenheit. Her chest x-ray, urinalysis as well as SARS-CoV-2 antigen test is negative. Consult Dr. Nino for infectious disease evaluation and management. Patient is running low-grade fever. WBC count is 16.2. Discussed with Dr. Nino. Dr. Nino will start her on antibiotics empirically. Scans,labs pending. Acute metabolic encephalopathy-most likely due to COVID-19 infection and may be multifactorial. Discussed with Dr. Martinez last week. Severe malnutrition-patient is not eating but also does not allow any IV fluids or IV access. I have encouraged her to drink Nepro. Rt arm swollen. Change IV to PICC line. Started on PPN yesterday. Prognosis of this patient is extremely poor due to her multiple medical problems. Message left for daughter Kerri -about patient's condition,treatment,options , Plan Plan For more details regarding further plans, please refer to the orders. Justifications for Admission Other Justification GAURAV DANG MD Jan 28, 2021 09:45
--- NOTE | 2021-01-28 10:17 | PDOC ---
Date of Service: DATE: 01/28/21 TIME: 10:13 Objective: Objective: D/w nurse - hasn't tried morning meds yet (crushed and ready), did take some bites of pancakes with help. Arm swollen after IV access regained yesterday. To dialyze again today. Vital Signs: Vital Signs Date Time Temp Pulse Resp B/P (MAP) Pulse Ox O2 Delivery O2 Flow Rate FiO2 01/28/21 09:15 85 01/28/21 07:50 97.3 16 191/67 (108) 97 Room Air 97.3 Labs: Laboratory Tests Test 01/27/21 20:56 01/28/21 08:15 Glucose (Fingerstick) 75 mg/dL 138 mg/dL BLOOD CULTURE Final GRAM POSITIVE COCCI IN CLUSTERS IN 1 OF 3 BOTTLES (2 SETS COLLECTED). CALLED TO MONICA METCALF, 6S, 01/28/21 AT 0913 BY Mell FUENTES. CULTURE HAS BEEN SENT TO [facility] FOR FURTHER IDENTIFICATION. PE: GEN: in COVID isolation, exam deferred on room air, HR reg, HTN on review of vitals A/P: COVID, encephalopathy ?GPC bacteremia, Leuckotyosis, ESRD, chronic anemia, elevated AST and ALT (checked 01/27) Chronic abd pain, GERD, gastroparesis - extensive past workup -- Since crushing pills, will change to Prevacid from Pantoprazole. Continue Reglan if she'll take. Recheck LFTs tomorrow. Encourage PO. Justicifation of Admission Dx: Justifications for Admission: Justification of Admission Dx: N/A ALL GONZALEZ Jan 28, 2021 10:17
[2021-01-28] MEDS: AA 4.25 %/CALCIUM/LYTES/D5W 1,000 ML IV SCH (11:25)
--- NOTE | 2021-01-28 11:41 | NUR ---
SS following up with discharge planning. SS reviewed pt chart and discussed with pt RN. Pt is currently on room air. Pt on Climinix. PT/OT recommended alf unit. Pt has outpatient dialysis at [facility], Wednesday, , and Wednesday. COVID19 positive on 01/16/2021. [facility], ; fax [phone], and [facility], ; fax [phone], declined pt due to dialysis. Juanjo, ; fax [phone], contacted SS and requested referral be re-faxed. SS phoned and faxed referral as requested. Per RN, not medically ready for discharge at this time. SS will continue to follow for discharge planning.
--- NOTE | 2021-01-28 11:47 | PDOC ---
Renal-Progress Notes Subjective Notes Notes CONFUSED History of Present Illness Hx of present illness NO ACUTE CHANGES. SLIGHTLY BETTER BUT OVERALL NO MEANINGFUL IMPROVEMENT. STILL REFUSING FOOD, IV'S AND MEDS Vitals Vitals Vital Signs Date Time Temp Pulse Resp B/P (MAP) Pulse Ox O2 Delivery O2 Flow Rate FiO2 01/28/21 09:15 85 01/28/21 07:50 97.3 16 191/67 (108) 97 Room Air 97.3 Weight Weight [ ] I.O. Intake and Output l Intake and Output 01/28/21 07:00 Intake Total 0 ml Balance 0 ml Intake Oral 0 ml # Voids 1 Labs Labs Laboratory Tests Test 01/27/21 20:56 01/28/21 08:15 Glucose (Fingerstick) 75 mg/dL (70-99) 138 mg/dL (70-99) Micro Micro Microbiology 01/27/21 Blood Culture - Final, Complete Review of Systems Constitutional: yes: other (CONFUSED) Physical Exam General Appearance: mild distress Skin: warm Respiratory: bilateral CTA, decreased breath sounds Heart: S1S2 Abdomen: soft, bowel sounds present Genitourinary: bladder flat Extremities: pulses present Neurology: confused Musculoskeletal: Osteoarthritis Assessment Assessment IMP COVID 19 POS [id number] ARM BC AVF HTN [id number] ENCEPHALOPATHY DUE TO ABOVE LEUCOCYTOSIS-NEW ANEMIA FLUID OVERLOAD-RESOLVED ACUTE ON CHRONIC DIASTOLIC CHF FEVER CAD WITH CABG PLAN EDGAR ON HOLD CONT HOME MEDS RENAL DIET ENC COMPLIANCE ID EVAL AND TX HD AGAIN TODAY UF TO TW CATAPRESS TTS PATCH HAVE DISCUSSED CASE WITH TING JOHNSTON MD Jan 28, 2021 11:47
[2021-01-28 14:14] VITALS: BP 161/62
--- NOTE | 2021-01-28 15:15 | NUR ---
Wound/Ostomy Care Wound Type/Assessment: wound care consult for coccyx wound. Pt has stage III PU to coccyx and DTI to left posterior heel. Pt has altered mental status and does not stay turned to side, even for dressing change. Pt is continuously moving in bed and rubbing heels on mattress. Treatment Recommendations/Plan: Cleanse wounds, apply skin prep and exuderm with foam dressing to coccyx and foam to left heel for protection. Change dressings every 3 days and PRN. Education provided: pt unable to be educated d/t mental status. Offloading surface/device: pt turned to side with pillow and heel floated on pillow. RN Will order heel medix boot. Recommended Referrals/Tests: na Discharge Recommendations for dressings: see above
--- NOTE | 2021-01-28 15:41 | RAD ---
EXAM: Chest, abdomen and pelvis CT without intravenous contrast. HISTORY: Leukocytosis. TECHNIQUE: Computed tomographic images of the chest, abdomen and pelvis were obtained without intrave nous contrast. Multiplanar reformatting was performed. *One or more of the following individualized dose reduction techniques were utilized for this examina tion: 1. Automated exposure control. 2. Adjustment of the mA and/or kV according to patient size. 3. Use of iterative reconstruction technique. COMPARISON: 03/16/2016. FINDINGS: Chest: There is a small right pleural effusion. There is a right greater than left basilar and posterior dependent atelectasis. There may be superimposed basilar pleural parenchymal scarring. There is cardiomegaly. There is evidence of coronary artery bypass surgery. There is a patulous debri s-filled esophagus. There is soft tissue stranding and gas within the right axilla and base of the ri ght neck, possibly due to recent catheterization. There is no acute or suspicious osseous finding. Abdomen and pelvis: No hepatic lesion is seen on this noncontrast exam. The gallbladder is absent. Th e spleen is normal in size. The pancreas is unremarkable. There is slight adrenal gland thickening. N o discrete nodule is seen. There is renal atrophy. There is no hydronephrosis. There is no appendicit is. There is moderate colonic stool. There is no evidence of bowel obstruction. There is mild bladder wall thickening, possibly due to relative under distention. There is a small amount of free fluid wi thin the dependent portions of the pelvis. The aorta is normal in caliber. There is no convincing lym phadenopathy. There is mild body wall edema. There is no acute or suspicious osseous lesion. IMPRESSION: 1. Small right pleural effusion and right greater than left posterior dependent and basilar atelectas is and possible superimposed pleural parenchymal scarring. There is no consolidated pneumonia. 2. Soft tissue stranding and small amount of soft tissue gas within the right axilla and base of the right neck. Correlate for recent instrumentation or catheterization. 3. Moderate colonic stool. 4. Mild bladder wall thickening. This may be due to underdistention or cystitis. Correlate with urina lysis. 5. Trace nonspecific pelvic free fluid and mild body wall edema. 6. Renal atrophy. Electronically signed by: Sera Mckeon MD (01/28/2021 3:38 PM) [id number]
[2021-01-28] MEDS ORDERED: CEFEPIME HCL IV Push 2 GM VIAL. IVP SCH (16:00)
[2021-01-28] MEDS: ISOSORBIDE MONONITRATE ER 30 MG TAB.ER.24H PO SCH (16:08)
[2021-01-28] MEDS: ACETAMINOPHEN 325 MG TABLET. PO PRN (16:08)
--- NOTE | 2021-01-28 16:17 | RAD ---
EXAM: Right upper extremity venous Doppler sonogram. HISTORY: Pain and swelling. TECHNIQUE: Warren scale and color Doppler sonographic evaluation of the right upper extremity veins wit h spectral waveform analysis was performed. FINDINGS: The exam is extremely limited due to patient motion and lack of patient cooperation. There is severe soft tissue edema within the upper and lower arm. The cephalic, basilic, radial and ulnar v eins are not seen in the forearm due to aforementioned swelling. There is edema overlying a venous ca theter site. No hematoma or mass is seen. There is normal color flow within the visualized veins. IMPRESSION: No Doppler evidence of upper extremity venous thrombosis, with evaluation slightly limite d due to patient motion and soft tissue edema described above. Electronically signed by: Sera Mckeon MD (01/28/2021 4:14 PM) [id number]
[2021-01-28 17:22] LABS: BASO % 0 % (0-3); EOS % 0 % (0-3); HEMATOCRIT 33.5 % (36.0-47.0); HEMOGLOBIN 10.7 g/dL (12.0-15.5); LYMPH # 0.4 x10^3/uL (1.0-4.8); LYMPH % 2 % (24-48); MEAN CORPUSCULAR HEMOGLOBIN 30 pg (25-35); MEAN CORPUSCULAR HGB CONC 32 g/dL (31-37); MEAN CORPUSCULAR VOLUME 94 fL (79-100); MONO # 1.5 x10^3/uL (0.0-1.1); MONO % 9 % (0-9); NEUT # 15.4 x10^3/uL (1.8-7.7); NEUT % 89 % (31-73); PLATELET COUNT 199 x10^3/uL (140-400); RED BLOOD COUNT 3.56 x10^6/uL (3.50-5.40); RED CELL DISTRIBUTION WIDTH 15.4 % (11.5-14.5); WHITE BLOOD COUNT 17.3 x10^3/uL (4.0-11.0)
[2021-01-28 17:28] LABS: ALBUMIN 2.6 g/dL (3.4-5.0); ALBUMIN/GLOBULIN RATIO 0.8 (1.0-1.7); CALCIUM 9.1 mg/dL (8.5-10.1); CREATININE 3.4 mg/dL (0.6-1.0); GFR 16.8; POTASSIUM 4.6 mmol/L (3.5-5.1); TOTAL BILIRUBIN 0.8 mg/dL (0.2-1.0); TOTAL PROTEIN 5.9 g/dL (6.4-8.2)
[2021-01-28 18:56] LABS: % BANDS 7 % (0-9); % LYMPHS 4 % (24-48); % METAS 1 % (0-0); % MONOS 2 % (0-10); % SEGS 86 % (35-66); PLT ESTIMATE ADEQUATE (ADEQUATE)
[2021-01-28 19:53] VITALS: BP 99/42
[2021-01-28] MEDS: ATORVASTATIN CALCIUM 40 MG TABLET. PO SCH (20:32)
[2021-01-28 22:28] VITALS: BP 142/62
[2021-01-29 02:36] VITALS: BP 149/67
[2021-01-29] MEDS: AA 4.25 %/CALCIUM/LYTES/D5W 1,000 ML IV SCH ×2 (04:05→19:13)
[2021-01-29] MEDS ORDERED: VANCOMYCIN RANDOM LEVEL. MC ONE (05:00)
[2021-01-29 07:00] VITALS: BP 158/65
[2021-01-29] MEDS: INSULIN LISPRO 300 UNITS/3 ML VIAL. SQ SCH ×3 (08:00→17:00)
[2021-01-29] MEDS: ASPIRIN ENTERIC COATED 81 MG TABLET.DR. PO SCH (08:28)
[2021-01-29] MEDS: METOCLOPRAMIDE ORAL SOLN 10 MG/10 ML SOLUTION. PO SCH ×4 (08:28→20:28)
[2021-01-29] MEDS: CLOPIDOGREL BISULFATE 75 MG TABLET PO SCH (08:30)
[2021-01-29] MEDS: QUEtiapine 25 MG TABLET. PO SCH ×3 (08:30→20:28)
[2021-01-29] MEDS: ISOSORBIDE MONONITRATE ER 30 MG TAB.ER.24H PO SCH ×2 (08:30→16:28)
[2021-01-29] MEDS: LANSOPRAZOLE 30 MG TAB.RAP.DR PO SCH (08:30)
[2021-01-29] MEDS: EZETIMIBE 10 MG TABLET. PO SCH (08:30)
[2021-01-29] MEDS: MINOXIDIL 2.5 MG TABLET PO SCH ×3 (08:31→20:29)
[2021-01-29] MEDS: CARVEDILOL 12.5 MG TABLET. PO SCH ×2 (08:31→17:56)
--- NOTE | 2021-01-29 08:39 | PDOC ---
PROGRESS NOTES Date of Service DATE: 01/29/21 TIME: 08:37 Assessment Problems Medical Problems: (1) Altered mental status Status: Acute (2) ESRD (end stage renal disease) on dialysis Status: Acute (3) Hypertensive urgency Status: Acute Encephalopathy, hypertensive, also role of COVID 19 encephalopathy. She takes out her IVs and refuses to eat COVID 19 History of strokes including chronic right basal ganglia and bilateral thalamic lacunar infarcts on the CT. CT also shows white matter disease consistent with hypertension and diabetes, I doubt that she also has demyelinating disease. Elevated troponin, renal failure, anemia, coronary artery disease, diastolic congestive heart failure, fever. 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 Ng has a message in with the patient's daughter, apparently she has not replied Subjective "I feel bad all over." Objective Vital Signs Date Time Temp Pulse Resp B/P (MAP) Pulse Ox O2 Delivery O2 Flow Rate FiO2 01/29/21 08:31 94 158/65 01/29/21 02:36 98.1 19 99 Room Air 98.1 Intake and Output 01/29/21 07:00 Intake Total 60 ml Balance 60 ml Intake Oral 60 ml PHYSICAL EXAM Alert, knows location, month, year, not the name of the president EOMI. CN: no focal findings. Muscle tone: normal. Muscle strength: 4/5, weaker on the left DTR: 0-1+ Plantar reflex: flexor Gait: not examined in bed. Sensory exam: Stocking loss. No cerebellar signs elicited. Review of Relevant I have reviewed the following items richard (where applicable) has been applied. Labs Laboratory Tests Test 01/27/21 20:56 01/28/21 08:15 01/28/21 17:00 01/28/21 17:23 Glucose (Fingerstick) 75 mg/dL (70-99) 138 mg/dL (70-99) 124 mg/dL (70-99) White Blood Count 17.3 x10^3/uL (4.0-11.0) Red Blood Count 3.56 x10^6/uL (3.50-5.40) Hemoglobin 10.7 g/dL (12.0-15.5) Hematocrit 33.5 % (36.0-47.0) Mean Corpuscular Volume 94 fL (79-100) Mean Corpuscular Hemoglobin 30 pg (25-35) Mean Corpuscular Hemoglobin Concent 32 g/dL (31-37) Red Cell Distribution Width 15.4 % (11.5-14.5) Platelet Count 199 x10^3/uL (140-400) Neutrophils (%) (Auto) 89 % (31-73) Lymphocytes (%) (Auto) 2 % (24-48) Monocytes (%) (Auto) 9 % (0-9) Eosinophils (%) (Auto) 0 % (0-3) Basophils (%) (Auto) 0 % (0-3) Neutrophils # (Auto) 15.4 x10^3/uL (1.8-7.7) Lymphocytes # (Auto) 0.4 x10^3/uL (1.0-4.8) Monocytes # (Auto) 1.5 x10^3/uL (0.0-1.1) Eosinophils # (Auto) 0.0 x10^3/uL (0.0-0.7) Basophils # (Auto) 0.0 x10^3/uL (0.0-0.2) Segmented Neutrophils % 86 % (35-66) Band Neutrophils % 7 % (0-9) Lymphocytes % 4 % (24-48) Monocytes % 2 % (0-10) Metamyelocytes % 1 % (0-0) Platelet Estimate Adequate (ADEQUATE) Sodium Level 141 mmol/L (136-145) Potassium Level 4.6 mmol/L (3.5-5.1) Chloride Level 102 mmol/L (98-107) Carbon Dioxide Level 26 mmol/L (21-32) Anion Gap 13 (6-14) Blood Urea Nitrogen 18 mg/dL (7-20) Creatinine 3.4 mg/dL (0.6-1.0) Estimated GFR (Cockcroft-Gault) 16.8 BUN/Creatinine Ratio 5 (6-20) Glucose Level 120 mg/dL (70-99) Calcium Level 9.1 mg/dL (8.5-10.1) Total Bilirubin 0.8 mg/dL (0.2-1.0) Aspartate Amino Transf (AST/SGOT) 118 U/L (15-37) Alanine Aminotransferase (ALT/SGPT) 160 U/L (14-59) Alkaline Phosphatase 116 U/L (46-116) Ammonia < 10 mcmol/L (11-34) Total Protein 5.9 g/dL (6.4-8.2) Albumin 2.6 g/dL (3.4-5.0) Albumin/Globulin Ratio 0.8 (1.0-1.7) Test 01/28/21 20:24 01/29/21 08:22 Glucose (Fingerstick) 132 mg/dL (70-99) 101 mg/dL (70-99) Laboratory Tests Test 01/28/21 17:00 01/28/21 17:23 01/28/21 20:24 01/29/21 08:22 White Blood Count 17.3 x10^3/uL (4.0-11.0) Red Blood Count 3.56 x10^6/uL (3.50-5.40) Hemoglobin 10.7 g/dL (12.0-15.5) Hematocrit 33.5 % (36.0-47.0) Mean Corpuscular Volume 94 fL (79-100) Mean Corpuscular Hemoglobin 30 pg (25-35) Mean Corpuscular Hemoglobin Concent 32 g/dL (31-37) Red Cell Distribution Width 15.4 % (11.5-14.5) Platelet Count 199 x10^3/uL (140-400) Neutrophils (%) (Auto) 89 % (31-73) Lymphocytes (%) (Auto) 2 % (24-48) Monocytes (%) (Auto) 9 % (0-9) Eosinophils (%) (Auto) 0 % (0-3) Basophils (%) (Auto) 0 % (0-3) Neutrophils # (Auto) 15.4 x10^3/uL (1.8-7.7) Lymphocytes # (Auto) 0.4 x10^3/uL (1.0-4.8) Monocytes # (Auto) 1.5 x10^3/uL (0.0-1.1) Eosinophils # (Auto) 0.0 x10^3/uL (0.0-0.7) Basophils # (Auto) 0.0 x10^3/uL (0.0-0.2) Segmented Neutrophils % 86 % (35-66) Band Neutrophils % 7 % (0-9) Lymphocytes % 4 % (24-48) Monocytes % 2 % (0-10) Metamyelocytes % 1 % (0-0) Platelet Estimate Adequate (ADEQUATE) Sodium Level 141 mmol/L (136-145) Potassium Level 4.6 mmol/L (3.5-5.1) Chloride Level 102 mmol/L (98-107) Carbon Dioxide Level 26 mmol/L (21-32) Anion Gap 13 (6-14) Blood Urea Nitrogen 18 mg/dL (7-20) Creatinine 3.4 mg/dL (0.6-1.0) Estimated GFR (Cockcroft-Gault) 16.8 BUN/Creatinine Ratio 5 (6-20) Glucose Level 120 mg/dL (70-99) Calcium Level 9.1 mg/dL (8.5-10.1) Total Bilirubin 0.8 mg/dL (0.2-1.0) Aspartate Amino Transf (AST/SGOT) 118 U/L (15-37) Alanine Aminotransferase (ALT/SGPT) 160 U/L (14-59) Alkaline Phosphatase 116 U/L (46-116) Ammonia < 10 mcmol/L (11-34) Total Protein 5.9 g/dL (6.4-8.2) Albumin 2.6 g/dL (3.4-5.0) Albumin/Globulin Ratio 0.8 (1.0-1.7) Glucose (Fingerstick) 124 mg/dL (70-99) 132 mg/dL (70-99) 101 mg/dL (70-99) Microbiology 01/27/21 Blood Culture - Final, Complete Medications Current Medications Fentanyl Citrate (Fentanyl 2ml Vial) 75 mcg 1X ONCE IVP Last administered on 01/16/21at 08:31; Start 01/16/21 at 08:00; Stop 01/16/21 at 08:05; Status DC Ziprasidone (Geodon Im) 20 mg 1X ONCE IM Last administered on 01/16/21at 08:08; Start 01/16/21 at 08:00; Stop 01/16/21 at 08:05; Status DC Lorazepam (Ativan Inj) 2 mg 1X ONCE IVP Last administered on 01/16/21at 08:45; Start 01/16/21 at 08:45; Stop 01/16/21 at 08:46; Status DC Hydralazine HCl (Apresoline Inj) 20 mg 1X ONCE IVP Last administered on 01/16/21at 09:04; Start 01/16/21 at 09:00; Stop 01/16/21 at 09:02; Status DC Lorazepam (Ativan Inj) 2 mg 1X ONCE IVP Last administered on 01/16/21at 09:40; Start 01/16/21 at 09:30; Stop 01/16/21 at 09:31; Status DC Labetalol HCl (Normodyne Iv Push) 10 mg 1X ONCE IVP Last administered on 01/16/21at 12:03; Start 01/16/21 at 11:00; Stop 01/16/21 at 11:01; Status DC Aspirin (Aspirin Rectal Supp) 300 mg 1X ONCE PA Last administered on 01/16/21at 12:05; Start 01/16/21 at 11:15; Stop 01/16/21 at 11:16; Status DC Ondansetron HCl (Zofran) 4 mg PRN Q8HRS PRN IVP NAUSEA/VOMITING; Start 01/16/21 at 11:30; Stop 01/17/21 at 11:29; Status DC Insulin Human Lispro (HumaLOG) 0-5 UNITS TIDWMEALS SQ ; Start 01/16/21 at 12:00 Dextrose (Dextrose 50%-Water Syringe) 12.5 gm PRN Q15MIN PRN IV SEE COMMENTS; Start 01/16/21 at 11:30 Lorazepam (Ativan Inj) 1 mg PRN Q4HRS PRN IVP ANXIETY / AGITATION Last administered on 01/18/21at 04:18; Start 01/16/21 at 12:45 Hydralazine HCl (Apresoline Inj) 20 mg PRN Q4HRS PRN IVP ELEVATED BP, SEE COMMENTS Last administered on 01/16/21at 13:30; Start 01/16/21 at 13:00 Nicardipine HCl 50 mg/Sodium Chloride 250 ml @ 25 mls/hr CONT PRN IV SEE I/O RECORD Last administered on 01/17/21 04:25; Start 01/16/21 at 14:00; Stop 01/17/21 at 16:08; Status DC Aspirin (Ecotrin) 81 mg DAILY PO Last administered on 01/29/21 08:28; Start 01/17/21 at 13:00 Atorvastatin Calcium (Lipitor) 80 mg HS PO Last administered on 01/28/21 20:32; Start 01/17/21 at 21:00 Carvedilol (Coreg) 12.5 mg BIDWMEALS PO Last administered on 01/29/21 08:31; Start 01/17/21 at 17:00 Clonidine HCl (Catapres) 0.2 mg BID PO Last administered on 01/23/21 09:26; Start 01/17/21 at 21:00; Stop 01/23/21 at 10:30; Status DC Clopidogrel Bisulfate (Plavix) 75 mg DAILY PO Last administered on 01/29/21 08:30; Start 01/17/21 at 13:00 EZETIMIBE (Zetia) 10 mg DAILY PO Last administered on 01/29/21 08:30; Start 01/17/21 at 13:00 Hydralazine HCl (Apresoline) 50 mg TID PO Last administered on 01/29/21 08:29; Start 01/17/21 at 14:00 Isosorbide Mononitrate (Imdur) 120 mg DAILY PO Last administered on 01/29/21 08:30; Start 01/17/21 at 13:00 Minoxidil (Loniten) 2.5 mg BID PO Last administered on 01/29/21 08:31; Start 01/17/21 at 21:00 Acetaminophen (Tylenol) 650 mg PRN Q6HRS PRN PO MILD PAIN / TEMP > 100.3'F Last administered on 01/28/21 16:08; Start 01/17/21 at 20:45 Acetaminophen/ Hydrocodone Bitart (Lortab 7.5/325) 1 tab PRN Q6HRS PRN PO MODERATE PAIN Last administered on 8/20/21at 10:57; Start 01/17/21 at 20:45 Sodium Chloride 1,000 ml @ 1,000 mls/hr Q1H PRN IV hypotension; Start 01/18/21 at 11:30; Stop 01/18/21 at 17:29; Status DC Albumin Human 200 ml @ 200 mls/hr 1X PRN PRN IV Hypotension; Start 01/18/21 at 11:30; Stop 01/18/21 at 17:29; Status DC Sodium Chloride 1,000 ml @ 400 mls/hr Q2H30M PRN IV PATENCY; Start 01/18/21 at 11:30; Stop 01/18/21 at 23:29; Status DC Info (PHARMACY MONITORING -- do not chart) 1 each PRN DAILY PRN MC SEE COMMENTS; Start 01/18/21 at 11:30; Status UNV Info (PHARMACY MONITORING -- do not chart) 1 each PRN DAILY PRN MC SEE COMMENTS; Start 01/18/21 at 11:30; Status Cancel Fentanyl Citrate (Fentanyl 2ml Vial) 25 mcg PRN Q3HRS PRN IV PAIN Last administered on 01/21/21at 16:15; Start 01/18/21 at 14:00 Ondansetron HCl (Zofran Odt) 4 mg PRN Q6HRS PRN PO NAUSEA/VOMITING Last administered on 01/21/21at 06:04; Start 01/19/21 at 09:30 Oxycodone HCl (Roxicodone) 10 mg PRN Q4HRS PRN PO SEVERE PAIN Last administered on 01/24/21at 02:35; Start 01/19/21 at 17:30 Simethicone (Gas-X) 80 mg PRN TID PRN PO GAS / BLOATING Last administered on 01/21/21at 06:04; Start 01/19/21 at 21:15 Lorazepam (Ativan) 0.5 mg PRN Q6HRS PRN PO ANXIETY / AGITATION Last administ ered on 01/23/21at 22:06; Start 01/19/21 at 21:15 Pantoprazole Sodium (Protonix) 40 mg DAILYAC PO Last administered on 01/22/21at 09:37; Start 01/21/21 at 10:00; Stop 01/22/21 at 11:38; Status DC Sodium Chloride 1,000 ml @ 1,000 mls/hr Q1H PRN IV hypotension; Start 01/21/21 at 12:45; Stop 01/21/21 at 18:44; Status DC Albumin Human 200 ml @ 200 mls/hr 1X PRN PRN IV Hypotension; Start 01/21/21 at 12:45; Stop 01/21/21 at 18:44; Status DC Acetaminophen (Tylenol) 500 mg 1X PRN PRN PO MILD PAIN / TEMP > 100.3'F; Start 01/21/21 at 12:45; Stop 01/22/21 at 12:44; Status DC Diphenhydramine HCl (Benadryl) 25 mg 1X PRN PRN IV ITCHING; Start 01/21/21 at 12:45; Stop 01/22/21 at 12:44; Status DC Diphenhydramine HCl (Benadryl) 25 mg 1X PRN PRN IV ITCHING; Start 01/21/21 at 12:45; Stop 01/22/21 at 12:44; Status DC Sodium Chloride 1,000 ml @ 400 mls/hr Q2H30M PRN IV PATENCY; Start 01/21/21 at 12:45; Stop 01/22/21 at 00:44; Status DC Lidocaine HCl (Xylocaine-Mpf 1% 2ml Vial) 2 ml 1X PRN PRN INJ FOR DIALYSIS; Start 01/21/21 at 12:45; Stop 01/22/21 at 12:44; Status DC Info (PHARMACY MONITORING -- do not chart) 1 each PRN DAILY PRN MC SEE C OMMENTS; Start 01/21/21 at 12:45; Status UNV Info (PHARMACY MONITORING -- do not chart) 1 each PRN DAILY PRN MC SEE COMMENTS; Start 01/21/21 at 12:45; Status Cancel Bisacodyl (Dulcolax Supp) 10 mg PRN DAILY PRN PA CONSTIPATION; Start 01/21/21 at 19:30 Senna/Docusate Sodium (Senna Plus) 2 tab PRN BID PRN PO CONSTIPATION Last administered on 01/28/21at 20:32; Start 01/21/21 at 19:30 Calcium Carbonate/ Glycine (Tums) 500 mg PRN AFTMEALHC PRN PO INDIGESTION Last administered on 01/24/21at 10:56; Start 01/22/21 at 03:15 Metoclopramide HCl (Reglan Vial) 5 mg PRN Q6HRS PRN IVP NAUSEA/VOMITING; Start 01/22/21 at 11:45; Stop 01/24/21 at 09:22; Status DC Pantoprazole Sodium (PROTONIX VIAL for IV PUSH) 40 mg DAILYAC IVP ; Start 01/23/21 at 07:30; Stop 01/24/21 at 10:51; Status DC Sodium Chloride 1,000 ml @ 1,000 mls/hr Q1H PRN IV hypotension; Start 01/23/21 at 09:30; Stop 01/23/21 at 15:29; Status DC Albumin Human 200 ml @ 200 mls/hr 1X PRN PRN IV Hypotension; Start 01/23/21 at 09:30; Stop 01/23/21 at 15:29; Status DC Sodium Chloride 1,000 ml @ 400 mls/hr Q2H30M PRN IV PATENCY; Start 01/23/21 at 09:30; Stop 01/23/21 at 21:29; Status DC Lidocaine HCl (Xylocaine-Mpf 1% 2ml Vial) 2 ml 1X PRN PRN INJ FOR DIALYSIS; Start 01/23/21 at 09:30; Stop 01/24/21 at 09:29; Status DC Info (PHARMACY MONITORING -- do not chart) 1 each PRN DAILY PRN MC SEE COMMENTS; Start 01/23/21 at 09:30; Status UNV Info (PHARMACY MONITORING -- do not chart) 1 each PRN DAILY PRN MC SEE COMMENTS; Start 01/23/21 at 09:30; Stop 01/27/21 at 10:34; Status DC Clonidine HCl (Catapres Tts-3) 1 patch WEEKLY TD Last administered on 01/23/21at 18:14; Start 01/23/21 at 09:00 Quetiapine Fumarate (SEROquel) 12.5 mg [id number] PO Last administered on 01/23/21at 18:14; Start 01/23/21 at 11:00; Stop 01/24/21 at 09:17; Status DC Quetiapine Fumarate (SEROquel) 25 mg QHS PO Last administered on 01/28/21at 20:37; Start 01/24/21 at 21:00 Quetiapine Fumarate (SEROquel) 12.5 mg [id number] PO Last administered on 01/29/21at 08:30; Start 01/24/21 at 09:30 Metoclopramide HCl (Reglan Oral Solution) 5 mg TIDACHC PO Last administered on 01/29/21at 08:28; Start 01/24/21 at 09:30 Pantoprazole Sodium (Protonix) 40 mg DAILYAC PO ; Start 01/25/21 at 07:30; Stop 01/28/21 at 10:18; Status DC Sodium Chloride 1,000 ml @ 1,000 mls/hr Q1H PRN IV hypotension; Start 01/25/21 at 14:15; Stop 01/25/21 at 20:14; Status DC Albumin Human 200 ml @ 200 mls/hr 1X PRN PRN IV Hypotension; Start 01/25/21 at 14:15; Stop 01/25/21 at 20:14; Status DC Sodium Chloride 1,000 ml @ 400 mls/hr Q2H30M PRN IV PATENCY; Start 01/25/21 at 14:15; Stop 01/26/21 at 02:14; Status DC Info (PHARMACY MONITORING -- do not chart) 1 each PRN DAILY PRN MC SEE COMMENTS; Start 01/25/21 at 14:15; Status Cancel Info (PHARMACY MONITORING -- do not chart) 1 each PRN DAILY PRN MC SEE COMMENTS; Start 01/25/21 at 14:15; Status Cancel Piperacillin Sod/ Tazobactam Sod 2.25 gm/Sodium Chloride 50 ml @ 100 mls/hr Q8HRS IV Last administered on 01/28/21at 05:59; Start 01/27/21 at 14:00; Stop 01/28/21 at 10:44; Status DC Vancomycin HCl (Vanco Per Pharmacy) 1 each PRN DAILY PRN MC SEE COMMENTS; Start 01/27/21 at 10:30 Info (PHARMACY MONITORING -- do not chart) 1 each PRN DAILY PRN MC SEE COMMENTS; Start 01/27/21 at 10:30 Vancomycin HCl 1.5 gm/Sodium Chloride 500 ml @ 250 mls/hr 1X ONCE IV Last administered on 01/27/21at 17:47; Start 01/27/21 at 11:00; Stop 01/27/21 at 12:59; Status DC Vancomycin HCl (Vancomycin Random Level) 1 each 1X ONCE MC ; Start 01/29/21 at 05:00; Stop 01/29/21 at 05:01; Status DC Amino Acids/ Electrolytes/ Dextrose 1,000 ml @ 60 mls/hr [id number] IV Last administered on 01/27/21at 20:47; Start 01/27/21 at 18:45 Sodium Chloride 1,000 ml @ 1,000 mls/hr Q1H PRN IV hypotension; Start 01/28/21 at 07:30; Stop 01/28/21 at 13:29; Status DC Albumin Human 200 ml @ 200 mls/hr 1X PRN PRN IV Hypotension; Start 01/28/21 at 07:30; Stop 01/28/21 at 13:29; Status DC Sodium Chloride 1,000 ml @ 400 mls/hr Q2H30M PRN IV PATENCY; Start 01/28/21 at 07:30; Stop 01/28/21 at 19:29; Status DC Info (PHARMACY MONITORING -- do not chart) 1 each PRN DAILY PRN MC SEE COMMENTS; Start 01/28/21 at 07:30; Status UNV Info (PHARMACY MONITORING -- do not chart) 1 each PRN DAILY PRN MC SEE COMMENTS; Start 01/28/21 at 07:30; Status UNV Lansoprazole (Prevacid) 30 mg DAILY PO Last administered on 01/29/21at 08:30; Start 01/29/21 at 09:00 Cefepime HCl (Maxipime) 2 gm TuTh IVP ; Start 01/28/21 at 16:00 Cefepime HCl (Maxipime) 3 gm Sa IVP ; Start 02/01/21 at 16:00 Active Scripts Active Lactulose 20 Gm/30 Ml Solution 20 Gm PO BID 5 Days Culturelle (Lactobacillus Rhamnosus Gg) 1 Each Cap.sprink 1 Cap PO BID Metoclopramide Hcl 5 Mg/1 Ml Vial 5 Mg IV PRN Q6HRS PRN Metoclopramide Hcl 5 Mg/1 Ml Vial 5 Mg IV [id number] Ondansetron Hcl 4 Mg/2 Ml Vial (Ondansetron Hcl/Pf) 4 Mg/2 Ml Vial 4 Mg IV PRN Q6HRS PRN Buspirone Hcl 5 Mg Tablet 5 Mg PO TID Quetiapine Fumarate 25 Mg Tablet 12.5 Mg PO PRN Q6HRS PRN Quetiapine Fumarate 25 Mg Tablet 25 Mg PO QHS Sertraline Hcl 50 Mg Tablet 50 Mg PO DAILY Hydrocodone-Apap 7.5-325 (Hydrocodone Bit/Acetaminophen) 1 Each Tablet 1 Tab PO PRN Q8HRS PRN Fentanyl 0.05 Mg/Ml Vial (Fentanyl Citrate/Pf) 50 Mcg/1 Ml Vial 50 Mcg IV PRN Q4HRS PRN [Darbepoetin Ty In Polysorbat] 60 MCG/0.3 ML Disp.syrin 60 Mcg SQ WEEKLYHS Zyvox (Linezolid) 600 Mg Tablet 600 Mg PO BID Vitamin D3 (Cholecalciferol (Vitamin D3)) 1,000 Unit Tablet 1 Tab PO DAILY [Calcium Acetate] 667 MG Capsule 1,334 Mg PO TIDWMEALS Mapap (Acetaminophen) 500 Mg Tablet 1,000 Mg PO TID Carvedilol (Carvedilol) 12.5 Mg Tablet 12.5 Mg PO BIDWMEALS Minoxidil 2.5 Mg Tablet 2.5 Mg PO BID Isosorbide Mononitrate Er (Isosorbide Mononitrate) 30 Mg Tab.er.24h 120 Mg PO DAILY Montelukast Sodium Tablet (Montelukast Sodium) 10 Mg Tablet 10 Mg PO QHS Polyethylene Glycol 3350 2,500 Gm Powder 17 Gm PO DAILY Novolog Flexpen (Insulin Aspart) 100 Unit/1 Ml Insuln.pen 0 Units SQ TIDAC Take sub q tid ac: BS 151-200=2 unit, 201-250=3 unit, [id number], BS 301-350=6 unit, BS 351-400 =8 unit. BS>401 call MD Renetta Busch 10,000 Units Capsule (Lipase/Protease/Amylase) 1 Each Capsule. 2 Cap PO TIDWMEALS TAke 2 cap tid with meals Nephro-Donny Tablet (Folic Acid/Vitamin B Comp W-C) 0.8 Mg Tablet 1 Tab PO DAILY Benadryl (Diphenhydramine Hcl) 25 Mg Capsule 25 Mg PO PRN Q6HRS PRN Reported Lactulose 10 Gm Packet 10 Gm PO Q6HRS Lidocaine 15 Gm Cream..g. 1 Karma TP TID PRN 30 Days Isosorbide Mononitrate Er (Isosorbide Mononitrate) 60 Mg Tab.er.24h 1 Tab PO DAILY Vitamin A 2,400 Mcg Capsule 1,250 Mcg PO WEEKLY Hydrocodone-Apap 10-325 (Hydrocodone Bit/Acetaminophen) 1 Tab Tablet 1 Tab PO PRN Q6HRS PRN Ultram (Tramadol Hcl) 50 Mg Tablet 1 Tab PO BID MDD 2 Tablet(s) 30 Days Hydralazine Hcl 50 Mg Tablet 1 Tab PO TID Acetaminophen 325 Mg Tablet 2 Tab PO Q6HRS PRN 30 Days Glucose Gel (Dextrose) 38 Gm Gel..gram. 15 Gm PO PRN Sertraline Hcl 100 Mg Tablet 100 Mg PO DAILY Glucagon Emergency Kit (Glucagon,Human Recombinant) 1 Mg Kit 1 Mg IM PRN Senna Plus Tablet (Sennosides/Docusate Sodium) 1 Each Tablet 2 Tab PO QHS 14 Days Zetia (Ezetimibe) 10 Mg Tablet 1 Tab PO DAILY 30 Days Renvela (Sevelamer Carbonate) 800 Mg Tablet 800 Mg PO TIDWMEALS Escitalopram Oxalate 10 Mg Tablet 1 Tab PO DAILY Lyrica (Pregabalin) 50 Mg Capsule 25 Mg PO QHS [creon] 1 Cap PO TIDAC Oxycodone HCl 5 Mg Tablet 5 Mg PO Q8HRS PRN [zenpep] 10 Mg PO TIDAC Clonidine Hcl 0.2 Mg Tablet 0.2 Mg PO BID Zofran (Ondansetron Hcl) 4 Mg Tablet 1 Tab PO Q4HRS PRN Sensipar (Cinacalcet Hcl) 30 Mg Tablet 1 Tab PO DAILY 30 Days Mirtazapine 15 Mg Tablet 1 Tab PO QHS Atorvastatin Calcium 40 Mg Tablet 80 Mg PO HS Minoxidil 2.5 Mg Tablet 2.5 Mg PO DAILY Amlodipine Besylate 10 Mg Tablet 10 Mg PO DAILY Lidocaine PATCH (Lidocaine) 1 Each Adh..patch 1 Each TP DAILY REMOVE AFTER 12 HOURS Proair Hfa Inhaler (Albuterol Sulfate) 8.5 Gm Hfa.aer.ad 2 Puff INH PRN Q6HRS PRN Nitrostat (Nitroglycerin) 0.4 Mg Tab.subl 0.4 Mg SL PRN Q5MIN PRN Plavix (Clopidogrel Bisulfate) 75 Mg Tablet 1 Tab PO DAILY Zoloft (Sertraline Hcl) 100 Mg Tablet 1 Tab PO DAILY Pantoprazole Sodium (Pantoprazole Sodium) 40 Mg Tablet. 1 Tab PO DAILY Losartan Potassium 100 Mg Tablet 100 Mg PO DAILY Aspir 81 (Aspirin) 81 Mg Tablet. 81 Mg PO DAILY Vitals/I & O Vital Sign - Last 24 Hours 01/28/21 01/28/21 01/28/21 01/28/21 09:00 09:14 09:15 14:14 Temp 97.6 97.6 Pulse 85 85 85 69 Resp 18 B/P (MAP) 161/62 (95) Pulse Ox 96 O2 Delivery Room Air 01/28/21 01/28/21 01/28/21 01/28/21 16:07 16:08 16:09 19:53 Temp 97.8 97.8 Pulse 80 80 75 73 Resp 19 B/P (MAP) 99/42 (61) Pulse Ox 99 O2 Delivery Room Air 01/28/21 01/28/21 01/28/21 01/28/21 20:00 20:33 20:33 22:28 Temp 98.3 98.3 Pulse 73 73 77 Resp 18 B/P (MAP) 99/42 99/42 142/62 (88) Pulse Ox 99 O2 Delivery Room Air Room Air 01/29/21 01/29/21 01/29/21 01/29/21 02:36 08:29 08:30 08:31 Temp 98.1 98.1 Pulse 76 96 94 94 Resp 19 B/P (MAP) 149/67 (94) 158/65 158/65 158/65 Pulse Ox 99 O2 Delivery Room Air 01/29/21 08:31 Pulse 94 B/P (MAP) 158/65 Intake and Output 01/28/21 01/28/21 01/29/21 15:00 23:00 07:00 Intake Total 60 ml 0 ml Balance 60 ml 0 ml Justicifation of Admission Dx: Justifications for Admission: Justification of Admission Dx: N/A MARINA REYNOSO MD Jan 29, 2021 08:39
[2021-01-29 08:55] LABS: BASO # 0.1 x10^3/uL (0.0-0.2); BASO % 0 % (0-3); EOS % 0 % (0-3); HEMATOCRIT 32.2 % (36.0-47.0); HEMOGLOBIN 10.3 g/dL (12.0-15.5); LYMPH # 0.5 x10^3/uL (1.0-4.8); LYMPH % 3 % (24-48); MEAN CORPUSCULAR HEMOGLOBIN 30 pg (25-35); MEAN CORPUSCULAR HGB CONC 32 g/dL (31-37); MEAN CORPUSCULAR VOLUME 94 fL (79-100); MONO # 1.1 x10^3/uL (0.0-1.1); MONO % 7 % (0-9); NEUT # 14.3 x10^3/uL (1.8-7.7); NEUT % 90 % (31-73); PLATELET COUNT 221 x10^3/uL (140-400); RED BLOOD COUNT 3.44 x10^6/uL (3.50-5.40); RED CELL DISTRIBUTION WIDTH 15.4 % (11.5-14.5)
[2021-01-29 09:12] LABS: ALBUMIN 2.7 g/dL (3.4-5.0); ALBUMIN/GLOBULIN RATIO 0.7 (1.0-1.7); CALCIUM 9.6 mg/dL (8.5-10.1); CREATININE 4.7 mg/dL (0.6-1.0); GFR 11.6; POTASSIUM 4.4 mmol/L (3.5-5.1); TOTAL BILIRUBIN 0.8 mg/dL (0.2-1.0); TOTAL PROTEIN 6.7 g/dL (6.4-8.2)
--- NOTE | 2021-01-29 09:16 | PDOC ---
IM PROGRESS NOTES- Subjective Subjective Patient is not eating. She is not cooperative. No c/o abdominal pain. She refuses to take medications,eat.Stays naked. As per daughter she stays naked at home and feels that patient is thinking that she is at home. Objective Vitals/I&O Vital Signs Date Time Temp Pulse Resp B/P (MAP) Pulse Ox O2 Delivery O2 Flow Rate FiO2 01/29/21 08:31 94 158/65 01/29/21 07:00 97.6 16 98 Room Air 97.6 I & O 01/28/21 01/28/21 01/29/21 15:00 23:00 07:00 Intake Total 60 ml 0 ml Balance 60 ml 0 ml Physical Exam Physical Exam General Appearance - alert and in no distress,weak,malnourished Chest - decreased breath sounds at bases Heart - S1 and S2 normal Abdomen - soft, non tender Neurological - alert ,confused Musculoskeletal - generalized weakness Extremities - no edema Labs Laboratory Tests Test 01/28/21 17:00 01/28/21 17:23 01/28/21 20:24 01/29/21 08:22 White Blood Count 17.3 x10^3/uL (4.0-11.0) H Red Blood Count 3.56 x10^6/uL (3.50-5.40) Hemoglobin 10.7 g/dL (12.0-15.5) L Hematocrit 33.5 % (36.0-47.0) L Mean Corpuscular Volume 94 fL (79-100) Mean Corpuscular Hemoglobin 30 pg (25-35) Mean Corpuscular Hemoglobin Concent 32 g/dL (31-37) Red Cell Distribution Width 15.4 % (11.5-14.5) H Platelet Count 199 x10^3/uL (140-400) Neutrophils (%) (Auto) 89 % (31-73) H Lymphocytes (%) (Auto) 2 % (24-48) L Monocytes (%) (Auto) 9 % (0-9) Eosinophils (%) (Auto) 0 % (0-3) Basophils (%) (Auto) 0 % (0-3) Neutrophils # (Auto) 15.4 x10^3/uL (1.8-7.7) H Lymphocytes # (Auto) 0.4 x10^3/uL (1.0-4.8) L Monocytes # (Auto) 1.5 x10^3/uL (0.0-1.1) H Eosinophils # (Auto) 0.0 x10^3/uL (0.0-0.7) Basophils # (Auto) 0.0 x10^3/uL (0.0-0.2) Segmented Neutrophils % 86 % (35-66) H Band Neutrophils % 7 % (0-9) Lymphocytes % 4 % (24-48) L Monocytes % 2 % (0-10) Metamyelocytes % 1 % (0-0) H Platelet Estimate Adequate (ADEQUATE) Sodium Level 141 mmol/L (136-145) Potassium Level 4.6 mmol/L (3.5-5.1) Chloride Level 102 mmol/L (98-107) Carbon Dioxide Level 26 mmol/L (21-32) Anion Gap 13 (6-14) Blood Urea Nitrogen 18 mg/dL (7-20) Creatinine 3.4 mg/dL (0.6-1.0) H Estimated GFR (Cockcroft-Gault) 16.8 BUN/Creatinine Ratio 5 (6-20) L Glucose Level 120 mg/dL (70-99) H Calcium Level 9.1 mg/dL (8.5-10.1) Total Bilirubin 0.8 mg/dL (0.2-1.0) Aspartate Amino Transferase (AST) 118 U/L (15-37) H Alanine Aminotransferase (ALT) 160 U/L (14-59) H Alkaline Phosphatase 116 U/L (46-116) Ammonia < 10 mcmol/L (11-34) L Total Protein 5.9 g/dL (6.4-8.2) L Albumin 2.6 g/dL (3.4-5.0) L Albumin/Globulin Ratio 0.8 (1.0-1.7) L Glucose (Fingerstick) 124 mg/dL (70-99) H 132 mg/dL (70-99) H 101 mg/dL (70-99) H Test 01/29/21 08:45 White Blood Count 16.0 x10^3/uL (4.0-11.0) H Red Blood Count 3.44 x10^6/uL (3.50-5.40) L Hemoglobin 10.3 g/dL (12.0-15.5) L Hematocrit 32.2 % (36.0-47.0) L Mean Corpuscular Volume 94 fL (79-100) Mean Corpuscular Hemoglobin 30 pg (25-35) Mean Corpuscular Hemoglobin Concent 32 g/dL (31-37) Red Cell Distribution Width 15.4 % (11.5-14.5) H Platelet Count 221 x10^3/uL (140-400) Neutrophils (%) (Auto) 90 % (31-73) H Lymphocytes (%) (Auto) 3 % (24-48) L Monocytes (%) (Auto) 7 % (0-9) Eosinophils (%) (Auto) 0 % (0-3) Basophils (%) (Auto) 0 % (0-3) Neutrophils # (Auto) 14.3 x10^3/uL (1.8-7.7) H Lymphocytes # (Auto) 0.5 x10^3/uL (1.0-4.8) L Monocytes # (Auto) 1.1 x10^3/uL (0.0-1.1) Eosinophils # (Auto) 0.0 x10^3/uL (0.0-0.7) Basophils # (Auto) 0.1 x10^3/uL (0.0-0.2) Laboratory Tests 01/28/21 17:00 01/29/21 08:45 Laboratory Tests 01/28/21 17:00 Meds Current Medications Medications (Trade) Dose Ordered Sig/Srinath Route PRN Reason Start Time Stop Time Status Last Admin Dose Admin Lansoprazole (Prevacid) 30 mg DAILY PO 01/29/21 09:00 01/29/21 08:30 Assessment Assessment 1. Acute metabolic encephalopathy. Continue to give her lorazepam as needed. Monitor closely in the Intensive Care Unit. Consult Dr. Martinez for neurology evaluation and management. Likely due to hypertensive crisis.Mental status is improving. 2. Acute hypertensive crisis. Patient was initially treated with Cardene IV drip. Consult Dr. Leahy for cardiology evaluation and management. 3. Elevated troponin. This may be due to demand ischemia and also end-stage renal disease may be contributing. 4. End-stage renal disease, on hemodialysis. 5. Coronary artery disease. 6. Diastolic congestive heart failure. 7. Physical deconditioning. 8. Asthma. 9. Gastroesophageal reflux disease. 10. Hyperlipidemia. 11. Severe pulmonary hypertension. 12. 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 13. History of depression. 14. 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 Monitor blood sugar. 15. History of secondary hyperparathyroidism. 16. Marijuana abuse Plan: End-stage renal disease on hemodialysis - consult Dr. Hernandez for management of end-stage renal disease and hemodialysis. Condition treatment discussed with the patient's brother at bedside in the Emergency Room. Prognosis of this patient is extremely poor due to her multiple medical problems. As patient remained stable patient was admitted to CVC unit. Acute hypertensive crisis- patient is off Cardene drip. Labs reviewed. As needed IV hydralazine. Blood pressure is better controlled with Catapres-TTS- 3. COVID-19 infection. SARS-CoV-2 PCR test is positive. This may be also contributing to patient's poor appetite, body aches and confusion.I will also consult Dr. Ray Nino for Infectious Disease evaluation and management because of her fever of 103 degrees Fahrenheit. Her chest x-ray, urinalysis as well as SARS-CoV-2 antigen test is negative. Consult Dr. Nino for infectious disease evaluation and management. Patient is running low-grade fever. WBC count is 17.3. On IV Vancomycin,Cefepime. Bl c/s 06/09 Gram + cocci- ? contaminant. CT abd/pelvis 01/28/21 1. Small right pleural effusion and right greater than left posterior dependent and basilar atelectasis and possible superimposed pleural parenchymal scarring. There is no consolidated pneumonia. 2. Soft tissue stranding and small amount of soft tissue gas within the right axilla and base of the right neck. Correlate for recent instrumentation or catheterization. 3. Moderate colonic stool. 4. Mild bladder wall thickening. This may be due to underdistention or cystitis. Correlate with urinalysis. 5. Trace nonspecific pelvic free fluid and mild body wall edema. 6. Renal atrophy. US rt UE- negative for DVT. Acute metabolic encephalopathy-most likely due to COVID-19 infection and may be multifactorial.Slightly better. Severe malnutrition-patient is not eating but also does not allow any IV fluids or IV access. I have encouraged her to drink Nepro. Rt arm swollen. Change IV to PICC line. Started on PPN yesterday. D/w staff. place PICC line today and start PPN. Prognosis of this patient is extremely poor due to her multiple medical problems. D/w daughter Kerri -about patient's condition,treatment,options,prognosis today., Plan Plan For more details regarding further plans, please refer to the orders. Justifications for Admission Other Justification GAURAV DANG MD Jan 29, 2021 09:16
--- NOTE | 2021-01-29 10:02 | PDOC ---
Infectious Disease Note Subjective: Subjective Patient little more alert today Remains on room air Remains confused Afebrile d/w RN Vital Signs: Vital Signs Vital Signs Date Time Temp Pulse Resp B/P (MAP) Pulse Ox O2 Delivery O2 Flow Rate FiO2 01/29/21 08:31 94 158/65 01/29/21 07:00 97.6 16 98 Room Air 97.6 Physical Exam: PHYSICAL EXAM GEN: Patient is restless, remains confused, appears comfortable on room air HEENT: Normocephalic atraumatic, NECK supple no meningismus LUNGS: Decreased breath sound at the bases , no accessory muscle use HEART: S1, S2 regular. ABDOMEN: Soft, nontender, no organomegaly. Spine: No joint tenderness, Chest wall and axilla no crepitus, or warmth no pereira EXTREMITIES: Right upper extremity mild edema present no cyanosis. Fistula site clean SKIN: Unremarkable. NEUROLOGIC: Little more alert, though remains confused moves all 4 extremities Pscyh calm Medications: Inpatient Meds: Medications reviewed. Labs: Lab Laboratory Tests Test 01/28/21 17:00 01/28/21 17:23 01/28/21 20:24 01/29/21 08:22 White Blood Count 17.3 x10^3/uL (4.0-11.0) Red Blood Count 3.56 x10^6/uL (3.50-5.40) Hemoglobin 10.7 g/dL (12.0-15.5) Hematocrit 33.5 % (36.0-47.0) Mean Corpuscular Volume 94 fL (79-100) Mean Corpuscular Hemoglobin 30 pg (25-35) Mean Corpuscular Hemoglobin Concent 32 g/dL (31-37) Red Cell Distribution Width 15.4 % (11.5-14.5) Platelet Count 199 x10^3/uL (140-400) Neutrophils (%) (Auto) 89 % (31-73) Lymphocytes (%) (Auto) 2 % (24-48) Monocytes (%) (Auto) 9 % (0-9) Eosinophils (%) (Auto) 0 % (0-3) Basophils (%) (Auto) 0 % (0-3) Neutrophils # (Auto) 15.4 x10^3/uL (1.8-7.7) Lymphocytes # (Auto) 0.4 x10^3/uL (1.0-4.8) Monocytes # (Auto) 1.5 x10^3/uL (0.0-1.1) Eosinophils # (Auto) 0.0 x10^3/uL (0.0-0.7) Basophils # (Auto) 0.0 x10^3/uL (0.0-0.2) Segmented Neutrophils % 86 % (35-66) Band Neutrophils % 7 % (0-9) Lymphocytes % 4 % (24-48) Monocytes % 2 % (0-10) Metamyelocytes % 1 % (0-0) Platelet Estimate Adequate (ADEQUATE) Sodium Level 141 mmol/L (136-145) Potassium Level 4.6 mmol/L (3.5-5.1) Chloride Level 102 mmol/L (98-107) Carbon Dioxide Level 26 mmol/L (21-32) Anion Gap 13 (6-14) Blood Urea Nitrogen 18 mg/dL (7-20) Creatinine 3.4 mg/dL (0.6-1.0) Estimated GFR (Cockcroft-Gault) 16.8 BUN/Creatinine Ratio 5 (6-20) Glucose Level 120 mg/dL (70-99) Calcium Level 9.1 mg/dL (8.5-10.1) Total Bilirubin 0.8 mg/dL (0.2-1.0) Aspartate Amino Transf (AST/SGOT) 118 U/L (15-37) Alanine Aminotransferase (ALT/SGPT) 160 U/L (14-59) Alkaline Phosphatase 116 U/L (46-116) Ammonia < 10 mcmol/L (11-34) Total Protein 5.9 g/dL (6.4-8.2) Albumin 2.6 g/dL (3.4-5.0) Albumin/Globulin Ratio 0.8 (1.0-1.7) Glucose (Fingerstick) 124 mg/dL (70-99) 132 mg/dL (70-99) 101 mg/dL (70-99) Test 01/29/21 08:45 White Blood Count 16.0 x10^3/uL (4.0-11.0) Red Blood Count 3.44 x10^6/uL (3.50-5.40) Hemoglobin 10.3 g/dL (12.0-15.5) Hematocrit 32.2 % (36.0-47.0) Mean Corpuscular Volume 94 fL (79-100) Mean Corpuscular Hemoglobin 30 pg (25-35) Mean Corpuscular Hemoglobin Concent 32 g/dL (31-37) Red Cell Distribution Width 15.4 % (11.5-14.5) Platelet Count 221 x10^3/uL (140-400) Neutrophils (%) (Auto) 90 % (31-73) Lymphocytes (%) (Auto) 3 % (24-48) Monocytes (%) (Auto) 7 % (0-9) Eosinophils (%) (Auto) 0 % (0-3) Basophils (%) (Auto) 0 % (0-3) Neutrophils # (Auto) 14.3 x10^3/uL (1.8-7.7) Lymphocytes # (Auto) 0.5 x10^3/uL (1.0-4.8) Monocytes # (Auto) 1.1 x10^3/uL (0.0-1.1) Eosinophils # (Auto) 0.0 x10^3/uL (0.0-0.7) Basophils # (Auto) 0.1 x10^3/uL (0.0-0.2) Sodium Level 140 mmol/L (136-145) Potassium Level 4.4 mmol/L (3.5-5.1) Chloride Level 101 mmol/L (98-107) Carbon Dioxide Level 29 mmol/L (21-32) Anion Gap 10 (6-14) Blood Urea Nitrogen 30 mg/dL (7-20) Creatinine 4.7 mg/dL (0.6-1.0) Estimated GFR (Cockcroft-Gault) 11.6 BUN/Creatinine Ratio 6 (6-20) Glucose Level 109 mg/dL (70-99) Calcium Level 9.6 mg/dL (8.5-10.1) Total Bilirubin 0.8 mg/dL (0.2-1.0) Aspartate Amino Transf (AST/SGOT) 89 U/L (15-37) Alanine Aminotransferase (ALT/SGPT) 141 U/L (14-59) Alkaline Phosphatase 118 U/L (46-116) Total Protein 6.7 g/dL (6.4-8.2) Albumin 2.7 g/dL (3.4-5.0) Albumin/Globulin Ratio 0.7 (1.0-1.7) Random Vancomycin Level 17.9 mcg/mL Micro CT C/A/P IMPRESSION: 1. Small right pleural effusion and right greater than left posterior dependent and basilar atelectasis and possible superimposed pleural parenchymal scarring. There is no consolidated pneumonia. 2. Soft tissue stranding and small amount of soft tissue gas within the right axilla and base of the right neck. Correlate for recent instrumentation or catheterization. 3. Moderate colonic stool. 4. Mild bladder wall thickening. This may be due to underdistention or cystitis. Correlate with urinalysis. 5. Trace nonspecific pelvic free fluid and mild body wall edema. 6. Renal atrophy. Objective: Assessment: 1. COVID-19 positive. 2. Encephalopathy , not improving, appears multifactorial ,hypertensive and covid 3. End-stage renal disease, on hemodialysis through left upper extremity fistula. 4. Coronary artery disease. 5. Hypertension. 6. Coronary artery disease. 7. h/o Cerebrovascular accident in the past. 8.Gastroparesis, nausea and vomiting resolved 9. Leucocytosis afebrile this admission, UA neg on admission,on RA, could be reactive, KUB shows nonspecific changes 10. Bacteremia 1 out of 3 bottles possibly contaminant Plan: Plan of Care Changed zosyn to cefepime due to poor iv access yesterday cefepime postdialysis dose cont iv vanc postdialysis dose ultrasound of right upper extremity neg for dvt ct c/a/p with abn 'small right pleural effusion and right greater than left posterior dependent and basilar atelectasis and possible superimposed pleural parenchymal scarring. There is no consolidated pneumonia. 2. Soft tissue stranding and small amount of soft tissue gas within the right axilla and base of the right neck. Correlate for recent instrumentation or catheterization." Trend WBC Cont supportive care monitor labs and cultures Maintain aspiration precautions Prognosis very poor consider palliative care RN is requesting PICC line, please check with nephrology as patient has end- stage renal disease May be a midline would be okHERMANN Emanuel MD Jan 29, 2021 10:01
--- NOTE | 2021-01-29 10:06 | PDOC ---
Date of Service: DATE: 01/29/21 TIME: 10:02 Objective: Objective: D/w nurse - took meds, not sure if she has eaten anything, was sitting slouched over in bed. Vital Signs: Vital Signs Date Time Temp Pulse Resp B/P (MAP) Pulse Ox O2 Delivery O2 Flow Rate FiO2 01/29/21 08:31 94 158/65 01/29/21 07:00 97.6 16 98 Room Air 97.6 Labs: Laboratory Tests Test 01/28/21 17:00 01/28/21 17:23 01/28/21 20:24 01/29/21 08:22 White Blood Count 17.3 x10^3/uL Red Blood Count 3.56 x10^6/uL Hemoglobin 10.7 g/dL Hematocrit 33.5 % Mean Corpuscular Volume 94 fL Mean Corpuscular Hemoglobin 30 pg Mean Corpuscular Hemoglobin Concent 32 g/dL Red Cell Distribution Width 15.4 % Platelet Count 199 x10^3/uL Neutrophils (%) (Auto) 89 % Lymphocytes (%) (Auto) 2 % Monocytes (%) (Auto) 9 % Eosinophils (%) (Auto) 0 % Basophils (%) (Auto) 0 % Neutrophils # (Auto) 15.4 x10^3/uL Lymphocytes # (Auto) 0.4 x10^3/uL Monocytes # (Auto) 1.5 x10^3/uL Eosinophils # (Auto) 0.0 x10^3/uL Basophils # (Auto) 0.0 x10^3/uL Segmented Neutrophils % 86 % Band Neutrophils % 7 % Lymphocytes % 4 % Monocytes % 2 % Metamyelocytes % 1 % Platelet Estimate Adequate Sodium Level 141 mmol/L Potassium Level 4.6 mmol/L Chloride Level 102 mmol/L Carbon Dioxide Level 26 mmol/L Anion Gap 13 Blood Urea Nitrogen 18 mg/dL Creatinine 3.4 mg/dL Estimated GFR (Cockcroft-Gault) 16.8 BUN/Creatinine Ratio 5 Glucose Level 120 mg/dL Calcium Level 9.1 mg/dL Total Bilirubin 0.8 mg/dL Aspartate Amino Transf (AST/SGOT) 118 U/L Alanine Aminotransferase (ALT/SGPT) 160 U/L Alkaline Phosphatase 116 U/L Ammonia < 10 mcmol/L Total Protein 5.9 g/dL Albumin 2.6 g/dL Albumin/Globulin Ratio 0.8 Glucose (Fingerstick) 124 mg/dL 132 mg/dL 101 mg/dL Test 01/29/21 08:45 White Blood Count 16.0 x10^3/uL Red Blood Count 3.44 x10^6/uL Hemoglobin 10.3 g/dL Hematocrit 32.2 % Mean Corpuscular Volume 94 fL Mean Corpuscular Hemoglobin 30 pg Mean Corpuscular Hemoglobin Concent 32 g/dL Red Cell Distribution Width 15.4 % Platelet Count 221 x10^3/uL Neutrophils (%) (Auto) 90 % Lymphocytes (%) (Auto) 3 % Monocytes (%) (Auto) 7 % Eosinophils (%) (Auto) 0 % Basophils (%) (Auto) 0 % Neutrophils # (Auto) 14.3 x10^3/uL Lymphocytes # (Auto) 0.5 x10^3/uL Monocytes # (Auto) 1.1 x10^3/uL Eosinophils # (Auto) 0.0 x10^3/uL Basophils # (Auto) 0.1 x10^3/uL Sodium Level 140 mmol/L Potassium Level 4.4 mmol/L Chloride Level 101 mmol/L Carbon Dioxide Level 29 mmol/L Anion Gap 10 Blood Urea Nitrogen 30 mg/dL Creatinine 4.7 mg/dL Estimated GFR (Cockcroft-Gault) 11.6 BUN/Creatinine Ratio 6 Glucose Level 109 mg/dL Calcium Level 9.6 mg/dL Total Bilirubin 0.8 mg/dL Aspartate Amino Transf (AST/SGOT) 89 U/L Alanine Aminotransferase (ALT/SGPT) 141 U/L Alkaline Phosphatase 118 U/L Total Protein 6.7 g/dL Albumin 2.7 g/dL Albumin/Globulin Ratio 0.7 Random Vancomycin Level 17.9 mcg/mL BLOOD CULTURE Preliminary NO GROWTH AFTER 1 DAY Imaging: C/A/P CT IMPRESSION: 1. Small right pleural effusion and right greater than left posterior dependent and basilar atelectasis and possible superimposed pleural parenchymal scarring. There is no consolidated pneumonia. 2. Soft tissue stranding and small amount of soft tissue gas within the right axilla and base of the right neck. Correlate for recent instrumentation or catheterization. 3. Moderate colonic stool. 4. Mild bladder wall thickening. This may be due to underdistention or cystitis. Correlate with urinalysis. 5. Trace nonspecific pelvic free fluid and mild body wall edema. 6. Renal atrophy. Upper Extrem US IMPRESSION: No Doppler evidence of upper extremity venous thrombosis, with evaluation slightly limited due to patient motion and soft tissue edema described above. PE: GEN: in COVID isolation - exam deferred A/P: COVID, encephalopathy Chronic anemia, abnormal LFTs (fluctuating) Chronic abd pain, GERD, gastroparesis -- Mental status remains problematic. Encourage PO. Justicifation of Admission Dx: Justifications for Admission: Justification of Admission Dx: N/A ALL GONZALEZ Jan 29, 2021 10:06
--- NOTE | 2021-01-29 11:16 | PDOC ---
Renal-Progress Notes Subjective Notes Notes CONFUSED History of Present Illness Hx of present illness STABLE Vitals Vitals Vital Signs Date Time Temp Pulse Resp B/P (MAP) Pulse Ox O2 Delivery O2 Flow Rate FiO2 01/29/21 08:31 94 158/65 01/29/21 07:00 97.6 16 98 Room Air 97.6 Weight Weight [ ] I.O. Intake and Output Intake and Output 01/29/21 07:00 Intake Total 60 ml Balance 60 ml Intake Oral 60 ml Labs Labs Laboratory Tests Test 01/28/21 17:00 01/28/21 17:23 01/28/21 20:24 01/29/21 08:22 White Blood Count 17.3 x10^3/uL (4.0-11.0) Red Blood Count 3.56 x10^6/uL (3.50-5.40) Hemoglobin 10.7 g/dL (12.0-15.5) Hematocrit 33.5 % (36.0-47.0) Mean Corpuscular Volume 94 fL (79-100) Mean Corpuscular Hemoglobin 30 pg (25-35) Mean Corpuscular Hemoglobin Concent 32 g/dL (31-37) Red Cell Distribution Width 15.4 % (11.5-14.5) Platelet Count 199 x10^3/uL (140-400) Neutrophils (%) (Auto) 89 % (31-73) Lymphocytes (%) (Auto) 2 % (24-48) Monocytes (%) (Auto) 9 % (0-9) Eosinophils (%) (Auto) 0 % (0-3) Basophils (%) (Auto) 0 % (0-3) Neutrophils # (Auto) 15.4 x10^3/uL (1.8-7.7) Lymphocytes # (Auto) 0.4 x10^3/uL (1.0-4.8) Monocytes # (Auto) 1.5 x10^3/uL (0.0-1.1) Eosinophils # (Auto) 0.0 x10^3/uL (0.0-0.7) Basophils # (Auto) 0.0 x10^3/uL (0.0-0.2) Segmented Neutrophils % 86 % (35-66) Band Neutrophils % 7 % (0-9) Lymphocytes % 4 % (24-48) Monocytes % 2 % (0-10) Metamyelocytes % 1 % (0-0) Platelet Estimate Adequate (ADEQUATE) Sodium Level 141 mmol/L (136-145) Potassium Level 4.6 mmol/L (3.5-5.1) Chloride Level 102 mmol/L (98-107) Carbon Dioxide Level 26 mmol/L (21-32) Anion Gap 13 (6-14) Blood Urea Nitrogen 18 mg/dL (7-20) Creatinine 3.4 mg/dL (0.6-1.0) Estimated GFR (Cockcroft-Gault) 16.8 BUN/Creatinine Ratio 5 (6-20) Glucose Level 120 mg/dL (70-99) Calcium Level 9.1 mg/dL (8.5-10.1) Total Bilirubin 0.8 mg/dL (0.2-1.0) Aspartate Amino Transf (AST/SGOT) 118 U/L (15-37) Alanine Aminotransferase (ALT/SGPT) 160 U/L (14-59) Alkaline Phosphatase 116 U/L (46-116) Ammonia < 10 mcmol/L (11-34) Total Protein 5.9 g/dL (6.4-8.2) Albumin 2.6 g/dL (3.4-5.0) Albumin/Globulin Ratio 0.8 (1.0-1.7) Glucose (Fingerstick) 124 mg/dL (70-99) 132 mg/dL (70-99) 101 mg/dL (70-99) Test 01/29/21 08:45 White Blood Count 16.0 x10^3/uL (4.0-11.0) Red Blood Count 3.44 x10^6/uL (3.50-5.40) Hemoglobin 10.3 g/dL (12.0-15.5) Hematocrit 32.2 % (36.0-47.0) Mean Corpuscular Volume 94 fL (79-100) Mean Corpuscular Hemoglobin 30 pg (25-35) Mean Corpuscular Hemoglobin Concent 32 g/dL (31-37) Red Cell Distribution Width 15.4 % (11.5-14.5) Platelet Count 221 x10^3/uL (140-400) Neutrophils (%) (Auto) 90 % (31-73) Lymphocytes (%) (Auto) 3 % (24-48) Monocytes (%) (Auto) 7 % (0-9) Eosinophils (%) (Auto) 0 % (0-3) Basophils (%) (Auto) 0 % (0-3) Neutrophils # (Auto) 14.3 x10^3/uL (1.8-7.7) Lymphocytes # (Auto) 0.5 x10^3/uL (1.0-4.8) Monocytes # (Auto) 1.1 x10^3/uL (0.0-1.1) Eosinophils # (Auto) 0.0 x10^3/uL (0.0-0.7) Basophils # (Auto) 0.1 x10^3/uL (0.0-0.2) Sodium Level 140 mmol/L (136-145) Potassium Level 4.4 mmol/L (3.5-5.1) Chloride Level 101 mmol/L (98-107) Carbon Dioxide Level 29 mmol/L (21-32) Anion Gap 10 (6-14) Blood Urea Nitrogen 30 mg/dL (7-20) Creatinine 4.7 mg/dL (0.6-1.0) Estimated GFR (Cockcroft-Gault) 11.6 BUN/Creatinine Ratio 6 (6-20) Glucose Level 109 mg/dL (70-99) Calcium Level 9.6 mg/dL (8.5-10.1) Total Bilirubin 0.8 mg/dL (0.2-1.0) Aspartate Amino Transf (AST/SGOT) 89 U/L (15-37) Alanine Aminotransferase (ALT/SGPT) 141 U/L (14-59) Alkaline Phosphatase 118 U/L (46-116) Total Protein 6.7 g/dL (6.4-8.2) Albumin 2.7 g/dL (3.4-5.0) Albumin/Globulin Ratio 0.7 (1.0-1.7) Random Vancomycin Level 17.9 mcg/mL Micro Micro Microbiology 01/27/21 Blood Culture - Final, Complete Review of Systems Constitutional: yes: other (CONFUSED) Physical Exam General Appearance: mild distress Skin: warm Respiratory: bilateral CTA, decreased breath sounds Heart: S1S2 Abdomen: soft, bowel sounds present Genitourinary: bladder flat Extremities: pulses present Neurology: confused Musculoskeletal: Osteoarthritis Assessment Assessment IMP COVID 19 POS [id number] ARM BC AVF HTN [id number] ENCEPHALOPATHY DUE TO ABOVE LEUCOCYTOSIS-NEW ANEMIA FLUID OVERLOAD-RESOLVED ACUTE ON CHRONIC DIASTOLIC CHF FEVER CAD WITH CABG BACTEREMIA PLAN EDGAR ON HOLD CONT HOME MEDS RENAL DIET ENC COMPLIANCE ID EVAL AND TX HD TOMORROW ANTIBIOTICS CATAPRESS TTS PATCH TING REYNA MD Jan 29, 2021 11:16
[2021-01-29] MEDS: VANCOMYCIN PER PHARMACY MC PRN (12:40)
--- NOTE | 2021-01-29 13:57 | NUR ---
SS following up with discharge planning. SS reviewed pt chart and discussed with pt RN. Pt is currently on room air. COVID19 positive. Pt on IV Cefepime and IV Vancomycin, Wednesday, , and Saturdays. Pt has outpatient hemodialysis at [facility], ; fax [phone]. PT/OT recommended prison unit. Pt participation in therapy inconsistent and pt declined PT/OT today. Pt declined for SNU by [facility] and [facility]il[facility] VELAZQUEZ due to dialysis and compliance. Referral was sent to [place]. SS left voicemail for [facility] requesting return call regarding referral. Pt has [facility] insurance. SS will continue to follow for discharge planning.
[2021-01-29 15:00] VITALS: BP 170/68
[2021-01-29 19:00] VITALS: BP 165/67
[2021-01-29] MEDS: ATORVASTATIN CALCIUM 40 MG TABLET. PO SCH (20:28)
[2021-01-29] MEDS: LACTOBACILLUS RHAMNOSUS GG 1 CAPSULE. PO SCH (20:28)
[2021-01-29 22:42] VITALS: BP 140/60
[2021-01-30 02:35] VITALS: BP 119/69
[2021-01-30 05:37] LABS: ALBUMIN 2.4 g/dL (3.4-5.0); ALBUMIN/GLOBULIN RATIO 0.9 (1.0-1.7); CALCIUM 9.1 mg/dL (8.5-10.1); CREATININE 5.6 mg/dL (0.6-1.0); GFR 9.4; POTASSIUM 4.5 mmol/L (3.5-5.1); TOTAL BILIRUBIN 0.5 mg/dL (0.2-1.0); TOTAL PROTEIN 5.2 g/dL (6.4-8.2)
[2021-01-30 07:00] VITALS: BP 137/77
[2021-01-30] MEDS: INSULIN LISPRO 300 UNITS/3 ML VIAL. SQ SCH ×3 (08:00→17:00)
[2021-01-30] MEDS: ISOSORBIDE MONONITRATE ER 30 MG TAB.ER.24H PO SCH (09:00)
[2021-01-30] MEDS: MINOXIDIL 2.5 MG TABLET PO SCH ×2 (09:00→22:51)
--- NOTE | 2021-01-30 09:13 | PDOC ---
IM PROGRESS NOTES- Subjective Subjective Patient is not eating. She is not cooperative. No c/o abdominal pain. She refuses to take medications,eat.Stays naked. As per daughter she stays naked at home and feels that patient is thinking that she is at home. Objective Vitals/I&O Vital Signs Date Time Temp Pulse Resp B/P (MAP) Pulse Ox O2 Delivery O2 Flow Rate FiO2 01/30/21 07:00 97.4 61 18 137/77 (97) 99 Room Air 97.4 I & O 01/29/21 01/29/21 01/30/21 15:00 23:00 07:00 Intake Total 0 ml 50 ml 0 ml Balance 0 ml 50 ml 0 ml Physical Exam Physical Exam General Appearance - alert and in no distress Chest - decreased breath sounds at bases Heart - S1 and S2 normal Abdomen - soft, non tender Neurological - alert and confused Musculoskeletal - generalized weakness Extremities - no edema Labs Laboratory Tests Test 01/29/21 12:24 01/29/21 17:26 01/29/21 20:27 01/30/21 03:55 Glucose (Fingerstick) 100 mg/dL (70-99) H 80 mg/dL (70-99) 100 mg/dL (70-99) H Sodium Level 141 mmol/L (136-145) Potassium Level 4.5 mmol/L (3.5-5.1) Chloride Level 104 mmol/L (98-107) Carbon Dioxide Level 25 mmol/L (21-32) Anion Gap 12 (6-14) Blood Urea Nitrogen 39 mg/dL (7-20) H Creatinine 5.6 mg/dL (0.6-1.0) H Estimated GFR (Cockcroft-Gault) 9.4 BUN/Creatinine Ratio 7 (6-20) Glucose Level 107 mg/dL (70-99) H Calcium Level 9.1 mg/dL (8.5-10.1) Total Bilirubin 0.5 mg/dL (0.2-1.0) Aspartate Amino Transferase (AST) 52 U/L (15-37) H Alanine Aminotransferase (ALT) 99 U/L (14-59) H Alkaline Phosphatase 100 U/L (46-116) Total Protein 5.2 g/dL (6.4-8.2) L Albumin 2.4 g/dL (3.4-5.0) L Albumin/Globulin Ratio 0.9 (1.0-1.7) L Test 01/30/21 07:34 Glucose (Fingerstick) 127 mg/dL (70-99) H Laboratory Tests 01/30/21 03:55 Meds Current Medications Medications (Trade) Dose Ordered Sig/Srinath Route PRN Reason Start Time Stop Time Status Last Admin Dose Admin Lactobacillus Rhamnosus (Culturelle) 1 cap BID PO 01/29/21 21:00 01/29/21 20:28 Assessment Assessment 1. Acute metabolic encephalopathy. Continue to give her lorazepam as needed. Monitor closely in the Intensive Care Unit. Consult Dr. Martinez for neurology evaluation and management. Likely due to hypertensive crisis.Mental status is improving. 2. Acute hypertensive crisis. Patient was initially treated with Cardene IV drip. Consult Dr. Leahy for cardiology evaluation and management. 3. Elevated troponin. This may be due to demand ischemia and also end-stage renal disease may be contributing. 4. End-stage renal disease, on hemodialysis. 5. Coronary artery disease. 6. Diastolic congestive heart failure. 7. Physical deconditioning. 8. Asthma. 9. Gastroesophageal reflux disease. 10. Hyperlipidemia. 11. Severe pulmonary hypertension. 12. 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 13. History of depression. 14. 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 Monitor blood sugar. 15. History of secondary hyperparathyroidism. 16. Marijuana abuse Plan: End-stage renal disease on hemodialysis - consult Dr. Hernandez for management of end -stage renal disease and hemodialysis. Condition treatment discussed with the patient's brother at bedside in the Emergency Room. Prognosis of this patient is extremely poor due to her multiple medical problems. As patient remained stable patient was admitted to CVC unit. Acute hypertensive crisis- patient is off Cardene drip. Labs reviewed. As needed IV hydralazine. Blood pressure is better controlled with Vuunnpls-SIP-1. COVID-19 infection. SARS-CoV-2 PCR test is positive. This may be also contributing to patient's poor appetite, body aches and confusion.I will also consult Dr. Ray Nino for Infectious Disease evaluation and management because of her fever of 103 degrees Fahrenheit. Her chest x-ray, urinalysis as well as SARS-CoV-2 antigen test is negative. Consult Dr. Nino for infectious disease evaluation and management. Patient is running low-grade fever. WBC count is 17.3. On IV Vancomycin,Cefepime. Bl c/s 1/ Gram + cocci- ? contaminant. CT abd/pelvis 01/28/21 1. Small right pleural effusion and right greater than left posterior dependent and basilar atelectasis and possible superimposed pleural parenchymal scarring. There is no consolidated pneumonia. 2. Soft tissue stranding and small amount of soft tissue gas within the right axilla and base of the right neck. Correlate for recent instrumentation or catheterization. 3. Moderate colonic stool. 4. Mild bladder wall thickening. This may be due to underdistention or cystitis. Correlate with urinalysis. 5. Trace nonspecific pelvic free fluid and mild body wall edema. 6. Renal atrophy. US rt UE- negative for DVT. Acute metabolic encephalopathy-most likely due to COVID-19 infection and may be multifactorial.Slightly better. Increase Seroquel to 25 mg p.o. twice daily and 25 mg at bedtime. Severe malnutrition-patient is not eating but also does not allow any IV fluids or IV access. I have encouraged her to drink Nepro. Rt arm swollen. Change IV to PICC line. Started on PPN yesterday. D/w staff. place midline and restarted PPN. Patient has constipation and has stool on CT of the abdomen. Has abdominal pain also. Order Dulcolax suppository. Discussed with Dr. Hernandez. Prognosis of this patient is extremely poor due to her multiple medical problems. D/w daughter Kerri -about patient's condition,treatment,options,prognosis on 01/29/21., Plan Plan For more details regarding further plans, please refer to the orders. Justifications for Admission Other Justification GAURAV DANG MD Jan 30, 2021 09:13
[2021-01-30] MEDS: METOCLOPRAMIDE ORAL SOLN 10 MG/10 ML SOLUTION. PO SCH ×4 (09:33→22:55)
[2021-01-30] MEDS: cloNIDine TTS-3 1 PATCH PATCH.TDWK TD SCH (09:33)
[2021-01-30] MEDS: CARVEDILOL 12.5 MG TABLET. PO SCH ×2 (09:34→18:34)
[2021-01-30] MEDS: LANSOPRAZOLE 30 MG TAB.RAP.DR PO SCH (09:34)
[2021-01-30] MEDS: LACTOBACILLUS RHAMNOSUS GG 1 CAPSULE. PO SCH ×2 (09:34→22:52)
[2021-01-30] MEDS: QUEtiapine 25 MG TABLET. PO SCH ×3 (09:34→22:52)
[2021-01-30] MEDS: ASPIRIN ENTERIC COATED 81 MG TABLET.DR. PO SCH (09:34)
[2021-01-30] MEDS: CLOPIDOGREL BISULFATE 75 MG TABLET PO SCH (09:35)
[2021-01-30] MEDS: EZETIMIBE 10 MG TABLET. PO SCH (09:35)
[2021-01-30 10:12] VITALS: BP 134/45
[2021-01-30] MEDS ORDERED: BISACODYL 10 MG SUPP.RECT. PR ONE (10:15)
--- NOTE | 2021-01-30 10:24 | PDOC ---
Infectious Disease Note Subjective: Subjective Patient more alert today, less confused Complains of stomach pain Afebrile On room air P.o. intake remains poor d/w RN Vital Signs: Vital Signs Vital Signs Date Time Temp Pulse Resp B/P (MAP) Pulse Ox O2 Delivery O2 Flow Rate FiO2 01/30/21 10:12 97.6 66 18 134/45 (74) 100 Room Air 97.6 Physical Exam: PHYSICAL EXAM GEN: Patient alert awake appears comfortable on room air HEENT: Normocephalic atraumatic, NECK supple no meningismus LUNGS: Decreased breath sound at the bases , no accessory muscle use HEART: S1, S2 regular. ABDOMEN: Soft, nontender, bowel sounds present Spine: No spine tenderness, Chest wall and axilla no crepitus, or warmth no periera EXTREMITIES: Right upper extremity mild edema present no cyanosis. Fistula site clean SKIN: Unremarkable. NEUROLOGIC: More alert, moves all 4 extremities Pscyh calm Midline clean Medications: Inpatient Meds: Medications reviewed. Labs: Lab Laboratory Tests Test 01/29/21 12:24 01/29/21 17:26 01/29/21 20:27 01/30/21 03:55 Glucose (Fingerstick) 100 mg/dL (70-99) 80 mg/dL (70-99) 100 mg/dL (70-99) Sodium Level 141 mmol/L (136-145) Potassium Level 4.5 mmol/L (3.5-5.1) Chloride Level 104 mmol/L (98-107) Carbon Dioxide Level 25 mmol/L (21-32) Anion Gap 12 (6-14) Blood Urea Nitrogen 39 mg/dL (7-20) Creatinine 5.6 mg/dL (0.6-1.0) Estimated GFR (Cockcroft-Gault) 9.4 BUN/Creatinine Ratio 7 (6-20) Glucose Level 107 mg/dL (70-99) Calcium Level 9.1 mg/dL (8.5-10.1) Total Bilirubin 0.5 mg/dL (0.2-1.0) Aspartate Amino Transf (AST/SGOT) 52 U/L (15-37) Alanine Aminotransferase (ALT/SGPT) 99 U/L (14-59) Alkaline Phosphatase 100 U/L (46-116) Total Protein 5.2 g/dL (6.4-8.2) Albumin 2.4 g/dL (3.4-5.0) Albumin/Globulin Ratio 0.9 (1.0-1.7) Test 01/30/21 07:34 Glucose (Fingerstick) 127 mg/dL (70-99) Micro CT C/A/P IMPRESSION: 1. Small right pleural effusion and right greater than left posterior dependent and basilar atelectasis and possible superimposed pleural parenchymal scarring. There is no consolidated pneumonia. 2. Soft tissue stranding and small amount of soft tissue gas within the right axilla and base of the right neck. Correlate for recent instrumentation or catheterization. 3. Moderate colonic stool. 4. Mild bladder wall thickening. This may be due to underdistention or cystitis. Correlate with urinalysis. 5. Trace nonspecific pelvic free fluid and mild body wall edema. 6. Renal atrophy. Objective: Assessment: 1. COVID-19 positive. 2. Encephalopathy , not improving, appears multifactorial ,hypertensive and covid 3. End-stage renal disease, on hemodialysis through left upper extremity fistula. 4. Coronary artery disease. 5. Hypertension. 6. Coronary artery disease. 7. h/o Cerebrovascular accident in the past. 8.Gastroparesis, nausea and vomiting resolved 9. Leucocytosis afebrile this admission, UA neg on admission,on RA, could be reactive, KUB shows nonspecific changes 10. Bacteremia 1 out of 3 bottles possibly contaminant Plan: Plan of Care Change cefepime to Zosyn renal dosing cont iv vanc postdialysis dose ultrasound of right upper extremity neg for dvt ct c/a/p with abn but pt has no overlying skin or soft tissue changes in the area..., no pain GI team following Trend WBC Cont supportive care monitor labs and cultures Maintain aspiration precautions Prognosis poor Discussed with nursing staff HERMANN BA MD Jan 30, 2021 10:24
[2021-01-30 10:33] LABS: BASO % 0 % (0-3); EOS % 0 % (0-3); HEMATOCRIT 29.9 % (36.0-47.0); HEMOGLOBIN 9.7 g/dL (12.0-15.5); LYMPH # 0.8 x10^3/uL (1.0-4.8); LYMPH % 6 % (24-48); MEAN CORPUSCULAR HEMOGLOBIN 31 pg (25-35); MEAN CORPUSCULAR HGB CONC 32 g/dL (31-37); MEAN CORPUSCULAR VOLUME 96 fL (79-100); MONO # 0.9 x10^3/uL (0.0-1.1); MONO % 7 % (0-9); NEUT # 11.6 x10^3/uL (1.8-7.7); NEUT % 87 % (31-73); PLATELET COUNT 197 x10^3/uL (140-400); RED CELL DISTRIBUTION WIDTH 15.5 % (11.5-14.5); WHITE BLOOD COUNT 13.4 x10^3/uL (4.0-11.0)
--- NOTE | 2021-01-30 10:59 | PDOC ---
PROGRESS NOTES Date of Service DATE: 01/30/21 TIME: 10:57 Assessment Problems Medical Problems: (1) Altered mental status Status: Acute (2) ESRD (end stage renal disease) on dialysis Status: Acute (3) Hypertensive urgency Status: Acute Encephalopathy, hypertensive, also role of COVID 19 encephalopathy. She takes out her IVs and refuses to eat, has some bizarre behavior at home including sitting around naked COVID 19 History of strokes including chronic right basal ganglia and bilateral thalamic lacunar infarcts on the CT. CT also shows white matter disease consistent with hypertension and diabetes, I doubt that she also has demyelinating disease. She is on statin, aspirin, clopidogrel Elevated troponin, renal failure, anemia, coronary artery disease, diastolic congestive heart failure, fever. 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, deconditioning, status-post coronary artery bypass grafting, peripheral artery disease Heartburn, nausea, vomiting, better Low back pain without evidence of acute radiculopathy or myelopathy Plan Treat medical issues I see that she is on TPN Holding on additional neurological studies Lorazepam and Seroquel Subjective She says she is hungry and now wants to eat, does have some breakfast at bedside Objective Vital Signs Date Time Temp Pulse Resp B/P (MAP) Pulse Ox O2 Delivery O2 Flow Rate FiO2 01/30/21 10:12 97.6 66 18 134/45 (74) 100 Room Air 97.6 Intake and Output 01/30/21 07:00 Intake Total 50 ml Balance 50 ml Intake Oral 50 ml # Voids 1 PHYSICAL EXAM Alert, knows location, month, year, not the name of the president PERRL. GRAF. CN: no focal findings. Muscle tone: normal. Muscle strength: 4/5, weaker on the left DTR: 0-1+ Plantar reflex: flexor Gait: not examined in bed. Sensory exam: Stocking loss. No cerebellar signs elicited. Review of Relevant I have reviewed the following items richard (where applicable) has been applied. Labs Laboratory Tests Test 01/28/21 17:00 01/28/21 17:23 01/28/21 20:24 01/29/21 08:22 White Blood Count 17.3 x10^3/uL (4.0-11.0) Red Blood Count 3.56 x10^6/uL (3.50-5.40) Hemoglobin 10.7 g/dL (12.0-15.5) Hematocrit 33.5 % (36.0-47.0) Mean Corpuscular Volume 94 fL (79-100) Mean Corpuscular Hemoglobin 30 pg (25-35) Mean Corpuscular Hemoglobin Concent 32 g/dL (31-37) Red Cell Distribution Width 15.4 % (11.5-14.5) Platelet Count 199 x10^3/uL (140-400) Neutrophils (%) (Auto) 89 % (31-73) Lymphocytes (%) (Auto) 2 % (24-48) Monocytes (%) (Auto) 9 % (0-9) Eosinophils (%) (Auto) 0 % (0-3) Basophils (%) (Auto) 0 % (0-3) Neutrophils # (Auto) 15.4 x10^3/uL (1.8-7.7) Lymphocytes # (Auto) 0.4 x10^3/uL (1.0-4.8) Monocytes # (Auto) 1.5 x10^3/uL (0.0-1.1) Eosinophils # (Auto) 0.0 x10^3/uL (0.0-0.7) Basophils # (Auto) 0.0 x10^3/uL (0.0-0.2) Segmented Neutrophils % 86 % (35-66) Band Neutrophils % 7 % (0-9) Lymphocytes % 4 % (24-48) Monocytes % 2 % (0-10) Metamyelocytes % 1 % (0-0) Platelet Estimate Adequate (ADEQUATE) Sodium Level 141 mmol/L (136-145) Potassium Level 4.6 mmol/L (3.5-5.1) Chloride Level 102 mmol/L (98-107) Carbon Dioxide Level 26 mmol/L (21-32) Anion Gap 13 (6-14) Blood Urea Nitrogen 18 mg/dL (7-20) Creatinine 3.4 mg/dL (0.6-1.0) Estimated GFR (Cockcroft-Gault) 16.8 BUN/Creatinine Ratio 5 (6-20) Glucose Level 120 mg/dL (70-99) Calcium Level 9.1 mg/dL (8.5-10.1) Total Bilirubin 0.8 mg/dL (0.2-1.0) Aspartate Amino Transf (AST/SGOT) 118 U/L (15-37) Alanine Aminotransferase (ALT/SGPT) 160 U/L (14-59) Alkaline Phosphatase 116 U/L (46-116) Ammonia < 10 mcmol/L (11-34) Total Protein 5.9 g/dL (6.4-8.2) Albumin 2.6 g/dL (3.4-5.0) Albumin/Globulin Ratio 0.8 (1.0-1.7) Glucose (Fingerstick) 124 mg/dL (70-99) 132 mg/dL (70-99) 101 mg/dL (70-99) Test 01/29/21 08:45 01/29/21 12:24 01/29/21 17:26 01/29/21 20:27 White Blood Count 16.0 x10^3/uL (4.0-11.0) Red Blood Count 3.44 x10^6/uL (3.50-5.40) Hemoglobin 10.3 g/dL (12.0-15.5) Hematocrit 32.2 % (36.0-47.0) Mean Corpuscular Volume 94 fL (79-100) Mean Corpuscular Hemoglobin 30 pg (25-35) Mean Corpuscular Hemoglobin Concent 32 g/dL (31-37) Red Cell Distribution Width 15.4 % (11.5-14.5) Platelet Count 221 x10^3/uL (140-400) Neutrophils (%) (Auto) 90 % (31-73) Lymphocytes (%) (Auto) 3 % (24-48) Monocytes (%) (Auto) 7 % (0-9) Eosinophils (%) (Auto) 0 % (0-3) Basophils (%) (Auto) 0 % (0-3) Neutrophils # (Auto) 14.3 x10^3/uL (1.8-7.7) Lymphocytes # (Auto) 0.5 x10^3/uL (1.0-4.8) Monocytes # (Auto) 1.1 x10^3/uL (0.0-1.1) Eosinophils # (Auto) 0.0 x10^3/uL (0.0-0.7) Basophils # (Auto) 0.1 x10^3/uL (0.0-0.2) Sodium Level 140 mmol/L (136-145) Potassium Level 4.4 mmol/L (3.5-5.1) Chloride Level 101 mmol/L (98-107) Carbon Dioxide Level 29 mmol/L (21-32) Anion Gap 10 (6-14) Blood Urea Nitrogen 30 mg/dL (7-20) Creatinine 4.7 mg/dL (0.6-1.0) Estimated GFR (Cockcroft-Gault) 11.6 BUN/Creatinine Ratio 6 (6-20) Glucose Level 109 mg/dL (70-99) Calcium Level 9.6 mg/dL (8.5-10.1) Total Bilirubin 0.8 mg/dL (0.2-1.0) Aspartate Amino Transf (AST/SGOT) 89 U/L (15-37) Alanine Aminotransferase (ALT/SGPT) 141 U/L (14-59) Alkaline Phosphatase 118 U/L (46-116) Total Protein 6.7 g/dL (6.4-8.2) Albumin 2.7 g/dL (3.4-5.0) Albumin/Globulin Ratio 0.7 (1.0-1.7) Random Vancomycin Level 17.9 mcg/mL Glucose (Fingerstick) 100 mg/dL (70-99) 80 mg/dL (70-99) 100 mg/dL (70-99) Test 01/30/21 03:55 01/30/21 07:34 White Blood Count 13.4 x10^3/uL (4.0-11.0) Red Blood Count 3.10 x10^6/uL (3.50-5.40) Hemoglobin 9.7 g/dL (12.0-15.5) Hematocrit 29.9 % (36.0-47.0) Mean Corpuscular Volume 96 fL (79-100) Mean Corpuscular Hemoglobin 31 pg (25-35) Mean Corpuscular Hemoglobin Concent 32 g/dL (31-37) Red Cell Distribution Width 15.5 % (11.5-14.5) Platelet Count 197 x10^3/uL (140-400) Neutrophils (%) (Auto) 87 % (31-73) Lymphocytes (%) (Auto) 6 % (24-48) Monocytes (%) (Auto) 7 % (0-9) Eosinophils (%) (Auto) 0 % (0-3) Basophils (%) (Auto) 0 % (0-3) Neutrophils # (Auto) 11.6 x10^3/uL (1.8-7.7) Lymphocytes # (Auto) 0.8 x10^3/uL (1.0-4.8) Monocytes # (Auto) 0.9 x10^3/uL (0.0-1.1) Eosinophils # (Auto) 0.0 x10^3/uL (0.0-0.7) Basophils # (Auto) 0.0 x10^3/uL (0.0-0.2) Sodium Level 141 mmol/L (136-145) Potassium Level 4.5 mmol/L (3.5-5.1) Chloride Level 104 mmol/L (98-107) Carbon Dioxide Level 25 mmol/L (21-32) Anion Gap 12 (6-14) Blood Urea Nitrogen 39 mg/dL (7-20) Creatinine 5.6 mg/dL (0.6-1.0) Estimated GFR (Cockcroft-Gault) 9.4 BUN/Creatinine Ratio 7 (6-20) Glucose Level 107 mg/dL (70-99) Calcium Level 9.1 mg/dL (8.5-10.1) Total Bilirubin 0.5 mg/dL (0.2-1.0) Aspartate Amino Transf (AST/SGOT) 52 U/L (15-37) Alanine Aminotransferase (ALT/SGPT) 99 U/L (14-59) Alkaline Phosphatase 100 U/L (46-116) Total Protein 5.2 g/dL (6.4-8.2) Albumin 2.4 g/dL (3.4-5.0) Albumin/Globulin Ratio 0.9 (1.0-1.7) Glucose (Fingerstick) 127 mg/dL (70-99) Laboratory Tests Test 01/29/21 12:24 01/29/21 17:26 01/29/21 20:27 01/30/21 03:55 Glucose (Fingerstick) 100 mg/dL (70-99) 80 mg/dL (70-99) 100 mg/dL (70-99) White Blood Count 13.4 x10^3/uL (4.0-11.0) Red Blood Count 3.10 x10^6/uL (3.50-5.40) Hemoglobin 9.7 g/dL (12.0-15.5) Hematocrit 29.9 % (36.0-47.0) Mean Corpuscular Volume 96 fL (79-100) Mean Corpuscular Hemoglobin 31 pg (25-35) Mean Corpuscular Hemoglobin Concent 32 g/dL (31-37) Red Cell Distribution Width 15.5 % (11.5-14.5) Platelet Count 197 x10^3/uL (140-400) Neutrophils (%) (Auto) 87 % (31-73) Lymphocytes (%) (Auto) 6 % (24-48) Monocytes (%) (Auto) 7 % (0-9) Eosinophils (%) (Auto) 0 % (0-3) Basophils (%) (Auto) 0 % (0-3) Neutrophils # (Auto) 11.6 x10^3/uL (1.8-7.7) Lymphocytes # (Auto) 0.8 x10^3/uL (1.0-4.8) Monocytes # (Auto) 0.9 x10^3/uL (0.0-1.1) Eosinophils # (Auto) 0.0 x10^3/uL (0.0-0.7) Basophils # (Auto) 0.0 x10^3/uL (0.0-0.2) Sodium Level 141 mmol/L (136-145) Potassium Level 4.5 mmol/L (3.5-5.1) Chloride Level 104 mmol/L (98-107) Carbon Dioxide Level 25 mmol/L (21-32) Anion Gap 12 (6-14) Blood Urea Nitrogen 39 mg/dL (7-20) Creatinine 5.6 mg/dL (0.6-1.0) Estimated GFR (Cockcroft-Gault) 9.4 BUN/Creatinine Ratio 7 (6-20) Glucose Level 107 mg/dL (70-99) Calcium Level 9.1 mg/dL (8.5-10.1) Total Bilirubin 0.5 mg/dL (0.2-1.0) Aspartate Amino Transf (AST/SGOT) 52 U/L (15-37) Alanine Aminotransferase (ALT/SGPT) 99 U/L (14-59) Alkaline Phosphatase 100 U/L (46-116) Total Protein 5.2 g/dL (6.4-8.2) Albumin 2.4 g/dL (3.4-5.0) Albumin/Globulin Ratio 0.9 (1.0-1.7) Test 01/30/21 07:34 Glucose (Fingerstick) 127 mg/dL (70-99) Microbiology 01/27/21 Blood Culture - Final, Complete Medications Current Medications Fentanyl Citrate (Fentanyl 2ml Vial) 75 mcg 1X ONCE IVP Last administered on 01/16/21at 08:31; Start 01/16/21 at 08:00; Stop 01/16/21 at 08:05; Status DC Ziprasidone (Geodon Im) 20 mg 1X ONCE IM Last administered on 01/16/21at 08:08; Start 01/16/21 at 08:00; Stop 01/16/21 at 08:05; Status DC Lorazepam (Ativan Inj) 2 mg 1X ONCE IVP Last administered on 01/16/21at 08:45; Start 01/16/21 at 08:45; Stop 01/16/21 at 08:46; Status DC Hydralazine HCl (Apresoline Inj) 20 mg 1X ONCE IVP Last administered on 01/16/21at 09:04; Start 01/16/21 at 09:00; Stop 01/16/21 at 09:02; Status DC Lorazepam (Ativan Inj) 2 mg 1X ONCE IVP Last administered on 01/16/21at 09:40; Start 01/16/21 at 09:30; Stop 01/16/21 at 09:31; Status DC Labetalol HCl (Normodyne Iv Push) 10 mg 1X ONCE IVP Last administered on 01/16/21at 12:03; Start 01/16/21 at 11:00; Stop 01/16/21 at 11:01; Status DC Aspirin (Aspirin Rectal Supp) 300 mg 1X ONCE ID Last administered on 01/16/21at 12:05; Start 01/16/21 at 11:15; Stop 01/16/21 at 11:16; Status DC Ondansetron HCl (Zofran) 4 mg PRN Q8HRS PRN IVP NAUSEA/VOMITING; Start 01/16/21 at 11:30; Stop 01/17/21 at 11:29; Status DC Insulin Human Lispro (HumaLOG) 0-5 UNITS TIDWMEALS SQ ; Start 01/16/21 at 12:00 Dextrose (Dextrose 50%-Water Syringe) 12.5 gm PRN Q15MIN PRN IV SEE COMMENTS; Start 01/16/21 at 11:30 Lorazepam (Ativan Inj) 1 mg PRN Q4HRS PRN IVP ANXIETY / AGITATION Last administered on 01/18/21at 04:18; Start 01/16/21 at 12:45 Hydralazine HCl (Apresoline Inj) 20 mg PRN Q4HRS PRN IVP ELEVATED BP, SEE COMMENTS Last administered on 01/16/21at 13:30; Start 01/16/21 at 13:00 Nicardipine HCl 50 mg/Sodium Chloride 250 ml @ 25 mls/hr CONT PRN IV SEE I/O RECORD Last administered on 01/17/21at 04:25; Start 01/16/21 at 14:00; Stop 01/17/21 at 16:08; Status DC Aspirin (Ecotrin) 81 mg DAILY PO Last administered on 01/30/21 09:34; Start 01/17/21 at 13:00 Atorvastatin Calcium (Lipitor) 80 mg HS PO Last administered on 01/29/21at 20:28; Start 01/17/21 at 21:00 Carvedilol (Coreg) 12.5 mg BIDWMEALS PO Last administered on 01/30/21at 09:34; Start 01/17/21 at 17:00 Clonidine HCl (Catapres) 0.2 mg BID PO Last administered on 01/23/21at 09:26; Start 01/17/21 at 21:00; Stop 01/23/21 at 10:30; Status DC Clopidogrel Bisulfate (Plavix) 75 mg DAILY PO Last administered on 01/30/21at 09:35; Start 01/17/21 at 13:00 EZETIMIBE (Zetia) 10 mg DAILY PO Last administered on 01/30/21at 09:35; Start 01/17/21 at 13:00 Hydralazine HCl (Apresoline) 50 mg TID PO Last administered on 01/30/21at 09:34; Start 01/17/21 at 14:00 Isosorbide Mononitrate (Imdur) 120 mg DAILY PO Last administered on 01/29/21at 16:28; Start 01/17/21 at 13:00 Minoxidil (Loniten) 2.5 mg BID PO Last administered on 01/29/21at 20:29; Start 01/17/21 at 21:00 Acetaminophen (Tylenol) 650 mg PRN Q6HRS PRN PO MILD PAIN / TEMP > 100.3'F Last administered on 01/28/21at 16:08; Start 01/17/21 at 20:45 Acetaminophen/ Hydrocodone Bitart (Lortab 7.5/325) 1 tab PRN Q6HRS PRN PO MODERATE PAIN Last administered on 01/24/21at 10:57; Start 01/17/21 at 20:45 Sodium Chloride 1,000 ml @ 1,000 mls/hr Q1H PRN IV hypotension; Start 01/18/21 at 11:30; Stop 01/18/21 at 17:29; Status DC Albumin Human 200 ml @ 200 mls/hr 1X PRN PRN IV Hypotension; Start 01/18/21 at 11:30; Stop 01/18/21 at 17:29; Status DC Sodium Chloride 1,000 ml @ 400 mls/hr Q2H30M PRN IV PATENCY; Start 01/18/21 at 11:30; Stop 01/18/21 at 23:29; Status DC Info (PHARMACY MONITORING -- do not chart) 1 each PRN DAILY PRN MC SEE COMMENTS; Start 01/18/21 at 11:30; Status UNV Info (PHARMACY MONITORING -- do not chart) 1 each PRN DAILY PRN MC SEE COMMENTS; Start 01/18/21 at 11:30; Status Cancel Fentanyl Citrate (Fentanyl 2ml Vial) 25 mcg PRN Q3HRS PRN IV PAIN Last administered on 01/21/21at 16:15; Start 01/18/21 at 14:00 Ondansetron HCl (Zofran Odt) 4 mg PRN Q6HRS PRN PO NAUSEA/VOMITING Last administered on 01/21/21at 06:04; Start 01/19/21 at 09:30 Oxycodone HCl (Roxicodone) 10 mg PRN Q4HRS PRN PO SEVERE PAIN Last administered on 01/24/21at 02:35; Start 01/19/21 at 17:30 Simethicone (Gas-X) 80 mg PRN TID PRN PO GAS / BLOATING Last administered on 01/21/21at 06:04; Start 01/19/21 at 21:15 Lorazepam (Ativan) 0.5 mg PRN Q6HRS PRN PO ANXIETY / AGITATION Last administered on 01/23/21at 22:06; Start 01/19/21 at 21:15 Pantoprazole Sodium (Protonix) 40 mg DAILYAC PO Last administered on 01/22/21at 09:37; Start 01/21/21 at 10:00; Stop 01/22/21 at 11:38; Status DC Sodium Chloride 1,000 ml @ 1,000 mls/hr Q1H PRN IV hypotension; Start 01/21/21 at 12:45; Stop 01/21/21 at 18:44; Status DC Albumin Human 200 ml @ 200 mls/hr 1X PRN PRN IV Hypotension; Start 01/21/21 at 12:45; Stop 01/21/21 at 18:44; Status DC Acetaminophen (Tylenol) 500 mg 1X PRN PRN PO MILD PAIN / TEMP > 100.3'F; Start 01/21/21 at 12:45; Stop 01/22/21 at 12:44; Status DC Diphenhydramine HCl (Benadryl) 25 mg 1X PRN PRN IV ITCHING; Start 01/21/21 at 12:45; Stop 01/22/21 at 12:44; Status DC Diphenhydramine HCl (Benadryl) 25 mg 1X PRN PRN IV ITCHING; Start 01/21/21 at 12:45; Stop 01/22/21 at 12:44; Status DC Sodium Chloride 1,000 ml @ 400 mls/hr Q2H30M PRN IV PATENCY; Start 01/21/21 at 12:45; Stop 01/22/21 at 00:44; Status DC Lidocaine HCl (Xylocaine-Mpf 1% 2ml Vial) 2 ml 1X PRN PRN INJ FOR DIALYSIS; Start 01/21/21 at 12:45; Stop 01/22/21 at 12:44; Status DC Info (PHARMACY MONITORING -- do not chart) 1 each PRN DAILY PRN MC SEE COMMENTS; Start 01/21/21 at 12:45; Status UNV Info (PHARMACY MONITORING -- do not chart) 1 each PRN DAILY PRN MC SEE COMMENTS; Start 01/21/21 at 12:45; Status Cancel Bisacodyl (Dulcolax Supp) 10 mg PRN DAILY PRN ID CONSTIPATION; Start 01/21/21 at 19:30 Senna/Docusate Sodium (Senna Plus) 2 tab PRN BID PRN PO CONSTIPATION Last administered on 01/28/21at 20:32; Start 01/21/21 at 19:30 Calcium Carbonate/ Glycine (Tums) 500 mg PRN AFTMEALHC PRN PO INDIGESTION Last administered on 01/24/21at 10:56; Start 01/22/21 at 03:15 Metoclopramide HCl (Reglan Vial) 5 mg PRN Q6HRS PRN IVP NAUSEA/VOMITING; Start 01/22/21 at 11:45; Stop 01/24/21 at 09:22; Status DC Pantoprazole Sodium (PROTONIX VIAL for IV PUSH) 40 mg DAILYAC IVP ; Start 01/23/21 at 07:30; Stop 01/24/21 at 10:51; Status DC Sodium Chloride 1,000 ml @ 1,000 mls/hr Q1H PRN IV hypotension; Start 01/23/21 at 09:30; Stop 01/23/21 at 15:29; Status DC Albumin Human 200 ml @ 200 mls/hr 1X PRN PRN IV Hypotension; Start 01/23/21 at 09:30; Stop 01/23/21 at 15:29; Status DC Sodium Chloride 1,000 ml @ 400 mls/hr Q2H30M PRN IV PATENCY; Start 01/23/21 at 09:30; Stop 01/23/21 at 21:29; Status DC Lidocaine HCl (Xylocaine-Mpf 1% 2ml Vial) 2 ml 1X PRN PRN INJ FOR DIALYSIS; Start 01/23/21 at 09:30; Stop 01/24/21 at 09:29; Status DC Info (PHARMACY MONITORING -- do not chart) 1 each PRN DAILY PRN MC SEE COMMENTS; Start 01/23/21 at 09:30; Status UNV Info (PHARMACY MONITORING -- do not chart) 1 each PRN DAILY PRN MC SEE COMM ENTS; Start 01/23/21 at 09:30; Stop 01/27/21 at 10:34; Status DC Clonidine HCl (Catapres Tts-3) 1 patch WEEKLY TD Last administered on 01/30/21at 09:33; Start 01/23/21 at 09:00 Quetiapine Fumarate (SEROquel) 12.5 mg [id number] PO Last administered on 01/23/21at 18:14; Start 01/23/21 at 11:00; Stop 01/24/21 at 09:17; Status DC Quetiapine Fumarate (SEROquel) 25 mg QHS PO Last administered on 01/29/21at 20:28; Start 01/24/21 at 21:00 Quetiapine Fumarate (SEROquel) 12.5 mg [id number] PO Last administered on 01/30/21at 09:34; Start 01/24/21 at 09:30; Stop 01/30/21 at 10:08; Status DC Metoclopramide HCl (Reglan Oral Solution) 5 mg TIDACHC PO Last administered on 01/30/21at 09:33; Start 01/24/21 at 09:30 Pantoprazole Sodium (Protonix) 40 mg DAILYAC PO ; Start 01/25/21 at 07:30; Stop 01/28/21 at 10:18; Status DC Sodium Chloride 1,000 ml @ 1,000 mls/hr Q1H PRN IV hypotension; Start 01/25/21 at 14:15; Stop 01/25/21 at 20:14; Status DC Albumin Human 200 ml @ 200 mls/hr 1X PRN PRN IV Hypotension; Start 01/25/21 at 14:15; Stop 01/25/21 at 20:14; Status DC Sodium Chloride 1,000 ml @ 400 mls/hr Q2H30M PRN IV PATENCY; Start 01/25/21 at 14:15; Stop 01/26/21 at 02:14; Status DC Info (PHARMACY MONITORING -- do not chart) 1 each PRN DAILY PRN MC SEE COMMENTS; Start 01/25/21 at 14:15; Status Cancel Info (PHARMACY MONITORING -- do not chart) 1 each PRN DAILY PRN MC SEE COMMENTS; Start 01/25/21 at 14:15; Status Cancel Piperacillin Sod/ Tazobactam Sod 2.25 gm/Sodium Chloride 50 ml @ 100 mls/hr Q8HRS IV Last administered on 01/28/21at 05:59; Start 01/27/21 at 14:00; Stop 01/28/21 at 10:44; Status DC Vancomycin HCl (Vanco Per Pharmacy) 1 each PRN DAILY PRN MC SEE COMMENTS Last administered on 01/29/21at 12:40; Start 01/27/21 at 10:30 Info (PHARMACY MONITORING -- do not chart) 1 each PRN DAILY PRN MC SEE COMMENTS; Start 01/27/21 at 10:30 Vancomycin HCl 1.5 gm/Sodium Chloride 500 ml @ 250 mls/hr 1X ONCE IV Last administered on 01/27/21at 17:47; Start 01/27/21 at 11:00; Stop 01/27/21 at 12:59; Status DC Vancomycin HCl (Vancomycin Random Level) 1 each 1X ONCE MC ; Start 01/29/21 at 05:00; Stop 01/29/21 at 05:01; Status DC Amino Acids/ Electrolytes/ Dextrose 1,000 ml @ 60 mls/hr [id number] IV Last administered on 01/27/21at 20:47; Start 01/27/21 at 18:45 Sodium Chloride 1,000 ml @ 1,000 mls/hr Q1H PRN IV hypotension; Start 01/28/21 at 07:30; Stop 01/28/21 at 13:29; Status DC Albumin Human 200 ml @ 200 mls/hr 1X PRN PRN IV Hypotension; Start 01/28/21 at 07:30; Stop 01/28/21 at 13:29; Status DC Sodium Chloride 1,000 ml @ 400 mls/hr Q2H30M PRN IV PATENCY; Start 01/28/21 at 07:30; Stop 01/28/21 at 19:29; Status DC Info (PHARMACY MONITORING -- do not chart) 1 each PRN DAILY PRN MC SEE COMMENTS; Start 01/28/21 at 07:30; Status UNV Info (PHARMACY MONITORING -- do not chart) 1 each PRN DAILY PRN MC SEE COMMENTS; Start 01/28/21 at 07:30; Status UNV Lansoprazole (Prevacid) 30 mg DAILY PO Last administered on 01/30/21at 09:34; Start 01/29/21 at 09:00 Cefepime HCl (Maxipime) 2 gm TuTh IVP ; Start 01/28/21 at 16:00; Stop 01/30/21 at 10:40; Status DC Cefepime HCl (Maxipime) 3 gm Sa IVP ; Start 02/01/21 at 16:00; Stop 01/30/21 at 10:40; Status DC Vancomycin HCl 500 mg/Sodium Chloride 100 ml @ 100 mls/hr QTUTHSA IV ; Start 01/30/21 at 16:00 Lactobacillus Rhamnosus (Culturelle) 1 cap BID PO Last administered on 01/30/21at 09:34; Start 01/29/21 at 21:00 Quetiapine Fumarate (SEROquel) 25 mg [id number] PO ; Start 01/30/21 at 16:00 Bisacodyl (Dulcolax Supp) 10 mg 1X ONCE ID ; Start 01/30/21 at 10:15; Stop 01/30/21 at 10:16; Status DC Piperacillin Sod/ Tazobactam Sod 2.25 gm/Sodium Chloride 50 ml @ 100 mls/hr Q8HRS IV ; Start 01/30/21 at 14:00 Active Scripts Active Lactulose 20 Gm/30 Ml Solution 20 Gm PO BID 5 Days Culturelle (Lactobacillus Rhamnosus Gg) 1 Each Cap.sprink 1 Cap PO BID Metoclopramide Hcl 5 Mg/1 Ml Vial 5 Mg IV PRN Q6HRS PRN Metoclopramide Hcl 5 Mg/1 Ml Vial 5 Mg IV [id number] Ondansetron Hcl 4 Mg/2 Ml Vial (Ondansetron Hcl/Pf) 4 Mg/2 Ml Vial 4 Mg IV PRN Q6HRS PRN Buspirone Hcl 5 Mg Tablet 5 Mg PO TID Quetiapine Fumarate 25 Mg Tablet 12.5 Mg PO PRN Q6HRS PRN Quetiapine Fumarate 25 Mg Tablet 25 Mg PO QHS Sertraline Hcl 50 Mg Tablet 50 Mg PO DAILY Hydrocodone-Apap 7.5-325 (Hydrocodone Bit/Acetaminophen) 1 Each Tablet 1 Tab PO PRN Q8HRS PRN Fentanyl 0.05 Mg/Ml Vial (Fentanyl Citrate/Pf) 50 Mcg/1 Ml Vial 50 Mcg IV PRN Q4HRS PRN [Darbepoetin Ty In Polysorbat] 60 MCG/0.3 ML Disp.syrin 60 Mcg SQ WEEKLYHS Zyvox (Linezolid) 600 Mg Tablet 600 Mg PO BID Vitamin D3 (Cholecalciferol (Vitamin D3)) 1,000 Unit Tablet 1 Tab PO DAILY [Calcium Acetate] 667 MG Capsule 1,334 Mg PO TIDWMEALS Mapap (Acetaminophen) 500 Mg Tablet 1,000 Mg PO TID Carvedilol (Carvedilol) 12.5 Mg Tablet 12.5 Mg PO BIDWMEALS Minoxidil 2.5 Mg Tablet 2.5 Mg PO BID Isosorbide Mononitrate Er (Isosorbide Mononitrate) 30 Mg Tab.er.24h 120 Mg PO DAILY Montelukast Sodium Tablet (Montelukast Sodium) 10 Mg Tablet 10 Mg PO QHS Polyethylene Glycol 3350 2,500 Gm Powder 17 Gm PO DAILY Novolog Flexpen (Insulin Aspart) 100 Unit/1 Ml Insuln.pen 0 Units SQ TIDAC Take sub q tid ac: BS 151-200=2 unit, 201-250=3 unit, [id number], BS 301-350=6 unit, BS 351-400 =8 unit. BS>401 call MD Renetta Bucsh 10,000 Units Capsule (Lipase/Protease/Amylase) 1 Each Capsule. 2 Cap PO TIDWMEALS TAke 2 cap tid with meals Nephro-Donny Tablet (Folic Acid/Vitamin B Comp W-C) 0.8 Mg Tablet 1 Tab PO DAILY Benadryl (Diphenhydramine Hcl) 25 Mg Capsule 25 Mg PO PRN Q6HRS PRN Reported Lactulose 10 Gm Packet 10 Gm PO Q6HRS Lidocaine 15 Gm Cream..g. 1 Karma TP TID PRN 30 Days Isosorbide Mononitrate Er (Isosorbide Mononitrate) 60 Mg Tab.er.24h 1 Tab PO DAILY Vitamin A 2,400 Mcg Capsule 1,250 Mcg PO WEEKLY Hydrocodone-Apap 10-325 (Hydrocodone Bit/Acetaminophen) 1 Tab Tablet 1 Tab PO PRN Q6HRS PRN Ultram (Tramadol Hcl) 50 Mg Tablet 1 Tab PO BID MDD 2 Tablet(s) 30 Days Hydralazine Hcl 50 Mg Tablet 1 Tab PO TID Acetaminophen 325 Mg Tablet 2 Tab PO Q6HRS PRN 30 Days Glucose Gel (Dextrose) 38 Gm Gel..gram. 15 Gm PO PRN Sertraline Hcl 100 Mg Tablet 100 Mg PO DAILY Glucagon Emergency Kit (Glucagon,Human Recombinant) 1 Mg Kit 1 Mg IM PRN Senna Plus Tablet (Sennosides/Docusate Sodium) 1 Each Tablet 2 Tab PO QHS 14 Days Zetia (Ezetimibe) 10 Mg Tablet 1 Tab PO DAILY 30 Days Renvela (Sevelamer Carbonate) 800 Mg Tablet 800 Mg PO TIDWMEALS Escitalopram Oxalate 10 Mg Tablet 1 Tab PO DAILY Lyrica (Pregabalin) 50 Mg Capsule 25 Mg PO QHS [creon] 1 Cap PO TIDAC Oxycodone HCl 5 Mg Tablet 5 Mg PO Q8HRS PRN [zenpep] 10 Mg PO TIDAC Clonidine Hcl 0.2 Mg Tablet 0.2 Mg PO BID Zofran (Ondansetron Hcl) 4 Mg Tablet 1 Tab PO Q4HRS PRN Sensipar (Cinacalcet Hcl) 30 Mg Tablet 1 Tab PO DAILY 30 Days Mirtazapine 15 Mg Tablet 1 Tab PO QHS Atorvastatin Calcium 40 Mg Tablet 80 Mg PO HS Minoxidil 2.5 Mg Tablet 2.5 Mg PO DAILY Amlodipine Besylate 10 Mg Tablet 10 Mg PO DAILY Lidocaine PATCH (Lidocaine) 1 Each Adh..patch 1 Each TP DAILY REMOVE AFTER 12 HOURS Proair Hfa Inhaler (Albuterol Sulfate) 8.5 Gm Hfa.aer.ad 2 Puff INH PRN Q6HRS PRN Nitrostat (Nitroglycerin) 0.4 Mg Tab.subl 0.4 Mg SL PRN Q5MIN PRN Plavix (Clopidogrel Bisulfate) 75 Mg Tablet 1 Tab PO DAILY Zoloft (Sertraline Hcl) 100 Mg Tablet 1 Tab PO DAILY Pantoprazole Sodium (Pantoprazole Sodium) 40 Mg Tablet. 1 Tab PO DAILY Losartan Potassium 100 Mg Tablet 100 Mg PO DAILY Aspir 81 (Aspirin) 81 Mg Tablet.dr 81 Mg PO DAILY Vitals/I & O Vital Sign - Last 24 Hours 01/29/21 01/29/21 01/29/21 01/29/21 15:00 16:28 16:28 17:56 Temp 98.0 98.0 Pulse 86 86 86 86 Resp 18 B/P (MAP) 170/68 (102) 170/68 170/68 170/68 Pulse Ox 97 O2 Delivery Room Air 01/29/21 01/29/21 01/29/21 01/29/21 19:00 19:31 20:28 20:29 Temp 98.2 98.2 Pulse 93 93 93 Resp 18 B/P (MAP) 165/67 (99) 165/67 165/67 Pulse Ox 98 O2 Delivery Room Air Room Air 01/29/21 01/30/21 01/30/21 01/30/21 22:42 02:35 07:00 08:00 Temp 98.0 98.2 97.4 98.0 98.2 97.4 Pulse 89 76 61 Resp 18 18 18 B/P (MAP) 140/60 (86) 119/69 (86) 137/77 (97) Pulse Ox 97 97 99 O2 Delivery Room Air Room Air Room Air Room Air 01/30/21 01/30/21 01/30/21 09:34 09:34 10:12 Temp 97.6 97.6 Pulse 61 61 66 Resp 18 B/P (MAP) 137/77 137/77 134/45 (74) Pulse Ox 100 O2 Delivery Room Air Intake and Output 01/29/21 01/29/21 01/30/21 15:00 23:00 07:00 Intake Total 0 ml 50 ml 0 ml Balance 0 ml 50 ml 0 ml Justicifation of Admission Dx: Justifications for Admission: Justification of Admission Dx: N/A MARINA REYNOSO MD Jan 30, 2021 10:59
--- NOTE | 2021-01-30 11:01 | PDOC ---
Date of Service: DATE: 01/30/21 TIME: 10:56 Objective: Objective: D/w nurse - won't eat on her own, did take a bite or two w/ nurse and then immediately complained of pain. No vomiting. Ongoing odd behavior. Reviewed chart - given Dulcolax supp. Vital Signs: Vital Signs Date Time Temp Pulse Resp B/P (MAP) Pulse Ox O2 Delivery O2 Flow Rate FiO2 01/30/21 10:12 97.6 66 18 134/45 (74) 100 Room Air 97.6 Labs: Laboratory Tests Test 01/29/21 12:24 01/29/21 17:26 01/29/21 20:27 01/30/21 03:55 Glucose (Fingerstick) 100 mg/dL 80 mg/dL 100 mg/dL White Blood Count 13.4 x10^3/uL Red Blood Count 3.10 x10^6/uL Hemoglobin 9.7 g/dL Hematocrit 29.9 % Mean Corpuscular Volume 96 fL Mean Corpuscular Hemoglobin 31 pg Mean Corpuscular Hemoglobin Concent 32 g/dL Red Cell Distribution Width 15.5 % Platelet Count 197 x10^3/uL Neutrophils (%) (Auto) 87 % Lymphocytes (%) (Auto) 6 % Monocytes (%) (Auto) 7 % Eosinophils (%) (Auto) 0 % Basophils (%) (Auto) 0 % Neutrophils # (Auto) 11.6 x10^3/uL Lymphocytes # (Auto) 0.8 x10^3/uL Monocytes # (Auto) 0.9 x10^3/uL Eosinophils # (Auto) 0.0 x10^3/uL Basophils # (Auto) 0.0 x10^3/uL Sodium Level 141 mmol/L Potassium Level 4.5 mmol/L Chloride Level 104 mmol/L Carbon Dioxide Level 25 mmol/L Anion Gap 12 Blood Urea Nitrogen 39 mg/dL Creatinine 5.6 mg/dL Estimated GFR (Cockcroft-Gault) 9.4 BUN/Creatinine Ratio 7 Glucose Level 107 mg/dL Calcium Level 9.1 mg/dL Total Bilirubin 0.5 mg/dL Aspartate Amino Transf (AST/SGOT) 52 U/L Alanine Aminotransferase (ALT/SGPT) 99 U/L Alkaline Phosphatase 100 U/L Total Protein 5.2 g/dL Albumin 2.4 g/dL Albumin/Globulin Ratio 0.9 Test 01/30/21 07:34 Glucose (Fingerstick) 127 mg/dL BLOOD CULTURE LC Final Final GRAM POSITIVE COCCI FINAL ID= [[id number]] PE: GEN: exam deferred, in COVID isolation A/P: COVID, encephalopathy Chronic anemia - stable Abnormal LFTs - better Chronic abd pain, GERD, gastroparesis, ?constipation -- Will review any additional GI recs w/ Dr. Youngblood. Justicifation of Admission Dx: Justifications for Admission: Justification of Admission Dx: N/A ALL GONZALEZ Jan 30, 2021 11:01
--- NOTE | 2021-01-30 11:09 | NUR ---
SS following up with discharge planning. SS reviewed pt chart and discussed with pt RN. Pt is currently on room air. COVID19 positive on 01/16/2021. PT/OT recommended halfway unit. Pt has outpatient hemodialysis at [facility], ; fax [phone]. Pt declined at [place]. SS discussed with pt's daughter, Maria Esther, . Referrals phoned and faxed to [facility], ; fax [phone], and [facility], ; fax [phone]. SS will continue to follow for discharge planning.
[2021-01-30] MEDS: AA 4.25 %/CALCIUM/LYTES/D5W 1,000 ML IV SCH (11:12)
--- NOTE | 2021-01-30 11:21 | PDOC ---
Renal-Progress Notes Subjective Notes Notes MUCH MORE ALERT History of Present Illness Hx of present illness STABLE Vitals Vitals Vital Signs Date Time Temp Pulse Resp B/P (MAP) Pulse Ox O2 Delivery O2 Flow Rate FiO2 01/30/21 10:12 97.6 66 18 134/45 (74) 100 Room Air 97.6 Weight Weight [ ] I.O. Intake and Output Intake and Output 01/30/21 07:00 Intake Total 50 ml Balance 50 ml Intake Oral 50 ml # Voids 1 Labs Labs Laboratory Tests Test 01/29/21 12:24 01/29/21 17:26 01/29/21 20:27 01/30/21 03:55 Glucose (Fingerstick) 100 mg/dL (70-99) 80 mg/dL (70-99) 100 mg/dL (70-99) White Blood Count 13.4 x10^3/uL (4.0-11.0) Red Blood Count 3.10 x10^6/uL (3.50-5.40) Hemoglobin 9.7 g/dL (12.0-15.5) Hematocrit 29.9 % (36.0-47.0) Mean Corpuscular Volume 96 fL (79-100) Mean Corpuscular Hemoglobin 31 pg (25-35) Mean Corpuscular Hemoglobin Concent 32 g/dL (31-37) Red Cell Distribution Width 15.5 % (11.5-14.5) Platelet Count 197 x10^3/uL (140-400) Neutrophils (%) (Auto) 87 % (31-73) Lymphocytes (%) (Auto) 6 % (24-48) Monocytes (%) (Auto) 7 % (0-9) Eosinophils (%) (Auto) 0 % (0-3) Basophils (%) (Auto) 0 % (0-3) Neutrophils # (Auto) 11.6 x10^3/uL (1.8-7.7) Lymphocytes # (Auto) 0.8 x10^3/uL (1.0-4.8) Monocytes # (Auto) 0.9 x10^3/uL (0.0-1.1) Eosinophils # (Auto) 0.0 x10^3/uL (0.0-0.7) Basophils # (Auto) 0.0 x10^3/uL (0.0-0.2) Sodium Level 141 mmol/L (136-145) Potassium Level 4.5 mmol/L (3.5-5.1) Chloride Level 104 mmol/L (98-107) Carbon Dioxide Level 25 mmol/L (21-32) Anion Gap 12 (6-14) Blood Urea Nitrogen 39 mg/dL (7-20) Creatinine 5.6 mg/dL (0.6-1.0) Estimated GFR (Cockcroft-Gault) 9.4 BUN/Creatinine Ratio 7 (6-20) Glucose Level 107 mg/dL (70-99) Calcium Level 9.1 mg/dL (8.5-10.1) Total Bilirubin 0.5 mg/dL (0.2-1.0) Aspartate Amino Transf (AST/SGOT) 52 U/L (15-37) Alanine Aminotransferase (ALT/SGPT) 99 U/L (14-59) Alkaline Phosphatase 100 U/L (46-116) Total Protein 5.2 g/dL (6.4-8.2) Albumin 2.4 g/dL (3.4-5.0) Albumin/Globulin Ratio 0.9 (1.0-1.7) Test 01/30/21 07:34 01/30/21 11:03 Glucose (Fingerstick) 127 mg/dL (70-99) 128 mg/dL (70-99) Micro Micro Microbiology 01/27/21 Blood Culture - Final, Complete Review of Systems Constitutional: yes: other (CONFUSED) Physical Exam General Appearance: mild distress Skin: warm Respiratory: bilateral CTA, decreased breath sounds Heart: S1S2 Abdomen: soft, bowel sounds present Genitourinary: bladder flat Extremities: pulses present Neurology: confused Musculoskeletal: Osteoarthritis Assessment Assessment IMP COVID 19 POS [id number] ARM BC AVF HTN [id number] ENCEPHALOPATHY DUE TO ABOVE LEUCOCYTOSIS-NEW ANEMIA FLUID OVERLOAD-RESOLVED ACUTE ON CHRONIC DIASTOLIC CHF FEVER CAD WITH CABG BACTEREMIA PLAN EDGAR ON HOLD CONT HOME MEDS RENAL DIET ENC COMPLIANCE ID EVAL AND TX HD TODAY UF TO GTW ANTIBIOTICS CATAPRESS TTS PATCH TING REYNA MD Jan 30, 2021 11:21
[2021-01-30] MEDS ORDERED: IV NORMAL SALINE 1000ML BAG 1,000 ML IV PRN ×2 (13:00)
[2021-01-30] MEDS ORDERED: diphenhydrAMINE 50 MG/ML VIAL IV PRN ×2 (13:00)
[2021-01-30] MEDS ORDERED: ACETAMINOPHEN 500 MG TABLET PO PRN (13:00)
[2021-01-30] MEDS ORDERED: DIALYSIS PATIENT. MC PRN ×2 (13:00)
[2021-01-30] MEDS ORDERED: ALBUMIN HUMAN 25% 200 ML IV PRN (13:00)
[2021-01-30] MEDS ORDERED: LIDOCAINE 1% PF 2 ML VIAL. INJ PRN (13:00)
[2021-01-30] MEDS: PIPERACILLIN/TAZOBACTAM 2.25 GM in IV NORMAL SALINE 50ML 50 ML IV SCH ×2 (14:00→22:56)
[2021-01-30] MEDS: VANCOMYCIN PER PHARMACY MC PRN (15:09)
[2021-01-30] MEDS ORDERED: VANCOMYCIN 500 MG in IV NORMAL SALINE 100ML 100 ML IV SCH (16:00)
[2021-01-30 17:00] VITALS: BP 169/49
[2021-01-30 19:49] VITALS: BP 129/50
[2021-01-30 22:19] VITALS: BP 164/57
[2021-01-30] MEDS: ATORVASTATIN CALCIUM 40 MG TABLET. PO SCH (22:52)
[2021-01-31] VITALS (8 sets, daily range): BP systolic 83–152; BP diastolic 41–67
[2021-01-31] MEDS: PIPERACILLIN/TAZOBACTAM 2.25 GM in IV NORMAL SALINE 50ML 50 ML IV SCH ×3 (05:07→22:00)
[2021-01-31 06:38] LABS: BASO % 0 % (0-3); EOS % 0 % (0-3); HEMATOCRIT 26.6 % (36.0-47.0); HEMOGLOBIN 8.6 g/dL (12.0-15.5); LYMPH # 0.6 x10^3/uL (1.0-4.8); LYMPH % 4 % (24-48); MEAN CORPUSCULAR HEMOGLOBIN 30 pg (25-35); MEAN CORPUSCULAR HGB CONC 33 g/dL (31-37); MEAN CORPUSCULAR VOLUME 93 fL (79-100); MONO # 1.1 x10^3/uL (0.0-1.1); MONO % 8 % (0-9); NEUT # 13.1 x10^3/uL (1.8-7.7); NEUT % 88 % (31-73); PLATELET COUNT 189 x10^3/uL (140-400); RED BLOOD COUNT 2.87 x10^6/uL (3.50-5.40); RED CELL DISTRIBUTION WIDTH 15.4 % (11.5-14.5); WHITE BLOOD COUNT 14.9 x10^3/uL (4.0-11.0)
[2021-01-31 06:55] LABS: ALBUMIN 2.3 g/dL (3.4-5.0); ALBUMIN/GLOBULIN RATIO 0.7 (1.0-1.7); CALCIUM 8.8 mg/dL (8.5-10.1); CREATININE 4.3 mg/dL (0.6-1.0); GFR 12.8; TOTAL BILIRUBIN 0.5 mg/dL (0.2-1.0); TOTAL PROTEIN 5.5 g/dL (6.4-8.2)
[2021-01-31] MEDS: VANCOMYCIN PER PHARMACY MC PRN (07:23)
[2021-01-31] MEDS: METOCLOPRAMIDE ORAL SOLN 10 MG/10 ML SOLUTION. PO SCH ×5 (07:30→20:20)
[2021-01-31] MEDS: INSULIN LISPRO 300 UNITS/3 ML VIAL. SQ SCH ×3 (08:00→16:47)
[2021-01-31] MEDS: CARVEDILOL 12.5 MG TABLET. PO SCH ×3 (08:00→16:47)
[2021-01-31] MEDS: CLOPIDOGREL BISULFATE 75 MG TABLET PO SCH ×2 (08:16→09:00)
[2021-01-31] MEDS: ASPIRIN ENTERIC COATED 81 MG TABLET.DR. PO SCH ×2 (08:16→09:00)
[2021-01-31] MEDS: LACTOBACILLUS RHAMNOSUS GG 1 CAPSULE. PO SCH ×3 (08:16→20:20)
[2021-01-31] MEDS: MINOXIDIL 2.5 MG TABLET PO SCH ×3 (08:16→20:21)
[2021-01-31] MEDS: EZETIMIBE 10 MG TABLET. PO SCH ×2 (08:16→09:00)
[2021-01-31] MEDS: LANSOPRAZOLE 30 MG TAB.RAP.DR PO SCH ×2 (08:16→09:00)
[2021-01-31] MEDS: ISOSORBIDE MONONITRATE ER 30 MG TAB.ER.24H PO SCH ×2 (08:17→09:00)
[2021-01-31] MEDS: QUEtiapine 25 MG TABLET. PO SCH (08:17)
--- NOTE | 2021-01-31 09:35 | PDOC ---
IM PROGRESS NOTES- Subjective Subjective Patient is not eating. She is a poor historian. She denies any abdominal pain. Objective Vitals/I&O Vital Signs Date Time Temp Pulse Resp B/P (MAP) Pulse Ox O2 Delivery O2 Flow Rate FiO2 01/31/21 08:18 71 152/67 01/31/21 07:55 97.4 16 90 Room Air 97.4 I & O 01/30/21 01/30/21 01/31/21 15:00 23:00 07:00 Intake Total 100 ml 100 ml 100 ml Output Total 0 ml Balance 100 ml 100 ml 100 ml Physical Exam Physical Exam General Appearance - alert and in no distress Chest - decreased breath sounds at bases Heart - S1 and S2 normal Abdomen - soft, non tender Neurological - alert and forgetful Musculoskeletal - generalized weakness Extremities - no edema Labs Laboratory Tests Test 01/30/21 11:03 01/30/21 17:49 01/30/21 21:06 01/31/21 06:15 Glucose (Fingerstick) 128 mg/dL (70-99) H 92 mg/dL (70-99) 74 mg/dL (70-99) White Blood Count 14.9 x10^3/uL (4.0-11.0) H Red Blood Count 2.87 x10^6/uL (3.50-5.40) L Hemoglobin 8.6 g/dL (12.0-15.5) L Hematocrit 26.6 % (36.0-47.0) L Mean Corpuscular Volume 93 fL (79-100) Mean Corpuscular Hemoglobin 30 pg (25-35) Mean Corpuscular Hemoglobin Concent 33 g/dL (31-37) Red Cell Distribution Width 15.4 % (11.5-14.5) H Platelet Count 189 x10^3/uL (140-400) Neutrophils (%) (Auto) 88 % (31-73) H Lymphocytes (%) (Auto) 4 % (24-48) L Monocytes (%) (Auto) 8 % (0-9) Eosinophils (%) (Auto) 0 % (0-3) Basophils (%) (Auto) 0 % (0-3) Neutrophils # (Auto) 13.1 x10^3/uL (1.8-7.7) H Lymphocytes # (Auto) 0.6 x10^3/uL (1.0-4.8) L Monocytes # (Auto) 1.1 x10^3/uL (0.0-1.1) Eosinophils # (Auto) 0.0 x10^3/uL (0.0-0.7) Basophils # (Auto) 0.0 x10^3/uL (0.0-0.2) Sodium Level 138 mmol/L (136-145) Potassium Level 4.0 mmol/L (3.5-5.1) Chloride Level 102 mmol/L (98-107) Carbon Dioxide Level 33 mmol/L (21-32) H Anion Gap 3 (6-14) L Blood Urea Nitrogen 22 mg/dL (7-20) H Creatinine 4.3 mg/dL (0.6-1.0) H Estimated GFR (Cockcroft-Gault) 12.8 BUN/Creatinine Ratio 5 (6-20) L Glucose Level 107 mg/dL (70-99) H Calcium Level 8.8 mg/dL (8.5-10.1) Total Bilirubin 0.5 mg/dL (0.2-1.0) Aspartate Amino Transferase (AST) 25 U/L (15-37) Alanine Aminotransferase (ALT) 68 U/L (14-59) H Alkaline Phosphatase 88 U/L (46-116) Total Protein 5.5 g/dL (6.4-8.2) L Albumin 2.3 g/dL (3.4-5.0) L Albumin/Globulin Ratio 0.7 (1.0-1.7) L Test 01/31/21 08:37 Glucose (Fingerstick) 111 mg/dL (70-99) H Laboratory Tests 01/31/21 06:15 Laboratory Tests 01/31/21 06:15 Meds Current Medications Medications (Trade) Dose Ordered Sig/Srinath Route PRN Reason Start Time Stop Time Status Last Admin Dose Admin Vancomycin HCl 500 mg/Sodium Chloride 100 ml @ 100 mls/hr QTUTHSA IV 01/30/21 16:00 01/30/21 18:05 Quetiapine Fumarate (SEROquel) 25 mg [id number] PO 01/30/21 16:00 01/31/21 08:17 Bisacodyl (Dulcolax Supp) 10 mg 1X ONCE SC 01/30/21 10:15 01/30/21 10:16 DC 01/30/21 11:12 Piperacillin Sod/ Tazobactam Sod 2.25 gm/Sodium Chloride 50 ml @ 100 mls/hr Q8HRS IV 01/30/21 14:00 01/31/21 05:07 Assessment Assessment 1. Acute metabolic encephalopathy. Continue to give her lorazepam as needed. Monitor closely in the Intensive Care Unit. Consult Dr. Martinez for neurology evaluation and management. Likely due to hypertensive crisis.Mental status is improving. 2. Acute hypertensive crisis. Patient was initially treated with Cardene IV drip. Consult Dr. Leahy for cardiology evaluation and management. 3. Elevated troponin. This may be due to demand ischemia and also end-stage renal disease may be contributing. 4. End-stage renal disease, on hemodialysis. 5. Coronary artery disease. 6. Diastolic congestive heart failure. 7. Physical deconditioning. 8. Asthma. 9. Gastroesophageal reflux disease. 10. Hyperlipidemia. 11. Severe pulmonary hypertension. 12. 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 13. History of depression. 14. 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 Monitor blood sugar. 15. History of secondary hyperparathyroidism. 16. Marijuana abuse Plan: End-stage renal disease on hemodialysis - consult Dr. Hernandez for management of end-stage renal disease and hemodialysis. Condition treatment discussed with the patient's brother at bedside in the Emergency Room. Prognosis of this patient is extremely poor due to her multiple medical problems. As patient remained stable patient was admitted to CVC unit. Acute hypertensive crisis- patient is off Cardene drip. Labs reviewed. As needed IV hydralazine. Blood pressure is better controlled with [id number]. COVID-19 infection. SARS-CoV-2 PCR test is positive. This may be also contributing to patient's poor appetite, body aches and confusion.I will also consult Dr. Ray Nino for Infectious Disease evaluation and management because of her fever of 103 degrees Fahrenheit. Her chest x-ray, urinalysis as well as SARS-CoV-2 antigen test is negative. Consult Dr. Nino for infectious disease evaluation and management. Patient is running low-grade fever. WBC count is 14.9. On IV Vancomycin. Cefepime has been changed to IV Zosyn. Bl c/s 06/09 Gram + cocci- ? contaminant. CT abd/pelvis 01/28/21 1. Small right pleural effusion and right greater than left posterior dependent and basilar atelectasis and possible superimposed pleural parenchymal scarring. There is no consolidated pneumonia. 2. Soft tissue stranding and small amount of soft tissue gas within the right axilla and base of the right neck. Correlate for recent instrumentation or catheterization. 3. Moderate colonic stool. 4. Mild bladder wall thickening. This may be due to underdistention or cystitis. Correlate with urinalysis. 5. Trace nonspecific pelvic free fluid and mild body wall edema. 6. Renal atrophy. US rt UE- negative for DVT. Acute metabolic encephalopathy-most likely due to COVID-19 infection and may be multifactorial.Slightly better. Increase Seroquel to 25 mg p.o. twice daily and 25 mg at bedtime. Severe malnutrition-patient is not eating but also does not allow any IV fluids or IV access. I have encouraged her to drink Nepro. Rt arm swollen. Change IV to PICC line. Started on PPN yesterday. D/w staff. place midline and restarted PPN. Patient has constipation and has stool on CT of the abdomen. Has abdominal pain also. Change senna S to 2 tablets daily. Prognosis of this patient is extremely poor due to her multiple medical problems. D/w daughter Kerri -about patient's condition,treatment,options,prognosis on 01/29/21., Plan Plan For more details regarding further plans, please refer to the orders. Justifications for Admission Other Justification GAURAV DANG MD Jan 31, 2021 09:35
--- NOTE | 2021-01-31 10:24 | PDOC ---
Infectious Disease Note Subjective: Subjective Patient lying in bed sleepy arousable answers only few questions Continues to have stomach pain No vomiting Afebrile On room air P.o. intake remains poor d/w RN Vital Signs: Vital Signs Vital Signs Date Time Temp Pulse Resp B/P (MAP) Pulse Ox O2 Delivery O2 Flow Rate FiO2 01/31/21 08:18 71 152/67 01/31/21 07:55 97.4 16 90 Room Air 97.4 Physical Exam: PHYSICAL EXAM GEN: Patient alert awake appears comfortable on room air HEENT: Normocephalic atraumatic, NECK supple no meningismus LUNGS: Decreased breath sound at the bases , no accessory muscle use HEART: S1, S2 regular. ABDOMEN: Soft, nontender, bowel sounds present Spine: No spine tenderness, Chest wall and axilla no crepitus, or warmth no pereira EXTREMITIES: Right upper extremity mild edema present no cyanosis. Fistula site clean SKIN: Unremarkable. NEUROLOGIC: More alert, moves all 4 extremities Pscyh calm Midline clean Medications: Inpatient Meds: Medications reviewed. Labs: Lab Laboratory Tests Test 01/30/21 11:03 01/30/21 17:49 01/30/21 21:06 01/31/21 06:15 Glucose (Fingerstick) 128 mg/dL (70-99) 92 mg/dL (70-99) 74 mg/dL (70-99) White Blood Count 14.9 x10^3/uL (4.0-11.0) Red Blood Count 2.87 x10^6/uL (3.50-5.40) Hemoglobin 8.6 g/dL (12.0-15.5) Hematocrit 26.6 % (36.0-47.0) Mean Corpuscular Volume 93 fL (79-100) Mean Corpuscular Hemoglobin 30 pg (25-35) Mean Corpuscular Hemoglobin Concent 33 g/dL (31-37) Red Cell Distribution Width 15.4 % (11.5-14.5) Platelet Count 189 x10^3/uL (140-400) Neutrophils (%) (Auto) 88 % (31-73) Lymphocytes (%) (Auto) 4 % (24-48) Monocytes (%) (Auto) 8 % (0-9) Eosinophils (%) (Auto) 0 % (0-3) Basophils (%) (Auto) 0 % (0-3) Neutrophils # (Auto) 13.1 x10^3/uL (1.8-7.7) Lymphocytes # (Auto) 0.6 x10^3/uL (1.0-4.8) Monocytes # (Auto) 1.1 x10^3/uL (0.0-1.1) Eosinophils # (Auto) 0.0 x10^3/uL (0.0-0.7) Basophils # (Auto) 0.0 x10^3/uL (0.0-0.2) Sodium Level 138 mmol/L (136-145) Potassium Level 4.0 mmol/L (3.5-5.1) Chloride Level 102 mmol/L (98-107) Carbon Dioxide Level 33 mmol/L (21-32) Anion Gap 3 (6-14) Blood Urea Nitrogen 22 mg/dL (7-20) Creatinine 4.3 mg/dL (0.6-1.0) Estimated GFR (Cockcroft-Gault) 12.8 BUN/Creatinine Ratio 5 (6-20) Glucose Level 107 mg/dL (70-99) Calcium Level 8.8 mg/dL (8.5-10.1) Total Bilirubin 0.5 mg/dL (0.2-1.0) Aspartate Amino Transf (AST/SGOT) 25 U/L (15-37) Alanine Aminotransferase (ALT/SGPT) 68 U/L (14-59) Alkaline Phosphatase 88 U/L (46-116) Total Protein 5.5 g/dL (6.4-8.2) Albumin 2.3 g/dL (3.4-5.0) Albumin/Globulin Ratio 0.7 (1.0-1.7) Test 01/31/21 08:37 Glucose (Fingerstick) 111 mg/dL (70-99) Micro CT C/A/P IMPRESSION: 1. Small right pleural effusion and right greater than left posterior dependent and basilar atelectasis and possible superimposed pleural parenchymal scarring. There is no consolidated pneumonia. 2. Soft tissue stranding and small amount of soft tissue gas within the right axilla and base of the right neck. Correlate for recent instrumentation or catheterization. 3. Moderate colonic stool. 4. Mild bladder wall thickening. This may be due to underdistention or cystitis. Correlate with urinalysis. 5. Trace nonspecific pelvic free fluid and mild body wall edema. 6. Renal atrophy. Objective: Assessment: 1. COVID-19 positive. 2. Encephalopathy , not improving, appears multifactorial ,hypertensive and covid 3. End-stage renal disease, on hemodialysis through left upper extremity fistula. 4. Coronary artery disease. 5. Hypertension. 6. Coronary artery disease. 7. h/o Cerebrovascular accident in the past. 8.Gastroparesis, nausea and vomiting resolved 9. Leucocytosis afebrile this admission, UA neg on admission,on RA, could be reactive, KUB shows nonspecific changes 10. Bacteremia 1 out of 3 bottles possibly contaminant Plan: Plan of Care Continue IV Vanco and Zosyn ultrasound of right upper extremity neg for dvt ct c/a/p with abn but pt has no overlying skin or soft tissue changes in the area..., no pain GI team following Trend WBC Cont supportive care monitor labs and cultures Maintain aspiration precautions Prognosis poor Discussed with nursing staff HERMANN BA MD Jan 31, 2021 10:24
--- NOTE | 2021-01-31 11:28 | PDOC ---
Date of Service: DATE: 01/31/21 TIME: 11:23 Objective: Objective: D/w nurse - lethargic, wouldn't take meds or eat this morning, not interested in communicating much, might have reported to ID that she had abdominal pain, on PPN. Vital Signs: Vital Signs Date Time Temp Pulse Resp B/P (MAP) Pulse Ox O2 Delivery O2 Flow Rate FiO2 01/31/21 08:18 71 152/67 01/31/21 07:55 97.4 16 90 Room Air 97.4 Labs: Laboratory Tests Test 01/30/21 17:49 01/30/21 21:06 01/31/21 06:15 01/31/21 08:37 Glucose (Fingerstick) 92 mg/dL 74 mg/dL 111 mg/dL White Blood Count 14.9 x10^3/uL Red Blood Count 2.87 x10^6/uL Hemoglobin 8.6 g/dL Hematocrit 26.6 % Mean Corpuscular Volume 93 fL Mean Corpuscular Hemoglobin 30 pg Mean Corpuscular Hemoglobin Concent 33 g/dL Red Cell Distribution Width 15.4 % Platelet Count 189 x10^3/uL Neutrophils (%) (Auto) 88 % Lymphocytes (%) (Auto) 4 % Monocytes (%) (Auto) 8 % Eosinophils (%) (Auto) 0 % Basophils (%) (Auto) 0 % Neutrophils # (Auto) 13.1 x10^3/uL Lymphocytes # (Auto) 0.6 x10^3/uL Monocytes # (Auto) 1.1 x10^3/uL Eosinophils # (Auto) 0.0 x10^3/uL Basophils # (Auto) 0.0 x10^3/uL Sodium Level 138 mmol/L Potassium Level 4.0 mmol/L Chloride Level 102 mmol/L Carbon Dioxide Level 33 mmol/L Anion Gap 3 Blood Urea Nitrogen 22 mg/dL Creatinine 4.3 mg/dL Estimated GFR (Cockcroft-Gault) 12.8 BUN/Creatinine Ratio 5 Glucose Level 107 mg/dL Calcium Level 8.8 mg/dL Total Bilirubin 0.5 mg/dL Aspartate Amino Transf (AST/SGOT) 25 U/L Alanine Aminotransferase (ALT/SGPT) 68 U/L Alkaline Phosphatase 88 U/L Total Protein 5.5 g/dL Albumin 2.3 g/dL Albumin/Globulin Ratio 0.7 PE: GEN: in COVID isolation - exam deferred LUNGS: room air HEART: RRR per chart/monitor A/P: COVID, encephalopathy, non-compliance, refusing to eat Chronic anemia (stable), abnormal LFTs (resolving) Chronic abd pain, GERD, gastroparesis, ?constipation - past GI workup per co nsult note -- Difficult situation. Justicifation of Admission Dx: Justifications for Admission: Justification of Admission Dx: N/A ALL GONZALEZ Jan 31, 2021 11:28
--- NOTE | 2021-01-31 11:44 | PDOC ---
Renal-Progress Notes Subjective Notes Notes STILL CONFUSED History of Present Illness Hx of present illness STABLE Vitals Vitals Vital Signs Date Time Temp Pulse Resp B/P (MAP) Pulse Ox O2 Delivery O2 Flow Rate FiO2 01/31/21 11:27 98.7 50 16 83/53 (63) 91 Nasal Cannula 2.0 98.7 Weight Weight [ ] I.O. Intake and Output Intake and Output 01/31/21 07:00 Intake Total 300 ml Output Total 0 ml Balance 300 ml Intake Oral 100 ml IV Total 200 ml Output Urine Total 0 ml Labs Labs Laboratory Tests Test 01/30/21 17:49 01/30/21 21:06 01/31/21 06:15 01/31/21 08:37 Glucose (Fingerstick) 92 mg/dL (70-99) 74 mg/dL (70-99) 111 mg/dL (70-99) White Blood Count 14.9 x10^3/uL (4.0-11.0) Red Blood Count 2.87 x10^6/uL (3.50-5.40) Hemoglobin 8.6 g/dL (12.0-15.5) Hematocrit 26.6 % (36.0-47.0) Mean Corpuscular Volume 93 fL (79-100) Mean Corpuscular Hemoglobin 30 pg (25-35) Mean Corpuscular Hemoglobin Concent 33 g/dL (31-37) Red Cell Distribution Width 15.4 % (11.5-14.5) Platelet Count 189 x10^3/uL (140-400) Neutrophils (%) (Auto) 88 % (31-73) Lymphocytes (%) (Auto) 4 % (24-48) Monocytes (%) (Auto) 8 % (0-9) Eosinophils (%) (Auto) 0 % (0-3) Basophils (%) (Auto) 0 % (0-3) Neutrophils # (Auto) 13.1 x10^3/uL (1.8-7.7) Lymphocytes # (Auto) 0.6 x10^3/uL (1.0-4.8) Monocytes # (Auto) 1.1 x10^3/uL (0.0-1.1) Eosinophils # (Auto) 0.0 x10^3/uL (0.0-0.7) Basophils # (Auto) 0.0 x10^3/uL (0.0-0.2) Sodium Level 138 mmol/L (136-145) Potassium Level 4.0 mmol/L (3.5-5.1) Chloride Level 102 mmol/L (98-107) Carbon Dioxide Level 33 mmol/L (21-32) Anion Gap 3 (6-14) Blood Urea Nitrogen 22 mg/dL (7-20) Creatinine 4.3 mg/dL (0.6-1.0) Estimated GFR (Cockcroft-Gault) 12.8 BUN/Creatinine Ratio 5 (6-20) Glucose Level 107 mg/dL (70-99) Calcium Level 8.8 mg/dL (8.5-10.1) Total Bilirubin 0.5 mg/dL (0.2-1.0) Aspartate Amino Transf (AST/SGOT) 25 U/L (15-37) Alanine Aminotransferase (ALT/SGPT) 68 U/L (14-59) Alkaline Phosphatase 88 U/L (46-116) Total Protein 5.5 g/dL (6.4-8.2) Albumin 2.3 g/dL (3.4-5.0) Albumin/Globulin Ratio 0.7 (1.0-1.7) Micro Micro Microbiology 01/27/21 Blood Culture - Final, Complete Review of Systems Constitutional: yes: other (CONFUSED) Physical Exam General Appearance: mild distress Skin: warm Respiratory: bilateral CTA, decreased breath sounds Heart: S1S2 Abdomen: soft, bowel sounds present Genitourinary: bladder flat Extremities: pulses present Neurology: confused Musculoskeletal: Osteoarthritis Assessment Assessment IMP COVID 19 POS [id number] ARM BC AVF HTN [id number] ENCEPHALOPATHY DUE TO ABOVE LEUCOCYTOSIS-NEW ANEMIA FLUID OVERLOAD-RESOLVED ACUTE ON CHRONIC DIASTOLIC CHF FEVER CAD WITH CABG BACTEREMIA PLAN EDGAR ON HOLD CONT HOME MEDS RENAL DIET ENC COMPLIANCE ID EVAL AND TX HD TTS GI EVALUATION ANTIBIOTICS CATAPRESS TTS PATCH TING REYNA MD Jan 31, 2021 11:44
--- NOTE | 2021-01-31 11:50 | NUR ---
SS following up with discharge planning. SS reviewed pt chart and discussed with pt RN. Pt is currently requiring oxygen at two liters nasal canula. COVID19 positive on 01/16/2021. PT/OT recommended long term unit. Pt has outpatient hemodialysis at [facility], ; fax [phone]. 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 Per RN, pt's blood pressure low today. Pt on IV Zosyn and IV Vancomycin. Pt on Clinimix. SS will continue to follow for discharge planning.
[2021-01-31] MEDS ORDERED: IV NORMAL SALINE 500ML BAG 500 ML IV ONE (13:30)
[2021-01-31] MEDS: AA 4.25 %/CALCIUM/LYTES/D5W 1,000 ML IV SCH (13:43)
--- NOTE | 2021-01-31 15:50 | NUR ---
Wound/Ostomy Care Wound Type/Assessment: wound care follow up for stage III PU to coccyx and DTI to left heel. Pt has altered mental status and does not stay turned to side, even for dressing change. Pt is continuously moving in bed and rubbing heels on mattress. Wounds cleansed and assessed. Treatment Recommendations/Plan: Recommendations for skin prep and foam dressing to both heel and coccyx. Apply heel medix while in bed to both heels for treatment and protection. Education provided: pt unable to be educated d/t mental status. Offloading surface/device: Pt turned left side but continuously moves in bed. Recommended Referrals/Tests: na Discharge Recommendations for dressings: Dressing change instructions left in room. No other wounds noted. Bed lowered and call light in reach and wound care will follow up on 02/05/21.
--- NOTE | 2021-01-31 18:15 | NUR ---
Patient's BP hypotensive with systolic ranging from 70s-90s & diastolic ranging from 20s-50s most of morning/afternoon. Patient also refusing medications/food, wanting to be left alone to sleep. Dr. Ng notified, orders received. BP improving some. Will continue to monitor.
[2021-01-31] MEDS: ATORVASTATIN CALCIUM 40 MG TABLET. PO SCH (20:20)
[2021-01-31] MEDS: HYDROcodone/APAP 7.5/325MG 1 TAB TABLET PO PRN (21:20)
[2021-01-31] MEDS: LORazepam 0.5 MG TABLET PO PRN (21:20)
[2021-02-01] MEDS: AA 4.25 %/CALCIUM/LYTES/D5W 1,000 ML IV SCH ×3 (02:53→21:25)
[2021-02-01 03:45] VITALS: BP 124/53
[2021-02-01] MEDS: PIPERACILLIN/TAZOBACTAM 2.25 GM in IV NORMAL SALINE 50ML 50 ML IV SCH ×3 (05:24→21:17)
[2021-02-01 07:07] LABS: ALBUMIN/GLOBULIN RATIO 0.6 (1.0-1.7); CALCIUM 8.1 mg/dL (8.5-10.1); CREATININE 5.8 mg/dL (0.6-1.0); GFR 9.1; POTASSIUM 4.4 mmol/L (3.5-5.1); TOTAL BILIRUBIN 0.4 mg/dL (0.2-1.0); TOTAL PROTEIN 5.1 g/dL (6.4-8.2)
[2021-02-01 07:24] LABS: BASO % 0 % (0-3); EOS # 0.1 x10^3/uL (0.0-0.7); EOS % 1 % (0-3); HEMATOCRIT 24.7 % (36.0-47.0); HEMOGLOBIN 8.1 g/dL (12.0-15.5); LYMPH # 0.9 x10^3/uL (1.0-4.8); LYMPH % 8 % (24-48); MEAN CORPUSCULAR HEMOGLOBIN 30 pg (25-35); MEAN CORPUSCULAR HGB CONC 33 g/dL (31-37); MEAN CORPUSCULAR VOLUME 92 fL (79-100); MONO # 1.1 x10^3/uL (0.0-1.1); MONO % 10 % (0-9); NEUT # 9.2 x10^3/uL (1.8-7.7); NEUT % 81 % (31-73); PLATELET COUNT 195 x10^3/uL (140-400); RED BLOOD COUNT 2.68 x10^6/uL (3.50-5.40); RED CELL DISTRIBUTION WIDTH 14.8 % (11.5-14.5); WHITE BLOOD COUNT 11.3 x10^3/uL (4.0-11.0)
[2021-02-01 07:37] VITALS: BP 102/48
--- NOTE | 2021-02-01 07:53 | PDOC ---
Infectious Disease Note Subjective: Subjective Patient lying in bed sleepy arousable answers only few questions States feels the same No vomiting Afebrile On room air this a.m. P.o. intake remains poor d/w RN Vital Signs: Vital Signs Vital Signs Date Time Temp Pulse Resp B/P (MAP) Pulse Ox O2 Delivery O2 Flow Rate FiO2 02/01/21 07:37 98.0 66 20 102/48 (66) 94 Room Air 98.0 01/31/21 21:50 2.0 Physical Exam: PHYSICAL EXAM GEN: Patient alert awake appears comfortable on room air HEENT: Normocephalic atraumatic, NECK supple no meningismus LUNGS: Decreased breath sound at the bases , no accessory muscle use HEART: S1, S2 regular. ABDOMEN: Soft, nontender, bowel sounds present Spine: No spine tenderness, Chest wall and axilla no crepitus, or warmth no pereira EXTREMITIES: Right upper extremity mild edema present no cyanosis. Fistula site clean SKIN: Unremarkable. NEUROLOGIC: More alert, moves all 4 extremities Pscyh calm Midline clean Medications: Inpatient Meds: Medications reviewed. Labs: Lab Laboratory Tests Test 01/31/21 08:37 01/31/21 11:39 01/31/21 20:47 02/01/21 06:30 Glucose (Fingerstick) 111 mg/dL (70-99) 145 mg/dL (70-99) 156 mg/dL (70-99) White Blood Count 11.3 x10^3/uL (4.0-11.0) Red Blood Count 2.68 x10^6/uL (3.50-5.40) Hemoglobin 8.1 g/dL (12.0-15.5) Hematocrit 24.7 % (36.0-47.0) Mean Corpuscular Volume 92 fL (79-100) Mean Corpuscular Hemoglobin 30 pg (25-35) Mean Corpuscular Hemoglobin Concent 33 g/dL (31-37) Red Cell Distribution Width 14.8 % (11.5-14.5) Platelet Count 195 x10^3/uL (140-400) Neutrophils (%) (Auto) 81 % (31-73) Lymphocytes (%) (Auto) 8 % (24-48) Monocytes (%) (Auto) 10 % (0-9) Eosinophils (%) (Auto) 1 % (0-3) Basophils (%) (Auto) 0 % (0-3) Neutrophils # (Auto) 9.2 x10^3/uL (1.8-7.7) Lymphocytes # (Auto) 0.9 x10^3/uL (1.0-4.8) Monocytes # (Auto) 1.1 x10^3/uL (0.0-1.1) Eosinophils # (Auto) 0.1 x10^3/uL (0.0-0.7) Basophils # (Auto) 0.0 x10^3/uL (0.0-0.2) Sodium Level 135 mmol/L (136-145) Potassium Level 4.4 mmol/L (3.5-5.1) Chloride Level 99 mmol/L (98-107) Carbon Dioxide Level 30 mmol/L (21-32) Anion Gap 6 (6-14) Blood Urea Nitrogen 41 mg/dL (7-20) Creatinine 5.8 mg/dL (0.6-1.0) Estimated GFR (Cockcroft-Gault) 9.1 BUN/Creatinine Ratio 7 (6-20) Glucose Level 151 mg/dL (70-99) Calcium Level 8.1 mg/dL (8.5-10.1) Total Bilirubin 0.4 mg/dL (0.2-1.0) Aspartate Amino Transf (AST/SGOT) 33 U/L (15-37) Alanine Aminotransferase (ALT/SGPT) 48 U/L (14-59) Alkaline Phosphatase 81 U/L (46-116) Total Protein 5.1 g/dL (6.4-8.2) Albumin 2.0 g/dL (3.4-5.0) Albumin/Globulin Ratio 0.6 (1.0-1.7) Micro CT C/A/P IMPRESSION: 1. Small right pleural effusion and right greater than left posterior dependent and basilar atelectasis and possible superimposed pleural parenchymal scarring. There is no consolidated pneumonia. 2. Soft tissue stranding and small amount of soft tissue gas within the right axilla and base of the right neck. Correlate for recent instrumentation or catheterization. 3. Moderate colonic stool. 4. Mild bladder wall thickening. This may be due to underdistention or cystitis. Correlate with urinalysis. 5. Trace nonspecific pelvic free fluid and mild body wall edema. 6. Renal atrophy. Objective: Assessment: 1. COVID-19 positive. 2. Encephalopathy , not improving, appears multifactorial ,hypertensive and covid 3. End-stage renal disease, on hemodialysis through left upper extremity fistula. 4. Coronary artery disease. 5. Hypertension. 6. Coronary artery disease. 7. h/o Cerebrovascular accident in the past. 8.Gastroparesis, nausea and vomiting resolved 9. Leucocytosis afebrile this admission, UA neg on admission,on RA, could be reactive, KUB shows nonspecific changes 10. Bacteremia 1 out of 3 bottles staph epidermidis possibly contaminant Plan: Plan of Care Continue IV Vanco and Zosyn ultrasound of right upper extremity neg for dvt ct c/a/p with abn but pt has no overlying skin or soft tissue changes in the area..., no pain GI team following Trend WBC Cont supportive care monitor labs and cultures Maintain aspiration precautions Prognosis poor Discussed with nursing staff HERMANN BA MD Feb 01, 2021 07:53
[2021-02-01] MEDS: INSULIN LISPRO 300 UNITS/3 ML VIAL. SQ SCH ×3 (08:00→17:00)
[2021-02-01] MEDS: CARVEDILOL 12.5 MG TABLET. PO SCH ×2 (08:00→17:00)
--- NOTE | 2021-02-01 08:21 | PDOC ---
Renal-Progress Notes Subjective Notes Notes STILL HAS CONFUSION History of Present Illness Hx of present illness STABLE Vitals Vitals Vital Signs Date Time Temp Pulse Resp B/P (MAP) Pulse Ox O2 Delivery O2 Flow Rate FiO2 02/01/21 07:37 98.0 66 20 102/48 (66) 94 Room Air 98.0 01/31/21 21:50 2.0 Weight Weight [ ] I.O. Intake and Output Intake and Output 02/01/21 07:00 Intake Total 1110 ml Output Total 0 ml Balance 1110 ml Intake Oral 10 ml IV Total 1100 ml Output Urine Total 0 ml Labs Labs Laboratory Tests Test 01/31/21 08:37 01/31/21 11:39 01/31/21 20:47 02/01/21 06:30 Glucose (Fingerstick) 111 mg/dL (70-99) 145 mg/dL (70-99) 156 mg/dL (70-99) White Blood Count 11.3 x10^3/uL (4.0-11.0) Red Blood Count 2.68 x10^6/uL (3.50-5.40) Hemoglobin 8.1 g/dL (12.0-15.5) Hematocrit 24.7 % (36.0-47.0) Mean Corpuscular Volume 92 fL (79-100) Mean Corpuscular Hemoglobin 30 pg (25-35) Mean Corpuscular Hemoglobin Concent 33 g/dL (31-37) Red Cell Distribution Width 14.8 % (11.5-14.5) Platelet Count 195 x10^3/uL (140-400) Neutrophils (%) (Auto) 81 % (31-73) Lymphocytes (%) (Auto) 8 % (24-48) Monocytes (%) (Auto) 10 % (0-9) Eosinophils (%) (Auto) 1 % (0-3) Basophils (%) (Auto) 0 % (0-3) Neutrophils # (Auto) 9.2 x10^3/uL (1.8-7.7) Lymphocytes # (Auto) 0.9 x10^3/uL (1.0-4.8) Monocytes # (Auto) 1.1 x10^3/uL (0.0-1.1) Eosinophils # (Auto) 0.1 x10^3/uL (0.0-0.7) Basophils # (Auto) 0.0 x10^3/uL (0.0-0.2) Sodium Level 135 mmol/L (136-145) Potassium Level 4.4 mmol/L (3.5-5.1) Chloride Level 99 mmol/L (98-107) Carbon Dioxide Level 30 mmol/L (21-32) Anion Gap 6 (6-14) Blood Urea Nitrogen 41 mg/dL (7-20) Creatinine 5.8 mg/dL (0.6-1.0) Estimated GFR (Cockcroft-Gault) 9.1 BUN/Creatinine Ratio 7 (6-20) Glucose Level 151 mg/dL (70-99) Calcium Level 8.1 mg/dL (8.5-10.1) Total Bilirubin 0.4 mg/dL (0.2-1.0) Aspartate Amino Transf (AST/SGOT) 33 U/L (15-37) Alanine Aminotransferase (ALT/SGPT) 48 U/L (14-59) Alkaline Phosphatase 81 U/L (46-116) Total Protein 5.1 g/dL (6.4-8.2) Albumin 2.0 g/dL (3.4-5.0) Albumin/Globulin Ratio 0.6 (1.0-1.7) Micro Micro Microbiology 01/27/21 Blood Culture - Final, Complete Review of Systems Constitutional: yes: other (CONFUSED) Physical Exam General Appearance: mild distress Skin: warm Respiratory: bilateral CTA, decreased breath sounds Heart: S1S2 Abdomen: soft, bowel sounds present Genitourinary: bladder flat Extremities: pulses present Neurology: confused Musculoskeletal: Osteoarthritis Assessment Assessment IMP COVID 19 POS [id number] ARM BC AVF HTN [id number] ENCEPHALOPATHY DUE TO ABOVE AND POSSIBLE COVID 19 RELATED LEUCOCYTOSIS-NEW ANEMIA FLUID OVERLOAD-RESOLVED ACUTE ON CHRONIC DIASTOLIC CHF FEVER CAD WITH CABG BACTEREMIA PLAN EDGAR ON HOLD CONT HOME MEDS RENAL DIET ENC COMPLIANCE ID EVAL AND TX HD TODAY UF TO TW ANTIBIOTICS TING REYNA MD Feb 01, 2021 08:21
[2021-02-01] MEDS: ASPIRIN ENTERIC COATED 81 MG TABLET.DR. PO SCH (09:00)
[2021-02-01] MEDS: LACTOBACILLUS RHAMNOSUS GG 1 CAPSULE. PO SCH ×2 (09:00→20:08)
[2021-02-01] MEDS: CLOPIDOGREL BISULFATE 75 MG TABLET PO SCH (09:00)
[2021-02-01] MEDS: ISOSORBIDE MONONITRATE ER 30 MG TAB.ER.24H PO SCH (09:00)
[2021-02-01] MEDS: EZETIMIBE 10 MG TABLET. PO SCH (09:00)
[2021-02-01] MEDS: MINOXIDIL 2.5 MG TABLET PO SCH ×2 (09:00→20:09)
--- NOTE | 2021-02-01 09:08 | PDOC ---
IM PROGRESS NOTES- Subjective Subjective Patient is not eating. She is a poor historian. She complains of abdominal pain.. Patient was hypotensive yesterday and required IV fluids. She did not eat breakfast today, remains constipated. Objective Vitals/I&O Vital Signs Date Time Temp Pulse Resp B/P (MAP) Pulse Ox O2 Delivery O2 Flow Rate FiO2 02/01/21 07:37 98.0 66 20 102/48 (66) 94 Room Air 98.0 01/31/21 21:50 2.0 I & O 01/31/21 01/31/21 02/01/21 15:00 23:00 07:00 Intake Total 60 ml 1050 ml Output Total 0 ml Balance 60 ml 1050 ml Physical Exam Physical Exam General Appearance - alert and in no distress Chest - decreased breath sounds at bases Heart - S1 and S2 normal Abdomen - soft, non tender Neurological - alert and confused, yelling at times. Musculoskeletal - generalized weakness Extremities - no edema Labs Laboratory Tests Test 01/31/21 11:39 01/31/21 20:47 02/01/21 06:30 Glucose (Fingerstick) 145 mg/dL (70-99) H 156 mg/dL (70-99) H White Blood Count 11.3 x10^3/uL (4.0-11.0) H Red Blood Count 2.68 x10^6/uL (3.50-5.40) L Hemoglobin 8.1 g/dL (12.0-15.5) L Hematocrit 24.7 % (36.0-47.0) L Mean Corpuscular Volume 92 fL (79-100) Mean Corpuscular Hemoglobin 30 pg (25-35) Mean Corpuscular Hemoglobin Concent 33 g/dL (31-37) Red Cell Distribution Width 14.8 % (11.5-14.5) H Platelet Count 195 x10^3/uL (140-400) Neutrophils (%) (Auto) 81 % (31-73) H Lymphocytes (%) (Auto) 8 % (24-48) L Monocytes (%) (Auto) 10 % (0-9) H Eosinophils (%) (Auto) 1 % (0-3) Basophils (%) (Auto) 0 % (0-3) Neutrophils # (Auto) 9.2 x10^3/uL (1.8-7.7) H Lymphocytes # (Auto) 0.9 x10^3/uL (1.0-4.8) L Monocytes # (Auto) 1.1 x10^3/uL (0.0-1.1) Eosinophils # (Auto) 0.1 x10^3/uL (0.0-0.7) Basophils # (Auto) 0.0 x10^3/uL (0.0-0.2) Sodium Level 135 mmol/L (136-145) L Potassium Level 4.4 mmol/L (3.5-5.1) Chloride Level 99 mmol/L (98-107) Carbon Dioxide Level 30 mmol/L (21-32) Anion Gap 6 (6-14) Blood Urea Nitrogen 41 mg/dL (7-20) H Creatinine 5.8 mg/dL (0.6-1.0) H Estimated GFR (Cockcroft-Gault) 9.1 BUN/Creatinine Ratio 7 (6-20) Glucose Level 151 mg/dL (70-99) H Calcium Level 8.1 mg/dL (8.5-10.1) L Total Bilirubin 0.4 mg/dL (0.2-1.0) Aspartate Amino Transferase (AST) 33 U/L (15-37) Alanine Aminotransferase (ALT) 48 U/L (14-59) Alkaline Phosphatase 81 U/L (46-116) Total Protein 5.1 g/dL (6.4-8.2) L Albumin 2.0 g/dL (3.4-5.0) L Albumin/Globulin Ratio 0.6 (1.0-1.7) L Laboratory Tests 02/01/21 06:30 Laboratory Tests 02/01/21 06:30 Meds Current Medications Medications (Trade) Dose Ordered Sig/Srinath Route PRN Reason Start Time Stop Time Status Last Admin Dose Admin Sodium Chloride 500 ml @ 0 mls/hr 1X ONCE IV 01/31/21 13:30 01/31/21 13:31 DC 01/31/21 13:43 Assessment Assessment 1. Acute metabolic encephalopathy. Continue to give her lorazepam as needed. Monitor closely in the Intensive Care Unit. Consult Dr. Martinez for neurology evaluation and management. Likely due to hypertensive crisis.Mental status is improving. 2. Acute hypertensive crisis. Patient was initially treated with Cardene IV drip. Consult Dr. Leahy for cardiology evaluation and management. 3. Elevated troponin. This may be due to demand ischemia and also end-stage renal disease may be contributing. 4. End-stage renal disease, on hemodialysis. 5. Coronary artery disease. 6. Diastolic congestive heart failure. 7. Physical deconditioning. 8. Asthma. 9. Gastroesophageal reflux disease. 10. Hyperlipidemia. 11. Severe pulmonary hypertension. 12. 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 13. History of depression. 14. 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 Monitor blood sugar. 15. History of secondary hyperparathyroidism. 16. Marijuana abuse Plan: End-stage renal disease on hemodialysis - consult Dr. Hernandez for management of end-stage renal disease and hemodialysis. Condition treatment discussed with the patient's brother at bedside in the Emergency Room. Prognosis of this patient is extremely poor due to her multiple medical problems. As patient remained stable patient was admitted to CVC unit. Acute hypertensive crisis- patient is off Cardene drip. Labs reviewed. As needed IV hydralazine. Blood pressure is better controlled with Catapres-TTS- 3. COVID-19 infection. SARS-CoV-2 PCR test is positive. This may be also contributing to patient's poor appetite, body aches and confusion.I will also consult Dr. Ray Nino for Infectious Disease evaluation and management because of her fever of 103 degrees Fahrenheit. Her chest x-ray, urinalysis as well as SARS-CoV-2 antigen test is negative. Consult Dr. Nino for infectious disease evaluation and management. Patient is running low-grade fever. WBC count is 11.4. On IV Vancomycin. Cefepime has been changed to IV Zosyn. Bl c/s 06/09 Gram + cocci- ? contaminant. CT abd/pelvis 01/28/21 1. Small right pleural effusion and right greater than left posterior dependent and basilar atelectasis and possible superimposed pleural parenchymal scarring. There is no consolidated pneumonia. 2. Soft tissue stranding and small amount of soft tissue gas within the right axilla and base of the right neck. Correlate for recent instrumentation or catheterization. 3. Moderate colonic stool. 4. Mild bladder wall thickening. This may be due to underdistention or cystitis. Correlate with urinalysis. 5. Trace nonspecific pelvic free fluid and mild body wall edema. 6. Renal atrophy. US rt UE- negative for DVT. Acute metabolic encephalopathy-most likely due to COVID-19 infection and may be multifactorial.Slightly better. Increase Seroquel to 25 mg p.o. twice daily and 25 mg at bedtime. Severe malnutrition-patient is not eating but also does not allow any IV fluids or IV access. I have encouraged her to drink Nepro. Rt arm swollen. Change IV to PICC line. Started on PPN yesterday. D/w staff. place midline and restarted PPN. Patient has constipation and has stool on CT of the abdomen. Has abdominal pain also. Change senna S to 2 tablets daily. Prognosis of this patient is extremely poor due to her multiple medical problems. Hypotension on January 31, 2021. Corrected with IV fluids. Seroquel was held yesterday because of low blood pressure but I will restart it today at a lower dose as her behavior is getting worse again. Constipation-Dulcolax suppository x1 today. D/w daughter Kerri -about patient's condition,treatment,options,prognosis on 01/29/21., Plan Plan For more details regarding further plans, please refer to the orders. Justifications for Admission Other Justification GAURAV DANG MD Feb 01, 2021 09:08
[2021-02-01] MEDS ORDERED: BISACODYL 10 MG SUPP.RECT. PR ONE (09:45)
[2021-02-01 10:08] VITALS: BP 169/60
[2021-02-01] MEDS: METOCLOPRAMIDE ORAL SOLN 10 MG/10 ML SOLUTION. PO SCH ×4 (11:11→20:09)
[2021-02-01] MEDS: LANSOPRAZOLE 30 MG TAB.RAP.DR PO SCH (11:11)
[2021-02-01] MEDS: SENNOSIDES/DOCUSATE 8.6/50MG TABLET. PO PRN (11:11)
[2021-02-01] MEDS ORDERED: diphenhydrAMINE 50 MG/ML VIAL IV PRN ×2 (14:30)
[2021-02-01] MEDS ORDERED: DIALYSIS PATIENT. MC PRN (14:30)
[2021-02-01] MEDS: QUEtiapine 25 MG TABLET. PO SCH ×2 (16:00→20:08)
[2021-02-01] MEDS ORDERED: CEFEPIME HCL IV Push 1 GM VIAL. IVP SCH (16:00)
[2021-02-01 19:35] VITALS: BP 157/50
[2021-02-01] MEDS: ATORVASTATIN CALCIUM 40 MG TABLET. PO SCH (20:08)
[2021-02-01 23:35] VITALS: BP 125/57
[2021-02-02 03:40] VITALS: BP 136/57
[2021-02-02] MEDS: LORazepam 0.5 MG TABLET PO PRN (03:46)
[2021-02-02] MEDS: HYDROcodone/APAP 7.5/325MG 1 TAB TABLET PO PRN (03:46)
[2021-02-02] MEDS: PIPERACILLIN/TAZOBACTAM 2.25 GM in IV NORMAL SALINE 50ML 50 ML IV SCH ×3 (05:36→21:50)
[2021-02-02 06:48] LABS: BASO # 0.1 x10^3/uL (0.0-0.2); BASO % 1 % (0-3); EOS # 0.1 x10^3/uL (0.0-0.7); EOS % 1 % (0-3); HEMATOCRIT 23.3 % (36.0-47.0); HEMOGLOBIN 7.9 g/dL (12.0-15.5); LYMPH # 0.8 x10^3/uL (1.0-4.8); LYMPH % 8 % (24-48); MEAN CORPUSCULAR HEMOGLOBIN 31 pg (25-35); MEAN CORPUSCULAR HGB CONC 34 g/dL (31-37); MEAN CORPUSCULAR VOLUME 92 fL (79-100); MONO # 0.9 x10^3/uL (0.0-1.1); MONO % 9 % (0-9); NEUT % 83 % (31-73); PLATELET COUNT 164 x10^3/uL (140-400); RED BLOOD COUNT 2.53 x10^6/uL (3.50-5.40); RED CELL DISTRIBUTION WIDTH 14.8 % (11.5-14.5); WHITE BLOOD COUNT 10.9 x10^3/uL (4.0-11.0)
[2021-02-02 07:09] LABS: ALBUMIN 2.1 g/dL (3.4-5.0); ALBUMIN/GLOBULIN RATIO 0.7 (1.0-1.7); CALCIUM 8.4 mg/dL (8.5-10.1); CREATININE 4.6 mg/dL (0.6-1.0); GFR 11.8; POTASSIUM 4.5 mmol/L (3.5-5.1); TOTAL BILIRUBIN 0.4 mg/dL (0.2-1.0); TOTAL PROTEIN 5.3 g/dL (6.4-8.2)
[2021-02-02 07:30] VITALS: BP 130/77
--- NOTE | 2021-02-02 07:57 | PDOC ---
Infectious Disease Note Subjective: Subjective Patient condition remains unchanged Afebrile On room air P.o. intake remains poor d/w RN Vital Signs: Vital Signs Vital Signs Date Time Temp Pulse Resp B/P (MAP) Pulse Ox O2 Delivery O2 Flow Rate FiO2 02/02/21 07:30 99.2 75 16 130/77 (94) 94 Room Air 99.2 02/01/21 08:00 2.0 Physical Exam: PHYSICAL EXAM GEN: Patient alert awake appears comfortable on room air HEENT: Normocephalic atraumatic, NECK supple no meningismus LUNGS: Decreased breath sound at the bases , no accessory muscle use HEART: S1, S2 regular. ABDOMEN: Soft, nontender, bowel sounds present Spine: No spine tenderness, Chest wall and axilla no crepitus, or warmth no pereira EXTREMITIES: Right upper extremity mild edema present no cyanosis. Fistula site clean SKIN: Unremarkable. NEUROLOGIC: More alert, moves all 4 extremities Pscyh calm Midline clean Medications: Inpatient Meds: Medications reviewed. Labs: Lab Laboratory Tests Test 02/01/21 12:21 02/01/21 18:14 02/01/21 20:36 02/02/21 06:30 Glucose (Fingerstick) 172 mg/dL (70-99) 105 mg/dL (70-99) 127 mg/dL (70-99) White Blood Count 10.9 x10^3/uL (4.0-11.0) Red Blood Count 2.53 x10^6/uL (3.50-5.40) Hemoglobin 7.9 g/dL (12.0-15.5) Hematocrit 23.3 % (36.0-47.0) Mean Corpuscular Volume 92 fL (79-100) Mean Corpuscular Hemoglobin 31 pg (25-35) Mean Corpuscular Hemoglobin Concent 34 g/dL (31-37) Red Cell Distribution Width 14.8 % (11.5-14.5) Platelet Count 164 x10^3/uL (140-400) Neutrophils (%) (Auto) 83 % (31-73) Lymphocytes (%) (Auto) 8 % (24-48) Monocytes (%) (Auto) 9 % (0-9) Eosinophils (%) (Auto) 1 % (0-3) Basophils (%) (Auto) 1 % (0-3) Neutrophils # (Auto) 9.0 x10^3/uL (1.8-7.7) Lymphocytes # (Auto) 0.8 x10^3/uL (1.0-4.8) Monocytes # (Auto) 0.9 x10^3/uL (0.0-1.1) Eosinophils # (Auto) 0.1 x10^3/uL (0.0-0.7) Basophils # (Auto) 0.1 x10^3/uL (0.0-0.2) Sodium Level 136 mmol/L (136-145) Potassium Level 4.5 mmol/L (3.5-5.1) Chloride Level 100 mmol/L (98-107) Carbon Dioxide Level 30 mmol/L (21-32) Anion Gap 6 (6-14) Blood Urea Nitrogen 33 mg/dL (7-20) Creatinine 4.6 mg/dL (0.6-1.0) Estimated GFR (Cockcroft-Gault) 11.8 BUN/Creatinine Ratio 7 (6-20) Glucose Level 131 mg/dL (70-99) Calcium Level 8.4 mg/dL (8.5-10.1) Total Bilirubin 0.4 mg/dL (0.2-1.0) Aspartate Amino Transf (AST/SGOT) 35 U/L (15-37) Alanine Aminotransferase (ALT/SGPT) 41 U/L (14-59) Alkaline Phosphatase 79 U/L (46-116) Total Protein 5.3 g/dL (6.4-8.2) Albumin 2.1 g/dL (3.4-5.0) Albumin/Globulin Ratio 0.7 (1.0-1.7) Micro CT C/A/P IMPRESSION: 1. Small right pleural effusion and right greater than left posterior dependent and basilar atelectasis and possible superimposed pleural parenchymal scarring. There is no consolidated pneumonia. 2. Soft tissue stranding and small amount of soft tissue gas within the right axilla and base of the right neck. Correlate for recent instrumentation or catheterization. 3. Moderate colonic stool. 4. Mild bladder wall thickening. This may be due to underdistention or cystitis. Correlate with urinalysis. 5. Trace nonspecific pelvic free fluid and mild body wall edema. 6. Renal atrophy. Objective: Assessment: 1. COVID-19 positive. 2. Encephalopathy , not improving, appears multifactorial ,hypertensive and covid, fluctuates 3. End-stage renal disease, on hemodialysis through left upper extremity fistula. 4. Coronary artery disease. 5. Hypertension. 6. Coronary artery disease. 7. h/o Cerebrovascular accident in the past. 8.Gastroparesis, nausea and vomiting resolved 9. Leucocytosis improving 10. Bacteremia 1 out of 3 bottles staph epidermidis possibly contaminant Plan: Plan of Care Continue IV Vanco and Zosyn renal dosing WBC is improving Cont supportive care monitor labs and cultures Maintain aspiration precautions Prognosis poor Discussed with nursing staff HERMANN BA MD Feb 02, 2021 07:57
[2021-02-02] MEDS: INSULIN LISPRO 300 UNITS/3 ML VIAL. SQ SCH ×3 (08:00→17:00)
[2021-02-02] MEDS: LACTOBACILLUS RHAMNOSUS GG 1 CAPSULE. PO SCH ×2 (09:42→21:47)
[2021-02-02] MEDS: AA 4.25 %/CALCIUM/LYTES/D5W 1,000 ML IV SCH (09:42)
[2021-02-02] MEDS: SENNOSIDES/DOCUSATE 8.6/50MG TABLET. PO PRN (09:46)
[2021-02-02] MEDS: LANSOPRAZOLE 30 MG TAB.RAP.DR PO SCH (09:46)
[2021-02-02] MEDS: MINOXIDIL 2.5 MG TABLET PO SCH ×2 (09:46→21:00)
[2021-02-02] MEDS: QUEtiapine 25 MG TABLET. PO SCH ×3 (09:47→21:48)
[2021-02-02] MEDS: ISOSORBIDE MONONITRATE ER 30 MG TAB.ER.24H PO SCH (09:47)
[2021-02-02] MEDS: EZETIMIBE 10 MG TABLET. PO SCH (09:47)
[2021-02-02] MEDS: CARVEDILOL 12.5 MG TABLET. PO SCH ×2 (09:49→16:45)
[2021-02-02] MEDS: ASPIRIN ENTERIC COATED 81 MG TABLET.DR. PO SCH (09:49)
[2021-02-02] MEDS: CLOPIDOGREL BISULFATE 75 MG TABLET PO SCH (09:49)
[2021-02-02] MEDS: METOCLOPRAMIDE ORAL SOLN 10 MG/10 ML SOLUTION. PO SCH ×4 (09:50→21:48)
--- NOTE | 2021-02-02 10:02 | PDOC ---
PROGRESS NOTES Date of Service: DATE: 02/02/21 TIME: 10:00 Subjective Subjective no new problems Objective Objective Vital Signs Date Time Temp Pulse Resp B/P (MAP) Pulse Ox O2 Delivery O2 Flow Rate FiO2 02/02/21 09:49 75 130/77 02/02/21 07:30 99.2 16 94 Room Air 99.2 02/01/21 08:00 2.0 Intake and Output 02/02/21 07:00 Intake Total 100 ml Output Total 0 ml Balance 100 ml Intake Oral 0 ml IV Total 100 ml Output Urine Total 0 ml Physical Exam Abdomen: Soft, No tenderness Heart: Regular rate (SR), Normal S1, Normal S2, Other (3/6 systolic murmur to RAYMOND border) Extremities: No edema General: Alert, No acute distress HEENT: Atraumatic, Mucous membr. moist/pink Lungs: Other (diminished bases) MUSCULOSKELETAL: No swelling, Osteoarthritic changes both hands Neck: No JVD Neuro: Normal gait, Other (sleepy this morning) Skin: No breakdown, No significant lesion Diagnosis Problem List Problems Medical Problems: (1) Altered mental status Status: Acute (2) ESRD (end stage renal disease) on dialysis Status: Acute (3) Hypertensive urgency Status: Acute Assessment Assessment slight improvement clinically 1. Acute metabolic encephalopathy. Continue to give her lorazepam as needed. Monitor closely in the Intensive Care Unit. Consult Dr. Martinez for neurology evaluation and management. Likely due to hypertensive crisis.Mental status is improving. 2. Acute hypertensive crisis. Patient was initially treated with Cardene IV drip. Consult Dr. Leahy for cardiology evaluation and management. 3. Elevated troponin. This may be due to demand ischemia and also end-stage renal disease may be contributing. 4. End-stage renal disease, on hemodialysis. 5. Coronary artery disease. 6. Diastolic congestive heart failure. 7. Physical deconditioning. 8. Asthma. 9. Gastroesophageal reflux disease. 10. Hyperlipidemia. 11. Severe pulmonary hypertension. 12. 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 13. History of depression. 14. 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 Monitor blood sugar. 15. History of secondary hyperparathyroidism. 16. Marijuana abuse Plan: wbc 12 down, clinimax for nutrition. more awake and talkiong End-stage renal disease on hemodialysis - consult Dr. Hernandez for management of end-stage renal disease and hemodialysis. Condition treatment discussed with the patient's brother at bedside in the Emergency Room. Prognosis of this patient is extremely poor due to her multiple medical problems. As patient remained stable patient was admitted to CVC unit. Acute hypertensive crisis- patient is off Cardene drip. Labs reviewed. As needed IV hydralazine. Blood pressure is better controlled with [id number]. COVID-19 infection. SARS-CoV-2 PCR test is positive. This may be also contributing to patient's poor appetite, body aches and confusion.I will also consult Dr. Ray Nino for Infectious Disease evaluation and management because of her fever of 103 degrees Fahrenheit. Her chest x-ray, urinalysis as well as SARS-CoV-2 antigen test is negative. Consult Dr. Nino for infectious disease evaluation and management. Patient is running low-grade fever. WBC count is 11.4. On IV Vancomycin. Cefepime has been changed to IV Zosyn. Bl c/s 06/09 Gram + cocci- ? contaminant. CT abd/pelvis 01/28/21 1. Small right pleural effusion and right greater than left posterior dependent and basilar atelectasis and possible superimposed pleural parenchymal scarring. There is no consolidated pneumonia. 2. Soft tissue stranding and small amount of soft tissue gas within the right axilla and base of the right neck. Correlate for recent instrumentation or catheterization. 3. Moderate colonic stool. 4. Mild bladder wall thickening. This may be due to underdistention or cystitis. Correlate with urinalysis. 5. Trace nonspecific pelvic free fluid and mild body wall edema. 6. Renal atrophy. US rt UE- negative for DVT. Acute metabolic encephalopathy-most likely due to COVID-19 infection and may be multifactorial.Slightly better. Increase Seroquel to 25 mg p.o. twice daily and 25 mg at bedtime. Severe malnutrition-patient is not eating but also does not allow any IV fluids or IV access. I have encouraged her to drink Nepro. Rt arm swollen. Change IV to PICC line. Started on PPN yesterday. D/w staff. place midline and restarted PPN. Patient has constipation and has stool on CT of the abdomen. Has abdominal pain also. Change senna S to 2 tablets daily. Prognosis of this patient is extremely poor due to her multiple medical problems. Hypotension on January 31, 2021. Corrected with IV fluids. Seroquel was held yesterday because of low blood pressure but I will restart it today at a lower dose as her behavior is getting worse again. Constipation-Dulcolax suppository x1 today. D/w daughter Kerri -about patient's condition,treatment,options,prognosis on 01/29/21., Plan Plan of Care Problems Medical Problems: (1) Altered mental status Status: Acute (2) ESRD (end stage renal disease) on dialysis Status: Acute (3) Hypertensive urgency Status: Acute Comment Review of Relevant I have reviewed the following items richard (where applicable) has been applied. Labs Laboratory Tests Test 02/01/21 12:21 02/01/21 18:14 02/01/21 20:36 02/02/21 06:30 Glucose (Fingerstick) 172 mg/dL (70-99) 105 mg/dL (70-99) 127 mg/dL (70-99) White Blood Count 10.9 x10^3/uL (4.0-11.0) Red Blood Count 2.53 x10^6/uL (3.50-5.40) Hemoglobin 7.9 g/dL (12.0-15.5) Hematocrit 23.3 % (36.0-47.0) Mean Corpuscular Volume 92 fL (79-100) Mean Corpuscular Hemoglobin 31 pg (25-35) Mean Corpuscular Hemoglobin Concent 34 g/dL (31-37) Red Cell Distribution Width 14.8 % (11.5-14.5) Platelet Count 164 x10^3/uL (140-400) Neutrophils (%) (Auto) 83 % (31-73) Lymphocytes (%) (Auto) 8 % (24-48) Monocytes (%) (Auto) 9 % (0-9) Eosinophils (%) (Auto) 1 % (0-3) Basophils (%) (Auto) 1 % (0-3) Neutrophils # (Auto) 9.0 x10^3/uL (1.8-7.7) Lymphocytes # (Auto) 0.8 x10^3/uL (1.0-4.8) Monocytes # (Auto) 0.9 x10^3/uL (0.0-1.1) Eosinophils # (Auto) 0.1 x10^3/uL (0.0-0.7) Basophils # (Auto) 0.1 x10^3/uL (0.0-0.2) Sodium Level 136 mmol/L (136-145) Potassium Level 4.5 mmol/L (3.5-5.1) Chloride Level 100 mmol/L (98-107) Carbon Dioxide Level 30 mmol/L (21-32) Anion Gap 6 (6-14) Blood Urea Nitrogen 33 mg/dL (7-20) Creatinine 4.6 mg/dL (0.6-1.0) Estimated GFR (Cockcroft-Gault) 11.8 BUN/Creatinine Ratio 7 (6-20) Glucose Level 131 mg/dL (70-99) Calcium Level 8.4 mg/dL (8.5-10.1) Total Bilirubin 0.4 mg/dL (0.2-1.0) Aspartate Amino Transf (AST/SGOT) 35 U/L (15-37) Alanine Aminotransferase (ALT/SGPT) 41 U/L (14-59) Alkaline Phosphatase 79 U/L (46-116) Total Protein 5.3 g/dL (6.4-8.2) Albumin 2.1 g/dL (3.4-5.0) Albumin/Globulin Ratio 0.7 (1.0-1.7) Microbiology 01/27/21 Blood Culture - Final, Complete Medications Current Medications Cefepime HCl (Maxipime) 3 gm Sa IVP ; Start 02/01/21 at 16:00; Stop 01/30/21 at 10:40; Status DC Diphenhydramine HCl (Benadryl) 25 mg 1X PRN PRN IV ITCHING Last administered on 02/01/21at 14:49; Start 02/01/21 at 14:30; Stop 02/02/21 at 14:29 Diphenhydramine HCl (Benadryl) 25 mg 1X PRN PRN IV ITCHING; Start 02/01/21 at 14:30; Stop 02/02/21 at 14:29 Info (PHARMACY MONITORING -- do not chart) 1 each PRN DAILY PRN MC SEE COMMENTS; Start 02/01/21 at 14:30 Quetiapine Fumarate (SEROquel) 12.5 mg [id number] PO Last administered on 02/02/21at 09:47; Start 02/01/21 at 16:00 Quetiapine Fumarate (SEROquel) 25 mg QHS PO Last administered on 02/01/21at 20:08; Start 02/01/21 at 21:00 Vitals/I & O Vital Sign - Last 24 Hours 02/01/21 02/01/21 02/01/21 02/01/21 10:08 19:35 20:00 20:08 Temp 97.9 97.8 97.9 97.8 Pulse 70 71 70 Resp 18 17 B/P (MAP) 169/60 (96) 157/50 (85) 169/60 Pulse Ox 95 96 O2 Delivery Room Air Room Air Room Air 02/01/21 02/01/21 02/02/21 02/02/21 20:09 23:35 03:40 03:46 Temp 97.4 98.0 97.4 98.0 Pulse 70 68 99 Resp 17 22 20 B/P (MAP) 169/60 125/57 (79) 136/57 (83) Pulse Ox 96 91 96 O2 Delivery Room Air Room Air Room Air 02/02/21 02/02/21 02/02/21 02/02/21 04:16 07:30 09:46 09:47 Temp 99.2 99.2 Pulse 75 75 75 Resp 20 16 B/P (MAP) 130/77 (94) 130/77 130/77 Pulse Ox 96 94 O2 Delivery Room Air Room Air 02/02/21 02/02/21 09:49 09:49 Pulse 75 75 B/P (MAP) 130/77 130/77 Intake and Output 02/01/21 02/01/21 02/02/21 15:00 23:00 07:00 Intake Total 50 ml 50 ml Output Total 0 ml Balance 50 ml 50 ml Justifications for Admission Other Justification KARL LUJAN MD Feb 02, 2021 10:02
[2021-02-02 11:03] VITALS: BP 138/68
--- NOTE | 2021-02-02 11:26 | PDOC ---
Renal-Progress Notes Subjective Notes Notes AWAKE AND ALERT History of Present Illness Hx of present illness CONFUSED Vitals Vitals Vital Signs Date Time Temp Pulse Resp B/P (MAP) Pulse Ox O2 Delivery O2 Flow Rate FiO2 02/02/21 11:03 98.8 85 16 138/68 (91) 92 Room Air 98.8 02/01/21 08:00 2.0 Weight Weight [ ] I.O. Intake and Output Intake and Output 02/02/21 07:00 Intake Total 100 ml Output Total 0 ml Balance 100 ml Intake Oral 0 ml IV Total 100 ml Output Urine Total 0 ml Labs Labs Laboratory Tests Test 02/01/21 12:21 02/01/21 18:14 02/01/21 20:36 02/02/21 06:30 Glucose (Fingerstick) 172 mg/dL (70-99) 105 mg/dL (70-99) 127 mg/dL (70-99) White Blood Count 10.9 x10^3/uL (4.0-11.0) Red Blood Count 2.53 x10^6/uL (3.50-5.40) Hemoglobin 7.9 g/dL (12.0-15.5) Hematocrit 23.3 % (36.0-47.0) Mean Corpuscular Volume 92 fL (79-100) Mean Corpuscular Hemoglobin 31 pg (25-35) Mean Corpuscular Hemoglobin Concent 34 g/dL (31-37) Red Cell Distribution Width 14.8 % (11.5-14.5) Platelet Count 164 x10^3/uL (140-400) Neutrophils (%) (Auto) 83 % (31-73) Lymphocytes (%) (Auto) 8 % (24-48) Monocytes (%) (Auto) 9 % (0-9) Eosinophils (%) (Auto) 1 % (0-3) Basophils (%) (Auto) 1 % (0-3) Neutrophils # (Auto) 9.0 x10^3/uL (1.8-7.7) Lymphocytes # (Auto) 0.8 x10^3/uL (1.0-4.8) Monocytes # (Auto) 0.9 x10^3/uL (0.0-1.1) Eosinophils # (Auto) 0.1 x10^3/uL (0.0-0.7) Basophils # (Auto) 0.1 x10^3/uL (0.0-0.2) Sodium Level 136 mmol/L (136-145) Potassium Level 4.5 mmol/L (3.5-5.1) Chloride Level 100 mmol/L (98-107) Carbon Dioxide Level 30 mmol/L (21-32) Anion Gap 6 (6-14) Blood Urea Nitrogen 33 mg/dL (7-20) Creatinine 4.6 mg/dL (0.6-1.0) Estimated GFR (Cockcroft-Gault) 11.8 BUN/Creatinine Ratio 7 (6-20) Glucose Level 131 mg/dL (70-99) Calcium Level 8.4 mg/dL (8.5-10.1) Total Bilirubin 0.4 mg/dL (0.2-1.0) Aspartate Amino Transf (AST/SGOT) 35 U/L (15-37) Alanine Aminotransferase (ALT/SGPT) 41 U/L (14-59) Alkaline Phosphatase 79 U/L (46-116) Total Protein 5.3 g/dL (6.4-8.2) Albumin 2.1 g/dL (3.4-5.0) Albumin/Globulin Ratio 0.7 (1.0-1.7) Test 02/02/21 11:14 Glucose (Fingerstick) 132 mg/dL (70-99) Micro Micro Microbiology 01/27/21 Blood Culture - Final, Complete Review of Systems Constitutional: yes: other (CONFUSED) Physical Exam General Appearance: mild distress Skin: warm Respiratory: bilateral CTA, decreased breath sounds Heart: S1S2 Abdomen: soft, bowel sounds present Genitourinary: bladder flat Extremities: pulses present Neurology: confused Musculoskeletal: Osteoarthritis Assessment Assessment IMP COVID 19 POS [id number] ARM BC AVF HTN [id number] ENCEPHALOPATHY DUE TO ABOVE AND POSSIBLE COVID 19 RELATED LEUCOCYTOSIS-NEW ANEMIA FLUID OVERLOAD-RESOLVED ACUTE ON CHRONIC DIASTOLIC CHF FEVER CAD WITH CABG BACTEREMIA PLAN EDGAR ON HOLD CONT HOME MEDS RENAL DIET ENC COMPLIANCE ID EVAL AND TX HD TTS VERY AGITATED-NEEDED IV BENADRYL TO GET HER THROUGH HD YESTERDAY ANTIBIOTICS TING REYNA MD Feb 02, 2021 11:26
[2021-02-02 15:04] VITALS: BP 92/40
[2021-02-02 19:50] VITALS: BP 86/48
[2021-02-02] MEDS: ATORVASTATIN CALCIUM 40 MG TABLET. PO SCH (21:47)
[2021-02-02 22:30] VITALS: BP 117/98
[2021-02-03] MEDS: AA 4.25 %/CALCIUM/LYTES/D5W 1,000 ML IV SCH ×2 (00:48→22:10)
[2021-02-03 02:30] VITALS: BP 112/42
[2021-02-03] MEDS: PIPERACILLIN/TAZOBACTAM 2.25 GM in IV NORMAL SALINE 50ML 50 ML IV SCH (05:35)
[2021-02-03 07:40] VITALS: BP 114/55
[2021-02-03] MEDS: VANCOMYCIN PER PHARMACY MC PRN (07:55)
[2021-02-03] MEDS: INSULIN LISPRO 300 UNITS/3 ML VIAL. SQ SCH ×3 (08:00→16:13)
[2021-02-03] MEDS: METOCLOPRAMIDE ORAL SOLN 10 MG/10 ML SOLUTION. PO SCH ×4 (08:13→22:12)
[2021-02-03] MEDS: LACTOBACILLUS RHAMNOSUS GG 1 CAPSULE. PO SCH ×2 (08:13→22:11)
[2021-02-03] MEDS: EZETIMIBE 10 MG TABLET. PO SCH (08:13)
[2021-02-03] MEDS: ASPIRIN ENTERIC COATED 81 MG TABLET.DR. PO SCH (08:14)
[2021-02-03] MEDS: CLOPIDOGREL BISULFATE 75 MG TABLET PO SCH (08:14)
[2021-02-03] MEDS: QUEtiapine 25 MG TABLET. PO SCH ×3 (08:15→22:11)
[2021-02-03] MEDS: LANSOPRAZOLE 30 MG TAB.RAP.DR PO SCH (08:15)
[2021-02-03 09:00] LABS: ALBUMIN 2.4 g/dL (3.4-5.0); ALBUMIN/GLOBULIN RATIO 0.7 (1.0-1.7); CALCIUM 8.6 mg/dL (8.5-10.1); CREATININE 6.2 mg/dL (0.6-1.0); GFR 8.4; POTASSIUM 4.9 mmol/L (3.5-5.1); TOTAL BILIRUBIN 0.5 mg/dL (0.2-1.0); TOTAL PROTEIN 5.9 g/dL (6.4-8.2)
--- NOTE | 2021-02-03 09:02 | PDOC ---
PROGRESS NOTES Date of Service DATE: 02/03/21 TIME: 09:00 Assessment Problems Medical Problems: (1) Altered mental status Status: Acute (2) ESRD (end stage renal disease) on dialysis Status: Acute (3) Hypertensive urgency Status: Acute Encephalopathy, hypertensive, also role of COVID 19 encephalopathy. She takes out her IVs and refuses to eat, has some bizarre behavior at home including sitting around naked. She is now eating some COVID 19 History of strokes including chronic right basal ganglia and bilateral thalamic lacunar infarcts on the CT. CT also shows white matter disease consistent with hypertension and diabetes, I doubt that she also has demyelinating disease. She is on statin, aspirin, clopidogrel Elevated troponin, renal failure, anemia, coronary artery disease, diastolic congestive heart failure, fever. 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, deconditioning, status-post coronary artery bypass grafting, peripheral artery disease Heartburn, nausea, vomiting, better Low back pain without evidence of acute radiculopathy or myelopathy Plan Treat medical issues TPN Holding on additional neurological studies Lorazepam and Seroquel Subjective She denies pain Objective Vital Signs Date Time Temp Pulse Resp B/P (MAP) Pulse Ox O2 Delivery O2 Flow Rate FiO2 02/03/21 07:40 98.4 76 18 114/55 (74) 99 Room Air 98.4 02/02/21 08:00 2.0 Intake and Output 02/03/21 07:00 Intake Total 110 ml Output Total 0 ml Balance 110 ml Intake Oral 110 ml Output Urine Total 0 ml PHYSICAL EXAM Alert, knows location, month, year PERRL. EOMI. CN: no focal findings. Muscle tone: normal. Muscle strength: 4/5, weaker on the left DTR: 0-1+ Plantar reflex: flexor Gait: not examined in bed. Sensory exam: Stocking loss. No cerebellar signs elicited. Review of Relevant I have reviewed the following items richard (where applicable) has been applied. Labs Laboratory Tests Test 02/01/21 12:21 02/01/21 18:14 02/01/21 20:36 02/02/21 06:30 Glucose (Fingerstick) 172 mg/dL (70-99) 105 mg/dL (70-99) 127 mg/dL (70-99) White Blood Count 10.9 x10^3/uL (4.0-11.0) Red Blood Count 2.53 x10^6/uL (3.50-5.40) Hemoglobin 7.9 g/dL (12.0-15.5) Hematocrit 23.3 % (36.0-47.0) Mean Corpuscular Volume 92 fL (79-100) Mean Corpuscular Hemoglobin 31 pg (25-35) Mean Corpuscular Hemoglobin Concent 34 g/dL (31-37) Red Cell Distribution Width 14.8 % (11.5-14.5) Platelet Count 164 x10^3/uL (140-400) Neutrophils (%) (Auto) 83 % (31-73) Lymphocytes (%) (Auto) 8 % (24-48) Monocytes (%) (Auto) 9 % (0-9) Eosinophils (%) (Auto) 1 % (0-3) Basophils (%) (Auto) 1 % (0-3) Neutrophils # (Auto) 9.0 x10^3/uL (1.8-7.7) Lymphocytes # (Auto) 0.8 x10^3/uL (1.0-4.8) Monocytes # (Auto) 0.9 x10^3/uL (0.0-1.1) Eosinophils # (Auto) 0.1 x10^3/uL (0.0-0.7) Basophils # (Auto) 0.1 x10^3/uL (0.0-0.2) Sodium Level 136 mmol/L (136-145) Potassium Level 4.5 mmol/L (3.5-5.1) Chloride Level 100 mmol/L (98-107) Carbon Dioxide Level 30 mmol/L (21-32) Anion Gap 6 (6-14) Blood Urea Nitrogen 33 mg/dL (7-20) Creatinine 4.6 mg/dL (0.6-1.0) Estimated GFR (Cockcroft-Gault) 11.8 BUN/Creatinine Ratio 7 (6-20) Glucose Level 131 mg/dL (70-99) Calcium Level 8.4 mg/dL (8.5-10.1) Total Bilirubin 0.4 mg/dL (0.2-1.0) Aspartate Amino Transf (AST/SGOT) 35 U/L (15-37) Alanine Aminotransferase (ALT/SGPT) 41 U/L (14-59) Alkaline Phosphatase 79 U/L (46-116) Total Protein 5.3 g/dL (6.4-8.2) Albumin 2.1 g/dL (3.4-5.0) Albumin/Globulin Ratio 0.7 (1.0-1.7) Test 02/02/21 11:14 02/02/21 16:45 02/02/21 20:48 02/03/21 07:39 Glucose (Fingerstick) 132 mg/dL (70-99) 160 mg/dL (70-99) 137 mg/dL (70-99) 105 mg/dL (70-99) Laboratory Tests Test 02/02/21 11:14 02/02/21 16:45 02/02/21 20:48 02/03/21 07:39 Glucose (Fingerstick) 132 mg/dL (70-99) 160 mg/dL (70-99) 137 mg/dL (70-99) 105 mg/dL (70-99) Microbiology 01/27/21 Blood Culture - Final, Complete Medications Current Medications Fentanyl Citrate (Fentanyl 2ml Vial) 75 mcg 1X ONCE IVP Last administered on 01/16/21at 08:31; Start 01/16/21 at 08:00; Stop 01/16/21 at 08:05; Status DC Ziprasidone (Geodon Im) 20 mg 1X ONCE IM Last administered on 01/16/21at 08:08; Start 01/16/21 at 08:00; Stop 01/16/21 at 08:05; Status DC Lorazepam (Ativan Inj) 2 mg 1X ONCE IVP Last administered on 01/16/21at 08:45; Start 01/16/21 at 08:45; Stop 01/16/21 at 08:46; Status DC Hydralazine HCl (Apresoline Inj) 20 mg 1X ONCE IVP Last administered on 01/16/21at 09:04; Start 01/16/21 at 09:00; Stop 01/16/21 at 09:02; Status DC Lorazepam (Ativan Inj) 2 mg 1X ONCE IVP Last administered on 01/16/21at 09:40; Start 01/16/21 at 09:30; Stop 01/16/21 at 09:31; Status DC Labetalol HCl (Normodyne Iv Push) 10 mg 1X ONCE IVP Last administered on 01/16/21at 12:03; Start 01/16/21 at 11:00; Stop 01/16/21 at 11:01; Status DC Aspirin (Aspirin Rectal Supp) 300 mg 1X ONCE VT Last administered on 01/16/21at 12:05; Start 01/16/21 at 11:15; Stop 01/16/21 at 11:16; Status DC Ondansetron HCl (Zofran) 4 mg PRN Q8HRS PRN IVP NAUSEA/VOMITING; Start 01/16/21 at 11:30; Stop 01/17/21 at 11:29; Status DC Insulin Human Lispro (HumaLOG) 0-5 UNITS TIDWMEALS SQ ; Start 01/16/21 at 12:00 Dextrose (Dextrose 50%-Water Syringe) 12.5 gm PRN Q15MIN PRN IV SEE COMMENTS; Start 01/16/21 at 11:30 Lorazepam (Ativan Inj) 1 mg PRN Q4HRS PRN IVP ANXIETY / AGITATION Last administered on 02/01/21at 15:07; Start 01/16/21 at 12:45 Hydralazine HCl (Apresoline Inj) 20 mg PRN Q4HRS PRN IVP ELEVATED BP, SEE COMMENTS Last administered on 01/16/21at 13:30; Start 01/16/21 at 13:00 Nicardipine HCl 50 mg/Sodium Chloride 250 ml @ 25 mls/hr CONT PRN IV SEE I/O RECORD Last administered on 01/17/21at 04:25; Start 01/16/21 at 14:00; Stop 01/17/21 at 16:08; Status DC Aspirin (Ecotrin) 81 mg DAILY PO Last administered on 02/03/21at 08:14; Start 01/17/21 at 13:00 Atorvastatin Calcium (Lipitor) 80 mg HS PO Last administered on 02/02/21at 21:47; Start 01/17/21 at 21:00 Carvedilol (Coreg) 12.5 mg BIDWMEALS PO Last administered on 02/02/21at 09:49; Start 01/17/21 at 17:00 Clonidine HCl (Catapres) 0.2 mg BID PO Last administered on 01/23/21at 09:26; Start 01/17/21 at 21:00; Stop 01/23/21 at 10:30; Status DC Clopidogrel Bisulfate (Plavix) 75 mg DAILY PO Last administered on 02/03/21 08:14; Start 01/17/21 at 13:00 EZETIMIBE (Zetia) 10 mg DAILY PO Last administered on 02/03/21at 08:13; Start 01/17/21 at 13:00 Hydralazine HCl (Apresoline) 50 mg TID PO Last administered on 02/02/21at 14:28; Start 01/17/21 at 14:00 Isosorbide Mononitrate (Imdur) 120 mg DAILY PO Last administered on 02/02/21at 09:47; Start 01/17/21 at 13:00 Minoxidil (Loniten) 2.5 mg BID PO Last administered on 02/02/21at 09:46; Start 01/17/21 at 21:00 Acetaminophen (Tylenol) 650 mg PRN Q6HRS PRN PO MILD PAIN / TEMP > 100.3'F Last administered on 01/28/21at 16:08; Start 01/17/21 at 20:45 Acetaminophen/ Hydrocodone Bitart (Lortab 7.5/325) 1 tab PRN Q6HRS PRN PO MODERATE PAIN Last administered on 02/02/21at 03:46; Start 01/17/21 at 20:45 Sodium Chloride 1,000 ml @ 1,000 mls/hr Q1H PRN IV hypotension; Start 01/18/21 at 11:30; Stop 01/18/21 at 17:29; Status DC Albumin Human 200 ml @ 200 mls/hr 1X PRN PRN IV Hypotension; Start 01/18/21 at 11:30; Stop 01/18/21 at 17:29; Status DC Sodium Chloride 1,000 ml @ 400 mls/hr Q2H30M PRN IV PATENCY; Start 01/18/21 at 11:30; Stop 01/18/21 at 23:29; Status DC Info (PHARMACY MONITORING -- do not chart) 1 each PRN DAILY PRN MC SEE COMMENTS; Start 01/18/21 at 11:30; Status UNV Info (PHARMACY MONITORING -- do not chart) 1 each PRN DAILY PRN MC SEE COMMENTS; Start 01/18/21 at 11:30; Status Cancel Fentanyl Citrate (Fentanyl 2ml Vial) 25 mcg PRN Q3HRS PRN IV PAIN Last administered on 01/21/21at 16:15; Start 01/18/21 at 14:00 Ondansetron HCl (Zofran Odt) 4 mg PRN Q6HRS PRN PO NAUSEA/VOMITING Last administered on 01/21/21at 06:04; Start 01/19/21 at 09:30 Oxycodone HCl (Roxicodone) 10 mg PRN Q4HRS PRN PO SEVERE PAIN Last administered on 01/24/21at 02:35; Start 01/19/21 at 17:30 Simethicone (Gas-X) 80 mg PRN TID PRN PO GAS / BLOATING Last administered on 01/21/21at 06:04; Start 01/19/21 at 21:15 Lorazepam (Ativan) 0.5 mg PRN Q6HRS PRN PO ANXIETY / AGITATION Last administered on 02/02/21at 03:46; Start 01/19/21 at 21:15 Pantoprazole Sodium (Protonix) 40 mg DAILYAC PO Last administered on 01/22/21at 09:37; Start 01/21/21 at 10:00; Stop 01/22/21 at 11:38; Status DC Sodium Chloride 1,000 ml @ 1,000 mls/hr Q1H PRN IV hypotension; Start 01/21/21 at 12:45; Stop 01/21/21 at 18:44; Status DC Albumin Human 200 ml @ 200 mls/hr 1X PRN PRN IV Hypotension; Start 01/21/21 at 12:45; Stop 01/21/21 at 18:44; Status DC Acetaminophen (Tylenol) 500 mg 1X PRN PRN PO MILD PAIN / TEMP > 100.3'F; Start 01/21/21 at 12:45; Stop 01/22/21 at 12:44; Status DC Diphenhydramine HCl (Benadryl) 25 mg 1X PRN PRN IV ITCHING; Start 01/21/21 at 12:45; Stop 01/22/21 at 12:44; Status DC Diphenhydramine HCl (Benadryl) 25 mg 1X PRN PRN IV ITCHING; Start 01/21/21 at 12:45; Stop 01/22/21 at 12:44; Status DC Sodium Chloride 1,000 ml @ 400 mls/hr Q2H30M PRN IV PATENCY; Start 01/21/21 at 12:45; Stop 01/22/21 at 00:44; Status DC Lidocaine HCl (Xylocaine-Mpf 1% 2ml Vial) 2 ml 1X PRN PRN INJ FOR DIALYSIS; Start 01/21/21 at 12:45; Stop 01/22/21 at 12:44; Status DC Info (PHARMACY MONITORING -- do not chart) 1 each PRN DAILY PRN MC SEE COMMENTS; Start 01/21/21 at 12:45; Status UNV Info (PHARMACY MONITORING -- do not chart) 1 each PRN DAILY PRN MC SEE COMMENTS; Start 01/21/21 at 12:45; Status Cancel Bisacodyl (Dulcolax Supp) 10 mg PRN DAILY PRN [place] CONSTIPATION; Start 01/21/21 at 19:30 Senna/Docusate Sodium (Senna Plus) 2 tab PRN BID PRN PO CONSTIPATION Last administered on 01/28/21at 20:32; Start 01/21/21 at 19:30; Stop 01/31/21 at 09:47; Status DC Calcium Carbonate/ Glycine (Tums) 500 mg PRN AFTMEALHC PRN PO INDIGESTION Last administered on 01/24/21at 10:56; Start 01/22/21 at 03:15 Metoclopramide HCl (Reglan Vial) 5 mg PRN Q6HRS PRN IVP NAUSEA/VOMITING; Start 01/22/21 at 11:45; Stop 01/24/21 at 09:22; Status DC Pantoprazole Sodium (PROTONIX VIAL for IV PUSH) 40 mg DAILYAC IVP ; Start 01/23/21 at 07:30; Stop 01/24/21 at 10:51; Status DC Sodium Chloride 1,000 ml @ 1,000 mls/hr Q1H PRN IV hypotension; Start 01/23/21 at 09:30; Stop 01/23/21 at 15:29; Status DC Albumin Human 200 ml @ 200 mls/hr 1X PRN PRN IV Hypotension; Start 01/23/21 at 09:30; Stop 01/23/21 at 15:29; Status DC Sodium Chloride 1,000 ml @ 400 mls/hr Q2H30M PRN IV PATENCY; Start 01/23/21 at 09:30; Stop 01/23/21 at 21:29; Status DC Lidocaine HCl (Xylocaine-Mpf 1% 2ml Vial) 2 ml 1X PRN PRN INJ FOR DIALYSIS; Start 01/23/21 at 09:30; Stop 01/24/21 at 09:29; Status DC Info (PHARMACY MONITORING -- do not chart) 1 each PRN DAILY PRN MC SEE COMMENTS; Start 01/23/21 at 09:30; Status UNV Info (PHARMACY MONITORING -- do not chart) 1 each PRN DAILY PRN MC SEE COMMENTS; Start 01/23/21 at 09:30; Stop 01/27/21 at 10:34; Status DC Clonidine HCl (Catapres Tts-3) 1 patch WEEKLY TD Last administered on 01/30/21at 09:33; Start 01/23/21 at 09:00 Quetiapine Fumarate (SEROquel) 12.5 mg [id number] PO Last administered on 01/23/21at 18:14; Start 01/23/21 at 11:00; Stop 01/24/21 at 09:17; Status DC Quetiapine Fumarate (SEROquel) 25 mg QHS PO Last administered on 01/30/21at 22:52; Start 01/24/21 at 21:00; Stop 01/31/21 at 13:26; Status DC Quetiapine Fumarate (SEROquel) 12.5 mg [id number] PO Last administered on 01/30/21at 09:34; Start 01/24/21 at 09:30; Stop 01/30/21 at 10:08; Status DC Metoclopramide HCl (Reglan Oral Solution) 5 mg TIDACHC PO Last administered on 02/03/21at 08:13; Start 01/24/21 at 09:30 Pantoprazole Sodium (Protonix) 40 mg DAILYAC PO ; Start 01/25/21 at 07:30; Stop 01/28/21 at 10:18; Status DC Sodium Chloride 1,000 ml @ 1,000 mls/hr Q1H PRN IV hypotension; Start 01/25/21 at 14:15; Stop 01/25/21 at 20:14; Status DC Albumin Human 200 ml @ 200 mls/hr 1X PRN PRN IV Hypotension; Start 01/25/21 at 14:15; Stop 01/25/21 at 20:14; Status DC Sodium Chloride 1,000 ml @ 400 mls/hr Q2H30M PRN IV PATENCY; Start 01/25/21 at 14:15; Stop 01/26/21 at 02:14; Status DC Info (PHARMACY MONITORING -- do not chart) 1 each PRN DAILY PRN MC SEE COMMENTS; Start 01/25/21 at 14:15; Status Cancel Info (PHARMACY MONITORING -- do not chart) 1 each PRN DAILY PRN MC SEE COMMENTS; Start 01/25/21 at 14:15; Status Cancel Piperacillin Sod/ Tazobactam Sod 2.25 gm/Sodium Chloride 50 ml @ 100 mls/hr Q8HRS IV Last administered on 01/28/21at 05:59; Start 01/27/21 at 14:00; Stop 01/28/21 at 10:44; Status DC Vancomycin HCl (Vanco Per Pharmacy) 1 each PRN DAILY PRN MC SEE COMMENTS Last administered on 02/03/21at 07:55; Start 01/27/21 at 10:30 Info (PHARMACY MONITORING -- do not chart) 1 each PRN DAILY PRN MC SEE COMMENTS; Start 01/27/21 at 10:30; Status Cancel Vancomycin HCl 1.5 gm/Sodium Chloride 500 ml @ 250 mls/hr 1X ONCE IV Last administered on 01/27/21at 17:47; Start 01/27/21 at 11:00; Stop 01/27/21 at 12:59; Status DC Vancomycin HCl (Vancomycin Random Level) 1 each 1X ONCE MC ; Start 01/29/21 at 05:00; Stop 01/29/21 at 05:01; Status DC Amino Acids/ Electrolytes/ Dextrose 1,000 ml @ 80 mls/hr [id number] IV Last administered on 02/03/21at 00:48; Start 01/27/21 at 18:45 Sodium Chloride 1,000 ml @ 1,000 mls/hr Q1H PRN IV hypotension; Start 01/28/21 at 07:30; Stop 01/28/21 at 13:29; Status DC Albumin Human 200 ml @ 200 mls/hr 1X PRN PRN IV Hypotension; Start 01/28/21 at 07:30; Stop 01/28/21 at 13:29; Status DC Sodium Chloride 1,000 ml @ 400 mls/hr Q2H30M PRN IV PATENCY; Start 01/28/21 at 07:30; Stop 01/28/21 at 19:29; Status DC Info (PHARMACY MONITORING -- do not chart) 1 each PRN DAILY PRN MC SEE COMMENTS; Start 01/28/21 at 07:30; Status UNV Info (PHARMACY MONITORING -- do not chart) 1 each PRN DAILY PRN MC SEE COMMENTS; Start 01/28/21 at 07:30; Status UNV Lansoprazole (Prevacid) 30 mg DAILY PO Last administered on 02/03/21at 08:15; Start 01/29/21 at 09:00 Cefepime HCl (Maxipime) 2 gm TuTh IVP ; Start 01/28/21 at 16:00; Stop 01/30/21 at 10:40; Status DC Cefepime HCl (Maxipime) 3 gm Sa IVP ; Start 02/01/21 at 16:00; Stop 01/30/21 at 10:40; Status DC Vancomycin HCl 500 mg/Sodium Chloride 100 ml @ 100 mls/hr QTUTHSA IV Last administered on 01/30/21at 18:05; Start 01/30/21 at 16:00 Lactobacillus Rhamnosus (Culturelle) 1 cap BID PO Last administered on 02/03/21 at 08:13; Start 01/29/21 at 21:00 Quetiapine Fumarate (SEROquel) 25 mg [id number] PO Last administered on 01/30/21at 18:04; Start 01/30/21 at 16:00; Stop 01/31/21 at 13:26; Status DC Bisacodyl (Dulcolax Supp) 10 mg 1X ONCE VT Last administered on 01/30/21at 1 1:12; Start 01/30/21 at 10:15; Stop 01/30/21 at 10:16; Status DC Piperacillin Sod/ Tazobactam Sod 2.25 gm/Sodium Chloride 50 ml @ 100 mls/hr Q8HRS IV Last administered on 02/03/21at 05:35; Start 01/30/21 at 14:00 Sodium Chloride 1,000 ml @ 1,000 mls/hr Q1H PRN IV hypotension; Start 01/30/21 at 13:00; Stop 01/30/21 at 18:59; Status DC Albumin Human 200 ml @ 200 mls/hr 1X PRN PRN IV Hypotension; Start 01/30/21 at 13:00; Stop 01/30/21 at 18:59; Status DC Acetaminophen (Tylenol) 500 mg 1X PRN PRN PO MILD PAIN / TEMP > 100.3'F; Start 01/30/21 at 13:00; Stop 01/31/21 at 12:59; Status DC Diphenhydramine HCl (Benadryl) 25 mg 1X PRN PRN IV ITCHING; Start 01/30/21 at 13:00; Stop 01/31/21 at 12:59; Status DC Diphenhydramine HCl (Benadryl) 25 mg 1X PRN PRN IV ITCHING; Start 01/30/21 at 13:00; Stop 01/31/21 at 12:59; Status DC Sodium Chloride 1,000 ml @ 400 mls/hr Q2H30M PRN IV PATENCY; Start 01/30/21 at 13:00; Stop 01/31/21 at 00:59; Status DC Lidocaine HCl (Xylocaine-Mpf 1% 2ml Vial) 2 ml 1X PRN PRN INJ FOR DIALYSIS; Start 01/30/21 at 13:00; Stop 01/31/21 at 12:59; Status DC Info (PHARMACY MONITORING -- do not chart) 1 each PRN DAILY PRN MC SEE COMMENTS; Start 01/30/21 at 13:00; Status UNV Info (PHARMACY MONITORING -- do not chart) 1 each PRN DAILY PRN MC SEE COMMENTS; Start 01/30/21 at 13:00; Status UNV Senna/Docusate Sodium (Senna Plus) 2 tab DAILY08 PRN PO CONSTIPATION Last administered on 02/02/21at 09:46; Start 01/31/21 at 09:45 Sodium Chloride 500 ml @ 0 mls/hr 1X ONCE IV Last administered on 01/31/21at 13:43; Start 01/31/21 at 13:30; Stop 01/31/21 at 13:31; Status DC Quetiapine Fumarate (SEROquel) 12.5 mg [id number] PO Last administered on 02/03/21at 08:15; Start 02/01/21 at 16:00 Quetiapine Fumarate (SEROquel) 25 mg QHS PO Last administered on 02/02/21at 21:48; Start 02/01/21 at 21:00 Bisacodyl (Dulcolax Supp) 10 mg 1X ONCE VT Last administered on 02/01/21at 11:12; Start 02/01/21 at 09:45; Stop 02/01/21 at 09:50; Status DC Diphenhydramine HCl (Benadryl) 25 mg 1X PRN PRN IV ITCHING Last administered on 02/01/21at 14:49; Start 02/01/21 at 14:30; Stop 02/02/21 at 14:29; Status DC Diphenhydramine HCl (Benadryl) 25 mg 1X PRN PRN IV ITCHING; Start 02/01/21 at 14:30; Stop 02/02/21 at 14:29; Status DC Info (PHARMACY MONITORING -- do not chart) 1 each PRN DAILY PRN MC SEE COMMENTS; Start 02/01/21 at 14:30 Active Scripts Active Lactulose 20 Gm/30 Ml Solution 20 Gm PO BID 5 Days Culturelle (Lactobacillus Rhamnosus Gg) 1 Each Cap.sprink 1 Cap PO BID Metoclopramide Hcl 5 Mg/1 Ml Vial 5 Mg IV PRN Q6HRS PRN Metoclopramide Hcl 5 Mg/1 Ml Vial 5 Mg IV [id number] Ondansetron Hcl 4 Mg/2 Ml Vial (Ondansetron Hcl/Pf) 4 Mg/2 Ml Vial 4 Mg IV PRN Q6HRS PRN Buspirone Hcl 5 Mg Tablet 5 Mg PO TID Quetiapine Fumarate 25 Mg Tablet 12.5 Mg PO PRN Q6HRS PRN Quetiapine Fumarate 25 Mg Tablet 25 Mg PO QHS Sertraline Hcl 50 Mg Tablet 50 Mg PO DAILY Hydrocodone-Apap 7.5-325 (Hydrocodone Bit/Acetaminophen) 1 Each Tablet 1 Tab PO PRN Q8HRS PRN Fentanyl 0.05 Mg/Ml Vial (Fentanyl Citrate/Pf) 50 Mcg/1 Ml Vial 50 Mcg IV PRN Q4HRS PRN [Darbepoetin Ty In Polysorbat] 60 MCG/0.3 ML Disp.syrin 60 Mcg SQ WEEKLYHS Zyvox (Linezolid) 600 Mg Tablet 600 Mg PO BID Vitamin D3 (Cholecalciferol (Vitamin D3)) 1,000 Unit Tablet 1 Tab PO DAILY [Calcium Acetate] 667 MG Capsule 1,334 Mg PO TIDWMEALS Mapap (Acetaminophen) 500 Mg Tablet 1,000 Mg PO TID Carvedilol (Carvedilol) 12.5 Mg Tablet 12.5 Mg PO BIDWMEALS Minoxidil 2.5 Mg Tablet 2.5 Mg PO BID Isosorbide Mononitrate Er (Isosorbide Mononitrate) 30 Mg Tab.er.24h 120 Mg PO DAILY Montelukast Sodium Tablet (Montelukast Sodium) 10 Mg Tablet 10 Mg PO QHS Polyethylene Glycol 3350 2,500 Gm Powder 17 Gm PO DAILY Novolog Flexpen (Insulin Aspart) 100 Unit/1 Ml Insuln.pen 0 Units SQ TIDAC Take sub q tid ac: BS 151-200=2 unit, 201-250=3 unit, [id number], BS 301-350=6 unit, BS 351-400 =8 unit. BS>401 call MD Renetta Busch 10,000 Units Capsule (Lipase/Protease/Amylase) 1 Each Capsule. 2 Cap PO TIDWMEALS TAke 2 cap tid with meals Nephro-Donny Tablet (Folic Acid/Vitamin B Comp W-C) 0.8 Mg Tablet 1 Tab PO DAILY Benadryl (Diphenhydramine Hcl) 25 Mg Capsule 25 Mg PO PRN Q6HRS PRN Reported Lactulose 10 Gm Packet 10 Gm PO Q6HRS Lidocaine 15 Gm Cream..g. 1 Karma TP TID PRN 30 Days Isosorbide Mononitrate Er (Isosorbide Mononitrate) 60 Mg Tab.er.24h 1 Tab PO DAILY Vitamin A 2,400 Mcg Capsule 1,250 Mcg PO WEEKLY Hydrocodone-Apap 10-325 (Hydrocodone Bit/Acetaminophen) 1 Tab Tablet 1 Tab PO PRN Q6HRS PRN Ultram (Tramadol Hcl) 50 Mg Tablet 1 Tab PO BID MDD 2 Tablet(s) 30 Days Hydralazine Hcl 50 Mg Tablet 1 Tab PO TID Acetaminophen 325 Mg Tablet 2 Tab PO Q6HRS PRN 30 Days Glucose Gel (Dextrose) 38 Gm Gel..gram. 15 Gm PO PRN Sertraline Hcl 100 Mg Tablet 100 Mg PO DAILY Glucagon Emergency Kit (Glucagon,Human Recombinant) 1 Mg Kit 1 Mg IM PRN Senna Plus Tablet (Sennosides/Docusate Sodium) 1 Each Tablet 2 Tab PO QHS 14 Days Zetia (Ezetimibe) 10 Mg Tablet 1 Tab PO DAILY 30 Days Renvela (Sevelamer Carbonate) 800 Mg Tablet 800 Mg PO TIDWMEALS Escitalopram Oxalate 10 Mg Tablet 1 Tab PO DAILY Lyrica (Pregabalin) 50 Mg Capsule 25 Mg PO QHS [creon] 1 Cap PO TIDAC Oxycodone HCl 5 Mg Tablet 5 Mg PO Q8HRS PRN [zenpep] 10 Mg PO TIDAC Clonidine Hcl 0.2 Mg Tablet 0.2 Mg PO BID Zofran (Ondansetron Hcl) 4 Mg Tablet 1 Tab PO Q4HRS PRN Sensipar (Cinacalcet Hcl) 30 Mg Tablet 1 Tab PO DAILY 30 Days Mirtazapine 15 Mg Tablet 1 Tab PO QHS Atorvastatin Calcium 40 Mg Tablet 80 Mg PO HS Minoxidil 2.5 Mg Tablet 2.5 Mg PO DAILY Amlodipine Besylate 10 Mg Tablet 10 Mg PO DAILY Lidocaine PATCH (Lidocaine) 1 Each Adh..patch 1 Each TP DAILY REMOVE AFTER 12 HOURS Proair Hfa Inhaler (Albuterol Sulfate) 8.5 Gm Hfa.aer.ad 2 Puff INH PRN Q6HRS PRN Nitrostat (Nitroglycerin) 0.4 Mg Tab.subl 0.4 Mg SL PRN Q5MIN PRN Plavix (Clopidogrel Bisulfate) 75 Mg Tablet 1 Tab PO DAILY Zoloft (Sertraline Hcl) 100 Mg Tablet 1 Tab PO DAILY Pantoprazole Sodium (Pantoprazole Sodium) 40 Mg Tablet. 1 Tab PO DAILY Losartan Potassium 100 Mg Tablet 100 Mg PO DAILY Aspir 81 (Aspirin) 81 Mg Tablet. 81 Mg PO DAILY Vitals/I & O Vital Sign - Last 24 Hours 02/02/21 02/02/21 02/02/21 02/02/21 09:46 09:47 09:49 09:49 Pulse 75 75 75 75 B/P (MAP) 130/77 130/77 130/77 130/77 02/02/21 02/02/21 02/02/21 02/02/21 11:03 14:28 15:04 16:45 Temp 98.8 98.3 98.8 98.3 Pulse 85 85 72 85 Resp 16 18 B/P (MAP) 138/68 (91) 138/68 92/40 (57) 90/50 Pulse Ox 92 92 O2 Delivery Room Air Room Air 02/02/21 02/02/21 02/02/21 02/03/21 19:50 20:00 22:30 02:30 Temp 97.8 97.9 97.8 97.8 97.9 97.8 Pulse 76 70 70 Resp 18 20 18 B/P (MAP) 86/48 (61) 117/98 (104) 112/42 (65) Pulse Ox 98 97 94 O2 Delivery Room Air Room Air Room Air Room Air 02/03/21 07:40 Temp 98.4 98.4 Pulse 76 Resp 18 B/P (MAP) 114/55 (74) Pulse Ox 99 O2 Delivery Room Air Intake and Output 02/02/21 02/02/21 02/03/21 15:00 23:00 07:00 Intake Total 10 ml 100 ml 0 ml Output Total 0 ml Balance 10 ml 100 ml 0 ml Justicifation of Admission Dx: Justifications for Admission: Justification of Admission Dx: N/A MARINA REYNOSO MD Feb 03, 2021 09:02
--- NOTE | 2021-02-03 09:08 | PDOC ---
IM PROGRESS NOTES- Subjective Subjective Patient is not eating. She is a poor historian. Gets agitated during dialysis. Objective Vitals/I&O Vital Signs Date Time Temp Pulse Resp B/P (MAP) Pulse Ox O2 Delivery O2 Flow Rate FiO2 02/03/21 07:40 98.4 76 18 114/55 (74) 99 Room Air 98.4 02/02/21 08:00 2.0 I & O 02/02/21 02/02/21 02/03/21 15:00 23:00 07:00 Intake Total 10 ml 100 ml 0 ml Output Total 0 ml Balance 10 ml 100 ml 0 ml Physical Exam Physical Exam General Appearance - alert and in no distress Chest - decreased breath sounds at bases Heart - S1 and S2 normal Abdomen - soft, non tender Neurological - alert and confused Musculoskeletal - generalized weakness Extremities - no edema Labs Laboratory Tests Test 02/02/21 11:14 02/02/21 16:45 02/02/21 20:48 02/03/21 07:30 Glucose (Fingerstick) 132 mg/dL (70-99) H 160 mg/dL (70-99) H 137 mg/dL (70-99) H Sodium Level 133 mmol/L (136-145) L Potassium Level 4.9 mmol/L (3.5-5.1) Chloride Level 97 mmol/L (98-107) L Carbon Dioxide Level 27 mmol/L (21-32) Anion Gap 9 (6-14) Blood Urea Nitrogen 52 mg/dL (7-20) H Creatinine 6.2 mg/dL (0.6-1.0) H Estimated GFR (Cockcroft-Gault) 8.4 BUN/Creatinine Ratio 8 (6-20) Glucose Level 105 mg/dL (70-99) H Calcium Level 8.6 mg/dL (8.5-10.1) Total Bilirubin 0.5 mg/dL (0.2-1.0) Aspartate Amino Transferase (AST) 33 U/L (15-37) Alanine Aminotransferase (ALT) 38 U/L (14-59) Alkaline Phosphatase 88 U/L (46-116) Total Protein 5.9 g/dL (6.4-8.2) L Albumin 2.4 g/dL (3.4-5.0) L Albumin/Globulin Ratio 0.7 (1.0-1.7) L Test 8/30/21 07:39 Glucose (Fingerstick) 105 mg/dL (70-99) H Laboratory Tests 02/03/21 07:30 Assessment Assessment 1. Acute metabolic encephalopathy. Continue to give her lorazepam as needed. Monitor closely in the Intensive Care Unit. Consult Dr. Martinez for neurology evaluation and management. Likely due to hypertensive crisis.Mental status is improving. 2. Acute hypertensive crisis. Patient was initially treated with Cardene IV drip. Consult Dr. Leahy for cardiology evaluation and management. 3. Elevated troponin. This may be due to demand ischemia and also end-stage renal disease may be contributing. 4. End-stage renal disease, on hemodialysis. 5. Coronary artery disease. 6. Diastolic congestive heart failure. 7. Physical deconditioning. 8. Asthma. 9. Gastroesophageal reflux disease. 10. Hyperlipidemia. 11. Severe pulmonary hypertension. 12. 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 13. History of depression. 14. 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 Monitor blood sugar. 15. History of secondary hyperparathyroidism. 16. Marijuana abuse Plan: COVID-19 infection. SARS-CoV-2 PCR test is positive. This may be also contributing to patient's poor appetite, body aches and confusion.I will also consult Dr. Ray Nino for Infectious Disease evaluation and management because of her fever of 103 degrees Fahrenheit. Her chest x-ray, urinalysis as well as SARS-CoV-2 antigen test is negative. Consult Dr. Nino for infectious disease evaluation and management. Patient is running low-grade fever. WBC count is 10.9. On IV Vancomycin. Cefepime has be en changed to IV Zosyn. Bl c/s 1/3 Gram + cocci- ? contaminant. CT abd/pelvis 01/28/21 1. Small right pleural effusion and right greater than left posterior dependent and basilar atelectasis and possible superimposed pleural parenchymal scarring. There is no consolidated pneumonia. 2. Soft tissue stranding and small amount of soft tissue gas within the right axilla and base of the right neck. Correlate for recent instrumentation or catheterization. 3. Moderate colonic stool. 4. Mild bladder wall thickening. This may be due to underdistention or cystitis. Correlate with urinalysis. 5. Trace nonspecific pelvic free fluid and mild body wall edema. 6. Renal atrophy. US rt UE- negative for DVT. Acute metabolic encephalopathy-most likely due to COVID-19 infection and may be multifactorial.Slightly better. Increase Seroquel to 25 mg p.o. twice daily and 25 mg at bedtime. Severe malnutrition-patient is not eating but also does not allow any IV fluids or IV access. I have encouraged her to drink Nepro. Rt arm swollen. Change IV to PICC line. Started on PPN yesterday. D/w staff. place midline and restarted PPN. Patient has constipation and has stool on CT of the abdomen. Has abdominal pain also. Change senna S to 2 tablets daily. Prognosis of this patient is extremely poor due to her multiple medical problems. Hypotension on January 31, 2021. Corrected with IV fluids. Seroquel was held yesterday because of low blood pressure but I will restart it today at a lower dose as her behavior is getting worse again. Constipation-Dulcolax suppository x1 today. D/w daughter Kerri -about patient's condition,treatment,options,prognosis on 02/03/21. Plan Plan For more details regarding further plans, please refer to the orders. Justifications for Admission Other Justification GAURAV DANG MD Feb 03, 2021 09:08
--- NOTE | 2021-02-03 09:58 | PDOC ---
Infectious Disease Note Subjective Subjective pt is awake, says she is ok, some body ache ROS ROS no n/v/d/sob Vital Sign Vital Signs Vital Signs Date Time Temp Pulse Resp B/P (MAP) Pulse Ox O2 Delivery O2 Flow Rate FiO2 02/03/21 07:40 98.4 76 18 114/55 (74) 99 Room Air 98.4 02/02/21 08:00 2.0 Physical Exam PHYSICAL EXAM GEN: Patient alert awake appears comfortable on room air HEENT: Normocephalic atraumatic, NECK supple no meningismus LUNGS: Decreased breath sound at the bases , no accessory muscle use HEART: S1, S2 regular. ABDOMEN: Soft, nontender, bowel sounds present Spine: No spine tenderness, Chest wall and axilla no crepitus, or warmth no pereira EXTREMITIES: Right upper extremity mild edema present no cyanosis. Fistula site clean SKIN: Unremarkable. NEUROLOGIC: More alert, moves all 4 extremities Pscyh calm Midline clean Labs Lab Laboratory Tests Test 02/02/21 11:14 02/02/21 16:45 02/02/21 20:48 02/03/21 07:30 Glucose (Fingerstick) 132 mg/dL (70-99) 160 mg/dL (70-99) 137 mg/dL (70-99) Sodium Level 133 mmol/L (136-145) Potassium Level 4.9 mmol/L (3.5-5.1) Chloride Level 97 mmol/L (98-107) Carbon Dioxide Level 27 mmol/L (21-32) Anion Gap 9 (6-14) Blood Urea Nitrogen 52 mg/dL (7-20) Creatinine 6.2 mg/dL (0.6-1.0) Estimated GFR (Cockcroft-Gault) 8.4 BUN/Creatinine Ratio 8 (6-20) Glucose Level 105 mg/dL (70-99) Calcium Level 8.6 mg/dL (8.5-10.1) Total Bilirubin 0.5 mg/dL (0.2-1.0) Aspartate Amino Transf (AST/SGOT) 33 U/L (15-37) Alanine Aminotransferase (ALT/SGPT) 38 U/L (14-59) Alkaline Phosphatase 88 U/L (46-116) Total Protein 5.9 g/dL (6.4-8.2) Albumin 2.4 g/dL (3.4-5.0) Albumin/Globulin Ratio 0.7 (1.0-1.7) Test 02/03/21 07:39 Glucose (Fingerstick) 105 mg/dL (70-99) Micro Microbiology 01/27/21 Blood Culture - Final, Complete Objective Assessment 1. COVID-19 positive. 2. Encephalopathy , improving 3. End-stage renal disease, on hemodialysis through left upper extremity fistula. 4. Coronary artery disease. 5. Hypertension. 6. Coronary artery disease. 7. h/o Cerebrovascular accident in the past. 8.Gastroparesis, nausea and vomiting resolved 9. Leucocytosis improving 10. Bacteremia 1 out of 3 bottles staph epidermidis possibly contaminant Plan Plan of Care change antibiotics to po augmentin WBC is improving Cont supportive care monitor labs and cultures Maintain aspiration precautions Discussed with nursing staff ILIANA BA MD Feb 03, 2021 09:58
[2021-02-03 10:38] VITALS: BP 176/49
--- NOTE | 2021-02-03 10:55 | PDOC ---
DATE OF SERVICE DATE: 02/03/21 TIME: 10:55 OBJECTIVE Vital Signs Vital Signs Date Time Temp Pulse Resp B/P (MAP) Pulse Ox O2 Delivery O2 Flow Rate FiO2 02/03/21 10:38 98.0 84 18 176/49 (91) 92 Room Air 98.0 02/02/21 08:00 2.0 I & 0 Intake and Output 02/03/21 07:00 Intake Total 110 ml Output Total 0 ml Balance 110 ml Intake Oral 110 ml Output Urine Total 0 ml PHYSICAL EXAM Physical Exam GEN: NAD HEENT: Normocephalic atraumatic,OM moist NECK supple LUNGS: Decreased breath sound at the bases , no accessory muscle use HEART: S1, S2 regular. ABDOMEN: Soft, nontender, bowel sounds present no pereira EXTREMITIES: Right upper extremity mild edema present , AVF + SKIN: Unremarkable. NEUROLOGIC: alert, moves all 4 extremities DIAGNOSIS/ASSESSMENT Assessment & Plan ESRD on HD TTS , Currently no emergent indication for dialysis today Access Lt Arm AVF Anemia- EDGAR on hold COVID-19 positive. Encephalopathy , improving Coronary artery disease. Hypertension. h/o Cerebrovascular accident in the past. Gastroparesis-nausea and vomiting resolved COMMENT/RELEVANT DATA Meds Current Medications Medications (Trade) Dose Ordered Sig/Srinath Start Time Stop Time Status Last Admin Dose Admin Acetaminophen (Tylenol) 500 mg 1X PRN PRN 01/30/21 13:00 01/31/21 12:59 DC Acetaminophen/ Hydrocodone Bitart (Lortab 7.5/325) 1 tab PRN Q6HRS PRN 01/17/21 20:45 02/02/21 03:46 1 TAB Albumin Human 200 ml @ 200 mls/hr 1X PRN PRN 01/30/21 13:00 01/30/21 18:59 DC Amino Acids/ Electrolytes/ Dextrose 1,000 ml @ 80 mls/hr [id number] 01/27/21 18:45 02/03/21 00:48 80 MLS/HR Amoxicillin/ Clavulanate Potassium (Augmentin 500/ 125mg) 1 tab DAILY 02/04/21 14:00 Aspirin (Aspirin Rectal Supp) 300 mg 1X ONCE 01/16/21 11:15 01/16/21 11:16 DC 01/16/21 12:05 300 MG Aspirin (Ecotrin) 81 mg DAILY 01/17/21 13:00 02/03/21 08:14 81 MG Atorvastatin Calcium (Lipitor) 80 mg HS 01/17/21 21:00 02/02/21 21:47 80 MG Bisacodyl (Dulcolax Supp) 10 mg 1X ONCE 02/01/21 09:45 02/01/21 09:50 DC 02/01/21 11:12 10 MG Calcium Carbonate/ Glycine (Tums) 500 mg PRN AFTMEALHC PRN 01/22/21 03:15 01/24/21 10:56 500 MG Carvedilol (Coreg) 12.5 mg BIDWMEALS 01/17/21 17:00 02/02/21 09:49 12.5 MG Cefepime HCl (Maxipime) 3 gm Sa 02/01/21 16:00 01/30/21 10:40 DC Clonidine HCl (Catapres Tts-3) 1 patch WEEKLY 01/23/21 09:00 01/30/21 09:33 1 PATCH Clonidine HCl (Catapres) 0.2 mg BID 01/17/21 21:00 01/23/21 10:30 DC 01/23/21 09:26 0.2 MG Clopidogrel Bisulfate (Plavix) 75 mg DAILY 01/17/21 13:00 02/03/21 08:14 75 MG Dextrose (Dextrose 50%-Water Syringe) 12.5 gm PRN Q15MIN PRN 01/16/21 11:30 Diphenhydramine HCl (Benadryl) 25 mg 1X PRN PRN 02/01/21 14:30 02/02/21 14:29 DC EZETIMIBE (Zetia) 10 mg DAILY 01/17/21 13:00 02/03/21 08:13 10 MG Fentanyl Citrate (Fentanyl 2ml Vial) 25 mcg PRN Q3HRS PRN 01/18/21 14:00 01/21/21 16:15 25 MCG Hydralazine HCl (Apresoline Inj) 20 mg PRN Q4HRS PRN 01/16/21 13:00 01/16/21 13:30 20 MG Hydralazine HCl (Apresoline) 50 mg TID 01/17/21 14:00 02/02/21 14:28 50 MG Info (PHARMACY MONITORING -- do not chart) 1 each PRN DAILY PRN 02/01/21 14:30 Insulin Human Lispro (HumaLOG) 0-5 UNITS TIDWMEALS 01/16/21 12:00 Isosorbide Mononitrate (Imdur) 120 mg DAILY 01/17/21 13:00 02/02/21 09:47 120 MG Labetalol HCl (Normodyne Iv Push) 10 mg 1X ONCE 01/16/21 11:00 01/16/21 11:01 DC 01/16/21 12:03 10 MG Lactobacillus Rhamnosus (Culturelle) 1 cap BID 01/29/21 21:00 02/03/21 08:13 1 CAP Lansoprazole (Prevacid) 30 mg DAILY 01/29/21 09:00 02/03/21 08:15 30 MG Lidocaine HCl (Xylocaine-Mpf 1% 2ml Vial) 2 ml 1X PRN PRN 01/30/21 13:00 01/31/21 12:59 DC Lorazepam (Ativan Inj) 1 mg PRN Q4HRS PRN 01/16/21 12:45 02/01/21 15:07 1 MG Lorazepam (Ativan) 0.5 mg PRN Q6HRS PRN 01/19/21 21:15 02/02/21 03:46 0.5 MG Metoclopramide HCl (Reglan Oral Solution) 5 mg TIDACHC 01/24/21 09:30 02/03/21 08:13 5 MG Metoclopramide HCl (Reglan Vial) 5 mg PRN Q6HRS PRN 01/22/21 11:45 01/24/21 09:22 DC Minoxidil (Loniten) 2.5 mg BID 01/17/21 21:00 02/02/21 09:46 2.5 MG Nicardipine HCl 50 mg/Sodium Chloride 250 ml @ 25 mls/hr CONT PRN 01/16/21 14:00 01/17/21 16:08 DC 01/17/21 04:25 25 MLS/HR Ondansetron HCl (Zofran Odt) 4 mg PRN Q6HRS PRN 01/19/21 09:30 01/21/21 06:04 4 MG Ondansetron HCl (Zofran) 4 mg PRN Q8HRS PRN 01/16/21 11:30 01/17/21 11:29 DC Oxycodone HCl (Roxicodone) 10 mg PRN Q4HRS PRN 01/19/21 17:30 01/24/21 02:35 10 MG Pantoprazole Sodium (PROTONIX VIAL for IV PUSH) 40 mg DAILYAC 01/23/21 07:30 01/24/21 10:51 DC Pantoprazole Sodium (Protonix) 40 mg DAILYAC 01/25/21 07:30 01/28/21 10:18 DC Piperacillin Sod/ Tazobactam Sod 2.25 gm/Sodium Chloride 50 ml @ 100 mls/hr Q8HRS 01/30/21 14:00 02/03/21 09:57 DC 02/03/21 05:35 100 MLS/HR Quetiapine Fumarate (SEROquel) 25 mg QHS 02/01/21 21:00 02/02/21 21:48 25 MG Senna/Docusate Sodium (Senna Plus) 2 tab DAILY08 PRN 01/31/21 09:45 02/02/21 09:46 2 TAB Simethicone (Gas-X) 80 mg PRN TID PRN 01/19/21 21:15 01/21/21 06:04 80 MG Sodium Chloride 500 ml @ 0 mls/hr 1X ONCE 01/31/21 13:30 01/31/21 13:31 DC 01/31/21 13:43 999 MLS/HR Vancomycin HCl (Vanco Per Pharmacy) 1 each PRN DAILY PRN 01/27/21 10:30 02/03/21 09:57 DC 02/03/21 07:55 1 EACH Vancomycin HCl (Vancomycin Random Level) 1 each 1X ONCE 01/29/21 05:00 01/29/21 05:01 DC Vancomycin HCl 1.5 gm/Sodium Chloride 500 ml @ 250 mls/hr 1X ONCE 01/27/21 11:00 01/27/21 12:59 DC 01/27/21 17:47 250 MLS/HR Vancomycin HCl 500 mg/Sodium Chloride 100 ml @ 100 mls/hr QTUTHSA 01/30/21 16:00 02/03/21 09:57 DC 01/30/21 18:05 100 MLS/HR Ziprasidone (Geodon Im) 20 mg 1X ONCE 01/16/21 08:00 01/16/21 08:05 DC 01/16/21 08:08 20 MG Lab Laboratory Tests Test 02/02/21 11:14 02/02/21 16:45 02/02/21 20:48 02/03/21 07:30 Glucose (Fingerstick) 132 mg/dL (70-99) 160 mg/dL (70-99) 137 mg/dL (70-99) Sodium Level 133 mmol/L (136-145) Potassium Level 4.9 mmol/L (3.5-5.1) Chloride Level 97 mmol/L (98-107) Carbon Dioxide Level 27 mmol/L (21-32) Anion Gap 9 (6-14) Blood Urea Nitrogen 52 mg/dL (7-20) Creatinine 6.2 mg/dL (0.6-1.0) Estimated GFR (Cockcroft-Gault) 8.4 BUN/Creatinine Ratio 8 (6-20) Glucose Level 105 mg/dL (70-99) Calcium Level 8.6 mg/dL (8.5-10.1) Total Bilirubin 0.5 mg/dL (0.2-1.0) Aspartate Amino Transf (AST/SGOT) 33 U/L (15-37) Alanine Aminotransferase (ALT/SGPT) 38 U/L (14-59) Alkaline Phosphatase 88 U/L (46-116) Total Protein 5.9 g/dL (6.4-8.2) Albumin 2.4 g/dL (3.4-5.0) Albumin/Globulin Ratio 0.7 (1.0-1.7) Test 02/03/21 07:39 Glucose (Fingerstick) 105 mg/dL (70-99) Results All relevant outside records, renal labs, imaging studies, telemetry/EKG's were reviewed. Justicifation of Admission Dx: Justifications for Admission: Justification of Admission Dx: N/A RY ESCOBAR MD Feb 03, 2021 10:55
[2021-02-03] MEDS: CARVEDILOL 12.5 MG TABLET. PO SCH ×2 (11:50→17:32)
--- NOTE | 2021-02-03 13:10 | PDOC ---
Date of Service: DATE: 02/03/21 TIME: 13:08 Objective: Objective: D/w nurse - pt prefers to be naked and left alone. Not eating much. Other notes mention bodyaches and agitation. Vital Signs: Vital Signs Date Time Temp Pulse Resp B/P (MAP) Pulse Ox O2 Delivery O2 Flow Rate FiO2 02/03/21 11:50 176/53 02/03/21 10:38 98.0 84 18 92 Room Air 98.0 02/02/21 08:00 2.0 Labs: Laboratory Tests Test 02/02/21 16:45 02/02/21 20:48 02/03/21 07:30 02/03/21 07:39 Glucose (Fingerstick) 160 mg/dL 137 mg/dL 105 mg/dL Sodium Level 133 mmol/L Potassium Level 4.9 mmol/L Chloride Level 97 mmol/L Carbon Dioxide Level 27 mmol/L Anion Gap 9 Blood Urea Nitrogen 52 mg/dL Creatinine 6.2 mg/dL Estimated GFR (Cockcroft-Gault) 8.4 BUN/Creatinine Ratio 8 Glucose Level 105 mg/dL Calcium Level 8.6 mg/dL Total Bilirubin 0.5 mg/dL Aspartate Amino Transf (AST/SGOT) 33 U/L Alanine Aminotransferase (ALT/SGPT) 38 U/L Alkaline Phosphatase 88 U/L Total Protein 5.9 g/dL Albumin 2.4 g/dL Albumin/Globulin Ratio 0.7 Test 02/03/21 11:07 Glucose (Fingerstick) 137 mg/dL BLOOD CULTURE Final NO GROWTH AFTER 5 DAYS PE: GEN: exam deferred A/P: COVID, encephalopathy Chronic anemia (stable) Chronic abd pain, GERD, gastroparesis -- Encourage eating. Justicifation of Admission Dx: Justifications for Admission: Justification of Admission Dx: N/A ALL GONZALEZ Feb 03, 2021 13:10
--- NOTE | 2021-02-03 13:45 | NUR ---
SS following up with discharge planning. SS reviewed pt chart and discussed with pt RN. Pt is currently on room air. COVID19 recovered now. Pt on PO antibiotics. PT/OT recommended [facility]. Pt accepted at [facility]. Insurance authorization received. Per physician, pt is still confused and agitated and is not eating. Pt on Clinimix. Per, physician pt not ready for discharge at this time. SS discussed with pt's daughter, Kerri Sweeney, . Pt's daughter reported that if pt does not eat and they have to resort to PEG or other feeding option she is concerned that pt will pull tube or lines out. Pt's daughter reported that family has discussed the possibility of hospice services as well. Pt's daughter reported that she and her brother will discuss with pt and will notify SS of decisions made. SS will continue to follow for discharge planning.
[2021-02-03 14:45] VITALS: BP 126/69
[2021-02-03] MEDS: ISOSORBIDE MONONITRATE ER 30 MG TAB.ER.24H PO SCH (15:23)
[2021-02-03] MEDS: MINOXIDIL 2.5 MG TABLET PO SCH ×2 (15:23→22:11)
[2021-02-03] MEDS: CALCIUM CARBONATE 500 MG TAB.CHEW PO PRN (17:32)
[2021-02-03] MEDS: ONDANSETRON ODT 4 MG TAB.RAPDIS. PO PRN (17:32)
[2021-02-03 19:45] VITALS: BP 142/48
--- NOTE | 2021-02-03 19:55 | NUR ---
Pt yelling out, pt c/o abd. pain assessment completed vss poc explained pt reoriented to surroundings and call light will medicate pt and continue to monitor pt.
[2021-02-03] MEDS: LORazepam 0.5 MG TABLET PO PRN (20:24)
[2021-02-03] MEDS: HYDROcodone/APAP 7.5/325MG 1 TAB TABLET PO PRN (20:25)
[2021-02-03] MEDS: ATORVASTATIN CALCIUM 40 MG TABLET. PO SCH (22:11)
[2021-02-03 22:15] VITALS: BP 95/42
[2021-02-04] VITALS (8 sets, daily range): BP systolic 105–182; BP diastolic 39–96
[2021-02-04] MEDS: METOCLOPRAMIDE ORAL SOLN 10 MG/10 ML SOLUTION. PO SCH ×5 (05:33→22:38)
[2021-02-04] MEDS: LORazepam 0.5 MG TABLET PO PRN ×2 (05:33→22:30)
[2021-02-04] MEDS: HYDROcodone/APAP 7.5/325MG 1 TAB TABLET PO PRN ×3 (05:34→22:31)
[2021-02-04 05:44] LABS: ALBUMIN 2.2 g/dL (3.4-5.0); ALBUMIN/GLOBULIN RATIO 0.6 (1.0-1.7); CALCIUM 8.2 mg/dL (8.5-10.1); CREATININE 7.4 mg/dL (0.6-1.0); GFR 6.8; POTASSIUM 5.4 mmol/L (3.5-5.1); TOTAL BILIRUBIN 0.4 mg/dL (0.2-1.0); TOTAL PROTEIN 5.6 g/dL (6.4-8.2)
[2021-02-04] MEDS: INSULIN LISPRO 300 UNITS/3 ML VIAL. SQ SCH ×3 (08:00→17:00)
[2021-02-04] MEDS: EZETIMIBE 10 MG TABLET. PO SCH (09:15)
[2021-02-04] MEDS: LACTOBACILLUS RHAMNOSUS GG 1 CAPSULE. PO SCH ×2 (09:15→22:31)
[2021-02-04] MEDS: ASPIRIN ENTERIC COATED 81 MG TABLET.DR. PO SCH (09:15)
[2021-02-04] MEDS: CLOPIDOGREL BISULFATE 75 MG TABLET PO SCH (09:15)
[2021-02-04] MEDS: QUEtiapine 25 MG TABLET. PO SCH ×3 (09:15→22:30)
[2021-02-04] MEDS: LANSOPRAZOLE 30 MG TAB.RAP.DR PO SCH (09:15)
[2021-02-04] MEDS: CARVEDILOL 12.5 MG TABLET. PO SCH ×3 (09:18→18:13)
--- NOTE | 2021-02-04 09:45 | PDOC ---
DATE OF SERVICE DATE: 02/04/21 TIME: 09:45 SUBJECTIVE ROS stable OBJECTIVE Vital Signs Vital Signs Date Time Temp Pulse Resp B/P (MAP) Pulse Ox O2 Delivery O2 Flow Rate FiO2 02/04/21 09:18 71 123/43 02/04/21 07:31 98.7 16 92 Room Air 98.7 02/04/21 02:45 2.0 I & 0 Intake and Output 02/04/21 07:00 Intake Total 110 ml Output Total 0 ml Balance 110 ml Intake Oral 110 ml Output Urine Total 0 ml PHYSICAL EXAM Physical Exam GEN: NAD HEENT: Normocephalic atraumatic,OM moist NECK supple LUNGS: Decreased breath sound at the bases , no accessory muscle use HEART: S1, S2 regular. ABDOMEN: Soft, nontender, bowel sounds present no pereira EXTREMITIES: Right upper extremity mild edema present , AVF + SKIN: Unremarkable. NEUROLOGIC: alert, moves all 4 extremities DIAGNOSIS/ASSESSMENT Assessment & Plan ESRD on HD TTS , dialysis today, discussed treatment plan with DRn Access Lt Arm AVF Anemia- EDGAR on hold COVID-19 positive. Encephalopathy , improving Coronary artery disease. Hypertension. h/o Cerebrovascular accident in the past. Gastroparesis-nausea and vomiting resolved COMMENT/RELEVANT DATA Meds Current Medications Medications (Trade) Dose Ordered Sig/Srinath Start Time Stop Time Status Last Admin Dose Admin Acetaminophen (Tylenol) 500 mg 1X PRN PRN 01/30/21 13:00 01/31/21 12:59 DC Acetaminophen/ Hydrocodone Bitart (Lortab 7.5/325) 1 tab PRN Q6HRS PRN 01/17/21 20:45 02/04/21 05:34 1 TAB Albumin Human 200 ml @ 200 mls/hr 1X PRN PRN 01/30/21 13:00 01/30/21 18:59 DC Amino Acids/ Electrolytes/ Dextrose 1,000 ml @ 80 mls/hr [id number] 01/27/21 18:45 02/03/21 22:10 80 MLS/HR Amoxicillin/ Clavulanate Potassium (Augmentin 500/ 125mg) 1 tab DAILY 02/04/21 14:00 Aspirin (Aspirin Rectal Supp) 300 mg 1X ONCE 01/16/21 11:15 01/16/21 11:16 DC 01/16/21 12:05 300 MG Aspirin (Ecotrin) 81 mg DAILY 01/17/21 13:00 02/04/21 09:15 81 MG Atorvastatin Calcium (Lipitor) 80 mg HS 01/17/21 21:00 02/03/21 22:11 80 MG Bisacodyl (Dulcolax Supp) 10 mg 1X ONCE 02/01/21 09:45 02/01/21 09:50 DC 02/01/21 11:12 10 MG Calcium Carbonate/ Glycine (Tums) 500 mg PRN AFTMEALHC PRN 01/22/21 03:15 02/03/21 17:32 500 MG Carvedilol (Coreg) 12.5 mg BIDWMEALS 01/17/21 17:00 02/04/21 09:18 12.5 MG Cefepime HCl (Maxipime) 3 gm Sa 02/01/21 16:00 01/30/21 10:40 DC Clonidine HCl (Catapres Tts-3) 1 patch WEEKLY 01/23/21 09:00 01/30/21 09:33 1 PATCH Clonidine HCl (Catapres) 0.2 mg BID 01/17/21 21:00 01/23/21 10:30 DC 01/23/21 09:26 0.2 MG Clopidogrel Bisulfate (Plavix) 75 mg DAILY 01/17/21 13:00 02/04/21 09:15 75 MG Dextrose (Dextrose 50%-Water Syringe) 12.5 gm PRN Q15MIN PRN 01/16/21 11:30 Diphenhydramine HCl (Benadryl) 25 mg 1X PRN PRN 02/01/21 14:30 02/02/21 14:29 DC EZETIMIBE (Zetia) 10 mg DAILY 01/17/21 13:00 02/04/21 09:15 10 MG Fentanyl Citrate (Fentanyl 2ml Vial) 25 mcg PRN Q3HRS PRN 01/18/21 14:00 01/21/21 16:15 25 MCG Hydralazine HCl (Apresoline Inj) 20 mg PRN Q4HRS PRN 01/16/21 13:00 01/16/21 13:30 20 MG Hydralazine HCl (Apresoline) 50 mg TID 01/17/21 14:00 02/04/21 09:18 50 MG Info (PHARMACY MONITORING -- do not chart) 1 each PRN DAILY PRN 02/01/21 14:30 Insulin Human Lispro (HumaLOG) 0-5 UNITS TIDWMEALS 01/16/21 12:00 Isosorbide Mononitrate (Imdur) 120 mg DAILY 01/17/21 13:00 02/03/21 15:23 120 MG Labetalol HCl (Normodyne Iv Push) 10 mg 1X ONCE 01/16/21 11:00 01/16/21 11:01 DC 01/16/21 12:03 10 MG Lactobacillus Rhamnosus (Culturelle) 1 cap BID 01/29/21 21:00 02/04/21 09:15 1 CAP Lansoprazole (Prevacid) 30 mg DAILY 01/29/21 09:00 02/04/21 09:15 30 MG Lidocaine HCl (Xylocaine-Mpf 1% 2ml Vial) 2 ml 1X PRN PRN 01/30/21 13:00 01/31/21 12:59 DC Lorazepam (Ativan Inj) 1 mg PRN Q4HRS PRN 01/16/21 12:45 02/01/21 15:07 1 MG Lorazepam (Ativan) 0.5 mg PRN Q6HRS PRN 01/19/21 21:15 02/04/21 05:33 0.5 MG Metoclopramide HCl (Reglan Oral Solution) 5 mg TIDACHC 01/24/21 09:30 02/04/21 05:33 5 MG Metoclopramide HCl (Reglan Vial) 5 mg PRN Q6HRS PRN 01/22/21 11:45 01/24/21 09:22 DC Minoxidil (Loniten) 2.5 mg BID 01/17/21 21:00 02/03/21 22:11 2.5 MG Nicardipine HCl 50 mg/Sodium Chloride 250 ml @ 25 mls/hr CONT PRN 01/16/21 14:00 01/17/21 16:08 DC 01/17/21 04:25 25 MLS/HR Ondansetron HCl (Zofran Odt) 4 mg PRN Q6HRS PRN 01/19/21 09:30 02/03/21 17:32 4 MG Ondansetron HCl (Zofran) 4 mg PRN Q8HRS PRN 01/16/21 11:30 01/17/21 11:29 DC Oxycodone HCl (Roxicodone) 10 mg PRN Q4HRS PRN 01/19/21 17:30 01/24/21 02:35 10 MG Pantoprazole Sodium (PROTONIX VIAL for IV PUSH) 40 mg DAILYAC 01/23/21 07:30 01/24/21 10:51 DC Pantoprazole Sodium (Protonix) 40 mg DAILYAC 01/25/21 07:30 01/28/21 10:18 DC Piperacillin Sod/ Tazobactam Sod 2.25 gm/Sodium Chloride 50 ml @ 100 mls/hr Q8HRS 01/30/21 14:00 02/03/21 09:57 DC 02/03/21 05:35 100 MLS/HR Quetiapine Fumarate (SEROquel) 25 mg QHS 02/01/21 21:00 02/03/21 22:11 25 MG Senna/Docusate Sodium (Senna Plus) 2 tab DAILY08 PRN 01/31/21 09:45 02/02/21 09:46 2 TAB Simethicone (Gas-X) 80 mg PRN TID PRN 01/19/21 21:15 01/21/21 06:04 80 MG Sodium Chloride 500 ml @ 0 mls/hr 1X ONCE 01/31/21 13:30 01/31/21 13:31 DC 01/31/21 13:43 999 MLS/HR Vancomycin HCl (Vanco Per Pharmacy) 1 each PRN DAILY PRN 01/27/21 10:30 02/03/21 09:57 DC 02/03/21 07:55 1 EACH Vancomycin HCl (Vancomycin Random Level) 1 each 1X ONCE 01/29/21 05:00 01/29/21 05:01 DC Vancomycin HCl 1.5 gm/Sodium Chloride 500 ml @ 250 mls/hr 1X ONCE 01/27/21 11:00 01/27/21 12:59 DC 01/27/21 17:47 250 MLS/HR Vancomycin HCl 500 mg/Sodium Chloride 100 ml @ 100 mls/hr QTUTHSA 01/30/21 16:00 02/03/21 09:57 DC 01/30/21 18:05 100 MLS/HR Ziprasidone (Geodon Im) 20 mg 1X ONCE 01/16/21 08:00 01/16/21 08:05 DC 01/16/21 08:08 20 MG Lab Laboratory Tests Test 02/03/21 11:07 02/03/21 16:04 02/03/21 20:31 02/04/21 04:30 Glucose (Fingerstick) 137 mg/dL (70-99) 145 mg/dL (70-99) 125 mg/dL (70-99) Sodium Level 132 mmol/L (136-145) Potassium Level 5.4 mmol/L (3.5-5.1) Chloride Level 98 mmol/L (98-107) Carbon Dioxide Level 26 mmol/L (21-32) Anion Gap 8 (6-14) Blood Urea Nitrogen 67 mg/dL (7-20) Creatinine 7.4 mg/dL (0.6-1.0) Estimated GFR (Cockcroft-Gault) 6.8 BUN/Creatinine Ratio 9 (6-20) Glucose Level 146 mg/dL (70-99) Calcium Level 8.2 mg/dL (8.5-10.1) Total Bilirubin 0.4 mg/dL (0.2-1.0) Aspartate Amino Transf (AST/SGOT) 47 U/L (15-37) Alanine Aminotransferase (ALT/SGPT) 35 U/L (14-59) Alkaline Phosphatase 79 U/L (46-116) Total Protein 5.6 g/dL (6.4-8.2) Albumin 2.2 g/dL (3.4-5.0) Albumin/Globulin Ratio 0.6 (1.0-1.7) Test 02/04/21 07:51 Glucose (Fingerstick) 151 mg/dL (70-99) Results All relevant outside records, renal labs, imaging studies, telemetry/EKG's were reviewed. Justicifation of Admission Dx: Justifications for Admission: Justification of Admission Dx: N/A RY ESCOBAR MD Feb 04, 2021 09:45
--- NOTE | 2021-02-04 10:39 | PDOC ---
IM PROGRESS NOTES- Subjective Subjective Patient is not eating. She is a poor historian. Gets agitated during dialysis. Remains naked in her room. Objective Vitals/I&O Vital Signs Date Time Temp Pulse Resp B/P (MAP) Pulse Ox O2 Delivery O2 Flow Rate FiO2 02/04/21 09:18 71 123/43 02/04/21 07:31 98.7 16 92 Room Air 98.7 02/04/21 02:45 2.0 I & O 02/03/21 02/03/21 02/04/21 15:00 23:00 07:00 Intake Total 10 ml 100 ml Output Total 0 ml Balance 10 ml 0 ml 100 ml Physical Exam Physical Exam General Appearance - alert and in no distress Chest - decreased breath sounds at bases Heart - S1 and S2 normal Abdomen - soft, non tender Neurological - alert and confused Musculoskeletal - generalized weakness Extremities - no edema Labs Laboratory Tests Test 02/03/21 11:07 02/03/21 16:04 02/03/21 20:31 02/04/21 04:30 Glucose (Fingerstick) 137 mg/dL (70-99) H 145 mg/dL (70-99) H 125 mg/dL (70-99) H Sodium Level 132 mmol/L (136-145) L Potassium Level 5.4 mmol/L (3.5-5.1) H Chloride Level 98 mmol/L (98-107) Carbon Dioxide Level 26 mmol/L (21-32) Anion Gap 8 (6-14) Blood Urea Nitrogen 67 mg/dL (7-20) H Creatinine 7.4 mg/dL (0.6-1.0) H Estimated GFR (Cockcroft-Gault) 6.8 BUN/Creatinine Ratio 9 (6-20) Glucose Level 146 mg/dL (70-99) H Calcium Level 8.2 mg/dL (8.5-10.1) L Total Bilirubin 0.4 mg/dL (0.2-1.0) Aspartate Amino Transferase (AST) 47 U/L (15-37) H Alanine Aminotransferase (ALT) 35 U/L (14-59) Alkaline Phosphatase 79 U/L (46-116) Total Protein 5.6 g/dL (6.4-8.2) L Albumin 2.2 g/dL (3.4-5.0) L Albumin/Globulin Ratio 0.6 (1.0-1.7) L Test 02/04/21 07:51 Glucose (Fingerstick) 151 mg/dL (70-99) H Laboratory Tests 02/04/21 04:30 Assessment Assessment 1. Acute metabolic encephalopathy. Continue to give her lorazepam as needed. Monitor closely in the Intensive Care Unit. Consult Dr. Martinez for neurology evaluation and management. Likely due to hypertensive crisis.Mental status is improving. 2. Acute hypertensive crisis. Patient was initially treated with Cardene IV drip. Consult Dr. Leahy for cardiology evaluation and management. 3. Elevated troponin. This may be due to demand ischemia and also end-stage renal disease may be contributing. 4. End-stage renal disease, on hemodialysis. 5. Coronary artery disease. 6. Diastolic congestive heart failure. 7. Physical deconditioning. 8. Asthma. 9. Gastroesophageal reflux disease. 10. Hyperlipidemia. 11. Severe pulmonary hypertension. 12. 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 13. History of depression. 14. 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 Monitor blood sugar. 15. History of secondary hyperparathyroidism. 16. Marijuana abuse Plan: COVID-19 infection. SARS-CoV-2 PCR test is positive. This may be also contributing to patient's poor appetite, body aches and confusion.I will also consult Dr. Ray Nino for Infectious Disease evaluation and management because of her fever of 103 degrees Fahrenheit. Her chest x-ray, urinalysis as well as SARS-CoV-2 antigen test is negative. Consult Dr. Nino for infectious disease evaluation and management. Patient is running low-grade fever. WBC count is 10.9. On IV Vancomycin. Cefepime has been changed to IV Zosyn. Bl c/s 06/09 Gram + cocci- ? contaminant. CT abd/pelvis 01/28/21 1. Small right pleural effusion and right greater than left posterior dependent and basilar atelectasis and possible superimposed pleural parenchymal scarring. There is no consolidated pneumonia. 2. Soft tissue stranding and small amount of soft tissue gas within the right axilla and base of the right neck. Correlate for recent instrumentation or catheterization. 3. Moderate colonic stool. 4. Mild bladder wall thickening. This may be due to underdistention or cystitis. Correlate with urinalysis. 5. Trace nonspecific pelvic free fluid and mild body wall edema. 6. Renal atrophy. US rt UE- negative for DVT. Acute metabolic encephalopathy-most likely due to COVID-19 infection and may be multifactorial.Slightly better. Increase Seroquel to 25 mg p.o. twice daily and 25 mg at bedtime. Severe malnutrition-patient is not eating but also does not allow any IV fluids or IV access. I have encouraged her to drink Nepro. Rt arm swollen. Change IV to PICC line. Started on PPN yesterday. D/w staff. place midline and restarted PPN. Patient has constipation and has stool on CT of the abdomen. Has abdominal pain also. Change senna S to 2 tablets daily. Prognosis of this patient is extremely poor due to her multiple medical problems. Hypotension on January 31, 2021. Corrected with IV fluids. Continue low-dose Seroquel. Constipation-not eating. Discussed with infectious disease specialist. Change IV antibiotics to p.o. Augmentin. Patient is also refusing oral medications. D/w daughter Kerri -about patient's condition,treatment,options,prognosis on 02/04/21. Family wants to continue present care and hospice was also discussed with her. Because of her persistent agitation, encephalopathy, declining to eat and needing hemodialysis with agitation worse during dialysis at times and pulling on the catheters it would be appropriate to send her to a facility that can do in-house dialysis such [facility] or [facility]. Consult LTACH. Plan Plan For more details regarding further plans, please refer to the orders. Justifications for Admission Other Justification GAURAV DANG MD Feb 04, 2021 10:39
--- NOTE | 2021-02-04 10:51 | PDOC ---
Date of Service: DATE: 02/04/21 TIME: 10:49 Subjective: Subjective: Says she's tired. Objective: Objective: Appears as though she has been compliant w/ PPI and Reglan. Vital Signs: Vital Signs Date Time Temp Pulse Resp B/P (MAP) Pulse Ox O2 Delivery O2 Flow Rate FiO2 02/04/21 09:18 71 123/43 02/04/21 08:00 Room Air 02/04/21 07:31 98.7 16 92 98.7 02/04/21 02:45 2.0 Labs: Laboratory Tests Test 02/03/21 11:07 02/03/21 16:04 02/03/21 20:31 02/04/21 04:30 Glucose (Fingerstick) 137 mg/dL 145 mg/dL 125 mg/dL Sodium Level 132 mmol/L Potassium Level 5.4 mmol/L Chloride Level 98 mmol/L Carbon Dioxide Level 26 mmol/L Anion Gap 8 Blood Urea Nitrogen 67 mg/dL Creatinine 7.4 mg/dL Estimated GFR (Cockcroft-Gault) 6.8 BUN/Creatinine Ratio 9 Glucose Level 146 mg/dL Calcium Level 8.2 mg/dL Total Bilirubin 0.4 mg/dL Aspartate Amino Transf (AST/SGOT) 47 U/L Alanine Aminotransferase (ALT/SGPT) 35 U/L Alkaline Phosphatase 79 U/L Total Protein 5.6 g/dL Albumin 2.2 g/dL Albumin/Globulin Ratio 0.6 Test 02/04/21 07:51 Glucose (Fingerstick) 151 mg/dL PE: GEN: visual exam done - in COVID isolation - slumped over in bed, naked - breakfast tray looks untouched NEURO/PSYCH: lethargic A/P: COVID, encephalopathy Chronic abd pain, GERD, gastroparesis -- Mental status still an issue. Justicifation of Admission Dx: Justifications for Admission: Justification of Admission Dx: N/A ALL GONZALEZ Feb 04, 2021 10:51
--- NOTE | 2021-02-04 11:13 | PDOC ---
Infectious Disease Note Subjective Subjective pt is awake, says she is ok, some body ache ROS ROS no n/v/d/sob Vital Sign Vital Signs Vital Signs Date Time Temp Pulse Resp B/P (MAP) Pulse Ox O2 Delivery O2 Flow Rate FiO2 02/04/21 09:18 71 123/43 02/04/21 08:00 Room Air 02/04/21 07:31 98.7 16 92 98.7 02/04/21 02:45 2.0 Physical Exam PHYSICAL EXAM GEN: Patient alert awake appears comfortable on room air HEENT: Normocephalic atraumatic, NECK supple no meningismus LUNGS: Decreased breath sound at the bases , no accessory muscle use HEART: S1, S2 regular. ABDOMEN: Soft, nontender, bowel sounds present Spine: No spine tenderness, Chest wall and axilla no crepitus, or warmth no pereira EXTREMITIES: Right upper extremity mild edema present no cyanosis. Fistula site clean SKIN: Unremarkable. NEUROLOGIC: More alert, moves all 4 extremities Pscyh calm Midline clean Labs Lab Laboratory Tests Test 02/03/21 16:04 02/03/21 20:31 02/04/21 04:30 02/04/21 07:51 Glucose (Fingerstick) 145 mg/dL (70-99) 125 mg/dL (70-99) 151 mg/dL (70-99) Sodium Level 132 mmol/L (136-145) Potassium Level 5.4 mmol/L (3.5-5.1) Chloride Level 98 mmol/L (98-107) Carbon Dioxide Level 26 mmol/L (21-32) Anion Gap 8 (6-14) Blood Urea Nitrogen 67 mg/dL (7-20) Creatinine 7.4 mg/dL (0.6-1.0) Estimated GFR (Cockcroft-Gault) 6.8 BUN/Creatinine Ratio 9 (6-20) Glucose Level 146 mg/dL (70-99) Calcium Level 8.2 mg/dL (8.5-10.1) Total Bilirubin 0.4 mg/dL (0.2-1.0) Aspartate Amino Transf (AST/SGOT) 47 U/L (15-37) Alanine Aminotransferase (ALT/SGPT) 35 U/L (14-59) Alkaline Phosphatase 79 U/L (46-116) Total Protein 5.6 g/dL (6.4-8.2) Albumin 2.2 g/dL (3.4-5.0) Albumin/Globulin Ratio 0.6 (1.0-1.7) Micro Microbiology 01/27/21 Blood Culture - Final, Complete Objective Assessment 1. COVID-19 positive. 2. Encephalopathy , improving 3. End-stage renal disease, on hemodialysis through left upper extremity fistula. 4. Coronary artery disease. 5. Hypertension. 6. Coronary artery disease. 7. h/o Cerebrovascular accident in the past. 8.Gastroparesis, nausea and vomiting resolved 9. Leucocytosis improving 10. Bacteremia 1 out of 3 bottles staph epidermidis possibly contaminant Plan Plan of Care po augmentin WBC is improving Cont supportive care monitor labs and cultures Maintain aspiration precautions Discussed with nursing staff ILIANA BA MD Feb 04, 2021 11:13
[2021-02-04] MEDS: AA 4.25 %/CALCIUM/LYTES/D5W 1,000 ML IV SCH (13:55)
--- NOTE | 2021-02-04 15:12 | NUR ---
SS following up with discharge planning. SS reviewed pt chart and discussed with pt RN. Pt is currently on room air. COVID19 recovered. Pt has PO diet but is refusing to eat. Pt on Clinimix. PT/OT recommended senior living unit. Pt accepted at [facility] but will need new insurance authorization. Dr. Ng discussed pt condition with family and Dr. Ng is requesting referral to [facility], ; fax [phone], for TPN and in house dialysis. Pt has [facility] insurance. SS phoned and faxed referral as requested. SS will continue to follow for discharge planning.
[2021-02-04] MEDS: AMOXICILLIN/K CLAV 500/125MG TABLET. PO SCH (15:18)
[2021-02-04] MEDS: ISOSORBIDE MONONITRATE ER 30 MG TAB.ER.24H PO SCH (15:19)
[2021-02-04] MEDS: MINOXIDIL 2.5 MG TABLET PO SCH ×2 (15:19→22:31)
[2021-02-04] MEDS ORDERED: IV NORMAL SALINE 1000ML BAG 1,000 ML IV PRN ×2 (19:00)
[2021-02-04] MEDS ORDERED: diphenhydrAMINE 50 MG/ML VIAL IV PRN ×2 (19:00)
[2021-02-04] MEDS ORDERED: DIALYSIS PATIENT. MC PRN ×2 (19:00)
[2021-02-04] MEDS ORDERED: ACETAMINOPHEN 500 MG TABLET PO PRN (19:00)
[2021-02-04] MEDS ORDERED: ALBUMIN HUMAN 25% 200 ML IV PRN (19:00)
[2021-02-04] MEDS: ATORVASTATIN CALCIUM 40 MG TABLET. PO SCH (22:31)
[2021-02-05] VITALS (7 sets, daily range): BP systolic 77–139; BP diastolic 34–57
[2021-02-05] MEDS: AA 4.25 %/CALCIUM/LYTES/D5W 1,000 ML IV SCH ×2 (05:24→18:27)
[2021-02-05] MEDS: HYDROcodone/APAP 7.5/325MG 1 TAB TABLET PO PRN ×2 (07:16→14:52)
[2021-02-05] MEDS: LACTOBACILLUS RHAMNOSUS GG 1 CAPSULE. PO SCH ×2 (07:16→23:58)
[2021-02-05] MEDS: LORazepam 0.5 MG TABLET PO PRN (07:16)
[2021-02-05] MEDS: EZETIMIBE 10 MG TABLET. PO SCH (07:16)
[2021-02-05] MEDS: CARVEDILOL 12.5 MG TABLET. PO SCH ×2 (07:17→18:19)
[2021-02-05] MEDS: LANSOPRAZOLE 30 MG TAB.RAP.DR PO SCH (07:17)
[2021-02-05] MEDS: MINOXIDIL 2.5 MG TABLET PO SCH ×2 (07:17→21:00)
[2021-02-05] MEDS: AMOXICILLIN/K CLAV 500/125MG TABLET. PO SCH (07:17)
[2021-02-05] MEDS: QUEtiapine 25 MG TABLET. PO SCH ×3 (07:18→23:58)
[2021-02-05] MEDS: CLOPIDOGREL BISULFATE 75 MG TABLET PO SCH (07:18)
[2021-02-05] MEDS: ISOSORBIDE MONONITRATE ER 30 MG TAB.ER.24H PO SCH (07:18)
[2021-02-05] MEDS: ASPIRIN ENTERIC COATED 81 MG TABLET.DR. PO SCH (07:19)
[2021-02-05] MEDS: METOCLOPRAMIDE ORAL SOLN 10 MG/10 ML SOLUTION. PO SCH ×4 (07:19→23:57)
[2021-02-05 07:40] LABS: BASO % 1 % (0-3); EOS # 0.1 x10^3/uL (0.0-0.7); EOS % 1 % (0-3); HEMATOCRIT 26.6 % (36.0-47.0); HEMOGLOBIN 8.8 g/dL (12.0-15.5); LYMPH # 0.7 x10^3/uL (1.0-4.8); LYMPH % 8 % (24-48); MEAN CORPUSCULAR HEMOGLOBIN 30 pg (25-35); MEAN CORPUSCULAR HGB CONC 33 g/dL (31-37); MEAN CORPUSCULAR VOLUME 91 fL (79-100); MONO # 0.7 x10^3/uL (0.0-1.1); MONO % 9 % (0-9); NEUT # 6.6 x10^3/uL (1.8-7.7); NEUT % 81 % (31-73); PLATELET COUNT 225 x10^3/uL (140-400); RED BLOOD COUNT 2.91 x10^6/uL (3.50-5.40); RED CELL DISTRIBUTION WIDTH 15.4 % (11.5-14.5); WHITE BLOOD COUNT 8.1 x10^3/uL (4.0-11.0)
[2021-02-05] MEDS: INSULIN LISPRO 300 UNITS/3 ML VIAL. SQ SCH ×3 (08:00→17:00)
[2021-02-05 08:29] LABS: CALCIUM 8.6 mg/dL (8.5-10.1); CREATININE 4.9 mg/dL (0.6-1.0); POTASSIUM 4.7 mmol/L (3.5-5.1)
--- NOTE | 2021-02-05 09:35 | PDOC ---
IM PROGRESS NOTES- Subjective Subjective Patient is not eating. She is a poor historian. Gets agitated during dialysis. Remains naked in her room. Currently she is sleeping and unable to discuss with her. She had received Ativan. Objective Vitals/I&O Vital Signs Date Time Temp Pulse Resp B/P (MAP) Pulse Ox O2 Delivery O2 Flow Rate FiO2 02/05/21 07:46 16 Room Air 02/05/21 07:18 70 139/54 02/05/21 06:03 98.2 94 98.2 I & O 02/04/21 02/04/21 02/05/21 15:00 23:00 07:00 Intake Total 0 ml 0 ml 200 ml Balance 0 ml 0 ml 200 ml Physical Exam Physical Exam General Appearance - alert and in no distress Chest - decreased breath sounds at bases Heart - S1 and S2 normal Abdomen - soft, non tender Neurological - alert and oriented Musculoskeletal - generalized weakness Extremities - no edema Labs Laboratory Tests Test 02/04/21 11:37 02/04/21 22:17 02/05/21 07:20 02/05/21 07:35 Glucose (Fingerstick) 153 mg/dL (70-99) H 96 mg/dL (70-99) 120 mg/dL (70-99) H White Blood Count 8.1 x10^3/uL (4.0-11.0) Red Blood Count 2.91 x10^6/uL (3.50-5.40) L Hemoglobin 8.8 g/dL (12.0-15.5) L Hematocrit 26.6 % (36.0-47.0) L Mean Corpuscular Volume 91 fL (79-100) Mean Corpuscular Hemoglobin 30 pg (25-35) Mean Corpuscular Hemoglobin Concent 33 g/dL (31-37) Red Cell Distribution Width 15.4 % (11.5-14.5) H Platelet Count 225 x10^3/uL (140-400) Neutrophils (%) (Auto) 81 % (31-73) H Lymphocytes (%) (Auto) 8 % (24-48) L Monocytes (%) (Auto) 9 % (0-9) Eosinophils (%) (Auto) 1 % (0-3) Basophils (%) (Auto) 1 % (0-3) Neutrophils # (Auto) 6.6 x10^3/uL (1.8-7.7) Lymphocytes # (Auto) 0.7 x10^3/uL (1.0-4.8) L Monocytes # (Auto) 0.7 x10^3/uL (0.0-1.1) Eosinophils # (Auto) 0.1 x10^3/uL (0.0-0.7) Basophils # (Auto) 0.0 x10^3/uL (0.0-0.2) Sodium Level 136 mmol/L (136-145) Potassium Level 4.7 mmol/L (3.5-5.1) Chloride Level 97 mmol/L (98-107) L Carbon Dioxide Level 30 mmol/L (21-32) Anion Gap 9 (6-14) Blood Urea Nitrogen 40 mg/dL (7-20) H Creatinine 4.9 mg/dL (0.6-1.0) H Estimated GFR (Cockcroft-Gault) 11.0 Glucose Level 126 mg/dL (70-99) H Calcium Level 8.6 mg/dL (8.5-10.1) Laboratory Tests 02/05/21 07:20 Laboratory Tests 02/05/21 07:20 Meds Current Medications Medications (Trade) Dose Ordered Sig/Srinath Route PRN Reason Start Time Stop Time Status Last Admin Dose Admin Amoxicillin/ Clavulanate Potassium (Augmentin 500/ 125mg) 1 tab DAILY PO 02/04/21 14:00 02/05/21 07:17 Assessment Assessment 1. Acute metabolic encephalopathy. Continue to give her lorazepam as needed. Monitor closely in the Intensive Care Unit. Consult Dr. Martinez for neurology evaluation and management. Likely due to hypertensive crisis.Mental status is improving. 2. Acute hypertensive crisis. Patient was initially treated with Cardene IV drip. Consult Dr. Leahy for cardiology evaluation and management. 3. Elevated troponin. This may be due to demand ischemia and also end-stage renal disease may be contributing. 4. End-stage renal disease, on hemodialysis. 5. Coronary artery disease. 6. Diastolic congestive heart failure. 7. Physical deconditioning. 8. Asthma. 9. Gastroesophageal reflux disease. 10. Hyperlipidemia. 11. Severe pulmonary hypertension. 12. 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 13. History of depression. 14. 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 Monitor blood sugar. 15. History of secondary hyperparathyroidism. 16. Marijuana abuse Plan: COVID-19 infection. SARS-CoV-2 PCR test is positive. This may be also contributing to patient's poor appetite, body aches and confusion.I will also consult Dr. Ray Nino for Infectious Disease evaluation and management because of her fever of 103 degrees Fahrenheit. Her chest x-ray, urinalysis as well as SARS-CoV-2 antigen test is negative. Consult Dr. Nino for infectious disease evaluation and management. Patient is running low-grade fever. WBC count is 8.1. On IV Vancomycin. Cefepime has been changed to IV Zosyn. Bl c/s 06/09 Gram + cocci- ? contaminant. CT abd/pelvis 01/28/21 1. Small right pleural effusion and right greater than left posterior dependent and basilar atelectasis and possible superimposed pleural parenchymal scarring. There is no consolidated pneumonia. 2. Soft tissue stranding and small amount of soft tissue gas within the right axilla and base of the right neck. Correlate for recent instrumentation or catheterization. 3. Moderate colonic stool. 4. Mild bladder wall thickening. This may be due to underdistention or cystitis. Correlate with urinalysis. 5. Trace nonspecific pelvic free fluid and mild body wall edema. 6. Renal atrophy. US rt UE- negative for DVT. Acute metabolic encephalopathy-most likely due to COVID-19 infection and may be multifactorial.Slightly better. Increase Seroquel to 25 mg p.o. twice daily and 25 mg at bedtime. I will add mirtazapine at bedtime. Severe malnutrition-patient is not eating but also does not allow any IV fluids or IV access. I have encouraged her to drink Nepro. Rt arm swollen. Change IV to PICC line. Started on PPN yesterday. D/w staff. place midline and restarted PPN. Patient has constipation and has stool on CT of the abdomen. Has abdominal pain also. Change senna S to 2 tablets daily. Prognosis of this patient is extremely poor due to her multiple medical problems. Hypotension on January 31, 2021. Corrected with IV fluids. Continue low-dose Seroquel. Constipation-not eating. Discussed with infectious disease specialist. Change IV antibiotics to p.o. Augmentin. Patient is also refusing oral medications. D/w daughter Kerri -about patient's condition,treatment,options,prognosis on 02/04/21. Family wants to continue present care and hospice was also discussed with her. Because of her persistent agitation, encephalopathy, declining to eat and needing hemodialysis with agitation worse during dialysis at times and pulling on the catheters it would be appropriate to send her to a facility that can do i n-house dialysis such as [facility] or [facility]. Consult LTACH. D/w Dr. Youngblood,nursing warehouse supervisor 3rd shift and clinical social worker. Patient does not qualify for LTAC. Looking for an in-house dialysis facility. Message left for Dr. Hernandez. Plan Plan For more details regarding further plans, please refer to the orders. Justifications for Admission Other Justification GAURAV DANG MD Feb 05, 2021 09:34
--- NOTE | 2021-02-05 10:19 | PDOC ---
Date of Service: DATE: 02/05/21 TIME: 10:17 Objective: Objective: Discussion to Dc to [facility] on TPN. Vital Signs: Vital Signs Date Time Temp Pulse Resp B/P (MAP) Pulse Ox O2 Delivery O2 Flow Rate FiO2 02/05/21 08:00 Room Air 02/05/21 07:46 16 02/05/21 07:18 70 139/54 02/05/21 06:03 98.2 94 98.2 Labs: Laboratory Tests Test 02/04/21 11:37 02/04/21 22:17 02/05/21 07:35 Glucose (Fingerstick) 153 mg/dL (70-99) 96 mg/dL (70-99) 120 mg/dL (70-99) PE: GEN: NAD LUNGS: CTAB HEART: RRR ABD: non-distended NEURO/PSYCH: sleeping naked in bed, apparently received Ativan, did not awaken when I saw her A/P: COVID (recovered), encephalopathy Chronic abd pain, GERD, gastroparesis -- Mental status remains problematic. Justicifation of Admission Dx: Justifications for Admission: Justification of Admission Dx: N/A ALL GONZALEZ Feb 05, 2021 10:19
--- NOTE | 2021-02-05 10:25 | PDOC ---
Infectious Disease Note Subjective Subjective Patient is sleepy, off-and-on confused and agitated pulls out clothes Refusing oral antibiotics ROS ROS No nausea vomiting diarrhea chest pain shortness of breath Vital Sign Vital Signs Vital Signs Date Time Temp Pulse Resp B/P (MAP) Pulse Ox O2 Delivery O2 Flow Rate FiO2 02/05/21 08:00 Room Air 02/05/21 07:46 16 02/05/21 07:18 70 139/54 02/05/21 06:03 98.2 94 98.2 Physical Exam PHYSICAL EXAM GEN: Patient alert awake appears comfortable on room air HEENT: Normocephalic atraumatic, NECK supple no meningismus LUNGS: Decreased breath sound at the bases , no accessory muscle use HEART: S1, S2 regular. ABDOMEN: Soft, nontender, bowel sounds present Spine: No spine tenderness, Chest wall and axilla no crepitus, or warmth no pereira EXTREMITIES: Right upper extremity mild edema present no cyanosis. Fistula site clean SKIN: Unremarkable. NEUROLOGIC: More alert, moves all 4 extremities Pscyh calm Midline clean Labs Lab Laboratory Tests Test 02/04/21 11:37 02/04/21 22:17 02/05/21 07:20 02/05/21 07:35 Glucose (Fingerstick) 153 mg/dL (70-99) 96 mg/dL (70-99) 120 mg/dL (70-99) White Blood Count 8.1 x10^3/uL (4.0-11.0) Red Blood Count 2.91 x10^6/uL (3.50-5.40) Hemoglobin 8.8 g/dL (12.0-15.5) Hematocrit 26.6 % (36.0-47.0) Mean Corpuscular Volume 91 fL (79-100) Mean Corpuscular Hemoglobin 30 pg (25-35) Mean Corpuscular Hemoglobin Concent 33 g/dL (31-37) Red Cell Distribution Width 15.4 % (11.5-14.5) Platelet Count 225 x10^3/uL (140-400) Neutrophils (%) (Auto) 81 % (31-73) Lymphocytes (%) (Auto) 8 % (24-48) Monocytes (%) (Auto) 9 % (0-9) Eosinophils (%) (Auto) 1 % (0-3) Basophils (%) (Auto) 1 % (0-3) Neutrophils # (Auto) 6.6 x10^3/uL (1.8-7.7) Lymphocytes # (Auto) 0.7 x10^3/uL (1.0-4.8) Monocytes # (Auto) 0.7 x10^3/uL (0.0-1.1) Eosinophils # (Auto) 0.1 x10^3/uL (0.0-0.7) Basophils # (Auto) 0.0 x10^3/uL (0.0-0.2) Sodium Level 136 mmol/L (136-145) Potassium Level 4.7 mmol/L (3.5-5.1) Chloride Level 97 mmol/L (98-107) Carbon Dioxide Level 30 mmol/L (21-32) Anion Gap 9 (6-14) Blood Urea Nitrogen 40 mg/dL (7-20) Creatinine 4.9 mg/dL (0.6-1.0) Estimated GFR (Cockcroft-Gault) 11.0 Glucose Level 126 mg/dL (70-99) Calcium Level 8.6 mg/dL (8.5-10.1) Micro Microbiology 01/27/21 Blood Culture - Final, Complete Objective Assessment 1. COVID-19 positive. 2. Encephalopathy , improving 3. End-stage renal disease, on hemodialysis through left upper extremity fistula. 4. Coronary artery disease. 5. Hypertension. 6. Coronary artery disease. 7. h/o Cerebrovascular accident in the past. 8.Gastroparesis, nausea and vomiting resolved 9. Leucocytosis improving 10. Bacteremia 1 out of 3 bottles staph epidermidis possibly contaminant Plan Plan of Care Discontinue po augmentin Cont supportive care monitor labs and cultures Maintain aspiration precautions Discussed with nursing staff ILIANA BA MD Feb 05, 2021 10:25
--- NOTE | 2021-02-05 10:32 | NUR ---
SS following up with discharge planning. SS reviewed pt chart and discussed with pt RN. Pt is currently on room air. COVID19 recovered. PT/OT recommended prison unit. Pt is hemodialysis pt. Pt declined for LTACH due to not meeting medical criteria. Physician wanting referrals to facilities with inpatient hemodialysis. SS phoned and faxed referral to [facility], ; fax [phone], and [facility], ; fax [phone]. Pt still accepted at [facility]. SS phoned and faxed clinical updates to [facility]. New insurance authorization is needed for admission. SS and RN Animal Attendant, Rafaela, spoke with Dr. Ng and were informed that he is discussing hospice with pt's family as well but family is stating that they are not ready. SS will continue to follow for discharge planning. Addendum: 02/05/21 at 1412 by TORREY MCKEON SS [facility] contacted SS and declined pt. [facility] contacted SS and are considering acceptance. [facility] reported that they would contact SS with acceptance decision.
--- NOTE | 2021-02-05 11:07 | PDOC ---
DATE OF SERVICE DATE: 02/05/21 TIME: 11:06 SUBJECTIVE ROS stable OBJECTIVE Vital Signs Vital Signs Date Time Temp Pulse Resp B/P (MAP) Pulse Ox O2 Delivery O2 Flow Rate FiO2 02/05/21 10:51 87/41 (56) 02/05/21 10:50 97.1 70 16 92 Room Air 97.1 I & 0 Intake and Output 02/05/21 07:00 Intake Total 200 ml Balance 200 ml Intake Oral 200 ml PHYSICAL EXAM Physical Exam GEN: NAD HEENT: Normocephalic atraumatic,OM moist NECK supple LUNGS: Decreased breath sound at the bases , no accessory muscle use HEART: S1, S2 regular. ABDOMEN: Soft, nontender, bowel sounds present no pereira EXTREMITIES: Right upper extremity mild edema present , AVF + SKIN: Unremarkable. NEUROLOGIC: alert, moves all 4 extremities DIAGNOSIS/ASSESSMENT Assessment & Plan ESRD on HD TTS , No indication for dialysis today Access Lt Arm AVF Anemia- EDGAR on hold COVID-19 positive. Encephalopathy , improving Coronary artery disease. Hypertension. h/o Cerebrovascular accident in the past. Gastroparesis-nausea and vomiting resolved DIAGNOSIS/ASSESSMENT Assessment & Plan ESRD/ARF: Current fluid and E-lyte status does not necessitate emergent need for dialysis. Will re-evaluate for dialysis in the am and continue on [] schedule. ANEMIA; [] Aranap as ordered, [] Transfuse [] with next HD as needed HTN: Current BP meds as reviewed. See orders for changes. BONE & MINERAL: [] Discussed Plan of Care with family [] at bedside [] over the phone COMMENT/RELEVANT DATA Meds Current Medications Medications (Trade) Dose Ordered Sig/Srinath Start Time Stop Time Status Last Admin Dose Admin Acetaminophen (Tylenol) 500 mg 1X PRN PRN 02/04/21 19:00 02/05/21 18:59 Acetaminophen/ Hydrocodone Bitart (Lortab 7.5/325) 1 tab PRN Q6HRS PRN 01/17/21 20:45 02/05/21 07:16 1 TAB Albumin Human 200 ml @ 200 mls/hr 1X PRN PRN 02/04/21 19:00 02/05/21 00:59 DC Amino Acids/ Electrolytes/ Dextrose 1,000 ml @ 80 mls/hr [id number] 01/27/21 18:45 02/05/21 05:24 80 MLS/HR Amoxicillin/ Clavulanate Potassium (Augmentin 500/ 125mg) 1 tab DAILY 02/04/21 14:00 02/05/21 07:17 1 TAB Aspirin (Aspirin Rectal Supp) 300 mg 1X ONCE 01/16/21 11:15 01/16/21 11:16 DC 01/16/21 12:05 300 MG Aspirin (Ecotrin) 81 mg DAILY 01/17/21 13:00 02/05/21 07:19 81 MG Atorvastatin Calcium (Lipitor) 80 mg HS 01/17/21 21:00 02/04/21 22:31 80 MG Bisacodyl (Dulcolax Supp) 10 mg 1X ONCE 02/01/21 09:45 02/01/21 09:50 DC 02/01/21 11:12 10 MG Calcium Carbonate/ Glycine (Tums) 500 mg PRN AFTMEALHC PRN 01/22/21 03:15 02/03/21 17:32 500 MG Carvedilol (Coreg) 12.5 mg BIDWMEALS 01/17/21 17:00 02/05/21 07:17 12.5 MG Cefepime HCl (Maxipime) 3 gm Sa 02/01/21 16:00 01/30/21 10:40 DC Clonidine HCl (Catapres Tts-3) 1 patch WEEKLY 01/23/21 09:00 01/30/21 09:33 1 PATCH Clonidine HCl (Catapres) 0.2 mg BID 01/17/21 21:00 01/23/21 10:30 DC 01/23/21 09:26 0.2 MG Clopidogrel Bisulfate (Plavix) 75 mg DAILY 01/17/21 13:00 02/05/21 07:18 75 MG Dextrose (Dextrose 50%-Water Syringe) 12.5 gm PRN Q15MIN PRN 01/16/21 11:30 Diphenhydramine HCl (Benadryl) 25 mg 1X PRN PRN 02/04/21 19:00 02/05/21 18:59 EZETIMIBE (Zetia) 10 mg DAILY 01/17/21 13:00 02/05/21 07:16 10 MG Fentanyl Citrate (Fentanyl 2ml Vial) 25 mcg PRN Q3HRS PRN 01/18/21 14:00 01/21/21 16:15 25 MCG Hydralazine HCl (Apresoline Inj) 20 mg PRN Q4HRS PRN 01/16/21 13:00 01/16/21 13:30 20 MG Hydralazine HCl (Apresoline) 50 mg TID 01/17/21 14:00 02/05/21 07:18 50 MG Info (PHARMACY MONITORING -- do not chart) 1 each PRN DAILY PRN 02/04/21 19:00 UNV Insulin Human Lispro (HumaLOG) 0-5 UNITS TIDWMEALS 01/16/21 12:00 Isosorbide Mononitrate (Imdur) 120 mg DAILY 01/17/21 13:00 02/05/21 07:18 120 MG Labetalol HCl (Normodyne Iv Push) 10 mg 1X ONCE 01/16/21 11:00 01/16/21 11:01 DC 01/16/21 12:03 10 MG Lactobacillus Rhamnosus (Culturelle) 1 cap BID 01/29/21 21:00 02/05/21 07:16 1 CAP Lansoprazole (Prevacid) 30 mg DAILY 01/29/21 09:00 02/05/21 07:17 30 MG Lidocaine HCl (Xylocaine-Mpf 1% 2ml Vial) 2 ml 1X PRN PRN 01/30/21 13:00 01/31/21 12:59 DC Lorazepam (Ativan Inj) 1 mg PRN Q4HRS PRN 01/16/21 12:45 02/01/21 15:07 1 MG Lorazepam (Ativan) 0.5 mg PRN Q6HRS PRN 01/19/21 21:15 02/05/21 07:16 0.5 MG Metoclopramide HCl (Reglan Oral Solution) 5 mg TIDACHC 01/24/21 09:30 02/05/21 07:19 5 MG Metoclopramide HCl (Reglan Vial) 5 mg PRN Q6HRS PRN 01/22/21 11:45 01/24/21 09:22 DC Minoxidil (Loniten) 2.5 mg BID 01/17/21 21:00 02/05/21 07:17 2.5 MG Mirtazapine (Remeron) 7.5 mg QHS 02/05/21 21:00 Nicardipine HCl 50 mg/Sodium Chloride 250 ml @ 25 mls/hr CONT PRN 01/16/21 14:00 01/17/21 16:08 DC 01/17/21 04:25 25 MLS/HR Ondansetron HCl (Zofran Odt) 4 mg PRN Q6HRS PRN 01/19/21 09:30 02/03/21 17:32 4 MG Ondansetron HCl (Zofran) 4 mg PRN Q8HRS PRN 01/16/21 11:30 01/17/21 11:29 DC Oxycodone HCl (Roxicodone) 10 mg PRN Q4HRS PRN 01/19/21 17:30 01/24/21 02:35 10 MG Pantoprazole Sodium (PROTONIX VIAL for IV PUSH) 40 mg DAILYAC 01/23/21 07:30 01/24/21 10:51 DC Pantoprazole Sodium (Protonix) 40 mg DAILYAC 01/25/21 07:30 01/28/21 10:18 DC Piperacillin Sod/ Tazobactam Sod 2.25 gm/Sodium Chloride 50 ml @ 100 mls/hr Q8HRS 01/30/21 14:00 02/03/21 09:57 DC 02/03/21 05:35 100 MLS/HR Quetiapine Fumarate (SEROquel) 25 mg QHS 02/01/21 21:00 02/04/21 22:30 25 MG Senna/Docusate Sodium (Senna Plus) 2 tab DAILY08 PRN 01/31/21 09:45 02/02/21 09:46 2 TAB Simethicone (Gas-X) 80 mg PRN TID PRN 01/19/21 21:15 01/21/21 06:04 80 MG Sodium Chloride 1,000 ml @ 400 mls/hr Q2H30M PRN 02/04/21 19:00 02/05/21 06:59 DC Vancomycin HCl (Vanco Per Pharmacy) 1 each PRN DAILY PRN 01/27/21 10:30 02/03/21 09:57 DC 02/03/21 07:55 1 EACH Vancomycin HCl (Vancomycin Random Level) 1 each 1X ONCE 01/29/21 05:00 01/29/21 05:01 DC Vancomycin HCl 1.5 gm/Sodium Chloride 500 ml @ 250 mls/hr 1X ONCE 01/27/21 11:00 01/27/21 12:59 DC 01/27/21 17:47 250 MLS/HR Vancomycin HCl 500 mg/Sodium Chloride 100 ml @ 100 mls/hr QTUTHSA 01/30/21 16:00 02/03/21 09:57 DC 01/30/21 18:05 100 MLS/HR Ziprasidone (Geodon Im) 20 mg 1X ONCE 01/16/21 08:00 01/16/21 08:05 DC 01/16/21 08:08 20 MG Lab Laboratory Tests Test 02/04/21 11:37 02/04/21 22:17 02/05/21 07:20 02/05/21 07:35 Glucose (Fingerstick) 153 mg/dL (70-99) 96 mg/dL (70-99) 120 mg/dL (70-99) White Blood Count 8.1 x10^3/uL (4.0-11.0) Red Blood Count 2.91 x10^6/uL (3.50-5.40) Hemoglobin 8.8 g/dL (12.0-15.5) Hematocrit 26.6 % (36.0-47.0) Mean Corpuscular Volume 91 fL (79-100) Mean Corpuscular Hemoglobin 30 pg (25-35) Mean Corpuscular Hemoglobin Concent 33 g/dL (31-37) Red Cell Distribution Width 15.4 % (11.5-14.5) Platelet Count 225 x10^3/uL (140-400) Neutrophils (%) (Auto) 81 % (31-73) Lymphocytes (%) (Auto) 8 % (24-48) Monocytes (%) (Auto) 9 % (0-9) Eosinophils (%) (Auto) 1 % (0-3) Basophils (%) (Auto) 1 % (0-3) Neutrophils # (Auto) 6.6 x10^3/uL (1.8-7.7) Lymphocytes # (Auto) 0.7 x10^3/uL (1.0-4.8) Monocytes # (Auto) 0.7 x10^3/uL (0.0-1.1) Eosinophils # (Auto) 0.1 x10^3/uL (0.0-0.7) Basophils # (Auto) 0.0 x10^3/uL (0.0-0.2) Sodium Level 136 mmol/L (136-145) Potassium Level 4.7 mmol/L (3.5-5.1) Chloride Level 97 mmol/L (98-107) Carbon Dioxide Level 30 mmol/L (21-32) Anion Gap 9 (6-14) Blood Urea Nitrogen 40 mg/dL (7-20) Creatinine 4.9 mg/dL (0.6-1.0) Estimated GFR (Cockcroft-Gault) 11.0 Glucose Level 126 mg/dL (70-99) Calcium Level 8.6 mg/dL (8.5-10.1) Results All relevant outside records, renal labs, imaging studies, telemetry/EKG's were reviewed. Justicifation of Admission Dx: Justifications for Admission: Justification of Admission Dx: N/A RY ESCOBAR MD Feb 05, 2021 11:07
--- NOTE | 2021-02-05 15:22 | NUR ---
Patient transferred to room 528. Report given to MELODY Bradshaw.
--- NOTE | 2021-02-05 16:35 | NUR ---
Nurse's note: The patient arrived on the unit at 1530, on room air via bed accompanied by her daughter. She complains of abdominal and right chest pain and was moaning and turning. Review of records showed that prn pain medicine given 40 minutes earlier. Upon returning to her room to give her scheduled meds, the patient refused and told this nurse that she's going to sleep.
[2021-02-05] MEDS: oxyCODONE IR 5 MG TABLET PO PRN (23:57)
[2021-02-05] MEDS: ATORVASTATIN CALCIUM 40 MG TABLET. PO SCH (23:58)
[2021-02-05] MEDS: MIRTAZAPINE 7.5 MG TABLET. PO SCH (23:58)
[2021-02-06 03:13] VITALS: BP 99/38
[2021-02-06 07:00] VITALS: BP 101/40
[2021-02-06] MEDS: INSULIN LISPRO 300 UNITS/3 ML VIAL. SQ SCH ×3 (08:00→17:00)
[2021-02-06] MEDS: CARVEDILOL 12.5 MG TABLET. PO SCH ×2 (08:00→17:00)
[2021-02-06 08:09] LABS: CALCIUM 8.1 mg/dL (8.5-10.1); CREATININE 6.1 mg/dL (0.6-1.0); GFR 8.6
[2021-02-06 08:14] LABS: POTASSIUM 5.6 mmol/L (3.5-5.1)
[2021-02-06] MEDS ORDERED: IV NORMAL SALINE 1000ML BAG 1,000 ML IV PRN ×2 (08:30)
[2021-02-06] MEDS ORDERED: DIALYSIS PATIENT. MC PRN (08:30)
--- NOTE | 2021-02-06 08:48 | PDOC ---
IM PROGRESS NOTES- Subjective Subjective Patient is not eating. She is a poor historian. Gets agitated during dialysis. Remains naked in her room. Currently she is sleeping and unable to discuss with her. Objective Vitals/I&O Vital Signs Date Time Temp Pulse Resp B/P (MAP) Pulse Ox O2 Delivery O2 Flow Rate FiO2 02/06/21 07:00 98.4 69 16 101/40 (60) 100 98.4 02/06/21 03:13 Room Air I & O 02/05/21 02/05/21 02/06/21 15:00 23:00 07:00 Intake Total 100 ml Output Total 0 ml 0 ml Balance 100 ml 0 ml Physical Exam Physical Exam General Appearance - sleepy and in no distress, chronically ill,malnourished Chest - decreased breath sounds at bases Heart - S1 and S2 normal Abdomen - soft, non tender Neurological - sleepy confused Musculoskeletal - generalized weakness Extremities - no edema Labs Laboratory Tests Test 02/05/21 11:49 02/05/21 16:55 02/06/21 06:10 02/06/21 07:19 Glucose (Fingerstick) 154 mg/dL (70-99) H 175 mg/dL (70-99) H 124 mg/dL (70-99) H Sodium Level 132 mmol/L (136-145) L Potassium Level 5.6 mmol/L (3.5-5.1) H Chloride Level 96 mmol/L (98-107) L Carbon Dioxide Level 29 mmol/L (21-32) Anion Gap 7 (6-14) Blood Urea Nitrogen 62 mg/dL (7-20) #H Creatinine 6.1 mg/dL (0.6-1.0) H Estimated GFR (Cockcroft-Gault) 8.6 Glucose Level 119 mg/dL (70-99) H Calcium Level 8.1 mg/dL (8.5-10.1) L Laboratory Tests 02/06/21 06:10 Meds Current Medications Medications (Trade) Dose Ordered Sig/Srinath Route PRN Reason Start Time Stop Time Status Last Admin Dose Admin Mirtazapine (Remeron) 7.5 mg QHS PO 02/05/21 21:00 02/05/21 23:58 Assessment Assessment 1. Acute metabolic encephalopathy. Continue to give her lorazepam as needed. Monitor closely in the Intensive Care Unit. Consult Dr. Martinez for neurology evaluation and management. Likely due to hypertensive crisis.Mental status is improving. 2. Acute hypertensive crisis. Patient was initially treated with Cardene IV drip. Consult Dr. Leahy for cardiology evaluation and management. 3. Elevated troponin. This may be due to demand ischemia and also end-stage renal disease may be contributing. 4. End-stage renal disease, on hemodialysis. 5. Coronary artery disease. 6. Diastolic congestive heart failure. 7. Physical deconditioning. 8. Asthma. 9. Gastroesophageal reflux disease. 10. Hyperlipidemia. 11. Severe pulmonary hypertension. 12. 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 13. History of depression. 14. 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 Monitor blood sugar. 15. History of secondary hyperparathyroidism. 16. Marijuana abuse Plan: COVID-19 infection. SARS-CoV-2 PCR test is positive. This may be also contributing to patient's poor appetite, body aches and confusion.I will also consult Dr. Ray Nino for Infectious Disease evaluation and management because of her fever of 103 degrees Fahrenheit. Her chest x-ray, urinalysis as well as SARS-CoV-2 antigen test is negative. Consult Dr. Nino for infectious disease evaluation and management. Patient is running low-grade fever. WBC count is 8.1. On IV Vancomycin. Cefepime has been changed to IV Zosyn. Bl c/s 1/ Gram + cocci- ? contaminant. CT abd/pelvis 01/28/21 1. Small right pleural effusion and right greater than left posterior dependent and basilar atelectasis and possible superimposed pleural parenchymal scarring. There is no consolidated pneumonia. 2. Soft tissue stranding and small amount of soft tissue gas within the right axilla and base of the right neck. Correlate for recent instrumentation or catheterization. 3. Moderate colonic stool. 4. Mild bladder wall thickening. This may be due to underdistention or cystitis. Correlate with urinalysis. 5. Trace nonspecific pelvic free fluid and mild body wall edema. 6. Renal atrophy. US rt UE- negative for DVT. Acute metabolic encephalopathy-most likely due to COVID-19 infection and may be multifactorial.Slightly better. Increase Seroquel to 25 mg p.o. twice daily and 25 mg at bedtime. I will add mirtazapine at bedtime. Severe malnutrition-patient is not eating but also does not allow any IV fluids or IV access. I have encouraged her to drink Nepro. Rt arm swollen. Change IV to PICC line. Started on PPN yesterday. D/w staff. place midline and restarted PPN. Patient has constipation and has stool on CT of the abdomen. Has abdominal pain also. Change senna S to 2 tablets daily. Prognosis of this patient is extremely poor due to her multiple medical problems. Hypotension on January 31, 2021. Corrected with IV fluids.BP low today. Apply hold parameters for BP meds as needed. Continue low-dose Seroquel. Constipation-not eating. Discussed with infectious disease specialist. Change IV antibiotics to p.o. Augmentin. Patient is also refusing oral medications. D/w daughter Kerri -about patient's condition,treatment,options,prognosis on 02/04/21. Family wants to continue present care and hospice was also discussed with her. Because of her persistent agitation, encephalopathy, declining to eat and needing hemodialysis with agitation worse during dialysis at times and pulling on the catheters it would be appropriate to send her to a facility that can do in-house dialysis such as [facility] or [facility]. Consult LTACH. D/w Dr. Youngblood,nursing communications supervisor and social science professor yesterday.. Patient does not qualify for LTAC. Looking for an in-house dialysis facility. D/w - yesterday. Due to her agitation and need for repeat HD on the same day frequently he recommends in house dialysis facility. Plan Plan For more details regarding further plans, please refer to the orders. Justifications for Admission Other Justification GAURAV DANG MD Feb 06, 2021 08:48
--- NOTE | 2021-02-06 09:06 | PDOC ---
DATE OF SERVICE DATE: 02/06/21 TIME: 09:06 SUBJECTIVE ROS stable, no complaints on dialysis OBJECTIVE Vital Signs Vital Signs Date Time Temp Pulse Resp B/P (MAP) Pulse Ox O2 Delivery O2 Flow Rate FiO2 02/06/21 07:00 98.4 69 16 101/40 (60) 100 98.4 02/06/21 03:13 Room Air I & 0 Intake and Output 02/06/21 07:00 Intake Total 100 ml Output Total 0 ml Balance 100 ml Intake Oral 100 ml Output Urine Total 0 ml PHYSICAL EXAM Physical Exam GEN: NAD HEENT: Normocephalic atraumatic,OM moist NECK supple LUNGS: Decreased breath sound at the bases , no accessory muscle use HEART: S1, S2 regular. ABDOMEN: Soft, nontender, bowel sounds present no pereira EXTREMITIES: Right upper extremity mild edema present , AVF + SKIN: Unremarkable. NEUROLOGIC: alert, moves all 4 extremities DIAGNOSIS/ASSESSMENT Assessment & Plan ESRD on HD TTS ,seen on dialysis today , tolerating well. Continue as ordered. Anshu Archer Access Lt Arm AVF Anemia- EDGAR on hold COVID-19 positive. Encephalopathy , improving Coronary artery disease. Hypertension BP low h/o Cerebrovascular accident in the past. Gastroparesis-nausea and vomiting resolved COMMENT/RELEVANT DATA Meds Current Medications Medications (Trade) Dose Ordered Sig/Srinath Start Time Stop Time Status Last Admin Dose Admin Acetaminophen (Tylenol) 500 mg 1X PRN PRN 02/04/21 19:00 02/05/21 18:59 DC Acetaminophen/ Hydrocodone Bitart (Lortab 7.5/325) 1 tab PRN Q6HRS PRN 01/17/21 20:45 02/05/21 14:52 1 TAB Albumin Human 200 ml @ 200 mls/hr 1X PRN PRN 02/04/21 19:00 02/05/21 00:59 DC Amino Acids/ Electrolytes/ Dextrose 1,000 ml @ 80 mls/hr [id number] 01/27/21 18:45 02/05/21 18:27 80 MLS/HR Amoxicillin/ Clavulanate Potassium (Augmentin 500/ 125mg) 1 tab DAILY 02/04/21 14:00 02/05/21 11:21 DC 02/05/21 07:17 1 TAB Aspirin (Aspirin Rectal Supp) 300 mg 1X ONCE 01/16/21 11:15 01/16/21 11:16 DC 01/16/21 12:05 300 MG Aspirin (Ecotrin) 81 mg DAILY 01/17/21 13:00 02/05/21 07:19 81 MG Atorvastatin Calcium (Lipitor) 80 mg HS 01/17/21 21:00 02/05/21 23:58 80 MG Bisacodyl (Dulcolax Supp) 10 mg 1X ONCE 02/01/21 09:45 02/01/21 09:50 DC 02/01/21 11:12 10 MG Calcium Carbonate/ Glycine (Tums) 500 mg PRN AFTMEALHC PRN 01/22/21 03:15 02/03/21 17:32 500 MG Carvedilol (Coreg) 12.5 mg BIDWMEALS 01/17/21 17:00 02/05/21 18:19 12.5 MG Cefepime HCl (Maxipime) 3 gm Sa 02/01/21 16:00 01/30/21 10:40 DC Clonidine HCl (Catapres Tts-3) 1 patch WEEKLY 01/23/21 09:00 01/30/21 09:33 1 PATCH Clonidine HCl (Catapres) 0.2 mg BID 01/17/21 21:00 01/23/21 10:30 DC 01/23/21 09:26 0.2 MG Clopidogrel Bisulfate (Plavix) 75 mg DAILY 01/17/21 13:00 02/05/21 07:18 75 MG Dextrose (Dextrose 50%-Water Syringe) 12.5 gm PRN Q15MIN PRN 01/16/21 11:30 Diphenhydramine HCl (Benadryl) 25 mg 1X PRN PRN 02/04/21 19:00 02/05/21 18:59 DC EZETIMIBE (Zetia) 10 mg DAILY 01/17/21 13:00 02/05/21 07:16 10 MG Fentanyl Citrate (Fentanyl 2ml Vial) 25 mcg PRN Q3HRS PRN 01/18/21 14:00 01/21/21 16:15 25 MCG Hydralazine HCl (Apresoline Inj) 20 mg PRN Q4HRS PRN 01/16/21 13:00 01/16/21 13:30 20 MG Hydralazine HCl (Apresoline) 50 mg TID 01/17/21 14:00 02/05/21 07:18 50 MG Info (PHARMACY MONITORING -- do not chart) 1 each PRN DAILY PRN 02/06/21 08:30 UNV Insulin Human Lispro (HumaLOG) 0-5 UNITS TIDWMEALS 01/16/21 12:00 Isosorbide Mononitrate (Imdur) 120 mg DAILY 01/17/21 13:00 02/05/21 07:18 120 MG Labetalol HCl (Normodyne Iv Push) 10 mg 1X ONCE 01/16/21 11:00 01/16/21 11:01 DC 01/16/21 12:03 10 MG Lactobacillus Rhamnosus (Culturelle) 1 cap BID 01/29/21 21:00 02/05/21 23:58 1 CAP Lansoprazole (Prevacid) 30 mg DAILY 01/29/21 09:00 02/05/21 07:17 30 MG Lidocaine HCl (Xylocaine-Mpf 1% 2ml Vial) 2 ml 1X PRN PRN 01/30/21 13:00 01/31/21 12:59 DC Lorazepam (Ativan Inj) 1 mg PRN Q4HRS PRN 01/16/21 12:45 02/01/21 15:07 1 MG Lorazepam (Ativan) 0.5 mg PRN Q6HRS PRN 01/19/21 21:15 02/05/21 07:16 0.5 MG Metoclopramide HCl (Reglan Oral Solution) 5 mg TIDACHC 01/24/21 09:30 02/05/21 23:57 5 MG Metoclopramide HCl (Reglan Vial) 5 mg PRN Q6HRS PRN 01/22/21 11:45 01/24/21 09:22 DC Minoxidil (Loniten) 2.5 mg BID 01/17/21 21:00 02/05/21 07:17 2.5 MG Mirtazapine (Remeron) 7.5 mg QHS 02/05/21 21:00 02/05/21 23:58 7.5 MG Nicardipine HCl 50 mg/Sodium Chloride 250 ml @ 25 mls/hr CONT PRN 01/16/21 14:00 01/17/21 16:08 DC 01/17/21 04:25 25 MLS/HR Ondansetron HCl (Zofran Odt) 4 mg PRN Q6HRS PRN 01/19/21 09:30 02/03/21 17:32 4 MG Ondansetron HCl (Zofran) 4 mg PRN Q8HRS PRN 01/16/21 11:30 01/17/21 11:29 DC Oxycodone HCl (Roxicodone) 10 mg PRN Q4HRS PRN 01/19/21 17:30 02/05/21 23:57 10 MG Pantoprazole Sodium (PROTONIX VIAL for IV PUSH) 40 mg DAILYAC 01/23/21 07:30 01/24/21 10:51 DC Pantoprazole Sodium (Protonix) 40 mg DAILYAC 01/25/21 07:30 01/28/21 10:18 DC Piperacillin Sod/ Tazobactam Sod 2.25 gm/Sodium Chloride 50 ml @ 100 mls/hr Q8HRS 01/30/21 14:00 02/03/21 09:57 DC 02/03/21 05:35 100 MLS/HR Quetiapine Fumarate (SEROquel) 25 mg QHS 02/01/21 21:00 02/05/21 23:58 25 MG Senna/Docusate Sodium (Senna Plus) 2 tab DAILY08 PRN 01/31/21 09:45 02/02/21 09:46 2 TAB Simethicone (Gas-X) 80 mg PRN TID PRN 01/19/21 21:15 01/21/21 06:04 80 MG Sodium Chloride 1,000 ml @ 400 mls/hr Q2H30M PRN 02/06/21 08:30 02/06/21 20:29 Vancomycin HCl (Vanco Per Pharmacy) 1 each PRN DAILY PRN 01/27/21 10:30 02/03/21 09:57 DC 02/03/21 07:55 1 EACH Vancomycin HCl (Vancomycin Random Level) 1 each 1X ONCE 01/29/21 05:00 01/29/21 05:01 DC Vancomycin HCl 1.5 gm/Sodium Chloride 500 ml @ 250 mls/hr 1X ONCE 01/27/21 11:00 01/27/21 12:59 DC 01/27/21 17:47 250 MLS/HR Vancomycin HCl 500 mg/Sodium Chloride 100 ml @ 100 mls/hr QTUTHSA 01/30/21 16:00 02/03/21 09:57 DC 01/30/21 18:05 100 MLS/HR Ziprasidone (Geodon Im) 20 mg 1X ONCE 01/16/21 08:00 01/16/21 08:05 DC 01/16/21 08:08 20 MG Lab Laboratory Tests Test 02/05/21 11:49 02/05/21 16:55 02/06/21 06:10 02/06/21 07:19 Glucose (Fingerstick) 154 mg/dL (70-99) 175 mg/dL (70-99) 124 mg/dL (70-99) Sodium Level 132 mmol/L (136-145) Potassium Level 5.6 mmol/L (3.5-5.1) Chloride Level 96 mmol/L (98-107) Carbon Dioxide Level 29 mmol/L (21-32) Anion Gap 7 (6-14) Blood Urea Nitrogen 62 mg/dL (7-20) Creatinine 6.1 mg/dL (0.6-1.0) Estimated GFR (Cockcroft-Gault) 8.6 Glucose Level 119 mg/dL (70-99) Calcium Level 8.1 mg/dL (8.5-10.1) Results All relevant outside records, renal labs, imaging studies, telemetry/EKG's were reviewed. Justicifation of Admission Dx: Justifications for Admission: Justification of Admission Dx: N/A RY ESCOBAR MD Feb 06, 2021 09:06
--- NOTE | 2021-02-06 10:33 | PDOC ---
Date of Service: DATE: 02/06/21 TIME: 10:31 Subjective: Subjective: I attempted to wake her - she mumbled "okay." Objective: Vital Signs: Vital Signs Date Time Temp Pulse Resp B/P (MAP) Pulse Ox O2 Delivery O2 Flow Rate FiO2 02/06/21 07:00 98.4 69 16 101/40 (60) 100 98.4 02/06/21 03:13 Room Air Labs: Laboratory Tests Test 02/05/21 11:49 02/05/21 16:55 02/06/21 07:19 Glucose (Fingerstick) 154 mg/dL (70-99) 175 mg/dL (70-99) 124 mg/dL (70-99) PE: GEN: NAD - breakfast tray untouched LUNGS: CTAB HEART: RRR ABD: soft, non-distended NEURO/PSYCH: lethargic A/P: COVID (recovered), encephalopathy Chronic abd pain, GERD, gastroparesis - getting PPI QD + Reglan susp TIDAC -- Encourage PO. Justicifation of Admission Dx: Justifications for Admission: Justification of Admission Dx: N/A ALL GONZALEZ Feb 06, 2021 10:33
--- NOTE | 2021-02-06 11:01 | NUR ---
SS following up with discharge planning. SS reviewed pt chart and discussed with pt RN. Pt is currently on room air. COVID19 recovered. PT/OT recommending snf unit. Physician demanding snf unit with in house dialysis. Pt denied clinically by [facility], [facility], and [facility]. Referrals phoned and faxed to [place], ; fax [phone], and [facility], ; fax [phone]. Pt is accepted at [facility] but facility does not have in house dialysis. SS will continue to follow for discharge planning.
[2021-02-06] MEDS: METOCLOPRAMIDE ORAL SOLN 10 MG/10 ML SOLUTION. PO SCH ×4 (11:30→21:22)
--- NOTE | 2021-02-06 12:10 | PDOC ---
PROGRESS NOTES Date of Service DATE: 02/06/21 TIME: 12:08 Assessment Problems Medical Problems: (1) Altered mental status Status: Acute (2) ESRD (end stage renal disease) on dialysis Status: Acute (3) Hypertensive urgency Status: Acute Encephalopathy, hypertensive, also role of COVID 19 encephalopathy. She takes out her IVs and refuses to eat, has some bizarre behavior at home including sitting around naked. She is now eating some She is requiring quetiapine, mirtazapine, lorazepam COVID 19 History of strokes including chronic right basal ganglia and bilateral thalamic lacunar infarcts on the CT. CT also shows white matter disease consistent with hypertension and diabetes, I doubt that she also has demyelinating disease. She is on statin, aspirin, clopidogrel Elevated troponin, renal failure, anemia, coronary artery disease, diastolic congestive heart failure, fever. 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 I have no other ideas for medications to add, this is mainly a behavioral problem which we cannot fix Agree with long-term care placement Subjective She denies pain Objective Vital Signs Date Time Temp Pulse Resp B/P (MAP) Pulse Ox O2 Delivery O2 Flow Rate FiO2 02/06/21 07:00 98.4 69 16 101/40 (60) 100 98.4 02/06/21 03:13 Room Air Intake and Output 02/06/21 07:00 Intake Total 100 ml Output Total 0 ml Balance 100 ml Intake Oral 100 ml Output Urine Total 0 ml PHYSICAL EXAM Sleepy, arouses to voice, can tell me her name PERRL. EOMI. CN: no focal findings. Muscle tone: normal. Muscle strength: 4/5, weaker on the left DTR: 0-1+ Plantar reflex: flexor Gait: not examined in bed. Sensory exam: Stocking loss. No cerebellar signs elicited. Review of Relevant I have reviewed the following items richard (where applicable) has been applied. Labs Laboratory Tests Test 02/04/21 22:17 02/05/21 07:20 02/05/21 07:35 02/05/21 11:49 Glucose (Fingerstick) 96 mg/dL (70-99) 120 mg/dL (70-99) 154 mg/dL (70-99) White Blood Count 8.1 x10^3/uL (4.0-11.0) Red Blood Count 2.91 x10^6/uL (3.50-5.40) Hemoglobin 8.8 g/dL (12.0-15.5) Hematocrit 26.6 % (36.0-47.0) Mean Corpuscular Volume 91 fL (79-100) Mean Corpuscular Hemoglobin 30 pg (25-35) Mean Corpuscular Hemoglobin Concent 33 g/dL (31-37) Red Cell Distribution Width 15.4 % (11.5-14.5) Platelet Count 225 x10^3/uL (140-400) Neutrophils (%) (Auto) 81 % (31-73) Lymphocytes (%) (Auto) 8 % (24-48) Monocytes (%) (Auto) 9 % (0-9) Eosinophils (%) (Auto) 1 % (0-3) Basophils (%) (Auto) 1 % (0-3) Neutrophils # (Auto) 6.6 x10^3/uL (1.8-7.7) Lymphocytes # (Auto) 0.7 x10^3/uL (1.0-4.8) Monocytes # (Auto) 0.7 x10^3/uL (0.0-1.1) Eosinophils # (Auto) 0.1 x10^3/uL (0.0-0.7) Basophils # (Auto) 0.0 x10^3/uL (0.0-0.2) Sodium Level 136 mmol/L (136-145) Potassium Level 4.7 mmol/L (3.5-5.1) Chloride Level 97 mmol/L (98-107) Carbon Dioxide Level 30 mmol/L (21-32) Anion Gap 9 (6-14) Blood Urea Nitrogen 40 mg/dL (7-20) Creatinine 4.9 mg/dL (0.6-1.0) Estimated GFR (Cockcroft-Gault) 11.0 Glucose Level 126 mg/dL (70-99) Calcium Level 8.6 mg/dL (8.5-10.1) Test 02/05/21 16:55 02/06/21 06:10 02/06/21 07:19 Glucose (Fingerstick) 175 mg/dL (70-99) 124 mg/dL (70-99) Sodium Level 132 mmol/L (136-145) Potassium Level 5.6 mmol/L (3.5-5.1) Chloride Level 96 mmol/L (98-107) Carbon Dioxide Level 29 mmol/L (21-32) Anion Gap 7 (6-14) Blood Urea Nitrogen 62 mg/dL (7-20) Creatinine 6.1 mg/dL (0.6-1.0) Estimated GFR (Cockcroft-Gault) 8.6 Glucose Level 119 mg/dL (70-99) Calcium Level 8.1 mg/dL (8.5-10.1) Laboratory Tests Test 02/05/21 16:55 02/06/21 06:10 02/06/21 07:19 Glucose (Fingerstick) 175 mg/dL (70-99) 124 mg/dL (70-99) Sodium Level 132 mmol/L (136-145) Potassium Level 5.6 mmol/L (3.5-5.1) Chloride Level 96 mmol/L (98-107) Carbon Dioxide Level 29 mmol/L (21-32) Anion Gap 7 (6-14) Blood Urea Nitrogen 62 mg/dL (7-20) Creatinine 6.1 mg/dL (0.6-1.0) Estimated GFR (Cockcroft-Gault) 8.6 Glucose Level 119 mg/dL (70-99) Calcium Level 8.1 mg/dL (8.5-10.1) Microbiology 01/27/21 Blood Culture - Final, Complete Medications Current Medications Fentanyl Citrate (Fentanyl 2ml Vial) 75 mcg 1X ONCE IVP Last administered on 01/16/21at 08:31; Start 01/16/21 at 08:00; Stop 01/16/21 at 08:05; Status DC Ziprasidone (Geodon Im) 20 mg 1X ONCE IM Last administered on 01/16/21at 08:08; Start 01/16/21 at 08:00; Stop 01/16/21 at 08:05; Status DC Lorazepam (Ativan Inj) 2 mg 1X ONCE IVP Last administered on 01/16/21at 08:45; Start 01/16/21 at 08:45; Stop 01/16/21 at 08:46; Status DC Hydralazine HCl (Apresoline Inj) 20 mg 1X ONCE IVP Last administered on 01/16/21at 09:04; Start 01/16/21 at 09:00; Stop 01/16/21 at 09:02; Status DC Lorazepam (Ativan Inj) 2 mg 1X ONCE IVP Last administered on 01/16/21at 09:40; Start 01/16/21 at 09:30; Stop 01/16/21 at 09:31; Status DC Labetalol HCl (Normodyne Iv Push) 10 mg 1X ONCE IVP Last administered on 01/16/21at 12:03; Start 01/16/21 at 11:00; Stop 01/16/21 at 11:01; Status DC Aspirin (Aspirin Rectal Supp) 300 mg 1X ONCE KS Last administered on 01/16/21at 12:05; Start 01/16/21 at 11:15; Stop 01/16/21 at 11:16; Status DC Ondansetron HCl (Zofran) 4 mg PRN Q8HRS PRN IVP NAUSEA/VOMITING; Start 01/16/21 at 11:30; Stop 01/17/21 at 11:29; Status DC Insulin Human Lispro (HumaLOG) 0-5 UNITS TIDWMEALS SQ ; Start 01/16/21 at 12:00 Dextrose (Dextrose 50%-Water Syringe) 12.5 gm PRN Q15MIN PRN IV SEE COMMENTS; Start 01/16/21 at 11:30 Lorazepam (Ativan Inj) 1 mg PRN Q4HRS PRN IVP ANXIETY / AGITATION Last administered on 02/01/21at 15:07; Start 01/16/21 at 12:45 Hydralazine HCl (Apresoline Inj) 20 mg PRN Q4HRS PRN IVP ELEVATED BP, SEE COMMENTS Last administered on 01/16/21at 13:30; Start 01/16/21 at 13:00 Nicardipine HCl 50 mg/Sodium Chloride 250 ml @ 25 mls/hr CONT PRN IV SEE I/O RECORD Last administered on 01/17/21 04:25; Start 01/16/21 at 14:00; Stop 01/17/21 at 16:08; Status DC Aspirin (Ecotrin) 81 mg DAILY PO Last administered on 02/05/21 07:19; Start 01/17/21 at 13:00 Atorvastatin Calcium (Lipitor) 80 mg HS PO Last administered on 02/05/21at 23:58; Start 01/17/21 at 21:00 Carvedilol (Coreg) 12.5 mg BIDWMEALS PO Last administered on 02/05/21 18:19; Start 01/17/21 at 17:00 Clonidine HCl (Catapres) 0.2 mg BID PO Last administered on 01/23/21 09:26; Start 01/17/21 at 21:00; Stop 01/23/21 at 10:30; Status DC Clopidogrel Bisulfate (Plavix) 75 mg DAILY PO Last administered on 02/05/21 07:18; Start 01/17/21 at 13:00 EZETIMIBE (Zetia) 10 mg DAILY PO Last administered on 02/05/21 07:16; Start 01/17/21 at 13:00 Hydralazine HCl (Apresoline) 50 mg TID PO Last administered on 02/05/21 07:18; Start 01/17/21 at 14:00 Isosorbide Mononitrate (Imdur) 120 mg DAILY PO Last administered on 02/05/21 07:18; Start 01/17/21 at 13:00 Minoxidil (Loniten) 2.5 mg BID PO Last administered on 02/05/21 07:17; Start 01/17/21 at 21:00 Acetaminophen (Tylenol) 650 mg PRN Q6HRS PRN PO MILD PAIN / TEMP > 100.3'F Last administered on 01/28/21 16:08; Start 01/17/21 at 20:45 Acetaminophen/ Hydrocodone Bitart (Lortab 7.5/325) 1 tab PRN Q6HRS PRN PO MODERATE PAIN Last administered on 02/05/21 14:52; Start 01/17/21 at 20:45 Sodium Chloride 1,000 ml @ 1,000 mls/hr Q1H PRN IV hypotension; Start 01/18/21 at 11:30; Stop 01/18/21 at 17:29; Status DC Albumin Human 200 ml @ 200 mls/hr 1X PRN PRN IV Hypotension; Start 01/18/21 at 11:30; Stop 01/18/21 at 17:29; Status DC Sodium Chloride 1,000 ml @ 400 mls/hr Q2H30M PRN IV PATENCY; Start 01/18/21 at 11:30; Stop 01/18/21 at 23:29; Status DC Info (PHARMACY MONITORING -- do not chart) 1 each PRN DAILY PRN MC SEE COMMENTS; Start 01/18/21 at 11:30; Status UNV Info (PHARMACY MONITORING -- do not chart) 1 each PRN DAILY PRN MC SEE COMMENTS; Start 01/18/21 at 11:30; Status Cancel Fentanyl Citrate (Fentanyl 2ml Vial) 25 mcg PRN Q3HRS PRN IV PAIN Last administered on 01/21/21at 16:15; Start 01/18/21 at 14:00 Ondansetron HCl (Zofran Odt) 4 mg PRN Q6HRS PRN PO NAUSEA/VOMITING Last administered on 02/03/21at 17:32; Start 01/19/21 at 09:30 Oxycodone HCl (Roxicodone) 10 mg PRN Q4HRS PRN PO SEVERE PAIN Last administered on 02/05/21at 23:57; Start 01/19/21 at 17:30 Simethicone (Gas-X) 80 mg PRN TID PRN PO GAS / BLOATING Last administered on 01/21/21at 06:04; Start 01/19/21 at 21:15 Lorazepam (Ativan) 0.5 mg PRN Q6HRS PRN PO ANXIETY / AGITATION Last administered on 02/05/21at 07:16; Start 01/19/21 at 21:15 Pantoprazole Sodium (Protonix) 40 mg DAILYAC PO Last administered on 01/22/21at 09:37; Start 01/21/21 at 10:00; Stop 01/22/21 at 11:38; Status DC Sodium Chloride 1,000 ml @ 1,000 mls/hr Q1H PRN IV hypotension; Start 01/21/21 at 12:45; Stop 01/21/21 at 18:44; Status DC Albumin Human 200 ml @ 200 mls/hr 1X PRN PRN IV Hypotension; Start 01/21/21 at 12:45; Stop 01/21/21 at 18:44; Status DC Acetaminophen (Tylenol) 500 mg 1X PRN PRN PO MILD PAIN / TEMP > 100.3'F; Start 01/21/21 at 12:45; Stop 01/22/21 at 12:44; Status DC Diphenhydramine HCl (Benadryl) 25 mg 1X PRN PRN IV ITCHING; Start 01/21/21 at 12:45; Stop 01/22/21 at 12:44; Status DC Diphenhydramine HCl (Benadryl) 25 mg 1X PRN PRN IV ITCHING; Start 01/21/21 at 12:45; Stop 01/22/21 at 12:44; Status DC Sodium Chloride 1,000 ml @ 400 mls/hr Q2H30M PRN IV PATENCY; Start 01/21/21 at 12:45; Stop 01/22/21 at 00:44; Status DC Lidocaine HCl (Xylocaine-Mpf 1% 2ml Vial) 2 ml 1X PRN PRN INJ FOR DIALYSIS; Start 01/21/21 at 12:45; Stop 01/22/21 at 12:44; Status DC Info (PHARMACY MONITORING -- do not chart) 1 each PRN DAILY PRN MC SEE COMMENTS; Start 01/21/21 at 12:45; Status UNV Info (PHARMACY MONITORING -- do not chart) 1 each PRN DAILY PRN MC SEE COMMENTS; Start 01/21/21 at 12:45; Status Cancel Bisacodyl (Dulcolax Supp) 10 mg PRN DAILY PRN [place] CONSTIPATION; Start 01/21/21 at 19:30 Senna/Docusate Sodium (Senna Plus) 2 tab PRN BID PRN PO CONSTIPATION Last administered on 01/28/21at 20:32; Start 01/21/21 at 19:30; Stop 01/31/21 at 09:47; Status DC Calcium Carbonate/ Glycine (Tums) 500 mg PRN AFTMEALHC PRN PO INDIGESTION Last administered on 02/03/21at 17:32; Start 01/22/21 at 03:15 Metoclopramide HCl (Reglan Vial) 5 mg PRN Q6HRS PRN IVP NAUSEA/VOMITING; Start 01/22/21 at 11:45; Stop 01/24/21 at 09:22; Status DC Pantoprazole Sodium (PROTONIX VIAL for IV PUSH) 40 mg DAILYAC IVP ; Start 01/23/21 at 07:30; Stop 01/24/21 at 10:51; Status DC Sodium Chloride 1,000 ml @ 1,000 mls/hr Q1H PRN IV hypotension; Start 01/23/21 at 09:30; Stop 01/23/21 at 15:29; Status DC Albumin Human 200 ml @ 200 mls/hr 1X PRN PRN IV Hypotension; Start 01/23/21 at 09:30; Stop 01/23/21 at 15:29; Status DC Sodium Chloride 1,000 ml @ 400 mls/hr Q2H30M PRN IV PATENCY; Start 01/23/21 at 09:30; Stop 01/23/21 at 21:29; Status DC Lidocaine HCl (Xylocaine-Mpf 1% 2ml Vial) 2 ml 1X PRN PRN INJ FOR DIALYSIS; Start 01/23/21 at 09:30; Stop 01/24/21 at 09:29; Status DC Info (PHARMACY MONITORING -- do not chart) 1 each PRN DAILY PRN MC SEE COMMENTS; Start 01/23/21 at 09:30; Status UNV Info (PHARMACY MONITORING -- do not chart) 1 each PRN DAILY PRN MC SEE COMMENTS; Start 01/23/21 at 09:30; Stop 01/27/21 at 10:34; Status DC Clonidine HCl (Catapres Tts-3) 1 patch WEEKLY TD Last administered on 01/30/21at 09:33; Start 01/23/21 at 09:00 Quetiapine Fumarate (SEROquel) 12.5 mg [id number] PO Last administered on 01/23/21at 18:14; Start 01/23/21 at 11:00; Stop 01/24/21 at 09:17; Status DC Quetiapine Fumarate (SEROquel) 25 mg QHS PO Last administered on 01/30/21at 22:52; Start 01/24/21 at 21:00; Stop 01/31/21 at 13:26; Status DC Quetiapine Fumarate (SEROquel) 12.5 mg [id number] PO Last administered on 01/30/21at 09:34; Start 01/24/21 at 09:30; Stop 01/30/21 at 10:08; Status DC Metoclopramide HCl (Reglan Oral Solution) 5 mg TIDACHC PO Last administered on 02/05/21at 23:57; Start 01/24/21 at 09:30 Pantoprazole Sodium (Protonix) 40 mg DAILYAC PO ; Start 01/25/21 at 07:30; Stop 01/28/21 at 10:18; Status DC Sodium Chloride 1,000 ml @ 1,000 mls/hr Q1H PRN IV hypotension; Start 01/25/21 at 14:15; Stop 01/25/21 at 20:14; Status DC Albumin Human 200 ml @ 200 mls/hr 1X PRN PRN IV Hypotension; Start 01/25/21 at 14:15; Stop 01/25/21 at 20:14; Status DC Sodium Chloride 1,000 ml @ 400 mls/hr Q2H30M PRN IV PATENCY; Start 01/25/21 at 14:15; Stop 01/26/21 at 02:14; Status DC Info (PHARMACY MONITORING -- do not chart) 1 each PRN DAILY PRN MC SEE COMMENTS; Start 01/25/21 at 14:15; Status Cancel Info (PHARMACY MONITORING -- do not chart) 1 each PRN DAILY PRN MC SEE COMMENTS; Start 01/25/21 at 14:15; Status Cancel Piperacillin Sod/ Tazobactam Sod 2.25 gm/Sodium Chloride 50 ml @ 100 mls/hr Q8HRS IV Last administered on 01/28/21at 05:59; Start 01/27/21 at 14:00; Stop 01/28/21 at 10:44; Status DC Vancomycin HCl (Vanco Per Pharmacy) 1 each PRN DAILY PRN MC SEE COMMENTS Last administered on 02/03/21at 07:55; Start 01/27/21 at 10:30; Stop 02/03/21 at 09:57; Status DC Info (PHARMACY MONITORING -- do not chart) 1 each PRN DAILY PRN MC SEE COMMENTS; Start 01/27/21 at 10:30; Status Cancel Vancomycin HCl 1.5 gm/Sodium Chloride 500 ml @ 250 mls/hr 1X ONCE IV Last administered on 01/27/21at 17:47; Start 01/27/21 at 11:00; Stop 01/27/21 at 12:59; Status DC Vancomycin HCl (Vancomycin Random Level) 1 each 1X ONCE MC ; Start 01/29/21 at 05:00; Stop 01/29/21 at 05:01; Status DC Amino Acids/ Electrolytes/ Dextrose 1,000 ml @ 80 mls/hr [id number] IV Last administered on 02/05/21at 18:27; Start 01/27/21 at 18:45 Sodium Chloride 1,000 ml @ 1,000 mls/hr Q1H PRN IV hypotension; Start 01/28/21 at 07:30; Stop 01/28/21 at 13:29; Status DC Albumin Human 200 ml @ 200 mls/hr 1X PRN PRN IV Hypotension; Start 01/28/21 at 07:30; Stop 01/28/21 at 13:29; Status DC Sodium Chloride 1,000 ml @ 400 mls/hr Q2H30M PRN IV PATENCY; Start 01/28/21 at 07:30; Stop 01/28/21 at 19:29; Status DC Info (PHARMACY MONITORING -- do not chart) 1 each PRN DAILY PRN MC SEE COMMENTS; Start 01/28/21 at 07:30; Status UNV Info (PHARMACY MONITORING -- do not chart) 1 each PRN DAILY PRN MC SEE COMMENTS; Start 01/28/21 at 07:30; Status UNV Lansoprazole (Prevacid) 30 mg DAILY PO Last administered on 02/05/21at 07:17; Start 01/29/21 at 09:00 Cefepime HCl (Maxipime) 2 gm TuTh IVP ; Start 01/28/21 at 16:00; Stop 01/30/21 at 10:40; Status DC Cefepime HCl (Maxipime) 3 gm Sa IVP ; Start 02/01/21 at 16:00; Stop 01/30/21 at 10:40; Status DC Vancomycin HCl 500 mg/Sodium Chloride 100 ml @ 100 mls/hr QTUTHSA IV Last administered on 01/30/21at 18:05; Start 01/30/21 at 16:00; Stop 02/03/21 at 09:57; Status DC Lactobacillus Rhamnosus (Culturelle) 1 cap BID PO Last administered on 02/05/21at 23:58; Start 01/29/21 at 21:00 Quetiapine Fumarate (SEROquel) 25 mg [id number] PO Last administered on 01/30/21at 18:04; Start 01/30/21 at 16:00; Stop 01/31/21 at 13:26; Status DC Bisacodyl (Dulcolax Supp) 10 mg 1X ONCE KS Last administered on 01/30/21at 11:12; Start 01/30/21 at 10:15; Stop 01/30/21 at 10:16; Status DC Piperacillin Sod/ Tazobactam Sod 2.25 gm/Sodium Chloride 50 ml @ 100 mls/hr Q8HRS IV Last administered on 02/03/21at 05:35; Start 01/30/21 at 14:00; Stop 02/03/21 at 09:57; Status DC Sodium Chloride 1,000 ml @ 1,000 mls/hr Q1H PRN IV hypotension; Start 01/30/21 at 13:00; Stop 01/30/21 at 18:59; Status DC Albumin Human 200 ml @ 200 mls/hr 1X PRN PRN IV Hypotension; Start 01/30/21 at 13:00; Stop 01/30/21 at 18:59; Status DC Acetaminophen (Tylenol) 500 mg 1X PRN PRN PO MILD PAIN / TEMP > 100.3'F; Start 01/30/21 at 13:00; Stop 01/31/21 at 12:59; Status DC Diphenhydramine HCl (Benadryl) 25 mg 1X PRN PRN IV ITCHING; Start 01/30/21 at 13:00; Stop 01/31/21 at 12:59; Status DC Diphenhydramine HCl (Benadryl) 25 mg 1X PRN PRN IV ITCHING; Start 01/30/21 at 13:00; Stop 01/31/21 at 12:59; Status DC Sodium Chloride 1,000 ml @ 400 mls/hr Q2H30M PRN IV PATENCY; Start 01/30/21 at 13:00; Stop 01/31/21 at 00:59; Status DC Lidocaine HCl (Xylocaine-Mpf 1% 2ml Vial) 2 ml 1X PRN PRN INJ FOR DIALYSIS; Start 01/30/21 at 13:00; Stop 01/31/21 at 12:59; Status DC Info (PHARMACY MONITORING -- do not chart) 1 each PRN DAILY PRN MC SEE COMMENTS; Start 01/30/21 at 13:00; Status UNV Info (PHARMACY MONITORING -- do not chart) 1 each PRN DAILY PRN MC SEE COMMENTS; Start 01/30/21 at 13:00; Status UNV Senna/Docusate Sodium (Senna Plus) 2 tab DAILY08 PRN PO CONSTIPATION Last administered on 02/02/21at 09:46; Start 01/31/21 at 09:45 Sodium Chloride 500 ml @ 0 mls/hr 1X ONCE IV Last administered on 01/31/21at 13:43; Start 01/31/21 at 13:30; Stop 01/31/21 at 13:31; Status DC Quetiapine Fumarate (SEROquel) 12.5 mg [id number] PO Last administered on 02/05/21at 18:19; Start 02/01/21 at 16:00 Quetiapine Fumarate (SEROquel) 25 mg QHS PO Last administered on 02/05/21at 23:58; Start 02/01/21 at 21:00 Bisacodyl (Dulcolax Supp) 10 mg 1X ONCE [place] Last administered on 02/01/21at 11:12; Start 02/01/21 at 09:45; Stop 02/01/21 at 09:50; Status DC Diphenhydramine HCl (Benadryl) 25 mg 1X PRN PRN IV ITCHING Last administered on 02/01/21at 14:49; Start 02/01/21 at 14:30; Stop 02/02/21 at 14:29; Status DC Diphenhydramine HCl (Benadryl) 25 mg 1X PRN PRN IV ITCHING; Start 02/01/21 at 14:30; Stop 02/02/21 at 14:29; Status DC Info (PHARMACY MONITORING -- do not chart) 1 each PRN DAILY PRN MC SEE COMMENTS; Start 02/01/21 at 14:30; Stop 02/05/21 at 15:18; Status DC Amoxicillin/ Clavulanate Potassium (Augmentin 500/ 125mg) 1 tab DAILY PO Last administered on 02/05/21at 07:17; Start 02/04/21 at 14:00; Stop 02/05/21 at 11:21; Status DC Sodium Chloride 1,000 ml @ 1,000 mls/hr Q1H PRN IV hypotension; Start 02/04/21 at 19:00; Stop 02/05/21 at 00:59; Status DC Albumin Human 200 ml @ 200 mls/hr 1X PRN PRN IV Hypotension; Start 02/04/21 at 19:00; Stop 02/05/21 at 00:59; Status DC Acetaminophen (Tylenol) 500 mg 1X PRN PRN PO MILD PAIN / TEMP > 100.3'F; Start 02/04/21 at 19:00; Stop 02/05/21 at 18:59; Status DC Diphenhydramine HCl (Benadryl) 25 mg 1X PRN PRN IV ITCHING; Start 02/04/21 at 19:00; Stop 02/05/21 at 18:59; Status DC Diphenhydramine HCl (Benadryl) 25 mg 1X PRN PRN IV ITCHING; Start 02/04/21 at 19:00; Stop 02/05/21 at 18:59; Status DC Sodium Chloride 1,000 ml @ 400 mls/hr Q2H30M PRN IV PATENCY; Start 02/04/21 at 19:00; Stop 02/05/21 at 06:59; Status DC Info (PHARMACY MONITORING -- do not chart) 1 each PRN DAILY PRN MC SEE COMMENTS; Start 02/04/21 at 19:00 Info (PHARMACY MONITORING -- do not chart) 1 each PRN DAILY PRN MC SEE COMMENTS; Start 02/04/21 at 19:00; Status UNV Mirtazapine (Remeron) 7.5 mg QHS PO Last administered on 02/05/21at 23:58; Start 02/05/21 at 21:00 Sodium Chloride 1,000 ml @ 1,000 mls/hr Q1H PRN IV hypotension; Start 02/06/21 at 08:30; Stop 02/06/21 at 14:29 Sodium Chloride 1,000 ml @ 400 mls/hr Q2H30M PRN IV PATENCY; Start 02/06/21 at 08:30; Stop 02/06/21 at 20:29 Info (PHARMACY MONITORING -- do not chart) 1 each PRN DAILY PRN MC SEE COMMENTS; Start 02/06/21 at 08:30; Status UNV Active Scripts Active Lactulose 20 Gm/30 Ml Solution 20 Gm PO BID 5 Days Culturelle (Lactobacillus Rhamnosus Gg) 1 Each Cap.sprink 1 Cap PO BID Metoclopramide Hcl 5 Mg/1 Ml Vial 5 Mg IV PRN Q6HRS PRN Metoclopramide Hcl 5 Mg/1 Ml Vial 5 Mg IV [id number] Ondansetron Hcl 4 Mg/2 Ml Vial (Ondansetron Hcl/Pf) 4 Mg/2 Ml Vial 4 Mg IV PRN Q6HRS PRN Buspirone Hcl 5 Mg Tablet 5 Mg PO TID Quetiapine Fumarate 25 Mg Tablet 12.5 Mg PO PRN Q6HRS PRN Quetiapine Fumarate 25 Mg Tablet 25 Mg PO QHS Sertraline Hcl 50 Mg Tablet 50 Mg PO DAILY Hydrocodone-Apap 7.5-325 (Hydrocodone Bit/Acetaminophen) 1 Each Tablet 1 Tab PO PRN Q8HRS PRN Fentanyl 0.05 Mg/Ml Vial (Fentanyl Citrate/Pf) 50 Mcg/1 Ml Vial 50 Mcg IV PRN Q4HRS PRN [Darbepoetin Ty In Polysorbat] 60 MCG/0.3 ML Disp.syrin 60 Mcg SQ WEEKLYHS Zyvox (Linezolid) 600 Mg Tablet 600 Mg PO BID Vitamin D3 (Cholecalciferol (Vitamin D3)) 1,000 Unit Tablet 1 Tab PO DAILY [Calcium Acetate] 667 MG Capsule 1,334 Mg PO TIDWMEALS Mapap (Acetaminophen) 500 Mg Tablet 1,000 Mg PO TID Carvedilol (Carvedilol) 12.5 Mg Tablet 12.5 Mg PO BIDWMEALS Minoxidil 2.5 Mg Tablet 2.5 Mg PO BID Isosorbide Mononitrate Er (Isosorbide Mononitrate) 30 Mg Tab.er.24h 120 Mg PO DAILY Montelukast Sodium Tablet (Montelukast Sodium) 10 Mg Tablet 10 Mg PO QHS Polyethylene Glycol 3350 2,500 Gm Powder 17 Gm PO DAILY Novolog Flexpen (Insulin Aspart) 100 Unit/1 Ml Insuln.pen 0 Units SQ TIDAC Take sub q tid ac: BS 151-200=2 unit, 201-250=3 unit, [id number], BS 301-350=6 unit, BS 351-400 =8 unit. BS>401 call MD Renetta Busch 10,000 Units Capsule (Lipase/Protease/Amylase) 1 Each Capsule. 2 Cap PO TIDWMEALS TAke 2 cap tid with meals Nephro-Donny Tablet (Folic Acid/Vitamin B Comp W-C) 0.8 Mg Tablet 1 Tab PO DAILY Benadryl (Diphenhydramine Hcl) 25 Mg Capsule 25 Mg PO PRN Q6HRS PRN Reported Lactulose 10 Gm Packet 10 Gm PO Q6HRS Lidocaine 15 Gm Cream..g. 1 Karma TP TID PRN 30 Days Isosorbide Mononitrate Er (Isosorbide Mononitrate) 60 Mg Tab.er.24h 1 Tab PO DAILY Vitamin A 2,400 Mcg Capsule 1,250 Mcg PO WEEKLY Hydrocodone-Apap 10-325 (Hydrocodone Bit/Acetaminophen) 1 Tab Tablet 1 Tab PO PRN Q6HRS PRN Ultram (Tramadol Hcl) 50 Mg Tablet 1 Tab PO BID MDD 2 Tablet(s) 30 Days Hydralazine Hcl 50 Mg Tablet 1 Tab PO TID Acetaminophen 325 Mg Tablet 2 Tab PO Q6HRS PRN 30 Days Glucose Gel (Dextrose) 38 Gm Gel..gram. 15 Gm PO PRN Sertraline Hcl 100 Mg Tablet 100 Mg PO DAILY Glucagon Emergency Kit (Glucagon,Human Recombinant) 1 Mg Kit 1 Mg IM PRN Senna Plus Tablet (Sennosides/Docusate Sodium) 1 Each Tablet 2 Tab PO QHS 14 Days Zetia (Ezetimibe) 10 Mg Tablet 1 Tab PO DAILY 30 Days Renvela (Sevelamer Carbonate) 800 Mg Tablet 800 Mg PO TIDWMEALS Escitalopram Oxalate 10 Mg Tablet 1 Tab PO DAILY Lyrica (Pregabalin) 50 Mg Capsule 25 Mg PO QHS [creon] 1 Cap PO TIDAC Oxycodone HCl 5 Mg Tablet 5 Mg PO Q8HRS PRN [zenpep] 10 Mg PO TIDAC Clonidine Hcl 0.2 Mg Tablet 0.2 Mg PO BID Zofran (Ondansetron Hcl) 4 Mg Tablet 1 Tab PO Q4HRS PRN Sensipar (Cinacalcet Hcl) 30 Mg Tablet 1 Tab PO DAILY 30 Days Mirtazapine 15 Mg Tablet 1 Tab PO QHS Atorvastatin Calcium 40 Mg Tablet 80 Mg PO HS Minoxidil 2.5 Mg Tablet 2.5 Mg PO DAILY Amlodipine Besylate 10 Mg Tablet 10 Mg PO DAILY Lidocaine PATCH (Lidocaine) 1 Each Adh..patch 1 Each TP DAILY REMOVE AFTER 12 HOURS Proair Hfa Inhaler (Albuterol Sulfate) 8.5 Gm Hfa.aer.ad 2 Puff INH PRN Q6HRS PRN Nitrostat (Nitroglycerin) 0.4 Mg Tab.subl 0.4 Mg SL PRN Q5MIN PRN Plavix (Clopidogrel Bisulfate) 75 Mg Tablet 1 Tab PO DAILY Zoloft (Sertraline Hcl) 100 Mg Tablet 1 Tab PO DAILY Pantoprazole Sodium (Pantoprazole Sodium) 40 Mg Tablet. 1 Tab PO DAILY Losartan Potassium 100 Mg Tablet 100 Mg PO DAILY Aspir 81 (Aspirin) 81 Mg Tablet.dr 81 Mg PO DAILY Vitals/I & O Vital Sign - Last 24 Hours 02/05/21 02/05/21 02/05/21 02/05/21 14:52 15:15 15:22 18:19 Temp 97.1 97.1 Pulse 52 52 Resp 18 16 18 B/P (MAP) 112/52 (72) 112/52 Pulse Ox 93 O2 Delivery Room Air Room Air Room Air 02/05/21 02/05/21 02/05/21 02/05/21 19:00 20:00 21:00 21:00 Temp 98.4 98.4 Pulse 79 60 60 Resp 20 B/P (MAP) 122/57 (78) 99/38 99/38 Pulse Ox 98 O2 Delivery Room Air Room Air 02/05/21 02/05/21 02/06/21 02/06/21 23:00 23:57 03:13 07:00 Temp 98.2 98.0 98.4 98.2 98.0 98.4 Pulse 71 60 69 Resp 18 20 18 16 B/P (MAP) 110/34 (59) 99/38 (58) 101/40 (60) Pulse Ox 98 96 100 O2 Delivery Room Air Room Air Room Air Intake and Output 02/05/21 02/05/21 02/06/21 15:00 23:00 07:00 Intake Total 100 ml Output Total 0 ml 0 ml Balance 100 ml 0 ml Justicifation of Admission Dx: Justifications for Admission: Justification of Admission Dx: N/A MARINA REYNOSO MD Feb 06, 2021 12:10
[2021-02-06] MEDS: LANSOPRAZOLE 30 MG TAB.RAP.DR PO SCH (14:10)
[2021-02-06] MEDS: CLOPIDOGREL BISULFATE 75 MG TABLET PO SCH (14:11)
[2021-02-06] MEDS: EZETIMIBE 10 MG TABLET. PO SCH (14:11)
[2021-02-06] MEDS: QUEtiapine 25 MG TABLET. PO SCH ×3 (14:11→21:24)
[2021-02-06] MEDS: ASPIRIN ENTERIC COATED 81 MG TABLET.DR. PO SCH (14:11)
[2021-02-06] MEDS: LACTOBACILLUS RHAMNOSUS GG 1 CAPSULE. PO SCH ×2 (14:12→21:24)
[2021-02-06] MEDS: AA 4.25 %/CALCIUM/LYTES/D5W 1,000 ML IV SCH ×2 (14:12→21:22)
[2021-02-06] MEDS: ISOSORBIDE MONONITRATE ER 30 MG TAB.ER.24H PO SCH (14:18)
[2021-02-06] MEDS: MINOXIDIL 2.5 MG TABLET PO SCH ×2 (14:19→21:23)
[2021-02-06] MEDS: HYDROcodone/APAP 7.5/325MG 1 TAB TABLET PO PRN (14:27)
[2021-02-06 15:00] VITALS: BP 148/87
--- NOTE | 2021-02-06 16:55 | NUR ---
Wound/Ostomy Care Wound Type/Assessment: wound care follow up for stage III PU to coccyx and DTI to left heel. Patient continues to ramble and not make sense, also doesn't follow commands when asked. Wounds cleansed, assessed, measured, and pictured. Treatment Recommendations/Plan: Recommendations for xeroform gauze and foam dressing to coccyx, then skin prep and foam dressing left heel. Apply heel medix while in bed to both heels for treatment and protection. Wound care again ordered these boots for patient as her previous ones were not in her room. Education provided: patient educated on dressing changes and PU treatment and management, but due to mental stats will need reinforcement. Offloading surface/device: Pt turned left side using wedge. Recommended Referrals/Tests: na Discharge Recommendations for dressings: Dressing change instructions left in room. No other wounds noted. Bed lowered and call light in reach and wound care will follow up on 02/12/21.
[2021-02-06] MEDS: cloNIDine TTS-3 1 PATCH PATCH.TDWK TD SCH (18:19)
[2021-02-06 19:00] VITALS: BP 128/47
[2021-02-06] MEDS: ATORVASTATIN CALCIUM 40 MG TABLET. PO SCH (21:24)
[2021-02-06] MEDS: MIRTAZAPINE 7.5 MG TABLET. PO SCH (21:24)
[2021-02-06 23:00] VITALS: BP 110/45
[2021-02-07 03:00] VITALS: BP 107/62
[2021-02-07] MEDS: AA 4.25 %/CALCIUM/LYTES/D5W 1,000 ML IV SCH ×2 (03:19→12:22)
[2021-02-07 07:00] VITALS: BP 179/58
[2021-02-07 07:34] LABS: BASO # 0.1 x10^3/uL (0.0-0.2); BASO % 1 % (0-3); EOS # 0.1 x10^3/uL (0.0-0.7); EOS % 1 % (0-3); HEMATOCRIT 24.1 % (36.0-47.0); HEMOGLOBIN 8.2 g/dL (12.0-15.5); LYMPH # 0.7 x10^3/uL (1.0-4.8); LYMPH % 8 % (24-48); MEAN CORPUSCULAR HEMOGLOBIN 31 pg (25-35); MEAN CORPUSCULAR HGB CONC 34 g/dL (31-37); MEAN CORPUSCULAR VOLUME 91 fL (79-100); MONO % 12 % (0-9); NEUT # 6.6 x10^3/uL (1.8-7.7); NEUT % 79 % (31-73); PLATELET COUNT 209 x10^3/uL (140-400); RED BLOOD COUNT 2.65 x10^6/uL (3.50-5.40); RED CELL DISTRIBUTION WIDTH 15.5 % (11.5-14.5); WHITE BLOOD COUNT 8.4 x10^3/uL (4.0-11.0)
[2021-02-07] MEDS: INSULIN LISPRO 300 UNITS/3 ML VIAL. SQ SCH ×3 (08:00→17:00)
[2021-02-07 08:01] LABS: ALBUMIN 2.8 g/dL (3.4-5.0); ALBUMIN/GLOBULIN RATIO 0.7 (1.0-1.7); CALCIUM 8.8 mg/dL (8.5-10.1); CREATININE 4.8 mg/dL (0.6-1.0); GFR 11.3; POTASSIUM 4.7 mmol/L (3.5-5.1); TOTAL BILIRUBIN 0.5 mg/dL (0.2-1.0); TOTAL PROTEIN 6.7 g/dL (6.4-8.2)
[2021-02-07] MEDS: METOCLOPRAMIDE ORAL SOLN 10 MG/10 ML SOLUTION. PO SCH ×4 (08:36→22:34)
[2021-02-07] MEDS: LACTOBACILLUS RHAMNOSUS GG 1 CAPSULE. PO SCH ×2 (08:36→22:35)
[2021-02-07] MEDS: EZETIMIBE 10 MG TABLET. PO SCH (08:36)
[2021-02-07] MEDS: QUEtiapine 25 MG TABLET. PO SCH ×3 (08:36→22:35)
[2021-02-07] MEDS: ASPIRIN ENTERIC COATED 81 MG TABLET.DR. PO SCH (08:37)
[2021-02-07] MEDS: ISOSORBIDE MONONITRATE ER 30 MG TAB.ER.24H PO SCH (08:37)
[2021-02-07] MEDS: MINOXIDIL 2.5 MG TABLET PO SCH ×2 (08:38→22:35)
[2021-02-07] MEDS: CARVEDILOL 12.5 MG TABLET. PO SCH ×2 (08:39→17:00)
[2021-02-07] MEDS: CLOPIDOGREL BISULFATE 75 MG TABLET PO SCH (08:39)
[2021-02-07] MEDS: LANSOPRAZOLE 30 MG TAB.RAP.DR PO SCH (08:39)
--- NOTE | 2021-02-07 09:19 | PDOC ---
IM PROGRESS NOTES- Subjective Subjective Patient is not eating. She is a poor historian. Gets agitated during dialysis. Remains naked in her room.Lying sideways in bed,half of the body outside. Objective Vitals/I&O Vital Signs Date Time Temp Pulse Resp B/P (MAP) Pulse Ox O2 Delivery O2 Flow Rate FiO2 02/07/21 08:42 77 179/58 02/07/21 07:00 97.5 16 96 Room Air 97.5 I & O 02/06/21 02/06/21 02/07/21 15:00 23:00 07:00 Intake Total 120 ml 0 ml Output Total 0 ml Balance 120 ml 0 ml Physical Exam Physical Exam General Appearance - alert and in no distress Chest - decreased breath sounds at bases Heart - S1 and S2 normal Abdomen - soft, non tender Neurological - alert and confused Musculoskeletal - generalized weakness Extremities - no edema Labs Laboratory Tests Test 02/06/21 13:24 02/06/21 16:45 02/06/21 21:17 02/07/21 06:00 Glucose (Fingerstick) 85 mg/dL (70-99) 97 mg/dL (70-99) 94 mg/dL (70-99) White Blood Count 8.4 x10^3/uL (4.0-11.0) Red Blood Count 2.65 x10^6/uL (3.50-5.40) L Hemoglobin 8.2 g/dL (12.0-15.5) L Hematocrit 24.1 % (36.0-47.0) L Mean Corpuscular Volume 91 fL (79-100) Mean Corpuscular Hemoglobin 31 pg (25-35) Mean Corpuscular Hemoglobin Concent 34 g/dL (31-37) Red Cell Distribution Width 15.5 % (11.5-14.5) H Platelet Count 209 x10^3/uL (140-400) Neutrophils (%) (Auto) 79 % (31-73) H Lymphocytes (%) (Auto) 8 % (24-48) L Monocytes (%) (Auto) 12 % (0-9) H Eosinophils (%) (Auto) 1 % (0-3) Basophils (%) (Auto) 1 % (0-3) Neutrophils # (Auto) 6.6 x10^3/uL (1.8-7.7) Lymphocytes # (Auto) 0.7 x10^3/uL (1.0-4.8) L Monocytes # (Auto) 1.0 x10^3/uL (0.0-1.1) Eosinophils # (Auto) 0.1 x10^3/uL (0.0-0.7) Basophils # (Auto) 0.1 x10^3/uL (0.0-0.2) Test 02/07/21 06:05 02/07/21 08:30 Sodium Level 130 mmol/L (136-145) L Potassium Level 4.7 mmol/L (3.5-5.1) Chloride Level 93 mmol/L (98-107) L Carbon Dioxide Level 31 mmol/L (21-32) Anion Gap 6 (6-14) Blood Urea Nitrogen 36 mg/dL (7-20) #H Creatinine 4.8 mg/dL (0.6-1.0) H Estimated GFR (Cockcroft-Gault) 11.3 BUN/Creatinine Ratio 8 (6-20) Glucose Level 106 mg/dL (70-99) H Calcium Level 8.8 mg/dL (8.5-10.1) Total Bilirubin 0.5 mg/dL (0.2-1.0) Aspartate Amino Transferase (AST) 34 U/L (15-37) Alanine Aminotransferase (ALT) 23 U/L (14-59) Alkaline Phosphatase 100 U/L (46-116) Total Protein 6.7 g/dL (6.4-8.2) Albumin 2.8 g/dL (3.4-5.0) L Albumin/Globulin Ratio 0.7 (1.0-1.7) L Glucose (Fingerstick) 112 mg/dL (70-99) H Laboratory Tests 02/07/21 06:00 Laboratory Tests 02/07/21 06:05 Assessment Assessment 1. Acute metabolic encephalopathy. Continue to give her lorazepam as needed. Monitor closely in the Intensive Care Unit. Consult Dr. Martinez for neurology evaluation and management. Likely due to hypertensive crisis.Mental status is improving. 2. Acute hypertensive crisis. Patient was initially treated with Cardene IV drip. Consult Dr. Leahy for cardiology evaluation and management. 3. Elevated troponin. This may be due to demand ischemia and also end-stage renal disease may be contributing. 4. End-stage renal disease, on hemodialysis. 5. Coronary artery disease. 6. Diastolic congestive heart failure. 7. Physical deconditioning. 8. Asthma. 9. Gastroesophageal reflux disease. 10. Hyperlipidemia. 11. Severe pulmonary hypertension. 12. 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 13. History of depression. 14. 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 Monitor blood sugar. 15. History of secondary hyperparathyroidism. 16. Marijuana abuse Plan: COVID-19 infection. SARS-CoV-2 PCR test is positive. This may be also contributing to patient's poor appetite, body aches and confusion.I will also consult Dr. Ray Nino for Infectious Disease evaluation and management because of her fever of 103 degrees Fahrenheit. Her chest x-ray, urinalysis as well as SARS-CoV-2 antigen test is negative. Consult Dr. Nino for infectious disease evaluation and management. Patient is running low-grade fever. WBC count is 8.1. On IV Vancomycin. Cefepime has been changed to IV Zosyn. Bl c/s 06/09 Gram + cocci- ? contaminant. CT abd/pelvis 01/28/21 1. Small right pleural effusion and right greater than left posterior dependent and basilar atelectasis and possible superimposed pleural parenchymal scarring. There is no consolidated pneumonia. 2. Soft tissue stranding and small amount of soft tissue gas within the right axilla and base of the right neck. Correlate for recent instrumentation or catheterization. 3. Moderate colonic stool. 4. Mild bladder wall thickening. This may be due to underdistention or cystitis. Correlate with urinalysis. 5. Trace nonspecific pelvic free fluid and mild body wall edema. 6. Renal atrophy. US rt UE- negative for DVT. Acute metabolic encephalopathy-most likely due to COVID-19 infection and may be multifactorial.Slightly better. Increase Seroquel to 25 mg p.o. twice daily and 25 mg at bedtime. I will add mirtazapine at bedtime. Severe malnutrition-patient is not eating but also does not allow any IV fluids or IV access. I have encouraged her to drink Nepro. Rt arm swollen. Change IV to PICC line. Started on PPN yesterday. D/w staff. place midline and restarted PPN. Patient has constipation and has stool on CT of the abdomen. Has abdominal pain also. Change senna S to 2 tablets daily. Prognosis of this patient is extremely poor due to her multiple medical problems. Hypotension on January 31, 2021. Corrected with IV fluids.BP low today. Apply hold parameters for BP meds as needed. Continue low-dose Seroquel. Constipation-not eating. Discussed with infectious disease specialist. Change IV antibiotics to p.o. Augmentin. Patient is also refusing oral medications. D/w daughter Kerri -about patient's condition,treatment,options,prognosis on 02/04/21. Family wants to continue present care and hospice was also discussed with her. Because of her persistent agitation, encephalopathy, declining to eat and needing hemodialysis with agitation worse during dialysis at times and pulling on the catheters it would be appropriate to send her to a facility that can do in-house dialysis such as [facility] or [facility]. Consult LTACH. D/w Dr. Youngblood,nursing physical testing supervisor and social security benefits interviewer yesterday.. Patient does not qualify for LTAC. Looking for an in-house dialysis facility. D/w - yesterday. Due to her agitation and need for repeat HD on the same day frequently he recommends in house dialysis facility. Plan Plan For more details regarding further plans, please refer to the orders. Justifications for Admission Other Justification GAURAV DANG MD Feb 07, 2021 09:19
[2021-02-07 11:00] VITALS: BP 98/95
--- NOTE | 2021-02-07 12:50 | PDOC ---
DATE OF SERVICE DATE: 02/07/21 TIME: 12:49 SUBJECTIVE ROS stable, OBJECTIVE Vital Signs Vital Signs Date Time Temp Pulse Resp B/P (MAP) Pulse Ox O2 Delivery O2 Flow Rate FiO2 02/07/21 11:00 98.0 57 16 98/95 (96) 98 Room Air 98.0 I & 0 Intake and Output 02/07/21 07:00 Intake Total 120 ml Output Total 0 ml Balance 120 ml Intake Oral 120 ml Output Urine Total 0 ml # Voids 1 PHYSICAL EXAM Physical Exam GEN: NAD HEENT: Normocephalic atraumatic,OM moist NECK supple LUNGS: Decreased breath sound at the bases , no accessory muscle use HEART: S1, S2 regular. ABDOMEN: Soft, nontender, bowel sounds present no pereira EXTREMITIES: Right upper extremity mild edema present , AVF + SKIN: Unremarkable. NEUROLOGIC: alert, moves all 4 extremities DIAGNOSIS/ASSESSMENT Assessment & Plan ESRD on HD TTS , No indication for dialysis today Access Lt Arm AVF Anemia- EDGAR on hold COVID-19 positive. Encephalopathy , improving Coronary artery disease. Hypertension BP low h/o Cerebrovascular accident in the past. Gastroparesis-nausea and vomiting resolved COMMENT/RELEVANT DATA Meds Current Medications Medications (Trade) Dose Ordered Sig/Srinath Start Time Stop Time Status Last Admin Dose Admin Acetaminophen (Tylenol) 500 mg 1X PRN PRN 02/04/21 19:00 02/05/21 18:59 DC Acetaminophen/ Hydrocodone Bitart (Lortab 7.5/325) 1 tab PRN Q6HRS PRN 01/17/21 20:45 02/06/21 14:27 1 TAB Albumin Human 200 ml @ 200 mls/hr 1X PRN PRN 02/04/21 19:00 02/05/21 00:59 DC Amino Acids/ Electrolytes/ Dextrose 1,000 ml @ 80 mls/hr [id number] 01/27/21 18:45 02/07/21 12:22 80 MLS/HR Amoxicillin/ Clavulanate Potassium (Augmentin 500/ 125mg) 1 tab DAILY 02/04/21 14:00 02/05/21 11:21 DC 02/05/21 07:17 1 TAB Aspirin (Aspirin Rectal Supp) 300 mg 1X ONCE 01/16/21 11:15 01/16/21 11:16 DC 01/16/21 12:05 300 MG Aspirin (Ecotrin) 81 mg DAILY 01/17/21 13:00 02/07/21 08:37 81 MG Atorvastatin Calcium (Lipitor) 80 mg HS 01/17/21 21:00 02/06/21 21:24 80 MG Bisacodyl (Dulcolax Supp) 10 mg 1X ONCE 02/01/21 09:45 02/01/21 09:50 DC 02/01/21 11:12 10 MG Calcium Carbonate/ Glycine (Tums) 500 mg PRN AFTMEALHC PRN 01/22/21 03:15 02/03/21 17:32 500 MG Carvedilol (Coreg) 12.5 mg BIDWMEALS 01/17/21 17:00 02/07/21 08:39 12.5 MG Cefepime HCl (Maxipime) 3 gm Sa 02/01/21 16:00 01/30/21 10:40 DC Clonidine HCl (Catapres Tts-3) 1 patch WEEKLY 01/23/21 09:00 02/06/21 18:19 1 PATCH Clonidine HCl (Catapres) 0.2 mg BID 01/17/21 21:00 01/23/21 10:30 DC 01/23/21 09:26 0.2 MG Clopidogrel Bisulfate (Plavix) 75 mg DAILY 01/17/21 13:00 02/07/21 08:39 75 MG Dextrose (Dextrose 50%-Water Syringe) 12.5 gm PRN Q15MIN PRN 01/16/21 11:30 Diphenhydramine HCl (Benadryl) 25 mg 1X PRN PRN 02/04/21 19:00 02/05/21 18:59 DC EZETIMIBE (Zetia) 10 mg DAILY 01/17/21 13:00 02/07/21 08:36 10 MG Fentanyl Citrate (Fentanyl 2ml Vial) 25 mcg PRN Q3HRS PRN 01/18/21 14:00 01/21/21 16:15 25 MCG Hydralazine HCl (Apresoline Inj) 20 mg PRN Q4HRS PRN 01/16/21 13:00 01/16/21 13:30 20 MG Hydralazine HCl (Apresoline) 50 mg TID 01/17/21 14:00 02/07/21 08:42 50 MG Info (PHARMACY MONITORING -- do not chart) 1 each PRN DAILY PRN 02/06/21 08:30 UNV Insulin Human Lispro (HumaLOG) 0-5 UNITS TIDWMEALS 01/16/21 12:00 Isosorbide Mononitrate (Imdur) 120 mg DAILY 01/17/21 13:00 02/07/21 08:37 120 MG Labetalol HCl (Normodyne Iv Push) 10 mg 1X ONCE 01/16/21 11:00 01/16/21 11:01 DC 01/16/21 12:03 10 MG Lactobacillus Rhamnosus (Culturelle) 1 cap BID 01/29/21 21:00 02/07/21 08:36 1 CAP Lansoprazole (Prevacid) 30 mg DAILY 01/29/21 09:00 02/07/21 08:39 30 MG Lidocaine HCl (Xylocaine-Mpf 1% 2ml Vial) 2 ml 1X PRN PRN 01/30/21 13:00 01/31/21 12:59 DC Lorazepam (Ativan Inj) 1 mg PRN Q4HRS PRN 01/16/21 12:45 02/06/21 14:41 1 MG Lorazepam (Ativan) 0.5 mg PRN Q6HRS PRN 01/19/21 21:15 02/05/21 07:16 0.5 MG Metoclopramide HCl (Reglan Oral Solution) 5 mg TIDACHC 01/24/21 09:30 02/07/21 08:36 5 MG Metoclopramide HCl (Reglan Vial) 5 mg PRN Q6HRS PRN 01/22/21 11:45 01/24/21 09:22 DC Minoxidil (Loniten) 2.5 mg BID 01/17/21 21:00 02/07/21 08:38 2.5 MG Mirtazapine (Remeron) 7.5 mg QHS 02/05/21 21:00 02/06/21 21:24 7.5 MG Nicardipine HCl 50 mg/Sodium Chloride 250 ml @ 25 mls/hr CONT PRN 01/16/21 14:00 01/17/21 16:08 DC 01/17/21 04:25 25 MLS/HR Ondansetron HCl (Zofran Odt) 4 mg PRN Q6HRS PRN 01/19/21 09:30 02/03/21 17:32 4 MG Ondansetron HCl (Zofran) 4 mg PRN Q8HRS PRN 01/16/21 11:30 01/17/21 11:29 DC Oxycodone HCl (Roxicodone) 10 mg PRN Q4HRS PRN 01/19/21 17:30 02/05/21 23:57 10 MG Pantoprazole Sodium (PROTONIX VIAL for IV PUSH) 40 mg DAILYAC 01/23/21 07:30 01/24/21 10:51 DC Pantoprazole Sodium (Protonix) 40 mg DAILYAC 01/25/21 07:30 01/28/21 10:18 DC Piperacillin Sod/ Tazobactam Sod 2.25 gm/Sodium Chloride 50 ml @ 100 mls/hr Q8HRS 01/30/21 14:00 02/03/21 09:57 DC 02/03/21 05:35 100 MLS/HR Quetiapine Fumarate (SEROquel) 25 mg QHS 02/01/21 21:00 02/06/21 21:24 25 MG Senna/Docusate Sodium (Senna Plus) 2 tab DAILY08 PRN 01/31/21 09:45 02/02/21 09:46 2 TAB Simethicone (Gas-X) 80 mg PRN TID PRN 01/19/21 21:15 01/21/21 06:04 80 MG Sodium Chloride 1,000 ml @ 400 mls/hr Q2H30M PRN 02/06/21 08:30 02/06/21 20:29 DC Vancomycin HCl (Vanco Per Pharmacy) 1 each PRN DAILY PRN 01/27/21 10:30 02/03/21 09:57 DC 02/03/21 07:55 1 EACH Vancomycin HCl (Vancomycin Random Level) 1 each 1X ONCE 01/29/21 05:00 01/29/21 05:01 DC Vancomycin HCl 1.5 gm/Sodium Chloride 500 ml @ 250 mls/hr 1X ONCE 01/27/21 11:00 01/27/21 12:59 DC 01/27/21 17:47 250 MLS/HR Vancomycin HCl 500 mg/Sodium Chloride 100 ml @ 100 mls/hr QTUTHSA 01/30/21 16:00 02/03/21 09:57 DC 01/30/21 18:05 100 MLS/HR Ziprasidone (Geodon Im) 20 mg 1X ONCE 01/16/21 08:00 01/16/21 08:05 DC 01/16/21 08:08 20 MG Lab Laboratory Tests Test 02/06/21 13:24 02/06/21 16:45 02/06/21 21:17 02/07/21 06:00 Glucose (Fingerstick) 85 mg/dL (70-99) 97 mg/dL (70-99) 94 mg/dL (70-99) White Blood Count 8.4 x10^3/uL (4.0-11.0) Red Blood Count 2.65 x10^6/uL (3.50-5.40) Hemoglobin 8.2 g/dL (12.0-15.5) Hematocrit 24.1 % (36.0-47.0) Mean Corpuscular Volume 91 fL (79-100) Mean Corpuscular Hemoglobin 31 pg (25-35) Mean Corpuscular Hemoglobin Concent 34 g/dL (31-37) Red Cell Distribution Width 15.5 % (11.5-14.5) Platelet Count 209 x10^3/uL (140-400) Neutrophils (%) (Auto) 79 % (31-73) Lymphocytes (%) (Auto) 8 % (24-48) Monocytes (%) (Auto) 12 % (0-9) Eosinophils (%) (Auto) 1 % (0-3) Basophils (%) (Auto) 1 % (0-3) Neutrophils # (Auto) 6.6 x10^3/uL (1.8-7.7) Lymphocytes # (Auto) 0.7 x10^3/uL (1.0-4.8) Monocytes # (Auto) 1.0 x10^3/uL (0.0-1.1) Eosinophils # (Auto) 0.1 x10^3/uL (0.0-0.7) Basophils # (Auto) 0.1 x10^3/uL (0.0-0.2) Test 02/07/21 06:05 02/07/21 08:30 02/07/21 11:51 Sodium Level 130 mmol/L (136-145) Potassium Level 4.7 mmol/L (3.5-5.1) Chloride Level 93 mmol/L (98-107) Carbon Dioxide Level 31 mmol/L (21-32) Anion Gap 6 (6-14) Blood Urea Nitrogen 36 mg/dL (7-20) Creatinine 4.8 mg/dL (0.6-1.0) Estimated GFR (Cockcroft-Gault) 11.3 BUN/Creatinine Ratio 8 (6-20) Glucose Level 106 mg/dL (70-99) Calcium Level 8.8 mg/dL (8.5-10.1) Total Bilirubin 0.5 mg/dL (0.2-1.0) Aspartate Amino Transf (AST/SGOT) 34 U/L (15-37) Alanine Aminotransferase (ALT/SGPT) 23 U/L (14-59) Alkaline Phosphatase 100 U/L (46-116) Total Protein 6.7 g/dL (6.4-8.2) Albumin 2.8 g/dL (3.4-5.0) Albumin/Globulin Ratio 0.7 (1.0-1.7) Glucose (Fingerstick) 112 mg/dL (70-99) 113 mg/dL (70-99) Results All relevant outside records, renal labs, imaging studies, telemetry/EKG's were reviewed. Justicifation of Admission Dx: Justifications for Admission: Justification of Admission Dx: N/A RY ESCOBAR MD Feb 07, 2021 12:50
--- NOTE | 2021-02-07 13:35 | PDOC ---
G I PROGRESS NOTE Subjective Continually crying out. Unclear any abdominal issues. Physical Exam Lungs clear anteriorly. RRR Abdomen soft, not tender not distended. Review of Relevant I have reviewed the following items richard (where applicable) has been applied. Labs Laboratory Tests Test 02/05/21 16:55 02/06/21 06:10 02/06/21 07:19 02/06/21 13:24 Glucose (Fingerstick) 175 mg/dL (70-99) 124 mg/dL (70-99) 85 mg/dL (70-99) Sodium Level 132 mmol/L (136-145) Potassium Level 5.6 mmol/L (3.5-5.1) Chloride Level 96 mmol/L (98-107) Carbon Dioxide Level 29 mmol/L (21-32) Anion Gap 7 (6-14) Blood Urea Nitrogen 62 mg/dL (7-20) Creatinine 6.1 mg/dL (0.6-1.0) Estimated GFR (Cockcroft-Gault) 8.6 Glucose Level 119 mg/dL (70-99) Calcium Level 8.1 mg/dL (8.5-10.1) Test 02/06/21 16:45 02/06/21 21:17 02/07/21 06:00 02/07/21 06:05 Glucose (Fingerstick) 97 mg/dL (70-99) 94 mg/dL (70-99) White Blood Count 8.4 x10^3/uL (4.0-11.0) Red Blood Count 2.65 x10^6/uL (3.50-5.40) Hemoglobin 8.2 g/dL (12.0-15.5) Hematocrit 24.1 % (36.0-47.0) Mean Corpuscular Volume 91 fL (79-100) Mean Corpuscular Hemoglobin 31 pg (25-35) Mean Corpuscular Hemoglobin Concent 34 g/dL (31-37) Red Cell Distribution Width 15.5 % (11.5-14.5) Platelet Count 209 x10^3/uL (140-400) Neutrophils (%) (Auto) 79 % (31-73) Lymphocytes (%) (Auto) 8 % (24-48) Monocytes (%) (Auto) 12 % (0-9) Eosinophils (%) (Auto) 1 % (0-3) Basophils (%) (Auto) 1 % (0-3) Neutrophils # (Auto) 6.6 x10^3/uL (1.8-7.7) Lymphocytes # (Auto) 0.7 x10^3/uL (1.0-4.8) Monocytes # (Auto) 1.0 x10^3/uL (0.0-1.1) Eosinophils # (Auto) 0.1 x10^3/uL (0.0-0.7) Basophils # (Auto) 0.1 x10^3/uL (0.0-0.2) Sodium Level 130 mmol/L (136-145) Potassium Level 4.7 mmol/L (3.5-5.1) Chloride Level 93 mmol/L (98-107) Carbon Dioxide Level 31 mmol/L (21-32) Anion Gap 6 (6-14) Blood Urea Nitrogen 36 mg/dL (7-20) Creatinine 4.8 mg/dL (0.6-1.0) Estimated GFR (Cockcroft-Gault) 11.3 BUN/Creatinine Ratio 8 (6-20) Glucose Level 106 mg/dL (70-99) Calcium Level 8.8 mg/dL (8.5-10.1) Total Bilirubin 0.5 mg/dL (0.2-1.0) Aspartate Amino Transf (AST/SGOT) 34 U/L (15-37) Alanine Aminotransferase (ALT/SGPT) 23 U/L (14-59) Alkaline Phosphatase 100 U/L (46-116) Total Protein 6.7 g/dL (6.4-8.2) Albumin 2.8 g/dL (3.4-5.0) Albumin/Globulin Ratio 0.7 (1.0-1.7) Test 02/07/21 08:30 02/07/21 11:51 Glucose (Fingerstick) 112 mg/dL (70-99) 113 mg/dL (70-99) Laboratory Tests Test 02/06/21 16:45 02/06/21 21:17 02/07/21 06:00 02/07/21 06:05 Glucose (Fingerstick) 97 mg/dL (70-99) 94 mg/dL (70-99) White Blood Count 8.4 x10^3/uL (4.0-11.0) Red Blood Count 2.65 x10^6/uL (3.50-5.40) Hemoglobin 8.2 g/dL (12.0-15.5) Hematocrit 24.1 % (36.0-47.0) Mean Corpuscular Volume 91 fL (79-100) Mean Corpuscular Hemoglobin 31 pg (25-35) Mean Corpuscular Hemoglobin Concent 34 g/dL (31-37) Red Cell Distribution Width 15.5 % (11.5-14.5) Platelet Count 209 x10^3/uL (140-400) Neutrophils (%) (Auto) 79 % (31-73) Lymphocytes (%) (Auto) 8 % (24-48) Monocytes (%) (Auto) 12 % (0-9) Eosinophils (%) (Auto) 1 % (0-3) Basophils (%) (Auto) 1 % (0-3) Neutrophils # (Auto) 6.6 x10^3/uL (1.8-7.7) Lymphocytes # (Auto) 0.7 x10^3/uL (1.0-4.8) Monocytes # (Auto) 1.0 x10^3/uL (0.0-1.1) Eosinophils # (Auto) 0.1 x10^3/uL (0.0-0.7) Basophils # (Auto) 0.1 x10^3/uL (0.0-0.2) Sodium Level 130 mmol/L (136-145) Potassium Level 4.7 mmol/L (3.5-5.1) Chloride Level 93 mmol/L (98-107) Carbon Dioxide Level 31 mmol/L (21-32) Anion Gap 6 (6-14) Blood Urea Nitrogen 36 mg/dL (7-20) Creatinine 4.8 mg/dL (0.6-1.0) Estimated GFR (Cockcroft-Gault) 11.3 BUN/Creatinine Ratio 8 (6-20) Glucose Level 106 mg/dL (70-99) Calcium Level 8.8 mg/dL (8.5-10.1) Total Bilirubin 0.5 mg/dL (0.2-1.0) Aspartate Amino Transf (AST/SGOT) 34 U/L (15-37) Alanine Aminotransferase (ALT/SGPT) 23 U/L (14-59) Alkaline Phosphatase 100 U/L (46-116) Total Protein 6.7 g/dL (6.4-8.2) Albumin 2.8 g/dL (3.4-5.0) Albumin/Globulin Ratio 0.7 (1.0-1.7) Test 02/07/21 08:30 02/07/21 11:51 Glucose (Fingerstick) 112 mg/dL (70-99) 113 mg/dL (70-99) Microbiology 01/27/21 Blood Culture - Final, Complete Vitals/I & O Vital Sign - Last 24 Hours 02/06/21 02/06/21 02/06/21 02/06/21 14:00 14:18 14:18 14:19 Pulse 82 82 82 82 B/P (MAP) 90/73 90/73 90/73 90/73 02/06/21 02/06/21 02/06/21 02/06/21 14:27 15:00 15:00 19:00 Temp 98.0 99.1 98.0 99.1 Pulse 78 78 Resp 19 19 18 16 B/P (MAP) 148/87 (107) 128/47 (74) Pulse Ox 93 93 93 97 O2 Delivery Room Air Room Air 02/06/21 02/06/21 02/06/21 02/06/21 20:30 21:23 21:25 23:00 Temp 98.7 98.7 Pulse 78 78 79 Resp 18 B/P (MAP) 128/47 128/47 110/45 (66) Pulse Ox 96 O2 Delivery Room Air 02/07/21 02/07/21 02/07/21 02/07/21 03:00 07:00 08:37 08:38 Temp 98.2 97.5 98.2 97.5 Pulse 77 66 66 66 Resp 18 16 B/P (MAP) 107/62 (77) 179/58 (98) 179/66 179/66 Pulse Ox 99 96 O2 Delivery Room Air 02/07/21 02/07/21 02/07/21 08:39 08:42 11:00 Temp 98.0 98.0 Pulse 66 77 57 Resp 16 B/P (MAP) 179/58 179/58 98/95 (96) Pulse Ox 98 O2 Delivery Room Air Intake and Output 02/06/21 02/06/2121 15:00 23:00 07:00 Intake Total 120 ml 0 ml Output Total 0 ml Balance 120 ml 0 ml Problem List Problems Medical Problems: (1) Altered mental status Status: Acute (2) ESRD (end stage renal disease) on dialysis Status: Acute (3) Hypertensive urgency Status: Acute Assessment Abdominal pain--better? Plan of Care Note Continue current regimen. Justicifation of Admission Dx: Justifications for Admission: Justification of Admission Dx: N/A PATRICIA BATRES MD Feb 07, 2021 13:35
[2021-02-07 15:00] VITALS: BP 144/55
--- NOTE | 2021-02-07 15:29 | NUR ---
SS following up with discharge planning. SS reviewed pt chart and discussed with pt RN. Pt is currently on room air. COVID19 recovered. Pt has PO Diet. Pt on Clinimix. Dr. Ng requesting referrals to facilities with inpatient dialysis. Referral to [facility], ; fax [phone], requested. SS faxed referral as requested. SS currently awaiting acceptance decisions at this time. SS will continue to follow for discharge planning.
[2021-02-07 19:00] VITALS: BP 111/58
[2021-02-07] MEDS: MIRTAZAPINE 7.5 MG TABLET. PO SCH (22:34)
[2021-02-07] MEDS: ATORVASTATIN CALCIUM 40 MG TABLET. PO SCH (22:35)
[2021-02-07 23:18] VITALS: BP 115/41
[2021-02-08] MEDS: AA 4.25 %/CALCIUM/LYTES/D5W 1,000 ML IV SCH ×3 (02:17→23:22)
[2021-02-08 03:00] VITALS: BP 100/52
[2021-02-08 07:00] VITALS: BP 95/35
[2021-02-08] MEDS ORDERED: IV NORMAL SALINE 1000ML BAG 1,000 ML IV PRN ×2 (07:30)
[2021-02-08] MEDS ORDERED: DIALYSIS PATIENT. MC PRN ×2 (07:30)
[2021-02-08] MEDS: CARVEDILOL 12.5 MG TABLET. PO SCH ×2 (08:00→17:00)
[2021-02-08] MEDS: INSULIN LISPRO 300 UNITS/3 ML VIAL. SQ SCH ×3 (08:00→17:00)
[2021-02-08] MEDS: EZETIMIBE 10 MG TABLET. PO SCH (09:00)
[2021-02-08] MEDS: MINOXIDIL 2.5 MG TABLET PO SCH ×2 (09:00→21:33)
[2021-02-08] MEDS: QUEtiapine 25 MG TABLET. PO SCH ×3 (09:00→21:33)
--- NOTE | 2021-02-08 09:04 | PDOC ---
IM PROGRESS NOTES- Subjective Subjective Patient is not eating. She is a poor historian. Gets agitated during dialysis. Remains naked in her room.Lying sideways in bed,half of the body outside. Objective Vitals/I&O Vital Signs Date Time Temp Pulse Resp B/P (MAP) Pulse Ox O2 Delivery O2 Flow Rate FiO2 02/08/21 07:00 61 20 95/35 (55) 99 Room Air 02/08/21 03:00 98.0 98.0 I & O 02/07/21 02/07/21 02/08/21 15:00 23:00 07:00 Intake Total 0 ml 0 ml 0 ml Output Total 0 ml Balance 0 ml 0 ml 0 ml Physical Exam Physical Exam General Appearance - alert and in no distress Chest - decreased breath sounds at bases Heart - S1 and S2 normal Abdomen - soft, non tender Neurological - alert and confused Musculoskeletal - generalized weakness Extremities - no edema Labs Laboratory Tests Test 02/07/21 11:51 02/07/21 20:30 Glucose (Fingerstick) 113 mg/dL (70-99) H 132 mg/dL (70-99) H Assessment Assessment 1. Acute metabolic encephalopathy. Continue to give her lorazepam as needed. Monitor closely in the Intensive Care Unit. Consult Dr. Martinez for neurology evaluation and management. Likely due to hypertensive crisis.Mental status is improving. 2. Acute hypertensive crisis. Patient was initially treated with Cardene IV drip. Consult Dr. Leahy for cardiology evaluation and management. 3. Elevated troponin. This may be due to demand ischemia and also end-stage renal disease may be contributing. 4. End-stage renal disease, on hemodialysis. 5. Coronary artery disease. 6. Diastolic congestive heart failure. 7. Physical deconditioning. 8. Asthma. 9. Gastroesophageal reflux disease. 10. Hyperlipidemia. 11. Severe pulmonary hypertension. 12. 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 13. History of depression. 14. 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 Monitor blood sugar. 15. History of secondary hyperparathyroidism. 16. Marijuana abuse Plan: COVID-19 infection. SARS-CoV-2 PCR test is positive. This may be also contributing to patient's poor appetite, body aches and confusion.I will also consult Dr. Ray Nino for Infectious Disease evaluation and management because of her fever of 103 degrees Fahrenheit. Her chest x-ray, urinalysis as well as SARS-CoV-2 antigen test is negative. Consult Dr. Nino for infectious disease evaluation and management. Patient is running low-grade fever. WBC count is 8.1. On IV Vancomycin. Cefepime has been changed to IV Zosyn. Bl c/s 06/09 Gram + cocci- ? contaminant. CT abd/pelvis 01/28/21 1. Small right pleural effusion and right greater than left posterior dependent and basilar atelectasis and possible superimposed pleural parenchymal scarring. There is no consolidated pneumonia. 2. Soft tissue stranding and small amount of soft tissue gas within the right axilla and base of the right neck. Correlate for recent instrumentation or catheterization. 3. Moderate colonic stool. 4. Mild bladder wall thickening. This may be due to underdistention or cystitis. Correlate with urinalysis. 5. Trace nonspecific pelvic free fluid and mild body wall edema. 6. Renal atrophy. US rt UE- negative for DVT. Acute metabolic encephalopathy-most likely due to COVID-19 infection and may be multifactorial.Slightly better. Increase Seroquel to 25 mg p.o. twice daily and 25 mg at bedtime. I will add mirtazapine at bedtime. Severe malnutrition-patient is not eating but also does not allow any IV fluids or IV access. I have encouraged her to drink Nepro. Rt arm swollen. Change IV to PICC line. Started on PPN yesterday. D/w staff. place midline and restarted PPN. Patient has constipation and has stool on CT of the abdomen. Has abdominal pain also. Change senna S to 2 tablets daily. Prognosis of this patient is extremely poor due to her multiple medical problems. Hypotension - .BP low today. Apply hold parameters for BP meds as needed. Continue low-dose Seroquel. Constipation-not eating. Discussed with infectious disease specialist. Change IV antibiotics to p.o. Augmentin. Patient is also refusing oral medications. D/w daughter Kerri -about patient's condition,treatment,options,prognosis on 02/04/21. Family wants to continue present care and hospice was also discussed with her. Because of her persistent agitation, encephalopathy, declining to eat and needing hemodialysis with agitation worse during dialysis at times and pulling on the catheters it would be appropriate to send her to a facility that can do in-house dialysis such as [facility] or [facility]. Consult LTACH. D/w Dr. Youngblood,nursing tile layer supervisor and executive secretary social welfare yesterday.. Patient does not qualify for LTAC. Looking for an in-house dialysis facility. D/w - yesterday. Due to her agitation and need for repeat HD on the same day frequently he recommends in house dialysis facility. Blood pressure is low. Change [facility] TTS to one topically once a week. Patient is getting dialysis but per staff fluid will not be taken off. Plan Plan For more details regarding further plans, please refer to the orders. Justifications for Admission Other Justification GAURAV DANG MD Feb 08, 2021 09:04
[2021-02-08] MEDS ORDERED: cloNIDine TTS-1 1 PATCH PATCH.TDWK TD SCH (11:00)
[2021-02-08] MEDS: METOCLOPRAMIDE ORAL SOLN 10 MG/10 ML SOLUTION. PO SCH ×2 (11:30→16:07)
[2021-02-08 12:00] VITALS: BP 146/121
--- NOTE | 2021-02-08 12:49 | PDOC ---
PROGRESS NOTES Date of Service DATE: 02/08/21 TIME: 12:47 Subjective Subjective SEEN IN FOLLOW UP OF ESRD Objective Objective Vital Signs Date Time Temp Pulse Resp B/P (MAP) Pulse Ox O2 Delivery O2 Flow Rate FiO2 02/08/21 07:00 61 20 95/35 (55) 99 Room Air 02/08/21 03:00 98.0 98.0 02/04/21 02:45 2.0 Intake and Output 02/08/21 07:00 Intake Total 0 ml Output Total 0 ml Balance 0 ml Intake Oral 0 ml Output Urine Total 0 ml Stool Total 0 ml Physical Exam Heart: Regular rate, Normal S1, Normal S2, No murmurs, Gallops Lungs: Clear to auscultation, Normal air movement Diagnosis RENAL FAILURE: ESRD Assessment Assessment Problems Medical Problems: (1) Altered mental status Status: Acute (2) ESRD (end stage renal disease) on dialysis Status: Acute (3) Hypertensive urgency Status: Acute Plan Plan of Care DIALYSIS TODAY AND TOLERATED WELL Comment Review of Relevant I have reviewed the following items richard (where applicable) has been applied. Labs Laboratory Tests Test 02/06/21 13:24 02/06/21 16:45 02/06/21 21:17 02/07/21 06:00 Glucose (Fingerstick) 85 mg/dL (70-99) 97 mg/dL (70-99) 94 mg/dL (70-99) White Blood Count 8.4 x10^3/uL (4.0-11.0) Red Blood Count 2.65 x10^6/uL (3.50-5.40) Hemoglobin 8.2 g/dL (12.0-15.5) Hematocrit 24.1 % (36.0-47.0) Mean Corpuscular Volume 91 fL (79-100) Mean Corpuscular Hemoglobin 31 pg (25-35) Mean Corpuscular Hemoglobin Concent 34 g/dL (31-37) Red Cell Distribution Width 15.5 % (11.5-14.5) Platelet Count 209 x10^3/uL (140-400) Neutrophils (%) (Auto) 79 % (31-73) Lymphocytes (%) (Auto) 8 % (24-48) Monocytes (%) (Auto) 12 % (0-9) Eosinophils (%) (Auto) 1 % (0-3) Basophils (%) (Auto) 1 % (0-3) Neutrophils # (Auto) 6.6 x10^3/uL (1.8-7.7) Lymphocytes # (Auto) 0.7 x10^3/uL (1.0-4.8) Monocytes # (Auto) 1.0 x10^3/uL (0.0-1.1) Eosinophils # (Auto) 0.1 x10^3/uL (0.0-0.7) Basophils # (Auto) 0.1 x10^3/uL (0.0-0.2) Test 02/07/21 06:05 02/07/21 08:30 02/07/21 11:51 02/07/21 20:30 Sodium Level 130 mmol/L (136-145) Potassium Level 4.7 mmol/L (3.5-5.1) Chloride Level 93 mmol/L (98-107) Carbon Dioxide Level 31 mmol/L (21-32) Anion Gap 6 (6-14) Blood Urea Nitrogen 36 mg/dL (7-20) Creatinine 4.8 mg/dL (0.6-1.0) Estimated GFR (Cockcroft-Gault) 11.3 BUN/Creatinine Ratio 8 (6-20) Glucose Level 106 mg/dL (70-99) Calcium Level 8.8 mg/dL (8.5-10.1) Total Bilirubin 0.5 mg/dL (0.2-1.0) Aspartate Amino Transf (AST/SGOT) 34 U/L (15-37) Alanine Aminotransferase (ALT/SGPT) 23 U/L (14-59) Alkaline Phosphatase 100 U/L (46-116) Total Protein 6.7 g/dL (6.4-8.2) Albumin 2.8 g/dL (3.4-5.0) Albumin/Globulin Ratio 0.7 (1.0-1.7) Glucose (Fingerstick) 112 mg/dL (70-99) 113 mg/dL (70-99) 132 mg/dL (70-99) Test 02/08/21 07:57 Glucose (Fingerstick) 114 mg/dL (70-99) Laboratory Tests Test 02/07/21 20:30 02/08/21 07:57 Glucose (Fingerstick) 132 mg/dL (70-99) 114 mg/dL (70-99) Microbiology 01/27/21 Blood Culture - Final, Complete Medications Current Medications Fentanyl Citrate (Fentanyl 2ml Vial) 75 mcg 1X ONCE IVP Last administered on 01/16/21at 08:31; Start 01/16/21 at 08:00; Stop 01/16/21 at 08:05; Status DC Ziprasidone (Geodon Im) 20 mg 1X ONCE IM Last administered on 01/16/21at 08:08; Start 01/16/21 at 08:00; Stop 01/16/21 at 08:05; Status DC Lorazepam (Ativan Inj) 2 mg 1X ONCE IVP Last administered on 01/16/21at 08:45; Start 01/16/21 at 08:45; Stop 01/16/21 at 08:46; Status DC Hydralazine HCl (Apresoline Inj) 20 mg 1X ONCE IVP Last administered on 01/16/21at 09:04; Start 01/16/21 at 09:00; Stop 01/16/21 at 09:02; Status DC Lorazepam (Ativan Inj) 2 mg 1X ONCE IVP Last administered on 01/16/21at 09:40; Start 01/16/21 at 09:30; Stop 01/16/21 at 09:31; Status DC Labetalol HCl (Normodyne Iv Push) 10 mg 1X ONCE IVP Last administered on 01/16/21at 12:03; Start 01/16/21 at 11:00; Stop 01/16/21 at 11:01; Status DC Aspirin (Aspirin Rectal Supp) 300 mg 1X ONCE OR Last administered on 01/16/21at 12:05; Start 01/16/21 at 11:15; Stop 01/16/21 at 11:16; Status DC Ondansetron HCl (Zofran) 4 mg PRN Q8HRS PRN IVP NAUSEA/VOMITING; Start 01/16/21 at 11:30; Stop 01/17/21 at 11:29; Status DC Insulin Human Lispro (HumaLOG) 0-5 UNITS TIDWMEALS SQ ; Start 01/16/21 at 12:00 Dextrose (Dextrose 50%-Water Syringe) 12.5 gm PRN Q15MIN PRN IV SEE COMMENTS; Start 01/16/21 at 11:30 Lorazepam (Ativan Inj) 1 mg PRN Q4HRS PRN IVP ANXIETY / AGITATION Last administered on 02/07/21 23:11; Start 01/16/21 at 12:45 Hydralazine HCl (Apresoline Inj) 20 mg PRN Q4HRS PRN IVP ELEVATED BP, SEE COMMENTS Last administered on 01/16/21at 13:30; Start 01/16/21 at 13:00 Nicardipine HCl 50 mg/Sodium Chloride 250 ml @ 25 mls/hr CONT PRN IV SEE I/O RECORD Last administered on 01/17/21at 04:25; Start 01/16/21 at 14:00; Stop 01/17/21 at 16:08; Status DC Aspirin (Ecotrin) 81 mg DAILY PO Last administered on 02/07/21 08:37; Start 01/17/21 at 13:00 Atorvastatin Calcium (Lipitor) 80 mg HS PO Last administered on 02/07/21 22:35; Start 01/17/21 at 21:00 Carvedilol (Coreg) 12.5 mg BIDWMEALS PO Last administered on 02/07/21 08:39; Start 01/17/21 at 17:00 Clonidine HCl (Catapres) 0.2 mg BID PO Last administered on 01/23/21 09:26; Start 01/17/21 at 21:00; Stop 01/23/21 at 10:30; Status DC Clopidogrel Bisulfate (Plavix) 75 mg DAILY PO Last administered on 02/07/21 08:39; Start 01/17/21 at 13:00 EZETIMIBE (Zetia) 10 mg DAILY PO Last administered on 02/07/21 08:36; Start 01/17/21 at 13:00 Hydralazine HCl (Apresoline) 50 mg TID PO Last administered on 02/07/21 22:36; Start 01/17/21 at 14:00; Stop 02/08/21 at 10:21; Status DC Isosorbide Mononitrate (Imdur) 120 mg DAILY PO Last administered on 02/07/21 08:37; Start 01/17/21 at 13:00 Minoxidil (Loniten) 2.5 mg BID PO Last administered on 02/07/21 22:35; Start 01/17/21 at 21:00 Acetaminophen (Tylenol) 650 mg PRN Q6HRS PRN PO MILD PAIN / TEMP > 100.3'F Last administered on 01/28/21at 16:08; Start 01/17/21 at 20:45 Acetaminophen/ Hydrocodone Bitart (Lortab 7.5/325) 1 tab PRN Q6HRS PRN PO MODERATE PAIN Last administered on 02/06/21at 14:27; Start 01/17/21 at 20:45 Sodium Chloride 1,000 ml @ 1,000 mls/hr Q1H PRN IV hypotension; Start 01/18/21 at 11:30; Stop 01/18/21 at 17:29; Status DC Albumin Human 200 ml @ 200 mls/hr 1X PRN PRN IV Hypotension; Start 01/18/21 at 11:30; Stop 01/18/21 at 17:29; Status DC Sodium Chloride 1,000 ml @ 400 mls/hr Q2H30M PRN IV PATENCY; Start 01/18/21 at 11:30; Stop 01/18/21 at 23:29; Status DC Info (PHARMACY MONITORING -- do not chart) 1 each PRN DAILY PRN MC SEE COMMENTS; Start 01/18/21 at 11:30; Status UNV Info (PHARMACY MONITORING -- do not chart) 1 each PRN DAILY PRN MC SEE COMMENTS; Start 01/18/21 at 11:30; Status Cancel Fentanyl Citrate (Fentanyl 2ml Vial) 25 mcg PRN Q3HRS PRN IV PAIN Last administered on 01/21/21at 16:15; Start 01/18/21 at 14:00 Ondansetron HCl (Zofran Odt) 4 mg PRN Q6HRS PRN PO NAUSEA/VOMITING Last administered on 02/03/21at 17:32; Start 01/19/21 at 09:30 Oxycodone HCl (Roxicodone) 10 mg PRN Q4HRS PRN PO SEVERE PAIN Last administered on 02/05/21at 23:57; Start 01/19/21 at 17:30 Simethicone (Gas-X) 80 mg PRN TID PRN PO GAS / BLOATING Last administered on 01/21/21at 06:04; Start 01/19/21 at 21:15 Lorazepam (Ativan) 0.5 mg PRN Q6HRS PRN PO ANXIETY / AGITATION Last administered on 02/05/21at 07:16; Start 01/19/21 at 21:15 Pantoprazole Sodium (Protonix) 40 mg DAILYAC PO Last administered on 01/22/21at 09:37; Start 01/21/21 at 10:00; Stop 01/22/21 at 11:38; Status DC Sodium Chloride 1,000 ml @ 1,000 mls/hr Q1H PRN IV hypotension; Start 01/21/21 at 12:45; Stop 01/21/21 at 18:44; Status DC Albumin Human 200 ml @ 200 mls/hr 1X PRN PRN IV Hypotension; Start 01/21/21 at 12:45; Stop 01/21/21 at 18:44; Status DC Acetaminophen (Tylenol) 500 mg 1X PRN PRN PO MILD PAIN / TEMP > 100.3'F; Start 01/21/21 at 12:45; Stop 01/22/21 at 12:44; Status DC Diphenhydramine HCl (Benadryl) 25 mg 1X PRN PRN IV ITCHING; Start 01/21/21 at 12:45; Stop 01/22/21 at 12:44; Status DC Diphenhydramine HCl (Benadryl) 25 mg 1X PRN PRN IV ITCHING; Start 01/21/21 at 12:45; Stop 01/22/21 at 12:44; Status DC Sodium Chloride 1,000 ml @ 400 mls/hr Q2H30M PRN IV PATENCY; Start 01/21/21 at 12:45; Stop 01/22/21 at 00:44; Status DC Lidocaine HCl (Xylocaine-Mpf 1% 2ml Vial) 2 ml 1X PRN PRN INJ FOR DIALYSIS; Start 01/21/21 at 12:45; Stop 01/22/21 at 12:44; Status DC Info (PHARMACY MONITORING -- do not chart) 1 each PRN DAILY PRN MC SEE COMMENTS; Start 01/21/21 at 12:45; Status UNV Info (PHARMACY MONITORING -- do not chart) 1 each PRN DAILY PRN MC SEE COMMENTS; Start 01/21/21 at 12:45; Status Cancel Bisacodyl (Dulcolax Supp) 10 mg PRN DAILY PRN OR CONSTIPATION; Start 01/21/21 at 19:30 Senna/Docusate Sodium (Senna Plus) 2 tab PRN BID PRN PO CONSTIPATION Last administered on 01/28/21at 20:32; Start 01/21/21 at 19:30; Stop 01/31/21 at 09:47; Status DC Calcium Carbonate/ Glycine (Tums) 500 mg PRN AFTMEALHC PRN PO INDIGESTION Last administered on 02/03/21at 17:32; Start 01/22/21 at 03:15 Metoclopramide HCl (Reglan Vial) 5 mg PRN Q6HRS PRN IVP NAUSEA/VOMITING; Start 01/22/21 at 11:45; Stop 01/24/21 at 09:22; Status DC Pantoprazole Sodium (PROTONIX VIAL for IV PUSH) 40 mg DAILYAC IVP ; Start 01/23/21 at 07:30; Stop 01/24/21 at 10:51; Status DC Sodium Chloride 1,000 ml @ 1,000 mls/hr Q1H PRN IV hypotension; Start 01/23/21 at 09:30; Stop 01/23/21 at 15:29; Status DC Albumin Human 200 ml @ 200 mls/hr 1X PRN PRN IV Hypotension; Start 01/23/21 at 09:30; Stop 01/23/21 at 15:29; Status DC Sodium Chloride 1,000 ml @ 400 mls/hr Q2H30M PRN IV PATENCY; Start 01/23/21 at 09:30; Stop 01/23/21 at 21:29; Status DC Lidocaine HCl (Xylocaine-Mpf 1% 2ml Vial) 2 ml 1X PRN PRN INJ FOR DIALYSIS; Start 01/23/21 at 09:30; Stop 01/24/21 at 09:29; Status DC Info (PHARMACY MONITORING -- do not chart) 1 each PRN DAILY PRN MC SEE COMMENTS; Start 01/23/21 at 09:30; Status UNV Info (PHARMACY MONITORING -- do not chart) 1 each PRN DAILY PRN MC SEE COMMENTS; Start 01/23/21 at 09:30; Stop 01/27/21 at 10:34; Status DC Clonidine HCl (Catapres Tts-3) 1 patch WEEKLY TD Last administered on 02/06/21at 18:19; Start 01/23/21 at 09:00; Stop 02/08/21 at 10:21; Status DC Quetiapine Fumarate (SEROquel) 12.5 mg [id number] PO Last administered on 01/23/21at 18:14; Start 01/23/21 at 11:00; Stop 01/24/21 at 09:17; Status DC Quetiapine Fumarate (SEROquel) 25 mg QHS PO Last administered on 01/30/21at 22:52; Start 01/24/21 at 21:00; Stop 01/31/21 at 13:26; Status DC Quetiapine Fumarate (SEROquel) 12.5 mg [id number] PO Last administered on 01/30/21at 09:34; Start 01/24/21 at 09:30; Stop 01/30/21 at 10:08; Status DC Metoclopramide HCl (Reglan Oral Solution) 5 mg TIDACHC PO Last administered on 02/07/21at 22:34; Start 01/24/21 at 09:30; Stop 02/08/21 at 10:21; Status DC Pantoprazole Sodium (Protonix) 40 mg DAILYAC PO ; Start 01/25/21 at 07:30; Stop 01/28/21 at 10:18; Status DC Sodium Chloride 1,000 ml @ 1,000 mls/hr Q1H PRN IV hypotension; Start 01/25/21 at 14:15; Stop 01/25/21 at 20:14; Status DC Albumin Human 200 ml @ 200 mls/hr 1X PRN PRN IV Hypotension; Start 01/25/21 at 14:15; Stop 01/25/21 at 20:14; Status DC Sodium Chloride 1,000 ml @ 400 mls/hr Q2H30M PRN IV PATENCY; Start 01/25/21 at 14:15; Stop 01/26/21 at 02:14; Status DC Info (PHARMACY MONITORING -- do not chart) 1 each PRN DAILY PRN MC SEE COMMENTS; Start 01/25/21 at 14:15; Status Cancel Info (PHARMACY MONITORING -- do not chart) 1 each PRN DAILY PRN MC SEE COMMENTS; Start 01/25/21 at 14:15; Status Cancel Piperacillin Sod/ Tazobactam Sod 2.25 gm/Sodium Chloride 50 ml @ 100 mls/hr Q8HRS IV Last administered on 01/28/21at 05:59; Start 01/27/21 at 14:00; Stop 01/28/21 at 10:44; Status DC Vancomycin HCl (Vanco Per Pharmacy) 1 each PRN DAILY PRN MC SEE COMMENTS Last administered on 02/03/21at 07:55; Start 01/27/21 at 10:30; Stop 02/03/21 at 09:57; Status DC Info (PHARMACY MONITORING -- do not chart) 1 each PRN DAILY PRN MC SEE COMMENTS; Start 01/27/21 at 10:30; Status Cancel Vancomycin HCl 1.5 gm/Sodium Chloride 500 ml @ 250 mls/hr 1X ONCE IV Last administered on 01/27/21at 17:47; Start 01/27/21 at 11:00; Stop 01/27/21 at 12:59; Status DC Vancomycin HCl (Vancomycin Random Level) 1 each 1X ONCE MC ; Start 01/29/21 at 05:00; Stop 01/29/21 at 05:01; Status DC Amino Acids/ Electrolytes/ Dextrose 1,000 ml @ 80 mls/hr [id number] IV Last administered on 02/08/21at 02:17; Start 01/27/21 at 18:45 Sodium Chloride 1,000 ml @ 1,000 mls/hr Q1H PRN IV hypotension; Start 01/28/21 at 07:30; Stop 01/28/21 at 13:29; Status DC Albumin Human 200 ml @ 200 mls/hr 1X PRN PRN IV Hypotension; Start 01/28/21 at 07:30; Stop 01/28/21 at 13:29; Status DC Sodium Chloride 1,000 ml @ 400 mls/hr Q2H30M PRN IV PATENCY; Start 01/28/21 at 07:30; Stop 01/28/21 at 19:29; Status DC Info (PHARMACY MONITORING -- do not chart) 1 each PRN DAILY PRN MC SEE COMMENTS; Start 01/28/21 at 07:30; Status UNV Info (PHARMACY MONITORING -- do not chart) 1 each PRN DAILY PRN MC SEE COMMENTS; Start 01/28/21 at 07:30; Status UNV Lansoprazole (Prevacid) 30 mg DAILY PO Last administered on 02/07/21at 08:39; Start 01/29/21 at 09:00 Cefepime HCl (Maxipime) 2 gm TuTh IVP ; Start 01/28/21 at 16:00; Stop 01/30/21 at 10:40; Status DC Cefepime HCl (Maxipime) 3 gm Sa IVP ; Start 02/01/21 at 16:00; Stop 01/30/21 at 10:40; Status DC Vancomycin HCl 500 mg/Sodium Chloride 100 ml @ 100 mls/hr QTUTHSA IV Last administered on 01/30/21at 18:05; Start 01/30/21 at 16:00; Stop 02/03/21 at 09:57; Status DC Lactobacillus Rhamnosus (Culturelle) 1 cap BID PO Last administered on 02/07/21at 22:35; Start 01/29/21 at 21:00 Quetiapine Fumarate (SEROquel) 25 mg [id number] PO Last administered on 01/30/21at 18:04; Start 01/30/21 at 16:00; Stop 01/31/21 at 13:26; Status DC Bisacodyl (Dulcolax Supp) 10 mg 1X ONCE OR Last administered on 01/30/21at 11:12; Start 01/30/21 at 10:15; Stop 01/30/21 at 10:16; Status DC Piperacillin Sod/ Tazobactam Sod 2.25 gm/Sodium Chloride 50 ml @ 100 mls/hr Q8HRS IV Last administered on 02/03/21at 05:35; Start 01/30/21 at 14:00; Stop 02/03/21 at 09:57; Status DC Sodium Chloride 1,000 ml @ 1,000 mls/hr Q1H PRN IV hypotension; Start 01/30/21 at 13:00; Stop 01/30/21 at 18:59; Status DC Albumin Human 200 ml @ 200 mls/hr 1X PRN PRN IV Hypotension; Start 01/30/21 at 13:00; Stop 01/30/21 at 18:59; Status DC Acetaminophen (Tylenol) 500 mg 1X PRN PRN PO MILD PAIN / TEMP > 100.3'F; Start 01/30/21 at 13:00; Stop 01/31/21 at 12:59; Status DC Diphenhydramine HCl (Benadryl) 25 mg 1X PRN PRN IV ITCHING; Start 01/30/21 at 13:00; Stop 01/31/21 at 12:59; Status DC Diphenhydramine HCl (Benadryl) 25 mg 1X PRN PRN IV ITCHING; Start 01/30/21 at 13:00; Stop 01/31/21 at 12:59; Status DC Sodium Chloride 1,000 ml @ 400 mls/hr Q2H30M PRN IV PATENCY; Start 01/30/21 at 13:00; Stop 01/31/21 at 00:59; Status DC Lidocaine HCl (Xylocaine-Mpf 1% 2ml Vial) 2 ml 1X PRN PRN INJ FOR DIALYSIS; Start 01/30/21 at 13:00; Stop 01/31/21 at 12:59; Status DC Info (PHARMACY MONITORING -- do not chart) 1 each PRN DAILY PRN MC SEE COMMENTS; Start 01/30/21 at 13:00; Status UNV Info (PHARMACY MONITORING -- do not chart) 1 each PRN DAILY PRN MC SEE COMMENTS; Start 01/30/21 at 13:00; Status UNV Senna/Docusate Sodium (Senna Plus) 2 tab DAILY08 PRN PO CONSTIPATION Last administered on 02/02/21at 09:46; Start 01/31/21 at 09:45 Sodium Chloride 500 ml @ 0 mls/hr 1X ONCE IV Last administered on 01/31/21at 13:43; Start 01/31/21 at 13:30; Stop 01/31/21 at 13:31; Status DC Quetiapine Fumarate (SEROquel) 12.5 mg [id number] PO Last administered on 02/07/21at 16:34; Start 02/01/21 at 16:00 Quetiapine Fumarate (SEROquel) 25 mg QHS PO Last administered on 02/07/21at 22:35; Start 02/01/21 at 21:00 Bisacodyl (Dulcolax Supp) 10 mg 1X ONCE OR Last administered on 02/01/21at 11:12; Start 02/01/21 at 09:45; Stop 02/01/21 at 09:50; Status DC Diphenhydramine HCl (Benadryl) 25 mg 1X PRN PRN IV ITCHING Last administered on 02/01/21at 14:49; Start 02/01/21 at 14:30; Stop 02/02/21 at 14:29; Status DC Diphenhydramine HCl (Benadryl) 25 mg 1X PRN PRN IV ITCHING; Start 02/01/21 at 14:30; Stop 02/02/21 at 14:29; Status DC Info (PHARMACY MONITORING -- do not chart) 1 each PRN DAILY PRN MC SEE COMMENTS; Start 02/01/21 at 14:30; Stop 02/05/21 at 15:18; Status DC Amoxicillin/ Clavulanate Potassium (Augmentin 500/ 125mg) 1 tab DAILY PO Last administered on 02/05/21at 07:17; Start 02/04/21 at 14:00; Stop 02/05/21 at 11:21; Status DC Sodium Chloride 1,000 ml @ 1,000 mls/hr Q1H PRN IV hypotension; Start 02/04/21 at 19:00; Stop 02/05/21 at 00:59; Status DC Albumin Human 200 ml @ 200 mls/hr 1X PRN PRN IV Hypotension; Start 02/04/21 at 19:00; Stop 02/05/21 at 00:59; Status DC Acetaminophen (Tylenol) 500 mg 1X PRN PRN PO MILD PAIN / TEMP > 100.3'F; Start 02/04/21 at 19:00; Stop 02/05/21 at 18:59; Status DC Diphenhydramine HCl (Benadryl) 25 mg 1X PRN PRN IV ITCHING; Start 02/04/21 at 19:00; Stop 02/05/21 at 18:59; Status DC Diphenhydramine HCl (Benadryl) 25 mg 1X PRN PRN IV ITCHING; Start 02/04/21 at 19:00; Stop 02/05/21 at 18:59; Status DC Sodium Chloride 1,000 ml @ 400 mls/hr Q2H30M PRN IV PATENCY; Start 02/04/21 at 19:00; Stop 02/05/21 at 06:59; Status DC Info (PHARMACY MONITORING -- do not chart) 1 each PRN DAILY PRN MC SEE COMMENTS; Start 02/04/21 at 19:00 Info (PHARMACY MONITORING -- do not chart) 1 each PRN DAILY PRN MC SEE COMMENTS; Start 02/04/21 at 19:00; Status UNV Mirtazapine (Remeron) 7.5 mg QHS PO Last administered on 02/07/21at 22:34; Start 02/05/21 at 21:00 Sodium Chloride 1,000 ml @ 1,000 mls/hr Q1H PRN IV hypotension; Start 02/06/21 at 08:30; Stop 02/06/21 at 14:29; Status DC Sodium Chloride 1,000 ml @ 400 mls/hr Q2H30M PRN IV PATENCY; Start 02/06/21 at 08:30; Stop 02/06/21 at 20:29; Status DC Info (PHARMACY MONITORING -- do not chart) 1 each PRN DAILY PRN MC SEE COMMENTS; Start 02/06/21 at 08:30; Status UNV Sodium Chloride 1,000 ml @ 1,000 mls/hr Q1H PRN IV hypotension; Start 02/08/21 at 07:30; Stop 02/08/21 at 13:29 Sodium Chloride 1,000 ml @ 400 mls/hr Q2H30M PRN IV PATENCY; Start 02/08/21 at 07:30; Stop 02/08/21 at 19:29 Info (PHARMACY MONITORING -- do not chart) 1 each PRN DAILY PRN MC SEE COMMENTS; Start 02/08/21 at 07:30; Status UNV Info (PHARMACY MONITORING -- do not chart) 1 each PRN DAILY PRN MC SEE COMMENTS; Start 02/08/21 at 07:30; Status UNV Metoclopramide HCl (Reglan Oral Solution) 5 mg BIDAC PO ; Start 02/08/21 at 11:30 Clonidine HCl (Catapres Tts-1) 1 patch WEEKLY TD ; Start 02/08/21 at 11:00 Active Scripts Active Lactulose 20 Gm/30 Ml Solution 20 Gm PO BID 5 Days Culturelle (Lactobacillus Rhamnosus Gg) 1 Each Cap.sprink 1 Cap PO BID Metoclopramide Hcl 5 Mg/1 Ml Vial 5 Mg IV PRN Q6HRS PRN Metoclopramide Hcl 5 Mg/1 Ml Vial 5 Mg IV [id number] Ondansetron Hcl 4 Mg/2 Ml Vial (Ondansetron Hcl/Pf) 4 Mg/2 Ml Vial 4 Mg IV PRN Q6HRS PRN Buspirone Hcl 5 Mg Tablet 5 Mg PO TID Quetiapine Fumarate 25 Mg Tablet 12.5 Mg PO PRN Q6HRS PRN Quetiapine Fumarate 25 Mg Tablet 25 Mg PO QHS Sertraline Hcl 50 Mg Tablet 50 Mg PO DAILY Hydrocodone-Apap 7.5-325 (Hydrocodone Bit/Acetaminophen) 1 Each Tablet 1 Tab PO PRN Q8HRS PRN Fentanyl 0.05 Mg/Ml Vial (Fentanyl Citrate/Pf) 50 Mcg/1 Ml Vial 50 Mcg IV PRN Q4 HRS PRN [Darbepoetin Ty In Polysorbat] 60 MCG/0.3 ML Disp.syrin 60 Mcg SQ WEEKLYHS Zyvox (Linezolid) 600 Mg Tablet 600 Mg PO BID Vitamin D3 (Cholecalciferol (Vitamin D3)) 1,000 Unit Tablet 1 Tab PO DAILY [Calcium Acetate] 667 MG Capsule 1,334 Mg PO TIDWMEALS Mapap (Acetaminophen) 500 Mg Tablet 1,000 Mg PO TID Carvedilol (Carvedilol) 12.5 Mg Tablet 12.5 Mg PO BIDWMEALS Minoxidil 2.5 Mg Tablet 2.5 Mg PO BID Isosorbide Mononitrate Er (Isosorbide Mononitrate) 30 Mg Tab.er.24h 120 Mg PO DAILY Montelukast Sodium Tablet (Montelukast Sodium) 10 Mg Tablet 10 Mg PO QHS Polyethylene Glycol 3350 2,500 Gm Powder 17 Gm PO DAILY Novolog Flexpen (Insulin Aspart) 100 Unit/1 Ml Insuln.pen 0 Units SQ TIDAC Take sub q tid ac: BS 151-200=2 unit, 201-250=3 unit, [id number], BS 301-350=6 unit, BS 351-400 =8 unit. BS>401 call MD Renetta Busch 10,000 Units Capsule (Lipase/Protease/Amylase) 1 Each Capsule. 2 Cap PO TIDWMEALS TAke 2 cap tid with meals Nephro-Donny Tablet (Folic Acid/Vitamin B Comp W-C) 0.8 Mg Tablet 1 Tab PO DAILY Benadryl (Diphenhydramine Hcl) 25 Mg Capsule 25 Mg PO PRN Q6HRS PRN Reported Lactulose 10 Gm Packet 10 Gm PO Q6HRS Lidocaine 15 Gm Cream..g. 1 Karma TP TID PRN 30 Days Isosorbide Mononitrate Er (Isosorbide Mononitrate) 60 Mg Tab.er.24h 1 Tab PO DAILY Vitamin A 2,400 Mcg Capsule 1,250 Mcg PO WEEKLY Hydrocodone-Apap 10-325 (Hydrocodone Bit/Acetaminophen) 1 Tab Tablet 1 Tab PO PRN Q6HRS PRN Ultram (Tramadol Hcl) 50 Mg Tablet 1 Tab PO BID MDD 2 Tablet(s) 30 Days Hydralazine Hcl 50 Mg Tablet 1 Tab PO TID Acetaminophen 325 Mg Tablet 2 Tab PO Q6HRS PRN 30 Days Glucose Gel (Dextrose) 38 Gm Gel..gram. 15 Gm PO PRN Sertraline Hcl 100 Mg Tablet 100 Mg PO DAILY Glucagon Emergency Kit (Glucagon,Human Recombinant) 1 Mg Kit 1 Mg IM PRN Senna Plus Tablet (Sennosides/Docusate Sodium) 1 Each Tablet 2 Tab PO QHS 14 Days Zetia (Ezetimibe) 10 Mg Tablet 1 Tab PO DAILY 30 Days Renvela (Sevelamer Carbonate) 800 Mg Tablet 800 Mg PO TIDWMEALS Escitalopram Oxalate 10 Mg Tablet 1 Tab PO DAILY Lyrica (Pregabalin) 50 Mg Capsule 25 Mg PO QHS [creon] 1 Cap PO TIDAC Oxycodone HCl 5 Mg Tablet 5 Mg PO Q8HRS PRN [zenpep] 10 Mg PO TIDAC Clonidine Hcl 0.2 Mg Tablet 0.2 Mg PO BID Zofran (Ondansetron Hcl) 4 Mg Tablet 1 Tab PO Q4HRS PRN Sensipar (Cinacalcet Hcl) 30 Mg Tablet 1 Tab PO DAILY 30 Days Mirtazapine 15 Mg Tablet 1 Tab PO QHS Atorvastatin Calcium 40 Mg Tablet 80 Mg PO HS Minoxidil 2.5 Mg Tablet 2.5 Mg PO DAILY Amlodipine Besylate 10 Mg Tablet 10 Mg PO DAILY Lidocaine PATCH (Lidocaine) 1 Each Adh..patch 1 Each TP DAILY REMOVE AFTER 12 HOURS Proair Hfa Inhaler (Albuterol Sulfate) 8.5 Gm Hfa.aer.ad 2 Puff INH PRN Q6HRS PRN Nitrostat (Nitroglycerin) 0.4 Mg Tab.subl 0.4 Mg SL PRN Q5MIN PRN Plavix (Clopidogrel Bisulfate) 75 Mg Tablet 1 Tab PO DAILY Zoloft (Sertraline Hcl) 100 Mg Tablet 1 Tab PO DAILY Pantoprazole Sodium (Pantoprazole Sodium) 40 Mg Tablet. 1 Tab PO DAILY Losartan Potassium 100 Mg Tablet 100 Mg PO DAILY Aspir 81 (Aspirin) 81 Mg Tablet. 81 Mg PO DAILY Vitals/I & O Vital Sign - Last 24 Hours 02/07/21 02/07/21 02/07/21 02/07/21 15:00 16:35 17:00 19:00 Temp 97.8 97.5 97.8 97.5 Pulse 67 67 67 71 Resp 18 18 B/P (MAP) 144/55 (84) 144/55 144/55 111/58 (75) Pulse Ox 91 100 O2 Delivery Room Air Room Air 02/07/21 02/07/21 02/07/21 02/07/21 20:08 22:35 22:36 23:18 Temp 97.2 97.2 Pulse 71 71 77 Resp 16 B/P (MAP) 111/58 111/58 115/41 (65) Pulse Ox 98 O2 Delivery Room Air Room Air 02/08/21 02/08/21 03:00 07:00 Temp 98.0 98.0 Pulse 70 61 Resp 16 20 B/P (MAP) 100/52 (68) 95/35 (55) Pulse Ox 100 99 O2 Delivery Room Air Room Air Intake and Output 02/07/21 02/07/21 02/08/21 15:00 23:00 07:00 Intake Total 0 ml 0 ml 0 ml Output Total 0 ml Balance 0 ml 0 ml 0 ml Justifications for Admission Other Justification PATRICIA BANKS MD Feb 08, 2021 12:49
[2021-02-08 15:00] VITALS: BP 129/48
[2021-02-08] MEDS: ASPIRIN ENTERIC COATED 81 MG TABLET.DR. PO SCH (16:06)
[2021-02-08] MEDS: LACTOBACILLUS RHAMNOSUS GG 1 CAPSULE. PO SCH ×2 (16:07→21:32)
[2021-02-08] MEDS: LANSOPRAZOLE 30 MG TAB.RAP.DR PO SCH (16:07)
[2021-02-08] MEDS: CLOPIDOGREL BISULFATE 75 MG TABLET PO SCH (16:07)
[2021-02-08] MEDS: ISOSORBIDE MONONITRATE ER 30 MG TAB.ER.24H PO SCH (16:08)
[2021-02-08] MEDS: HYDROcodone/APAP 7.5/325MG 1 TAB TABLET PO PRN (17:14)
[2021-02-08 19:44] VITALS: BP 127/35
[2021-02-08] MEDS: ATORVASTATIN CALCIUM 40 MG TABLET. PO SCH (21:32)
[2021-02-08] MEDS: MIRTAZAPINE 7.5 MG TABLET. PO SCH (21:32)
[2021-02-08] MEDS: oxyCODONE IR 5 MG TABLET PO PRN (22:08)
[2021-02-08 23:13] VITALS: BP 116/30
[2021-02-08] MEDS: LORazepam 0.5 MG TABLET PO PRN (23:20)
[2021-02-09 03:11] VITALS: BP 117/31
[2021-02-09] MEDS: HYDROcodone/APAP 7.5/325MG 1 TAB TABLET PO PRN ×2 (03:27→21:03)
[2021-02-09 07:00] VITALS: BP 124/40
[2021-02-09] MEDS: INSULIN LISPRO 300 UNITS/3 ML VIAL. SQ SCH ×3 (08:00→17:00)
[2021-02-09] MEDS: CLOPIDOGREL BISULFATE 75 MG TABLET PO SCH (09:53)
[2021-02-09] MEDS: METOCLOPRAMIDE ORAL SOLN 10 MG/10 ML SOLUTION. PO SCH ×2 (09:53→16:53)
[2021-02-09] MEDS: LACTOBACILLUS RHAMNOSUS GG 1 CAPSULE. PO SCH ×2 (09:53→21:00)
[2021-02-09] MEDS: EZETIMIBE 10 MG TABLET. PO SCH (09:53)
[2021-02-09] MEDS: LANSOPRAZOLE 30 MG TAB.RAP.DR PO SCH (09:53)
[2021-02-09] MEDS: MINOXIDIL 2.5 MG TABLET PO SCH ×2 (09:54→21:00)
[2021-02-09] MEDS: ASPIRIN ENTERIC COATED 81 MG TABLET.DR. PO SCH (09:55)
[2021-02-09] MEDS: CARVEDILOL 12.5 MG TABLET. PO SCH ×2 (09:55→16:55)
[2021-02-09] MEDS: QUEtiapine 25 MG TABLET. PO SCH ×3 (09:55→21:00)
[2021-02-09] MEDS: ISOSORBIDE MONONITRATE ER 30 MG TAB.ER.24H PO SCH (09:56)
[2021-02-09 11:00] VITALS: BP 125/40
--- NOTE | 2021-02-09 11:04 | PDOC ---
PROGRESS NOTES Date of Service: DATE: 02/09/21 TIME: 11:01 Subjective Subjective sleepy ,no new changes Objective Objective Vital Signs Date Time Temp Pulse Resp B/P (MAP) Pulse Ox O2 Delivery O2 Flow Rate FiO2 02/09/21 09:56 72 124/40 02/09/21 08:00 Room Air 02/09/21 07:00 98.0 20 95 98.0 Intake and Output 02/09/21 06:59 Intake Total 120 ml Balance 120 ml Intake Oral 120 ml Physical Exam Abdomen: Soft, No tenderness Heart: Regular rate, Normal S1, Normal S2, No murmurs, Gallops Extremities: No edema General: No acute distress HEENT: Atraumatic, Mucous membr. moist/pink Lungs: Clear to auscultation, Normal air movement MUSCULOSKELETAL: No swelling, Osteoarthritic changes both hands Neck: No JVD Neuro: Other (sleepy this morning) Skin: No breakdown, No significant lesion Diagnosis Problem List Problems Medical Problems: (1) Altered mental status Status: Acute (2) ESRD (end stage renal disease) on dialysis Status: Acute (3) Hypertensive urgency Status: Acute RENAL FAILURE: ESRD Assessment Assessment 1. Acute metabolic encephalopathy. Continue to give her lorazepam as needed. Monitor closely in the Intensive Care Unit. Consult Dr. Martinez for neurology evaluation and management. Likely due to hypertensive crisis.Mental status is improving. 2. Acute hypertensive crisis. Patient was initially treated with Cardene IV drip. Consult Dr. Leahy for cardiology evaluation and management. 3. Elevated troponin. This may be due to demand ischemia and also end-stage renal disease may be contributing. 4. End-stage renal disease, on hemodialysis. 5. Coronary artery disease. 6. Diastolic congestive heart failure. 7. Physical deconditioning. 8. Asthma. 9. Gastroesophageal reflux disease. 10. Hyperlipidemia. 11. Severe pulmonary hypertension. 12. 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 13. History of depression. 14. 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 Monitor blood sugar. 15. History of secondary hyperparathyroidism. 16. Marijuana abuse Plan: on TPN ,pt not eating No new changes . no new labs waiting for placement dialysis 3 times a week COVID-19 infection. SARS-CoV-2 PCR test is positive. This may be also contributing to patient's poor appetite, body aches and confusion.I will also consult Dr. Ray Nino for Infectious Disease evaluation and management because of her fever of 103 degrees Fahrenheit. Her chest x-ray, urinalysis as well as SARS-CoV-2 antigen test is negative. Consult Dr. Nino for infectious disease evaluation and management. Patient is running low-grade fever. WBC count is 8.1. On IV Vancomycin. Cefepime has been changed to IV Zosyn. Bl c/s 06/09 Gram + cocci- ? contaminant. CT abd/pelvis 01/28/21 1. Small right pleural effusion and right greater than left posterior dependent and basilar atelectasis and possible superimposed pleural parenchymal scarring. There is no consolidated pneumonia. 2. Soft tissue stranding and small amount of soft tissue gas within the right axilla and base of the right neck. Correlate for recent instrumentation or catheterization. 3. Moderate colonic stool. 4. Mild bladder wall thickening. This may be due to underdistention or cystitis. Correlate with urinalysis. 5. Trace nonspecific pelvic free fluid and mild body wall edema. 6. Renal atrophy. US rt UE- negative for DVT. Acute metabolic encephalopathy-most likely due to COVID-19 infection and may be multifactorial.Slightly better. Increase Seroquel to 25 mg p.o. twice daily and 25 mg at bedtime. I will add mirtazapine at bedtime. Severe malnutrition-patient is not eating but also does not allow any IV fluids or IV access. I have encouraged her to drink Nepro. Rt arm swollen. Change IV to PICC line. Started on PPN yesterday. D/w staff. place midline and restarted PPN. Patient has constipation and has stool on CT of the abdomen. Has abdominal pain also. Change senna S to 2 tablets daily. Prognosis of this patient is extremely poor due to her multiple medical problems. Hypotension - .BP low today. Apply hold parameters for BP meds as needed. Continue low-dose Seroquel. Constipation-not eating. Discussed with infectious disease specialist. Change IV antibiotics to p.o. Augmentin. Patient is also refusing oral medications. D/w daughter Kerri -about patient's condition,treatment,options,prognosis on 02/04/21. Family wants to continue present care and hospice was also discussed with her. Because of her persistent agitation, encephalopathy, declining to eat and needing hemodialysis with agitation worse during dialysis at times and pulling on the catheters it would be appropriate to send her to a facility that can do in-house dialysis such as [facility] or [facility]. Consult LTACH. D/w Dr. Youngblood,nursing supervisor kennel and weigh and charge worker yesterday.. Patient does not qualify for LTAC. Looking for an in-house dialysis facility. D/w - yesterday. Due to her agitation and need for repeat HD on the same day frequently he recommends in house dialysis facility. Blood pressure is low. Change Catapres TTS to one topically once a week. Patient is getting dialysis but per staff fluid will not be taken off. Plan Plan of Care Problems Medical Problems: (1) Altered mental status Status: Acute (2) ESRD (end stage renal disease) on dialysis Status: Acute (3) Hypertensive urgency Status: Acute Comment Review of Relevant I have reviewed the following items richard (where applicable) has been applied. Labs Laboratory Tests Test 02/08/21 12:56 02/08/21 17:23 02/08/21 20:58 02/09/21 07:45 Glucose (Fingerstick) 81 mg/dL (70-99) 114 mg/dL (70-99) 85 mg/dL (70-99) 104 mg/dL (70-99) Microbiology 01/27/21 Blood Culture - Final, Complete Medications Current Medications Metoclopramide HCl (Reglan Oral Solution) 5 mg BIDAC PO Last administered on 02/09/21at 09:53; Start 02/08/21 at 11:30 Vitals/I & O Vital Sign - Last 24 Hours 02/08/21 02/08/21 02/08/21 02/08/21 12:00 15:00 16:08 17:00 Temp 96.5 96.5 96.5 96.5 Pulse 69 74 74 70 Resp 22 20 B/P (MAP) 146/121 (129) 129/48 (75) 129/48 127/35 Pulse Ox 100 99 O2 Delivery Room Air Room Air 02/08/21 02/08/21 02/08/21 02/08/21 17:14 18:10 19:44 20:25 Temp 97.8 97.8 Pulse 70 Resp 19 19 20 B/P (MAP) 127/35 (65) Pulse Ox 94 94 99 O2 Delivery Room Air Room Air Room Air Room Air 02/08/21 02/08/21 02/08/21 02/08/21 21:33 22:08 22:47 23:13 Temp 98.7 98.7 Pulse 70 76 Resp 18 18 20 B/P (MAP) 127/35 116/30 (58) Pulse Ox 99 99 97 O2 Delivery Room Air Room Air Room Air 02/09/21 02/09/21 02/09/21 02/09/21 03:11 03:27 04:03 07:00 Temp 98.9 98.0 98.9 98.0 Pulse 75 72 Resp 16 18 18 20 B/P (MAP) 117/31 (59) 124/40 (68) Pulse Ox 93 93 93 95 O2 Delivery Room Air Room Air Room Air Room Air 02/09/21 02/09/21 02/09/21 02/09/21 08:00 09:54 09:55 09:56 Pulse 72 72 72 B/P (MAP) 124/40 124/40 124/40 O2 Delivery Room Air Intake and Output 02/08/21 02/08/21 02/09/21 14:59 22:59 06:59 Intake Total 0 ml 120 ml Balance 0 ml 120 ml Justifications for Admission Other Justification KARL LUJAN MD Feb 09, 2021 11:04
[2021-02-09] MEDS: AA 4.25 %/CALCIUM/LYTES/D5W 1,000 ML IV SCH (12:56)
[2021-02-09] MEDS: oxyCODONE IR 5 MG TABLET PO PRN (14:51)
[2021-02-09 15:00] VITALS: BP 107/34
[2021-02-09 19:32] VITALS: BP 124/42
[2021-02-09] MEDS: MIRTAZAPINE 7.5 MG TABLET. PO SCH (21:00)
[2021-02-09] MEDS: ATORVASTATIN CALCIUM 40 MG TABLET. PO SCH (21:00)
[2021-02-09 23:18] VITALS: BP 121/37
[2021-02-10] MEDS: oxyCODONE IR 5 MG TABLET PO PRN ×2 (00:33→12:55)
[2021-02-10] MEDS: AA 4.25 %/CALCIUM/LYTES/D5W 1,000 ML IV SCH ×2 (01:21→14:33)
[2021-02-10 03:08] VITALS: BP 129/42
[2021-02-10] MEDS: HYDROcodone/APAP 7.5/325MG 1 TAB TABLET PO PRN ×2 (05:58→21:19)
[2021-02-10 07:00] VITALS: BP 130/44
[2021-02-10] MEDS: INSULIN LISPRO 300 UNITS/3 ML VIAL. SQ SCH ×3 (08:00→16:39)
[2021-02-10] MEDS: ISOSORBIDE MONONITRATE ER 30 MG TAB.ER.24H PO SCH (08:28)
[2021-02-10] MEDS: METOCLOPRAMIDE ORAL SOLN 10 MG/10 ML SOLUTION. PO SCH ×2 (08:28→16:39)
[2021-02-10] MEDS: CLOPIDOGREL BISULFATE 75 MG TABLET PO SCH (08:29)
[2021-02-10] MEDS: ASPIRIN ENTERIC COATED 81 MG TABLET.DR. PO SCH (08:29)
[2021-02-10] MEDS: LANSOPRAZOLE 30 MG TAB.RAP.DR PO SCH (08:29)
[2021-02-10] MEDS: EZETIMIBE 10 MG TABLET. PO SCH (08:29)
[2021-02-10] MEDS: LACTOBACILLUS RHAMNOSUS GG 1 CAPSULE. PO SCH ×2 (08:29→21:18)
[2021-02-10] MEDS: CARVEDILOL 12.5 MG TABLET. PO SCH ×2 (08:30→16:39)
[2021-02-10] MEDS: QUEtiapine 25 MG TABLET. PO SCH ×3 (08:30→21:18)
[2021-02-10] MEDS: MINOXIDIL 2.5 MG TABLET PO SCH ×2 (08:30→21:19)
--- NOTE | 2021-02-10 10:14 | PDOC ---
PROGRESS NOTES Date of Service: DATE: 02/10/21 TIME: 10:11 Subjective Subjective slightly more awake today Objective Objective Vital Signs Date Time Temp Pulse Resp B/P (MAP) Pulse Ox O2 Delivery O2 Flow Rate FiO2 02/10/21 08:30 68 130/44 02/10/21 08:00 Room Air 02/10/21 07:00 97.6 16 97 97.6 02/09/21 16:53 2.0 Intake and Output 02/10/21 07:00 Intake Total 150 ml Output Total 0 ml Balance 150 ml Intake Oral 150 ml Output Urine Total 0 ml Physical Exam Abdomen: Soft, No tenderness Heart: Regular rate, Normal S1, Normal S2, No murmurs, Gallops Extremities: No edema General: No acute distress HEENT: Atraumatic, Mucous membr. moist/pink Lungs: Clear to auscultation, Normal air movement MUSCULOSKELETAL: No swelling, Osteoarthritic changes both hands Neck: No JVD Neuro: Other (awake this morning) Skin: No breakdown, No significant lesion Diagnosis Problem List Problems Medical Problems: (1) Altered mental status Status: Acute (2) ESRD (end stage renal disease) on dialysis Status: Acute (3) Hypertensive urgency Status: Acute RENAL FAILURE: ESRD Assessment Assessment 1. Acute metabolic encephalopathy. Continue to give her lorazepam as needed. Monitor closely in the Intensive Care Unit. Consult Dr. Martinez for neurology evaluation and management. Likely due to hypertensive crisis.Mental status is improving. 2. Acute hypertensive crisis. Patient was initially treated with Cardene IV drip. Consult Dr. Leahy for cardiology evaluation and management. 3. Elevated troponin. This may be due to demand ischemia and also end-stage renal disease may be contributing. 4. End-stage renal disease, on hemodialysis. 5. Coronary artery disease. 6. Diastolic congestive heart failure. 7. Physical deconditioning. 8. Asthma. 9. Gastroesophageal reflux disease. 10. Hyperlipidemia. 11. Severe pulmonary hypertension. 12. 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 13. History of depression. 14. 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 Monitor blood sugar. 15. History of secondary hyperparathyroidism. 16. Marijuana abuse Plan:social service working on placement. Pt on TPN ,pt not eating No new changes . no new labs waiting for placement dialysis 3 times a week Plan Plan of Care Problems Medical Problems: (1) Altered mental status Status: Acute (2) ESRD (end stage renal disease) on dialysis Status: Acute (3) Hypertensive urgency Status: Acute Comment Review of Relevant I have reviewed the following items richard (where applicable) has been applied. Labs Laboratory Tests Test 02/09/21 11:51 02/09/21 17:24 02/09/21 20:13 02/10/21 07:13 Glucose (Fingerstick) 112 mg/dL (70-99) 127 mg/dL (70-99) 123 mg/dL (70-99) 113 mg/dL (70-99) Microbiology 01/27/21 Blood Culture - Final, Complete Vitals/I & O Vital Sign - Last 24 Hours 02/09/21 02/09/21 02/09/21 02/09/21 11:00 14:51 15:00 16:53 Temp 98.9 99.2 98.9 99.2 Pulse 73 70 Resp 18 20 B/P (MAP) 125/40 (68) 107/34 (58) Pulse Ox 95 95 96 96 O2 Delivery Room Air Room Air Room Air Room Air O2 Flow Rate 2.0 2.0 02/09/21 02/09/21 02/09/21 02/09/21 19:32 20:21 21:00 21:03 Temp 99.2 99.2 Pulse 69 69 Resp 18 18 B/P (MAP) 124/42 (69) 124/42 Pulse Ox 98 98 O2 Delivery Room Air Room Air Room Air 02/09/21 02/09/21 02/10/21 02/10/21 22:01 23:18 00:33 01:04 Temp 98.8 98.8 Pulse 71 Resp 18 18 18 18 B/P (MAP) 121/37 (65) Pulse Ox 98 97 97 97 O2 Delivery Room Air Room Air Room Air Room Air 02/10/21 02/10/21 02/10/21 02/10/21 03:08 05:58 06:59 07:00 Temp 98.5 97.6 98.5 97.6 Pulse 69 68 Resp 20 18 18 16 B/P (MAP) 129/42 (71) 130/44 (72) Pulse Ox 98 98 98 97 O2 Delivery Room Air Room Air Room Air Room Air 02/10/21 02/10/21 02/10/21 02/10/21 08:00 08:28 08:30 08:30 Pulse 68 68 68 B/P (MAP) 130/44 130/44 130/44 O2 Delivery Room Air Intake and Output 02/09/21 02/09/21 02/10/21 15:00 23:00 07:00 Intake Total 0 ml 120 ml 30 ml Output Total 0 ml Balance 0 ml 120 ml 30 ml Justifications for Admission Other Justification KARL LUJAN MD Feb 10, 2021 10:14
[2021-02-10 11:24] VITALS: BP 151/45
[2021-02-10 15:00] VITALS: BP 139/45
[2021-02-10 19:00] VITALS: BP 134/53
[2021-02-10] MEDS: ATORVASTATIN CALCIUM 40 MG TABLET. PO SCH (21:18)
[2021-02-10] MEDS: MIRTAZAPINE 7.5 MG TABLET. PO SCH (21:19)
[2021-02-10 23:00] VITALS: BP 131/36
[2021-02-11] VITALS (28 sets, daily range): BP systolic 71–196; BP diastolic 33–93
[2021-02-11] MEDS: LORazepam 0.5 MG TABLET PO PRN (02:15)
[2021-02-11] MEDS: oxyCODONE IR 5 MG TABLET PO PRN (02:15)
[2021-02-11] MEDS: AA 4.25 %/CALCIUM/LYTES/D5W 1,000 ML IV SCH ×2 (03:07→18:55)
[2021-02-11] MEDS: HYDROcodone/APAP 7.5/325MG 1 TAB TABLET PO PRN (06:11)
[2021-02-11 07:20] LABS: CALCIUM 8.7 mg/dL (8.5-10.1); CREATININE 6.8 mg/dL (0.6-1.0); GFR 7.5
[2021-02-11 07:21] LABS: BASO % 0 % (0-3); EOS % 0 % (0-3); HEMOGLOBIN 7.1 g/dL (12.0-15.5); LYMPH # 0.5 x10^3/uL (1.0-4.8); LYMPH % 6 % (24-48); MEAN CORPUSCULAR HEMOGLOBIN 31 pg (25-35); MEAN CORPUSCULAR HGB CONC 34 g/dL (31-37); MEAN CORPUSCULAR VOLUME 91 fL (79-100); MONO # 0.6 x10^3/uL (0.0-1.1); MONO % 6 % (0-9); NEUT # 8.5 x10^3/uL (1.8-7.7); NEUT % 88 % (31-73); PLATELET COUNT 198 x10^3/uL (140-400); RED BLOOD COUNT 2.29 x10^6/uL (3.50-5.40); RED CELL DISTRIBUTION WIDTH 15.3 % (11.5-14.5); WHITE BLOOD COUNT 9.7 x10^3/uL (4.0-11.0)
[2021-02-11 07:25] LABS: POTASSIUM 7.4 mmol/L (3.5-5.1)
[2021-02-11] MEDS: METOCLOPRAMIDE ORAL SOLN 10 MG/10 ML SOLUTION. PO SCH ×2 (07:30→16:30)
[2021-02-11 07:32] LABS: HEMATOCRIT 20.9 % (36.0-47.0)
[2021-02-11] MEDS: CARVEDILOL 12.5 MG TABLET. PO SCH ×2 (08:00→17:00)
[2021-02-11] MEDS: INSULIN LISPRO 300 UNITS/3 ML VIAL. SQ SCH ×3 (08:00→17:00)
--- NOTE | 2021-02-11 08:00 | NUR ---
Patients' lab values as follows per wharf laborer; potassium 7.4, creat. 6.8, hgb 7.1, call placed to dr. oseguera to report findings.
--- NOTE | 2021-02-11 08:00 | NUR ---
DR. REYNA INFORMED OF LAB VALUES AND SUPERVISOR CLOTH WINDING INFORMED THAT PATIENT WOULD NEED EARLY DIALYSIS RUN.
[2021-02-11] MEDS: LACTOBACILLUS RHAMNOSUS GG 1 CAPSULE. PO SCH ×2 (09:00→19:22)
[2021-02-11] MEDS: QUEtiapine 25 MG TABLET. PO SCH ×3 (09:00→21:53)
[2021-02-11] MEDS: ASPIRIN ENTERIC COATED 81 MG TABLET.DR. PO SCH (09:00)
[2021-02-11] MEDS: LANSOPRAZOLE 30 MG TAB.RAP.DR PO SCH (09:00)
[2021-02-11] MEDS: MINOXIDIL 2.5 MG TABLET PO SCH ×2 (09:00→20:03)
[2021-02-11] MEDS: ISOSORBIDE MONONITRATE ER 30 MG TAB.ER.24H PO SCH (09:00)
[2021-02-11] MEDS: CLOPIDOGREL BISULFATE 75 MG TABLET PO SCH (09:00)
[2021-02-11] MEDS: EZETIMIBE 10 MG TABLET. PO SCH (09:00)
--- NOTE | 2021-02-11 09:40 | NUR ---
PATIENT LEAVES THE ROOM PER BED FOR DIALYSIS, WILL ADMINISTER AM MEDS AFTER DIALYSIS.
[2021-02-11] MEDS ORDERED: DIALYSIS PATIENT. MC PRN ×2 (09:45)
--- NOTE | 2021-02-11 10:04 | PDOC ---
IM PROGRESS NOTES- Subjective Subjective Patient is not eating. She is a poor historian. Gets agitated during dialysis. Objective Vitals/I&O Vital Signs Date Time Temp Pulse Resp B/P (MAP) Pulse Ox O2 Delivery O2 Flow Rate FiO2 02/11/21 07:00 100.1 68 18 137/66 (89) 96 Room Air 100.1 I & O 02/10/21 02/10/21 02/11/21 15:00 23:00 07:00 Intake Total 25 ml 0 ml 100 ml Balance 25 ml 0 ml 100 ml Physical Exam Physical Exam General Appearance -sleeping in mild respiratory distress, weak and malnourished Chest -bilateral coarse breath sounds Heart - S1 and S2 normal Abdomen - soft, non tender Neurological -sleeping Musculoskeletal - generalized weakness Extremities - no edema Labs Laboratory Tests Test 02/10/21 10:58 02/10/21 16:18 02/10/21 20:18 02/11/21 06:30 Glucose (Fingerstick) 126 mg/dL (70-99) H 117 mg/dL (70-99) H 121 mg/dL (70-99) H White Blood Count 9.7 x10^3/uL (4.0-11.0) Red Blood Count 2.29 x10^6/uL (3.50-5.40) L Hemoglobin 7.1 g/dL (12.0-15.5) L Hematocrit 20.9 % (36.0-47.0) *L Mean Corpuscular Volume 91 fL (79-100) Mean Corpuscular Hemoglobin 31 pg (25-35) Mean Corpuscular Hemoglobin Concent 34 g/dL (31-37) Red Cell Distribution Width 15.3 % (11.5-14.5) H Platelet Count 198 x10^3/uL (140-400) Neutrophils (%) (Auto) 88 % (31-73) H Lymphocytes (%) (Auto) 6 % (24-48) L Monocytes (%) (Auto) 6 % (0-9) Eosinophils (%) (Auto) 0 % (0-3) Basophils (%) (Auto) 0 % (0-3) Neutrophils # (Auto) 8.5 x10^3/uL (1.8-7.7) H Lymphocytes # (Auto) 0.5 x10^3/uL (1.0-4.8) L Monocytes # (Auto) 0.6 x10^3/uL (0.0-1.1) Eosinophils # (Auto) 0.0 x10^3/uL (0.0-0.7) Basophils # (Auto) 0.0 x10^3/uL (0.0-0.2) Sodium Level 130 mmol/L (136-145) L Potassium Level 7.4 mmol/L (3.5-5.1) *H Chloride Level 93 mmol/L (98-107) L Carbon Dioxide Level 27 mmol/L (21-32) Anion Gap 10 (6-14) Blood Urea Nitrogen 82 mg/dL (7-20) H Creatinine 6.8 mg/dL (0.6-1.0) H Estimated GFR (Cockcroft-Gault) 7.5 Glucose Level 105 mg/dL (70-99) H Calcium Level 8.7 mg/dL (8.5-10.1) Test 02/11/21 07:27 Glucose (Fingerstick) 106 mg/dL (70-99) H Laboratory Tests 02/11/21 06:30 Laboratory Tests 02/11/21 06:30 Assessment Assessment 1. Acute metabolic encephalopathy. Continue to give her lorazepam as needed. Monitor closely in the Intensive Care Unit. Consult Dr. Martinez for neurology evaluation and management. Likely due to hypertensive crisis.Mental status is improving. 2. Acute hypertensive crisis. Patient was initially treated with Cardene IV drip. Consult Dr. Leahy for cardiology evaluation and management. 3. Elevated troponin. This may be due to demand ischemia and also end-stage renal disease may be contributing. 4. End-stage renal disease, on hemodialysis. 5. Coronary artery disease. 6. Diastolic congestive heart failure. 7. Physical deconditioning. 8. Asthma. 9. Gastroesophageal reflux disease. 10. Hyperlipidemia. 11. Severe pulmonary hypertension. 12. 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 13. History of depression. 14. 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 Monitor blood sugar. 15. History of secondary hyperparathyroidism. 16. Marijuana abuse Plan: COVID-19 infection. SARS-CoV-2 PCR test is positive. This may be also contributing to patient's poor appetite, body aches and confusion.I will also consult Dr. Ray Nino for Infectious Disease evaluation and management because of her fever of 103 degrees Fahrenheit. Her chest x-ray, urinalysis as well as SARS-CoV-2 antigen test is negative. Consult Dr. Nino for infectious disease evaluation and management. Patient is running low-grade fever. WBC count is 8.1. On IV Vancomycin. Cefepime has been changed to IV Zosyn. Bl c/s 06/09 Gram + cocci- ? contaminant. CT abd/pelvis 01/28/21 1. Small right pleural effusion and right greater than left posterior dependent and basilar atelectasis and possible superimposed pleural parenchymal scarring. There is no consolidated pneumonia. 2. Soft tissue stranding and small amount of soft tissue gas within the right axilla and base of the right neck. Correlate for recent instrumentation or catheterization. 3. Moderate colonic stool. 4. Mild bladder wall thickening. This may be due to underdistention or cystitis. Correlate with urinalysis. 5. Trace nonspecific pelvic free fluid and mild body wall edema. 6. Renal atrophy. US rt UE- negative for DVT. Acute metabolic encephalopathy-most likely due to COVID-19 infection and may be multifactorial.Slightly better. Increase Seroquel to 25 mg p.o. twice daily and 25 mg at bedtime. I will add mirtazapine at bedtime. Severe malnutrition-patient is not eating but also does not allow any IV fluids or IV access. I have encouraged her to drink Nepro. Rt arm swollen. Change IV to PICC line. She is on PPN. Patient has constipation and has stool on CT of the abdomen. Has abdominal pain also. Change senna S to 2 tablets daily. Prognosis of this patient is extremely poor due to her multiple medical problems. Hypotension - .BP low today. Apply hold parameters for BP meds as needed. Continue low-dose Seroquel. Constipation-not eating. Changed IV antibiotics to p.o. Augmentin. Patient is also refusing oral medications. D/w daughter Kerri -about patient's condition,treatment,options,prognosis on 02/11/21. Family wants to continue present care and hospice was also discussed with her. Because of her persistent agitation, encephalopathy, declining to eat and needing hemodialysis with agitation worse during dialysis at times and pulling on the catheters it would be appropriate to send her to a facility that can do in-house dialysis such as [facility] or [facility]. Consult LTACH. Patient does not qualify for LTAC. Looking for an in-house dialysis facility. D/w - yesterday. Due to her agitation and need for repeat HD on the same day frequently he recommends in house dialysis facility. Hyperkalemia with potassium of 7.4. Patient will need urgent dialysis. Fever etiology not clear. WBC count is normal. Reconsult infectious disease specialist. Check labs, chest x-ray. Discussed with Dr. Hernandez. RENAL FAILURE: ESRD Plan Plan For more details regarding further plans, please refer to the orders. Justifications for Admission Other Justification GAURAV DANG MD Feb 11, 2021 10:04
--- NOTE | 2021-02-11 10:19 | PDOC ---
Renal-Progress Notes Subjective Notes Notes MORE CALM BUT STILL CONFUSED History of Present Illness Hx of present illness STILL VERY ILL Vitals Vitals Vital Signs Date Time Temp Pulse Resp B/P (MAP) Pulse Ox O2 Delivery O2 Flow Rate FiO2 02/11/21 07:00 100.1 68 18 137/66 (89) 96 Room Air 100.1 Weight Weight [ ] I.O. Intake and Output Intake and Output 02/11/21 07:00 Intake Total 125 ml Balance 125 ml Intake Oral 125 ml Labs Labs Laboratory Tests Test 02/10/21 10:58 02/10/21 16:18 02/10/21 20:18 02/11/21 06:30 Glucose (Fingerstick) 126 mg/dL (70-99) 117 mg/dL (70-99) 121 mg/dL (70-99) White Blood Count 9.7 x10^3/uL (4.0-11.0) Red Blood Count 2.29 x10^6/uL (3.50-5.40) Hemoglobin 7.1 g/dL (12.0-15.5) Hematocrit 20.9 % (36.0-47.0) Mean Corpuscular Volume 91 fL (79-100) Mean Corpuscular Hemoglobin 31 pg (25-35) Mean Corpuscular Hemoglobin Concent 34 g/dL (31-37) Red Cell Distribution Width 15.3 % (11.5-14.5) Platelet Count 198 x10^3/uL (140-400) Neutrophils (%) (Auto) 88 % (31-73) Lymphocytes (%) (Auto) 6 % (24-48) Monocytes (%) (Auto) 6 % (0-9) Eosinophils (%) (Auto) 0 % (0-3) Basophils (%) (Auto) 0 % (0-3) Neutrophils # (Auto) 8.5 x10^3/uL (1.8-7.7) Lymphocytes # (Auto) 0.5 x10^3/uL (1.0-4.8) Monocytes # (Auto) 0.6 x10^3/uL (0.0-1.1) Eosinophils # (Auto) 0.0 x10^3/uL (0.0-0.7) Basophils # (Auto) 0.0 x10^3/uL (0.0-0.2) Sodium Level 130 mmol/L (136-145) Potassium Level 7.4 mmol/L (3.5-5.1) Chloride Level 93 mmol/L (98-107) Carbon Dioxide Level 27 mmol/L (21-32) Anion Gap 10 (6-14) Blood Urea Nitrogen 82 mg/dL (7-20) Creatinine 6.8 mg/dL (0.6-1.0) Estimated GFR (Cockcroft-Gault) 7.5 Glucose Level 105 mg/dL (70-99) Calcium Level 8.7 mg/dL (8.5-10.1) Test 02/11/21 07:27 Glucose (Fingerstick) 106 mg/dL (70-99) Micro Micro Microbiology 01/27/21 Blood Culture - Final, Complete Review of Systems Constitutional: yes: other (CONFUSED) Physical Exam General Appearance: mild distress Skin: warm Respiratory: bilateral CTA, decreased breath sounds Heart: S1S2 Abdomen: soft, bowel sounds present Genitourinary: bladder flat Extremities: pulses present Neurology: confused Musculoskeletal: Osteoarthritis Assessment Assessment IMP FEVERS HYPERKALEMIA COVID 19 POS [id number] ARM BC AVF HTN [id number] ENCEPHALOPATHY DUE TO ABOVE AND POSSIBLE COVID 19 RELATED LEUCOCYTOSIS-NEW ANEMIA FLUID OVERLOAD-RESOLVED ACUTE ON CHRONIC DIASTOLIC CHF FEVER CAD WITH CABG BACTEREMIA PLAN EDGAR ON HOLD CONT HOME MEDS RENAL DIET ENC COMPLIANCE ID EVAL AND TX HD TODAY UF TO TW D/W ATTENDING TING REYNA MD Feb 11, 2021 10:19
--- NOTE | 2021-02-11 10:45 | PDOC ---
Date of Service: DATE: 02/11/21 TIME: 10:40 Objective: Objective: Tmax 100.1 Stools/intake not charted. On PPN. Vital Signs: Vital Signs Date Time Temp Pulse Resp B/P (MAP) Pulse Ox O2 Delivery O2 Flow Rate FiO2 02/11/21 07:00 100.1 68 18 137/66 (89) 96 Room Air 100.1 Labs: Laboratory Tests Test 02/10/21 10:58 02/10/21 16:18 02/10/21 20:18 02/11/21 06:30 Glucose (Fingerstick) 126 mg/dL 117 mg/dL 121 mg/dL White Blood Count 9.7 x10^3/uL Red Blood Count 2.29 x10^6/uL Hemoglobin 7.1 g/dL Hematocrit 20.9 % Mean Corpuscular Volume 91 fL Mean Corpuscular Hemoglobin 31 pg Mean Corpuscular Hemoglobin Concent 34 g/dL Red Cell Distribution Width 15.3 % Platelet Count 198 x10^3/uL Neutrophils (%) (Auto) 88 % Lymphocytes (%) (Auto) 6 % Monocytes (%) (Auto) 6 % Eosinophils (%) (Auto) 0 % Basophils (%) (Auto) 0 % Neutrophils # (Auto) 8.5 x10^3/uL Lymphocytes # (Auto) 0.5 x10^3/uL Monocytes # (Auto) 0.6 x10^3/uL Eosinophils # (Auto) 0.0 x10^3/uL Basophils # (Auto) 0.0 x10^3/uL Sodium Level 130 mmol/L Potassium Level 7.4 mmol/L Chloride Level 93 mmol/L Carbon Dioxide Level 27 mmol/L Anion Gap 10 Blood Urea Nitrogen 82 mg/dL Creatinine 6.8 mg/dL Estimated GFR (Cockcroft-Gault) 7.5 Glucose Level 105 mg/dL Calcium Level 8.7 mg/dL Test 02/11/21 07:27 Glucose (Fingerstick) 106 mg/dL PE: GEN: breakfast tray untouched LUNGS: room air ABD: soft, apparently non-tender NEURO/PSYCH: sleeping - did not awaken when I said her name and examined her abdomen A/P: COVID (recovered), encephalopathy Chronic abd pain, GERD, gastroparesis - on PPI and Reglan -- Ongoing issues, continue same per GI. Justicifation of Admission Dx: Justifications for Admission: Justification of Admission Dx: N/A ALL GONZALEZ Feb 11, 2021 10:45
--- NOTE | 2021-02-11 12:31 | NUR ---
SW following. Discussed with RN. Per Alice () referral sent to [facility] last week but was unable to get through to admissions. ELYSE spoke with [facility], they never received the referral - requested referral be sent again. ELYSE faxed referral, awaiting acceptance decision. ELYSE will continue to follow. Addendum: 02/11/21 at 1643 by WASHINGTON PAPPAS [facility] declined to take pt. Pt had been accepted at [facility] and had insurance auth - it appears this is the only accepting facility for patient. Pt transferred to ER and intubated - awaiting ICU bed. Alice Ruiz) notified and will follow.
[2021-02-11] MEDS: NOREPINEPHRINE VIAL 8 MG in IV DEXTROSE 5% 250 ML IV PRN ×3 (13:03→19:18)
[2021-02-11 13:07] LABS: BASE EXCESS ABG 1 mmol/L (-3-3); HCO3 ABG 22 mmol/L (21-28); PCO2 ABG 21 mmHg (35-46); PO2 ABG 222 mmHg (75-108); SAT O2 ABG 98 % (92-99)
[2021-02-11 13:11] LABS: FIO2 ABG 100/VENT
[2021-02-11 13:15] LABS: BASO % 1 % (0-3); EOS % 0 % (0-3); LYMPH # 0.4 x10^3/uL (1.0-4.8); LYMPH % 5 % (24-48); MEAN CORPUSCULAR HEMOGLOBIN 30 pg (25-35); MEAN CORPUSCULAR HGB CONC 34 g/dL (31-37); MEAN CORPUSCULAR VOLUME 91 fL (79-100); MONO # 0.5 x10^3/uL (0.0-1.1); MONO % 6 % (0-9); NEUT # 7.7 x10^3/uL (1.8-7.7); NEUT % 89 % (31-73); PLATELET COUNT 142 x10^3/uL (140-400); RED BLOOD COUNT 1.99 x10^6/uL (3.50-5.40); RED CELL DISTRIBUTION WIDTH 15.2 % (11.5-14.5); WHITE BLOOD COUNT 8.6 x10^3/uL (4.0-11.0)
--- NOTE | 2021-02-11 13:22 | NUR ---
Pt in dialysis where first code blue happened. Pt intubated during code , resuscitated, Pt taken to ER bed while waiting to ICU bed to open up. Arrived in ER at 1235. Pt hooked up to skidder runner and RT hooked to vent. 1344 Pt noted to be in PEA again , see code blue sheet. 1249 Pt resuscitated, Norepinephrine start and rapidly titrated up to 0.6mcg/kg/min due to inability to get a blood pressure using several limbs. Dr Ng called and updated him on pt condition. He stated will try to get a hold on family . Dr Arteaga made aware and new consult
[2021-02-11 13:41] LABS: ALBUMIN 1.6 g/dL (3.4-5.0); ALBUMIN/GLOBULIN RATIO 0.5 (1.0-1.7); CALCIUM 7.3 mg/dL (8.5-10.1); CREATININE 4.8 mg/dL (0.6-1.0); GFR 11.3; POTASSIUM 5.4 mmol/L (3.5-5.1); TOTAL BILIRUBIN 0.4 mg/dL (0.2-1.0); TOTAL PROTEIN 4.7 g/dL (6.4-8.2)
[2021-02-11 13:43] LABS: HEMOGLOBIN 6.1 g/dL (12.0-15.5)
[2021-02-11] MEDS ORDERED: fentaNYL PF VIAL 100 MCG/2 ML VIAL IV PRN (13:45)
[2021-02-11] MEDS ORDERED: MIDAZOLAM HCL/PF 5 MG/5 ML VIAL. IV PRN (13:45)
--- NOTE | 2021-02-11 13:53 | PDOC5 ---
CODE REPORT CODE REPORT Respond to CODE BLUE in the fifth floor, patient was coded, CPR in progress. Patient was resuscitated under the supervision of Dr. Thomas per ACLS protocol. Patient was intubated by this physician by rapid sequence intubation ET # 7.5 USING GLIDESCOPE. ROSC was achieved. Patient was moved to ICU. Post intubation chest xray shown almost right main stem. RT was instructed to pull ET out 3 cm. PURNIMA REY DO Feb 11, 2021 13:53
--- NOTE | 2021-02-11 14:28 | PDOC ---
Provider Note Date of Service: DATE: 02/11/21 TIME: 14:23 Provider Note the patient was coded one and half hours into dialysis when she had vomiting followed by bradycardia and aspiration. she was transferred to the emergency room because there are no beds in the ICU. She has been coded twice in the emergency room. I have spoken to patient's brother and on phone at [phone].I also left a message for patient's daughter Maria Esther Ruiz to call back immediately so we can discuss condition, treatment ,prognosis and CODE STATUS.hemoglobin dropped to 6.1. Vomitus was coffee-ground. Type and cross and transfuse one unit of packed red cells. May need second unit. Consult Dr. Youngblood for GI dilation management. Consult toolmaker. Prognosis is extremely poor. hemoglobin is 6.1, potassium 5.4.condition him a treatment discussed with Dr. Hernandez, with the staff several times. Justifications for Admission Other Justification GAURAV DANG MD Feb 11, 2021 14:28
--- NOTE | 2021-02-11 14:28 | PDOC ---
PULMONARY PROGRESS NOTES DATE: 02/11/21 TIME: 14:21 Subjective Patient seen in the emergency department, She has had cardiopulmonary arrest has been resuscitated x2 Currently on assist control ventilation Vitals Vital Signs Date Time Temp Pulse Resp B/P (MAP) Pulse Ox O2 Delivery O2 Flow Rate FiO2 02/11/21 12:55 100 Ventilator 02/11/21 07:00 100.1 68 18 137/66 (89) 100.1 HEENT: Other Lungs: Crackles Cardiovascular: S1, S2 Abdomen: Soft Labs Laboratory Tests Test 02/09/21 17:24 02/09/21 20:13 02/10/21 07:13 02/10/21 10:58 Glucose (Fingerstick) 127 mg/dL (70-99) 123 mg/dL (70-99) 113 mg/dL (70-99) 126 mg/dL (70-99) Test 02/10/21 16:18 02/10/21 20:18 02/11/21 06:30 02/11/21 07:27 Glucose (Fingerstick) 117 mg/dL (70-99) 121 mg/dL (70-99) 106 mg/dL (70-99) White Blood Count 9.7 x10^3/uL (4.0-11.0) Red Blood Count 2.29 x10^6/uL (3.50-5.40) Hemoglobin 7.1 g/dL (12.0-15.5) Hematocrit 20.9 % (36.0-47.0) Mean Corpuscular Volume 91 fL (79-100) Mean Corpuscular Hemoglobin 31 pg (25-35) Mean Corpuscular Hemoglobin Concent 34 g/dL (31-37) Red Cell Distribution Width 15.3 % (11.5-14.5) Platelet Count 198 x10^3/uL (140-400) Neutrophils (%) (Auto) 88 % (31-73) Lymphocytes (%) (Auto) 6 % (24-48) Monocytes (%) (Auto) 6 % (0-9) Eosinophils (%) (Auto) 0 % (0-3) Basophils (%) (Auto) 0 % (0-3) Neutrophils # (Auto) 8.5 x10^3/uL (1.8-7.7) Lymphocytes # (Auto) 0.5 x10^3/uL (1.0-4.8) Monocytes # (Auto) 0.6 x10^3/uL (0.0-1.1) Eosinophils # (Auto) 0.0 x10^3/uL (0.0-0.7) Basophils # (Auto) 0.0 x10^3/uL (0.0-0.2) Sodium Level 130 mmol/L (136-145) Potassium Level 7.4 mmol/L (3.5-5.1) Chloride Level 93 mmol/L (98-107) Carbon Dioxide Level 27 mmol/L (21-32) Anion Gap 10 (6-14) Blood Urea Nitrogen 82 mg/dL (7-20) Creatinine 6.8 mg/dL (0.6-1.0) Estimated GFR (Cockcroft-Gault) 7.5 Glucose Level 105 mg/dL (70-99) Calcium Level 8.7 mg/dL (8.5-10.1) Test 02/11/21 12:57 02/11/21 13:01 O2 Saturation 98 % (92-99) Arterial Blood pH 7.64 (7.35-7.45) Arterial Blood pCO2 at Patient Temp 21 mmHg (35-46) Arterial Blood pO2 at Patient Temp 222 mmHg (75-108) Arterial Blood HCO3 22 mmol/L (21-28) Arterial Blood Base Excess 1 mmol/L (-3-3) FiO2 100/vent White Blood Count 8.6 x10^3/uL (4.0-11.0) Red Blood Count 1.99 x10^6/uL (3.50-5.40) Hemoglobin 6.1 g/dL (12.0-15.5) Hematocrit 18.0 % (36.0-47.0) Mean Corpuscular Volume 91 fL (79-100) Mean Corpuscular Hemoglobin 30 pg (25-35) Mean Corpuscular Hemoglobin Concent 34 g/dL (31-37) Red Cell Distribution Width 15.2 % (11.5-14.5) Platelet Count 142 x10^3/uL (140-400) Neutrophils (%) (Auto) 89 % (31-73) Lymphocytes (%) (Auto) 5 % (24-48) Monocytes (%) (Auto) 6 % (0-9) Eosinophils (%) (Auto) 0 % (0-3) Basophils (%) (Auto) 1 % (0-3) Neutrophils # (Auto) 7.7 x10^3/uL (1.8-7.7) Lymphocytes # (Auto) 0.4 x10^3/uL (1.0-4.8) Monocytes # (Auto) 0.5 x10^3/uL (0.0-1.1) Eosinophils # (Auto) 0.0 x10^3/uL (0.0-0.7) Basophils # (Auto) 0.0 x10^3/uL (0.0-0.2) Sodium Level 137 mmol/L (136-145) Potassium Level 5.4 mmol/L (3.5-5.1) Chloride Level 100 mmol/L (98-107) Carbon Dioxide Level 22 mmol/L (21-32) Anion Gap 15 (6-14) Blood Urea Nitrogen 62 mg/dL (7-20) Creatinine 4.8 mg/dL (0.6-1.0) Estimated GFR (Cockcroft-Gault) 11.3 BUN/Creatinine Ratio 13 (6-20) Glucose Level 83 mg/dL (70-99) Calcium Level 7.3 mg/dL (8.5-10.1) Total Bilirubin 0.4 mg/dL (0.2-1.0) Aspartate Amino Transf (AST/SGOT) 245 U/L (15-37) Alanine Aminotransferase (ALT/SGPT) 137 U/L (14-59) Alkaline Phosphatase 150 U/L (46-116) Total Protein 4.7 g/dL (6.4-8.2) Albumin 1.6 g/dL (3.4-5.0) Albumin/Globulin Ratio 0.5 (1.0-1.7) Laboratory Tests Test 02/10/21 16:18 02/10/21 20:18 02/11/21 06:30 02/11/21 07:27 Glucose (Fingerstick) 117 mg/dL (70-99) 121 mg/dL (70-99) 106 mg/dL (70-99) White Blood Count 9.7 x10^3/uL (4.0-11.0) Red Blood Count 2.29 x10^6/uL (3.50-5.40) Hemoglobin 7.1 g/dL (12.0-15.5) Hematocrit 20.9 % (36.0-47.0) Mean Corpuscular Volume 91 fL (79-100) Mean Corpuscular Hemoglobin 31 pg (25-35) Mean Corpuscular Hemoglobin Concent 34 g/dL (31-37) Red Cell Distribution Width 15.3 % (11.5-14.5) Platelet Count 198 x10^3/uL (140-400) Neutrophils (%) (Auto) 88 % (31-73) Lymphocytes (%) (Auto) 6 % (24-48) Monocytes (%) (Auto) 6 % (0-9) Eosinophils (%) (Auto) 0 % (0-3) Basophils (%) (Auto) 0 % (0-3) Neutrophils # (Auto) 8.5 x10^3/uL (1.8-7.7) Lymphocytes # (Auto) 0.5 x10^3/uL (1.0-4.8) Monocytes # (Auto) 0.6 x10^3/uL (0.0-1.1) Eosinophils # (Auto) 0.0 x10^3/uL (0.0-0.7) Basophils # (Auto) 0.0 x10^3/uL (0.0-0.2) Sodium Level 130 mmol/L (136-145) Potassium Level 7.4 mmol/L (3.5-5.1) Chloride Level 93 mmol/L (98-107) Carbon Dioxide Level 27 mmol/L (21-32) Anion Gap 10 (6-14) Blood Urea Nitrogen 82 mg/dL (7-20) Creatinine 6.8 mg/dL (0.6-1.0) Estimated GFR (Cockcroft-Gault) 7.5 Glucose Level 105 mg/dL (70-99) Calcium Level 8.7 mg/dL (8.5-10.1) Test 02/11/21 12:57 02/11/21 13:01 O2 Saturation 98 % (92-99) Arterial Blood pH 7.64 (7.35-7.45) Arterial Blood pCO2 at Patient Temp 21 mmHg (35-46) Arterial Blood pO2 at Patient Temp 222 mmHg (75-108) Arterial Blood HCO3 22 mmol/L (21-28) Arterial Blood Base Excess 1 mmol/L (-3-3) FiO2 100/vent White Blood Count 8.6 x10^3/uL (4.0-11.0) Red Blood Count 1.99 x10^6/uL (3.50-5.40) Hemoglobin 6.1 g/dL (12.0-15.5) Hematocrit 18.0 % (36.0-47.0) Mean Corpuscular Volume 91 fL (79-100) Mean Corpuscular Hemoglobin 30 pg (25-35) Mean Corpuscular Hemoglobin Concent 34 g/dL (31-37) Red Cell Distribution Width 15.2 % (11.5-14.5) Platelet Count 142 x10^3/uL (140-400) Neutrophils (%) (Auto) 89 % (31-73) Lymphocytes (%) (Auto) 5 % (24-48) Monocytes (%) (Auto) 6 % (0-9) Eosinophils (%) (Auto) 0 % (0-3) Basophils (%) (Auto) 1 % (0-3) Neutrophils # (Auto) 7.7 x10^3/uL (1.8-7.7) Lymphocytes # (Auto) 0.4 x10^3/uL (1.0-4.8) Monocytes # (Auto) 0.5 x10^3/uL (0.0-1.1) Eosinophils # (Auto) 0.0 x10^3/uL (0.0-0.7) Basophils # (Auto) 0.0 x10^3/uL (0.0-0.2) Sodium Level 137 mmol/L (136-145) Potassium Level 5.4 mmol/L (3.5-5.1) Chloride Level 100 mmol/L (98-107) Carbon Dioxide Level 22 mmol/L (21-32) Anion Gap 15 (6-14) Blood Urea Nitrogen 62 mg/dL (7-20) Creatinine 4.8 mg/dL (0.6-1.0) Estimated GFR (Cockcroft-Gault) 11.3 BUN/Creatinine Ratio 13 (6-20) Glucose Level 83 mg/dL (70-99) Calcium Level 7.3 mg/dL (8.5-10.1) Total Bilirubin 0.4 mg/dL (0.2-1.0) Aspartate Amino Transf (AST/SGOT) 245 U/L (15-37) Alanine Aminotransferase (ALT/SGPT) 137 U/L (14-59) Alkaline Phosphatase 150 U/L (46-116) Total Protein 4.7 g/dL (6.4-8.2) Albumin 1.6 g/dL (3.4-5.0) Albumin/Globulin Ratio 0.5 (1.0-1.7) Medications Active Scripts Medications Dose Route/Sig Max Daily Dose Days Date Category Dose Instructions Lactulose 10 Gm Packet 10 Gm PO Q6HRS 01/16/21 Reported Lidocaine 15 Gm Cream..g. 1 Karma TP TID PRN 30 01/16/21 Reported Isosorbide Mononitrate Er (Isosorbide Mononitrate) 60 Mg Tab.er.24h 1 Tab PO DAILY 01/16/21 Reported Vitamin A 2,400 Mcg Capsule 1,250 Mcg PO WEEKLY 01/16/21 Reported Hydrocodone-Apap 10-325 (Hydrocodone Bit/Acetaminophen) 1 Tab Tablet 1 Tab PO PRN Q6HRS PRN 01/16/21 Reported Ultram (Tramadol Hcl) 50 Mg Tablet 1 Tab PO BID MDD 2 Tablet(s) 30 01/16/21 Reported Hydralazine Hcl 50 Mg Tablet 1 Tab PO TID 01/16/21 Reported Acetaminophen 325 Mg Tablet 2 Tab PO Q6HRS PRN 30 01/16/21 Reported Glucose Gel (Dextrose) 38 Gm Gel..gram. 15 Gm PO PRN 01/16/21 Reported Sertraline Hcl 100 Mg Tablet 100 Mg PO DAILY 01/16/21 Reported Glucagon Emergency Kit (Glucagon,Human Recombinant) 1 Mg Kit 1 Mg IM PRN 01/16/21 Reported Senna Plus Tablet (Sennosides/Docusate Sodium) 1 Each Tablet 2 Tab PO QHS 14 01/16/21 Reported Zetia (Ezetimibe) 10 Mg Tablet 1 Tab PO DAILY 30 01/16/21 Reported Renvela (Sevelamer Carbonate) 800 Mg Tablet 800 Mg PO TIDWMEALS 01/16/21 Reported Escitalopram Oxalate 10 Mg Tablet 1 Tab PO DAILY 01/16/21 Reported Lyrica (Pregabalin) 50 Mg Capsule 25 Mg PO QHS 01/16/21 Reported [creon] 1 Cap PO TIDAC 01/16/21 Reported Oxycodone HCl 5 Mg Tablet 5 Mg PO Q8HRS PRN 01/16/21 Reported [zenpep] 10 Mg PO TIDAC 01/16/21 Reported Clonidine Hcl 0.2 Mg Tablet 0.2 Mg PO BID 01/16/21 Reported Zofran (Ondansetron Hcl) 4 Mg Tablet 1 Tab PO Q4HRS PRN 01/16/21 Reported Sensipar (Cinacalcet Hcl) 30 Mg Tablet 1 Tab PO DAILY 30 01/16/21 Reported Mirtazapine 15 Mg Tablet 1 Tab PO QHS 01/16/21 Reported Atorvastatin Calcium 40 Mg Tablet 80 Mg PO HS 01/16/21 Reported Minoxidil 2.5 Mg Tablet 2.5 Mg PO DAILY 01/16/21 Reported Amlodipine Besylate 10 Mg Tablet 10 Mg PO DAILY 01/16/21 Reported Lidocaine PATCH (Lidocaine) 1 Each Adh..patch 1 Each TP DAILY 01/16/21 Reported REMOVE AFTER 12 HOURS Proair Hfa Inhaler (Albuterol Sulfate) 8.5 Gm Hfa.aer.ad 2 Puff INH PRN Q6HRS PRN 01/16/21 Reported Lactulose 20 Gm/30 Ml Solution 20 Gm PO BID 5 03/17/18 Rx Culturelle (Lactobacillus Rhamnosus Gg) 1 Each Cap.sprink 1 Cap PO BID 01/19/18 Rx Metoclopramide Hcl 5 Mg/1 Ml Vial 5 Mg IV PRN Q6HRS PRN 01/19/18 Rx Metoclopramide Hcl 5 Mg/1 Ml Vial 5 Mg IV [id number] 01/19/18 Rx Ondansetron Hcl 4 Mg/2 Ml Vial (Ondansetron Hcl/Pf) 4 Mg/2 Ml Vial 4 Mg IV PRN Q6HRS PRN 01/19/18 Rx Buspirone Hcl 5 Mg Tablet 5 Mg PO TID 01/19/18 Rx Quetiapine Fumarate 25 Mg Tablet 12.5 Mg PO PRN Q6HRS PRN 01/19/18 Rx Quetiapine Fumarate 25 Mg Tablet 25 Mg PO QHS 01/19/18 Rx Sertraline Hcl 50 Mg Tablet 50 Mg PO DAILY 01/19/18 Rx Hydrocodone-Apap 7.5-325 (Hydrocodone Bit/Acetaminophen) 1 Each Tablet 1 Tab PO PRN Q8HRS PRN 01/19/18 Rx Fentanyl 0.05 Mg/Ml Vial (Fentanyl Citrate/Pf) 50 Mcg/1 Ml Vial 50 Mcg IV PRN Q4HRS PRN 01/19/18 Rx [Darbepoetin Ty In Polysorbat] 60 MCG/0.3 ML Disp.syrin 60 Mcg SQ WEEKLYHS 01/19/18 Rx Zyvox (Linezolid) 600 Mg Tablet 600 Mg PO BID 01/19/18 Rx Vitamin D3 (Cholecalciferol (Vitamin D3)) 1,000 Unit Tablet 1 Tab PO DAILY 12/28/17 Rx [Calcium Acetate] 667 MG Capsule 1,334 Mg PO TIDWMEALS 12/28/17 Rx Mapap (Acetaminophen) 500 Mg Tablet 1,000 Mg PO TID 12/28/17 Rx Carvedilol (Carvedilol) 12.5 Mg Tablet 12.5 Mg PO BIDWMEALS 12/28/17 Rx Minoxidil 2.5 Mg Tablet 2.5 Mg PO BID 07/19/17 Rx Isosorbide Mononitrate Er (Isosorbide Mononitrate) 30 Mg Tab.er.24h 120 Mg PO DAILY 07/19/17 Rx Montelukast Sodium Tablet (Montelukast Sodium) 10 Mg Tablet 10 Mg PO QHS 05/07/17 Rx Polyethylene Glycol 3350 2,500 Gm Powder 17 Gm PO DAILY 04/09/17 Rx Nitrostat (Nitroglycerin) 0.4 Mg Tab.subl 0.4 Mg SL PRN Q5MIN PRN 12/30/16 Reported Plavix (Clopidogrel Bisulfate) 75 Mg Tablet 1 Tab PO DAILY 12/30/16 Reported Novolog Flexpen (Insulin Aspart) 100 Unit/1 Ml Insuln.pen 0 Units SQ TIDAC 11/26/16 Rx Take sub q tid ac: BS 151-200=2 unit, 201-250=3 unit, [id number], BS 301-350=6 unit, BS 351-400 =8 unit. BS>401 call MD Renetta Busch 10,000 Units Capsule (Lipase/Protease/Amylase) 1 Each Capsule. 2 Cap PO TIDWMEALS 11/26/16 Rx TAke 2 cap tid with meals Nephro-Donny Tablet (Folic Acid/Vitamin B Comp W-C) 0.8 Mg Tablet 1 Tab PO DAILY 07/07/16 Rx Benadryl (Diphenhydramine Hcl) 25 Mg Capsule 25 Mg PO PRN Q6HRS PRN 07/07/16 Rx Zoloft (Sertraline Hcl) 100 Mg Tablet 1 Tab PO DAILY 07/01/16 Reported Pantoprazole Sodium (Pantoprazole Sodium) 40 Mg Tablet.dr 1 Tab PO DAILY 07/01/16 Reported Losartan Potassium 100 Mg Tablet 100 Mg PO DAILY 01/14/16 Reported Aspir 81 (Aspirin) 81 Mg Tablet.dr 81 Mg PO DAILY 01/14/16 Reported Impression . IMPRESSION: 1. Acute respiratory failure multifactorial status post CODE BLUE 2. Abnormal chest x-ray with bilateral interstitial infiltrates consistent with viral pneumonia. improved and almost resolved 01/24 3. End-stage renal disease/hyperkalemia 4. Acute GI blood loss 5. Encephalopathy multifactorial 6. Leukocytosis suspect sepsis 7. Acute on chronic diastolic heart failure 8. Bacteremia Plan . Patient seen the emergency department Adjust minute ventilation to normalize pH Transfuse to maintain hemoglobin above 7 Antibiotics per ID Short and long-term prognosis is poor RN informed me that Dr. Ng is in touch with the family regarding advanced directive Doubt patient will survive Pressors for mean arterial pressure above 60 SAM DURANT MD Feb 11, 2021 14:28
--- NOTE | 2021-02-11 14:31 | PN ---
DATE: 02/11/2021 CODE BLUE NOTE SUBJECTIVE: Upon hearing code blue overhead, I arrived to the patient's room in the dialysis area. Compressions had already been initiated. The ER physician, Dr. Briceño arrived as well and worked on intubating the patient, while I assisted with running the code. We gave several rounds of epinephrine and bicarbonate and multiple rounds of compressions, which we stopped every couple of minutes to see if we had a pulse. Eventually, we did regain a pulse. The patient's blood pressure was 154/82. We transferred her to the ER room #2, as there was no ICU beds available. TOTAL CRITICAL CARE TIME: [address]: Hollie TID: [id number]
--- NOTE | 2021-02-11 14:58 | RAD ---
Single AP view of the chest. Comparison: 01/24/2021. Indication: ET tube placement postcode Findings: Endotracheal tube is at the level of the faye. Nasogastric tube is seen. Tip is not well identified . Sternotomy wires and CABG clips are identified. The heart is enlarged but stable. There is no pneu mothorax or effusion. No air space or interstitial disease. Impression: 1. No acute cardiopulmonary process. 2. Endotracheal tube at the level of the faye. If this is functioning well positioned may be adequa te, however, may consider slight retraction if indicated. Electronically signed by: Amado Lang MD (02/11/2021 2:56 PM) [facility]
[2021-02-11] MEDS: DEXTROSE 50% 25 GM / 50ML DISP.SYRIN. IV PRN ×2 (15:31→15:42)
--- NOTE | 2021-02-11 15:45 | PDOC ---
Date of Service: DATE: 02/11/21 TIME: 15:34 Objective: Objective: Coded in dialysis and we are asked to see. Reviewed chart - vomited, concern for aspiration, mention of "coffee-ground" emesis. Notes Hgb down and LFTs up - plans for transfusion. D/w nurse at bedside - lots of brown liquid stool, dark output from OGT. Coded three times so far. Apparently some discussion of Hospice amongst family (previous to today's events) but no decision made so remains full code. Vital Signs: Vital Signs Date Time Temp Pulse Resp B/P (MAP) Pulse Ox O2 Delivery O2 Flow Rate FiO2 02/11/21 15:08 71 20 138/60 (86) 100 Ventilator 02/11/21 13:55 98.0 98.0 Labs: Laboratory Tests Test 02/10/21 16:18 02/10/21 20:18 02/11/21 06:30 02/11/21 07:27 Glucose (Fingerstick) 117 mg/dL 121 mg/dL 106 mg/dL White Blood Count 9.7 x10^3/uL Red Blood Count 2.29 x10^6/uL Hemoglobin 7.1 g/dL Hematocrit 20.9 % Mean Corpuscular Volume 91 fL Mean Corpuscular Hemoglobin 31 pg Mean Corpuscular Hemoglobin Concent 34 g/dL Red Cell Distribution Width 15.3 % Platelet Count 198 x10^3/uL Neutrophils (%) (Auto) 88 % Lymphocytes (%) (Auto) 6 % Monocytes (%) (Auto) 6 % Eosinophils (%) (Auto) 0 % Basophils (%) (Auto) 0 % Neutrophils # (Auto) 8.5 x10^3/uL Lymphocytes # (Auto) 0.5 x10^3/uL Monocytes # (Auto) 0.6 x10^3/uL Eosinophils # (Auto) 0.0 x10^3/uL Basophils # (Auto) 0.0 x10^3/uL Sodium Level 130 mmol/L Potassium Level 7.4 mmol/L Chloride Level 93 mmol/L Carbon Dioxide Level 27 mmol/L Anion Gap 10 Blood Urea Nitrogen 82 mg/dL Creatinine 6.8 mg/dL Estimated GFR (Cockcroft-Gault) 7.5 Glucose Level 105 mg/dL Calcium Level 8.7 mg/dL Test 02/11/21 12:57 02/11/21 13:01 O2 Saturation 98 % Arterial Blood pH 7.64 Arterial Blood pCO2 at Patient Temp 21 mmHg Arterial Blood pO2 at Patient Temp 222 mmHg Arterial Blood HCO3 22 mmol/L Arterial Blood Base Excess 1 mmol/L FiO2 100/vent White Blood Count 8.6 x10^3/uL Red Blood Count 1.99 x10^6/uL Hemoglobin 6.1 g/dL Hematocrit 18.0 % Mean Corpuscular Volume 91 fL Mean Corpuscular Hemoglobin 30 pg Mean Corpuscular Hemoglobin Concent 34 g/dL Red Cell Distribution Width 15.2 % Platelet Count 142 x10^3/uL Neutrophils (%) (Auto) 89 % Lymphocytes (%) (Auto) 5 % Monocytes (%) (Auto) 6 % Eosinophils (%) (Auto) 0 % Basophils (%) (Auto) 1 % Neutrophils # (Auto) 7.7 x10^3/uL Lymphocytes # (Auto) 0.4 x10^3/uL Monocytes # (Auto) 0.5 x10^3/uL Eosinophils # (Auto) 0.0 x10^3/uL Basophils # (Auto) 0.0 x10^3/uL Sodium Level 137 mmol/L Potassium Level 5.4 mmol/L Chloride Level 100 mmol/L Carbon Dioxide Level 22 mmol/L Anion Gap 15 Blood Urea Nitrogen 62 mg/dL Creatinine 4.8 mg/dL Estimated GFR (Cockcroft-Gault) 11.3 BUN/Creatinine Ratio 13 Glucose Level 83 mg/dL Calcium Level 7.3 mg/dL Total Bilirubin 0.4 mg/dL Aspartate Amino Transf (AST/SGOT) 245 U/L Alanine Aminotransferase (ALT/SGPT) 137 U/L Alkaline Phosphatase 150 U/L Total Protein 4.7 g/dL Albumin 1.6 g/dL Albumin/Globulin Ratio 0.5 PE: GEN: intubated LUNGS: vent/diminished HEART: RRR ABD: BS+, soft, non-distended, actively stooling - brown (liquid and solid), OG w/ watery black material NEURO/PSYCH: sedated A/P: "Coffee-ground" emesis, concern for aspiration, s/p code COVID (+01/16, now considered "recovered"), encephalopathy, ESRD on HD, hyperkalemia (better) Chronic anemia - Hgb lower than baseline post-code Elevated LFTs post-code - some elevation noted in past GERD, gastroparesis, chronic abd pain -- Has been on PO PPI and Reglan for quite some time this admission. Plans for transfusion - agree. Change from PO to IV PPI. Observe and await family's decisions. Justicifation of Admission Dx: Justifications for Admission: Justification of Admission Dx: N/A ALL GONZALEZ Feb 11, 2021 15:45
--- NOTE | 2021-02-11 16:20 | PDOC ---
PROGRESS NOTES Date of Service DATE: 02/11/21 TIME: 16:17 Assessment Problems Medical Problems: (1) Altered mental status Status: Acute (2) ESRD (end stage renal disease) on dialysis Status: Acute (3) Hypertensive urgency Status: Acute Status-post 3 code bluedaron today, now on vent Encephalopathy, hypertensive, also role of COVID 19 encephalopathy. She had been taking out her IVs and refuses to eat, has some bizarre behavior at home including sitting around naked. She was eating some She is requiring quetiapine, mirtazapine, lorazepam COVID 19 History of strokes including chronic right basal ganglia and bilateral thalamic lacunar infarcts on the CT. CT also shows white matter disease consistent with hypertension and diabetes, I doubt that she also has demyelinating disease. She is on statin, aspirin, clopidogrel Elevated troponin, renal failure, anemia, coronary artery disease, diastolic congestive heart failure, fever. 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, deconditioning, status-post coronary artery bypass grafting, peripheral artery disease Heartburn, nausea, vomiting, better Low back pain without evidence of acute radiculopathy or myelopathy Plan Discussed with family, including concept of futile care Treat medical issues Subjective None Objective Vital Signs Date Time Temp Pulse Resp B/P (MAP) Pulse Ox O2 Delivery O2 Flow Rate FiO2 02/11/21 16:04 76 20 126/56 (79) 100 Ventilator 02/11/21 13:55 98.0 98.0 Intake and Output 02/11/21 07:00 Intake Total 125 ml Balance 125 ml Intake Oral 125 ml PHYSICAL EXAM On ventilator, triggers it Pinpoint pupils, not reactive Roving eyes CN: no focal findings. Muscle tone: normal. Muscle strength: no pain response DTR: 0-1+ Plantar reflex: silent Gait: not examined Sensory exam: not cooperative Cerebellar: not cooperative Review of Relevant I have reviewed the following items richard (where applicable) has been applied. Labs Laboratory Tests Test 02/09/21 17:24 02/09/21 20:13 02/10/21 07:13 02/10/21 10:58 Glucose (Fingerstick) 127 mg/dL (70-99) 123 mg/dL (70-99) 113 mg/dL (70-99) 126 mg/dL (70-99) Test 02/10/21 16:18 02/10/21 20:18 02/11/21 06:30 02/11/21 07:27 Glucose (Fingerstick) 117 mg/dL (70-99) 121 mg/dL (70-99) 106 mg/dL (70-99) White Blood Count 9.7 x10^3/uL (4.0-11.0) Red Blood Count 2.29 x10^6/uL (3.50-5.40) Hemoglobin 7.1 g/dL (12.0-15.5) Hematocrit 20.9 % (36.0-47.0) Mean Corpuscular Volume 91 fL (79-100) Mean Corpuscular Hemoglobin 31 pg (25-35) Mean Corpuscular Hemoglobin Concent 34 g/dL (31-37) Red Cell Distribution Width 15.3 % (11.5-14.5) Platelet Count 198 x10^3/uL (140-400) Neutrophils (%) (Auto) 88 % (31-73) Lymphocytes (%) (Auto) 6 % (24-48) Monocytes (%) (Auto) 6 % (0-9) Eosinophils (%) (Auto) 0 % (0-3) Basophils (%) (Auto) 0 % (0-3) Neutrophils # (Auto) 8.5 x10^3/uL (1.8-7.7) Lymphocytes # (Auto) 0.5 x10^3/uL (1.0-4.8) Monocytes # (Auto) 0.6 x10^3/uL (0.0-1.1) Eosinophils # (Auto) 0.0 x10^3/uL (0.0-0.7) Basophils # (Auto) 0.0 x10^3/uL (0.0-0.2) Sodium Level 130 mmol/L (136-145) Potassium Level 7.4 mmol/L (3.5-5.1) Chloride Level 93 mmol/L (98-107) Carbon Dioxide Level 27 mmol/L (21-32) Anion Gap 10 (6-14) Blood Urea Nitrogen 82 mg/dL (7-20) Creatinine 6.8 mg/dL (0.6-1.0) Estimated GFR (Cockcroft-Gault) 7.5 Glucose Level 105 mg/dL (70-99) Calcium Level 8.7 mg/dL (8.5-10.1) Test 02/11/21 12:57 02/11/21 13:01 02/11/21 15:28 02/11/21 15:41 O2 Saturation 98 % (92-99) Arterial Blood pH 7.64 (7.35-7.45) Arterial Blood pCO2 at Patient Temp 21 mmHg (35-46) Arterial Blood pO2 at Patient Temp 222 mmHg (75-108) Arterial Blood HCO3 22 mmol/L (21-28) Arterial Blood Base Excess 1 mmol/L (-3-3) FiO2 100/vent White Blood Count 8.6 x10^3/uL (4.0-11.0) Red Blood Count 1.99 x10^6/uL (3.50-5.40) Hemoglobin 6.1 g/dL (12.0-15.5) Hematocrit 18.0 % (36.0-47.0) Mean Corpuscular Volume 91 fL (79-100) Mean Corpuscular Hemoglobin 30 pg (25-35) Mean Corpuscular Hemoglobin Concent 34 g/dL (31-37) Red Cell Distribution Width 15.2 % (11.5-14.5) Platelet Count 142 x10^3/uL (140-400) Neutrophils (%) (Auto) 89 % (31-73) Lymphocytes (%) (Auto) 5 % (24-48) Monocytes (%) (Auto) 6 % (0-9) Eosinophils (%) (Auto) 0 % (0-3) Basophils (%) (Auto) 1 % (0-3) Neutrophils # (Auto) 7.7 x10^3/uL (1.8-7.7) Lymphocytes # (Auto) 0.4 x10^3/uL (1.0-4.8) Monocytes # (Auto) 0.5 x10^3/uL (0.0-1.1) Eosinophils # (Auto) 0.0 x10^3/uL (0.0-0.7) Basophils # (Auto) 0.0 x10^3/uL (0.0-0.2) Sodium Level 137 mmol/L (136-145) Potassium Level 5.4 mmol/L (3.5-5.1) Chloride Level 100 mmol/L (98-107) Carbon Dioxide Level 22 mmol/L (21-32) Anion Gap 15 (6-14) Blood Urea Nitrogen 62 mg/dL (7-20) Creatinine 4.8 mg/dL (0.6-1.0) Estimated GFR (Cockcroft-Gault) 11.3 BUN/Creatinine Ratio 13 (6-20) Glucose Level 83 mg/dL (70-99) Calcium Level 7.3 mg/dL (8.5-10.1) Total Bilirubin 0.4 mg/dL (0.2-1.0) Aspartate Amino Transf (AST/SGOT) 245 U/L (15-37) Alanine Aminotransferase (ALT/SGPT) 137 U/L (14-59) Alkaline Phosphatase 150 U/L (46-116) Total Protein 4.7 g/dL (6.4-8.2) Albumin 1.6 g/dL (3.4-5.0) Albumin/Globulin Ratio 0.5 (1.0-1.7) Glucose (Fingerstick) 67 mg/dL (70-99) 88 mg/dL (70-99) Laboratory Tests Test 02/10/21 16:18 02/10/21 20:18 02/11/21 06:30 02/11/21 07:27 Glucose (Fingerstick) 117 mg/dL (70-99) 121 mg/dL (70-99) 106 mg/dL (70-99) White Blood Count 9.7 x10^3/uL (4.0-11.0) Red Blood Count 2.29 x10^6/uL (3.50-5.40) Hemoglobin 7.1 g/dL (12.0-15.5) Hematocrit 20.9 % (36.0-47.0) Mean Corpuscular Volume 91 fL (79-100) Mean Corpuscular Hemoglobin 31 pg (25-35) Mean Corpuscular Hemoglobin Concent 34 g/dL (31-37) Red Cell Distribution Width 15.3 % (11.5-14.5) Platelet Count 198 x10^3/uL (140-400) Neutrophils (%) (Auto) 88 % (31-73) Lymphocytes (%) (Auto) 6 % (24-48) Monocytes (%) (Auto) 6 % (0-9) Eosinophils (%) (Auto) 0 % (0-3) Basophils (%) (Auto) 0 % (0-3) Neutrophils # (Auto) 8.5 x10^3/uL (1.8-7.7) Lymphocytes # (Auto) 0.5 x10^3/uL (1.0-4.8) Monocytes # (Auto) 0.6 x10^3/uL (0.0-1.1) Eosinophils # (Auto) 0.0 x10^3/uL (0.0-0.7) Basophils # (Auto) 0.0 x10^3/uL (0.0-0.2) Sodium Level 130 mmol/L (136-145) Potassium Level 7.4 mmol/L (3.5-5.1) Chloride Level 93 mmol/L (98-107) Carbon Dioxide Level 27 mmol/L (21-32) Anion Gap 10 (6-14) Blood Urea Nitrogen 82 mg/dL (7-20) Creatinine 6.8 mg/dL (0.6-1.0) Estimated GFR (Cockcroft-Gault) 7.5 Glucose Level 105 mg/dL (70-99) Calcium Level 8.7 mg/dL (8.5-10.1) Test 02/11/21 12:57 02/11/21 13:01 02/11/21 15:28 02/11/21 15:41 O2 Saturation 98 % (92-99) Arterial Blood pH 7.64 (7.35-7.45) Arterial Blood pCO2 at Patient Temp 21 mmHg (35-46) Arterial Blood pO2 at Patient Temp 222 mmHg (75-108) Arterial Blood HCO3 22 mmol/L (21-28) Arterial Blood Base Excess 1 mmol/L (-3-3) FiO2 100/vent White Blood Count 8.6 x10^3/uL (4.0-11.0) Red Blood Count 1.99 x10^6/uL (3.50-5.40) Hemoglobin 6.1 g/dL (12.0-15.5) Hematocrit 18.0 % (36.0-47.0) Mean Corpuscular Volume 91 fL (79-100) Mean Corpuscular Hemoglobin 30 pg (25-35) Mean Corpuscular Hemoglobin Concent 34 g/dL (31-37) Red Cell Distribution Width 15.2 % (11.5-14.5) Platelet Count 142 x10^3/uL (140-400) Neutrophils (%) (Auto) 89 % (31-73) Lymphocytes (%) (Auto) 5 % (24-48) Monocytes (%) (Auto) 6 % (0-9) Eosinophils (%) (Auto) 0 % (0-3) Basophils (%) (Auto) 1 % (0-3) Neutrophils # (Auto) 7.7 x10^3/uL (1.8-7.7) Lymphocytes # (Auto) 0.4 x10^3/uL (1.0-4.8) Monocytes # (Auto) 0.5 x10^3/uL (0.0-1.1) Eosinophils # (Auto) 0.0 x10^3/uL (0.0-0.7) Basophils # (Auto) 0.0 x10^3/uL (0.0-0.2) Sodium Level 137 mmol/L (136-145) Potassium Level 5.4 mmol/L (3.5-5.1) Chloride Level 100 mmol/L (98-107) Carbon Dioxide Level 22 mmol/L (21-32) Anion Gap 15 (6-14) Blood Urea Nitrogen 62 mg/dL (7-20) Creatinine 4.8 mg/dL (0.6-1.0) Estimated GFR (Cockcroft-Gault) 11.3 BUN/Creatinine Ratio 13 (6-20) Glucose Level 83 mg/dL (70-99) Calcium Level 7.3 mg/dL (8.5-10.1) Total Bilirubin 0.4 mg/dL (0.2-1.0) Aspartate Amino Transf (AST/SGOT) 245 U/L (15-37) Alanine Aminotransferase (ALT/SGPT) 137 U/L (14-59) Alkaline Phosphatase 150 U/L (46-116) Total Protein 4.7 g/dL (6.4-8.2) Albumin 1.6 g/dL (3.4-5.0) Albumin/Globulin Ratio 0.5 (1.0-1.7) Glucose (Fingerstick) 67 mg/dL (70-99) 88 mg/dL (70-99) Microbiology 01/27/21 Blood Culture - Final, Complete Medications Current Medications Fentanyl Citrate (Fentanyl 2ml Vial) 75 mcg 1X ONCE IVP Last administered on 01/16/21at 08:31; Start 01/16/21 at 08:00; Stop 01/16/21 at 08:05; Status DC Ziprasidone (Geodon Im) 20 mg 1X ONCE IM Last administered on 01/16/21at 08:08; Start 01/16/21 at 08:00; Stop 01/16/21 at 08:05; Status DC Lorazepam (Ativan Inj) 2 mg 1X ONCE IVP Last administered on 01/16/21at 08:45; Start 01/16/21 at 08:45; Stop 01/16/21 at 08:46; Status DC Hydralazine HCl (Apresoline Inj) 20 mg 1X ONCE IVP Last administered on 01/16/21at 09:04; Start 01/16/21 at 09:00; Stop 01/16/21 at 09:02; Status DC Lorazepam (Ativan Inj) 2 mg 1X ONCE IVP Last administered on 01/16/21at 09:40; Start 01/16/21 at 09:30; Stop 01/16/21 at 09:31; Status DC Labetalol HCl (Normodyne Iv Push) 10 mg 1X ONCE IVP Last administered on at 12:03; Start 01/16/21 at 11:00; Stop 01/16/21 at 11:01; Status DC Aspirin (Aspirin Rectal Supp) 300 mg 1X ONCE TX Last administered on 01/16/21at 12:05; Start 01/16/21 at 11:15; Stop 01/16/21 at 11:16; Status DC Ondansetron HCl (Zofran) 4 mg PRN Q8HRS PRN IVP NAUSEA/VOMITING; Start 01/16/21 at 11:30; Stop 01/17/21 at 11:29; Status DC Insulin Human Lispro (HumaLOG) 0-5 UNITS TIDWMEALS SQ ; Start 01/16/21 at 12:00 Dextrose (Dextrose 50%-Water Syringe) 12.5 gm PRN Q15MIN PRN IV SEE COMMENTS Last administered on 9/7/21at 15:42; Start 01/16/21 at 11:30 Lorazepam (Ativan Inj) 1 mg PRN Q4HRS PRN IVP ANXIETY / AGITATION Last administered on 02/07/21 23:11; Start 01/16/21 at 12:45 Hydralazine HCl (Apresoline Inj) 20 mg PRN Q4HRS PRN IVP ELEVATED BP, SEE COMMENTS Last administered on 01/16/21 13:30; Start 01/16/21 at 13:00 Nicardipine HCl 50 mg/Sodium Chloride 250 ml @ 25 mls/hr CONT PRN IV SEE I/O RECORD Last administered on 01/17/21 04:25; Start 01/16/21 at 14:00; Stop 01/17/21 at 16:08; Status DC Aspirin (Ecotrin) 81 mg DAILY PO Last administered on 02/10/21 08:29; Start 01/17/21 at 13:00 Atorvastatin Calcium (Lipitor) 80 mg HS PO Last administered on 02/10/21 21:18; Start 01/17/21 at 21:00 Carvedilol (Coreg) 12.5 mg BIDWMEALS PO Last administered on 02/10/21 16:39; Start 01/17/21 at 17:00 Clonidine HCl (Catapres) 0.2 mg BID PO Last administered on 01/23/21 09:26; Start 01/17/21 at 21:00; Stop 01/23/21 at 10:30; Status DC Clopidogrel Bisulfate (Plavix) 75 mg DAILY PO Last administered on 02/10/21 08:29; Start 01/17/21 at 13:00 EZETIMIBE (Zetia) 10 mg DAILY PO Last administered on 02/10/21 08:29; Start 01/17/21 at 13:00 Hydralazine HCl (Apresoline) 50 mg TID PO Last administered on 02/07/21 22:36; Start 01/17/21 at 14:00; Stop 02/08/21 at 10:21; Status DC Isosorbide Mononitrate (Imdur) 120 mg DAILY PO Last administered on 02/10/21 08:28; Start 01/17/21 at 13:00 Minoxidil (Loniten) 2.5 mg BID PO Last administered on 02/10/21at 21:19; Start 01/17/21 at 21:00 Acetaminophen (Tylenol) 650 mg PRN Q6HRS PRN PO MILD PAIN / TEMP > 100.3'F Last administered on 01/28/21at 16:08; Start 01/17/21 at 20:45 Acetaminophen/ Hydrocodone Bitart (Lortab 7.5/325) 1 tab PRN Q6HRS PRN PO MODERATE PAIN Last administered on 02/11/21 06:11; Start 01/17/21 at 20:45 Sodium Chloride 1,000 ml @ 1,000 mls/hr Q1H PRN IV hypotension; Start 01/18/21 at 11:30; Stop 01/18/21 at 17:29; Status DC Albumin Human 200 ml @ 200 mls/hr 1X PRN PRN IV Hypotension; Start 01/18/21 at 11:30; Stop 01/18/21 at 17:29; Status DC Sodium Chloride 1,000 ml @ 400 mls/hr Q2H30M PRN IV PATENCY; Start 01/18/21 at 11:30; Stop 01/18/21 at 23:29; Status DC Info (PHARMACY MONITORING -- do not chart) 1 each PRN DAILY PRN MC SEE COMMENTS; Start 01/18/21 at 11:30; Status UNV Info (PHARMACY MONITORING -- do not chart) 1 each PRN DAILY PRN MC SEE COMMENTS; Start 01/18/21 at 11:30; Status Cancel Fentanyl Citrate (Fentanyl 2ml Vial) 25 mcg PRN Q3HRS PRN IV PAIN Last administered on 01/21/21at 16:15; Start 01/18/21 at 14:00 Ondansetron HCl (Zofran Odt) 4 mg PRN Q6HRS PRN PO NAUSEA/VOMITING Last administered on 02/03/21 17:32; Start 01/19/21 at 09:30 Oxycodone HCl (Roxicodone) 10 mg PRN Q4HRS PRN PO SEVERE PAIN Last administered on 02/11/21 02:15; Start 01/19/21 at 17:30 Simethicone (Gas-X) 80 mg PRN TID PRN PO GAS / BLOATING Last administered on 01/21/21at 06:04; Start 01/19/21 at 21:15 Lorazepam (Ativan) 0.5 mg PRN Q6HRS PRN PO ANXIETY / AGITATION Last administered on 02/11/21at 02:15; Start 01/19/21 at 21:15 Pantoprazole Sodium (Protonix) 40 mg DAILYAC PO Last administered on 01/22/21at 09:37; Start 01/21/21 at 10:00; Stop 01/22/21 at 11:38; Status DC Sodium Chloride 1,000 ml @ 1,000 mls/hr Q1H PRN IV hypotension; Start 01/21/21 at 12:45; Stop 01/21/21 at 18:44; Status DC Albumin Human 200 ml @ 200 mls/hr 1X PRN PRN IV Hypotension; Start 01/21/21 at 12:45; Stop 01/21/21 at 18:44; Status DC Acetaminophen (Tylenol) 500 mg 1X PRN PRN PO MILD PAIN / TEMP > 100.3'F; Start 01/21/21 at 12:45; Stop 01/22/21 at 12:44; Status DC Diphenhydramine HCl (Benadryl) 25 mg 1X PRN PRN IV ITCHING; Start 01/21/21 at 12:45; Stop 01/22/21 at 12:44; Status DC Diphenhydramine HCl (Benadryl) 25 mg 1X PRN PRN IV ITCHING; Start 01/21/21 at 12:45; Stop 01/22/21 at 12:44; Status DC Sodium Chloride 1,000 ml @ 400 mls/hr Q2H30M PRN IV PATENCY; Start 01/21/21 at 12:45; Stop 01/22/21 at 00:44; Status DC Lidocaine HCl (Xylocaine-Mpf 1% 2ml Vial) 2 ml 1X PRN PRN INJ FOR DIALYSIS; Start 01/21/21 at 12:45; Stop 01/22/21 at 12:44; Status DC Info (PHARMACY MONITORING -- do not chart) 1 each PRN DAILY PRN MC SEE COMMENTS; Start 01/21/21 at 12:45; Status UNV Info (PHARMACY MONITORING -- do not chart) 1 each PRN DAILY PRN MC SEE COMMENTS; Start 01/21/21 at 12:45; Status Cancel Bisacodyl (Dulcolax Supp) 10 mg PRN DAILY PRN [place] CONSTIPATION; Start 01/21/21 at 19:30 Senna/Docusate Sodium (Senna Plus) 2 tab PRN BID PRN PO CONSTIPATION Last administered on 01/28/21at 20:32; Start 01/21/21 at 19:30; Stop 01/31/21 at 09:47; Status DC Calcium Carbonate/ Glycine (Tums) 500 mg PRN AFTMEALHC PRN PO INDIGESTION Last administered on 02/03/21at 17:32; Start 01/22/21 at 03:15 Metoclopramide HCl (Reglan Vial) 5 mg PRN Q6HRS PRN IVP NAUSEA/VOMITING; Start 01/22/21 at 11:45; Stop 01/24/21 at 09:22; Status DC Pantoprazole Sodium (PROTONIX VIAL for IV PUSH) 40 mg DAILYAC IVP ; Start 01/23/21 at 07:30; Stop 01/24/21 at 10:51; Status DC Sodium Chloride 1,000 ml @ 1,000 mls/hr Q1H PRN IV hypotension; Start 01/23/21 at 09:30; Stop 01/23/21 at 15:29; Status DC Albumin Human 200 ml @ 200 mls/hr 1X PRN PRN IV Hypotension; Start 01/23/21 at 09:30; Stop 01/23/21 at 15:29; Status DC Sodium Chloride 1,000 ml @ 400 mls/hr Q2H30M PRN IV PATENCY; Start 01/23/21 at 09:30; Stop 01/23/21 at 21:29; Status DC Lidocaine HCl (Xylocaine-Mpf 1% 2ml Vial) 2 ml 1X PRN PRN INJ FOR DIALYSIS; Start 01/23/21 at 09:30; Stop 01/24/21 at 09:29; Status DC Info (PHARMACY MONITORING -- do not chart) 1 each PRN DAILY PRN MC SEE COMMENTS; Start 01/23/21 at 09:30; Status UNV Info (PHARMACY MONITORING -- do not chart) 1 each PRN DAILY PRN MC SEE COMMENTS; Start 01/23/21 at 09:30; Stop 01/27/21 at 10:34; Status DC Clonidine HCl (Catapres Tts-3) 1 patch WEEKLY TD Last administered on 02/06/21at 18:19; Start 01/23/21 at 09:00; Stop 02/08/21 at 10:21; Status DC Quetiapine Fumarate (SEROquel) 12.5 mg [id number] PO Last administered on 01/23/21at 18:14; Start 01/23/21 at 11:00; Stop 01/24/21 at 09:17; Status DC Quetiapine Fumarate (SEROquel) 25 mg QHS PO Last administered on 01/30/21at 22:52; Start 01/24/21 at 21:00; Stop 01/31/21 at 13:26; Status DC Quetiapine Fumarate (SEROquel) 12.5 mg [id number] PO Last administered on 01/30/21at 09:34; Start 01/24/21 at 09:30; Stop 01/30/21 at 10:08; Status DC Metoclopramide HCl (Reglan Oral Solution) 5 mg TIDACHC PO Last administered on 02/07/21at 22:34; Start 01/24/21 at 09:30; Stop 02/08/21 at 10:21; Status DC Pantoprazole Sodium (Protonix) 40 mg DAILYAC PO ; Start 01/25/21 at 07:30; Stop 01/28/21 at 10:18; Status DC Sodium Chloride 1,000 ml @ 1,000 mls/hr Q1H PRN IV hypotension; Start 01/25/21 at 14:15; Stop 01/25/21 at 20:14; Status DC Albumin Human 200 ml @ 200 mls/hr 1X PRN PRN IV Hypotension; Start 01/25/21 at 14:15; Stop 01/25/21 at 20:14; Status DC Sodium Chloride 1,000 ml @ 400 mls/hr Q2H30M PRN IV PATENCY; Start 01/25/21 at 14:15; Stop 01/26/21 at 02:14; Status DC Info (PHARMACY MONITORING -- do not chart) 1 each PRN DAILY PRN MC SEE COMMENTS; Start 01/25/21 at 14:15; Status Cancel Info (PHARMACY MONITORING -- do not chart) 1 each PRN DAILY PRN MC SEE COMMENTS; Start 01/25/21 at 14:15; Status Cancel Piperacillin Sod/ Tazobactam Sod 2.25 gm/Sodium Chloride 50 ml @ 100 mls/hr Q8HRS IV Last administered on 01/28/21at 05:59; Start 01/27/21 at 14:00; Stop 01/28/21 at 10:44; Status DC Vancomycin HCl (Vanco Per Pharmacy) 1 each PRN DAILY PRN MC SEE COMMENTS Last administered on 02/03/21at 07:55; Start 01/27/21 at 10:30; Stop 02/03/21 at 09:57; Status DC Info (PHARMACY MONITORING -- do not chart) 1 each PRN DAILY PRN MC SEE COMMENTS; Start 01/27/21 at 10:30; Status Cancel Vancomycin HCl 1.5 gm/Sodium Chloride 500 ml @ 250 mls/hr 1X ONCE IV Last administered on 01/27/21at 17:47; Start 01/27/21 at 11:00; Stop 01/27/21 at 12:59; Status DC Vancomycin HCl (Vancomycin Random Level) 1 each 1X ONCE MC ; Start 01/29/21 at 05:00; Stop 01/29/21 at 05:01; Status DC Amino Acids/ Electrolytes/ Dextrose 1,000 ml @ 80 mls/hr [id number] IV Last administered on 02/11/21at 03:07; Start 01/27/21 at 18:45 Sodium Chloride 1,000 ml @ 1,000 mls/hr Q1H PRN IV hypotension; Start 01/28/21 at 07:30; Stop 01/28/21 at 13:29; Status DC Albumin Human 200 ml @ 200 mls/hr 1X PRN PRN IV Hypotension; Start 01/28/21 at 07:30; Stop 01/28/21 at 13:29; Status DC Sodium Chloride 1,000 ml @ 400 mls/hr Q2H30M PRN IV PATENCY; Start 01/28/21 at 07:30; Stop 01/28/21 at 19:29; Status DC Info (PHARMACY MONITORING -- do not chart) 1 each PRN DAILY PRN MC SEE COMMENTS; Start 01/28/21 at 07:30; Status UNV Info (PHARMACY MONITORING -- do not chart) 1 each PRN DAILY PRN MC SEE COMMENTS; Start 01/28/21 at 07:30; Status UNV Lansoprazole (Prevacid) 30 mg DAILY PO Last administered on 02/10/21at 08:29; Start 01/29/21 at 09:00; Stop 02/11/21 at 15:47; Status DC Cefepime HCl (Maxipime) 2 gm TuTh IVP ; Start 01/28/21 at 16:00; Stop 01/30/21 at 10:40; Status DC Cefepime HCl (Maxipime) 3 gm Sa IVP ; Start 02/01/21 at 16:00; Stop 01/30/21 at 10:40; Status DC Vancomycin HCl 500 mg/Sodium Chloride 100 ml @ 100 mls/hr QTUTHSA IV Last administered on 01/30/21at 18:05; Start 01/30/21 at 16:00; Stop 02/03/21 at 09:57; Status DC Lactobacillus Rhamnosus (Culturelle) 1 cap BID PO Last administered on 02/10/21at 21:18; Start 01/29/21 at 21:00 Quetiapine Fumarate (SEROquel) 25 mg [id number] PO Last administered on 01/30/21at 18:04; Start 01/30/21 at 16:00; Stop 01/31/21 at 13:26; Status DC Bisacodyl (Dulcolax Supp) 10 mg 1X ONCE [place] Last administered on 01/30/21at 11:12; Start 01/30/21 at 10:15; Stop 01/30/21 at 10:16; Status DC Piperacillin Sod/ Tazobactam Sod 2.25 gm/Sodium Chloride 50 ml @ 100 mls/hr Q8HRS IV Last administered on 02/03/21at 05:35; Start 01/30/21 at 14:00; Stop 02/03/21 at 09:57; Status DC Sodium Chloride 1,000 ml @ 1,000 mls/hr Q1H PRN IV hypotension; Start 01/30/21 at 13:00; Stop 01/30/21 at 18:59; Status DC Albumin Human 200 ml @ 200 mls/hr 1X PRN PRN IV Hypotension; Start 01/30/21 at 13:00; Stop 01/30/21 at 18:59; Status DC Acetaminophen (Tylenol) 500 mg 1X PRN PRN PO MILD PAIN / TEMP > 100.3'F; Start 01/30/21 at 13:00; Stop 01/31/21 at 12:59; Status DC Diphenhydramine HCl (Benadryl) 25 mg 1X PRN PRN IV ITCHING; Start 01/30/21 at 13:00; Stop 01/31/21 at 12:59; Status DC Diphenhydramine HCl (Benadryl) 25 mg 1X PRN PRN IV ITCHING; Start 01/30/21 at 13:00; Stop 01/31/21 at 12:59; Status DC Sodium Chloride 1,000 ml @ 400 mls/hr Q2H30M PRN IV PATENCY; Start 01/30/21 at 13:00; Stop 01/31/21 at 00:59; Status DC Lidocaine HCl (Xylocaine-Mpf 1% 2ml Vial) 2 ml 1X PRN PRN INJ FOR DIALYSIS; Start 01/30/21 at 13:00; Stop 01/31/21 at 12:59; Status DC Info (PHARMACY MONITORING -- do not chart) 1 each PRN DAILY PRN MC SEE COMMENTS; Start 01/30/21 at 13:00; Status UNV Info (PHARMACY MONITORING -- do not chart) 1 each PRN DAILY PRN MC SEE COMMENTS; Start 01/30/21 at 13:00; Status UNV Senna/Docusate Sodium (Senna Plus) 2 tab [id number] PRN PO CONSTIPATION Last administered on 02/02/21at 09:46; Start 01/31/21 at 09:45 Sodium Chloride 500 ml @ 0 mls/hr 1X ONCE IV Last administered on 01/31/21at 13:43; Start 01/31/21 at 13:30; Stop 01/31/21 at 13:31; Status DC Quetiapine Fumarate (SEROquel) 12.5 mg [id number] PO Last administered on 02/10/21at 08:30; Start 02/01/21 at 16:00 Quetiapine Fumarate (SEROquel) 25 mg QHS PO Last administered on 02/10/21at 21:18; Start 02/01/21 at 21:00 Bisacodyl (Dulcolax Supp) 10 mg 1X ONCE TX Last administered on 02/01/21at 11:12; Start 02/01/21 at 09:45; Stop 02/01/21 at 09:50; Status DC Diphenhydramine HCl (Benadryl) 25 mg 1X PRN PRN IV ITCHING Last administered on 02/01/21at 14:49; Start 02/01/21 at 14:30; Stop 02/02/21 at 14:29; Status DC Diphenhydramine HCl (Benadryl) 25 mg 1X PRN PRN IV ITCHING; Start 02/01/21 at 14:30; Stop 02/02/21 at 14:29; Status DC Info (PHARMACY MONITORING -- do not chart) 1 each PRN DAILY PRN MC SEE COMMENTS; Start 02/01/21 at 14:30; Stop 02/05/21 at 15:18; Status DC Amoxicillin/ Clavulanate Potassium (Augmentin 500/ 125mg) 1 tab DAILY PO Last administered on 02/05/21at 07:17; Start 02/04/21 at 14:00; Stop 02/05/21 at 11:21; Status DC Sodium Chloride 1,000 ml @ 1,000 mls/hr Q1H PRN IV hypotension; Start 02/04/21 at 19:00; Stop 02/05/21 at 00:59; Status DC Albumin Human 200 ml @ 200 mls/hr 1X PRN PRN IV Hypotension; Start 02/04/21 at 19:00; Stop 02/05/21 at 00:59; Status DC Acetaminophen (Tylenol) 500 mg 1X PRN PRN PO MILD PAIN / TEMP > 100.3'F; Start 02/04/21 at 19:00; Stop 02/05/21 at 18:59; Status DC Diphenhydramine HCl (Benadryl) 25 mg 1X PRN PRN IV ITCHING; Start 02/04/21 at 19:00; Stop 02/05/21 at 18:59; Status DC Diphenhydramine HCl (Benadryl) 25 mg 1X PRN PRN IV ITCHING; Start 02/04/21 at 19:00; Stop 02/05/21 at 18:59; Status DC Sodium Chloride 1,000 ml @ 400 mls/hr Q2H30M PRN IV PATENCY; Start 02/04/21 at 19:00; Stop 02/05/21 at 06:59; Status DC Info (PHARMACY MONITORING -- do not chart) 1 each PRN DAILY PRN MC SEE COMMENTS; Start 02/04/21 at 19:00 Info (PHARMACY MONITORING -- do not chart) 1 each PRN DAILY PRN MC SEE COMMENTS; Start 02/04/21 at 19:00; Status UNV Mirtazapine (Remeron) 7.5 mg QHS PO Last administered on 02/10/21at 21:19; Start 02/05/21 at 21:00 Sodium Chloride 1,000 ml @ 1,000 mls/hr Q1H PRN IV hypotension; Start 02/06/21 at 08:30; Stop 02/06/21 at 14:29; Status DC Sodium Chloride 1,000 ml @ 400 mls/hr Q2H30M PRN IV PATENCY; Start 02/06/21 at 08:30; Stop 02/06/21 at 20:29; Status DC Info (PHARMACY MONITORING -- do not chart) 1 each PRN DAILY PRN MC SEE COMMENTS; Start 02/06/21 at 08:30; Status UNV Sodium Chloride 1,000 ml @ 1,000 mls/hr Q1H PRN IV hypotension; Start 02/08/21 at 07:30; Stop 02/08/21 at 13:29; Status DC Sodium Chloride 1,000 ml @ 400 mls/hr Q2H30M PRN IV PATENCY; Start 02/08/21 at 07:30; Stop 02/08/21 at 19:29; Status DC Info (PHARMACY MONITORING -- do not chart) 1 each PRN DAILY PRN MC SEE COMMENTS; Start 02/08/21 at 07:30; Status UNV Info (PHARMACY MONITORING -- do not chart) 1 each PRN DAILY PRN MC SEE COMMENTS; Start 02/08/21 at 07:30; Status UNV Metoclopramide HCl (Reglan Oral Solution) 5 mg BIDAC PO Last administered on 02/10/21at 16:39; Start 02/08/21 at 11:30 Clonidine HCl (Catapres Tts-1) 1 patch WEEKLY TD Last administered on 02/08/21at 16:08; Start 02/08/21 at 11:00 Info (PHARMACY MONITORING -- do not chart) 1 each PRN DAILY PRN MC SEE FABIÁN TS; Start 02/11/21 at 09:45 Info (PHARMACY MONITORING -- do not chart) 1 each PRN DAILY PRN MC SEE COMMENTS; Start 02/11/21 at 09:45; Status UNV Norepinephrine Bitartrate 8 mg/ Dextrose 258 ml @ 13.352 mls/ hr CONT PRN IV PER PROTOCOL Last administered on 02/11/21at 15:14; Start 02/11/21 at 13:00 Dopamine HCl/ Dextrose 250 ml @ As Directed STK-MED ONCE IV ; Start 02/11/21 at 13:00; Stop 02/11/21 at 13:00; Status DC Fentanyl Citrate (Fentanyl 2ml Vial) 50 mcg PRN Q1HR PRN IV SEE COMMENTS; Start 02/11/21 at 13:45 Midazolam HCl (Versed) 5 mg PRN Q30MIN PRN IV SEE COMMENTS. Last administered on 02/11/21at 15:20; Start 02/11/21 at 13:45 Dopamine HCl/ Dextrose 250 ml @ 12.938 mls/ hr CONT PRN IV SEE I/O RECORD Last administered on 02/11/21at 13:45; Start 02/11/21 at 15:30 Pantoprazole Sodium (PROTONIX VIAL for IV PUSH) 40 mg BID IVP ; Start 02/11/21 at 21:00 Active Scripts Active Lactulose 20 Gm/30 Ml Solution 20 Gm PO BID 5 Days Culturelle (Lactobacillus Rhamnosus Gg) 1 Each Cap.sprink 1 Cap PO BID Metoclopramide Hcl 5 Mg/1 Ml Vial 5 Mg IV PRN Q6HRS PRN Metoclopramide Hcl 5 Mg/1 Ml Vial 5 Mg IV [id number] Ondansetron Hcl 4 Mg/2 Ml Vial (Ondansetron Hcl/Pf) 4 Mg/2 Ml Vial 4 Mg IV PRN Q6HRS PRN Buspirone Hcl 5 Mg Tablet 5 Mg PO TID Quetiapine Fumarate 25 Mg Tablet 12.5 Mg PO PRN Q6HRS PRN Quetiapine Fumarate 25 Mg Tablet 25 Mg PO QHS Sertraline Hcl 50 Mg Tablet 50 Mg PO DAILY Hydrocodone-Apap 7.5-325 (Hydrocodone Bit/Acetaminophen) 1 Each Tablet 1 Tab PO PRN Q8HRS PRN Fentanyl 0.05 Mg/Ml Vial (Fentanyl Citrate/Pf) 50 Mcg/1 Ml Vial 50 Mcg IV PRN Q4HRS PRN [Darbepoetin Ty In Polysorbat] 60 MCG/0.3 ML Disp.syrin 60 Mcg SQ WEEKLYHS Zyvox (Linezolid) 600 Mg Tablet 600 Mg PO BID Vitamin D3 (Cholecalciferol (Vitamin D3)) 1,000 Unit Tablet 1 Tab PO DAILY [Calcium Acetate] 667 MG Capsule 1,334 Mg PO TIDWMEALS Mapap (Acetaminophen) 500 Mg Tablet 1,000 Mg PO TID Carvedilol (Carvedilol) 12.5 Mg Tablet 12.5 Mg PO BIDWMEALS Minoxidil 2.5 Mg Tablet 2.5 Mg PO BID Isosorbide Mononitrate Er (Isosorbide Mononitrate) 30 Mg Tab.er.24h 120 Mg PO DAILY Montelukast Sodium Tablet (Montelukast Sodium) 10 Mg Tablet 10 Mg PO QHS Polyethylene Glycol 3350 2,500 Gm Powder 17 Gm PO DAILY Novolog Flexpen (Insulin Aspart) 100 Unit/1 Ml Insuln.pen 0 Units SQ TIDAC Take sub q tid ac: BS 151-200=2 unit, 201-250=3 unit, [id number], BS 301-350=6 unit, BS 351-400 =8 unit. BS>401 call MD Renetta Busch 10,000 Units Capsule (Lipase/Protease/Amylase) 1 Each Capsule. 2 Cap PO TIDWMEALS TAke 2 cap tid with meals Nephro-Donny Tablet (Folic Acid/Vitamin B Comp W-C) 0.8 Mg Tablet 1 Tab PO DAILY Benadryl (Diphenhydramine Hcl) 25 Mg Capsule 25 Mg PO PRN Q6HRS PRN Reported Lactulose 10 Gm Packet 10 Gm PO Q6HRS Lidocaine 15 Gm Cream..g. 1 Karma TP TID PRN 30 Days Isosorbide Mononitrate Er (Isosorbide Mononitrate) 60 Mg Tab.er.24h 1 Tab PO DAILY Vitamin A 2,400 Mcg Capsule 1,250 Mcg PO WEEKLY Hydrocodone-Apap 10-325 (Hydrocodone Bit/Acetaminophen) 1 Tab Tablet 1 Tab PO PRN Q6HRS PRN Ultram (Tramadol Hcl) 50 Mg Tablet 1 Tab PO BID MDD 2 Tablet(s) 30 Days Hydralazine Hcl 50 Mg Tablet 1 Tab PO TID Acetaminophen 325 Mg Tablet 2 Tab PO Q6HRS PRN 30 Days Glucose Gel (Dextrose) 38 Gm Gel..gram. 15 Gm PO PRN Sertraline Hcl 100 Mg Tablet 100 Mg PO DAILY Glucagon Emergency Kit (Glucagon,Human Recombinant) 1 Mg Kit 1 Mg IM PRN Senna Plus Tablet (Sennosides/Docusate Sodium) 1 Each Tablet 2 Tab PO QHS 14 Days Zetia (Ezetimibe) 10 Mg Tablet 1 Tab PO DAILY 30 Days Renvela (Sevelamer Carbonate) 800 Mg Tablet 800 Mg PO TIDWMEALS Escitalopram Oxalate 10 Mg Tablet 1 Tab PO DAILY Lyrica (Pregabalin) 50 Mg Capsule 25 Mg PO QHS [creon] 1 Cap PO TIDAC Oxycodone HCl 5 Mg Tablet 5 Mg PO Q8HRS PRN [zenpep] 10 Mg PO TIDAC Clonidine Hcl 0.2 Mg Tablet 0.2 Mg PO BID Zofran (Ondansetron Hcl) 4 Mg Tablet 1 Tab PO Q4HRS PRN Sensipar (Cinacalcet Hcl) 30 Mg Tablet 1 Tab PO DAILY 30 Days Mirtazapine 15 Mg Tablet 1 Tab PO QHS Atorvastatin Calcium 40 Mg Tablet 80 Mg PO HS Minoxidil 2.5 Mg Tablet 2.5 Mg PO DAILY Amlodipine Besylate 10 Mg Tablet 10 Mg PO DAILY Lidocaine PATCH (Lidocaine) 1 Each Adh..patch 1 Each TP DAILY REMOVE AFTER 12 HOURS Proair Hfa Inhaler (Albuterol Sulfate) 8.5 Gm Hfa.aer.ad 2 Puff INH PRN Q6HRS PRN Nitrostat (Nitroglycerin) 0.4 Mg Tab.subl 0.4 Mg SL PRN Q5MIN PRN Plavix (Clopidogrel Bisulfate) 75 Mg Tablet 1 Tab PO DAILY Zoloft (Sertraline Hcl) 100 Mg Tablet 1 Tab PO DAILY Pantoprazole Sodium (Pantoprazole Sodium) 40 Mg Tablet. 1 Tab PO DAILY Losartan Potassium 100 Mg Tablet 100 Mg PO DAILY Aspir 81 (Aspirin) 81 Mg Tablet.dr 81 Mg PO DAILY Vitals/I & O Vital Sign - Last 24 Hours 02/10/21 02/10/21 02/10/21 02/10/21 16:39 19:00 20:19 21:19 Temp 98.5 98.5 Pulse 65 68 68 Resp 18 B/P (MAP) 139/45 134/53 (80) 134/53 Pulse Ox 96 O2 Delivery Room Air Room Air 9/6/21 9/6/21 9/6/21 9/7/21 21:19 22:36 23:00 02:15 Temp 98.4 98.4 Pulse 71 Resp 18 18 18 18 B/P (MAP) 131/36 (67) Pulse Ox 96 96 97 97 O2 Delivery Room Air Room Air Room Air Room Air 02/11/21 02/11/21 02/11/21 02/11/21 03:00 03:05 06:11 06:44 Temp 98.7 98.7 Pulse 72 Resp 18 18 18 18 B/P (MAP) 143/46 (78) Pulse Ox 95 97 97 97 O2 Delivery Room Air Room Air Room Air Room Air 02/11/21 02/11/21 02/11/21 02/11/21 07:00 08:00 12:45 12:55 Temp 100.1 100.1 Pulse 68 106 Resp 18 16 B/P (MAP) 137/66 (89) 196/93 (127) Pulse Ox 96 100 O2 Delivery Room Air Room Air Ventilator Ventilator 02/11/21 02/11/21 02/11/21 02/11/21 13:15 13:35 13:55 14:00 Temp 98.0 98.0 Pulse 52 48 80 Resp 16 12 12 12 B/P (MAP) 155/57 (89) 96/45 (62) 182/75 (110) 143/64 (90) Pulse Ox 94 95 100 O2 Delivery Ventilator Ventilator Ventilator Ventilator 02/11/21 02/11/21 02/11/21 02/11/21 14:15 14:38 15:01 15:08 Pulse 72 72 71 71 Resp 12 12 12 20 B/P (MAP) 139/56 (83) 151/58 (89) 142/63 (89) 138/60 (86) Pulse Ox 100 96 99 100 O2 Delivery Ventilator Ventilator Ventilator 02/11/21 02/11/21 02/11/21 02/11/21 15:34 15:37 15:54 15:57 Pulse 73 74 78 78 Resp 16 20 20 24 B/P (MAP) 115/50 (71) 112/50 (70) 139/60 (86) 131/60 (83) Pulse Ox 100 100 100 100 O2 Delivery Ventilator Ventilator Ventilator Ventilator 02/11/21 16:04 Pulse 76 Resp 20 B/P (MAP) 126/56 (79) Pulse Ox 100 O2 Delivery Ventilator Intake and Output 02/10/21 02/10/21 02/11/21 15:00 23:00 07:00 Intake Total 25 ml 0 ml 100 ml Balance 25 ml 0 ml 100 ml Justicifation of Admission Dx: Justifications for Admission: Justification of Admission Dx: N/A MARINA REYNOSO MD Feb 11, 2021 16:20
[2021-02-11] MEDS ORDERED: MIDAZOLAM 100mg/100ml NS BAG 100 ML IV PRN (17:00)
[2021-02-11] MEDS ORDERED: PIP/TAZO PER PHARMACY MC PRN (17:15)
--- NOTE | 2021-02-11 17:34 | PDOC ---
IM PROGRESS NOTES- Subjective Subjective Patient vomited during dialysis and likely aspirated. She was coded at that time and then she was brought downstairs to the emergency room as there were no ICU beds available where she was coded x2. Potassium was 5.4 and hemoglobin was 6.1. Emesis was coffee-ground. Objective Vitals/I&O Vital Signs Date Time Temp Pulse Resp B/P (MAP) Pulse Ox O2 Delivery O2 Flow Rate FiO2 02/11/21 16:08 100 Ventilator 02/11/21 16:04 76 20 126/56 (79) 02/11/21 13:55 98.0 98.0 I & O 02/10/21 02/10/21 02/11/21 15:00 23:00 07:00 Intake Total 25 ml 0 ml 100 ml Balance 25 ml 0 ml 100 ml Physical Exam Physical Exam General Appearance -patient is sedated on mechanical ventilation. She is on multiple drips. Chest - decreased breath sounds at bases Heart - S1 and S2 normal Abdomen - soft, non tender, bowel sounds present Neurological -on mechanical ventilation sedated Musculoskeletal - generalized weakness Extremities - no edema Labs Laboratory Tests Test 02/10/21 20:18 02/11/21 06:30 02/11/21 07:27 02/11/21 12:57 Glucose (Fingerstick) 121 mg/dL (70-99) H 106 mg/dL (70-99) H White Blood Count 9.7 x10^3/uL (4.0-11.0) Red Blood Count 2.29 x10^6/uL (3.50-5.40) L Hemoglobin 7.1 g/dL (12.0-15.5) L Hematocrit 20.9 % (36.0-47.0) *L Mean Corpuscular Volume 91 fL (79-100) Mean Corpuscular Hemoglobin 31 pg (25-35) Mean Corpuscular Hemoglobin Concent 34 g/dL (31-37) Red Cell Distribution Width 15.3 % (11.5-14.5) H Platelet Count 198 x10^3/uL (140-400) Neutrophils (%) (Auto) 88 % (31-73) H Lymphocytes (%) (Auto) 6 % (24-48) L Monocytes (%) (Auto) 6 % (0-9) Eosinophils (%) (Auto) 0 % (0-3) Basophils (%) (Auto) 0 % (0-3) Neutrophils # (Auto) 8.5 x10^3/uL (1.8-7.7) H Lymphocytes # (Auto) 0.5 x10^3/uL (1.0-4.8) L Monocytes # (Auto) 0.6 x10^3/uL (0.0-1.1) Eosinophils # (Auto) 0.0 x10^3/uL (0.0-0.7) Basophils # (Auto) 0.0 x10^3/uL (0.0-0.2) Sodium Level 130 mmol/L (136-145) L Potassium Level 7.4 mmol/L (3.5-5.1) *H Chloride Level 93 mmol/L (98-107) L Carbon Dioxide Level 27 mmol/L (21-32) Anion Gap 10 (6-14) Blood Urea Nitrogen 82 mg/dL (7-20) H Creatinine 6.8 mg/dL (0.6-1.0) H Estimated GFR (Cockcroft-Gault) 7.5 Glucose Level 105 mg/dL (70-99) H Calcium Level 8.7 mg/dL (8.5-10.1) O2 Saturation 98 % (92-99) Arterial Blood pH 7.64 (7.35-7.45) *H Arterial Blood pCO2 at Patient Temp 21 mmHg (35-46) L Arterial Blood pO2 at Patient Temp 222 mmHg (75-108) H Arterial Blood HCO3 22 mmol/L (21-28) Arterial Blood Base Excess 1 mmol/L (-3-3) FiO2 100/vent Test 02/11/21 13:01 02/11/21 15:28 02/11/21 15:41 White Blood Count 8.6 x10^3/uL (4.0-11.0) Red Blood Count 1.99 x10^6/uL (3.50-5.40) L Hemoglobin 6.1 g/dL (12.0-15.5) *L Hematocrit 18.0 % (36.0-47.0) *L Mean Corpuscular Volume 91 fL (79-100) Mean Corpuscular Hemoglobin 30 pg (25-35) Mean Corpuscular Hemoglobin Concent 34 g/dL (31-37) Red Cell Distribution Width 15.2 % (11.5-14.5) H Platelet Count 142 x10^3/uL (140-400) Neutrophils (%) (Auto) 89 % (31-73) H Lymphocytes (%) (Auto) 5 % (24-48) L Monocytes (%) (Auto) 6 % (0-9) Eosinophils (%) (Auto) 0 % (0-3) Basophils (%) (Auto) 1 % (0-3) Neutrophils # (Auto) 7.7 x10^3/uL (1.8-7.7) Lymphocytes # (Auto) 0.4 x10^3/uL (1.0-4.8) L Monocytes # (Auto) 0.5 x10^3/uL (0.0-1.1) Eosinophils # (Auto) 0.0 x10^3/uL (0.0-0.7) Basophils # (Auto) 0.0 x10^3/uL (0.0-0.2) Sodium Level 137 mmol/L (136-145) Potassium Level 5.4 mmol/L (3.5-5.1) #H Chloride Level 100 mmol/L (98-107) Carbon Dioxide Level 22 mmol/L (21-32) Anion Gap 15 (6-14) H Blood Urea Nitrogen 62 mg/dL (7-20) H Creatinine 4.8 mg/dL (0.6-1.0) H Estimated GFR (Cockcroft-Gault) 11.3 BUN/Creatinine Ratio 13 (6-20) Glucose Level 83 mg/dL (70-99) Calcium Level 7.3 mg/dL (8.5-10.1) L Total Bilirubin 0.4 mg/dL (0.2-1.0) Aspartate Amino Transferase (AST) 245 U/L (15-37) H Alanine Aminotransferase (ALT) 137 U/L (14-59) H Alkaline Phosphatase 150 U/L (46-116) H Total Protein 4.7 g/dL (6.4-8.2) L Albumin 1.6 g/dL (3.4-5.0) L Albumin/Globulin Ratio 0.5 (1.0-1.7) L Glucose (Fingerstick) 67 mg/dL (70-99) L 88 mg/dL (70-99) Laboratory Tests 02/11/21 06:30 02/11/21 13:01 Laboratory Tests 02/11/21 06:30 02/11/21 13:01 Meds Current Medications Medications (Trade) Dose Ordered Sig/Srinath Route PRN Reason Start Time Stop Time Status Last Admin Dose Admin Norepinephrine Bitartrate 8 mg/ Dextrose 258 ml @ 13.352 mls/ hr CONT PRN IV PER PROTOCOL 02/11/21 13:00 02/11/21 15:14 Midazolam HCl (Versed) 5 mg PRN Q30MIN PRN IV SEE COMMENTS. 02/11/21 13:45 02/11/21 15:20 Dopamine HCl/ Dextrose 250 ml @ 12.938 mls/ hr CONT PRN IV SEE I/O RECORD 02/11/21 15:30 02/11/21 13:45 Assessment Assessment 1. Acute metabolic encephalopathy. Continue to give her lorazepam as needed. Monitor closely in the Intensive Care Unit. Consult Dr. Martinez for neurology evaluation and management. Likely due to hypertensive crisis.Mental status is improving. 2. Acute hypertensive crisis. Patient was initially treated with Cardene IV drip. Consult Dr. Leahy for cardiology evaluation and management. 3. Elevated troponin. This may be due to demand ischemia and also end-stage renal disease may be contributing. 4. End-stage renal disease, on hemodialysis. 5. Coronary artery disease. 6. Diastolic congestive heart failure. 7. Physical deconditioning. 8. Asthma. 9. Gastroesophageal reflux disease. 10. Hyperlipidemia. 11. Severe pulmonary hypertension. 12. 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 13. History of depression. 14. 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 Monitor blood sugar. 15. History of secondary hyperparathyroidism. 16. Marijuana abuse Plan: COVID-19 infection. SARS-CoV-2 PCR test is positive. This may be also contributing to patient's poor appetite, body aches and confusion.I will also consult Dr. Ray Nino for Infectious Disease evaluation and management because of her fever of 103 degrees Fahrenheit. Her chest x-ray, urinalysis as well as SARS-CoV-2 antigen test is negative. Consult Dr. Nino for infectious disease evaluation and management. Patient is running low-grade fever. WBC count is 8.1. On IV Vancomycin. Cefepime has been changed to IV Zosyn. Bl c/s 06/09 Gram + cocci- ? contaminant. CT abd/pelvis 01/28/21 1. Small right pleural effusion and right greater than left posterior dependent and basilar atelectasis and possible superimposed pleural parenchymal scarring. There is no consolidated pneumonia. 2. Soft tissue stranding and small amount of soft tissue gas within the right axilla and base of the right neck. Correlate for recent instrumentation or catheterization. 3. Moderate colonic stool. 4. Mild bladder wall thickening. This may be due to underdistention or cystitis. Correlate with urinalysis. 5. Trace nonspecific pelvic free fluid and mild body wall edema. 6. Renal atrophy. US rt UE- negative for DVT. Acute metabolic encephalopathy-most likely due to COVID-19 infection and may be multifactorial.Slightly better. Increase Seroquel to 25 mg p.o. twice daily and 25 mg at bedtime. I will add mirtazapine at bedtime. Severe malnutrition-patient is not eating but also does not allow any IV fluids or IV access. I have encouraged her to drink Nepro. Rt arm swollen. Change IV to PICC line. She is on PPN. Patient has constipation and has stool on CT of the abdomen. Has abdominal pain also. Change senna S to 2 tablets daily. Prognosis of this patient is extremely poor due to her multiple medical problems. Hypotension - .BP low today. Apply hold parameters for BP meds as needed. Continue low-dose Seroquel. Constipation-not eating. Changed IV antibiotics to p.o. Augmentin. Patient is also refusing oral medications. D/w daughter Kerri -about patient's condition,treatment,options,prognosis on 02/11/21. Family wants to continue present care and hospice was also discussed with her. Because of her persistent agitation, encephalopathy, declining to eat and needing hemodialysis with agitation worse during dialysis at times and pulling on the catheters it would be appropriate to send her to a facility that can do in-house dialysis such as [facility] or [facility]. Consult LTACH. Patient does not qualify for LTAC. Looking for an in-house dialysis facility. D/w - yesterday. Due to her agitation and need for repeat HD on the same day frequently he recommends in house dialysis facility. Hyperkalemia with potassium of 7.4. Patient will need urgent dialysis. Potassium came down to 5.4 during dialysis. Fever etiology not clear. WBC count is normal. Reconsult infectious disease specialist. Check labs, chest x-ray. Discussed with Dr. Hernandez. CODE BLUE x3 due to bradycardia secondary to vomiting. Patient is intubated and then now finally transferred to intensive care unit. She is on mechanical ventilation and on multiple drips. I had multiple discussions with multiple family members including patient's daughter Kerri Ruiz and patient's brother Ronnie Ruiz. They are aware that her prognosis is extremely poor. Want to continue aggressive care at this time including blood transfusion. They would like to continue CPR as needed. Acute GI bleeding-change Prevacid to IV Protonix. Possible aspiration. Initial chest x-ray was clear. Repeat chest x-ray in a.m. Start IV Zosyn. Acute respiratory failure-continue mechanical ventilation. Consult Dr. Keane for pulmonary evaluation and management. Acute hypotension and cardiac arrhythmia-consult pediatric physician. Acute blood loss anemia.-Transfuse as needed to keep hemoglobin above 7. Discussed with Dr. Hernandez this afternoon. Critical care time 45 minutes. RENAL FAILURE: ESRD Plan Plan For more details regarding further plans, please refer to the orders. Justifications for Admission Other Justification GAURAV DANG MD Feb 11, 2021 17:34
[2021-02-11] MEDS: PIPERACILLIN/TAZOBACTAM 2.25 GM in IV NORMAL SALINE 50ML 50 ML IV SCH (19:40)
[2021-02-11] MEDS ORDERED: ATROPINE 1 MG/10 ML DISP.SYRINGE. ONE ×2 (20:57→21:00)
[2021-02-11] MEDS ORDERED: EPINEPHrine VIAL 5 MG in IV NORMAL SALINE 250ML 250 ML IV PRN (21:00)
[2021-02-11] MEDS ORDERED: PANTOPRAZOLE IV PUSH 40 MG VIAL. IVP SCH (21:00)
[2021-02-11] MEDS ORDERED: NOREPINEPHRINE VIAL 32 MG in IV D5W 250ML IV PRN (21:00)
[2021-02-11 21:40] LABS: HEMATOCRIT 26.8 % (36.0-47.0); HEMOGLOBIN 8.6 g/dL (12.0-15.5)
[2021-02-11] MEDS: MIRTAZAPINE 7.5 MG TABLET. PO SCH (21:53)
[2021-02-11] MEDS: ATORVASTATIN CALCIUM 40 MG TABLET. PO SCH (21:53)
--- NOTE | 2021-02-11 23:22 | NUR ---
At 2044 I entered patient's room and BP was 71/37 and HR was 54. Patient continued to jana down into 40s, epi push x1 given. Patient's Levophed was at 0.7 at that time and was increased per protocol until it reached 1 mcg/kg/min at 2144 and BP at this time was 119/48. Dopamine was also titrated per protocol starting at 2044 and was maxed out at 20 mcg/kg/min at 2114--BP was 78/33. During this time, the patient began to jana down again into the 60s and an Epi gtt was started at 0.1. H/H drawn during this time and result was stable hgb. I did not have to titrate up on epi gtt, but was able to titrate down on the Epi and Dopamine gtts (see spreadsheet for these titrations). I attempted to call patient's daughter (Maria Esther) multiple times but was unable to reach her. I was able to get ahold of the son (Sai) at 2139 to update him on his mom's condition. Sai stated he would get ahold of his sister and give me a call back. Patient's family called back at 2214, updated again on patient's condition. I also verified code status at this time. Maria Esther and Sai said they would discuss code status and get back to me tonight--will keep full code at this time. Patient's pupils at the beginning of the shift were equal at 3 mm but unreactive to light, and pupils were rechecked at 2229. R pupil is now blown and L pupil is 3 mm with no reaction to light. Addendum: 02/12/21 at 0019 by JOSE NEGRETE RN RN Spoke with Maria Esther again, informed more in depth on code status options. She spoke with her brother again and they decided to make the patient a DNR and withdraw care on the patient in the morning. Dr. Ng notified of family's wishes to change code status and order received, order verified with MELODY Monk. Family to call in AM to arrange comfort care details.
[2021-02-12] VITALS (7 sets, daily range): BP systolic 86–143; BP diastolic 52–76
[2021-02-12] MEDS: PIPERACILLIN/TAZOBACTAM 2.25 GM in IV NORMAL SALINE 50ML 50 ML IV SCH (00:32)
[2021-02-12] MEDS ORDERED: EPINEPHrine SYRINGE 1 MG/10 ML SYRINGE ONE (04:30)
[2021-02-12] MEDS ORDERED: SODIUM BICARB ADULT 8.4% 50 MEQ/50 ML DISP.SYRIN. ONE (04:30)
[2021-02-12] MEDS ORDERED: DEXTROSE 50% 25 GM / 50ML DISP.SYRIN. IV ONE (04:30)
[2021-02-12] MEDS ORDERED: MIDAZOLAM HCL/PF 5 MG/5 ML VIAL. ONE (04:30)
--- NOTE | 2021-02-12 05:32 | NUR ---
At 0450 patient's HR began to decline, O2 sats not reading, and BP not reading. Patient still had a pulse at this time. Epi was increased with no change in patient status. Patient continued to jana down and went into an idioventricular rhythm before going asystole. Patient at 0455. MTN notified of patient at 0515, Family notified of patient at 0500. Family going to come up to see patient, but are not wanting an autopsy. Dr. Ng notified of patient .
--- NOTE | 2021-02-12 09:36 | PDOC ---
PULMONARY PROGRESS NOTES DATE: 02/12/21 TIME: 09:35 Subjective Patient seen in the emergency department, She has had cardiopulmonary arrest has been resuscitated x2 Currently on assist control ventilation Vitals Vital Signs Date Time Temp Pulse Resp B/P (MAP) Pulse Ox O2 Delivery O2 Flow Rate FiO2 02/12/21 04:00 98.4 106 24 100/70 (80) 100 Ventilator 98.4 02/11/21 18:07 2.0 HEENT: Other Lungs: Crackles Cardiovascular: S1, S2 Abdomen: Soft Labs Laboratory Tests Test 02/10/21 10:58 02/10/21 16:18 02/10/21 20:18 02/11/21 06:30 Glucose (Fingerstick) 126 mg/dL (70-99) 117 mg/dL (70-99) 121 mg/dL (70-99) White Blood Count 9.7 x10^3/uL (4.0-11.0) Red Blood Count 2.29 x10^6/uL (3.50-5.40) Hemoglobin 7.1 g/dL (12.0-15.5) Hematocrit 20.9 % (36.0-47.0) Mean Corpuscular Volume 91 fL (79-100) Mean Corpuscular Hemoglobin 31 pg (25-35) Mean Corpuscular Hemoglobin Concent 34 g/dL (31-37) Red Cell Distribution Width 15.3 % (11.5-14.5) Platelet Count 198 x10^3/uL (140-400) Neutrophils (%) (Auto) 88 % (31-73) Lymphocytes (%) (Auto) 6 % (24-48) Monocytes (%) (Auto) 6 % (0-9) Eosinophils (%) (Auto) 0 % (0-3) Basophils (%) (Auto) 0 % (0-3) Neutrophils # (Auto) 8.5 x10^3/uL (1.8-7.7) Lymphocytes # (Auto) 0.5 x10^3/uL (1.0-4.8) Monocytes # (Auto) 0.6 x10^3/uL (0.0-1.1) Eosinophils # (Auto) 0.0 x10^3/uL (0.0-0.7) Basophils # (Auto) 0.0 x10^3/uL (0.0-0.2) Sodium Level 130 mmol/L (136-145) Potassium Level 7.4 mmol/L (3.5-5.1) Chloride Level 93 mmol/L (98-107) Carbon Dioxide Level 27 mmol/L (21-32) Anion Gap 10 (6-14) Blood Urea Nitrogen 82 mg/dL (7-20) Creatinine 6.8 mg/dL (0.6-1.0) Estimated GFR (Cockcroft-Gault) 7.5 Glucose Level 105 mg/dL (70-99) Calcium Level 8.7 mg/dL (8.5-10.1) Test 02/11/21 07:27 02/11/21 12:57 02/11/21 13:01 02/11/21 15:28 Glucose (Fingerstick) 106 mg/dL (70-99) 67 mg/dL (70-99) O2 Saturation 98 % (92-99) Arterial Blood pH 7.64 (7.35-7.45) Arterial Blood pCO2 at Patient Temp 21 mmHg (35-46) Arterial Blood pO2 at Patient Temp 222 mmHg (75-108) Arterial Blood HCO3 22 mmol/L (21-28) Arterial Blood Base Excess 1 mmol/L (-3-3) FiO2 100/vent White Blood Count 8.6 x10^3/uL (4.0-11.0) Red Blood Count 1.99 x10^6/uL (3.50-5.40) Hemoglobin 6.1 g/dL (12.0-15.5) Hematocrit 18.0 % (36.0-47.0) Mean Corpuscular Volume 91 fL (79-100) Mean Corpuscular Hemoglobin 30 pg (25-35) Mean Corpuscular Hemoglobin Concent 34 g/dL (31-37) Red Cell Distribution Width 15.2 % (11.5-14.5) Platelet Count 142 x10^3/uL (140-400) Neutrophils (%) (Auto) 89 % (31-73) Lymphocytes (%) (Auto) 5 % (24-48) Monocytes (%) (Auto) 6 % (0-9) Eosinophils (%) (Auto) 0 % (0-3) Basophils (%) (Auto) 1 % (0-3) Neutrophils # (Auto) 7.7 x10^3/uL (1.8-7.7) Lymphocytes # (Auto) 0.4 x10^3/uL (1.0-4.8) Monocytes # (Auto) 0.5 x10^3/uL (0.0-1.1) Eosinophils # (Auto) 0.0 x10^3/uL (0.0-0.7) Basophils # (Auto) 0.0 x10^3/uL (0.0-0.2) Sodium Level 137 mmol/L (136-145) Potassium Level 5.4 mmol/L (3.5-5.1) Chloride Level 100 mmol/L (98-107) Carbon Dioxide Level 22 mmol/L (21-32) Anion Gap 15 (6-14) Blood Urea Nitrogen 62 mg/dL (7-20) Creatinine 4.8 mg/dL (0.6-1.0) Estimated GFR (Cockcroft-Gault) 11.3 BUN/Creatinine Ratio 13 (6-20) Glucose Level 83 mg/dL (70-99) Calcium Level 7.3 mg/dL (8.5-10.1) Total Bilirubin 0.4 mg/dL (0.2-1.0) Aspartate Amino Transf (AST/SGOT) 245 U/L (15-37) Alanine Aminotransferase (ALT/SGPT) 137 U/L (14-59) Alkaline Phosphatase 150 U/L (46-116) Total Protein 4.7 g/dL (6.4-8.2) Albumin 1.6 g/dL (3.4-5.0) Albumin/Globulin Ratio 0.5 (1.0-1.7) Test 02/11/21 15:41 02/11/21 21:35 Glucose (Fingerstick) 88 mg/dL (70-99) Hemoglobin 8.6 g/dL (12.0-15.5) Hematocrit 26.8 % (36.0-47.0) Mean Corpuscular Hemoglobin Concent 32 g/dL (31-37) Laboratory Tests Test 02/11/21 12:57 02/11/21 13:01 02/11/21 15:28 02/11/21 15:41 O2 Saturation 98 % (92-99) Arterial Blood pH 7.64 (7.35-7.45) Arterial Blood pCO2 at Patient Temp 21 mmHg (35-46) Arterial Blood pO2 at Patient Temp 222 mmHg (75-108) Arterial Blood HCO3 22 mmol/L (21-28) Arterial Blood Base Excess 1 mmol/L (-3-3) FiO2 100/vent White Blood Count 8.6 x10^3/uL (4.0-11.0) Red Blood Count 1.99 x10^6/uL (3.50-5.40) Hemoglobin 6.1 g/dL (12.0-15.5) Hematocrit 18.0 % (36.0-47.0) Mean Corpuscular Volume 91 fL (79-100) Mean Corpuscular Hemoglobin 30 pg (25-35) Mean Corpuscular Hemoglobin Concent 34 g/dL (31-37) Red Cell Distribution Width 15.2 % (11.5-14.5) Platelet Count 142 x10^3/uL (140-400) Neutrophils (%) (Auto) 89 % (31-73) Lymphocytes (%) (Auto) 5 % (24-48) Monocytes (%) (Auto) 6 % (0-9) Eosinophils (%) (Auto) 0 % (0-3) Basophils (%) (Auto) 1 % (0-3) Neutrophils # (Auto) 7.7 x10^3/uL (1.8-7.7) Lymphocytes # (Auto) 0.4 x10^3/uL (1.0-4.8) Monocytes # (Auto) 0.5 x10^3/uL (0.0-1.1) Eosinophils # (Auto) 0.0 x10^3/uL (0.0-0.7) Basophils # (Auto) 0.0 x10^3/uL (0.0-0.2) Sodium Level 137 mmol/L (136-145) Potassium Level 5.4 mmol/L (3.5-5.1) Chloride Level 100 mmol/L (98-107) Carbon Dioxide Level 22 mmol/L (21-32) Anion Gap 15 (6-14) Blood Urea Nitrogen 62 mg/dL (7-20) Creatinine 4.8 mg/dL (0.6-1.0) Estimated GFR (Cockcroft-Gault) 11.3 BUN/Creatinine Ratio 13 (6-20) Glucose Level 83 mg/dL (70-99) Calcium Level 7.3 mg/dL (8.5-10.1) Total Bilirubin 0.4 mg/dL (0.2-1.0) Aspartate Amino Transf (AST/SGOT) 245 U/L (15-37) Alanine Aminotransferase (ALT/SGPT) 137 U/L (14-59) Alkaline Phosphatase 150 U/L (46-116) Total Protein 4.7 g/dL (6.4-8.2) Albumin 1.6 g/dL (3.4-5.0) Albumin/Globulin Ratio 0.5 (1.0-1.7) Glucose (Fingerstick) 67 mg/dL (70-99) 88 mg/dL (70-99) Test 02/11/21 21:35 Hemoglobin 8.6 g/dL (12.0-15.5) Hematocrit 26.8 % (36.0-47.0) Mean Corpuscular Hemoglobin Concent 32 g/dL (31-37) Medications Active Scripts Medications Dose Route/Sig Max Daily Dose Days Date Category Dose Instructions Lactulose 10 Gm Packet 10 Gm PO Q6HRS 01/16/21 Reported Lidocaine 15 Gm Cream..g. 1 Karma TP TID PRN 30 01/16/21 Reported Isosorbide Mononitrate Er (Isosorbide Mononitrate) 60 Mg Tab.er.24h 1 Tab PO DAILY 01/16/21 Reported Vitamin A 2,400 Mcg Capsule 1,250 Mcg PO WEEKLY 01/16/21 Reported Hydrocodone-Apap 10-325 (Hydrocodone Bit/Acetaminophen) 1 Tab Tablet 1 Tab PO PRN Q6HRS PRN 01/16/21 Reported Ultram (Tramadol Hcl) 50 Mg Tablet 1 Tab PO BID MDD 2 Tablet(s) 30 01/16/21 Reported Hydralazine Hcl 50 Mg Tablet 1 Tab PO TID 01/16/21 Reported Acetaminophen 325 Mg Tablet 2 Tab PO Q6HRS PRN 30 01/16/21 Reported Glucose Gel (Dextrose) 38 Gm Gel..gram. 15 Gm PO PRN 01/16/21 Reported Sertraline Hcl 100 Mg Tablet 100 Mg PO DAILY 01/16/21 Reported Glucagon Emergency Kit (Glucagon,Human Recombinant) 1 Mg Kit 1 Mg IM PRN 01/16/21 Reported Senna Plus Tablet (Sennosides/Docusate Sodium) 1 Each Tablet 2 Tab PO QHS 14 01/16/21 Reported Zetia (Ezetimibe) 10 Mg Tablet 1 Tab PO DAILY 30 01/16/21 Reported Renvela (Sevelamer Carbonate) 800 Mg Tablet 800 Mg PO TIDWMEALS 01/16/21 Reported Escitalopram Oxalate 10 Mg Tablet 1 Tab PO DAILY 01/16/21 Reported Lyrica (Pregabalin) 50 Mg Capsule 25 Mg PO QHS 01/16/21 Reported [creon] 1 Cap PO TIDAC 01/16/21 Reported Oxycodone HCl 5 Mg Tablet 5 Mg PO Q8HRS PRN 01/16/21 Reported [zenpep] 10 Mg PO TIDAC 01/16/21 Reported Clonidine Hcl 0.2 Mg Tablet 0.2 Mg PO BID 01/16/21 Reported Zofran (Ondansetron Hcl) 4 Mg Tablet 1 Tab PO Q4HRS PRN 01/16/21 Reported Sensipar (Cinacalcet Hcl) 30 Mg Tablet 1 Tab PO DAILY 30 01/16/21 Reported Mirtazapine 15 Mg Tablet 1 Tab PO QHS 01/16/21 Reported Atorvastatin Calcium 40 Mg Tablet 80 Mg PO HS 01/16/21 Reported Minoxidil 2.5 Mg Tablet 2.5 Mg PO DAILY 01/16/21 Reported Amlodipine Besylate 10 Mg Tablet 10 Mg PO DAILY 01/16/21 Reported Lidocaine PATCH (Lidocaine) 1 Each Adh..patch 1 Each TP DAILY 01/16/21 Reported REMOVE AFTER 12 HOURS Proair Hfa Inhaler (Albuterol Sulfate) 8.5 Gm Hfa.aer.ad 2 Puff INH PRN Q6HRS PRN 01/16/21 Reported Lactulose 20 Gm/30 Ml Solution 20 Gm PO BID 5 03/17/18 Rx Culturelle (Lactobacillus Rhamnosus Gg) 1 Each Cap.sprink 1 Cap PO BID 01/19/18 Rx Metoclopramide Hcl 5 Mg/1 Ml Vial 5 Mg IV PRN Q6HRS PRN 01/19/18 Rx Metoclopramide Hcl 5 Mg/1 Ml Vial 5 Mg IV [id number] 01/19/18 Rx Ondansetron Hcl 4 Mg/2 Ml Vial (Ondansetron Hcl/Pf) 4 Mg/2 Ml Vial 4 Mg IV PRN Q6HRS PRN 01/19/18 Rx Buspirone Hcl 5 Mg Tablet 5 Mg PO TID 01/19/18 Rx Quetiapine Fumarate 25 Mg Tablet 12.5 Mg PO PRN Q6HRS PRN 01/19/18 Rx Quetiapine Fumarate 25 Mg Tablet 25 Mg PO QHS 01/19/18 Rx Sertraline Hcl 50 Mg Tablet 50 Mg PO DAILY 01/19/18 Rx Hydrocodone-Apap 7.5-325 (Hydrocodone Bit/Acetaminophen) 1 Each Tablet 1 Tab PO PRN Q8HRS PRN 01/19/18 Rx Fentanyl 0.05 Mg/Ml Vial (Fentanyl Citrate/Pf) 50 Mcg/1 Ml Vial 50 Mcg IV PRN Q4HRS PRN 01/19/18 Rx [Darbepoetin Ty In Polysorbat] 60 MCG/0.3 ML Disp.syrin 60 Mcg SQ WEEKLYHS 01/19/18 Rx Zyvox (Linezolid) 600 Mg Tablet 600 Mg PO BID 01/19/18 Rx Vitamin D3 (Cholecalciferol (Vitamin D3)) 1,000 Unit Tablet 1 Tab PO DAILY 12/28/17 Rx [Calcium Acetate] 667 MG Capsule 1,334 Mg PO TIDWMEALS 12/28/17 Rx Mapap (Acetaminophen) 500 Mg Tablet 1,000 Mg PO TID 12/28/17 Rx Carvedilol (Carvedilol) 12.5 Mg Tablet 12.5 Mg PO BIDWMEALS 12/28/17 Rx Minoxidil 2.5 Mg Tablet 2.5 Mg PO BID 07/19/17 Rx Isosorbide Mononitrate Er (Isosorbide Mononitrate) 30 Mg Tab.er.24h 120 Mg PO DAILY 07/19/17 Rx Montelukast Sodium Tablet (Montelukast Sodium) 10 Mg Tablet 10 Mg PO QHS 05/07/17 Rx Polyethylene Glycol 3350 2,500 Gm Powder 17 Gm PO DAILY 04/09/17 Rx Nitrostat (Nitroglycerin) 0.4 Mg Tab.subl 0.4 Mg SL PRN Q5MIN PRN 12/30/16 Reported Plavix (Clopidogrel Bisulfate) 75 Mg Tablet 1 Tab PO DAILY 12/30/16 Reported Novolog Flexpen (Insulin Aspart) 100 Unit/1 Ml Insuln.pen 0 Units SQ TIDAC 11/26/16 Rx Take sub q tid ac: BS 151-200=2 unit, 201-250=3 unit, [id number], BS 301-350=6 unit, BS 351-400 =8 unit. BS>401 call MD Renetta Busch 10,000 Units Capsule (Lipase/Protease/Amylase) 1 Each Capsule. 2 Cap PO TIDWMEALS 11/26/16 Rx TAke 2 cap tid with meals Nephro-Donny Tablet (Folic Acid/Vitamin B Comp W-C) 0.8 Mg Tablet 1 Tab PO DAILY 07/07/16 Rx Benadryl (Diphenhydramine Hcl) 25 Mg Capsule 25 Mg PO PRN Q6HRS PRN 07/07/16 Rx Zoloft (Sertraline Hcl) 100 Mg Tablet 1 Tab PO DAILY 07/01/16 Reported Pantoprazole Sodium (Pantoprazole Sodium) 40 Mg Tablet. 1 Tab PO DAILY 07/01/16 Reported Losartan Potassium 100 Mg Tablet 100 Mg PO DAILY 01/14/16 Reported Aspir 81 (Aspirin) 81 Mg Tablet.dr 81 Mg PO DAILY 01/14/16 Reported Impression . IMPRESSION: 1. Acute respiratory failure multifactorial status post CODE BLUE 2. Abnormal chest x-ray with bilateral interstitial infiltrates consistent with viral pneumonia. improved and almost resolved 01/24 3. End-stage renal disease/hyperkalemia 4. Acute GI blood loss 5. Encephalopathy multifactorial 6. Leukocytosis suspect sepsis 7. Acute on chronic diastolic heart failure 8. Bacteremia Plan . Patient seen the emergency department Adjust minute ventilation to normalize pH Transfuse to maintain hemoglobin above 7 Antibiotics per ID Short and long-term prognosis is poor RN informed me that Dr. Ng is in touch with the family regarding advanced directive Doubt patient will survive Pressors for mean arterial pressure above 60 SAM DURANT MD Feb 12, 2021 09:35
--- NOTE | 2021-02-13 10:35 | PDOC3 ---
IM DISCHARGE SUMMARY Date of Admission Date of Admission Date of Admission: Jan 16, 2021 at 11:02 Date of Discharge Date of Discharge 02/12/21 Primary Diagnosis Primary Diagnosis 1. Acute metabolic encephalopathy. 2. Acute hypertensive crisis. t. 3. Elevated troponin. This may be due to demand ischemia and also end-stage renal disease may be contributing. 4. End-stage renal disease, on hemodialysis. 5. Coronary artery disease. 6. Diastolic congestive heart failure. 7. Physical deconditioning. 8. Asthma. 9. Gastroesophageal reflux disease. 10. Hyperlipidemia. 11. Severe pulmonary hypertension. 12. 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 13. History of depression. 14. 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 Monitor blood sugar. 15. History of secondary hyperparathyroidism. 16. Marijuana abuse 17. Acute hypoxic respiratory failure. 18. Cardiorespiratory arrest 19. Hyperkalemia 20. Covid-19 infection. 21. Acute GI bleeding. Consults Consults Margarito Youngblood MD; Mary Arteaga MD; Marek Hernandez MD; Zack Keane MD; Delbert Leahy MD; Ray Nino MD; Lenny Nino MD; River Gonzales MD Brief hospital course Brief hospital course This 60-year-old female who is known to have end-stage renal disease on hemodialysis and hypertension and coronary artery disease, was getting dialysis treatment this morning and she suddenly started screaming and became very combative. She started thrashing around 1-1/2 hours after dialysis treatment was started. Her systolic blood pressures sharply gloria to 240 and during this time, the patient's dialysis access site became disconnected as she was thrashing and there was significant bleeding from the site when EMS arrived. She was brought to the Emergency Room. Bleeding had stopped. Her blood pressure remained very high and her initial blood pressure was 232/118 mmHg. The patient was given IV hydralazine and IV lorazepam, IV labetalol, intramuscular Geodon to help her blood pressure come down and also to calm her down. She was eventually started on Cardene drip and this is helping her blood pressure to stay under control. She finally fell asleep before I came to the Emergency Room. She does open her eyes and wakes up, but unable to cooperate and remains confused. Because of the acute hypertensive crisis, acute metabolic encephalopathy with CT scan of head not showing any acute changes and showing only moderate nonspecific white matter changes and chronic right basal ganglia and bilateral thalamic lacunar infarcts and no evidence of leukocytosis and significant lab abnormalities. The patient was admitted for further evaluation and management. For more details regarding the past history, family history, social history, surgical history and other details, please refer to the H&P. COVID-19 infection. SARS-CoV-2 PCR test is positive. This may be also contributing to patient's poor appetite, body aches and confusion.I will also consult Dr. Ray Nino for Infectious Disease evaluation and management because of her fever of 103 degrees Fahrenheit. Her chest x-ray, urinalysis as well as SARS-CoV-2 antigen test is negative. Consult Dr. Nino for infectious disease evaluation and management. Patient is running low-grade fever. WBC count is 8.1. On IV Vancomycin. Cefepime has been changed to IV Zosyn. Bl c/s 06/09 Gram + cocci- ? contaminant. CT abd/pelvis 01/28/21 1. Small right pleural effusion and right greater than left posterior dependent and basilar atelectasis and possible superimposed pleural parenchymal scarring. There is no consolidated pneumonia. 2. Soft tissue stranding and small amount of soft tissue gas within the right axilla and base of the right neck. Correlate for recent instrumentation or catheterization. 3. Moderate colonic stool. 4. Mild bladder wall thickening. This may be due to underdistention or cystitis. Correlate with urinalysis. 5. Trace nonspecific pelvic free fluid and mild body wall edema. 6. Renal atrophy. US rt UE- negative for DVT. Acute metabolic encephalopathy-most likely due to COVID-19 infection and may be multifactorial.She did not respond well to the multiple medications that were tried during the hospitalization. She would frequently refuse to take meds or spit them out. She also had hypotension and issues with sedation.She was given Seroquel and and meds for anxiety such as Mirtazapine. Severe malnutrition-patient is not eating but also does not allow any IV fluids or IV access. I have encouraged her to drink Nepro. Change IV to PICC line. She is on PPN. Patient has constipation and has stool on CT of the abdomen. Has abdominal pain also. Change senna S to 2 tablets daily. Prognosis of this patient is extremely poor due to her multiple medical problem s. Hypotension - .Improved with med changes. Continue low-dose Seroquel. Constipation-not eating. Changed IV antibiotics to p.o. Augmentin. Patient is also refusing oral medications. D/w daughter Kerri -about patient's condition,treatment,options,prognosis on 02/11/21 and multiple times previously during the stay in the hospital.. Family wants to continue present care and hospice was also discussed with her. Because of her persistent agitation, encephalopathy, declining to eat and needing hemodialysis with agitation worse during dialysis at times and pulling on the catheters it would be appropriate to send her to a facility that can do in-house dialysis such as [facility] or [facility]. Consult LTACH. Patient does not qualify for LTACH. Looking for an in-house dialysis facility. D/w - yesterday. Due to her agitation and need for repeat HD on the same day frequently he recommends in house dialysis facility. Hyperkalemia with potassium of 7.4. Patient received urgent hemodialysis. Potassium came down to 5.4 during dialysis. Fever etiology not clear. WBC count is normal. Reconsult infectious disease specialist. Check labs, chest x-ray.Started on IV Zosyn. CODE BLUE x3 due to bradycardia secondary to vomiting during hemodialysis. Patient was intubated and then transferred to intensive care unit after staying in the ER for few hours.. She is on mechanical ventilation and on multiple drips. I had multiple discussions with multiple family members including patient's daughter Kerir Ruiz and patient's brother Ronnie Ruiz. They are aware that her prognosis is extremely poor. Want to continue aggressive care at this time including blood transfusion. They would like to continue CPR as needed. Acute GI bleeding-change Prevacid to IV Protonix. Possible aspiration. Initial chest x-ray was clear. Repeat chest x-ray in a.m. Start IV Zosyn. Acute respiratory failure-continue mechanical ventilation. Consult Dr. Keane for pulmonary evaluation and management. Acute hypotension and cardiac arrhythmia-consult catering coordinator. Acute blood loss anemia.-Transfuse as needed to keep hemoglobin above 7. Patient's condition continued to decline and family agreed to make her DNR and subsequently comfort care. She on 02/12/21. Medications Medications reviewed and reconciled for discharge. Home Meds Active Scripts Lactulose (LACTULOSE) 20 Gm/30 Ml Solution, 20 GM PO BID for 5 Days, #300 ML Prov:HERNAN ALFONSO MD 03/17/18 Lactobacillus Rhamnosus Gg (CULTURELLE) 1 Each Cap.sprink, 1 CAP PO BID, #120 CAP Prov:KENDELLKRISTINRUT Whitney INSURANCE RISK MANAGER 01/19/18 Metoclopramide Hcl (METOCLOPRAMIDE HCL) 5 Mg/1 Ml Vial, 5 MG IV PRN Q6HRS PRN for NAUSEA/VOMITING 2nd CHOICE, #120 EACH Prov:JERRYRUTJAIME Olson APRN 01/19/18 Metoclopramide Hcl (METOCLOPRAMIDE HCL) 5 Mg/1 Ml Vial, 5 MG IV BID66, #60 EACH Prov:RUT EDWARDS INSURANCE RISK MANAGER 01/19/18 Ondansetron Hcl/Pf (ONDANSETRON HCL 4 MG/2 ML VIAL) 4 Mg/2 Ml Vial, 4 MG IV PRN Q6HRS PRN for NAUSEA/VOMITING 1st Choice, #120 EACH Prov:JERRYRUT Whitney STEVEN 01/19/18 Buspirone Hcl (BUSPIRONE HCL) 5 Mg Tablet, 5 MG PO TID, #90 TAB Prov:JERRYRUTJAIME Olson APRN 01/19/18 Quetiapine Fumarate (QUETIAPINE FUMARATE) 25 Mg Tablet, 12.5 MG PO PRN Q6HRS PRN for AGITATION, #120 TAB Prov:RUT EDWARDS APRN 01/19/18 Quetiapine Fumarate (QUETIAPINE FUMARATE) 25 Mg Tablet, 25 MG PO QHS, #30 TAB Prov:JERRYRUTJAIME Olson APRN 01/19/18 Sertraline Hcl (SERTRALINE HCL) 50 Mg Tablet, 50 MG PO DAILY, #30 TAB Prov:RUT EDWARDS APRN 01/19/18 Hydrocodone Bit/Acetaminophen (HYDROCODONE-APAP 7.5-325 ) 1 Each Tablet, 1 TAB PO PRN Q8HRS PRN for PAIN, #120 TAB Prov:RUT EDWARDS APRN 01/19/18 Fentanyl Citrate/Pf (FENTANYL 0.05 MG/ML VIAL) 50 Mcg/1 Ml Vial, 50 MCG IV PRN Q4HRS PRN for PAIN, #120 EACH Prov:RUT EDWARDS TENISHA 01/19/18 [Darbepoetin Ty] 60 MCG/0.3 ML DISP.SYRIN No Conflict Check, 60 MCG SQ WEEKLYHS, #10 DIS.SYR Prov:RUT EDWARDS TENISHA 01/19/18 Linezolid (ZYVOX) 600 Mg Tablet, 600 MG PO BID, #180 TAB Prov:RUT EDWARDS INSURANCE RISK MANAGER 01/19/18 Cholecalciferol (Vitamin D3) (VITAMIN D3) 1,000 Unit Tablet, 1 TAB PO DAILY, #30 TAB 5 Refills Prov:RUT EDWARDS TENISHA 12/28/17 [Calcium Acetate] 667 MG CAPSULE No Conflict Check, 1334 MG PO TIDWMEALS, #180 Prov:ARIMAYARUT Whitney STEVEN 12/28/17 Acetaminophen (MAPAP) 500 Mg Tablet, 1000 MG PO TID, #180 TAB Prov:JERRYRUT Olson INSURANCE RISK MANAGER 12/28/17 Carvedilol (CARVEDILOL ) 12.5 Mg Tablet, 12.5 MG PO BIDWMEALS, #60 TAB Prov:JERRYRUT Olson INSURANCE RISK MANAGER 12/28/17 Minoxidil (MINOXIDIL) 2.5 Mg Tablet, 2.5 MG PO BID, #60 TAB Prov:KENDELL-BARBI,RUT Whitney INSURANCE RISK MANAGER 07/19/17 Isosorbide Mononitrate (ISOSORBIDE MONONITRATE ER) 30 Mg Tab.er.24h, 120 MG PO DAILY, #120 TAB.SR Prov:ARIMAYARUT Whitney INSURANCE RISK MANAGER 07/19/17 Montelukast Sodium (MONTELUKAST SODIUM TABLET ) 10 Mg Tablet, 10 MG PO QHS, #30 TAB Prov:ARIMAYARUT Olson INSURANCE RISK MANAGER 05/07/17 Polyethylene Glycol 3350 (POLYETHYLENE GLYCOL 3350) 2,500 Gm Powder, 17 GM PO DAILY, #527 GM 11 Refills Prov:KENDELLDeeBARBI,RUT Whitney STEVEN 04/09/17 Insulin Aspart (NOVOLOG FLEXPEN) 100 Unit/1 Ml Insuln.pen, 0 UNITS SQ TIDAC, #5 EACH Take sub q tid ac: BS 151-200=2 unit, 201-250=3 unit, BY113-503, BS 301-350=6 unit, BS 351-400 =8 unit. BS>401 call MD Prov:JERRYRUT M INSURANCE RISK MANAGER 11/26/16 Lipase/Protease/Amylase (ZENPEP DR 10,000 UNITS CAPSULE) 1 Each Capsule.dr, 2 CAP PO TIDWMEALS, #180 CAP TAke 2 cap tid with meals Prov:KENDELLCHARMAINERUT Whitney INSURANCE RISK MANAGER 11/26/16 Folic Acid/Vitamin B Comp W-C (NEPHRO-MARITA TABLET) 0.8 Mg Tablet, 1 TAB PO DAILY, #30 TAB Prov:KENDELLKRISTINRUT M INSURANCE RISK MANAGER 07/07/16 Diphenhydramine Hcl (BENADRYL) 25 Mg Capsule, 25 MG PO PRN Q6HRS PRN for ITCHING, #120 CAP Prov:KENDELLCHARMAINERUT Whitney INSURANCE RISK MANAGER 07/07/16 Reported Medications Lactulose (Lactulose) 10 Gm Packet, 10 GM PO Q6HRS, PKT 01/16/21 Lidocaine (Lidocaine) 15 Gm Cream..g., 1 DENTON TP TID PRN for PAIN for 30 Days, GM 0 Refills 01/16/21 Isosorbide Mononitrate (ISOSORBIDE MONONITRATE ER) 60 Mg Tab.er.24h, 1 TAB PO DAILY, #30 TAB 5 Refills 01/16/21 Vitamin A (Vitamin A) 2,400 Mcg Capsule, 1250 MCG PO WEEKLY, CAP 01/16/21 Hydrocodone Bit/Acetaminophen (HYDROCODONE-APAP 10-325 ) 1 Tab Tablet, 1 TAB PO PRN Q6HRS PRN for PAIN, TAB 0 Refills 01/16/21 Tramadol Hcl (ULTRAM) 50 Mg Tablet, 1 TAB PO BID MDD 2 Tablet(s) for 30 Days, #60 TAB 0 Refills 01/16/21 Hydralazine Hcl (HYDRALAZINE HCL) 50 Mg Tablet, 1 TAB PO TID, #90 TAB 5 Refills 01/16/21 Acetaminophen (ACETAMINOPHEN) 325 Mg Tablet, 2 TAB PO Q6HRS PRN for pain or fever for 30 Days, #30 TAB 0 Refills 01/16/21 Dextrose (GLUCOSE GEL) 38 Gm Gel..gram., 15 GM PO PRN for LOW BLOOD SUGAR, EACH 01/16/21 Sertraline Hcl (SERTRALINE HCL) 100 Mg Tablet, 100 MG PO DAILY for ANTI- DEPRESSANT, TAB 0 Refills 01/16/21 Glucagon,Human Recombinant (GLUCAGON EMERGENCY KIT) 1 Mg Kit, 1 MG IM PRN, #2 KIT 5 Refills 01/16/21 Sennosides/Docusate Sodium (SENNA PLUS TABLET) 1 Each Tablet, 2 TAB PO QHS for 14 Days, #28 TAB 0 Refills 01/16/21 Ezetimibe (ZETIA) 10 Mg Tablet, 1 TAB PO DAILY for 30 Days, #30 TAB 0 Refills 01/16/21 Sevelamer Carbonate (RENVELA) 800 Mg Tablet, 800 MG PO TIDWMEALS, TAB 01/16/21 Escitalopram Oxalate (ESCITALOPRAM OXALATE) 10 Mg Tablet, 1 TAB PO DAILY, #30 TAB 3 Refills 01/16/21 Pregabalin (LYRICA) 50 Mg Capsule, 25 MG PO QHS, CAP 0 Refills 01/16/21 [creon] No Conflict Check, 1 CAP PO TIDAC 01/16/21 Oxycodone HCl (Oxycodone HCl) 5 Mg Tablet, 5 MG PO Q8HRS PRN for PAIN, TAB 01/16/21 [zenpep] No Conflict Check, 10 MG PO TIDAC 01/16/21 Clonidine Hcl (CLONIDINE HCL) 0.2 Mg Tablet, 0.2 MG PO BID, TAB 01/16/21 Ondansetron Hcl (ZOFRAN) 4 Mg Tablet, 1 TAB PO Q4HRS PRN for NAUSEA/VOMITING, #20 TAB 01/16/21 Cinacalcet Hcl (SENSIPAR) 30 Mg Tablet, 1 TAB PO DAILY for 30 Days, #30 TAB 0 Refills 01/16/21 Mirtazapine (MIRTAZAPINE) 15 Mg Tablet, 1 TAB PO QHS, #30 TAB 3 Refills 01/16/21 Atorvastatin Calcium (ATORVASTATIN CALCIUM) 40 Mg Tablet, 80 MG PO HS for FOR CHOLESTEROL, #30 TAB 0 Refills 01/16/21 Minoxidil (MINOXIDIL) 2.5 Mg Tablet, 2.5 MG PO DAILY, TAB 01/16/21 Amlodipine Besylate (AMLODIPINE BESYLATE) 10 Mg Tablet, 10 MG PO DAILY, TAB 01/16/21 Lidocaine (Lidocaine PATCH ) 1 Each Adh..patch, 1 EACH TP DAILY for FOR LOCAL PAIN, PATCH REMOVE AFTER 12 HOURS 01/16/21 Albuterol Sulfate (PROAIR HFA INHALER) 8.5 Gm Hfa.aer.ad, 2 PUFF INH PRN Q6HRS PRN for SHORTNESS OF BREATH, EACH 0 Refills 01/16/21 Nitroglycerin (NITROSTAT) 0.4 Mg Tab.subl, 0.4 MG SL PRN Q5MIN PRN for CHEST PAIN, BOTTLE 12/30/16 Clopidogrel Bisulfate (PLAVIX) 75 Mg Tablet, 1 TAB PO DAILY, #90 TAB 1 Refill 12/30/16 Sertraline Hcl (ZOLOFT) 100 Mg Tablet, 1 TAB PO DAILY, #30 TAB 5 Refills 07/01/16 Pantoprazole Sodium (PANTOPRAZOLE SODIUM ) 40 Mg Tablet.dr, 1 TAB PO DAILY, #30 TAB 3 Refills 07/01/16 Losartan Potassium (LOSARTAN POTASSIUM) 100 Mg Tablet, 100 MG PO DAILY, TAB 01/14/16 Aspirin (ASPIR 81) 81 Mg Tablet.dr, 81 MG PO DAILY, TAB 01/14/16 Allergy Allergies Coded Allergies Type Severity Reaction Last Updated Verified amitriptyline Allergy Intermediate 11/09/16 Yes hydromorphone Allergy Intermediate LORTAB OK AT HOME 05/05/17 Yes lisinopril Allergy Intermediate 11/09/16 Yes metformin Allergy Intermediate 11/09/16 Yes I S O L A T I O N *CONTACT* Allergy Unknown 11/09/16 Yes Follow up Patient . Comments Discharge Management - 35 minutes. For other details please refer to discharge instructions Justicifation of Admission Dx: Justifications for Admission: Justification of Admission Dx: N/A GAURAV DANG MD Feb 13, 2021 10:35
== END 2021-02-12 05:05 | DRG 208 ==
LOC: ER 07:49 → ED HOLD 11:02 → 6 SOUTH 22:08 → 5 NORTH 02-05 15:15 → CVICU 02-11 12:56 → 1 WEST ICU 02-11 18:56
PROVIDERS: ADMIT Internal Medicine; ATTEND Internal Medicine
PROC: 5A1D70Z Performance of Urinary Filtration, Intermittent, Less than 6 Hours Per Day (ICD-10-PCS; 2021-02-01)
PROC: 5A1935Z Respiratory Ventilation, Less than 24 Consecutive Hours (ICD-10-PCS; principal; 2021-02-11)
PROC: 5A1D70Z Performance of Urinary Filtration, Intermittent, Less than 6 Hours Per Day (ICD-10-PCS; 2021-02-11)
PROC: 30233N1 Transfusion of Nonautologous Red Blood Cells into Peripheral Vein, Percutaneous Approach (ICD-10-PCS; 2021-02-11)
PROC: 0BH17EZ Insertion of Endotracheal Airway into Trachea, Via Natural or Artificial Opening (ICD-10-PCS; 2021-02-11)
DX: U07.1 COVID-19 (principal); I50.33 Acute on chronic diastolic (congestive) heart failure; I21.4 Non-ST elevation (NSTEMI) myocardial infarction; N18.6 End stage renal disease; G93.41 Metabolic encephalopathy; E43 Unspecified severe protein-calorie malnutrition; J12.82 Pneumonia due to coronavirus disease 2019; J96.00 Acute respiratory failure, unspecified whether with hypoxia or hypercapnia; J96.01 Acute respiratory failure with hypoxia; D62 Acute posthemorrhagic anemia; G93.49 Other encephalopathy; I13.2 Hypertensive heart and chronic kidney disease with heart failure and with stage 5 chronic kidney disease, or end stage renal disease; I16.1 Hypertensive emergency; I69.354 Hemiplegia and hemiparesis following cerebral infarction affecting left non-dominant side; K92.2 Gastrointestinal hemorrhage, unspecified; N25.81 Secondary hyperparathyroidism of renal origin; I24.8 Other forms of acute ischemic heart disease; E11.22 Type 2 diabetes mellitus with diabetic chronic kidney disease; E11.43 Type 2 diabetes mellitus with diabetic autonomic (poly)neuropathy; E11.51 Type 2 diabetes mellitus with diabetic peripheral angiopathy without gangrene; Z68.27 Body mass index [BMI] 27.0-27.9, adult; E78.5 Hyperlipidemia, unspecified; E87.5 Hyperkalemia; F12.10 Cannabis abuse, uncomplicated; F41.9 Anxiety disorder, unspecified; G89.29 Other chronic pain; I25.10 Atherosclerotic heart disease of native coronary artery without angina pectoris; I25.2 Old myocardial infarction; I27.20 Pulmonary hypertension, unspecified; J45.909 Unspecified asthma, uncomplicated; K21.9 Gastro-esophageal reflux disease without esophagitis; K31.84 Gastroparesis; K59.00 Constipation, unspecified; Z51.5 Encounter for palliative care; Z53.20 Procedure and treatment not carried out because of patient's decision for unspecified reasons; Z66 Do not resuscitate; E21.3 Hyperparathyroidism, unspecified; F32.9 Major depressive disorder, single episode, unspecified; M19.90 Unspecified osteoarthritis, unspecified site; R79.89 Other specified abnormal findings of blood chemistry; R94.5 Abnormal results of liver function studies; N26.1 Atrophy of kidney (terminal); I95.9 Hypotension, unspecified; Z82.49 Family history of ischemic heart disease and other diseases of the circulatory system; Z83.3 Family history of diabetes mellitus; Z86.74 Personal history of sudden cardiac arrest; Z87.11 Personal history of peptic ulcer disease; Z87.891 Personal history of nicotine dependence; Z90.49 Acquired absence of other specified parts of digestive tract; Z90.711 Acquired absence of uterus with remaining cervical stump; Z91.19 Patient's noncompliance with other medical treatment and regimen; Z95.1 Presence of aortocoronary bypass graft; Z99.2 Dependence on renal dialysis; Z90.710 Acquired absence of both cervix and uterus; Z88.5 Allergy status to narcotic agent; Z88.8 Allergy status to other drugs, medicaments and biological substances
CPT/HCPCS: 36415; 36430; 36569; 36600; 70450; 71045; 71250; 72020; 74018; 74176; 80048; 80053; 80202; 80307; 80329; 81001; 82140; 82553; 82805; 82962; 83605; 83690; 83735; 84100; 84484; 85007; 85014; 85018; 85025; 85610; 85730; 86706; 86850; 86900; 86901; 86920; 87040; 87077; 87086; 87205; 87340; 87426; 93005; 93971; 94002; 96372; 96374; 96375; 96376; C9113; G0480; J0171; J0360; J0461; J1200; J1265; J1815; J2060; J2250; J2543; J3010; J3370; J3486; J3490; J7040; J7050; J7060; P9016; U0003; U0005; 97110-GP; 97530-GO; 97530-GP; 97535-GO; 99285-25; G0378; J7030; J8597